=== PATIENT | female | born 1965 | race Caucasian/White ===

== ENCOUNTER → 2021-02-03 02:16 | Outpatient (CLI) | payer OTHER, SELFPAY ==
[2021-02-03 18:15] LABS: SARS-CoV-2 RNA PCR Negative
== END ==
PROVIDERS: PCP Family Medicine; Visit Provider Internal Medicine Gastroenterology
DX: Z01.812 Encounter for preprocedural laboratory examination (principal); Z20.822 Contact with and (suspected) exposure to COVID-19
CPT/HCPCS: C9803; U0003; U0005

== ENCOUNTER 2021-02-06 01:46 | Day surgery (SDC) | payer OTHER, SELFPAY ==
[2021-01-27 13:12] VITALS: BMI 24.2
[2021-02-06 09:16] VITALS: BP 130/64; PULSE 67; RESP 18; TEMP 36.4; O2SAT 99; BMI 24.5
--- NOTE | 2021-02-06 09:33 | PM.HPGS ---
History of Present Illness History of Present Illness Consent: Risks, benefits, and alternatives have been discussed and questions answered. Patient agrees to proceed with procedure. Chief complaint: hx of colon polyps Narrative: Cathi Cruz is a 55 year old female with a family history of colon cancer, Her father. She also had a polyp removed with 1 of her colonoscopies. Review of Systems Review of Systems: All systems reviewed & are unremarkable except as noted in HPI and below PMFSH Past Medical History Medical History Anxiety Bilateral adhesive capsulitis of shoulders BMI 26.0-26.9,adult History of breast cancer IBS (irritable bowel syndrome) PONV (postoperative nausea and vomiting) Surgical History Surgical History History of bilateral knee arthroplasty 2011, Dr. 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 Gender identity (if verbalized by the patient): Female Spiritual care concerns: No Meds Home Medications and Allergies Home Medications Medication Instructions Recorded Confirmed Type fexofenadine 180 mg tablet 90 mg PO DAILY 07/27/19 02/06/21 History citalopram 20 mg tablet 20 mg PO QPM #90 tablet 11/25/20 02/06/21 Rx cholecalciferol (vitamin D3) 50 mcg PO DAILY 01/27/21 02/06/21 History [Vitamin D3] melatonin 10 mg PO HS PRN 01/27/21 02/06/21 History Allergies Allergy/AdvReac Type Severity Reaction Status Date / Time No Known Allergies Allergy Mild Verified 02/06/21 09:07 Vital Signs Vital Signs - 24 hr 02/06/21 09:16 Temperature 36.4 C L Pulse Rate 67 Respiratory Rate 18 Blood Pressure 130/64 Pulse Oximetry 99 Exam Const: General: alert Orientation/consciousness: patient oriented x3 Resp: Auscultation: clear to auscultation bilaterally Cardio: Rhythm: regular rhythm GI: GI Palp: Yes Soft to palpation and No Tenderness to palpation present (GI) Neuro: General: patient oriented x3 Assessment and Plan Assessment and plan (1) Colon cancer screening: Code(s): Z12.11 - Encounter for screening for malignant neoplasm of colon Status: Acute Assessment and Plan: Colonoscopy with possible biopsy or polypectomy or cautery or injection of substances.
[2021-02-06] MEDS: LACTATED RINGERS 1,000 ML 150 ML IV CONT (09:36)
--- NOTE | 2021-02-06 09:36 | P.PNAN_ITS ---
Anes - Initial Pre Proc Eval Procedure: Operation Date: 02/06/21 10:00 Proposed Procedures p Screening Colonoscopy - Sanya Dodson MD Date/Time: 02/06/21 09:36 Surgeon: Sanya Dodson MD Pre Op Diagnosis: hx of colon polyps Patient Data Age: 55 Gender: F Height: 1.63 m Weight: 65 kg Last Vital Signs Temp 36.4 C L 02/06/21 09:16 Pulse 67 02/06/21 09:16 Resp 18 02/06/21 09:16 BP 130/64 02/06/21 09:16 Pulse Ox 99 02/06/21 09:16 Allergies Allergy/AdvReac Type Severity Reaction Status Date / Time No Known Allergies Allergy Mild Verified 02/06/21 09:07 Home Medications Medication Instructions Recorded Confirmed Type fexofenadine 180 mg tablet 90 mg PO DAILY 07/27/19 02/06/21 History citalopram 20 mg tablet 20 mg PO QPM #90 tablet 11/25/20 02/06/21 Rx cholecalciferol (vitamin D3) 50 mcg PO DAILY 01/27/21 02/06/21 History [Vitamin D3] melatonin 10 mg PO HS PRN 01/27/21 02/06/21 History Patient hx anesthesia problems: none Family hx anesthesia problems: none PMFSH Past Medical History Medical History Anxiety Bilateral adhesive capsulitis of shoulders BMI 26.0-26.9,adult History of breast cancer IBS (irritable bowel syndrome) PONV (postoperative nausea and vomiting) Surgical History Surgical History History of bilateral knee arthroplasty 2011, Dr. 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 Questions were solicited and answers provided to the satisfaction of the patient/family/POA.
[2021-02-06 10:35] VITALS: BP 98/53; PULSE 82; RESP 22; O2SAT 99
[2021-02-06 10:45] VITALS: BP 103/61; PULSE 64; RESP 14; O2SAT 100
[2021-02-06 10:55] VITALS: BP 121/58; PULSE 56; RESP 15; O2SAT 99
== END 2021-02-06 11:02 | disposition home or self-care (01) ==
PROVIDERS: PCP Family Medicine; Visit Provider Internal Medicine Gastroenterology
PROC: 0DJD8ZZ Inspection of Lower Intestinal Tract, Via Natural or Artificial Opening Endoscopic (ICD-10-PCS; CPT 45378; principal; 2021-02-06 10:00)
DX: Z12.11 Encounter for screening for malignant neoplasm of colon (principal); Z80.0 Family history of malignant neoplasm of digestive organs; K58.9 Irritable bowel syndrome, unspecified; F41.9 Anxiety disorder, unspecified; Z85.3 Personal history of malignant neoplasm of breast
CPT/HCPCS: 45378; C9803; J2704; J7120; U0003; U0005

== ENCOUNTER 2021-06-26 12:51 | Outpatient (CLI) | payer OTHER, SELFPAY ==
--- NOTE | ~2021-06-26 | DEXA_ITS ---
Bone Density Report Name: Cathi Cruz Age: 55 Sex: Female Ethnicity: White Date of : 1965 Indication: postmenopausal; height loss; cancer; Referring Provider: NEIDA GARDUNO Study: Bone densitometry was performed. Exam Date: June 26, 2021 Accession number: [id number] Bone Density: Region BMD T-score Z-score Classification AP Spine (L1-L4) 0.939 -1.0 0.2 Normal Femoral Neck (Left) 0.603 -2.2 -1.1 Osteopenia Total Hip (Left) 0.781 -1.3 -0.6 Osteopenia Total Hip Bilateral Avg 0.799 -1.2 -0.5 Osteopenia Femoral Neck (Right) 0.681 -1.5 -0.4 Osteopenia Total Hip (Right) 0.817 -1.0 -0.3 Normal World Health Organization criteria for BMD impression classify patients as: Normal (T-score at or above -1.0), Osteopenia (T-score between -1.0 and -2.5), or Osteoporosis (T-score at or below -2.5). 10-year Fracture Risk(1): Major Osteoporotic Fracture 8.9% Hip Fracture 1.2% Reported Risk Factors: [place] (), Neck BMD=0.603, BMI=25.3 (1) FRAX(R) Version 3.08. Fracture probability calculated for an untreated patient. Fracture probability may be lower if the patient has received treatment. Previous Exams: Region Exam Age BMD T-score BMD Change BMD Change Date g/cm2 vs Baseline vs Previous AP Spine(L1-L4) 06/26/2021 55 0.939 -1.0 -0.073(-7.3%)* -0.073(-7.3%)* 06/22/2016 50 1.012 -0.3 Total Hip(Left) 06/26/2021 55 0.781 -1.3 -0.080(-9.3%)* -0.080(-9.3%)* 06/22/2016 50 0.860 -0.7 Total Hip(Right) 06/26/2021 55 0.817 -1.0 -0.099(-10.8%) -0.099(-10.8%) 06/22/2016 50 0.915 -0.2 *Denotes significance at 95% confidence level, LSC for AP Spine = 0.022 g/cm2, LSC for Total Hip = 0.027 g/cm2 Clinical Information Provided by Patient: Has used the following medications: Vitamin D Has the following medical conditions: Cancer Patient maximum height was 65 Menopause Age: 49 No regular weight bearing exercise Does not regularly consume dairy products Drinks caffeinated beverages Onset of menses at age 12 Number of children 2 Impression: The patient has low bone mass, based on the Left Femoral Neck T-score. The patient has an estimated ten-year risk of hip fracture of 1.2% and an estimated ten-year risk of major fracture of 8.9%, based on the WHO FRAX algorithm. The BMD for the AP Spine(L1-L4) decreased, changing by -7.3% since the last DXA exam. The BMD for the Total Hip(Left) decreased, changing by -9.3% since the last DXA exam. Th
== END 2021-06-26 12:52 | disposition home or self-care (01) ==
LOC: ANHIMG 12:52
PROVIDERS: PCP Family Medicine; Visit Provider Physician Assistant
DX: M85.89 Other specified disorders of bone density and structure, multiple sites (principal)
CPT/HCPCS: 77080

== ENCOUNTER 2021-10-23 00:42 | Day surgery (SDC) | payer OTHER, SELFPAY ==
[2021-10-13 14:38] VITALS: BMI 24.8
--- NOTE | 2021-10-13 14:53 | PC.NURSE ---
Report to the Outpatient Waiting Room, entrance under the green pavilion located off [facility], at time 1130 on date 10/23/21. OR Time: 1330. - You will be asked a series of questions to screen for COVID 19 for your protection. - A mask is required within the hospital. - No visitors are allowed at this time. Preoperative COVID Testing Requirements: No COVID Test needed if: (proof is required; if not received patient will have Rapid Test prior to entry) - Patient has received COVID Vaccine at least 14 days prior to procedure date or - Patient has positive COVID test result within last 90 days of surgery date. COVID Test needed if above criteria is not met Patients may have clear liquids (water, carbonated beverages, clear teas, apple juice) until 3 hours prior to surgery with a maximum of 20 ounces. - No food from midnight until time of surgery Take the following medications with a SIP of water the morning of surgery: NONE Medications to discontinue per physician: VITAMINS/SUPPLEMENTS Date to take last dose: 10/19/21 Please no make-up, nail german, hairspray, perfume, deodorant, or body powder the day of surgery. No jewelry (including any body piercings) or valuables the day of surgery, leave them at home. Please take a shower or bath the night before, or the morning of, surgery with an antibacterial soap. Wear comfortable, loose fitting clothing. - Jewelry must be removed prior to entering the operating room. Rings and piercings that are not removed may be cut off. - The hospital will not accept responsibility for valuables. - Please leave all valuables, including medications, at home the day of surgery. If you are going home after surgery, a licensed team otr truck driver must drive you home. - NO public transportation without another adult. - We recommend that an adult stay with you for 24 hours following discharge. - We also recommend that you do not drive, make important decision, drink alcoholic beverages, or take any drugs that were not prescribed by your health care provider for at least 24 hours after your discharge time. Follow any additional instructions given to you from your surgeon. Telephone instructions given to RENU DURON and asked if any additional questions and then verbalized understanding. Patient advised to call surgeon office or pre surgery nurse liaison [phone] if any additional questions.
[2021-10-23] VITALS (10 sets, daily range): BP systolic 105–183; BP diastolic 58–90; PULSE 59–103; RESP 16–20; TEMP 36.2–36.6; O2SAT 94–100
--- NOTE | 2021-10-23 12:44 | WPDHPUPDATE1 ---
History and Physical Update Update Date/Time: 10/23/21 12:44 History and Physical has been reviewed, including an updated exam of the patient. There are NO changes in the patient's condition. Risks, benefits, and alternatives have been discussed and questions answered. Patient agrees to proceed with procedure.
[2021-10-23] MEDS: KETOROLAC 15 MG/ML VIAL (*BKC) IV PUSH (12:48)
[2021-10-23] MEDS: LACTATED RINGERS 1,000 ML 30 ML IV CONT ×3 (12:48→16:01)
--- NOTE | 2021-10-23 13:07 | SUR.PREOP ---
pt refused tylenol po,unable to swallow pills,dr sandra aware.
--- NOTE | 2021-10-23 13:08 | WPDANESEPPF ---
Anes - Initial Pre Proc Eval Procedure: Operation Date: 10/23/21 13:30 Proposed Procedures p Left Shoulder Arthroscopy, Subacromial Debridement - Giles Wong MD Date/Time: 10/23/21 13:08 Surgeon: Giles Wong MD Pre Op Diagnosis: left shoulder impingement Patient Data Age: 56 Gender: F Height: 1.63 m Weight: 66.9 kg Last Vital Signs Temp 36.6 C 10/23/21 12:11 Pulse 59 L 10/23/21 12:11 Resp 16 10/23/21 12:11 BP 143/62 H 10/23/21 12:11 Pulse Ox 100 10/23/21 12:11 Allergies Allergy/AdvReac Type Severity Reaction Status Date / Time oxycodone AdvReac Mild Nausea and Verified 10/23/21 12:29 Vomiting Home Medications Medication Instructions Recorded Confirmed Type fexofenadine 180 mg tablet 90 mg PO DAILY 07/27/19 10/23/21 History cholecalciferol (vitamin D3) 50 mcg PO DAILY 01/27/21 10/23/21 History [Vitamin D3] citalopram 20 mg tablet 20 mg PO QPM #90 tablet 07/19/21 10/23/21 Rx Patient hx anesthesia problems: post op nausea/vomiting Family hx anesthesia problems: none Results Review: All pre-operative results and documents have been reviewed as part of the pre-operative evaluation. [facility] Past Medical History Medical History Anxiety Bilateral adhesive capsulitis of shoulders BMI 26.0-26.9,adult History of breast cancer IBS (irritable bowel syndrome) PONV (postoperative nausea and vomiting) Surgical History Surgical History History of bilateral knee arthroplasty 2011, Dr. 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 Gender identity (if verbalized by the patient): Female Sexual Orientation (if Verbalized by the Patient): Straight or Heterosexual Spiritual care concerns: No Anes - Eval Final PreProcedure Day of Procedure 10/23/21 13:08 Patient weight: normal Heart: regular rate and rhythm Lungs: clear to auscultation Airway: Mallampati scale class II Neurological: alert and oriented Last oral intake: >/= 8 hours ASA classification: III Emergent: no Anesthetic plan: proceed Anesthesia type and monitoring: general ETT and standard monitoring Results Review: All pre-operative results and documents have been reviewed as part of the pre-operative evaluation. Informed Consent: The patient's anesthetic plan and its attendant risks and benefits were discussed with the patient/family/POA. Questions were solicited and answers provided to the satisfaction of the patient/family/POA.
--- NOTE | 2021-10-23 13:29 | WPDANESPNB ---
Anes - Peripheral Nerve Block Date/Time: 10/23/21 13:29 I have discussed with the patient/family/POA the placement of a peripheral nerve block for post-operative pain management, including associated risks, benefits, complications, and side effects. Alternative methods of post-operative analgesia were detailed. Questions were solicited and answers provided to the satisfaction of the patient/family/POA. Time-Out: A pre-procedural Time-Out was completed immediately before starting the procedure and confirmed: Patient Identification, Site, Procedure, Patient Position and the Availability of Requisite Equipment. Clinical Indications: Acute post-operative pain management requested by the operative surgeon. Nerve Block Insertion Note Anes-nerve block: interscalene left Patient position: other (sitting) Skin prep: chlorhexidine Needle: 22 gauge, stimulating, insulated echogenic needle. Needle length: 50 mm Technique: nerve stimulation lost at (mA) and ultrasound Technique comment: mid2mg, [id number],propofol 50mg Injectate: bupivacaine 0.5% with epi 5 mcg/ml (30ml) and dexamethasone (mg) (4) Observations: tolerated well Complications: none Procedure start time:: 1321 Procedure end time:: 1327
[2021-10-23] MEDS: ceFAZolin 2 GM/D5W 50 ML 2 GM/50 ML BAG IVPB (13:36)
[2021-10-23] MEDS: BUPIVACAINE/EPINEPHRINE 0.25% 10 ML VIAL 20 ML INFILTRATE (14:32)
--- NOTE | 2021-10-23 15:00 | W.PM.PROC2 ---
Procedure Note - Detailed Date of Procedure 10/23/21 Pre-op Diagnosis left shoulder impingement Post-op Diagnosis same Procedure Performed Left shoulder arthroscopy with arthroscopic subacromial decompression Surgeon Giles Wong MD Machine Operations Supervisor Svetlana Gold Anesthesia general and regional Description of Procedure The patient was identified and proper site identified. In the preop holding area the anesthesia team performed a right upper extremity block. She was then taken to the operating, transferred to the OR table and after general anesthetic induction and intubation placed into the semi beach chair position in the usual manner for a right shoulder procedure. Her head was secured taking care to neither rotate or extend the head neck. The right upper extremity was prepped and draped free in the usual sterile fashion. 30 cc of 1:100,000 epinephrine and saline solution was injected into the subacromial space. 10 cc of 0.25% Marcaine and epinephrine solution was injected in the area of the portals. Posterior portal was established and under direct visualization anterior outflow was created. The shoulder was introduced into the shoulder joint. Articular cartilage was in good shape as was the labrum, biceps anchor and rotator cuff insertion. The scope and outflow were then moved to the subacromial space and a lateral working portal created. There is quite a bit of thickened subacromial bursal tissue and a hypertrophic insertion of the CA ligament. The bursa was extensively debrided and the CA ligament insertion was released and resected as well with a combination of shaver and ArthroCare Wand. The Wand was used for hemostasis as well. The entire surgical area was irrigated with saline solution and the equipment was removed. Portals were closed with three 0 nylon suture and sterile dressings applied. He tolerated the procedure well. He was awakened, extubated and taken to recovery area in stable condition. There were no known intraoperative complications. Estimated blood loss was negligible. He received perioperative antibiotics. Estimated Blood Loss 5 Drains No Packing No Pathology none sent Complications No immediate complications Condition stable Disposition PACU
[2021-10-23] MEDS: SCOPOLAMINE 1.5 MG PATCH TRANSDERM (15:40)
[2021-10-23] MEDS: ONDANSETRON INJ 4 MG/2 ML VIAL IV PUSH (15:40)
== END 2021-10-23 17:45 | disposition home or self-care (01) ==
PROVIDERS: PCP Family Medicine; Visit Provider Orthopaedic Surgery
PROC: (CPT 29805; principal; 2021-10-23 13:30)
DX: M75.42 Impingement syndrome of left shoulder (principal); G89.18 Other acute postprocedural pain; M25.512 Pain in left shoulder; F41.9 Anxiety disorder, unspecified; Z85.3 Personal history of malignant neoplasm of breast; K58.9 Irritable bowel syndrome, unspecified
CPT/HCPCS: 64415; 29822; A4565; A9270; J0171; J0330; J0690; J1100; J1885; J2250; J2405; J2704; J3010; J7120

== ENCOUNTER 2021-11-27 08:15 | Outpatient (RCR) | payer OTHER, SELFPAY ==
[2021-10-25 10:34] VITALS: BP_SYST 100
--- NOTE | 2021-10-25 11:08 | PTOPEVAL ---
PHYSICAL THERAPY EVALUATION AND PLAN OF CARE Thank you for referring Cathi Cruz to [facility] [place].? The patient is scheduled to be seen for therapy? 2x/week for 5 weeks. Please review, sign, date and return this plan of care RAYMUNDO. I agree with and certify that the following plan of care is medically necessary. Referring Physician Date Attending Provider: Giles Wong MD Evaluation Outpatient Past Medical History Cardiovascular History Hx Hypercholesterolemia Yes Gastrointestinal History Hx Hemorrhoids Yes: SURGERY TO REMOVE Hx Irritable Bowel Yes Genitourinary History Hx Genitourinary Disorders No Significant History Musculoskeletal History Hx Orthopedic Surgery Yes: BILATERAL KNEE ARTHROSCOPY Hx Other Musculoskeletal Disorders Yes: JOINT PAIN Hematological History Hx Anemia Yes Endocrine History Hx Endocrine Disorders No Significant History HEENT History Hx Epistaxis Yes: NASAL CAUTERY Integumentary History Hx Skin Disorders No Significant History Reproductive History Hx Post Menopausal Yes Hx Other Reproductive Disorders Yes: LT BREAST LUMPECTOMY FOR BREAST CA Psychosocial History Hx Anxiety Yes Pain History Has Past Pain Affected Your Daily Life Yes Anesthesia History Hx Post-Op Nausea/Vomiting Yes Other History Hx Cancer Yes: BREAST CA Hx Radiation Therapy Yes Diagnosis left shoulder arthroscopy with subacromial decompression Onset 10/23/21 Subjective Information Prior to surgery she was Query Text:As Reported By Patient/ having a lot of difficulty Family reaching behind her back and doing things like pulling up her pants. Had surgery on 10/23 and states that today her shoulder hurts. Wore the sling for about a day and a half but otherwise does not feel like she needs to wear it. Self Report Pain Assessment Left Shoulder(s) Reported Pain Level 4 Pain Description Aching,Incisional Pain Frequency Acute,Continuous Other Pain Aggravating Factors using the arm Pain Score Pain Score 4: Self Report Interventions Used Interventions Used By Clinicians Exercise,Ice,Manual Therapy Techniques Upper Extremity Range of Motion Scapular/ Shoulder Range of Motion Left Shoulder Flexion - Passive 125 Shoulder Abduction - Passive 100 Shoulder Lateral Rotation - Passive 45 Upper Extremity Muscle Str
[2021-11-22 10:05] VITALS: BP_SYST 141
--- NOTE | 2021-11-22 10:43 | PTOPEVAL ---
PHYSICAL THERAPY DISCHARGE NOTE Thank you for referring Cathi Cruz to [facility].? Cathi is scheduled for one more visit to teach her how to perform passive stretching of left shoulder. Please review, sign, date and return this plan of care RAYMUNDO. I agree with and certify that the following plan of care is medically necessary. Referring Physician Date Attending Provider: Giles Wong MD Diagnosis left shoulder arthroscopy with subacromial decompression Onset 10/23/21 Subjective Information States that she is continuing Query Text:As Reported By Patient/ to have pain in the left Family shoulder. She is having a difficult time sleeping. She is able to do yard work ( raking, picking up sticks) with increased pain after. Self Report Pain Assessment Left Shoulder(s) Reported Pain Level 3 Pain Description Aching,Soreness Pain Frequency Acute,Continuous Pain Score Pain Score 3: Self Report Interventions Used Interventions Used By Clinicians Exercise,Manual Therapy Techniques Upper Extremity Range of Motion Scapular/ Shoulder Range of Motion Left Shoulder Flexion - Active 140 Shoulder Abduction - Passive 141 Shoulder Medial Rotation - Active L1 Query Text:Reach Behind the Back Shoulder Lateral Rotation - Active 65 Scapular/Shoulder Range of Motion right shoulder abduction; 145 Comments right shoulder external rotation: 65 Upper Extremity Muscle Strength Testing Scapular/Shoulder Right Shoulder Flexion Strength 4 Good Shoulder Abduction Strength 4 Good Shoulder Medial Rotation Strength 5 Normal Shoulder Lateral Rotation Strength 5 Normal Left Shoulder Flexion Strength 4- Good - Shoulder Abduction Strength 4- Good - Shoulder Medial Rotation Strength 5 Normal Shoulder Lateral Rotation Strength 5 Normal Manual Therapy Manual Therapy Side Left Patient Position Supine Manual Therapy Treatment Passive Stretching,Soft Tissue Mobilization Treatment Comments -GHJ mobilizations gr 3 at Query Text:Include Technique and 90deg abd into superior- Result of Technique inferior - scapular pinning with shoulder flexion to increase end range of motion with improved movement - sidelying scapular mobilization with STM into scapular blade; arm sweep x3x2
== END 2022-01-08 13:06 | disposition home or self-care (01) ==
LOC: ANHPT 08:15
PROVIDERS: PCP Family Medicine; Referring Provider Orthopaedic Surgery; Visit Provider Orthopaedic Surgery
DX: Z48.89 Encounter for other specified surgical aftercare (principal); Z98.890 Other specified postprocedural states
CPT/HCPCS: 97110; 97112; 97140; 97162

== ENCOUNTER → 2022-02-19 13:51 | Outpatient (CLI) | payer OTHER, SELFPAY ==
--- NOTE | ~2022-02-19 | US_ITS ---
EXAMINATION: US soft tissue LE RT DATE: 02/19/2022 14:08 INDICATION: Localized swelling, mass or lump at the right lower limb at the anterior proximal right l ower limb. TECHNIQUE: Multiple grayscale and Doppler ultrasound images of the region of concern at the anterior proximal right lower leg were obtained. COMPARISON: None FINDINGS: Normal appearance to the subcutaneous fat and underlying proximal tibia and musculature at the region of concern. No lipoma or other abnormal masses or fluid collections identified. IMPRESSION: 1. Normal study. No correlate identified for the reported palpable abnormality of concern at the ante rior proximal right lower leg. Reviewed, dictated and finalized at location B. IMPRESSION: 1. Normal study. No correlate identified for the reported palpable abnormality of concern at the anterior proximal right lower leg.
== END ==
PROVIDERS: PCP Family Medicine; Visit Provider Nurse Practitioner Family
DX: R22.41 Localized swelling, mass and lump, right lower limb (principal)
CPT/HCPCS: 76882

== ENCOUNTER 2023-12-06 09:33 | Outpatient (CLI) | payer BC, SELFPAY ==
--- NOTE | ~2023-12-06 | XR_ITS ---
EXAMINATION: XR ankle LT min 3V DATE: 12/06/2023 09:43 INDICATION: Posterolateral left ankle pain TECHNIQUE: Anteroposterior, oblique, mortise, and lateral views of the left ankle were obtained. COMPARISON: None. FINDINGS: Alignment is normal. No fracture. Mild osteoarthritis at the left ankle with mild subarticular cystl gato change at the lateral aspect of the talus along its articulation with the lateral malleolus. No a nkle joint effusion. The soft tissues are unremarkable. IMPRESSION: 1. 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 Reviewed, dictated and finalized at location A. IMPRESSION: 1. 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
== END 2023-12-06 09:34 ==
PROVIDERS: PCP Family Medicine; Visit Provider Physician Assistant Medical
DX: M25.472 Effusion, left ankle (principal); M19.072 Primary osteoarthritis, left ankle and foot
CPT/HCPCS: 73610

== ENCOUNTER 2023-12-24 14:32 | Outpatient (CLI) | payer BC, SELFPAY ==
--- NOTE | ~2023-12-24 | DEXA_ITS ---
Bone Density Report Name: RENU DURON Age: 58 Sex: Female Ethnicity: White Date of : 1965 Indication: osteopenia; height loss; cancer; postmenopausal Referring Provider: NEIDA BROWN Study: Bone densitometry was performed. Exam Date: December 24, 2023 Accession number: [id number] Bone Density: Region BMD T-score Z-score Classification AP Spine(L1-L4) 0.890 -1.4 -0.1 Osteopenia Femoral Neck (Left) 0.621 -2.1 -0.8 Osteopenia Total Hip (Left) 0.774 -1.4 -0.5 Osteopenia Femoral Neck (Right) 0.624 -2.0 -0.8 Osteopenia Total Hip (Right) 0.816 -1.0 -0.1 Normal Total Hip Mean 0.795 -1.2 -0.3 Osteopenia World Health Organization criteria for BMD impression classify patients as: Normal (T-score at or above -1.0), Osteopenia (T-score between -1.0 and -2.5), or Osteoporosis (T-score at or below -2.5). 10-year Fracture Risk(1): Major Osteoporotic Fracture 9.4% Hip Fracture 1.2% Reported Risk Factors: [place] (), Neck BMD=0.621, BMI=26.1 (1) FRAX(R) Version 3.08. Fracture probability calculated for an untreated patient. Fracture probability may be lower if the patient has received treatment. Previous Exams: Region Exam Age BMD T-score BMD Change BMD Change Date g/cm2 vs Baseline vs Previous AP Spine (L1-L4) 12/24/2023 58 0.890 -1.4 -0.122 (-12.1% -0.049 (-5.2%) 06/26/2021 55 0.939 -1.0 -0.073 (-7.3%) -0.073 (-7.3%) 06/22/2016 50 1.012 -0.3 Total Hip(Left) 12/24/2023 58 0.774 -1.4 -0.086 (-10.0% -0.006 (-0.8%) 06/26/2021 55 0.781 -1.3 -0.080 (-9.3%) -0.080 (-9.3%) 06/22/2016 50 0.860 -0.7 Total Hip(Right) 12/24/2023 58 0.816 -1.0 -0.099 (-10.8% 0.000 (0.0%) 06/26/2021 55 0.817 -1.0 -0.099 (-10.8% -0.099 (-10.8% 06/22/2016 50 0.915 -0.2 *Denotes significance at 95% confidence level, LSC for AP Spine = 0.022 g/cm2, LSC for Total Hip = 0.027 g/cm2 Clinical Information Provided by Patient: Has used the following medications: Vitamin D Has the following medical conditions: Cancer Patient maximum height was 65 Menopause Age: 50 No regular weight bearing exercise Drinks caffeinated beverages Onset of menses at age 12 Number of children 2 Impression: The patient has low bone mass, based on the Left Femoral Neck T-score. The patient has an estimated ten-year risk of hip fracture of 1.2% and an estimated ten-year risk of major fracture of 9.4%, based on the WHO FRAX
== END 2023-12-24 14:33 | disposition home or self-care (01) ==
LOC: ANHIMG 14:34
PROVIDERS: PCP Family Medicine; Visit Provider Physician Assistant
DX: M85.89 Other specified disorders of bone density and structure, multiple sites (principal)
CPT/HCPCS: 77080

== ENCOUNTER 2024-09-28 23:07 | Emergency (ER) | payer BC, SELFPAY ==
--- OUTSIDE RECORDS SUMMARY | 2024-09-28 23:11 | XMS_ITS | Referral Summary ---
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 Name Role Phone Grey Ayala MD Primary Care Provider Allergies No known active allergies Medications ALPRAZolam (XANAX) 0.25 mg tablet TK 1 T PO QD PRN 0 11/04/2018 Active citalopram (CeleXA) 20 mg tablet TK 1 T PO D 3 01/04/2019 Active Active Problems Problem Noted Date Diagnosed Date History of left breast cancer 01/22/2019 Urticaria 04/12/2014 Overview (12/06/2016): Urticaria Antinuclear factor positive 04/12/2014 Overview (12/07/2016): Positive FIFI Physical urticaria 07/08/2012 Overview (12/07/2016): Hives, physical Vitamin D deficiency 07/08/2012 Overview (12/07/2016): Vitamin d deficiency Knee pain 07/08/2012 Overview (12/07/2016): Knee pain, bilateral Gastroesophageal reflux disease 07/08/2012 Overview (12/07/2016): GERD (gastroesophageal reflux disease) Altered bowel function 07/08/2012 Overview (12/07/2016): Change in bowel habits Rhinitis 07/08/2012 Overview (12/07/2016): Rhinitis Autoimmune thyroiditis 07/08/2012 Overview (12/07/2016): Autoimmune thyroiditis Palpitations 07/08/2012 Overview (12/07/2016): Palpitations Immunizations Name Administration Dates Next Due Influenza, Trivalent, IM (MDV) 06/10/2014,2012 Tdap 06/17/2014 Social History Tobacco Use Types Packs/Day Years Used Date Smoking Tobacco: Never Tobacco Cessation:Counseling Given: Not Answered Alcohol Use Standard Drinks/Week Comments No 0 (1 standard drink = 0.6 oz pur e alcohol) Comments Unknown Sex and Gender Information Value Date Recorded Sex Assigned at Not on file 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 Gender Identity Not on file Sexual Orientation Not on file Last Filed Vital Signs Vital Sign Reading Time Taken Comments Blood Pressure 120/76 06/17/2014 3:08 PM CDT Pulse 60 06/17/2014 3:08 PM CDT Temperature - - Respiratory Rate - - Oxygen Saturation - - Inhaled Oxygen Concentration - - Weight 66.7 kg (147 lb 0.8 oz) 04/30/2023 11:54 AM CDT Height 165.1 cm (5' 5 ) 04/30/2023 11:54 AM CDT Body Mass Index 24.47 04/30/2023 11:54 AM CDT Plan of Treatment Not on file Procedures Procedure Name Priority Date/Time Associated Diagnosis Comments SCREENING MAMMOGRAM BILATERAL W NATHALIA Schedule Routine, Read Routine (OP Routine) 05/12/2024 11:54 AM CDT History of left breast cancer from Last 3 Months or Most Recently Relevant to Health Maintenance Results * Screening Mammogram Bilateral W Nathalia (05/12/2024 11:54 AM CDT) Anatomical Region Laterality Modality Breast Bilateral Mammography Narrative 05/13/2024 8:41 AM CDT Mammogram Technique: Bilateral Digital Breast Tomosynthesis, Bilateral C-view 2D Screening mammogram. ??Views obtained: ??bilateral craniocaudal and bilateral mediolateral oblique. ??Computer Aided Detection was performed. Mammogram Findings: The present examination has been compared to prior imaging studies performed at [facility] on 04/24/2022, 04/30/2023 and 05/30/2023. There are scattered areas of fibroglandular density. There are post breast conservation therapy changes in the left breast. There is no suspicious abnormality in either breast. Impression: There is no mammographic evidence of malignancy. Annual screening mammography is recommended. OVERALL FINAL ASSESSMENT: BI-RADS CATEGORY 2: ??Benign. Procedure Note Chanelle Dave MD - 05/13/2024 Mammogram Technique: Bilateral Digital Breast Tomosynthesis, Bilateral C-view 2D Screening mammogram. Views obtained: bilateral craniocaudal and bilateral mediolateral oblique. Computer Aided Detection was performed. Mammogram Findings: The present examination has been compared to prior imaging studies performed at [facility] on 04/24/2022, 04/30/2023 and 05/30/2023. There are scattered areas of fibroglandular density. There are post breast conservation therapy changes in the left breast. There is no suspicious abnormality in either breast. Impression: There is no mammographic evidence of malignancy. Annual screening mammography is recommended. OVERALL FINAL ASSESSMENT: BI-RADS CATEGORY 2: Benign. Vidya Patterson CAR MOVER IMG MAMMO PROCEDURES Final Result from Last 3 Months or Most Recently Relevant to Health Maintenance Insurance [facility] Address: [id number] [place] [id number] [facility] HMO [employer] ACCESS CHOICE ANTHEM ACCESS CHOICE Care Teams Oven Heater Helper Relationship Specialty Start Date End Date Grey Ayala MD [address] [facility] [address] [place] [address] PCP - General 12/27/17
--- OUTSIDE RECORDS SUMMARY | 2024-09-28 23:11 | XMS_ITS | Data Portability ---
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 Patient will come back in a year unless there are new symptoms. [email or web address] Not available 04/22/2020 16:11:36 04/27/2021 04/27/2021 Annual gynecological exam performed. Patient will come back in a year unless there are new symptoms. Not available 04/27/2021 16:18:56 04/30/2022 04/30/2022 Annual gynecological exam performed. Patient will come back in a year unless there are new symptoms. Not available 04/30/2022 12:14:51 05/10/2023 05/10/2023 Annual gynecological exam performed. Patient will come back in a year unless there are new symptoms. [email or web address] Not available 05/10/2023 09:14:00 06/22/2024 06/22/2024 Annual gynecological exam performed. Patient will come back in a year unless there are new symptoms. Not available 06/22/2024 10:32:19 Plan of Treatment Reminders Order Date Submit Date Provider Last Modified By Organization Details Last Modified Time Details Appointments None record ed. Lab None record ed. Referral None record ed. Procedures None record ed. Surgeries None record ed. Imaging None record ed. Medication Orders None record ed. Patient TargetsNo targets recorded. Patient Instructions Encounter Date Encounter Id Patient Instructions Last Modified By Organization Details Last Modified Time 04/22/2020 [id number] [email or web address] Not available 16:39:56 Reason for Referral None Reported. Results Created Date Observation Date Name Description Value Unit Range Abnormal Flag Note LastModifiedBy Organization Detail LastModifiedTime 04/22/20 20 04/26/2020 pap, LB Pap test thin prep Negati ve for Intrae pithel ial Lesion or Malign pipo normal ACCES ASHOK #: [id number] Sourc e: Cervi melissa/E ndoce rvica l LMP: 09/02 Date Taken : 04/22 Speci men Type: ThinP rep Vial Date Repor genie: 2019 Clini melissa Data: Cytot ech: Taya padgett CT( CP) Date Repor genie: 2019 Speci men Adequ acy: Satis facto ry for evalu ation Endoc ervic al/tr ansfo rmati on zone compo nent prese nt Gener al Categ oriza tion: NEGAT MEENAKSHI FOR INTRA EPITH ELIAL LESIO N OR MALIG SACHI Inter preta tion/ Resul t: Atrop hy This speci men has been chris zed by the ThinP rep Imagi ng Syste m, an inter activ e compu ter syste m which merissa ts the lab in the scree jyothi of ThinP rep Pap Test slide [facility] imagi ng, the slide was revie wed by a Cytot echno logis t and/o r Patho logis t. D N A A S S A Y S R E P O R T TEST NAME RESUL TS ----- ---- ----- -- HPV High Risk Scree n (TMA) ThinP rep Vial The human papil lomav irus (HPV) High Risk Scree n is an FDA-a pprov ed in-vi tro ampli fied nucle ic acid test for the quali tativ e detec tion of E6/E7 viral mRNA. Resul ts thomas luis be corre lated with patie nt prese ntati on, histo ry, cervi melissa cytol ogy and other clini melissa and labor atory findi ngs. See https ://[employer]/s ites/ defau lt/fi les/2 018-0 3/AW- 67448 _002_ 01.pd f for [facility] er infor matio n. Test perfo rmed by [facility], [address], [place] [address] , Gaby Hunt ra, , Labor atory Dire tor. HPV High Risk *HPV NOT DETEC GENIE (TYPE S 16, 18, 31, 33, 35, 39, 45, 51, 52, 56, 58, 59, 66, 68) *HPV: The human papil lomav irus (HPV) High Risk Brett cutler is an FDA-a pprov ed in-vi tro ampli fied nucle ic acid test for the quali tativ e detec tion of E6/E7 viral mRNA. [facility] shoul d be corre lated with patie nt prese ntati on, histo ry, cervi melissa cytol ogy and other clini melissa and labor atory findi ngs. See https ://[employer]/s ites/ defau lt/fi 018-0 3/- 91509 _002_ 01.pd f for [facility] er infor matio n. Test perfo rmed by [facility], [address], [place] [address] , Gaby Hunt ra, , Labor atory Dire tor. End of Repor t Techn ical servi phyllis provi ded by [facility], [address] [place] [address] Jose Jones MD, Labor Madroney Dire tor. Case revie wed and diagn osis rende red at [facility], [address] [place] [address] Jose Jones MD, Labor atory Dire tor. CONFI DENTI AL Not Available [facility] ([facility]) [address], [place], [address], 04/26/2020 09:02:30 04/22/20 20 04/24/2020 HPV DNA, high- risk HPV high risk NOT DETECT ED normal Not Available [facility] ([facility]) [address], [place], [address], 04/26/2020 09:02:31 04/27/20 21 04/27/2021 IMAGE GUIDE D PAP AND HPV REGAR DLESS image guided Pap, HPV regardless of Pap result SEE RESULT S BELOW CASE REPOR T: Cytol ogy Gynec ologi melissa Repor t Case: [id number] Autho cynthia sevilla Provi leonela: Luciano Bryant Colle cted: 04/27 1614 [employer] PAR[employer]OFESSIONAL Order ing Locat ion: [place] Patho logy Recei manuel: 04/28 0013 First Scree n: Lore Mayes, CT Speci men: Scree jyothi Pap - Image d, Cervi x STATE MENT OF ADEQU ACY: Satis facto ry for evalu ation Trans forma tion zone compo nent canno t be defin itive ly ident ified due to the prese nce of atrop hy or other hormo nal teresa es FINAL DIAGN OSIS: Negat meenakshi for Intra epith elial Lesio n or Oscar owen (NIL) Atrop hic cell irvin yun Elect karin ortiz micheal d by Lore Mayes, CT on 2020 at 10:41 PM ----- ----- ----- ----- ----- ----- ----- ----- ----- ----- ----- ----- ----- ----- ----- ----- ----- ---- HPV RESUL TS: HPV mRNA E6/E7 : No HPV mRNA Detec genie NOTE: This high risk HPV mRNA assay detec ts fourt een high- risk HPV types (16, 18, 31, 33, 35, 39, 45, 51, 52, 56, 58, 59, 66, 68) witho ut diffe renti ation . COMME NT: Note: This speci men was revie wed by a Cytot echno logis t and/o r Patho logis t (as indic ated in this repor t) after evalu ation using the Thinp rep Imagi ng Syste m. CLINI MELISSA INFOR MATIO N: Menst rual Statu s: LMP (if appli cable ): 015 Clini melissa Histo ry/Pr eviou s Pap: Type of Neopl marcelino (if appli cable ): Signi fican t Clini melissa Findi ngs: Other Histo ry: Hormo funmi (if appli cable ): PAP EDUCA BETH L NOTE: The Pap Test is a scree jyothi test with an inher ent false negat meenakshi rate. Liqui d-bas e sampl ing may decre ase, but will not elimi jamee, false negat meenakshi resul ts. A negat meenakshi resul t does not precl ude the prese nce and/o r devel opmen t of disea se, since the prese nce of abnor mal cells in the sampl e depen ds on the locat ion of the lesio n and sampl ing techn ique. Bella nued regul ar scree jyothi is the best metho d of cance r preve ntion . If repor genie cytol ogic findi ng do not corre late with physi melissa and/o r histo rical findi ngs, furth er inves tigat ion is recom anuja d, as clini chante warra nted. Not Available [facility] (Lab) [address], [place], [address], 04/29/2021 23:44:50 04/30/20 22 04/30/2022 IMAGE GUIDE D PAP AND HPV REGAR DLESS image guided Pap, HPV regardless of Pap result SEE RESULT S BELOW CASE REPOR T: Cytol ogy Gynec ologi melissa Repor t Case: [id number] Autho cynthia sevilla Provi leoneal: Luciano Bryant Colle cted: 04/30 1600 [employer]OFESSION[employer] Order ing Locat ion: [place] Patho landen Recei manuel: 05/01 0329 First Scree n: Bekah Ribeiro Rescr een: Shayna payne, Dany ennis, CT Speci men: Scree jyothi Pap - Image d, Cervi x STATE MENT OF ADEQU ACY: Satis facto ry for evalu ation Trans forma tion zone compo nent canno t be defin itive ly ident ified due to the prese nce of atrop hy or other hormo nal teresa es FINAL DIAGN OSIS: Negat meenakshi for Intra epith elial Lesio n or Oscar owen (NIL) . Atrop hic cell irvin rn. Elect karin ortiz micheal d by Shayna payne, Dany ennis, CT on 022 at 9:13 PM ----- ----- ----- ----- ----- ----- ----- ----- ----- ----- ----- ----- ----- ----- ----- ----- ----- ---- HPV RESUL TS: HPV mRNA E6/E7 : No HPV mRNA Detec genie NOTE: This high risk HPV mRNA assay detec ts fourt een high- risk HPV types (16, 18, 31, 33, 35, 39, 45, 51, 52, 56, 58, 59, 66, 68) witho ut diffe renti ation . COMME NT: Note: This speci men was revie wed by a Cytot echno logis t and/o r Patho logis t (as indic ated in this repor t) after evalu ation using the Thinp rep Imagi ng Syste m. CLINI MELISSA INFOR MATIO N: Menst rual Statu s: LMP (if appli cable ): Clini melissa Histo ry/Pr eviou s Pap: Type of Neopl marcelino (if appli cable ): Signi fican t Clini melissa Findi ngs: Other Histo ry: Hormo funmi (if appli cable ): PAP EDUCA BETH L NOTE: The Pap Test is a scree jyothi test with an inher ent false negat meenakshi rate. Liqui d-bas ed sampl ing may decre ase, but will not elimi jamee, false negat meenakshi resul ts. A negat meenakshi resul t does not precl ude the prese nce and/o r devel opmen t of disea se, since the prese nce of abnor mal cells in the sampl e depen ds on the locat ion of the lesio n and sampl ing techn ique. Bella nued regul ar scree jyothi is the best metho d of cance r preve ntion . If repor genie cytol ogic findi ng do not corre late with physi melissa and/o r histo rical findi ngs, furth er inves tigat ion is recom anuja d, as clini chante huerta nted. Not Available [facility] [address] [place], [address], 05/04/2022 22:15:21 05/10/20 23 05/10/2023 IMAGE GUIDE D PAP AND HPV REGAR DLESS image guided Pap, HPV regardless of Pap result SEE RESULT S BELOW CASE REPOR T: Cytol ogy Gynec ologi melissa Repor t Case: [id number] Autho cynthia sevilla Provi leonela: Luciano Bryant Colle cted: 05/10 1421 [employer] PAR[employer]OFESSIONAL Order ing Locat ion: [place] Patho logy Recei manuel: 05/13 0702 First Scree n: Franchesca García ret, CT Speci men: Scree jyothi Pap - Image d, Cervi x STATE MENT OF ADEQU ACY: Satis facto ry for evalu ation Trans forma tion zone compo nent canno t be defin itive ly ident ified due to the prese nce of atrop hy or other hormo nal teresa es FINAL DIAGN OSIS: Negat meenakshi for Intra epith elial Lesio n or Malig sachi (NIL) . Atrop hic cell irvin yun. Ken ortiz micheal d by Franchesca García ret, CT on 2022 at 10:35 AM ----- ----- ----- ----- ----- ----- ----- ----- ----- ----- ----- ----- ----- ----- ----- ----- ----- ---- HPV RESUL TS: HPV mRNA E6/E7 : No HPV mRNA Detec genie NOTE: This high risk HPV mRNA assay detec ts fourt een high- risk HPV types (16, 18, 31, 33, 35, 39, 45, 51, 52, 56, 58, 59, 66, 68) witho ut diffe renti ation . COMME NT: This speci men was revie wed by a Cytot echno logis t and/o r Patho logis t (as indic ated in this repor t) after evalu ation using the Thinp rep Imagi ng Syste m. CLINI MELISSA INFOR MATIO N: Menst rual Statu s: LMP (if appli cable ): Clini melissa Histo ry/Pr eviou s Pap: Type of Neopl marcelino (if appli cable ): Signi fican t Clini melissa Findi ngs: Other Histo ry: Hormo funmi (if appli cable ): PAP EDUCA BETH L NOTE: The Pap Test is a scree jyothi test with an inher ent false negat meenakshi rate. Liqui d-bas ed sampl ing may decre ase, but will not elimi jamee, false negat meenakshi resul ts. A negat meenakshi resul t does not precl ude the prese nce and/o r devel opmen t of disea se, since the prese nce of abnor mal cells in the sampl e depen ds on the locat ion of the lesio n and sampl ing techn ique. Bella nued regul ar scree jyothi is the best metho d of cance r preve ntion . If repor genie cytol ogic findi ng do not corre late with physi melissa and/o r histo rical findi ngs, fur er inves tigat ion is recom anuja d, as clini chante warra nted. Not Available [facility] (Lab) [address], [place], [address], 05/14/2023 11:38:07 06/22/20 24 06/22/2024 IMAGE GUIDE D PAP AND HPV REGAR DLESS image guided Pap, HPV regardless of Pap result SEE RESULT S BELOW CASE REPOR T: Cytol ogy Gynec ologi melissa Repor t Case: [id number] Autho cynthia di Provi leonela: Geoff Danielson MD Colle cted: 06/22 1320 Order ing Locat ion: [place] Patho logy Recei manuel: 06/23 0643 First Scree n: Hung Michael, CT Speci men: Brett roe Pap - Image d, Cervi x STATE MENT OF ADEQU ACY: Satis facto ry for evalu ation Trans forma tion zone compo nent canno t be defin itive ly ident ified due to the prese nce of atrop hy or other hormo nal teresa es ----- ----- ----- ----- ----- ----- ----- ----- ----- ----- ----- ----- ----- ----- ----- ----- ----- ---- FINAL DIAGN OSIS: Negat meenakshi for Intra epith elial Jenna cutler or Oscar owen (NIL) . Atrop kaia bryan rn. Elect karin burton d by Hung Michael, CT on 06/27 at 6:37 AM ----- ----- ----- ----- ----- ----- ----- ----- ----- ----- ----- ----- ----- ----- ----- ----- ----- ---- HPV RESUL TS: HPV mRNA E6/E7 : No HPV mRNA Detec genie NOTE: This high risk HPV mRNA assay detec ts fourt een high- risk HPV types (16, 18, 31, 33, 35, 39, 45, 51, 52, 56, 58, 59, 66, 68) witho ut diffe renti ation . COMME NT: This speci men was revie wed by a Cytot echno logis t and/o r Patho logis t (as indic ated in this repor t) after evalu ation using the Thinp rep Imagi ng Syste m. CLINI MELISSA INFOR MATIO N: Menst rual Statu s: LMP (if appli cable ): Clini melissa Histo ry/Pr eviou s Pap: Type of Neopl marcelino (if appli cable ): Signi fican t Clini melissa Findi ngs: Other Histo ry: Hormo funmi (if appli cable ): PAP EDUCA BETH L NOTE: The Pap Test is a scree jyothi test with an inher ent false negat meenakshi rate. Liqui d-bas ed sampl ing may decre ase, but will not elimi jamee, false negat meenakshi resul ts. A negat meenakshi resul t does not precl ude the prese nce and/o r devel opmen t of disea se, since the prese nce of abnor mal cells in the sampl e depen ds on the locat ion of the lesio n and sampl ing techn ique. Bella nued regul ar scree jyothi is the best metho d of cance r preve ntion . If repor genie cytol ogic findi ng do not corre late with physi melissa and/o r histo rical findi ngs, furth er inves tigat ion is recom anuja d, as clini chante warra nted. Not Available [facility] (Lab) [address], [place], [address], 06/27/2024 07:42:36 04/10/20 21 04/07/2021 MAMMO , scree jyothi, bilat eral No observ ation record ed. [facility] Breast [address], [address], 04/11/2021 12:16:02 Result Notes None recorded. 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 1 15:07:02 Malaise and fatigue [id number] Completed 201404/27/2021 Fatigue / Malaise;R ecorded Elsewhere : No Locati on: [facility] So urce: EHR Chron ic: N Practic e ID: 0001 Bill able Time: 11:00:00 AM Sofia Escobedo [facility] 1 15:06:44 Postmeno pausal bleeding [id number] Completed 201604/27/2021 Postmenop ausal bleeding; Recorded Elsewhere : No Locati on: [facility] So urce: EHR Chron ic: N Practic e ID: 0001 Bill able Time: 04:45:00 PM Sofia Escobedo [facility] 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 1 15:07:03 Blood leukocyt e number above referenc e range [id number] Completed 201804/27/2021 Elevated white blood cell count, unspecifi ed;Record ed Elsewhere : No Locati on: [facility] So urce: EHR Chron ic: N Practic e ID: 0001 Bill able Time: 05:00:00 PM Sofia Escobedo [facility] 1 15:06:42 Screenin g for malignan t neoplasm of cervix Completed 201704/27/2021 Screening for cervical ca;Record ed Elsewhere : No Locati on: [facility] So urce: EHR Chron ic: N Practic e ID: 0001 Bill able Time: 05:15:00 PM Sofia Escobedo [facility] 15:06:56 Overweig ht [id number] Completed 201404/27/2021 Overweigh t;Recorde d Elsewhere : No Locati on: [facility] So urce: EHR Chron ic: N Practic e ID: 0001 Bill able Time: 05:45:00 PM Sofia Escobedo [facility] 15:06:48 Screenin g for malignan t neoplasm of rectum Completed 201504/27/2021 Encounter for screening for malignant neoplasm of rectum;Re corded Elsewhere : No Locati on: [facility] So urce: EHR Chron ic: N Practic e ID: 0001 Bill able Time: 05:00:00 PM Sofia Escobedo [facility] 15:06:57 Evaluati on finding Completed 201704/27/2021 Hematuria , unspecifi ed;Record ed Elsewhere : No Locati on: [facility] So urce: EHR Chron ic: N Practic e ID: 0001 Bill able Time: 12:13:47 PM Sofia Escobedo [facility] 15:06:39 Microsco pic hematuri a [id number] Completed 201504/27/2021 Other microscop ic hematuria ;Recorded Elsewhere : No Locati on: [facility] So urce: EHR Chron ic: N Practic e ID: 0001 Bill able Time: 05:00:00 PM Sofia Escobedo [facility] 15:06:[address] Concept Completed 201704/27/2021 Encntr for general adult medical exam w/o abnormal findings; Recorded Elsewhere : No Locati on: [facility] So urce: EHR Chron ic: N Practic e ID: 0001 Bill able Time: 05:15:00 PM Sofia Escobedo [facility] 1 15:07:00 Mammogra phy abnormal [id number] Completed 201404/27/2021 Unspecifi ed abnormal mammogram ;Recorded Elsewhere : No Locati on: [facility] So urce: EHR Chron ic: N Practic e ID: 0001 Bill able Time: 10:42:23 AM Sofia Escobedo [facility] 1 15:06:46 Blood in urine [id number] Completed 201404/27/2021 Hematuria ;Recorded Elsewhere : No Locati on: [facility] So urce: EHR Chron ic: N Practic e ID: 0001 Bill able Time: 05:45:00 PM Sofia Escobedo [facility] 1 15:06:38 Finding of sensatio n of breast Completed 201504/27/2021 Mastodyni a;Recorde d Elsewhere : No Locati on: [facility] So urce: EHR Chron ic: N Practic e ID: 0001 Bill able Time: 05:00:00 PM Sofia Escobedo [facility] 1 15:06:41 Secondar y amenorrh ea [id number] Completed 201404/27/2021 Secondary amenorrhe a;Recorde d Elsewhere : No Locati on: [facility] So urce: EHR Chron ic: N Practic e ID: 0001 Bill able Time: 03:45:00 PM Sofia Escobedo [facility] 1 15:06:59 Pregnanc y test negative [id number] Completed 201604/27/2021 Encounter for test, result negative; Recorded Elsewhere : No Locati on: [facility] So urce: EHR Chron ic: N Practic e ID: 0001 Bill able Time: 03:30:00 PM Sofia Escobedo [facility] 15:06:53 Adult health examinat ion Completed 201404/27/2021 Routine general medical examinati on at a health care facility; Practice ID: 0001 Sofia Escobedo [facility] 15:06:36 Polyp of corpus uteri [id number] Completed 201604/27/2021 Polyp of corpus uteri;Pra ctice ID: 0001 Sofia Escobedo [facility] 15:06:[address] Concept Completed 201804/27/2021 Encounter for general adult medical exam w abnormal findings; Practice ID: 0001 Sofia Escobedo [facility] 15:06:54 Problem Notes None recorded. Procedures Surgical History Date Name Laterality Status Provider Name and Address Organization Details Recorded Time 05/12/20 24 [facility] 10:34:57 12/24/19 24 Most Recent Bone Density completed Sherin [facility] 06/22/2024 10:33:36 05/10/20 23 Date of Last Pap Smear completed Chanelle Monk [facility] 05/10/2023 09:16:28 01/01/20 21 completed [facility] 04/27/2021 16:19:43 01/01/20 21 Date of Last Colonoscopy completed [facility] 04/27/2021 16:19:44 03/18/20 19 completed [facility] 04/27/2021 16:22:31 Breast Biopsy completed [facility] 04/27/2021 16:19:[address] [facility] 04/27/2021 16:19:55 drainage of ganglion completed , [facility] 04/22/2020 16:15:23 Hysteroscopy completed , [facility] 04/22/2020 16:15:29 procedure on knee completed [facility] 04/22/2020 16:15:35 lumpectomy of breast completed [facility] 04/22/2020 16:15:43 procedure on tendon completed [facility] 04/22/2020 16:16:01 Colonoscopy [facility] 04/22/2020 16:16:07 Imaging Results Imaging Date Name Status LastModified by Organiz ation Details LastModified Time 04/07/2021 MAMMO, screening, bilateral completed [facility] [address] [place], [address], 04/11/2021 12:16:02 Procedure Notes None recorded. Medical Equipment None Reported. Allergies No known drug allergies Medications Name Sig Start Date Stop Date Status Note LastModified by Organization Details LastModified Time azithromy abhay 250 mg tablet TAKE 2 TABLETS BY MOUTH FOR 1 DAY THEN TAKE 1 TABLET BY MOUTH DAILY FOR 4 DAYS 04/30 completed Not Available Not Available Not Available ibuprofen 800 mg tablet TK 1 T PO TID PRF PAIN 05/10 completed Not Available Not Available Not Available hydrocodo ne 5 mg-acetam inophen 325 mg tablet TAKE 1 TABLET BY MOUTH EVERY 4 HOURS NEEDED FOR PAIN 04/30 completed Not Available Not Available Not Available acetamino phen 300 mg-codein e 30 mg tablet 04/22 completed Not Available Not Available Not Available fexofenad ine 180 mg tablet take 1 tablet by oral route every day 2014 active Prescrib ed Elsewher e: Yes [facility] By: ruddy carney DateTime : 07/22/20 15 03:45:00 PM Not Available Not Available Not Available doxepin 10 mg capsule take 1 capsule by oral route 3 times every day 02/21 completed Prescrib ed Elsewher e: Yes Loca tion: [facility] By: ruddy carney DateTime : 12/17/19 14 04:30:00 PM Not Available Not Available Not Available sulfameth oxazole 800 mg-trimet hoprim 160 mg tablet TAKE 1 TABLET BY MOUTH EVERY 12 HOURS FOR 5 DAYS 06/22 completed Not Available Not Available Not Available meloxicam 7.5 mg tablet TAKE 1 TABLET BY MOUTH DAILY 04/27 completed Not Available Not Available Not Available alprazola m 0.25 mg tablet 0.25 MG ORALLY DAILY NEEDED FOR ANXIETY active Not Available Not Available No t Available citalopra m 20 mg tablet 20 MG ORALLY EVERY EVENING active Not Available Not Available No t Available Metrogel Vaginal 0.75 % (37.5 mg/5 gram) insert 1 applicat orful by vaginal route for 5 nights at bedtime 12/31 completed Prescrib ed Elsewher e: No Locat ion: [facility] By: ruddy khanuntgianna DateTime : 12/08/19 17 02:18:15 PM Not Available Not Available Not Available tamoxifen 10 mg tablet take 1 tablet by oral route 2 times every day in the morning and evening 04/27 completed Prescrib ed Elsewher e: Yes Loca tion: [facility]ify By: su carney DateTime : 07/20/20 15 02:56:23 PM Not Available Not Available Not Available meclizine 25 mg tablet 25 MG ORALLY TWICE A DAY NEEDED FOR VERTIGO 06/22 completed Not Available Not Available Not Available ranitidin e 150 mg capsule take 1 capsule by oral route 2 times every day 04/27 completed Prescrib ed Elsewher e: Yes [facility] By: ruddy khanuntgianna DateTime : 07/22/20 15 03:45:00 PM Not Available Not Available Not Available ergocalci ferol (vitamin D2) 1,250 mcg (50,000 unit) capsule take 1 capsule by oral route every week 04/22 completed Not Available Not Available Not Available methylpre dnisolone 4 mg tablets in a dose pack TAKE 6 TABLETS ON DAY 1 DIRECTED ON PACKAGE AND DECREASE BY 1 TAB EACH DAY FOR A TOTAL OF 6 DAYS 06/22 completed Not Available Not Available Not Available ondansetr on 4 mg disintegr ating tablet DISSOLVE 1 TABLET ON THE TONGUE EVERY 6 HOURS 04/30 completed Not Available Not Available Not Available tamoxifen 20 mg tablet 04/22 completed Not Available Not Available Not Available Benadryl 25 mg capsule take 2 capsule by oral route every 4 - 6 hours as needed 07/22 completed Prescrib ed Elsewher e: Yes Loca tion: [facility] odify By: ruddy carney DateTime : 12/23/19 15 05:45:00 PM Not Available Not Available Not Available Xolair 150 mg subcutane ous solution 04/22 completed Not Available Not Available Not Available fexofenad ine 04/27 completed Not Available Not Available Not Available Jocelyn 30 mg/5 mL oral suspensio n 02/21 completed Prescrib ed Elsewher e: Yes Loca tion: [facility] odify By: ruddy carney DateTime : 12/17/19 14 04:30:00 PM Not Available Not Available Not Available Zyrtec 10 mg capsule 04/27 completed Prescrib ed Elsewher e: Yes Loca tion: [facility] odify By: whitney Encounberenice r DateTime : 01/18/20 16 05:00:00 PM Not Available Not Available Not Available Xolair 150 mg/mL subcutane ous syringe 04/22 completed Not Available Not Available Not Available Vitals Date Recorded Body height Body mass index (BMI) Body weight Systolic blood pressure Diastolic blood pressure Provider Name and Address Organization Details Last Updated DateTime 04/27/2021 157.48 cm 26 kg/m2 46189.12 g 134 mm[Hg] 73 mm[Hg] Sofia Escobedo [facility] 1 16:19:31 Date Recorded Body height Body mass index (BMI) Body weight Provider Name and Address Organization Details Last Updated DateTime 04/30/2022 160.66 cm 25.3 kg/m2 08194.3 g Sofia Escobedo [facility] 04/30/2022 12:15:13 Date Recorded Systolic blood pressure Diastolic blood pressure Provider Name and Address Organization Details Last Updated DateTime 04/30/2022 122 mm[Hg] 80 mm[Hg] Giovana Sánchez, [facility]- [address], [place], [address], [facility] 04/30/2022 12:27:04 Date Recorded Body height Body mass index (BMI) Body weight Systolic blood pressure Diastolic blood pressure Provider Name and Address Organization Details Last Updated DateTime 04/22/2020 162.56 cm 25.4 kg/m2 36934.67 g 125 mm[Hg] 78 mm[Hg] Jazz Thornton [facility] 0 16:23:48 Date Recorded Body height Body mass index (BMI) Body weight Systolic blood pressure Diastolic blood pressure Provider Name and Address Organization Details Last Updated DateTime 05/10/2023 160.66 cm 25 kg/m2 61674.12 g 123 mm[Hg] 72 mm[Hg] Chanelle Monk [facility] 3 09:14:39 Date Recorded Body height Body mass index (BMI) Body weight Systolic blood pressure Diastolic blood pressure Provider Name and Address Organization Details Last Updated DateTime 06/22/2024 160.66 cm 25.8 kg/m2 86052.08 g 122 mm[Hg] 68 mm[Hg] Sherin Amado [facility] 4 10:33:12 Social History Question Answer Notes LastModified by Organizat ion Details LastModified Time Tobacco Smoking Status Never Smoker Chanelle Monk null, [facility] 05/10/2023 09:16:01 Do You Have An Advance Directive? No Information n ot available 04/27/2021 What Is Your Level Of Alcohol Consumption? None Information not available 04/27/2021 Are You Blind Or Do You Have Difficulty Seeing? No Information n ot available 04/27/2021 What Is Your Level Of Caffeine Consumption? Moderate Information not available 04/27/2021 How Much Tobacco Do You Chew? None Information not available 04/27/2021 In The 14 Days Before Symptom Onset, Have You Had Close Contact With A Laboratory-confirm ed COVID-19 While That Case Was Ill? No Information n ot available 04/27/2021 In The 14 Days Before Symptom Onset, Have You Had Close Contact With A Person Who Is Under Investigation For COVID-19 While That Person Was Ill? No Information not available 04/27/2021 Have You Been To An Area Known To Be High Risk For COVID-19? No Information not available 04/27/2021 Are You Deaf Or Do You Have Serious Difficulty Hearing? No Information not available 04/27/2021 What Type Of Diet Are You Following? REGULAR Information n ot available 04/27/2021 What Is The Highest Grade Or Level Of School You Have Completed Or The Highest Degree You Have Received? [id number] Information not available 04/27/2021 What Is Your Occupation? Retired Information not available 04/30/2022 Are There Any Guns Present In Your Home? Yes Information not available 04/27/2021 Do You Use Protection During Sex? No Information not available 04/27/2021 Do You Use Your Seat Belt Or Car Seat Routinely? Yes Information not available 04/27/2021 Do You Have Smoke And Carbon Monoxide Detectors In Your Home? Yes Information not available 04/27/2021 How Much Tobacco Do You Smoke? No Information not available 04/27/2021 Do You Feel Stressed (tense, Restless, Nervous, Or Anxious, Or Unable To Sleep At Night)? [id number] [email or web address] Information not available 05/10/2023 Do You Use Any Illicit Or Recreational Drugs? No Information not available 04/27/2021 Do You Use Sunscreen Routinely? Yes Information not available 04/27/2021 Have You Used IV Drugs? No Information not available 04/27/2021 Sex: Unknown Functional Status Question Answer Note LastModified by Organizat ion Details LastModified Time Do you have difficulty walking or climbing stairs? No [email or web address] Information not available 05/10/2023 Are you able to walk? YESWOREST Information not available 04/27/2021 Are you able to care for yourself? Yes [email or web address] Information not available 05/10/2023 Do you have difficulty dressing or bathing? No [email or web address] Information not available 05/10/2023 What is your exercise level? Moderate Information not available 06/22/2024 Mental Status None recorded. Family History Relationship Description Onset Age of this Age Resolved Age Notes LastModified by Organization Details LastModified Time Mother Myocardial infarction [email or web address] Not available 04/22 16:13:03 Mother Hypertensive disorder [email or web address] Not available 2019 16:13:12 Mother Heart disease [email or web address] Not available 2019 16:14:13 Father Carcinoma in situ of lung Not available 10:25:23 Father Malignant tumor of colon Not available 2021 12:15:25 Maternal Aunt Disorder of thyroid gland [email or web address] Not available 2019 16:14:07 Maternal Grandfather Screening for cancer [email or web address] Not available 06/22 10:25:23 Medical History Condition Response Allergies (Food, seasonal, environmental ) Y Breast Cancer Y Gynecological History Statement/Question Response Date of Last Mammogram 05/12/2024 Date of LMP 05/03/2015 N On BCP's at Conception? N STIs/STDs N Was last menstrual period normal Y HPV Vaccine N Duration of Flow (days) 4 03/18/2019 Current Control Method Menopause Age at First Child 25 If Post Menopausal, Age at Menopause 49 Date of Last Colonoscopy 12/31/2020 Frequency of Cycle (Q days) 25 Most Recent Bone Density 12/24/2023 Sexually Active? Y Menses Monthly N Date of DEXA bone scan 12/24/2023 Age of first menstrual cycle 12 Date of Last Pap Smear 05/10/2023 Sexual Problems? N LMP Approximate 12/31/2020 N Obstetrics History GPAL:G 2 P 2 0 0 2 Type Value Full Term 2 Living 2 Total 2 Past Encounters Encounter ID Performer Location Encounter Start Date Encounter Closed Date Diagnosis/Indication Diagnosis SNOMED-CT Code Diagnosis ICD10 Code Diagnosis Note [id number] Giovana Sánchez [facility] [address],[place] [address] 04/22/2020 16:04:58 04/22/2020 16:51:23 Gynecologic examination 09419758 Z01.419 Take Calcium with Vitamin D 12-1500mg daily. Do monthly self breast exams. It is advised to get annual flu shot in the fall and she could obtain at [facility]. If you haven't received the Tdap vaccine in the last 10 years you should obtain one as well. Have mammogram yearly, bone density every 2-3 years and colonoscop y every 5-10 years depending on findings and history. Engage in daily exercise of low impact aerobic exercise 45-60 minutes 4-5 times weekly. Avoid tobacco and illicit drugs as well as using moderation with alcohol intake less than 1-2 8 oz beverages daily. This lifestyle behavior pattern will lead to less health conditions and longer life span. If BMI greater than 25 weight watchers or dietary consult advised. Questions have been answered. Patient appears to understand instructio ns, but if you have any further questions call or respond to this email [id number] Giovana Sánchez [facility] [address],[facility] [address] 04/27/2021 16:06:08 04/28/2021 09:38:41 Gynecologic examination [id number] Z01.419 Take Calcium with Vitamin D 12-1500mg daily. Do monthly self breast exams. It is advised to get annual flu shot in the fall and she could obtain at [facility]. If you haven't received the Tdap vaccine in the last 10 years you should obtain one as well. Have mammogram yearly, bone density every 2-3 years and colonoscop y every 5-10 years depending on findings and history. Engage in daily exercise of low impact aerobic exercise 45-60 minutes 4-5 times weekly. Avoid tobacco and illicit drugs as well as using moderation with alcohol intake less than 1-2 8 oz beverages daily. This lifestyle behavior pattern will lead to less health conditions and longer life span. If BMI greater than 25 weight watchers or dietary consult advised. Questions have been answered. Patient appears to understand instructio ns, but if you have any further questions call or respond to this email [facility] Mike Hicks scheduled- -managed by PCP [id number] Giovana Sánchez [facility] [address],[place] [address] 04/30/2022 12:07:12 04/30/2022 12:29:31 Gynecologic examination [id number] Z01.419 Z11.51 Take Calcium with Vitamin D 12-1500mg daily. Do monthly self breast exams. It is advised to get annual flu shot in the fall and she could obtain at [facility] or [facility]. If you haven't received the Tdap vaccine in the last 10 years you should obtain one as well. Have mammogram yearly, bone density every 2-3 years and colonoscop y every 5-10 years depending on findings and history. Engage in daily exercise of low impact aerobic exercise 45-60 minutes 4-5 times weekly. Avoid tobacco and illicit drugs as well as using moderation with alcohol intake less than 1-2 8 oz beverages daily. This lifestyle behavior pattern will lead to less health conditions and longer life span. If BMI greater than 25 weight watchers or dietary consult advised. Questions have been answered. Patient appears to understand instructio ns, but if you have any further questions call or respond to this email Pap/hpv sent (prefers sent) STD Screen declined Genetic Screen discussed Colon Screen UTD PCP Dexa Screen UTD PCP Routine Labs KSD PCPMammo PCP/[facility] n managed [id number] Giovana Sánchez [facility] [address] [address] 05/10/2023 09:02:52 05/10/2023 09:30:55 Gynecologic examination [id number] Z01.419 Z11.51 Take Calcium with Vitamin D 12-1500mg daily. Do monthly self breast exams. It is advised to get annual flu shot in the fall and she could obtain at [facility] or [facility] care clinic. If you haven't received the Tdap vaccine in the last 10 years you should obtain one as well. Have mammogram yearly, bone density every 2-3 years and colonoscop y every 5-10 years depending on findings and history. Engage in daily exercise of low impact aerobic exercise 45-60 minutes 4-5 times weekly. Avoid tobacco and illicit drugs as well as using moderation with alcohol intake less than 1-2 8 oz beverages daily. This lifestyle behavior pattern will lead to less health conditions and longer life span. If BMI greater than 25 weight watchers or dietary consult advised. Questions have been answered. Patient appears to understand instructio ns, but if you have any further questions call or respond to this email Pap/hpv sent (prefers sent)STD Screen declinedGe netic Screen discussedC olon Screen UTD PCPDexa Screen UTD PCPRoutine Labs UTD PCPMammo PCP/[facility] n managed [id number] Adolph Danielson MD [place] [address] [address] 06/22/2024 10:23:54 06/22/2024 11:16:50 Gynecologic examination [id number] Z01.419 Annual gynecologi melissa exam performed. Patient will come back in a year unless there are new symptoms. Suggest Calcium with Vitamin D if not eating in diet. Patient advised to get annual flu shot. Recommend yearly physicals and preform monthly breast exams. Genetic testing is available for patients with family history of cancer. Engage in safe sexual practices, use condoms. Encouraged to have daily exercise. Avoid tobacco and illicit drugs, moderation of alcohol. If BMI greater than 25 dietary consult advised. If you have any questions please call or email. mammogram- done colon cancer screening - done DEXA scan- done Pap smear- today laboratory evaluation - done Health Concerns Section Related Observation LastModified by Organization Detai ls LastModified Time None Recorded Concern Status LastModified by Organization Details LastModified Time None Recorded Advance Directives Directive N: Payers Encounter Date Sequence Insurance Name Policy Number Policy Catherine Covered Member ID Catherine Member ID Guarantor Name 04/22/2020 1 [employer] - CHOICE (POS II) [id number] Cathi Cruz [id number] Riky Cruz 04/27/2021 1 [employer] - CHOICE (POS II) [id number] Cathi Cruz [id number] Riky Cruz 04/30/2022 1 [employer] - CHOICE (POS II) [id number] Cathi Cruz [id number] Riky Cruz 05/10/2023 1 [place] [id number] Riky Cruz [id number] Riky Cruz 06/22/2024 1 [place] [id number] Riky Liler [id number] Riky Cruz Notes Date Note Type Note Provider Name and Address Organization Details Recorded Time 04/22/2020 text/html Annual GYNReport ed bypatient.History:n o gynecologic complaints Menstrual cycle:Normal menses Urinary symptoms:No hematuria; No incontinence Vulva:No genital lesion Vagina:Normal vaginal discharge Breast:No breast pain; No breast lump; No nipple discharge Current Contraception:Monog amous relationship; postmenopause Sexual complaints:No sexual complaints; No pain during intercourse; Normal libido Menopausal Symptoms:No menopausal symptoms; Normal vaginal lubrication Psychological symptoms:No depression; No anxiety; No PMDD Preventive measures:Encourage self breast examination; Encourage regular exercise; Encourage no tobacco use; Encourage regular mammograms starting age 40; Followed with Q3 year pap smear and high risk HPV typing; Mammogram performed within the past year; Up to date on colonoscopy screening; Diann 2019 Giovana Sánchez [facility] [address], [place], [address], [facility] 04/22/2020 16:40:35 04/27/2021 text/html Annual Binding Nicker Post-MenopausalRepo rted bypatient.Menopausa l Symptoms:no menopausal symptoms; normal vaginal lubrication Vaginal Bleeding:history of menopause having occurred; no history of post menopausal bleeding Urinary Symptoms:no hematuria; no incontinence; no nocturia; no urinary frequency Vulva:no genital lesion; no vulvar atrophy Vagina:normal vaginal discharge; no vaginal atrophy Breast:no breast lump; no nipple discharge; no breast pain Sexual Complaints:no sexual complaints Psychological Symptoms:no depression; no anxiety Preventive Measures:encourage regular mammograms starting age 40; encourage self breast examination; encourage regular exercise; encourage no tobacco use; mammogram performed within the past year (Still goes to [facility] to get exams & mammo's done.); history of recent colonoscopy; needs to schedule bone density (Has it scheduled) Giovana Sánchez [facility] [address], [place], [address], [facility] 04/27/2021 16:32:07 04/30/2022 text/html Annual Binding Nicker Post-MenopausalRepo rted bypatient.Menopausa l Symptoms:no menopausal symptoms; normal vaginal lubrication Vaginal Bleeding:history of menopause having occurred; no history of post menopausal bleeding Urinary Symptoms:no hematuria; no incontinence; no nocturia; no urinary frequency Vulva:no genital lesion; no vulvar atrophy Vagina:normal vaginal discharge; no vaginal atrophy Breast:no breast lump; no nipple discharge; no breast pain Sexual Complaints:no sexual complaints Psychological Symptoms:no depression; no anxiety Preventive Measures:encourage regular mammograms starting age 40; encourage self breast examination; encourage regular exercise; encourage no tobacco use; mammogram performed within the past year; history of recent colonoscopy Giovana Sánchez [address], [place], [address], [facility] 04/30/2022 12:29:06 05/10/2023 text/html Annual Binding Nicker Post-MenopausalRepo rted bypatient.Menopausa l Symptoms:no menopausal symptoms; normal vaginal lubrication Vaginal Bleeding:history of menopause having occurred; no history of post menopausal bleeding Urinary Symptoms:no hematuria; no incontinence; no nocturia; no urinary frequency Vulva:no genital lesion; no vulvar atrophy Vagina:normal vaginal discharge; no vaginal atrophy Breast:no breast lump; no nipple discharge; no breast pain Sexual Complaints:no sexual complaints Psychological Symptoms:no depression; no anxiety Preventive Measures:encourage regular mammograms starting age 40; encourage self breast examination; encourage regular exercise; encourage no tobacco use; mammogram performed within the past year; history of recent colonoscopy [address] [place], [address], [facility] 05/10/2023 09:30:08 06/22/2024 text/html Annual GYNReport ed bypatient.History:n o gynecologic complaints Urinary symptoms:No hematuria Vulva:No genital lesion Vagina:Normal vaginal discharge Breast:No breast pain; No breast lump Sexual complaints:No sexual complaints; No pain during intercourse Menopausal Symptoms:No menopausal symptoms; Normal vaginal lubrication Psychological symptoms:No depression; No anxiety Preventive measures:Encourage self breast examination; Encourage regular exercise Adolph Danielson MD [address], [place], [address], [facility] 06/22/2024 11:16:35 OBGyn Episode Ob Episode Information Episode Created Date Number of Fetuses Patient Bloodtype Patient rh Status Prepregnancy Weight lbs Domestic Partner Domestic Partner Phone Father Name Speeder Worker Status 04/22/20 20 1 CLOSED Fetus Data First Name Last Name Admitted to NICU Weight (g) Sex Living Outcome Pediatric Complications Fetus ID Race Codes Race Delivery Type [id number] Vaginal Delivery Santos Calculation Initial Santos Date Initial Exam Date Initial Exam Provider Initial Ultrasound Date Last Menstrual Period Date Ultra Sound Weeks Gestation 0 Eighteen To Twenty Week Santos Update Ultra Sound Date Fundal Height At Umbil Quickening Date Ultra Sound Latest Weeks Gestation Final Santos Confirmed By Final Santos Confirmed Date Final Santos Date Ultra Sound Latest Days Gestation 0 0 Menstrual History Last Menstrual Date Menses Monthly On Bcp Conception Prior Menses Frequency Hcg Plus Date Menarche Onset Age Delivery Information Delivery Date Delivery Type Labor Anesthesia Weeks Gestation Incision Type Labor Labor Length Hrs Delivered By Post Complications Tubal Sterilization Discharge Date Comments 1 Discharge Information Feeding Method Contraceptive Method Maternal HG B and HCT Levels Ob Episode Information Episode Created Date Number of Fetuses Patient Bloodtype Patient rh Status Prepregnancy Weight lbs Domestic Partner Domestic Partner Phone Father Name Speeder Worker Status 04/22/20 20 1 CLOSED Fetus Data First Name Last Name Admitted to NICU Weight (g) Sex Living Outcome Pediatric Complications Fetus ID Race Codes Race Delivery Type [id number] Vaginal Delivery Santos Calculation Initial Santos Date Initial Exam Date Initial Exam Provider Initial Ultrasound Date Last Menstrual Period Date Ultra Sound Weeks Gestation 0 Eighteen To Twenty Week Santos Update Ultra Sound Date Fundal Height At Umbil Quickening Date Ultra Sound Latest Weeks Gestation Final Santos Confirmed By Final Santos Confirmed Date Final Santos Date Ultra Sound Latest Days Gestation 0 0 Menstrual History Last Menstrual Date Menses Monthly On Bcp Conception Prior Menses Frequency Hcg Plus Date Menarche Onset Age Delivery Information Delivery Date Delivery Type Labor Anesthesia Weeks Gestation Incision Type Labor Labor Length Hrs Delivered By Post Complications Tubal Sterilization Discharge Date Comments 3 Discharge Information Feeding Method Contraceptive Method Maternal HG B and HCT Levels
--- OUTSIDE RECORDS SUMMARY | 2024-09-28 23:11 | XMS_ITS | Clinical Summary ---
Author Organization [facility] al Address [address] [place] [address] Care Team Providers Care Coding Clerks Supervisor Name Role Phone Grey Ayala MD Primary [...] Influenza, Trivalent, IM (MDV) 06/10/2014,2012 Tdap 06/17/2014 Surgical History Surgery Date Site/Laterality Comments HEMORRHOID SURGERY hemmoroids KNEE ARTHROSCOPY R/L knee arthroscopic BREAST LUMPECTOMY BREAST BIOPSY Medical History Medical History Date Comments Peptic ulcer Peptic ulcer dis ease Osteoarthritis Osteoarthritis Breast cancer (HCC) Family History Medical History Relation Name Comments Other Brother 2 Alive and well; Colon cancer Father Cancer -colon; /Cancer, colon; Cause of : Cancer, colon/Colon adenocarcinoma - (Added by TW Conv) Coronary artery disease Mother Ana M nary artery disease; Heart disease Mother Heart disease; Hyperlipidemia Mother Hyperlipidemi a; Hypertension Mother Hypertension; Relation Name Status Comments Brother 1 Alive Brother 2 Father Mother Social History Tobacco Use Types Packs/Day Years Used Date Smoking Tobacco: Never Tobacco Cessation:Counseling Given: Not Answered Alcohol Use Standard Drinks/Week Comments No 0 (1 standard drink = 0.6 oz pur e alcohol) Comments Unknown Sex and Gender Information Value Date Recorded Sex Assigned at Not on file Legal 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 Gender Identity Not on file Sexual Orientation Not on file Obstetrics History Last Filed Vital Signs Vital Sign Reading [...] 04/30/2023 11:54 AM CDT Plan of Treatment Health Maintenance Due Date Last Done Comments Cervical Cancer Screening 1964 Colon Cancer Screening-Colonoscopy 1964 Depression Screening 1964 Hepatitis C Screening 1964 Hepatitis B Screening 1982 Regular Well Visit/Exam 18-64 1982 Zoster Vaccine (1 of 2) 2014 Influenza Vaccine (#1) 2024 9, 06/18/2018, 06/10/2014, Additional history exists DTaP/Tdap/Td Vaccine (2 - Td or Tdap) 06/17/2024 06/17/2014 Breast Cancer Screening-Mammogram 05/12/2025 05/12/2024, 04/30/2023, 04/24/2022, Additional history exists Pneumococcal vaccine <65 Aged Out No longer eligible based on patient's age to complete this topic Procedures Procedure Name Priority Date/Time Associated Diagnosis [...] compared to prior imaging studies performed at [facility] on 04/24/2022, 04/30/2023 and 05/30/2023. There are [...] compared to prior imaging studies performed at [facility] on 04/24/2022, 04/30/2023 and 05/30/2023. There are scattered areas of fibroglandular density. There are post breast conservation therapy changes in the left breast. There is no suspicious abnormality in either breast. Impression: There is no mammographic evidence of malignancy. Annual screening mammography is recommended. OVERALL FINAL ASSESSMENT: BI-RADS CATEGORY 2: Benign. Result [facility] Vidya Patterson NP IMG MAMMO PROCEDURES Final Result from Last 3 Months or Most Recently Relevant to Health Maintenance Insurance [employer] [facility] ANTHEM ACCESS CHOICE Care Teams Coding Clerks Supervisor Relationship Specialty Start Date End Date Grey Ayala MD [address] [place] [address] PCP - General 12/27/17
--- OUTSIDE RECORDS SUMMARY | 2024-09-28 23:11 | XMS_ITS | Encounter Summary ---
Author Organization [facility] Address [address] [place] [address] Care Team Providers Care Mains And Service Supervisor Name Role Phone Unavailable Primary Care Provider Unavailabl e Encounter Details Date Type Department Care Team (Latest Contact Info) Description 08/06/2008 Outpatient Historical HIS [facility] MAT[facility]W Dunham, Leighann Galarza MD [address] [facility] [place] [address] Chronic Lymphocytic Thyroiditis Social History Tobacco Use Types Packs/Day Years Used Date Smoking Tobacco: Never Assessed Comments Unknown Sex and Gender Information Value Date Recorded Sex Assigned at Not on file Legal Sex Female 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 Gender Identity Not on file Sexual Orientation Not on file documented as of this encounter Plan of Treatment Not on file documented as of this encounter Procedures Procedure Name Priority Date/Time Associated Diagnosis Comments T3 FREE Routine 08/06/2008 11:22 AM REGIONAL COMMERCIAL SALES MANAGER TSH Routine 08/06/2008 11:22 AM REGIONAL COMMERCIAL SALES MANAGER T4 FREE Routine 08/06/2008 11:22 AM REGIONAL COMMERCIAL SALES MANAGER documented in this encounter Results * T4 FREE (08/06/2008 11:22 AM REGIONAL COMMERCIAL SALES MANAGER) T4 FREE 1.0 0.9 - 1.7 ng/dL [facility] Blood specimen (specimen) 08/06/2008 11:22 AM REGIONAL COMMERCIAL SALES MANAGER 08/06/2008 11:35 AM REGIONAL COMMERCIAL SALES MANAGER us Leighann Dunham MD CHEMISTRY ORDERABLES Final Result INTERFACE SYSTEM Refer to clinic/hospital department [facility] CLIA# [id number] [address] [place] [address] * TSH (08/06/2008 11:22 AM REGIONAL COMMERCIAL SALES MANAGER) TSH 1.80 0.27 - 4.20 uU/mL [facility] Blood specimen (specimen) 08/06/2008 11:22 AM REGIONAL COMMERCIAL SALES MANAGER 08/06/2008 11:35 AM REGIONAL COMMERCIAL SALES MANAGER us Leighann Dunham MD CHEMISTRY ORDERABLES Final Result Performing Organization Address City/[facility] de Phone Number INTERFACE SYSTEM Refer to clinic/hospital department [facility] CLIA# [id number] [address] [place] [address] * T3 FREE (08/06/2008 11:22 AM REGIONAL COMMERCIAL SALES MANAGER) T3 FREE 3.2 2.5 - 4.4 pg/mL [facility] Blood specimen (specimen) 08/06/2008 11:22 AM REGIONAL COMMERCIAL SALES MANAGER 08/06/2008 11:35 AM REGIONAL COMMERCIAL SALES MANAGER us Leighann Dunham MD CHEMISTRY ORDERABLES Final Result Performing Organization Address City/[facility] Co de Phone Number INTERFACE SYSTEM Refer to clinic/hospital department [facility] CLIA# [id number] [address] [address] documented in this encounter Visit Diagnoses Diagnosis Chronic lymphocytic thyroiditis documented in this encounter
--- OUTSIDE RECORDS SUMMARY | 2024-09-28 23:11 | XMS_ITS | Clinical Summary ---
Author Organization [facility] Address [address] [facility] Attn: Epic Prelude ADT [place]SE [place] [address] Care Team Providers Care Pals Nurse Name Role Phone Unavailable Primary Care Provider Unavailabl e Social History Tobacco Use Types Packs/Day Years Used Date Smoking Tobacco: Never Assessed Comments Unknown Sex and Gender Information Value Date Recorded Sex Assigned at Not on file Legal Sex Female 5:40 AM VERIFICATION REP Gender Identity Not on file Sexual Orientation Not on file Plan of Treatment Health Maintenance Due Date Last Done Comments DTAP/TDAP/TD VACCINES (1 - Tdap) 1983 HEPATITIS B VACCINES (1 of 3 - 19+ 3-dose series) 10/1983 CERVICAL CANCER SCREENING 1994 BREAST CANCER SCREENING 2004 COLORECTAL SCREENING 2009 Colorectal Cancer Screening 2009 FIT-DNA Q 3 years 2009 FIT/FOBT Q 1 year 2009 Flex Sig/CT Colonography Q 5 years 2009 ZOSTER VACCINE (1 of 2) 2014 INFLUENZA VACCINE (#1) 2024
[2024-09-29 00:02] VITALS: BP 138/62; PULSE 112; RESP 20; TEMP 37; O2SAT 100
[2024-09-29 02:30] LABS: Add Urine Microscopic? YES; Appearance Urine Turbid (Clear); Bilirubin Urine Negative (Negative); Blood Urine 3+ (Negative); Color Urine Dark Yellow (Yellow); Glucose Urine UA Negative (Negative); Ketones Urine Trace mg/dL (Negative); Leukocyte Esterase Ur 1+ LEU/UL (Negative); Need Manual Microscopic Reviewed; Nitrate Urine Negative (Negative); Non Pathogenic Casts >20; Protein Urine 3+ mg/dL (Negative); RBC Urine >100 /hpf (0-2); Specific Grav Ur 1.025 (1.001-1.035); Squamous Epithelial Cell Urine Moderate /hpf (Few)
[2024-09-29 02:38] LABS: Bacteria Urine 1+ /hpf; WBC Urine 51-75 /hpf (0-3)
--- NOTE | 2024-09-29 03:29 | ED_ITS ---
HPI - General Adult General Chief complaint: Unspecified Stated complaint: blood in urine Time Seen by Provider: 09/29/24 03:09 History of Present Illness HPI narrative: 58-year-old female with a past medical history including generalized anxiety disorder, GERD, fibromyalgia, breast cancer status post chemotherapy, currently being evaluated by multiple specialists for rheumatological disorders and potentially even malignancy such as lymphoma or blood cancer. Patient patient was recently on hydroxychloroquine for potential Sjogren's but she stopped this 3 weeks earlier after she started developing a 6 nerve palsy for which she is being evaluated by Ophthalmology. Today patient presents to the emergency room with chief complaint of some blood in her urine associated with urgency and frequency with urination for the last few days. She had blood work last week that showed leukocytosis and thrombocytopenia and she was concerned that this could be related. She is otherwise well-appearing, denies any chest pain, shortness a breath, abdominal pain, back pain, fever, chills, nausea or vomiting. No weakness or fatigue. Related Data Home Medications ?Medication ?Instructions ?Recorded ?Confirmed ?Last Taken ?Type fexofenadine 180 mg tablet 90 mg PO DAILY 07/27/19 09/21/24 10/23/21 History cholecalciferol (vitamin D3) 50 50 mcg PO DAILY 01/27/21 09/21/24 10/19/21 History mcg (2,000 unit) capsule (Vitamin D3) Allergies Allergy/AdvReac Type Severity Reaction Status Date / Time oxycodone AdvReac Mild Nausea and Verified 09/21/24 16:19 Vomiting Review of Systems 2 Review of Systems: As reviewed above in HPI [facility] Past Medical History Medical History Bilateral adhesive capsulitis of shoulders BMI 26.0-26.9,adult IBS (irritable bowel syndrome) Anxiety PONV (postoperative nausea and vomiting) History of breast cancer Surgical History Surgical History History of arthroscopic surgery of shoulder Left shoulder arthroscopic subacromial decompression October 23, 2021 History of bilateral knee arthroplasty 2011, Dr. 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 Mucous membranes moist. NECK: Supple. CHEST: [Clear to auscultation. No respiratory distress.] HEART: [Regular rate and rhythm]. No murmur heard. [Normal peripheral pulses.] ABDOMEN: [Soft, nondistended], [nontender], [No rigidity or guarding] EXTREMITIES: Normal range of motion. [No edema.] SKIN: Warm, dry, no rash. NEURO: [No focal deficits]. Alert and oriented [x3.] PSYCH: [Normal mood and affect.] Course Vital Signs Vital signs: Vital Signs Temperature 37.0 C 09/29/24 00:02 Pulse Rate 112 H 09/29/24 00:02 Respiratory Rate 20 09/29/24 00:02 Blood Pressure 138/62 09/29/24 00:02 Pulse Oximetry 100 09/29/24 00:02 Oxygen Delivery Room Air 09/29/24 00:02 Temperature 37.0 C 09/29/24 00:02 Pulse Rate 112 H 09/29/24 00:02 Respiratory Rate 20 09/29/24 00:02 Blood Pressure 138/62 09/29/24 00:02 Pulse Oximetry 100 09/29/24 00:02 Oxygen Delivery Room Air 09/29/24 00:02 Medical Decision Making [facility] Narrative Medical decision making narrative: 58-year-old female with a past medical history including G 80, GERD, fibromyalgia, breast cancer status post radiation and chemotherapy, Sjogren's disease, currently being evaluated for malignancy with referral to [facility]. Patient presents to the emergency department today with urinary tract infection symptoms including urgency and frequency for the last day associated with some blood in her urine. She was concerned that this could be a consequence or related to her low platelets that were recently discovered on laboratory studies on outpatient basis. She is otherwise well-appearing, not any acute distress, no fever, back pain, abdominal pain, she has a soft nontender abdomen otherwise appears in her normal state of health. Urinalysis obtained in triage which does show some red blood cells in addition to leukocytes and bacteria consistent with a potential urinary tract infection. Given her recent laboratory derangements we did order repeat including CBC, CMP and PT, PTT. She is given a fluid bolus and started on IV Rocephin for her urinary tract infection while workup underway. Patient's workup shows significant derangements including a leukocytosis of 115,000 almost double what it was just 5 days prior. Anemia of 8.3 lower than 9.9 previously. Platelets of 27. Creatinine 1.1, ALT and AST slightly elevated, normal bilirubin. Given patient's significantly drastic rise of leukocytosis I went ahead and consulted the bone marrow transplant team and Hematology/Oncology over the [facility] for recommendations and options for care. We presently do not have Hematology on staff for the next 2 days here. I spoke to Dr. Kay who felt that patient warranted high priority urgent transfer to their facility for evaluation and treatment initiation on the bone marrow transplant service team. Recommendations to obtain flow cytometry of available to assist in addition to uric acid and phosphorus levels. Recommendations for maintenance IV fluids to prevent glucose stasis with her rapid rising leukocytes. Patient was accepted to their facility under Dr. Vergara pending bed availability. I went and re-evaluated the patient who was made aware of the workup results and plan of care for transfer to tertiary care center with Hematology-Oncology services. Patient was appreciative and agreeable to transfer process at this time and awaiting bed availability. She was given Toradol for some mild back pain and started on maintenance IV fluids while additional laboratory studies ordered. Medical Records Medical records reviewed: Yes I reviewed the external patient's medical records. Vital Signs Vital Signs: Vital Signs Temperature 37.0 C 09/29/24 00:02 Pulse Rate 112 H 09/29/24 00:02 Respiratory Rate 20 09/29/24 00:02 Blood Pressure 138/62 09/29/24 00:02 Pulse Oximetry 100 09/29/24 00:02 Oxygen Delivery Room Air 09/29/24 00:02 Temperature 37.0 C 09/29/24 00:02 Pulse Rate 112 H 09/29/24 00:02 Respiratory Rate 20 09/29/24 00:02 Blood Pressure 138/62 09/29/24 00:02 Pulse Oximetry 100 09/29/24 00:02 Oxygen Delivery Room Air 09/29/24 00:02 Lab Data Lab results reviewed: Yes I reviewed the patient's lab results. 09/29/24 04:31 09/29/24 04:31 Labs: Lab Results 09/29/24 09/29/24 Range/Units 02:04 04:31 WBC 114.9 H* (4.5-10.0) K/mm3 RBC 2.41 L (4.2-5.4) M/mm3 Hgb 8.3 L (12.0-15.0) g/dL Hct 25.3 L (37.0-47.0) % MCV 105.0 H (80-100) fl MCH 34.4 H (26-34) pg MCHC 32.8 (32-36) g/dl RDW 14.6 H (11.5-14.5) % Plt Count 27 L (150-375) k/mm3 MPV 11.6 H (7.4-10.4) fl Immature Gran % (Auto) Not Reportable Neut % (Auto) Not Reportable Lymph % (Auto) Not Reportable Elliott % (Auto) Not Reportable Eos % (Auto) Not Reportable Baso % (Auto) Not Reportable Lymph # (Auto) Not Reportable Elliott # (Auto) Not Reportable Eos # (Auto) Not Reportable Baso # (Auto) Not Reportable Abs Immat Gran (auto) Not Reportable Absolute Neuts (auto) Not Reportable Absolute Nucleated RBC Not Reportable Total Counted 100 Neutrophils % (Manual) 3 L (46-73) % Band Neutrophils % 4 (0-6) % Lymphocytes % (Manual) 22.0 (18-44) % Monocytes % (Manual) 66 H (3-9) % Metamyelocytes % 5 % Nucleated RBC % Not Reportable Abs Neuts (Manual) 8.04 H (1.7-7.2) K/mm3 Abs Lymphs (Manual) 25.27 H (1.1-4.5) K/mm3 Abs Monocytes (Manual) 75.83 H (0.1-0.90) K/mm3 Nucleated RBCs 1 % Atypical Lymphocytes Present Smudge Cells Present Platelet Estimate Decreased (Adequate) % Immature Plt Fraction 24.8 H (0.9-11.2) % Schistocytes None seen PT 16.6 H (11.1-14.7) Seconds INR 1.3 APTT 42.9 H (22.3-36.8) Seconds Sodium 135 L (137-145) mmol/L Potassium 3.7 (3.4-5.0) mmol/L Chloride 98 (98-107) mmol/L Carbon Dioxide 31 H (22-30) mmol/L Anion Gap 6 (4-12) mmol/L BUN 12 (7-17) mg/dL Creatinine 1.10 H (0.7-1.0) mg/dL Estim Creat Clear Calc 42 ml/min Estimated GFR 51 L (59 - ) Glucose 121 H (65-110) mg/dL Calcium 8.8 (8.4-10.2) mg/dL Total Bilirubin 0.7 (0.2-1.3) mg/dL AST 39 H (14-36) U/L ALT 42 H (6-35) U/L Alkaline Phosphatase 114 (38-126) U/L Total Protein 8.0 (6.3-8.2) g/dL Albumin 3.7 (3.5-5.1) g/dL Urine Color Dark yellow (Yellow) Urine Appearance Turbid H (Clear) Urine pH 5.0 (5.0-9.0) Ur Specific [place] 1.025 (1.001-1.035) Urine Protein 3+ H (Negative) mg/dL Urine Glucose (UA) Negative (Negative) mg/dL Urine Ketones Trace H (Negative) mg/dL Ur Blood (Man) 3+ H (Negative) Urine Nitrate Negative (Negative) Urine Bilirubin Negative (Negative) Urine Urobilinogen 1.0 (<2.0) mg/dL Add Ur Microanalysis Reviewed Leukocyte Esterase Rfl 1+ H (Negative) DONALD/UL Urine RBC >100 H (0-2) /hpf Urine WBC 51-75 H (0-3) /hpf Ur Squamous Epith Cells Moderate (Few) /hpf Urine Bacteria 1+ /hpf Urine Casts >20 Discharge Plan Discharge Clinical Impression: Hematologic malignancy, Urinary tract infection, Thrombocytopenia Leukocytosis Qualifiers: Leukocytosis type: monocytosis Qualified Code(s): D72.821 - Monocytosis (symptomatic) Patient Disposition: Acute Care Hospital Condition: Guarded Prognosis Patient Language: Norwegian Prescriptions: No Action alprazolam 0.25 mg tablet 0.25 mg PO DAILY PRN (Reason: anxiety) Qty: 10 0RF clobetasol 0.05 % cream 1 applic topical BID 14 Days Qty: 30 1RF fexofenadine 180 mg tablet 90 mg PO DAILY cholecalciferol (vitamin D3) [Vitamin D3] 50 mcg (2,000 unit) Capsule 50 mcg PO DAILY citalopram 20 mg tablet 20 mg PO QPM Qty: 90 2RF Follow-up/Referrals: Grey Ayala MD [Primary Care Provider] - Time of Disposition: 05:58
--- OUTSIDE RECORDS SUMMARY | 2024-09-29 03:32 | XMS_ITS | Referral Summary ---
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 on 04/24/2022, 04/30/2023 and 05/30/2023. [...] compared to prior imaging studies performed at [facility] on 04/24/2022, 04/30/2023 and 05/30/2023. There are scattered areas of fibroglandular density. There are post breast conservation therapy changes in the left breast. There is no suspicious abnormality in either breast. Impression: There is no mammographic evidence of malignancy. Annual screening mammography is recommended. OVERALL FINAL ASSESSMENT: BI-RADS CATEGORY 2: Benign. Vidya Patterson CRIMPING MACHINE OPERATOR IMG MAMMO PROCEDURES Final Result from Last 3 Months or Most Recently Relevant to Health Maintenance Insurance [facility] OPEN ACCESS [facility] [employer] ACCESS CHOICE ANTHEM ACCESS CHOICE Care Teams Resident Care Spec Relationship Specialty Start Date End Date Grey Ayala MD [address] [facility] [address] [place] [address] PCP - General 12/27/17
--- OUTSIDE RECORDS SUMMARY | 2024-09-29 03:32 | XMS_ITS | Clinical Summary ---
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
--- OUTSIDE RECORDS SUMMARY | 2024-09-29 03:32 | XMS_ITS | Encounter Summary ---
Author Organization [facility] Address [address] [place] [address] Care Team Providers Care Computer Sciences Professor Name Role Phone Unavailable Primary Care Provider Unavailabl e Encounter Details Date Type Department Care Team (Latest Contact Info) Description 08/06/2008 Outpatient Historical HIS [facility] MATTHEW Dunham, Leighann Galarza MD [address] [facility] [place] [address] Chronic Lymphocytic Thyroiditis Social History Tobacco Use Types Packs/Day Years Used Date Smoking Tobacco: Never Assessed Comments Unknown Sex and Gender Information Value Date Recorded Sex Assigned at Not on file 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 Gender Identity Not on file Sexual Orientation Not on file documented as of this encounter Plan of Treatment Not on file documented as of this encounter Procedures Procedure Name Priority Date/Time Associated Diagnosis Comments T3 FREE Routine 08/06/2008 11:22 AM SUPERMARKET MANAGER TSH Routine 08/06/2008 11:22 AM SUPERMARKET MANAGER T4 FREE Routine 08/06/2008 11:22 AM SUPERMARKET MANAGER documented in this encounter Results * T4 FREE (08/06/2008 11:22 AM SUPERMARKET MANAGER) T4 FREE 1.0 0.9 - 1.7 ng/dL [facility] Blood specimen (specimen) 08/06/2008 11:22 AM SUPERMARKET MANAGER 08/06/2008 11:35 AM SUPERMARKET MANAGER us Leighann Dunham MD CHEMISTRY ORDERABLES Final Result INTERFACE SYSTEM Refer to clinic/hospital department [facility] CLIA# [id number] [address] [place] [address] * TSH (08/06/2008 11:22 AM SUPERMARKET MANAGER) TSH 1.80 0.27 - 4.20 uU/mL [facility] Blood specimen (specimen) 08/06/2008 11:22 AM SUPERMARKET MANAGER 08/06/2008 11:35 AM SUPERMARKET MANAGER us Leighann Dunham MD CHEMISTRY ORDERABLES Final Result Performing Organization Address City/[facility] de Phone Number INTERFACE SYSTEM Refer to clinic/hospital department [facility] CLIA# [id number] [address] [place] [address] * T3 FREE (08/06/2008 11:22 AM SUPERMARKET MANAGER) T3 FREE 3.2 2.5 - 4.4 pg/mL [facility] Blood specimen (specimen) 08/06/2008 11:22 AM SUPERMARKET MANAGER 08/06/2008 11:35 AM SUPERMARKET MANAGER us Leighann Dunham MD CHEMISTRY ORDERABLES Final Result Performing Organization Address City/[facility] Co de Phone Number INTERFACE SYSTEM Refer to clinic/hospital department [facility] CLIA# [id number] [address] [address] documented in this encounter Visit Diagnoses Diagnosis Chronic lymphocytic thyroiditis documented in this encounter
--- OUTSIDE RECORDS SUMMARY | 2024-09-29 03:32 | XMS_ITS | Clinical Summary ---
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 There are [...] to prior imaging studies performed at [facility] on 04/24/2022, 04/30/2023 and 05/30/2023. There are scattered areas of fibroglandular density. There are post breast conservation therapy changes in the left breast. There is no suspicious abnormality in either breast. Impression: There is no mammographic evidence of malignancy. Annual screening mammography is recommended. OVERALL FINAL ASSESSMENT: BI-RADS CATEGORY 2: Benign. Result [facility] Vidya Patterson NP IMG MAMMO PROCEDURES Final Result from Last 3 Months or Most Recently Relevant to Health Maintenance Insurance [facility]ICE ANTHEM ACCESS CHOICE Care Teams Quarry Supervisor Open Pit Relationship Specialty Start Date End Date Grey Ayala MD [address] [place] [address] PCP - General 12/27/17
--- OUTSIDE RECORDS SUMMARY | 2024-09-29 03:33 | XMS_ITS | Continuity of Care Document ---
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 - Active NEEDLE 25G X 5/8 BD 415712 USE WITH XOLAIR - Active STERILE WATER SDV 10ML/VL USE DIRECTED - Active FEXOFENADINE HCL 180 MG TABLET take 1 tablet (180MG) by oral route every 12 hours 180 MG - Active High dose f or urticaria not rhinitis citalopram 20 mg tablet take 1 tablet by oral route every day 20 MG - Active tamoxifen 20 mg tablet take 1 tablet by oral route every day 20 MG - Active Xolair 150 mg/mL subcutaneous syringe inject (300MG) by subcutaneous route every 4 weeks - No Longer Active Xolair 150 mg/mL subcutaneous syringe inject (300MG) by subcutaneous route every 4 weeks - No Longer Active Procedures Procedure Date CHEMO ADMIN, SUBCUTANEOUS OR INTRAMUSCUL AR; NON-HORMONAL ANTI-NEOPLASTIC CHEMO ADMIN, SUBCUTANEOUS OR INTRAMUSCUL AR; NON-HORMONAL ANTI-NEOPLASTIC CHEMO ADMIN, SUBCUTANEOUS OR INTRAMUSCUL AR; NON-HORMONAL ANTI-NEOPLASTIC CHEMO ADMIN, SUBCUTANEOUS OR INTRAMUSCUL AR; NON-HORMONAL ANTI-NEOPLASTIC OFFICE [id number] BODY MASS INDEX DOCD SYST BP LT 130 MM HG DIAST BP < 80 MM HG Advance Directives Directive Yes / No Effective Date File Name No Information Encounters Encounter Description Practice Location Reason(s) For Visit Diagnoses Date Provider Providers Copied on Encounter [facility], [address], [place], [place], [id number] , tel: [phone] [facility] No Information 0 Carson Deleon. [address] [place] [address], [id number], . [phone] [facility], [id number] [place] [address], [id number] , tel: [phone] [facility] Urticaria due to cold and heat 0 Carson Deleon. [address] [place] [address], [id number], . tel:[phone] Referring Provider: Pancho Byrd, [address] [place] [address], [address] . tel:[phone] [facility], [id number] [place] [address], [id number] , tel:[phone] [facility] Urticaria due to cold and heat 0 Carson Deleon. [address] [place] [address], [id number], . tel:[phone] Referring Provider: Pancho Bryd [address] [place] [address], [address] . tel:[phone] [facility], [id number] [place] [address], [id number] , [place] tel: [phone] [facility] Urticaria due to cold and heat Jul-0 9 Carson Deleon. [address] [place] [address], [id number], . tel:[phone] Referring Provider: Pancho Byrd, [address] [place] [address], [address] . tel:[phone] [facility], [address], [place], [place], [id number] , [place] tel: [phone] [facility] No Information 9 Carson Pancho. [address] [place] [address], [id number], [place]. tel:[phone] [facility], [address], [place], [place], [address] , [place] tel: [phone] [facility] No Information 9 Carson Deleon. [address] [place] [address], [id number], [place]. tel:[phone] [facility], [address], [place], [place], [id number] , [place] tel: [phone] [facility] Urticaria due to cold and heat 9 Carson Pancho. [address] [place] [address], [id number], . tel:[phone] Referring Provider: Pancho Byrd, [address] [place] [address], [address] . tel:[phone] [facility], [address], [place], [place], [id number] , [place] tel: [phone] [facility] No Information 9 Carson Deleon. [address] [place] [address], [id number], . tel:[phone] [facility], [address], [place], [place], [id number] , [place] tel: [phone] [facility] No Information 9 Carson Deleon. [address] [facility], [address], [id number], [place]. tel:[phone] OFFICE [id number], [address], [place], [place], [address] , tel: [phone] [facility] urticaria (chief complaint) Other urticaria Carson Deleon. [address] [facility], [address], [id number], [place]. tel:[phone] Referring Provider: Grey Ayala, [address] [facility] [address], [place], [address]. tel:[phone] [facility], [address], [place], [place], [address] , [place] tel: [phone] [facility] Urticaria due to cold and heat Carson Deleon. [address] [facility], [address], [id number], [place]. [phone] Referring Provider: Pancho Byrd, [address], [address] . tel:[phone] [facility], [address], [place], [place], [id number] , [place] tel: [phone] [facility] Urticaria due to cold and heatOther urticaria Fe 9 Shine Manuela. [address] [facility], [address], [id number], [place]. [phone] Referring Provider: Pancho Byrd, [address], [address] . tel:[phone] [facility], [address], [place], [place], [address] , [place] tel: [phone] [facility] Other urticariaUrticar ia due to cold and heat 8 Shine Manuela. [address] [facility], [address], [id number], [place]. tel:[phone] Referring Provider: Pancho Byrd, [address], [address] . tel:[phone] [facility], [address], [place], [place], [address] , tel:[phone] [facility] Urticaria due to cold and heatOther urticaria 8 Carson Deleon. [address] [facility], [address], [id number], [place]. tel:[phone] Referring Provider: Pancho Byrd, [address], [address] . tel:[phone] [facility], [address], [place], [place], [address] , [place] tel: [phone] [facility] Urticaria due to cold and heatOther urticaria 8 Carson Deleon. [address] [facility], [address], [id number], [place]. tel:[phone] Referring Provider: Grey Ayala, [address], [place], [address]. tel:[phone] [facility], [address], [place], [place], [address] , [place] tel: [phone] [facility] Urticaria due to cold and heatOther urticaria 8 Carson Deleon. [address] [facility], [address], [id number], [place]. tel:[phone] Referring Provider: Pancho Byrd, [address], [address] . tel:[phone] [facility], [address], [place], [place], [address] , [place] tel:[phone] [facility] Other urticariaUrticar ia due to cold and heat 8 Carson Deleon. [address] [facility], [address], [id number], [place]. tel:[phone] Referring Provider: Pancho Byrd, [address] [place] [address], [address] . tel:[phone] [facility], [address] [place] [address], [id number] , tel:[phone] [facility] Other urticariaUrticar ia due to cold and heat Shine Manuela. [address] [place] [address], [id number], . tel:[phone] Referring Provider: Pancho Byrd, [address] [place] [address], [address] . tel:[phone] [facility], [address] [place] [address], [id number] , tel:[phone] [facility] Other urticariaUrticar ia due to cold and heat Carson Deleon. [address] [place] [address], [id number], . tel:[phone] Referring Provider: Pancho Byrd, [address] [place] [address], [address] . tel:[phone] [facility], [address] [place] [address], [id number] , tel:[phone] [facility] Other urticaria Shine Manuela. [address] [place] [address], [id number], . tel:[phone] Referring Provider: Pancho Byrd, [address] [place] [address], [address] . tel:[phone] [facility], [address] [place] [address], [id number] , tel:[phone] [facility] Urticaria due to cold and heat Shine Manuela. [address] [place] [address], [id number], . tel:[phone] Referring Provider: Pancho Byrd, [address] [place] [address], [address] . tel:[phone] [facility], [address] [place] [address], [id number] , [phone] [facility] Urticaria due to cold and heat 7 Shine Manuela. [address] [place] [address], [id number], . tel:[phone] Referring Provider: Pancho Bydr, [address] [place] [address], [address] . tel:[phone] [facility], [address], [place], [place], [address] , tel:[phone] [facility] Urticaria due to cold and heat Dec- 0 7 Shine Manuela. [address] [place] [address], [id number], . tel:[phone] Referring Provider: Pancho Byrd, [address] [place] [address], [address] . tel:[phone] [facility] [address] [place] [address], [id number] , tel:[phone] [facility] Urticaria due to cold and heat 7 Shine Manuela. [address] [place] [address], [id number], . tel:[phone] Referring Provider: Pancho Byrd, [address] [place] [address], [address] . tel:[phone] [facility] [address] [place] [address], [id number] , tel:[phone] [facility] Urticaria due to cold and heat Aug-2 2201 6 Shine Manuela. [address] [place] [address], [id number], . tel:[phone] Referring Provider: Pancho Byrd, [address] [place] [address], [address] . tel:[phone] [facility] [address] [place] [address], [id number] , tel: [phone] [facility] Other urticaria 6 Carson Deleon. [address] [place] [address], [id number], . tel:[phone] Referring Provider: Pancho Byrd, [address] [place] [address], [address] . [phone], [id number] , tel: [phone] [facility] Other urticaria 6 Shine Manuela. [address] [place] [address], [id number], . tel:[phone] Referring Provider: Pancho Byrd, [address] [place] [address], [address] . tel:[phone] [facility] [address] [place] [address], [id number] , tel: [phone] [facility] Urticaria due to cold and heat 6 Shine Manuela. [address] [place] [address], [id number], . tel:[phone] Referring Provider: Pancho Byrd, [address] [place] [address], [address] . tel:[phone] [facility] [address] [place] [address], [id number] , tel:[phone] [facility] Urticaria due to cold and heat 6 Shine Manuela. [address] [place] [address], [id number], . tel:[phone] Referring Provider: Pancho Byrd, [address] [place] [address], [address] . tel:[phone] [facility], [address] [place] [address], [id number] , tel:[phone] [facility] Urticaria due to cold and heat May-0 5-201 6 Shine Manuela. [address] [place] [address], [id number], . tel:[phone] Referring Provider: Pancho Byrd, [address] [place] [address], [address] . tel:[phone], [id number] , tel:[phone] [facility] Urticaria due to cold and heat Dec- 3-201 6 Shine Manuela. [address] [place] [address], [id number], . tel:[phone] Referring Provider: Pancho Byrd, [address] [place] [address], [address] . tel:[phone], [id number] , tel:[phone] [facility] Urticaria due to cold and heat Oct- 6-201 6 Shine Manuela. [address] [place] [address], [id number], . tel:[phone] Referring Provider: Pancho Byrd, [address] [place] [address], [address] . tel:[phone], [id number] , tel:[phone] [facility] Urticaria due to cold and heat Feb- 1-201 6 Shine Manuela. [address] [place] [address], [id number], . tel:[phone] Referring Provider: Pancho Byrd, [address] [place] [address], [address] . tel:[phone] [facility], [address], [place], [id number] , [phone] [facility] Urticaria due to cold and heat 6 Shine Manuela. [address] [place] [address], [id number], . tel:[phone] Referring Provider: Pancho Byrd, [address] [place] [address], [address] . tel:[phone] [facility] [address], [place], [address] , tel:[phone] [facility] Other urticaria 5 Shine Manuela. [address] [place] [address], [id number], . tel:[phone] Referring Provider: Pancho Byrd, [address] [place] [address], [address] . tel:[phone] [facility] [address], [place], [address] , [place] tel:[phone] [facility] Angioneurotic edema, initial encounterOther urticaria 5 Shine Manuela. [address] [place] [address], [id number], [place]. tel:[phone] Referring Provider: Pancho Byrd, [address] [place] [address], [address] . tel:[phone] [facility] [address], [place], [place], [id number] , tel:[phone] [facility] ANGIONEUROTIC EDEMA 5 Shine Manuela. [address] [place] [address], [id number], . tel:[phone] Referring Provider: Pancho Byrd, [address] [place] [address], [address] . tel:[phone] [facility], [address] [place] [address], [id number] , tel:[phone] [facility] Other specified urticaria Carson Deleon. [address] [place] [address], [id number], . tel:[phone] Referring Provider: Pancho Byrd, [address] [place] [address], [address] . tel:[phone] [facility], [address], [place], [place], [address] , tel: [phone] [facility] ANGIONEUROTIC EDEMA Carson Deleon. [address] [place] [address], [id number], . tel:[phone] Referring Provider: Pancho Byrd, [address] [place] [address], [address] . tel:[phone] [facility], [address] [place] [address], [id number] , tel:[phone] [facility] Urticaria due to cold and heat 5 Shine Manuela. [address] [place] [address], [id number], . tel:[phone] Referring Provider: Pancho Byrd, [address] [place] [address], [address] . tel:[phone] [facility], [address] [place] [address], [id number] , tel:[phone] [facility] ANGIONEUROTIC EDEMA Feb 5 Shine Manuela. [address] [place] [address], [id number], [place]. tel:[phone] Referring Provider: Pancho Byrd, [address] [place] [address], [address] . tel:[phone] [facility], [address], [place], [place], [id number] , tel:[phone] [facility] Urticaria due to cold and heat 4 Shine Manuela. [address] [place] [address], [id number], . tel:[phone] Referring Provider: Pancho Byrd, [address] [place] [address], [address] . tel:[phone] [facility], [address], [place], [place], [address] , tel: [phone] [facility] Urticaria due to cold and heat 4 Shine Manuela. [address] [place] [address], [id number], . tel:[phone] Referring Provider: Pancho Byrd, [address] [place] [address], [address] . tel:[phone] [facility] [address], [place], [id number] , tel: [phone] [facility] Urticaria due to cold 3 Tiara Atkins. [address] [facility] [address], [place], [id number]. tel:[phone] Referring Provider: Pancho Byrd, [address] [place] [address], [address] . tel:[phone] [facility], [address], [place], [place], [address] , tel:[phone] [facility] Other specified urticaria 2 Carson Deleon. [address] [place] [address], [id number], . tel:[phone] Referring Provider: Mily Aguiar, [address] [facility] [address], [place], [address]. tel:[phone] [facility], [address], [place], [place], [id number] , tel:[phone] [facility] No Information Oct- 1 Carson Deleon. [address], [id number], . tel:[phone] [facility], [address], [place], [place], [address] , tel: [phone] [facility] URTICARIA NECANGIONEUROTIC EDEMA 0 Carson Deleon. [address], [id number], . tel:[phone] Family History Family Member Type Diagnosis Age At Onset No Information Payers Payer name Insurance type Covered libertarian ID Maldonadoa michael(s) [facility] [id number] Social History Type Description Quantity Date Captured Comments Sex Female Smoking Status No Information Chief Complaint And Reason For Visit No Information Reason For Referral Reason For Referral No Information History Of Present Illness Encounter Date Complaint History Of Prese nt Illness urticaria urticaria (comments) Last seen and before this on 01/10/17 for office visitsOverall stable with combination of medications (antihistamine) and Xolair past 3 years every 2 monthsHas tried to go longer between Xolair doses but beyond 8 weeks will notice increase in generalized pruritus, change in voice and one time with a 13 week interval had t small lumps at the base of her neck. Usually voice better within 30 minutes of the next Xolair injection and the lumps were down within a day. Meds: Fexofenadine 90 mg once daily and Ranitidine 150 mg QD.PMH:History of chronic hives for the past 10+ years that are triggered by the cold temperatureInitially added Xolair IM from 10/13/14-01/13/15 with good response so stoppedHives returned in late June 2015 when she was exposed to the cold weather so restarted Xolair again 07/25/15 and remains on since then. Functional Status Date Functional Assessmen t No Information Medications Administered Medication Instructions Dosage Effective Dates (start - stop) Status Comments Xolair 150 mg/mL subcutaneous syringe inject (300MG) by subcutaneous route every 4 weeks - No Longer Active Instructions Date Instruction Additional Infor mary Continue with bimont hly Xolair (omalizumab) injections (300 mg) Continue Fexofenadine 90 mg and Ranitidine 150 mg each once dailyReview recent labs looking at ESR, thyroid levels, and possibly an FIFI titer (had been 1:160 in 2008 and normal ESR but elevated thyroid antibodies) Related to Other urticaria Medication management Assessments Type Assessment Date No Information Patient Care Teams Name Effective Dates (start - stop) Status Members No Information
[2024-09-29] MEDS: cefTRIAXone 2 GM/NS 100 ML 2 GM/100 ML BAG IVPB (04:29)
[2024-09-29] MEDS: LACTATED RINGERS 1,000 ML 999 ML IV CONT (04:30)
[2024-09-29 04:43] LABS: Hematocrit 25.3 % (37.0-47.0); Hemoglobin 8.3 g/dL (12.0-15.0); Immature Platelet Fraction Pct 24.8 % (0.9-11.2); Mean Corpuscular HGB Conc 32.8 g/dl (32-36); Mean Corpuscular Hemoglobin 34.4 pg (26-34); Mean Platelet Volume 11.6 fl (7.4-10.4); Platelet Count Result 27 k/mm3 (150-375); Red Blood Count 2.41 M/mm3 (4.2-5.4); Red Cell Distribution Width 14.6 % (11.5-14.5)
[2024-09-29 04:48] LABS: Alanine Aminotransferase 42 U/L (6-35); Albumin Level 3.7 g/dL (3.5-5.1); Alkaline Phosphatase 114 U/L (38-126); Anion Gap 6 mmol/L (4-12); Aspartate Amino Transferase 39 U/L (14-36); Bilirubin,Total 0.7 mg/dL (0.2-1.3); Blood Urea Nitrogen 12 mg/dL (7-17); Calcium 8.8 mg/dL (8.4-10.2); Carbon Dioxide 31 mmol/L (22-30); Chloride 98 mmol/L (98-107); Estimated CRCL calculation 42 ml/min; Estimated Glomerular Filt Rate 51; Glucose 121 mg/dL (65-110); Potassium 3.7 mmol/L (3.4-5.0); Sodium 135 mmol/L (137-145)
[2024-09-29 05:02] LABS: INR 1.3; Prothrombin Time 16.6 Seconds (11.1-14.7)
[2024-09-29 05:03] LABS: Partial Thromboplastin Time 42.9 Seconds (22.3-36.8)
[2024-09-29 05:06] LABS: White Blood Count 114.9 K/mm3 (4.5-10.0)
[2024-09-29 05:10] LABS: Band Neutrophils Percent 4 % (0-6); Lymphocytes Absolute Manual 25.27 K/mm3 (1.1-4.5); Metamyelocytes Percent 5 %; Monocytes Absolute Manual 75.83 K/mm3 (0.1-0.90); Monocytes Percent Manual 66 % (3-9); Neutrophils Absolute Manual 8.04 K/mm3 (1.7-7.2); Neutrophils Percent Manual 3 % (46-73); Nucleated Red Blood Cells 1 %; Platelet Estimate Decreased (Adequate); Total Cells Counted 100
[2024-09-29 05:11] LABS: Atypical Lymphocytes Present; Schistocytes None Seen; Smudge Cells PRESENT
--- NOTE | 2024-09-29 05:37 | PC.NURSE ---
Da copeland on [facility] waitlist for [place]. they Will call and request an update from day shift rn to their call center.
[2024-09-29] MEDS: KETOROLAC 15 MG/ML VIAL (*BKC) IV PUSH (05:48)
[2024-09-29] MEDS: LACTATED RINGERS 1,000 ML 125 ML IV CONT (05:48)
[2024-09-29 06:53] LABS: Phosphorus 4.4 mg/dL (2.5-4.5); Uric Acid 6.7 mg/dL (2.5-7.5)
--- NOTE | 2024-09-29 07:19 | PC.NURSE ---
Kendrick Cruz [phone]
[2024-09-29 07:45] VITALS: BP 133/69; PULSE 87; RESP 18; O2SAT 97
[2024-09-29] MEDS: CITALOPRAM HYDROBROMIDE 20 MG TABLET PO (08:25)
[2024-09-29] MEDS: LORATADINE 10 MG TABLET PO (08:50)
--- NOTE | 2024-09-29 09:43 | PC.NURSE ---
[facility] transfer center called and got an update on pt, pt is still waiting on a bed.
[2024-09-29 10:12] VITALS: BP 133/69; PULSE 86; RESP 18; O2SAT 100
[2024-09-29 11:33] VITALS: BP 137/75; PULSE 98; RESP 18; O2SAT 99
== END 2024-09-29 13:13 | disposition short-term general hospital (02) ==
PROVIDERS: Emergency Provider Student in an Organized Health Care Education/Training Program; PCP Family Medicine
DX: C96.9 Malignant neoplasm of lymphoid, hematopoietic and related tissue, unspecified (principal); N39.0 Urinary tract infection, site not specified; D69.6 Thrombocytopenia, unspecified; D72.821 Monocytosis (symptomatic); F41.1 Generalized anxiety disorder; K21.9 Gastro-esophageal reflux disease without esophagitis; Z85.3 Personal history of malignant neoplasm of breast; Z96.653 Presence of artificial knee joint, bilateral
CPT/HCPCS: 36415; 80053; 81001; 84100; 84550; 85025; 85055; 85610; 85730; 88184; 96361; 96365; 96375; 99285; A9270; J0696; J1885; J7120

== ENCOUNTER 2025-01-01 22:26 | Emergency (ER) | payer BC, SELFPAY ==
[2025-01-01 22:30] VITALS: BP 149/78; PULSE 99; RESP 18; TEMP 36.7; O2SAT 100
[2025-01-02 01:45] VITALS: BP 117/53; PULSE 89; RESP 15; O2SAT 99
--- NOTE | 2025-01-02 02:01 | ED.GENADULT ---
HPI - General Adult General Chief complaint: Skin/Abscess/Foreign Body Stated complaint: Rapidly spreading rash Time Seen by Provider: 01/02/25 01:46 History of Present Illness HPI narrative: Patient is a 59-year-old female who presents to the emergency department this evening complaining of a diffuse rash/hives that broke out throughout her body around 530 this evening. Patient denies any itching. States that earlier in the day she did have a contrasted CT study performed. Patient admits that this is not her 1st time getting a CT with contrast and she has never had any allergy to contrast in the past. Patient's did states that she was in the bathroom doing her nails and when he walked an the bathroom had a very strong acetone order and he is wondering if this could have caused her hives. Patient is a cancer patient currently on a chemotherapy. She was recently discharged from [facility] after being admitted for 20 days for IV antibiotics due to cellulitis in her vaginal area. Patient states that she is currently on oral antibiotics for this and states that that diffuse hives that she has all over her body made the area around her vagina more red, however, patient states that has been improving since she was discharged and denies any worsening appearance of the cellulitis. Denies any fevers or chills at home, any additional symptoms including any nausea, vomiting, abdominal pain, chest pain or shortness of breath. There are no additional modifying, alleviating, or precipitating factors at this time. Related Data Home Medications ?Medication ?Instructions ?Recorded ?Confirmed ?Last Taken ?Type fexofenadine 180 mg tablet 90 mg PO DAILY 07/27/19 09/29/24 10/23/21 History cholecalciferol (vitamin D3) 50 50 mcg PO DAILY 01/27/21 09/29/24 10/19/21 History mcg (2,000 unit) capsule (Vitamin D3) Allergies Allergy/AdvReac Type Severity Reaction Status Date / Time oxycodone AdvReac Mild Nausea and Verified 01/01/25 22:27 Vomiting Review of Systems Review of Systems: All systems are reviewed and are negative unless stated otherwise in the HPI. [facility] Past Medical History Medical History Bilateral adhesive capsulitis of shoulders BMI 26.0-26.9,adult IBS (irritable bowel syndrome) Anxiety PONV (postoperative nausea and vomiting) History of breast cancer Surgical History Surgical History History of arthroscopic surgery of shoulder Left shoulder arthroscopic subacromial decompression October 23, 2021 History of bilateral knee arthroplasty 2011, Dr. 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 HEENT: PERRL, no rhinorrhea, no post nasal drip, oropharynx clear. Neck: Trachea midline, no JVD, no lymphadenopathy. Cardiovascular: Regular rate and rhythm, no murmurs, rubs or gallops, no peripheral edema. Respiratory: Clear to auscultation bilaterally, no tachypnea, no wheezing, no rhonchi, no rubs, no respiratory distress. Abdomen: Soft, nontender, nondistended, no rebound, no guarding, no peritoneal signs. Musculoskeletal: No joint swelling or deformity, normal muscle tone. Skin: Diffuse urticaria rash noted along the patient's bilateral upper and lower extremities and trunk, area of redness and skin induration noted to the external vaginal area and the vulva, area appears to be healing well, no evidence of abscess formation, exam performed with the presence of female nurse board member Lion. Psychiatric: Alert and oriented, normal behavior and judgment for situation. Neurological: Alert and oriented to person, place, and time. Follows all commands. No focal deficits, speech is clear and fluent. Course Vital Signs Vital signs: Vital Signs Temperature 98.0 F 01/01/25 22:30 Pulse Rate 99 01/01/25 22:30 Respiratory Rate 18 01/01/25 22:30 Blood Pressure 149/78 H 01/01/25 22:30 Pulse Oximetry 100 01/01/25 22:30 Oxygen Delivery Room Air 01/01/25 22:30 Temperature 98.0 F 01/01/25 22:30 Pulse Rate 89 01/02/25 01:45 Respiratory Rate 15 01/02/25 01:45 Blood Pressure 117/53 L 01/02/25 01:45 Pulse Oximetry 99 01/02/25 01:45 Oxygen Delivery Room Air 01/01/25 22:30 Medical Decision Making MDM Narrative Medical decision making narrative: The patient was evaluated by myself in the emergency department. History is obtained from patient who is an independent historian and physical exam was performed. External medical records were reviewed at this time. IV was established and pertinent tests were ordered. Patient was administered 125 mg of IV Solu-Medrol, 20 mg of IV Pepcid and 50 mg of IV Benadryl for your decal your rash. Differential diagnosis considerations include allergic reaction to environmental factor versus iodine dye, medication side effect including antibiotics. Comorbidities impacting this visit include current chemotherapy treatment. I have evaluated and discussed social determinants of health with the patient that could potentially impact subsequent diagnosis and treatment plans. On repeat assessment of the patient, reevaluation revealed that the patient is doing well and is in no acute distress. Patient symptoms have improved since she arrived to our emergency department. Repeat vital signs were all reviewed and noted to be stable. Differential diagnosis and treatment plan were discussed with the patient at bedside. Patient agrees with discussion and after shared medical decision making agrees with discharge. All questions were answered to the patient's satisfaction. Patient will follow up with her PCP/Oncologist in 3-5 days. Patient was provided with strict return precautions and instructed to return to the emergency department if any new or worsening symptoms develop. The patient was discharged in stable condition. Vital Signs Vital Signs: Vital Signs Temperature 98.0 F 01/01/25 22:30 Pulse Rate 99 01/01/25 22:30 Respiratory Rate 18 01/01/25 22:30 Blood Pressure 149/78 H 01/01/25 22:30 Pulse Oximetry 100 01/01/25 22:30 Oxygen Delivery Room Air 01/01/25 22:30 Temperature 98.0 F 01/01/25 22:30 Pulse Rate 89 01/02/25 01:45 Respiratory Rate 15 01/02/25 01:45 Blood Pressure 117/53 L 01/02/25 01:45 Pulse Oximetry 99 01/02/25 01:45 Oxygen Delivery Room Air 01/01/25 22:30 Discharge Plan Discharge Clinical Impression: Allergic reaction, Urticaria Patient Disposition: Home Condition: Improved Instructions: Antibiotic Form, Urticaria (ED) Additional Instructions: Please follow-up with your family doctor within the next 3-5 days. Return to the emergency department if any new or worsening symptoms develop. Patient Language: Italian Prescriptions: No Action alprazolam 0.25 mg tablet 0.25 mg PO DAILY PRN (Reason: anxiety) Qty: 10 0RF clobetasol 0.05 % cream 1 applic topical BID 14 Days Qty: 30 1RF fexofenadine 180 mg tablet 90 mg PO DAILY cholecalciferol (vitamin D3) [Vitamin D3] 50 mcg (2,000 unit) Capsule 50 mcg PO DAILY citalopram 20 mg tablet 20 mg PO QPM Qty: 90 2RF Follow-up/Referrals: Grey Ayala MD [Primary Care Provider] - 3 Days Time of Disposition: 03:05
[2025-01-02] MEDS: methylPREDNISolone SOD SUCC 125 MG VIAL IV PUSH (02:08)
[2025-01-02] MEDS: FAMOTIDINE 20 MG/2 ML VIAL IV PUSH (02:08)
[2025-01-02] MEDS: diphenhydrAMINE HCl INJ 50 MG/ML VIAL IV PUSH (02:08)
[2025-01-02 03:21] VITALS: BP 130/64; PULSE 80; RESP 15; O2SAT 99
--- OUTSIDE RECORDS SUMMARY | 2025-01-02 15:39 | XMS_ITS ---
Vicente Mandujano MD LAB BODY FLUIDS AND STOOLS ORDERABLES Final Result Performing Organization Address City/[facility]/ZIP Co de Phone Number [facility] [place] [address] * MyeloSeq tracking order Bone marrow (11/04/2024 12:02 PM REFINERY PROCESS ENGINEER) [facility] MyeloSeq Received Bone marrow 11/04/2024 12:0 2 PM REFINERY PROCESS ENGINEER 11/04/2024 2:42 PM REFINERY PROCESS ENGINEER Narrative [facility] - 11/05/2024 9:38 AM REFINERY PROCESS ENGINEER Specimen type (select one):->Marrow Vicente Mandujano MD LAB BODY FLUIDS AND STOOLS ORDERABLES Final Result Performing Organization Address [facility] [place] [address] * Minimal Residual Disease-AML (11/04/2024 12:02 PM REFINERY PROCESS ENGINEER) [facility] MRD-AML See scanned report Comment: Testing performed by: [facility] 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 [place] [address] * Flow Leukemia/Lymphoma Bone marrow (11/04/2024 12:02 PM REFINERY PROCESS ENGINEER) [facility] Suárez Stain Test Completed Leukemia/Lymp emily Result See separate Surgical Pathology report. [facility] Bone marrow 11/04/2024 12:0 2 PM REFINERY PROCESS ENGINEER 11/04/2024 2:42 PM REFINERY PROCESS ENGINEER Narrative [facility] - 11/05/2024 12:21 PM REFINERY PROCESS ENGINEER Tube information: Green top (Sodium Heparin) Vicente Mandujano MD LAB PATHOLOG Y ORDERABLES Final Result Performing Organization Address [facility] Co de Phone Number [facility] Department [place] [address] * Hematologic Molecular Algorithm Bone marrow (11/04/2024 12:02 PM REFINERY PROCESS ENGINEER) Pathologist [facility] Heme Molecular Algorithm Received Bone marrow 11/04/2024 12:0 2 PM REFINERY PROCESS ENGINEER 11/05/2024 8:58 AM REFINERY PROCESS ENGINEER Narrative [facility] - 11/06/2024 4:13 PM REFINERY PROCESS ENGINEER Tube information: [place] top Clinical History / Treatment Plan:->New AML Select diagnosis - - Appropriate molecular tests will be performed based on histopathological diagnosis.->AML 11/06/2024 - HMA complete, FLT3 ITD MRD by NGS testing ordered. Vicente Mandujano MD LAB BODY FLUIDS AND STOOLS ORDERABLES Final Result Performing Organization Address [facility] Co de Phone Number [facility] Department [place] [address] * Surgical pathology (11/04/2024 12:02 PM REFINERY PROCESS ENGINEER) Bone marrow (Bone Marrow Biopsy) 11/04/2024 12:02 PM REFINERY PROCESS ENGINEER 11/04/2024 2:29 PM REFINERY PROCESS ENGINEER Narrative PATHOLOGY [facility] - 11/05/2024 4:41 PM REFINERY PROCESS ENGINEER EPIC results best viewed via link to PDF [facility] [place] [address] Note to Patients: This report may contain a detailed description of human tissue sent by a health care provider to the laboratory for pathologic evaluation. The content of this report is essential for diagnosis and may provide important critical findings. This information may be unfamiliar to patients to review without a medical professional present. It is advised that the patient review this report in the presence of a health care provider who can answer questions and explain the details. SURGICAL PATHOLOGY REPORT FINAL WITH ADDENDUM Patient Name: RENU DURON Gender: F : 1965 (Age: 59) Address: [address] [place], [place] [id number] Hospital #: [id number] Taken:11/04/2024 Received:11/04/2024 Reported: 11/05/2024 Patient Type: [facility] SPECIMEN Service: Laboratory Location: Physician(s): Vicente Mandujano MD Diagnosis: Bone marrow, left posterior iliac crest, core biopsy, clot, and aspirate: - Normocellular bone marrow with progressive multilineage hematopoiesis - No increase in blasts rc/11/05/2024 12:16 By this signature, I attest that the above diagnosis is based upon my personal examination of the slides(and/or other material indicated in the diagnosis). Agus Schneider M.D. Report Electronically Reviewed and Signed Out By Agus Schneider M.D. 11/05/2024 16:41:31 Diagnosis Comment For details on the peripheral blood smear (if submitted), bone marrow aspirate, and core biopsy, please see the attached synoptic report. If applicable, correlation with concurrent flow cytometry (Addenda/Procedures below), cytogenetics/FISH, and molecular studies is suggested for full evaluation. Microscopic Description and Comment: Microscopic examination substantiates the above cited diagnosis. 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 Operative procedure: Bone marrow biopsy. Specimen(s) Received: A: Bone marrow biopsy, left posterior iliac crest B: Bone Marrow Clot - BJ C: Bone marrow, left aspirate for flow cytometry Gross Description: Received in two formalin jars labeled with the patient's identifiers. A. Received in formalin, labeled LPIC core and consists of two red cores of bone with attached hemorrhagic material measuring 0.8-1.5 cm in length by 0.2 cm in diameter. Labeled A1. EDTA decalcification.. Jar 0. B. Received in formalin, labeled LPIC clot and consists of a 2.5 by 1.7 x 0.3 cm fragment of hemorrhagic material. Labeled B1. Jar 0. elsw/11/04/2024 15:10 PA(s): Nuzhat Ugalde CBC: Date: 11/03/24 WBCs: 2.2x10^3/mcl Hemoglobin: 11.8g/dl Hematocrit: 34.9% Platelets: 386x10^3/mcl Mean corpuscular volume (MCV): 87.8fl Red cell distribution width (RDW-CV): 18.4% Neutrophils, absolute: 1.3 K/cumm Lymphocytes, absolute: 0.1 K/cumm Monocytes, absolute: 0.8 K/cumm Eosinophils, absolute: 0.0 K/cumm Basophils, absolute: 0.1 K/cumm Neutrophils: 56.7% Lymphocytes: 5.9% Monocytes: 34.2% Eosinophils: 0.2% Basophils: 3.0% Peripheral blood smear (Suárez-Giemsa): The peripheral blood morphology reflects the CBC values. Bone marrow aspirate smear (Suárez-Giemsa stain): Quality: Adequate Spicules: Present Marrow cellularity: Within normal limits Myeloid maturation: Normal Erythroid maturation: Normal Myeloid/Erythroid Ratio: Within normal limits Megakaryocyte number: Within normal limits Megakaryocytic maturation: Normal, Small Lymphocytes: Normal Plasma cells: Normal Iron: Gale Score 3-4 (Normal). Gale score is a grading method for interpretation of bone marrow iron stain and provides an assessment of total bone marrow iron stores. Differential count: Total # of Cells Counted:200 Blasts: 1 Promyelocytes: 0 Myelocytes+Metamyelocytes:23 Bands+Neutrophils:35 Eosinophils: 2 Basophils: 1 Plasma cells: 3 Lymphocytes: 2 Monocytes: 6 Erythroids: 27 Bone marrow core biopsy (decalcified, H&E and Leder stains): Left, iliac crest Quality: Adequate Cellularity: 30-40% Myeloid maturation: Normal Erythroid maturation: Normal The Leder stain shows that the Myeloid/Erythroid Ratio is: Within normal limits Megakaryocyte number: Within normal limits Megakaryocytic maturation: Normal The Leder stain is used to assess for lymphoid aggregates: None Plasma cells: Normal Reticulin and Trichrome stains show: No significant fibrosis (MF-0) CLOT SECTION: The bone marrow clot section including Leder and H&E stains are: Similiar in cellularity and composition to the bone marrow core By this signature, I attest that the above diagnosis is based upon my personal examination of the slides(and/or other material). Addenda/Procedures Flow Cytometry Ordered:11/04/2024Status:Signed OutFlow Cytometry Complete:11/05/2024y:Agus Schneider M.D.Flow Cytometry Signed Out: 11/05/2024 Diagnosis Bone marrow, left aspirate for flow cytometry: - No increase in blasts detected Comment Specimen quality: Adequate Flow cytometry identifies no increase in myeloid blasts. Correlation with morphology (if submitted), clinical, laboratory, and genetic findings is required for definitive diagnosis. A malignant process cannot be excluded solely on the basis of this assay. A Suárez-Giemsa stained cytospin from the flow cytometry specimen was examined for internal quality process auditor purposes. Flow cytometry was performed using antibodies to the following cellular antigens: CD45, CD34, CD2, CD3, CD4, CD5, CD7, CD8, CD56, TCR-GD, CD16, CD10 , CD13, CD14, CD64, HLR-DR, CD11b, CD15, CD123, CD117, CD33, CD38, CD19. Total antigens analyzed: 23 By this signature, I attest that the above diagnosis is based upon my personal examination of the slides(and/or other material indicated in the diagnosis). Agus Schneider M.D.Report Electronically Reviewed and Signed Out By Agus Schneider M.D. 11/05/2024 16:38:44Peter Dow MD, PhD Addendum Ordered:11/17/2024Status:Signed OutAddendum Complete:11/17/2024y:Agus Schneider M.D.Addendum Signed Out:11/17/2024 Addendum Diagnosis A digital scan of the original reference lab report will begin on page two of this addendum. By this signature, I attest that the above diagnosis is based upon my personal examination of the slides(and/or other material indicated in the diagnosis). Agus Schneider, M.D.Report Electronically Reviewed and Signed Out By Agus Schneider M.D. 11/17/2024 15:07:05 The performance characteristics of some immunohistochemical stains, fluorescence in-situ hybridization tests and immunophenotyping by flow cytometry cited in this report (if any) were determined by the Surgical Pathology and Flow Cytometry Departments at [facility] as part of an ongoing quality coordinator program and in compliance with federally mandated regulations drawn from the Clinical Laboratory Improvement Act of 1988 (CLIA '88). Some of these tests rely on the use of analyte specific reagents and are subject to specific labeling requirements by the US Food and Drug Administration. Such diagnostic tests may only be performed in a facility that is certified by the Department of Health and Human Services as a high complexity laboratory under CLIA '88. The FDA has determined that such clearance or approval is not necessary. This test is used for clinical purposes. It should not be regarded as investigational or for research. Nevertheless, federal rules concerning the medical use of analyte specific reagents require that the following disclaimer be attached to the report: This test was developed and its performance characteristics determined by the Surgical Pathology and Flow Cytometry Departments of [facility]. It has not been cleared or approved by the U. S. Food and Drug Administration. IMAGES AND SCANNED DOCUMENTS, IF INCLUDED, ONLY VIEWABLE IN PDF VERSION OF REPORT Vicente Mandujano MD LAB PATHOLOG Y ORDERABLES Final Result PATHOLOGY [facility] 3rd Floor [place], [place] [phone] * eGFR (11/03/2024 1:14 PM REFINERY PROCESS ENGINEER) eGFR >90 >=60 mL/min/1. 73 m2 Comment: Interpretive Data Reference Interval Normal >/= 90 mL/min/1.73m2 Mildly decreased* 60 - 89 mL/min/1.73m2 Mildly to moderately decreased 45 - 59 mL/min/1.73m2 Moderately to severely decreased 30 - 44 mL/min/1.73m2 Severely decreased 15 - 29 mL/min/1.73m2 Kidney Failure < 15 mL/min/1.73m2 *Relative to young adult level Estimated glomerular filtration rate is determined by the 2020 CKD-EPI equation recommended by the National Kidney Foundation (A Unifying Approach to GFR Estimation: Recommendations of the NKF-ASK Task Force on Reassessing the Inclusion of Race in Diagnosing Kidney Disease, JASN 2020). The CKD-EPI equation should not be used for patients with unstable renal function and has not been validated in children and those over 70. Current interpretive data was last reviewed 2021. Blood 11/03/2024 1:14 PM REFINERY PROCESS ENGINEER 11/03/2024 1:26 PM REFINERY PROCESS ENGINEER us Vicente Mandujano MD LAB BLOOD OR DERABLES Final Result DAVID GARCÍA [facility] Department [place] [address] * (ABNORMAL) Differential, auto (11/03/2024 1:14 PM REFINERY PROCESS ENGINEER) Neutrophil abs 1.3(L) 1.5 - 6.5 K/cumm Comment:Testing performed by : [facility], [address] [place], [place] [phone] Lymphocyte abs 0.1(L) 0.8 - 3.3 K/cumm [facility] Comment:Testing performed by : [facility], [address] [place] [phone] Monocyte abs 0.8 0.2 - 0.8 K/cumm [facility] Comment:Testing performed by : [facility], [address] [place] [phone] Eosinophil abs 0.0 0.0 - 0.5 K/cumm [facility] Comment:Testing performed by : [facility], [address] [place] [phone] Basophil abs 0.1 0.0 - 0.1 K/cumm [facility] Comment:Testing performed by : [facility], [address] [place] [phone] Neutrophil pct 56.7 % [facility] GAR[facility]CA Comment: Interpretive Data Percent cell count reference ranges are not reported, since discordance with absolute values may lead to misinterpretation of CBC data. Current Interpretive Data was last revised on 2017. Testing performed by: [facility], [address] [place] [phone] Lymphocyte pct 5.9 % [facility] Comment: Interpretive Data Percent cell count reference ranges are not reported, since discordance with absolute values may lead to misinterpretation of CBC data. Current Interpretive Data was last revised on 2017. Testing performed by: [facility], [address] [place] [phone] Monocyte pct 34.2 % [facility] Comment: Interpretive Data Percent cell count reference ranges are not reported, since discordance with absolute values may lead to misinterpretation of CBC data. Current Interpretive Data was last revised on 2017. Testing performed by: [facility], [address] [place] [phone] Eosinophil pct 0.2 % [facility] Comment: Interpretive Data Percent cell count reference ranges are not reported, since discordance with absolute values may lead to misinterpretation of CBC data. Current Interpretive Data was last revised on 2017. Testing performed by: [facility], [address] [place] [phone] Basophil pct 3.0 % [facility] Comment: Interpretive Data Percent cell count reference ranges are not reported, since discordance with absolute values may lead to misinterpretation of CBC data. Current Interpretive Data was last revised on 2017. Testing performed by: [facility], [address] [place] [phone] Blood 11/03/2024 1:14 PM REFINERY PROCESS ENGINEER 11/03/2024 1:24 PM REFINERY PROCESS ENGINEER Vicente Mandujano MD LAB BLOOD OR DERABLES Final Result DAVID GARCÍA One [facility] Department [place] [address] * (ABNORMAL) CMV, IgG Blood (11/03/2024 1:14 PM REFINERY PROCESS ENGINEER) [facility] CMV IgG Equivocal (A) Negative Comment: Interpretive Data Negative - Individuals with negative CMV IgG results are presumed to not have had prior exposure or infection with CMV and are, therefore, considered susceptible to primary infection. Equivocal - Equivocal results may occur during acute infection or may be due to nonspecific binding reactions. Submit an additional sample for testing if clinically indicated. Positive - Indicates presence of detectable CMV IgG antibody. Results indicate past or recent CMV infection. Blood 11/03/2024 1:14 PM REFINERY PROCESS ENGINEER 11/03/2024 2:31 PM REFINERY PROCESS ENGINEER Vicente Mandujano MD LAB MICROBIOLOGY - GENERAL ORDERABLES Final Result [facility] One [facility] Department [place] [address] * (ABNORMAL) CBC with auto differential (11/03/2024 1:14 PM REFINERY PROCESS ENGINEER) [facility] WBC 2.2(L) 3.8 - 9.9 K/cumm Comment:Testing performed by : [facility], [address] [place] [phone] Hgb 11.8(L) 11.9 - 15.5 g/dL [facility]ID [facility] Comment:Testing performed by : [facility], [address] [place] [phone] Hct 34.9(L) 35.6 - 45.5 % [facility]ID [facility] Comment:Testing performed by : [facility], [address] [place] [phone] Plt 386 150 - 400 K/cumm [facility] Comment:Testing performed by : [facility], [address] [place] [phone] MPV 7.4 6.8 - 10.4 fL [facility] Comment:Testing performed by : [facility], [address] [place] [phone] RBC 3.98 3.90 - 5.20 M/cumm DAVID GARCÍA Comment:Testing performed by : [facility], [address] [place] [phone] MCV 87.8 81.3 - 96.4 fL [facility] Comment:Testing performed by : [facility], [address] [place], [place] [phone] MCH 29.7 27.1 - 33.3 pg [facility] Comment:Testing performed by : [facility], [address] [place] [phone] MCHC 33.8 32.3 - 35.7 g/dL [facility] Comment:Testing performed by : [facility], [address] [place], [place] [phone] RDW CV 18.4(H) 11.1 - 14.9 % [facility]ID [facility] Comment:Testing performed by : [facility], [address] [place], [place] [phone] NRBC abs 0.00 0.00 - 0.01 K/cumm [facility]ID [facility] Comment:Testing performed by : [facility], [address] [place], [place] [phone] Blood 11/03/2024 1:14 PM REFINERY PROCESS ENGINEER 11/03/2024 1:24 PM REFINERY PROCESS ENGINEER Vicente Mandujano MD LAB BLOOD OR DERABLES Final Result [facility] One [facility] Department [place] [address] * Type and screen (11/03/2024 1:14 PM REFINERY PROCESS ENGINEER) Bing, indirect Negative ABO Rh A Positive DAVID GARCÍA Blood 11/03/2024 1:14 PM REFINERY PROCESS ENGINEER 11/03/2024 1:45 PM REFINERY PROCESS ENGINEER Narrative DAVID GARCÍA - 11/03/2024 2:44 PM REFINERY PROCESS ENGINEER Has the patient had Daratumumab or Isatuximab in the past 6 months?->Unknown Vicente Mandujano MD LAB BLOOD BA NK TEST ORDERABLES Final Result Performing Organization Address [facility] [place] [address] * Phosphorus (11/03/2024 1:14 PM REFINERY PROCESS ENGINEER) Phosphorus, pl 2.8 2.3 - 4.5 mg/dL Blood 11/03/2024 1:14 PM REFINERY PROCESS ENGINEER 11/03/2024 1:26 PM REFINERY PROCESS ENGINEER Vicente Mandujano MD LAB BLOOD OR DERABLES Final Result Performing Organization Address [facility] [place] [address] * Magnesium (11/03/2024 1:14 PM REFINERY PROCESS ENGINEER) Magnesium 1.8 1.4 - 2.5 mg/dL Blood 11/03/2024 1:14 PM REFINERY PROCESS ENGINEER 11/03/2024 1:26 PM REFINERY PROCESS ENGINEER Result [facility] Vicente Mandujano MD LAB BLOOD OR DERABLES Final Result Performing Organization Address [facility] Co de Phone Number [facility] Department [place] [address] * (ABNORMAL) Lipase (11/03/2024 1:14 PM REFINERY PROCESS ENGINEER) Lipase 159(H) 10 - 99 Units/L Blood 11/03/2024 1:14 PM REFINERY PROCESS ENGINEER 11/03/2024 1:26 PM REFINERY PROCESS ENGINEER Vicente Mandujano MD LAB BLOOD OR DERABLES Final Result Performing Organization Address [facility] Co de Phone Number [facility] [place] [address] * Lactate dehydrogenase (LD) (11/03/2024 1:14 PM REFINERY PROCESS ENGINEER) Lactate dehydrogenase (LDH) 239 100 - 250 Units/L Blood 11/03/2024 1:14 PM REFINERY PROCESS ENGINEER 11/03/2024 1:26 PM REFINERY PROCESS ENGINEER Vicente Mandujano MD LAB BLOOD OR DERABLES Final Result Performing Organization Address City/[facility] Co de Phone Number [facility] Department [place] [address] * (ABNORMAL) Bilirubin, direct (11/03/2024 1:14 PM REFINERY PROCESS ENGINEER) Pathologist [facility] Bilirubin, direct 0.4(H) 0.1 - 0.3 mg/dL Blood 11/03/2024 1:14 PM REFINERY PROCESS ENGINEER 11/03/2024 1:26 PM REFINERY PROCESS ENGINEER Vicente Mandujano MD LAB BLOOD OR DERABLES Final Result Performing Organization Address [facility] Co de Phone Number [facility] Department [place] [address] * (ABNORMAL) Amylase (11/03/2024 1:14 PM REFINERY PROCESS ENGINEER) Pathologist [facility] Amylase 117(H) 30 - 99 Units/L Blood 11/03/2024 1:14 PM REFINERY PROCESS ENGINEER 11/03/2024 1:26 PM REFINERY PROCESS ENGINEER Vicente Mandujano MD LAB BLOOD OR DERABLES Final Result Performing Organization Address [facility] Co de Phone Number [facility] [place] [address] * (ABNORMAL) Comprehensive metabolic panel (11/03/2024 1:14 PM REFINERY PROCESS ENGINEER) Pathologist [facility] Sodium 141 135 - 145 mmol/L Potassium, pl 3.3 3.3 - 4.9 mmol/L [facility] Chloride 105 97 - 110 mmol/L [facility] CO2 30 22 - 32 mmol/L [facility] Anion gap 6 2 - 15 mmol/L [facility] BUN 9 6 - 25 mg/dL [facility] Creatinine 0.58(L) 0.60 - 1.10 mg/dL [facility] Glucose 96 70 - 199 mg/dL [facility] Comment: Interpretive Data Fasting glucose >/= 126 mg/dl is diagnostic for diabetes. Fasting is defined as no caloric intake for at least 8 hours. Fasting glucose between 100 mg/dl to 125 mg/dl is diagnostic of prediabetes. In a patient with classic symptoms of hyperglycemia or hyperglycemic crisis, a random glucose >/= 200 mg/dl is diagnostic for diabetes. In the absence of unequivocal hyperglycemia, results should be confirmed by repeat testing. The classification and Diagnosis of Diabetes Diabetes Care 2021; 46: S19-S40. Current interpretive data was last revised 2022. Calcium 8.9 8.5 - 10.3 mg/dL [facility] Bilirubin, total 0.9 0.1 - 1.2 mg/dL [facility] Protein, pl 6.5 6.5 - 8.5 g/dL [facility] Albumin 3.7 3.5 - 5.0 g/dL [facility] Alk phos 209(H) 40 - 130 Units/L [facility] ALT 56(H) 7 - 45 Units/L [facility] AST 33 10 - 45 Units/L [facility] Blood 11/03/2024 1:14 PM REFINERY PROCESS ENGINEER 11/03/2024 1:26 PM REFINERY PROCESS ENGINEER Vicente Mandujano MD LAB BLOOD OR DERABLES Final Result [facility] [place] [address] * eGFR (10/28/2024 12:27 AM REFINERY PROCESS ENGINEER) eGFR >90 >=60 mL/min/1. 73 m2 Comment: Interpretive Data Reference Interval Normal >/= 90 mL/min/1.73m2 Mildly decreased* 60 - 89 mL/min/1.73m2 Mildly to moderately decreased 45 - 59 mL/min/1.73m2 Moderately to severely decreased 30 - 44 mL/min/1.73m2 Severely decreased 15 - 29 mL/min/1.73m2 Kidney Failure < 15 mL/min/1.73m2 *Relative to young adult level Estimated glomerular filtration rate is determined by the 2020 CKD-EPI equation recommended by the National Kidney Foundation (A Unifying Approach to GFR Estimation: Recommendations of the NKF-ASK Task Force on Reassessing the Inclusion of Race in Diagnosing Kidney Disease, JASN 202). The CKD-EPI equation should not be used for patients with unstable renal function and has not been validated in children and those over 70. Current interpretive data was last reviewed 2021. Blood 10/28/2024 12:2 7 AM REFINERY PROCESS ENGINEER 10/28/2024 12:38 AM REFINERY PROCESS ENGINEER us Marcus Vergara MD LAB BLOOD ORDERABLES Final Resu lt [facility] Department [place] [address] * (ABNORMAL) Manual Differential (10/28/2024 12:27 AM REFINERY PROCESS ENGINEER) Differential Manual Cells Counted 115 [facility] Neutrophil abs 3.5 1.5 - 6.5 K/cumm [facility] Imm gran abs 0.0 0.0 - 0.1 K/cumm [facility] Lymphocyte abs 0.1(L) 0.8 - 3.3 K/cumm [facility] Monocyte abs 0.2 0.2 - 0.8 K/cumm [facility] Basophil abs 0.0 0.0 - 0.1 K/cumm [facility] Neutrophil pct 92.2 % [facility] Comment: Interpretive Data Percent cell count reference ranges are not reported, since discordance with absolute values may lead to misinterpretation of CBC data. Current Interpretive Data was last revised on 2017. Lymphocyte pct 1.7 % [facility] Comment: Interpretive Data Percent cell count reference ranges are not reported, since discordance with absolute values may lead to misinterpretation of CBC data. Current Interpretive Data was last revised on 2017. Monocyte pct 5.2 % [facility] Comment: Interpretive Data Percent cell count reference ranges are not reported, since discordance with absolute values may lead to misinterpretation of CBC data. Current Interpretive Data was last revised on 2017. Basophil pct 0.9 % [facility] Comment: Interpretive Data Percent cell count reference ranges are not reported, since discordance with absolute values may lead to misinterpretation of CBC data. Current Interpretive Data was last revised on 2017. RBC morphology Normal [facility] Platelet estimate Adequate [facility] Blood 10/28/2024 12:2 7 AM REFINERY PROCESS ENGINEER 10/28/2024 12:39 AM REFINERY PROCESS ENGINEER us Marcus Vergara MD LAB BLOOD ORDERABLES Edited Res ult - Final [facility] Department [place] [address] * (ABNORMAL) CBC without differential (10/28/2024 12:27 AM REFINERY PROCESS ENGINEER) WBC 3.8 3.8 - 9.9 K/cumm Hgb 10.2(L) 11.9 - 15.5 g/dL [facility] Hct 29.8(L) 35.6 - 45.5 % [facility] Plt 249 150 - 400 K/cumm [facility] MPV 10.7 9.1 - 12.3 fL [facility] RBC 3.52(L) 3.90 - 5.20 M/cumm [facility] MCV 84.7 81.3 - 96.4 fL [facility] MCH 29.0 27.1 - 33.3 pg [facility] MCHC 34.2 32.3 - 35.7 g/dL [facility] RDW CV 16.8(H) 11.1 - 14.9 % [facility] RDW SD 50.1(H) 35.7 - 48.1 fL [facility] NRBC abs 0.03(H) 0.00 - 0.01 K/cumm [facility] Blood 10/28/2024 12:2 7 AM REFINERY PROCESS ENGINEER 10/28/2024 12:39 AM REFINERY PROCESS ENGINEER us Marcus Vergara MD LAB BLOOD ORDERABLES Final Resu lt Performing Organization Address City/[facility] Co de Phone Number [facility] [place] [address] * (ABNORMAL) Phosphorus (10/28/2024 12:27 AM REFINERY PROCESS ENGINEER) Phosphorus, pl 2.0(L) 2.3 - 4.5 mg/dL Blood 10/28/2024 12:2 7 AM REFINERY PROCESS ENGINEER 10/28/2024 12:38 AM REFINERY PROCESS ENGINEER us Marcus Vergara MD LAB BLOOD ORDERABLES Final Resu lt Performing Organization Address [facility] de Phone Number [facility] [place] [address] * Magnesium (10/28/2024 12:27 AM REFINERY PROCESS ENGINEER) Magnesium 2.0 1.4 - 2.5 mg/dL Blood 10/28/2024 12:2 7 AM REFINERY PROCESS ENGINEER 10/28/2024 12:38 AM REFINERY PROCESS ENGINEER us Marcus Vergara MD LAB BLOOD ORDERABLES Final Resu lt Performing Organization Address [facility] de Phone Number [facility] [place] [address] * (ABNORMAL) Hepatic function panel (10/28/2024 12:27 AM REFINERY PROCESS ENGINEER) Bilirubin, total 1.1 0.1 - 1.2 mg/dL Bilirubin, direct 0.4(H) 0.1 - 0.3 mg/dL [facility] Protein, pl 6.0(L) 6.5 - 8.5 g/dL [facility] Albumin 3.1(L) 3.5 - 5.0 g/dL [facility] Alk phos 230(H) 40 - 130 Units/L [facility] ALT 78(H) 7 - 45 Units/L [facility] AST 40 10 - 45 Units/L [facility] Blood 10/28/2024 12:2 7 AM REFINERY PROCESS ENGINEER 10/28/2024 12:38 AM REFINERY PROCESS ENGINEER us Jovany Justice FOOD WRITER LAB BLOOD ORDERABLES Final Result [facility] Department [place] [address] * (ABNORMAL) Basic metabolic panel (10/28/2024 12:27 AM REFINERY PROCESS ENGINEER) Sodium 138 135 - 145 mmol/L Potassium, pl 3.7 3.3 - 4.9 mmol/L [facility] Chloride 102 97 - 110 mmol/L [facility] CO2 28 22 - 32 mmol/L [facility] Anion gap 8 2 - 15 mmol/L [facility] BUN 15 6 - 25 mg/dL [facility] Creatinine 0.58(L) 0.60 - 1.10 mg/dL [facility] Glucose 89 70 - 199 mg/dL [facility] Comment: Interpretive Data Fasting glucose >/= 126 mg/dl is diagnostic for diabetes. Fasting is defined as no caloric intake for at least 8 hours. Fasting glucose between 100 mg/dl to 125 mg/dl is diagnostic of prediabetes. In a patient with classic symptoms of hyperglycemia or hyperglycemic crisis, a random glucose >/= 200 mg/dl is diagnostic for diabetes. In the absence of unequivocal hyperglycemia, results should be confirmed by repeat testing. The classification and Diagnosis of Diabetes Diabetes Care 2021; 46: S19-S40. Current interpretive data was last revised 2022. Calcium 8.2(L) 8.5 - 10.3 mg/dL [facility] Blood 10/28/2024 12:2 7 AM REFINERY PROCESS ENGINEER 10/28/2024 12:38 AM REFINERY PROCESS ENGINEER us Marcus Vergara MD LAB BLOOD ORDERABLES Final Resu lt [facility] Department [place] [address] * CT Abdomen Pelvis WO Contrast (10/27/2024 11:14 AM REFINERY PROCESS ENGINEER) Anatomical Region Laterality Modality Body N/A Computed Tomogra phy 10/27/2024 11:2 7 AM REFINERY PROCESS ENGINEER Impressions 10/27/2024 11:52 AM REFINERY PROCESS ENGINEER 1. Overall improved aeration with persistent trace left pleural effusion and peripheral left lower lobe consolidation, favor atelectasis vs pneumonia in the appropriate context. A nodular consolidation in the right lower lobe is likely aspiration. 2. No bowel obstruction Dictated by: Goldy Sanches MD The radiology attending physician has personally reviewed this study, and had reviewed and/or edited this written report and agrees with it. Electronically signed by: Celia Geronimo M.D. Narrative 10/27/2024 11:52 AM REFINERY PROCESS ENGINEER EXAMINATION: CT ABDOMEN PELVIS WO CONTRAST HISTORY: Ileus, AML TECHNIQUE: Transaxial computed tomographic images of the abdomen and pelvis were obtained without intravenous contrast according to the standard protocol . COMPARISON: 10/02/2024 FINDINGS: Impacted bronchus in the right lung base is unchanged. Overall improved aeration with residual consolidation in the peripheral left lower lobe. No suspicious liver lesions. The spleen, pancreas, and adrenal glands are normal. Hyperdense gallbladder sludge. The kidneys exhibit asymmetric noncontrasted imaging appearance without hydronephrosis or nephrolithiasis. The urinary bladder is unremarkable. No bowel obstruction. No suspicious abdominal or pelvic lymphadenopathy. There is a small volume intra-abdominal free fluid. No pneumoperitoneum. No acute fracture or aggressive osseous lesion. Procedure Note Celia Geronimo MD - 10/27/2024 EXAMINATION: CT ABDOMEN PELVIS WO CONTRAST HISTORY: Ileus, AML TECHNIQUE: Transaxial computed tomographic images of the abdomen and pelvis were obtained without intravenous contrast according to the standard protocol . COMPARISON: 10/02/2024 FINDINGS: Impacted bronchus in the right lung base is unchanged. Overall improved aeration with residual consolidation in the peripheral left lower lobe. No suspicious liver lesions. The spleen, pancreas, and adrenal glands are normal. Hyperdense gallbladder sludge. The kidneys exhibit asymmetric noncontrasted imaging appearance without hydronephrosis or nephrolithiasis. The urinary bladder is unremarkable. No bowel obstruction. No suspicious abdominal or pelvic lymphadenopathy. There is a small volume intra-abdominal free fluid. No pneumoperitoneum. No acute fracture or aggressive osseous lesion. IMPRESSION: 1. Overall improved aeration with persistent trace left pleural effusion and peripheral left lower lobe consolidation, favor atelectasis vs pneumonia in the appropriate context. A nodular consolidation in the right lower lobe is likely aspiration. 2. No bowel obstruction Dictated by: Goldy Sanches MD The radiology attending physician has personally reviewed this study, and had reviewed and/or edited this written report and agrees with it. Electronically signed by: Celia Geronimo M.D. Kelly Hi NP IMG CT PROCEDURES Final R esult * XR Abdomen Ap 1 Vw (10/27/2024 8:25 AM REFINERY PROCESS ENGINEER) Anatomical Region Laterality Modality Body, Abdomen N/A Computed Radiogr aphy 10/27/2024 8:49 AM REFINERY PROCESS ENGINEER Impressions 10/27/2024 3:28 PM REFINERY PROCESS ENGINEER Mildly increased diffuse gaseous distention of colon compatible with ileus. Dictated by: Escobar Teran MD PHD The radiology attending physician has personally reviewed this study, and had reviewed and/or edited this written report and agrees with it. Electronically signed by: Dominik Eric M.D. Narrative 10/27/2024 3:28 PM REFINERY PROCESS ENGINEER EXAMINATION: Abdomen, one view. HISTORY: Evaluate for ileus COMPARISON: Radiograph 10/26/2024, CT 10/02/2024 Procedure Note Dominik Eric MD - 10/27/2024 EXAMINATION: Abdomen, one view. HISTORY: Evaluate for ileus COMPARISON: Radiograph 10/26/2024, CT 10/02/2024 IMPRESSION: Mildly increased diffuse gaseous distention of colon compatible with ileus. Dictated by: Escobar Teran MD PHD The radiology attending physician has personally reviewed this study, and had reviewed and/or edited this written report and agrees with it. Electronically signed by: Dominik Eric M.D. us Kelly Hi FOOD WRITER IMG XR PROCEDURES Final R esult * POCT glucose (10/27/2024 6:10 AM REFINERY PROCESS ENGINEER) Glucose, POC 84 70 - 199 mg/dL Blood 10/27/2024 6:10 AM REFINERY PROCESS ENGINEER 10/27/2024 6:10 AM REFINERY PROCESS ENGINEER us Marcus Vergara MD LAB POCT ORDERABLES - DEVICE Fi nal Result [facility] Department [place] [address] * eGFR (10/27/2024 12:34 AM REFINERY PROCESS ENGINEER) eGFR >90 >=60 mL/min/1. 73 m2 Comment: Interpretive Data Reference Interval Normal >/= 90 mL/min/1.73m2 Mildly decreased* 60 - 89 mL/min/1.73m2 Mildly to moderately decreased 45 - 59 mL/min/1.73m2 Moderately to severely decreased 30 - 44 mL/min/1.73m2 Severely decreased 15 - 29 mL/min/1.73m2 Kidney Failure < 15 mL/min/1.73m2 *Relative to young adult level Estimated glomerular filtration rate is determined by the 2020 CKD-EPI equation recommended by the National Kidney Foundation (A Unifying Approach to GFR Estimation: Recommendations of the NKF-ASK Task Force on Reassessing the Inclusion of Race in Diagnosing Kidney Disease, JASN 2020). The CKD-EPI equation should not be used for patients with unstable renal function and has not been validated in children and those over 70. Current interpretive data was last reviewed 2021. Blood 10/27/2024 12:3 4 AM REFINERY PROCESS ENGINEER 10/27/2024 12:54 AM REFINERY PROCESS ENGINEER us Marcus Vegrara MD LAB BLOOD ORDERABLES Final Resu lt [facility] Department [place] [address] * (ABNORMAL) Manual Differential (10/27/2024 12:34 AM REFINERY PROCESS ENGINEER) Differential Manual Cells Counted 116 [facility] Neutrophil abs 9.6(H) 1.5 - 6.5 K/cumm [facility] Imm gran abs 0.0 0.0 - 0.1 K/cumm [facility] Lymphocyte abs 0.0(L) 0.8 - 3.3 K/cumm [facility] Monocyte abs 0.1(L) 0.2 - 0.8 K/cumm [facility] Neutrophil pct 99.1 % [facility] Comment: Interpretive Data Percent cell count reference ranges are not reported, since discordance with absolute values may lead to misinterpretation of CBC data. Current Interpretive Data was last revised on 2017. Monocyte pct 0.9 % [facility] Comment: Interpretive Data Percent cell count reference ranges are not reported, since discordance with absolute values may lead to misinterpretation of CBC data. Current Interpretive Data was last revised on 2017. RBC morphology Present(A) [facility] Poikilocytosis Slight(A) [facility] Platelet estimate Adequate [facility] Blood 10/27/2024 12:3 4 AM REFINERY PROCESS ENGINEER 10/27/2024 12:54 AM REFINERY PROCESS ENGINEER us Marcus Vergara MD LAB BLOOD ORDERABLES Edited Res ult - Final [facility] Department [place] [address] * (ABNORMAL) CBC without differential (10/27/2024 12:34 AM REFINERY PROCESS ENGINEER) WBC 9.7 3.8 - 9.9 K/cumm Hgb 9.7(L) 11.9 - 15.5 g/dL [facility] Hct 28.6(L) 35.6 - 45.5 % [facility] Plt 163 150 - 400 K/cumm [facility] MPV 11.0 9.1 - 12.3 fL [facility] RBC 3.39(L) 3.90 - 5.20 M/cumm [facility] MCV 84.4 81.3 - 96.4 fL [facility] MCH 28.6 27.1 - 33.3 pg [facility] MCHC 33.9 32.3 - 35.7 g/dL [facility] RDW CV 16.5(H) 11.1 - 14.9 % [facility] RDW SD 50.9(H) 35.7 - 48.1 fL [facility] NRBC abs 0.07(H) 0.00 - 0.01 K/cumm [facility] Blood 10/27/2024 12:3 4 AM REFINERY PROCESS ENGINEER 10/27/2024 12:54 AM REFINERY PROCESS ENGINEER Marcus Vergara MD LAB BLOOD ORDERABLES Final Resu lt Performing Organization Address City/[facility]/ZIP Co de Phone Number [facility] Department [place] [address] * (ABNORMAL) Phosphorus (10/27/2024 12:34 AM REFINERY PROCESS ENGINEER) [facility] Phosphorus, pl 1.6(L) 2.3 - 4.5 mg/dL Blood 10/27/2024 12:3 4 AM REFINERY PROCESS ENGINEER 10/27/2024 12:54 AM REFINERY PROCESS ENGINEER Marcus Vergara MD LAB BLOOD ORDERABLES Final Resu lt [facility] Department [place] [address] * Magnesium (10/27/2024 12:34 AM REFINERY PROCESS ENGINEER) [facility] Magnesium 2.2 1.4 - 2.5 mg/dL Blood 10/27/2024 12:3 4 AM REFINERY PROCESS ENGINEER 10/27/2024 12:54 AM REFINERY PROCESS ENGINEER Marcus Vergara MD LAB BLOOD ORDERABLES Final Resu lt [facility] [place] [address] * (ABNORMAL) Hepatic function panel (10/27/2024 12:34 AM REFINERY PROCESS ENGINEER) [facility] Bilirubin, total 0.7 0.1 - 1.2 mg/dL Bilirubin, direct 0.4(H) 0.1 - 0.3 mg/dL [facility] Protein, pl 5.7(L) 6.5 - 8.5 g/dL [facility] Albumin 2.9(L) 3.5 - 5.0 g/dL [facility] Alk phos 228(H) 40 - 130 Units/L [facility] ALT 86(H) 7 - 45 Units/L [facility] AST 63(H) 10 - 45 Units/L [facility] Blood 10/27/2024 12:3 4 AM REFINERY PROCESS ENGINEER 10/27/2024 12:54 AM REFINERY PROCESS ENGINEER Jovany Justice NP LAB BLOOD ORDERABLES Final Result Performing Organization Address City/[facility]/ZIP Co de Phone Number [facility] Department [place] [address] * (ABNORMAL) Basic metabolic panel (10/27/2024 12:34 AM REFINERY PROCESS ENGINEER) [facility] Sodium 139 135 - 145 mmol/L Potassium, pl 3.8 3.3 - 4.9 mmol/L [facility] Chloride 105 97 - 110 mmol/L [facility] CO2 28 22 - 32 mmol/L [facility] Anion gap 6 2 - 15 mmol/L [facility] BUN 10 6 - 25 mg/dL [facility] Creatinine 0.50(L) 0.60 - 1.10 mg/dL [facility] Glucose 95 70 - 199 mg/dL [facility] Comment: Interpretive Data Fasting glucose >/= 126 mg/dl is diagnostic for diabetes. Fasting is defined as no caloric intake for at least 8 hours. Fasting glucose between 100 mg/dl to 125 mg/dl is diagnostic of prediabetes. In a patient with classic symptoms of hyperglycemia or hyperglycemic crisis, a random glucose >/= 200 mg/dl is diagnostic for diabetes. In the absence of unequivocal hyperglycemia, results should be confirmed by repeat testing. The classification and Diagnosis of Diabetes Diabetes Care 202; 46: S19-S40. Current interpretive data was last revised 2022. Calcium 7.4(L) 8.5 - 10.3 mg/dL [facility] Blood 10/27/2024 12:3 4 AM REFINERY PROCESS ENGINEER 10/27/2024 12:54 AM REFINERY PROCESS ENGINEER us Marcus Vergara MD LAB BLOOD ORDERABLES Final Resu lt [facility] Department [place] [address] * XR Abdomen Ap 1 Vw (10/26/2024 11:16 AM REFINERY PROCESS ENGINEER) Anatomical Region Laterality Modality Body, Abdomen N/A Computed Radiogr aphy 10/26/2024 11:3 6 AM REFINERY PROCESS ENGINEER Impressions 10/26/2024 11:59 AM REFINERY PROCESS ENGINEER No significant change in mildly distended loops of small and large bowel, compatible with ileus. There is stool within sigmoid colon and rectum. No pneumatosis intestinalis. Dictated by: Celestine Villegas MD, Ph.D The radiology attending physician has personally reviewed this study, and had reviewed and/or edited this written report and agrees with it. Electronically signed by: Ann Glez M.D. Narrative 10/26/2024 11:59 AM REFINERY PROCESS ENGINEER EXAMINATION: Abdomen, one view. HISTORY: Concern for ileus. COMPARISON: Abdominal radiograph 10/23/2019 8:[address] abdomen pelvis 10/02/2024. Procedure Note Ann Glez MD - 10/26/2024 EXAMINATION: Abdomen, one view. HISTORY: Concern for ileus. COMPARISON: Abdominal radiograph 10/23/2019 8:[address] abdomen pelvis 10/02/2024. IMPRESSION: No significant change in mildly distended loops of small and large bowel, compatible with ileus. There is stool within sigmoid colon and rectum. No pneumatosis intestinalis. Dictated by: Celestine Villegas MD, Ph.D The radiology attending physician has personally reviewed this study, and had reviewed and/or edited this written report and agrees with it. Electronically signed by: Ann Glez M.D. Kelly Hi FOOD WRITER IMG XR PROCEDURES Final R esult * Transfuse RBC (10/26/2024 8:54 AM REFINERY PROCESS ENGINEER) Blood Marcus Vergara MD BLOOD TRANSFUSION ORDERABLES Fi nal Result Performing Organization Address [facility] Co de Phone Number [facility] Department [place] [address] * Prepare RBC: 1 Units (10/26/2024 2:32 AM REFINERY PROCESS ENGINEER) Product code [id number] Unit Number [id number] [facility] Product Blood Type APOS [facility] Dispense Status PRESUMED TRANSFUSED [facility] Blood Venous blood specimen / Unknown 10/26/2024 2:32 AM REFINERY PROCESS ENGINEER 10/26/2024 2:31 AM REFINERY PROCESS ENGINEER Narrative [facility] - 10/26/2024 8:00 PM REFINERY PROCESS ENGINEER Are special requirements needed? (All products are leukoreduced and CMV- safe)- >Yes Date required:-[id number] Special Req 1:-Irradiated LRRBC # of [id number] Reasons:-BMT, Hgb <8 g/dL} Marcus Vergara MD BLOOD BANK PRODUCT ORDERABLES F inal Result Performing Organization Address [facility]/State/ZIP Co de Phone Number [facility] Department [place] [address] * eGFR (10/26/2024 12:57 AM REFINERY PROCESS ENGINEER) [facility] eGFR >90 >=60 mL/min/1. 73 m2 Comment: Interpretive Data Reference Interval Normal >/= 90 mL/min/1.73m2 Mildly decreased* 60 - 89 mL/min/1.73m2 Mildly to moderately decreased 45 - 59 mL/min/1.73m2 Moderately to severely decreased 30 - 44 mL/min/1.73m2 Severely decreased 15 - 29 mL/min/1.73m2 Kidney Failure < 15 mL/min/1.73m2 *Relative to young adult level Estimated glomerular filtration rate is determined by the 2020 CKD-EPI equation recommended by the National Kidney Foundation (A Unifying Approach to GFR Estimation: Recommendations of the NKF-ASK Task Force on Reassessing the Inclusion of Race in Diagnosing Kidney Disease, JASN 2020). The CKD-EPI equation should not be used for patients with unstable renal function and has not been validated in children and those over 70. Current interpretive data was last reviewed 2021. Blood 10/26/2024 12:5 7 AM REFINERY PROCESS ENGINEER 10/26/2024 1:26 AM REFINERY PROCESS ENGINEER us Marcus Vergara MD LAB BLOOD ORDERABLES Final Resu lt [facility] Department [place] [facility] [place] [place] [address] * (ABNORMAL) Manual Differential (10/26/2024 12:57 AM REFINERY PROCESS ENGINEER) [facility] Differential Manual Cells Counted 116 [facility] Neutrophil abs 6.8(H) 1.5 - 6.5 K/cumm [facility] Imm gran abs 0.1 0.0 - 0.1 K/cumm [facility] Lymphocyte abs 0.1(L) 0.8 - 3.3 K/cumm [facility] Monocyte abs 0.1(L) 0.2 - 0.8 K/cumm [facility] Neutrophil pct 97.3 % [facility] Comment: Interpretive Data Percent cell count reference ranges are not reported, since discordance with absolute values may lead to misinterpretation of CBC data. Current Interpretive Data was last revised on 2017. Lymphocyte pct 0.9 % [facility] Comment: Interpretive Data Percent cell count reference ranges are not reported, since discordance with absolute values may lead to misinterpretation of CBC data. Current Interpretive Data was last revised on 2017. Monocyte pct 0.9 % [facility] Comment: Interpretive Data Percent cell count reference ranges are not reported, since discordance with absolute values may lead to misinterpretation of CBC data. Current Interpretive Data was last revised on 2017. Metamyelocyte pct 0.9 % [facility] RBC morphology Normal [facility] Platelet estimate Decreased( A) [facility] Blood 10/26/2024 12:5 7 AM REFINERY PROCESS ENGINEER 10/26/2024 1:26 AM REFINERY PROCESS ENGINEER Marcus Vergara MD LAB BLOOD ORDERABLES Edited Res ult - Final Performing Organization Address City/[facility]/ZIP Co de Phone Number [facility] [place] [address] * aPTT (10/26/2024 12:57 AM REFINERY PROCESS ENGINEER) aPTT 29 28 - 38 sec Comment: Interpretive Data Heparin therapeutic range: 66.0 - 100.0 seconds. Range based on correlation with therapeutic heparin activity range of 0.3 - 0.7 Units/mL. Current interpretive data was last revised on 2023. Blood 10/26/2024 12:5 7 AM REFINERY PROCESS ENGINEER 10/26/2024 1:30 AM REFINERY PROCESS ENGINEER Marcus Vergara MD LAB BLOOD ORDERABLES Final Resu lt Performing Organization Address City/[facility]/ZIP Co de Phone Number [facility] Department [place] [address] * (ABNORMAL) Protime-INR (10/26/2024 12:57 AM REFINERY PROCESS ENGINEER) Pathologist [facility] [place] PT 15.7(H) 9.7 - 13.0 sec INR 1.44(H) 0.90 - 1.20 [facility] Comment: Interpretive data Oral anticoagulant therapeutic ranges: Venous thromboembolism prophylaxis or treatment: 2.0-3.0 CARDIOLOGY Standard range: 2.0-3.0 High-intensity range: 2.5-3.5 Refer to indication-specific guidelines for appropriate target ranges for prosthetic heart valve replacement. Current interpretive data was last revised on 2019. Blood 10/26/2024 12:5 7 AM REFINERY PROCESS ENGINEER 10/26/2024 1:30 AM REFINERY PROCESS ENGINEER us Marcus Vergara MD LAB BLOOD ORDERABLES Final Resu lt [facility] Department [place] [address] * (ABNORMAL) CBC without differential (10/26/2024 12:57 AM REFINERY PROCESS ENGINEER) Pathologist [facility] [place] WBC 7.0 3.8 - 9.9 K/cumm Hgb 7.9(L) 11.9 - 15.5 g/dL [facility] Hct 23.5(L) 35.6 - 45.5 % [facility] Plt 105(L) 150 - 400 K/cumm [facility] MPV 11.4 9.1 - 12.3 fL [facility] RBC 2.68(L) 3.90 - 5.20 M/cumm [facility] MCV 87.7 81.3 - 96.4 fL [facility] MCH 29.5 27.1 - 33.3 pg [facility] MCHC 33.6 32.3 - 35.7 g/dL [facility] RDW CV 14.7 11.1 - 14.9 % [facility] RDW SD 47.1 35.7 - 48.1 fL [facility] NRBC abs 0.04(H) 0.00 - 0.01 K/cumm [facility] Blood 10/26/2024 12:5 7 AM REFINERY PROCESS ENGINEER 10/26/2024 1:26 AM REFINERY PROCESS ENGINEER Result [facility] us Marcus Vergara MD LAB BLOOD ORDERABLES Final Resu lt Performing Organization Address [facility] de Phone Number [facility] [place] [address] * Type and screen (10/26/2024 12:57 AM REFINERY PROCESS ENGINEER) Bing, indirect Negative ABO Rh A Positive [facility] Blood 10/26/2024 12:5 7 AM REFINERY PROCESS ENGINEER 10/26/2024 1:21 AM REFINERY PROCESS ENGINEER Narrative [facility] - 10/26/2024 2:30 AM REFINERY PROCESS ENGINEER Has the patient had Daratumumab or Isatuximab in the past 6 months?->Unknown Result [facility] us Marcus Vergara MD LAB BLOOD BANK TEST ORDERABLES Final Result Performing Organization Address [facility] de Phone Number [facility] Department [place] [address] * (ABNORMAL) Uric acid (10/26/2024 12:57 AM REFINERY PROCESS ENGINEER) Pathologist [facility] [place] Uric acid 0.6(L) 2.5 - 7.0 mg/dL Blood 10/26/2024 12:5 7 AM REFINERY PROCESS ENGINEER 10/26/2024 1:26 AM REFINERY PROCESS ENGINEER Narrative [facility] - 10/26/2024 1:58 AM REFINERY PROCESS ENGINEER Saturday and only. Morning draw. . us Marcus Vergara MD LAB BLOOD ORDERABLES Final Resu lt Performing Organization Address [facility] de Phone Number [facility] [place] [address] * (ABNORMAL) Phosphorus (10/26/2024 12:57 AM REFINERY PROCESS ENGINEER) Phosphorus, pl 2.0(L) 2.3 - 4.5 mg/dL Blood 10/26/2024 12:5 7 AM REFINERY PROCESS ENGINEER 10/26/2024 1:26 AM REFINERY PROCESS ENGINEER us Marcus Vergara MD LAB BLOOD ORDERABLES Final Resu lt Performing Organization Address [facility] de Phone Number [facility] [place] [address] * Magnesium (10/26/2024 12:57 AM REFINERY PROCESS ENGINEER) Magnesium 2.1 1.4 - 2.5 mg/dL Blood 10/26/2024 12:5 7 AM REFINERY PROCESS ENGINEER 10/26/2024 1:26 AM REFINERY PROCESS ENGINEER Result [facility] us Marcus Vergara MD LAB BLOOD ORDERABLES Final Resu lt Performing Organization Address [facility] de Phone Number [facility] [place] [address] * (ABNORMAL) Lactate dehydrogenase (LD) (10/26/2024 12:57 AM REFINERY PROCESS ENGINEER) Lactate dehydrogenase (LDH) 310(H) 100 - 250 Units/L Blood 10/26/2024 12:5 7 AM REFINERY PROCESS ENGINEER 10/26/2024 1:26 AM REFINERY PROCESS ENGINEER Narrative [facility] - 10/26/2024 1:58 AM REFINERY PROCESS ENGINEER Saturday and only. Morning draw. us Marcus Vergara MD LAB BLOOD ORDERABLES Final Resu lt Performing Organization Address [facility] [place] [address] * (ABNORMAL) Bilirubin, direct (10/26/2024 12:57 AM REFINERY PROCESS ENGINEER) Bilirubin, direct 0.4(H) 0.1 - 0.3 mg/dL Blood 10/26/2024 12:5 7 AM REFINERY PROCESS ENGINEER 10/26/2024 1:26 AM REFINERY PROCESS ENGINEER us Marcus Vergara MD LAB BLOOD ORDERABLES Final Resu lt [facility] Department [place] [address] * (ABNORMAL) Comprehensive metabolic panel (10/26/2024 12:57 AM REFINERY PROCESS ENGINEER) Pathologist [facility] [place] Sodium 138 135 - 145 mmol/L Potassium, pl 3.7 3.3 - 4.9 mmol/L [facility] Chloride 106 97 - 110 mmol/L [facility] CO2 26 22 - 32 mmol/L [facility] Anion gap 6 2 - 15 mmol/L [facility] BUN 11 6 - 25 mg/dL [facility] Creatinine 0.48(L) 0.60 - 1.10 mg/dL [facility] Glucose 103 70 - 199 mg/dL [facility] Comment: Interpretive Data Fasting glucose >/= 126 mg/dl is diagnostic for diabetes. Fasting is defined as no caloric intake for at least 8 hours. Fasting glucose between 100 mg/dl to 125 mg/dl is diagnostic of prediabetes. In a patient with classic symptoms of hyperglycemia or hyperglycemic crisis, a random glucose >/= 200 mg/dl is diagnostic for diabetes. In the absence of unequivocal hyperglycemia, results should be confirmed by repeat testing. The classification and Diagnosis of Diabetes Diabetes Care 2021; 46: S19-S40. Current interpretive data was last revised 2022. Calcium 7.4(L) 8.5 - 10.3 mg/dL [facility] Bilirubin, total 0.7 0.1 - 1.2 mg/dL [facility] Protein, pl 5.1(L) 6.5 - 8.5 g/dL [facility] Albumin 2.6(L) 3.5 - 5.0 g/dL [facility] Alk phos 160(H) 40 - 130 Units/L [facility] ALT 56(H) 7 - 45 Units/L [facility] AST 44 10 - 45 Units/L [facility] Blood 10/26/2024 12:5 7 AM REFINERY PROCESS ENGINEER 10/26/2024 1:26 AM REFINERY PROCESS ENGINEER Narrative [facility] 10/26/2024 1:58 AM REFINERY PROCESS ENGINEER Saturday and only. Morning draw. Result Roseanna Vergara MD LAB BLOOD ORDERABLES Final Resu lt Performing Organization Address [facility] de Phone Number [facility] [place] [address] * POCT glucose (10/26/2024 12:54 AM REFINERY PROCESS ENGINEER) Glucose, POC 107 70 - 199 mg/dL Blood 10/26/2024 12:5 4 AM REFINERY PROCESS ENGINEER 10/26/2024 12:54 AM REFINERY PROCESS ENGINEER Result Roseanna Vergara MD LAB POCT ORDERABLES - DEVICE Fi nal Result Performing Organization Address [facility] de Phone Number [facility] [place] [address] * POCT glucose (10/25/2024 12:24 PM REFINERY PROCESS ENGINEER) Glucose, POC 109 70 - 199 mg/dL Blood 10/25/2024 12:2 4 PM REFINERY PROCESS ENGINEER 10/25/2024 12:24 PM REFINERY PROCESS ENGINEER Result Roseanna Vergara MD LAB POCT ORDERABLES - DEVICE Fi nal Result Performing Organization Address [facility] de Phone Number [facility] [place] [address] * POCT glucose (10/25/2024 7:50 AM REFINERY PROCESS ENGINEER) Glucose, POC 114 70 - 199 mg/dL Blood 10/25/2024 7:50 AM REFINERY PROCESS ENGINEER 10/25/2024 7:50 AM REFINERY PROCESS ENGINEER us Marcus Vergara MD LAB POCT ORDERABLES - DEVICE Fi nal Result Performing Organization Address [facility] Co de Phone Number [facility] [place] [address] * eGFR (10/25/2024 12:46 AM REFINERY PROCESS ENGINEER) eGFR >90 >=60 mL/min/1. 73 m2 Comment: Interpretive Data Reference Interval Normal >/= 90 mL/min/1.73m2 Mildly decreased* 60 - 89 mL/min/1.73m2 Mildly to moderately decreased 45 - 59 mL/min/1.73m2 Moderately to severely decreased 30 - 44 mL/min/1.73m2 Severely decreased 15 - 29 mL/min/1.73m2 Kidney Failure < 15 mL/min/1.73m2 *Relative to young adult level Estimated glomerular filtration rate is determined by the 2020 CKD-EPI equation recommended by the National Kidney Foundation (A Unifying Approach to GFR Estimation: Recommendations of the NKF-ASK Task Force on Reassessing the Inclusion of Race in Diagnosing Kidney Disease, JASN 2020). The CKD-EPI equation should not be used for patients with unstable renal function and has not been validated in children and those over 70. Current interpretive data was last reviewed 2021. Blood 10/25/2024 12:4 6 AM REFINERY PROCESS ENGINEER 10/25/2024 12:59 AM REFINERY PROCESS ENGINEER us Marcus Vergara MD LAB BLOOD ORDERABLES Final Resu lt Performing Organization Address [facility] Co de Phone Number [facility] Department [place] [address] * POCT glucose (10/25/2024 12:46 AM REFINERY PROCESS ENGINEER) Glucose, POC 101 70 - 199 mg/dL Blood 10/25/2024 12:4 6 AM REFINERY PROCESS ENGINEER 10/25/2024 12:46 AM REFINERY PROCESS ENGINEER Marcus Vergara MD LAB POCT ORDERABLES - DEVICE Fi nal Result Performing Organization Address [facility] Co de Phone Number [facility] GARC[facility] Department [place] [address] * (ABNORMAL) Manual Differential (10/25/2024 12:46 AM REFINERY PROCESS ENGINEER) Differential Manual Cells Counted 116 [facility] Neutrophil abs 0.9(L) 1.5 - 6.5 K/cumm [facility] Imm gran abs 0.0 0.0 - 0.1 K/cumm [facility] Lymphocyte abs 0.1(L) 0.8 - 3.3 K/cumm [facility] Monocyte abs 0.0(L) 0.2 - 0.8 K/cumm [facility] Neutrophil pct 85.3 % [facility] Comment: Interpretive Data Percent cell count reference ranges are not reported, since discordance with absolute values may lead to misinterpretation of CBC data. Current Interpretive Data was last revised on 2017. Lymphocyte pct 7.8 % [facility] Comment: Interpretive Data Percent cell count reference ranges are not reported, since discordance with absolute values may lead to misinterpretation of CBC data. Current Interpretive Data was last revised on 2017. Monocyte pct 2.6 % [facility] Comment: Interpretive Data Percent cell count reference ranges are not reported, since discordance with absolute values may lead to misinterpretation of CBC data. Current Interpretive Data was last revised on 2017. Myelocyte pct 3.4 % [facility] Promyelocyte pct 0.9 % [facility] RBC morphology Normal [facility] Platelet estimate Decreased( A) [facility] Blood 10/25/2024 12:4 6 AM REFINERY PROCESS ENGINEER 10/25/2024 12:59 AM REFINERY PROCESS ENGINEER us Marcus Vergara MD LAB BLOOD ORDERABLES Final Resu lt [facility] Department [place] [address] * (ABNORMAL) CBC without differential (10/25/2024 12:46 AM REFINERY PROCESS ENGINEER) WBC 1.1(L) 3.8 - 9.9 K/cumm Hgb 8.4(L) 11.9 - 15.5 g/dL [facility] Hct 24.1(L) 35.6 - 45.5 % [facility] Plt 58(L) 150 - 400 K/cumm [facility] MPV 12.6(H) 9.1 - 12.3 fL [facility] RBC 2.84(L) 3.90 - 5.20 M/cumm [facility] MCV 84.9 81.3 - 96.4 fL [facility] MCH 29.6 27.1 - 33.3 pg [facility] MCHC 34.9 32.3 - 35.7 g/dL [facility] RDW CV 14.4 11.1 - 14.9 % [facility] RDW SD 45.0 35.7 - 48.1 fL [facility] NRBC abs 0.03(H) 0.00 - 0.01 K/cumm [facility] Blood 10/25/2024 12:4 6 AM REFINERY PROCESS ENGINEER 10/25/2024 12:59 AM REFINERY PROCESS ENGINEER Marcus Vergara MD LAB BLOOD ORDERABLES Final Resu lt [facility] Department [place] [address] * (ABNORMAL) Phosphorus (10/25/2024 12:46 AM REFINERY PROCESS ENGINEER) [facility] Phosphorus, pl 2.0(L) 2.3 - 4.5 mg/dL Blood 10/25/2024 12:4 6 AM REFINERY PROCESS ENGINEER 10/25/2024 12:59 AM REFINERY PROCESS ENGINEER Marcus Vergara MD LAB BLOOD ORDERABLES Final Resu lt [facility] Department [place] [address] * Magnesium (10/25/2024 12:46 AM REFINERY PROCESS ENGINEER) [facility] Magnesium 2.1 1.4 - 2.5 mg/dL Blood 10/25/2024 12:4 6 AM REFINERY PROCESS ENGINEER 10/25/2024 12:59 AM REFINERY PROCESS ENGINEER Marcus Vergara MD LAB BLOOD ORDERABLES Final Resu lt Performing Organization Address [facility] de Phone Number [facility] [place] [address] * (ABNORMAL) Hepatic function panel (10/25/2024 12:46 AM REFINERY PROCESS ENGINEER) [facility] Bilirubin, total 0.7 0.1 - 1.2 mg/dL Bilirubin, direct 0.3 0.1 - 0.3 mg/dL [facility] Protein, pl 4.9(L) 6.5 - 8.5 g/dL [facility] Albumin 2.2(L) 3.5 - 5.0 g/dL [facility] Alk phos 130 40 - 130 Units/L [facility] ALT 39 7 - 45 Units/L [facility] AST 27 10 - 45 Units/L [facility] Blood 10/25/2024 12:4 6 AM REFINERY PROCESS ENGINEER 10/25/2024 12:59 AM REFINERY PROCESS ENGINEER us Jovany Justice NP LAB BLOOD ORDERABLES Final Result Performing Organization Address [facility] de Phone Number [facility] [place] [address] * (ABNORMAL) Basic metabolic panel (10/25/2024 12:46 AM REFINERY PROCESS ENGINEER) [facility] Sodium 135 135 - 145 mmol/L Potassium, pl 3.5 3.3 - 4.9 mmol/L [facility] Chloride 102 97 - 110 mmol/L [facility] CO2 27 22 - 32 mmol/L [facility] Anion gap 6 2 - 15 mmol/L [facility] BUN 12 6 - 25 mg/dL [facility] Creatinine 0.47(L) 0.60 - 1.10 mg/dL [facility] Glucose 106 70 - 199 mg/dL [facility] Comment: Interpretive Data Fasting glucose >/= 126 mg/dl is diagnostic for diabetes. Fasting is defined as no caloric intake for at least 8 hours. Fasting glucose between 100 mg/dl to 125 mg/dl is diagnostic of prediabetes. In a patient with classic symptoms of hyperglycemia or hyperglycemic crisis, a random glucose >/= 200 mg/dl is diagnostic for diabetes. In the absence of unequivocal hyperglycemia, results should be confirmed by repeat testing. The classification and Diagnosis of Diabetes Diabetes Care 2021; 46: S19-S40. Current interpretive data was last revised 2022. Calcium 7.1(L) 8.5 - 10.3 mg/dL [facility] Blood 10/25/2024 12:4 6 AM REFINERY PROCESS ENGINEER 10/25/2024 12:59 AM REFINERY PROCESS ENGINEER Marcus Vergara MD LAB BLOOD ORDERABLES Final Resu lt Performing Organization Address [facility]/ZIP Co de Phone Number [facility] Department [place] [address] * POCT glucose (10/24/2024 5:52 PM REFINERY PROCESS ENGINEER) Glucose, POC 122 70 - 199 mg/dL Blood 10/24/2024 5:52 PM REFINERY PROCESS ENGINEER 10/24/2024 5:52 PM REFINERY PROCESS ENGINEER Marcus Vergara MD LAB POCT ORDERABLES - DEVICE Fi nal Result Performing Organization Address [facility]/ZIP Co de Phone Number [facility] Department [place] [address] * POCT glucose (10/24/2024 12:00 PM REFINERY PROCESS ENGINEER) Glucose, POC 146 70 - 199 mg/dL Blood 10/24/2024 12:0 0 PM REFINERY PROCESS ENGINEER 10/24/2024 12:00 PM REFINERY PROCESS ENGINEER Result Roseanna Vergara MD LAB POCT ORDERABLES - DEVICE Fi nal Result [facility] [place] [address] * (ABNORMAL) Immature platelet fraction (10/24/2024 12:36 AM REFINERY PROCESS ENGINEER) IPF 11.5(H) 1.6 - 10.1 % Blood 10/24/2024 12:3 6 AM REFINERY PROCESS ENGINEER 10/24/2024 1:40 AM REFINERY PROCESS ENGINEER Result Roseanna Vergara MD LAB BLOOD ORDERABLES Final Resu lt Performing Organization Address [facility] Co de Phone Number [facility]ID [facility] Department [place] [address] * eGFR (10/24/2024 12:36 AM REFINERY PROCESS ENGINEER) eGFR >90 >=60 mL/min/1. 73 m2 Comment: Interpretive Data Reference Interval Normal >/= 90 mL/min/1.73m2 Mildly decreased* 60 - 89 mL/min/1.73m2 Mildly to moderately decreased 45 - 59 mL/min/1.73m2 Moderately to severely decreased 30 - 44 mL/min/1.73m2 Severely decreased 15 - 29 mL/min/1.73m2 Kidney Failure < 15 mL/min/1.73m2 *Relative to young adult level Estimated glomerular filtration rate is determined by the 2020 CKD-EPI equation recommended by the National Kidney Foundation (A Unifying Approach to GFR Estimation: Recommendations of the NKF-ASK Task Force on Reassessing the Inclusion of Race in Diagnosing Kidney Disease, JASN 202). The CKD-EPI equation should not be used for patients with unstable renal function and has not been validated in children and those over 70. Current interpretive data was last reviewed 2021. Blood 10/24/2024 12:3 6 AM REFINERY PROCESS ENGINEER 10/24/2024 1:19 AM REFINERY PROCESS ENGINEER us Marcus Vergara MD LAB BLOOD ORDERABLES Final Resu lt [facility] Department [place] [address] * (ABNORMAL) Manual Differential (10/24/2024 12:36 AM REFINERY PROCESS ENGINEER) Differential Manual Cells Counted 113 [facility] Neutrophil abs 1.4(L) 1.5 - 6.5 K/cumm [facility] Imm gran abs 0.0 0.0 - 0.1 K/cumm [facility] Lymphocyte abs 0.0(L) 0.8 - 3.3 K/cumm [facility] Monocyte abs 0.0(L) 0.2 - 0.8 K/cumm [facility] Neutrophil pct 93.8 % [facility] Comment: Interpretive Data Percent cell count reference ranges are not reported, since discordance with absolute values may lead to misinterpretation of CBC data. Current Interpretive Data was last revised on 2017. Lymphocyte pct 3.5 % [facility] Comment: Interpretive Data Percent cell count reference ranges are not reported, since discordance with absolute values may lead to misinterpretation of CBC data. Current Interpretive Data was last revised on 2017. Monocyte pct 2.7 % [facility] Comment: Interpretive Data Percent cell count reference ranges are not reported, since discordance with absolute values may lead to misinterpretation of CBC data. Current Interpretive Data was last revised on 2017. RBC morphology Normal [facility] Platelet estimate Decreased( A) [facility] Blood 10/24/2024 12:3 6 AM REFINERY PROCESS ENGINEER 10/24/2024 1:19 AM REFINERY PROCESS ENGINEER Marcus Vergara MD LAB BLOOD ORDERABLES Edited Res ult - Final [facility] Department [place] [address] * (ABNORMAL) CBC without differential (10/24/2024 12:36 AM REFINERY PROCESS ENGINEER) WBC 1.5(L) 3.8 - 9.9 K/cumm Hgb 10.1(L) 11.9 - 15.5 g/dL [facility] Hct 28.4(L) 35.6 - 45.5 % [facility] Plt 33(C) 150 - 400 K/cumm [facility] Comment:Platelet count confi rmed by additional testing. Critical platelet count threshold determined by patient location: Outpatient:<50 K-cumm , Inpatient:<20 K-cumm , BMT service:<10 K-cumm MPV 13.0(H) 9.1 - 12.3 fL [facility] RBC 3.40(L) 3.90 - 5.20 M/cumm [facility] MCV 83.5 81.3 - 96.4 fL [facility] MCH 29.7 27.1 - 33.3 pg [facility] MCHC 35.6 32.3 - 35.7 g/dL [facility] RDW CV 14.5 11.1 - 14.9 % [facility] RDW SD 44.1 35.7 - 48.1 fL [facility] NRBC abs 0.00 0.00 - 0.01 K/cumm [facility] Blood 10/24/2024 12:3 6 AM REFINERY PROCESS ENGINEER 10/24/2024 1:19 AM REFINERY PROCESS ENGINEER us Marcus Vergara MD LAB BLOOD ORDERABLES Final Resu lt Performing Organization Address [facility] Co de Phone Number [facility] Department [place] [address] * (ABNORMAL) Phosphorus (10/24/2024 12:36 AM REFINERY PROCESS ENGINEER) [facility] Phosphorus, pl 1.9(L) 2.3 - 4.5 mg/dL Blood 10/24/2024 12:3 6 AM REFINERY PROCESS ENGINEER 10/24/2024 1:19 AM REFINERY PROCESS ENGINEER us Marcus Vergara MD LAB BLOOD ORDERABLES Final Resu lt [facility] Department [place] [address] * Magnesium (10/24/2024 12:36 AM REFINERY PROCESS ENGINEER) [facility] Magnesium 1.7 1.4 - 2.5 mg/dL Blood 10/24/2024 12:3 6 AM REFINERY PROCESS ENGINEER 10/24/2024 1:19 AM REFINERY PROCESS ENGINEER Marcus Vergara MD LAB BLOOD ORDERABLES Final Resu lt Performing Organization Address [facility] Co de Phone Number [facility] [place] [address] * (ABNORMAL) Hepatic function panel (10/24/2024 12:36 AM REFINERY PROCESS ENGINEER) [facility] Bilirubin, total 1.0 0.1 - 1.2 mg/dL Bilirubin, direct 0.5(H) 0.1 - 0.3 mg/dL [facility] Protein, pl 5.3(L) 6.5 - 8.5 g/dL [facility] Albumin 2.4(L) 3.5 - 5.0 g/dL [facility] Alk phos 115 40 - 130 Units/L [facility] ALT 42 7 - 45 Units/L [facility] AST 21 10 - 45 Units/L [facility] Blood 10/24/2024 12:3 6 AM REFINERY PROCESS ENGINEER 10/24/2024 1:19 AM REFINERY PROCESS ENGINEER us Jovany Justice NP LAB BLOOD ORDERABLES Final Result Performing Organization Address [facility]/ZIP Co de Phone Number [facility] Department [place] [address] * (ABNORMAL) Basic metabolic panel (10/24/2024 12:36 AM REFINERY PROCESS ENGINEER) [facility] Sodium 131(L) 135 - 145 mmol/L Potassium, pl 3.7 3.3 - 4.9 mmol/L [facility] Chloride 98 97 - 110 mmol/L [facility] CO2 26 22 - 32 mmol/L [facility] Anion gap 7 2 - 15 mmol/L [facility] BUN 12 6 - 25 mg/dL [facility] Creatinine 0.39(L) 0.60 - 1.10 mg/dL [facility] Glucose 140 70 - 199 mg/dL [facility] Comment: Interpretive Data Fasting glucose >/= 126 mg/dl is diagnostic for diabetes. Fasting is defined as no caloric intake for at least 8 hours. Fasting glucose between 100 mg/dl to 125 mg/dl is diagnostic of prediabetes. In a patient with classic symptoms of hyperglycemia or hyperglycemic crisis, a random glucose >/= 200 mg/dl is diagnostic for diabetes. In the absence of unequivocal hyperglycemia, results should be confirmed by repeat testing. The classification and Diagnosis of Diabetes Diabetes Care 2021; 46: S19-S40. Current interpretive data was last revised 2022. Calcium 7.0(L) 8.5 - 10.3 mg/dL [facility] Blood 10/24/2024 12:3 6 AM REFINERY PROCESS ENGINEER 10/24/2024 1:19 AM REFINERY PROCESS ENGINEER Marcus Vergara MD LAB BLOOD ORDERABLES Final Resu lt Performing Organization Address City/[facility]/ZIP Co de Phone Number [facility] Department [place] [address] * POCT glucose (10/24/2024 12:35 AM REFINERY PROCESS ENGINEER) Glucose, POC 141 70 - 199 mg/dL Blood 10/24/2024 12:3 5 AM REFINERY PROCESS ENGINEER 10/24/2024 12:35 AM REFINERY PROCESS ENGINEER us Marcus Vergara MD LAB POCT ORDERABLES - DEVICE Fi nal Result Performing Organization Address City/[facility]/ZIP Co de Phone Number [facility] Department [place] [address] * POCT glucose (10/23/2024 11:54 AM REFINERY PROCESS ENGINEER) Glucose, POC 189 70 - 199 mg/dL Blood 10/23/2024 11:5 4 AM REFINERY PROCESS ENGINEER 10/23/2024 11:54 AM REFINERY PROCESS ENGINEER Marcus Vergara MD LAB POCT ORDERABLES - DEVICE Fi nal Result [facility] Department [place] [address] * XR Abdomen Ap 1 Vw (10/23/2024 8:35 AM REFINERY PROCESS ENGINEER) Anatomical Region Laterality Modality Body, Abdomen N/A Computed Radiogr aphy 10/23/2024 8:40 AM REFINERY PROCESS ENGINEER Impressions 10/23/2024 8:40 AM REFINERY PROCESS ENGINEER Mild gaseous distention of the colon with stool and gas throughout the colon to the level of the rectum, compatible with ileus. No supine evidence of pneumoperitoneum. No pneumatosis or portal venous gas. Electronically signed by: Josselyn Robles M.D. Narrative 10/23/2024 8:40 AM REFINERY PROCESS ENGINEER EXAMINATION: Abdomen, one view. HISTORY: Abdominal pain. COMPARISON: 10/06/2024 Procedure Note Josselyn Robles MD PhD - 10/23/2024 EXAMINATION: Abdomen, one view. HISTORY: Abdominal pain. COMPARISON: 10/06/2024 IMPRESSION: Mild gaseous distention of the colon with stool and gas throughout the colon to the level of the rectum, compatible with ileus. No supine evidence of pneumoperitoneum. No pneumatosis or portal venous gas. Electronically signed by: Josselyn Robles M.D. us Jovany Justice FOOD WRITER IMG XR PROCEDURES Final Res ult * POCT glucose (10/23/2024 5:15 AM REFINERY PROCESS ENGINEER) Glucose, POC 109 70 - 199 mg/dL Blood 10/23/2024 5:15 AM REFINERY PROCESS ENGINEER 10/23/2024 5:15 AM REFINERY PROCESS ENGINEER us Marcus Vergara MD LAB POCT ORDERABLES - DEVICE Fi nal [facility] [place] [address] * Immature platelet fraction (10/23/2024 3:11 AM REFINERY PROCESS ENGINEER) IPF 8.4 1.6 - 10.1 % Blood 10/23/2024 3:11 AM REFINERY PROCESS ENGINEER 10/23/2024 3:33 AM REFINERY PROCESS ENGINEER us Marcus Vergara MD LAB BLOOD ORDERABLES Final Resu lt Performing Organization Address [facility] de Phone Number [facility] Department [place] [address] * eGFR (10/23/2024 3:11 AM REFINERY PROCESS ENGINEER) [facility] eGFR >90 >=60 mL/min/1. 73 m2 Comment: Interpretive Data Reference Interval Normal >/= 90 mL/min/1.73m2 Mildly decreased* 60 - 89 mL/min/1.73m2 Mildly to moderately decreased 45 - 59 mL/min/1.73m2 Moderately to severely decreased 30 - 44 mL/min/1.73m2 Severely decreased 15 - 29 mL/min/1.73m2 Kidney Failure < 15 mL/min/1.73m2 *Relative to young adult level Estimated glomerular filtration rate is determined by the 2020 CKD-EPI equation recommended by the National Kidney Foundation (A Unifying Approach to GFR Estimation: Recommendations of the NKF-ASK Task Force on Reassessing the Inclusion of Race in Diagnosing Kidney Disease, JASN 2020). The CKD-EPI equation should not be used for patients with unstable renal function and has not been validated in children and those over 70. Current interpretive data was last reviewed 2021. Blood 10/23/2024 3:11 AM REFINERY PROCESS ENGINEER 10/23/2024 3:29 AM REFINERY PROCESS ENGINEER us Marcus Vergara MD LAB BLOOD ORDERABLES Final [facility]u lt [facility] Department [place] [address] * (ABNORMAL) Manual Differential (10/23/2024 3:11 AM REFINERY PROCESS ENGINEER) Differential Manual Cells Counted 104 [facility] Neutrophil abs 0.4(C) 1.5 - 6.5 K/cumm [facility] Comment:BMT patient, result not critical Imm gran abs 0.0 0.0 - 0.1 K/cumm [facility] Lymphocyte abs 0.1(L) 0.8 - 3.3 K/cumm [facility] Monocyte abs 0.0(L) 0.2 - 0.8 K/cumm [facility] Neutrophil pct 80.8 % [facility] Comment: Interpretive Data Percent cell count reference ranges are not reported, since discordance with absolute values may lead to misinterpretation of CBC data. Current Interpretive Data was last revised on 2017. Lymphocyte pct 17.3 % [facility] Comment: Interpretive Data Percent cell count reference ranges are not reported, since discordance with absolute values may lead to misinterpretation of CBC data. Current Interpretive Data was last revised on 2017. Monocyte pct 1.9 % [facility] Comment: Interpretive Data Percent cell count reference ranges are not reported, since discordance with absolute values may lead to misinterpretation of CBC data. Current Interpretive Data was last revised on 2017. RBC morphology Normal [facility] Platelet estimate Decreased( A) [facility] Blood 10/23/2024 3:11 AM REFINERY PROCESS ENGINEER 10/23/2024 3:29 AM REFINERY PROCESS ENGINEER us Marcus Vergara MD LAB BLOOD ORDERABLES Edited Res ult - Final [facility] Department [place] [address] * (ABNORMAL) CBC without differential (10/23/2024 3:11 AM REFINERY PROCESS ENGINEER) WBC 0.5(C) 3.8 - 9.9 K/cumm Comment:Consistent with prev ious reported value Hgb 8.3(L) 11.9 - 15.5 g/dL [facility] Hct 24.2(L) 35.6 - 45.5 % [facility] Plt 18(C) 150 - 400 K/cumm [facility] Comment:Platelet count confi rmed by additional testing. Critical platelet count threshold determined by patient location: Outpatient:<50 K-cumm , Inpatient:<20 K-cumm , BMT service:<10 K-cumm MPV 12.7(H) 9.1 - 12.3 fL [facility] RBC 2.79(L) 3.90 - 5.20 M/cumm [facility] MCV 86.7 81.3 - 96.4 fL [facility] MCH 29.7 27.1 - 33.3 pg [facility] MCHC 34.3 32.3 - 35.7 g/dL [facility] RDW CV 14.7 11.1 - 14.9 % [facility] RDW SD 47.5 35.7 - 48.1 fL [facility] NRBC abs 0.00 0.00 - 0.01 K/cumm [facility] Blood 10/23/2024 3:11 AM REFINERY PROCESS ENGINEER 10/23/2024 3:29 AM REFINERY PROCESS ENGINEER Marcus Vergara MD LAB BLOOD ORDERABLES Final Resu lt Performing Organization Address City/[facility] Co de Phone Number [facility] Department [place] [address] * Phosphorus (10/23/2024 3:11 AM REFINERY PROCESS ENGINEER) [facility] Phosphorus, pl 2.5 2.3 - 4.5 mg/dL Blood 10/23/2024 3:11 AM REFINERY PROCESS ENGINEER 10/23/2024 3:29 AM REFINERY PROCESS ENGINEER us Marcus Vergara MD LAB BLOOD ORDERABLES Final Resu lt [facility] Department [place] [address] * Magnesium (10/23/2024 3:11 AM REFINERY PROCESS ENGINEER) [facility] Magnesium 2.2 1.4 - 2.5 mg/dL Blood 10/23/2024 3:11 AM REFINERY PROCESS ENGINEER 10/23/2024 3:29 AM REFINERY PROCESS ENGINEER Marcus Vergara MD LAB BLOOD ORDERABLES Final Resu lt Performing Organization Address [facility] [place] [address] * (ABNORMAL) Hepatic function panel (10/23/2024 3:11 AM REFINERY PROCESS ENGINEER) [facility] Bilirubin, total 0.8 0.1 - 1.2 mg/dL Bilirubin, direct 0.2 0.1 - 0.3 mg/dL [facility] Comment:Hemolyzed; result ma y be falsely decreased Protein, pl 5.3(L) 6.5 - 8.5 g/dL [facility] Albumin 2.4(L) 3.5 - 5.0 g/dL [facility] Alk phos 93 40 - 130 Units/L [facility] ALT 50(H) 7 - 45 Units/L [facility] AST 36 10 - 45 Units/L [facility] Comment:Hemolyzed; result ma y be falsely elevated Blood 10/23/2024 3:11 AM REFINERY PROCESS ENGINEER 10/23/2024 3:29 AM REFINERY PROCESS ENGINEER us Jovany Justice FOOD WRITER LAB BLOOD ORDERABLES Final Result Performing Organization Address [facility] Co de Phone Number [facility] Department [place] [address] * (ABNORMAL) Basic metabolic panel (10/23/2024 3:11 AM REFINERY PROCESS ENGINEER) [facility] Sodium 138 135 - 145 mmol/L Potassium, pl 4.5 3.3 - 4.9 mmol/L [facility] Comment:Hemolyzed; Potassium value may be falsely elevated by as much as 0.3-0.5 mmol/L. Suggest redraw and reanalysis. Chloride 106 97 - 110 mmol/L [facility] CO2 26 22 - 32 mmol/L [facility] Anion gap 6 2 - 15 mmol/L [facility] BUN 13 6 - 25 mg/dL [facility] Creatinine 0.45(L) 0.60 - 1.10 mg/dL [facility] Glucose 102 70 - 199 mg/dL [facility] Comment: Interpretive Data Fasting glucose >/= 126 mg/dl is diagnostic for diabetes. Fasting is defined as no caloric intake for at least 8 hours. Fasting glucose between 100 mg/dl to 125 mg/dl is diagnostic of prediabetes. In a patient with classic symptoms of hyperglycemia or hyperglycemic crisis, a random glucose >/= 200 mg/dl is diagnostic for diabetes. In the absence of unequivocal hyperglycemia, results should be confirmed by repeat testing. The classification and Diagnosis of Diabetes Diabetes Care 2021; 46: S19-S40. Current interpretive data was last revised 2022. Calcium 7.4(L) 8.5 - 10.3 mg/dL [facility] Blood 10/23/2024 3:11 AM REFINERY PROCESS ENGINEER 10/23/2024 3:29 AM REFINERY PROCESS ENGINEER Marcus Vergara MD LAB BLOOD ORDERABLES Final Resu lt Performing Organization Address City/[facility]/ZIP Co de Phone Number [facility] Department [place] [address] * POCT glucose (10/22/2024 11:12 PM REFINERY PROCESS ENGINEER) [facility] Signature Glucose, POC 101 70 - 199 mg/dL Blood 10/22/2024 11:1 2 PM REFINERY PROCESS ENGINEER 10/22/2024 11:12 PM REFINERY PROCESS ENGINEER Marcus Vergara MD LAB POCT ORDERABLES - DEVICE Fi nal Result Performing Organization Address [facility]/State/ZIP Co de Phone Number [facility] Department [place] [address] * POCT glucose (10/22/2024 6:07 PM REFINERY PROCESS ENGINEER) Glucose, POC 133 70 - 199 mg/dL Blood 10/22/2024 6:07 PM REFINERY PROCESS ENGINEER 10/22/2024 6:07 PM REFINERY PROCESS ENGINEER us Marcus Vergara MD LAB POCT ORDERABLES - DEVICE Fi nal Result Performing Organization Address [facility] [place] [address] * POCT glucose (10/22/2024 12:13 PM REFINERY PROCESS ENGINEER) [facility] Glucose, POC 143 70 - 199 mg/dL Blood 10/22/2024 12:1 3 PM REFINERY PROCESS ENGINEER 10/22/2024 12:13 PM REFINERY PROCESS ENGINEER us Marcus Vergara MD LAB POCT ORDERABLES - DEVICE Fi nal Result Performing Organization Address [facility] Co de Phone Number [facility] Department [place] [address] * Immature platelet fraction (10/22/2024 3:32 AM REFINERY PROCESS ENGINEER) [facility] IPF 6.5 1.6 - 10.1 % Blood 10/22/2024 3:32 AM REFINERY PROCESS ENGINEER 10/22/2024 3:51 AM REFINERY PROCESS ENGINEER us Marcus Vergara MD LAB BLOOD ORDERABLES Final Resu lt Performing Organization Address [facility] Co de Phone Number [facility] [place] [address] * eGFR (10/22/2024 3:32 AM REFINERY PROCESS ENGINEER) [facility] eGFR >90 >=60 mL/min/1. 73 m2 Comment: Interpretive Data Reference Interval Normal >/= 90 mL/min/1.73m2 Mildly decreased* 60 - 89 mL/min/1.73m2 Mildly to moderately decreased 45 - 59 mL/min/1.73m2 Moderately to severely decreased 30 - 44 mL/min/1.73m2 Severely decreased 15 - 29 mL/min/1.73m2 Kidney Failure < 15 mL/min/1.73m2 *Relative to young adult level Estimated glomerular filtration rate is determined by the 2020 CKD-EPI equation recommended by the National Kidney Foundation (A Unifying Approach to GFR Estimation: Recommendations of the NKF-ASK Task Force on Reassessing the Inclusion of Race in Diagnosing Kidney Disease, JASN 2020). The CKD-EPI equation should not be used for patients with unstable renal function and has not been validated in children and those over 70. Current interpretive data was last reviewed 2021. Blood 10/22/2024 3:32 AM REFINERY PROCESS ENGINEER 10/22/2024 3:46 AM REFINERY PROCESS ENGINEER Marcus Vergara MD LAB BLOOD ORDERABLES Final Resu lt Performing Organization Address City/[facility]/ZIP Co de Phone Number [facility] Department [place] [address] * POCT glucose (10/22/2024 3:32 AM REFINERY PROCESS ENGINEER) Glucose, POC 115 70 - 199 mg/dL Blood 10/22/2024 3:32 AM REFINERY PROCESS ENGINEER 10/22/2024 3:32 AM REFINERY PROCESS ENGINEER Marcus Vergara MD LAB POCT ORDERABLES - DEVICE Fi nal Result Performing Organization Address City/[facility]/ZIP Co de Phone Number [facility] Department [place] [address] * (ABNORMAL) Manual Differential (10/22/2024 3:32 AM REFINERY PROCESS ENGINEER) Differential Manual Cells Counted 104 [facility] Neutrophil abs 0.4(C) 1.5 - 6.5 K/cumm [facility] Comment:BMT patient, result not critical Imm gran abs 0.0 0.0 - 0.1 K/cumm [facility] Lymphocyte abs 0.0(L) 0.8 - 3.3 K/cumm [facility] Monocyte abs 0.0(L) 0.2 - 0.8 K/cumm [facility] Neutrophil pct 88.4 % [facility] Comment: Interpretive Data Percent cell count reference ranges are not reported, since discordance with absolute values may lead to misinterpretation of CBC data. Current Interpretive Data was last revised on 2017. Lymphocyte pct 7.7 % [facility] Comment: Interpretive Data Percent cell count reference ranges are not reported, since discordance with absolute values may lead to misinterpretation of CBC data. Current Interpretive Data was last revised on 2017. Monocyte pct 2.9 % [facility] Comment: Interpretive Data Percent cell count reference ranges are not reported, since discordance with absolute values may lead to misinterpretation of CBC data. Current Interpretive Data was last revised on 2017. Metamyelocyte pct 1.0 % [facility] RBC morphology Normal [facility] Platelet estimate Decreased( A) [facility] Blood 10/22/2024 3:32 AM REFINERY PROCESS ENGINEER 10/22/2024 3:46 AM REFINERY PROCESS ENGINEER us Marcus Vergara MD LAB BLOOD ORDERABLES Edited Res ult - Final [facility] Department [place] [address] * (ABNORMAL) CBC without differential (10/22/2024 3:32 AM REFINERY PROCESS ENGINEER) WBC 0.4(C) 3.8 - 9.9 K/cumm Comment:Consistent with prev ious reported value Hgb 8.0(L) 11.9 - 15.5 g/dL [facility] Hct 23.0(L) 35.6 - 45.5 % [facility] Plt 15(C) 150 - 400 K/cumm [facility] Comment:Platelet count confi rmed by additional testing. Critical platelet count threshold determined by patient location: Outpatient:<50 K-cumm , Inpatient:<20 K-cumm , BMT service:<10 K-cumm MPV 13.1(H) 9.1 - 12.3 fL [facility] RBC 2.65(L) 3.90 - 5.20 M/cumm [facility] MCV 86.8 81.3 - 96.4 fL [facility] MCH 30.2 27.1 - 33.3 pg [facility] MCHC 34.8 32.3 - 35.7 g/dL [facility] RDW CV 15.1(H) 11.1 - 14.9 % [facility] RDW SD 48.1 35.7 - 48.1 fL [facility] NRBC abs 0.00 0.00 - 0.01 K/cumm [facility] Blood 10/22/2024 3:32 AM REFINERY PROCESS ENGINEER 10/22/2024 3:46 AM REFINERY PROCESS ENGINEER Marcus Vergara MD LAB BLOOD ORDERABLES Final Resu lt Performing Organization Address City/[facility]/ZIP Co de Phone Number [facility] Department [place] [address] * Type and screen (10/22/2024 3:32 AM REFINERY PROCESS ENGINEER) Bing, indirect Negative ABO Rh A Positive [facility] Blood 10/22/2024 3:32 AM REFINERY PROCESS ENGINEER 10/22/2024 3:47 AM REFINERY PROCESS ENGINEER Narrative [facility] - 10/22/2024 5:09 AM REFINERY PROCESS ENGINEER Has the patient had Daratumumab or Isatuximab in the past 6 months?->Unknown Marcus Vergara MD LAB BLOOD BANK TEST ORDERABLES Final Result [facility] Department [place] [address] * (ABNORMAL) Uric acid (10/22/2024 3:32 AM REFINERY PROCESS ENGINEER) Pathologist [facility] [place] Uric acid 0.5(L) 2.5 - 7.0 mg/dL Comment:Result maybe falsely decreased due to Elite[employer] (Rasburicase) Blood 10/22/2024 3:32 AM REFINERY PROCESS ENGINEER 10/22/2024 3:46 AM REFINERY PROCESS ENGINEER Narrative [facility] - 10/22/2024 4:18 AM REFINERY PROCESS ENGINEER Saturday and only. Morning draw. . Marcus Vergara MD LAB BLOOD ORDERABLES Final Resu lt Performing Organization Address City/[facility]/ZIP Co de Phone Number [facility] Department [place] [address] * (ABNORMAL) Phosphorus (10/22/2024 3:32 AM REFINERY PROCESS ENGINEER) Pathologist [facility] [place] Phosphorus, pl 1.8(L) 2.3 - 4.5 mg/dL Blood 10/22/2024 3:32 AM REFINERY PROCESS ENGINEER 10/22/2024 3:46 AM REFINERY PROCESS ENGINEER Marcus Vergara MD LAB BLOOD ORDERABLES Final Resu lt Performing Organization Address [facility] Co de Phone Number [facility] Department [place] [address] * Magnesium (10/22/2024 3:32 AM REFINERY PROCESS ENGINEER) Pathologist [facility] [place] Magnesium 1.9 1.4 - 2.5 mg/dL Blood 10/22/2024 3:32 AM REFINERY PROCESS ENGINEER 10/22/2024 3:46 AM REFINERY PROCESS ENGINEER Marcus Vergara MD LAB BLOOD ORDERABLES Final Resu lt Performing Organization Address [facility] [facility] Co de Phone Number [facility] Department [place] [address] * Lactate dehydrogenase (LD) (10/22/2024 3:32 AM REFINERY PROCESS ENGINEER) [facility] Lactate dehydrogenase (LDH) 197 100 - 250 Units/L Blood 10/22/2024 3:32 AM REFINERY PROCESS ENGINEER 10/22/2024 3:46 AM REFINERY PROCESS ENGINEER Narrative [facility] - 10/22/2024 4:18 AM REFINERY PROCESS ENGINEER Saturday and only. Morning draw. Marcus Vergara MD LAB BLOOD ORDERABLES Final Resu lt Performing Organization Address [facility] Co de Phone Number [facility] Department [place] [address] * (ABNORMAL) Bilirubin, direct (10/22/2024 3:32 AM REFINERY PROCESS ENGINEER) [facility] Bilirubin, direct 0.5(H) 0.1 - 0.3 mg/dL Blood 10/22/2024 3:32 AM REFINERY PROCESS ENGINEER 10/22/2024 3:46 AM REFINERY PROCESS ENGINEER Marcus Vergara MD LAB BLOOD ORDERABLES Final Resu lt Performing Organization Address [facility] de Phone Number [facility] Department [place] [address] * (ABNORMAL) Comprehensive metabolic panel (10/22/2024 3:32 AM REFINERY PROCESS ENGINEER) [facility] Sodium 141 135 - 145 mmol/L Potassium, pl 4.2 3.3 - 4.9 mmol/L [facility] Chloride 109 97 - 110 mmol/L [facility] CO2 26 22 - 32 mmol/L [facility] Anion gap 6 2 - 15 mmol/L [facility] BUN 16 6 - 25 mg/dL [facility] Creatinine 0.44(L) 0.60 - 1.10 mg/dL [facility] Glucose 110 70 - 199 mg/dL [facility] Comment: Interpretive Data Fasting glucose >/= 126 mg/dl is diagnostic for diabetes. Fasting is defined as no caloric intake for at least 8 hours. Fasting glucose between 100 mg/dl to 125 mg/dl is diagnostic of prediabetes. In a patient with classic symptoms of hyperglycemia or hyperglycemic crisis, a random glucose >/= 200 mg/dl is diagnostic for diabetes. In the absence of unequivocal hyperglycemia, results should be confirmed by repeat testing. The classification and Diagnosis of Diabetes Diabetes Care 2021; 46: S19-S40. Current interpretive data was last revised 2022. Calcium 7.0(L) 8.5 - 10.3 mg/dL [facility] Bilirubin, total 0.8 0.1 - 1.2 mg/dL [facility] Protein, pl 5.2(L) 6.5 - 8.5 g/dL [facility] Albumin 2.3(L) 3.5 - 5.0 g/dL [facility] Alk phos 79 40 - 130 Units/L [facility] ALT 38 7 - 45 Units/L [facility] AST 20 10 - 45 Units/L [facility] Blood 10/22/2024 3:32 AM REFINERY PROCESS ENGINEER 10/22/2024 3:46 AM REFINERY PROCESS ENGINEER Narrative [facility] - 10/22/2024 4:18 AM REFINERY PROCESS ENGINEER Saturday and only. Morning draw. Marcus Vergara MD LAB BLOOD ORDERABLES Final Resu lt Performing Organization Address City/[facility]/ZIP Co de Phone Number [facility] Department [place] [address] * POCT glucose (10/21/2024 9:21 PM REFINERY PROCESS ENGINEER) [facility] Glucose, POC 114 70 - 199 mg/dL Blood 10/21/2024 9:21 PM REFINERY PROCESS ENGINEER 10/21/2024 9:21 PM REFINERY PROCESS ENGINEER Marcus Vergara MD LAB POCT ORDERABLES - DEVICE Fi nal Result Performing Organization Address [facility]/ZIP Co de Phone Number [facility] Department [place] [address] * Vancomycin level trough (10/21/2024 7:06 PM REFINERY PROCESS ENGINEER) [facility] Vancomycin trough 17.0 10.0 - 20.0 mcg/mL Comment:Repeated and Verifie d Blood 10/21/2024 7:06 PM REFINERY PROCESS ENGINEER 10/21/2024 7:16 PM REFINERY PROCESS ENGINEER Jeanine Dupont MD LAB BLOOD ORDERABLES Final Result Performing Organization Address [facility] Co de Phone Number [facility] [place] [address] * POCT glucose (10/21/2024 7:05 PM REFINERY PROCESS ENGINEER) Glucose, POC 127 70 - 199 mg/dL Blood 10/21/2024 7:05 PM REFINERY PROCESS ENGINEER 10/21/2024 7:05 PM REFINERY PROCESS ENGINEER Result [facility] Marcus Vergara MD LAB POCT ORDERABLES - DEVICE Fi nal Result Performing Organization Address [facility] [place] [address] * Vancomycin level trough (10/21/2024 4:32 PM REFINERY PROCESS ENGINEER) Vancomycin trough See Comment 10.0 - 20.0 mcg/mL Comment: Credited; Hemolyzed Specimen Telephone report made to: Candace (RN) on 10/21/2024 18:35:51 REFINERY PROCESS ENGINEER by KG . Blood 10/21/2024 4:32 PM REFINERY PROCESS ENGINEER 10/21/2024 4:48 PM REFINERY PROCESS ENGINEER Result [facility] Jeanine Dupont MD LAB BLOOD ORDERABLES Final Result Performing Organization Address [facility] Co de Phone Number [place], [place] [id number] * POCT glucose (10/21/2024 11:53 AM REFINERY PROCESS ENGINEER) Glucose, POC 116 70 - 199 mg/dL Blood 10/21/2024 11:5 3 AM REFINERY PROCESS ENGINEER 10/21/2024 11:53 AM REFINERY PROCESS ENGINEER us Marcus Vergara MD LAB POCT ORDERABLES - DEVICE Fi nal Result Performing Organization Address [facility] de Phone Number [facility] [place] [address] * POCT glucose (10/21/2024 3:22 AM REFINERY PROCESS ENGINEER) Pathologist [facility] [place] Glucose, POC 130 70 - 199 mg/dL Blood 10/21/2024 3:22 AM REFINERY PROCESS ENGINEER 10/21/2024 3:22 AM REFINERY PROCESS ENGINEER us Marcus Vergara MD LAB POCT ORDERABLES - DEVICE Fi nal Result Performing Organization Address [facility] de Phone Number [facility] [place] [address] * Immature platelet fraction (10/21/2024 3:15 AM REFINERY PROCESS ENGINEER) Pathologist [facility] [place] IPF 3.9 1.6 - 10.1 % Blood 10/21/2024 3:15 AM REFINERY PROCESS ENGINEER 10/21/2024 4:06 AM REFINERY PROCESS ENGINEER us Marcus Vergara MD LAB BLOOD ORDERABLES Final Resu lt Performing Organization Address [facility] Phone Number [facility] [place] [address] * eGFR (10/21/2024 3:15 AM REFINERY PROCESS ENGINEER) [facility] eGFR >90 >=60 mL/min/1. 73 m2 Comment: Interpretive Data Reference Interval Normal >/= 90 mL/min/1.73m2 Mildly decreased* 60 - 89 mL/min/1.73m2 Mildly to moderately decreased 45 - 59 mL/min/1.73m2 Moderately to severely decreased 30 - 44 mL/min/1.73m2 Severely decreased 15 - 29 mL/min/1.73m2 Kidney Failure < 15 mL/min/1.73m2 *Relative to young adult level Estimated glomerular filtration rate is determined by the 2020 CKD-EPI equation recommended by the National Kidney Foundation (A Unifying Approach to GFR Estimation: Recommendations of the NKF-ASK Task Force on Reassessing the Inclusion of Race in Diagnosing Kidney Disease, JASN 2020). The CKD-EPI equation should not be used for patients with unstable renal function and has not been validated in children and those over 70. Current interpretive data was last reviewed 2021. Blood 10/21/2024 3:15 AM REFINERY PROCESS ENGINEER 10/21/2024 4:03 AM REFINERY PROCESS ENGINEER us Marcus Vergara MD LAB BLOOD ORDERABLES Final Resu lt [facility] Department [place] [address] * (ABNORMAL) Manual Differential (10/21/2024 3:15 AM REFINERY PROCESS ENGINEER) Differential Manual Cells Counted 34 [facility] Neutrophil abs 0.2(C) 1.5 - 6.5 K/cumm [facility] Comment:BMT patient, result not critical Imm gran abs 0.0 0.0 - 0.1 K/cumm [facility] Lymphocyte abs 0.0(L) 0.8 - 3.3 K/cumm [facility] Monocyte abs 0.0(L) 0.2 - 0.8 K/cumm [facility] Neutrophil pct 88.3 % [facility] Comment: Interpretive Data Percent cell count reference ranges are not reported, since discordance with absolute values may lead to misinterpretation of CBC data. Current Interpretive Data was last revised on 2017. Lymphocyte pct 5.9 % [facility] Comment: Interpretive Data Percent cell count reference ranges are not reported, since discordance with absolute values may lead to misinterpretation of CBC data. Current Interpretive Data was last revised on 2017. Monocyte pct 2.9 % [facility] Comment: Interpretive Data Percent cell count reference ranges are not reported, since discordance with absolute values may lead to misinterpretation of CBC data. Current Interpretive Data was last revised on 2017. Promyelocyte pct 2.9 % [facility] RBC morphology Normal [facility] Platelet estimate Decreased( A) [facility] Blood 10/21/2024 3:15 AM REFINERY PROCESS ENGINEER 10/21/2024 4:03 AM REFINERY PROCESS ENGINEER us Marcus Vergara MD LAB BLOOD ORDERABLES Final Resu lt [facility] Department [place] [address] * (ABNORMAL) CBC without differential (10/21/2024 3:15 AM REFINERY PROCESS ENGINEER) WBC 0.2(C) 3.8 - 9.9 K/cumm Comment:Consistent with prev ious reported value Hgb 8.0(L) 11.9 - 15.5 g/dL [facility] Hct 23.0(L) 35.6 - 45.5 % [facility] Plt 16(C) 150 - 400 K/cumm [facility] Comment:Platelet count confi rmed by additional testing. Critical platelet count threshold determined by patient location: Outpatient:<50 K-cumm , Inpatient:<20 K-cumm , BMT service:<10 K-cumm MPV 10.8 9.1 - 12.3 fL [facility] RBC 2.64(L) 3.90 - 5.20 M/cumm [facility] MCV 87.1 81.3 - 96.4 fL [facility] MCH 30.3 27.1 - 33.3 pg [facility] MCHC 34.8 32.3 - 35.7 g/dL [facility] RDW CV 15.1(H) 11.1 - 14.9 % [facility] RDW SD 48.6(H) 35.7 - 48.1 fL [facility] NRBC abs 0.00 0.00 - 0.01 K/cumm [facility] Blood 10/21/2024 3:15 AM REFINERY PROCESS ENGINEER 10/21/2024 4:03 AM REFINERY PROCESS ENGINEER us Marcus Vergara MD LAB BLOOD ORDERABLES Final Resu lt Performing Organization Address [facility] Co de Phone Number [facility] [place] [address] * (ABNORMAL) Phosphorus (10/21/2024 3:15 AM REFINERY PROCESS ENGINEER) Phosphorus, pl 2.1(L) 2.3 - 4.5 mg/dL Blood 10/21/2024 3:15 AM REFINERY PROCESS ENGINEER 10/21/2024 4:03 AM REFINERY PROCESS ENGINEER us Marcus Vergara MD LAB BLOOD ORDERABLES Final Resu lt Performing Organization Address [facility] Co de Phone Number [facility] [place] [address] * Magnesium (10/21/2024 3:15 AM REFINERY PROCESS ENGINEER) [facility] Magnesium 2.0 1.4 - 2.5 mg/dL Blood 10/21/2024 3:15 AM REFINERY PROCESS ENGINEER 10/21/2024 4:03 AM REFINERY PROCESS ENGINEER us Marcus Vergara MD LAB BLOOD ORDERABLES Final Resu lt Performing Organization Address [facility] Co de Phone Number [facility] [place] [address] * (ABNORMAL) Hepatic function panel (10/21/2024 3:15 AM REFINERY PROCESS ENGINEER) Bilirubin, total 0.8 0.1 - 1.2 mg/dL Bilirubin, direct 0.4(H) 0.1 - 0.3 mg/dL [facility] Protein, pl 5.2(L) 6.5 - 8.5 g/dL [facility] Albumin 2.3(L) 3.5 - 5.0 g/dL [facility] Alk phos 67 40 - 130 Units/L [facility] ALT 23 7 - 45 Units/L [facility] AST 15 10 - 45 Units/L [facility] Blood 10/21/2024 3:15 AM REFINERY PROCESS ENGINEER 10/21/2024 4:03 AM REFINERY PROCESS ENGINEER us Jovany Justice NP LAB BLOOD ORDERABLES Final Result Performing Organization Address [facility]/ZIP Co de Phone Number [facility] Department [place] [address] * (ABNORMAL) Basic metabolic panel (10/21/2024 3:15 AM REFINERY PROCESS ENGINEER) Pathologist [facility] [place] Sodium 140 135 - 145 mmol/L Potassium, pl 3.5 3.3 - 4.9 mmol/L [facility] Chloride 106 97 - 110 mmol/L [facility] CO2 26 22 - 32 mmol/L [facility] Anion gap 8 2 - 15 mmol/L [facility] BUN 19 6 - 25 mg/dL [facility] Creatinine 0.44(L) 0.60 - 1.10 mg/dL [facility] Glucose 123 70 - 199 mg/dL [facility] Comment: Interpretive Data Fasting glucose >/= 126 mg/dl is diagnostic for diabetes. Fasting is defined as no caloric intake for at least 8 hours. Fasting glucose between 100 mg/dl to 125 mg/dl is diagnostic of prediabetes. In a patient with classic symptoms of hyperglycemia or hyperglycemic crisis, a random glucose >/= 200 mg/dl is diagnostic for diabetes. In the absence of unequivocal hyperglycemia, results should be confirmed by repeat testing. The classification and Diagnosis of Diabetes Diabetes Care 2021; 46: S19-S40. Current interpretive data was last revised 2022. Calcium 7.1(L) 8.5 - 10.3 mg/dL [facility] Blood 10/21/2024 3:15 AM REFINERY PROCESS ENGINEER 10/21/2024 4:03 AM REFINERY PROCESS ENGINEER us Marcus Vergara MD LAB BLOOD ORDERABLES Final Resu lt Performing Organization Address [facility]/ZIP Co de Phone Number [facility] [place] [address] * POCT glucose (10/20/2024 8:55 PM REFINERY PROCESS ENGINEER) Glucose, POC 147 70 - 199 mg/dL Blood 10/20/2024 8:55 PM REFINERY PROCESS ENGINEER 10/20/2024 8:55 PM REFINERY PROCESS ENGINEER us Marcus Vergara MD LAB POCT ORDERABLES - DEVICE Fi nal Result Performing Organization Address City/[facility] [place] [address] * POCT glucose (10/20/2024 5:53 PM REFINERY PROCESS ENGINEER) Glucose, POC 145 70 - 199 mg/dL Blood 10/20/2024 5:53 PM REFINERY PROCESS ENGINEER 10/20/2024 5:53 PM REFINERY PROCESS ENGINEER us Marcus Vergara MD LAB POCT ORDERABLES - DEVICE Fi nal Result Performing Organization Address [facility] [place] [address] * POCT glucose (10/20/2024 12:29 PM REFINERY PROCESS ENGINEER) Glucose, POC 139 70 - 199 mg/dL Blood 10/20/2024 12:2 9 PM REFINERY PROCESS ENGINEER 10/20/2024 12:29 PM REFINERY PROCESS ENGINEER us Marcus Vergara MD LAB POCT ORDERABLES - DEVICE Fi nal Result Performing Organization Address City/[facility] [place] [address] * POCT glucose (10/20/2024 10:51 AM REFINERY PROCESS ENGINEER) Glucose, POC 147 70 - 199 mg/dL Blood 10/20/2024 10:5 1 AM REFINERY PROCESS ENGINEER 10/20/2024 10:51 AM REFINERY PROCESS ENGINEER Result [facility] Marcus Vergara MD LAB POCT ORDERABLES - DEVICE Fi nal Result Performing Organization Address [facility] Co de Phone Number [facility] Department [place] [address] * Transfuse platelets (10/20/2024 9:01 AM REFINERY PROCESS ENGINEER) Marcus Vergara MD BLOOD TRANSFUSION ORDERABLES Fi nal Result Performing Organization Address [facility] Co de Phone Number [facility] Department [place] [address] * Prepare platelets: 1 Units (10/20/2024 5:35 AM REFINERY PROCESS ENGINEER) Pathologist [facility] [place] Product code [id number] Unit Number [id number] Q [facility] Product Blood Type APOS [facility] Dispense Status PRESUMED TRANSFUSED [facility] Blood Venous blood specimen / Unknown 10/20/2024 5:35 AM REFINERY PROCESS ENGINEER 10/20/2024 5:34 AM REFINERY PROCESS ENGINEER Narrative [facility] - 10/20/2024 8:00 PM REFINERY PROCESS ENGINEER Are special requirements needed? (all products are leukoreduced)->Yes Date required:-[id number] Special Req 1:-Irradiated PLT # of Units:-1-Units Reasons:-Stable, non-bleeding, plt < 10 K/cumm} Result [facility] Marcus Vergara MD BLOOD BANK PRODUCT ORDERABLES F inal Result Performing Organization Address [facility] de Phone Number [facility] Department [place] [address] * POCT glucose (10/20/2024 3:39 AM REFINERY PROCESS ENGINEER) Glucose, POC 156 70 - 199 mg/dL Blood 10/20/2024 3:39 AM REFINERY PROCESS ENGINEER 10/20/2024 3:39 AM REFINERY PROCESS ENGINEER us Marcus Vergara MD LAB POCT ORDERABLES - DEVICE Fi nal Result [facility] [place] [address] * Immature platelet fraction (10/20/2024 3:29 AM REFINERY PROCESS ENGINEER) IPF 4.4 1.6 - 10.1 % Blood 10/20/2024 3:29 AM REFINERY PROCESS ENGINEER 10/20/2024 4:18 AM REFINERY PROCESS ENGINEER us Marcus Vergara MD LAB BLOOD ORDERABLES Final Resu lt Performing Organization Address City/[facility] Co de Phone Number DAVID [facility] [place] [address] * eGFR (10/20/2024 3:29 AM REFINERY PROCESS ENGINEER) eGFR >90 >=60 mL/min/1. 73 m2 Comment: Interpretive Data Reference Interval Normal >/= 90 mL/min/1.73m2 Mildly decreased* 60 - 89 mL/min/1.73m2 Mildly to moderately decreased 45 - 59 mL/min/1.73m2 Moderately to severely decreased 30 - 44 mL/min/1.73m2 Severely decreased 15 - 29 mL/min/1.73m2 Kidney Failure < 15 mL/min/1.73m2 *Relative to young adult level Estimated glomerular filtration rate is determined by the 2020 CKD-EPI equation recommended by the National Kidney Foundation (A Unifying Approach to GFR Estimation: Recommendations of the NKF-ASK Task Force on Reassessing the Inclusion of Race in Diagnosing Kidney Disease, JASN 2020). The CKD-EPI equation should not be used for patients with unstable renal function and has not been validated in children and those over 70. Current interpretive data was last reviewed 2021. Blood 10/20/2024 3:29 AM REFINERY PROCESS ENGINEER 10/20/2024 4:15 AM REFINERY PROCESS ENGINEER us Marcus Vergara MD LAB BLOOD ORDERABLES Final Resu lt Performing Organization Address [facility] Co de Phone Number [facility] Department [place] [address] * (ABNORMAL) Manual Differential (10/20/2024 3:29 AM REFINERY PROCESS ENGINEER) Differential Manual Cells Counted 29 [facility] Neutrophil abs 0.1(C) 1.5 - 6.5 K/cumm [facility] Comment:BMT patient, result not critical Lymphocyte abs 0.0(L) 0.8 - 3.3 K/cumm [facility] Monocyte abs 0.0(L) 0.2 - 0.8 K/cumm [facility] Neutrophil pct 89.7 % [facility] Comment: Interpretive Data Percent cell count reference ranges are not reported, since discordance with absolute values may lead to misinterpretation of CBC data. Current Interpretive Data was last revised on 2017. Lymphocyte pct 10.3 % [facility] Comment: Interpretive Data Percent cell count reference ranges are not reported, since discordance with absolute values may lead to misinterpretation of CBC data. Current Interpretive Data was last revised on 2017. RBC morphology Present(A) [facility] Anisocytosis Slight(A) [facility] Platelet estimate Decreased( A) [facility] Blood 10/20/2024 3:29 AM REFINERY PROCESS ENGINEER 10/20/2024 4:15 AM REFINERY PROCESS ENGINEER us Marcus Vergara MD LAB BLOOD ORDERABLES Edited Res ult - Final Performing Organization Address City/[facility]/ZIP Co de Phone Number DAVID [facility] Department [place] [address] * (ABNORMAL) CBC without differential (10/20/2024 3:29 AM REFINERY PROCESS ENGINEER) WBC 0.1(C) 3.8 - 9.9 K/cumm Comment:Consistent with prev ious reported value Hgb 8.8(L) 11.9 - 15.5 g/dL [facility] Hct 25.6(L) 35.6 - 45.5 % [facility] Plt 7(C) 150 - 400 K/cumm [facility] Comment: Platelet count confirmed by additional testing. Critical platelet count threshold determined by patient location: Outpatient:<50 K-cumm , Inpatient:<20 K-cumm , BMT service:<10 K-cumm. Critical result called to and read back by SUYAPA MEDINA RN on 10 20 2024 at 0457 to Rivka Magallon. MPV 11.9 9.1 - 12.3 fL [facility] RBC 2.92(L) 3.90 - 5.20 M/cumm [facility] MCV 87.7 81.3 - 96.4 fL [facility] MCH 30.1 27.1 - 33.3 pg [facility] MCHC 34.4 32.3 - 35.7 g/dL [facility] RDW CV 15.2(H) 11.1 - 14.9 % [facility] RDW SD 49.2(H) 35.7 - 48.1 fL [facility] NRBC abs 0.00 0.00 - 0.01 K/cumm [facility] Blood 10/20/2024 3:29 AM REFINERY PROCESS ENGINEER 10/20/2024 4:15 AM REFINERY PROCESS ENGINEER Marcus Vergara MD LAB BLOOD ORDERABLES Final Resu lt Performing Organization Address City/[facility]/ZIP Co de Phone Number [facility] Department [employer] [place], [place] [id number] * (ABNORMAL) Phosphorus (10/20/2024 3:29 AM REFINERY PROCESS ENGINEER) [facility] Phosphorus, pl 1.6(L) 2.3 - 4.5 mg/dL Blood 10/20/2024 3:29 AM REFINERY PROCESS ENGINEER 10/20/2024 4:15 AM REFINERY PROCESS ENGINEER Marcus Vergara MD LAB BLOOD ORDERABLES Final Resu lt [facility] Department [place] [address] * Magnesium (10/20/2024 3:29 AM REFINERY PROCESS ENGINEER) [facility] Magnesium 2.0 1.4 - 2.5 mg/dL Blood 10/20/2024 3:29 AM REFINERY PROCESS ENGINEER 10/20/2024 4:15 AM REFINERY PROCESS ENGINEER Marcus Vergara MD LAB BLOOD ORDERABLES Final Resu lt Performing Organization Address [facility] [facility] Co de Phone Number [facility] Department [place] [address] * (ABNORMAL) Hepatic function panel (10/20/2024 3:29 AM REFINERY PROCESS ENGINEER) [facility] Bilirubin, total 1.6(H) 0.1 - 1.2 mg/dL Bilirubin, direct 0.8(H) 0.1 - 0.3 mg/dL [facility] Protein, pl 6.0(L) 6.5 - 8.5 g/dL [facility] Albumin 2.3(L) 3.5 - 5.0 g/dL [facility] Alk phos 78 40 - 130 Units/L [facility] ALT 22 7 - 45 Units/L [facility] AST 15 10 - 45 Units/L [facility] Blood 10/20/2024 3:29 AM REFINERY PROCESS ENGINEER 10/20/2024 4:15 AM REFINERY PROCESS ENGINEER Jovany Justice NP LAB BLOOD ORDERABLES Final Result Performing Organization Address [facility] Co de Phone Number [facility] Department [place] [address] * (ABNORMAL) Basic metabolic panel (10/20/2024 3:29 AM REFINERY PROCESS ENGINEER) [facility] Sodium 140 135 - 145 mmol/L Potassium, pl 4.4 3.3 - 4.9 mmol/L [facility] Chloride 106 97 - 110 mmol/L [facility] CO2 26 22 - 32 mmol/L [facility] Anion gap 8 2 - 15 mmol/L [facility] BUN 15 6 - 25 mg/dL [facility] Creatinine 0.44(L) 0.60 - 1.10 mg/dL [facility] Glucose 151 70 - 199 mg/dL [facility] Comment: Interpretive Data Fasting glucose >/= 126 mg/dl is diagnostic for diabetes. Fasting is defined as no caloric intake for at least 8 hours. Fasting glucose between 100 mg/dl to 125 mg/dl is diagnostic of prediabetes. In a patient with classic symptoms of hyperglycemia or hyperglycemic crisis, a random glucose >/= 200 mg/dl is diagnostic for diabetes. In the absence of unequivocal hyperglycemia, results should be confirmed by repeat testing. The classification and Diagnosis of Diabetes Diabetes Care 2021; 46: S19-S40. Current interpretive data was last revised 2022. Calcium 7.4(L) 8.5 - 10.3 mg/dL [facility] Blood 10/20/2024 3:29 AM REFINERY PROCESS ENGINEER 10/20/2024 4:15 AM REFINERY PROCESS ENGINEER Marcus Vergara MD LAB BLOOD ORDERABLES Final Resu lt Performing Organization Address City/[facility]/ZIP Co de Phone Number [facility] Department [place] [address] * POCT glucose (10/19/2024 8:42 PM REFINERY PROCESS ENGINEER) Glucose, POC 146 70 - 199 mg/dL Blood 10/19/2024 8:42 PM REFINERY PROCESS ENGINEER 10/19/2024 8:42 PM REFINERY PROCESS ENGINEER Marcus Vergara MD LAB POCT ORDERABLES - DEVICE Fi nal Result Performing Organization Address [facility] Co de Phone Number [facility] [place] [address] * Vancomycin level trough (10/19/2024 5:02 PM REFINERY PROCESS ENGINEER) Vancomycin trough 12.9 10.0 - 20.0 mcg/mL Comment:Reviewed Blood 10/19/2024 5:02 PM REFINERY PROCESS ENGINEER 10/19/2024 5:18 PM REFINERY PROCESS ENGINEER Jovany Justice FOOD WRITER LAB BLOOD ORDERABLES Final Result Performing Organization Address [facility] Phone Number [facility] [place] [address] * POCT glucose (10/19/2024 4:50 PM REFINERY PROCESS ENGINEER) Glucose, POC 145 70 - 199 mg/dL Blood 10/19/2024 4:50 PM REFINERY PROCESS ENGINEER 10/19/2024 4:50 PM REFINERY PROCESS ENGINEER Marcus Vergara MD LAB POCT ORDERABLES - DEVICE Fi nal Result Performing Organization Address [facility] Phone Number [facility] [place] [address] * POCT glucose (10/19/2024 10:44 AM REFINERY PROCESS ENGINEER) Glucose, POC 110 70 - 199 mg/dL Blood 10/19/2024 10:4 4 AM REFINERY PROCESS ENGINEER 10/19/2024 10:44 AM REFINERY PROCESS ENGINEER us Marcus Vergara MD LAB POCT ORDERABLES - DEVICE Fi nal Result Performing Organization Address [facility] Phone Number [facility] [place] [address] * (ABNORMAL) Immature platelet fraction (10/19/2024 9:25 AM REFINERY PROCESS ENGINEER) IPF 1.4(L) 1.6 - 10.1 % Blood 10/19/2024 9:25 AM REFINERY PROCESS ENGINEER 10/19/2024 9:47 AM REFINERY PROCESS ENGINEER Jovany Justice NP LAB BLOOD ORDERABLES Final Result Performing Organization Address [facility]/ZIP Co de Phone Number [facility] Department [place] [address] * (ABNORMAL) CBC without differential (10/19/2024 9:25 AM REFINERY PROCESS ENGINEER) WBC 0.1(C) 3.8 - 9.9 K/cumm Comment:Consistent with prev ious reported value Hgb 8.4(L) 11.9 - 15.5 g/dL [facility] Hct 24.7(L) 35.6 - 45.5 % [facility] Plt 21(C) 150 - 400 K/cumm [facility] Comment:Platelet count confi rmed by additional testing. Critical platelet count threshold determined by patient location: Outpatient:<50 K-cumm , Inpatient:<20 K-cumm , BMT service:<10 K-cumm MPV 11.9 9.1 - 12.3 fL [facility] RBC 2.72(L) 3.90 - 5.20 M/cumm [facility] MCV 90.8 81.3 - 96.4 fL [facility] MCH 30.9 27.1 - 33.3 pg [facility] MCHC 34.0 32.3 - 35.7 g/dL [facility] RDW CV 16.1(H) 11.1 - 14.9 % [facility] RDW SD 53.0(H) 35.7 - 48.1 fL [facility] NRBC abs 0.00 0.00 - 0.01 K/cumm [facility] Blood 10/19/2024 9:25 AM REFINERY PROCESS ENGINEER 10/19/2024 9:42 AM REFINERY PROCESS ENGINEER us Jovany Justice NP LAB BLOOD ORDERABLES Final Result [facility] Department [place] [address] * Transfuse platelets (10/19/2024 8:06 AM REFINERY PROCESS ENGINEER) us Marcus Vergara MD BLOOD TRANSFUSION ORDERABLES Fi nal Result [facility] Department [place] [address] * POCT glucose (10/19/2024 6:56 AM REFINERY PROCESS ENGINEER) Glucose, POC 128 70 - 199 mg/dL Blood 10/19/2024 6:56 AM REFINERY PROCESS ENGINEER 10/19/2024 6:56 AM REFINERY PROCESS ENGINEER Marcus Vergara MD LAB POCT ORDERABLES - [place] [address] * Sepsis Lactate w/ Reflex (10/19/2024 6:53 AM REFINERY PROCESS ENGINEER) Pathologist [facility] [place] Sepsis Lactate 0.8 0.7 - 2.0 mmol/L Blood 10/19/2024 6:53 AM REFINERY PROCESS ENGINEER 10/19/2024 7:04 AM REFINERY PROCESS ENGINEER Narrative DAVID GARCÍA - 10/19/2024 7:12 AM REFINERY PROCESS ENGINEER Obtain Lactate w/ reflex STAT. Lactate result greater than 2 mmol/L is abnormal. Call provider immediately upon receiving abnormal lactate result. If results are abnormal, Bridge will automatically activate two additional lactate levels. One to be drawn 3 hrs after the initial lactate level was drawn. If the second sample is > 2.0, a rule will fire to order an additional Lactate timed 3 hours from the second order's collection time. us Marcus Vergara MD LAB BLOOD ORDERABLES Final Resu lt [facility] Department [place] [address] * Blood culture Blood Peripheral (10/19/2024 6:53 AM REFINERY PROCESS ENGINEER) Pathologist [facility] [place] Report Final Report: No growth Blood (Peripheral) 10/19/2024 6:53 AM REFINERY PROCESS ENGINEER 10/19/2024 7:10 AM REFINERY PROCESS ENGINEER Narrative DAVID GARCÍAH - 10/23/2024 12:00 PM REFINERY PROCESS ENGINEER Collection->Peripheral 1. Blood cultures are incubated for 4 days on a continuously monitored blood culture system. The first report of a negative culture is issued within 24 hours of receipt of the specimen in the laboratory. 2. Positive culture results are reported as soon as they are detected. 3. The most important factor for detection of microbes in the setting of bloodstream infection is the volume of blood submitted for culture. Failure to collect an optimal blood volume can result in false negative blood cultures. 4. For pediatric patients, the recommended blood volume to collect follows a weight based strategy. See the electronic test catalog for collection instructions. 5. For positive blood cultures, a rapid molecular test may be performed for organism identification using the rosemary ePlex blood culture identification panel for gram positive (BCID-GP) and gram negative (BCID-GN) organisms. This nucleic acid amplification test detects microbial DNA in positive blood culture broth. This assay has been cleared by the [place] Food and Drug Administration and its performance characteristics have been verified by the [facility] Microbiology Laboratory. For questions about this culture, contact the Microbiology Laboratory at [phone]. Interpretive data was last revised on 24. us Marcus Vergara MD LAB MICROBIOLOGY - [facility] Final Result DAVID GARCÍA [facility] Department [place] [address] * Blood culture Blood Peripheral (10/19/2024 6:53 AM REFINERY PROCESS ENGINEER) Report Final Report: No growth Blood (Peripheral) 10/19/2024 6:53 AM REFINERY PROCESS ENGINEER 10/19/2024 7:10 AM REFINERY PROCESS ENGINEER Narrative DAVID [facility] - 10/23/2024 12:00 PM REFINERY PROCESS ENGINEER Collection->Peripheral 1. Blood cultures are incubated for 4 days on a continuously monitored blood culture system. The first report of a negative culture is issued within 24 hours of receipt of the specimen in the laboratory. 2. Positive culture results are reported as soon as they are detected. 3. The most important factor for detection of microbes in the setting of bloodstream infection is the volume of blood submitted for culture. Failure to collect an optimal blood volume can result in false negative blood cultures. 4. For pediatric patients, the recommended blood volume to collect follows a weight based strategy. See the electronic test catalog for collection instructions. 5. For positive blood cultures, a rapid molecular test may be performed for organism identification using the rosemary ePlex blood culture identification panel for gram positive (BCID-GP) and gram negative (BCID-GN) organisms. This nucleic acid amplification test detects microbial DNA in positive blood culture broth. This assay has been cleared by the [place] Food and Drug Administration and its performance characteristics have been verified by the [facility] Microbiology Laboratory. For questions about this culture, contact the Microbiology Laboratory at [phone]. Interpretive data was last revised on 24. us Marcus Vergara MD LAB MICROBIOLOGY - GENERAL [facility] Final Result Performing Organization Address [facility] de Phone Number [facility] Department [place] [address] * Prepare platelets: 1 Units (10/19/2024 5:14 AM REFINERY PROCESS ENGINEER) [facility] Product code [id number] Unit Number [id number] [facility] Product Blood Type APOS [facility] Dispense Status PRESUMED TRANSFUSED [facility] Blood Venous blood specimen / Unknown 10/19/2024 5:14 AM REFINERY PROCESS ENGINEER 10/19/2024 5:13 AM REFINERY PROCESS ENGINEER Narrative [facility] - 10/19/2024 8:01 PM REFINERY PROCESS ENGINEER Are special requirements needed? (all products are leukoreduced)->Yes Date required:-[id number] Special Req 1:-Irradiated PLT # of Units:-1-Units Reasons:-Stable, non-bleeding, plt < 10 K/cumm} us Marcus Vergara MD BLOOD BANK PRODUCT ORDERABLES F inal Result Performing Organization Address [facility] de Phone Number [facility] [place] [address] * Immature platelet fraction (10/19/2024 2:59 AM REFINERY PROCESS ENGINEER) [facility] IPF 2.0 1.6 - 10.1 % Blood 10/19/2024 2:59 AM REFINERY PROCESS ENGINEER 10/19/2024 3:33 AM REFINERY PROCESS ENGINEER us Marcus Vergara MD LAB BLOOD ORDERABLES Final Resu lt Performing Organization Address City/[facility]/ZIP Co de Phone Number DAVID [facility] [place] [address] * eGFR (10/19/2024 2:59 AM REFINERY PROCESS ENGINEER) [facility] eGFR >90 >=60 mL/min/1. 73 m2 Comment: Interpretive Data Reference Interval Normal >/= 90 mL/min/1.73m2 Mildly decreased* 60 - 89 mL/min/1.73m2 Mildly to moderately decreased 45 - 59 mL/min/1.73m2 Moderately to severely decreased 30 - 44 mL/min/1.73m2 Severely decreased 15 - 29 mL/min/1.73m2 Kidney Failure < 15 mL/min/1.73m2 *Relative to young adult level Estimated glomerular filtration rate is determined by the 2020 CKD-EPI equation recommended by the National Kidney Foundation (A Unifying Approach to GFR Estimation: Recommendations of the NKF-ASK Task Force on Reassessing the Inclusion of Race in Diagnosing Kidney Disease, JASN 2020). The CKD-EPI equation should not be used for patients with unstable renal function and has not been validated in children and those over 70. Current interpretive data was last reviewed 2021. Blood 10/19/2024 2:59 AM REFINERY PROCESS ENGINEER 10/19/2024 3:29 AM REFINERY PROCESS ENGINEER us Marcus Vergara MD LAB BLOOD ORDERABLES Final Resu lt [facility] [place] [address] * (ABNORMAL) Manual Differential (10/19/2024 2:59 AM REFINERY PROCESS ENGINEER) [facility] Differential Manual Cells Counted 8 [facility] Neutrophil pct 37.5 % [facility] Comment: Interpretive Data Percent cell count reference ranges are not reported, since discordance with absolute values may lead to misinterpretation of CBC data. Current Interpretive Data was last revised on 2017. Lymphocyte pct 62.5 % [facility] Comment: Interpretive Data Percent cell count reference ranges are not reported, since discordance with absolute values may lead to misinterpretation of CBC data. Current Interpretive Data was last revised on 2017. RBC morphology Normal [facility] Platelet estimate Decreased( A) [facility] Blood 10/19/2024 2:59 AM REFINERY PROCESS ENGINEER 10/19/2024 3:29 AM REFINERY PROCESS ENGINEER Marcus Vergara MD LAB BLOOD ORDERABLES Edited Res ult - Final Performing Organization Address City/[facility] Co de Phone Number [facility] [place] [address] * aPTT (10/19/2024 2:59 AM REFINERY PROCESS ENGINEER) [facility] aPTT 34 28 - 38 sec Comment: Interpretive Data Heparin therapeutic range: 66.0 - 100.0 seconds. Range based on correlation with therapeutic heparin activity range of 0.3 - 0.7 Units/mL. Current interpretive data was last revised on 2023. Blood 10/19/2024 2:59 AM REFINERY PROCESS ENGINEER 10/19/2024 3:32 AM REFINERY PROCESS ENGINEER Marcus Vergara MD LAB BLOOD ORDERABLES Final Resu lt Performing Organization Address City/[facility]/ZIP Co de Phone Number [facility] [place] [address] * (ABNORMAL) Protime-INR (10/19/2024 2:59 AM REFINERY PROCESS ENGINEER) [facility] PT 19.8(H) 9.7 - 13.0 sec INR 1.81(H) 0.90 - 1.20 [facility] Comment: Interpretive data Oral anticoagulant therapeutic ranges: Venous thromboembolism prophylaxis or treatment: 2.0-3.0 CARDIOLOGY Standard range: 2.0-3.0 High-intensity range: 2.5-3.5 Refer to indication-specific guidelines for appropriate target ranges for prosthetic heart valve replacement. Current interpretive data was last revised on 2019. Blood 10/19/2024 2:59 AM REFINERY PROCESS ENGINEER 10/19/2024 3:32 AM REFINERY PROCESS ENGINEER us Marcus Vergara MD LAB BLOOD ORDERABLES Final Resu lt [facility] Department [place] [address] * (ABNORMAL) CBC without differential (10/19/2024 2:59 AM REFINERY PROCESS ENGINEER) WBC 0.0(C) 3.8 - 9.9 K/cumm Comment:Consistent with prev ious reported value Hgb 8.0(L) 11.9 - 15.5 g/dL [facility] Hct 23.5(L) 35.6 - 45.5 % [facility] Plt 2(C) 150 - 400 K/cumm [facility] Comment:Critical result call ed to and read back by PACO PATRICIA RN on 10 19 2024 at 0350 to Kristin Matute. MPV Not Measured 9.1 - 12.3 fL [facility] RBC 2.62(L) 3.90 - 5.20 M/cumm [facility] MCV 89.7 81.3 - 96.4 fL [facility] MCH 30.5 27.1 - 33.3 pg [facility] MCHC 34.0 32.3 - 35.7 g/dL [facility] RDW CV 15.9(H) 11.1 - 14.9 % [facility] RDW SD 52.0(H) 35.7 - 48.1 fL [facility] NRBC abs 0.00 0.00 - 0.01 K/cumm [facility] Blood 10/19/2024 2:59 AM REFINERY PROCESS ENGINEER 10/19/2024 3:29 AM REFINERY PROCESS ENGINEER Marcus Vergara MD LAB BLOOD ORDERABLES Final Resu lt Performing Organization Address [facility] Co de Phone Number [facility] [place] [address] * Type and screen (10/19/2024 2:59 AM REFINERY PROCESS ENGINEER) Pathologist [facility] [place] ABO Rh A Positive Bing, indirect Negative [facility] Blood 10/19/2024 2:59 AM REFINERY PROCESS ENGINEER 10/19/2024 3:35 AM REFINERY PROCESS ENGINEER Narrative [facility] - 10/19/2024 4:33 AM REFINERY PROCESS ENGINEER Has the patient had Daratumumab or Isatuximab in the past 6 months?->Unknown Result [facility] Marcus Vergara MD LAB BLOOD BANK TEST ORDERABLES Final Result Performing Organization Address [facility] Phone Number [facility] [place] [address] * (ABNORMAL) Uric acid (10/19/2024 2:59 AM REFINERY PROCESS ENGINEER) [facility] Uric acid 0.4(L) 2.5 - 7.0 mg/dL Comment:Result maybe falsely decreased due to Elitek (Rasburicase) Blood 10/19/2024 2:59 AM REFINERY PROCESS ENGINEER 10/19/2024 3:29 AM REFINERY PROCESS ENGINEER Narrative [facility] - 10/19/2024 4:02 AM REFINERY PROCESS ENGINEER Saturday and only. Morning draw. . Marcus Vergara MD LAB BLOOD ORDERABLES Final Resu lt Performing Organization Address [facility] Co de Phone Number [facility] [place] [address] * (ABNORMAL) Phosphorus (10/19/2024 2:59 AM REFINERY PROCESS ENGINEER) Pathologist [facility] [place] Phosphorus, pl 1.9(L) 2.3 - 4.5 mg/dL Blood 10/19/2024 2:59 AM REFINERY PROCESS ENGINEER 10/19/2024 3:29 AM REFINERY PROCESS ENGINEER us Marcus Vergara MD LAB BLOOD ORDERABLES Final Resu lt Performing Organization Address [facility] Co de Phone Number [facility] [place] [address] * Magnesium (10/19/2024 2:59 AM REFINERY PROCESS ENGINEER) [facility] Magnesium 2.0 1.4 - 2.5 mg/dL Blood 10/19/2024 2:59 AM REFINERY PROCESS ENGINEER 10/19/2024 3:29 AM REFINERY PROCESS ENGINEER us Marcus Vergara MD LAB BLOOD ORDERABLES Final Resu lt Performing Organization Address [facility] Co de Phone Number [facility] [place] [address] * Lactate dehydrogenase (LD) (10/19/2024 2:59 AM REFINERY PROCESS ENGINEER) [facility] Lactate dehydrogenase (LDH) 158 100 - 250 Units/L Blood 10/19/2024 2:59 AM REFINERY PROCESS ENGINEER 10/19/2024 3:29 AM REFINERY PROCESS ENGINEER Narrative [facility] - 10/19/2024 4:02 AM REFINERY PROCESS ENGINEER Saturday and only. Morning draw. us Marcus Vergara MD LAB BLOOD ORDERABLES Final Resu lt Performing Organization Address [facility] [place] [address] * (ABNORMAL) Comprehensive metabolic panel (10/19/2024 2:59 AM REFINERY PROCESS ENGINEER) [facility] Sodium 138 135 - 145 mmol/L Potassium, pl 4.1 3.3 - 4.9 mmol/L [facility] Chloride 104 97 - 110 mmol/L [facility] CO2 28 22 - 32 mmol/L [facility] Anion gap 6 2 - 15 mmol/L [facility] BUN 12 6 - 25 mg/dL [facility] Creatinine 0.46(L) 0.60 - 1.10 mg/dL [facility] Glucose 126 70 - 199 mg/dL [facility] Comment: Interpretive Data Fasting glucose >/= 126 mg/dl is diagnostic for diabetes. Fasting is defined as no caloric intake for at least 8 hours. Fasting glucose between 100 mg/dl to 125 mg/dl is diagnostic of prediabetes. In a patient with classic symptoms of hyperglycemia or hyperglycemic crisis, a random glucose >/= 200 mg/dl is diagnostic for diabetes. In the absence of unequivocal hyperglycemia, results should be confirmed by repeat testing. The classification and Diagnosis of Diabetes Diabetes Care 2021; 46: S19-S40. Current interpretive data was last revised 2022. Calcium 7.3(L) 8.5 - 10.3 mg/dL [facility] Bilirubin, total 1.5(H) 0.1 - 1.2 mg/dL [facility] Protein, pl 5.7(L) 6.5 - 8.5 g/dL [facility] Albumin 2.2(L) 3.5 - 5.0 g/dL [facility] Alk phos 72 40 - 130 Units/L [facility] ALT 20 7 - 45 Units/L [facility] AST 13 10 - 45 Units/L [facility] Blood 10/19/2024 2:59 AM REFINERY PROCESS ENGINEER 10/19/2024 3:29 AM REFINERY PROCESS ENGINEER Narrative [facility] - 10/19/2024 4:02 AM REFINERY PROCESS ENGINEER Saturday and only. Morning draw. us Marcus Vergara MD LAB BLOOD ORDERABLES Final Resu lt [facility] [place] [address] * ECG 12 lead (10/18/2024 9:56 PM REFINERY PROCESS ENGINEER) Ventricular Rate EKG/Min 117 BPM [facility] Atrial Rate 117 BPM [facility] [place]-Interval (MSEC) 130 ms [facility] QRS-Interval (MSEC) 80 ms [facility] QT-Interval (MSEC) 316 ms [facility] QTc 440 ms [facility] P [place] 55 degrees [facility] R [place] 42 degrees [facility] T [place] 34 degrees [facility] Diagnosis Sinus tachycardia Otherwise normal ECG When compared with ECG of 09-OCT-2024 17:14, No significant change was found Confirmed by ASH SALGUERO M.D ([id number]) on 10/21/2024 11:11:06 AM [facility] 10/18/2024 9:56 PM REFINERY PROCESS ENGINEER 10/21/2024 11:11 AM REFINERY PROCESS ENGINEER us Marcus Vergara MD ECG ORDERABLES Final Result Performing Organization Address [facility] de Phone Number [facility] * POCT glucose (10/18/2024 9:01 PM REFINERY PROCESS ENGINEER) Glucose, POC 116 70 - 199 mg/dL Blood 10/18/2024 9:01 PM REFINERY PROCESS ENGINEER 10/18/2024 9:01 PM REFINERY PROCESS ENGINEER us Marcus Vergara MD LAB POCT ORDERABLES - DEVICE Fi nal Result Performing Organization Address [facility] [place] Phone Number [facility] Department [place] [address] * POCT glucose (10/18/2024 9:53 AM REFINERY PROCESS ENGINEER) Glucose, POC 118 70 - 199 mg/dL Blood 10/18/2024 9:53 AM REFINERY PROCESS ENGINEER 10/18/2024 9:53 AM REFINERY PROCESS ENGINEER us Marcus Vergara MD LAB POCT ORDERABLES - DEVICE Fi nal Result Performing Organization Address [facility] Phone Number [facility] Department [place] [address] * POCT glucose (10/18/2024 6:16 AM REFINERY PROCESS ENGINEER) Glucose, POC 116 70 - 199 mg/dL Blood 10/18/2024 6:16 AM REFINERY PROCESS ENGINEER 10/18/2024 6:16 AM REFINERY PROCESS ENGINEER us Marcus Vergara MD LAB POCT ORDERABLES - DEVICE Fi nal Result Performing Organization Address [facility] Co de Phone Number [facility] [place] [address] * (ABNORMAL) POCT glucose (10/18/2024 6:14 AM REFINERY PROCESS ENGINEER) Glucose, POC 415(H) 70 - 199 mg/dL Blood 10/18/2024 6:14 AM REFINERY PROCESS ENGINEER 10/18/2024 6:14 AM REFINERY PROCESS ENGINEER us Marcus Vergara MD LAB POCT ORDERABLES - DEVICE Fi nal Result Performing Organization Address [facility] de Phone Number [facility] Department [place] [address] * (ABNORMAL) Vancomycin level trough (10/18/2024 6:05 AM REFINERY PROCESS ENGINEER) Pathologist [facility] [place] Vancomycin trough 9.5(L) 10.0 - 20.0 mcg/mL Blood 10/18/2024 6:05 AM REFINERY PROCESS ENGINEER 10/18/2024 6:29 AM REFINERY PROCESS ENGINEER Result Roseanna Vergara MD LAB BLOOD ORDERABLES Final Resu lt Performing Organization Address [facility] Co de Phone Number [facility] [place] [address] * Transfuse RBC (10/18/2024 5:58 AM REFINERY PROCESS ENGINEER) Blood us Marcus Vergara MD BLOOD TRANSFUSION ORDERABLES Fi nal Result Performing Organization Address [facility] Co de Phone Number [facility] [place] [address] * Transfuse platelets (10/18/2024 3:38 AM REFINERY PROCESS ENGINEER) us Marcus Vergara MD BLOOD TRANSFUSION ORDERABLES Fi nal Result Performing Organization Address [facility] Co de Phone Number [facility] [place] [address] * Prepare RBC: 1 Units (10/18/2024 3:31 AM REFINERY PROCESS ENGINEER) [facility] Product code [id number] Unit Number [id number] [facility] Product Blood Type APOS [facility] Dispense Status PRESUMED TRANSFUSED [facility] Blood Venous blood specimen / Unknown 10/18/2024 3:31 AM REFINERY PROCESS ENGINEER 10/18/2024 3:30 AM REFINERY PROCESS ENGINEER Narrative [facility] - 10/18/2024 4:00 PM REFINERY PROCESS ENGINEER Are special requirements needed? (All products are leukoreduced and CMV- safe)- >Yes Date required:-[id number] Special Req 1:-Irradiated LRRBC # of [id number] Reasons:-BMT, Hgb <8 g/dL} us Marcus Vergara MD BLOOD BANK PRODUCT ORDERABLES F inal Result Performing Organization Address [facility] de Phone Number [facility] [place] [address] * (ABNORMAL) Immature platelet fraction (10/18/2024 2:38 AM REFINERY PROCESS ENGINEER) [facility] IPF 0.0(L) 1.6 - 10.1 % Blood 10/18/2024 2:38 AM REFINERY PROCESS ENGINEER 10/18/2024 3:05 AM REFINERY PROCESS ENGINEER us Marcus Vergara MD LAB BLOOD ORDERABLES Final Resu lt Performing Organization Address [facility] Co de Phone Number [facility] [place] [address] * eGFR (10/18/2024 2:38 AM REFINERY PROCESS ENGINEER) eGFR >90 >=60 mL/min/1. 73 m2 Comment: Interpretive Data Reference Interval Normal >/= 90 mL/min/1.73m2 Mildly decreased* 60 - 89 mL/min/1.73m2 Mildly to moderately decreased 45 - 59 mL/min/1.73m2 Moderately to severely decreased 30 - 44 mL/min/1.73m2 Severely decreased 15 - 29 mL/min/1.73m2 Kidney Failure < 15 mL/min/1.73m2 *Relative to young adult level Estimated glomerular filtration rate is determined by the 2020 CKD-EPI equation recommended by the National Kidney Foundation (A Unifying Approach to GFR Estimation: Recommendations of the NKF-ASK Task Force on Reassessing the Inclusion of Race in Diagnosing Kidney Disease, JASN 2020). The CKD-EPI equation should not be used for patients with unstable renal function and has not been validated in children and those over 70. Current interpretive data was last reviewed 2021. Blood 10/18/2024 2:38 AM REFINERY PROCESS ENGINEER 10/18/2024 3:02 AM REFINERY PROCESS ENGINEER us Marcus Vergara MD LAB BLOOD ORDERABLES Final Resu lt [facility] Department [place] [address] * (ABNORMAL) Manual Differential (10/18/2024 2:38 AM REFINERY PROCESS ENGINEER) Pathologist [facility] [place] Differential Manual Cells Counted 5 [facility] Neutrophil pct 0.0 % [facility] Comment: Interpretive Data Percent cell count reference ranges are not reported, since discordance with absolute values may lead to misinterpretation of CBC data. Current Interpretive Data was last revised on 2017. Lymphocyte pct 100.0 % [facility] Comment: Interpretive Data Percent cell count reference ranges are not reported, since discordance with absolute values may lead to misinterpretation of CBC data. Current Interpretive Data was last revised on 2017. RBC morphology Normal [facility] Platelet estimate Decreased( A) [facility] Blood 10/18/2024 2:38 AM REFINERY PROCESS ENGINEER 10/18/2024 3:01 AM REFINERY PROCESS ENGINEER Marucs Vergara MD LAB BLOOD ORDERABLES Edited Res ult - Final [facility] Department [place] [address] * (ABNORMAL) CBC without differential (10/18/2024 2:38 AM REFINERY PROCESS ENGINEER) WBC 0.0(C) 3.8 - 9.9 K/cumm Comment:Consistent with prev ious reported value Hgb 7.1(L) 11.9 - 15.5 g/dL [facility] Hct 21.3(L) 35.6 - 45.5 % [facility] Plt 3(C) 150 - 400 K/cumm [facility] Comment:Critical result call ed to and read back by ROMAN MARIA RN on 10 18 2024 at 0320 to Tony [facility]. MPV 9.4 9.1 - 12.3 fL [facility] RBC 2.37(L) 3.90 - 5.20 M/cumm [facility] MCV 89.9 81.3 - 96.4 fL [facility] MCH 30.0 27.1 - 33.3 pg [facility] MCHC 33.3 32.3 - 35.7 g/dL [facility] RDW CV 15.6(H) 11.1 - 14.9 % [facility] RDW SD 51.4(H) 35.7 - 48.1 fL [facility] NRBC abs 0.00 0.00 - 0.01 K/cumm [facility] Blood 10/18/2024 2:38 AM REFINERY PROCESS ENGINEER 10/18/2024 3:01 AM REFINERY PROCESS ENGINEER Marcus Vergara MD LAB BLOOD ORDERABLES Edited Res ult - Final Performing Organization Address City/[facility]/ZIP Co de Phone Number [facility] Department [place] [address] * (ABNORMAL) Phosphorus (10/18/2024 2:38 AM REFINERY PROCESS ENGINEER) [facility] Phosphorus, pl 1.6(L) 2.3 - 4.5 mg/dL Blood 10/18/2024 2:38 AM REFINERY PROCESS ENGINEER 10/18/2024 3:02 AM REFINERY PROCESS ENGINEER Marcus Vergara MD LAB BLOOD ORDERABLES Final Resu lt Performing Organization Address [facility]/[place] [address] * Magnesium (10/18/2024 2:38 AM REFINERY PROCESS ENGINEER) [facility] Magnesium 2.1 1.4 - 2.5 mg/dL Blood 10/18/2024 2:38 AM REFINERY PROCESS ENGINEER 10/18/2024 3:02 AM REFINERY PROCESS ENGINEER Marcus Vergara MD LAB BLOOD ORDERABLES Final Resu lt Performing Organization Address City/[facility]/[place] [address] * (ABNORMAL) Basic metabolic panel (10/18/2024 2:38 AM REFINERY PROCESS ENGINEER) [facility] Sodium 141 135 - 145 mmol/L Potassium, pl 3.6 3.3 - 4.9 mmol/L [facility] Chloride 105 97 - 110 mmol/L [facility] CO2 30 22 - 32 mmol/L [facility] Anion gap 6 2 - 15 mmol/L [facility] BUN 11 6 - 25 mg/dL [facility] Creatinine 0.46(L) 0.60 - 1.10 mg/dL [facility] Glucose 132 70 - 199 mg/dL [facility] Comment: Interpretive Data Fasting glucose >/= 126 mg/dl is diagnostic for diabetes. Fasting is defined as no caloric intake for at least 8 hours. Fasting glucose between 100 mg/dl to 125 mg/dl is diagnostic of prediabetes. In a patient with classic symptoms of hyperglycemia or hyperglycemic crisis, a random glucose >/= 200 mg/dl is diagnostic for diabetes. In the absence of unequivocal hyperglycemia, results should be confirmed by repeat testing. The classification and Diagnosis of Diabetes Diabetes Care 2021; 46: S19-S40. Current interpretive data was last revised 2022. Calcium 7.0(L) 8.5 - 10.3 mg/dL [facility] Blood 10/18/2024 2:38 AM REFINERY PROCESS ENGINEER 10/18/2024 3:02 AM REFINERY PROCESS ENGINEER Marcus Vergara MD LAB BLOOD ORDERABLES Final Resu lt Performing Organization Address [facility] Co de Phone Number [facility] Department [place] [address] * Prepare platelets: 1 Units (10/18/2024 2:31 AM REFINERY PROCESS ENGINEER) Pathologist [facility] [place] Product code [id number] Unit Number [id number] [facility] Product Blood Type APOS [facility] Dispense Status PRESUMED TRANSFUSED [facility] Blood Venous blood specimen / Unknown 10/18/2024 2:31 AM REFINERY PROCESS ENGINEER 10/18/2024 2:30 AM REFINERY PROCESS ENGINEER Narrative [facility] - 10/18/2024 4:00 PM REFINERY PROCESS ENGINEER Are special requirements needed? (all products are leukoreduced)->Yes Date required:-[id number] Special Req 1:-Irradiated PLT # of Units:-1-Units Reasons:-Stable, non-bleeding, plt < 10 K/cumm} Marcus Vergara MD BLOOD BANK PRODUCT ORDERABLES F inal Result Performing Organization Address [facility] Co de Phone Number [facility] Department [place] [address] * POCT glucose (10/17/2024 11:41 PM REFINERY PROCESS ENGINEER) Glucose, POC 136 70 - 199 mg/dL Blood 10/17/2024 11:4 1 PM REFINERY PROCESS ENGINEER 10/17/2024 11:41 PM REFINERY PROCESS ENGINEER us Marcus Vergara MD LAB POCT ORDERABLES - DEVICE Fi nal Result Performing Organization Address [facility] de Phone Number [facility] [place] [address] * POCT glucose (10/17/2024 5:56 PM REFINERY PROCESS ENGINEER) Glucose, POC 127 70 - 199 mg/dL Blood 10/17/2024 5:56 PM REFINERY PROCESS ENGINEER 10/17/2024 5:56 PM REFINERY PROCESS ENGINEER Result Roseanna Vergara MD LAB POCT ORDERABLES - DEVICE Fi nal Result Performing Organization Address [facility] de Phone Number [facility] [place] [address] * Transfuse platelets (10/17/2024 2:58 PM REFINERY PROCESS ENGINEER) Result Roseanna Vergara MD BLOOD TRANSFUSION ORDERABLES Fi nal Result Performing Organization Address [facility] Co de Phone Number [facility] [place] [address] * Transfuse platelets (10/17/2024 2:57 PM REFINERY PROCESS ENGINEER) us Marcus Vergara MD BLOOD TRANSFUSION ORDERABLES Fi nal Result Performing Organization Address [facility] de Phone Number [facility] [place] [address] * POCT glucose (10/17/2024 12:01 PM REFINERY PROCESS ENGINEER) Glucose, POC 160 70 - 199 mg/dL Blood 10/17/2024 12:0 1 PM REFINERY PROCESS ENGINEER 10/17/2024 12:01 PM REFINERY PROCESS ENGINEER us Marcus Vergara MD LAB POCT ORDERABLES - DEVICE Fi nal Result [facility] [place] [address] * (ABNORMAL) Urinalysis reflex to microscopic and culture Urine, clean voided (10/17/2024 10:07 AM REFINERY PROCESS ENGINEER) Color, ur Yellow Yellow Clarity, ur Cloudy(A) Clear [facility] Specific gravity, ur 1.020 1.003 - 1.030 [facility] pH, urine 7.0 [facility] Comment: Interpretive Data U rine pH is affected by diet, medications, systemic acid-base disturbances, and renal tubular function. pH may affect urinary stone formation. For example, urine pH below 6.0 may help reduce the tendency for calcium phosphate stones and pH greater than 6.0 may reduce the tendency for uric acid stone formation. Source: [facility] Current Interpretive Data was last revised on 2017 Protein, ur ql 1+(A) Negative [facility] Glucose, ur ql 2+(A) Negative [facility] Ketones, ur 1+(A) Negative [facility] Bilirubin, ur Negative Negative [facility] Blood, ur 1+(A) Negative [facility] Urobilinogen, ur 4.0(A) <2.0 mg/dL [facility] Nitrite, ur Negative Negative [facility] Leukocyte esterase, ur Negative Negative [facility] UA reflex comment Reflex to microscopic UA will be performed. [facility] Urine, clean voided 10/17/2024 10:07 AM REFINERY PROCESS ENGINEER 10/17/2024 10:36 AM REFINERY PROCESS ENGINEER us Chata Hardin MD LAB MICROBIOLOGY - GENERAL ORDER DAWSON Final Result Performing Organization Address City/[facility]/ZIP Co de Phone Number [facility] Department [place] [address] * (ABNORMAL) Urinalysis, microscopic only (10/17/2024 10:07 AM REFINERY PROCESS ENGINEER) WBC, ur 0-5 0 - 5 /HPF RBC, ur 3-5(A) 0 - 2 /HPF [facility] Epithelial cells, squamous, ur 1-5 0 - 5 /HPF [facility] Bacteria, ur 2+(A) [facility] Mucous, ur Present(A) [facility] Amorphous crystals, ur 1+(A) [facility] Culture Reflex Comment Reflex conditions for urine culture (WBC >10) not met. [facility] Urine, clean voided 10/17/2024 10:07 AM REFINERY PROCESS ENGINEER 10/17/2024 10:36 AM REFINERY PROCESS ENGINEER Chata Hardin MD LAB URINE ORDERABLES Final Resul t Performing Organization Address [facility] Co de Phone Number [facility] Department [place] [address] * Prepare platelets: 1 Units (10/17/2024 6:05 AM REFINERY PROCESS ENGINEER) Pathologist [facility] [place] Product code [id number] Unit Number [id number] [facility] Product Blood Type APOS [facility] Dispense Status PRESUMED TRANSFUSED [facility] Blood Venous blood specimen / Unknown 10/17/2024 6:05 AM REFINERY PROCESS ENGINEER 10/17/2024 6:04 AM REFINERY PROCESS ENGINEER Narrative [facility] - 10/18/2024 6:00 AM REFINERY PROCESS ENGINEER Are special requirements needed? (all products are leukoreduced)->Yes Date required:-[id number] Special Req 1:-Irradiated PLT # of Units:-1-Units Reasons:-Stable, non-bleeding, plt < 10 K/cumm} Marcus Vergara MD BLOOD BANK PRODUCT ORDERABLES F inal Result Performing Organization Address City/[facility]/ZIP Co de Phone Number [facility] Department [place] [address] * (ABNORMAL) Immature platelet fraction (10/17/2024 5:12 AM REFINERY PROCESS ENGINEER) IPF 1.2(L) 1.6 - 10.1 % Blood 10/17/2024 5:12 AM REFINERY PROCESS ENGINEER 10/17/2024 5:39 AM REFINERY PROCESS ENGINEER Marcus Vergara MD LAB BLOOD ORDERABLES Final Resu lt [facility] [place] [address] * eGFR (10/17/2024 5:12 AM REFINERY PROCESS ENGINEER) eGFR >90 >=60 mL/min/1. 73 m2 Comment: Interpretive Data Reference Interval Normal >/= 90 mL/min/1.73m2 Mildly decreased* 60 - 89 mL/min/1.73m2 Mildly to moderately decreased 45 - 59 mL/min/1.73m2 Moderately to severely decreased 30 - 44 mL/min/1.73m2 Severely decreased 15 - 29 mL/min/1.73m2 Kidney Failure < 15 mL/min/1.73m2 *Relative to young adult level Estimated glomerular filtration rate is determined by the 2020 CKD-EPI equation recommended by the National Kidney Foundation (A Unifying Approach to GFR Estimation: Recommendations of the NKF-ASK Task Force on Reassessing the Inclusion of Race in Diagnosing Kidney Disease, JASN 2020). The CKD-EPI equation should not be used for patients with unstable renal function and has not been validated in children and those over 70. Current interpretive data was last reviewed 2021. Blood 10/17/2024 5:12 AM REFINERY PROCESS ENGINEER 10/17/2024 5:34 AM REFINERY PROCESS ENGINEER us Marcus Vergara MD LAB BLOOD ORDERABLES Final Resu lt Performing Organization Address City/[facility]/ZIP Co de Phone Number [facility] [place] [address] * (ABNORMAL) Manual Differential (10/17/2024 5:12 AM REFINERY PROCESS ENGINEER) Pathologist [facility] [place] Differential Manual Cells Counted 3 [facility] Neutrophil pct 33.3 % [facility] Comment: Interpretive Data Percent cell count reference ranges are not reported, since discordance with absolute values may lead to misinterpretation of CBC data. Current Interpretive Data was last revised on 2017. Lymphocyte pct 66.7 % [facility] Comment: Interpretive Data Percent cell count reference ranges are not reported, since discordance with absolute values may lead to misinterpretation of CBC data. Current Interpretive Data was last revised on 2017. RBC morphology Normal [facility] Platelet estimate Decreased( A) [facility] Blood 10/17/2024 5:12 AM REFINERY PROCESS ENGINEER 10/17/2024 5:34 AM REFINERY PROCESS ENGINEER us Marcus Vergara MD LAB BLOOD ORDERABLES Edited Res ult - Final [facility] Department [place] [address] * (ABNORMAL) CBC without differential (10/17/2024 5:12 AM REFINERY PROCESS ENGINEER) WBC 0.0(C) 3.8 - 9.9 K/cumm Comment:Consistent with prev ious reported value Hgb 9.0(L) 11.9 - 15.5 g/dL [facility] Hct 26.8(L) 35.6 - 45.5 % [facility] Plt 3(C) 150 - 400 K/cumm [facility] Comment:Critical result call ed to and read back by ROMAN MARIA RN on 10 17 2024 at 0601 to VIVIAN PLEITEZ. MPV Not Measured 9.1 - 12.3 fL [facility] RBC 3.01(L) 3.90 - 5.20 M/cumm [facility] MCV 89.0 81.3 - 96.4 fL [facility] MCH 29.9 27.1 - 33.3 pg [facility] MCHC 33.6 32.3 - 35.7 g/dL [facility] RDW CV 15.6(H) 11.1 - 14.9 % [facility] RDW SD 51.2(H) 35.7 - 48.1 fL [facility] NRBC abs 0.00 0.00 - 0.01 K/cumm [facility] Blood 10/17/2024 5:12 AM REFINERY PROCESS ENGINEER 10/17/2024 5:34 AM REFINERY PROCESS ENGINEER Marcus Vergara MD LAB BLOOD ORDERABLES Final Resu lt Performing Organization Address [facility] de Phone Number [facility] Department [place] [address] * Triglycerides (10/17/2024 5:12 AM REFINERY PROCESS ENGINEER) Triglycerides 98 <=149 mg/dL Comment: Interpretive Data Ages < or = 9 years Acceptable: <75 mg/dL Borderline high: 75-99 mg/dL High: >or= 100 mg/dL Ages 10 to 20 years Acceptable: <90 mg/dL Borderline high: 90-129 mg/dL High: >or= 130 mg/dL Ages > or = 20 years Desirable: <150 mg/dL Borderline high: 150-199 mg/dL High: 200-499 mg/dL Very high: >or= 499 mg/dL Literature References: 1. Expert Panel on Integrated Guidelines for Cardiovascular Health and Risk Reduction in Children and Adolescents. Pediatrics 2011;128:S213 2. NCEP Expert Panel. Circulation 2004;110:227 Current Interpretive Data was last revised on 2018. Blood 10/17/2024 5:12 AM REFINERY PROCESS ENGINEER 10/17/2024 5:34 AM REFINERY PROCESS ENGINEER Isabel Trevizo MD LAB BLOOD ORDERABLES Fin al Result Performing Organization Address [facility] de Phone Number [facility] Department [place] [address] * (ABNORMAL) Phosphorus (10/17/2024 5:12 AM REFINERY PROCESS ENGINEER) Phosphorus, pl 1.2(L) 2.3 - 4.5 mg/dL Blood 10/17/2024 5:12 AM REFINERY PROCESS ENGINEER 10/17/2024 5:34 AM REFINERY PROCESS ENGINEER us Marcus Vergara MD LAB BLOOD ORDERABLES Final Resu lt Performing Organization Address [facility]/ZIP Co de Phone Number [facility] [place] [address] * Magnesium (10/17/2024 5:12 AM REFINERY PROCESS ENGINEER) [facility] Magnesium 1.8 1.4 - 2.5 mg/dL Blood 10/17/2024 5:12 AM REFINERY PROCESS ENGINEER 10/17/2024 5:34 AM REFINERY PROCESS ENGINEER us Marcus Vergara MD LAB BLOOD ORDERABLES Final Resu lt Performing Organization Address [facility] Co de Phone Number [facility] [place] [address] * Vancomycin level trough To be drawn 30 min prior to 4th dose of Vanc on 215 AM (10/17/2024 5:12 AMCST) [facility] Vancomycin trough 12.2 10.0 - 20.0 mcg/mL Comment:Reviewed Blood 10/17/2024 5:12 AM REFINERY PROCESS ENGINEER 10/17/2024 5:34 AM REFINERY PROCESS ENGINEER Narrative [facility] - 10/17/2024 6:02 AM REFINERY PROCESS ENGINEER To be drawn 30 min prior to 4th dose of Vanc on 215 AM us Marcus Vergara MD LAB BLOOD ORDERABLES Final Resu lt Performing Organization Address [facility] Co de Phone Number [facility] Department [place] [address] * (ABNORMAL) Basic metabolic panel (10/17/2024 5:12 AM REFINERY PROCESS ENGINEER) [facility] Sodium 138 135 - 145 mmol/L Potassium, pl 3.2(L) 3.3 - 4.9 mmol/L [facility] Chloride 100 97 - 110 mmol/L [facility] CO2 31 22 - 32 mmol/L [facility] Anion gap 7 2 - 15 mmol/L [facility] BUN 10 6 - 25 mg/dL [facility] Creatinine 0.47(L) 0.60 - 1.10 mg/dL [facility] Glucose 149 70 - 199 mg/dL [facility] Comment: Interpretive Data Fasting glucose >/= 126 mg/dl is diagnostic for diabetes. Fasting is defined as no caloric intake for at least 8 hours. Fasting glucose between 100 mg/dl to 125 mg/dl is diagnostic of prediabetes. In a patient with classic symptoms of hyperglycemia or hyperglycemic crisis, a random glucose >/= 200 mg/dl is diagnostic for diabetes. In the absence of unequivocal hyperglycemia, results should be confirmed by repeat testing. The classification and Diagnosis of Diabetes Diabetes Care 2021; 46: S19-S40. Current interpretive data was last revised 2022. Calcium 7.6(L) 8.5 - 10.3 mg/dL [facility] Blood 10/17/2024 5:12 AM REFINERY PROCESS ENGINEER 10/17/2024 5:34 AM REFINERY PROCESS ENGINEER Marcus Vergara MD LAB BLOOD ORDERABLES Final Resu lt Performing Organization Address City/[facility]/ZIP Co de Phone Number [facility] Department [place] [address] * POCT glucose (10/17/2024 12:10 AM REFINERY PROCESS ENGINEER) Glucose, POC 115 70 - 199 mg/dL Blood 10/17/2024 12:1 0 AM REFINERY PROCESS ENGINEER 10/17/2024 12:10 AM REFINERY PROCESS ENGINEER Marcus Vergara MD LAB POCT ORDERABLES - DEVICE Fi nal Result Performing Organization Address City/[facility]/ZIP Co de Phone Number [facility] Department [place] [address] * XR Chest 1 View (10/16/2024 8:52 PM REFINERY PROCESS ENGINEER) Anatomical Region Laterality Modality Body, Chest N/A Computed Radiogr aphy 10/17/2024 8:39 AM REFINERY PROCESS ENGINEER Impressions 10/17/2024 12:04 PM REFINERY PROCESS ENGINEER The current study is compared with the prior radiograph dated 10/02/2024, CT from 2024 Right internal jugular central venous catheter terminates at the superior cavoatrial junction. Partial left lower lobe collapse with small left pleural effusion. No right pleural effusion. No pneumothorax. Cardiac and mediastinal contours are stable. Dictated by: Goldy Sanches MD The radiology attending physician has personally reviewed this study, and had reviewed and/or edited this written report and agrees with it. Electronically signed by: Olvin Dawson M.D. Narrative 10/17/2024 12:04 PM REFINERY PROCESS ENGINEER EXAMINATION: 1 view chest radiograph Procedure Note Olvin Dawson MD - 10/17/2024 EXAMINATION: 1 view chest radiograph IMPRESSION: The current study is compared with the prior radiograph dated 10/02/2024, CT from 2024 Right internal jugular central venous catheter terminates at the superior cavoatrial junction. Partial left lower lobe collapse with small left pleural effusion. No right pleural effusion. No pneumothorax. Cardiac and mediastinal contours are stable. Dictated by: Goldy Sanches MD The radiology attending physician has personally reviewed this study, and had reviewed and/or edited this written report and agrees with it. Electronically signed by: Olvin Dawson M.D. Chata Hardin MD IMG XR PROCEDURES Final Result * Blood culture Blood Peripheral (10/16/2024 8:30 PM REFINERY PROCESS ENGINEER) Report Final Report: No growth Blood (Peripheral) 10/16/2024 8:30 PM REFINERY PROCESS ENGINEER 10/16/2024 8:44 PM REFINERY PROCESS ENGINEER Narrative [facility] - 10/21/2024 7:01 AM REFINERY PROCESS ENGINEER Collection->Peripheral 1. Blood cultures are incubated for 4 days on a continuously monitored blood culture system. The first report of a negative culture is issued within 24 hours of receipt of the specimen in the laboratory. 2. Positive culture results are reported as soon as they are detected. 3. The most important factor for detection of microbes in the setting of bloodstream infection is the volume of blood submitted for culture. Failure to collect an optimal blood volume can result in false negative blood cultures. 4. For pediatric patients, the recommended blood volume to collect follows a weight based strategy. See the electronic test catalog for collection instructions. 5. For positive blood cultures, a rapid molecular test may be performed for organism identification using the rosemary ePlex blood culture identification panel for gram positive (BCID-GP) and gram negative (BCID-GN) organisms. This nucleic acid amplification test detects microbial DNA in positive blood culture broth. This assay has been cleared by the [place] Food and Drug Administration and its performance characteristics have been verified by the [facility] Microbiology Laboratory. For questions about this culture, contact the Microbiology Laboratory at [phone]. Interpretive data was last revised on 24. us Marcus Vergara MD LAB MICROBIOLOGY - [facility] Final Result [facility] GARCÍA [facility] Department [place] [address] * Blood culture Blood Peripheral (10/16/2024 8:30 PM REFINERY PROCESS ENGINEER) Report Final Report: No growth Blood (Peripheral) 10/16/2024 8:30 PM REFINERY PROCESS ENGINEER 10/16/2024 8:44 PM REFINERY PROCESS ENGINEER [facility] - 10/21/2024 7:01 AM REFINERY PROCESS ENGINEER Collection->Peripheral 1. Blood cultures are incubated for 4 days on a continuously monitored blood culture system. The first report of a negative culture is issued within 24 hours of receipt of the specimen in the laboratory. 2. Positive culture results are reported as soon as they are detected. 3. The most important factor for detection of microbes in the setting of bloodstream infection is the volume of blood submitted for culture. Failure to collect an optimal blood volume can result in false negative blood cultures. 4. For pediatric patients, the recommended blood volume to collect follows a weight based strategy. See the electronic test catalog for collection instructions. 5. For positive blood cultures, a rapid molecular test may be performed for organism identification using the rosemary ePlex blood culture identification panel for gram positive (BCID-GP) and gram negative (BCID-GN) organisms. This nucleic acid amplification test detects microbial DNA in positive blood culture broth. This assay has been cleared by the [place] Food and Drug Administration and its performance characteristics have been verified by the [facility] Microbiology Laboratory. For questions about this culture, contact the Microbiology Laboratory at [phone]. Interpretive data was last revised on 24. us Marcus Vergara MD LAB MICROBIOLOGY - GENERAL ASHLEYGeovanni GONZALEZ Final Result Performing Organization Address City/[facility]/ZIP Co de Phone Number [facility] Department [place] [address] * MRSA Only (Staphylococcus aureus) Culture Nasal (10/16/2024 8:26 PM REFINERY PROCESS ENGINEER) Report Final Report: Negative Nasal 10/16/2024 8:26 PM REFINERY PROCESS ENGINEER 10/16/2024 8:42 PM REFINERY PROCESS ENGINEER Narrative [facility] - 10/18/2024 6:53 AM REFINERY PROCESS ENGINEER Testing performed by [facility] Microbiology Laboratory ([phone]). us Chata Hardin MD LAB MICROBIOLOGY - GENERAL ORDER DAWSON Final Result Performing Organization Address City/[facility]/ZIP Co de Phone Number [facility] Department [place] [address] * Respiratory pathogen panel Nasopharyngeal (10/16/2024 8:26 PM REFINERY PROCESS ENGINEER) Influenza A RNA Not Detected Not Detected Influenza B RNA Not Detected Not Detected [facility] RSV RNA Not Detected Not Detected [facility] COVID-19 RNA Not Detected Not Detected [facility] Coronavirus 229E RNA Not Detected Not Detected [facility] Coronavirus HKU1 RNA Not Detected Not Detected [facility] Coronavirus NL63 RNA Not Detected Not Detected [facility] Coronavirus OC43 RNA Not Detected Not Detected [facility] Adenovirus DNA Not Detected Not Detected [facility] Metapneumovirus RNA Not Detected Not Detected [facility] Rhinovirus/Enterov irus RNA Not Detected Not Detected [facility] Parainfluenza 1 RNA Not Detected Not Detected [facility] Parainfluenza 2 RNA Not Detected Not Detected [facility] Parainfluenza 3 RNA Not Detected Not Detected [facility] Parainfluenza 4 RNA Not Detected Not Detected [facility] B. pertussis DNA Not Detected Not Detected [facility] B. parapertussis DNA Not Detected Not Detected [facility] C. pneumoniae DNA Not Detected Not Detected [facility] M. pneumoniae DNA Not Detected Not Detected [facility] Nasopharyngeal 10/16/2024 8: 26 PM REFINERY PROCESS ENGINEER 10/16/2024 8:41 PM REFINERY PROCESS ENGINEER Narrative [facility] - 10/16/2024 9:39 PM REFINERY PROCESS ENGINEER Is the Patient experiencing symptoms consistent with COVID?->Yes Surveillance testing for transplant patient?->No Interpretive Data The Jimmy [employer] FilmArray Respiratory Panel (RP2.1) assay is a multiplexed real-time PCR based nucleic acid test capable of simultaneous qualitative detection and identification of multiple respiratory viral and bacterial nucleic acids, including SARS Coronavirus 2 (the causative agent of COVID-19). The following bacteria, viruses and virus subtypes can be identified using the FilmArray RP2.1 assay: Bordetella pertussis, Bordetella parapertussis, Chlamydia pneumoniae, Mycoplasma pneumoniae, Adenovirus, SARS Coronavirus 2, seasonal coronaviruses (Coronavirus HKU1, Coronavirus NL63, Coronavirus 229E, and Coronavirus OC43), Influenza A, Influenza A subtype H1, Influenza A subtype H3, Influenza A subtype 2009 H1, Influenza B, Metapneumovirus, Parainfluenza 1, Parainfluenza 2, Parainfluenza 3, Parainfluenza 4, RSV, Rhinovirus/Enterovirus. Due to the genetic similarity between human Rhinovirus and Enterovirus, the FilmArray RP2.1 assay cannot reliably differentiate them. Coronavirus OC43 may cross-react with some isolates of Coronavirus HKU1. A dual positive result may be due to cross-reactivity or may indicate a co- infection. The detection and identification of specific viral and bacterial nucleic acids from individuals exhibiting signs and symptoms of a respiratory infection aids in the diagnosis of respiratory infection if used in conjunction with other clinical and epidemiological information. The results of this test should not be used as the sole basis for diagnosis, treatment, or other management decisions. Negative results in the setting of a respiratory illness may be due to infection with pathogens that are not detected by this test. Positive results do not rule out infection/co-infection with other organisms. The agent(s) detected by the FilmArray RP2.1 may not be the definite cause of disease. Additional testing (lab, imaging, etc.) may be necessary when evaluating a patient with possible respiratory tract infection. The FilmArray RP2.1 assay has FDA clearance for testing of FOOD WRITER swabs. The performance of additional specimen types has been assessed by the performing laboratory. The performance characteristics of this assay have been determined by [facility] Molecular Infectious Disease Laboratory. Current interpretive data was last revised on 22. Chata Hardin MD LAB MICROBIOLOGY - GENERAL ORDER DAWSON Final Result Performing Organization Address City/[facility]/ZIP Co de Phone Number [facility] Department [place] [address] * POCT glucose (10/16/2024 5:16 PM REFINERY PROCESS ENGINEER) Glucose, POC 78 70 - 199 mg/dL Blood 10/16/2024 5:16 PM REFINERY PROCESS ENGINEER 10/16/2024 5:16 PM REFINERY PROCESS ENGINEER Marcus Vergara MD LAB POCT ORDERABLES - DEVICE Fi nal Result Performing Organization Address City/[facility] Co de Phone Number [facility] Department [place] [address] * Surgical pathology (10/16/2024 1:57 PM REFINERY PROCESS ENGINEER) Biopsy (Bone Marrow Biopsy) 10/16/2024 1:57 PM REFINERY PROCESS ENGINEER 10/16/2024 2:26 PM REFINERY PROCESS ENGINEER Narrative PATHOLOGY [facility] - 10/19/2024 5:18 PM REFINERY PROCESS ENGINEER EPIC results best viewed via link to PDF [facility] Laboratory [place] [address] Note to Patients: This report may contain a detailed description of human tissue sent by a health care provider to the laboratory for pathologic evaluation. The content of this report is essential for diagnosis and may provide important critical findings. This information may be unfamiliar to patients to review without a medical professional present. It is advised that the patient review this report in the presence of a health care provider who can answer questions and explain the details. SURGICAL PATHOLOGY REPORT FINAL WITH ADDENDUM Patient Name: RENU DURON Gender: F : 1965 (Age: 59) Address: [address] [place], [place] [id number] Hospital #: [id number] Taken:10/16/2024 Received:10/16/2024 Reported: 10/19/2024 Patient Type: [facility] Inpatient Service: BoneMarTranspl Location: [place] [address] Physician(s): SANDY Royal M.D. Diagnosis: Bone marrow, right posterior iliac crest, core biopsy, clot, and aspirate: - Markedly hypocellular marrow with chemoablation changes - No increased blasts /10/19/2024 12:19 By this signature, I attest that the above diagnosis is based upon my personal examination of the slides(and/or other material indicated in the diagnosis). Sammy Baer M.D. Report Electronically Reviewed and Signed Out By Sammy Baer M.D. 10/19/2024 17:18:40 Diagnosis Comment For details on the peripheral blood smear (if submitted), bone marrow aspirate, and core biopsy, please see the attached synoptic report. If applicable, correlation with concurrent flow cytometry (Addenda/Procedures below), cytogenetics/FISH, and molecular studies is suggested for full evaluation. Microscopic Description and Comment: Microscopic examination substantiates the above cited diagnosis. History: The patient is a 59-year-old woman with a history of acute myeloid leukemia with monocytic differentiation. She is positive for FLT3-ITD and NPM. Currently her Day +15 BMBx under evaluation. Operative procedure: Bone marrow biopsy. Specimen(s) Received: A: Bone marrow biopsy, right posterior iliac crest B: Bone Marrow Clot - BJ C: Bone marrow, right aspirate for flow cytometry Gross Description: Received in two formalin jars labeled with the patient's identifiers. A. Received in formalin, labeled SHAE core and consists of a single red and davidson cores of bone with attached hemorrhagic material measuring 1.0 cm in length by 0.3 cm in diameter. Labeled A1. EDTA decalcification.. Jar 0. B. Received in formalin, labeled SHAE clot and consists of a 1.8 x 1.7 x 0.4 cm fragment of hemorrhagic material. Labeled B1. Jar 0. sxst/10/16/2024 15:09 PA(s): Halina [place] CBC: Date: 10/16/2024 WBCs: 0.0x10^3/mcl Hemoglobin: 9.3g/dl Hematocrit: 27.0% Platelets: 7x10^3/mcl Mean corpuscular volume (MCV): 88.8fl Red cell distribution width (RDW-CV): 15.7% Neutrophils: 0.0% Lymphocytes: 100.0% Peripheral blood smear (Suárez-Giemsa): The peripheral blood morphology reflects the CBC values. Bone marrow aspirate smear (Suárez-Giemsa stain): Quality: Dilute Spicules: None Marrow cellularity: Not evaluable Myeloid maturation: Too few cells to evaluate Erythroid maturation: Too few cells to evaluate Myeloid/Erythroid Ratio: Too few cells to evaluate Megakaryocyte number: Unable to evaluate Megakaryocytic maturation: Unable to evaluate Lymphocytes: Too few cells to evaluate Plasma cells: Too few cells to evaluate Iron: Aspicular aspirate insufficient for interpretation/non-contributory Differential count: Too few cells to count Bone marrow core biopsy (decalcified, H&E and Leder stains): Right, iliac crest Cellularity: Not evaluable Myeloid maturation: Too few cells to evaluate Erythroid maturation: Too few cells to evaluate The Leder stain shows that the Myeloid/Erythroid Ratio is: Too few cells to evaluate Megakaryocyte number: Unable to evaluate Megakaryocytic maturation: Unable to evaluate The Leder stain is used to assess for lymphoid aggregates: Too few cells to evaluate Plasma cells: Too few cells to evaluate Reticulin and Trichrome stains show: Unable to evaluate CLOT SECTION: The bone marrow clot section including Leder and H&E stains are: Consist of clotted blood with minimal evaluable marrow By this signature, I attest that the above diagnosis is based upon my personal examination of the slides(and/or other material). Addenda/Procedures Flow Cytometry Ordered:10/16/2024Status:Signed OutFlow Cytometry Complete:10/19/2024y:Sammy Baer M.D.Flow Cytometry Signed Out: 10/19/2024 Diagnosis Bone marrow, right posterior iliac crest, aspirate for flow cytometry - No increased blasts identified - No aberrant T-cell population identified - See comment Comment Specimen Quality: Paucicellular and Hemodilute Flow cytometry identifies no significant increase in myeloid blasts. Correlation with concurrent bone marrow biopsy and aspirate findings is needed for full evaluation. A malignant process cannot be excluded solely on the basis of this assay. Flow cytometric analysis shows that CD45 dim-gated events are 14-15% of overall cellularity of the specimen comprised predominantly of hematogones expressing CD19 and CD10 (12-13% of cellular events) with a small subset of this population positive for CD34 and CD117 (1-2% of cellular events). WM41-orsdlaja blasts are not increased. Lymphocyte-gated events account for 72% of the overall cellularity and include a population of CD3-positive T-cells, comprising 73% of lymphocytes, showing no significant loss of cheng T-cell antigens and have an increased CD4 to CD8 ratio (9:1). There is a small population of AN71-pmmcwzfl cells, 7% of lymphocytes, consistent with natural killer cells. A Suárez-Giemsa stained cytospin from the flow cytometry specimen was examined for internal quality process auditor purposes. Flow cytometry was performed using antibodies to the following cellular antigens: CD45, CD34, CD2, CD3, CD4, CD5, CD7, CD8, CD56, TCR-GD, CD16, CD10 , CD13, CD14, CD64, HLR-DR, CD11b, CD15, CD123, CD117, CD33, CD38, CD19. Total antigens analyzed: 23 (juac 10/19/24) By this signature, I attest that the above diagnosis is based upon my personal examination of the slides(and/or other material indicated in the diagnosis). Sammy Baer M.D.Report Electronically Reviewed and Signed Out By Sammy Baer M.D. 10/19/2024 16:26:53 The performance characteristics of some immunohistochemical stains, fluorescence in-situ hybridization tests and immunophenotyping by flow cytometry cited in this report (if any) were determined by the Surgical Pathology and Flow Cytometry Departments at [facility] as part of an ongoing quality coordinator program and in compliance with federally mandated regulations drawn from the Clinical Laboratory Improvement Act of 1988 (CLIA '88). Some of these tests rely on the use of analyte specific reagents and are subject to specific labeling requirements by the [place] Food and Drug Administration. Such diagnostic tests may only be performed in a facility that is certified by the Department of Health and Human Services as a high complexity laboratory under CLIA '88. The FDA has determined that such clearance or approval is not necessary. This test is used for clinical purposes. It should not be regarded as investigational or for research. Nevertheless, federal rules concerning the medical use of analyte specific reagents require that the following disclaimer be attached to the report: This test was developed and its performance characteristics determined by the Surgical Pathology and Flow Cytometry Departments of [facility]. It has not been cleared or approved by the [place]. S. Food and Drug Administration. IMAGES AND SCANNED DOCUMENTS, IF INCLUDED, ONLY VIEWABLE IN PDF VERSION OF REPORT Brooke Desai NP LAB PATHOLOGY ORDERABLES Rosalva l Result Performing Organization Address City/[facility] Co de Phone Number PATHOLOGY [facility] 3rd Floor [place], [place] [phone] * Transfuse platelets (10/16/2024 12:00 PM REFINERY PROCESS ENGINEER) Marcus Vergara MD BLOOD TRANSFUSION ORDERABLES Fi nal Result Performing Organization Address [facility] Co de Phone Number [facility] Department [place] [address] * Flow Leukemia/Lymphoma Bone marrow (10/16/2024 11:50 AM REFINERY PROCESS ENGINEER) Suárez Stain Test Completed Leukemia/Lymp emily Result See separate Surgical Pathology report. [facility] Bone marrow 10/16/2024 11:5 0 AM REFINERY PROCESS ENGINEER 10/16/2024 3:05 PM REFINERY PROCESS ENGINEER Brooke Desai FOOD WRITER LAB PATHOLOGY ORDERABLES Rosalva l Result Performing Organization Address [facility] Co de Phone Number [facility] Department [place] [address] * Prepare platelets: 1 Units (10/16/2024 9:56 AM REFINERY PROCESS ENGINEER) [facility] Product code [id number] Unit Number [id number] [facility] Product Blood Type APOS [facility] Dispense Status PRESUMED TRANSFUSED [facility] Blood Venous blood specimen / Unknown 10/16/2024 9:56 AM REFINERY PROCESS ENGINEER 10/16/2024 9:56 AM REFINERY PROCESS ENGINEER Narrative [facility] - 10/17/2024 12:56 AM REFINERY PROCESS ENGINEER Are special requirements needed? (all products are leukoreduced)->Yes Date required:-[id number] Special Req 1:-Irradiated PLT # of Units:-1-Units Reasons:-Stable, non-bleeding, plt < 10 K/cumm} us Marcus Vergara MD BLOOD BANK PRODUCT ORDERABLES F inal Result Performing Organization Address City/[facility] Co de Phone Number [facility] Department [place] [address] * (ABNORMAL) Immature platelet fraction (10/16/2024 4:23 AM REFINERY PROCESS ENGINEER) [facility] IPF 0.7(L) 1.6 - 10.1 % Blood 10/16/2024 4:23 AM REFINERY PROCESS ENGINEER 10/16/2024 5:10 AM REFINERY PROCESS ENGINEER Marcus Vergara MD LAB BLOOD ORDERABLES Final Resu lt Performing Organization Address City/[facility] Co de Phone Number [facility] Department [place] [address] * eGFR (10/16/2024 4:23 AM REFINERY PROCESS ENGINEER) [facility] eGFR >90 >=60 mL/min/1. 73 m2 Comment: Interpretive Data Reference Interval Normal >/= 90 mL/min/1.73m2 Mildly decreased* 60 - 89 mL/min/1.73m2 Mildly to moderately decreased 45 - 59 mL/min/1.73m2 Moderately to severely decreased 30 - 44 mL/min/1.73m2 Severely decreased 15 - 29 mL/min/1.73m2 Kidney Failure < 15 mL/min/1.73m2 *Relative to young adult level Estimated glomerular filtration rate is determined by the 2020 CKD-EPI equation recommended by the National Kidney Foundation (A Unifying Approach to GFR Estimation: Recommendations of the NKF-ASK Task Force on Reassessing the Inclusion of Race in Diagnosing Kidney Disease, JASN 202). The CKD-EPI equation should not be used for patients with unstable renal function and has not been validated in children and those over 70. Current interpretive data was last reviewed 2021. Blood 10/16/2024 4:23 AM REFINERY PROCESS ENGINEER 10/16/2024 5:05 AM REFINERY PROCESS ENGINEER us Marcus Vergara MD LAB BLOOD ORDERABLES Final Resu lt Performing Organization Address [facility] Co de Phone Number DAVID GARCÍA One [facility] Department [place] [address] * (ABNORMAL) Manual Differential (10/16/2024 4:23 AM REFINERY PROCESS ENGINEER) Differential Manual Cells Counted 4 [facility] Neutrophil pct 0.0 % [facility] Comment: Interpretive Data Percent cell count reference ranges are not reported, since discordance with absolute values may lead to misinterpretation of CBC data. Current Interpretive Data was last revised on 2017. Lymphocyte pct 100.0 % [facility] Comment: Interpretive Data Percent cell count reference ranges are not reported, since discordance with absolute values may lead to misinterpretation of CBC data. Current Interpretive Data was last revised on 2017. RBC morphology Present(A) [facility] Anisocytosis Slight(A) [facility] Macrocytes 3-7/HPF(A) [facility] Platelet estimate Decreased( A) [facility] Blood 10/16/2024 4:23 AM REFINERY PROCESS ENGINEER 10/16/2024 5:05 AM REFINERY PROCESS ENGINEER us Marcus Vergara MD LAB BLOOD ORDERABLES Final Resu lt [facility] Department [place] [address] * (ABNORMAL) CBC without differential (10/16/2024 4:23 AM REFINERY PROCESS ENGINEER) WBC 0.0(C) 3.8 - 9.9 K/cumm Comment:Consistent with prev ious reported value Hgb 9.3(L) 11.9 - 15.5 g/dL [facility] Hct 27.0(L) 35.6 - 45.5 % [facility] Plt 7(C) 150 - 400 K/cumm [facility] Comment: Platelet count confirmed by additional testing. Critical platelet count threshold determined by patient location: Outpatient:<50 K-cumm , Inpatient:<20 K-cumm , BMT service:<10 K-cumm roman maria rn. Critical result called to and read back by ROMAN MARIA RN on 10 16 2024 at 0525 to Kristin Matute. MPV 12.7(H) 9.1 - 12.3 fL [facility] RBC 3.04(L) 3.90 - 5.20 M/cumm [facility] MCV 88.8 81.3 - 96.4 fL [facility] MCH 30.6 27.1 - 33.3 pg [facility] MCHC 34.4 32.3 - 35.7 g/dL [facility] RDW CV 15.7(H) 11.1 - 14.9 % [facility] RDW SD 51.0(H) 35.7 - 48.1 fL [facility] NRBC abs 0.00 0.00 - 0.01 K/cumm [facility] Blood 10/16/2024 4:23 AM REFINERY PROCESS ENGINEER 10/16/2024 5:05 AM REFINERY PROCESS ENGINEER us Marcus Vergara MD LAB BLOOD ORDERABLES Final Resu lt [facility] K[facility]en [facility] Department [place] [address] * (ABNORMAL) Phosphorus (10/16/2024 4:23 AM REFINERY PROCESS ENGINEER) Pathologist [facility] [place] Phosphorus, pl 1.5(L) 2.3 - 4.5 mg/dL Blood 10/16/2024 4:23 AM REFINERY PROCESS ENGINEER 10/16/2024 5:05 AM REFINERY PROCESS ENGINEER us Marcus Vergara MD LAB BLOOD ORDERABLES Final Resu lt Performing Organization Address [facility] Co de Phone Number [facility] Department [place] [address] * Magnesium (10/16/2024 4:23 AM REFINERY PROCESS ENGINEER) [facility] Magnesium 1.7 1.4 - 2.5 mg/dL Blood 10/16/2024 4:23 AM REFINERY PROCESS ENGINEER 10/16/2024 5:05 AM REFINERY PROCESS ENGINEER Marcus Vergara MD LAB BLOOD ORDERABLES Final Resu lt Performing Organization Address [facility] de Phone Number [facility] [place] [address] * (ABNORMAL) Basic metabolic panel (10/16/2024 4:23 AM REFINERY PROCESS ENGINEER) [facility] Sodium 135 135 - 145 mmol/L Potassium, pl 3.2(L) 3.3 - 4.9 mmol/L [facility] Chloride 96(L) 97 - 110 mmol/L [facility] CO2 32 22 - 32 mmol/L [facility] Anion gap 7 2 - 15 mmol/L [facility] BUN 8 6 - 25 mg/dL [facility] Creatinine 0.48(L) 0.60 - 1.10 mg/dL [facility] Glucose 98 70 - 199 mg/dL [facility] Comment: Interpretive Data Fasting glucose >/= 126 mg/dl is diagnostic for diabetes. Fasting is defined as no caloric intake for at least 8 hours. Fasting glucose between 100 mg/dl to 125 mg/dl is diagnostic of prediabetes. In a patient with classic symptoms of hyperglycemia or hyperglycemic crisis, a random glucose >/= 200 mg/dl is diagnostic for diabetes. In the absence of unequivocal hyperglycemia, results should be confirmed by repeat testing. The classification and Diagnosis of Diabetes Diabetes Care 2021; 46: S19-S40. Current interpretive data was last revised 2022. Calcium 7.5(L) 8.5 - 10.3 mg/dL [facility] Blood 10/16/2024 4:23 AM REFINERY PROCESS ENGINEER 10/16/2024 5:05 AM REFINERY PROCESS ENGINEER Marcus Vergara MD LAB BLOOD ORDERABLES Final Resu lt Performing Organization Address [facility] Co de Phone Number [facility] [place] [address] * (ABNORMAL) Vancomycin level trough Draw trough 30 minutes prior to 4th dose. (10/15/2024 9:26 PM REFINERY PROCESS ENGINEER) [facility] Vancomycin trough 8.7(L) 10.0 - 20.0 mcg/mL Blood 10/15/2024 9:26 PM REFINERY PROCESS ENGINEER 10/15/2024 9:53 PM REFINERY PROCESS ENGINEER Narrative [facility] - 10/15/2024 10:19 PM REFINERY PROCESS ENGINEER Draw trough 30 minutes prior to 4th dose. us Marcus Vergara MD LAB BLOOD ORDERABLES Final Resu lt Performing Organization Address [facility] Co de Phone Number [facility] [place] [address] * Transfuse platelets (10/15/2024 5:32 PM REFINERY PROCESS ENGINEER) us Marcus Vergara MD BLOOD TRANSFUSION ORDERABLES Fi nal Result Performing Organization Address [facility] Co de Phone Number [facility] [place] [address] * Prepare platelets: 1 Units (10/15/2024 5:42 AM REFINERY PROCESS ENGINEER) Product code [id number] Unit Number [id number] [facility] Product Blood Type OPOS [facility] Dispense Status PRESUMED TRANSFUSED [facility] Blood Venous blood specimen / Unknown 10/15/2024 5:42 AM REFINERY PROCESS ENGINEER 10/15/2024 5:41 AM REFINERY PROCESS ENGINEER Narrative [facility] - 10/16/2024 8:02 AM REFINERY PROCESS ENGINEER Are special requirements needed? (all products are leukoreduced)->Yes Date required:-[id number] Special Req 1:-Irradiated PLT # of Units:-1-Units Reasons:-Stable, non-bleeding, plt < 10 K/cumm} us Marcus Vergara MD BLOOD BANK PRODUCT ORDERABLES F inal Result [facility] Department [place] [address] * Immature platelet fraction (10/15/2024 3:06 AM REFINERY PROCESS ENGINEER) Pathologist [facility] [place] IPF 2.2 1.6 - 10.1 % Blood 10/15/2024 3:06 AM REFINERY PROCESS ENGINEER 10/15/2024 3:53 AM REFINERY PROCESS ENGINEER Marcus Vergara MD LAB BLOOD ORDERABLES Final Resu lt Performing Organization Address City/[facility]/ZIP Co de Phone Number [facility] Department [place] [address] * eGFR (10/15/2024 3:06 AM REFINERY PROCESS ENGINEER) Pathologist [facility] eGFR >90 >=60 mL/min/1. 73 m2 Comment: Interpretive Data Reference Interval Normal >/= 90 mL/min/1.73m2 Mildly decreased* 60 - 89 mL/min/1.73m2 Mildly to moderately decreased 45 - 59 mL/min/1.73m2 Moderately to severely decreased 30 - 44 mL/min/1.73m2 Severely decreased 15 - 29 mL/min/1.73m2 Kidney Failure < 15 mL/min/1.73m2 *Relative to young adult level Estimated glomerular filtration rate is determined by the 2020 CKD-EPI equation recommended by the National Kidney Foundation (A Unifying Approach to GFR Estimation: Recommendations of the NKF-ASK Task Force on Reassessing the Inclusion of Race in Diagnosing Kidney Disease, JASN 2020). The CKD-EPI equation should not be used for patients with unstable renal function and has not been validated in children and those over 70. Current interpretive data was last reviewed 2021. Blood 10/15/2024 3:06 AM REFINERY PROCESS ENGINEER 10/15/2024 3:49 AM REFINERY PROCESS ENGINEER Marcus Vergara MD LAB BLOOD ORDERABLES Final Resu lt Performing Organization Address [facility] Co de Phone Number [facility] [place] [address] * (ABNORMAL) Manual Differential (10/15/2024 3:06 AM REFINERY PROCESS ENGINEER) Differential Manual Cells Counted 1 [facility] Neutrophil pct 0.0 % [facility] Comment: Interpretive Data Percent cell count reference ranges are not reported, since discordance with absolute values may lead to misinterpretation of CBC data. Current Interpretive Data was last revised on 2017. Lymphocyte pct 100.0 % [facility] Comment: Interpretive Data Percent cell count reference ranges are not reported, since discordance with absolute values may lead to misinterpretation of CBC data. Current Interpretive Data was last revised on 2017. RBC morphology Normal [facility] Platelet estimate Decreased( A) [facility] Blood 10/15/2024 3:06 AM REFINERY PROCESS ENGINEER 10/15/2024 3:49 AM REFINERY PROCESS ENGINEER Marcus Vergara MD LAB BLOOD ORDERABLES Final Resu lt Performing Organization Address [facility] Co de Phone Number DAVID [facility] [place] [address] * (ABNORMAL) CBC without differential (10/15/2024 3:06 AM REFINERY PROCESS ENGINEER) WBC 0.0(C) 3.8 - 9.9 K/cumm Comment:Consistent with prev ious reported value Hgb 8.6(L) 11.9 - 15.5 g/dL [facility] Hct 25.1(L) 35.6 - 45.5 % [facility] Plt 3(C) 150 - 400 K/cumm [facility] Comment:DIANA JAMES RN. Ami ritical result called to and read back by DIANA JAMES RN on 10 15 2024 at 0405 to Kristin Matute. MPV 8.1(L) 9.1 - 12.3 fL [facility] RBC 2.85(L) 3.90 - 5.20 M/cumm [facility] MCV 88.1 81.3 - 96.4 fL [facility] MCH 30.2 27.1 - 33.3 pg [facility] MCHC 34.3 32.3 - 35.7 g/dL [facility] RDW CV 16.0(H) 11.1 - 14.9 % [facility] RDW SD 52.0(H) 35.7 - 48.1 fL [facility] NRBC abs 0.00 0.00 - 0.01 K/cumm [facility] Blood 10/15/2024 3:06 AM REFINERY PROCESS ENGINEER 10/15/2024 3:49 AM REFINERY PROCESS ENGINEER us Marcus Vergara MD LAB BLOOD ORDERABLES Final Resu lt Performing Organization Address City/[facility] Co de Phone Number [facility] One [facility] Department [place] [address] * Type and screen (10/15/2024 3:06 AM REFINERY PROCESS ENGINEER) ABO Rh A Positive Bing, indirect Negative [facility] Blood 10/15/2024 3:06 AM REFINERY PROCESS ENGINEER 10/15/2024 4:16 AM REFINERY PROCESS ENGINEER Narrative [facility] - 10/15/2024 5:18 AM REFINERY PROCESS ENGINEER Has the patient had Daratumumab or Isatuximab in the past 6 months?->Unknown us Marcus Vergara MD LAB BLOOD BANK TEST ORDERABLES Final Result Performing Organization Address City/State/[facility] Co de Phone Number [facility] [place] [address] * (ABNORMAL) Uric acid (10/15/2024 3:06 AM REFINERY PROCESS ENGINEER) Uric acid 0.7(L) 2.5 - 7.0 mg/dL Blood 10/15/2024 3:06 AM REFINERY PROCESS ENGINEER 10/15/2024 3:49 AM REFINERY PROCESS ENGINEER Narrative [facility] - 10/15/2024 4:21 AM REFINERY PROCESS ENGINEER Saturday and only. Morning draw. . us Marcus Vergara MD LAB BLOOD ORDERABLES Final Resu lt Performing Organization Address [facility] [place] [address] * (ABNORMAL) Phosphorus (10/15/2024 3:06 AM REFINERY PROCESS ENGINEER) Phosphorus, pl 1.7(L) 2.3 - 4.5 mg/dL Blood 10/15/2024 3:06 AM REFINERY PROCESS ENGINEER 10/15/2024 3:49 AM REFINERY PROCESS ENGINEER us Marcus Vergara MD LAB BLOOD ORDERABLES Final Resu lt Performing Organization Address [facility] Co de Phone Number [facility] Department [place] [address] * Magnesium (10/15/2024 3:06 AM REFINERY PROCESS ENGINEER) Magnesium 1.4 1.4 - 2.5 mg/dL Blood 10/15/2024 3:06 AM REFINERY PROCESS ENGINEER 10/15/2024 3:49 AM REFINERY PROCESS ENGINEER us Marcus Vergara MD LAB BLOOD ORDERABLES Final Resu lt Performing Organization Address [facility] Co de Phone Number [facility] Department [place] [address] * Lactate dehydrogenase (LD) (10/15/2024 3:06 AM REFINERY PROCESS ENGINEER) [facility] Lactate dehydrogenase (LDH) 128 100 - 250 Units/L Blood 10/15/2024 3:06 AM REFINERY PROCESS ENGINEER 10/15/2024 3:49 AM REFINERY PROCESS ENGINEER Narrative [facility] - 10/15/2024 4:21 AM REFINERY PROCESS ENGINEER Saturday and only. Morning draw. us Marcus Vergara MD LAB BLOOD ORDERABLES Final Resu lt [facility] One [facility] Department [place] [address] * (ABNORMAL) Comprehensive metabolic panel (10/15/2024 3:06 AM REFINERY PROCESS ENGINEER) [facility] Sodium 134(L) 135 - 145 mmol/L Potassium, pl 3.2(L) 3.3 - 4.9 mmol/L [facility] Chloride 95(L) 97 - 110 mmol/L [facility] CO2 30 22 - 32 mmol/L [facility] Anion gap 9 2 - 15 mmol/L [facility] BUN 9 6 - 25 mg/dL [facility] Creatinine 0.58(L) 0.60 - 1.10 mg/dL [facility] Glucose 120 70 - 199 mg/dL [facility] Comment: Interpretive Data Fasting glucose >/= 126 mg/dl is diagnostic for diabetes. Fasting is defined as no caloric intake for at least 8 hours. Fasting glucose between 100 mg/dl to 125 mg/dl is diagnostic of prediabetes. In a patient with classic symptoms of hyperglycemia or hyperglycemic crisis, a random glucose >/= 200 mg/dl is diagnostic for diabetes. In the absence of unequivocal hyperglycemia, results should be confirmed by repeat testing. The classification and Diagnosis of Diabetes Diabetes Care 2021; 46: S19-S40. Current interpretive data was last revised 2022. Calcium 7.2(L) 8.5 - 10.3 mg/dL [facility] Bilirubin, total 1.3(H) 0.1 - 1.2 mg/dL [facility] Protein, pl 5.6(L) 6.5 - 8.5 g/dL [facility] Albumin 2.4(L) 3.5 - 5.0 g/dL [facility] Alk phos 62 40 - 130 Units/L [facility] ALT 13 7 - 45 Units/L [facility] AST 7(L) 10 - 45 Units/L [facility] Blood 10/15/2024 3:06 AM REFINERY PROCESS ENGINEER 10/15/2024 3:49 AM REFINERY PROCESS ENGINEER Narrative [facility] - 10/15/2024 4:21 AM REFINERY PROCESS ENGINEER Saturday and only. Morning draw. us Marcus Vergara MD LAB BLOOD ORDERABLES Final Resu lt [facility] One [facility] Department [place] [address] * Blood culture Blood Peripheral (10/14/2024 12:54 PM REFINERY PROCESS ENGINEER) Report Final Report: No growth Blood (Peripheral) 10/14/2024 12:54 PM REFINERY PROCESS ENGINEER 10/14/2024 1:32 PM REFINERY PROCESS ENGINEER N[facility]ative [facility] 4[facility]00 PM REFINERY PROCESS ENGINEER Collection->Peripheral 1. Blood cultures are incubated for 4 days on a continuously monitored blood culture system. The first report of a negative culture is issued within 24 hours of receipt of the specimen in the laboratory. 2. Positive culture results are reported as soon as they are detected. 3. The most important factor for detection of microbes in the setting of bloodstream infection is the volume of blood submitted for culture. Failure to collect an optimal blood volume can result in false negative blood cultures. 4. For pediatric patients, the recommended blood volume to collect follows a weight based strategy. See the electronic test catalog for collection instructions. 5. For positive blood cultures, a rapid molecular test may be performed for organism identification using the rosemary ePlex blood culture identification panel for gram positive (BCID-GP) and gram negative (BCID-GN) organisms. This nucleic acid amplification test detects microbial DNA in positive blood culture broth. This assay has been cleared by the [place] Food and Drug Administration and its performance characteristics have been verified by the [facility] Microbiology Laboratory. For questions about this culture, contact the Microbiology Laboratory at [phone]. Interpretive data was last revised on 24. us Marcus Vergara MD LAB [facility]OLOGY - [facility] LEOCHINYERE Final Result Performing Organization Address [facility] Co de Phone Number DAVID WAYNE One [facility] Department [place] [address] * Blood culture Blood Peripheral (10/14/2024 12:54 PM REFINERY PROCESS ENGINEER) Report Final Report: No growth Blood (Peripheral) 10/14/2024 12:54 PM REFINERY PROCESS ENGINEER 10/14/2024 1:32 PM REFINERY PROCESS ENGINEER Narrative [facility] - 10/18/2024 4:00 PM REFINERY PROCESS ENGINEER Collection->Peripheral 1. Blood cultures are incubated for 4 days on a continuously monitored blood culture system. The first report of a negative culture is issued within 24 hours of receipt of the specimen in the laboratory. 2. Positive culture results are reported as soon as they are detected. 3. The most important factor for detection of microbes in the setting of bloodstream infection is the volume of blood submitted for culture. Failure to collect an optimal blood volume can result in false negative blood cultures. 4. For pediatric patients, the recommended blood volume to collect follows a weight based strategy. See the electronic test catalog for collection instructions. 5. For positive blood cultures, a rapid molecular test may be performed for organism identification using the rosemary ePlex blood culture identification panel for gram positive (BCID-GP) and gram negative (BCID-GN) organisms. This nucleic acid amplification test detects microbial DNA in positive blood culture broth. This assay has been cleared by the [place] Food and Drug Administration and its performance characteristics have been verified by the [facility] Microbiology Laboratory. For questions about this culture, contact the Microbiology Laboratory at [phone]. Interpretive data was last revised on 24. us Marcus Vergara MD LAB MICROBIOLOGY [facility] ASHLEYGeovanni LISA Final Result [facility] [place] [address] * Prepare platelets: 1 Units (10/14/2024 5:58 AM REFINERY PROCESS ENGINEER) [facility] Product code [id number] Unit Number [id number] [facility] Product Blood Type APOS [facility] Dispense Status PRESUMED TRANSFUSED [facility] Blood Venous blood specimen / Unknown 10/14/2024 5:58 AM REFINERY PROCESS ENGINEER 10/14/2024 5:57 AM REFINERY PROCESS ENGINEER Narrative [facility] - 10/15/2024 12:57 AM REFINERY PROCESS ENGINEER Are special requirements needed? (all products are leukoreduced)->Yes Date required:-[id number] Special Req 1:-Irradiated PLT # of Units:-1-Units Reasons:-Stable, non-bleeding, plt < 10 K/cumm} Marcus Vergara MD BLOOD BANK PRODUCT ORDERABLES F inal Result Performing Organization Address [facility] [facility]/ZIP Co de Phone Number [facility] Department [place] [address] * Immature platelet fraction (10/14/2024 3:40 AM REFINERY PROCESS ENGINEER) [facility] IPF 2.5 1.6 - 10.1 % Blood 10/14/2024 3:40 AM REFINERY PROCESS ENGINEER 10/14/2024 5:14 AM REFINERY PROCESS ENGINEER Marcus Vergara MD LAB BLOOD ORDERABLES Final Resu lt Performing Organization Address [facility] Co de Phone Number [facility] [place] [address] * eGFR (10/14/2024 3:40 AM REFINERY PROCESS ENGINEER) [facility] eGFR >90 >=60 mL/min/1. 73 m2 Comment: Interpretive Data Reference Interval Normal >/= 90 mL/min/1.73m2 Mildly decreased* 60 - 89 mL/min/1.73m2 Mildly to moderately decreased 45 - 59 mL/min/1.73m2 Moderately to severely decreased 30 - 44 mL/min/1.73m2 Severely decreased 15 - 29 mL/min/1.73m2 Kidney Failure < 15 mL/min/1.73m2 *Relative to young adult level Estimated glomerular filtration rate is determined by the 2020 CKD-EPI equation recommended by the National Kidney Foundation (A Unifying Approach to GFR Estimation: Recommendations of the NKF-ASK Task Force on Reassessing the Inclusion of Race in Diagnosing Kidney Disease, JASN 2020). The CKD-EPI equation should not be used for patients with unstable renal function and has not been validated in children and those over 70. Current interpretive data was last reviewed 2021. Blood 10/14/2024 3:40 AM REFINERY PROCESS ENGINEER 10/14/2024 4:10 AM REFINERY PROCESS ENGINEER Marcus Vergara MD LAB BLOOD ORDERABLES Final Resu lt Performing Organization Address City/State/[facility] Co de Phone Number [facility] Department [place] [address] * (ABNORMAL) Manual Differential (10/14/2024 3:40 AM REFINERY PROCESS ENGINEER) Differential Manual Cells Counted 3 [facility] Neutrophil pct 0.0 % [facility] Comment: Interpretive Data Percent cell count reference ranges are not reported, since discordance with absolute values may lead to misinterpretation of CBC data. Current Interpretive Data was last revised on 2017. Lymphocyte pct 100.0 % [facility] Comment: Interpretive Data Percent cell count reference ranges are not reported, since discordance with absolute values may lead to misinterpretation of CBC data. Current Interpretive Data was last revised on 2017. RBC morphology Normal [facility] Platelet estimate Decreased( A) [facility] Blood 10/14/2024 3:40 AM REFINERY PROCESS ENGINEER 10/14/2024 4:10 AM REFINERY PROCESS ENGINEER Marcus Vergara MD LAB BLOOD ORDERABLES Edited Res ult - Final Performing Organization Address City/[facility]/ZIP Co de Phone Number [facility] Department [place] [address] * (ABNORMAL) CBC without differential (10/14/2024 3:40 AM REFINERY PROCESS ENGINEER) Pathologist [facility] [place] WBC 0.0(C) 3.8 - 9.9 K/cumm Comment:Consistent with prev ious reported value Hgb 9.5(L) 11.9 - 15.5 g/dL [facility] Hct 27.1(L) 35.6 - 45.5 % [facility] Plt 5(C) 150 - 400 K/cumm [facility] Comment:Critical result call ed to and read back by DIXON MULLINS RN on 10 14 2024 at 0550 to [facility]IV[facility] PLEITEZ. MPV 12.1 9.1 - 12.3 fL [facility] RBC 3.10(L) 3.90 - 5.20 M/cumm [facility] MCV 87.4 81.3 - 96.4 fL [facility] MCH 30.6 27.1 - 33.3 pg [facility] MCHC 35.1 32.3 - 35.7 g/dL [facility] RDW CV 16.0(H) 11.1 - 14.9 % [facility] RDW SD 50.6(H) 35.7 - 48.1 fL [facility] NRBC abs 0.00 0.00 - 0.01 K/cumm [facility] Blood 10/14/2024 3:40 AM REFINERY PROCESS ENGINEER 10/14/2024 4:10 AM REFINERY PROCESS ENGINEER us Marcus Vergara MD LAB BLOOD ORDERABLES Final Resu lt [facility] Department [place] [address] * (ABNORMAL) Phosphorus (10/14/2024 3:40 AM REFINERY PROCESS ENGINEER) Pathologist [facility] [place] Phosphorus, pl 1.4(L) 2.3 - 4.5 mg/dL Blood 10/14/2024 3:40 AM REFINERY PROCESS ENGINEER 10/14/2024 4:10 AM REFINERY PROCESS ENGINEER us Marcus Vergara MD LAB BLOOD ORDERABLES Final Resu lt Performing Organization Address City/[facility]/ZIP Co de Phone Number [facility] [place] [address] * Magnesium (10/14/2024 3:40 AM REFINERY PROCESS ENGINEER) Pathologist [facility] [place] Magnesium 2.3 1.4 - 2.5 mg/dL Blood 10/14/2024 3:40 AM REFINERY PROCESS ENGINEER 10/14/2024 4:10 AM REFINERY PROCESS ENGINEER us Marcus Vergara MD LAB BLOOD ORDERABLES Final Resu lt Performing Organization Address [facility] de Phone Number [facility] [place] [address] * (ABNORMAL) Basic metabolic panel (10/14/2024 3:40 AM REFINERY PROCESS ENGINEER) Pathologist [facility] [place] Sodium 136 135 - 145 mmol/L Potassium, pl 3.5 3.3 - 4.9 mmol/L [facility] Chloride 100 97 - 110 mmol/L [facility] CO2 29 22 - 32 mmol/L [facility] Anion gap 7 2 - 15 mmol/L [facility] BUN 12 6 - 25 mg/dL [facility] Creatinine 0.55(L) 0.60 - 1.10 mg/dL [facility] Glucose 118 70 - 199 mg/dL [facility] Comment: Interpretive Data Fasting glucose >/= 126 mg/dl is diagnostic for diabetes. Fasting is defined as no caloric intake for at least 8 hours. Fasting glucose between 100 mg/dl to 125 mg/dl is diagnostic of prediabetes. In a patient with classic symptoms of hyperglycemia or hyperglycemic crisis, a random glucose >/= 200 mg/dl is diagnostic for diabetes. In the absence of unequivocal hyperglycemia, results should be confirmed by repeat testing. The classification and Diagnosis of Diabetes Diabetes Care 202; 46: S19-S40. Current interpretive data was last revised 2022. Calcium 7.2(L) 8.5 - 10.3 mg/dL [facility] Blood 10/14/2024 3:40 AM REFINERY PROCESS ENGINEER 10/14/2024 4:10 AM REFINERY PROCESS ENGINEER us Marcus Vergara MD LAB BLOOD ORDERABLES Final Resu lt Performing Organization Address [facility] Co de Phone Number [facility] Department [place] [address] * Transfuse RBC (10/13/2024 2:23 PM REFINERY PROCESS ENGINEER) Blood us Marcus Vergara MD BLOOD TRANSFUSION ORDERABLES Fi nal Result Performing Organization Address [facility] Co de Phone Number [facility] [place] [address] * Transfuse platelets (10/13/2024 8:00 AM REFINERY PROCESS ENGINEER) us Marcus Vergara MD BLOOD TRANSFUSION ORDERABLES Fi nal Result Performing Organization Address [facility] de Phone Number [facility] [place] [address] * Prepare platelets: 1 Units (10/13/2024 4:42 AM REFINERY PROCESS ENGINEER) Product code [id number] Unit Number [id number] R [facility] Product Blood Type APOS [facility] Dispense Status PRESUMED TRANSFUSED [facility] Blood Venous blood specimen / Unknown 10/13/2024 4:42 AM REFINERY PROCESS ENGINEER 10/13/2024 4:41 AM REFINERY PROCESS ENGINEER Narrative [facility] - 10/13/2024 8:00 PM REFINERY PROCESS ENGINEER Are special requirements needed? (all products are leukoreduced)->Yes Date required:-20240929 Special Req 1:-Irradiated PLT # of Units:-1-Units Reasons:-Stable, non-bleeding, plt < 10 K/cumm} Marcus Vergara MD BLOOD BANK PRODUCT ORDERABLES F inal Result [facility] [place] [address] * Prepare RBC: 1 Units (10/13/2024 4:42 AM REFINERY PROCESS ENGINEER) [facility] Product code [id number] Unit Number [id number] C [facility] Product Blood Type APOS [facility] Dispense Status PRESUMED TRANSFUSED [facility] Blood Venous blood specimen / Unknown 10/13/2024 4:42 AM REFINERY PROCESS ENGINEER 10/13/2024 4:41 AM REFINERY PROCESS ENGINEER Narrative [facility] - 10/14/2024 12:56 AM REFINERY PROCESS ENGINEER Are special requirements needed? (All products are leukoreduced and CMV- safe)- >Yes Date required:-[id number] Special Req 1:-Irradiated LRRBC # of [id number] Reasons:-BMT, Hgb <8 g/dL} Marcus Vergara MD BLOOD BANK PRODUCT ORDERABLES F inal Result Performing Organization Address City/[facility]/ZIP Co de Phone Number [facility] [place] [address] * Immature platelet fraction (10/13/2024 3:11 AM REFINERY PROCESS ENGINEER) [facility] IPF 2.2 1.6 - 10.1 % Blood 10/13/2024 3:11 AM REFINERY PROCESS ENGINEER 10/13/2024 4:20 AM REFINERY PROCESS ENGINEER Marcus Vergara MD LAB BLOOD ORDERABLES Final Resu lt Performing Organization Address City/[facility]/ZIP Co de Phone Number [facility] [place] [address] * eGFR (10/13/2024 3:11 AM REFINERY PROCESS ENGINEER) [facility] eGFR >90 >=60 mL/min/1. 73 m2 Comment: Interpretive Data Reference Interval Normal >/= 90 mL/min/1.73m2 Mildly decreased* 60 - 89 mL/min/1.73m2 Mildly to moderately decreased 45 - 59 mL/min/1.73m2 Moderately to severely decreased 30 - 44 mL/min/1.73m2 Severely decreased 15 - 29 mL/min/1.73m2 Kidney Failure < 15 mL/min/1.73m2 *Relative to young adult level Estimated glomerular filtration rate is determined by the 2020 CKD-EPI equation recommended by the National Kidney Foundation (A Unifying Approach to GFR Estimation: Recommendations of the NKF-ASK Task Force on Reassessing the Inclusion of Race in Diagnosing Kidney Disease, JASN 2020). The CKD-EPI equation should not be used for patients with unstable renal function and has not been validated in children and those over 70. Current interpretive data was last reviewed 2021. Blood 10/13/2024 3:11 AM REFINERY PROCESS ENGINEER 10/13/2024 4:11 AM REFINERY PROCESS ENGINEER us Marcus Vergara MD LAB BLOOD ORDERABLES Final Resu lt [facility] Department [place] [address] * (ABNORMAL) Manual Differential (10/13/2024 3:11 AM REFINERY PROCESS ENGINEER) Differential Manual Cells Counted 1 [facility] Neutrophil pct 0.0 % [facility] Comment: Interpretive Data Percent cell count reference ranges are not reported, since discordance with absolute values may lead to misinterpretation of CBC data. Current Interpretive Data was last revised on 2017. Lymphocyte pct 100.0 % [facility] Comment: Interpretive Data Percent cell count reference ranges are not reported, since discordance with absolute values may lead to misinterpretation of CBC data. Current Interpretive Data was last revised on 2017. RBC morphology Normal [facility] Platelet estimate Decreased( A) [facility] Blood 10/13/2024 3:11 AM REFINERY PROCESS ENGINEER 10/13/2024 4:11 AM REFINERY PROCESS ENGINEER Marcus Vergara MD LAB BLOOD ORDERABLES Final Resu lt [facility] Department [place] [address] * (ABNORMAL) CBC without differential (10/13/2024 3:11 AM REFINERY PROCESS ENGINEER) [facility] WBC 0.0(C) 3.8 - 9.9 K/cumm Comment:Consistent with prev ious reported value Hgb 7.8(L) 11.9 - 15.5 g/dL [facility] Hct 22.9(L) 35.6 - 45.5 % [facility] Plt 4(C) 150 - 400 K/cumm [facility] Comment:cora wiggins rn. Critical result called to and read back by CORA WIGGINS RN on 10 13 2024 at 0440 to [facility]. MPV Not Measured 9.1 - 12.3 fL [facility] RBC 2.59(L) 3.90 - 5.20 M/cumm [facility] MCV 88.4 81.3 - 96.4 fL [facility] MCH 30.1 27.1 - 33.3 pg [facility] MCHC 34.1 32.3 - 35.7 g/dL [facility] RDW CV 16.0(H) 11.1 - 14.9 % [facility] RDW SD 52.0(H) 35.7 - 48.1 fL [facility] NRBC abs 0.00 0.00 - 0.01 K/cumm [facility] Blood 10/13/2024 3:11 AM REFINERY PROCESS ENGINEER 10/13/2024 4:11 AM REFINERY PROCESS ENGINEER Marcus Vergara MD LAB BLOOD ORDERABLES Final Resu lt [facility] Department [place] [address] * (ABNORMAL) Phosphorus (10/13/2024 3:11 AM REFINERY PROCESS ENGINEER) [facility] Phosphorus, pl 1.7(L) 2.3 - 4.5 mg/dL Blood 10/13/2024 3:11 AM REFINERY PROCESS ENGINEER 10/13/2024 4:11 AM REFINERY PROCESS ENGINEER us Marcus Vergara MD LAB BLOOD ORDERABLES Final Resu lt Performing Organization Address City/[facility]/ZIP Co de Phone Number [facility] [place] [address] * Magnesium (10/13/2024 3:11 AM REFINERY PROCESS ENGINEER) Pathologist [facility] [place] Magnesium 1.8 1.4 - 2.5 mg/dL Blood 10/13/2024 3:11 AM REFINERY PROCESS ENGINEER 10/13/2024 4:11 AM REFINERY PROCESS ENGINEER us Marcus Vergara MD LAB BLOOD ORDERABLES Final Resu lt Performing Organization Address [facility] de Phone Number [facility] [place] [address] * (ABNORMAL) Basic metabolic panel (10/13/2024 3:11 AM REFINERY PROCESS ENGINEER) [facility] Sodium 136 135 - 145 mmol/L Potassium, pl 4.0 3.3 - 4.9 mmol/L [facility] Chloride 100 97 - 110 mmol/L [facility] CO2 29 22 - 32 mmol/L [facility] Anion gap 7 2 - 15 mmol/L [facility] BUN 13 6 - 25 mg/dL [facility] Creatinine 0.51(L) 0.60 - 1.10 mg/dL [facility] Glucose 156 70 - 199 mg/dL [facility] Comment: Interpretive Data Fasting glucose >/= 126 mg/dl is diagnostic for diabetes. Fasting is defined as no caloric intake for at least 8 hours. Fasting glucose between 100 mg/dl to 125 mg/dl is diagnostic of prediabetes. In a patient with classic symptoms of hyperglycemia or hyperglycemic crisis, a random glucose >/= 200 mg/dl is diagnostic for diabetes. In the absence of unequivocal hyperglycemia, results should be confirmed by repeat testing. The classification and Diagnosis of Diabetes Diabetes Care 202; 46: S19-S40. Current interpretive data was last revised 2022. Calcium 7.5(L) 8.5 - 10.3 mg/dL [facility] Blood 10/13/2024 3:11 AM REFINERY PROCESS ENGINEER 10/13/2024 4:11 AM REFINERY PROCESS ENGINEER us Marcus Vergara MD LAB BLOOD ORDERABLES Final Resu lt Performing Organization Address [facility] de Phone Number [facility] [place] [address] * Transfuse platelets (10/12/2024 11:02 AM REFINERY PROCESS ENGINEER) us Marcus Vergara MD BLOOD TRANSFUSION ORDERABLES Fi nal Result Performing Organization Address [facility] de Phone Number [facility] [place] [address] * Prepare platelets: 1 Units (10/12/2024 5:32 AM REFINERY PROCESS ENGINEER) Product code [id number] Unit Number [id number] [facility] Product Blood Type APOS [facility] Dispense Status PRESUMED TRANSFUSED [facility] Blood Venous blood specimen / Unknown 10/12/2024 5:32 AM REFINERY PROCESS ENGINEER 10/12/2024 5:31 AM REFINERY PROCESS ENGINEER Narrative [facility] - 10/12/2024 8:00 PM REFINERY PROCESS ENGINEER Are special requirements needed? (all products are leukoreduced)->Yes Date required:-20240929 Special Req 1:-Irradiated PLT # of Units:-1-Units Reasons:-Stable, non-bleeding, plt < 10 K/cumm} us Marcus Vergara MD BLOOD BANK PRODUCT ORDERABLES F inal Result Performing Organization Address [facility] de Phone Number [facility] [place] [address] * (ABNORMAL) Immature platelet fraction (10/12/2024 3:51 AM REFINERY PROCESS ENGINEER) IPF 1.2(L) 1.6 - 10.1 % Blood 10/12/2024 3:51 AM REFINERY PROCESS ENGINEER 10/12/2024 4:27 AM REFINERY PROCESS ENGINEER us Marcus Vergara MD LAB BLOOD ORDERABLES Final Resu lt Performing Organization Address City/[facility]/ZIP Co de Phone Number [facility] Department [place] [address] * eGFR (10/12/2024 3:51 AM REFINERY PROCESS ENGINEER) eGFR >90 >=60 mL/min/1. 73 m2 Comment: Interpretive Data Reference Interval Normal >/= 90 mL/min/1.73m2 Mildly decreased* 60 - 89 mL/min/1.73m2 Mildly to moderately decreased 45 - 59 mL/min/1.73m2 Moderately to severely decreased 30 - 44 mL/min/1.73m2 Severely decreased 15 - 29 mL/min/1.73m2 Kidney Failure < 15 mL/min/1.73m2 *Relative to young adult level Estimated glomerular filtration rate is determined by the 2020 CKD-EPI equation recommended by the National Kidney Foundation (A Unifying Approach to GFR Estimation: Recommendations of the NKF-ASK Task Force on Reassessing the Inclusion of Race in Diagnosing Kidney Disease, JASN 2020). The CKD-EPI equation should not be used for patients with unstable renal function and has not been validated in children and those over 70. Current interpretive data was last reviewed 2021. Blood 10/12/2024 3:51 AM REFINERY PROCESS ENGINEER 10/12/2024 4:24 AM REFINERY PROCESS ENGINEER us Marcus Vergara MD LAB BLOOD ORDERABLES Final Resu lt Performing Organization Address City/[facility]/ZIP Co de Phone Number [facility] Department [place] [address] * (ABNORMAL) Manual Differential (10/12/2024 3:51 AM REFINERY PROCESS ENGINEER) [facility] Differential Manual Cells Counted 0 [facility] Neutrophil pct 0.0 % [facility] Comment: Interpretive Data Percent cell count reference ranges are not reported, since discordance with absolute values may lead to misinterpretation of CBC data. Current Interpretive Data was last revised on 2017. RBC morphology Present(A) [facility] Anisocytosis Slight(A) [facility] Macrocytes 3-7/HPF(A) [facility] Platelet estimate Decreased( A) [facility] Blood 10/12/2024 3:51 AM REFINERY PROCESS ENGINEER 10/12/2024 4:24 AM REFINERY PROCESS ENGINEER us Marcus Vergara MD LAB BLOOD ORDERABLES Edited Res ult - Final Performing Organization Address [facility] Co de Phone Number [facility] Department [place] [address] * aPTT (10/12/2024 3:51 AM REFINERY PROCESS ENGINEER) [facility] aPTT 30 28 - 38 sec Comment: Interpretive Data Heparin therapeutic range: 66.0 - 100.0 seconds. Range based on correlation with therapeutic heparin activity range of 0.3 - 0.7 Units/mL. Current interpretive data was last revised on 2023. Blood 10/12/2024 3:51 AM REFINERY PROCESS ENGINEER 10/12/2024 4:21 AM REFINERY PROCESS ENGINEER us Marcus Vergara MD LAB BLOOD ORDERABLES Final Resu lt Performing Organization Address [facility] Co de Phone Number [facility] Department [place] [address] * (ABNORMAL) Protime-INR (10/12/2024 3:51 AM REFINERY PROCESS ENGINEER) [facility] PT 17.7(H) 9.7 - 13.0 sec INR 1.62(H) 0.90 - 1.20 [facility] Comment: Interpretive data Oral anticoagulant therapeutic ranges: Venous thromboembolism prophylaxis or treatment: 2.0-3.0 CARDIOLOGY Standard range: 2.0-3.0 High-intensity range: 2.5-3.5 Refer to indication-specific guidelines for appropriate target ranges for prosthetic heart valve replacement. Current interpretive data was last revised on 2019. Blood 10/12/2024 3:51 AM REFINERY PROCESS ENGINEER 10/12/2024 4:21 AM REFINERY PROCESS ENGINEER Marcus Vergara MD LAB BLOOD ORDERABLES Final Resu lt [facility] Department [place] [address] * (ABNORMAL) CBC without differential (10/12/2024 3:51 AM REFINERY PROCESS ENGINEER) WBC 0.0(C) 3.8 - 9.9 K/cumm Comment:Consistent with prev ious reported value Hgb 8.2(L) 11.9 - 15.5 g/dL [facility] Hct 24.0(L) 35.6 - 45.5 % [facility] Plt 2(C) 150 - 400 K/cumm [facility] Comment:Critical result call ed to and read back by ARLEY AVILA RN on 10 12 2024 at 0500 to Rayne Pruitt. MPV 14.2(H) 9.1 - 12.3 fL [facility] RBC 2.72(L) 3.90 - 5.20 M/cumm [facility] MCV 88.2 81.3 - 96.4 fL [facility] MCH 30.1 27.1 - 33.3 pg [facility] MCHC 34.2 32.3 - 35.7 g/dL [facility] RDW CV 16.2(H) 11.1 - 14.9 % [facility] RDW SD 52.3(H) 35.7 - 48.1 fL [facility] NRBC abs 0.00 0.00 - 0.01 K/cumm [facility] Blood 10/12/2024 3:51 AM REFINERY PROCESS ENGINEER 10/12/2024 4:24 AM REFINERY PROCESS ENGINEER Marcus Vergara MD LAB BLOOD ORDERABLES Final Resu lt Performing Organization Address [facility] de Phone Number [facility] [place] [address] * Type and screen (10/12/2024 3:51 AM REFINERY PROCESS ENGINEER) ABO Rh A Positive Bing, indirect Negative [facility] Blood 10/12/2024 3:51 AM REFINERY PROCESS ENGINEER 10/12/2024 4:31 AM REFINERY PROCESS ENGINEER Narrative [facility] - 10/12/2024 6:02 AM REFINERY PROCESS ENGINEER Has the patient had Daratumumab or Isatuximab in the past 6 months?->Unknown Result [facility] Marcus Vergara MD LAB BLOOD BANK TEST ORDERABLES Final Result Performing Organization Address [facility] de Phone Number [facility] [place] [address] * (ABNORMAL) Uric acid (10/12/2024 3:51 AM REFINERY PROCESS ENGINEER) Uric acid 0.9(L) 2.5 - 7.0 mg/dL Blood 10/12/2024 3:51 AM REFINERY PROCESS ENGINEER 10/12/2024 4:24 AM REFINERY PROCESS ENGINEER Narrative [facility] - 10/12/2024 4:52 AM REFINERY PROCESS ENGINEER Saturday and only. Morning draw. . Marcus Vergara MD LAB BLOOD ORDERABLES Final Resu lt Performing Organization Address [facility] Co de Phone Number [facility] [place] [address] * (ABNORMAL) Phosphorus (10/12/2024 3:51 AM REFINERY PROCESS ENGINEER) Phosphorus, pl 1.7(L) 2.3 - 4.5 mg/dL Blood 10/12/2024 3:51 AM REFINERY PROCESS ENGINEER 10/12/2024 4:24 AM REFINERY PROCESS ENGINEER us Marcus Vergara MD LAB BLOOD ORDERABLES Final Resu lt Performing Organization Address [facility] Co de Phone Number [facility] [place] [address] * Magnesium (10/12/2024 3:51 AM REFINERY PROCESS ENGINEER) [facility] Magnesium 1.7 1.4 - 2.5 mg/dL Blood 10/12/2024 3:51 AM REFINERY PROCESS ENGINEER 10/12/2024 4:24 AM REFINERY PROCESS ENGINEER us Marcus Vergara MD LAB BLOOD ORDERABLES Final Resu lt Performing Organization Address [facility] [place] [address] * Lactate dehydrogenase (LD) (10/12/2024 3:51 AM REFINERY PROCESS ENGINEER) [facility] Lactate dehydrogenase (LDH) 206 100 - 250 Units/L Blood 10/12/2024 3:51 AM REFINERY PROCESS ENGINEER 10/12/2024 4:24 AM REFINERY PROCESS ENGINEER Narrative [facility] - 10/12/2024 5:27 AM REFINERY PROCESS ENGINEER Saturday and only. Morning draw. us Marcus Vergara MD LAB BLOOD ORDERABLES Final Resu lt Performing Organization Address [facility] [place] [address] * (ABNORMAL) Comprehensive metabolic panel (10/12/2024 3:51 AM REFINERY PROCESS ENGINEER) [facility] Sodium 132(L) 135 - 145 mmol/L Potassium, pl 4.1 3.3 - 4.9 mmol/L [facility] Chloride 98 97 - 110 mmol/L [facility] CO2 26 22 - 32 mmol/L [facility] Anion gap 8 2 - 15 mmol/L [facility] BUN 11 6 - 25 mg/dL [facility] Creatinine 0.53(L) 0.60 - 1.10 mg/dL [facility] Glucose 136 70 - 199 mg/dL [facility] Comment: Interpretive Data Fasting glucose >/= 126 mg/dl is diagnostic for diabetes. Fasting is defined as no caloric intake for at least 8 hours. Fasting glucose between 100 mg/dl to 125 mg/dl is diagnostic of prediabetes. In a patient with classic symptoms of hyperglycemia or hyperglycemic crisis, a random glucose >/= 200 mg/dl is diagnostic for diabetes. In the absence of unequivocal hyperglycemia, results should be confirmed by repeat testing. The classification and Diagnosis of Diabetes Diabetes Care 2021; 46: S19-S40. Current interpretive data was last revised 2022. Calcium 7.7(L) 8.5 - 10.3 mg/dL [facility] Bilirubin, total 0.8 0.1 - 1.2 mg/dL [facility] Protein, pl 6.3(L) 6.5 - 8.5 g/dL [facility] Albumin 2.7(L) 3.5 - 5.0 g/dL [facility] Alk phos 74 40 - 130 Units/L [facility] ALT 19 7 - 45 Units/L [facility] AST 13 10 - 45 Units/L [facility] Blood 10/12/2024 3:51 AM REFINERY PROCESS ENGINEER 10/12/2024 4:24 AM REFINERY PROCESS ENGINEER Narrative [facility] - 10/12/2024 4:52 AM REFINERY PROCESS ENGINEER Saturday and only. Morning draw. us Marcus Vergara MD LAB BLOOD ORDERABLES Final Resu lt [facility] [place] [address] * eGFR (10/11/2024 6:26 PM REFINERY PROCESS ENGINEER) eGFR >90 >=60 mL/min/1. 73 m2 Comment: Interpretive Data Reference Interval Normal >/= 90 mL/min/1.73m2 Mildly decreased* 60 - 89 mL/min/1.73m2 Mildly to moderately decreased 45 - 59 mL/min/1.73m2 Moderately to severely decreased 30 - 44 mL/min/1.73m2 Severely decreased 15 - 29 mL/min/1.73m2 Kidney Failure < 15 mL/min/1.73m2 *Relative to young adult level Estimated glomerular filtration rate is determined by the 2020 CKD-EPI equation recommended by the National Kidney Foundation (A Unifying Approach to GFR Estimation: Recommendations of the NKF-ASK Task Force on Reassessing the Inclusion of Race in Diagnosing Kidney Disease, JASN 202). The CKD-EPI equation should not be used for patients with unstable renal function and has not been validated in children and those over 70. Current interpretive data was last reviewed 2021. Blood 10/11/2024 6:26 PM REFINERY PROCESS ENGINEER 10/11/2024 6:45 PM REFINERY PROCESS ENGINEER us Marcus Vergara MD LAB BLOOD ORDERABLES Final Resu lt [facility] Department [place] [address] * (ABNORMAL) Basic metabolic panel (10/11/2024 6:26 PM REFINERY PROCESS ENGINEER) Sodium 135 135 - 145 mmol/L Potassium, pl 4.0 3.3 - 4.9 mmol/L [facility] Chloride 99 97 - 110 mmol/L [facility] CO2 27 22 - 32 mmol/L [facility] Anion gap 9 2 - 15 mmol/L [facility] BUN 11 6 - 25 mg/dL [facility] Creatinine 0.51(L) 0.60 - 1.10 mg/dL [facility] Glucose 163 70 - 199 mg/dL [facility] Comment: Interpretive Data Fasting glucose >/= 126 mg/dl is diagnostic for diabetes. Fasting is defined as no caloric intake for at least 8 hours. Fasting glucose between 100 mg/dl to 125 mg/dl is diagnostic of prediabetes. In a patient with classic symptoms of hyperglycemia or hyperglycemic crisis, a random glucose >/= 200 mg/dl is diagnostic for diabetes. In the absence of unequivocal hyperglycemia, results should be confirmed by repeat testing. The classification and Diagnosis of Diabetes Diabetes Care 2021; 46: S19-S40. Current interpretive data was last revised 2022. Calcium 7.9(L) 8.5 - 10.3 mg/dL [facility] Blood 10/11/2024 6:26 PM REFINERY PROCESS ENGINEER 10/11/2024 6:45 PM REFINERY PROCESS ENGINEER us Marcus Vergara MD LAB BLOOD ORDERABLES Final Resu lt Performing Organization Address [facility] Co de Phone Number [facility] [place] [address] * Transfuse platelets (10/11/2024 5:50 AM REFINERY PROCESS ENGINEER) us Marcus Vergara MD BLOOD TRANSFUSION ORDERABLES Fi nal Result Performing Organization Address [facility] de Phone Number [facility] [address] [place], [place] [id number] * Prepare platelets: 1 Units (10/11/2024 3:28 AM REFINERY PROCESS ENGINEER) [facility] Product code [id number] Unit Number [id number] [facility] Product Blood Type OPOS [facility] Dispense Status PRESUMED TRANSFUSED [facility] Blood Venous blood specimen / Unknown 10/11/2024 3:28 AM REFINERY PROCESS ENGINEER 10/11/2024 3:27 AM REFINERY PROCESS ENGINEER Narrative [facility] - 10/11/2024 4:00 PM REFINERY PROCESS ENGINEER Are special requirements needed? (all products are leukoreduced)->Yes Date required:-[id number] Special Req 1:-Irradiated PLT # of Units:-1-Units Reasons:-Stable, non-bleeding, plt < 10 K/cumm} us Marcus Vergara MD BLOOD BANK PRODUCT ORDERABLES F inal Result Performing Organization Address [facility] de Phone Number [facility] [place] [address] * Immature platelet fraction (10/11/2024 12:33 AM REFINERY PROCESS ENGINEER) [facility] IPF 3.3 1.6 - 10.1 % Blood 10/11/2024 12:3 3 AM REFINERY PROCESS ENGINEER 10/11/2024 1:53 AM REFINERY PROCESS ENGINEER us Marcus Vergara MD LAB BLOOD ORDERABLES Final Resu lt [facility] [place] [address] * eGFR (10/11/2024 12:33 AM REFINERY PROCESS ENGINEER) [facility] eGFR >90 >=60 mL/min/1. 73 m2 Comment: Interpretive Data Reference Interval Normal >/= 90 mL/min/1.73m2 Mildly decreased* 60 - 89 mL/min/1.73m2 Mildly to moderately decreased 45 - 59 mL/min/1.73m2 Moderately to severely decreased 30 - 44 mL/min/1.73m2 Severely decreased 15 - 29 mL/min/1.73m2 Kidney Failure < 15 mL/min/1.73m2 *Relative to young adult level Estimated glomerular filtration rate is determined by the 2020 CKD-EPI equation recommended by the National Kidney Foundation (A Unifying Approach to GFR Estimation: Recommendations of the NKF-ASK Task Force on Reassessing the Inclusion of Race in Diagnosing Kidney Disease, JASN 2020). The CKD-EPI equation should not be used for patients with unstable renal function and has not been validated in children and those over 70. Current interpretive data was last reviewed 2021. Blood 10/11/2024 12:3 3 AM REFINERY PROCESS ENGINEER 10/11/2024 1:41 AM REFINERY PROCESS ENGINEER us Marcus Vergara MD LAB BLOOD ORDERABLES Final Resu lt [facility] [place] [address] * (ABNORMAL) Manual Differential (10/11/2024 12:33 AM REFINERY PROCESS ENGINEER) Differential Manual Cells Counted 1 [facility] Neutrophil pct 0.0 % [facility] Comment: Interpretive Data Percent cell count reference ranges are not reported, since discordance with absolute values may lead to misinterpretation of CBC data. Current Interpretive Data was last revised on 2017. Lymphocyte pct 100.0 % [facility] Comment: Interpretive Data Percent cell count reference ranges are not reported, since discordance with absolute values may lead to misinterpretation of CBC data. Current Interpretive Data was last revised on 2017. RBC morphology Present(A) [facility] Anisocytosis Slight(A) [facility] Macrocytes 3-7/HPF(A) [facility] Platelet estimate Decreased( A) [facility] Blood 10/11/2024 12:3 3 AM REFINERY PROCESS ENGINEER 10/11/2024 1:41 AM REFINERY PROCESS ENGINEER us Marcus Vergara MD LAB BLOOD ORDERABLES Edited Res ult - Final [facility] Department [place] [address] * (ABNORMAL) CBC without differential (10/11/2024 12:33 AM REFINERY PROCESS ENGINEER) Pathologist [facility] [place] WBC 0.0(C) 3.8 - 9.9 K/cumm Comment:Consistent with prev ious reported value Hgb 8.3(L) 11.9 - 15.5 g/dL [facility] Hct 24.0(L) 35.6 - 45.5 % [facility] Plt 4(C) 150 - 400 K/cumm [facility] Comment:Critical result call ed to and read back by DAMON FLYNN RN on 10 11 2024 at 0225 to Noe Gloria. MPV 12.2 9.1 - 12.3 fL [facility] RBC 2.74(L) 3.90 - 5.20 M/cumm [facility] MCV 87.6 81.3 - 96.4 fL [facility] MCH 30.3 27.1 - 33.3 pg [facility] MCHC 34.6 32.3 - 35.7 g/dL [facility] RDW CV 16.7(H) 11.1 - 14.9 % [facility] RDW SD 53.5(H) 35.7 - 48.1 fL [facility] NRBC abs 0.00 0.00 - 0.01 K/cumm [facility] Blood 10/11/2024 12:3 3 AM REFINERY PROCESS ENGINEER 10/11/2024 1:41 AM REFINERY PROCESS ENGINEER us Marcus Vergara MD LAB BLOOD ORDERABLES Final Resu lt Performing Organization Address City/[facility] Co de Phone Number [facility] [place] [address] * (ABNORMAL) Phosphorus (10/11/2024 12:33 AM REFINERY PROCESS ENGINEER) Phosphorus, pl 1.5(L) 2.3 - 4.5 mg/dL Blood 10/11/2024 12:3 3 AM REFINERY PROCESS ENGINEER 10/11/2024 1:41 AM REFINERY PROCESS ENGINEER us Marcus Vergara MD LAB BLOOD ORDERABLES Final Resu lt Performing Organization Address [facility] de Phone Number [facility] Department [place] [address] * Magnesium (10/11/2024 12:33 AM REFINERY PROCESS ENGINEER) Magnesium 2.0 1.4 - 2.5 mg/dL Blood 10/11/2024 12:3 3 AM REFINERY PROCESS ENGINEER 10/11/2024 1:41 AM REFINERY PROCESS ENGINEER us Marcus Vergara MD LAB BLOOD ORDERABLES Final Resu lt Performing Organization Address [facility] de Phone Number [facility] [place] [address] * (ABNORMAL) Basic metabolic panel (10/11/2024 12:33 AM REFINERY PROCESS ENGINEER) Sodium 128(L) 135 - 145 mmol/L Potassium, pl 4.2 3.3 - 4.9 mmol/L [facility] Comment:Hemolyzed; Potassium value may be falsely elevated by as much as 0.3-0.5 mmol/L. Suggest redraw and reanalysis. Chloride 97 97 - 110 mmol/L [facility] CO2 26 22 - 32 mmol/L [facility] Anion gap 5 2 - 15 mmol/L [facility] BUN 9 6 - 25 mg/dL [facility] Creatinine 0.53(L) 0.60 - 1.10 mg/dL [facility] Glucose 152 70 - 199 mg/dL [facility] Comment: Interpretive Data Fasting glucose >/= 126 mg/dl is diagnostic for diabetes. Fasting is defined as no caloric intake for at least 8 hours. Fasting glucose between 100 mg/dl to 125 mg/dl is diagnostic of prediabetes. In a patient with classic symptoms of hyperglycemia or hyperglycemic crisis, a random glucose >/= 200 mg/dl is diagnostic for diabetes. In the absence of unequivocal hyperglycemia, results should be confirmed by repeat testing. The classification and Diagnosis of Diabetes Diabetes Care 202; 46: S19-S40. Current interpretive data was last revised 2022. Calcium 7.8(L) 8.5 - 10.3 mg/dL [facility] Blood 10/11/2024 12:3 3 AM REFINERY PROCESS ENGINEER 10/11/2024 1:41 AM REFINERY PROCESS ENGINEER us Marcus Vergara MD LAB BLOOD ORDERABLES Final Resu lt [facility] [place] [address] * eGFR (10/10/2024 5:13 PM REFINERY PROCESS ENGINEER) [facility] eGFR >90 >=60 mL/min/1. 73 m2 Comment: Interpretive Data Reference Interval Normal >/= 90 mL/min/1.73m2 Mildly decreased* 60 - 89 mL/min/1.73m2 Mildly to moderately decreased 45 - 59 mL/min/1.73m2 Moderately to severely decreased 30 - 44 mL/min/1.73m2 Severely decreased 15 - 29 mL/min/1.73m2 Kidney Failure < 15 mL/min/1.73m2 *Relative to young adult level Estimated glomerular filtration rate is determined by the 2020 CKD-EPI equation recommended by the National Kidney Foundation (A Unifying Approach to GFR Estimation: Recommendations of the NKF-ASK Task Force on Reassessing the Inclusion of Race in Diagnosing Kidney Disease, JASN 202). The CKD-EPI equation should not be used for patients with unstable renal function and has not been validated in children and those over 70. Current interpretive data was last reviewed 2021. Blood 10/10/2024 5:13 PM REFINERY PROCESS ENGINEER 10/10/2024 5:25 PM REFINERY PROCESS ENGINEER us Marcus Vergara MD LAB BLOOD ORDERABLES Final Resu lt Performing Organization Address City/[facility]/ZIP Co de Phone Number [facility] Department [place] [address] * (ABNORMAL) Phosphorus (10/10/2024 5:13 PM REFINERY PROCESS ENGINEER) Phosphorus, pl 2.2(L) 2.3 - 4.5 mg/dL Blood 10/10/2024 5:13 PM REFINERY PROCESS ENGINEER 10/10/2024 5:20 PM REFINERY PROCESS ENGINEER Marcus Vergara MD LAB BLOOD ORDERABLES Final Resu lt [facility] Department [place] [address] * (ABNORMAL) Basic metabolic panel (10/10/2024 5:13 PM REFINERY PROCESS ENGINEER) Sodium 130(L) 135 - 145 mmol/L Potassium, pl 4.3 3.3 - 4.9 mmol/L [facility] Chloride 96(L) 97 - 110 mmol/L [facility] CO2 25 22 - 32 mmol/L [facility] Anion gap 9 2 - 15 mmol/L [facility] BUN 8 6 - 25 mg/dL [facility] Creatinine 0.55(L) 0.60 - 1.10 mg/dL [facility] Glucose 153 70 - 199 mg/dL [facility] Comment: Interpretive Data Fasting glucose >/= 126 mg/dl is diagnostic for diabetes. Fasting is defined as no caloric intake for at least 8 hours. Fasting glucose between 100 mg/dl to 125 mg/dl is diagnostic of prediabetes. In a patient with classic symptoms of hyperglycemia or hyperglycemic crisis, a random glucose >/= 200 mg/dl is diagnostic for diabetes. In the absence of unequivocal hyperglycemia, results should be confirmed by repeat testing. The classification and Diagnosis of Diabetes Diabetes Care 2021; 46: S19-S40. Current interpretive data was last revised 2022. Calcium 8.0(L) 8.5 - 10.3 mg/dL [facility] Blood 10/10/2024 5:13 PM REFINERY PROCESS ENGINEER 10/10/2024 5:20 PM REFINERY PROCESS ENGINEER us Marcus Vergara MD LAB BLOOD ORDERABLES Final Resu lt [facility] Department [place] [address] * Cortisol 60 min (10/10/2024 2:22 PM REFINERY PROCESS ENGINEER) [facility] Signature Cortisol, 60 min 31.0 mcg/dL Comment: Interpretive Data Reference Values Cortisol cutoff of 14-15 ug/dL for cortrosyn stimulation testing. Lack of normal response can be seen in both primary and secondary adrenal failure. Some patients with secondary adrenal failure have normal response to cortrosyn. If pituitary disease is known or strongly suspected e.g. after pituitary surgery), the cortrosyn test alone should not be relied on to exclude adrenal failure. Literature References: 1. Carmine BR, Otonile H, Maikel LYNN, et al. New cutoffs for the biochemical diagnosis of adrenal insufficiency after ACTH stimulation using specific cortisol assays. J Endocr Soc. 2020;5(4):jsnh754. 2. Refugio GRECOP and Margareth AM. New cutoffs for the biochemical diagnosis of Adrenal insufficiency after ACTH stimulation using specific cortisol assays. J. Endocrine Soc 2020;5:1-2. Current interpret data was last revised 24 Blood 10/10/2024 2:22 PM REFINERY PROCESS ENGINEER 10/10/2024 2:35 PM REFINERY PROCESS ENGINEER Narrative DAVID GARCÍA - 10/10/2024 3:11 PM REFINERY PROCESS ENGINEER First draw prior to administration of cosyntropin. Second draw 30 minutes after administration of drug. Third draw 60 minutes after administration of drug. us Marcus Vergara MD LAB BLOOD ORDERABLES Final Resu lt [facility] Department [place] [address] * Cortisol 30 min (10/10/2024 1:53 PM REFINERY PROCESS ENGINEER) Cortisol, 30 min 24.9 mcg/dL Comment: Interpretive Data Reference Values Cortisol cutoff of 14-15 ug/dL for cortrosyn stimulation testing. Lack of normal response can be seen in both primary and secondary adrenal failure. Some patients with secondary adrenal failure have normal response to cortrosyn. If pituitary disease is known or strongly suspected e.g. after pituitary surgery), the cortrosyn test alone should not be relied on to exclude adrenal failure. Literature References: 1. Carmine BR, Otoniel H, Maikel LYNN, et al. New cutoffs for the biochemical diagnosis of adrenal insufficiency after ACTH stimulation using specific cortisol assays. J Endocr Soc. 2020;5(4):gppq019. 2. Refugio GRECOP and Margareth CABRAL. New cutoffs for the biochemical diagnosis of Adrenal insufficiency after ACTH stimulation using specific cortisol assays. J. Endocrine Soc 2020;5:1-2. Current interpret data was last revised 24 Blood 10/10/2024 1:53 PM REFINERY PROCESS ENGINEER 10/10/2024 2:35 PM REFINERY PROCESS ENGINEER Narrative DAVID [facility] - 10/10/2024 3:11 PM REFINERY PROCESS ENGINEER First draw prior to administration of cosyntropin. Second draw 30 minutes after administration of drug. Third draw 60 minutes after administration of drug. Marcus Vergara MD LAB BLOOD ORDERABLES Final Resu lt [facility] [place] [address] * Cortisol baseline (10/10/2024 1:22 PM REFINERY PROCESS ENGINEER) Cortisol, base 17.3 mcg/dL Blood 10/10/2024 1:22 PM REFINERY PROCESS ENGINEER 10/10/2024 2:35 PM REFINERY PROCESS ENGINEER Narrative DAVID GARCÍA - 10/10/2024 3:10 PM REFINERY PROCESS ENGINEER First draw prior to administration of cosyntropin. Second draw 30 minutes after administration of drug. Third draw 60 minutes after administration of drug. Marcus Vergara MD LAB BLOOD ORDERABLES Final Resu lt Performing Organization Address City/[facility]/ZIP Co de Phone Number [facility] Department [place] [address] * eGFR (10/10/2024 8:54 AM REFINERY PROCESS ENGINEER) eGFR >90 >=60 mL/min/1. 73 m2 Comment: Interpretive Data Reference Interval Normal >/= 90 mL/min/1.73m2 Mildly decreased* 60 - 89 mL/min/1.73m2 Mildly to moderately decreased 45 - 59 mL/min/1.73m2 Moderately to severely decreased 30 - 44 mL/min/1.73m2 Severely decreased 15 - 29 mL/min/1.73m2 Kidney Failure < 15 mL/min/1.73m2 *Relative to young adult level Estimated glomerular filtration rate is determined by the 2020 CKD-EPI equation recommended by the National Kidney Foundation (A Unifying Approach to GFR Estimation: Recommendations of the NKF-ASK Task Force on Reassessing the Inclusion of Race in Diagnosing Kidney Disease, JASN 2020). The CKD-EPI equation should not be used for patients with unstable renal function and has not been validated in children and those over 70. Current interpretive data was last reviewed 2021. Blood 10/10/2024 8:54 AM REFINERY PROCESS ENGINEER 10/10/2024 12:27 PM REFINERY PROCESS ENGINEER Marcus Vergara MD LAB BLOOD ORDERABLES Final Resu lt Performing Organization Address [facility] Co de Phone Number [facility] [place] [address] * (ABNORMAL) Cortisol (10/10/2024 8:54 AM REFINERY PROCESS ENGINEER) Pathologist [facility] [place] Cortisol 20.2(H) 4.8 - 19.5 mcg/dL Comment: Interpretive Data: Morning hours 6-10 a.m. 4.8 - 19.5 mcg/dL Afternoon hours 4-8 p.m. 2.5 - 11.9 mcg/dL This analyte undergoes marked diurnal variation. Current interpretive data was last revised 24. Blood 10/10/2024 8:54 AM REFINERY PROCESS ENGINEER 10/10/2024 12:27 PM REFINERY PROCESS ENGINEER Marcus Vergara MD LAB BLOOD ORDERABLES Final Resu lt Performing Organization Address [facility] de Phone Number DAVID [facility] [place] [address] * (ABNORMAL) Basic metabolic panel (10/10/2024 8:54 AM REFINERY PROCESS ENGINEER) Sodium 132(L) 135 - 145 mmol/L Comment:Repeated and Verifie d Potassium, pl 4.5 3.3 - 4.9 mmol/L [facility] Chloride 99 97 - 110 mmol/L [facility] Comment:Repeated and Verifie d CO2 27 22 - 32 mmol/L [facility] Anion gap 6 2 - 15 mmol/L [facility] Comment:Reviewed BUN 7 6 - 25 mg/dL [facility] Creatinine 0.54(L) 0.60 - 1.10 mg/dL [facility] [facility] Glucose 128 70 - 199 mg/dL [facility] Comment: Interpretive Data Fasting glucose >/= 126 mg/dl is diagnostic for diabetes. Fasting is defined as no caloric intake for at least 8 hours. Fasting glucose between 100 mg/dl to 125 mg/dl is diagnostic of prediabetes. In a patient with classic symptoms of hyperglycemia or hyperglycemic crisis, a random glucose >/= 200 mg/dl is diagnostic for diabetes. In the absence of unequivocal hyperglycemia, results should be confirmed by repeat testing. The classification and Diagnosis of Diabetes Diabetes Care 2021; 46: S19-S40. Current interpretive data was last revised 2022. Calcium 7.0(L) 8.5 - 10.3 mg/dL [facility] Blood 10/10/2024 8:54 AM REFINERY PROCESS ENGINEER 10/10/2024 12:27 PM REFINERY PROCESS ENGINEER us Marcus Vergara MD LAB BLOOD ORDERABLES Final Resu lt Performing Organization Address [facility] Co de Phone Number [facility] Department [place] [address] * Transfuse RBC (10/10/2024 8:18 AM REFINERY PROCESS ENGINEER) Blood us Marcus Vergara MD BLOOD TRANSFUSION ORDERABLES Fi nal Result Performing Organization Address [facility] Co de Phone Number [facility] Department [place] [address] * Transfuse platelets (10/10/2024 6:16 AM REFINERY PROCESS ENGINEER) us Marcus Vergara MD BLOOD TRANSFUSION ORDERABLES Fi nal Result Performing Organization Address [facility] de Phone Number [facility] Department [place] [address] * Prepare platelets: 1 Units (10/10/2024 3:57 AM REFINERY PROCESS ENGINEER) [facility] Product code [id number] Unit Number [id number] [facility] Product Blood Type APOS [facility] Dispense Status PRESUMED TRANSFUSED [facility] Blood Venous blood specimen / Unknown 10/10/2024 3:57 AM REFINERY PROCESS ENGINEER 10/10/2024 3:56 AM REFINERY PROCESS ENGINEER Narrative [facility] - 10/10/2024 8:00 PM REFINERY PROCESS ENGINEER Are special requirements needed? (all products are leukoreduced)->Yes Date required:-20240929 Special Req 1:-Irradiated PLT # of Units:-1-Units Reasons:-Stable, non-bleeding, plt < 10 K/cumm} Result [facility] Marcus Vergara MD BLOOD BANK PRODUCT ORDERABLES F inal Result Performing Organization Address [facility] Co de Phone Number [facility] Department [place] [address] * Prepare RBC: 1 Units (10/10/2024 3:57 AM REFINERY PROCESS ENGINEER) [facility] Product code [id number] Unit Number [id number] [facility] Product Blood Type APOS [facility] Dispense Status PRESUMED TRANSFUSED [facility] Blood Venous blood specimen / Unknown 10/10/2024 3:57 AM REFINERY PROCESS ENGINEER 10/10/2024 3:56 AM REFINERY PROCESS ENGINEER Narrative [facility] - 10/10/2024 8:00 PM REFINERY PROCESS ENGINEER Are special requirements needed? (All products are leukoreduced and CMV- safe)- >Yes Date required:-20240929 Special Req 1:-Irradiated LRRBC # of [id number] Reasons:-BMT, Hgb <8 g/dL} Result [facility] Marcus Vergara MD BLOOD BANK PRODUCT ORDERABLES F inal Result Performing Organization Address [facility] Co de Phone Number [facility] Department [place] [address] * (ABNORMAL) Immature platelet fraction (10/10/2024 12:31 AM REFINERY PROCESS ENGINEER) Pathologist [facility] [place] IPF 1.2(L) 1.6 - 10.1 % Blood 10/10/2024 12:3 1 AM REFINERY PROCESS ENGINEER 10/10/2024 1:14 AM REFINERY PROCESS ENGINEER Marcus Veragra MD LAB BLOOD ORDERABLES Final Resu lt Performing Organization Address [facility] de Phone Number [facility] [place] [address] * eGFR (10/10/2024 12:31 AM REFINERY PROCESS ENGINEER) eGFR >90 >=60 mL/min/1. 73 m2 Comment: Interpretive Data Reference Interval Normal >/= 90 mL/min/1.73m2 Mildly decreased* 60 - 89 mL/min/1.73m2 Mildly to moderately decreased 45 - 59 mL/min/1.73m2 Moderately to severely decreased 30 - 44 mL/min/1.73m2 Severely decreased 15 - 29 mL/min/1.73m2 Kidney Failure < 15 mL/min/1.73m2 *Relative to young adult level Estimated glomerular filtration rate is determined by the 2020 CKD-EPI equation recommended by the National Kidney Foundation (A Unifying Approach to GFR Estimation: Recommendations of the NKF-ASK Task Force on Reassessing the Inclusion of Race in Diagnosing Kidney Disease, JASN 2020). The CKD-EPI equation should not be used for patients with unstable renal function and has not been validated in children and those over 70. Current interpretive data was last reviewed 2021. Blood 10/10/2024 12:3 1 AM REFINERY PROCESS ENGINEER 10/10/2024 1:09 AM REFINERY PROCESS ENGINEER us Marcus Vergara MD LAB BLOOD ORDERABLES Final Resu lt Performing Organization Address [facility] de Phone Number DAVID [facility] Department [place] [address] * (ABNORMAL) Manual Differential (10/10/2024 12:31 AM REFINERY PROCESS ENGINEER) RBC morphology Normal Platelet estimate Decreased(A ) DAVID [facility] Blood 10/10/2024 12:3 1 AM REFINERY PROCESS ENGINEER 10/10/2024 1:09 AM REFINERY PROCESS ENGINEER us Marcus Vergara MD LAB BLOOD ORDERABLES Final Resu lt Performing Organization Address [facility]/State/ZIP Co de Phone Number CERNER [facility] Department [place] [address] * (ABNORMAL) CBC without differential (10/10/2024 12:31 AM REFINERY PROCESS ENGINEER) [facility] WBC 0.0(C) 3.8 - 9.9 K/cumm Comment:Consistent with prev ious reported value Hgb 7.0(L) 11.9 - 15.5 g/dL [facility] Hct 20.2(L) 35.6 - 45.5 % [facility] Plt 2(C) 150 - 400 K/cumm [facility] Comment:Critical result call ed to and read back by MIMA PARISI RN on 10 10 2024 at [facility] MPV 8.8(L) 9.1 - 12.3 fL [facility] RBC 2.23(L) 3.90 - 5.20 M/cumm [facility] MCV 90.6 81.3 - 96.4 fL [facility] MCH 31.4 27.1 - 33.3 pg [facility] MCHC 34.7 32.3 - 35.7 g/dL [facility] RDW CV 15.8(H) 11.1 - 14.9 % [facility] RDW SD 53.0(H) 35.7 - 48.1 fL [facility] NRBC abs 0.00 0.00 - 0.01 K/cumm [facility] Blood 10/10/2024 12:3 1 AM REFINERY PROCESS ENGINEER 10/10/2024 1:09 AM REFINERY PROCESS ENGINEER us Marcus Vergara MD LAB BLOOD ORDERABLES Final Resu lt [facility] Department [place] [address] * (ABNORMAL) Phosphorus (10/10/2024 12:31 AM REFINERY PROCESS ENGINEER) [facility] Phosphorus, pl 1.3(L) 2.3 - 4.5 mg/dL Blood 10/10/2024 12:3 1 AM REFINERY PROCESS ENGINEER 10/10/2024 1:09 AM REFINERY PROCESS ENGINEER us Marcus Vergara MD LAB BLOOD ORDERABLES Final Resu lt Performing Organization Address City/[facility] Co de Phone Number [facility] [place] [address] * Magnesium (10/10/2024 12:31 AM REFINERY PROCESS ENGINEER) [facility] Magnesium 1.8 1.4 - 2.5 mg/dL Blood 10/10/2024 12:3 1 AM REFINERY PROCESS ENGINEER 10/10/2024 1:09 AM REFINERY PROCESS ENGINEER us Marcus Vergara MD LAB BLOOD ORDERABLES Final Resu lt Performing Organization Address [facility] de Phone Number [facility] Department [place] [address] * (ABNORMAL) Basic metabolic panel (10/10/2024 12:31 AM REFINERY PROCESS ENGINEER) [facility] Sodium 122(L) 135 - 145 mmol/L Potassium, pl 3.1(L) 3.3 - 4.9 mmol/L [facility] Chloride 112(H) 97 - 110 mmol/L [facility] Comment:Repeated and Verifie d CO2 24 22 - 32 mmol/L [facility] Anion gap <1(L) 2 - 15 mmol/L [facility] BUN 6 6 - 25 mg/dL [facility] Creatinine 0.42(L) 0.60 - 1.10 mg/dL [facility] Glucose 107 70 - 199 mg/dL [facility] Comment: Interpretive Data Fasting glucose >/= 126 mg/dl is diagnostic for diabetes. Fasting is defined as no caloric intake for at least 8 hours. Fasting glucose between 100 mg/dl to 125 mg/dl is diagnostic of prediabetes. In a patient with classic symptoms of hyperglycemia or hyperglycemic crisis, a random glucose >/= 200 mg/dl is diagnostic for diabetes. In the absence of unequivocal hyperglycemia, results should be confirmed by repeat testing. The classification and Diagnosis of Diabetes Diabetes Care 2021; 46: S19-S40. Current interpretive data was last revised 2022. Calcium 6.6(L) 8.5 - 10.3 mg/dL [facility] Comment:Reviewed Blood 10/10/2024 12:3 1 AM REFINERY PROCESS ENGINEER 10/10/2024 1:09 AM REFINERY PROCESS ENGINEER Result [facility] Marcus Vergara MD LAB BLOOD ORDERABLES Final Resu lt Performing Organization Address City/[facility] Co de Phone Number [facility] Department [place] [address] * ECG 12 lead (10/09/2024 5:14 PM REFINERY PROCESS ENGINEER) Ventricular Rate EKG/Min 100 BPM [facility] Atrial Rate 100 BPM [facility] [place]-Interval (MSEC) 138 ms [facility] QRS-Interval (MSEC) 92 ms [facility] QT-Interval (MSEC) 362 ms [facility] QTc 466 ms [facility] P [place] 62 degrees [facility] R [place] 92 degrees [facility] T [place] 42 degrees [facility] Diagnosis Normal sinus rhythm Rightward axis Borderline ECG Confirmed by Lalo COOL, [facility] ([id number]) on 10/15/2024 4:43:04 AM [facility] 10/09/2024 5:14 PM REFINERY PROCESS ENGINEER 10/15/2024 4:43 AM REFINERY PROCESS ENGINEER Result [facility] Marcus Vergara MD ECG ORDERABLES Final Result Performing Organization Address [facility] de Phone Number [facility] * Sodium, urine, random (10/09/2024 4:44 PM REFINERY PROCESS ENGINEER) Sodium, ur 154 mmol/L Comment: Interpretive Data No reference range established. Current interpretive data was last revised 2019. Urine 10/09/2024 4:44 PM REFINERY PROCESS ENGINEER 10/09/2024 5:00 PM REFINERY PROCESS ENGINEER Marcus Vergara MD LAB URINE ORDERABLES Final Resu lt Performing Organization Address [facility] [place] [address] * Osmolality, urine (10/09/2024 4:44 PM REFINERY PROCESS ENGINEER) Osmo, ur 504 mOsm/kg Urine 10/09/2024 4:44 PM REFINERY PROCESS ENGINEER 10/09/2024 5:00 PM REFINERY PROCESS ENGINEER Marcus Vergara MD LAB URINE ORDERABLES Final Resu lt Performing Organization Address [facility] [place] [address] * Transfuse platelets (10/09/2024 6:09 AM REFINERY PROCESS ENGINEER) Marcus Vergara MD BLOOD TRANSFUSION ORDERABLES Fi nal Result Performing Organization Address [facility] [place] [address] * Prepare platelets: 1 Units (10/09/2024 3:43 AM REFINERY PROCESS ENGINEER) [facility] Product code [id number] Unit Number [id number] [facility] Product Blood Type APOS [facility] Dispense Status PRESUMED TRANSFUSED [facility] Blood Venous blood specimen / Unknown 10/09/2024 3:43 AM REFINERY PROCESS ENGINEER 10/09/2024 3:43 AM REFINERY PROCESS ENGINEER Narrative [facility] - 10/09/2024 4:00 PM REFINERY PROCESS ENGINEER Are special requirements needed? (all products are leukoreduced)->Yes Date required:-[id number] Special Req 1:-Irradiated PLT # of Units:-1-Units Reasons:-Stable, non-bleeding, plt < 10 K/cumm} us Marcus Vergara MD BLOOD BANK PRODUCT ORDERABLES F inal Result Performing Organization Address [facility] de Phone Number [facility] [place] [address] * Immature platelet fraction (10/09/2024 12:38 AM REFINERY PROCESS ENGINEER) IPF 1.6 1.6 - 10.1 % Blood 10/09/2024 12:3 8 AM REFINERY PROCESS ENGINEER 10/09/2024 12:58 AM REFINERY PROCESS ENGINEER aMrcus Vergara MD LAB BLOOD ORDERABLES Final Resu lt Performing Organization Address City/[facility]/[place]IP [place] [address] * eGFR (10/09/2024 12:38 AM REFINERY PROCESS ENGINEER) Pathologist [facility] [place] eGFR >90 >=60 mL/min/1. 73 m2 Comment: Interpretive Data Reference Interval Normal >/= 90 mL/min/1.73m2 Mildly decreased* 60 - 89 mL/min/1.73m2 Mildly to moderately decreased 45 - 59 mL/min/1.73m2 Moderately to severely decreased 30 - 44 mL/min/1.73m2 Severely decreased 15 - 29 mL/min/1.73m2 Kidney Failure < 15 mL/min/1.73m2 *Relative to young adult level Estimated glomerular filtration rate is determined by the 2020 CKD-EPI equation recommended by the National Kidney Foundation (A Unifying Approach to GFR Estimation: Recommendations of the NKF-ASK Task Force on Reassessing the Inclusion of Race in Diagnosing Kidney Disease, JASN 2020). The CKD-EPI equation should not be used for patients with unstable renal function and has not been validated in children and those over 70. Current interpretive data was last reviewed 2021. Blood 10/09/2024 12:3 8 AM REFINERY PROCESS ENGINEER 10/09/2024 12:54 AM REFINERY PROCESS ENGINEER us Marcus Vergara MD LAB BLOOD ORDERABLES Final Resu lt DAVID [facility] [place] [address] * Thyroid Function [place] (10/09/2024 12:38 AM REFINERY PROCESS ENGINEER) Pathologist [facility] [place] TSH 0.74 0.30 - 4.20 mcIUnit/mL Blood 10/09/2024 12:3 8 AM REFINERY PROCESS ENGINEER 10/09/2024 12:54 AM REFINERY PROCESS ENGINEER Marcus Vergara MD LAB BLOOD ORDERABLES Final Resu lt Performing Organization Address City/[facility] Co de Phone Number DAVID [facility] Department [place] [address] * (ABNORMAL) Manual Differential (10/09/2024 12:38 AM REFINERY PROCESS ENGINEER) [facility] Differential Manual Cells Counted 0 [facility] RBC morphology Present(A) [facility] Anisocytosis Slight(A) [facility] Platelet estimate Decreased( A) [facility] Blood 10/09/2024 12:3 8 AM REFINERY PROCESS ENGINEER 10/09/2024 12:54 AM REFINERY PROCESS ENGINEER Marcus Vergara MD LAB BLOOD ORDERABLES Edited Res ult - Final Performing Organization Address [facility] de Phone Number DAVID [facility] Department [place] [address] * (ABNORMAL) CBC without differential (10/09/2024 12:38 AM REFINERY PROCESS ENGINEER) [facility] WBC 0.0(C) 3.8 - 9.9 K/cumm Comment:Consistent with prev ious reported value Hgb 8.1(L) 11.9 - 15.5 g/dL [facility] Comment:Large delta with no apparant cause, correlate with clinical context and redraw if indicated. Spoke to Halina Gupta RN. 10-09-2024@01:27 Hct 22.9(L) 35.6 - 45.5 % [facility] Plt 4(C) 150 - 400 K/cumm [facility] Comment:Critical result call ed to and read back by HALINA GUPTA on 10 09 2024 at 0127 to Ayush Farfan. MPV 11.3 9.1 - 12.3 fL [facility] RBC 2.57(L) 3.90 - 5.20 M/cumm [facility] MCV 89.1 81.3 - 96.4 fL [facility] MCH 31.5 27.1 - 33.3 pg [facility] MCHC 35.4 32.3 - 35.7 g/dL [facility] RDW CV 15.8(H) 11.1 - 14.9 % [facility] RDW SD 51.6(H) 35.7 - 48.1 fL [facility] NRBC abs 0.00 0.00 - 0.01 K/cumm [facility] Blood 10/09/2024 12:3 8 AM REFINERY PROCESS ENGINEER 10/09/2024 12:54 AM REFINERY PROCESS ENGINEER Marcus Vergara MD LAB BLOOD ORDERABLES Final Resu lt Performing Organization Address City/[facility]/ZIP Co de Phone Number [facility] Department [place] [address] * (ABNORMAL) Phosphorus (10/09/2024 12:38 AM REFINERY PROCESS ENGINEER) [facility] Phosphorus, pl 1.9(L) 2.3 - 4.5 mg/dL Blood 10/09/2024 12:3 8 AM REFINERY PROCESS ENGINEER 10/09/2024 12:54 AM REFINERY PROCESS ENGINEER Marcus Vergara MD LAB BLOOD ORDERABLES Final Resu lt [facility] Department [place] [address] * (ABNORMAL) Osmolality, blood (10/09/2024 12:38 AM REFINERY PROCESS ENGINEER) [facility] Osmo 264(L) 275 - 300 mOsm/kg Blood 10/09/2024 12:3 8 AM REFINERY PROCESS ENGINEER 10/09/2024 12:54 AM REFINERY PROCESS ENGINEER us Marcus Vergara MD LAB BLOOD ORDERABLES Final Resu lt Performing Organization Address City/[facility]/ZIP Co de Phone Number [facility] Department [place] [address] * Magnesium (10/09/2024 12:38 AM REFINERY PROCESS ENGINEER) [facility] Magnesium 1.8 1.4 - 2.5 mg/dL Blood 10/09/2024 12:3 8 AM REFINERY PROCESS ENGINEER 10/09/2024 12:54 AM REFINERY PROCESS ENGINEER us Marcus Vergara MD LAB BLOOD ORDERABLES Final Resu lt Performing Organization Address [facility] de Phone Number [facility] Department [place] [address] * (ABNORMAL) Basic metabolic panel (10/09/2024 12:38 AM REFINERY PROCESS ENGINEER) [facility] Sodium 128(L) 135 - 145 mmol/L Potassium, pl 3.7 3.3 - 4.9 mmol/L [facility] Chloride 95(L) 97 - 110 mmol/L [facility] CO2 27 22 - 32 mmol/L [facility] Anion gap 6 2 - 15 mmol/L [facility] BUN 10 6 - 25 mg/dL [facility] Creatinine 0.51(L) 0.60 - 1.10 mg/dL [facility] Glucose 146 70 - 199 mg/dL [facility] Comment: Interpretive Data Fasting glucose >/= 126 mg/dl is diagnostic for diabetes. Fasting is defined as no caloric intake for at least 8 hours. Fasting glucose between 100 mg/dl to 125 mg/dl is diagnostic of prediabetes. In a patient with classic symptoms of hyperglycemia or hyperglycemic crisis, a random glucose >/= 200 mg/dl is diagnostic for diabetes. In the absence of unequivocal hyperglycemia, results should be confirmed by repeat testing. The classification and Diagnosis of Diabetes Diabetes Care 2021; 46: S19-S40. Current interpretive data was last revised 2022. Calcium 7.0(L) 8.5 - 10.3 mg/dL [facility] Blood 10/09/2024 12:3 8 AM REFINERY PROCESS ENGINEER 10/09/2024 12:54 AM REFINERY PROCESS ENGINEER us Marcus Vergara MD LAB BLOOD ORDERABLES Final Resu lt Performing Organization Address [facility] de Phone Number [facility] [place] [address] * Collection Task for HLA Typing 1 (10/08/2024 2:20 PM REFINERY PROCESS ENGINEER) HLA Class I DNA (ABC) Recipient Received Blood 10/08/2024 2:20 PM REFINERY PROCESS ENGINEER 10/09/2024 11:35 AM REFINERY PROCESS ENGINEER us Marcus Vergara MD LAB BLOOD ORDERABLES Final Resu lt Performing Organization Address [facility] de Phone Number [facility] [place] [address] * Collection Task for HLA Antibody Screen (10/08/2024 2:20 PM REFINERY PROCESS ENGINEER) Pathologist [facility] [place] HLA Antibody Screen By Single Antigen Received Blood 10/08/2024 2:20 PM REFINERY PROCESS ENGINEER 10/09/2024 11:35 AM REFINERY PROCESS ENGINEER us Marcus Vergara MD LAB BLOOD ORDERABLES Final Resu lt Performing Organization Address [facility] de Phone Number [facility] [place] [address] * HLA Antibody Screen - SAB (Class I and Class II) (10/08/2024 2:20 PM REFINERY PROCESS ENGINEER) Class I Treatment EDTA HISTOTRAC Class I Dilution 1:1 HISTOTRAC Class I Tested Date 10/09/2024 HISTOTRAC Class I Result Positive HISTOTRAC Class I CPRA 8 HISTOTRAC Class I Moderate Risk B60 HISTOTRAC Class I Low Risk B8, B13, B44, B49, B50, B57, B71, B72, B75, B82 HISTOTRAC Class II Treatment EDTA HISTOTRAC Class II Dilution 1:1 HISTOTRAC Class II Tested Date 10/09/2024 HISTOTRAC Class II Result Negative HISTOTRAC Class II CPRA 0 [facility]AC Blood 10/08/2024 2:20 PM REFINERY PROCESS ENGINEER 10/28/2024 11:30 AM REFINERY PROCESS ENGINEER Narrative HISTOTRAC - 10/28/2024 11:30 AM REFINERY PROCESS ENGINEER Single-antigen HLA antibody screen is performed on serum samples using a method developed and validated by the [facility] HLA laboratory based on an FDA-approved IVD kit ([employer] Productscreen Single-Antigen, [employer], [place], [place]). All patient serum samples are pretreated with EDTA before the screen to prevent complement interference. Additional serum treatments, such as adsorption and DTT treatment, may be performed as indicated. Interpretive comments: Low risk: MFI 1436-2754. Moderate risk: MFI 9430-2141. Increased risk: MFI >/= 5000. The presence of an antigen in two or more risk categories may indicate a mixed reactivity pattern among beads of multiple subtypes. Preformed donor-specific antibodies (DSA) with MFI above 2000 are predictive of positive cytotoxicity crossmatch (Hum Immunol 2010;71:268-73. Hum Immunol 2012;73:497- 604) and carry a higher risk of humoral rejection. For our solid-organ transplant programs, unacceptable antigens (UA) for transplant candidates are defined by MFI >/= 2000 with some exceptions. UA are listed at [employer] and used to generate calculated PRA (cPRA) rounded to the nearest integer. In the post-transplant setting, MFI values from donor-specific beads are listed in the DSA report to provide additional information. It is important to note that this test is approved as a qualitative test and the MFI values are not strictly linear. For platelet refractoriness: An empirical cutoff value of MFI >/= 2000 has been used in our center; a higher cutoff value such as 5000 may also be suitable for highly sensitized patients to prioritize the antigens to avoid. Testing performed at the [facility], [facility] [address], 5th floor, [place], [address]. [facility] # [id number]. Nicole Riley, Ph.D., Salvage Repairer, [facility] Laboratory Franklin Hull M.D., Ph.D., Green Chain Puller, [facility] Laboratory Gladis Zuluaga, Ph.D., NATTYIA Green Chain Puller, [facility] Clinical Laboratories Current methodology and interpretive comments last revised on 09/27/2022. Marcus Vergara MD LAB BLOOD ORDERABLES Final Resu lt Performing Organization Address [facility] de Phone Number [facility] * Transfuse platelets (10/08/2024 6:23 AM REFINERY PROCESS ENGINEER) Marcus Vergaar MD BLOOD TRANSFUSION ORDERABLES Fi nal Result Performing Organization Address [facility] de Phone Number [facility] Department [place] [address] * Prepare platelets: 1 Units (10/08/2024 4:08 AM REFINERY PROCESS ENGINEER) [facility] Product code [id number] Unit Number [id number] [facility] Product Blood Type APOS [facility] Dispense Status PRESUMED TRANSFUSED [facility] Blood Venous blood specimen / Unknown 10/08/2024 4:08 AM REFINERY PROCESS ENGINEER 10/08/2024 4:07 AM REFINERY PROCESS ENGINEER Narrative [facility] - 10/08/2024 8:01 PM REFINERY PROCESS ENGINEER Are special requirements needed? (all products are leukoreduced)->Yes Date required:-[id number] Special Req 1:-Irradiated PLT # of Units:-1-Units Reasons:-Stable, non-bleeding, plt < 10 K/cumm} Marcus Vergara MD BLOOD BANK PRODUCT ORDERABLES F inal Result Performing Organization Address [facility] de Phone Number [facility] Department [place] [address] * (ABNORMAL) Immature platelet fraction (10/08/2024 12:44 AM REFINERY PROCESS ENGINEER) Pathologist [facility] [place] IPF 1.2(L) 1.6 - 10.1 % Blood 10/08/2024 12:4 4 AM REFINERY PROCESS ENGINEER 10/08/2024 1:10 AM REFINERY PROCESS ENGINEER Marcus Vergara MD LAB BLOOD ORDERABLES Final Resu lt Performing Organization Address [facility] Co de Phone Number DAVID [facility] [place] [address] * eGFR (10/08/2024 12:44 AM REFINERY PROCESS ENGINEER) eGFR >90 >=60 mL/min/1. 73 m2 Comment: Interpretive Data Reference Interval Normal >/= 90 mL/min/1.73m2 Mildly decreased* 60 - 89 mL/min/1.73m2 Mildly to moderately decreased 45 - 59 mL/min/1.73m2 Moderately to severely decreased 30 - 44 mL/min/1.73m2 Severely decreased 15 - 29 mL/min/1.73m2 Kidney Failure < 15 mL/min/1.73m2 *Relative to young adult level Estimated glomerular filtration rate is determined by the 2020 CKD-EPI equation recommended by the National Kidney Foundation (A Unifying Approach to GFR Estimation: Recommendations of the NKF-ASK Task Force on Reassessing the Inclusion of Race in Diagnosing Kidney Disease, JASN 2020). The CKD-EPI equation should not be used for patients with unstable renal function and has not been validated in children and those over 70. Current interpretive data was last reviewed 2021. Blood 10/08/2024 12:4 4 AM REFINERY PROCESS ENGINEER 10/08/2024 1:05 AM REFINERY PROCESS ENGINEER us Marcus Vergara MD LAB BLOOD ORDERABLES Final Resu lt Performing Organization Address [facility] Co de Phone Number DAVID [facility] [place] [address] * (ABNORMAL) Manual Differential (10/08/2024 12:44 AM REFINERY PROCESS ENGINEER) Differential Manual Cells Counted 2 [facility] Neutrophil pct 0.0 % [facility] Comment: Interpretive Data Percent cell count reference ranges are not reported, since discordance with absolute values may lead to misinterpretation of CBC data. Current Interpretive Data was last revised on 2017. Lymphocyte pct 100.0 % [facility] Comment: Interpretive Data Percent cell count reference ranges are not reported, since discordance with absolute values may lead to misinterpretation of CBC data. Current Interpretive Data was last revised on 2017. RBC morphology Present(A) [facility] Anisocytosis Moderate(A ) [facility] Macrocytes 8-15/HPF(A ) [facility] Platelet estimate Decreased( A) [facility] Blood 10/08/2024 12:4 4 AM REFINERY PROCESS ENGINEER 10/08/2024 1:05 AM REFINERY PROCESS ENGINEER us Marcus Vergara MD LAB BLOOD ORDERABLES Edited Res ult - Final [facility] One [facility] Department [place] [address] * (ABNORMAL) CBC without differential (10/08/2024 12:44 AM REFINERY PROCESS ENGINEER) WBC 0.0(C) 3.8 - 9.9 K/cumm Comment:Consistent with prev ious reported value Hgb 11.4(L) 11.9 - 15.5 g/dL [facility] Hct 32.2(L) 35.6 - 45.5 % [facility] Plt 6(C) 150 - 400 K/cumm [facility] Comment:Critical result call ed to and read back by YOUSIF BUSCH RN on 10 08 2024 at 0127 to Noe Gloria. MPV 9.5 9.1 - 12.3 fL [facility] RBC 3.62(L) 3.90 - 5.20 M/cumm [facility] MCV 89.0 81.3 - 96.4 fL [facility] MCH 31.5 27.1 - 33.3 pg [facility] MCHC 35.4 32.3 - 35.7 g/dL [facility] RDW CV 16.3(H) 11.1 - 14.9 % [facility] RDW SD 53.2(H) 35.7 - 48.1 fL [facility] NRBC abs 0.00 0.00 - 0.01 K/cumm [facility] Blood 10/08/2024 12:4 4 AM REFINERY PROCESS ENGINEER 10/08/2024 1:05 AM REFINERY PROCESS ENGINEER Result [facility] us Marcus Vergara MD LAB BLOOD ORDERABLES Final Resu lt Performing Organization Address [facility] de Phone Number [facility] Department [place] [address] * Type and screen (10/08/2024 12:44 AM REFINERY PROCESS ENGINEER) Pathologist [facility] [place] Bing, indirect Negative ABO Rh A Positive [facility] Blood 10/08/2024 12:4 4 AM REFINERY PROCESS ENGINEER 10/08/2024 1:22 AM REFINERY PROCESS ENGINEER Narrative [facility] - 10/08/2024 4:30 AM REFINERY PROCESS ENGINEER Has the patient had Daratumumab or Isatuximab in the past 6 months?->Unknown Result [facility] us Marcus Vergara MD LAB BLOOD BANK TEST ORDERABLES Final Result Performing Organization Address [facility] de Phone Number [facility] Department [place] [address] * (ABNORMAL) Uric acid (10/08/2024 12:44 AM REFINERY PROCESS ENGINEER) Pathologist [facility] [place] Uric acid 1.1(L) 2.5 - 7.0 mg/dL Blood 10/08/2024 12:4 4 AM REFINERY PROCESS ENGINEER 10/08/2024 1:05 AM REFINERY PROCESS ENGINEER Narrative [facility] - 10/08/2024 1:34 AM REFINERY PROCESS ENGINEER Saturday and only. Morning draw. . us Marcus Vergara MD LAB BLOOD ORDERABLES Final Resu lt Performing Organization Address [facility] de Phone Number [facility] [address] * (ABNORMAL) Phosphorus (10/08/2024 12:44 AM REFINERY PROCESS ENGINEER) Phosphorus, pl 1.6(L) 2.3 - 4.5 mg/dL Blood 10/08/2024 12:4 4 AM REFINERY PROCESS ENGINEER 10/08/2024 1:05 AM REFINERY PROCESS ENGINEER us Marcus Vergara MD LAB BLOOD ORDERABLES Final Resu lt Performing Organization Address [facility] [place] [address] * Magnesium (10/08/2024 12:44 AM REFINERY PROCESS ENGINEER) Magnesium 1.9 1.4 - 2.5 mg/dL Blood 10/08/2024 12:4 4 AM REFINERY PROCESS ENGINEER 10/08/2024 1:05 AM REFINERY PROCESS ENGINEER Result [facility] us Marcus Vergara MD LAB BLOOD ORDERABLES Final Resu lt Performing Organization Address [facility] [place] [address] * (ABNORMAL) Lactate dehydrogenase (LD) (10/08/2024 12:44 AM REFINERY PROCESS ENGINEER) Lactate dehydrogenase (LDH) 321(H) 100 - 250 Units/L Blood 10/08/2024 12:4 4 AM REFINERY PROCESS ENGINEER 10/08/2024 1:05 AM REFINERY PROCESS ENGINEER Narrative [facility] - 10/08/2024 1:34 AM REFINERY PROCESS ENGINEER Saturday and only. Morning draw. us Marcus Vergara MD LAB BLOOD ORDERABLES Final Resu lt Performing Organization Address [facility] [place] [address] * (ABNORMAL) Comprehensive metabolic panel (10/08/2024 12:44 AM REFINERY PROCESS ENGINEER) Sodium 131(L) 135 - 145 mmol/L Potassium, pl 3.6 3.3 - 4.9 mmol/L [facility] Chloride 99 97 - 110 mmol/L [facility] CO2 25 22 - 32 mmol/L [facility] Anion gap 7 2 - 15 mmol/L [facility] BUN 9 6 - 25 mg/dL [facility] Creatinine 0.53(L) 0.60 - 1.10 mg/dL [facility] Glucose 102 70 - 199 mg/dL [facility] Comment: Interpretive Data Fasting glucose >/= 126 mg/dl is diagnostic for diabetes. Fasting is defined as no caloric intake for at least 8 hours. Fasting glucose between 100 mg/dl to 125 mg/dl is diagnostic of prediabetes. In a patient with classic symptoms of hyperglycemia or hyperglycemic crisis, a random glucose >/= 200 mg/dl is diagnostic for diabetes. In the absence of unequivocal hyperglycemia, results should be confirmed by repeat testing. The classification and Diagnosis of Diabetes Diabetes Care 2021; 46: S19-S40. Current interpretive data was last revised 2022. Calcium 7.2(L) 8.5 - 10.3 mg/dL [facility] Bilirubin, total 0.9 0.1 - 1.2 mg/dL [facility] Protein, pl 5.9(L) 6.5 - 8.5 g/dL [facility] Albumin 2.8(L) 3.5 - 5.0 g/dL [facility] Alk phos 72 40 - 130 Units/L [facility] ALT 38 7 - 45 Units/L [facility] AST 42 10 - 45 Units/L [facility] Blood 10/08/2024 12:4 4 AM REFINERY PROCESS ENGINEER 10/08/2024 1:05 AM REFINERY PROCESS ENGINEER Narrative [facility] - 10/08/2024 1:34 AM REFINERY PROCESS ENGINEER Saturday and only. Morning draw. us Marcus Vergara MD LAB BLOOD ORDERABLES Final Resu lt [facility] [place] [address] * Transfuse platelets (10/07/2024 6:02 AM REFINERY PROCESS ENGINEER) us Marcus Vergara MD BLOOD TRANSFUSION ORDERABLES Fi nal Result Performing Organization Address [facility] [place] [address] * Prepare platelets: 1 Units (10/07/2024 3:52 AM REFINERY PROCESS ENGINEER) Pathologist [facility] [place] Product code [id number] Unit Number [id number] [facility] Product Blood Type ANEG [facility] Dispense Status PRESUMED TRANSFUSED [facility] Blood Venous blood specimen / Unknown 10/07/2024 3:52 AM REFINERY PROCESS ENGINEER 10/07/2024 3:51 AM REFINERY PROCESS ENGINEER Narrative [facility] - 10/07/2024 8:00 PM REFINERY PROCESS ENGINEER Are special requirements needed? (all products are leukoreduced)->Yes Date required:-[id number] Special Req 1:-Irradiated PLT # of Units:-1-Units Reasons:-Stable, non-bleeding, plt < 10 K/cumm} Result [facility] Marcus Vergara MD BLOOD BANK PRODUCT ORDERABLES F inal Result Performing Organization Address [facility] de Phone Number [facility] [place] [address] * Immature platelet fraction (10/07/2024 1:20 AM REFINERY PROCESS ENGINEER) Pathologist [facility] [place] IPF 6.7 1.6 - 10.1 % Blood 10/07/2024 1:20 AM REFINERY PROCESS ENGINEER 10/07/2024 1:44 AM REFINERY PROCESS ENGINEER Result [facility] us Marcus Vegrara MD LAB BLOOD ORDERABLES Final Resu lt Performing Organization Address [facility] Co de Phone Number [facility] [place] [address] * eGFR (10/07/2024 1:20 AM REFINERY PROCESS ENGINEER) Pathologist [facility] [place] eGFR >90 >=60 mL/min/1. 73 m2 Comment: Interpretive Data Reference Interval Normal >/= 90 mL/min/1.73m2 Mildly decreased* 60 - 89 mL/min/1.73m2 Mildly to moderately decreased 45 - 59 mL/min/1.73m2 Moderately to severely decreased 30 - 44 mL/min/1.73m2 Severely decreased 15 - 29 mL/min/1.73m2 Kidney Failure < 15 mL/min/1.73m2 *Relative to young adult level Estimated glomerular filtration rate is determined by the 2020 CKD-EPI equation recommended by the National Kidney Foundation (A Unifying Approach to GFR Estimation: Recommendations of the NKF-ASK Task Force on Reassessing the Inclusion of Race in Diagnosing Kidney Disease, JASN 2020). The CKD-EPI equation should not be used for patients with unstable renal function and has not been validated in children and those over 70. Current interpretive data was last reviewed 2021. Blood 10/07/2024 1:20 AM REFINERY PROCESS ENGINEER 10/07/2024 1:38 AM REFINERY PROCESS ENGINEER us Marcus Vergara MD LAB BLOOD ORDERABLES Final Resu lt [facility] One [facility] Department [place] [address] * (ABNORMAL) Manual Differential (10/07/2024 1:20 AM REFINERY PROCESS ENGINEER) [facility] Differential Manual Cells Counted 8 [facility] Neutrophil pct 0.0 % [facility] Comment: Interpretive Data Percent cell count reference ranges are not reported, since discordance with absolute values may lead to misinterpretation of CBC data. Current Interpretive Data was last revised on 2017. Lymphocyte pct 100.0 % [facility] Comment: Interpretive Data Percent cell count reference ranges are not reported, since discordance with absolute values may lead to misinterpretation of CBC data. Current Interpretive Data was last revised on 2017. RBC morphology Present(A) [facility] Anisocytosis Slight(A) [facility] Macrocytes 3-7/HPF(A) [facility] Platelet estimate Decreased( A) [facility] Blood 10/07/2024 1:20 AM REFINERY PROCESS ENGINEER 10/07/2024 1:38 AM REFINERY PROCESS ENGINEER us Marcus Vergara MD LAB BLOOD ORDERABLES Edited Res ult - Final [facility] One [facility] Department [place] [address] * (ABNORMAL) CBC without differential (10/07/2024 1:20 AM REFINERY PROCESS ENGINEER) Pathologist [facility] [place] WBC 0.0(C) 3.8 - 9.9 K/cumm Comment:Consistent with prev ious reported value Hgb 8.6(L) 11.9 - 15.5 g/dL [facility] Hct 24.8(L) 35.6 - 45.5 % [facility] Plt 3(C) 150 - 400 K/cumm [facility] Comment: Platelet count confirmed by additional testing. Critical platelet count threshold determined by patient location: Outpatient:<50 K-cumm , Inpatient:<20 K-cumm , BMT service:<10 K-cumm nam smith rn. Critical result called to and read back by NAM SMITH RN on 10 07 2024 at 0202 to Kristin Matute. MPV Not Measured 9.1 - 12.3 fL [facility] RBC 2.75(L) 3.90 - 5.20 M/cumm [facility] MCV 90.2 81.3 - 96.4 fL [facility] MCH 31.3 27.1 - 33.3 pg [facility] MCHC 34.7 32.3 - 35.7 g/dL [facility] RDW CV 17.0(H) 11.1 - 14.9 % [facility] RDW SD 55.8(H) 35.7 - 48.1 fL [facility] NRBC abs 0.00 0.00 - 0.01 K/cumm [facility] Blood 10/07/2024 1:20 AM REFINERY PROCESS ENGINEER 10/07/2024 1:38 AM REFINERY PROCESS ENGINEER us Marcus Vergara MD LAB BLOOD ORDERABLES Final Resu lt Performing Organization Address City/[facility]/[place] [address] * Phosphorus (10/07/2024 1:20 AM REFINERY PROCESS ENGINEER) Phosphorus, pl 2.3 2.3 - 4.5 mg/dL Blood 10/07/2024 1:20 AM REFINERY PROCESS ENGINEER 10/07/2024 1:38 AM REFINERY PROCESS ENGINEER us Marcus Vergara MD LAB BLOOD ORDERABLES Final Resu lt Performing Organization Address [facility] [place] [address] * Magnesium (10/07/2024 1:20 AM REFINERY PROCESS ENGINEER) Pathologist [facility] [place] Magnesium 1.8 1.4 - 2.5 mg/dL Blood 10/07/2024 1:20 AM REFINERY PROCESS ENGINEER 10/07/2024 1:38 AM REFINERY PROCESS ENGINEER us Marcus Vergara MD LAB BLOOD ORDERABLES Final Resu lt Performing Organization Address [facility] [place] [address] * (ABNORMAL) Basic metabolic panel (10/07/2024 1:20 AM REFINERY PROCESS ENGINEER) Sodium 132(L) 135 - 145 mmol/L Potassium, pl 3.7 3.3 - 4.9 mmol/L [facility] Chloride 101 97 - 110 mmol/L [facility] CO2 25 22 - 32 mmol/L [facility] Anion gap 6 2 - 15 mmol/L [facility] BUN 12 6 - 25 mg/dL [facility] Creatinine 0.51(L) 0.60 - 1.10 mg/dL [facility] Glucose 139 70 - 199 mg/dL [facility] Comment: Interpretive Data Fasting glucose >/= 126 mg/dl is diagnostic for diabetes. Fasting is defined as no caloric intake for at least 8 hours. Fasting glucose between 100 mg/dl to 125 mg/dl is diagnostic of prediabetes. In a patient with classic symptoms of hyperglycemia or hyperglycemic crisis, a random glucose >/= 200 mg/dl is diagnostic for diabetes. In the absence of unequivocal hyperglycemia, results should be confirmed by repeat testing. The classification and Diagnosis of Diabetes Diabetes Care 2021; 46: S19-S40. Current interpretive data was last revised 2022. Calcium 7.0(L) 8.5 - 10.3 mg/dL [facility] Blood 10/07/2024 1:20 AM REFINERY PROCESS ENGINEER 10/07/2024 1:38 AM REFINERY PROCESS ENGINEER Marcus Vergara MD LAB BLOOD ORDERABLES Final Resu lt Performing Organization Address City/[facility]/ZIP Co de Phone Number [facility] Department [place] [address] * Transfuse platelets (10/06/2024 3:55 PM REFINERY PROCESS ENGINEER) Marcus Vergara MD BLOOD TRANSFUSION ORDERABLES Fi nal Result Performing Organization Address [facility] Co de Phone Number [facility] Department [place] [address] * XR Abdomen Ap 1 Vw (10/06/2024 3:44 PM REFINERY PROCESS ENGINEER) Anatomical Region Laterality Modality Body, Abdomen N/A Computed Radiogr aphy 10/06/2024 4:12 PM REFINERY PROCESS ENGINEER Impressions 10/06/2024 4:26 PM REFINERY PROCESS ENGINEER The bowel gas pattern is within normal limits. There are small bilateral pleural effusions with underlying atelectasis. Calcified left hilar lymph nodes are present. Partially imaged central line tip projects over the superior vena cava. Dictated by: Jimi Ott MD The radiology attending physician has personally reviewed this study, and had reviewed and/or edited this written report and agrees with it. Electronically signed by: Lee Mathis M.D. Narrative 10/06/2024 4:26 PM REFINERY PROCESS ENGINEER EXAMINATION: Abdomen, one view. HISTORY: Abdominal pain. COMPARISON: CT 10/02/2024 Procedure Note Lee Mathis MD - 10/06/2024 EXAMINATION: Abdomen, one view. HISTORY: Abdominal pain. COMPARISON: CT 10/02/2024 IMPRESSION: The bowel gas pattern is within normal limits. There are small bilateral pleural effusions with underlying atelectasis. Calcified left hilar lymph nodes are present. Partially imaged central line tip projects over the superior vena cava. Dictated by: Jimi Ott MD The radiology attending physician has personally reviewed this study, and had reviewed and/or edited this written report and agrees with it. Electronically signed by: eLe Mathis M.D. Marcus Vergara MD IMG XR PROCEDURES Final Result * C. difficile testing Stool (10/06/2024 3:22 PM REFINERY PROCESS ENGINEER) [facility] Result Negative Negative Toxin Result Negative Negative [facility] C. diff result Negative, free toxin Negative, free toxin [facility] C. diff interp Negative for toxigenic Clostridioides (Clostridium) difficile. Analysis was performed using a glutamate dehydrogenase antigen detection assay combined with a C. difficile toxin detection assay. [facility] Stool 10/06/2024 3:22 PM REFINERY PROCESS ENGINEER 10/06/2024 5:06 PM REFINERY PROCESS ENGINEER Marcus Vergara MD LAB MICROBIOLOGY - GENERAL JUAN GONZALEZ Final Result [facility] One [facility] Department [place] [address] * Norovirus PCR Stool (10/06/2024 3:22 PM REFINERY PROCESS ENGINEER) [facility] Norovirus GI RNA Not Detected Not Detected [facility] Norovirus GII RNA Not Detected Not Detected [facility] Comment: Interpretive data: Testing performed at the [facility] using the Polyvore Xpert Norovirus Assay. This assay uses nucleic acid amplification to detect RNA from norovirus. This test is cleared by the [place] Food and Drug Administration for unformed stool specimens. The performance characteristics for unformed stool specimens have been verified by the performing laboratory. The performance characteristics of rectal swab specimens have also been validated and verified by the performing laboratory. Positive Xpert Norovirus results do not rule out other causes of infectious diarrhea. Assay interference may be observed in the presence of Barium sulfate and Benzalkonium chloride. Mutations or polymorphisms in primer or probe binding regions may affect detection of new or unknown norovirus variants resulting in a false negative result. Results from the Xpert Norovirus Assay should be interpreted in conjunction with other laboratory and clinical data available to the clinician. Current interpretive data was last revised on 2024. Stool 10/06/2024 3:22 PM REFINERY PROCESS ENGINEER 10/06/2024 5:06 PM REFINERY PROCESS ENGINEER Marcus Vergara MD LAB MICROBIOLOGY - GENERAL JUAN GONZALEZ Final Result Performing Organization Address City/[facility] Co de Phone Number [facility] Department [place] [address] [facility] * Infection Prevention VRE Culture Stool (10/06/2024 3:21 PM REFINERY PROCESS ENGINEER) Report Final Report: Negative Stool 10/06/2024 3:21 PM REFINERY PROCESS ENGINEER 10/06/2024 7:15 PM REFINERY PROCESS ENGINEER Narrative DAVID [facility] - 10/09/2024 7:12 AM REFINERY PROCESS ENGINEER Surveillance culture for Infection Prevention purposes only; results indicate colonization, not infection requiring treatment. Testing performed by [facility] ([phone]). Marcus Vergara MD LAB MICROBIOLOGY - GENERAL JUAN GONZALEZ Final Result Performing Organization Address City/[facility] Co de Phone Number [facility] Department [place] [address] * Transfuse RBC (10/06/2024 9:03 AM REFINERY PROCESS ENGINEER) Blood Marcus Vergara MD BLOOD TRANSFUSION ORDERABLES Fi nal Result Performing Organization Address [facility] [place] [address] * Prepare platelets: 1 Units (10/06/2024 4:35 AM REFINERY PROCESS ENGINEER) Product code [id number] Unit Number [id number]- A [facility] Product Blood Type APOS [facility] Dispense Status PRESUMED TRANSFUSED [facility] Blood Venous blood specimen / Unknown 10/06/2024 4:35 AM REFINERY PROCESS ENGINEER 10/06/2024 4:35 AM REFINERY PROCESS ENGINEER Narrative [facility] - 10/07/2024 6:00 AM REFINERY PROCESS ENGINEER Are special requirements needed? (all products are leukoreduced)->Yes Date required:-20240929 Special Req 1:-Irradiated PLT # of Units:-1-Units Reasons:-Stable, non-bleeding, plt < 10 K/cumm} Marcus Vergara MD BLOOD BANK PRODUCT ORDERABLES F inal Result Performing Organization Address City/[facility] Co de Phone Number [facility] Department [place] [address] * Prepare RBC: 1 Units (10/06/2024 4:35 AM REFINERY PROCESS ENGINEER) Product code [id number] Unit Number [id number]- 2 [facility] Product Blood Type APOS [facility] Dispense Status PRESUMED TRANSFUSED [facility] Blood Venous blood specimen / Unknown 10/06/2024 4:35 AM REFINERY PROCESS ENGINEER 10/06/2024 4:35 AM REFINERY PROCESS ENGINEER Narrative [facility] - 10/06/2024 8:00 PM REFINERY PROCESS ENGINEER Are special requirements needed? (All products are leukoreduced and CMV- safe)- >Yes Date required:-20240929 Special Req 1:-Irradiated LRRBC # of [id number] Reasons:-BMT, Hgb <8 g/dL} us Marcus Vergara MD BLOOD BANK PRODUCT ORDERABLES F inal Result Performing Organization Address [facility] Co de Phone Number [facility] [place] [address] * Immature platelet fraction (10/06/2024 1:56 AM REFINERY PROCESS ENGINEER) IPF 8.9 1.6 - 10.1 % Blood 10/06/2024 1:56 AM REFINERY PROCESS ENGINEER 10/06/2024 2:28 AM REFINERY PROCESS ENGINEER us Marcus Vergara MD LAB BLOOD ORDERABLES Final Resu lt Performing Organization Address [facility] de Phone Number [facility] [place] [address] * eGFR (10/06/2024 1:56 AM REFINERY PROCESS ENGINEER) [facility] eGFR >90 >=60 mL/min/1. 73 m2 Comment: Interpretive Data Reference Interval Normal >/= 90 mL/min/1.73m2 Mildly decreased* 60 - 89 mL/min/1.73m2 Mildly to moderately decreased 45 - 59 mL/min/1.73m2 Moderately to severely decreased 30 - 44 mL/min/1.73m2 Severely decreased 15 - 29 mL/min/1.73m2 Kidney Failure < 15 mL/min/1.73m2 *Relative to young adult level Estimated glomerular filtration rate is determined by the 2020 CKD-EPI equation recommended by the National Kidney Foundation (A Unifying Approach to GFR Estimation: Recommendations of the NKF-ASK Task Force on Reassessing the Inclusion of Race in Diagnosing Kidney Disease, JASN 2020). The CKD-EPI equation should not be used for patients with unstable renal function and has not been validated in children and those over 70. Current interpretive data was last reviewed 2021. Blood 10/06/2024 1:56 AM REFINERY PROCESS ENGINEER 10/06/2024 2:06 AM REFINERY PROCESS ENGINEER us Marcus Vergara MD LAB BLOOD ORDERABLES Final Resu lt DAVID GARCÍA One [facility] Department [place] [address] * (ABNORMAL) Manual Differential (10/06/2024 1:56 AM REFINERY PROCESS ENGINEER) Differential Manual Cells Counted 14 [facility] Neutrophil abs 0.0(C) 1.5 - 6.5 K/cumm [facility] Comment:BMT patient, result not critical Lymphocyte abs 0.1(L) 0.8 - 3.3 K/cumm [facility] Monocyte abs 0.0(L) 0.2 - 0.8 K/cumm [facility] Neutrophil pct 28.6 % [facility] Comment: Interpretive Data Percent cell count reference ranges are not reported, since discordance with absolute values may lead to misinterpretation of CBC data. Current Interpretive Data was last revised on 2017. Lymphocyte pct 64.3 % [facility] Comment: Interpretive Data Percent cell count reference ranges are not reported, since discordance with absolute values may lead to misinterpretation of CBC data. Current Interpretive Data was last revised on 2017. Monocyte pct 7.1 % [facility] Comment: Interpretive Data Percent cell count reference ranges are not reported, since discordance with absolute values may lead to misinterpretation of CBC data. Current Interpretive Data was last revised on 2017. RBC morphology Present(A) [facility] Anisocytosis Moderate(A ) [facility] Macrocytes 8-15/HPF(A ) [facility] Platelet estimate Decreased( A) [facility] Blood 10/06/2024 1:56 AM REFINERY PROCESS ENGINEER 10/06/2024 2:24 AM REFINERY PROCESS ENGINEER us Marcus Vergara MD LAB BLOOD ORDERABLES Edited Res ult - Final DAVID GARCÍA [facility] Department [place] [address] * (ABNORMAL) CBC without differential (10/06/2024 1:56 AM REFINERY PROCESS ENGINEER) WBC 0.1(C) 3.8 - 9.9 K/cumm Comment:Consistent with prev ious reported value Hgb 6.8(L) 11.9 - 15.5 g/dL [facility] Hct 19.6(L) 35.6 - 45.5 % [facility] Plt 5(C) 150 - 400 K/cumm [facility] Comment:Critical result call ed to and read back by YOUSIF BUSCH RN on 10 06 2024 at 0317 to Noe Gloria. MPV 9.9 9.1 - 12.3 fL [facility] RBC 2.10(L) 3.90 - 5.20 M/cumm [facility] MCV 93.3 81.3 - 96.4 fL [facility] MCH 32.4 27.1 - 33.3 pg [facility] MCHC 34.7 32.3 - 35.7 g/dL [facility] RDW CV 16.3(H) 11.1 - 14.9 % [facility] RDW SD 56.0(H) 35.7 - 48.1 fL [facility] NRBC abs 0.00 0.00 - 0.01 K/cumm [facility] Blood 10/06/2024 1:56 AM REFINERY PROCESS ENGINEER 10/06/2024 2:24 AM REFINERY PROCESS ENGINEER us Marcus Vergara MD LAB BLOOD ORDERABLES Final Resu lt [facility] One [facility] Department [place] [address] * Phosphorus (10/06/2024 1:56 AM REFINERY PROCESS ENGINEER) Pathologist [facility] Phosphorus, pl 3.0 2.3 - 4.5 mg/dL Blood 10/06/2024 1:56 AM REFINERY PROCESS ENGINEER 10/06/2024 2:06 AM REFINERY PROCESS ENGINEER us Marcus Vergara MD LAB BLOOD ORDERABLES Final Resu lt [facility] One [facility] Department [place] [address] * Magnesium (10/06/2024 1:56 AM REFINERY PROCESS ENGINEER) [facility] Magnesium 1.8 1.4 - 2.5 mg/dL Blood 10/06/2024 1:56 AM REFINERY PROCESS ENGINEER 10/06/2024 2:06 AM REFINERY PROCESS ENGINEER us Marcus Vergara MD LAB BLOOD ORDERABLES Final Resu lt Performing Organization Address [facility] Co de Phone Number [facility] [place] [address] * (ABNORMAL) Basic metabolic panel (10/06/2024 1:56 AM REFINERY PROCESS ENGINEER) [facility] Sodium 133(L) 135 - 145 mmol/L Potassium, pl 4.1 3.3 - 4.9 mmol/L [facility] Chloride 99 97 - 110 mmol/L [facility] CO2 28 22 - 32 mmol/L [facility] Anion gap 6 2 - 15 mmol/L [facility] BUN 16 6 - 25 mg/dL [facility] Creatinine 0.62 0.60 - 1.10 mg/dL [facility] Glucose 140 70 - 199 mg/dL [facility] Comment: Interpretive Data Fasting glucose >/= 126 mg/dl is diagnostic for diabetes. Fasting is defined as no caloric intake for at least 8 hours. Fasting glucose between 100 mg/dl to 125 mg/dl is diagnostic of prediabetes. In a patient with classic symptoms of hyperglycemia or hyperglycemic crisis, a random glucose >/= 200 mg/dl is diagnostic for diabetes. In the absence of unequivocal hyperglycemia, results should be confirmed by repeat testing. The classification and Diagnosis of Diabetes Diabetes Care 2021; 46: S19-S40. Current interpretive data was last revised 2022. Calcium 7.3(L) 8.5 - 10.3 mg/dL [facility] Blood 10/06/2024 1:56 AM REFINERY PROCESS ENGINEER 10/06/2024 2:06 AM REFINERY PROCESS ENGINEER Result Roseanna Vergara MD LAB BLOOD ORDERABLES Final Resu lt Performing Organization Address [facility] Co de Phone Number DAVID [facility] Department [place] [address] * Transfuse platelets (10/05/2024 3:52 PM REFINERY PROCESS ENGINEER) Result Roseanna Vergara MD BLOOD TRANSFUSION ORDERABLES Fi nal Result Performing Organization Address [facility] Co de Phone Number [facility] [place] [address] * eGFR (10/05/2024 11:03 AM REFINERY PROCESS ENGINEER) eGFR >90 >=60 mL/min/1. 73 m2 Comment: Interpretive Data Reference Interval Normal >/= 90 mL/min/1.73m2 Mildly decreased* 60 - 89 mL/min/1.73m2 Mildly to moderately decreased 45 - 59 mL/min/1.73m2 Moderately to severely decreased 30 - 44 mL/min/1.73m2 Severely decreased 15 - 29 mL/min/1.73m2 Kidney Failure < 15 mL/min/1.73m2 *Relative to young adult level Estimated glomerular filtration rate is determined by the 2020 CKD-EPI equation recommended by the National Kidney Foundation (A Unifying Approach to GFR Estimation: Recommendations of the NKF-ASK Task Force on Reassessing the Inclusion of Race in Diagnosing Kidney Disease, JASN 2020). The CKD-EPI equation should not be used for patients with unstable renal function and has not been validated in children and those over 70. Current interpretive data was last reviewed 2021. Blood 10/05/2024 11:0 3 AM REFINERY PROCESS ENGINEER 10/05/2024 11:27 AM REFINERY PROCESS ENGINEER Result Roseanna Vergara MD LAB BLOOD ORDERABLES Final Resu lt Performing Organization Address [facility] Co de Phone Number [facility] [place] [address] * (ABNORMAL) Uric acid (10/05/2024 11:03 AM REFINERY PROCESS ENGINEER) Uric acid 1.8(L) 2.5 - 7.0 mg/dL Blood 10/05/2024 11:0 3 AM REFINERY PROCESS ENGINEER 10/05/2024 11:27 AM REFINERY PROCESS ENGINEER us Marcus Vergara MD LAB BLOOD ORDERABLES Final Resu lt Performing Organization Address City/[facility] Co de Phone Number [facility] [place] [address] * Phosphorus (10/05/2024 11:03 AM REFINERY PROCESS ENGINEER) Pathologist [facility] [place] Phosphorus, pl 3.5 2.3 - 4.5 mg/dL Blood 10/05/2024 11:0 3 AM REFINERY PROCESS ENGINEER 10/05/2024 11:27 AM REFINERY PROCESS ENGINEER us Marcus Vergara MD LAB BLOOD ORDERABLES Final Resu lt Performing Organization Address [facility] Co de Phone Number [facility] [place] [address] * (ABNORMAL) Lactate dehydrogenase (LD) (10/05/2024 11:03 AM REFINERY PROCESS ENGINEER) Lactate dehydrogenase (LDH) 285(H) 100 - 250 Units/L Blood 10/05/2024 11:0 3 AM REFINERY PROCESS ENGINEER 10/05/2024 11:27 AM REFINERY PROCESS ENGINEER us Marcus Vergara MD LAB BLOOD ORDERABLES Final Resu lt Performing Organization Address [facility] de Phone Number [facility] [place] [address] * (ABNORMAL) Basic metabolic panel (10/05/2024 11:03 AM REFINERY PROCESS ENGINEER) Sodium 137 135 - 145 mmol/L Potassium, pl 3.6 3.3 - 4.9 mmol/L [facility] Chloride 103 97 - 110 mmol/L [facility] CO2 24 22 - 32 mmol/L [facility] Anion gap 10 2 - 15 mmol/L [facility] BUN 20 6 - 25 mg/dL [facility] Creatinine 0.68 0.60 - 1.10 mg/dL [facility] Glucose 137 70 - 199 mg/dL [facility] Comment: Interpretive Data Fasting glucose >/= 126 mg/dl is diagnostic for diabetes. Fasting is defined as no caloric intake for at least 8 hours. Fasting glucose between 100 mg/dl to 125 mg/dl is diagnostic of prediabetes. In a patient with classic symptoms of hyperglycemia or hyperglycemic crisis, a random glucose >/= 200 mg/dl is diagnostic for diabetes. In the absence of unequivocal hyperglycemia, results should be confirmed by repeat testing. The classification and Diagnosis of Diabetes Diabetes Care 2021; 46: S19-S40. Current interpretive data was last revised 2022. Calcium 7.3(L) 8.5 - 10.3 mg/dL [facility] Blood 10/05/2024 11:0 3 AM REFINERY PROCESS ENGINEER 10/05/2024 11:27 AM REFINERY PROCESS ENGINEER Marcus Vergara MD LAB BLOOD ORDERABLES Final Resu lt Performing Organization Address [facility] Co de Phone Number [facility] Department [place] [address] * Transfuse RBC (10/05/2024 8:16 AM REFINERY PROCESS ENGINEER) Blood us Marcus Vergara MD BLOOD TRANSFUSION ORDERABLES Fi nal Result Performing Organization Address City/[facility]/ZIP Co de Phone Number [facility] [place] [address] * Prepare platelets: 1 Units (10/05/2024 5:30 AM REFINERY PROCESS ENGINEER) [facility] Signature Product code [id number] Unit Number [id number] V [facility] Product Blood Type APOS [facility] Dispense Status PRESUMED TRANSFUSED [facility] Blood Venous blood specimen / Unknown 10/05/2024 5:30 AM REFINERY PROCESS ENGINEER 10/05/2024 5:30 AM REFINERY PROCESS ENGINEER Narrative [facility] - 10/06/2024 12:55 AM REFINERY PROCESS ENGINEER Are special requirements needed? (all products are leukoreduced)->Yes Date required:-20240929 Special Req 1:-Irradiated PLT # of Units:-1-Units Reasons:-Stable, non-bleeding, plt < 10 K/cumm} Marcus Vergara MD BLOOD BANK PRODUCT ORDERABLES F inal Result Performing Organization Address City/[facility]/ZIP Co de Phone Number [facility] [employer] [place], [place] [id number] * Prepare RBC: 1 Units (10/05/2024 5:30 AM REFINERY PROCESS ENGINEER) Pathologist [facility] [place] Product code [id number] Unit Number [id number] D [facility] Product Blood Type ANEG [facility] Dispense Status PRESUMED TRANSFUSED [facility] Blood Venous blood specimen / Unknown 10/05/2024 5:30 AM REFINERY PROCESS ENGINEER 10/05/2024 5:30 AM REFINERY PROCESS ENGINEER Narrative [facility] - 10/05/2024 8:00 PM REFINERY PROCESS ENGINEER Are special requirements needed? (All products are leukoreduced and CMV- safe)- >Yes Date required:-[id number] Special Req 1:-Irradiated LRRBC # of [id number] Reasons:-BMT, Hgb <8 g/dL} Marcus Vergara MD BLOOD BANK PRODUCT ORDERABLES F inal Result [facility] Department [place] [address] * (ABNORMAL) Immature platelet fraction (10/05/2024 3:42 AM REFINERY PROCESS ENGINEER) IPF 11.9(H) 1.6 - 10.1 % Blood 10/05/2024 3:42 AM REFINERY PROCESS ENGINEER 10/05/2024 4:31 AM REFINERY PROCESS ENGINEER Marcus Vergara MD LAB BLOOD ORDERABLES Final Resu lt Performing Organization Address City/[facility] Co de Phone Number [facility] Department [place] [address] * eGFR (10/05/2024 3:42 AM REFINERY PROCESS ENGINEER) Pathologist [facility] [place] eGFR >90 >=60 mL/min/1. 73 m2 Comment: Interpretive Data Reference Interval Normal >/= 90 mL/min/1.73m2 Mildly decreased* 60 - 89 mL/min/1.73m2 Mildly to moderately decreased 45 - 59 mL/min/1.73m2 Moderately to severely decreased 30 - 44 mL/min/1.73m2 Severely decreased 15 - 29 mL/min/1.73m2 Kidney Failure < 15 mL/min/1.73m2 *Relative to young adult level Estimated glomerular filtration rate is determined by the 2020 CKD-EPI equation recommended by the National Kidney Foundation (A Unifying Approach to GFR Estimation: Recommendations of the NKF-ASK Task Force on Reassessing the Inclusion of Race in Diagnosing Kidney Disease, JASN 2020). The CKD-EPI equation should not be used for patients with unstable renal function and has not been validated in children and those over 70. Current interpretive data was last reviewed 2021. Blood 10/05/2024 3:42 AM REFINERY PROCESS ENGINEER 10/05/2024 4:28 AM REFINERY PROCESS ENGINEER Marcus Vergara MD LAB BLOOD ORDERABLES Final Resu lt Performing Organization Address City/[facility]/ZIP Co de Phone Number DAVID GARCÍA One [facility] Department [place] [address] * (ABNORMAL) Manual Differential (10/05/2024 3:42 AM REFINERY PROCESS ENGINEER) Pathologist [facility] [place] Differential Manual Cells Counted 75 [facility] Neutrophil abs 0.2(C) 1.5 - 6.5 K/cumm [facility] Comment:BMT patient, result not critical Imm gran abs 0.0 0.0 - 0.1 K/cumm [facility] Lymphocyte abs 0.1(L) 0.8 - 3.3 K/cumm [facility] Monocyte abs 0.0(L) 0.2 - 0.8 K/cumm [facility] Neutrophil pct 58.6 % [facility] Comment: Interpretive Data Percent cell count reference ranges are not reported, since discordance with absolute values may lead to misinterpretation of CBC data. Current Interpretive Data was last revised on 2017. Lymphocyte pct 34.7 % [facility] Comment: Interpretive Data Percent cell count reference ranges are not reported, since discordance with absolute values may lead to misinterpretation of CBC data. Current Interpretive Data was last revised on 2017. Monocyte pct 6.7 % [facility] Comment: Interpretive Data Percent cell count reference ranges are not reported, since discordance with absolute values may lead to misinterpretation of CBC data. Current Interpretive Data was last revised on 2017. RBC morphology Present(A) [facility] Anisocytosis Marked(A) [facility] Macrocytes > 15/HPF(A) [facility] Platelet estimate Decreased( A) [facility] Blood 10/05/2024 3:42 AM REFINERY PROCESS ENGINEER 10/05/2024 4:28 AM REFINERY PROCESS ENGINEER us Marcus Vergara MD LAB BLOOD ORDERABLES Edited Res ult - Final [facility] One [facility] Department [place] [address] * (ABNORMAL) aPTT (10/05/2024 3:42 AM REFINERY PROCESS ENGINEER) aPTT 27(L) 28 - 38 sec Comment: Interpretive Data Heparin therapeutic range: 66.0 - 100.0 seconds. Range based on correlation with therapeutic heparin activity range of 0.3 - 0.7 Units/mL. Current interpretive data was last revised on 2023. Blood 10/05/2024 3:42 AM REFINERY PROCESS ENGINEER 10/05/2024 4:25 AM REFINERY PROCESS ENGINEER Marcus Vergara MD LAB BLOOD ORDERABLES Final Resu lt [facility]ID [facility] One [facility] Department [place] [address] * (ABNORMAL) Protime-INR (10/05/2024 3:42 AM REFINERY PROCESS ENGINEER) PT 14.5(H) 9.7 - 13.0 sec INR 1.33(H) 0.90 - 1.20 [facility] Comment: Interpretive data Oral anticoagulant therapeutic ranges: Venous thromboembolism prophylaxis or treatment: 2.0-3.0 CARDIOLOGY Standard range: 2.0-3.0 High-intensity range: 2.5-3.5 Refer to indication-specific guidelines for appropriate target ranges for prosthetic heart valve replacement. Current interpretive data was last revised on 2019. Blood 10/05/2024 3:42 AM REFINERY PROCESS ENGINEER 10/05/2024 4:25 AM REFINERY PROCESS ENGINEER Marcus Vergara MD LAB BLOOD ORDERABLES Final Resu lt [facility] One [facility] Department [place] [address] * (ABNORMAL) CBC without differential (10/05/2024 3:42 AM REFINERY PROCESS ENGINEER) WBC 0.4(C) 3.8 - 9.9 K/cumm Comment:Critical result call ed to and read back by RHEA WORKMAN RN on 10 05 2024 at 0500 to [facility]. Hgb 7.6(L) 11.9 - 15.5 g/dL [facility] Comment:Large delta with no apparant cause, correlate with clinical context and redraw if indicated. chemo. rhea workman rn Hct 22.0(L) 35.6 - 45.5 % DAVID [facility] Plt 5(C) 150 - 400 K/cumm [facility] Comment:rhea workman rn. C ritical result called to and read back by RHEA WORKMAN RN on 10 05 2024 at 0500 to Kristin Matute. MPV Not Measured 9.1 - 12.3 fL [facility] RBC 2.26(L) 3.90 - 5.20 M/cumm [facility] MCV 97.3(H) 81.3 - 96.4 fL [facility] MCH 33.6(H) 27.1 - 33.3 pg [facility] [facility] MCHC 34.5 32.3 - 35.7 g/dL [facility] RDW CV 15.3(H) 11.1 - 14.9 % [facility] RDW SD 54.4(H) 35.7 - 48.1 fL [facility] NRBC abs 0.00 0.00 - 0.01 K/cumm [facility] Blood 10/05/2024 3:42 AM REFINERY PROCESS ENGINEER 10/05/2024 4:28 AM REFINERY PROCESS ENGINEER Marcus Vergara MD LAB BLOOD ORDERABLES Final Resu lt Performing Organization Address City/[facility]/ZIP Co de Phone Number [facility] Department [place] [address] * Type and screen (10/05/2024 3:42 AM REFINERY PROCESS ENGINEER) Pathologist [facility] [place] ABO Rh A Positive Bing, indirect Negative [facility] Blood 10/05/2024 3:42 AM REFINERY PROCESS ENGINEER 10/05/2024 4:23 AM REFINERY PROCESS ENGINEER Narrative [facility] - 10/05/2024 5:26 AM REFINERY PROCESS ENGINEER Has the patient had Daratumumab or Isatuximab in the past 6 months?->Unknown Marcus Vergara MD LAB BLOOD BANK TEST ORDERABLES Final Result Performing Organization Address City/[facility]/ZIP Co de Phone Number [facility] [place] [address] * (ABNORMAL) Uric acid (10/05/2024 3:42 AM REFINERY PROCESS ENGINEER) Uric acid 1.9(L) 2.5 - 7.0 mg/dL Blood 10/05/2024 3:42 AM REFINERY PROCESS ENGINEER 10/05/2024 4:28 AM REFINERY PROCESS ENGINEER Narrative [facility] - 10/05/2024 4:58 AM REFINERY PROCESS ENGINEER Saturday and only. Morning draw. . us Marcus Vergara MD LAB BLOOD ORDERABLES Final Resu lt Performing Organization Address City/[facility] Co de Phone Number [facility] [place] [address] * (ABNORMAL) Uric acid (10/05/2024 3:42 AM REFINERY PROCESS ENGINEER) Uric acid 1.9(L) 2.5 - 7.0 mg/dL Blood 10/05/2024 3:42 AM REFINERY PROCESS ENGINEER 10/05/2024 4:28 AM REFINERY PROCESS ENGINEER us Marcus Vergara MD LAB BLOOD ORDERABLES Final Resu lt Performing Organization Address [facility] Co de Phone Number [facility] [place] [address] * Phosphorus (10/05/2024 3:42 AM REFINERY PROCESS ENGINEER) Phosphorus, pl 3.3 2.3 - 4.5 mg/dL Blood 10/05/2024 3:42 AM REFINERY PROCESS ENGINEER 10/05/2024 4:28 AM REFINERY PROCESS ENGINEER us Marcus Vergara MD LAB BLOOD ORDERABLES Final Resu lt Performing Organization Address City/[facility] Co de Phone Number [facility] [place] [address] * Phosphorus (10/05/2024 3:42 AM REFINERY PROCESS ENGINEER) Phosphorus, pl 3.4 2.3 - 4.5 mg/dL Blood 10/05/2024 3:42 AM REFINERY PROCESS ENGINEER 10/05/2024 4:28 AM REFINERY PROCESS ENGINEER us Marcus Vergara MD LAB BLOOD ORDERABLES Final Resu lt Performing Organization Address [facility] [place] [address] * Magnesium (10/05/2024 3:42 AM REFINERY PROCESS ENGINEER) Magnesium 2.0 1.4 - 2.5 mg/dL Blood 10/05/2024 3:42 AM REFINERY PROCESS ENGINEER 10/05/2024 4:28 AM REFINERY PROCESS ENGINEER us Marcus Vergara MD LAB BLOOD ORDERABLES Final Resu Performing Organization Address [facility] [place] [address] * (ABNORMAL) Lactate dehydrogenase (LD) (10/05/2024 3:42 AM REFINERY PROCESS ENGINEER) Lactate dehydrogenase (LDH) 272(H) 100 - 250 Units/L Blood 10/05/2024 3:42 AM REFINERY PROCESS ENGINEER 10/05/2024 4:28 AM REFINERY PROCESS ENGINEER Narrative [facility] - 10/05/2024 4:58 AM REFINERY PROCESS ENGINEER Saturday and only. Morning draw. us Marcus Vergara MD LAB BLOOD ORDERABLES Final Resu lt Performing Organization Address [facility] de Phone Number [facility] [place] [address] * (ABNORMAL) Lactate dehydrogenase (LD) (10/05/2024 3:42 AM REFINERY PROCESS ENGINEER) Lactate dehydrogenase (LDH) 275(H) 100 - 250 Units/L Blood 10/05/2024 3:42 AM REFINERY PROCESS ENGINEER 10/05/2024 4:28 AM REFINERY PROCESS ENGINEER us Marcus Vergara MD LAB BLOOD ORDERABLES Final Resu lt [facility] Department [place] [address] * (ABNORMAL) Comprehensive metabolic panel (10/05/2024 3:42 AM REFINERY PROCESS ENGINEER) Sodium 139 135 - 145 mmol/L Potassium, pl 4.1 3.3 - 4.9 mmol/L [facility] Chloride 104 97 - 110 mmol/L [facility] CO2 28 22 - 32 mmol/L [facility] Anion gap 7 2 - 15 mmol/L [facility] BUN 24 6 - 25 mg/dL [facility] Creatinine 0.70 0.60 - 1.10 mg/dL [facility] Glucose 133 70 - 199 mg/dL [facility] Comment: Interpretive Data Fasting glucose >/= 126 mg/dl is diagnostic for diabetes. Fasting is defined as no caloric intake for at least 8 hours. Fasting glucose between 100 mg/dl to 125 mg/dl is diagnostic of prediabetes. In a patient with classic symptoms of hyperglycemia or hyperglycemic crisis, a random glucose >/= 200 mg/dl is diagnostic for diabetes. In the absence of unequivocal hyperglycemia, results should be confirmed by repeat testing. The classification and Diagnosis of Diabetes Diabetes Care 2021; 46: S19-S40. Current interpretive data was last revised 2022. Calcium 7.5(L) 8.5 - 10.3 mg/dL [facility] Bilirubin, total 1.2 0.1 - 1.2 mg/dL [facility] Protein, pl 5.8(L) 6.5 - 8.5 g/dL [facility] Albumin 2.6(L) 3.5 - 5.0 g/dL [facility] Alk phos 69 40 - 130 Units/L [facility] ALT 23 7 - 45 Units/L [facility] AST 23 10 - 45 Units/L [facility] Blood 10/05/2024 3:42 AM REFINERY PROCESS ENGINEER 10/05/2024 4:28 AM REFINERY PROCESS ENGINEER Narrative [facility] - 10/05/2024 4:58 AM REFINERY PROCESS ENGINEER Saturday and only. Morning draw. us Marcus Vergara MD LAB BLOOD ORDERABLES Final Resu lt Performing Organization Address City/[facility]/ZIP Co de Phone Number [facility] [place] [address] * Hepatitis panel, acute Blood (09/29/2024 2:05 PM REFINERY PROCESS ENGINEER) Hep A IgM Nonreactive Nonreactive Hep B core IgM Nonreactive [facility]reactive [facility] Hep C Ab Nonreactive Nonreactive [facility] Comment:Antibodies to HCV no t detected. Does NOT exclude the possibility of recent exposure to HCV. Current interpretive data was last revised on 22 HepBsAg Nonreactive Nonreactive [facility] Blood 09/29/2024 2:05 PM REFINERY PROCESS ENGINEER 09/29/2024 2:59 PM REFINERY PROCESS ENGINEER us Marcus Vergara MD LAB MICROBIOLOGY - GENERAL ORDE RABLES Final Result Performing Organization Address [facility] Co de Phone Number [facility] Department [place] [address] * Screening Mammogram Bilateral W Eliceo (05/12/2024 11:54 AM CDT) Anatomical Region Laterality Modality Breast Bilateral Mammography Narrative 05/13/2024 8:41 AM CDT Mammogram Technique: Bilateral Digital Breast Tomosynthesis, Bilateral C-view 2D Screening mammogram. Views obtained: bilateral craniocaudal and bilateral mediolateral oblique. Computer Aided Detection was performed. Mammogram Findings: The present examination has been compared to prior imaging studies performed at [facility] on 04/24/2022, 04/30/2023 and 05/30/2023. There are scattered areas of fibroglandular density. There are post breast conservation therapy changes in the left breast. There is no suspicious abnormality in either breast. Impression: There is no mammographic evidence of malignancy. Annual screening mammography is recommended. OVERALL FINAL ASSESSMENT: BI-RADS CATEGORY 2: Benign. Procedure Note Chanelle Dave MD - 05/13/2024 Mammogram Technique: Bilateral Digital Breast Tomosynthesis, Bilateral C-view 2D Screening mammogram. Views obtained: bilateral craniocaudal and bilateral mediolateral oblique. Computer Aided Detection was performed. Mammogram Findings: The present examination has been compared to prior imaging studies performed at [facility] on 04/24/2022, 04/30/2023 and 05/30/2023. There are scattered areas of fibroglandular density. There are post breast conservation therapy changes in the left breast. There is no suspicious abnormality in either breast. Impression: There is no mammographic evidence of malignancy. Annual screening mammography is recommended. OVERALL FINAL ASSESSMENT: BI-RADS CATEGORY 2: Benign. Result [facility] Vidya Patterson NP IM MAMMO PROCEDURES Final Result from Last 3 Months or Most Recently Relevant to Health Maintenance Insurance [facility] [facility] ANTHEM ACCESS CHOICE TRANSPLANT BDCT Advance Directives For more information, please contact: [phone] * Full Code (Latest Code Status on File) Date Activated Date Inactivated Comments 11/14/2024 9:05 PM 12/04/2024 10:10 PM * Full Code Date Activated Date Inactivated Comments 11/06/2024 8:30 PM 11/11/2024 8:06 PM * Full Code Date Activated Date Inactivated Comments 09/29/2024 1:45 PM 10/28/2024 7:01 PM Care Teams Weigher And Mixer Relationship Specialty Start Date End Date Grey Ayala MD [address] [facility] [address] [place] [address] PCP - General 12/27/17 Vicente Duke MD [address] [facility] [address] DIV [place] [address] Medical Oncologist/Truss Driver Helper Internal Medicine 10/28/24 Clinical Summary Created on: January 02, 2025 Renu Duron : 1965 Sex: Female Author Organization [facility] Address [address] [place] [address] Care Team Providers Care Weigher And Mixer Name Role Phone Grey Ayala MD Primary Care Provider Vicente Duke MD Unavailable Allergies Active Allergy Reactions Criticality Noted Date Comments Ceftriaxone Itching Low 11/15/2024 Per family. Occurred at OSH Oxycodone Nausea only Low 10/01/2024 Medications ALPRAZolam (XANAX) 0.25 mg tablet TK 1 T PO QD PRN 0 Active citalopram (CeleXA) 20 mg tablet 3 019 Active fexofenadine (DOREEN) 180 mg tablet Take 0.5 tablets (90 mg total) by mouth daily Active sulfamethoxazole- trimethoprim (BACTRIM DS) 800-160 mg per tablet Take 1 tablet by mouth 2 (two) times daily for 2 (two) days per week On Mondays and 48 tablet 025 Active famotidine (PEPCID) 40 mg tabletIndications :Gastroesophageal reflux disease without esophagitis Take 1 tablet (40 mg total) by mouth daily 30 tablet 11 025 2025 Active Additional Information Patient not taking.Reported on 12/25/2024 nystatin 100,000 unit/mL suspensionIndicat ions:oral candidiasis Take 5 mL (500,000 Units total) by mouth 4 (four) times a day 473 mL Active ciprofloxacin (CIPRO) suspension 500 mg/5 mL Take 7.5 mL (750 mg total) by mouth 2 (two) times a day 450 mL Active ondansetron ODT (ZOFRAN-ODT) 4 mg disintegrating tabletIndications :Nausea Take 1 tablet (4 mg total) by mouth every 8 (eight) hours as needed for nausea or vomiting 60 tablet 025 2024 Active gilteritinib (Xospata) 40 mg tabletIndications :Acute 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) Take 2 tablets (80 mg total) by mouth daily DISSOLVE 2 TABLETS IN 20ML OF 50 DEGREES CELSIUS/120 DEGREES FAHRENHEIT WATER AND DRINK 1 TIME A DAY. STIR UNTIL BOTH TABLETS HAVE COMPLETELY DISSOVLED AND DRINK SUSPENSION WITHIN 2 HOURS. 56 tablet Active valACYclovir (VALTREX) 500 mg tabletIndications :Prophylaxis, Medical Take 1 tablet (500 mg total) by mouth daily 30 tablet Active ciprofloxacin (CIPRO) 750 mg tabletIndications :Acute 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) Active prochlorperazine (Compazine) 10 mg tabletIndications :Acute 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) Take 1 tablet (10 mg total) by mouth every 6 (six) hours as needed for nausea or vomiting Use first for nausea 120 tablet 3 Active allopurinoL (ZYLOPRIM) 300 mg tabletIndications :Acute 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) Take 1 tablet (300 mg total) by mouth daily For tumor lysis prevention 30 tablet 025 2024 Active venetoclax (VENCLEXTA) 100 mg tabletIndications :Acute 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) Take 2 tablets (200 mg total) by mouth daily for 7 days 14 tablet 025 2024 Active isavuconazonium (Cresemba) 186 mg capsuleIndication s:Acute 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) Take 2 capsules (372 mg total) by mouth daily 60 capsule Active valACYclovir (VALTREX) 500 mg tabletIndications :Prophylaxis, Medical Take 1 tablet (500 mg total) by mouth daily 30 tablet 025 2024 Discontinued(R eorder) ondansetron ODT (ZOFRAN-ODT) 4 mg disintegrating tablet Take 1 tablet (4 mg total) by mouth every 8 (eight) hours as needed for nausea or vomiting 20 tablet 025 2024 Discontinued(R eorder) gilteritinib (XOSPATA) 40 mg tabletIndications :Acute 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) Take 2 tablets (80 mg total) by mouth daily Take with or without food.Take on days 8 through 21 of cycle. Take 2 tablets and add to 20 mL of 50 degrees Celsius / 120 degrees Farenheit water. Stir the pills in the water until both tablets have completely dissolved. Use the suspension within 2 hours of dissolving the tablets (the suspension is only stable for 2 hours after creation). 28 tablet 025 2024 Discontinued(S top Taking at Discharge) fluconazole (DIFLUCAN) 200 mg tablet Take 2 tablets (400 mg total) by mouth daily 60 tablet 025 2024 Discontinued(S top Taking at Discharge) cefdinir (OMNICEF) suspension 250 mg/5 mLIndications:Acu te 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) Take 6 mL (300 mg total) by mouth 2 (two) times a day 360 mL 5 025 2024 Discontinued(S top Taking at Discharge) cefdinir (OMNICEF) 300 mg capsule Take 1 capsule (300 mg total) by mouth 2 (two) times a day 60 capsule 1 025 2024 Discontinued(S top Taking at Discharge) isavuconazonium (Cresemba) 186 mg capsule Take 2 capsules (372 mg total) by mouth daily 60 capsule 025 2024 Discontinued ciprofloxacin (CIPRO) 750 mg tabletIndications :Prophylaxis, Medical Take 1 tablet (750 mg total) by mouth 2 (two) times a day 60 tablet 025 2024 Discontinued(S top Taking at Discharge) doxycycline (MONODOX) 100 mg capsuleIndication s:Skin/Soft Tissue Infection Take 1 capsule (100 mg total) by mouth 2 (two) times a day for 7 days 14 capsule 025 2024 Discontinued(S top Taking at Discharge) isavuconazonium (Cresemba) 186 mg capsule Take 2 capsules (372 mg total) by mouth daily 60 capsule 025 2024 Discontinued(R eorder) doxycycline (VIBRAMYCIN) 100 mg capsule Take 1 tablet/capsule (100 mg total) by mouth 2 (two) times a day for 7 days 14 tablet/caps ule 04/04/2 025 2024 gilteritinib (XOSPATA) 40 mg tabletIndications :Acute 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) Take 2 tablets (80 mg total) by mouth daily Take with or without food.Take on days 8 through 21 of cycle. Take 2 tablets and add to 20 mL of 50 degrees Celsius / 120 degrees Farenheit water. Stir the pills in the water until both tablets have completely dissolved. Use the suspension within 2 hours of dissolving the tablets (the suspension is only stable for 2 hours after creation). 28 tablet 025 2024 Discontinued Xospata 40 mg tabletIndications :Acute 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) DISSOLVE 2 TABLETS IN 20ML OF 50 DEGREES CELSIUS/120 DEGREES FAHRENHEIT WATER AND DRINK 1 TIME A DAY ON DAYS 8 THROUGH 21 OF EACH 30-DAY CYCLE. STIR UNTIL BOTH TABLETS HAVE COMPLETELY DISSOLVED AND DRINK SUSPENSION WITHIN 2 HOURS. 28 tablet 025 2024 Discontinued(R eorder) valACYclovir (VALTREX) 500 mg tabletIndications :Prophylaxis, Medical Take 1 tablet (500 mg total) by mouth daily 30 tablet 025 2024 Discontinued(R eorder) Active Problems Patient Care Coordination No te Formatting of this note is d ifferent from the original. P Inpatient Care Coordination Diagnosis Poss AML hx of breast CA Reason for Admission Leukocytosis- transfer from [facility] HCT/IEC Notes Discharge Planning Patient Education Completed [x] Discharge Disposition []SNF/Rehab: [][facility] [x]Home - distance from [facility] 30 min Caregiver: Josselyn (spouse) Requests Sent to []Case Management: []MAs: []Pharmacy PA team: Specialty Medications Med Pharmacy Refills Pt Aware [] Post-Discharge Follow-Up [facility] Local Oncologist Contact Name: Nurse: Phone: Fax: Supportive care plan Location Scheduled for Line Care Transfusions Infusion Appts Other Orders H30 [] [place] [] Locally at ____ [] [] frequency [] for & frequency ____ [] Jalen with bsx prior 3/4 Follow-Up [] Restaging: ____ [] Other pending items: Problem Noted Date Diagnosed Date Cellulitis of labia 12/25/2024 Pseudomonas infection 12/25/2024 Neutropenic sepsis 11/14/2024 Assessment & Plan (12/03/2024 1:49 PM CDT): ANC 0.0 Tmax 103 resolved on admission. BCx x2 drawn at [facility], RPP negative, UA noninfectious, CXR clear. After admission, developed hypotension to 90s/40s. S/p 1L NS in [facility], 2L here. Lactate downtrended to normal (peaked to 4.4). POCUS: IVC 0.87 cm, <50% respiratory variation done after 2nd liter on floor. Potential sources include pre-existing oral mucositis or L labial swelling c/w cellulitis. - Cefepime + vancomycin on admission. Transitioned to daptomycin + zosyn- >meropenem (11/15 - 11/22) given rapid development of soft tissue infection. Stop daptomycin 11/21. Change to oral cipro 11/22 with close monitoring of Qtc while on concurrent gilteritinib. QTC 474 on 11/23. - CT A/P without evidence of deeper soft tissue infection or drainable fluid collection - Telephone Directory Distributor Driver consulted, no surgical intervention - 1 of 2 blood cultures with Pseudomonas Aeruginosa. Cheng-sensitive. - Removed nontunneled RIJ CVC on 11/16 with planned at least 24h line holiday - Perineal erythema spreading 11/18. Add topical miconazole and change fluconazole to micafungin for possible dee. Repeat CT without fluid collection or gas formation. Telephone Directory Distributor Driver has re-evaluated. - Dermatology also consulted. Swab also growing Pseudomonas, Dee. - Recurrent fevers on 11/25, ID, dermatology re-engaged. - CT sinus, CAP without evidence of occult infection. Persistent labial cellulitis - Atypical infx w/u sent (histo, crypto, aspergillus, blasto, cocci negative) - Repeat blood cultures NGTD - Vanc (11/25-12/02)/meropenem (11/25 - 12/03); Cresemba (11/27 - ). Change to oral ciprofloxacin, doxycycline 12/03. 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 11/07/19 Assessment & Plan (12/02/2024 12:37 PM CDT): W/ monocytic differentiation, dx 10/01/24, FLT3-ITD+, NPM1+ AML 73% blasts, FISH neg, ChromoSeq: DNMT3A (37%), TET2 (49%), NPM1 (39%), [id number], FLT3-ITD (21%), FLT3-ITD AR 0.4; MyeloSeq: DNMT3A (48%), TET2 (47%), NPM1 (50%), KRAS (8%), FLT3-ITD (21%) PET/CT on 10/01/2024 showed hypermetabolic adenoid tonsils and bilateral upper cervical lymph nodes, minimal uptake within the right nasal cavity lesion, and 7 mm right upper lobe pulmonary nodule C1D1 Induction 10/02: [facility] + Midostaurin d8-21 Consolidation 11/06: [facility] to be followed by [facility] B[facility] days 8-21. Discharged day 6, 11/11/24. - held gilteritinib for septic shock/active infection. 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 Complicated with mucositis/esophagitis/diarrhea and ileus. Was on TPN transiently. - PET/CT on 10/01/2024 showed hypermetabolic adenoid tonsils and bilateral upper cervical lymph nodes, minimal uptake within the right nasal cavity lesion, and 7 mm right upper lobe pulmonary nodule - OI ppx: Valtrex - Started C2 on 11/06 of [facility] with Midostarin 50 mg BID Day 8-21 - Anticipate DC on day 6 (11/11) Anxiety 11/06/2024 Assessment & Plan (11/15/2024 8:07 AM CDT): -Continue citalopram 20 mg daily Assessment & Plan (11/06/2024 9:14 PM REFINERY PROCESS ENGINEER): Continue citalopram 20 mg daily AML (acute myeloblastic leukemia) 10/02/2024 Leucocytosis 09/29/2024 Anemia 09/29/2024 Thrombocytopenia 09/29/2024 Lymphadenopathy 09/29/2024 Diplopia 09/29/2024 Acute kidney injury 09/29/2024 Elevated liver enzymes 09/29/2024 History of left breast cancer 01/22/2019 Hives 04/12/2014 Overview (12/06/2016): Urticaria Assessment & Plan (11/22/2024 12:17 PM CDT): -Takes fexofenadine 90 mg daily at home, on loratadine here Assessment & Plan (11/06/2024 9:15 PM REFINERY PROCESS ENGINEER): akes fexafenadine 90 mg daily at home, on loratadine here Antinuclear factor positive 04/12/2014 Overview (12/07/2016): Positive FIFI Physical urticaria 07/08/2012 Overview (12/07/2016): Hives, physical Vitamin D deficiency 07/08/2012 Overview (12/07/2016): Vitamin d deficiency Knee pain 07/08/2012 Overview (12/07/2016): Knee pain, bilateral Gastroesophageal reflux disease 07/08/2012 Overview (12/07/2016): GERD (gastroesophageal reflux disease) Altered bowel function 07/08/2012 Overview (12/07/2016): Change in bowel habits Mucositis 07/08/2012 Overview (12/07/2016): Rhinitis Assessment & Plan (12/01/2024 2:22 PM CDT): Previous hospitalization with G-III mucositis and oral dee mangaed with MMW, nystatin and dexa, was unable to tolerate PO and was briefly on TPN. -MMW + nystatin PRN Assessment & Plan (11/07/2024 4:20 PM REFINERY PROCESS ENGINEER): - C1 was complicated with G-III mucositis and oral dee managed with MMW, nystatin and dexa, was unable to tolerate PO and was briefly on TPN due to ileus - Will monitor during this admission. No evidence of mucositis now. Autoimmune thyroiditis 07/08/2012 Overview (12/07/2016): Autoimmune thyroiditis Palpitations 07/08/2012 Overview (12/07/2016): Palpitations Encounters Date Type Department Care Team Description 01/01/2025 11:30 AM CDT Office Visit [facility] Marrow Transplant [address] [place] [phone] Diana Cole NP Acute 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) (Primary Dx) 01/01/2025 10:30 AM CDT Lab [facility] - Lab Collection [address] [place] [id number] Acute 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) 01/01/2025 9:05 AM CDT - 01/01/2025 11:59 PM CDT Hospital Encounter [facility] - CT [address] [place] [address] [address] [place] [address] Cellulitis of labia; Pseudomonas infection; Encounter for screening examination for sexually transmitted disease; Acute 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) Discharge Disposition: Discharge to home or self care 01/01/2025 Telephone [facility] Marrow Transplant [address] [place] [address] Floor 6 [place] [address] Elizabeth Ford NP 01/01/2025 Telephone [facility] Transplant [address] [place] [address] Floor 6 [place] [address] Elizabeth Ford NP 01/01/2025 Orders Only [facility] Transplant [address] [place] [address] Floor 6 [place] [address] Peter Frances, RN AML (acute myeloid leukemia) in relapse (HCC) (Primary Dx); Acute 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) 12/25/2024 3:45 PM CDT Lab [facility] - Lab Collection [address] [place] [address] Floor 5 [place] [address] Cellulitis of labia; Pseudomonas infection; Encounter for screening examination for sexually transmitted disease; Acute 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) 12/25/2024 2:40 PM CDT Office Visit [facility] Infectious Diseases [address] [place] [address] Floor 1, [address] [place] [address] Marta Cassidy NP Cellulitis of labia (Primary Dx); Pseudomonas infection; Encounter for screening examination for sexually transmitted disease; Acute 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) 12/22/2024 Orders Only [facility]row Transplant [address] [place] [address] Floor 6 [place] [address] Peter Frances, ict trainer 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) (Primary Dx) 12/09/2024 Telephone [facility] Transplant [address] [place] [address] Floor 6 [place] [address] Vicente Duke MD 12/08/2024 1:15 PM CDT Lab [facility] - Lab Collection [address] [place] [address] Floor 6 [place] [address] Acute 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) 12/08/2024 12:30 PM CDT Infusion [facility] - Infusion [address] [place] [address] Acute 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) 12/08/2024 11:20 AM CDT Office Visit [facility] Marrow Transplant [address] [place] [phone] Vicente Duke MD Acute 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) (Primary Dx) 12/08/2024 10:30 AM CDT Lab [facility] - Lab Collection [address] [place] [address] Acute 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); Gastroesophageal reflux disease without esophagitis 12/08/2024 Orders Only [facility] [address] [place] [address] Vicente Duke MD 12/08/2024 Orders Only [facility] [address] [place] [address] Vicente Duke MD 12/08/2024 Orders Only [facility] [address] [place] [address] Vicente Duke MD 12/08/2024 Telephone [facility] Dermatology [address] [place] [address] [address] [place] [address] Catalina Swanson 12/04/2024 Orders Only [facility] Transplant [address] [place] [phone] Peter Frances RN Acute 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) (Primary Dx) 12/03/2024 Orders Only [facility] Transplant [address] [place] [phone] Vicente Duke MD Acute 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) (Primary Dx) 11/23/2024 Orders Only [address] [phone] Glenny Schroeder AML (acute myeloid leukemia) in relapse (HCC) (Primary Dx) 11/17/2024 Orders Only [address] [phone] Glenny Schroeder 11/14/2024 8:43 PM CDT - 12/04/2024 6:04 PM CDT Hospital Encounter [address] [address] Vicente Duke MD Ghobadi, Armin, MD Oetjen, Karolyn Ann, MD PhD Dominique Pino MD Neutropenic fever (Primary Dx); Other pancytopenia (HCC) Discharge Disposition: Discharge to home or self care 11/14/2024 7:03 PM CDT - 11/14/2024 11:59 PM CDT Hospital Encounter [facility] [address] [place] [address] Discharge Disposition: Discharge to home or self care 11/14/[address] [phone] Astrid Velazquez NP [place] 11/13/2024 9:30 AM CDT Infusion [facility] - Infusion [address] [facility] Floor 5 [place] [address] Acute 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) 11/13/2024 8:30 AM CDT Clinical Support [facility] - Lab Collection [address] [facility] Floor 6 [place] [address] Acute 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) 11/13/2024 Orders Only [facility]row Transplant [address] [facility] Floor 6 [place] [address] Peter Frances, RN Gastroesophageal reflux disease without esophagitis (Primary Dx) 11/13/2024 Orders Only [facility] Transplant [address] [facility] Floor 6 [place] [address] Peter Frances RN 11/12/2024 Telephone [facility] Transplant [address] [phone] Peter Frances, JAEL 11/11/2024 Orders Only [facility] Marrow Transplant [facility] [address] [phone] Vicente Duke MD Acute 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) (Primary Dx) 11/10/2024 Orders Only [facility] [address] [phone] Peter Frances, ict trainer 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) (Primary Dx) 11/10/2024 Orders Only [facility] [address] [phone] Luisa Abdul [facility] Acute 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) (Primary Dx) 11/10/2024 Orders Only [facility] Transplant [address] [place] [phone] Vicente Duke MD 11/10/2024 Orders Only [facility] Transplant [address] [place] [phone] Peter Frances, ict trainer 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) (Primary Dx) 11/10/2024 Orders Only [facility] Transplant [address] [place] [phone] Vicente Duke MD Acute 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) 11/09/2024 Documentation [facility] [address] [facility] [place] [address] Luz Marnia Clay CPhT Prior Auth (RYDAPT ) 11/06/2024 8:18 PM REFINERY PROCESS ENGINEER - 11/11/2024 4:00 PM CDT Hospital [address] [phone] Vicente Duke MD Ghobadi, Armin, MD Obeidat, Mervat Valencia [facility] [place] Acute 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) (Primary Dx); Other pancytopenia (HCC) Discharge Disposition: Discharge to home or self care 11/06/2024 Documentation [facility] Transplant [address] [place] [phone] Stacy Babin CMA 11/05/2024 Telephone [facility] Transplant [address] [place] [phone] Sabrina Hemphill RMA Prior Auth 11/04/2024 2:39 PM REFINERY PROCESS ENGINEER - 11/04/2024 11:59 PM REFINERY PROCESS ENGINEER Hospital Encounter [facility] [address] [place] [address] Acute 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) Discharge Disposition: Discharge to home or self care 11/04/2024 11:00 AM REFINERY PROCESS ENGINEER Infusion [facility] - Infusion [address] [place] [address] Acute 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) 11/04/2024 Orders Only [facility] [address] [place] [address] Vicente Duke MD 11/04/2024 Orders Only [facility] [address] [place] [address] Vicente Duke MD 11/04/2024 Telephone [facility]row Transplant [address] [place] [phone] Vicente Duke MD 11/04/2024 Orders Only [facility] Transplant [address] [place] [phone] Peter Frances RN Acute 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) (Primary Dx) 11/04/2024 Orders Only [address] [phone] Vicente Duke MD 11/03/2024 2:40 PM REFINERY PROCESS ENGINEER Office Visit [facility] Transplant [address] [place] [phone] Vicente Duke MD Acute 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) (Primary Dx) 11/03/2024 1:30 PM REFINERY PROCESS ENGINEER Lab [facility] Oncology Lab [address] [place] [phone] 11/03/2024 1:00 PM REFINERY PROCESS ENGINEER Clinical Support [facility] - Lab Collection [facility] [address] [address] Acute 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) 10/30/2024 Telephone [facility] Transplant [address] [place] [phone] Peter Frances RN 10/28/2024 Orders Only [facility] Transplant [address] [place] [phone] Vicente Duke MD Acute 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) (Primary Dx) 10/07/2024 Orders Only [facility] Oncology [address] [place] [phone] Rickey Velásquez MD 09/29/2024 1:38 PM REFINERY PROCESS ENGINEER - 10/28/2024 2:35 PM REFINERY PROCESS ENGINEER Hospital Encounter [address] [phone] Marcus Vergara MD Other pancytopenia (HCC) (Primary Dx); Leukocytosis, unspecified type; Acute 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); Altered bowel function; Hypokalemia Discharge Disposition: Discharge to home or self care from Last 3 Months Immunizations Immunization Administration Dates Next Due Influenza, Trivalent, IM (MDV) 06/10/2014,2012 Tdap 06/17/2014 Surgical History Surgery Date Site/Laterality Comments HEMORRHOID SURGERY hemmoroids KNEE ARTHROSCOPY R/L knee arthroscopic BREAST LUMPECTOMY BREAST BIOPSY CENTRAL LINE PLACEMENT > 5 YEARS 10/01/2024 N/A Medical History Medical History Date Comments Peptic ulcer Peptic ulcer dis ease Osteoarthritis Osteoarthritis Breast cancer (HCC) GERD (gastroesophageal reflux disease) Anemia PONV (postoperative nausea and vomiting) Family History Medical History Relation Name Comments Other Brother 2 Alive and well; Colon cancer Father Cancer -colon; /Cancer, colon; Cause of : Cancer, colon/Colon adenocarcinoma - (Added by TW Conv) Coronary artery disease Mother AnaM narnegro artery disease; Heart disease Mother Heart disease; Hyperlipidemia Mother Hyperlipidemi a; Hypertension Mother Hypertension; Relation Name Status Comments Brother 1 Alive Brother 2 Father Mother Social History Tobacco Use Types Packs/Day Years Used Date Smoking Tobacco: Never Tobacco Cessation:Counseling Given: Not Answered Alcohol Use Standard Drinks/Week Comments No 0 (1 standard drink = 0.6 oz pur e alcohol) [facility] Utilities Answer Date Recorded In the past 12 months has e electric, gas, oil, or water company threatened to shut off services in your home? No 11/23/2024 Social Connection and Isolat ion Panel [NHANES] Answer Date Recorded In a typical week, how many times do you talk on the phone with family, friends, or neighbors? More than three times a week 11/23/2024 How often do you get togethe r with friends or relatives? More than three times a week 11/23/2024 How often do you attend chur ch or buddhism services? 1 to 4 times per year 11/23/2024 Do you belong to any clubs o r organizations such as alevism groups, unions, fraternal or athletic groups, or school groups? No 11/23/2024 How often do you attend meet ings of the clubs or organizations you belong to? Never 11/23/2024 Are you , , di vorced, , never , or living with a partner? 11/23/2024 Overall Financial Resource Strain (CARDIA) Answe r Date Recorded How hard is it for you to pa y for the very basics like food, housing, medical care, and heating? Not hard at all 11/23/2024 PHQ-2 Answer Date Recorded PHQ-2 Total Score 3 11/17/2024 Hunger Vital Sign Answer Date Recorded Within the past 12 months, y ou worried that your food would run out before you got the money to buy more. Never true 11/24/19 25 Within the past 12 months, t he food you bought just didn't last and you didn't have money to get more. Never true 11/23/2024 PRAPARE - Transportation Answer Date Re corded In the past 12 months, has l ack of transportation kept you from medical appointments or from getting medications? No 11/01 In the past 12 months, has l ack of transportation kept you from meetings, work, or from getting things needed for daily living? No 11/23/2024 PHQ-9 Answer Date Recorded PHQ-9 Total Score 8 11/17/2024 Housing Stability Vital Sign Answer Alex e Recorded In the last 12 months, was t here a time when you were not able to pay the mortgage or rent on time? No 11/23/2024 In the past 12 months, how m any times have you moved where you were living? 0 11/23/2024 At any time in the past 12 m [facility], were you homeless or living in a half-way (including now)? No 11/23/2024 Personal Safety Answer Date Recorded Have you ever been in or are you currently in a harmful physical or emotional relationship or is someone making you feel afraid or unsafe? Denies 11/14/2024 Comments No Sex and Gender Information Value Date Recorded Sex Assigned at Not on file Legal Sex Female 2:12 AM REFINERY PROCESS ENGINEER Gender Identity Not on file Sexual Orientation Not on file Obstetrics History Last Filed Vital Signs Vital Sign Reading Time Taken Comments Blood Pressure 129/74 01/01/2025 9:57 AM CDT Pulse 86 01/01/2025 9:57 AM CDT Temperature 36.6 C (97.8 F) 01/01/2025 9:57 AM CDT Respiratory Rate 18 01/01/2025 9:57 AM CDT Oxygen Saturation 98% 01/01/2025 9:57 AM CDT Inhaled Oxygen Concentration - - Weight 56.2 kg (123 lb 12.8 oz) 01/01/2025 9:57 AM CDT Height 160 cm (5' 3 ) 12/25/2024 2:24 PM CDT Body Mass Index 21.93 12/25/2024 2:24 PM CDT Plan of Treatment Health Maintenance Due Date Last Done Comments Cervical Cancer Screening 1964 Colon Cancer Screening-Colonoscopy 1964 Hepatitis B Screening 1982 Regular Well Visit/Exam 18-64 1982 Pneumococcal vaccine <65 (1 of 2 - PCV) 1983 Zoster Vaccine (1 of 2) 1983 DTaP/Tdap/Td Vaccine (2 - Td or Tdap) 06/17/2024 06/17/2014 Influenza Vaccine (Season Ended) 2025 06/03/2019, 06/18/2018, 06/10/2014, Additional history exists Breast Cancer Screening-Mammogram 05/12/2025 05/12/2024, 04/30/2023, 04/24/2022, Additional history exists Depression Screening 11/14/2025 11/14/2024, 11/14/2024, 11/03/2024 Hepatitis C Screening Completed 09/29/2024 Procedures Procedure Name Priority Date/Time Associated Diagnosis Comments EGFR Routine 01/01/2025 9:52 AM CDT Acute 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) DIFFERENTIAL AUTO Routine 01/01/2025 9:52 AM CDT Acute 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) CBC WITH AUTO DIFFERENTIAL Routine 01/01/2025 9:52 AM CDT Acute 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) COMPREHENSIVE METABOLIC PANEL Routine 01/01/2025 9:52 AM CDT Acute 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) LACTATE DEHYDROGENASE Routine 01/01/2025 9:52 AM CDT Acute 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) URIC ACID Routine 01/01/2025 9:52 AM CDT Acute 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) MAGNESIUM Routine 01/01/2025 9:52 AM CDT Acute 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) PHOSPHORUS Routine 01/01/2025 9:52 AM CDT Acute 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) APTT Routine 01/01/2025 9:52 AM CDT Acute 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) FIBRINOGEN Routine 01/01/2025 9:52 AM CDT Acute 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) PROTIME-INR Routine 01/01/2025 9:52 AM CDT Acute 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) TYPE AND SCREEN Routine 01/01/2025 9:52 AM CDT Acute 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) CT PELVIS W CONTRAST Schedule Routine, Read Routine (OP Routine) 01/01/2025 9:31 AM CDT Cellulitis of labia Pseudomonas infection Encounter for screening examination for sexually transmitted disease Acute 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) Procedure Note - Hugo Cox MD / Dominik Eric MD - 01/01/2025 9:31 AM CDTThis note is in progress. EXAMINATION: Computed tomography of the pelvis with intravenous contrast HISTORY: 59-year-old woman, with concern for labial abscess. TECHNIQUE: Transaxial computed tomographic images of the pelvis were obtained with intravenous contrast according to the standard protocol after the uneventful administration of 68 mL Opti-Ray 350 intravenous contrast. COMPARISON: Prior CT dated 11/29/2024. FINDINGS: There is inflammation and stranding of the the left labial soft tissues, with associated skin thickening, all slightly increased from the prior examination dated 11/29/2024. No organized fluid collection is identified. The uterus is anteverted. No suspicious adnexal mass. No dilated loops of bowel are noted in the pelvis. The appendix is normal. A left inguinal lymph node measures 8 mm, increased from 7 mm on the prior examination, and is likely reactive to the labial cellulitis. The bladder is underdistended, and may be thick walled. No free fluid or free air in the pelvis. Facet arthropathy is noted in the L4-L5 and L5-S1 facet joints bilaterally. No lytic or sclerotic osseous lesion in the pelvis. IMPRESSION: 1. Slight increase in fat stranding and thickening of the left tibia compared to the prior examination, consistent with cellulitis, without organized fluid collection. 2. Underdistended bladder may also be thick walled. If there is clinical concern for urinary tract infection, recommend urinalysis. Dictated by: Hugo Cox M.D. EGFR Routine 12/25/2024 3:48 PM CDT Cellulitis of labia Pseudomonas infection Encounter for screening examination for sexually transmitted disease Acute 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) DIFFERENTIAL AUTO Routine 12/25/2024 3:48 PM CDT Cellulitis of labia Pseudomonas infection Encounter for screening examination for sexually transmitted disease Acute 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) CBC WITH AUTO DIFFERENTIAL Routine 12/25/2024 3:48 PM CDT Cellulitis of labia Pseudomonas infection Encounter for screening examination for sexually transmitted disease Acute 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) COMPREHENSIVE METABOLIC PANEL Routine 12/25/2024 3:48 PM CDT Cellulitis of labia Pseudomonas infection Encounter for screening examination for sexually transmitted disease Acute 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) HLA HEMATOPOIETIC STEM CELL TYPING REPORT 12/16/2024 2:56 PM CDT CHROMOSEQ - HEME GENETIC PROFILING (WGS) WITH INTERPRETATION Routine 12/08/2024 2:26 PM CDT MEASURABLE RESIDUAL DISEASE (MRD) MYELOSEQ HEME NGS PANEL WITH INTERPRETATION Routine 12/08/2024 2:26 PM CDT SURGICAL PATHOLOGY Routine 12/08/2024 2:26 PM CDT Acute 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) FLOW LEUKEMIA/LYMPHOMA Routine 12/08/2024 2:26 PM CDT Acute 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) CYTOGENETICS Routine 12/08/2024 2:26 PM CDT MISCELLANEOUS MOLECULAR SEND-OUT REQUEST Routine 12/08/2024 2:26 PM CDT Acute 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) MISCELLANEOUS MOLECULAR SEND-OUT REQUEST Routine 12/08/2024 2:26 PM CDT Acute 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) HR HLA TYPING (CLASS I AND CLASS II) Routine 12/08/2024 1:44 PM CDT Acute 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) EGFR Routine 12/08/2024 1:36 PM CDT Acute 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) DIFFERENTIAL AUTO Routine 12/08/2024 1:36 PM CDT Acute 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) CBC WITH AUTO DIFFERENTIAL Routine 12/08/2024 1:36 PM CDT Acute 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) COMPREHENSIVE METABOLIC PANEL Routine 12/08/2024 1:36 PM CDT Acute 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) URIC ACID Routine 12/08/2024 1:36 PM CDT Acute 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) LACTATE DEHYDROGENASE Routine 12/08/2024 1:36 PM CDT Acute 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) BILIRUBIN, DIRECT Routine 12/08/2024 1:36 PM CDT Acute 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) HLA ANTIBODY SCREEN - SAB (CLASS I AND CLASS II) Routine 12/08/2024 1:15 PM CDT Acute 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) EGFR STAT 12/08/2024 10:37 AM CDT Acute 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) DIFFERENTIAL AUTO STAT 12/08/2024 10:37 AM CDT Acute 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) MAGNESIUM Routine 12/08/2024 10:37 AM CDT Acute 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) PHOSPHORUS Routine 12/08/2024 10:37 AM CDT Acute 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) AMYLASE Routine 12/08/2024 10:37 AM CDT Acute 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) LIPASE Routine 12/08/2024 10:37 AM CDT Acute 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) BILIRUBIN, DIRECT Routine 12/08/2024 10:37 AM CDT Gastroesophageal reflux disease without esophagitis CBC WITH AUTO DIFFERENTIAL STAT 12/08/2024 10:37 AM CDT Acute 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) COMPREHENSIVE METABOLIC PANEL STAT 12/08/2024 10:37 AM CDT Acute 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) LACTATE DEHYDROGENASE STAT 12/08/2024 10:37 AM CDT Acute 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) TYPE AND SCREEN STAT 12/08/2024 10:37 AM CDT Acute 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) ECG 12-LEAD Routine 12/04/2024 11:59 AM CDT TRANSFUSE RED BLOOD CELLS Timed 12/04/2024 11:31 AM CDT Other pancytopenia (HCC) TRANSFUSE PLATELETS Timed 12/04/2024 10:30 AM CDT Other pancytopenia (HCC) PREPARE PLATELETS Timed 12/04/2024 8:00 AM CDT Other pancytopenia (HCC) PREPARE RBC Timed 12/04/2024 8:00 AM CDT Other pancytopenia (HCC) EGFR Routine 12/04/2024 12:23 AM CDT MAGNESIUM Routine 12/04/2024 12:23 AM CDT MANUAL DIFFERENTIAL Routine 12/04/2024 12:23 AM CDT CBC WITHOUT DIFFERENTIAL Routine 12/04/2024 12:23 AM CDT BASIC METABOLIC PANEL Routine 12/04/2024 12:23 AM CDT PHOSPHORUS Routine 12/04/2024 12:23 AM CDT BMT CBC Routine 12/04/2024 12:23 AM CDT ECG 12-LEAD Routine 12/03/2024 5:22 PM CDT SURGICAL PATHOLOGY Routine 12/03/2024 3:33 PM CDT MYCOLOGY (FUNGAL) CULTURE AND STAIN Routine 12/03/2024 3:33 PM CDT TISSUE AEROBIC AND ANAEROBIC CULTURE AND GRAM STAIN Routine 12/03/2024 3:33 PM CDT MYCOBACTERIOLOGY AFB CULTURE AND ACID-FAST STAIN Routine 12/03/2024 3:33 PM CDT TYPE AND SCREEN Timed 12/03/2024 12:48 AM CDT MAGNESIUM Routine 12/03/2024 12:47 AM CDT EGFR Routine 12/03/2024 12:47 AM CDT MANUAL DIFFERENTIAL Routine 12/03/2024 12:47 AM CDT CBC WITHOUT DIFFERENTIAL Routine 12/03/2024 12:47 AM CDT LACTATE DEHYDROGENASE Routine 12/03/2024 12:47 AM CDT URIC ACID Routine 12/03/2024 12:47 AM CDT COMPREHENSIVE METABOLIC PANEL Routine 12/03/2024 12:47 AM CDT PHOSPHORUS Routine 12/03/2024 12:47 AM CDT BMT CBC Routine 12/03/2024 12:47 AM CDT CREATINE KINASE (CK), TOTAL Timed 12/02/2024 7:25 PM CDT EGFR Routine 12/02/2024 12:37 AM CDT MANUAL DIFFERENTIAL Routine 12/02/2024 12:37 AM CDT CBC WITHOUT DIFFERENTIAL Routine 12/02/2024 12:37 AM CDT BASIC METABOLIC PANEL Routine 12/02/2024 12:37 AM CDT PHOSPHORUS Routine 12/02/2024 12:37 AM CDT BMT CBC Routine 12/02/2024 12:37 AM CDT TYPE AND SCREEN Timed 12/02/2024 12:37 AM CDT ECG 12-LEAD Routine 12/01/2024 3:11 PM CDT TRANSFUSE RED BLOOD CELLS Timed 12/01/2024 3:00 AM CDT Other pancytopenia (HCC) PREPARE RBC Timed 12/01/2024 1:24 AM CDT Other pancytopenia (HCC) IMMATURE PLATELET FRACTION Routine 12/01/2024 12:33 AM CDT EGFR Routine 12/01/2024 12:33 AM CDT MANUAL DIFFERENTIAL Routine 12/01/2024 12:33 AM CDT CBC WITHOUT DIFFERENTIAL Routine 12/01/2024 12:33 AM CDT BASIC METABOLIC PANEL Routine 12/01/2024 12:33 AM CDT PHOSPHORUS Routine 12/01/2024 12:33 AM CDT BMT CBC Routine 12/01/2024 12:33 AM CDT BLOOD CULTURE Routine 12/01/2024 12:33 AM CDT EGFR Routine 11/30/2024 12:42 PM CDT PHOSPHORUS Routine 11/30/2024 12:42 PM CDT BASIC METABOLIC PANEL Routine 11/30/2024 12:42 PM CDT ECG 12-LEAD Routine 11/30/2024 8:22 AM CDT BLOOD CULTURE STAT 11/30/2024 3:36 AM CDT IMMATURE PLATELET FRACTION Routine 11/30/2024 12:31 AM CDT MAGNESIUM Routine 11/30/2024 12:31 AM CDT EGFR Routine 11/30/2024 12:31 AM CDT MANUAL DIFFERENTIAL Routine 11/30/2024 12:31 AM CDT CBC WITHOUT DIFFERENTIAL Routine 11/30/2024 12:31 AM CDT PROTIME-INR Routine 11/30/2024 12:31 AM CDT APTT Routine 11/30/2024 12:31 AM CDT LACTATE DEHYDROGENASE Routine 11/30/2024 12:31 AM CDT URIC ACID Routine 11/30/2024 12:31 AM CDT COMPREHENSIVE METABOLIC PANEL Routine 11/30/2024 12:31 AM CDT TYPE AND SCREEN Timed 11/30/2024 12:31 AM CDT PHOSPHORUS Routine 11/30/2024 12:31 AM CDT BMT CBC Routine 11/30/2024 12:31 AM CDT VANCOMYCIN LEVEL TROUGH Timed 11/29/2024 8:41 PM CDT ECG 12-LEAD Routine 11/29/2024 4:03 PM CDT URINALYSIS, MICROSCOPIC ONLY STAT 11/29/2024 4:26 AM CDT URINE CULTURE STAT 11/29/2024 4:26 AM CDT URINALYSIS AND REFLEX TO MICROSCOPIC AND CULTURE STAT 11/29/2024 4:[address] ABDOMEN PELVIS W CONTRAST ED Urgent/IP Urgent 11/29/2024 2:59 AM CDT LACTATE, WHOLE BLOOD STAT 11/29/2024 1:44 AM CDT BLOOD CULTURE Routine 11/29/2024 1:23 AM CDT CRP (ACUTE PHASE) Routine 11/29/2024 12:38 AM CDT IMMATURE PLATELET FRACTION Routine 11/29/2024 12:38 AM CDT EGFR Routine 11/29/2024 12:38 AM CDT MANUAL DIFFERENTIAL Routine 11/29/2024 12:38 AM CDT CBC WITHOUT DIFFERENTIAL Routine 11/29/2024 12:38 AM CDT BASIC METABOLIC PANEL Routine 11/29/2024 12:38 AM CDT PHOSPHORUS Routine 11/29/2024 12:38 AM CDT BMT CBC Routine 11/29/2024 12:38 AM CDT TYPE AND SCREEN Timed 11/29/2024 12:38 AM CDT COCCIDIOIDES ANTIBODY SCREEN W/REFLEX Routine 11/28/2024 9:25 AM CDT BLASTOMYCES ANTIBODY, EIA, S Routine 11/28/2024 9:25 AM CDT ECG 12-LEAD Routine 11/28/2024 8:43 AM CDT TRANSFUSE RED BLOOD CELLS Timed 11/28/2024 4:44 AM CDT Other pancytopenia (HCC) VANCOMYCIN LEVEL TROUGH Timed 11/28/2024 3:58 AM CDT PREPARE RBC Timed 11/28/2024 1:19 AM CDT Other pancytopenia (HCC) IMMATURE PLATELET FRACTION Routine 11/28/2024 12:27 AM CDT MAGNESIUM Routine 11/28/2024 12:27 AM CDT EGFR Routine 11/28/2024 12:27 AM CDT MANUAL DIFFERENTIAL Routine 11/28/2024 12:27 AM CDT CBC WITHOUT DIFFERENTIAL Routine 11/28/2024 12:27 AM CDT BASIC METABOLIC PANEL Routine 11/28/2024 12:27 AM CDT PHOSPHORUS Routine 11/28/2024 12:27 AM CDT BMT CBC Routine 11/28/2024 12:27 AM CDT BLOOD CULTURE STAT 11/27/2024 9:07 PM CDT ECG 12-LEAD Routine 11/27/2024 3:[address] SINUS W CONTRAST ED Urgent/IP Urgent 11/28/19 11:[address] CHEST ABDOMEN PELVIS W CONTRAST ED Urgent/IP Urgent 11/27/2024 11:[address] HEAD WO CONTRAST ED Urgent/IP Urgent 11/28/19 7:40 AM CDT TRANSFUSE PLATELETS Timed 11/27/2024 2:20 AM CDT Other pancytopenia (HCC) PREPARE PLATELETS Timed 11/27/2024 1:49 AM CDT Other pancytopenia (HCC) IMMATURE PLATELET FRACTION Routine 11/27/2024 12:25 AM CDT EGFR Routine 11/27/2024 12:25 AM CDT MAGNESIUM Routine 11/27/2024 12:25 AM CDT MANUAL DIFFERENTIAL Routine 11/27/2024 12:25 AM CDT CBC WITHOUT DIFFERENTIAL Routine 11/27/2024 12:25 AM CDT BASIC METABOLIC PANEL Routine 11/27/2024 12:25 AM CDT PHOSPHORUS Routine 11/27/2024 12:25 AM CDT BMT CBC Routine 11/27/2024 12:25 AM CDT LACTATE STAT 11/26/2024 5:12 PM CDT BLOOD CULTURE STAT 11/26/2024 5:12 PM CDT HISTOPLASMA ANTIBODY STAT 11/26/2024 5:12 PM CDT HISTOPLASMA ANTIGEN STAT 11/26/2024 5:12 PM CDT CRYPTOCOCCAL ANTIGEN, SERUM STAT 11/26/2024 5:12 PM CDT ASPERGILLUS GALACTOMANNAN ANTIGEN STAT 11/26/2024 5:12 PM CDT ECG 12-LEAD Routine 11/26/2024 3:53 PM CDT IMMATURE PLATELET FRACTION Routine 11/26/2024 12:26 AM CDT EGFR Routine 11/26/2024 12:26 AM CDT MANUAL DIFFERENTIAL Routine 11/26/2024 12:26 AM CDT CBC WITHOUT DIFFERENTIAL Routine 11/26/2024 12:26 AM CDT URIC ACID Routine 11/26/2024 12:26 AM CDT COMPREHENSIVE METABOLIC PANEL Routine 11/26/2024 12:26 AM CDT PHOSPHORUS Routine 11/26/2024 12:26 AM CDT BMT CBC Routine 11/26/2024 12:26 AM CDT TYPE AND SCREEN Timed 11/26/2024 12:26 AM CDT URINALYSIS, MICROSCOPIC ONLY Routine 11/25/2024 6:52 PM CDT URINE CULTURE Routine 11/25/2024 6:52 PM CDT URINALYSIS AND REFLEX TO MICROSCOPIC AND CULTURE Routine 11/25/2024 6:52 PM CDT XR CHEST 1 VIEW ED Urgent/IP Urgent 11/25/2024 5:48 PM CDT RESPIRATORY PATHOGEN PANEL Routine 11/25/2024 5:41 PM CDT BLOOD CULTURE Routine 11/25/2024 5:41 PM CDT CREATINE KINASE (CK), TOTAL Timed 11/25/2024 5:32 PM CDT LACTATE STAT 11/25/2024 5:32 PM CDT BLOOD CULTURE Routine 11/25/2024 5:32 PM CDT ECG 12-LEAD Routine 11/25/2024 9:05 AM CDT TRANSFUSE RED BLOOD CELLS Timed 11/25/2024 3:18 AM CDT Other pancytopenia (HCC) IMMATURE PLATELET FRACTION Routine 11/25/2024 12:53 AM CDT EGFR Routine 11/25/2024 12:53 AM CDT MANUAL DIFFERENTIAL Routine 11/25/2024 12:53 AM CDT CBC WITHOUT DIFFERENTIAL Routine 11/25/2024 12:53 AM CDT BASIC METABOLIC PANEL Routine 11/25/2024 12:53 AM CDT PHOSPHORUS Routine 11/25/2024 12:53 AM CDT MAGNESIUM Routine 11/25/2024 12:53 AM CDT BMT CBC Routine 11/25/2024 12:53 AM CDT ECG 12-LEAD Routine 11/24/2024 9:40 AM CDT TRANSFUSE PLATELETS Timed 11/24/2024 4:17 AM CDT Other pancytopenia (HCC) PREPARE PLATELETS Timed 11/24/2024 1:14 AM CDT Other pancytopenia (HCC) PREPARE RBC Timed 11/24/2024 1:14 AM CDT Other pancytopenia (HCC) IMMATURE PLATELET FRACTION Routine 11/24/2024 12:27 AM CDT EGFR Routine 11/24/2024 12:27 AM CDT MANUAL DIFFERENTIAL Routine 11/24/2024 12:27 AM CDT CBC WITHOUT DIFFERENTIAL Routine 11/24/2024 12:27 AM CDT BASIC METABOLIC PANEL Routine 11/24/2024 12:27 AM CDT PHOSPHORUS Routine 11/24/2024 12:27 AM CDT MAGNESIUM Routine 11/24/2024 12:27 AM CDT BMT CBC Routine 11/24/2024 12:27 AM CDT ECG 12-LEAD STAT 11/23/2024 9:22 AM CDT IMMATURE PLATELET FRACTION Routine 11/23/2024 12:36 AM CDT EGFR Routine 11/23/2024 12:36 AM CDT MANUAL DIFFERENTIAL Routine 11/23/2024 12:36 AM CDT CBC WITHOUT DIFFERENTIAL Routine 11/23/2024 12:36 AM CDT PROTIME-INR Routine 11/23/2024 12:36 AM CDT APTT Routine 11/23/2024 12:36 AM CDT LACTATE DEHYDROGENASE Routine 11/23/2024 12:36 AM CDT URIC ACID Routine 11/23/2024 12:36 AM CDT COMPREHENSIVE METABOLIC PANEL Routine 11/23/2024 12:36 AM CDT TYPE AND SCREEN Timed 11/23/2024 12:36 AM CDT PHOSPHORUS Routine 11/23/2024 12:36 AM CDT MAGNESIUM Routine 11/23/2024 12:36 AM CDT BMT CBC Routine 11/23/2024 12:36 AM CDT IMMATURE PLATELET FRACTION Routine 11/22/2024 1:02 AM CDT EGFR Routine 11/22/2024 1:02 AM CDT MANUAL DIFFERENTIAL Routine 11/22/2024 1:02 AM CDT CBC WITHOUT DIFFERENTIAL Routine 11/22/2024 1:02 AM CDT BASIC METABOLIC PANEL Routine 11/22/2024 1:02 AM CDT PHOSPHORUS Routine 11/22/2024 1:02 AM CDT MAGNESIUM Routine 11/22/2024 1:02 AM CDT BMT CBC Routine 11/22/2024 1:02 AM CDT IMMATURE PLATELET FRACTION Routine 11/21/2024 12:36 AM CDT EGFR Routine 11/21/2024 12:36 AM CDT MANUAL DIFFERENTIAL Routine 11/21/2024 12:36 AM CDT CBC WITHOUT DIFFERENTIAL Routine 11/21/2024 12:36 AM CDT BASIC METABOLIC PANEL Routine 11/21/2024 12:36 AM CDT PHOSPHORUS Routine 11/21/2024 12:36 AM CDT MAGNESIUM Routine 11/21/2024 12:36 AM CDT BMT CBC Routine 11/21/2024 12:36 AM CDT TRANSFUSE PLATELETS Timed 11/20/2024 4:15 AM CDT Other pancytopenia (HCC) PREPARE PLATELETS Timed 11/20/2024 2:11 AM CDT Other pancytopenia (HCC) IMMATURE PLATELET FRACTION Routine 11/20/2024 12:28 AM CDT EGFR Routine 11/20/2024 12:28 AM CDT MANUAL DIFFERENTIAL Routine 11/20/2024 12:28 AM CDT CBC WITHOUT DIFFERENTIAL Routine 11/20/2024 12:28 AM CDT BASIC METABOLIC PANEL Routine 11/20/2024 12:28 AM CDT PHOSPHORUS Routine 11/20/2024 12:28 AM CDT MAGNESIUM Routine 11/20/2024 12:28 AM CDT BMT CBC Routine 11/20/2024 12:28 AM CDT TYPE AND SCREEN Timed 11/20/2024 12:28 AM CDT ECG 12-LEAD STAT 11/19/2024 4:18 PM CDT AEROBIC AND ANAEROBIC CULTURE AND GRAM STAIN Routine 11/19/2024 1:28 PM CDT IMMATURE PLATELET FRACTION Routine 11/19/2024 12:33 AM CDT EGFR Routine 11/19/2024 12:33 AM CDT MANUAL DIFFERENTIAL Routine 11/19/2024 12:33 AM CDT CBC WITHOUT DIFFERENTIAL Routine 11/19/2024 12:33 AM CDT LACTATE DEHYDROGENASE Routine 11/19/2024 12:33 AM CDT URIC ACID Routine 11/19/2024 12:33 AM CDT COMPREHENSIVE METABOLIC PANEL Routine 11/19/2024 12:33 AM CDT TYPE AND SCREEN Timed 11/19/2024 12:33 AM CDT PHOSPHORUS Routine 11/19/2024 12:33 AM CDT MAGNESIUM Routine 11/19/2024 12:33 AM CDT BMT CBC Routine 11/19/2024 12:[address] ABDOMEN PELVIS W CONTRAST ED Urgent/IP Urgent 11/18/2024 8:10 PM CDT IMMATURE PLATELET FRACTION Routine 11/18/2024 12:23 AM CDT EGFR Routine 11/18/2024 12:23 AM CDT MANUAL DIFFERENTIAL Routine 11/18/2024 12:23 AM CDT CBC WITHOUT DIFFERENTIAL Routine 11/18/2024 12:23 AM CDT BASIC METABOLIC PANEL Routine 11/18/2024 12:23 AM CDT PHOSPHORUS Routine 11/18/2024 12:23 AM CDT MAGNESIUM Routine 11/18/2024 12:23 AM CDT BMT CBC Routine 11/18/2024 12:23 AM CDT BLOOD CULTURE Routine 11/18/2024 12:23 AM CDT BLOOD CULTURE Routine 11/18/2024 12:23 AM CDT HERPES SIMPLEX VIRUS (HSV) PCR STAT 11/17/2024 3:47 PM CDT TRANSFUSE PLATELETS Routine 11/17/2024 3:01 AM CDT Other pancytopenia (HCC) PREPARE PLATELETS Timed 11/17/2024 1:56 AM CDT Other pancytopenia (HCC) IMMATURE PLATELET FRACTION Routine 11/17/2024 12:24 AM CDT EGFR Routine 11/17/2024 12:24 AM CDT MANUAL DIFFERENTIAL Routine 11/17/2024 12:24 AM CDT CBC WITHOUT DIFFERENTIAL Routine 11/17/2024 12:24 AM CDT BASIC METABOLIC PANEL Routine 11/17/2024 12:24 AM CDT PHOSPHORUS Routine 11/17/2024 12:24 AM CDT MAGNESIUM Routine 11/17/2024 12:24 AM CDT BMT CBC Routine 11/17/2024 12:24 AM CDT TYPE AND SCREEN Timed 11/17/2024 12:24 AM CDT BLOOD CULTURE Routine 11/17/2024 12:24 AM CDT BLOOD CULTURE Routine 11/17/2024 12:24 AM CDT TRANSFUSE RED BLOOD CELLS Timed 11/16/2024 4:52 AM CDT Other pancytopenia (HCC) BLOOD CULTURE Routine 11/16/2024 4:48 AM CDT BLOOD CULTURE Routine 11/16/2024 4:48 AM CDT PREPARE RBC Timed 11/16/2024 1:27 AM CDT Other pancytopenia (HCC) IMMATURE PLATELET FRACTION Routine 11/16/2024 12:24 AM CDT EGFR Routine 11/16/2024 12:24 AM CDT MANUAL DIFFERENTIAL Routine 11/16/2024 12:24 AM CDT CBC WITHOUT DIFFERENTIAL Routine 11/16/2024 12:24 AM CDT PROTIME-INR Routine 11/16/2024 12:24 AM CDT APTT Routine 11/16/2024 12:24 AM CDT LACTATE DEHYDROGENASE Routine 11/16/2024 12:24 AM CDT URIC ACID Routine 11/16/2024 12:24 AM CDT COMPREHENSIVE METABOLIC PANEL Routine 11/16/2024 12:24 AM CDT TYPE AND SCREEN Timed 11/16/2024 12:24 AM CDT PHOSPHORUS Routine 11/16/2024 12:24 AM CDT MAGNESIUM Routine 11/16/2024 12:24 AM CDT BMT CBC Routine 11/16/2024 12:24 AM CDT FIBRINOGEN Routine 11/15/2024 4:33 PM CDT LACTATE Routine 11/15/2024 4:33 PM CDT INFECTION PREVENTION VRE CULTURE STAT 11/15/2024 4:33 PM CDT CREATINE KINASE (CK), TOTAL Routine 11/15/2024 12:51 PM CDT HERPES SIMPLEX VIRUS (HSV) PCR STAT 11/15/2024 11:35 AM CDT HERPES SIMPLEX VIRUS (HSV) PCR Routine 11/15/2024 11:[address] ABDOMEN PELVIS W CONTRAST ED Urgent/IP Urgent 11/15/2024 10:25 AM CDT TRANSFUSE PLATELETS Timed 11/15/2024 1:43 AM CDT Other pancytopenia (HCC) IMMATURE PLATELET FRACTION Routine 11/15/2024 1:31 AM CDT EGFR Routine 11/15/2024 1:31 AM CDT MANUAL DIFFERENTIAL Routine 11/15/2024 1:31 AM CDT CBC WITHOUT DIFFERENTIAL Routine 11/15/2024 1:31 AM CDT BASIC METABOLIC PANEL Routine 11/15/2024 1:31 AM CDT PHOSPHORUS Routine 11/15/2024 1:31 AM CDT MAGNESIUM Routine 11/15/2024 1:31 AM CDT BMT CBC Routine 11/15/2024 1:31 AM CDT ARTERIAL BLOOD GAS W/LACTATE Routine 11/15/2024 1:28 AM CDT SEPSIS LACTATE WITH REFLEX STAT 11/14/2024 10:32 PM CDT FIBRINOGEN STAT 11/14/2024 10:32 PM CDT APTT STAT 11/14/2024 10:32 PM CDT PROTIME-INR STAT 11/14/2024 10:32 PM CDT URIC ACID STAT 11/14/2024 10:32 PM CDT LACTATE DEHYDROGENASE STAT 11/14/2024 10:32 PM CDT PREPARE PLATELETS Timed 11/14/2024 10:09 PM CDT Other pancytopenia (HCC) ECG 12-LEAD Routine 11/14/2024 8:18 PM CDT XR CHEST 1 VIEW IP Routine 11/14/2024 7:27 PM CDT POC BLOOD GAS AND CHEMISTRIES, ARTERIAL Routine 11/14/2024 6:58 PM CDT IMMATURE PLATELET FRACTION STAT 11/14/2024 6:49 PM CDT EGFR STAT 11/14/2024 6:49 PM CDT URINALYSIS, MICROSCOPIC ONLY Routine 11/14/2024 6:49 PM CDT DIFFERENTIAL AUTO STAT 11/14/2024 6:49 PM CDT BILIRUBIN, DIRECT Routine 11/14/2024 6:49 PM CDT TYPE AND SCREEN STAT 11/14/2024 6:49 PM CDT PHOSPHORUS STAT 11/14/2024 6:49 PM CDT MAGNESIUM STAT 11/14/2024 6:49 PM CDT COMPREHENSIVE METABOLIC PANEL STAT 11/14/2024 6:49 PM CDT CBC WITH AUTO DIFFERENTIAL STAT 11/14/2024 6:49 PM CDT URINALYSIS AND REFLEX TO MICROSCOPIC AND CULTURE Routine 11/14/2024 6:49 PM CDT BLOOD CULTURE STAT 11/14/2024 6:49 PM CDT BLOOD CULTURE STAT 11/14/2024 6:49 PM CDT RESPIRATORY PATHOGEN PANEL Routine 11/14/2024 6:49 PM CDT EGFR Routine 11/13/2024 8:34 AM CDT Acute 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) MANUAL DIFFERENTIAL Routine 11/13/2024 8:34 AM CDT Acute 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) TYPE AND SCREEN Routine 11/13/2024 8:34 AM CDT Acute 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) URIC ACID Routine 11/13/2024 8:34 AM CDT Acute 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) LACTATE DEHYDROGENASE Routine 11/13/2024 8:34 AM CDT Acute 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) COMPREHENSIVE METABOLIC PANEL Routine 11/13/2024 8:34 AM CDT Acute 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) CBC WITH AUTO DIFFERENTIAL Routine 11/13/2024 8:34 AM CDT Acute 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) TRANSFUSE RED BLOOD CELLS Timed 11/11/2024 3:52 AM CDT Other pancytopenia (HCC) PREPARE RBC Timed 11/11/2024 1:51 AM CDT Other pancytopenia (HCC) MAGNESIUM Routine 11/11/2024 12:40 AM CDT EGFR Routine 11/11/2024 12:40 AM CDT MANUAL DIFFERENTIAL Routine 11/11/2024 12:40 AM CDT CBC WITHOUT DIFFERENTIAL Routine 11/11/2024 12:40 AM CDT HEPATIC FUNCTION PANEL Routine 11/11/2024 12:40 AM CDT BASIC METABOLIC PANEL Routine 11/11/2024 12:40 AM CDT PHOSPHORUS Routine 11/11/2024 12:40 AM CDT BMT CBC Routine 11/11/2024 12:40 AM CDT EGFR Routine 11/10/2024 12:22 AM CDT MANUAL DIFFERENTIAL Routine 11/10/2024 12:22 AM CDT CBC WITHOUT DIFFERENTIAL Routine 11/10/2024 12:22 AM CDT HEPATIC FUNCTION PANEL Routine 11/10/2024 12:22 AM CDT BASIC METABOLIC PANEL Routine 11/10/2024 12:22 AM CDT PHOSPHORUS Routine 11/10/2024 12:22 AM CDT BMT CBC Routine 11/10/2024 12:22 AM CDT EGFR Timed 11/09/2024 3:29 PM CDT Acute 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) URIC ACID Timed 11/09/2024 3:29 PM CDT Acute 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) PHOSPHORUS Timed 11/09/2024 3:29 PM CDT Acute 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) BASIC METABOLIC PANEL Timed 11/09/2024 3:29 PM CDT Acute 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) XR CHEST 1 VIEW IP Routine 11/09/2024 10:39 AM CDT ECG 12-LEAD STAT 11/09/2024 8:31 AM CDT EGFR Timed 11/09/2024 8:05 AM CDT Acute 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) URIC ACID Timed 11/09/2024 8:05 AM CDT Acute 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) PHOSPHORUS Timed 11/09/2024 8:05 AM CDT Acute 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) BASIC METABOLIC PANEL Timed 11/09/2024 8:05 AM CDT Acute 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) EGFR Routine 11/09/2024 12:42 AM CDT MANUAL DIFFERENTIAL Routine 11/09/2024 12:42 AM CDT CBC WITHOUT DIFFERENTIAL Routine 11/09/2024 12:42 AM CDT PROTIME-INR Routine 11/09/2024 12:42 AM CDT APTT Routine 11/09/2024 12:42 AM CDT LACTATE DEHYDROGENASE Routine 11/09/2024 12:42 AM CDT URIC ACID Routine 11/09/2024 12:42 AM CDT COMPREHENSIVE METABOLIC PANEL Routine 11/09/2024 12:42 AM CDT TYPE AND SCREEN Timed 11/09/2024 12:42 AM CDT PHOSPHORUS Routine 11/09/2024 12:42 AM CDT BMT CBC Routine 11/09/2024 12:42 AM CDT EGFR Timed 11/08/2024 4:44 PM CDT Acute 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) URIC ACID Timed 11/08/2024 4:44 PM CDT Acute 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) PHOSPHORUS Timed 11/08/2024 4:44 PM CDT Acute 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) BASIC METABOLIC PANEL Timed 11/08/2024 4:44 PM CDT Acute 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) EGFR Timed 11/08/2024 8:46 AM CDT Acute 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) URIC ACID Timed 11/08/2024 8:46 AM CDT Acute 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) PHOSPHORUS Timed 11/08/2024 8:46 AM CDT Acute 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) BASIC METABOLIC PANEL Timed 11/08/2024 8:46 AM CDT Acute 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) POCT GLUCOSE DEVICE Routine 11/08/2024 3:03 AM CDT HEPATIC FUNCTION PANEL Timed 11/08/2024 12:41 AM REFINERY PROCESS ENGINEER Acute 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) EGFR Timed 11/08/2024 12:41 AM REFINERY PROCESS ENGINEER Acute 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) MANUAL DIFFERENTIAL Routine 11/08/2024 12:41 AM REFINERY PROCESS ENGINEER CBC WITHOUT DIFFERENTIAL Routine 11/08/2024 12:41 AM REFINERY PROCESS ENGINEER BMT CBC Routine 11/08/2024 12:41 AM REFINERY PROCESS ENGINEER URIC ACID Timed 11/08/2024 12:41 AM REFINERY PROCESS ENGINEER Acute 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) PHOSPHORUS Timed 11/08/2024 12:41 AM REFINERY PROCESS ENGINEER Acute 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) BASIC METABOLIC PANEL Timed 11/08/2024 12:41 AM REFINERY PROCESS ENGINEER Acute 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) EGFR Timed 11/07/2024 4:26 PM REFINERY PROCESS ENGINEER Acute 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) URIC ACID Timed 11/07/2024 4:26 PM REFINERY PROCESS ENGINEER Acute 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) PHOSPHORUS Timed 11/07/2024 4:26 PM REFINERY PROCESS ENGINEER Acute 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) BASIC METABOLIC PANEL Timed 11/07/2024 4:26 PM REFINERY PROCESS ENGINEER Acute 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) EGFR Timed 11/07/2024 8:47 AM REFINERY PROCESS ENGINEER Acute 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) URIC ACID Timed 11/07/2024 8:47 AM REFINERY PROCESS ENGINEER Acute 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) PHOSPHORUS Timed 11/07/2024 8:47 AM REFINERY PROCESS ENGINEER Acute 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) BASIC METABOLIC PANEL Timed 11/07/2024 8:47 AM REFINERY PROCESS ENGINEER Acute 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) EGFR Timed 11/07/2024 12:35 AM REFINERY PROCESS ENGINEER Acute 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) MAGNESIUM Timed 11/07/2024 12:35 AM REFINERY PROCESS ENGINEER Acute 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) MANUAL DIFFERENTIAL Routine 11/07/2024 12:35 AM REFINERY PROCESS ENGINEER CBC WITHOUT DIFFERENTIAL Routine 11/07/2024 12:35 AM REFINERY PROCESS ENGINEER URIC ACID Timed 11/07/2024 12:35 AM REFINERY PROCESS ENGINEER Acute 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) PHOSPHORUS Timed 11/07/2024 12:35 AM REFINERY PROCESS ENGINEER Acute 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) BASIC METABOLIC PANEL Timed 11/07/2024 12:35 AM REFINERY PROCESS ENGINEER Acute 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) BMT CBC Routine 11/07/2024 12:35 AM REFINERY PROCESS ENGINEER XR CHEST 1 VIEW IP Routine 11/06/2024 9:09 PM REFINERY PROCESS ENGINEER EGFR STAT 11/06/2024 8:56 PM REFINERY PROCESS ENGINEER SENIOR STAFF REVIEW STAT 11/06/2024 8:56 PM REFINERY PROCESS ENGINEER MANUAL DIFFERENTIAL STAT 11/06/2024 8:56 PM REFINERY PROCESS ENGINEER CBC WITHOUT DIFFERENTIAL STAT 11/06/2024 8:56 PM REFINERY PROCESS ENGINEER FIBRINOGEN STAT 11/06/2024 8:56 PM REFINERY PROCESS ENGINEER TYPE AND SCREEN STAT 11/06/2024 8:56 PM REFINERY PROCESS ENGINEER APTT STAT 11/06/2024 8:56 PM REFINERY PROCESS ENGINEER PROTIME-INR STAT 11/06/2024 8:56 PM REFINERY PROCESS ENGINEER URIC ACID STAT 11/06/2024 8:56 PM REFINERY PROCESS ENGINEER LACTATE DEHYDROGENASE STAT 11/06/2024 8:56 PM REFINERY PROCESS ENGINEER PHOSPHORUS STAT 11/06/2024 8:56 PM REFINERY PROCESS ENGINEER MAGNESIUM STAT 11/06/2024 8:56 PM REFINERY PROCESS ENGINEER COMPREHENSIVE METABOLIC PANEL STAT 11/06/2024 8:56 PM REFINERY PROCESS ENGINEER BMT CBC STAT 11/06/2024 8:56 PM REFINERY PROCESS ENGINEER MEASURABLE RESIDUAL DISEASE (MRD) MYELOSEQ HEME NGS PANEL WITH INTERPRETATION Routine 11/04/2024 12:03 PM REFINERY PROCESS ENGINEER CYTOGENETICS Routine 11/04/2024 12:03 PM REFINERY PROCESS ENGINEER MISCELLANEOUS MOLECULAR SEND-OUT REQUEST Routine 11/04/2024 12:03 PM REFINERY PROCESS ENGINEER Acute 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) MISCELLANEOUS MOLECULAR SEND-OUT REQUEST Routine 11/04/2024 12:03 PM REFINERY PROCESS ENGINEER Acute 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) SURGICAL PATHOLOGY Routine 11/04/2024 12:02 PM REFINERY PROCESS ENGINEER Acute 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) FLOW LEUKEMIA/LYMPHOMA Routine 11/04/2024 12:02 PM REFINERY PROCESS ENGINEER Acute 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) CYTOGENETICS TRACKING ORDER Routine 11/04/2024 12:02 PM REFINERY PROCESS ENGINEER Acute 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) HEMATOLOGIC MOLECULAR ALGORITHM Routine 11/04/2024 12:02 PM REFINERY PROCESS ENGINEER Acute 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) MYELOSEQ TRACKING ORDER Routine 11/04/2024 12:02 PM REFINERY PROCESS ENGINEER Acute 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) MINIMAL RESIDUAL DISEASE-AML Routine 11/04/2024 12:02 PM REFINERY PROCESS ENGINEER Acute 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) EGFR STAT 11/03/2024 1:14 PM REFINERY PROCESS ENGINEER Acute 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) DIFFERENTIAL AUTO STAT 11/03/2024 1:14 PM REFINERY PROCESS ENGINEER Acute 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) AMYLASE Routine 11/03/2024 1:14 PM REFINERY PROCESS ENGINEER Acute 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) LIPASE Routine 11/03/2024 1:14 PM REFINERY PROCESS ENGINEER Acute 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) BILIRUBIN, DIRECT Routine 11/03/2024 1:14 PM REFINERY PROCESS ENGINEER Acute 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) MAGNESIUM Routine 11/03/2024 1:14 PM REFINERY PROCESS ENGINEER Acute 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) PHOSPHORUS Routine 11/03/2024 1:14 PM REFINERY PROCESS ENGINEER Acute 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) CBC WITH AUTO DIFFERENTIAL STAT 11/03/2024 1:14 PM REFINERY PROCESS ENGINEER Acute 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) COMPREHENSIVE METABOLIC PANEL STAT 11/03/2024 1:14 PM REFINERY PROCESS ENGINEER Acute 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) LACTATE DEHYDROGENASE STAT 11/03/2024 1:14 PM REFINERY PROCESS ENGINEER Acute 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) TYPE AND SCREEN STAT 11/03/2024 1:14 PM REFINERY PROCESS ENGINEER Acute 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) CMV, IGG STAT 11/03/2024 1:14 PM REFINERY PROCESS ENGINEER Acute 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) EGFR Routine 10/28/2024 12:27 AM REFINERY PROCESS ENGINEER MANUAL DIFFERENTIAL Routine 10/28/2024 12:27 AM REFINERY PROCESS ENGINEER CBC WITHOUT DIFFERENTIAL Routine 10/28/2024 12:27 AM REFINERY PROCESS ENGINEER HEPATIC FUNCTION PANEL Routine 10/28/2024 12:27 AM REFINERY PROCESS ENGINEER BASIC METABOLIC PANEL Routine 10/28/2024 12:27 AM REFINERY PROCESS ENGINEER PHOSPHORUS Routine 10/28/2024 12:27 AM REFINERY PROCESS ENGINEER MAGNESIUM Routine 10/28/2024 12:27 AM REFINERY PROCESS ENGINEER BMT CBC Routine 10/28/2024 12:27 AM REFINERY PROCESS ENGINEER CT ABDOMEN PELVIS WO CONTRAST IP Routine 10/27/2024 11:14 AM REFINERY PROCESS ENGINEER XR ABDOMEN AP 1 VIEW IP Routine 10/27/2024 8:25 AM REFINERY PROCESS ENGINEER POCT GLUCOSE DEVICE Routine 10/27/2024 6:10 AM REFINERY PROCESS ENGINEER EGFR Routine 10/27/2024 12:34 AM REFINERY PROCESS ENGINEER MANUAL DIFFERENTIAL Routine 10/27/2024 12:34 AM REFINERY PROCESS ENGINEER CBC WITHOUT DIFFERENTIAL Routine 10/27/2024 12:34 AM REFINERY PROCESS ENGINEER HEPATIC FUNCTION PANEL Routine 10/27/2024 12:34 AM REFINERY PROCESS ENGINEER BASIC METABOLIC PANEL Routine 10/27/2024 12:34 AM REFINERY PROCESS ENGINEER PHOSPHORUS Routine 10/27/2024 12:34 AM REFINERY PROCESS ENGINEER MAGNESIUM Routine 10/27/2024 12:34 AM REFINERY PROCESS ENGINEER BMT CBC Routine 10/27/2024 12:34 AM REFINERY PROCESS ENGINEER XR ABDOMEN AP 1 VIEW IP Routine 10/26/2024 11:16 AM REFINERY PROCESS ENGINEER TRANSFUSE RED BLOOD CELLS Timed 10/26/2024 6:03 AM REFINERY PROCESS ENGINEER Other pancytopenia (HCC) PREPARE RBC Timed 10/26/2024 2:32 AM REFINERY PROCESS ENGINEER Other pancytopenia (HCC) EGFR Routine 10/26/2024 12:57 AM REFINERY PROCESS ENGINEER BILIRUBIN, DIRECT Routine 10/26/2024 12:57 AM REFINERY PROCESS ENGINEER MANUAL DIFFERENTIAL Routine 10/26/2024 12:57 AM REFINERY PROCESS ENGINEER CBC WITHOUT DIFFERENTIAL Routine 10/26/2024 12:57 AM REFINERY PROCESS ENGINEER PROTIME-INR Routine 10/26/2024 12:57 AM REFINERY PROCESS ENGINEER APTT Routine 10/26/2024 12:57 AM REFINERY PROCESS ENGINEER LACTATE DEHYDROGENASE Routine 10/26/2024 12:57 AM REFINERY PROCESS ENGINEER URIC ACID Routine 10/26/2024 12:57 AM REFINERY PROCESS ENGINEER COMPREHENSIVE METABOLIC PANEL Routine 10/26/2024 12:57 AM REFINERY PROCESS ENGINEER TYPE AND SCREEN Timed 10/26/2024 12:57 AM REFINERY PROCESS ENGINEER PHOSPHORUS Routine 10/26/2024 12:57 AM REFINERY PROCESS ENGINEER MAGNESIUM Routine 10/26/2024 12:57 AM REFINERY PROCESS ENGINEER BMT CBC Routine 10/26/2024 12:57 AM REFINERY PROCESS ENGINEER POCT GLUCOSE DEVICE Routine 10/26/2024 12:54 AM REFINERY PROCESS ENGINEER POCT GLUCOSE DEVICE Routine 10/25/2024 12:24 PM REFINERY PROCESS ENGINEER POCT GLUCOSE DEVICE Routine 10/25/2024 7:50 AM REFINERY PROCESS ENGINEER POCT GLUCOSE DEVICE Routine 10/25/2024 12:46 AM REFINERY PROCESS ENGINEER EGFR Routine 10/25/2024 12:46 AM REFINERY PROCESS ENGINEER MANUAL DIFFERENTIAL Routine 10/25/2024 12:46 AM REFINERY PROCESS ENGINEER CBC WITHOUT DIFFERENTIAL Routine 10/25/2024 12:46 AM REFINERY PROCESS ENGINEER HEPATIC FUNCTION PANEL Routine 10/25/2024 12:46 AM REFINERY PROCESS ENGINEER BASIC METABOLIC PANEL Routine 10/25/2024 12:46 AM REFINERY PROCESS ENGINEER PHOSPHORUS Routine 10/25/2024 12:46 AM REFINERY PROCESS ENGINEER MAGNESIUM Routine 10/25/2024 12:46 AM REFINERY PROCESS ENGINEER BMT CBC Routine 10/25/2024 12:46 AM REFINERY PROCESS ENGINEER POCT GLUCOSE DEVICE Routine 10/24/2024 5:52 PM REFINERY PROCESS ENGINEER POCT GLUCOSE DEVICE Routine 10/24/2024 12:00 PM REFINERY PROCESS ENGINEER IMMATURE PLATELET FRACTION Routine 10/24/2024 12:36 AM REFINERY PROCESS ENGINEER EGFR Routine 10/24/2024 12:36 AM REFINERY PROCESS ENGINEER MANUAL DIFFERENTIAL Routine 10/24/2024 12:36 AM REFINERY PROCESS ENGINEER CBC WITHOUT DIFFERENTIAL Routine 10/24/2024 12:36 AM REFINERY PROCESS ENGINEER HEPATIC FUNCTION PANEL Routine 10/24/2024 12:36 AM REFINERY PROCESS ENGINEER BASIC METABOLIC PANEL Routine 10/24/2024 12:36 AM REFINERY PROCESS ENGINEER PHOSPHORUS Routine 10/24/2024 12:36 AM REFINERY PROCESS ENGINEER MAGNESIUM Routine 10/24/2024 12:36 AM REFINERY PROCESS ENGINEER BMT CBC Routine 10/24/2024 12:36 AM REFINERY PROCESS ENGINEER POCT GLUCOSE DEVICE Routine 10/24/2024 12:35 AM REFINERY PROCESS ENGINEER POCT GLUCOSE DEVICE Routine 10/23/2024 11:54 AM REFINERY PROCESS ENGINEER XR ABDOMEN AP 1 VIEW IP Routine 10/23/2024 8:35 AM REFINERY PROCESS ENGINEER POCT GLUCOSE DEVICE Routine 10/23/2024 5:15 AM REFINERY PROCESS ENGINEER IMMATURE PLATELET FRACTION Routine 10/23/2024 3:11 AM REFINERY PROCESS ENGINEER EGFR Routine 10/23/2024 3:11 AM REFINERY PROCESS ENGINEER MANUAL DIFFERENTIAL Routine 10/23/2024 3:11 AM REFINERY PROCESS ENGINEER CBC WITHOUT DIFFERENTIAL Routine 10/23/2024 3:11 AM REFINERY PROCESS ENGINEER HEPATIC FUNCTION PANEL Routine 10/23/2024 3:11 AM REFINERY PROCESS ENGINEER BASIC METABOLIC PANEL Routine 10/23/2024 3:11 AM REFINERY PROCESS ENGINEER PHOSPHORUS Routine 10/23/2024 3:11 AM REFINERY PROCESS ENGINEER MAGNESIUM Routine 10/23/2024 3:11 AM REFINERY PROCESS ENGINEER BMT CBC Routine 10/23/2024 3:11 AM REFINERY PROCESS ENGINEER POCT GLUCOSE DEVICE Routine 10/22/2024 11:12 PM REFINERY PROCESS ENGINEER POCT GLUCOSE DEVICE Routine 10/22/2024 6:07 PM REFINERY PROCESS ENGINEER POCT GLUCOSE DEVICE Routine 10/22/2024 12:13 PM REFINERY PROCESS ENGINEER POCT GLUCOSE DEVICE Routine 10/22/2024 3:32 AM REFINERY PROCESS ENGINEER IMMATURE PLATELET FRACTION Routine 10/22/2024 3:32 AM REFINERY PROCESS ENGINEER EGFR Routine 10/22/2024 3:32 AM REFINERY PROCESS ENGINEER BILIRUBIN, DIRECT Routine 10/22/2024 3:32 AM REFINERY PROCESS ENGINEER MANUAL DIFFERENTIAL Routine 10/22/2024 3:32 AM REFINERY PROCESS ENGINEER CBC WITHOUT DIFFERENTIAL Routine 10/22/2024 3:32 AM REFINERY PROCESS ENGINEER LACTATE DEHYDROGENASE Routine 10/22/2024 3:32 AM REFINERY PROCESS ENGINEER URIC ACID Routine 10/22/2024 3:32 AM REFINERY PROCESS ENGINEER COMPREHENSIVE METABOLIC PANEL Routine 10/22/2024 3:32 AM REFINERY PROCESS ENGINEER TYPE AND SCREEN Timed 10/22/2024 3:32 AM REFINERY PROCESS ENGINEER PHOSPHORUS Routine 10/22/2024 3:32 AM REFINERY PROCESS ENGINEER MAGNESIUM Routine 10/22/2024 3:32 AM REFINERY PROCESS ENGINEER BMT CBC Routine 10/22/2024 3:32 AM REFINERY PROCESS ENGINEER POCT GLUCOSE DEVICE Routine 10/21/2024 9:21 PM REFINERY PROCESS ENGINEER VANCOMYCIN LEVEL TROUGH STAT 10/21/2024 7:06 PM REFINERY PROCESS ENGINEER POCT GLUCOSE DEVICE Routine 10/21/2024 7:05 PM REFINERY PROCESS ENGINEER VANCOMYCIN LEVEL TROUGH STAT 10/21/2024 4:32 PM REFINERY PROCESS ENGINEER POCT GLUCOSE DEVICE Routine 10/21/2024 11:53 AM REFINERY PROCESS ENGINEER POCT GLUCOSE DEVICE Routine 10/21/2024 3:22 AM REFINERY PROCESS ENGINEER IMMATURE PLATELET FRACTION Routine 10/21/2024 3:15 AM REFINERY PROCESS ENGINEER EGFR Routine 10/21/2024 3:15 AM REFINERY PROCESS ENGINEER MANUAL DIFFERENTIAL Routine 10/21/2024 3:15 AM REFINERY PROCESS ENGINEER CBC WITHOUT DIFFERENTIAL Routine 10/21/2024 3:15 AM REFINERY PROCESS ENGINEER HEPATIC FUNCTION PANEL Routine 10/21/2024 3:15 AM REFINERY PROCESS ENGINEER BASIC METABOLIC PANEL Routine 10/21/2024 3:15 AM REFINERY PROCESS ENGINEER PHOSPHORUS Routine 10/21/2024 3:15 AM REFINERY PROCESS ENGINEER MAGNESIUM Routine 10/21/2024 3:15 AM REFINERY PROCESS ENGINEER BMT CBC Routine 10/21/2024 3:15 AM REFINERY PROCESS ENGINEER POCT GLUCOSE DEVICE Routine 10/20/2024 8:55 PM REFINERY PROCESS ENGINEER POCT GLUCOSE DEVICE Routine 10/20/2024 5:53 PM REFINERY PROCESS ENGINEER POCT GLUCOSE DEVICE Routine 10/20/2024 12:29 PM REFINERY PROCESS ENGINEER POCT GLUCOSE DEVICE Routine 10/20/2024 10:51 AM REFINERY PROCESS ENGINEER TRANSFUSE PLATELETS Timed 10/20/2024 6:25 AM REFINERY PROCESS ENGINEER Other pancytopenia (HCC) PREPARE PLATELETS Timed 10/20/2024 5:35 AM REFINERY PROCESS ENGINEER Other pancytopenia (HCC) POCT GLUCOSE DEVICE Routine 10/20/2024 3:39 AM REFINERY PROCESS ENGINEER IMMATURE PLATELET FRACTION Routine 10/20/2024 3:29 AM REFINERY PROCESS ENGINEER EGFR Routine 10/20/2024 3:29 AM REFINERY PROCESS ENGINEER MANUAL DIFFERENTIAL Routine 10/20/2024 3:29 AM REFINERY PROCESS ENGINEER CBC WITHOUT DIFFERENTIAL Routine 10/20/2024 3:29 AM REFINERY PROCESS ENGINEER HEPATIC FUNCTION PANEL Routine 10/20/2024 3:29 AM REFINERY PROCESS ENGINEER BASIC METABOLIC PANEL Routine 10/20/2024 3:29 AM REFINERY PROCESS ENGINEER PHOSPHORUS Routine 10/20/2024 3:29 AM REFINERY PROCESS ENGINEER MAGNESIUM Routine 10/20/2024 3:29 AM REFINERY PROCESS ENGINEER BMT CBC Routine 10/20/2024 3:29 AM REFINERY PROCESS ENGINEER POCT GLUCOSE DEVICE Routine 10/19/2024 8:42 PM REFINERY PROCESS ENGINEER VANCOMYCIN LEVEL TROUGH Timed 10/19/2024 5:02 PM REFINERY PROCESS ENGINEER POCT GLUCOSE DEVICE Routine 10/19/2024 4:50 PM REFINERY PROCESS ENGINEER POCT GLUCOSE DEVICE Routine 10/19/2024 10:44 AM REFINERY PROCESS ENGINEER IMMATURE PLATELET FRACTION STAT 10/19/2024 9:25 AM REFINERY PROCESS ENGINEER CBC WITHOUT DIFFERENTIAL STAT 10/19/2024 9:25 AM REFINERY PROCESS ENGINEER TRANSFUSE PLATELETS Timed 10/19/2024 6:58 AM REFINERY PROCESS ENGINEER Other pancytopenia (HCC) POCT GLUCOSE DEVICE Routine 10/19/2024 6:56 AM REFINERY PROCESS ENGINEER SEPSIS LACTATE WITH REFLEX STAT 10/19/2024 6:53 AM REFINERY PROCESS ENGINEER BLOOD CULTURE STAT 10/19/2024 6:53 AM REFINERY PROCESS ENGINEER BLOOD CULTURE STAT 10/19/2024 6:53 AM REFINERY PROCESS ENGINEER PREPARE PLATELETS Timed 10/19/2024 5:14 AM REFINERY PROCESS ENGINEER Other pancytopenia (HCC) IMMATURE PLATELET FRACTION Routine 10/19/2024 2:59 AM REFINERY PROCESS ENGINEER EGFR Routine 10/19/2024 2:59 AM REFINERY PROCESS ENGINEER MANUAL DIFFERENTIAL Routine 10/19/2024 2:59 AM REFINERY PROCESS ENGINEER CBC WITHOUT DIFFERENTIAL Routine 10/19/2024 2:59 AM REFINERY PROCESS ENGINEER PROTIME-INR Routine 10/19/2024 2:59 AM REFINERY PROCESS ENGINEER APTT Routine 10/19/2024 2:59 AM REFINERY PROCESS ENGINEER LACTATE DEHYDROGENASE Routine 10/19/2024 2:59 AM REFINERY PROCESS ENGINEER URIC ACID Routine 10/19/2024 2:59 AM REFINERY PROCESS ENGINEER COMPREHENSIVE METABOLIC PANEL Routine 10/19/2024 2:59 AM REFINERY PROCESS ENGINEER TYPE AND SCREEN Timed 10/19/2024 2:59 AM REFINERY PROCESS ENGINEER PHOSPHORUS Routine 10/19/2024 2:59 AM REFINERY PROCESS ENGINEER MAGNESIUM Routine 10/19/2024 2:59 AM REFINERY PROCESS ENGINEER BMT CBC Routine 10/19/2024 2:59 AM REFINERY PROCESS ENGINEER ECG 12-LEAD STAT 10/18/2024 9:56 PM REFINERY PROCESS ENGINEER POCT GLUCOSE DEVICE Routine 10/18/2024 9:01 PM REFINERY PROCESS ENGINEER POCT GLUCOSE DEVICE Routine 10/18/2024 9:53 AM REFINERY PROCESS ENGINEER POCT GLUCOSE DEVICE Routine 10/18/2024 6:16 AM REFINERY PROCESS ENGINEER POCT GLUCOSE DEVICE Routine 10/18/2024 6:14 AM REFINERY PROCESS ENGINEER VANCOMYCIN LEVEL TROUGH Timed 10/18/2024 6:05 AM REFINERY PROCESS ENGINEER TRANSFUSE RED BLOOD CELLS Timed 10/18/2024 4:16 AM REFINERY PROCESS ENGINEER Other pancytopenia (HCC) PREPARE RBC Timed 10/18/2024 3:31 AM REFINERY PROCESS ENGINEER Other pancytopenia (HCC) TRANSFUSE PLATELETS Timed 10/18/2024 2:54 AM REFINERY PROCESS ENGINEER Other pancytopenia (HCC) IMMATURE PLATELET FRACTION Routine 10/18/2024 2:38 AM REFINERY PROCESS ENGINEER EGFR Routine 10/18/2024 2:38 AM REFINERY PROCESS ENGINEER MANUAL DIFFERENTIAL Routine 10/18/2024 2:38 AM REFINERY PROCESS ENGINEER CBC WITHOUT DIFFERENTIAL Routine 10/18/2024 2:38 AM REFINERY PROCESS ENGINEER BASIC METABOLIC PANEL Routine 10/18/2024 2:38 AM REFINERY PROCESS ENGINEER PHOSPHORUS Routine 10/18/2024 2:38 AM REFINERY PROCESS ENGINEER MAGNESIUM Routine 10/18/2024 2:38 AM REFINERY PROCESS ENGINEER BMT CBC Routine 10/18/2024 2:38 AM REFINERY PROCESS ENGINEER PREPARE PLATELETS Timed 10/18/2024 2:31 AM REFINERY PROCESS ENGINEER Other pancytopenia (HCC) POCT GLUCOSE DEVICE Routine 10/17/2024 11:41 PM REFINERY PROCESS ENGINEER POCT GLUCOSE DEVICE Routine 10/17/2024 5:56 PM REFINERY PROCESS ENGINEER TRANSFUSE PLATELETS Timed 10/17/2024 2:19 PM REFINERY PROCESS ENGINEER Other pancytopenia (HCC) POCT GLUCOSE DEVICE Routine 10/17/2024 12:01 PM REFINERY PROCESS ENGINEER URINALYSIS, MICROSCOPIC ONLY STAT 10/17/2024 10:07 AM REFINERY PROCESS ENGINEER URINALYSIS AND REFLEX TO MICROSCOPIC AND CULTURE STAT 10/17/2024 10:07 AM REFINERY PROCESS ENGINEER PREPARE PLATELETS Timed 10/17/2024 6:05 AM REFINERY PROCESS ENGINEER Other pancytopenia (HCC) IMMATURE PLATELET FRACTION Routine 10/17/2024 5:12 AM REFINERY PROCESS ENGINEER EGFR Routine 10/17/2024 5:12 AM REFINERY PROCESS ENGINEER MANUAL DIFFERENTIAL Routine 10/17/2024 5:12 AM REFINERY PROCESS ENGINEER CBC WITHOUT DIFFERENTIAL Routine 10/17/2024 5:12 AM REFINERY PROCESS ENGINEER VANCOMYCIN LEVEL TROUGH Timed 10/17/2024 5:12 AM REFINERY PROCESS ENGINEER TRIGLYCERIDES Routine 10/17/2024 5:12 AM REFINERY PROCESS ENGINEER BASIC METABOLIC PANEL Routine 10/17/2024 5:12 AM REFINERY PROCESS ENGINEER PHOSPHORUS Routine 10/17/2024 5:12 AM REFINERY PROCESS ENGINEER MAGNESIUM Routine 10/17/2024 5:12 AM REFINERY PROCESS ENGINEER BMT CBC Routine 10/17/2024 5:12 AM REFINERY PROCESS ENGINEER POCT GLUCOSE DEVICE Routine 10/17/2024 12:10 AM REFINERY PROCESS ENGINEER XR CHEST 1 VIEW ED Urgent/IP Urgent 10/16/2024 8:52 PM REFINERY PROCESS ENGINEER BLOOD CULTURE STAT 10/16/2024 8:30 PM REFINERY PROCESS ENGINEER BLOOD CULTURE STAT 10/16/2024 8:30 PM REFINERY PROCESS ENGINEER MRSA ONLY (STAPHYLOCOCCUS AUREUS) CULTURE STAT 10/16/2024 8:26 PM REFINERY PROCESS ENGINEER RESPIRATORY PATHOGEN PANEL STAT 10/16/2024 8:26 PM REFINERY PROCESS ENGINEER POCT GLUCOSE DEVICE Routine 10/16/2024 5:16 PM REFINERY PROCESS ENGINEER SURGICAL PATHOLOGY Routine 10/16/2024 1:57 PM REFINERY PROCESS ENGINEER FLOW LEUKEMIA/LYMPHOMA Timed 10/16/2024 11:50 AM REFINERY PROCESS ENGINEER TRANSFUSE PLATELETS Timed 10/16/2024 10:53 AM REFINERY PROCESS ENGINEER Other pancytopenia (HCC) PREPARE PLATELETS Timed 10/16/2024 9:56 AM REFINERY PROCESS ENGINEER Other pancytopenia (HCC) IMMATURE PLATELET FRACTION Routine 10/16/2024 4:23 AM REFINERY PROCESS ENGINEER EGFR Routine 10/16/2024 4:23 AM REFINERY PROCESS ENGINEER MANUAL DIFFERENTIAL Routine 10/16/2024 4:23 AM REFINERY PROCESS ENGINEER CBC WITHOUT DIFFERENTIAL Routine 10/16/2024 4:23 AM REFINERY PROCESS ENGINEER BASIC METABOLIC PANEL Routine 10/16/2024 4:23 AM REFINERY PROCESS ENGINEER PHOSPHORUS Routine 10/16/2024 4:23 AM REFINERY PROCESS ENGINEER MAGNESIUM Routine 10/16/2024 4:23 AM REFINERY PROCESS ENGINEER BMT CBC Routine 10/16/2024 4:23 AM REFINERY PROCESS ENGINEER VANCOMYCIN LEVEL TROUGH Routine 10/15/2024 9:26 PM REFINERY PROCESS ENGINEER TRANSFUSE PLATELETS Timed 10/15/2024 3:55 PM REFINERY PROCESS ENGINEER Other pancytopenia (HCC) PREPARE PLATELETS Timed 10/15/2024 5:42 AM REFINERY PROCESS ENGINEER Other pancytopenia (HCC) IMMATURE PLATELET FRACTION Routine 10/15/2024 3:06 AM REFINERY PROCESS ENGINEER EGFR Routine 10/15/2024 3:06 AM REFINERY PROCESS ENGINEER MANUAL DIFFERENTIAL Routine 10/15/2024 3:06 AM REFINERY PROCESS ENGINEER CBC WITHOUT DIFFERENTIAL Routine 10/15/2024 3:06 AM REFINERY PROCESS ENGINEER LACTATE DEHYDROGENASE Routine 10/15/2024 3:06 AM REFINERY PROCESS ENGINEER URIC ACID Routine 10/15/2024 3:06 AM REFINERY PROCESS ENGINEER COMPREHENSIVE METABOLIC PANEL Routine 10/15/2024 3:06 AM REFINERY PROCESS ENGINEER TYPE AND SCREEN Timed 10/15/2024 3:06 AM REFINERY PROCESS ENGINEER PHOSPHORUS Routine 10/15/2024 3:06 AM REFINERY PROCESS ENGINEER MAGNESIUM Routine 10/15/2024 3:06 AM REFINERY PROCESS ENGINEER BMT CBC Routine 10/15/2024 3:06 AM REFINERY PROCESS ENGINEER BLOOD CULTURE STAT 10/14/2024 12:54 PM REFINERY PROCESS ENGINEER BLOOD CULTURE STAT 10/14/2024 12:54 PM REFINERY PROCESS ENGINEER TRANSFUSE PLATELETS Timed 10/14/2024 12:46 PM REFINERY PROCESS ENGINEER Other pancytopenia (HCC) PREPARE PLATELETS Timed 10/14/2024 5:58 AM REFINERY PROCESS ENGINEER Other pancytopenia (HCC) IMMATURE PLATELET FRACTION Routine 10/14/2024 3:40 AM REFINERY PROCESS ENGINEER EGFR Routine 10/14/2024 3:40 AM REFINERY PROCESS ENGINEER MANUAL DIFFERENTIAL Routine 10/14/2024 3:40 AM REFINERY PROCESS ENGINEER CBC WITHOUT DIFFERENTIAL Routine 10/14/2024 3:40 AM REFINERY PROCESS ENGINEER BASIC METABOLIC PANEL Routine 10/14/2024 3:40 AM REFINERY PROCESS ENGINEER PHOSPHORUS Routine 10/14/2024 3:40 AM REFINERY PROCESS ENGINEER MAGNESIUM Routine 10/14/2024 3:40 AM REFINERY PROCESS ENGINEER BMT CBC Routine 10/14/2024 3:40 AM REFINERY PROCESS ENGINEER TRANSFUSE RED BLOOD CELLS Timed 10/13/2024 12:18 PM REFINERY PROCESS ENGINEER Other pancytopenia (HCC) TRANSFUSE PLATELETS Timed 10/13/2024 6:45 AM REFINERY PROCESS ENGINEER Other pancytopenia (HCC) PREPARE PLATELETS Timed 10/13/2024 4:42 AM REFINERY PROCESS ENGINEER Other pancytopenia (HCC) PREPARE RBC Timed 10/13/2024 4:42 AM REFINERY PROCESS ENGINEER Other pancytopenia (HCC) IMMATURE PLATELET FRACTION Routine 10/13/2024 3:11 AM REFINERY PROCESS ENGINEER EGFR Routine 10/13/2024 3:11 AM REFINERY PROCESS ENGINEER MANUAL DIFFERENTIAL Routine 10/13/2024 3:11 AM REFINERY PROCESS ENGINEER CBC WITHOUT DIFFERENTIAL Routine 10/13/2024 3:11 AM REFINERY PROCESS ENGINEER BASIC METABOLIC PANEL Routine 10/13/2024 3:11 AM REFINERY PROCESS ENGINEER PHOSPHORUS Routine 10/13/2024 3:11 AM REFINERY PROCESS ENGINEER MAGNESIUM Routine 10/13/2024 3:11 AM REFINERY PROCESS ENGINEER BMT CBC Routine 10/13/2024 3:11 AM REFINERY PROCESS ENGINEER TRANSFUSE PLATELETS Routine 10/12/2024 6:45 AM REFINERY PROCESS ENGINEER Other pancytopenia (HCC) PREPARE PLATELETS Timed 10/12/2024 5:32 AM REFINERY PROCESS ENGINEER Other pancytopenia (HCC) IMMATURE PLATELET FRACTION Routine 10/12/2024 3:51 AM REFINERY PROCESS ENGINEER EGFR Routine 10/12/2024 3:51 AM REFINERY PROCESS ENGINEER MANUAL DIFFERENTIAL Routine 10/12/2024 3:51 AM REFINERY PROCESS ENGINEER CBC WITHOUT DIFFERENTIAL Routine 10/12/2024 3:51 AM REFINERY PROCESS ENGINEER PROTIME-INR Routine 10/12/2024 3:51 AM REFINERY PROCESS ENGINEER APTT Routine 10/12/2024 3:51 AM REFINERY PROCESS ENGINEER LACTATE DEHYDROGENASE Routine 10/12/2024 3:51 AM REFINERY PROCESS ENGINEER URIC ACID Routine 10/12/2024 3:51 AM REFINERY PROCESS ENGINEER COMPREHENSIVE METABOLIC PANEL Routine 10/12/2024 3:51 AM REFINERY PROCESS ENGINEER TYPE AND SCREEN Timed 10/12/2024 3:51 AM REFINERY PROCESS ENGINEER PHOSPHORUS Routine 10/12/2024 3:51 AM REFINERY PROCESS ENGINEER MAGNESIUM Routine 10/12/2024 3:51 AM REFINERY PROCESS ENGINEER BMT CBC Routine 10/12/2024 3:51 AM REFINERY PROCESS ENGINEER EGFR Routine 10/11/2024 6:26 PM REFINERY PROCESS ENGINEER BASIC METABOLIC PANEL Routine 10/11/2024 6:26 PM REFINERY PROCESS ENGINEER TRANSFUSE PLATELETS Timed 10/11/2024 4:45 AM REFINERY PROCESS ENGINEER Other pancytopenia (HCC) PREPARE PLATELETS Timed 10/11/2024 3:28 AM REFINERY PROCESS ENGINEER Other pancytopenia (HCC) IMMATURE PLATELET FRACTION Routine 10/11/2024 12:33 AM REFINERY PROCESS ENGINEER EGFR Routine 10/11/2024 12:33 AM REFINERY PROCESS ENGINEER MANUAL DIFFERENTIAL Routine 10/11/2024 12:33 AM REFINERY PROCESS ENGINEER CBC WITHOUT DIFFERENTIAL Routine 10/11/2024 12:33 AM REFINERY PROCESS ENGINEER BASIC METABOLIC PANEL Routine 10/11/2024 12:33 AM REFINERY PROCESS ENGINEER PHOSPHORUS Routine 10/11/2024 12:33 AM REFINERY PROCESS ENGINEER MAGNESIUM Routine 10/11/2024 12:33 AM REFINERY PROCESS ENGINEER BMT CBC Routine 10/11/2024 12:33 AM REFINERY PROCESS ENGINEER EGFR Timed 10/10/2024 5:13 PM REFINERY PROCESS ENGINEER PHOSPHORUS Timed 10/10/2024 5:13 PM REFINERY PROCESS ENGINEER BASIC METABOLIC PANEL Timed 10/10/2024 5:13 PM REFINERY PROCESS ENGINEER CORTISOL 60 MIN Timed 10/10/2024 2:22 PM REFINERY PROCESS ENGINEER COSYNTROPIN STIMULATION TEST Timed 10/10/2024 2:22 PM REFINERY PROCESS ENGINEER CORTISOL 30 MIN Timed 10/10/2024 1:53 PM REFINERY PROCESS ENGINEER CORTISOL BASELINE Timed 10/10/2024 1:22 PM REFINERY PROCESS ENGINEER EGFR STAT 10/10/2024 8:54 AM REFINERY PROCESS ENGINEER CORTISOL Timed 10/10/2024 8:54 AM REFINERY PROCESS ENGINEER BASIC METABOLIC PANEL STAT 10/10/2024 8:54 AM REFINERY PROCESS ENGINEER TRANSFUSE RED BLOOD CELLS Timed 10/10/2024 6:15 AM REFINERY PROCESS ENGINEER Other pancytopenia (HCC) TRANSFUSE PLATELETS Timed 10/10/2024 4:33 AM REFINERY PROCESS ENGINEER Other pancytopenia (HCC) PREPARE PLATELETS Timed 10/10/2024 3:57 AM REFINERY PROCESS ENGINEER Other pancytopenia (HCC) PREPARE RBC Timed 10/10/2024 3:57 AM REFINERY PROCESS ENGINEER Other pancytopenia (HCC) IMMATURE PLATELET FRACTION Routine 10/10/2024 12:31 AM REFINERY PROCESS ENGINEER EGFR Routine 10/10/2024 12:31 AM REFINERY PROCESS ENGINEER MANUAL DIFFERENTIAL Routine 10/10/2024 12:31 AM REFINERY PROCESS ENGINEER CBC WITHOUT DIFFERENTIAL Routine 10/10/2024 12:31 AM REFINERY PROCESS ENGINEER BASIC METABOLIC PANEL Routine 10/10/2024 12:31 AM REFINERY PROCESS ENGINEER PHOSPHORUS Routine 10/10/2024 12:31 AM REFINERY PROCESS ENGINEER MAGNESIUM Routine 10/10/2024 12:31 AM REFINERY PROCESS ENGINEER BMT CBC Routine 10/10/2024 12:31 AM REFINERY PROCESS ENGINEER ECG 12-LEAD Routine 10/09/2024 5:14 PM REFINERY PROCESS ENGINEER SODIUM, URINE, RANDOM Routine 10/09/2024 4:44 PM REFINERY PROCESS ENGINEER OSMOLALITY, URINE Routine 10/09/2024 4:44 PM REFINERY PROCESS ENGINEER TRANSFUSE PLATELETS Timed 10/09/2024 4:45 AM REFINERY PROCESS ENGINEER Other pancytopenia (HCC) PREPARE PLATELETS Timed 10/09/2024 3:43 AM REFINERY PROCESS ENGINEER Other pancytopenia (HCC) THYROID FUNCTION CASCADE Routine 10/09/2024 12:38 AM REFINERY PROCESS ENGINEER OSMOLALITY, BLOOD Routine 10/09/2024 12:38 AM REFINERY PROCESS ENGINEER IMMATURE PLATELET FRACTION Routine 10/09/2024 12:38 AM REFINERY PROCESS ENGINEER EGFR Routine 10/09/2024 12:38 AM REFINERY PROCESS ENGINEER MANUAL DIFFERENTIAL Routine 10/09/2024 12:38 AM REFINERY PROCESS ENGINEER CBC WITHOUT DIFFERENTIAL Routine 10/09/2024 12:38 AM REFINERY PROCESS ENGINEER BASIC METABOLIC PANEL Routine 10/09/2024 12:38 AM REFINERY PROCESS ENGINEER PHOSPHORUS Routine 10/09/2024 12:38 AM REFINERY PROCESS ENGINEER MAGNESIUM Routine 10/09/2024 12:38 AM REFINERY PROCESS ENGINEER BMT CBC Routine 10/09/2024 12:38 AM REFINERY PROCESS ENGINEER HLA CLASS I DNA (ABC) RECIPIENT STAT 10/08/2024 2:20 PM REFINERY PROCESS ENGINEER HLA ANTIBODY SCREEN BY SINGLE ANTIGEN STAT 10/08/2024 2:20 PM REFINERY PROCESS ENGINEER HLA ANTIBODY SCREEN - SAB (CLASS I AND CLASS II) STAT 10/08/2024 2:20 PM REFINERY PROCESS ENGINEER Other pancytopenia (HCC) TRANSFUSE PLATELETS Timed 10/08/2024 4:46 AM REFINERY PROCESS ENGINEER Other pancytopenia (HCC) PREPARE PLATELETS Timed 10/08/2024 4:08 AM REFINERY PROCESS ENGINEER Other pancytopenia (HCC) IMMATURE PLATELET FRACTION Routine 10/08/2024 12:44 AM REFINERY PROCESS ENGINEER EGFR Routine 10/08/2024 12:44 AM REFINERY PROCESS ENGINEER MANUAL DIFFERENTIAL Routine 10/08/2024 12:44 AM REFINERY PROCESS ENGINEER CBC WITHOUT DIFFERENTIAL Routine 10/08/2024 12:44 AM REFINERY PROCESS ENGINEER LACTATE DEHYDROGENASE Routine 10/08/2024 12:44 AM REFINERY PROCESS ENGINEER URIC ACID Routine 10/08/2024 12:44 AM REFINERY PROCESS ENGINEER COMPREHENSIVE METABOLIC PANEL Routine 10/08/2024 12:44 AM REFINERY PROCESS ENGINEER TYPE AND SCREEN Timed 10/08/2024 12:44 AM REFINERY PROCESS ENGINEER PHOSPHORUS Routine 10/08/2024 12:44 AM REFINERY PROCESS ENGINEER MAGNESIUM Routine 10/08/2024 12:44 AM REFINERY PROCESS ENGINEER BMT CBC Routine 10/08/2024 12:44 AM REFINERY PROCESS ENGINEER TRANSFUSE PLATELETS Timed 10/07/2024 4:40 AM REFINERY PROCESS ENGINEER Other pancytopenia (HCC) PREPARE PLATELETS Timed 10/07/2024 3:52 AM REFINERY PROCESS ENGINEER Other pancytopenia (HCC) IMMATURE PLATELET FRACTION Routine 10/07/2024 1:20 AM REFINERY PROCESS ENGINEER EGFR Routine 10/07/2024 1:20 AM REFINERY PROCESS ENGINEER MANUAL DIFFERENTIAL Routine 10/07/2024 1:20 AM REFINERY PROCESS ENGINEER CBC WITHOUT DIFFERENTIAL Routine 10/07/2024 1:20 AM REFINERY PROCESS ENGINEER BASIC METABOLIC PANEL Routine 10/07/2024 1:20 AM REFINERY PROCESS ENGINEER PHOSPHORUS Routine 10/07/2024 1:20 AM REFINERY PROCESS ENGINEER MAGNESIUM Routine 10/07/2024 1:20 AM REFINERY PROCESS ENGINEER BMT CBC Routine 10/07/2024 1:20 AM REFINERY PROCESS ENGINEER XR ABDOMEN AP 1 VIEW ED Urgent/IP Urgent 025 3:44 PM REFINERY PROCESS ENGINEER TRANSFUSE PLATELETS Timed 10/06/2024 3:40 PM REFINERY PROCESS ENGINEER Other pancytopenia (HCC) NOROVIRUS PCR Routine 10/06/2024 3:22 PM REFINERY PROCESS ENGINEER C. DIFFICILE TESTING Routine 10/06/2024 3:22 PM REFINERY PROCESS ENGINEER INFECTION PREVENTION VRE CULTURE Routine 10/06/2024 3:21 PM REFINERY PROCESS ENGINEER TRANSFUSE RED BLOOD CELLS Timed 10/06/2024 5:39 AM REFINERY PROCESS ENGINEER Other pancytopenia (HCC) PREPARE PLATELETS Timed 10/06/2024 4:35 AM REFINERY PROCESS ENGINEER Other pancytopenia (HCC) PREPARE RBC Timed 10/06/2024 4:35 AM REFINERY PROCESS ENGINEER Other pancytopenia (HCC) IMMATURE PLATELET FRACTION Routine 10/06/2024 1:56 AM REFINERY PROCESS ENGINEER EGFR Routine 10/06/2024 1:56 AM REFINERY PROCESS ENGINEER MANUAL DIFFERENTIAL Routine 10/06/2024 1:56 AM REFINERY PROCESS ENGINEER CBC WITHOUT DIFFERENTIAL Routine 10/06/2024 1:56 AM REFINERY PROCESS ENGINEER BASIC METABOLIC PANEL Routine 10/06/2024 1:56 AM REFINERY PROCESS ENGINEER PHOSPHORUS Routine 10/06/2024 1:56 AM REFINERY PROCESS ENGINEER MAGNESIUM Routine 10/06/2024 1:56 AM REFINERY PROCESS ENGINEER BMT CBC Routine 10/06/2024 1:56 AM REFINERY PROCESS ENGINEER EGFR Timed 10/05/2024 11:03 AM REFINERY PROCESS ENGINEER BASIC METABOLIC PANEL Timed 10/05/2024 11:03 AM REFINERY PROCESS ENGINEER PHOSPHORUS Timed 10/05/2024 11:03 AM REFINERY PROCESS ENGINEER URIC ACID Timed 10/05/2024 11:03 AM REFINERY PROCESS ENGINEER LACTATE DEHYDROGENASE Timed 10/05/2024 11:03 AM REFINERY PROCESS ENGINEER TRANSFUSE PLATELETS Timed 10/05/2024 11:00 AM REFINERY PROCESS ENGINEER Other pancytopenia (HCC) TRANSFUSE RED BLOOD CELLS Timed 10/05/2024 6:01 AM REFINERY PROCESS ENGINEER Other pancytopenia (HCC) PREPARE PLATELETS Timed 10/05/2024 5:30 AM REFINERY PROCESS ENGINEER Other pancytopenia (HCC) PREPARE RBC Timed 10/05/2024 5:30 AM REFINERY PROCESS ENGINEER Other pancytopenia (HCC) IMMATURE PLATELET FRACTION Routine 10/05/2024 3:42 AM REFINERY PROCESS ENGINEER EGFR Routine 10/05/2024 3:42 AM REFINERY PROCESS ENGINEER MANUAL DIFFERENTIAL Routine 10/05/2024 3:42 AM REFINERY PROCESS ENGINEER CBC WITHOUT DIFFERENTIAL Routine 10/05/2024 3:42 AM REFINERY PROCESS ENGINEER PROTIME-INR Routine 10/05/2024 3:42 AM REFINERY PROCESS ENGINEER APTT Routine 10/05/2024 3:42 AM REFINERY PROCESS ENGINEER LACTATE DEHYDROGENASE Routine 10/05/2024 3:42 AM REFINERY PROCESS ENGINEER URIC ACID Routine 10/05/2024 3:42 AM REFINERY PROCESS ENGINEER COMPREHENSIVE METABOLIC PANEL Routine 10/05/2024 3:42 AM REFINERY PROCESS ENGINEER TYPE AND SCREEN Timed 10/05/2024 3:42 AM REFINERY PROCESS ENGINEER PHOSPHORUS Routine 10/05/2024 3:42 AM REFINERY PROCESS ENGINEER MAGNESIUM Routine 10/05/2024 3:42 AM REFINERY PROCESS ENGINEER BMT CBC Routine 10/05/2024 3:42 AM REFINERY PROCESS ENGINEER PHOSPHORUS Timed 10/05/2024 3:42 AM REFINERY PROCESS ENGINEER URIC ACID Timed 10/05/2024 3:42 AM REFINERY PROCESS ENGINEER LACTATE DEHYDROGENASE Timed 10/05/2024 3:42 AM REFINERY PROCESS ENGINEER HEPATITIS PANEL, ACUTE Routine 09/29/2024 2:05 PM REFINERY PROCESS ENGINEER SCREENING MAMMOGRAM BILATERAL W ELICEO Schedule Routine, Read Routine (OP Routine) 05/12/2024 11:54 AM CDT History of left breast cancer from Last 3 Months or Most Recently Relevant to Health Maintenance Results * eGFR (01/01/2025 9:52 AM CDT) eGFR 78 >=60 mL/min/1. 73 m2 Comment: Interpretive Data Reference Interval Normal >/= 90 mL/min/1.73m2 Mildly decreased* 60 - 89 mL/min/1.73m2 Mildly to moderately decreased 45 - 59 mL/min/1.73m2 Moderately to severely decreased 30 - 44 mL/min/1.73m2 Severely decreased 15 - 29 mL/min/1.73m2 Kidney Failure < 15 mL/min/1.73m2 *Relative to young adult level Estimated glomerular filtration rate is determined by the 2020 CKD-EPI equation recommended by the National Kidney Foundation (A Unifying Approach to GFR Estimation: Recommendations of the NKF-ASK Task Force on Reassessing the Inclusion of Race in Diagnosing Kidney Disease, JASN 2020). The CKD-EPI equation should not be used for patients with unstable renal function and has not been validated in children and those over 70. Current interpretive data was last reviewed 2021. Blood 01/01/2025 9:52 AM CDT 01/01/2025 10:07 AM CDT Vicente Mandujano MD LAB BLOOD OR DERABLES Final Result [facility] Department [place] [address] * (ABNORMAL) Differential, auto (01/01/2025 9:52 AM CDT) Neutrophil abs 1.86 1.50 - 6.50 K/cumm Comment:Testing performed by : [facility], [address] [place], [place] [phone] Lymphocyte abs 0.69(L) 0.80 - 3.30 K/cumm [facility] Comment:Testing performed by : [facility], [address] [place] [address] Monocyte abs 0.40 0.20 - 0.80 K/cumm [facility] Comment:Testing performed by : [facility], [address] [place] [address] Eosinophil abs 0.21 0.00 - 0.50 K/cumm [facility] Comment:Testing performed by : [facility], [address] [place] [phone] Basophil abs 0.05 0.00 - 0.10 K/cumm [facility] Comment:Testing performed by : [facility], [address] [place] [phone] Neutrophil pct 57.9 % [facility] Comment: Interpretive Data Percent cell count reference ranges are not reported, since discordance with absolute values may lead to misinterpretation of CBC data. Current Interpretive Data was last revised on 2017. Testing performed by: [facility], [address] [place] [phone] Lymphocyte pct 21.5 % [facility] Comment: Interpretive Data Percent cell count reference ranges are not reported, since discordance with absolute values may lead to misinterpretation of CBC data. Current Interpretive Data was last revised on 2017. Testing performed by: [facility], [address] [place] [phone] Monocyte pct 12.6 % [facility] Comment: Interpretive Data Percent cell count reference ranges are not reported, since discordance with absolute values may lead to misinterpretation of CBC data. Current Interpretive Data was last revised on 2017. Testing performed by: [facility], [address] [place], [place] [id number] Eosinophil pct 6.4 % [facility] Comment: Interpretive Data Percent cell count reference ranges are not reported, since discordance with absolute values may lead to misinterpretation of CBC data. Current Interpretive Data was last revised on 2017. Testing performed by: [facility], [address] [place] [phone] Basophil pct 1.6 % [facility] Comment: Interpretive Data Percent cell count reference ranges are not reported, since discordance with absolute values may lead to misinterpretation of CBC data. Current Interpretive Data was last revised on 2017. Testing performed by: [facility], [address] [place] [phone] Blood 01/01/2025 9:52 AM CDT 01/01/2025 10:03 AM CDT Vicente Mandujano MD LAB BLOOD OR DERABLES Final Result [facility] Department [place] [address] * (ABNORMAL) CBC with auto differential (01/01/2025 9:52 AM CDT) WBC 3.21(L) 3.80 - 9.90 K/cumm Comment:Testing performed by : [facility], [address] [place] [address] Hgb 10.4(L) 11.9 - 15.5 g/dL DAVID G[facility] Comment:Testing performed by : [facility], [address] [place] [address] Hct 30.4(L) 35.6 - 45.5 % DAVID GARCÍA Comment:Testing performed by : [facility], [address] [place] [address] Plt 166 150 - 400 K/cumm CERFOSTER GARCÍA Comment:Testing performed by : [facility], [address] [place] [address] MPV 7.1 6.8 - 10.4 fL [facility] Comment:Testing performed by : [facility], [address] [place] [address] RBC 3.26(L) 3.90 - 5.20 M/cumm [facility] Comment:Testing performed by : [facility], [address] [place] [address] MCV 93.3 81.3 - 96.4 fL [facility] Comment:Testing performed by : [facility], [address] [place] [address] MCH 31.9 27.1 - 33.3 pg [facility] Comment:Testing performed by : [facility], [address] [place] [address] MCHC 34.2 32.3 - 35.7 g/dL [facility] Comment:Testing performed by : [facility], [address] [place] [phone] RDW CV 22.9(H) 11.1 - 14.9 % [facility] Comment:Testing performed by : [facility], [address] [place] [phone] NRBC abs 0.00 0.00 - 0.01 K/cumm [facility] Comment:Testing performed by : [facility], [address] [place] [phone] Blood 01/01/2025 9:52 AM CDT 01/01/2025 10:03 AM CDT Vicente Mandujano MD LAB BLOOD OR DERABLES Final Result Performing Organization Address [facility] Co de Phone Number [facility] [place] [address] * aPTT (01/01/2025 9:52 AM CDT) aPTT 32 28 - 38 sec Comment: Interpretive Data Heparin therapeutic range: 66.0 - 100.0 seconds. Range based on correlation with therapeutic heparin activity range of 0.3 - 0.7 Units/mL. Current interpretive data was last revised on 2023. Blood 01/01/2025 9:52 AM CDT 01/01/2025 10:34 AM CDT Vicente Mandujano MD LAB BLOOD OR DERABLES Final Result Performing Organization Address [facility] Co de Phone Number [facility] [place] [address] * Protime-INR (01/01/2025 9:52 AM CDT) PT 12.6 9.7 - 13.0 sec INR 1.16 0.90 - 1.20 [facility] Comment: Interpretive data Oral anticoagulant therapeutic ranges: Venous thromboembolism prophylaxis or treatment: 2.0-3.0 CARDIOLOGY Standard range: 2.0-3.0 High-intensity range: 2.5-3.5 Refer to indication-specific guidelines for appropriate target ranges for prosthetic heart valve replacement. Current interpretive data was last revised on 2019. Blood 01/01/2025 9:52 AM CDT 01/01/2025 10:34 AM CDT Vicente Mandujano MD LAB BLOOD OR DERABLES Final Result Performing Organization Address City/[facility] Co de Phone Number [facility] [place] [address] * Fibrinogen (01/01/2025 9:52 AM CDT) Fibrinogen 347 170 - 400 mg/dL Blood 01/01/2025 9:52 AM CDT 01/01/2025 10:34 AM CDT Vicente Mandujano MD LAB BLOOD OR DERABLES Final Result Performing Organization Address [facility] de Phone Number [facility] [place] [address] * Type and screen (01/01/2025 9:52 AM CDT) Bing, indirect Negative ABO Rh A Positive [facility] Blood 01/01/2025 9:52 AM CDT 01/01/2025 10:13 AM CDT Narrative [facility] - 01/01/2025 11:03 AM CDT Has the patient had Daratumumab or Isatuximab in the past 6 months?->No Vicente Mandujano MD LAB BLOOD BA NK TEST ORDERABLES Final Result Performing Organization Address [facility] Co de Phone Number [facility] [address] * Uric acid (01/01/2025 9:52 AM CDT) [facility] Uric acid 3.1 2.5 - 7.0 mg/dL Blood 01/01/2025 9:52 AM CDT 01/01/2025 10:07 AM CDT Vicente Mandujano MD LAB BLOOD OR DERABLES Final Result Performing Organization Address City/State/[facility] [place] [address] * Phosphorus (01/01/2025 9:52 AM CDT) [facility] Phosphorus, pl 3.9 2.3 - 4.5 mg/dL Blood 01/01/2025 9:52 AM CDT 01/01/2025 10:07 AM CDT Vicente Mandujano MD LAB BLOOD OR DERABLES Final Result Performing Organization Address City/[facility] Co de Phone Number [facility] [place] [address] * Magnesium (01/01/2025 9:52 AM CDT) [facility] Magnesium 2.0 1.4 - 2.5 mg/dL Blood 01/01/2025 9:52 AM CDT 01/01/2025 10:07 AM CDT Vicente Mandujano MD LAB BLOOD OR DERABLES Final Result Performing Organization Address City/[facility] Co de Phone Number [facility] [place] [address] * (ABNORMAL) Lactate dehydrogenase (LD) (01/01/2025 9:52 AM CDT) Lactate dehydrogenase (LDH) 296(H) 100 - 250 Units/L Blood 01/01/2025 9:52 AM CDT 01/01/2025 10:07 AM CDT Vicente Mandujano MD LAB BLOOD OR DERABLES Final Result [facility] Department [place] [address] * Comprehensive metabolic panel (01/01/2025 9:52 AM CDT) Pathologist [facility] Sodium 140 135 - 145 mmol/L Potassium, pl 4.2 3.3 - 4.9 mmol/L [facility] Chloride 106 97 - 110 mmol/L [facility] CO2 25 22 - 32 mmol/L [facility] Anion gap 9 2 - 15 mmol/L [facility] BUN 14 6 - 25 mg/dL [facility] Creatinine 0.85 0.60 - 1.10 mg/dL [facility] Glucose 94 70 - 199 mg/dL [facility] Comment: Interpretive Data Fasting glucose >/= 126 mg/dl is diagnostic for diabetes. Fasting is defined as no caloric intake for at least 8 hours. Fasting glucose between 100 mg/dl to 125 mg/dl is diagnostic of prediabetes. In a patient with classic symptoms of hyperglycemia or hyperglycemic crisis, a random glucose >/= 200 mg/dl is diagnostic for diabetes. In the absence of unequivocal hyperglycemia, results should be confirmed by repeat testing. The classification and Diagnosis of Diabetes Diabetes Care 202; 46: S19-S40. Current interpretive data was last revised 2022. Calcium 8.7 8.5 - 10.3 mg/dL [facility] Bilirubin, total 0.2 0.1 - 1.2 mg/dL [facility] Protein, pl 6.6 6.5 - 8.5 g/dL [facility] Albumin 3.8 3.5 - 5.0 g/dL [facility] Alk phos 120 40 - 130 Units/L [facility] ALT 19 7 - 45 Units/L [facility] AST 31 10 - 45 Units/L [facility] Blood 01/01/2025 9:52 AM CDT 01/01/2025 10:07 AM CDT us Vicente Mandujano MD LAB BLOOD OR DERABLES Final Result Performing Organization Address [facility] Co de Phone Number [facility] [place] [address] * eGFR (12/25/2024 3:48 PM CDT) eGFR 69 >=60 mL/min/1. 73 m2 Comment: Interpretive Data Reference Interval Normal >/= 90 mL/min/1.73m2 Mildly decreased* 60 - 89 mL/min/1.73m2 Mildly to moderately decreased 45 - 59 mL/min/1.73m2 Moderately to severely decreased 30 - 44 mL/min/1.73m2 Severely decreased 15 - 29 mL/min/1.73m2 Kidney Failure < 15 mL/min/1.73m2 *Relative to young adult level Estimated glomerular filtration rate is determined by the 2020 CKD-EPI equation recommended by the National Kidney Foundation (A Unifying Approach to GFR Estimation: Recommendations of the NKF-ASK Task Force on Reassessing the Inclusion of Race in Diagnosing Kidney Disease, JASN 2020). The CKD-EPI equation should not be used for patients with unstable renal function and has not been validated in children and those over 70. Current interpretive data was last reviewed 2021. Blood 12/25/2024 3:48 PM CDT 12/25/2024 4:26 PM CDT us Marta Cassidy NP LAB BLOOD ORDERABLES Final Resu lt Performing Organization Address [facility]/ZIP Co de Phone Number [facility] Department [place] [address] * Differential, auto (12/25/2024 3:48 PM CDT) Neutrophil abs 1.57 1.50 - 6.50 K/cumm Comment:Testing performed by : [facility], [address] [place], [place] [phone] Lymphocyte abs 0.86 0.80 - 3.30 K/cumm [facility] Comment:Testing performed by : [facility], [address] [place], [place] [phone] Monocyte abs 0.66 0.20 - 0.80 K/cumm [facility] Comment:Testing performed by : [facility], [address] [place], [place] [id number] Eosinophil abs 0.11 0.00 - 0.50 K/cumm [facility] Comment:Testing performed by : [facility], [address] [place], [place] [id number] Basophil abs 0.03 0.00 - 0.10 K/cumm [facility] Comment:Testing performed by : [facility], [address] [place], [place] [id number] Neutrophil pct 48.7 % [facility] Comment: Interpretive Data Percent cell count reference ranges are not reported, since discordance with absolute values may lead to misinterpretation of CBC data. Current Interpretive Data was last revised on 2017. Testing performed by: [facility], [address] [place] [phone] Lymphocyte pct 26.8 % [facility] Comment: Interpretive Data Percent cell count reference ranges are not reported, since discordance with absolute values may lead to misinterpretation of CBC data. Current Interpretive Data was last revised on 2017. Testing performed by: [facility], [address] [place] [phone] Monocyte pct 20.3 % [facility] Comment: Interpretive Data Percent cell count reference ranges are not reported, since discordance with absolute values may lead to misinterpretation of CBC data. Current Interpretive Data was last revised on 2017. Testing performed by: [facility], [address] [place] [phone] Eosinophil pct 3.3 % [facility] Comment: Interpretive Data Percent cell count reference ranges are not reported, since discordance with absolute values may lead to misinterpretation of CBC data. Current Interpretive Data was last revised on 2017. Testing performed by: [facility], [address] [place] [address] Basophil pct 0.9 % [facility] Comment: Interpretive Data Percent cell count reference ranges are not reported, since discordance with absolute values may lead to misinterpretation of CBC data. Current Interpretive Data was last revised on 2017. Testing performed by: [facility], [address] [place] [address] Blood 12/25/2024 3:48 PM CDT 12/25/2024 3:48 PM CDT us Marta Cassidy FOOD WRITER LAB BLOOD ORDERABLES Final Resu lt [facility] Department [place] [address] * (ABNORMAL) CBC with auto differential (12/25/2024 3:48 PM CDT) WBC 3.23(L) 3.80 - 9.90 K/cumm Comment:Testing performed by : [facility], [address] [place] [address] Hgb 10.4(L) 11.9 - 15.5 g/dL [facility] Comment:Testing performed by : [facility], [address] [place] [address] Hct 30.3(L) 35.6 - 45.5 % [facility] Comment:Testing performed by : [facility], [address] [place] [address] Plt 185 150 - 400 K/cumm [facility] Comment:Testing performed by : [facility], [address] [place] [address] MPV 7.3 6.8 - 10.4 fL [facility] Comment:Testing performed by : [facility], [address] [place] [address] RBC 3.33(L) 3.90 - 5.20 M/cumm [facility] Comment:Testing performed by : [facility], [address] [place] [address] MCV 90.7 81.3 - 96.4 fL [facility] Comment:Testing performed by : [facility], [address] [place] [address] MCH 31.1 27.1 - 33.3 pg [facility] Comment:Testing performed by : [facility], [address] [place] [address] MCHC 34.3 32.3 - 35.7 g/dL DAVID GARCÍA Comment:Testing performed by : [facility], [address] [place] [address] RDW CV 18.8(H) 11.1 - 14.9 % [facility] Comment:Testing performed by : [facility], [address] [place] [address] NRBC abs 0.00 0.00 - 0.01 K/cumm [facility] Comment:Testing performed by : [facility], [address] [place] [address] Blood 12/25/2024 3:48 PM CDT 12/25/2024 3:48 PM CDT us Marta Cassidy NP LAB BLOOD ORDERABLES Final Resu lt [facility] One [facility] Department [place] [address] * Comprehensive metabolic panel (12/25/2024 3:48 PM CDT) Sodium 141 135 - 145 mmol/L Potassium, pl 4.0 3.3 - 4.9 mmol/L [facility] Chloride 105 97 - 110 mmol/L [facility] CO2 26 22 - 32 mmol/L [facility] Anion gap 10 2 - 15 mmol/L [facility] BUN 8 6 - 25 mg/dL [facility] Creatinine 0.95 0.60 - 1.10 mg/dL [facility] Glucose 96 70 - 199 mg/dL [facility] Comment: Interpretive Data Fasting glucose >/= 126 mg/dl is diagnostic for diabetes. Fasting is defined as no caloric intake for at least 8 hours. Fasting glucose between 100 mg/dl to 125 mg/dl is diagnostic of prediabetes. In a patient with classic symptoms of hyperglycemia or hyperglycemic crisis, a random glucose >/= 200 mg/dl is diagnostic for diabetes. In the absence of unequivocal hyperglycemia, results should be confirmed by repeat testing. The classification and Diagnosis of Diabetes Diabetes Care 202; 46: S19-S40. Current interpretive data was last revised 2022. Calcium 8.6 8.5 - 10.3 mg/dL [facility] Bilirubin, total 0.2 0.1 - 1.2 mg/dL [facility] Protein, pl 6.9 6.5 - 8.5 g/dL [facility] Albumin 4.2 3.5 - 5.0 g/dL [facility] Comment:Reviewed Alk phos 130 40 - 130 Units/L [facility] ALT 19 7 - 45 Units/L [facility] AST 35 10 - 45 Units/L [facility] Blood 12/25/2024 3:48 PM CDT 12/25/2024 4:26 PM CDT us Marta Cassidy NP LAB BLOOD ORDERABLES Final Resu lt [facility] One [facility] Department [place] [address] * HLA Hematopoietic Stem Cell Typing Report (12/16/2024 2:56 PM CDT) us Vicente Mandujano MD LAB BLOOD OR DERABLES Final Result * Measurable Residual Disease (MRD) MyeloSeq Heme NGS Panel with Interpretation (12/08/2024 2:26 PM CDT) Bone Marrow Biopsy 12/08/2024 2:26 PM CDT 12/09/2024 8:37 AM CDT Narrative 12/20/2024 12:37 PM CDT [facility] [address] [place] [address] Final Report Patient Name: RENU DURON Address: [address] [place] [address] Gender: F : 1965 (Age: 59) Accessioned: 12/09/2024 Taken: 12/08/2024 Received: 12/09/2024 Physician(s): Vicente Mandujano MD Service: [facility] Location: [facility] #: [id number] Patient Type: [facility] MyeloSeq-MRD Molecular DiagnosticsReported:12/20/2024 Varients Detected: GENE EXON VARIANT PROTEIN CHANGE VAF CLINICAL SIGNIFICANCE* PREVIOUSLY DETECTED DNMT3A 23 MISSENSE R882C 3% PATHOGENIC YES TET2 3 STOP GAINED C237* 0.07% PATHOGENIC YES*Please see below for variant classification category details The following prior mutations were not detected: NPM1:I543Epi*12, KRAS:G12D, FLT3:[id number] No mutations were detected in the following sequenced genes and hotspots: ASXL1, BCOR, BCORL1, BRAF, CALR, CBL, CEBPA, CHEK2, CSF3R, CUX1, DDX41, ETNK1, ETV6, EZH2, FLT3, GATA1, GATA2, GNB1, IDH1, IDH2, JAK2, KIT, KMT2A, KRAS, MPL, MYC, NF1, NOTCH1, NPM1, NRAS, PHF6, PIGA, PPM1D, PRPF8, PTPN11, RAD21, RUNX1, SETBP1, SF3B1, SMC1A, SMC3, SRSF2, STAG2, STAT3, STAT5B, SUZ12, TP53, U2AF1, UBA1, UBTF, WT1, ZRSR2 Variant Interpretation: Previously identified variants in FLT3, KRAS, and NPM1, are not seen, consistent with mutation clearance and measurable residual disease (MRD) negative status at a sensitivity of at least 0.1% VAF. In addition, previously identified variants in DNMT3A and TET2 are again seen, consistent with persistent clonal hematopoiesis. We note that the persistence of isolated variants in DNMT3A and TET2 after treatment is not associated with an increased risk of relapse in patients with acute myeloid leukemia (PMID: [id number]). 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 Corresponding bone marrow biopsy ([id number]) shows markedly hypocellular marrow with left-shifted myeloid maturation and erythroid predominance without increased blasts. Corresponding cytogenetic studies () show no evidence of clonal aberrations. Specimen site: Bone marrow Variant Detail: Gene Location (GRCh38) Reference allele Variant allele Transcript:Coding change Population Frequency* DNMT3A chr2:[id number] G A [id number]:c.2644C>T 0.047% TET2 chr4:[id number] T A [id number]:c.711T>A none*The population allele frequency represents the maximum observed allele frequency in a diverse set of worldwide populations. QC Data: The following hotspots passed sequencing QC metrics: BRAF (codon 600), CALR (codon 9), CEBPA (codon domain), DNMT3A (codon 882), FLT3 (codons 835,569-613), IDH1 (codon 132), IDH2 (codons 140,172), JAK2 (codon 617), KIT (codon 816), KRAS (codons 61,12-13), MPL (codon 515), NPM1 (codons 287-288), NRAS (codons 61,12-13), SF3B1 (codons [phone]), SRSF2 (codons 95,103), TP53 (codons 238,248,273,275), U2AF1 (codons 34,157), UBA1 (codon 41) The following target genes failed minimum sequencing QC metrics (>=95% of positions >=250x): no genes failed QC Myeloseq Assay Version 3.0 This laboratory developed test (LDT) was developed and its performance characteristics determined by the CLIA Licensed Environment laboratory at the [facility] at [facility] ([facility], CLIA #[id number], CAP #[id number]), Dr. Walt Calle MD, PhD, [facility], [employer]. [address] [facility], [address] [place], [place] [address] . The [facility] laboratory is regulated under CLIA as certified to perform high-complexity testing. Interpretation of sequencing results and case sign out is performed by Pathology and Immunology faculty in the Division of Genomic and Molecular Pathology (-[facility], CLIA #[id number], CAP #[id number]) Dr. Josselyn Thomas Ph.D., [employer]. [facility], [facility], [facility] [address], [place] [address] [phone] . The [facility] is regulated under CLIA as certified to perform high-complexity testing. This test has not been cleared or approved by the FDA. This test uses hybridization capture-based enrichment that incorporates unique molecular identifiers (DEBI) coupled with Illumina-based next generation sequencing. A total of 54 genes and hotspots (partial genes) are targeted by the assay using approximately 30GBases of sequencing data generated on an Zyngenia X Plus. This test has been validated according to CAP guidelines for the detection of single nucleotide variants (SNVs) and indels (max validated size 117bp). This assay has two limits of detection: for new variants (not previously reported by NopsecoSeq) sensitivity is limited to 2% VAF; for previously reported variants the sensitivity is >95% for variants with VAFs >0.1%. The actual limit of detection (LOD) for known variants is limited by coverage at the sequenced position. This test does not use paired normal (germline) DNA to determine the somatic status of detected variants; somatic status for detected variants is inferred if the maximum observed allele frequency in a diverse set of worldwide populations is <0.1%. Common population polymorphisms (SNPs) are not reported by this assay and this assay does not distinguish rare inherited (constitutional variants) from somatic variants; should there be sufficient clinical concern for a constitutional cancer-associated mutation, please contact the laboratory for additional testing information. All variants are reported using HGVS nomenclature based on GRCh38 genomic coordinates. Transcripts are reported using the most canonical reference. Variants detected by this assay are classified into one of the following five categories: 1. Potentially therapeutic: target or biomarker for FDA-approved therapies. 2. Pathogenic: recurrent finding in high-quality peer-reviewed studies or meets the criteria for disease-related somatic mutation by NCCN guidelines. 3. Possibly germline: possibly germline variant based on VAF and population frequency; this assay is not designed to detect germline variants; confirmatory germline testing is required to determine the origin of any reported variant. Note: in the post-transplant setting, possibly germline variants are subclassified as possibly germline, recipient-derived or possibly germline, donor-derived based on comparison to historical results, if available. 4. Possibly donor-derived: detected after stem cell transplant in an engrafted patient but not present in pre-transplant studies, most consistent with donor- derived clonal hematopoiesis. 5. Uncertain significance: does not meet any of the above criteria and is therefore of uncertain clinical significance. Molecular testing using these methods is expected to be accurate. However, the chance of a false positive or false negative result due to laboratory errors incurred during any phase of testing cannot be completely excluded. [facility] does not have control over the quantity, quality or provenance of specimens originating from outside institutions. Accordingly, [facility] disclaims any and all responsibility and liability arising from a false positive or false negative result that may arise from an insufficient quantity of specimen, poor specimen quality, or contamination of specimen. This Report was generated using the materials and methods described above, which required the use of various reagents, protocols, instruments, software, databases, and other items, some of which were provided or made accessible by third parties. A defect or malfunction in any such reagents, protocols, instruments, software, databases, and/or other items may compromise the quality or accuracy of the Report. The Report has been created based on, or incorporates references to, various scientific manuscripts, references, and other sources of information, including without limitation manuscripts, references, and other sources of information that were prepared by third parties that describe correlations between certain genetic mutations and particular diseases (and/or certain therapeutics that may be useful in ameliorating the effects of such diseases). Such information and correlations are subject to exchange operator time in response to future scientific and medical findings. makes no representation or warranty of any kind, expressed or implied, regarding the accuracy of the information provided by or contained in such manuscripts, references, and other sources of information. If any of the information provided by or contained in such manuscripts, references, and other sources is later determined to be inaccurate, the accuracy and quality of the Report may be adversely impacted. is not obligated to notify you of any impact that future scientific or medical research findings may have on the Report. The Report must always be interpreted and considered within the clinical context, and a physician should always consider the Report along with all other pertinent information and data that a physician would prudently consider prior to providing a diagnosis to a patient or developing and implementing a plan of care for a patient. The Report should never be considered or relied upon alone in making any diagnosis or prognosis. The manifestation of many diseases are caused by more than one gene variant, a single gene variant may be relevant to more than one disease, and certain relevant gene variants may not have been considered in the Report. In addition, many diseases are caused or influenced by modifier genes, epigenetic factors, environmental factors, and other variables that are not addressed by the Report (or that are otherwise unknown). As such, the relevance of the Report should be interpreted in the context of a patient's clinical manifestations. The Report provided by [facility] is provided on an IS basis. makes no representation or warranty of any kind, expressed or implied, regarding the Report. In no event shall be liable for any actual damages, indirect damages, and/or special or consequential damages arising out of or in any way connected with the Report, your use of the Report, your reliance on the Report, or any defect or inaccurate information included within the Report. Serge Perez MD, PhDReport Electronically Reviewed and Signed Out By Serge Perez MD, PhD 12/20/2024 12:34:55 Vicente Mandujano MD LAB PATHOLOG Y ORDERABLES Final Result * Cytogenetics (12/08/2024 2:26 PM CDT) Bone Marrow Biopsy 12/08/2024 2:26 PM CDT 12/08/2024 2:26 PM CDT Narrative 12/19/2024 10:22 AM CDT EPIC results best viewed via link to PDF [facility] Department of Pathol [address] [place] [id number] Patient Information Name: RENU DURON Gender: F : 1965 (Age: 59) Tissue: Bone Marrow w/ FISH Visit Information Hospital #: [id number] Facility: [facility] Service: WU Location: [facility] Specimen Information: Culture #: [id number] Date Collected: 12/08/2024 Date Accessioned: 12/09/2024 Date Ordered: 12/08/2024 Physician(s): Vicente Mandujano MD Processin hours unstimulated 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 Specimen Quality: Low cell count Adequate: FISH: AML panel Adequate: Chromosome analysis CLINICAL REPORT CHROMOSOME ANALYSIS Metaphases Counted: 20Banding Technique: GTWColonies Counted: Metaphases Analyzed: 20Additional Method: FISHNumber of Cultures: 1Metaphases Karyotyped: 3Banding Resolution: 400Subculture: Karyotype: 46,XX[20].nuc radhames (MECOM)x2[200],(EGR1)x2[200],(S3A866)x2[200],(D8Z2)x2[200],(TYPF1X3,RUNX1)x2[200 ], (ASS1,ABL1,BCR)x2[200],(KMT2A)x2[200],(PML,BJ)x2[200],(CBFB)x2[200] Diagnosis: CHROMOSOME ANALYSIS: NO EVIDENCE OF CLONAL ABERRATIONS FISH FINDINGS: NO EVIDENCE OF DELETION/MONOSOMY OF EGR1 (5q) OR P2B352 (7q); NO EVIDENCE OF MECOM, BCR::ABL1, PML::BJ, CBFB,KMT2A OR FXWO1T2::RUNX1 REARRANGEMENT; NO EVIDENCE OF TRISOMY 8 INTERPRETATION: No clonal cytogenetic aberrations were identified in metaphase cells analyzed from an unstimulated culture. This normal result does not exclude a neoplastic proliferation. Small chromosome anomalies may not be detectable using the standard methods employed. Chromosome analysis was performed at a level of 400 bands or greater. The chromosome findings must be interpreted within the context of the pathologic and clinical findings. Follow-up evaluation is recommended. Chromosome analysis and Fluorescence In Situ Hybridization (FISH) analysis are performed using the Leica Cytovision Imaging System. Report Electronically Reviewed and Signed Out By Dunia Pires Reported: 5Assistant Professor, Division of Genomic & Molecular Pathology FLUORESCENCE IN-SITU HYBRIDIZATION [FISH] Karyotype: nuc radhames (MECOM)x2[200],(EGR1)x2[200],(A7Z848)x2[200],(D8Z2)x2[200],(ATSG6K6,RUNX1)x2[200 ], (ASS1,ABL1,BCR)x2[200],(KMT2A)x2[200],(PML,BJ)x2[200],(CBFB)x2[200] Diagnosis: FISH FINDINGS: NO EVIDENCE OF DELETION/MONOSOMY OF EGR1 (5q) OR C5X124 (7q); NO EVIDENCE OF REARRANGEMENTS OF MECOM, BCR::ABL1, PML::BJ, CBFB, KMT2A OR AHPY5W0::RUNX1 NO EVIDENCE OF TRISOMY 8 INTERPRETATION: FISH analysis was performed with a panel of [employer] and [employer] probes for AML and is interpreted as NORMAL. 1) FISH evaluation for an MECOM (EVI1) rearrangement was performed on nuclei with the MECOM Dual Color, Break Apart Rearrangement Probe ([employer]) at 3q26 and is interpreted as NORMAL. No rearrangement was observed in 200/200 nuclei, which is within the normal range established for this probe in the [facility]omics Laboratory at [facility]. Up to 1% of cells in normal samples can show an apparent MECOM rearrangement using this probe. A normal MECOM FISH finding can result from the absence of a MECOM rearrangement, from a variant MECOM rearrangement or from an insufficient number of neoplastic cells in the specimen. 2) FISH evaluation for a 5q deletion was performed on nuclei with the EGR1,E1V801/X9P3147 Dual Color Probe ([employer] for EGR1 at 5q31.1 and the control B8U876/S8Z8286 at 5p15.31 and is interpreted as NORMAL. Two EGR1 hybridization signals and two V4P881/Y7R0368 control hybridization signals were observed in 199/200 nuclei, which is within the normal range established for this probe in the [facility]omics Laboratory at [facility]. Up to 3.1% of cells in normal samples can show an apparent 5q deletion using this probe. A normal EGR1 FISH finding can result from the absence of a 5q deletion, from a 5q deletion that does not involve the region to which this probe hybridizes or from an insufficient number of neoplastic cells in the specimen. 3) FISH evaluation for a 7q deletion was performed on nuclei with the LSI C1N504/D7Z1 Dual Color Probe ([employer] for M3L120 at 7q31 and the control D7Z1 at 7p11.1-q11.1 and is interpreted as NORMAL. Two W3F971 hybridization signals and two D7Z1 control hybridization signals were observed in 199/200 nuclei, which is within the normal range established for this probe set in the [facility]omics Laboratory at [facility]. Up to 1% of cells in normal samples can show an apparent 7q deletion using this probe. A normal R1G198 FISH finding can result from the absence of a 7q deletion, from a 7q deletion that does not involve the region to which this probe hybridizes or from an insufficient number of neoplastic cells in the specimen. 4) FISH evaluation for trisomy 8 was performed on nuclei with the D8Z2 [employer] DNA Probe at 8p11.1-q11.1 and is interpreted as NORMAL. Two D8Z2 hybridization signals were observed in 198/200 nuclei, which is within the normal range established for this probe in the [facility] Laboratory at [facility]. Up to 1.9% of cells in normal samples can show apparent trisomy 8 using this probe. A normal chromosome 8 FISH finding can result from the absence of trisomy 8 or from an insufficient number of neoplastic cells in the specimen. 5) FISH evaluation for a JCPL6P4::RUNX1 rearrangement was performed on nuclei with the LSI LGJZ6G5::RUNX1 Dual Color, Dual Fusion Translocation Probe ([employer] for CGJW1X5 (ETO) at 8q22 and RUNX1 (AML1) at 21q22 and is interpreted as NORMAL. No rearrangement was observed in 197/200 nuclei, which is within the normal range (up to 1%) established for this probe in the [facility]omics Laboratory at [facility]. Variant signal pattern was observed in 3/200 nuclei. Up to 5% of cells in normal samples can show random overlap of FVVJ2J7::RUNX1 probes and additional nuclei may show extra or missing signals. A normal BSIF9V6::RUNX1 FISH finding can result from the absence of an GFAN3P8::RUNX1 rearrangement, from a variant PXKR6X2::RUNX1 rearrangement or from an insufficient number of neoplastic cells in the specimen. 6) FISH evaluation for a BCR::ABL1 rearrangement was performed on nuclei with the LSI BCR::ABL1 Tricolor, Dual Fusion Translocation Probe ([employer] for ASS1/ABL1 at 9q34 and BCR at 22q11.2 and is interpreted as NORMAL. No rearrangement was observed in 194/200 nuclei, which is within the normal range (up to 1%) established for this probe in the Clinical [facility]omics Laboratory at [facility]. Variant signal pattern was observed in 6/200 nuclei. Up to 8.5% of cells in normal samples can show random overlap of BCR::ABL1 probes and additional nuclei may show extra or missing signals. A normal BCR::ABL1 FISH finding can result from the absence of a BCR::ABL1 rearrangement, from a variant BCR::ABL1 rearrangement or from an insufficient number of neoplastic cells in the specimen. 7) FISH evaluation for an KMT2A (MLL) rearrangement was performed on nuclei with the LSI KMT2A Dual Color, Break Apart Rearrangement Probe ([employer] at 11q23 and is interpreted as NORMAL. No rearrangement was observed in 198/200 nuclei, which is within the normal range established for this probe in the Clinical [facility]omics Laboratory at [facility]. Up to 1% of cells in normal samples can show an apparent KMT2A rearrangement using this probe. A normal KMT2A FISH finding can result from the absence of an KMT2A rearrangement, from a variant KMT2A rearrangement or from an insufficient number of neoplastic cells in the specimen. 8) FISH evaluation for a PML::BJ rearrangement was performed on nuclei with the LSI PML::BJ Dual Color, Dual Fusion Translocation Probe ([employer] for PML at 15q24 and BJ at 17q21 and is interpreted as NORMAL. No rearrangement was observed in 196/200 nuclei, which is within the normal range (up to 1%) established for this probe in the Clinical [facility]omics Laboratory at [facility]. Variant signal pattern was observed in 4/200 nuclei. Up to 13% of cells in normal samples can show random overlap of PML::BJ probes and additional nuclei may show extra or missing signals. A normal PML::BJ FISH finding can result from the absence of a PML::BJ rearrangement, from a variant PML::BJ rearrangement or from an insufficient number of neoplastic cells in the specimen. 9) FISH evaluation for a CBFB rearrangement was performed on nuclei with the LSI CBFB Dual Color, Break Apart Rearrangement Probe ([employer] at 16q22 and is interpreted as NORMAL. No rearrangement was observed in 200/200 nuclei, which is within the normal range established for this probe in the [facility] Laboratory at [facility]. Up to 2% of cells in normal samples can show an apparent CBFB rearrangement using this probe. A normal CBFB FISH finding can result from the absence of a CBFB rearrangement, from a variant CBFB rearrangement or from an insufficient number of neoplastic cells in the specimen. The FISH findings must be interpreted within the context of the pathologic and clinical findings. Follow-up evaluation is recommended. Complete chromosome analysis is pending and will be reported separately. This test was developed and its performance characteristics determined by [facility]. It has not been cleared or approved by the FDA. The laboratory is regulated under CLIA as qualified to perform high-complexity testing. This test is used for clinical purposes. It should not be regarded as investigational or for research. Professional component performed by Nani Howard, Ph.D., [facility], [facility] [place], [place] (CLIA #: [id number]). Chromosome analysis and Fluorescence In Situ Hybridization (FISH) analysis are performed using the Leica Cytovision Imaging System. Report Electronically Reviewed and Signed Out By Nani Howard, PhDDate Reported: 12/11/2024 Vicente Mandujano MD LAB GENETIC TESTING Final Result * ChromoSeq - Heme Genetic Profiling (WGS) with interpretation (12/08/2024 2:26 PM CDT) Bone Marrow Biopsy 12/08/2024 2:26 PM CDT 12/09/2024 8:37 AM CDT Narrative 12/15/2024 4:27 PM CDT [facility] [address] [place] [address] Final Report Patient Name: RENU DURON Address: [address] [place] [address] Gender: F : 1965 (Age: 59) Accessioned: 12/09/2024 Taken: 12/08/2024 Received: 12/09/2024 Physician(s): Vicente Mandujano MD Service: WU Location: [facility] #: [id number] Patient Type: [facility] ChromoSeq Molecular DiagnosticsReported:12/15/2024 Tissue type: Bone Marrow Stated Diagnosis: AML Diagnosis timepoint: Other Treatment timepoint: Other Transplant: None Prior history of MDS: No Prior history of cancer: Yes Blast Count: 1% WBC: 0.83 K/cumm Hgb: 10 g/dL Plt: 54 K/cumm Copy Number Alterations None detected Structural Variants None detected 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 Correlation with patient history and the corresponding bone marrow morphology, flow cytometry, and cytogenetic studies as well as associated molecular testing is recommended. Serge Perez MD, PhDReport Electronically Reviewed and Signed Out By Serge Perez MD, PhD 12/15/2024 16:26:48 Vicente Mandujano MD LAB PATHOLOG Y ORDERABLES Final Result * Flow Leukemia/Lymphoma Bone marrow (12/08/2024 2:26 PM CDT) Suárez Stain Test Completed Leukemia/Lymp emily Result See separate Surgical Pathology report. [facility] Bone marrow 12/08/2024 2:26 PM CDT 12/08/2024 4:33 PM CDT Narrative [facility] - 12/09/2024 11:01 AM CDT Tube information: Green top (Sodium Heparin) Vicente Mandujano MD LAB PATHOLOG Y ORDERABLES Final Result Performing Organization Address City/[facility]/ZIP Co de Phone Number [facility] Department [place] [address] * NPM1 Mutation Detection by RT-PCR ([employer]) -Miscellaneous Molecular Send- out Request (52:26 PM CDT) Result 1 Test Name: NPM1 by RT-PCR Specimen Type: BM Result: See attached scanned report for results. Test name NPM1 by RT-PCR [facility] Bone marrow 12/08/2024 2:26 PM CDT 12/09/2024 9:27 AM CDT Narrative [facility] - 12/15/2024 9:50 AM CDT Collect: Whole blood or bone marrow in lavender (EDTA). Specimen Preparation Whole Blood: Transport 5 mL whole blood. (Min: 3 mL) Bone Marrow: Transport 3 mL bone marrow. (Min: 1 mL) Refrigerate immediately. Specimens must be received within 48 hours of collection due to lability of RNA. Storage/Transport Temperature Whole Blood or Bone Marrow: CRITICAL REFRIGERATED. Separate specimens must be submitted when multiple tests are ordered. Collect Whole blood or bone marrow in lavender (EDTA). Specimen Preparation Whole Blood: Transport 5 mL whole blood. (Min: 3 mL) Bone Marrow: Transport 3 mL bone marrow. (Min: 1 mL) *Refrigerate immediately. Specimens must be received within 48 hours of collection due to lability of RNA.* Storage/Transport Temperature Whole Blood or Bone Marrow: CRITICAL REFRIGERATED. Separate specimens must be submitted when multiple tests are ordered. Test Requested:->NPM1 Mutation Detection by RT-PCR ([employer]) Vicente Mandujano MD LAB GENETIC TESTING Final Result [facility] [facility] Department [place] [address] * FLT3 ITD PCR (invivoscribe) -Miscellaneous Molecular Send-out Request (12/08/2024 2:26 PM CDT) Result 1 Test Name: _FLT3 ITD MRD by NGS (LabPMM) Specimen Type: _BM Result: See attached scanned report for results. Test name FLT3 ITD MRD by NGS (LabPMM) [facility] Bone marrow 12/08/2024 2:26 PM CDT 12/09/2024 9:27 AM CDT Narrative [facility] - 12/28/2024 10:46 AM CDT Test Requested:->FLT3 ITD PCR (invivoscribe) us Vicente Mandujano MD LAB GENETIC TESTING Final Result [facility] Department [place] [address] * Surgical pathology (12/08/2024 2:26 PM CDT) Bone marrow (Bone Marrow Biopsy) 12/08/2024 2:26 PM CDT 12/08/2024 4:12 PM CDT Narrative PATHOLOGY [facility] - 12/09/2024 4:29 PM CDT EPIC results best viewed via link to PDF [facility] Laboratory [place] [address] Note to Patients: This report may contain a detailed description of human tissue sent by a health care provider to the laboratory for pathologic evaluation. The content of this report is essential for diagnosis and may provide important critical findings. This information may be unfamiliar to patients to review without a medical professional present. It is advised that the patient review this report in the presence of a health care provider who can answer questions and explain the details. SURGICAL PATHOLOGY REPORT FINAL WITH ADDENDUM Patient Name: RENU DURON Gender: F : 1965 (Age: 59) Address: [address] [place] [id number] [facility] #: [id number] Taken:12/08/2024 Received:12/08/2024 Reported: 12/09/2024 Patient Type: [facility] MED ONC Service: Laboratory Location: Physician(s): Vicente Mandujano MD Diagnosis: Bone marrow, right posterior iliac crest, core biopsy, clot section and aspirate: - Markedly hypocellular bone marrow with left shifted myeloid maturation, and erythroid predominance - No increase in blasts - See comment and flow cytometry addendum mars/12/09/2024 15:28 By this signature, I attest that the above diagnosis is based upon my personal examination of the slides(and/or other material indicated in the diagnosis). Otilio Velásquez M.D. Report Electronically Reviewed and Signed Out By Otilio Velásquez M.D. 12/09/2024 16:29:32 Diagnosis Comment For details on the peripheral blood smear (if submitted), bone marrow aspirate, and core biopsy, please see the attached synoptic report. If applicable, correlation with concurrent flow cytometry (Addenda/Procedures below), cytogenetics/FISH, and molecular studies is suggested for full evaluation. Microscopic Description and Comment: Microscopic examination substantiates the above cited diagnosis. Elizabeth Hammond M.D. History: The patient is a 59-year-old woman presenting with a history of AML. Operative procedure: Bone marrow biopsy. Specimen(s) Received: A: Bone marrow biopsy, right posterior iliac crest B: Bone Marrow Clot - BJ C: Bone marrow, right aspirate for flow cytometry Gross Description: Received in two formalin jars labeled with the patient's identifiers. A. Received in formalin, labeled right core and consists of one red cores of bone with attached hemorrhagic material measuring 1.0 cm in length by 0.1 cm in diameter. Labeled A1. EDTA decalcification.. Jar 0. B. Received in formalin, labeled right clot and consists of a 2.5 x 2.2 by 1.2 cm fragment of hemorrhagic material. Labeled B1. Jar 1. [facility]/12/08/2024 16:52 PA(s): Nuzhat Ugalde CBC: Date: 12/08/24 WBCs: 0.83x10^3/mcl Hemoglobin: 10.0g/dl Hematocrit: 28.9% Platelets: 54x10^3/mcl Mean corpuscular volume (MCV): 85.1fl Red cell distribution width (RDW-CV): 14.6% Neutrophils, absolute: 0.70 K/cumm Lymphocytes, absolute: 0.07 K/cumm Monocytes, absolute: 0.05 K/cumm Eosinophils, absolute: 0.00 K/cumm Basophils, absolute: 0.01 K/cumm Neutrophils: 84.3% Lymphocytes: 7.9% Monocytes: 6.4% Eosinophils: 0.2% Basophils: 1.1% Peripheral blood smear (Suárez-Giemsa): The peripheral blood morphology reflects the CBC values. Bone marrow aspirate smear (Suárez-Giemsa stain): Quality: Adequate Spicules: Present Marrow cellularity: Within normal limits Myeloid maturation: Left-shifted Erythroid maturation: Abnormal nuclear contours Myeloid/Erythroid Ratio: Within normal limits Megakaryocyte number: Within normal limits Megakaryocytic maturation: Small Lymphocytes: Normal Plasma cells: Normal Iron: Gale Score 5-6 (Increased). Gale score is a grading method for interpretation of bone marrow iron stain and provides an assessment of total bone marrow iron stores. No ring sideroblasts present Differential count: Total # of Cells Counted:200 Blasts: 1 Promyelocytes: 6 Myelocytes+Metamyelocytes:22 Bands+Neutrophils:19 Plasma cells: 4 Lymphocytes: 2 Monocytes: 4 Erythroids: 42 Bone marrow core biopsy (decalcified, H&E and Leder stains): Right, iliac crest Quality: Hemorrhagic, Subcortical Cellularity: 10% Myeloid maturation: Present, Left-shifted Erythroid maturation: Normal The Leder stain shows that the Myeloid/Erythroid Ratio is: Decreased Megakaryocyte number: Within normal limits Megakaryocytic maturation: Normal The Leder stain is used to assess for lymphoid aggregates: None Plasma cells: Normal Reticulin and Trichrome stains show: No significant fibrosis (MF-0) CLOT SECTION: The bone marrow clot section including Leder and H&E stains are: Similiar in cellularity and composition to the bone marrow core By this signature, I attest that the above diagnosis is based upon my personal examination of the slides(and/or other material). Addenda/Procedures Flow Cytometry Ordered:12/08/2024Status:Signed OutFlow Cytometry Complete:12/09/2024y:Otilio Velásquez M.D.Flow Cytometry Signed Out: 12/09/2024 Diagnosis Bone marrow, right aspirate for flow cytometry: - No increase in blasts or aberrant T cell population detected Comment Specimen quality: Adequate Flow cytometry analysis shows the CD45 dim-gated events are 4% of overall cellularity of the specimen, with a subset positive for expression of CD34 and CD117. Monocyte-gated events account for 2% of overall cellularity and express CD13, CD33, CD64, and CD14. Lymphocyte-gated events account for 8% of the overall cellularity. CD3+ T-cells (comprising 84% of lymphocytes) show no significant loss of cheng T- cell antigens and have an inverted CD4 to CD8 ratio. There is a small population of CD56+ events (10% of lymphocytes) consistent with natural killer cells. There is no overt increase in CD38+ plasma cells. Correlation with morphology (if submitted), clinical and laboratory data is recommended. A malignant process cannot be excluded solely on the basis of this assay. A Suárez-Giemsa stained slide from the flow cytometry specimen was examined for internal quality process auditor purposes. Flow cytometry was performed using antibodies to the following cellular antigens: CD45, CD34, CD2, CD3, CD4, CD5, CD7, CD8, CD56, TCR-GD, CD16, CD10 , CD13, CD14, CD64, HLR-DR, CD11b, CD15, CD123, CD117, CD33, CD38, CD19. Total antigens analyzed: 23 By this signature, I attest that the above diagnosis is based upon my personal examination of the slides(and/or other material indicated in the diagnosis). Otilio Velásquez M.D.Report Electronically Reviewed and Signed Out By Otilio Velásquez M.D. 12/09/2024 16:12:28Elizabeth Hammond M.D. The performance characteristics of some immunohistochemical stains, fluorescence in-situ hybridization tests and immunophenotyping by flow cytometry cited in this report (if any) were determined by the Surgical Pathology and Flow Cytometry Departments at [facility] as part of an ongoing quality coordinator program and in compliance with federally mandated regulations drawn from the Clinical Laboratory Improvement Act of 1988 (CLIA '88). Some of these tests rely on the use of analyte specific reagents and are subject to specific labeling requirements by the US Food and Drug Administration. Such diagnostic tests may only be performed in a facility that is certified by the Department of Health and Human Services as a high complexity laboratory under CLIA '88. The FDA has determined that such clearance or approval is not necessary. This test is used for clinical purposes. It should not be regarded as investigational or for research. Nevertheless, federal rules concerning the medical use of analyte specific reagents require that the following disclaimer be attached to the report: This test was developed and its performance characteristics determined by the Surgical Pathology and Flow Cytometry Departments of [facility]. It has not been cleared or approved by the U. S. Food and Drug Administration. IMAGES AND SCANNED DOCUMENTS, IF INCLUDED, ONLY VIEWABLE IN PDF VERSION OF REPORT Vicente Mandujano MD LAB PATHOLOG Y ORDERABLES Final Result PATHOLOGY [facility] 3rd Floor [place], [place] [phone] * HR HLA Typing (Class I and Class II) (12/08/2024 1:44 PM CDT) NGS HISTOTRAC A First Allele A*24:02 HISTOTRAC A Second Allele A*32:01 HISTOTRAC A First Serological Equivalent A24 HISTOTRAC A Second Serological Equivalent A32 HISTOTRAC B First Allele B*14:02 HISTOTRAC B Second Allele B*40:02 HISTOTRAC B First Serological Equivalent B65 HISTOTRAC B Second Serological Equivalent B61 HISTOTRAC Bw First Serological Equivalent Bw6 HISTOTRAC Bw Second Serological Equivalent Bw6 HISTOTRAC C First Allele C*02:02 HISTOTRAC C Second Allele C*08:02 HISTOTRAC C First Serological Equivalent Cw2 HISTOTRAC C Second Serological Equivalent Cw8 HISTOTRAC DRB1 First Allele DRB1*01:02 HISTOTRAC DRB1 Second Allele DRB1*13:01 HISTOTRAC DRB1 First Serological Equivalent DR1 HISTOTRAC DRB1 Second Serological Equivalent DR13 HISTOTRAC DRB3 First Allele DRB3*02:EK MCR HISTOTRAC DRB3 First Serological Equivalent DR52 HISTOTRAC DQA1 First Allele DQA1*01:01 HISTOTRAC DQA1 Second Allele DQA1*01:03 HISTOTRAC DQB1 First Allele DQB1*05:EW CEW HISTOTRAC DQB1 Second Allele DQB1*06:03 HISTOTRAC DQB1 First Serological Equivalent DQ5 HISTOTRAC DQB1 Second Serological Equivalent DQ6 HISTOTRAC DPB1 First Allele DPB1*02:01 :02G HISTOTRAC DPB1 Second Allele DBP1*04:01 :01G HISTOTRAC Blood 12/08/2024 1:44 PM CDT 12/16/2024 2:55 PM CDT Narrative [facility] - 12/16/2024 2:55 PM CDT DNA was extracted from whole blood or buccal cell specimens, and relevant genomic regions were amplified by polymerase chain reaction (PCR). HLA typing was performed on PCR amplicons by next-generation sequencing (NGS) using the AllType NGS assay (Rx Systems PF) on the [employer] platform, which outperforms the Sonny Sequence-based typing (SBT) but is not FDA approved for HLA typing. The sequence-specific primers (SSP) method may be employed to resolve ambiguity using FDA approved IVD products ([place] SSP) as indicated. The performance of the above methods are validated by the [facility] HLA Laboratory. For typing results reported using NMDP codes, all unresolved alleles represented by the code are listed under the NMDP Code Translations section. DPB1 typing may be resulted using G group codes when applicable (e.g. DPB1*01:01:01G); all alleles within a G group share the same DNA sequence for the exon 2 of DPB1, and the list of unresolved alleles within a G group can be viewed at http://hla.alleles.org/alleles/g_groups.html. Testing performed at the [facility], [address] [place] [address], 5th floor, [place], [address]. [facility] # [id number]. Nicole Riley, Ph.D., Salvage Repairer, HLA Laboratory Franklin Hull M.D., Ph.D., Green Chain Puller, HLA Laboratory Gladis Zuluaga, Ph.D., CLIA Green Chain Puller, [facility] Clinical Laboratories Current methodology comment last revised on 05/31/2020. Vicente Mandujano MD LAB BLOOD OR DERABLES Final Result [facility] * eGFR (12/08/2024 1:36 PM CDT) eGFR >90 >=60 mL/min/1. 73 m2 Comment: Interpretive Data Reference Interval Normal >/= 90 mL/min/1.73m2 Mildly decreased* 60 - 89 mL/min/1.73m2 Mildly to moderately decreased 45 - 59 mL/min/1.73m2 Moderately to severely decreased 30 - 44 mL/min/1.73m2 Severely decreased 15 - 29 mL/min/1.73m2 Kidney Failure < 15 mL/min/1.73m2 *Relative to young adult level Estimated glomerular filtration rate is determined by the 2020 CKD-EPI equation recommended by the National Kidney Foundation (A Unifying Approach to GFR Estimation: Recommendations of the NKF-ASK Task Force on Reassessing the Inclusion of Race in Diagnosing Kidney Disease, JASN 2020). The CKD-EPI equation should not be used for patients with unstable renal function and has not been validated in children and those over 70. Current interpretive data was last reviewed 2021. Blood 12/08/2024 1:36 PM CDT 12/08/2024 2:28 PM CDT Vicente Mandujano MD LAB BLOOD OR DERABLES Final Result [facility] Department [place] [address] * (ABNORMAL) Differential, auto (12/08/2024 1:36 PM CDT) Pathologist [facility] Neutrophil abs 0.70(L) 1.50 - 6.50 K/cumm Comment:Testing performed by : [facility], [address] [place] [phone] Lymphocyte abs 0.07(L) 0.80 - 3.30 K/cumm [facility] Comment:Testing performed by : [facility], [address] [place] [phone] Monocyte abs 0.05(L) 0.20 - 0.80 K/cumm [facility] Comment:Testing performed by : [facility], [address] [place] [phone] Eosinophil abs 0.00 0.00 - 0.50 K/cumm [facility] Comment:Testing performed by : [facility], [address] [place] [phone] Basophil abs 0.01 0.00 - 0.10 K/cumm [facility] Comment:Testing performed by : [facility], [address] [place] [phone] Neutrophil pct 84.3 % [facility] Comment: Interpretive Data Percent cell count reference ranges are not reported, since discordance with absolute values may lead to misinterpretation of CBC data. Current Interpretive Data was last revised on 2017. Testing performed by: [facility], [address] [place] [phone] Lymphocyte pct 7.9 % [facility] Comment: Interpretive Data Percent cell count reference ranges are not reported, since discordance with absolute values may lead to misinterpretation of CBC data. Current Interpretive Data was last revised on 2017. Testing performed by: [facility], [address] [place] [phone] Monocyte pct 6.4 % [facility] Comment: Interpretive Data Percent cell count reference ranges are not reported, since discordance with absolute values may lead to misinterpretation of CBC data. Current Interpretive Data was last revised on 2017. Testing performed by: [facility], [address] [place] [phone] Eosinophil pct 0.2 % [facility] Comment: Interpretive Data Percent cell count reference ranges are not reported, since discordance with absolute values may lead to misinterpretation of CBC data. Current Interpretive Data was last revised on 2017. Testing performed by: [facility], [address] [place] [phone] Basophil pct 1.1 % [facility] Comment: Interpretive Data Percent cell count reference ranges are not reported, since discordance with absolute values may lead to misinterpretation of CBC data. Current Interpretive Data was last revised on 2017. Testing performed by: [facility], [address] [place] [phone] Blood 12/08/2024 1:3 6 PM CDT 12/08/2024 2:27 PM CDT Vicente Mandujano MD LAB BLOOD OR DERABLES Final Result [facility] Department [place] [address] * (ABNORMAL) CBC with auto differential (12/08/2024 1:36 PM CDT) WBC 0.83(L) 3.80 - 9.90 K/cumm Comment:Testing performed by : [facility], [address] [place] [address] Hgb 10.0(L) 11.9 - 15.5 g/dL [facility] Comment:Testing performed by : [facility], [address] [place] [address] Hct 28.9(L) 35.6 - 45.5 % [facility] Comment:Testing performed by : [facility], [address] [place] [address] Plt 54(L) 150 - 400 K/cumm [facility] Comment:Testing performed by : [facility], [address] [place] [address] MPV 8.3 6.8 - 10.4 fL [facility] Comment:Testing performed by : [facility], [address] [place] [address] RBC 3.40(L) 3.90 - 5.20 M/cumm [facility] Comment:Testing performed by : [facility], [address] [place] [address] MCV 85.1 81.3 - 96.4 fL [facility] Comment:Testing performed by : [facility], [address] [place], [place] [phone] MCH 29.5 27.1 - 33.3 pg [facility] Comment:Testing performed by : [facility], [address] [place], [place] [phone] MCHC 34.7 32.3 - 35.7 g/dL [facility] Comment:Testing performed by : [facility], [address] [place], [place] [phone] RDW CV 14.6 11.1 - 14.9 % [facility] Comment:Testing performed by : [facility], [address] [place], [place] [phone] NRBC abs 0.00 0.00 - 0.01 K/cumm [facility] Comment:Testing performed by : [facility], [address] [place], [place] [phone] Blood 12/08/2024 1:36 PM CDT 12/08/2024 2:27 PM CDT Vicente Mandujano MD LAB BLOOD OR DERABLES Final Result [facility] Department [place] [address] * (ABNORMAL) Uric acid (12/08/2024 1:36 PM CDT) Uric acid 2.0(L) 2.5 - 7.0 mg/dL Blood 12/08/2024 1:36 PM CDT 12/08/2024 2:28 PM CDT Vicente Mandujano MD LAB BLOOD OR DERABLES Final Result [facility] [place] [address] * Lactate dehydrogenase (LD) (12/08/2024 1:36 PM CDT) Lactate dehydrogenase (LDH) 205 100 - 250 Units/L Blood 12/08/2024 1:36 PM CDT 12/08/2024 2:28 PM CDT Vicente Mandujano MD LAB BLOOD OR DERABLES Final Result Performing Organization Address City/[facility]/ZIP Co de Phone Number [facility] Department [place] [address] * Bilirubin, direct (12/08/2024 1:36 PM CDT) [facility] Bilirubin, direct 0.3 0.1 - 0.3 mg/dL Blood 12/08/2024 1:36 PM CDT 12/08/2024 2:28 PM CDT Vicente Mandujano MD LAB BLOOD OR DERABLES Final Result Performing Organization Address [facility] Co de Phone Number [facility] [place] [address] * (ABNORMAL) Comprehensive metabolic panel (12/08/2024 1:36 PM CDT) [facility] Sodium 141 135 - 145 mmol/L Potassium, pl 3.4 3.3 - 4.9 mmol/L [facility] Chloride 102 97 - 110 mmol/L [facility] CO2 25 22 - 32 mmol/L [facility] Anion gap 14 2 - 15 mmol/L [facility] BUN 9 6 - 25 mg/dL [facility] Creatinine 0.67 0.60 - 1.10 mg/dL [facility] Glucose 118 70 - 199 mg/dL [facility] Comment: Interpretive Data Fasting glucose >/= 126 mg/dl is diagnostic for diabetes. Fasting is defined as no caloric intake for at least 8 hours. Fasting glucose between 100 mg/dl to 125 mg/dl is diagnostic of prediabetes. In a patient with classic symptoms of hyperglycemia or hyperglycemic crisis, a random glucose >/= 200 mg/dl is diagnostic for diabetes. In the absence of unequivocal hyperglycemia, results should be confirmed by repeat testing. The classification and Diagnosis of Diabetes Diabetes Care 2021; 46: S19-S40. Current interpretive data was last revised 2022. Calcium 9.2 8.5 - 10.3 mg/dL [facility] Bilirubin, total 0.5 0.1 - 1.2 mg/dL [facility] Protein, pl 6.7 6.5 - 8.5 g/dL [facility] Albumin 3.7 3.5 - 5.0 g/dL [facility] Alk phos 139(H) 40 - 130 Units/L [facility] ALT 21 7 - 45 Units/L [facility] AST 22 10 - 45 Units/L [facility] Blood 12/08/2024 1:36 PM CDT 12/08/2024 2:28 PM CDT Vicente Mandujano MD LAB BLOOD OR DERABLES Final Result [facility] Department [place] [address] * HLA Antibody Screen - SAB (Class I and Class II) (12/08/2024 1:15 PM CDT) Pathologist [facility] [place] Class I Treatment EDTA [facility] Class I Dilution 1:1 [facility] Class I Tested Date 12/09/2024 [facility] Class I Result Positive [facility] Class I CPRA 8 [facility] Class I Moderate Risk B60 [facility] Class I Low Risk B8, B13, B44, B45, B46, B49, B50, B56, B57, B59, B62, B71, B72, B75, B82 [facility] Class II Treatment EDTA [facility] Class II Dilution 1:1 [facility] Class II Tested Date 12/09/2024 [facility] Class II Result Negative [facility] Class II CPRA 0 [facility] Blood 12/08/2024 1:15 PM CDT 12/18/2024 11:27 AM CDT Narrative [facility] - 12/18/2024 11:27 AM CDT Single-antigen HLA antibody screen is performed on serum samples using a method developed and validated by the [facility] HLA laboratory based on an FDA-approved IVD kit (LABScreen Single-Antigen, [employer] PF, [place], [place]). All patient serum samples are pretreated with EDTA before the screen to prevent complement interference. Additional serum treatments, such as adsorption and DTT treatment, may be performed as indicated. Interpretive comments: Low risk: MFI 0293-5336. Moderate risk: MFI 6152-4576. Increased risk: MFI >/= 5000. The presence of an antigen in two or more risk categories may indicate a mixed reactivity pattern among beads of multiple subtypes. Preformed donor-specific antibodies (DSA) with MFI above 2000 are predictive of positive cytotoxicity crossmatch (Hum Immunol 2010;71:268-73. Hum Immunol 2012;73:497- 604) and carry a higher risk of humoral rejection. For our solid-organ transplant programs, unacceptable antigens (UA) for transplant candidates are defined by MFI >/= 2000 with some exceptions. UA are listed at [employer] and used to generate calculated PRA (cPRA) rounded to the nearest integer. In the post-transplant setting, MFI values from donor-specific beads are listed in the DSA report to provide additional information. It is important to note that this test is approved as a qualitative test and the MFI values are not strictly linear. For platelet refractoriness: An empirical cutoff value of MFI >/= 2000 has been used in our center; a higher cutoff value such as 5000 may also be suitable for highly sensitized patients to prioritize the antigens to avoid. Testing performed at the [facility], [address] [place] [address], 5th floor, [place], [address]. [place] # [id number]. Nicole Riley, Ph.D., Salvage Repairer, HLA Laboratory Franklin Hull M.D., Ph.D., Green Chain Puller, HLA Laboratory Gladis Zuluaga, Ph.D., CLIA Green Chain Puller, [facility] Current methodology and interpretive comments last revised on 09/27/2022. Vicentekatie Mandujano MD LAB BLOOD OR DERABLES Final Result [facility] * eGFR (12/08/2024 10:37 AM CDT) eGFR >90 >=60 mL/min/1. 73 m2 Comment: Interpretive Data Reference Interval Normal >/= 90 mL/min/1.73m2 Mildly decreased* 60 - 89 mL/min/1.73m2 Mildly to moderately decreased 45 - 59 mL/min/1.73m2 Moderately to severely decreased 30 - 44 mL/min/1.73m2 Severely decreased 15 - 29 mL/min/1.73m2 Kidney Failure < 15 mL/min/1.73m2 *Relative to young adult level Estimated glomerular filtration rate is determined by the 2020 CKD-EPI equation recommended by the National Kidney Foundation (A Unifying Approach to GFR Estimation: Recommendations of the NKF-ASK Task Force on Reassessing the Inclusion of Race in Diagnosing Kidney Disease, JASN 2020). The CKD-EPI equation should not be used for patients with unstable renal function and has not been validated in children and those over 70. Current interpretive data was last reviewed 2021. Blood 12/08/2024 10:3 7 AM CDT 12/08/2024 10:52 AM CDT Vicente Mandujano MD LAB BLOOD OR DERABLES Final Result Performing Organization Address City/[facility]/ZIP Co de Phone Number [facility] Department [place] [address] * (ABNORMAL) Differential, auto (12/08/2024 10:37 AM CDT) Neutrophil abs 0.73(L) 1.50 - 6.50 K/cumm Comment:Testing performed by : [facility], [address] [place] [phone] Lymphocyte abs 0.08(L) 0.80 - 3.30 K/cumm [facility] Comment:Testing performed by : [facility], [address] [place] [phone] Monocyte abs 0.06(L) 0.20 - 0.80 K/cumm [facility] Comment:Testing performed by : [facility], [address] [place] [phone] Eosinophil abs 0.00 0.00 - 0.50 K/cumm [facility] Comment:Testing performed by : [facility], [address] [place] [phone] Basophil abs 0.01 0.00 - 0.10 K/cumm [facility] Comment:Testing performed by : [facility], [address] [place] [phone] Neutrophil pct 83.1 % [facility] Comment: Interpretive Data Percent cell count reference ranges are not reported, since discordance with absolute values may lead to misinterpretation of CBC data. Current Interpretive Data was last revised on 2017. Testing performed by: [facility], [address] [place] [phone] Lymphocyte pct 9.5 % [facility] Comment: Interpretive Data Percent cell count reference ranges are not reported, since discordance with absolute values may lead to misinterpretation of CBC data. Current Interpretive Data was last revised on 2017. Testing performed by: [facility], [address] [place] [phone] Monocyte pct 6.3 % [facility] Comment: Interpretive Data Percent cell count reference ranges are not reported, since discordance with absolute values may lead to misinterpretation of CBC data. Current Interpretive Data was last revised on 2017. Testing performed by: [facility], [address] [place] [phone] Eosinophil pct 0.0 % [facility] Comment: Interpretive Data Percent cell count reference ranges are not reported, since discordance with absolute values may lead to misinterpretation of CBC data. Current Interpretive Data was last revised on 2017. Testing performed by: [facility], [address] [place] [phone] Basophil pct 1.1 % [facility] Comment: Interpretive Data Percent cell count reference ranges are not reported, since discordance with absolute values may lead to misinterpretation of CBC data. Current Interpretive Data was last revised on 2017. Testing performed by: [facility], [address] [place] [address] Blood 12/08/2024 10:3 7 AM CDT 12/08/2024 10:46 AM CDT Vicente Mandujano MD LAB BLOOD OR DERABLES Final Result [facility] One [facility] Department [place] [address] * (ABNORMAL) CBC with auto differential (12/08/2024 10:37 AM CDT) WBC 0.88(L) 3.80 - 9.90 K/cumm Comment:Testing performed by : [facility], [address] [place] [address] Hgb 10.3(L) 11.9 - 15.5 g/dL [facility] Comment:Testing performed by : [facility], [address] [place] [address] Hct 29.5(L) 35.6 - 45.5 % [facility] Comment:Testing performed by : [facility], [address] [place] [address] Plt 53(L) 150 - 400 K/cumm [facility] Comment:Testing performed by : [facility], [address] [place] [address] MPV 8.4 6.8 - 10.4 fL [facility] Comment:Testing performed by : [facility], [address] [place] [address] RBC 3.49(L) 3.90 - 5.20 M/cumm [facility] Comment:Testing performed by : [facility], [address] [place] [address] MCV 84.6 81.3 - 96.4 fL [facility] Comment:Testing performed by : [facility], [address] [place], [place] [id number] MCH 29.7 27.1 - 33.3 pg [facility] Comment:Testing performed by : [facility], [address] [place] [phone] MCHC 35.1 32.3 - 35.7 g/dL [facility] Comment:Testing performed by : [facility], [address] [place], [place] [id number] RDW CV 14.8 11.1 - 14.9 % [facility] Comment:Testing performed by : [facility], [address] [place], [place] [id number] NRBC abs 0.00 0.00 - 0.01 K/cumm [facility] Comment:Testing performed by : [facility], [address] [place], [place] [id number] Blood 12/08/2024 10:3 7 AM CDT 12/08/2024 10:46 AM CDT Vicnete Mandujano MD LAB BLOOD OR DERABLES Final Result [facility] One [facility] Department [place] [address] * Type and screen (12/08/2024 10:37 AM CDT) ABO Rh A Positive Bing, indirect Negative [facility] Blood 12/08/2024 10:3 7 AM CDT 12/08/2024 11:06 AM CDT Narrative [facility] - 12/08/2024 11:56 AM CDT Has the patient had Daratumumab or Isatuximab in the past 6 months?->Unknown Vicente Mandujano MD LAB BLOOD BA NK TEST ORDERABLES Final Result [facility] [place] [address] * Phosphorus (12/08/2024 10:37 AM CDT) Phosphorus, pl 2.8 2.3 - 4.5 mg/dL Blood 12/08/2024 10:3 7 AM CDT 12/08/2024 10:52 AM CDT Vicente Mandujano MD LAB BLOOD OR DERABLES Final Result Performing Organization Address City/[facility] [place] [address] * Magnesium (12/08/2024 10:37 AM CDT) Pathologist [facility] [place] Magnesium 1.9 1.4 - 2.5 mg/dL Blood 12/08/2024 10:3 7 AM CDT 12/08/2024 10:52 AM CDT Vicente Mandujano MD LAB BLOOD OR DERABLES Final Result Performing Organization Address [facility] Co de Phone Number [facility] [place] [address] * Lipase (12/08/2024 10:37 AM CDT) Lipase 21 10 - 99 Units/L Blood 12/08/2024 10:3 7 AM CDT 12/08/2024 10:52 AM CDT Vicente Mandujano MD LAB BLOOD OR DERABLES Final Result Performing Organization Address City/[facility]/ZIP Co de Phone Number [facility] [place] [address] * Lactate dehydrogenase (LD) (12/08/2024 10:37 AM CDT) Lactate dehydrogenase (LDH) 201 100 - 250 Units/L Blood 12/08/2024 10:3 7 AM CDT 12/08/2024 10:52 AM CDT Vicente Mandujano MD LAB BLOOD OR DERABLES Final Result Performing Organization Address City/[facility] Co de Phone Number [facility] [place] [address] * Bilirubin, direct (12/08/2024 10:37 AM CDT) Pathologist [facility] [place] Bilirubin, direct 0.3 0.1 - 0.3 mg/dL Blood 12/08/2024 10:3 7 AM CDT 12/08/2024 10:52 AM CDT Vicente Mandujano MD LAB BLOOD OR DERABLES Final Result Performing Organization Address [facility] de Phone Number [facility] [place] [address] * Amylase (12/08/2024 10:37 AM CDT) Pathologist [facility] [place] Amylase 42 30 - 99 Units/L Blood 12/08/2024 10:3 7 AM CDT 12/08/2024 10:52 AM CDT Vicente Mandujano MD LAB BLOOD OR DERABLES Final Result Performing Organization Address [facility] de Phone Number [facility] [place] [address] * (ABNORMAL) Comprehensive metabolic panel (12/08/2024 10:37 AM CDT) Pathologist [facility] [place] Sodium 142 135 - 145 mmol/L Potassium, pl 3.2(L) 3.3 - 4.9 mmol/L [facility] Chloride 103 97 - 110 mmol/L [facility] CO2 27 22 - 32 mmol/L [facility] Anion gap 12 2 - 15 mmol/L [facility] BUN 8 6 - 25 mg/dL [facility] Creatinine 0.70 0.60 - 1.10 mg/dL [facility] Glucose 111 70 - 199 mg/dL [facility] Comment: Interpretive Data Fasting glucose >/= 126 mg/dl is diagnostic for diabetes. Fasting is defined as no caloric intake for at least 8 hours. Fasting glucose between 100 mg/dl to 125 mg/dl is diagnostic of prediabetes. In a patient with classic symptoms of hyperglycemia or hyperglycemic crisis, a random glucose >/= 200 mg/dl is diagnostic for diabetes. In the absence of unequivocal hyperglycemia, results should be confirmed by repeat testing. The classification and Diagnosis of Diabetes Diabetes Care 202; 46: S19-S40. Current interpretive data was last revised 2022. Calcium 9.3 8.5 - 10.3 mg/dL [facility] Bilirubin, total 0.6 0.1 - 1.2 mg/dL [facility] Protein, pl 6.8 6.5 - 8.5 g/dL [facility] Albumin 3.6 3.5 - 5.0 g/dL [facility] Alk phos 141(H) 40 - 130 Units/L [facility] ALT 21 7 - 45 Units/L [facility] AST 23 10 - 45 Units/L [facility] Blood 12/08/2024 10:3 7 AM CDT 12/08/2024 10:52 AM CDT us Vicente Mandujano MD LAB BLOOD OR DERABLES Final Result [facility] One [facility] [place] [address] * Transfuse RBC (12/04/2024 1:48 PM CDT) Blood Jefferson Horvath MD BLOOD TRANSFUSION ORDERABLES Final Result Performing Organization Address City/State/[facility] Co de Phone Number [facility] [place] [address] * ECG 12 lead (12/04/2024 11:59 AM CDT) Ventricular Rate EKG/Min 93 BPM [facility] Atrial Rate 93 BPM [facility] [place]-Interval (MSEC) 136 ms [facility] QRS-Interval (MSEC) 80 ms [facility] QT-Interval (MSEC) 384 ms [facility] QTc 477 ms [facility] P [place] 63 degrees [facility] R [place] 56 degrees [facility] T [place] 50 degrees [facility] Diagnosis Normal sinus rhythm Normal ECG When compared with ECG of 03-DEC-2024 17:22, No significant change was found Confirmed by WALT MAHONEY M.D ([id number]) on 12/06/2024 4:50:14 PM [facility] 12/04/2024 11:5 9 AM CDT 12/06/2024 4:50 PM CDT Jefferson Horvath MD ECG ORDERABLES Final Result Performing Organization Address [facility] de Phone Number [facility] * Transfuse platelets (12/04/2024 11:31 AM CDT) Jefferson Horvath MD BLOOD TRANSFUSION ORDERABLES Final Result Performing Organization Address [facility] Co de Phone Number [facility] One [facility] Department [place] [address] * Prepare platelets: 1 Units (12/04/2024 8:00 AM CDT) [facility] Product code [id number] Unit Number [id number] C [facility] Product Blood Type APOS [facility] Dispense Status PRESUMED TRANSFUSED [facility] Blood Venous blood specimen / Unknown 12/04/2024 8:00 AM CDT 12/04/2024 8:00 AM CDT Narrative [facility] - 12/05/2024 12:57 AM CDT Are special requirements needed? (all products are leukoreduced)->Yes Date required:-20240929 Special Req 1:-Irradiated PLT # of Units:-1-Units Reasons:-Stable, non-bleeding, plt < 10 K/cumm} Jefferson Horvath MD BLOOD BANK PRODUCT ORDERABLE S Final Result Performing Organization Address [facility] de Phone Number [facility] [place] [address] * Prepare RBC: 1 Units (12/04/2024 8:00 AM CDT) Pathologist [facility] [place] Product code [id number] Unit Number [id number]- S [facility] Product Blood Type APOS [facility] Dispense Status PRESUMED TRANSFUSED [facility] Blood Venous blood specimen / Unknown 12/04/2024 8:00 AM CDT 12/04/2024 8:00 AM CDT Narrative [facility] - 12/05/2024 12:57 AM CDT Are special requirements needed? (All products are leukoreduced and CMV- safe)- >Yes Date required:-[id number] Special Req 1:-Irradiated LRRBC # of [id number] Reasons:-BMT, Hgb <8 g/dL} Jefferson Horvath MD BLOOD BANK PRODUCT ORDERABLE S Final Result Performing Organization Address [facility] de Phone Number [facility] [place] [address] * eGFR (12/04/2024 12:23 AM CDT) Pathologist [facility] eGFR >90 >=60 mL/min/1. 73 m2 Comment: Interpretive Data Reference Interval Normal >/= 90 mL/min/1.73m2 Mildly decreased* 60 - 89 mL/min/1.73m2 Mildly to moderately decreased 45 - 59 mL/min/1.73m2 Moderately to severely decreased 30 - 44 mL/min/1.73m2 Severely decreased 15 - 29 mL/min/1.73m2 Kidney Failure < 15 mL/min/1.73m2 *Relative to young adult level Estimated glomerular filtration rate is determined by the 2020 CKD-EPI equation recommended by the National Kidney Foundation (A Unifying Approach to GFR Estimation: Recommendations of the NKF-ASK Task Force on Reassessing the Inclusion of Race in Diagnosing Kidney Disease, JASN 2020). The CKD-EPI equation should not be used for patients with unstable renal function and has not been validated in children and those over 70. Current interpretive data was last reviewed 2021. Blood 12/04/2024 12:2 3 AM CDT 12/04/2024 12:43 AM CDT Vicente Mandujano MD LAB BLOOD OR DERABLES Final Result [facility] Department [place] [address] * (ABNORMAL) Manual Differential (12/04/2024 12:23 AM CDT) Cells Counted 92 Neutrophil abs 0.29(C) 1.50 - 6.50 K/cumm [facility] Comment:BMT patient, result not critical Lymphocyte abs 0.06(L) 0.80 - 3.30 K/cumm [facility] Monocyte abs 0.01(L) 0.20 - 0.80 K/cumm [facility] Neutrophil pct 79.3 % [facility] Comment: Interpretive Data Percent cell count reference ranges are not reported, since discordance with absolute values may lead to misinterpretation of CBC data. Current Interpretive Data was last revised on 2017. Lymphocyte pct 17.4 % [facility] Comment: Interpretive Data Percent cell count reference ranges are not reported, since discordance with absolute values may lead to misinterpretation of CBC data. Current Interpretive Data was last revised on 2017. Monocyte pct 3.3 % [facility] Comment: Interpretive Data Percent cell count reference ranges are not reported, since discordance with absolute values may lead to misinterpretation of CBC data. Current Interpretive Data was last revised on 2017. RBC morphology Normal [facility] Platelet estimate Decreased( A) [facility] Blood 12/04/2024 12:2 3 AM CDT 12/04/2024 12:42 AM CDT Vicente Mandujano MD LAB BLOOD OR DERABLES Edited Result - Final [facility] One [facility] Department [place] [address] * (ABNORMAL) CBC without differential (12/04/2024 12:23 AM CDT) WBC 0.36(C) 3.80 - 9.90 K/cumm Comment:Critical value kebede d within last 72 hrs Hgb 8.1(L) 11.9 - 15.5 g/dL [facility] Hct 22.4(L) 35.6 - 45.5 % [facility] Plt 20(C) 150 - 400 K/cumm [facility] Comment:Platelet count confi rmed by additional testing. Critical platelet count threshold determined by patient location: Outpatient:<50 K/cumm , Inpatient adults:<20 K/cumm , Inpatient pediatric:<25 K/cumm, BMT service:<10 K/cumm MPV 10.9 9.1 - 12.3 fL [facility] RBC 2.66(L) 3.90 - 5.20 M/cumm [facility] MCV 84.2 81.3 - 96.4 fL [facility] MCH 30.5 27.1 - 33.3 pg [facility] MCHC 36.2(H) 32.3 - 35.7 g/dL [facility] RDW CV 13.6 11.1 - 14.9 % [facility] RDW SD 42.1 35.7 - 48.1 fL [facility] NRBC abs 0.00 0.00 - 0.01 K/cumm [facility] Blood 12/04/2024 12:2 3 AM CDT 12/04/2024 12:42 AM CDT Vicente Mandujano MD LAB BLOOD OR DERABLES Edited Result - Final Performing Organization Address City/[facility] Co de Phone Number [facility] [place] [address] * Phosphorus (12/04/2024 12:23 AM CDT) Pathologist [facility] Phosphorus, pl 2.3 2.3 - 4.5 mg/dL Blood 12/04/2024 12:2 3 AM CDT 12/04/2024 12:38 AM CDT Vicente Mandujano MD LAB BLOOD OR DERABLES Final Result Performing Organization Address [facility] Co de Phone Number [facility] [place] [address] * Magnesium (12/04/2024 12:23 AM CDT) Pathologist [facility] [place] Magnesium 1.8 1.4 - 2.5 mg/dL Blood 12/04/2024 12:2 3 AM CDT 12/04/2024 12:38 AM CDT Dominique Pino MD LAB BLOOD ORDERABLES Final Resul t Performing Organization Address [facility] Co de Phone Number [facility] [place] [address] * (ABNORMAL) Basic metabolic panel (12/04/2024 12:23 AM CDT) Sodium 141 135 - 145 mmol/L Potassium, pl 3.9 3.3 - 4.9 mmol/L [facility] Chloride 104 97 - 110 mmol/L [facility] CO2 29 22 - 32 mmol/L [facility] Anion gap 8 2 - 15 mmol/L [facility] BUN 6 6 - 25 mg/dL [facility] Creatinine 0.52(L) 0.60 - 1.10 mg/dL [facility] Glucose 96 70 - 199 mg/dL [facility] Comment: Interpretive Data Fasting glucose >/= 126 mg/dl is diagnostic for diabetes. Fasting is defined as no caloric intake for at least 8 hours. Fasting glucose between 100 mg/dl to 125 mg/dl is diagnostic of prediabetes. In a patient with classic symptoms of hyperglycemia or hyperglycemic crisis, a random glucose >/= 200 mg/dl is diagnostic for diabetes. In the absence of unequivocal hyperglycemia, results should be confirmed by repeat testing. The classification and Diagnosis of Diabetes Diabetes Care 2021; 46: S19-S40. Current interpretive data was last revised 2022. Calcium 8.5 8.5 - 10.3 mg/dL [facility] Blood 12/04/2024 12:2 3 AM CDT 12/04/2024 12:38 AM CDT Narrative [facility] - 12/04/2024 1:13 AM CDT Daily except Saturday and . Morning draw. Vicente Mandujano MD LAB BLOOD OR DERABLES Final Result [facility] One [facility] Department [place] [address] * ECG 12 lead (12/03/2024 5:22 PM CDT) Pathologist [facility] [place] Ventricular Rate EKG/Min 97 BPM [facility] Atrial Rate 97 BPM [facility] AZ-Interval (MSEC) 148 ms [facility] QRS-Interval (MSEC) 80 ms [facility] QT-Interval (MSEC) 372 ms [facility] QTc 472 ms [facility] P [place] 64 degrees [facility] R [place] 41 degrees [facility] T [place] 40 degrees [facility] Diagnosis Normal sinus rhythm Normal ECG When compared with ECG of 01-DEC-2024 15:11, No significant change was found Confirmed by JANELLE ARREAGA M.D ([id number]) on 12/04/2024 10:12:17 AM [facility] 12/03/2024 5:22 PM CDT 12/04/2024 10:12 AM CDT us Jefferson Horvath MD ECG ORDERABLES Final Result [facility] * Tissue aerobic and anaerobic culture and gram stain Biopsy Groin (12/03/2024 3:33 PM CDT) Direct Specimen Exam Stain: No polymorphonuclear leukocytes seen. No organisms seen. Report Final Report: No growth [facility] Biopsy (Groin) 12/03/2024 3: 33 PM CDT 12/03/2024 4:47 PM CDT Narrative [facility] - 12/06/2024 11:16 AM CDT Specimen received in a sterile container. Testing performed by [facility] ([phone]) Specimens submitted from normally sterile body sites will have all bacterial morphotypes identified. Specimens that contain grossly mixed kevon and/or are from body sites that are not normally sterile will be examined for Staphylococcus aureus, Pseudomonas aeruginosa, beta-hemolytic strep, vancomycin-resistant Enterococcus, Bacteroides, Parabacteroides, Clostridium perfringens and fungus. If any of these are isolated, the organism will be reported. Current interpretive data was last revised on 2019. Dominique Pino MD LAB MICROBIOLOGY - GENERAL ORDER [place] Final Result Performing Organization Address City/[facility]/ZIP Co de Phone Number [facility] Department [place] [address] * Mycology (fungal) culture and stain Biopsy Groin (12/03/2024 3:33 PM CDT) Direct Specimen Exam Stain: No Fungal elements seen. Report Final Report: No growth of fungus [facility] Biopsy (Groin) 12/03/2024 3: 33 PM CDT 12/03/2024 4:48 PM CDT Narrative [facility] - 12/31/2024 10:07 AM CDT Specimen received in a sterile container. Testing performed by [facility] ([phone]). Dominique Pino MD LAB MICROBIOLOGY - GENERAL ORDER DAWSON Final Result [facility] Department [place] [address] * Surgical pathology (12/03/2024 3:33 PM CDT) Tissue (Skin, biopsy) 12/03/2024 3:33 PM CDT 12/03/2024 3:57 PM CDT Narrative PATHOLOGY [facility] - 12/07/2024 12:29 PM CDT EPIC results best viewed via link to PDF [facility] [place] [address] Note to Patients: This report may contain a detailed description of human tissue sent by a health care provider to the laboratory for pathologic evaluation. The content of this report is essential for diagnosis and may provide important critical findings. This information may be unfamiliar to patients to review without a medical professional present. It is advised that the patient review this report in the presence of a health care provider who can answer questions and explain the details. SURGICAL PATHOLOGY REPORT FINAL Patient Name: RENU DURON Gender: F : 1965 (Age: 59) Address: [address] [place], [place] [id number] Hospital #: [id number] Taken:12/03/2024 Received:12/03/2024 Reported: 12/07/2024 Patient Type: [facility] Inpatient Service: [facility] Location: [place] [address] Physician(s): Mima Hernandez M.D. MD Dominique Phillips M.D. Jason E. Barnett, M.D. 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 There is also a superficial and deep interstitial mixed inflammatory infiltrate. Given the histologic appearance, special stains for infectious organisms (Gram, GMS, Val, and AFB) were performed and are negative. Overall the features are non-specific and favored to be reactive in nature, though infection cannot be entirely excluded. Clinical correlation is advised. This case has been reviewed with another member of the dermatopathology faculty who agrees with the diagnosis. exr/12/04/2024 10:15 By this signature, I attest that the above diagnosis is based upon my personal examination of the slides(and/or other material indicated in the diagnosis). Luc Savage MD, PhD Report Electronically Reviewed and Signed Out By Luc Savage MD, PhD 12/07/2024 12:29:25 Microscopic Description and Comment: There is mild spongiosis of the epidermis with scattered, apoptotic keratinocytes. There is a superficial and deep interstitial mixed inflammatory infiltrate composed of lymphocytes, histiocytes, neutrophils, and eosinophils. Microscopic slide review and interpretation for this case was performed at the Dermatopathology Center, Department of Pathology and Immunology, [facility], [address] [place] [address], [address], [address] # [id number] Anny Pagan M.D. History: The patient is a 59-year-old woman presenting with neutropenia; persistent labial cellulitis previously groin Pseudomonas; rule out cellulitis versus fungal infection. Operative procedure: Mons pubis skin punch biopsy Specimen(s) Received: A: Skin, mons pubis, punch biopsy Gross Description: Received in formalin, labeled with the patient's name and date of is a 0.5 cm in diameter punch of skin excised to a depth of 0.4 cm. The skin surface is davidson-pink and grossly unremarkable. The margin of excision is inked blue and the specimen is bisected. The tissue is placed between blue sponges. Labeled A1. Jar 0. sxst/12/03/2024 16:15 PA(s): Halina Dawn By this signature, I attest that the above diagnosis is based upon my personal examination of the slides(and/or other material). Addenda/Procedures The performance characteristics of some immunohistochemical stains, fluorescence in-situ hybridization tests and immunophenotyping by flow cytometry cited in this report (if any) were determined by the Surgical Pathology and Flow Cytometry Departments at [facility] as part of an ongoing quality coordinator program and in compliance with federally mandated regulations drawn from the Clinical Laboratory Improvement Act of 1988 (CLIA '88). Some of these tests rely on the use of analyte specific reagents and are subject to specific labeling requirements by the US Food and Drug Administration. Such diagnostic tests may only be performed in a facility that is certified by the Department of Health and Human Services as a high complexity laboratory under CLIA '88. The FDA has determined that such clearance or approval is not necessary. This test is used for clinical purposes. It should not be regarded as investigational or for research. Nevertheless, federal rules concerning the medical use of analyte specific reagents require that the following disclaimer be attached to the report: This test was developed and its performance characteristics determined by the Surgical Pathology and Flow Cytometry Departments of [facility]. It has not been cleared or approved by the U. S. Food and Drug Administration. IMAGES AND SCANNED DOCUMENTS, IF INCLUDED, ONLY VIEWABLE IN PDF VERSION OF REPORT Dominique Pino MD LAB PATHOLOGY ORDERABLES Final R esult PATHOLOGY [facility] 3rd Floor [place], [place] [phone] * Type and screen (12/03/2024 12:48 AM CDT) Pathologist [facility] [place] ABO Rh A Positive Bing, indirect Negative [facility] Blood 12/03/2024 12:4 8 AM CDT 12/03/2024 1:04 AM CDT Narrative [facility] - 12/03/2024 2:34 AM CDT Has the patient had Daratumumab or Isatuximab in the past 6 months?->Unknown Vicente Mandujano MD LAB BLOOD BA NK TEST ORDERABLES Final Result [facility] One [facility] Department [place] [address] * eGFR (12/03/2024 12:47 AM CDT) eGFR >90 >=60 mL/min/1. 73 m2 Comment: Interpretive Data Reference Interval Normal >/= 90 mL/min/1.73m2 Mildly decreased* 60 - 89 mL/min/1.73m2 Mildly to moderately decreased 45 - 59 mL/min/1.73m2 Moderately to severely decreased 30 - 44 mL/min/1.73m2 Severely decreased 15 - 29 mL/min/1.73m2 Kidney Failure < 15 mL/min/1.73m2 *Relative to young adult level Estimated glomerular filtration rate is determined by the 2020 CKD-EPI equation recommended by the National Kidney Foundation (A Unifying Approach to GFR Estimation: Recommendations of the NKF-ASK Task Force on Reassessing the Inclusion of Race in Diagnosing Kidney Disease, JASN 2020). The CKD-EPI equation should not be used for patients with unstable renal function and has not been validated in children and those over 70. Current interpretive data was last reviewed 2021. Blood 12/03/2024 12:4 7 AM CDT 12/03/2024 1:02 AM CDT Vicente Mandujano MD LAB BLOOD OR DERABLES Final Result [facility] One [facility] Department [place] [address] * (ABNORMAL) Manual Differential (12/03/2024 12:47 AM CDT) Cells Counted 71 Neutrophil abs 0.27(C) 1.50 - 6.50 K/cumm [facility] Comment:BMT patient, result not critical Imm gran abs 0.00 0.00 - 0.10 K/cumm [facility] Lymphocyte abs 0.02(L) 0.80 - 3.30 K/cumm [facility] Monocyte abs 0.00(L) 0.20 - 0.80 K/cumm [facility] Neutrophil pct 91.6 % [facility] Comment: Interpretive Data Percent cell count reference ranges are not reported, since discordance with absolute values may lead to misinterpretation of CBC data. Current Interpretive Data was last revised on 2017. Lymphocyte pct 5.6 % [facility] Comment: Interpretive Data Percent cell count reference ranges are not reported, since discordance with absolute values may lead to misinterpretation of CBC data. Current Interpretive Data was last revised on 2017. Monocyte pct 1.4 % [facility] Comment: Interpretive Data Percent cell count reference ranges are not reported, since discordance with absolute values may lead to misinterpretation of CBC data. Current Interpretive Data was last revised on 2017. Metamyelocyte pct 1.4(H) 0.0 - 0.0 % [facility] RBC morphology Present(A ) [facility] Anisocytosis Slight(A) [facility] Microcytes 3-7/HPF(A ) [facility] Platelet estimate Decreased (A) [facility] Blood 12/03/2024 12:4 7 AM CDT 12/03/2024 12:58 AM CDT Vicente Mandujano MD LAB BLOOD OR DERABLES Edited Result - Final [facility] One [facility] Department [place] [address] * (ABNORMAL) CBC without differential (12/03/2024 12:47 AM CDT) WBC 0.30(C) 3.80 - 9.90 K/cumm Comment:Consistent with prev iously reported result. Hgb 8.3(L) 11.9 - 15.5 g/dL [facility] Hct 22.4(L) 35.6 - 45.5 % [facility] Plt 15(C) 150 - 400 K/cumm [facility] Comment:Platelet count confi rmed by additional testing. Critical platelet count threshold determined by patient location: Outpatient:<50 K/cumm , Inpatient adults:<20 K/cumm , Inpatient pediatric:<25 K/cumm, BMT service:<10 K/cumm MPV 11.5 9.1 - 12.3 fL [facility] RBC 2.71(L) 3.90 - 5.20 M/cumm [facility] MCV 82.7 81.3 - 96.4 fL [facility] MCH 30.6 27.1 - 33.3 pg [facility] MCHC 37.1(H) 32.3 - 35.7 g/dL [facility] RDW CV 13.7 11.1 - 14.9 % [facility] RDW SD 41.4 35.7 - 48.1 fL [facility] NRBC abs 0.00 0.00 - 0.01 K/cumm [facility] Blood 12/03/2024 12:4 7 AM CDT 12/03/2024 12:58 AM CDT Vicente Mandujano MD LAB BLOOD OR DERABLES Edited Result - Final [facility] Department [place] [address] * (ABNORMAL) Uric acid (12/03/2024 12:47 AM CDT) Pathologist [facility] [place] Uric acid 1.1(L) 2.5 - 7.0 mg/dL Blood 12/03/2024 12:4 7 AM CDT 12/03/2024 12:55 AM CDT Narrative [facility] - 12/03/2024 1:39 AM CDT Saturday and only. Morning draw. . Vicente Mandujano MD LAB BLOOD OR DERABLES Final Result [facility] Department [place] [address] * (ABNORMAL) Phosphorus (12/03/2024 12:47 AM CDT) Phosphorus, pl 2.2(L) 2.3 - 4.5 mg/dL Blood 12/03/2024 12:4 7 AM CDT 12/03/2024 12:55 AM CDT us Vicente Mandujano MD LAB BLOOD OR DERABLES Final Result Performing Organization Address City/[facility]/ZIP Co de Phone Number [facility] [place] [address] * Magnesium (12/03/2024 12:47 AM CDT) [facility] Magnesium 1.7 1.4 - 2.5 mg/dL Blood 12/03/2024 12:4 7 AM CDT 12/03/2024 12:55 AM CDT Dominique Pino MD LAB BLOOD ORDERABLES Final Resul t Performing Organization Address [facility] Co de Phone Number [facility] [place] [address] * Lactate dehydrogenase (LD) (12/03/2024 12:47 AM CDT) [facility] Lactate dehydrogenase (LDH) 161 100 - 250 Units/L Blood 12/03/2024 12:4 7 AM CDT 12/03/2024 12:55 AM CDT Narrative [facility] - 12/03/2024 1:39 AM CDT Saturday and only. Morning draw. Vicente Mandujano MD LAB BLOOD OR DERABLES Final Result Performing Organization Address [facility] Co de Phone Number [facility] [place] [address] * (ABNORMAL) Comprehensive metabolic panel (12/03/2024 12:47 AM CDT) [facility] Sodium 141 135 - 145 mmol/L Potassium, pl 3.0(L) 3.3 - 4.9 mmol/L [facility] Chloride 102 97 - 110 mmol/L [facility] CO2 32 22 - 32 mmol/L [facility] Anion gap 7 2 - 15 mmol/L [facility] BUN 5(L) 6 - 25 mg/dL [facility] Creatinine 0.52(L) 0.60 - 1.10 mg/dL [facility] Glucose 99 70 - 199 mg/dL [facility] Comment: Interpretive Data Fasting glucose >/= 126 mg/dl is diagnostic for diabetes. Fasting is defined as no caloric intake for at least 8 hours. Fasting glucose between 100 mg/dl to 125 mg/dl is diagnostic of prediabetes. In a patient with classic symptoms of hyperglycemia or hyperglycemic crisis, a random glucose >/= 200 mg/dl is diagnostic for diabetes. In the absence of unequivocal hyperglycemia, results should be confirmed by repeat testing. The classification and Diagnosis of Diabetes Diabetes Care 2021; 46: S19-S40. Current interpretive data was last revised 2022. Calcium 8.4(L) 8.5 - 10.3 mg/dL [facility] Bilirubin, total 0.9 0.1 - 1.2 mg/dL [facility] Protein, pl 5.5(L) 6.5 - 8.5 g/dL [facility] Albumin 2.6(L) 3.5 - 5.0 g/dL [facility] Alk phos 97 40 - 130 Units/L [facility] ALT 23 7 - 45 Units/L [facility] AST 16 10 - 45 Units/L [facility] Blood 12/03/2024 12:4 7 AM CDT 12/03/2024 12:55 AM CDT Narrative [facility] - 12/03/2024 1:39 AM CDT Saturday and only. Morning draw. Vicente Mandujano MD LAB BLOOD OR DERABLES Final Result [facility] One [facility] Department [place] [address] * (ABNORMAL) Creatine kinase (CK), total (12/02/2024 7:25 PM CDT) CK 29(L) 30 - 200 Units/L Blood 12/02/2024 7:25 PM CDT 12/02/2024 7:38 PM CDT us Cheo Boudreaux MD LAB BLOOD ORDERABLES Final Res ult Performing Organization Address City/[facility]/ZIP Co de Phone Number [facility] Department [place] [address] * eGFR (12/02/2024 12:37 AM CDT) eGFR >90 >=60 mL/min/1. 73 m2 Comment: Interpretive Data Reference Interval Normal >/= 90 mL/min/1.73m2 Mildly decreased* 60 - 89 mL/min/1.73m2 Mildly to moderately decreased 45 - 59 mL/min/1.73m2 Moderately to severely decreased 30 - 44 mL/min/1.73m2 Severely decreased 15 - 29 mL/min/1.73m2 Kidney Failure < 15 mL/min/1.73m2 *Relative to young adult level Estimated glomerular filtration rate is determined by the 2020 CKD-EPI equation recommended by the National Kidney Foundation (A Unifying Approach to GFR Estimation: Recommendations of the NKF-ASK Task Force on Reassessing the Inclusion of Race in Diagnosing Kidney Disease, JASN 2020). The CKD-EPI equation should not be used for patients with unstable renal function and has not been validated in children and those over 70. Current interpretive data was last reviewed 2021. Blood 12/02/2024 12:3 7 AM CDT 12/02/2024 12:52 AM CDT us Vicente Mandujano MD LAB BLOOD OR DERABLES Final Result Performing Organization Address City/[facility]/ZIP Co de Phone Number [facility] Department [place] [address] * (ABNORMAL) Manual Differential (12/02/2024 12:37 AM CDT) Neutrophil abs 0.27(C) 1.50 - 6.50 K/cumm Comment:BMT patient, result not critical Lymphocyte abs 0.04(L) 0.80 - 3.30 K/cumm [facility] Monocyte abs 0.01(L) 0.20 - 0.80 K/cumm [facility] Neutrophil pct 84.2 % [facility] Comment: Interpretive Data Percent cell count reference ranges are not reported, since discordance with absolute values may lead to misinterpretation of CBC data. Current Interpretive Data was last revised on 2017. Lymphocyte pct 12.3 % [facility] Comment: Interpretive Data Percent cell count reference ranges are not reported, since discordance with absolute values may lead to misinterpretation of CBC data. Current Interpretive Data was last revised on 2017. Monocyte pct 3.5 % [facility] Comment: Interpretive Data Percent cell count reference ranges are not reported, since discordance with absolute values may lead to misinterpretation of CBC data. Current Interpretive Data was last revised on 2017. RBC morphology Normal [facility] Platelet estimate Decreased( A) [facility] Blood 12/02/2024 12:3 7 AM CDT 12/02/2024 12:51 AM CDT Vicente Mandujano MD LAB BLOOD OR DERABLES Final Result [facility] One [facility] Department [place] [address] * (ABNORMAL) CBC without differential (12/02/2024 12:37 AM CDT) WBC 0.32(C) 3.80 - 9.90 K/cumm Comment:Consistent with prev ious reported value Hgb 9.4(L) 11.9 - 15.5 g/dL [facility] Hct 25.8(L) 35.6 - 45.5 % [facility] Plt 14(C) 150 - 400 K/cumm [facility] Comment:Platelet count confi rmed by additional testing. Critical platelet count threshold determined by patient location: Outpatient:<50 K/cumm , Inpatient adults:<20 K/cumm , Inpatient pediatric:<25 K/cumm, BMT service:<10 K/cumm MPV 12.3 9.1 - 12.3 fL [facility] RBC 3.10(L) 3.90 - 5.20 M/cumm [facility] MCV 83.2 81.3 - 96.4 fL [facility] MCH 30.3 27.1 - 33.3 pg [facility] MCHC 36.4(H) 32.3 - 35.7 g/dL [facility] RDW CV 13.8 11.1 - 14.9 % [facility] RDW SD 42.2 35.7 - 48.1 fL [facility] NRBC abs 0.00 0.00 - 0.01 K/cumm [facility] Blood 12/02/2024 12:3 7 AM CDT 12/02/2024 12:51 AM CDT Vicente Mandujano MD LAB BLOOD OR DERABLES Edited Result - Final [facility] Department [place] [address] * Type and screen (12/02/2024 12:37 AM CDT) Pathologist [facility] [place] ABO Rh A Positive Bing, indirect Negative [facility] Blood 12/02/2024 12:3 7 AM CDT 12/02/2024 12:48 AM CDT Narrative [facility] - 12/02/2024 1:46 AM CDT Has the patient had Daratumumab or Isatuximab in the past 6 months?->Unknown Vicente Mandujano MD LAB BLOOD BA NK TEST ORDERABLES Final Result [facility] Department [place] [address] * Phosphorus (12/02/2024 12:37 AM CDT) Phosphorus, pl 2.4 2.3 - 4.5 mg/dL Blood 12/02/2024 12:3 7 AM CDT 12/02/2024 12:52 AM CDT Vicente Mandujano MD LAB BLOOD OR DERABLES Final Result [facility] One [facility] Department [place] [address] * (ABNORMAL) Basic metabolic panel (12/02/2024 12:37 AM CDT) Sodium 141 135 - 145 mmol/L Potassium, pl 3.2(L) 3.3 - 4.9 mmol/L [facility] Chloride 101 97 - 110 mmol/L [facility] CO2 31 22 - 32 mmol/L [facility] Anion gap 9 2 - 15 mmol/L [facility] BUN 4(L) 6 - 25 mg/dL [facility] Creatinine 0.53(L) 0.60 - 1.10 mg/dL [facility] Glucose 99 70 - 199 mg/dL [facility] Comment: Interpretive Data Fasting glucose >/= 126 mg/dl is diagnostic for diabetes. Fasting is defined as no caloric intake for at least 8 hours. Fasting glucose between 100 mg/dl to 125 mg/dl is diagnostic of prediabetes. In a patient with classic symptoms of hyperglycemia or hyperglycemic crisis, a random glucose >/= 200 mg/dl is diagnostic for diabetes. In the absence of unequivocal hyperglycemia, results should be confirmed by repeat testing. The classification and Diagnosis of Diabetes Diabetes Care 2021; 46: S19-S40. Current interpretive data was last revised 2022. Calcium 8.5 8.5 - 10.3 mg/dL [facility] Blood 12/02/2024 12:3 7 AM CDT 12/02/2024 12:52 AM CDT Narrative [facility] - 12/02/2024 1:20 AM CDT Daily except Saturday and . Morning draw. Vicente Mandujano MD LAB BLOOD OR DERABLES Final Result Performing Organization Address [facility] de Phone Number [facility] Department [place] [address] * ECG 12 lead (12/01/2024 3:11 PM CDT) [facility] Ventricular Rate EKG/Min 98 BPM [facility] Atrial Rate 98 BPM [facility] [place]-Interval (MSEC) 150 ms [facility] QRS-Interval (MSEC) 86 ms [facility] QT-Interval (MSEC) 372 ms [facility] QTc 474 ms [facility] P [place] 49 degrees [facility] R [place] 46 degrees [facility] T [place] 45 degrees [facility] Diagnosis Normal sinus rhythm Low voltage QRS Borderline ECG When compared with ECG of 30-NOV-2024 08:22, No significant change was found Confirmed by JANELLE ARREAGA M.D ([id number]) on 12/02/2024 11:14:42 AM [facility] 12/01/2024 3:11 PM CDT 12/02/2024 11:14 AM CDT Jefferson Horvath MD ECG ORDERABLES Final Result Performing Organization Address [facility] de Phone Number [facility] * Transfuse RBC (12/01/2024 5:35 AM CDT) Blood Jefferson Horvath MD BLOOD TRANSFUSION ORDERABLES Final Result Performing Organization Address [facility] de Phone Number [facility] Department [place] [address] * Prepare RBC: 1 Units (12/01/2024 1:24 AM CDT) [facility] Product code [id number] Unit Number [id number]- U [facility] Product Blood Type APOS [facility] Dispense Status PRESUMED TRANSFUSED [facility] Blood Venous blood specimen / Unknown 12/01/2024 1:24 AM CDT 12/01/2024 1:23 AM CDT Narrative [facility] - 12/01/2024 4:00 PM CDT Are special requirements needed? (All products are leukoreduced and CMV- safe)- >Yes Date required:-[id number] Special Req 1:-Irradiated LRRBC # of [id number] Reasons:-BMT, Hgb <8 g/dL} Jefferson Horvath MD BLOOD BANK PRODUCT ORDERABLE S Final Result Performing Organization Address City/[facility]/ZIP Co de Phone Number [facility] Department [place] [address] * Immature platelet fraction (12/01/2024 12:33 AM CDT) Pathologist [facility] [place] IPF 3.7 1.6 - 10.1 % Blood 12/01/2024 12:3 3 AM CDT 12/01/2024 12:44 AM CDT Vicente Mandujano MD LAB BLOOD OR DERABLES Final Result Performing Organization Address [facility] Co de Phone Number [facility] [place] [address] * eGFR (12/01/2024 12:33 AM CDT) Pathologist [facility] [place] eGFR >90 >=60 mL/min/1. 73 m2 Comment: Interpretive Data Reference Interval Normal >/= 90 mL/min/1.73m2 Mildly decreased* 60 - 89 mL/min/1.73m2 Mildly to moderately decreased 45 - 59 mL/min/1.73m2 Moderately to severely decreased 30 - 44 mL/min/1.73m2 Severely decreased 15 - 29 mL/min/1.73m2 Kidney Failure < 15 mL/min/1.73m2 *Relative to young adult level Estimated glomerular filtration rate is determined by the 2020 CKD-EPI equation recommended by the National Kidney Foundation (A Unifying Approach to GFR Estimation: Recommendations of the NKF-ASK Task Force on Reassessing the Inclusion of Race in Diagnosing Kidney Disease, JASN 2020). The CKD-EPI equation should not be used for patients with unstable renal function and has not been validated in children and those over 70. Current interpretive data was last reviewed 2021. Blood 12/01/2024 12:3 3 AM CDT 12/01/2024 12:43 AM CDT Vicente Mandujano MD LAB BLOOD OR DERABLES Final Result [facility] One [facility] Department [place] [address] * (ABNORMAL) Manual Differential (12/01/2024 12:33 AM CDT) Differential Manual Cells Counted 102 [facility] Neutrophil abs 0.3(L) 1.5 - 6.5 K/cumm [facility] Comment:BMT patient, result not critical Imm gran abs 0.0 0.0 - 0.1 K/cumm [facility] Lymphocyte abs 0.0(L) 0.8 - 3.3 K/cumm [facility] Monocyte abs 0.0(L) 0.2 - 0.8 K/cumm [facility] Neutrophil pct 87.2 % [facility] Comment: Interpretive Data Percent cell count reference ranges are not reported, since discordance with absolute values may lead to misinterpretation of CBC data. Current Interpretive Data was last revised on 2017. Lymphocyte pct 10.8 % [facility] Comment: Interpretive Data Percent cell count reference ranges are not reported, since discordance with absolute values may lead to misinterpretation of CBC data. Current Interpretive Data was last revised on 2017. Monocyte pct 2.0 % [facility] Comment: Interpretive Data Percent cell count reference ranges are not reported, since discordance with absolute values may lead to misinterpretation of CBC data. Current Interpretive Data was last revised on 2017. RBC morphology Normal [facility] Platelet estimate Decreased( A) [facility] Blood 12/01/2024 12:3 3 AM CDT 12/01/2024 12:41 AM CDT Vicente Mandujano MD LAB BLOOD OR DERABLES Edited Result - Final [facility] Department [place] [address] * Blood culture Blood (12/01/2024 12:33 AM CDT) Report Final Report: No growth Blood 12/01/2024 12:3 3 AM CDT 12/01/2024 12:41 AM CDT Narrative [facility] - 12/05/2024 7:00 AM CDT Collection->Peripheral 1. Blood cultures are incubated for 4 days on a continuously monitored blood culture system. The first report of a negative culture is issued within 24 hours of receipt of the specimen in the laboratory. 2. Positive culture results are reported as soon as they are detected. 3. The most important factor for detection of microbes in the setting of bloodstream infection is the volume of blood submitted for culture. Failure to collect an optimal blood volume can result in false negative blood cultures. 4. For pediatric patients, the recommended blood volume to collect follows a weight based strategy. See the electronic test catalog for collection instructions. 5. For positive blood cultures, a rapid molecular test may be performed for organism identification using the rosemary ePlex blood culture identification panel for gram positive (BCID-GP) and gram negative (BCID-GN) organisms. This nucleic acid amplification test detects microbial DNA in positive blood culture broth. This assay has been cleared by the [place] Food and Drug Administration and its performance characteristics have been verified by the [facility] Microbiology Laboratory. For questions about this culture, contact the Microbiology Laboratory at [phone]. Interpretive data was last revised on 24. us Jefferson Horvath MD LAB MICROBIOLOGY - GENERAL O RDERABLES Final Result [facility] Department [place] [address] * (ABNORMAL) CBC without differential (12/01/2024 12:33 AM CDT) Pathologist [facility] [place] WBC 0.3(C) 3.8 - 9.9 K/cumm Comment:Consistent with prev ious reported value Hgb 7.6(L) 11.9 - 15.5 g/dL [facility] Hct 21.3(L) 35.6 - 45.5 % [facility] Plt 12(C) 150 - 400 K/cumm [facility] Comment:Platelet count confi rmed by additional testing. Critical platelet count threshold determined by patient location: Outpatient:<50 K-cumm , Inpatient:<20 K-cumm , BMT service:<10 K-cumm MPV 11.2 9.1 - 12.3 fL [facility] RBC 2.52(L) 3.90 - 5.20 M/cumm [facility] MCV 84.5 81.3 - 96.4 fL [facility] MCH 30.2 27.1 - 33.3 pg [facility] MCHC 35.7 32.3 - 35.7 g/dL [facility] RDW CV 14.1 11.1 - 14.9 % [facility] RDW SD 43.8 35.7 - 48.1 fL [facility] NRBC abs 0.00 0.00 - 0.01 K/cumm [facility] Blood 12/01/2024 12:3 3 AM CDT 12/01/2024 12:41 AM CDT Vicente Mandujano MD LAB BLOOD OR DERABLES Final Result [facility] Department [place] [address] * (ABNORMAL) Phosphorus (12/01/2024 12:33 AM CDT) Pathologist [facility] [place] Phosphorus, pl 2.2(L) 2.3 - 4.5 mg/dL Blood 12/01/2024 12:3 3 AM CDT 12/01/2024 12:43 AM CDT Vicente Mandujano MD LAB BLOOD OR DERABLES Final Result [facility] One [facility] Department [place] [address] * (ABNORMAL) Basic metabolic panel (12/01/2024 12:33 AM CDT) Sodium 144 135 - 145 mmol/L Potassium, pl 3.7 3.3 - 4.9 mmol/L [facility] Chloride 106 97 - 110 mmol/L [facility] CO2 31 22 - 32 mmol/L [facility] Anion gap 7 2 - 15 mmol/L [facility] BUN 5(L) 6 - 25 mg/dL [facility] Creatinine 0.56(L) 0.60 - 1.10 mg/dL [facility] Glucose 92 70 - 199 mg/dL [facility] Comment: Interpretive Data Fasting glucose >/= 126 mg/dl is diagnostic for diabetes. Fasting is defined as no caloric intake for at least 8 hours. Fasting glucose between 100 mg/dl to 125 mg/dl is diagnostic of prediabetes. In a patient with classic symptoms of hyperglycemia or hyperglycemic crisis, a random glucose >/= 200 mg/dl is diagnostic for diabetes. In the absence of unequivocal hyperglycemia, results should be confirmed by repeat testing. The classification and Diagnosis of Diabetes Diabetes Care 202; 46: S19-S40. Current interpretive data was last revised 2022. Calcium 8.8 8.5 - 10.3 mg/dL [facility] Blood 12/01/2024 12:3 3 AM CDT 12/01/2024 12:43 AM CDT Narrative [facility] - 12/01/2024 1:13 AM CDT Daily except Saturday and . Morning draw. Vicente Mandujano MD LAB BLOOD OR DERABLES Final Result [facility] One [facility] Department [place] [address] * eGFR (11/30/2024 12:42 PM CDT) eGFR >90 >=60 mL/min/1. 73 m2 Comment: Interpretive Data Reference Interval Normal >/= 90 mL/min/1.73m2 Mildly decreased* 60 - 89 mL/min/1.73m2 Mildly to moderately decreased 45 - 59 mL/min/1.73m2 Moderately to severely decreased 30 - 44 mL/min/1.73m2 Severely decreased 15 - 29 mL/min/1.73m2 Kidney Failure < 15 mL/min/1.73m2 *Relative to young adult level Estimated glomerular filtration rate is determined by the 2020 CKD-EPI equation recommended by the National Kidney Foundation (A Unifying Approach to GFR Estimation: Recommendations of the NKF-ASK Task Force on Reassessing the Inclusion of Race in Diagnosing Kidney Disease, JASN 2020). The CKD-EPI equation should not be used for patients with unstable renal function and has not been validated in children and those over 70. Current interpretive data was last reviewed 2021. Blood 11/30/2024 12:4 2 PM CDT 11/30/2024 12:59 PM CDT Azalia Schilling MD LAB BLOOD ORDERABLES Final Result [facility] Department [place] [address] * (ABNORMAL) Phosphorus (11/30/2024 12:42 PM CDT) Phosphorus, pl 1.7(L) 2.3 - 4.5 mg/dL Blood 11/30/2024 12:4 2 PM CDT 11/30/2024 12:59 PM CDT Azalia Schilling MD LAB BLOOD ORDERABLES Final Result [facility] Department [place] [address] * (ABNORMAL) Basic metabolic panel (11/30/2024 12:42 PM CDT) Pathologist [facility] [place] Sodium 138 135 - 145 mmol/L Potassium, pl 3.2(L) 3.3 - 4.9 mmol/L [facility] Chloride 100 97 - 110 mmol/L [facility] CO2 32 22 - 32 mmol/L [facility] Anion gap 6 2 - 15 mmol/L [facility] BUN 5(L) 6 - 25 mg/dL [facility] Creatinine 0.53(L) 0.60 - 1.10 mg/dL [facility] Glucose 133 70 - 199 mg/dL [facility] Comment: Interpretive Data Fasting glucose >/= 126 mg/dl is diagnostic for diabetes. Fasting is defined as no caloric intake for at least 8 hours. Fasting glucose between 100 mg/dl to 125 mg/dl is diagnostic of prediabetes. In a patient with classic symptoms of hyperglycemia or hyperglycemic crisis, a random glucose >/= 200 mg/dl is diagnostic for diabetes. In the absence of unequivocal hyperglycemia, results should be confirmed by repeat testing. The classification and Diagnosis of Diabetes Diabetes Care 2021; 46: S19-S40. Current interpretive data was last revised 2022. Calcium 8.4(L) 8.5 - 10.3 mg/dL [facility] Blood 11/30/2024 12:4 2 PM CDT 11/30/2024 12:59 PM CDT Azalia Schilling MD LAB BLOOD ORDERABLES Final Result [facility] One [facility] Department [place] [address] * ECG 12 lead (11/30/2024 8:22 AM CDT) Ventricular Rate EKG/Min 91 BPM [facility] Atrial Rate 91 BPM [facility] [place]-Interval (MSEC) 158 ms [facility] QRS-Interval (MSEC) 84 ms [facility] QT-Interval (MSEC) 378 ms [facility] QTc 464 ms [facility] P [place] 75 degrees [facility] R [place] 68 degrees [facility] T [place] 64 degrees [facility] Diagnosis Normal sinus rhythm Normal ECG When compared with ECG of 29-NOV-2024 16:03, (unconfirmed) No significant change was found Confirmed by ASH SALGUERO M.D ([id number]) on 11/30/2024 1:01:23 PM [facility] 11/30/2024 8:22 AM CDT 11/30/2024 1:01 PM CDT us Jefferson Horvath MD ECG ORDERABLES Final Result [facility] * Blood culture Blood Peripheral (11/30/2024 3:36 AM CDT) Report Final Report: No growth Blood (Peripheral) 11/30/2024 3:36 AM CDT 11/30/2024 3:58 AM CDT Narrative [facility] - 12/04/2024 7:01 AM CDT Collection->Peripheral 1. Blood cultures are incubated for 4 days on a continuously monitored blood culture system. The first report of a negative culture is issued within 24 hours of receipt of the specimen in the laboratory. 2. Positive culture results are reported as soon as they are detected. 3. The most important factor for detection of microbes in the setting of bloodstream infection is the volume of blood submitted for culture. Failure to collect an optimal blood volume can result in false negative blood cultures. 4. For pediatric patients, the recommended blood volume to collect follows a weight based strategy. See the electronic test catalog for collection instructions. 5. For positive blood cultures, a rapid molecular test may be performed for organism identification using the rosemary ePlex blood culture identification panel for gram positive (BCID-GP) and gram negative (BCID-GN) organisms. This nucleic acid amplification test detects microbial DNA in positive blood culture broth. This assay has been cleared by the [place] Food and Drug Administration and its performance characteristics have been verified by the [facility] Microbiology Laboratory. For questions about this culture, contact the Microbiology Laboratory at [phone]. Interpretive data was last revised on 24. us Vicente Mandujano MD LAB MICROBIOLOGY - GENERAL ORDERABLES Final Result [facility] [place] [address] * Immature platelet fraction (11/30/2024 12:31 AM CDT) Pathologist [facility] [place] IPF 2.7 1.6 - 10.1 % Blood 11/30/2024 12:3 1 AM CDT 11/30/2024 1:13 AM CDT Vicente Mandujano MD LAB BLOOD OR DERABLES Final Result Performing Organization Address City/[facility] Co de Phone Number [facility] Department [place] [address] * eGFR (11/30/2024 12:31 AM CDT) [facility] eGFR >90 >=60 mL/min/1. 73 m2 Comment: Interpretive Data Reference Interval Normal >/= 90 mL/min/1.73m2 Mildly decreased* 60 - 89 mL/min/1.73m2 Mildly to moderately decreased 45 - 59 mL/min/1.73m2 Moderately to severely decreased 30 - 44 mL/min/1.73m2 Severely decreased 15 - 29 mL/min/1.73m2 Kidney Failure < 15 mL/min/1.73m2 *Relative to young adult level Estimated glomerular filtration rate is determined by the 2020 CKD-EPI equation recommended by the National Kidney Foundation (A Unifying Approach to GFR Estimation: Recommendations of the NKF-ASK Task Force on Reassessing the Inclusion of Race in Diagnosing Kidney Disease, JASN 2020). The CKD-EPI equation should not be used for patients with unstable renal function and has not been validated in children and those over 70. Current interpretive data was last reviewed 2021. Blood 11/30/2024 12:3 1 AM CDT 11/30/2024 1:11 AM CDT Vicente Mandujano MD LAB BLOOD OR DERABLES Final Result [facility] One [facility] Department [place] [address] * (ABNORMAL) Manual Differential (11/30/2024 12:31 AM CDT) Differential Manual Cells Counted 64 [facility] Neutrophil abs 0.2(L) 1.5 - 6.5 K/cumm [facility] Comment:BMT patient, result not critical Imm gran abs 0.0 0.0 - 0.1 K/cumm [facility] Lymphocyte abs 0.0(L) 0.8 - 3.3 K/cumm [facility] Monocyte abs 0.0(L) 0.2 - 0.8 K/cumm [facility] Basophil abs 0.0 0.0 - 0.1 K/cumm [facility] Neutrophil pct 90.6 % [facility] Comment: Interpretive Data Percent cell count reference ranges are not reported, since discordance with absolute values may lead to misinterpretation of CBC data. Current Interpretive Data was last revised on 2017. Lymphocyte pct 7.8 % [facility] Comment: Interpretive Data Percent cell count reference ranges are not reported, since discordance with absolute values may lead to misinterpretation of CBC data. Current Interpretive Data was last revised on 2017. Basophil pct 1.6 % [facility] Comment: Interpretive Data Percent cell count reference ranges are not reported, since discordance with absolute values may lead to misinterpretation of CBC data. Current Interpretive Data was last revised on 2017. RBC morphology Present(A) [facility] Anisocytosis Moderate(A ) [facility] Poikilocytosis Slight(A) [facility] Microcytes 8-15/HPF(A ) [facility] Platelet estimate Decreased( A) [facility] Blood 11/30/2024 12:3 1 AM CDT 11/30/2024 1:04 AM CDT Vicente Mandujano MD LAB BLOOD OR DERABLES Edited Result - Final Performing Organization Address [facility] de Phone Number [facility] [place] [address] * aPTT (11/30/2024 12:31 AM CDT) aPTT 36 28 - 38 sec Comment: Interpretive Data Heparin therapeutic range: 66.0 - 100.0 seconds. Range based on correlation with therapeutic heparin activity range of 0.3 - 0.7 Units/mL. Current interpretive data was last revised on 2023. Blood 11/30/2024 12:3 1 AM CDT 11/30/2024 1:07 AM CDT Vicente Mandujano MD LAB BLOOD OR DERABLES Final Result Performing Organization Address [facility] de Phone Number [facility] [place] [address] * (ABNORMAL) Protime-INR (11/30/2024 12:31 AM CDT) PT 14.1(H) 9.7 - 13.0 sec INR 1.30(H) 0.90 - 1.20 [facility] Comment: Interpretive data Oral anticoagulant therapeutic ranges: Venous thromboembolism prophylaxis or treatment: 2.0-3.0 CARDIOLOGY Standard range: 2.0-3.0 High-intensity range: 2.5-3.5 Refer to indication-specific guidelines for appropriate target ranges for prosthetic heart valve replacement. Current interpretive data was last revised on 2019. Blood 11/30/2024 12:3 1 AM CDT 11/30/2024 1:07 AM CDT Vicente Mandujano MD LAB BLOOD OR DERABLES Final Result Performing Organization Address [facility]/ZIP Co de Phone Number [facility] Department [place] [address] * (ABNORMAL) CBC without differential (11/30/2024 12:31 AM CDT) Pathologist [facility] [place] WBC 0.2(C) 3.8 - 9.9 K/cumm Comment:Consistent with prev ious reported value Hgb 8.4(L) 11.9 - 15.5 g/dL [facility] Hct 23.5(L) 35.6 - 45.5 % [facility] Plt 10(C) 150 - 400 K/cumm [facility] Comment:Platelet count confi rmed by additional testing. Critical platelet count threshold determined by patient location: Outpatient:<50 K-cumm , Inpatient:<20 K-cumm , BMT service:<10 K-cumm MPV 13.3(H) 9.1 - 12.3 fL [facility] RBC 2.82(L) 3.90 - 5.20 M/cumm [facility] MCV 83.3 81.3 - 96.4 fL [facility] MCH 29.8 27.1 - 33.3 pg [facility] MCHC 35.7 32.3 - 35.7 g/dL [facility] RDW CV 14.1 11.1 - 14.9 % [facility] RDW SD 43.4 35.7 - 48.1 fL [facility] NRBC abs 0.00 0.00 - 0.01 K/cumm [facility] Blood 11/30/2024 12:3 1 AM CDT 11/30/2024 1:04 AM CDT Vicente Mandujano MD LAB BLOOD OR DERABLES Final Result [facility] One [facility] Department [place] [address] * Type and screen (11/30/2024 12:31 AM CDT) [facility] Bing, indirect Negative ABO Rh A Positive [facility] Blood 11/30/2024 12:3 1 AM CDT 11/30/2024 1:01 AM CDT Narrative [facility] - 11/30/2024 2:17 AM CDT Has the patient had Daratumumab or Isatuximab in the past 6 months?->Unknown Vicente Mandujano MD LAB BLOOD BA NK TEST ORDERABLES Final Result Performing Organization Address [facility] Co de Phone Number [facility] [place] [address] * (ABNORMAL) Uric acid (11/30/2024 12:31 AM CDT) [facility] Uric acid 0.8(L) 2.5 - 7.0 mg/dL Blood 11/30/2024 12:3 1 AM CDT 11/30/2024 1:07 AM CDT Narrative [facility] - 11/30/2024 1:49 AM CDT Saturday and only. Morning draw. . Vicente Mandujano MD LAB BLOOD OR DERABLES Final Result Performing Organization Address [facility] Co de Phone Number [facility] [place] [address] * (ABNORMAL) Phosphorus (11/30/2024 12:31 AM CDT) Pathologist [facility] [place] Phosphorus, pl 1.3(L) 2.3 - 4.5 mg/dL Blood 11/30/2024 12:3 1 AM CDT 11/30/2024 1:07 AM CDT Vicente Mandujano MD LAB BLOOD OR DERABLES Final Result Performing Organization Address [facility] Co de Phone Number [facility] Department [place] [address] * Magnesium (11/30/2024 12:31 AM CDT) [facility] Magnesium 1.6 1.4 - 2.5 mg/dL Blood 11/30/2024 12:3 1 AM CDT 11/30/2024 1:07 AM CDT Marcus Vergara MD LAB BLOOD ORDERABLES Final Resu lt Performing Organization Address City/[facility]/ZIP Co de Phone Number [facility] Department [place] [address] * Lactate dehydrogenase (LD) (11/30/2024 12:31 AM CDT) [facility] Lactate dehydrogenase (LDH) 203 100 - 250 Units/L Comment:Reviewed Blood 11/30/2024 12:3 1 AM CDT 11/30/2024 1:07 AM CDT Narrative [facility] - 11/30/2024 1:49 AM CDT Saturday and only. Morning draw. Vicente Mandujano MD LAB BLOOD OR DERABLES Final Result Performing Organization Address [facility] Co de Phone Number [facility] Department [place] [address] * (ABNORMAL) Comprehensive metabolic panel (11/30/2024 12:31 AM CDT) [facility] Sodium 138 135 - 145 mmol/L Potassium, pl 2.9(L) 3.3 - 4.9 mmol/L [facility] Chloride 100 97 - 110 mmol/L [facility] CO2 29 22 - 32 mmol/L [facility] Anion gap 9 2 - 15 mmol/L [facility] BUN 4(L) 6 - 25 mg/dL [facility] Creatinine 0.47(L) 0.60 - 1.10 mg/dL [facility] Glucose 103 70 - 199 mg/dL [facility] Comment: Interpretive Data Fasting glucose >/= 126 mg/dl is diagnostic for diabetes. Fasting is defined as no caloric intake for at least 8 hours. Fasting glucose between 100 mg/dl to 125 mg/dl is diagnostic of prediabetes. In a patient with classic symptoms of hyperglycemia or hyperglycemic crisis, a random glucose >/= 200 mg/dl is diagnostic for diabetes. In the absence of unequivocal hyperglycemia, results should be confirmed by repeat testing. The classification and Diagnosis of Diabetes Diabetes Care 2021; 46: S19-S40. Current interpretive data was last revised 2022. Calcium 8.3(L) 8.5 - 10.3 mg/dL [facility] Bilirubin, total 0.9 0.1 - 1.2 mg/dL [facility] Protein, pl 5.9(L) 6.5 - 8.5 g/dL [facility] Albumin 2.8(L) 3.5 - 5.0 g/dL [facility] Alk phos 105 40 - 130 Units/L [facility] ALT 36 7 - 45 Units/L [facility] AST 28 10 - 45 Units/L [facility] Blood 11/30/2024 12:3 1 AM CDT 11/30/2024 1:07 AM CDT Narrative [facility] 11/30/2024 1:49 AM CDT Saturday and only. Morning draw. Vicente Mandujano MD LAB BLOOD OR DERABLES Final Result [facility] One [facility] Department [place] [address] * Vancomycin level trough Draw trough 30 minutes prior to 4th dose. (11/29/2024 8:41 PM CDT) Pathologist [facility] [place] Vancomycin trough 13.8 10.0 - 20.0 mcg/mL Comment:Repeated and Verifie d Blood 11/29/2024 8:41 PM CDT 11/29/2024 9:14 PM CDT [facility] 11/[facility] 10:24 PM CDT Draw trough 30 minutes prior to 4th dose. Marcus Vergara MD LAB BLOOD ORDERABLES Final Resu lt Performing Organization Address City/[facility]/ZIP Co de Phone Number [facility] One [facility] Department [place] [address] * ECG 12 lead (11/29/2024 4:03 PM CDT) Ventricular Rate EKG/Min 98 BPM [facility] Atrial Rate 98 BPM [facility] AZ-Interval (MSEC) 148 ms [facility] QRS-Interval (MSEC) 92 ms [facility] QT-Interval (MSEC) 374 ms [facility] QTc 477 ms [facility] P [place] 56 degrees [facility] R [place] 45 degrees [facility] T [place] 47 degrees [facility] Diagnosis Normal sinus rhythm Normal ECG When compared with ECG of 28-NOV-2024 08:43, (unconfirmed) No significant change was found Confirmed by ASH SALGUERO M.D ([id number]) on 11/30/2024 1:07:47 PM [facility] 11/29/2024 4:03 PM CDT 11/30/2024 1:07 PM CDT Jefferson Horvath MD ECG ORDERABLES Final Result Performing Organization Address [facility] Co de Phone Number [facility] * (ABNORMAL) Urinalysis reflex to microscopic and culture Urine (11/29/2024 4:26 AM CDT) Color, ur Straw Yellow Clarity, ur Clear Clear [facility] Specific gravity, ur 1.018 1.003 - 1.030 [facility] pH, urine 7.0 [facility] Comment: Interpretive Data U rine pH is affected by diet, medications, systemic acid-base disturbances, and renal tubular function. pH may affect urinary stone formation. For example, urine pH below 6.0 may help reduce the tendency for calcium phosphate stones and pH greater than 6.0 may reduce the tendency for uric acid stone formation. Source: [facility] [place] Current Interpretive Data was last revised on 2017 Protein, ur ql Negative Negative [facility] Glucose, ur ql Negative Negative [facility] Ketones, ur Negative Negative [facility] Bilirubin, ur Negative Negative [facility] Blood, ur Trace(A) Negative [facility] Urobilinogen, ur <2.0 <2.0 mg/dL [facility] Nitrite, ur Negative Negative [facility] Leukocyte esterase, ur Negative Negative [facility] UA reflex comment Reflex to microscopic UA will be performed. [facility] Urine 11/29/2024 4:26 AM CDT 11/29/2024 4:33 AM CDT Lazaro Mclean MD LAB MICROBIOLOGY - GENERA L ORDERABLES Final Result Performing Organization Address City/[facility]/ZIP Co de Phone Number [facility] [place] [address] * Urinalysis, microscopic only (11/29/2024 4:26 AM CDT) WBC, ur 0-5 0 - 5 /HPF RBC, ur 0-2 0 - 2 /HPF [facility] Culture Reflex Comment Reflex to urine culture will be performed. [facility] Urine 11/29/2024 4:26 AM CDT 11/29/2024 4:33 AM CDT Lazaro Mclean MD LAB URINE ORDERABLES Rosalva l Result Performing Organization Address City/[facility]/ZIP Co de Phone Number [facility] Department [place] [address] * Urine culture Urine (11/29/2024 4:26 AM CDT) Report Final Report: No growth Urine 11/29/2024 4:26 AM CDT 11/29/2024 5:06 AM CDT Narrative [facility] - 11/30/2024 7:36 AM CDT Urine culture reflexed based upon urinalysis results. Testing performed by [facility]biology Laboratory ([phone]) Lazaro Mclean MD LAB MICROBIOLOGY - GENERA L ORDERABLES Final Result DAVID [facility] Department [place] [address] * CT Abdomen Pelvis W Contrast (11/29/2024 2:59 AM CDT) Anatomical Region Laterality Modality Body N/A Computed Tomogra phy 11/29/2024 3:30 AM CDT Impressions 11/29/2024 10:58 AM CDT 1. Similar soft tissue thickening tracking from the mons pubis to the left labia in keeping with known cellulitis. No drainable fluid collection. 2. Mild urothelial thickening and enhancement of the right greater than left ureter. Findings can be seen in an ascending urinary tract infection. Correlate with urinalysis. Dictated by: Roge Erickson MD The radiology attending physician has personally reviewed this study, and had reviewed and/or edited this written report and agrees with it. Electronically signed by: Bj Kay M.D. 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 Patient with reported worsening left labial infection. TECHNIQUE: Transaxial computed tomographic images of the abdomen and pelvis were obtained with intravenous contrast according to the standard protocol after the uneventful administration of 68 mL Opti-Ray 350 intravenous contrast. COMPARISON: 11/27/2024 FINDINGS: Imaged lung bases are clear. Imaged heart is normal. Small hiatal hernia. There is similar soft tissue thickening and enhancement along the mons pubis tracking along the left labia (series 2, image 220). There is no organized or drainable fluid collection in this area. Normal liver surface morphology. Portal vasculature is patent. No biliary dilatation. The adrenal glands, gallbladder, spleen, and pancreas are normal. Kidneys enhance symmetrically. No hydronephrosis. Mild urothelial thickening and enhancement of the right greater than left ureter. The urinary bladder is normal. Trace free fluid in the pelvis, slight increased. No pneumoperitoneum. Abdominal aorta is not aneurysmal. No abdominal or pelvic lymphadenopathy. Uterus is midline. No suspicious adnexal mass. No evidence of bowel obstruction. No suspicious osseous lesion. 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 Patient with reported worsening left labial infection. TECHNIQUE: Transaxial computed tomographic images of the abdomen and pelvis were obtained with intravenous contrast according to the standard protocol after the uneventful administration of 68 mL Opti-Ray 350 intravenous contrast. COMPARISON: 11/27/2024 FINDINGS: Imaged lung bases are clear. Imaged heart is normal. Small hiatal hernia. There is similar soft tissue thickening and enhancement along the mons pubis tracking along the left labia (series 2, image 220). There is no organized or drainable fluid collection in this area. Normal liver surface morphology. Portal vasculature is patent. No biliary dilatation. The adrenal glands, gallbladder, spleen, and pancreas are normal. Kidneys enhance symmetrically. No hydronephrosis. Mild urothelial thickening and enhancement of the right greater than left ureter. The urinary bladder is normal. Trace free fluid in the pelvis, slight increased. No pneumoperitoneum. Abdominal aorta is not aneurysmal. No abdominal or pelvic lymphadenopathy. Uterus is midline. No suspicious adnexal mass. No evidence of bowel obstruction. No suspicious osseous lesion. IMPRESSION: 1. Similar soft tissue thickening tracking from the mons pubis to the left labia in keeping with known cellulitis. No drainable fluid collection. 2. Mild urothelial thickening and enhancement of the right greater than left ureter. Findings can be seen in an ascending urinary tract infection. Correlate with urinalysis. Dictated by: Roge Erickson MD The radiology attending physician has personally reviewed this study, and had reviewed and/or edited this written report and agrees with it. Electronically signed by: Bj Kay M.D. Lazaro Mclean MD IMG CT PROCEDURES Final R esult * (ABNORMAL) Lactate, whole blood (11/29/2024 1:44 AM CDT) Lactate, bld 2.4(H) 0.7 - 2.0 mmol/L Blood 11/29/2024 1:44 AM CDT 11/29/2024 1:48 AM CDT Lazaro Mclean MD LAB BLOOD ORDERABLES Rosalva l Result Performing Organization Address City/[facility]/ZIP Co de Phone Number [facility] Department [place] [address] * Blood culture Blood (11/29/2024 1:23 AM CDT) Report Final Report: No growth Blood 11/29/2024 1:23 AM CDT 11/29/2024 1:37 AM CDT Narrative [facility]ID [facility] - 12/03/2024 7:00 AM CDT Collection->Peripheral 1. Blood cultures are incubated for 4 days on a continuously monitored blood culture system. The first report of a negative culture is issued within 24 hours of receipt of the specimen in the laboratory. 2. Positive culture results are reported as soon as they are detected. 3. The most important factor for detection of microbes in the setting of bloodstream infection is the volume of blood submitted for culture. Failure to collect an optimal blood volume can result in false negative blood cultures. 4. For pediatric patients, the recommended blood volume to collect follows a weight based strategy. See the electronic test catalog for collection instructions. 5. For positive blood cultures, a rapid molecular test may be performed for organism identification using the rosemary ePlex blood culture identification panel for gram positive (BCID-GP) and gram negative (BCID-GN) organisms. This nucleic acid amplification test detects microbial DNA in positive blood culture broth. This assay has been cleared by the [place] Food and Drug Administration and its performance characteristics have been verified by the [facility]biology Laboratory. For questions about this culture, contact the Microbiology Laboratory at [phone]. Interpretive data was last revised on 24. us Jefferson Horvath MD LAB MICROBIOLOGY - GENERAL O RDERABLES Final Result Performing Organization Address City/[facility]/ZIP Co de Phone Number DAVID [facility] Department [place] [address] * Immature platelet fraction (11/29/2024 12:38 AM CDT) Pathologist [facility] [place] IPF 2.3 1.6 - 10.1 % Blood 11/29/2024 12:3 8 AM CDT 11/29/2024 1:05 AM CDT Vicente Mandujano MD LAB BLOOD OR DERABLES [place] [address] * eGFR (11/29/2024 12:38 AM CDT) [facility] eGFR >90 >=60 mL/min/1. 73 m2 Comment: Interpretive Data Reference Interval Normal >/= 90 mL/min/1.73m2 Mildly decreased* 60 - 89 mL/min/1.73m2 Mildly to moderately decreased 45 - 59 mL/min/1.73m2 Moderately to severely decreased 30 - 44 mL/min/1.73m2 Severely decreased 15 - 29 mL/min/1.73m2 Kidney Failure < 15 mL/min/1.73m2 *Relative to young adult level Estimated glomerular filtration rate is determined by the 2020 CKD-EPI equation recommended by the National Kidney Foundation (A Unifying Approach to GFR Estimation: Recommendations of the NKF-ASK Task Force on Reassessing the Inclusion of Race in Diagnosing Kidney Disease, JASN 2020). The CKD-EPI equation should not be used for patients with unstable renal function and has not been validated in children and those over 70. Current interpretive data was last reviewed 2021. Blood 11/29/2024 12:3 8 AM CDT 11/29/2024 1:02 AM CDT Vicente Mandujano MD LAB BLOOD OR DERABLES [place] [address] * (ABNORMAL) Manual Differential (11/29/2024 12:38 AM CDT) Differential Manual Cells Counted 31 [facility] Neutrophil abs 0.1(L) 1.5 - 6.5 K/cumm [facility] Comment:BMT patient, result not critical Imm gran abs 0.0 0.0 - 0.1 K/cumm [facility] Lymphocyte abs 0.0(L) 0.8 - 3.3 K/cumm [facility] Monocyte abs 0.0(L) 0.2 - 0.8 K/cumm [facility] Neutrophil pct 87.1 % [facility] Comment: Interpretive Data Percent cell count reference ranges are not reported, since discordance with absolute values may lead to misinterpretation of CBC data. Current Interpretive Data was last revised on 2017. Lymphocyte pct 12.9 % [facility] Comment: Interpretive Data Percent cell count reference ranges are not reported, since discordance with absolute values may lead to misinterpretation of CBC data. Current Interpretive Data was last revised on 2017. RBC morphology Present(A) [facility] Anisocytosis Moderate(A ) [facility] Microcytes 8-15/HPF(A ) [facility] Platelet estimate Decreased( A) [facility] Blood 11/29/2024 12:3 8 AM CDT 11/29/2024 1:02 AM CDT Vicente Mandujano MD LAB BLOOD OR DERABLES Edited Result - Final [facility] One [facility] Department [place] [address] * (ABNORMAL) CBC without differential (11/29/2024 12:38 AM CDT) WBC 0.1(C) 3.8 - 9.9 K/cumm Comment:Consistent with prev ious reported value Hgb 9.2(L) 11.9 - 15.5 g/dL [facility] Hct 25.1(L) 35.6 - 45.5 % [facility] Plt 12(C) 150 - 400 K/cumm [facility] Comment:Platelet count confi rmed by additional testing. Critical platelet count threshold determined by patient location: Outpatient:<50 K-cumm , Inpatient:<20 K-cumm , BMT service:<10 K-cumm MPV 11.1 9.1 - 12.3 fL [facility] RBC 3.08(L) 3.90 - 5.20 M/cumm [facility] MCV 81.5 81.3 - 96.4 fL [facility] MCH 29.9 27.1 - 33.3 pg [facility] MCHC 36.7(H) 32.3 - 35.7 g/dL [facility] RDW CV 14.3 11.1 - 14.9 % [facility] RDW SD 42.3 35.7 - 48.1 fL [facility] NRBC abs 0.00 0.00 - 0.01 K/cumm [facility] Blood 11/29/2024 12:3 8 AM CDT 11/29/2024 1:02 AM CDT Vicente Mandujano MD LAB BLOOD OR DERABLES Final Result [facility] One [facility] Department [place] [address] * Type and screen (11/29/2024 12:38 AM CDT) ABO Rh A Positive Bing, indirect Negative [facility] Blood 11/29/2024 12:3 8 AM CDT 11/29/2024 1:05 AM CDT Narrative [facility] - 11/29/2024 1:58 AM CDT Has the patient had Daratumumab or Isatuximab in the past 6 months?->Unknown Vicente Mandujano MD LAB BLOOD BA NK TEST ORDERABLES Final Result [facility] Department [place] [address] * (ABNORMAL) CRP (acute phase) (11/29/2024 12:38 AM CDT) [facility] CRP 241.5(H) <=10.0 mg/L Blood 11/29/2024 12:3 8 AM CDT 11/29/2024 1:02 AM CDT Marcus Vergara MD LAB BLOOD ORDERABLES Final Resu lt Performing Organization Address [facility] Co de Phone Number [facility] Department [place] [address] * (ABNORMAL) Phosphorus (11/29/2024 12:38 AM CDT) [facility] Phosphorus, pl 1.9(L) 2.3 - 4.5 mg/dL Blood 11/29/2024 12:3 8 AM CDT 11/29/2024 1:02 AM CDT Vicente Mandujano MD LAB BLOOD OR DERABLES Final Result Performing Organization Address [facility] Co de Phone Number [facility] Department [place] [address] * (ABNORMAL) Basic metabolic panel (11/29/2024 12:38 AM CDT) [facility] Sodium 138 135 - 145 mmol/L Potassium, pl 3.7 3.3 - 4.9 mmol/L [facility] Comment:Hemolyzed; Potassium value may be falsely elevated by as much as 0.6-1.0 mmol/L. Suggest redraw and reanalysis. Chloride 100 97 - 110 mmol/L [facility] CO2 27 22 - 32 mmol/L [facility] Anion gap 11 2 - 15 mmol/L [facility] BUN 4(L) 6 - 25 mg/dL [facility] Creatinine 0.51(L) 0.60 - 1.10 mg/dL [facility] Glucose 111 70 - 199 mg/dL [facility] Comment: Interpretive Data Fasting glucose >/= 126 mg/dl is diagnostic for diabetes. Fasting is defined as no caloric intake for at least 8 hours. Fasting glucose between 100 mg/dl to 125 mg/dl is diagnostic of prediabetes. In a patient with classic symptoms of hyperglycemia or hyperglycemic crisis, a random glucose >/= 200 mg/dl is diagnostic for diabetes. In the absence of unequivocal hyperglycemia, results should be confirmed by repeat testing. The classification and Diagnosis of Diabetes Diabetes Care 202; 46: S19-S40. Current interpretive data was last revised 2022. Calcium 8.3(L) 8.5 - 10.3 mg/dL [facility] Blood 11/29/2024 12:3 8 AM CDT 11/29/2024 1:02 AM CDT Narrative [facility] - 11/29/2024 1:33 AM CDT Daily except Saturday and . Morning draw. Vicente Mandujano MD LAB BLOOD OR DERABLES Final Result [facility] One [facility] Department [place] [address] * Coccidioides antibody screen w/reflex Blood (11/28/2024 9:25 AM CDT) [facility] Coccidioides ab screen, ser Negative Negative [facility] Comment: Repeat testing on a new sample in 2-3 weeks if clinically indicated. ADDITIONAL INFORMATION This test has been modified from the detail maker and fitter's instructions. Its performance characteristics were determined by [facility] in a manner consistent with CLIA requirements. This test has not been cleared or approved by the U.S. Food and Drug Administration. Test Performed by: [facility] - [address] Agent: Jesus Fontenot Ph.D.; CLIA# [id number] Blood 11/28/2024 9:25 AM CDT 11/28/2024 9:58 AM CDT Jefferson Horvath MD LAB MICROBIOLOGY - GENERAL O RDERABLES Final Result Performing Organization Address [facility] Co de Phone Number DAVID [facility] [place] [address] [facility] * Blastomyces antibody, EIA, serum Blood (11/28/2024 9:25 AM CDT) Pathologist [facility] [place] Blastomyces Antibody Negative Negative [facility] Comment: A single negative result does not exclude the diagnosis of blastomycosis. Repeat testing on a new sample in 7-14 days if clinically indicated. Test Performed by: [facility] [address] [place] [address] Agent: Jesus Fontenot Ph.D.; CLIA# [id number] Blood 11/28/2024 9:25 AM CDT 11/28/2024 9:57 AM CDT Jefferson Horvath MD LAB MICROBIOLOGY - GENERAL O RDERABLES Final Result Performing Organization Address [facility] Co de Phone Number [place] [address] [facility] * ECG 12 lead (11/28/2024 8:43 AM CDT) Pathologist [facility] Ventricular Rate EKG/Min 86 BPM [facility] Atrial Rate 86 BPM [facility] AZ-Interval (MSEC) 150 ms [facility] QRS-Interval (MSEC) 76 ms [facility] QT-Interval (MSEC) 398 ms [facility] QTc 476 ms [facility] P [place] 79 degrees [facility] R [place] 53 degrees [facility] T [place] 51 degrees [facility] Diagnosis Normal sinus rhythm Normal ECG Confirmed by Miguel May MD ([id number]) on 11/30/2024 10:23:05 AM [facility] 11/28/2024 8:43 AM CDT 11/30/2024 10:23 AM CDT Jefferson Horvath MD ECG ORDERABLES Final Result Performing Organization Address [facility] de Phone Number [facility] * Transfuse RBC (11/28/2024 6:46 AM CDT) Blood Jefferson Horvath MD BLOOD TRANSFUSION ORDERABLES Final Result Performing Organization Address [facility] de Phone Number [facility] Department [place] [address] * (ABNORMAL) Vancomycin level trough (11/28/2024 3:58 AM CDT) Vancomycin trough <4.0(L) 10.0 - 20.0 mcg/mL Blood 11/28/2024 3:58 AM CDT 11/28/2024 4:18 AM CDT Faheem Mcdaniels MD LAB BLOOD ORDERABLES Final R esult Performing Organization Address [facility] de Phone Number [facility] Department [place] [address] * Prepare RBC: 1 Units (11/28/2024 1:19 AM CDT) Product code [id number] Unit Number [id number] [facility] Product Blood Type APOS [facility] Dispense Status PRESUMED TRANSFUSED [facility] Blood Venous blood specimen / Unknown 11/28/2024 1:19 AM CDT 11/28/2024 1:18 AM CDT Narrative [facility] - 11/28/2024 8:01 PM CDT Are special requirements needed? (All products are leukoreduced and CMV- safe)- >Yes Date required:-[id number] Special Req 1:-Irradiated LRRBC # of [id number] Reasons:-BMT, Hgb <8 g/dL} us Jefferson Horvath MD BLOOD BANK PRODUCT ORDERABLE S Final Result Performing Organization Address City/[facility]/ZIP Co de Phone Number [facility] [place] [address] * Immature platelet fraction (11/28/2024 12:27 AM CDT) IPF 1.6 1.6 - 10.1 % Blood 11/28/2024 12:2 7 AM CDT 11/28/2024 12:59 AM CDT Vicente Mandujano MD LAB BLOOD OR DERABLES Final Result Performing Organization Address [facility] Co de Phone Number [facility] Department [place] [address] * eGFR (11/28/2024 12:27 AM CDT) Pathologist [facility] [place] eGFR >90 >=60 mL/min/1. 73 m2 Comment: Interpretive Data Reference Interval Normal >/= 90 mL/min/1.73m2 Mildly decreased* 60 - 89 mL/min/1.73m2 Mildly to moderately decreased 45 - 59 mL/min/1.73m2 Moderately to severely decreased 30 - 44 mL/min/1.73m2 Severely decreased 15 - 29 mL/min/1.73m2 Kidney Failure < 15 mL/min/1.73m2 *Relative to young adult level Estimated glomerular filtration rate is determined by the 2020 CKD-EPI equation recommended by the National Kidney Foundation (A Unifying Approach to GFR Estimation: Recommendations of the NKF-ASK Task Force on Reassessing the Inclusion of Race in Diagnosing Kidney Disease, JASN 2020). The CKD-EPI equation should not be used for patients with unstable renal function and has not been validated in children and those over 70. Current interpretive data was last reviewed 2021. Blood 11/28/2024 12:2 7 AM CDT 11/28/2024 12:55 AM CDT Vicente Mandujano MD LAB BLOOD OR DERABLES Final Result Performing Organization Address [facility] Co de Phone Number [facility] Department [place] [address] * (ABNORMAL) Manual Differential (11/28/2024 12:27 AM CDT) Differential Manual Cells Counted 18 [facility] Neutrophil pct 77.8 % [facility] Comment: Interpretive Data Percent cell count reference ranges are not reported, since discordance with absolute values may lead to misinterpretation of CBC data. Current Interpretive Data was last revised on 2017. Lymphocyte pct 22.2 % [facility] Comment: Interpretive Data Percent cell count reference ranges are not reported, since discordance with absolute values may lead to misinterpretation of CBC data. Current Interpretive Data was last revised on 2017. RBC morphology Present(A) [facility] Anisocytosis Moderate(A ) [facility] Microcytes 8-15/HPF(A ) [facility] Platelet estimate Decreased( A) [facility] Blood 11/28/2024 12:2 7 AM CDT 11/28/2024 12:55 AM CDT Vicente Mandujano MD LAB BLOOD OR DERABLES Edited Result - Final Performing Organization Address City/[facility] Co de Phone Number [facility] Department [place] [address] * (ABNORMAL) CBC without differential (11/28/2024 12:27 AM CDT) WBC 0.0(C) 3.8 - 9.9 K/cumm Comment:Consistent with prev ious reported value Hgb 7.4(L) 11.9 - 15.5 g/dL [facility] Hct 20.3(L) 35.6 - 45.5 % [facility] Plt 18(C) 150 - 400 K/cumm [facility] Comment:Platelet count confi rmed by additional testing. Critical platelet count threshold determined by patient location: Outpatient:<50 K-cumm , Inpatient:<20 K-cumm , BMT service:<10 K-cumm MPV 10.9 9.1 - 12.3 fL [facility] RBC 2.47(L) 3.90 - 5.20 M/cumm [facility] MCV 82.2 81.3 - 96.4 fL [facility] MCH 30.0 27.1 - 33.3 pg [facility] MCHC 36.5(H) 32.3 - 35.7 g/dL [facility] RDW CV 14.8 11.1 - 14.9 % [facility] RDW SD 44.6 35.7 - 48.1 fL [facility] NRBC abs 0.00 0.00 - 0.01 K/cumm [facility] Blood 11/28/2024 12:2 7 AM CDT 11/28/2024 12:55 AM CDT Vicente Mandujano MD LAB BLOOD OR DERABLES Final Result [facility] Department [place] [address] * Phosphorus (11/28/2024 12:27 AM CDT) Pathologist [facility] [place] Phosphorus, pl 2.4 2.3 - 4.5 mg/dL Blood 11/28/2024 12:2 7 AM CDT 11/28/2024 12:55 AM CDT Vicente Mandujano MD LAB BLOOD OR DERABLES Final Result [facility] Department [place] [address] * Magnesium (11/28/2024 12:27 AM CDT) Pathologist [facility] [place] Magnesium 2.1 1.4 - 2.5 mg/dL Blood 11/28/2024 12:2 7 AM CDT 11/28/2024 12:55 AM CDT Faheem Mcdaniels MD LAB BLOOD ORDERABLES Final R esult [facility] Department [place] [address] * (ABNORMAL) Basic metabolic panel (11/28/2024 12:27 AM CDT) [facility] Sodium 139 135 - 145 mmol/L Potassium, pl 3.6 3.3 - 4.9 mmol/L [facility] Chloride 103 97 - 110 mmol/L [facility] CO2 28 22 - 32 mmol/L [facility] Anion gap 8 2 - 15 mmol/L [facility] BUN 5(L) 6 - 25 mg/dL [facility] Creatinine 0.57(L) 0.60 - 1.10 mg/dL [facility] Glucose 114 70 - 199 mg/dL [facility] Comment: Interpretive Data Fasting glucose >/= 126 mg/dl is diagnostic for diabetes. Fasting is defined as no caloric intake for at least 8 hours. Fasting glucose between 100 mg/dl to 125 mg/dl is diagnostic of prediabetes. In a patient with classic symptoms of hyperglycemia or hyperglycemic crisis, a random glucose >/= 200 mg/dl is diagnostic for diabetes. In the absence of unequivocal hyperglycemia, results should be confirmed by repeat testing. The classification and Diagnosis of Diabetes Diabetes Care 202; 46: S19-S40. Current interpretive data was last revised 2022. Calcium 8.0(L) 8.5 - 10.3 mg/dL [facility] Blood 11/28/2024 12:2 7 AM CDT 11/28/2024 12:55 AM CDT Narrative [facility] - 11/28/2024 1:23 AM CDT Daily except Saturday and . Morning draw. Vicente Mandujano MD LAB BLOOD OR DERABLES Final Result [facility] Department [place] [address] * Blood culture Blood Peripheral (11/27/2024 9:07 PM CDT) Report Final Report: No growth Blood (Peripheral) 11/27/2024 9:07 PM CDT 11/27/2024 9:48 PM CDT Narrative [facility] - 12/02/2024 7:00 AM CDT Collection->Peripheral 1. Blood cultures are incubated for 4 days on a continuously monitored blood culture system. The first report of a negative culture is issued within 24 hours of receipt of the specimen in the laboratory. 2. Positive culture results are reported as soon as they are detected. 3. The most important factor for detection of microbes in the setting of bloodstream infection is the volume of blood submitted for culture. Failure to collect an optimal blood volume can result in false negative blood cultures. 4. For pediatric patients, the recommended blood volume to collect follows a weight based strategy. See the electronic test catalog for collection instructions. 5. For positive blood cultures, a rapid molecular test may be performed for organism identification using the rosemary ePlex blood culture identification panel for gram positive (BCID-GP) and gram negative (BCID-GN) organisms. This nucleic acid amplification test detects microbial DNA in positive blood culture broth. This assay has been cleared by the [place] Food and Drug Administration and its performance characteristics have been verified by the [facility] Microbiology Laboratory. For questions about this culture, contact the Microbiology Laboratory at [phone]. Interpretive data was last revised on 24. Vicente Mandujano MD LAB MICROBIOLOGY - GENERAL ORDERABLES Final Result [facility] Department [place] [address] * ECG 12 lead (11/27/2024 3:25 PM CDT) Ventricular Rate EKG/Min 102 BPM [facility] Atrial Rate 102 BPM [facility] [place]-Interval (MSEC) 142 ms [facility] QRS-Interval (MSEC) 76 ms [facility] QT-Interval (MSEC) 410 ms [facility] QTc 534 ms [facility] P [place] 52 degrees [facility] R [place] 38 degrees [facility] T [place] 45 degrees [facility] Diagnosis Sinus tachycardia with occasional Premature ventricular complexes Prolonged QT Abnormal ECG When compared with ECG of 26-NOV-2024 15:53, Premature ventricular complexes are now Present QT has lengthened Confirmed by JANELLE ARREAGA M.D ([id number]) on 11/30/2024 10:25:00 AM [facility] 11/27/2024 3:25 PM CDT 11/30/2024 10:25 AM CDT us Jefferson Hovrath MD ECG ORDERABLES Final Result [facility] * CT Chest Abdomen Pelvis W Contrast (11/27/2024 11:40 AM CDT) Anatomical Region Laterality Modality Body N/A Computed Tomogra phy 11/27/2024 1:09 PM CDT Impressions 11/27/2024 1:50 PM CDT 1. Suprapubic subcutaneous fat stranding with skin thickening tracking from the mons pubis to the left greater than right labia majora may represent cellulitis without drainable fluid collection. Recommend correlation with physical exam. 2. Subtle groundglass opacification in the posterior right lower lobe which is new and may represent an infectious or inflammatory process. 3. Mildly thickened and slightly hyperenhancing appearance of the appendix which is not distended, although this appearance is similar across multiple prior exams dating back to 10/02/2024. This is unlikely to represent acute appendicitis, however correlation with physical exam is recommended. 4. Trace pelvic ascites which is nonspecific. Dictated by: Jeffery Velasco M.D. The radiology attending physician has personally reviewed this study, and had reviewed and/or edited this written report and agrees with it. Electronically signed by: Oneal Fong M.D. 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 TECHNIQUE: Transaxial computed tomographic images of the chest, abdomen and pelvis were obtained with intravenous contrast according to the standard protocol after the uneventful administration of 114 mL Opti-Ray 350 intravenous contrast. COMPARISON: 11/18/2024 FINDINGS: Chest: No subclavicular, axillary, or mediastinal lymphadenopathy. The heart size is normal. No pericardial effusion. No suspicious pulmonary nodule. No pleural effusion or pneumothorax. New patchy ill-defined groundglass in the posterior right lower lobe. Abdomen/Pelvis: No suspicious liver lesion. The gallbladder is normal. The hepatic and portal veins are patent. The spleen, adrenal glands, and pancreas are normal. Small hiatal hernia. The stomach and duodenum are normal. The kidneys enhance symmetrically. No hydronephrosis. Normal urinary bladder. The uterus is present. Trace pelvic free fluid. No intraperitoneal free air. Diverticulosis without diverticulitis. No clonic wall thickening. No bowel obstruction. Mildly thickened and enhancing appendix. No periappendiceal fat stranding. There is subcutaneous fat stranding and skin thickening along the anibal tube is tracking into the left greater than right labia majora. No drainable fluid collection. Normal caliber abdominal aorta. No suspicious osseous lesion. 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 TECHNIQUE: Transaxial computed tomographic images of the chest, abdomen and pelvis were obtained with intravenous contrast according to the standard protocol after the uneventful administration of 114 mL Opti-Ray 350 intravenous contrast. COMPARISON: 11/18/2024 FINDINGS: Chest: No subclavicular, axillary, or mediastinal lymphadenopathy. The heart size is normal. No pericardial effusion. No suspicious pulmonary nodule. No pleural effusion or pneumothorax. New patchy ill-defined groundglass in the posterior right lower lobe. Abdomen/Pelvis: No suspicious liver lesion. The gallbladder is normal. The hepatic and portal veins are patent. The spleen, adrenal glands, and pancreas are normal. Small hiatal hernia. The stomach and duodenum are normal. The kidneys enhance symmetrically. No hydronephrosis. Normal urinary bladder. The uterus is present. Trace pelvic free fluid. No intraperitoneal free air. Diverticulosis without diverticulitis. No clonic wall thickening. No bowel obstruction. Mildly thickened and enhancing appendix. No periappendiceal fat stranding. There is subcutaneous fat stranding and skin thickening along the anibal tube is tracking into the left greater than right labia majora. No drainable fluid collection. Normal caliber abdominal aorta. No suspicious osseous lesion. IMPRESSION: 1. Suprapubic subcutaneous fat stranding with skin thickening tracking from the mons pubis to the left greater than right labia majora may represent cellulitis without drainable fluid collection. Recommend correlation with physical exam. 2. Subtle groundglass opacification in the posterior right lower lobe which is new and may represent an infectious or inflammatory process. 3. Mildly thickened and slightly hyperenhancing appearance of the appendix which is not distended, although this appearance is similar across multiple prior exams dating back to 10/02/2024. This is unlikely to represent acute appendicitis, however correlation with physical exam is recommended. 4. Trace pelvic ascites which is nonspecific. Dictated by: Jeffery Velasco M.D. The radiology attending physician has personally reviewed this study, and had reviewed and/or edited this written report and agrees with it. Electronically signed by: Oneal Fong M.D. Jefferson Horvath MD IMG CT PROCEDURES Final Resu lt * CT Sinus W Contrast (11/27/2024 11:40 AM CDT) Anatomical Region Laterality Modality Head and Neck N/A Computed Tomogra phy 11/27/2024 12:0 3 PM CDT Impressions 11/27/2024 12:11 PM CDT Redemonstrated right nasal polypoid lesion with expansion of the lower right nasolacrimal duct which may represent a polyp. Correlate with nonemergent direct visualization. Dictated by: John Porras MD The radiology attending physician has personally reviewed this study, and had reviewed and/or edited this written report and agrees with it. 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 Polypoid right nasal cavity lesion seen on same-day head CT. They have pseudomonas bacteremia. TECHNIQUE: CT of the paranasal sinuses was performed using the sinus protocol with contrast. Contrast information: 114 mL Optiray-350 IV COMPARISON: None Available. FINDINGS: Frontal and Ethmoid sinuses: Mild mucosal thickening of the frontal and ethmoid sinuses. Frontoethmoidal recesses are patent bilaterally. There is Keros type 2 (depth of 4-7mm) olfactory fossa. There are air cells above the bilateral ethmoidal artery recesses. Right maxillary sinus: Lobulated right maxillary mucosal thickening. Maxillary sinus ostiomeatal complex remains patent, but narrowed on the right, . Left maxillary sinus: Maxillary sinus is well-aerated with mild mucosal. Maxillary sinus ostiomeatal complex remains patent but minimally narrowed on the left. Sphenoid sinuses: Sphenoid sinuses are well aerated without significant mucosal disease, opacification or air-fluid level. Sphenoid sinus ostia are patent bilaterally. Sphenoethmoidal recesses are also patent. The left sphenoid sinus is small, and the right is dominant. The septum extends to the lateral wall. The clinoid processes are not aerated. Nasal septum and turbinates: Nasal septum is in the midline without significant deviation. Visualized turbinates are normal bilaterally. There is a polypoid density in the right nasal canal which measures up to 1.5 x 1.0 x 1.3 cm and appears contiguous with the lower aspect of the right nasolacrimal duct, which is remodelled and mildly dilated. Mastoids and tympanic cavities: Visualized mastoids are well aerated bilaterally. Visualized tympanic cavities are well aerated bilaterally. There are no aggressive osseous lesions. Pterygopalatine fossa and fat surrounding the sinuses are normal bilaterally. Other: The imaged frontal lobes and intracranial vasculature are normal. Imaged orbits are normal. No fracture is seen. 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 Polypoid right nasal cavity lesion seen on same-day head CT. They have pseudomonas bacteremia. TECHNIQUE: CT of the paranasal sinuses was performed using the sinus protocol with contrast. Contrast information: 114 mL Optiray-350 IV COMPARISON: None Available. FINDINGS: Frontal and Ethmoid sinuses: Mild mucosal thickening of the frontal and ethmoid sinuses. Frontoethmoidal recesses are patent bilaterally. There is Keros type 2 (depth of 4-7mm) olfactory fossa. There are air cells above the bilateral ethmoidal artery recesses. Right maxillary sinus: Lobulated right maxillary mucosal thickening. Maxillary sinus ostiomeatal complex remains patent, but narrowed on the right, . Left maxillary sinus: Maxillary sinus is well-aerated with mild mucosal. Maxillary sinus ostiomeatal complex remains patent but minimally narrowed on the left. Sphenoid sinuses: Sphenoid sinuses are well aerated without significant mucosal disease, opacification or air-fluid level. Sphenoid sinus ostia are patent bilaterally. Sphenoethmoidal recesses are also patent. The left sphenoid sinus is small, and the right is dominant. The septum extends to the lateral wall. The clinoid processes are not aerated. Nasal septum and turbinates: Nasal septum is in the midline without significant deviation. Visualized turbinates are normal bilaterally. There is a polypoid density in the right nasal canal which measures up to 1.5 x 1.0 x 1.3 cm and appears contiguous with the lower aspect of the right nasolacrimal duct, which is remodelled and mildly dilated. Mastoids and tympanic cavities: Visualized mastoids are well aerated bilaterally. Visualized tympanic cavities are well aerated bilaterally. There are no aggressive osseous lesions. Pterygopalatine fossa and fat surrounding the sinuses are normal bilaterally. Other: The imaged frontal lobes and intracranial vasculature are normal. Imaged orbits are normal. No fracture is seen. IMPRESSION: Redemonstrated right nasal polypoid lesion with expansion of the lower right nasolacrimal duct which may represent a polyp. Correlate with nonemergent direct visualization. Dictated by: John Porras MD The radiology attending physician has personally reviewed this study, and had reviewed and/or edited this written report and agrees with it. Electronically signed by: Vinay Rome MD Jefferson Horvath MD IM CT PROCEDURES Final Resu lt * CT Head WO Contrast (11/27/2024 7:40 AM CDT) Anatomical Region Laterality Modality Head and Neck N/A Computed Tomogra phy 11/27/2024 7:55 AM CDT Impressions 11/27/2024 7:55 AM CDT 1. No acute intracranial process. 2. Hypodense polypoid-like lesion within the right nasal cavity, slightly extends into the right nasal lacrimal duct. Direct visualization is recommended. Electronically signed by: MD Dolores Martinez 11/27/2024 7:55 AM CDT EXAMINATION: CT head without contrast HISTORY: 59 years-old Female with Fall with head injury. TECHNIQUE: CT of the head was performed with images acquired from skull base to vertex without intravenous contrast. COMPARISON: None Available. FINDINGS: There is no acute intracranial hemorrhage. Ventricles are of normal size and morphology. No mass effect or midline shift is present. The santana-white matter differentiation is normal. 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 The visualized portions of the orbits are normal. The visualized portions of the mastoids are normal. Retention cysts are present within the right maxillary sinus. Minimal mucosal thickening of the left maxillary sinus and bilateral ethmoid air cells. No fractures are identified. Hypodense polypoid lesion within the right nasal cavity, slightly extends into the right nasal lacrimal duct, measuring 15 x 10 mm (series 3, image 2). Focal scalloping of the right frontal calvarial bone, might represent underlying small arachnoid cyst. Procedure Note Gena Christianson MD PhD - 11/27/2024 EXAMINATION: CT head without contrast HISTORY: 59 years-old Female with Fall with head injury. TECHNIQUE: CT of the head was performed with images acquired from skull base to vertex without intravenous contrast. COMPARISON: None Available. FINDINGS: There is no acute intracranial hemorrhage. Ventricles are of normal size and morphology. No mass effect or midline shift is present. The santana-white matter differentiation is normal. 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 The visualized portions of the orbits are normal. The visualized portions of the mastoids are normal. Retention cysts are present within the right maxillary sinus. Minimal mucosal thickening of the left maxillary sinus and bilateral ethmoid air cells. No fractures are identified. Hypodense polypoid lesion within the right nasal cavity, slightly extends into the right nasal lacrimal duct, measuring 15 x 10 mm (series 3, image 2). Focal scalloping of the right frontal calvarial bone, might represent underlying small arachnoid cyst. IMPRESSION: 1. No acute intracranial process. 2. Hypodense polypoid-like lesion within the right nasal cavity, slightly extends into the right nasal lacrimal duct. Direct visualization is recommended. Electronically signed by: Gena Christianson MD Coty Baron MD IMG CT PROCEDURES Rosalva l Result * Transfuse platelets (11/27/2024 4:03 AM CDT) Jefferson Horvath MD BLOOD TRANSFUSION ORDERABLES Final Result Performing Organization Address [facility] de Phone Number [facility] Department [place] [address] * Prepare platelets: 1 Units (11/27/2024 1:49 AM CDT) [facility] Product code [id number] Unit Number [id number] U [facility] Product Blood Type APOS [facility] Dispense Status PRESUMED TRANSFUSED [facility] Blood Venous blood specimen / Unknown 11/27/2024 1:49 AM CDT 11/27/2024 1:48 AM CDT Narrative [facility] - 11/27/2024 4:01 PM CDT Are special requirements needed? (all products are leukoreduced)->Yes Date required:-[id number] Special Req 1:-Irradiated PLT # of Units:-1-Units Reasons:-Stable, non-bleeding, plt < 10 K/cumm} Jefferson Horvath MD BLOOD BANK PRODUCT ORDERABLE S Final Result Performing Organization Address [facility] de Phone Number [facility] [place] [address] * (ABNORMAL) Immature platelet fraction (11/27/2024 12:25 AM CDT) [facility] IPF 1.4(L) 1.6 - 10.1 % Blood 11/27/2024 12:2 5 AM CDT 11/27/2024 12:49 AM CDT Vicente Mandujano MD LAB BLOOD OR DERABLES Final Result Performing Organization Address City/[facility]/ZIP Co de Phone Number [facility] Department [place] [address] * eGFR (11/27/2024 12:25 AM CDT) [facility] eGFR >90 >=60 mL/min/1. 73 m2 Comment: Interpretive Data Reference Interval Normal >/= 90 mL/min/1.73m2 Mildly decreased* 60 - 89 mL/min/1.73m2 Mildly to moderately decreased 45 - 59 mL/min/1.73m2 Moderately to severely decreased 30 - 44 mL/min/1.73m2 Severely decreased 15 - 29 mL/min/1.73m2 Kidney Failure < 15 mL/min/1.73m2 *Relative to young adult level Estimated glomerular filtration rate is determined by the 2020 CKD-EPI equation recommended by the National Kid[employer] (A Unifying Approach to GFR Estimation: Recommendations of the NKF-ASK Task Force on Reassessing the Inclusion of Race in Diagnosing Kidney Disease, JASN 2020). The CKD-EPI equation should not be used for patients with unstable renal function and has not been validated in children and those over 70. Current interpretive data was last reviewed 2021. Blood 11/27/2024 12:2 5 AM CDT 11/27/2024 1:02 AM CDT Vicente Mandujano MD LAB BLOOD OR DERABLES Final Result [facility] Department [place] [address] * (ABNORMAL) Manual Differential (11/27/2024 12:25 AM CDT) [facility] Differential Manual Cells Counted 6 [facility] Neutrophil pct 50.0 % [facility] Comment: Interpretive Data Percent cell count reference ranges are not reported, since discordance with absolute values may lead to misinterpretation of CBC data. Current Interpretive Data was last revised on 2017. Lymphocyte pct 50.0 % [facility] Comment: Interpretive Data Percent cell count reference ranges are not reported, since discordance with absolute values may lead to misinterpretation of CBC data. Current Interpretive Data was last revised on 2017. RBC morphology Present(A) [facility] Anisocytosis Moderate(A ) [facility] Microcytes 8-15/HPF(A ) [facility] Platelet estimate Decreased( A) [facility] Blood 11/27/2024 12:2 5 AM CDT 11/27/2024 12:45 AM CDT Vicente Mandujano MD LAB BLOOD OR DERABLES Edited Result - Final [facility] One [facility] Department [place] [address] * (ABNORMAL) CBC without differential (11/27/2024 12:25 AM CDT) [facility] WBC 0.0(C) 3.8 - 9.9 K/cumm Comment:Consistent with prev ious reported value Hgb 8.1(L) 11.9 - 15.5 g/dL [facility] Hct 22.0(L) 35.6 - 45.5 % [facility] Plt 5(C) 150 - 400 K/cumm [facility] Comment:Carroll Francisco RN. Cri tical result called to and read back by CARROLL FRANCISCO RN on 11 27 2024 at 0136 to Mark Desir. MPV 10.7 9.1 - 12.3 fL [facility] RBC 2.68(L) 3.90 - 5.20 M/cumm [facility] MCV 82.1 81.3 - 96.4 fL [facility] MCH 30.2 27.1 - 33.3 pg [facility] MCHC 36.8(H) 32.3 - 35.7 g/dL [facility] RDW CV 14.8 11.1 - 14.9 % [facility] RDW SD 44.6 35.7 - 48.1 fL [facility] NRBC abs 0.00 0.00 - 0.01 K/cumm [facility] Blood 11/27/2024 12:2 5 AM CDT 11/27/2024 12:45 AM CDT Vicente Mandujano MD LAB BLOOD OR DERABLES Final Result Performing Organization Address City/[facility]/ZIP Co de Phone Number [facility] [place] [address] * (ABNORMAL) Phosphorus (11/27/2024 12:25 AM CDT) Phosphorus, pl 1.6(L) 2.3 - 4.5 mg/dL Blood 11/27/2024 12:2 5 AM CDT 11/27/2024 12:45 AM CDT Vicente Mandujano MD LAB BLOOD OR DERABLES Final Result Performing Organization Address City/[facility] Co de Phone Number [facility] [place] [address] * Magnesium (11/27/2024 12:25 AM CDT) Magnesium 1.4 1.4 - 2.5 mg/dL Blood 11/27/2024 12:2 5 AM CDT 11/27/2024 12:45 AM CDT Katie Hunter MD PhD LAB BLOOD ORDERABLES F inal Result Performing Organization Address City/[facility]/ZIP Co de Phone Number [facility] [place] [address] * (ABNORMAL) Basic metabolic panel (11/27/2024 12:25 AM CDT) Pathologist [facility] [place] Sodium 134(L) 135 - 145 mmol/L Potassium, pl 3.5 3.3 - 4.9 mmol/L [facility] Chloride 99 97 - 110 mmol/L [facility] CO2 24 22 - 32 mmol/L [facility] Anion gap 11 2 - 15 mmol/L [facility] BUN 7 6 - 25 mg/dL [facility] Creatinine 0.60 0.60 - 1.10 mg/dL [facility] Glucose 135 70 - 199 mg/dL [facility] Comment: Interpretive Data Fasting glucose >/= 126 mg/dl is diagnostic for diabetes. Fasting is defined as no caloric intake for at least 8 hours. Fasting glucose between 100 mg/dl to 125 mg/dl is diagnostic of prediabetes. In a patient with classic symptoms of hyperglycemia or hyperglycemic crisis, a random glucose >/= 200 mg/dl is diagnostic for diabetes. In the absence of unequivocal hyperglycemia, results should be confirmed by repeat testing. The classification and Diagnosis of Diabetes Diabetes Care 202; 46: S19-S40. Current interpretive data was last revised 2022. Calcium 8.8 8.5 - 10.3 mg/dL [facility] Blood 11/27/2024 12:2 5 AM CDT 11/27/2024 12:45 AM CDT Narrative [facility] - 11/27/2024 1:32 AM CDT Daily except Saturday and . Morning draw. Vicente Mandujano MD LAB BLOOD OR DERABLES Final Result [facility] One [facility] Department [place] [address] * Histoplasma Antigen Urine (11/26/2024 5:12 PM CDT) [facility] Histo Ag Ur result None Detected None Detected Histo Ag Ur interp Negative Negative [facility] Comment: Result Interpretation: Reference interval: None Detected Results reported as ng/mL in 0.20 - 20.00 ng/mL range Results above 20.00 ng/mL are reported as 'Positive, Above the Limit of Quantification' Testing Performed by: [facility], [address] [place] [address] [place] [address]. This test was developed and its performance characteristics determined by [facility]. It has not been cleared or approved by the FDA; however, FDA clearance or approval is not currently required for clinical use. The results are not intended to be used as the sole means for clinical diagnosis or patient management decisions. Interpretative data updated 10/31/2020 Urine 11/26/2024 5:12 PM CDT 11/26/2024 6:38 PM CDT Jefferson Horvath MD LAB MICROBIOLOGY - GENERAL O RDERABLES Final Result Performing Organization Address [facility] de Phone Number [facility] [place] [address] * Histoplasma Antibody Blood (11/26/2024 5:12 PM CDT) Histoplasma Ab, yeast CF Negative Negative [facility] Histoplasma Ab, Immunodiffusion Negative Negative [facility] Comment: A negative complement fixation and immunodiffusion (CF/ID) result does not exclude the diagnosis of histoplasmosis. Repeat testing by CF/ID in 1-2 weeks if clinically indicated. Test Performed by: [facility] [id number] [place] [address] Agent: Jesus Fontenot Ph.D.; CLIA# [id number] Blood 11/26/2024 5:12 PM CDT 11/26/2024 8:05 PM CDT Jefferson Horvath MD LAB MICROBIOLOGY - GENERAL O RDERABLES Final Result Performing Organization Address [facility] Co de Phone Number [facility] [place] [address] [facility] * Lactate (11/26/2024 5:12 PM CDT) [facility] Lactate 2.0 0.7 - 2.0 mmol/L Blood 11/26/2024 5:12 PM CDT 11/26/2024 5:32 PM CDT Jefferson Horvath MD LAB BLOOD ORDERABLES Final R esult Performing Organization Address [facility] de Phone Number [facility] Department [place] [address] * Cryptococcal Antigen, Serum Blood (11/26/2024 5:12 PM CDT) [facility] Cryptococcus ag, Serum Negative Negative Comment: The cryptococcal antigen test was performed using the [employer] CrAg Lateral Flow Assay. This assay is FDA cleared for serum and CSF specimens and for the detection of Cryptococcus neoformans and Cryptococcus gattii. If the result is positive, the specimen will be titered and reported from less than 1:5 to greater than or equal to 1:2560. This assay does not distinguish between C. neoformans and C. gattii. Testing hemolyzed serum samples may lead to false negatives. Current interpretive data last revised 2018. Blood 11/26/2024 5:12 PM CDT 11/26/2024 6:56 PM CDT Jefferson Horvath MD LAB MICROBIOLOGY - GENERAL O RDERABLES Final Result Performing Organization Address [facility] de Phone Number [facility] Department [place] [address] * Aspergillus galactomannan antigen Blood (11/26/2024 5:12 PM CDT) [facility] Aspergillus galactomannan Ag <0.500 <0.5 Index [facility] Comment: ADDITIONAL INFORMATION This is a qualitative test and the resulted index value is not indicative of disease severity. Serial testing is recommended for patients at high risk for invasive aspergillosis. This assay was performed using the FDA-cleared [employer] Platelia Aspergillus Galactomannan EIA. Test Performed by: [facility] [address] [place] [address] Agent: Jesus Fontenot Ph.D.; CLIA# [id number] Blood 11/26/2024 5:12 PM CDT 11/26/2024 6:56 PM CDT us Jefferson Horvath MD LAB MICROBIOLOGY - GENERAL O RDERABLES Final Result [facility] One [facility] Department [place] [address] [facility] * Blood culture Blood Peripheral (11/26/2024 5:12 PM CDT) Report Final Report: No growth Blood (Peripheral) 11/26/2024 5:12 PM CDT 11/26/2024 5:26 PM CDT Narrative DAV[facility] GARCÍA - 12/01/2024 7:00 AM CDT Collection->Peripheral 1. Blood cultures are incubated for 4 days on a continuously monitored blood culture system. The first report of a negative culture is issued within 24 hours of receipt of the specimen in the laboratory. 2. Positive culture results are reported as soon as they are detected. 3. The most important factor for detection of microbes in the setting of bloodstream infection is the volume of blood submitted for culture. Failure to collect an optimal blood volume can result in false negative blood cultures. 4. For pediatric patients, the recommended blood volume to collect follows a weight based strategy. See the electronic test catalog for collection instructions. 5. For positive blood cultures, a rapid molecular test may be performed for organism identification using the rosemary ePlex blood culture identification panel for gram positive (BCID-GP) and gram negative (BCID-GN) organisms. This nucleic acid amplification test detects microbial DNA in positive blood culture broth. This assay has been cleared by the [place] Food and Drug Administration and its performance characteristics have been verified by the [facility] Microbiology Laboratory. For questions about this culture, contact the Microbiology Laboratory at [phone]. Interpretive data was last revised on 24. Vicente Mandujano MD LAB MICROBIOLOGY - GENERAL ORDERABLES Final Result Performing Organization Address City/[facility] Co de Phone Number [facility] Department [place] [address] * ECG 12 lead (11/26/2024 3:53 PM CDT) Pathologist [facility] [place] Ventricular Rate EKG/Min 101 BPM [facility] Atrial Rate 101 BPM [facility] [place]-Interval (MSEC) 132 ms [facility] QRS-Interval (MSEC) 84 ms [facility] QT-Interval (MSEC) 344 ms [facility] QTc 446 ms [facility] P [place] 31 degrees [facility] R [place] 63 degrees [facility] T [place] 62 degrees [facility] Diagnosis Sinus tachycardia Otherwise normal ECG When compared with ECG of 25-NOV-2024 09:05, No significant change was found Confirmed by Miguel May MD ([id number]) on 11/27/2024 1:27:15 PM [facility] 11/26/2024 3:53 PM CDT 11/27/2024 1:27 PM CDT Jefferson Horvath MD ECG ORDERABLES Final Result Performing Organization Address [facility] Co de Phone Number [facility] * (ABNORMAL) Immature platelet fraction (11/26/2024 12:26 AM CDT) Pathologist [facility] [place] IPF 1.4(L) 1.6 - 10.1 % Blood 11/26/2024 12:2 6 AM CDT 11/26/2024 1:16 AM CDT Vicente Mandujano MD LAB BLOOD OR DERABLES Final Result Performing Organization Address [facility] Co de Phone Number [facility] Department [place] [address] * eGFR (11/26/2024 12:26 AM CDT) eGFR >90 >=60 mL/min/1. 73 m2 Comment: Interpretive Data Reference Interval Normal >/= 90 mL/min/1.73m2 Mildly decreased* 60 - 89 mL/min/1.73m2 Mildly to moderately decreased 45 - 59 mL/min/1.73m2 Moderately to severely decreased 30 - 44 mL/min/1.73m2 Severely decreased 15 - 29 mL/min/1.73m2 Kidney Failure < 15 mL/min/1.73m2 *Relative to young adult level Estimated glomerular filtration rate is determined by the 2020 CKD-EPI equation recommended by the National Kidney Foundation (A Unifying Approach to GFR Estimation: Recommendations of the NKF-ASK Task Force on Reassessing the Inclusion of Race in Diagnosing Kidney Disease, JASN 2020). The CKD-EPI equation should not be used for patients with unstable renal function and has not been validated in children and those over 70. Current interpretive data was last reviewed 2021. Blood 11/26/2024 12:2 6 AM CDT 11/26/2024 1:05 AM CDT Vicente Mandujano MD LAB BLOOD OR DERABLES Final Result [facility] One [facility] Department [place] [address] * (ABNORMAL) Manual Differential (11/26/2024 12:26 AM CDT) Differential Manual Cells Counted 7 DAVID GARCÍA Neutrophil pct 0.0 % DAV[facility] GARCÍA Comment: Interpretive Data Percent cell count reference ranges are not reported, since discordance with absolute values may lead to misinterpretation of CBC data. Current Interpretive Data was last revised on 2017. Lymphocyte pct 100.0 % [facility] Comment: Interpretive Data Percent cell count reference ranges are not reported, since discordance with absolute values may lead to misinterpretation of CBC data. Current Interpretive Data was last revised on 2017. RBC morphology Present(A) [facility] Anisocytosis Slight(A) [facility] Poikilocytosis Slight(A) [facility] Microcytes 3-7/HPF(A) [facility] Elliptocytes 3-7/HPF(A) [facility] Platelet estimate Decreased( A) [facility] Blood 11/26/2024 12:2 6 AM CDT 11/26/2024 1:06 AM CDT us Vicente Mandujano MD LAB BLOOD OR DERABLES Edited Result - Final [facility] One [facility] Department [place] [address] * (ABNORMAL) CBC without differential (11/26/2024 12:26 AM CDT) WBC 0.0(C) 3.8 - 9.9 K/cumm Comment:Consistent with prev ious reported value Hgb 9.3(L) 11.9 - 15.5 g/dL [facility] Hct 25.5(L) 35.6 - 45.5 % [facility] Plt 12(C) 150 - 400 K/cumm [facility] Comment:No clot detected in sample. Platelet count confirmed by additional testing. Critical platelet count threshold determined by patient location: Outpatient:<50 K-cumm , Inpatient:<20 K-cumm , BMT service:<10 K-cumm MPV 13.0(H) 9.1 - 12.3 fL [facility] RBC 3.04(L) 3.90 - 5.20 M/cumm [facility] MCV 83.9 81.3 - 96.4 fL [facility] MCH 30.6 27.1 - 33.3 pg [facility] MCHC 36.5(H) 32.3 - 35.7 g/dL [facility] RDW CV 15.3(H) 11.1 - 14.9 % [facility] RDW SD 46.9 35.7 - 48.1 fL [facility] NRBC abs 0.00 0.00 - 0.01 K/cumm [facility] Blood 11/26/2024 12:2 6 AM CDT 11/26/2024 1:06 AM CDT Vicente Mandujano MD LAB BLOOD OR DERABLES Final Result Performing Organization Address City/[facility]/ZIP Co de Phone Number [facility] Department [place] [address] * Type and screen (11/26/2024 12:26 AM CDT) Bing, indirect Negative ABO Rh A Positive [facility] Blood 11/26/2024 12:2 6 AM CDT 11/26/2024 1:13 AM CDT Narrative [facility] - 11/26/2024 2:21 AM CDT Has the patient had Daratumumab or Isatuximab in the past 6 months?->Unknown Vicente Mandujano MD LAB BLOOD BA NK TEST ORDERABLES Final Result Performing Organization Address [facility] Co de Phone Number [facility] Department [place] [address] * (ABNORMAL) Uric acid (11/26/2024 12:26 AM CDT) Uric acid 1.5(L) 2.5 - 7.0 mg/dL Blood 11/26/2024 12:2 6 AM CDT 11/26/2024 1:05 AM CDT Narrative [facility] - 11/26/2024 1:42 AM CDT Saturday and only. Morning draw. . Vicente Mandujano MD LAB BLOOD OR DERABLES Final Result Performing Organization Address City/[facility] Co de Phone Number [facility] Department [place] [address] * Phosphorus (11/26/2024 12:26 AM CDT) Phosphorus, pl 2.9 2.3 - 4.5 mg/dL Blood 11/26/2024 12:2 6 AM CDT 11/26/2024 1:05 AM CDT Vicente Manduajno MD LAB BLOOD OR DERABLES Final Result [facility] One [facility] Department [place] [address] * (ABNORMAL) Comprehensive metabolic panel (11/26/2024 12:26 AM CDT) Sodium 133(L) 135 - 145 mmol/L Potassium, pl 4.6 3.3 - 4.9 mmol/L [facility] Comment:Hemolyzed; Potassium value may be falsely elevated by as much as 0.6-1.0 mmol/L. Suggest redraw and reanalysis. Chloride 98 97 - 110 mmol/L [facility] CO2 26 22 - 32 mmol/L [facility] Anion gap 9 2 - 15 mmol/L [facility] BUN 8 6 - 25 mg/dL [facility] Creatinine 0.69 0.60 - 1.10 mg/dL [facility] Glucose 113 70 - 199 mg/dL [facility] Comment: Interpretive Data Fasting glucose >/= 126 mg/dl is diagnostic for diabetes. Fasting is defined as no caloric intake for at least 8 hours. Fasting glucose between 100 mg/dl to 125 mg/dl is diagnostic of prediabetes. In a patient with classic symptoms of hyperglycemia or hyperglycemic crisis, a random glucose >/= 200 mg/dl is diagnostic for diabetes. In the absence of unequivocal hyperglycemia, results should be confirmed by repeat testing. The classification and Diagnosis of Diabetes Diabetes Care 202; 46: S19-S40. Current interpretive data was last revised 2022. Calcium 9.3 8.5 - 10.3 mg/dL [facility] Bilirubin, total 0.8 0.1 - 1.2 mg/dL [facility] Protein, pl 7.3 6.5 - 8.5 g/dL [facility] Albumin 3.4(L) 3.5 - 5.0 g/dL [facility] Alk phos 122 40 - 130 Units/L [facility] ALT 24 7 - 45 Units/L [facility] AST 42 10 - 45 Units/L [facility] Comment:Hemolyzed; result ma y be falsely elevated Blood 11/26/2024 12:2 6 AM CDT 11/26/2024 1:05 AM CDT Narrative [facility] - 11/26/2024 1:42 AM CDT Saturday and only. Morning draw. Vicente Mandujano MD LAB BLOOD OR DERABLES Final Result [facility] One [facility] Department [place] [address] * (ABNORMAL) Urinalysis reflex to microscopic and culture Urine (11/25/2024 6:52 PM CDT) Color, ur Yellow Yellow Clarity, ur Cloudy(A) Clear [facility] Specific gravity, ur 1.025 1.003 - 1.030 [facility] pH, urine 7.5 [facility] Comment: Interpretive Data U rine pH is affected by diet, medications, systemic acid-base disturbances, and renal tubular function. pH may affect urinary stone formation. For example, urine pH below 6.0 may help reduce the tendency for calcium phosphate stones and pH greater than 6.0 may reduce the tendency for uric acid stone formation. Source: [facility] Current Interpretive Data was last revised on 2017 Protein, ur ql 1+(A) Negative [facility] Glucose, ur ql Negative Negative [facility] Ketones, ur Negative Negative [facility] Bilirubin, ur Negative Negative [facility] Blood, ur 2+(A) Negative [facility] Urobilinogen, ur <2.0 <2.0 mg/dL [facility] Nitrite, ur Negative Negative [facility] Leukocyte esterase, ur Negative Negative [facility] UA reflex comment Reflex to microscopic UA will be performed. [facility] Urine 11/25/2024 6:52 PM CDT 11/25/2024 6:58 PM CDT hCeo Boudreaux MD LAB MICROBIOLOGY - GENERAL ORD ERABLES Final Result Performing Organization Address [facility] [place] [address] * (ABNORMAL) Urinalysis, microscopic only (11/25/2024 6:52 PM CDT) WBC, ur 0-5 0 - 5 /HPF RBC, ur 21-50(A) 0 - 2 /HPF [facility] Epithelial cells, squamous, ur 1-5 0 - 5 /HPF [facility] Mucous, ur Present(A) [facility] Amorphous crystals, ur 1+(A) [facility] Culture Reflex Comment Reflex to urine culture will be performed. [facility] Urine 11/25/2024 6:52 PM CDT 11/25/2024 6:58 PM CDT Cheo Boudreaux MD LAB URINE ORDERABLES Final Res ult Performing Organization Address [facility] de Phone Number [facility] [place] [address] * Urine culture Urine (11/25/2024 6:52 PM CDT) Report Final Report: No growth Urine 11/25/2024 6:52 PM CDT 11/25/2024 7:55 PM CDT Narrative [facility] - 11/26/2024 9:28 PM CDT Urine culture reflexed based upon urinalysis results. Testing performed by [facility]biology [facility] ([phone]) Cheo Boudreaux MD LAB MICROBIOLOGY - GENERAL ORD ERABLES Final Result [facility] One [facility] Department [place] [address] * XR Chest 1 View (11/25/2024 5:48 PM CDT) Anatomical Region Laterality Modality Body, Chest N/A Computed Radiogr aphy 11/25/2024 5:52 PM CDT Impressions 11/25/2024 5:52 PM CDT Comparison exam is dated 11/14/2024. Since the prior examination, the right internal jugular central catheter has been removed. There is no pneumothorax. Lungs are well-expanded and clear. Calcified granulomas in the left suprahilar region. The heart is unchanged. Electronically signed by: Bhaskar Velazquez M.D. Narrative 11/25/2024 5:52 PM CDT EXAMINATION: 1 view chest radiograph Procedure Note Bhaskar Velazquez MD - 11/25/2024 EXAMINATION: 1 view chest radiograph IMPRESSION: Comparison exam is dated 11/14/2024. Since the prior examination, the right internal jugular central catheter has been removed. There is no pneumothorax. Lungs are well-expanded and clear. Calcified granulomas in the left suprahilar region. The heart is unchanged. Electronically signed by: Bhaskar Velazquez M.D. Cheo Boudreaux MD IMG XR PROCEDURES Final Result * Respiratory pathogen panel Nasopharyngeal (11/25/2024 5:41 PM CDT) Influenza A RNA Not Detected Not Detected Influenza B RNA Not Detected Not Detected [facility] RSV RNA Not Detected Not Detected [facility] COVID-19 RNA Not Detected Not Detected [facility] Coronavirus 229E RNA Not Detected Not Detected [facility] Coronavirus HKU1 RNA Not Detected Not Detected [facility] Coronavirus NL63 RNA Not Detected Not Detected [facility] Coronavirus OC43 RNA Not Detected Not Detected [facility] Adenovirus DNA Not Detected Not Detected [facility] Metapneumovirus RNA Not Detected Not Detected [facility] Rhinovirus/Enterov irus RNA Not Detected Not Detected [facility] Parainfluenza 1 RNA Not Detected Not Detected [facility] Parainfluenza 2 RNA Not Detected Not Detected [facility] Parainfluenza 3 RNA Not Detected Not Detected [facility] Parainfluenza 4 RNA Not Detected Not Detected [facility] B. pertussis DNA Not Detected Not Detected [facility] B. parapertussis DNA Not Detected Not Detected [facility] C. pneumoniae DNA Not Detected Not Detected [facility] M. pneumoniae DNA Not Detected Not Detected [facility] Nasopharyngeal 11/25/2024 5: 41 PM CDT 11/25/2024 5:55 PM CDT Narrative [facility] - 11/25/2024 7:02 PM CDT Is the Patient experiencing symptoms consistent with COVID?->No Surveillance testing for transplant patient?->No Interpretive Data The [employer] FilmArray Respiratory Panel (RP2.1) assay is a multiplexed real-time PCR based nucleic acid test capable of simultaneous qualitative detection and identification of multiple respiratory viral and bacterial nucleic acids, including SARS Coronavirus 2 (the causative agent of COVID-19). The following bacteria, viruses and virus subtypes can be identified using the FilmArray RP2.1 assay: Bordetella pertussis, Bordetella parapertussis, Chlamydia pneumoniae, Mycoplasma pneumoniae, Adenovirus, SARS Coronavirus 2, seasonal coronaviruses (Coronavirus HKU1, Coronavirus NL63, Coronavirus 229E, and Coronavirus OC43), Influenza A, Influenza A subtype H1, Influenza A subtype H3, Influenza A subtype 2009 H1, Influenza B, Metapneumovirus, Parainfluenza 1, Parainfluenza 2, Parainfluenza 3, Parainfluenza 4, RSV, Rhinovirus/Enterovirus. Due to the genetic similarity between human Rhinovirus and Enterovirus, the FilmArray RP2.1 assay cannot reliably differentiate them. Coronavirus OC43 may cross-react with some isolates of Coronavirus HKU1. A dual positive result may be due to cross-reactivity or may indicate a co- infection. The detection and identification of specific viral and bacterial nucleic acids from individuals exhibiting signs and symptoms of a respiratory infection aids in the diagnosis of respiratory infection if used in conjunction with other clinical and epidemiological information. The results of this test should not be used as the sole basis for diagnosis, treatment, or other management decisions. Negative results in the setting of a respiratory illness may be due to infection with pathogens that are not detected by this test. Positive results do not rule out infection/co-infection with other organisms. The agent(s) detected by the FilmArray RP2.1 may not be the definite cause of disease. Additional testing (lab, imaging, etc.) may be necessary when evaluating a patient with possible respiratory tract infection. The FilmArray RP2.1 assay has FDA clearance for testing of FOOD WRITER swabs. The performance of additional specimen types has been assessed by the performing laboratory. The performance characteristics of this assay have been determined by [facility]. Current interpretive data was last revised on 22. Cheo Boudreaux MD LAB MICROBIOLOGY - GENERAL ORD ERABLES Final Result [facility] Department [place] [address] * Blood culture Blood (11/25/2024 5:41 PM CDT) Report Final Report: No growth Blood 11/25/2024 5:41 PM CDT 11/25/2024 5:53 PM CDT [facility] - 11/30/2024 7:00 AM CDT From a different site than #1. Collection->Peripheral 1. Blood cultures are incubated for 4 days on a continuously monitored blood culture system. The first report of a negative culture is issued within 24 hours of receipt of the specimen in the laboratory. 2. Positive culture results are reported as soon as they are detected. 3. The most important factor for detection of microbes in the setting of bloodstream infection is the volume of blood submitted for culture. Failure to collect an optimal blood volume can result in false negative blood cultures. 4. For pediatric patients, the recommended blood volume to collect follows a weight based strategy. See the electronic test catalog for collection instructions. 5. For positive blood cultures, a rapid molecular test may be performed for organism identification using the rosemary ePlex blood culture identification panel for gram positive (BCID-GP) and gram negative (BCID-GN) organisms. This nucleic acid amplification test detects microbial DNA in positive blood culture broth. This assay has been cleared by the [place] Food and Drug Administration and its performance characteristics have been verified by the [facility] Microbiology Laboratory. For questions about this culture, contact the Microbiology Laboratory at [phone]. Interpretive data was last revised on 24. Jefferson Horvath MD LAB MICROBIOLOGY - GENERAL O RDERABLES Final Result Performing Organization Address City/[facility]/ZIP Co de Phone Number [facility] Department [place] [address] * Lactate (11/25/2024 5:32 PM CDT) Lactate 1.3 0.7 - 2.0 mmol/L Blood 11/25/2024 5:32 PM CDT 11/25/2024 6:10 PM CDT Cheo Boudreaux MD LAB BLOOD ORDERABLES Final Res ult Performing Organization Address City/[facility]/ZIP Co de Phone Number [facility] [place] [address] * Blood culture Blood (11/25/2024 5:32 PM CDT) Report Final Report: No growth Blood 11/25/2024 5:32 PM CDT 11/25/2024 5:53 PM CDT Narrative [facility] - 11/30/2024 7:00 AM CDT Collection->Peripheral 1. Blood cultures are incubated for 4 days on a continuously monitored blood culture system. The first report of a negative culture is issued within 24 hours of receipt of the specimen in the laboratory. 2. Positive culture results are reported as soon as they are detected. 3. The most important factor for detection of microbes in the setting of bloodstream infection is the volume of blood submitted for culture. Failure to collect an optimal blood volume can result in false negative blood cultures. 4. For pediatric patients, the recommended blood volume to collect follows a weight based strategy. See the electronic test catalog for collection instructions. 5. For positive blood cultures, a rapid molecular test may be performed for organism identification using the rosemary ePlex blood culture identification panel for gram positive (BCID-GP) and gram negative (BCID-GN) organisms. This nucleic acid amplification test detects microbial DNA in positive blood culture broth. This assay has been cleared by the [place] Food and Drug Administration and its performance characteristics have been verified by the [facility] Microbiology Laboratory. For questions about this culture, contact the Microbiology Laboratory at [phone]. Interpretive data was last revised on 24. us Jefferson Horvath MD LAB MICROBIOLOGY - GENERAL O RDERABLES Final Result Performing Organization Address [facility] Co de Phone Number [facility] Department [place] [address] * Creatine kinase (CK), total (11/25/2024 5:32 PM CDT) CK 49 30 - 200 Units/L Blood 11/25/2024 5:32 PM CDT 11/25/2024 6:11 PM CDT Cheo Boudreaux MD LAB BLOOD ORDERABLES Final Res ult Performing Organization Address [facility] Co de Phone Number [facility] Department [place] [address] * ECG 12 lead (11/25/2024 9:05 AM CDT) Ventricular Rate EKG/Min 95 BPM [facility] Atrial Rate 95 BPM [facility] AZ-Interval (MSEC) 144 ms [facility] QRS-Interval (MSEC) 82 ms [facility] QT-Interval (MSEC) 370 ms [facility] QTc 464 ms [facility] P [place] 78 degrees [facility] R [place] 53 degrees [facility] T [place] 43 degrees [facility] Diagnosis Normal sinus rhythm Normal ECG When compared with ECG of 24-NOV-2024 09:40, No significant change was found Confirmed by ASH SALGUERO M.D ([id number]) on 11/26/2024 2:40:28 PM [facility] 11/25/2024 9:05 AM CDT 11/26/2024 2:40 PM CDT Jefferson Horvath MD ECG ORDERABLES Final Result Performing Organization Address [facility] de Phone Number [facility] * Transfuse RBC (11/25/2024 6:20 AM CDT) Blood Jefferson Horvath MD BLOOD TRANSFUSION ORDERABLES Edited Result - Final Performing Organization Address [facility] de Phone Number [facility] Department [place] [address] * (ABNORMAL) Immature platelet fraction (11/25/2024 12:53 AM CDT) Pathologist [facility] IPF 0.8(L) 1.6 - 10.1 % Blood 11/25/2024 12:5 3 AM CDT 11/25/2024 1:10 AM CDT Vicente Mandujano MD LAB BLOOD OR DERABLES Final Result Performing Organization Address [facility] de Phone Number [facility] Department [place] [address] * eGFR (11/25/2024 12:53 AM CDT) Pathologist [facility] eGFR >90 >=60 mL/min/1. 73 m2 Comment: Interpretive Data Reference Interval Normal >/= 90 mL/min/1.73m2 Mildly decreased* 60 - 89 mL/min/1.73m2 Mildly to moderately decreased 45 - 59 mL/min/1.73m2 Moderately to severely decreased 30 - 44 mL/min/1.73m2 Severely decreased 15 - 29 mL/min/1.73m2 Kidney Failure < 15 mL/min/1.73m2 *Relative to young adult level Estimated glomerular filtration rate is determined by the 2020 CKD-EPI equation recommended by the National Kidney Foundation (A Unifying Approach to GFR Estimation: Recommendations of the NKF-ASK Task Force on Reassessing the Inclusion of Race in Diagnosing Kidney Disease, JASN 2020). The CKD-EPI equation should not be used for patients with unstable renal function and has not been validated in children and those over 70. Current interpretive data was last reviewed 2021. Blood 11/25/2024 12:5 3 AM CDT 11/25/2024 1:07 AM CDT Vicente Mandujano MD LAB BLOOD OR DERABLES Final Result [facility] Department [place] [address] * (ABNORMAL) Manual Differential (11/25/2024 12:53 AM CDT) Differential Manual Cells Counted 7 [facility] Neutrophil pct 0.0 % [facility] Comment: Interpretive Data Percent cell count reference ranges are not reported, since discordance with absolute values may lead to misinterpretation of CBC data. Current Interpretive Data was last revised on 2017. Lymphocyte pct 100.0 % [facility] Comment: Interpretive Data Percent cell count reference ranges are not reported, since discordance with absolute values may lead to misinterpretation of CBC data. Current Interpretive Data was last revised on 2017. RBC morphology Present(A) [facility] Anisocytosis Slight(A) [facility] Microcytes 3-7/HPF(A) [facility] Platelet estimate Decreased( A) [facility] Blood 11/25/2024 12:5 3 AM CDT 11/25/2024 1:07 AM CDT Vicente Mandujano MD LAB BLOOD OR DERABLES Edited Result - Final [facility] Department [place] [address] * (ABNORMAL) CBC without differential (11/25/2024 12:53 AM CDT) [facility] WBC 0.0(C) 3.8 - 9.9 K/cumm Comment:Consistent with prev ious reported value Hgb 7.6(L) 11.9 - 15.5 g/dL [facility] Hct 20.8(L) 35.6 - 45.5 % [facility] Plt 24(L) 150 - 400 K/cumm [facility] Comment:Platelet count confi rmed by additional testing. Critical platelet count threshold determined by patient location: Outpatient:<50 K-cumm , Inpatient:<20 K-cumm , BMT service:<10 K-cumm MPV 9.9 9.1 - 12.3 fL [facility] RBC 2.45(L) 3.90 - 5.20 M/cumm [facility] MCV 84.9 81.3 - 96.4 fL [facility] MCH 31.0 27.1 - 33.3 pg [facility] MCHC 36.5(H) 32.3 - 35.7 g/dL [facility] RDW CV 14.8 11.1 - 14.9 % [facility] RDW SD 46.4 35.7 - 48.1 fL [facility] NRBC abs 0.00 0.00 - 0.01 K/cumm [facility] Blood 11/25/2024 12:5 3 AM CDT 11/25/2024 1:07 AM CDT Vicente Mandujano MD LAB BLOOD OR DERABLES Final Result [facility] Department [place] [address] * Phosphorus (11/25/2024 12:53 AM CDT) [facility] Phosphorus, pl 3.4 2.3 - 4.5 mg/dL Blood 11/25/2024 12:5 3 AM CDT 11/25/2024 1:07 AM CDT Vicente Mandujano MD LAB BLOOD OR DERABLES Final Result Performing Organization Address City/[facility]/ZIP Co de Phone Number [facility] Department [place] [address] * Magnesium (11/25/2024 12:53 AM CDT) [facility] Magnesium 1.9 1.4 - 2.5 mg/dL Blood 11/25/2024 12:5 3 AM CDT 11/25/2024 1:07 AM CDT Vicente Mandujano MD LAB BLOOD OR DERABLES Final Result Performing Organization Address City/[facility] Co de Phone Number [facility] [place] [address] * Basic metabolic panel (11/25/2024 12:53 AM CDT) [facility] Sodium 136 135 - 145 mmol/L Potassium, pl 4.1 3.3 - 4.9 mmol/L [facility] Chloride 100 97 - 110 mmol/L [facility] CO2 26 22 - 32 mmol/L [facility] Anion gap 10 2 - 15 mmol/L [facility] BUN 9 6 - 25 mg/dL [facility] Creatinine 0.70 0.60 - 1.10 mg/dL [facility] Glucose 109 70 - 199 mg/dL [facility] Comment: Interpretive Data Fasting glucose >/= 126 mg/dl is diagnostic for diabetes. Fasting is defined as no caloric intake for at least 8 hours. Fasting glucose between 100 mg/dl to 125 mg/dl is diagnostic of prediabetes. In a patient with classic symptoms of hyperglycemia or hyperglycemic crisis, a random glucose >/= 200 mg/dl is diagnostic for diabetes. In the absence of unequivocal hyperglycemia, results should be confirmed by repeat testing. The classification and Diagnosis of Diabetes Diabetes Care 2021; 46: S19-S40. Current interpretive data was last revised 2022. Calcium 9.0 8.5 - 10.3 mg/dL [facility] Blood 11/25/2024 12:5 3 AM CDT 11/25/2024 1:07 AM CDT Narrative [facility] - 11/25/2024 1:36 AM CDT Daily except Saturday and . Morning draw. Vicente Mandujano MD LAB BLOOD OR DERABLES Final Result [facility] Department [place] [address] * ECG 12 lead (11/24/2024 9:40 AM CDT) Pathologist [facility] Ventricular Rate EKG/Min 88 BPM [facility] Atrial Rate 88 BPM [facility] [place]-Interval (MSEC) 138 ms [facility] QRS-Interval (MSEC) 80 ms [facility] QT-Interval (MSEC) 380 ms [facility] QTc 459 ms [facility] P [place] 70 degrees [facility] R [place] 51 degrees [facility] T [place] 45 degrees [facility] Diagnosis Normal sinus rhythm Normal ECG When compared with ECG of 23-NOV-2024 09:22, Premature ventricular complexes are no longer Present Confirmed by JANELLE ARREAGA M.D ([id number]) on 11/25/2024 9:24:16 AM [facility] 11/24/2024 9:40 AM CDT 11/25/2024 9:24 AM CDT Jefferson Horvath MD ECG ORDERABLES Final Result [facility] * Transfuse platelets (11/24/2024 5:25 AM CDT) Jefferson Horvath MD BLOOD TRANSFUSION [place] [address] * Prepare platelets: 1 Units (11/24/2024 1:14 AM CDT) [facility] Product code [id number] Unit Number [id number]- V [facility] Product Blood Type ANEG [facility] Dispense Status PRESUMED TRANSFUSED [facility] Blood Venous blood specimen / Unknown 11/24/2024 1:14 AM CDT 11/24/2024 1:13 AM CDT Narrative [facility] - 11/24/2024 4:01 PM CDT Are special requirements needed? (all products are leukoreduced)->Yes Date required:-[id number] Special Req 1:-Irradiated PLT # of Units:-1-Units Reasons:-Stable, non-bleeding, plt < 10 K/cumm} Jefferson Horvath MD BLOOD BANK PRODUCT ORDERABLE S Final Result Performing Organization Address [facility] de Phone Number [facility] [place] [address] * Prepare RBC: 1 Units (11/24/2024 1:14 AM CDT) [facility] Product code [id number] Unit Number [id number]- J [facility] Product Blood Type APOS [facility] Dispense Status PRESUMED TRANSFUSED [facility] Blood Venous blood specimen / Unknown 11/24/2024 1:14 AM CDT 11/24/2024 1:13 AM CDT N[facility]ative [facility] - 11/25/2024 4:01 PM CDT Are special requirements needed? (All products are leukoreduced and CMV- safe)- >Yes Date required:-[id number] Special Req 1:-Irradiated LRRBC # of [id number] Reasons:-BMT, Hgb <8 g/dL} Jefferson Horvath MD BLOOD BANK PRODUCT ORDERABLE S Final Result [facility] [place] [address] * (ABNORMAL) Immature platelet fraction (11/24/2024 12:27 AM CDT) IPF 0.8(L) 1.6 - 10.1 % Blood 11/24/2024 12:2 7 AM CDT 11/24/2024 12:46 AM CDT Vicente Mandujano MD LAB BLOOD OR DERABLES Final Result Performing Organization Address City/[facility] Co de Phone Number [facility] [place] [address] * eGFR (11/24/2024 12:27 AM CDT) eGFR 88 >=60 mL/min/1. 73 m2 Comment: Interpretive Data Reference Interval Normal >/= 90 mL/min/1.73m2 Mildly decreased* 60 - 89 mL/min/1.73m2 Mildly to moderately decreased 45 - 59 mL/min/1.73m2 Moderately to severely decreased 30 - 44 mL/min/1.73m2 Severely decreased 15 - 29 mL/min/1.73m2 Kidney Failure < 15 mL/min/1.73m2 *Relative to young adult level Estimated glomerular filtration rate is determined by the 2020 CKD-EPI equation recommended by the National Kidney Foundation (A Unifying Approach to GFR Estimation: Recommendations of the NKF-ASK Task Force on Reassessing the Inclusion of Race in Diagnosing Kidney Disease, JASN 2020). The CKD-EPI equation should not be used for patients with unstable renal function and has not been validated in children and those over 70. Current interpretive data was last reviewed 2021. Blood 11/24/2024 12:2 7 AM CDT 11/24/2024 12:43 AM CDT Vicente Mandujano MD LAB BLOOD OR DERABLES Final Result [facility] [place] [address] * (ABNORMAL) Manual Differential (11/24/2024 12:27 AM CDT) Differential Manual Cells Counted 19 [facility] Neutrophil abs 0.0(L) 1.5 - 6.5 K/cumm [facility] Comment:BMT patient, result not critical Imm gran abs 0.0 0.0 - 0.1 K/cumm [facility] Lymphocyte abs 0.1(L) 0.8 - 3.3 K/cumm [facility] Monocyte abs 0.0(L) 0.2 - 0.8 K/cumm [facility] Neutrophil pct 0.0 % [facility] Comment: Interpretive Data Percent cell count reference ranges are not reported, since discordance with absolute values may lead to misinterpretation of CBC data. Current Interpretive Data was last revised on 2017. Lymphocyte pct 100.0 % [facility] Comment: Interpretive Data Percent cell count reference ranges are not reported, since discordance with absolute values may lead to misinterpretation of CBC data. Current Interpretive Data was last revised on 2017. RBC morphology Present(A) [facility] Anisocytosis Slight(A) [facility] Microcytes 3-7/HPF(A) [facility] Platelet estimate Decreased( A) [facility] Blood 11/24/2024 12:2 7 AM CDT 11/24/2024 12:43 AM CDT Vicente Mandujano MD LAB BLOOD OR DERABLES Edited Result - Final [facility] Department [place] [address] * (ABNORMAL) CBC without differential (11/24/2024 12:27 AM CDT) WBC 0.1(C) 3.8 - 9.9 K/cumm Comment:Consistent with prev ious reported value Hgb 8.0(L) 11.9 - 15.5 g/dL [facility] Hct 22.5(L) 35.6 - 45.5 % [facility] Plt 7(C) 150 - 400 K/cumm [facility] Comment:Critical result call ed to and read back by NUZHAT ASHRAF RN on 11 24 2024 at 0113 to Clotilde Caruso. MPV 9.3 9.1 - 12.3 fL [facility] RBC 2.60(L) 3.90 - 5.20 M/cumm [facility] MCV 86.5 81.3 - 96.4 fL [facility] MCH 30.8 27.1 - 33.3 pg [facility] MCHC 35.6 32.3 - 35.7 g/dL [facility] RDW CV 15.1(H) 11.1 - 14.9 % [facility] RDW SD 48.3(H) 35.7 - 48.1 fL [facility] NRBC abs 0.00 0.00 - 0.01 K/cumm [facility] Blood 11/24/2024 12:2 7 AM CDT 11/24/2024 12:43 AM CDT Vicente Mandujano MD LAB BLOOD OR DERABLES Final Result [facility] Department [place] [address] * Phosphorus (11/24/2024 12:27 AM CDT) Phosphorus, pl 3.4 2.3 - 4.5 mg/dL Blood 11/24/2024 12:2 7 AM CDT 11/24/2024 12:43 AM CDT Vicente Mandujano MD LAB BLOOD OR DERABLES Final Result [facility] [place] [address] * Magnesium (11/24/2024 12:27 AM CDT) [facility] Magnesium 1.9 1.4 - 2.5 mg/dL Blood 11/24/2024 12:2 7 AM CDT 11/24/2024 12:43 AM CDT Vicente Mandujano MD LAB BLOOD OR DERABLES Final Result [facility] [place] [address] * Basic metabolic panel (11/24/2024 12:27 AM CDT) [facility] Sodium 139 135 - 145 mmol/L Potassium, pl 4.3 3.3 - 4.9 mmol/L [facility] Chloride 104 97 - 110 mmol/L [facility] CO2 26 22 - 32 mmol/L [facility] Anion gap 9 2 - 15 mmol/L [facility] BUN 10 6 - 25 mg/dL [facility] Creatinine 0.77 0.60 - 1.10 mg/dL [facility] Glucose 99 70 - 199 mg/dL [facility] Comment: Interpretive Data Fasting glucose >/= 126 mg/dl is diagnostic for diabetes. Fasting is defined as no caloric intake for at least 8 hours. Fasting glucose between 100 mg/dl to 125 mg/dl is diagnostic of prediabetes. In a patient with classic symptoms of hyperglycemia or hyperglycemic crisis, a random glucose >/= 200 mg/dl is diagnostic for diabetes. In the absence of unequivocal hyperglycemia, results should be confirmed by repeat testing. The classification and Diagnosis of Diabetes Diabetes Care 2021; 46: S19-S40. Current interpretive data was last revised 2022. Calcium 9.3 8.5 - 10.3 mg/dL [facility] Blood 11/24/2024 12:2 7 AM CDT 11/24/2024 12:43 AM CDT Narrative [facility] - 11/24/2024 1:13 AM CDT Daily except Saturday and . Morning draw. Vicente Mandujano MD LAB BLOOD OR DERABLES Final Result Performing Organization Address City/[facility]/ZIP Co de Phone Number [facility] Department [place] [address] * ECG 12 lead (11/23/2024 9:22 AM CDT) Pathologist [facility] [place] Ventricular Rate EKG/Min 91 BPM [facility] Atrial Rate 91 BPM [facility] [place]-Interval (MSEC) 140 ms [facility] QRS-Interval (MSEC) 80 ms [facility] QT-Interval (MSEC) 386 ms [facility] QTc 474 ms [facility] P [place] 73 degrees [facility] R [place] 51 degrees [facility] T [place] 53 degrees [facility] Diagnosis Sinus rhythm with occasional Premature ventricular complexes Otherwise normal ECG When compared with ECG of 19-NOV-2024 16:18, Premature ventricular complexes are now Present Confirmed by JANELLE ARREAGA M.D ([id number]) on 11/24/2024 10:10:52 AM [facility] 11/23/2024 9:22 AM CDT 11/24/2024 10:10 AM CDT Vicente Mandujano MD ECG ORDERABL ES Final Result Performing Organization Address [facility]/ZIP Co de Phone Number [facility] * (ABNORMAL) Immature platelet fraction (11/23/2024 12:36 AM CDT) Pathologist [facility] [place] IPF 0.8(L) 1.6 - 10.1 % Blood 11/23/2024 12:3 6 AM CDT 11/23/2024 1:50 AM CDT Vicente Mandujano MD LAB BLOOD OR DERABLES Final Result Performing Organization Address City/[facility]/ZIP Co de Phone Number [facility] Department [place] [address] * eGFR (11/23/2024 12:36 AM CDT) Pathologist [facility] [place] eGFR >90 >=60 mL/min/1. 73 m2 Comment: Interpretive Data Reference Interval Normal >/= 90 mL/min/1.73m2 Mildly decreased* 60 - 89 mL/min/1.73m2 Mildly to moderately decreased 45 - 59 mL/min/1.73m2 Moderately to severely decreased 30 - 44 mL/min/1.73m2 Severely decreased 15 - 29 mL/min/1.73m2 Kidney Failure < 15 mL/min/1.73m2 *Relative to young adult level Estimated glomerular filtration rate is determined by the 2020 CKD-EPI equation recommended by the National Kidney Foundation (A Unifying Approach to GFR Estimation: Recommendations of the NKF-ASK Task Force on Reassessing the Inclusion of Race in Diagnosing Kidney Disease, JASN 2020). The CKD-EPI equation should not be used for patients with unstable renal function and has not been validated in children and those over 70. Current interpretive data was last reviewed 2021. Blood 11/23/2024 12:3 6 AM CDT 11/23/2024 1:46 AM CDT Vicente Mandujano MD LAB BLOOD OR DERABLES Final Result [facility] Department [place] [address] * (ABNORMAL) Manual Differential (11/23/2024 12:36 AM CDT) [facility] Differential Manual Cells Counted 12 [facility] Neutrophil abs 0.0(L) 1.5 - 6.5 K/cumm [facility] Comment:BMT patient, result not critical Imm gran abs 0.0 0.0 - 0.1 K/cumm [facility] Lymphocyte abs 0.1(L) 0.8 - 3.3 K/cumm [facility] Monocyte abs 0.0(L) 0.2 - 0.8 K/cumm [facility] Neutrophil pct 0.0 % [facility] Comment: Interpretive Data Percent cell count reference ranges are not reported, since discordance with absolute values may lead to misinterpretation of CBC data. Current Interpretive Data was last revised on 2017. Lymphocyte pct 100.0 % [facility] Comment: Interpretive Data Percent cell count reference ranges are not reported, since discordance with absolute values may lead to misinterpretation of CBC data. Current Interpretive Data was last revised on 2017. RBC morphology Normal [facility] Platelet estimate Decreased( A) [facility] Blood 11/23/2024 12:3 6 AM CDT 11/23/2024 1:46 AM CDT Vicente Mandujano MD LAB BLOOD OR DERABLES Final Result Performing Organization Address [facility] Co de Phone Number [facility] [place] [address] * aPTT (11/23/2024 12:36 AM CDT) aPTT 36 28 - 38 sec Comment: Interpretive Data Heparin therapeutic range: 66.0 - 100.0 seconds. Range based on correlation with therapeutic heparin activity range of 0.3 - 0.7 Units/mL. Current interpretive data was last revised on 2023. Blood 11/23/2024 12:3 6 AM CDT 11/23/2024 1:39 AM CDT Vicente Mandujano MD LAB BLOOD OR DERABLES Final Result Performing Organization Address [facility] Co de Phone Number [facility] [place] [address] * Protime-INR (11/23/2024 12:36 AM CDT) PT 12.7 9.7 - 13.0 sec INR 1.17 0.90 - 1.20 [facility] Comment: Interpretive data Oral anticoagulant therapeutic ranges: Venous thromboembolism prophylaxis or treatment: 2.0-3.0 CARDIOLOGY Standard range: 2.0-3.0 High-intensity range: 2.5-3.5 Refer to indication-specific guidelines for appropriate target ranges for prosthetic heart valve replacement. Current interpretive data was last revised on 2019. Blood 11/23/2024 12:3 6 AM CDT 11/23/2024 1:39 AM CDT Vicente Mandujano MD LAB BLOOD OR DERABLES Final Result [facility] Department [place] [address] * (ABNORMAL) CBC without differential (11/23/2024 12:36 AM CDT) WBC 0.1(C) 3.8 - 9.9 K/cumm Comment:Consistent with prev ious reported value Hgb 8.1(L) 11.9 - 15.5 g/dL [facility] Hct 22.8(L) 35.6 - 45.5 % [facility] Plt 12(C) 150 - 400 K/cumm [facility] Comment:Platelet count confi rmed by additional testing. Critical platelet count threshold determined by patient location: Outpatient:<50 K-cumm , Inpatient:<20 K-cumm , BMT service:<10 K-cumm MPV 10.3 9.1 - 12.3 fL [facility] RBC 2.62(L) 3.90 - 5.20 M/cumm [facility] MCV 87.0 81.3 - 96.4 fL [facility] MCH 30.9 27.1 - 33.3 pg [facility] MCHC 35.5 32.3 - 35.7 g/dL [facility] RDW CV 15.2(H) 11.1 - 14.9 % [facility] RDW SD 48.7(H) 35.7 - 48.1 fL [facility] NRBC abs 0.00 0.00 - 0.01 K/cumm [facility] Blood 11/23/2024 12:3 6 AM CDT 11/23/2024 1:46 AM CDT Vicente aMndujano MD LAB BLOOD OR DERABLES Final Result Performing Organization Address [facility]/[place] [address] * Type and screen (11/23/2024 12:36 AM CDT) Bing, indirect Negative ABO Rh A Positive [facility] Blood 11/23/2024 12:3 6 AM CDT 11/23/2024 1:42 AM CDT Narrative [facility] - 11/23/2024 2:55 AM CDT Has the patient had Daratumumab or Isatuximab in the past 6 months?->Unknown Vicente Mandujano MD LAB BLOOD BA NK TEST ORDERABLES Final Result Performing Organization Address [facility] Co de Phone Number [facility] [place] [address] * (ABNORMAL) Uric acid (11/23/2024 12:36 AM CDT) Uric acid 1.8(L) 2.5 - 7.0 mg/dL Blood 11/23/2024 12:3 6 AM CDT 11/23/2024 1:46 AM CDT Narrative [facility] - 11/23/2024 2:17 AM CDT Saturday and only. Morning draw. . Vicente Mandujano MD LAB BLOOD OR DERABLES Final Result Performing Organization Address [facility]/ZIP Co de Phone Number [facility] [place] [address] * Phosphorus (11/23/2024 12:36 AM CDT) Phosphorus, pl 3.2 2.3 - 4.5 mg/dL Blood 11/23/2024 12:3 6 AM CDT 11/23/2024 1:46 AM CDT Vicente Mandujano MD LAB BLOOD OR DERABLES Final Result [facility] [place] [address] * Magnesium (11/23/2024 12:36 AM CDT) Pathologist [facility] [place] Magnesium 2.0 1.4 - 2.5 mg/dL Blood 11/23/2024 12:3 6 AM CDT 11/23/2024 1:46 AM CDT Vicente Mandujano MD LAB BLOOD OR DERABLES Final Result Performing Organization Address [facility] Co de Phone Number [facility] [place] [address] * Lactate dehydrogenase (LD) (11/23/2024 12:36 AM CDT) Pathologist [facility] [place] Lactate dehydrogenase (LDH) 182 100 - 250 Units/L Blood 11/23/2024 12:3 6 AM CDT 11/23/2024 1:46 AM CDT Narrative [facility] - 11/23/2024 2:17 AM CDT Saturday and only. Morning draw. Vicente Mandujano MD LAB BLOOD OR DERABLES Final Result Performing Organization Address City/[facility] Co de Phone Number [facility] [place] [address] * Comprehensive metabolic panel (11/23/2024 12:36 AM CDT) Sodium 140 135 - 145 mmol/L Potassium, pl 4.4 3.3 - 4.9 mmol/L [facility] Chloride 103 97 - 110 mmol/L [facility] CO2 27 22 - 32 mmol/L [facility] Anion gap 10 2 - 15 mmol/L [facility] BUN 10 6 - 25 mg/dL [facility] Creatinine 0.71 0.60 - 1.10 mg/dL [facility] Glucose 104 70 - 199 mg/dL [facility] Comment: Interpretive Data Fasting glucose >/= 126 mg/dl is diagnostic for diabetes. Fasting is defined as no caloric intake for at least 8 hours. Fasting glucose between 100 mg/dl to 125 mg/dl is diagnostic of prediabetes. In a patient with classic symptoms of hyperglycemia or hyperglycemic crisis, a random glucose >/= 200 mg/dl is diagnostic for diabetes. In the absence of unequivocal hyperglycemia, results should be confirmed by repeat testing. The classification and Diagnosis of Diabetes Diabetes Care 2021; 46: S19-S40. Current interpretive data was last revised 2022. Calcium 9.4 8.5 - 10.3 mg/dL [facility] Bilirubin, total 0.4 0.1 - 1.2 mg/dL [facility] Protein, pl 6.8 6.5 - 8.5 g/dL [facility] Albumin 3.5 3.5 - 5.0 g/dL [facility] Alk phos 119 40 - 130 Units/L [facility] ALT 23 7 - 45 Units/L [facility] AST 19 10 - 45 Units/L [facility] Blood 11/23/2024 12:3 6 AM CDT 11/23/2024 1:46 AM CDT Narrative [facility] - 11/23/2024 2:17 AM CDT Saturday and only. Morning draw. Vicente Mandujano MD LAB BLOOD OR DERABLES Final Result [facility] Department [place] [address] * (ABNORMAL) Immature platelet fraction (11/22/2024 1:02 AM CDT) Pathologist [facility] [place] IPF 0.5(L) 1.6 - 10.1 % Blood 11/22/2024 1:02 AM CDT 11/22/2024 1:30 AM CDT Vicente Mandujano MD LAB BLOOD OR DERABLES Final Result [facility] [place] [address] * eGFR (11/22/2024 1:02 AM CDT) Pathologist [facility] [place] eGFR >90 >=60 mL/min/1. 73 m2 Comment: Interpretive Data Reference Interval Normal >/= 90 mL/min/1.73m2 Mildly decreased* 60 - 89 mL/min/1.73m2 Mildly to moderately decreased 45 - 59 mL/min/1.73m2 Moderately to severely decreased 30 - 44 mL/min/1.73m2 Severely decreased 15 - 29 mL/min/1.73m2 Kidney Failure < 15 mL/min/1.73m2 *Relative to young adult level Estimated glomerular filtration rate is determined by the 2020 CKD-EPI equation recommended by the National Kidney Foundation (A Unifying Approach to GFR Estimation: Recommendations of the NKF-ASK Task Force on Reassessing the Inclusion of Race in Diagnosing Kidney Disease, JASN 2020). The CKD-EPI equation should not be used for patients with unstable renal function and has not been validated in children and those over 70. Current interpretive data was last reviewed 2021. Blood 11/22/2024 1:02 AM CDT 11/22/2024 1:12 AM CDT us Vicente Mandujano MD LAB BLOOD OR DERABLES Final Result [facility] Department [place] [address] * (ABNORMAL) Manual Differential (11/22/2024 1:02 AM CDT) Pathologist [facility] [place] Differential Manual Cells Counted 9 [facility] Neutrophil pct 0.0 % [facility] Comment: Interpretive Data Percent cell count reference ranges are not reported, since discordance with absolute values may lead to misinterpretation of CBC data. Current Interpretive Data was last revised on 2017. Lymphocyte pct 100.0 % [facility] Comment: Interpretive Data Percent cell count reference ranges are not reported, since discordance with absolute values may lead to misinterpretation of CBC data. Current Interpretive Data was last revised on 2017. RBC morphology Normal [facility] Platelet estimate Decreased( A) [facility] Blood 11/22/2024 1:02 AM CDT 11/22/2024 1:29 AM CDT Vicente Mandujano MD LAB BLOOD OR DERABLES Edited Result - Final [facility] Department [place] [address] * (ABNORMAL) CBC without differential (11/22/2024 1:02 AM CDT) [facility] WBC 0.0(C) 3.8 - 9.9 K/cumm Comment:Consistent with prev ious reported value Hgb 8.8(L) 11.9 - 15.5 g/dL [facility] Hct 24.5(L) 35.6 - 45.5 % [facility] Plt 19(C) 150 - 400 K/cumm [facility] Comment:Platelet count confi rmed by additional testing. Critical platelet count threshold determined by patient location: Outpatient:<50 K-cumm , Inpatient:<20 K-cumm , BMT service:<10 K-cumm MPV 10.7 9.1 - 12.3 fL [facility] RBC 2.82(L) 3.90 - 5.20 M/cumm [facility] MCV 86.9 81.3 - 96.4 fL [facility] MCH 31.2 27.1 - 33.3 pg [facility] MCHC 35.9(H) 32.3 - 35.7 g/dL [facility] RDW CV 15.5(H) 11.1 - 14.9 % [facility] RDW SD 49.7(H) 35.7 - 48.1 fL [facility] NRBC abs 0.00 0.00 - 0.01 K/cumm [facility] Blood 11/22/2024 1:02 AM CDT 11/22/2024 1:29 AM CDT Vicente Mandujano MD LAB BLOOD OR DERABLES Final Result Performing Organization Address City/[facility] Co de Phone Number [facility] Department [place] [address] * Phosphorus (11/22/2024 1:02 AM CDT) Phosphorus, pl 3.2 2.3 - 4.5 mg/dL Blood 11/22/2024 1:02 AM CDT 11/22/2024 1:12 AM CDT Vicente Mandujano MD LAB BLOOD OR DERABLES Final Result Performing Organization Address City/[facility] Co de Phone Number [facility] Department [place] [address] * Magnesium (11/22/2024 1:02 AM CDT) Magnesium 1.9 1.4 - 2.5 mg/dL Blood 11/22/2024 1:02 AM CDT 11/22/2024 1:12 AM CDT Vicente Mandujano MD LAB BLOOD OR DERABLES Final Result Performing Organization Address City/[facility] Co de Phone Number [facility] Department [place] [address] * Basic metabolic panel (11/22/2024 1:02 AM CDT) Pathologist [facility] [place] Sodium 143 135 - 145 mmol/L Potassium, pl 4.3 3.3 - 4.9 mmol/L [facility] Chloride 105 97 - 110 mmol/L [facility] CO2 27 22 - 32 mmol/L [facility] Anion gap 11 2 - 15 mmol/L [facility] BUN 9 6 - 25 mg/dL [facility] Creatinine 0.73 0.60 - 1.10 mg/dL [facility] Glucose 105 70 - 199 mg/dL [facility] Comment: Interpretive Data Fasting glucose >/= 126 mg/dl is diagnostic for diabetes. Fasting is defined as no caloric intake for at least 8 hours. Fasting glucose between 100 mg/dl to 125 mg/dl is diagnostic of prediabetes. In a patient with classic symptoms of hyperglycemia or hyperglycemic crisis, a random glucose >/= 200 mg/dl is diagnostic for diabetes. In the absence of unequivocal hyperglycemia, results should be confirmed by repeat testing. The classification and Diagnosis of Diabetes Diabetes Care 2021; 46: S19-S40. Current interpretive data was last revised 2022. Calcium 9.2 8.5 - 10.3 mg/dL [facility] Blood 11/22/2024 1:02 AM CDT 11/22/2024 1:12 AM CDT Narrative [facility] - 11/22/2024 1:40 AM CDT Daily except Saturday and . Morning draw. Vicente Mandujano MD LAB BLOOD OR DERABLES Final Result [facility] Department [place] [address] * (ABNORMAL) Immature platelet fraction (11/21/2024 12:36 AM CDT) [facility] IPF 0.9(L) 1.6 - 10.1 % Blood 11/21/2024 12:3 6 AM CDT 11/21/2024 1:34 AM CDT Vicente Mandujano MD LAB BLOOD OR DERABLES Final Result Performing Organization Address City/[facility]/ZIP Co de Phone Number [facility] Department [place] [address] * eGFR (11/21/2024 12:36 AM CDT) Pathologist [facility] [place] eGFR >90 >=60 mL/min/1. 73 m2 Comment: Interpretive Data Reference Interval Normal >/= 90 mL/min/1.73m2 Mildly decreased* 60 - 89 mL/min/1.73m2 Mildly to moderately decreased 45 - 59 mL/min/1.73m2 Moderately to severely decreased 30 - 44 mL/min/1.73m2 Severely decreased 15 - 29 mL/min/1.73m2 Kidney Failure < 15 mL/min/1.73m2 *Relative to young adult level Estimated glomerular filtration rate is determined by the 2020 CKD-EPI equation recommended by the National Kidney Foundation (A Unifying Approach to GFR Estimation: Recommendations of the NKF-ASK Task Force on Reassessing the Inclusion of Race in Diagnosing Kidney Disease, JASN 2020). The CKD-EPI equation should not be used for patients with unstable renal function and has not been validated in children and those over 70. Current interpretive data was last reviewed 2021. Blood 11/21/2024 12:3 6 AM CDT 11/21/2024 1:31 AM CDT Vicente Mandujano MD LAB BLOOD OR DERABLES Final Result Performing Organization Address City/[facility]/ZIP Co de Phone Number [facility] Department [place] [address] * (ABNORMAL) Manual Differential (11/21/2024 12:36 AM CDT) Pathologist [facility] [place] Differential Manual Cells Counted 9 [facility] Neutrophil abs 0.0(L) 1.5 - 6.5 K/cumm [facility] Comment:BMT patient, result not critical Imm gran abs 0.0 0.0 - 0.1 K/cumm [facility] Lymphocyte abs 0.1(L) 0.8 - 3.3 K/cumm [facility] Monocyte abs 0.0(L) 0.2 - 0.8 K/cumm [facility] Neutrophil pct 0.0 % [facility] Comment: Interpretive Data Percent cell count reference ranges are not reported, since discordance with absolute values may lead to misinterpretation of CBC data. Current Interpretive Data was last revised on 2017. Lymphocyte pct 100.0 % [facility] Comment: Interpretive Data Percent cell count reference ranges are not reported, since discordance with absolute values may lead to misinterpretation of CBC data. Current Interpretive Data was last revised on 2017. RBC morphology Normal [facility] Platelet estimate Decreased( A) [facility] Blood 11/21/2024 12:3 6 AM CDT 11/21/2024 1:31 AM CDT Vicente Mandujano MD LAB BLOOD OR DERABLES Final Result [facility] Department [place] [address] * (ABNORMAL) CBC without differential (11/21/2024 12:36 AM CDT) WBC 0.1(C) 3.8 - 9.9 K/cumm Comment:Consistent with prev ious reported value Hgb 8.2(L) 11.9 - 15.5 g/dL [facility] Hct 23.0(L) 35.6 - 45.5 % [facility] Plt 26(L) 150 - 400 K/cumm [facility] Comment:Platelet count confi rmed by additional testing. Critical platelet count threshold determined by patient location: Outpatient:<50 K-cumm , Inpatient:<20 K-cumm , BMT service:<10 K-cumm MPV 10.6 9.1 - 12.3 fL [facility] RBC 2.60(L) 3.90 - 5.20 M/cumm [facility] MCV 88.5 81.3 - 96.4 fL [facility] MCH 31.5 27.1 - 33.3 pg [facility] MCHC 35.7 32.3 - 35.7 g/dL [facility] RDW CV 15.9(H) 11.1 - 14.9 % [facility] RDW SD 51.4(H) 35.7 - 48.1 fL [facility] NRBC abs 0.00 0.00 - 0.01 K/cumm [facility] Blood 11/21/2024 12:3 6 AM CDT 11/21/2024 1:31 AM CDT Vicente Mandujano MD LAB BLOOD OR DERABLES Final Result Performing Organization Address City/[facility]/ZIP Co de Phone Number [facility] Department [place] [address] * Phosphorus (11/21/2024 12:36 AM CDT) Phosphorus, pl 3.5 2.3 - 4.5 mg/dL Blood 11/21/2024 12:3 6 AM CDT 11/21/2024 1:31 AM CDT Vicente Mandujano MD LAB BLOOD OR DERABLES Final Result [facility] Department [place] [address] * Magnesium (11/21/2024 12:36 AM CDT) Magnesium 2.0 1.4 - 2.5 mg/dL Blood 11/21/2024 12:3 6 AM CDT 11/21/2024 1:31 AM CDT Vicente Mandujano MD LAB BLOOD OR DERABLES Final Result [facility] Department [place] [address] * Basic metabolic panel (11/21/2024 12:36 AM CDT) Sodium 141 135 - 145 mmol/L Potassium, pl 3.9 3.3 - 4.9 mmol/L [facility] Chloride 106 97 - 110 mmol/L [facility] CO2 26 22 - 32 mmol/L [facility] Anion gap 9 2 - 15 mmol/L [facility] BUN 8 6 - 25 mg/dL [facility] Creatinine 0.71 0.60 - 1.10 mg/dL [facility] Glucose 103 70 - 199 mg/dL [facility] Comment: Interpretive Data Fasting glucose >/= 126 mg/dl is diagnostic for diabetes. Fasting is defined as no caloric intake for at least 8 hours. Fasting glucose between 100 mg/dl to 125 mg/dl is diagnostic of prediabetes. In a patient with classic symptoms of hyperglycemia or hyperglycemic crisis, a random glucose >/= 200 mg/dl is diagnostic for diabetes. In the absence of unequivocal hyperglycemia, results should be confirmed by repeat testing. The classification and Diagnosis of Diabetes Diabetes Care 202; 46: S19-S40. Current interpretive data was last revised 2022. Calcium 8.7 8.5 - 10.3 mg/dL [facility] Blood 11/21/2024 12:3 6 AM CDT 11/21/2024 1:31 AM CDT Narrative [facility] - 11/21/2024 2:03 AM CDT Daily except Saturday and . Morning draw. Vicente Mandujano MD LAB BLOOD OR DERABLES Final Result [facility] One [facility] Department [place] [address] * Transfuse platelets (11/20/2024 5:12 AM CDT) Jefferson Horvath MD BLOOD TRANSFUSION ORDERABLES Final Result Performing Organization Address City/[facility]/ZIP Co de Phone Number [facility] [place] [address] * Prepare platelets: 1 Units (11/20/2024 2:11 AM CDT) Pathologist [facility] [place] Product code [id number] Unit Number [id number] [facility] Product Blood Type APOS [facility] Dispense Status PRESUMED TRANSFUSED [facility] Blood Venous blood specimen / Unknown 11/20/2024 2:11 AM CDT 11/20/2024 2:10 AM CDT Narrative [facility] - 11/20/2024 4:01 PM CDT Are special requirements needed? (all products are leukoreduced)->Yes Date required:-[id number] Special Req 1:-Irradiated PLT # of Units:-1-Units Reasons:-Stable, non-bleeding, plt < 10 K/cumm} Jefferson Horvath MD BLOOD BANK PRODUCT ORDERABLE S Final Result Performing Organization Address City/[facility] Co de Phone Number [facility] Department [place] [address] * (ABNORMAL) Immature platelet fraction (11/20/2024 12:28 AM CDT) [facility] IPF 0.1(L) 1.6 - 10.1 % Blood 11/20/2024 12:2 8 AM CDT 11/20/2024 12:55 AM CDT Vicente Mandujano MD LAB BLOOD OR DERABLES Final Result Performing Organization Address City/[facility]/ZIP Co de Phone Number [facility] [place] [address] * eGFR (11/20/2024 12:28 AM CDT) Pathologist [facility] [place] eGFR >90 >=60 mL/min/1. 73 m2 Comment: Interpretive Data Reference Interval Normal >/= 90 mL/min/1.73m2 Mildly decreased* 60 - 89 mL/min/1.73m2 Mildly to moderately decreased 45 - 59 mL/min/1.73m2 Moderately to severely decreased 30 - 44 mL/min/1.73m2 Severely decreased 15 - 29 mL/min/1.73m2 Kidney Failure < 15 mL/min/1.73m2 *Relative to young adult level Estimated glomerular filtration rate is determined by the 2020 CKD-EPI equation recommended by the National Kidney Foundation (A Unifying Approach to GFR Estimation: Recommendations of the NKF-ASK Task Force on Reassessing the Inclusion of Race in Diagnosing Kidney Disease, JASN 2020). The CKD-EPI equation should not be used for patients with unstable renal function and has not been validated in children and those over 70. Current interpretive data was last reviewed 2021. Blood 11/20/2024 12:2 8 AM CDT 11/20/2024 12:51 AM CDT Vicente Mandujano MD LAB BLOOD OR DERABLES Final Result [facility] One [facility] Department [place] [address] * (ABNORMAL) Manual Differential (11/20/2024 12:28 AM CDT) Pathologist [facility] [place] Differential Manual Cells Counted 13 [facility] Neutrophil pct 0.0 % [facility] Comment: Interpretive Data Percent cell count reference ranges are not reported, since discordance with absolute values may lead to misinterpretation of CBC data. Current Interpretive Data was last revised on 2017. Lymphocyte pct 100.0 % [facility] Comment: Interpretive Data Percent cell count reference ranges are not reported, since discordance with absolute values may lead to misinterpretation of CBC data. Current Interpretive Data was last revised on 2017. RBC morphology Normal [facility] Platelet estimate Decreased( A) [facility] Blood 11/20/2024 12:2 8 AM CDT 11/20/2024 12:51 AM CDT Vicente Mandujano MD LAB BLOOD OR DERABLES Final Result [facility] Department [place] [address] * (ABNORMAL) CBC without differential (11/20/2024 12:28 AM CDT) [facility] WBC 0.0(C) 3.8 - 9.9 K/cumm Comment:Consistent with prev ious reported value Hgb 8.5(L) 11.9 - 15.5 g/dL [facility] Hct 24.2(L) 35.6 - 45.5 % [facility] Plt 8(C) 150 - 400 K/cumm [facility] Comment:Godfrey Ko RN. C ritical result called to and read back by GODFREY KO RN on 11 20 2024 at 0133 to Rivka Magallon. MPV 11.5 9.1 - 12.3 fL [facility] RBC 2.76(L) 3.90 - 5.20 M/cumm [facility] MCV 87.7 81.3 - 96.4 fL [facility] MCH 30.8 27.1 - 33.3 pg [facility] MCHC 35.1 32.3 - 35.7 g/dL [facility] RDW CV 15.9(H) 11.1 - 14.9 % [facility] RDW SD 51.2(H) 35.7 - 48.1 fL [facility] NRBC abs 0.00 0.00 - 0.01 K/cumm [facility] Blood 11/20/2024 12:2 8 AM CDT 11/20/2024 12:51 AM CDT Vicente Mandujano MD LAB BLOOD OR DERABLES Final Result [facility] Department [place] [address] * Type and screen (11/20/2024 12:28 AM CDT) Pathologist [facility] [place] Bing, indirect Negative ABO Rh A Positive [facility] Blood 11/20/2024 12:2 8 AM CDT 11/20/2024 12:52 AM CDT Narrative [facility] - 11/20/2024 1:56 AM CDT Has the patient had Daratumumab or Isatuximab in the past 6 months?->Unknown Vicente Mandujano MD LAB BLOOD BA NK TEST ORDERABLES Final Result Performing Organization Address City/[facility]/ZIP Co de Phone Number [facility] [place] [address] * Phosphorus (11/20/2024 12:28 AM CDT) Pathologist [facility] [place] Phosphorus, pl 3.5 2.3 - 4.5 mg/dL Blood 11/20/2024 12:2 8 AM CDT 11/20/2024 12:51 AM CDT Vicente Mandujano MD LAB BLOOD OR DERABLES Final Result [facility] Department [place] [address] * Magnesium (11/20/2024 12:28 AM CDT) [facility] Magnesium 1.9 1.4 - 2.5 mg/dL Blood 11/20/2024 12:2 8 AM CDT 11/20/2024 12:51 AM CDT Vicente Mandujano MD LAB BLOOD OR DERABLES Final Result [facility] Department [place] [address] * Basic metabolic panel (11/20/2024 12:28 AM CDT) [facility] Sodium 144 135 - 145 mmol/L Potassium, pl 3.6 3.3 - 4.9 mmol/L [facility] Chloride 108 97 - 110 mmol/L [facility] CO2 27 22 - 32 mmol/L [facility] Anion gap 9 2 - 15 mmol/L [facility] BUN 8 6 - 25 mg/dL [facility] Creatinine 0.74 0.60 - 1.10 mg/dL [facility] Glucose 109 70 - 199 mg/dL [facility] Comment: Interpretive Data Fasting glucose >/= 126 mg/dl is diagnostic for diabetes. Fasting is defined as no caloric intake for at least 8 hours. Fasting glucose between 100 mg/dl to 125 mg/dl is diagnostic of prediabetes. In a patient with classic symptoms of hyperglycemia or hyperglycemic crisis, a random glucose >/= 200 mg/dl is diagnostic for diabetes. In the absence of unequivocal hyperglycemia, results should be confirmed by repeat testing. The classification and Diagnosis of Diabetes Diabetes Care 2021; 46: S19-S40. Current interpretive data was last revised 2022. Calcium 8.9 8.5 - 10.3 mg/dL [facility] Blood 11/20/2024 12:2 8 AM CDT 11/20/2024 12:51 AM CDT Narrative [facility] - 11/20/2024 1:24 AM CDT Daily except Saturday and . Morning draw. Vicente Mandujano MD LAB BLOOD OR DERABLES Final Result [facility] Department [place] [address] * ECG 12 lead (11/19/2024 4:18 PM CDT) [facility] Ventricular Rate EKG/Min 85 BPM [facility] Atrial Rate 85 BPM [facility] [place]-Interval (MSEC) 140 ms [facility] QRS-Interval (MSEC) 82 ms [facility] QT-Interval (MSEC) 390 ms [facility] QTc 464 ms [facility] P [place] 68 degrees [facility] R [place] 48 degrees [facility] T [place] 51 degrees [facility] Diagnosis Normal sinus rhythm Normal ECG When compared with ECG of 14-NOV-2024 20:18, No significant change was found Confirmed by WALT MAHONEY M.D ([id number]) on 11/22/2024 4:21:02 PM [facility] 11/19/2024 4:18 PM CDT 11/22/2024 4:21 PM CDT us Vicente Mandujano MD ECG ORDERABL ES Final Result [facility] * (ABNORMAL) Aerobic and anaerobic culture and gram stain Wound Groin, left (11/19/2024 1:28 PM CDT) Direct Specimen Exam Stain: No polymorphonuclear leukocytes seen. No organisms seen. Report Final Report: Few Pseudomonas aeruginosa Rare Dee albicans Rare Mixed microorganisms. (.) [facility] Organism PSEUDOMONAS AERUGINOSA [facility] Organism DEE ALBICANS [facility] Organism MIXED MICROORGANISMS. [facility] Wound (Groin, left) 11/19/2024 1:28 PM CDT 11/19/2024 2:05 PM CDT Narrative [facility] - 11/23/2024 3:09 PM CDT Testing performed by [facility] ([phone]) Specimens submitted from normally sterile body sites will have all bacterial morphotypes identified. Specimens that contain grossly mixed kevon and/or are from body sites that are not normally sterile will be examined for Staphylococcus aureus, Pseudomonas aeruginosa, beta-hemolytic strep, vancomycin-resistant Enterococcus, Bacteroides, Parabacteroides, Clostridium perfringens and fungus. If any of these are isolated, the organism will be reported. Current interpretive data was last revised on 2019. Organism Antibiotic Method Susceptibility Pseudomonas aeruginosa Aztreonam INTERPRETATION Susceptible Pseudomonas aeruginosa Ceftazidime INTERPRETATION Susceptible Pseudomonas aeruginosa Ciprofloxacin INTERPRETATION Susceptible Pseudomonas aeruginosa Cefepime INTERPRETATION Susceptible Pseudomonas aeruginosa Imipenem INTERPRETATION Susceptible Pseudomonas aeruginosa Meropenem INTERPRETATION Susceptible Pseudomonas aeruginosa Piperacillin/Tazobactam INTERPR ETATION Susceptible Pseudomonas aeruginosa Tobramycin INTERPRETATION Susceptible us Katie Hunter MD PhD LAB MICROBIOLOGY - GEN ERAL ORDERABLES Final Result Performing Organization Address City/[facility] Co de Phone Number [facility] Department [place] [address] * (ABNORMAL) Immature platelet fraction (11/19/2024 12:33 AM CDT) IPF 0.4(L) 1.6 - 10.1 % Blood 11/19/2024 12:3 3 AM CDT 11/19/2024 1:05 AM CDT us Vicente Mandujano MD LAB BLOOD OR DERABLES Final Result Performing Organization Address [facility] de Phone Number [facility] Department [place] [address] * eGFR (11/19/2024 12:33 AM CDT) Pathologist [facility] [place] eGFR >90 >=60 mL/min/1. 73 m2 Comment: Interpretive Data Reference Interval Normal >/= 90 mL/min/1.73m2 Mildly decreased* 60 - 89 mL/min/1.73m2 Mildly to moderately decreased 45 - 59 mL/min/1.73m2 Moderately to severely decreased 30 - 44 mL/min/1.73m2 Severely decreased 15 - 29 mL/min/1.73m2 Kidney Failure < 15 mL/min/1.73m2 *Relative to young adult level Estimated glomerular filtration rate is determined by the 2020 CKD-EPI equation recommended by the National Kidney Foundation (A Unifying Approach to GFR Estimation: Recommendations of the NKF-ASK Task Force on Reassessing the Inclusion of Race in Diagnosing Kidney Disease, JASN 2020). The CKD-EPI equation should not be used for patients with unstable renal function and has not been validated in children and those over 70. Current interpretive data was last reviewed 2021. Blood 11/19/2024 12:3 3 AM CDT 11/19/2024 1:01 AM CDT Vicente Mandujano MD LAB BLOOD OR DERABLES Final Result Performing Organization Address City/[facility]/ZIP Co de Phone Number [facility] Department [place] [address] * (ABNORMAL) Manual Differential (11/19/2024 12:33 AM CDT) Differential Manual Cells Counted 12 [facility] Neutrophil abs 0.0(L) 1.5 - 6.5 K/cumm [facility] Comment:BMT patient, result not critical Imm gran abs 0.0 0.0 - 0.1 K/cumm [facility] Lymphocyte abs 0.1(L) 0.8 - 3.3 K/cumm [facility] Monocyte abs 0.0(L) 0.2 - 0.8 K/cumm [facility] Neutrophil pct 0.0 % [facility] Comment: Interpretive Data Percent cell count reference ranges are not reported, since discordance with absolute values may lead to misinterpretation of CBC data. Current Interpretive Data was last revised on 2017. Lymphocyte pct 100.0 % [facility] Comment: Interpretive Data Percent cell count reference ranges are not reported, since discordance with absolute values may lead to misinterpretation of CBC data. Current Interpretive Data was last revised on 2017. RBC morphology Normal [facility] Platelet estimate Decreased( A) [facility] Blood 11/19/2024 12:3 3 AM CDT 11/19/2024 1:00 AM CDT Vicente Mandujano MD LAB BLOOD OR DERABLES Edited Result - Final Performing Organization Address City/[facility]/ZIP Co de Phone Number [facility] One [facility] Department [place] [address] * (ABNORMAL) CBC without differential (11/19/2024 12:33 AM CDT) WBC 0.1(C) 3.8 - 9.9 K/cumm Comment:Consistent with prev ious reported value Hgb 8.4(L) 11.9 - 15.5 g/dL [facility] Hct 23.7(L) 35.6 - 45.5 % [facility] Plt 12(C) 150 - 400 K/cumm [facility] Comment:Platelet count confi rmed by additional testing. Critical platelet count threshold determined by patient location: Outpatient:<50 K-cumm , Inpatient:<20 K-cumm , BMT service:<10 K-cumm MPV 9.1 9.1 - 12.3 fL [facility] RBC 2.66(L) 3.90 - 5.20 M/cumm [facility] MCV 89.1 81.3 - 96.4 fL [facility] MCH 31.6 27.1 - 33.3 pg [facility] MCHC 35.4 32.3 - 35.7 g/dL [facility] RDW CV 16.1(H) 11.1 - 14.9 % [facility] RDW SD 53.1(H) 35.7 - 48.1 fL [facility] NRBC abs 0.00 0.00 - 0.01 K/cumm [facility] Blood 11/19/2024 12:3 3 AM CDT 11/19/2024 1:00 AM CDT Vicente Mandujano MD LAB BLOOD OR DERABLES Final Result [facility] One [facility] [place] [address] * Type and screen (11/19/2024 12:33 AM CDT) Pathologist [facility] [place] Bing, indirect Negative ABO Rh A Positive [facility] Blood 11/19/2024 12:3 3 AM CDT 11/19/2024 1:09 AM CDT [facility]ative [facility] - 11/19/2024 2:20 AM CDT Has the patient had Daratumumab or Isatuximab in the past 6 months?->Unknown Vicente Mandujano MD LAB BLOOD BA NK TEST ORDERABLES Final Result [facility] [place] [address] * (ABNORMAL) Uric acid (11/19/2024 12:33 AM CDT) Uric acid 1.4(L) 2.5 - 7.0 mg/dL Blood 11/19/2024 12:3 3 AM CDT 11/19/2024 1:01 AM CDT Narrative [facility] - 11/19/2024 1:30 AM CDT Saturday and only. Morning draw. . Vicente Mandujano MD LAB BLOOD OR DERABLES Final Result Performing Organization Address City/[facility]/ZIP Co de Phone Number [facility] [place] [address] * Phosphorus (11/19/2024 12:33 AM CDT) Phosphorus, pl 3.6 2.3 - 4.5 mg/dL Blood 11/19/2024 12:3 3 AM CDT 11/19/2024 1:01 AM CDT Vicente Mandujano MD LAB BLOOD [place] [address] * Magnesium (11/19/2024 12:33 AM CDT) Magnesium 1.8 1.4 - 2.5 mg/dL Blood 11/19/2024 12:3 3 AM CDT 11/19/2024 1:01 AM CDT Vicente Mandujano MD LAB BLOOD OR DERABLES Final Result Performing Organization Address City/[facility] Co de Phone Number [facility] One [facility] Department [place] [address] * Lactate dehydrogenase (LD) (11/19/2024 12:33 AM CDT) Pathologist [facility] [place] Lactate dehydrogenase (LDH) 150 100 - 250 Units/L Blood 11/19/2024 12:3 3 AM CDT 11/19/2024 1:01 AM CDT Narrative [facility] - 11/19/2024 1:30 AM CDT Saturday and only. Morning draw. Vicente Mandujano MD LAB BLOOD OR DERABLES Final Result Performing Organization Address City/[facility] de Phone Number [facility] Department [place] [address] * (ABNORMAL) Comprehensive metabolic panel (11/19/2024 12:33 AM CDT) Pathologist [facility] [place] Sodium 143 135 - 145 mmol/L Potassium, pl 3.7 3.3 - 4.9 mmol/L [facility] Chloride 108 97 - 110 mmol/L [facility] CO2 25 22 - 32 mmol/L [facility] Anion gap 10 2 - 15 mmol/L [facility] BUN 9 6 - 25 mg/dL [facility] Creatinine 0.67 0.60 - 1.10 mg/dL [facility] Glucose 100 70 - 199 mg/dL [facility] Comment: Interpretive Data Fasting glucose >/= 126 mg/dl is diagnostic for diabetes. Fasting is defined as no caloric intake for at least 8 hours. Fasting glucose between 100 mg/dl to 125 mg/dl is diagnostic of prediabetes. In a patient with classic symptoms of hyperglycemia or hyperglycemic crisis, a random glucose >/= 200 mg/dl is diagnostic for diabetes. In the absence of unequivocal hyperglycemia, results should be confirmed by repeat testing. The classification and Diagnosis of Diabetes Diabetes Care 2021; 46: S19-S40. Current interpretive data was last revised 2022. Calcium 8.7 8.5 - 10.3 mg/dL [facility] Bilirubin, total 0.7 0.1 - 1.2 mg/dL [facility] Protein, pl 5.8(L) 6.5 - 8.5 g/dL [facility] Albumin 3.3(L) 3.5 - 5.0 g/dL [facility] Alk phos 103 40 - 130 Units/L [facility] ALT 16 7 - 45 Units/L [facility] AST 13 10 - 45 Units/L [facility] Blood 11/19/2024 12:3 3 AM CDT 11/19/2024 1:01 AM CDT Narrative [facility] - 11/19/2024 2:22 AM CDT Saturday and only. Morning draw. Vicente Mandujano MD LAB BLOOD OR DERABLES Final Result [facility] One [facility] Department [place] [address] * CT Abdomen Pelvis W Contrast (11/18/2024 8:10 PM CDT) Anatomical Region Laterality Modality Body N/A Computed Tomogra phy 11/18/2024 8:17 PM CDT Impressions 11/18/2024 8:32 PM CDT Increased extent of soft tissue stranding extending from the left labia majora to the suprapubic subcutaneous fat soft tissues compatible with cellulitis. No evidence of soft tissue gas or drainable fluid collection. Dictated by: Peter Wells MD The radiology attending physician has personally reviewed this study, and had reviewed and/or edited this written report and agrees with it. Electronically signed by: Walt Trujillo M.D. Narrative 11/18/2024 8:32 PM CDT EXAMINATION: Computed tomography of the abdomen and pelvis with intravenous contrast HISTORY: Evaluate for necrotizing soft tissue infection TECHNIQUE: Transaxial computed tomographic images of the abdomen and pelvis were obtained with intravenous contrast according to the standard protocol after the uneventful administration of 70 mL Opti-Ray 350 intravenous contrast. COMPARISON: 11/15/2024 FINDINGS: There is small left pleural effusion with mild atelectasis in the left lower lobe; otherwise, Partially imaged lower thorax is unremarkable. Small hiatal hernia. Liver, gallbladder, spleen, pancreas, adrenal glands are normal. Kidneys enhance symmetrically without hydronephrosis. Urinary bladder is decompressed with mild wall thickening. No adnexal mass. No bowel obstruction. Unchanged mild dilation of the appendix up to 8 mm. No ascites or pneumoperitoneum. No abdominal or pelvic lymphadenopathy. Abdominal aorta is normal in caliber. Mildly increased extent of soft tissue stranding of the left labia extending to the suprapubic soft tissues. No suspicious osseous lesion. Procedure Note Walt Trujillo MD - 11/18/2024 EXAMINATION: Computed tomography of the abdomen and pelvis with intravenous contrast HISTORY: Evaluate for necrotizing soft tissue infection TECHNIQUE: Transaxial computed tomographic images of the abdomen and pelvis were obtained with intravenous contrast according to the standard protocol after the uneventful administration of 70 mL Opti-Ray 350 intravenous contrast. COMPARISON: 11/15/2024 FINDINGS: There is small left pleural effusion with mild atelectasis in the left lower lobe; otherwise, Partially imaged lower thorax is unremarkable. Small hiatal hernia. Liver, gallbladder, spleen, pancreas, adrenal glands are normal. Kidneys enhance symmetrically without hydronephrosis. Urinary bladder is decompressed with mild wall thickening. No adnexal mass. No bowel obstruction. Unchanged mild dilation of the appendix up to 8 mm. No ascites or pneumoperitoneum. No abdominal or pelvic lymphadenopathy. Abdominal aorta is normal in caliber. Mildly increased extent of soft tissue stranding of the left labia extending to the suprapubic soft tissues. No suspicious osseous lesion. IMPRESSION: Increased extent of soft tissue stranding extending from the left labia majora to the suprapubic subcutaneous fat soft tissues compatible with cellulitis. No evidence of soft tissue gas or drainable fluid collection. Dictated by: Peter Wells MD The radiology attending physician has personally reviewed this study, and had reviewed and/or edited this written report and agrees with it. Electronically signed by: Walt Trujillo M.D. Winnie Hernandez MD IMG CT PROCEDURES Final R esult * (ABNORMAL) Immature platelet fraction (11/18/2024 12:23 AM CDT) IPF 0.1(L) 1.6 - 10.1 % Blood 11/18/2024 12:2 3 AM CDT 11/18/2024 12:46 AM CDT Vicente Mandujano MD LAB BLOOD OR DERABLES Final Result [facility] Department [place] [address] * eGFR (11/18/2024 12:23 AM CDT) eGFR >90 >=60 mL/min/1. 73 m2 Comment: Interpretive Data Reference Interval Normal >/= 90 mL/min/1.73m2 Mildly decreased* 60 - 89 mL/min/1.73m2 Mildly to moderately decreased 45 - 59 mL/min/1.73m2 Moderately to severely decreased 30 - 44 mL/min/1.73m2 Severely decreased 15 - 29 mL/min/1.73m2 Kidney Failure < 15 mL/min/1.73m2 *Relative to young adult level Estimated glomerular filtration rate is determined by the 2020 CKD-EPI equation recommended by the National Kidney Foundation (A Unifying Approach to GFR Estimation: Recommendations of the NKF-ASK Task Force on Reassessing the Inclusion of Race in Diagnosing Kidney Disease, JASN 2020). The CKD-EPI equation should not be used for patients with unstable renal function and has not been validated in children and those over 70. Current interpretive data was last reviewed 2021. Blood 11/18/2024 12:2 3 AM CDT 11/18/2024 12:40 AM CDT Vicente Mandujano MD LAB BLOOD OR DERABLES Final Result Performing Organization Address [facility] Co de Phone Number DAVID [facility] [place] [address] * (ABNORMAL) Manual Differential (11/18/2024 12:23 AM CDT) Differential Manual Cells Counted 17 [facility] Neutrophil pct 0.0 % [facility] Comment: Interpretive Data Percent cell count reference ranges are not reported, since discordance with absolute values may lead to misinterpretation of CBC data. Current Interpretive Data was last revised on 2017. Lymphocyte pct 100.0 % [facility] Comment: Interpretive Data Percent cell count reference ranges are not reported, since discordance with absolute values may lead to misinterpretation of CBC data. Current Interpretive Data was last revised on 2017. RBC morphology Present(A) [facility] Anisocytosis Moderate(A ) [facility] Poikilocytosis Slight(A) [facility] Microcytes 8-15/HPF(A ) [facility] Platelet estimate Decreased( A) [facility] Blood 11/18/2024 12:2 3 AM CDT 11/18/2024 12:40 AM CDT Vicente Mandujano MD LAB BLOOD OR DERABLES Edited Result - Final Performing Organization Address City/[facility] Co de Phone Number DAVID [facility] [place] [address] * Blood culture Blood (11/18/2024 12:23 AM CDT) Report Final Report: No growth Blood 11/18/2024 12:2 3 AM CDT 11/18/2024 1:28 AM CDT Narrative DAVID [facility] - 11/22/2024 7:00 AM CDT From a different site than #1. Collection->Peripheral 1. Blood cultures are incubated for 4 days on a continuously monitored blood culture system. The first report of a negative culture is issued within 24 hours of receipt of the specimen in the laboratory. 2. Positive culture results are reported as soon as they are detected. 3. The most important factor for detection of microbes in the setting of bloodstream infection is the volume of blood submitted for culture. Failure to collect an optimal blood volume can result in false negative blood cultures. 4. For pediatric patients, the recommended blood volume to collect follows a weight based strategy. See the electronic test catalog for collection instructions. 5. For positive blood cultures, a rapid molecular test may be performed for organism identification using the rosemary ePlex blood culture identification panel for gram positive (BCID-GP) and gram negative (BCID-GN) organisms. This nucleic acid amplification test detects microbial DNA in positive blood culture broth. This assay has been cleared by the [place] Food and Drug Administration and its performance characteristics have been verified by the [facility]biology Laboratory. For questions about this culture, contact the Microbiology Laboratory at [phone]. Interpretive data was last revised on 24. Jefferson Horvath MD LAB MICROBIOLOGY - GENERAL O RDERABLES Final Result YULISAFOSTER RICKY [facility] Department [place] [address] * Blood culture Blood (11/18/2024 12:23 AM CDT) Report Final Report: No growth Blood 11/18/2024 12:2 3 AM CDT 11/18/2024 1:28 AM CDT Narrative DAVID GARCÍA - 11/22/2024 7:00 AM CDT Collection->Peripheral 1. Blood cultures are incubated for 4 days on a continuously monitored blood culture system. The first report of a negative culture is issued within 24 hours of receipt of the specimen in the laboratory. 2. Positive culture results are reported as soon as they are detected. 3. The most important factor for detection of microbes in the setting of bloodstream infection is the volume of blood submitted for culture. Failure to collect an optimal blood volume can result in false negative blood cultures. 4. For pediatric patients, the recommended blood volume to collect follows a weight based strategy. See the electronic test catalog for collection instructions. 5. For positive blood cultures, a rapid molecular test may be performed for organism identification using the rosemary ePlex blood culture identification panel for gram positive (BCID-GP) and gram negative (BCID-GN) organisms. This nucleic acid amplification test detects microbial DNA in positive blood culture broth. This assay has been cleared by the [place] Food and Drug Administration and its performance characteristics have been verified by the [facility]biology Laboratory. For questions about this culture, contact the Microbiology Laboratory at [phone]. Interpretive data was last revised on 24. Jefferson Horvath MD LAB MICROBIOLOGY - GENERAL O RDERABLES Final Result [facility] One [facility] Department [place] [address] * (ABNORMAL) CBC without differential (11/18/2024 12:23 AM CDT) WBC 0.0(C) 3.8 - 9.9 K/cumm Comment:Consistent with prev ious reported value Hgb 8.7(L) 11.9 - 15.5 g/dL [facility] Hct 24.6(L) 35.6 - 45.5 % [facility] Plt 18(C) 150 - 400 K/cumm [facility] Comment:Platelet count confi rmed by additional testing. Critical platelet count threshold determined by patient location: Outpatient:<50 K-cumm , Inpatient:<20 K-cumm , BMT service:<10 K-cumm MPV 10.5 9.1 - 12.3 fL [facility] RBC 2.78(L) 3.90 - 5.20 M/cumm [facility] MCV 88.5 81.3 - 96.4 fL [facility] MCH 31.3 27.1 - 33.3 pg [facility] MCHC 35.4 32.3 - 35.7 g/dL [facility] RDW CV 16.1(H) 11.1 - 14.9 % [facility] RDW SD 52.4(H) 35.7 - 48.1 fL [facility] NRBC abs 0.00 0.00 - 0.01 K/cumm [facility] Blood 11/18/2024 12:2 3 AM CDT 11/18/2024 12:40 AM CDT Vicente Mandujano MD LAB BLOOD OR DERABLES Final Result Performing Organization Address City/[facility] Co de Phone Number [facility] [place] [address] * Phosphorus (11/18/2024 12:23 AM CDT) Phosphorus, pl 2.8 2.3 - 4.5 mg/dL Blood 11/18/2024 12:2 3 AM CDT 11/18/2024 12:40 AM CDT Vicente Mandujano MD LAB BLOOD OR DERABLES Final Result Performing Organization Address [facility] de Phone Number [facility] [place] [address] * Magnesium (11/18/2024 12:23 AM CDT) Magnesium 1.8 1.4 - 2.5 mg/dL Blood 11/18/2024 12:2 3 AM CDT 11/18/2024 12:40 AM CDT Vicente Mandujano MD LAB BLOOD OR DERABLES Final Result Performing Organization Address City/[facility] Co de Phone Number [facility] [place] [address] * (ABNORMAL) Basic metabolic panel (11/18/2024 12:23 AM CDT) Sodium 142 135 - 145 mmol/L Potassium, pl 3.9 3.3 - 4.9 mmol/L [facility] Chloride 110 97 - 110 mmol/L [facility] CO2 22 22 - 32 mmol/L [facility] Anion gap 10 2 - 15 mmol/L [facility] BUN 6 6 - 25 mg/dL [facility] Creatinine 0.59(L) 0.60 - 1.10 mg/dL [facility] Glucose 92 70 - 199 mg/dL [facility] Comment: Interpretive Data Fasting glucose >/= 126 mg/dl is diagnostic for diabetes. Fasting is defined as no caloric intake for at least 8 hours. Fasting glucose between 100 mg/dl to 125 mg/dl is diagnostic of prediabetes. In a patient with classic symptoms of hyperglycemia or hyperglycemic crisis, a random glucose >/= 200 mg/dl is diagnostic for diabetes. In the absence of unequivocal hyperglycemia, results should be confirmed by repeat testing. The classification and Diagnosis of Diabetes Diabetes Care 2021; 46: S19-S40. Current interpretive data was last revised 2022. Calcium 8.0(L) 8.5 - 10.3 mg/dL [facility] Blood 11/18/2024 12:2 3 AM CDT 11/18/2024 12:40 AM CDT Narrative [facility] - 11/18/2024 1:09 AM CDT Daily except Saturday and . Morning draw. Vicente Mandujano MD LAB BLOOD OR DERABLES Final Result [facility] One [facility] Department [place] [address] * Herpes Simplex Virus (HSV) PCR Lesion (11/17/2024 3:47 PM CDT) [facility] HSV DNA Not Detected Not Detected [facility] Comment: Interpretive Data This assay is performed using primers specific for the DNA polymerase gene of both HSV-1 and HSV-2. The assay contains unique primer/probe sets capable of distinguishing between HSV-1 and HSV-2. This assay has been cleared by the U.S. Food and Drug Administration for performance on cerebrospinal fluid and genital swabs. The assay has been evaluated for use on alternative sample types, though it is not FDA cleared for these applications. The performance of all sample types has been validated by the performing laboratory and deemed acceptable for patient testing. Current Interpretive Data was last reviewed on 12/30/2018 Lesion 11/17/2024 3:47 PM CDT 11/17/2024 4:09 PM CDT Narrative [facility] - 11/17/2024 11:09 PM CDT Right buccal mucosa us Winnie Hernandez MD LAB MICROBIOLOGY - GENERA L ORDERABLES Final Result Performing Organization Address [facility] Co de Phone Number [facility] Department [place] [address] [facility] * Transfuse platelets (11/17/2024 4:10 AM CDT) Jefferson Horvath MD BLOOD TRANSFUSION ORDERABLES Final Result Performing Organization Address [facility] Co de Phone Number [facility] Department [place] [address] * Prepare platelets: 1 Units (11/17/2024 1:56 AM CDT) [facility] Product code [id number] Unit Number [id number] N [facility] Product Blood Type APOS [facility] Dispense Status PRESUMED TRANSFUSED [facility] Blood Venous blood specimen / Unknown 11/17/2024 1:56 AM CDT 11/17/2024 1:56 AM CDT Narrative [facility] - 11/17/2024 4:00 PM CDT Are special requirements needed? (all products are leukoreduced)->Yes Date required:-[id number] Special Req 1:-Irradiated PLT # of Units:-1-Units Reasons:-Stable, non-bleeding, plt < 10 K/cumm} Jefferson Horvath MD BLOOD BANK PRODUCT ORDERABLE S Final Result Performing Organization Address [facility] Co de Phone Number [facility] Department [place] [address] * (ABNORMAL) Immature platelet fraction (11/17/2024 12:24 AM CDT) Pathologist [facility] IPF 0.5(L) 1.6 - 10.1 % Blood 11/17/2024 12:2 4 AM CDT 11/17/2024 12:49 AM CDT Vicente Mandujano MD LAB BLOOD OR DERABLES Final Result [facility] [place] [address] * eGFR (11/17/2024 12:24 AM CDT) [facility] eGFR >90 >=60 mL/min/1. 73 m2 Comment: Interpretive Data Reference Interval Normal >/= 90 mL/min/1.73m2 Mildly decreased* 60 - 89 mL/min/1.73m2 Mildly to moderately decreased 45 - 59 mL/min/1.73m2 Moderately to severely decreased 30 - 44 mL/min/1.73m2 Severely decreased 15 - 29 mL/min/1.73m2 Kidney Failure < 15 mL/min/1.73m2 *Relative to young adult level Estimated glomerular filtration rate is determined by the 2020 CKD-EPI equation recommended by the National Kidney Foundation (A Unifying Approach to GFR Estimation: Recommendations of the NKF-ASK Task Force on Reassessing the Inclusion of Race in Diagnosing Kidney Disease, JASN 2020). The CKD-EPI equation should not be used for patients with unstable renal function and has not been validated in children and those over 70. Current interpretive data was last reviewed 2021. Blood 11/17/2024 12:2 4 AM CDT 11/17/2024 12:45 AM CDT Vicente Mandujano MD LAB BLOOD OR DERABLES Final Result DAVID [facility] Department [place] [address] * (ABNORMAL) Manual Differential (11/17/2024 12:24 AM CDT) Differential Manual Cells Counted 9 [facility] Neutrophil pct 0.0 % [facility] Comment: Interpretive Data Percent cell count reference ranges are not reported, since discordance with absolute values may lead to misinterpretation of CBC data. Current Interpretive Data was last revised on 2017. Lymphocyte pct 100.0 % [facility] Comment: Interpretive Data Percent cell count reference ranges are not reported, since discordance with absolute values may lead to misinterpretation of CBC data. Current Interpretive Data was last revised on 2017. RBC morphology Present(A) [facility] Anisocytosis Slight(A) [facility] Poikilocytosis Slight(A) [facility] Platelet estimate Decreased( A) [facility] Blood 11/17/2024 12:2 4 AM CDT 11/17/2024 12:45 AM CDT Vicente Mandujano MD LAB BLOOD OR DERABLES Edited Result - Final [facility] [place] [address] * Blood culture Blood (11/17/2024 12:24 AM CDT) Report Final Report: No growth Blood 11/17/2024 12:2 4 AM CDT 11/17/2024 12:42 AM CDT Narrative [facility] - 11/21/2024 7:01 AM CDT From a different site than #1. Collection->Peripheral 1. Blood cultures are incubated for 4 days on a continuously monitored blood culture system. The first report of a negative culture is issued within 24 hours of receipt of the specimen in the laboratory. 2. Positive culture results are reported as soon as they are detected. 3. The most important factor for detection of microbes in the setting of bloodstream infection is the volume of blood submitted for culture. Failure to collect an optimal blood volume can result in false negative blood cultures. 4. For pediatric patients, the recommended blood volume to collect follows a weight based strategy. See the electronic test catalog for collection instructions. 5. For positive blood cultures, a rapid molecular test may be performed for organism identification using the rosemary ePlex blood culture identification panel for gram positive (BCID-GP) and gram negative (BCID-GN) organisms. This nucleic acid amplification test detects microbial DNA in positive blood culture broth. This assay has been cleared by the [place] Food and Drug Administration and its performance characteristics have been verified by the [facility] Microbiology Laboratory. For questions about this culture, contact the Microbiology Laboratory at [phone]. Interpretive data was last revised on 24. Jefferson Horvath MD LAB MICROBIOLOGY - GENERAL O RDERABLES Final Result DAVID GARCÍA [facility] Department [place] [address] * Blood culture Blood (11/17/2024 12:24 AM CDT) Report Final Report: No growth Blood 11/17/2024 12:2 4 AM CDT 11/17/2024 12:42 AM CDT Narrative [facility] - 11/21/2024 7:01 AM CDT Collection->Peripheral 1. Blood cultures are incubated for 4 days on a continuously monitored blood culture system. The first report of a negative culture is issued within 24 hours of receipt of the specimen in the laboratory. 2. Positive culture results are reported as soon as they are detected. 3. The most important factor for detection of microbes in the setting of bloodstream infection is the volume of blood submitted for culture. Failure to collect an optimal blood volume can result in false negative blood cultures. 4. For pediatric patients, the recommended blood volume to collect follows a weight based strategy. See the electronic test catalog for collection instructions. 5. For positive blood cultures, a rapid molecular test may be performed for organism identification using the rosemary ePlex blood culture identification panel for gram positive (BCID-GP) and gram negative (BCID-GN) organisms. This nucleic acid amplification test detects microbial DNA in positive blood culture broth. This assay has been cleared by the [place] Food and Drug Administration and its performance characteristics have been verified by the [facility]biology Laboratory. For questions about this culture, contact the Microbiology Laboratory at [phone]. Interpretive data was last revised on 24. Jefferson Horvath MD LAB MICROBIOLOGY - GENERAL O RDERABLES Final Result [facility] Department [place] [address] * (ABNORMAL) CBC without differential (11/17/2024 12:24 AM CDT) WBC 0.0(C) 3.8 - 9.9 K/cumm Comment:Consistent with prev ious reported value Hgb 8.7(L) 11.9 - 15.5 g/dL [facility] Hct 24.7(L) 35.6 - 45.5 % [facility] Plt 6(C) 150 - 400 K/cumm [facility] Comment:Critical result call ed to and read back by NORRIS MINOR RN on 11 17 2024 at 0123 to VIVIAN PLEITEZ. MPV 12.9(H) 9.1 - 12.3 fL [facility] RBC 2.82(L) 3.90 - 5.20 M/cumm [facility] MCV 87.6 81.3 - 96.4 fL [facility] MCH 30.9 27.1 - 33.3 pg [facility] MCHC 35.2 32.3 - 35.7 g/dL [facility] RDW CV 15.9(H) 11.1 - 14.9 % [facility] RDW SD 51.0(H) 35.7 - 48.1 fL [facility] NRBC abs 0.00 0.00 - 0.01 K/cumm [facility] Blood 11/17/2024 12:2 4 AM CDT 11/17/2024 12:45 AM CDT Vicente Mandujano MD LAB BLOOD OR DERABLES Final Result Performing Organization Address [facility] [place] [address] * Type and screen (11/17/2024 12:24 AM CDT) Bing, indirect Negative ABO Rh A Positive [facility] Blood 11/17/2024 12:2 4 AM CDT 11/17/2024 12:49 AM CDT Narrative [facility] - 11/17/2024 1:34 AM CDT Has the patient had Daratumumab or Isatuximab in the past 6 months?->Unknown Vicente Mandujano MD LAB BLOOD BA NK TEST ORDERABLES Final Result Performing Organization Address [facility] Co de Phone Number [facility] Department [place] [address] * Phosphorus (11/17/2024 12:24 AM CDT) Phosphorus, pl 2.9 2.3 - 4.5 mg/dL Blood 11/17/2024 12:2 4 AM CDT 11/17/2024 12:45 AM CDT Vicente Mandujano MD LAB BLOOD OR DERABLES Final Result Performing Organization Address [facility] Co de Phone Number [facility] [place] [address] * Magnesium (11/17/2024 12:24 AM CDT) Magnesium 1.7 1.4 - 2.5 mg/dL Blood 11/17/2024 12:2 4 AM CDT 11/17/2024 12:45 AM CDT Vicente Mandujano MD LAB BLOOD OR DERABLES Final Result [facility] One [facility] Department [place] [address] * (ABNORMAL) Basic metabolic panel (11/17/2024 12:24 AM CDT) Sodium 142 135 - 145 mmol/L Potassium, pl 3.0(L) 3.3 - 4.9 mmol/L [facility] Chloride 110 97 - 110 mmol/L [facility] CO2 24 22 - 32 mmol/L [facility] Anion gap 8 2 - 15 mmol/L [facility] BUN 7 6 - 25 mg/dL [facility] Creatinine 0.68 0.60 - 1.10 mg/dL [facility] Glucose 104 70 - 199 mg/dL [facility] Comment: Interpretive Data Fasting glucose >/= 126 mg/dl is diagnostic for diabetes. Fasting is defined as no caloric intake for at least 8 hours. Fasting glucose between 100 mg/dl to 125 mg/dl is diagnostic of prediabetes. In a patient with classic symptoms of hyperglycemia or hyperglycemic crisis, a random glucose >/= 200 mg/dl is diagnostic for diabetes. In the absence of unequivocal hyperglycemia, results should be confirmed by repeat testing. The classification and Diagnosis of Diabetes Diabetes Care 202; 46: S19-S40. Current interpretive data was last revised 2022. Calcium 8.0(L) 8.5 - 10.3 mg/dL [facility] Blood 11/17/2024 12:2 4 AM CDT 11/17/2024 12:45 AM CDT Narrative [facility] - 11/17/2024 1:15 AM CDT Daily except Saturday and . Morning draw. Vicente Mandujano MD LAB BLOOD OR DERABLES Final Result [facility] One [facility] Department [place] [address] * Transfuse RBC (11/16/2024 6:59 AM CDT) Blood Jefferson Horvath MD BLOOD TRANSFUSION ORDERABLES Final Result Performing Organization Address City/[facility]/ZIP Co de Phone Number [facility] Department [place] [address] * Blood culture Blood (11/16/2024 4:48 AM CDT) Report Final Report: No growth Blood 11/16/2024 4:48 AM CDT 11/16/2024 5:39 AM CDT Narrative DAVID GARCÍA - 11/20/2024 7:00 AM CDT From a different site than #1. Collection->Peripheral 1. Blood cultures are incubated for 4 days on a continuously monitored blood culture system. The first report of a negative culture is issued within 24 hours of receipt of the specimen in the laboratory. 2. Positive culture results are reported as soon as they are detected. 3. The most important factor for detection of microbes in the setting of bloodstream infection is the volume of blood submitted for culture. Failure to collect an optimal blood volume can result in false negative blood cultures. 4. For pediatric patients, the recommended blood volume to collect follows a weight based strategy. See the electronic test catalog for collection instructions. 5. For positive blood cultures, a rapid molecular test may be performed for organism identification using the rosemary ePlex blood culture identification panel for gram positive (BCID-GP) and gram negative (BCID-GN) organisms. This nucleic acid amplification test detects microbial DNA in positive blood culture broth. This assay has been cleared by the [place] Food and Drug Administration and its performance characteristics have been verified by the [facility]biology Laboratory. For questions about this culture, contact the Microbiology Laboratory at [phone]. Interpretive data was last revised on 24. Jefferson Horvath MD LAB MICROBIOLOGY - GENERAL O RDERABLES Final Result Performing Organization Address City/[facility]/ZIP Co de Phone Number DAVID GARCÍA [facility] Department [place] [address] * Blood culture Blood (11/16/2024 4:48 AM CDT) Report Final Report: No growth Blood 11/16/2024 4:48 AM CDT 11/16/2024 5:39 AM CDT Narrative DAVID GARCÍA - 11/20/2024 7:00 AM CDT Collection->Peripheral 1. Blood cultures are incubated for 4 days on a continuously monitored blood culture system. The first report of a negative culture is issued within 24 hours of receipt of the specimen in the laboratory. 2. Positive culture results are reported as soon as they are detected. 3. The most important factor for detection of microbes in the setting of bloodstream infection is the volume of blood submitted for culture. Failure to collect an optimal blood volume can result in false negative blood cultures. 4. For pediatric patients, the recommended blood volume to collect follows a weight based strategy. See the electronic test catalog for collection instructions. 5. For positive blood cultures, a rapid molecular test may be performed for organism identification using the rosemary ePlex blood culture identification panel for gram positive (BCID-GP) and gram negative (BCID-GN) organisms. This nucleic acid amplification test detects microbial DNA in positive blood culture broth. This assay has been cleared by the [place] Food and Drug Administration and its performance characteristics have been verified by the [facility] Microbiology Laboratory. For questions about this culture, contact the Microbiology Laboratory at [phone]. Interpretive data was last revised on 24. Jefferson Horvath MD LAB MICROBIOLOGY - GENERAL O RDERABLES Final Result [facility] Department [place] [address] * Prepare RBC: 1 Units (11/16/2024 1:27 AM CDT) Product code [id number] Unit Number [id number] [facility] Product Blood Type APOS [facility] Dispense Status PRESUMED TRANSFUSED [facility] Blood Venous blood specimen / Unknown 11/16/2024 1:27 AM CDT 11/16/2024 1:27 AM CDT Narrative DAVID [facility] - 11/16/2024 4:00 PM CDT Are special requirements needed? (All products are leukoreduced and CMV- safe)- >Yes Date required:-[id number] Special Req 1:-Irradiated LRRBC # of [id number] Reasons:-BMT, Hgb <8 g/dL} Jefferson Horvath MD BLOOD BANK PRODUCT ORDERABLE S Final Result Performing Organization Address City/[facility]/ZIP Co de Phone Number [facility] Department [place] [address] * (ABNORMAL) Immature platelet fraction (11/16/2024 12:24 AM CDT) Pathologist [facility] [place] IPF 1.1(L) 1.6 - 10.1 % Blood 11/16/2024 12:2 4 AM CDT 11/16/2024 1:03 AM CDT Vicente Mandujano MD LAB BLOOD OR DERABLES Final Result Performing Organization Address City/[facility]/ZIP Co de Phone Number [facility] Department [place] [address] * eGFR (11/16/2024 12:24 AM CDT) eGFR >90 >=60 mL/min/1. 73 m2 Comment: Interpretive Data Reference Interval Normal >/= 90 mL/min/1.73m2 Mildly decreased* 60 - 89 mL/min/1.73m2 Mildly to moderately decreased 45 - 59 mL/min/1.73m2 Moderately to severely decreased 30 - 44 mL/min/1.73m2 Severely decreased 15 - 29 mL/min/1.73m2 Kidney Failure < 15 mL/min/1.73m2 *Relative to young adult level Estimated glomerular filtration rate is determined by the 2020 CKD-EPI equation recommended by the National Kidney Foundation (A Unifying Approach to GFR Estimation: Recommendations of the NKF-ASK Task Force on Reassessing the Inclusion of Race in Diagnosing Kidney Disease, JASN 2020). The CKD-EPI equation should not be used for patients with unstable renal function and has not been validated in children and those over 70. Current interpretive data was last reviewed 2021. Blood 11/16/2024 12:2 4 AM CDT 11/16/2024 12:38 AM CDT Vicente Mandujano MD LAB BLOOD OR DERABLES Final Result Performing Organization Address City/[facility]/ZIP Co de Phone Number [facility] [place] [address] * (ABNORMAL) Manual Differential (11/16/2024 12:24 AM CDT) Differential Manual Cells Counted 5 [facility] Neutrophil pct 0.0 % [facility] Comment: Interpretive Data Percent cell count reference ranges are not reported, since discordance with absolute values may lead to misinterpretation of CBC data. Current Interpretive Data was last revised on 2017. Lymphocyte pct 100.0 % [facility] Comment: Interpretive Data Percent cell count reference ranges are not reported, since discordance with absolute values may lead to misinterpretation of CBC data. Current Interpretive Data was last revised on 2017. RBC morphology Normal [facility] Platelet estimate Decreased( A) [facility] Blood 11/16/2024 12:2 4 AM CDT 11/16/2024 12:38 AM CDT Vicente Mandujano MD LAB BLOOD OR DERABLES Edited Result - Final Performing Organization Address City/[facility]/ZIP Co de Phone Number DAVID [facility] Department [place] [address] * aPTT (11/16/2024 12:24 AM CDT) aPTT 34 28 - 38 sec Comment: Interpretive Data Heparin therapeutic range: 66.0 - 100.0 seconds. Range based on correlation with therapeutic heparin activity range of 0.3 - 0.7 Units/mL. Current interpretive data was last revised on 2023. Blood 11/16/2024 12:2 4 AM CDT 11/16/2024 12:40 AM CDT Vicente Mandujano MD LAB BLOOD OR DERABLES Final Result Performing Organization Address [facility] de Phone Number [facility] Department [place] [address] * (ABNORMAL) Protime-INR (11/16/2024 12:24 AM CDT) PT 15.5(H) 9.7 - 13.0 sec INR 1.42(H) 0.90 - 1.20 [facility] Comment: Interpretive data Oral anticoagulant therapeutic ranges: Venous thromboembolism prophylaxis or treatment: 2.0-3.0 CARDIOLOGY Standard range: 2.0-3.0 High-intensity range: 2.5-3.5 Refer to indication-specific guidelines for appropriate target ranges for prosthetic heart valve replacement. Current interpretive data was last revised on 2019. Blood 11/16/2024 12:2 4 AM CDT 11/16/2024 12:40 AM CDT Vicente Mandujano MD LAB BLOOD OR DERABLES Final Result Performing Organization Address [facility] de Phone Number [facility] Department [place] [address] * (ABNORMAL) CBC without differential (11/16/2024 12:24 AM CDT) WBC 0.0(C) 3.8 - 9.9 K/cumm Comment:Consistent with prev ious reported value Hgb 7.7(L) 11.9 - 15.5 g/dL [facility] Hct 22.6(L) 35.6 - 45.5 % [facility] Plt 12(C) 150 - 400 K/cumm [facility] Comment:Platelet count confi rmed by additional testing. Critical platelet count threshold determined by patient location: Outpatient:<50 K-cumm , Inpatient:<20 K-cumm , BMT service:<10 K-cumm MPV 11.4 9.1 - 12.3 fL [facility] RBC 2.51(L) 3.90 - 5.20 M/cumm [facility] MCV 90.0 81.3 - 96.4 fL [facility] MCH 30.7 27.1 - 33.3 pg [facility] MCHC 34.1 32.3 - 35.7 g/dL [facility] RDW CV 17.3(H) 11.1 - 14.9 % [facility] RDW SD 57.1(H) 35.7 - 48.1 fL [facility] NRBC abs 0.00 0.00 - 0.01 K/cumm [facility] Blood 11/16/2024 12:2 4 AM CDT 11/16/2024 12:38 AM CDT Vicente Mandujano MD LAB BLOOD OR DERABLES Final Result [facility] Department [place] [address] * Type and screen (11/16/2024 12:24 AM CDT) ABO Rh A Positive Bing, indirect Negative [facility] Blood 11/16/2024 12:2 4 AM CDT 11/16/2024 12:50 AM CDT Narrative [facility] - 11/16/2024 2:30 AM CDT Has the patient had Daratumumab or Isatuximab in the past 6 months?->Unknown Vicente Mandujano MD LAB BLOOD BA NK TEST ORDERABLES Final Result [facility] [place] [address] * (ABNORMAL) Uric acid (11/16/2024 12:24 AM CDT) Pathologist [facility] [place] Uric acid 1.2(L) 2.5 - 7.0 mg/dL Blood 11/16/2024 12:2 4 AM CDT 11/16/2024 12:38 AM CDT Narrative [facility] - 11/16/2024 1:24 AM CDT Saturday and only. Morning draw. . Vicente Mandujano MD LAB BLOOD OR DERABLES Final Result Performing Organization Address [facility] Co de Phone Number [facility] [place] [address] * Phosphorus (11/16/2024 12:24 AM CDT) Pathologist [facility] [place] Phosphorus, pl 2.6 2.3 - 4.5 mg/dL Blood 11/16/2024 12:2 4 AM CDT 11/16/2024 12:38 AM CDT Vicente Mandujano MD LAB BLOOD OR DERABLES Final Result Performing Organization Address [facility] de Phone Number [facility] [place] [address] * Magnesium (11/16/2024 12:24 AM CDT) Pathologist [facility] [place] Magnesium 1.9 1.4 - 2.5 mg/dL Blood 11/16/2024 12:2 4 AM CDT 11/16/2024 12:38 AM CDT Vicente Mandujano MD LAB BLOOD OR DERABLES Final Result [facility] Department [place] [address] * Lactate dehydrogenase (LD) (11/16/2024 12:24 AM CDT) [facility] Lactate dehydrogenase (LDH) 195 100 - 250 Units/L Blood 11/16/2024 12:2 4 AM CDT 11/16/2024 12:38 AM CDT Narrative [facility] - 11/16/2024 1:24 AM CDT Saturday and only. Morning draw. Vicente Mandujano MD LAB BLOOD OR DERABLES Final Result Performing Organization Address [facility] Co de Phone Number [facility] Department [place] [address] * (ABNORMAL) Comprehensive metabolic panel (11/16/2024 12:24 AM CDT) [facility] Sodium 139 135 - 145 mmol/L Potassium, pl 3.5 3.3 - 4.9 mmol/L [facility] Chloride 109 97 - 110 mmol/L [facility] CO2 24 22 - 32 mmol/L [facility] Anion gap 6 2 - 15 mmol/L [facility] BUN 11 6 - 25 mg/dL [facility] Creatinine 0.65 0.60 - 1.10 mg/dL [facility] Glucose 103 70 - 199 mg/dL [facility] Comment: Interpretive Data Fasting glucose >/= 126 mg/dl is diagnostic for diabetes. Fasting is defined as no caloric intake for at least 8 hours. Fasting glucose between 100 mg/dl to 125 mg/dl is diagnostic of prediabetes. In a patient with classic symptoms of hyperglycemia or hyperglycemic crisis, a random glucose >/= 200 mg/dl is diagnostic for diabetes. In the absence of unequivocal hyperglycemia, results should be confirmed by repeat testing. The classification and Diagnosis of Diabetes Diabetes Care 2021; 46: S19-S40. Current interpretive data was last revised 2022. Calcium 7.7(L) 8.5 - 10.3 mg/dL [facility] Bilirubin, total 1.6(H) 0.1 - 1.2 mg/dL [facility] Protein, pl 5.0(L) 6.5 - 8.5 g/dL [facility] Albumin 2.7(L) 3.5 - 5.0 g/dL [facility] Alk phos 111 40 - 130 Units/L [facility] ALT 19 7 - 45 Units/L [facility] AST 12 10 - 45 Units/L [facility] Blood 11/16/2024 12:2 4 AM CDT 11/16/2024 12:38 AM CDT Narrative [facility] - 11/16/2024 1:24 AM CDT Saturday and only. Morning draw. Vicente Mandujano MD LAB BLOOD OR DERABLES Final Result Performing Organization Address [facility] Co de Phone Number [facility] Department [place] [address] * Lactate (11/15/2024 4:33 PM CDT) Lactate 1.3 0.7 - 2.0 mmol/L Blood 11/15/2024 4:33 PM CDT 11/15/2024 4:52 PM CDT Jefferson Horvath MD LAB BLOOD ORDERABLES Final R esult Performing Organization Address City/[facility]/ZIP Co de Phone Number [facility] Department [place] [address] * Fibrinogen (11/15/2024 4:33 PM CDT) Fibrinogen 270 170 - 400 mg/dL Blood 11/15/2024 4:33 PM CDT 11/15/2024 4:50 PM CDT Jefferson Horvath MD LAB BLOOD [place] [address] * Infection Prevention VRE Culture Rectal swab Rectum (11/15/2024 4:33 PM CDT) [facility] Report Final Report: Negative Rectal swab (Rectum) 11/15/2024 4:33 PM CDT 11/15/2024 4:44 PM CDT Narrative [facility] - 11/17/2024 7:21 PM CDT Surveillance culture for Infection Prevention purposes only; results indicate colonization, not infection requiring treatment. Testing performed by [facility] Microbiology Laboratory ([phone]). us Jefferson Horvath MD LAB MICROBIOLOGY - GENERAL O RDERABLES Final Result Performing Organization Address [facility] de Phone Number [facility] [place] [address] * Creatine kinase (CK), total (11/15/2024 12:51 PM CDT) [facility] CK 32 30 - 200 Units/L Blood 11/15/2024 12:5 1 PM CDT 11/15/2024 1:29 PM CDT us Jefferson Horvath MD LAB BLOOD ORDERABLES Final R esult Performing Organization Address [facility] [place] [address] * Herpes Simplex Virus (HSV) PCR Vaginal (11/15/2024 11:35 AM CDT) [facility] HSV DNA Not Detected Not Detected [facility] Comment: Interpretive Data This assay is performed using primers specific for the DNA polymerase gene of both HSV-1 and HSV-2. The assay contains unique primer/probe sets capable of distinguishing between HSV-1 and HSV-2. This assay has been cleared by the U.S. Food and Drug Administration for performance on cerebrospinal fluid and genital swabs. The assay has been evaluated for use on alternative sample types, though it is not FDA cleared for these applications. The performance of all sample types has been validated by the performing laboratory and deemed acceptable for patient testing. Current Interpretive Data was last reviewed on 12/30/2018 Vaginal 11/15/2024 11:3 5 AM CDT 11/15/2024 12:07 PM CDT Narrative DAVID [facility] - 11/15/2024 11:11 PM CDT Labial ulcer Jefferson Horvath MD LAB MICROBIOLOGY - GENERAL O RDERABLES Final Result [facility] [place] [address] [facility] * Herpes Simplex Virus (HSV) PCR Blood (11/15/2024 11:30 AM CDT) Pathologist [facility] [place] HSV DNA Not Detected Not Detected [facility] Comment: Interpretive Data This assay is performed using primers specific for the DNA polymerase gene of both HSV-1 and HSV-2. The assay contains unique primer/probe sets capable of distinguishing between HSV-1 and HSV-2. This assay has been cleared by the U.S. Food and Drug Administration for performance on cerebrospinal fluid and genital swabs. The assay has been evaluated for use on alternative sample types, though it is not FDA cleared for these applications. The performance of all sample types has been validated by the performing laboratory and deemed acceptable for patient testing. Current Interpretive Data was last reviewed on 12/30/2018 Blood 11/15/2024 11:3 0 AM CDT 11/15/2024 12:03 PM CDT Jefferson Horvath MD LAB MICROBIOLOGY - GENERAL O RDERABLES Final Result DAVID [facility] Department [place] [address] [facility] * CT Abdomen Pelvis W Contrast (11/15/2024 10:25 AM CDT) Anatomical Region Laterality Modality Body N/A Computed Tomogra phy 11/15/2024 11:3 1 AM CDT Impressions 11/15/2024 11:53 AM CDT New asymmetric soft tissue stranding along the along the left labia majora compatible with cellulitis. No evidence of discrete drainable fluid collection. Dictated by: Natalie Wagner MD The radiology attending physician has personally reviewed this study, and had reviewed and/or edited this written report and agrees with it. Electronically signed by: Celia Geronimo M.D. Narrative 11/15/2024 11:53 AM CDT EXAMINATION: Computed tomography of the abdomen and pelvis with intravenous contrast HISTORY: Neutropenic sepsis new onset labial swelling. TECHNIQUE: Transaxial computed tomographic images of the abdomen and pelvis were obtained with intravenous contrast according to the standard protocol after the uneventful administration of 69 mL Opti-Ray 350 intravenous contrast. COMPARISON: CT abdomen pelvis dated 10/27/2019 FINDINGS: Small left pleural effusion. Mild bibasilar atelectasis. No pericardial effusion. Small hiatal hernia. No focal hepatic lesion. No biliary ductal dilation. There is minimal gallbladder wall thickening. The gallbladder, pancreas, spleen and adrenal glands are normal. Kidneys enhancement without hydronephrosis. The urinary bladder is normal. Uterus is present. No adnexal mass. No evidence of bowel obstruction. The appendix is unchanged in appearance measuring up to 8 mm Small volume ascites, unchanged. No pneumoperitoneum. No abdominal or pelvic lymphadenopathy. Abdominal aorta is normal in caliber. There is asymmetric new soft tissue stranding along the left labia majora. No evidence of discrete drainable fluid collection. No suspicious osseous lesion. Procedure Note Celia Geronimo MD - 11/15/2024 EXAMINATION: Computed tomography of the abdomen and pelvis with intravenous contrast HISTORY: Neutropenic sepsis new onset labial swelling. TECHNIQUE: Transaxial computed tomographic images of the abdomen and pelvis were obtained with intravenous contrast according to the standard protocol after the uneventful administration of 69 mL Opti-Ray 350 intravenous contrast. COMPARISON: CT abdomen pelvis dated 10/27/2019 FINDINGS: Small left pleural effusion. Mild bibasilar atelectasis. No pericardial effusion. Small hiatal hernia. No focal hepatic lesion. No biliary ductal dilation. There is minimal gallbladder wall thickening. The gallbladder, pancreas, spleen and adrenal glands are normal. Kidneys enhancement without hydronephrosis. The urinary bladder is normal. Uterus is present. No adnexal mass. No evidence of bowel obstruction. The appendix is unchanged in appearance measuring up to 8 mm Small volume ascites, unchanged. No pneumoperitoneum. No abdominal or pelvic lymphadenopathy. Abdominal aorta is normal in caliber. There is asymmetric new soft tissue stranding along the left labia majora. No evidence of discrete drainable fluid collection. No suspicious osseous lesion. IMPRESSION: New asymmetric soft tissue stranding along the along the left labia majora compatible with cellulitis. No evidence of discrete drainable fluid collection. Dictated by: Natalie Wagner MD The radiology attending physician has personally reviewed this study, and had reviewed and/or edited this written report and agrees with it. Electronically signed by: Celia Geronimo M.D. Jefferson Horvath MD IMG CT PROCEDURES Final Resu lt * Transfuse platelets (11/15/2024 2:29 AM CDT) Marcus Vergara MD BLOOD TRANSFUSION ORDERABLES Fi nal Result [facility] Department [place] [address] * (ABNORMAL) Immature platelet fraction (11/15/2024 1:31 AM CDT) IPF 0.4(L) 1.6 - 10.1 % Blood 11/15/2024 1:31 AM CDT 11/15/2024 1:52 AM CDT Vicente Mandujano MD LAB BLOOD OR DERABLES Final Result Performing Organization Address City/[facility]/ZIP Co de Phone Number [facility] Department [place] [address] * eGFR (11/15/2024 1:31 AM CDT) eGFR >90 >=60 mL/min/1. 73 m2 Comment: Interpretive Data Reference Interval Normal >/= 90 mL/min/1.73m2 Mildly decreased* 60 - 89 mL/min/1.73m2 Mildly to moderately decreased 45 - 59 mL/min/1.73m2 Moderately to severely decreased 30 - 44 mL/min/1.73m2 Severely decreased 15 - 29 mL/min/1.73m2 Kidney Failure < 15 mL/min/1.73m2 *Relative to young adult level Estimated glomerular filtration rate is determined by the 2020 CKD-EPI equation recommended by the National Kidney Foundation (A Unifying Approach to GFR Estimation: Recommendations of the NKF-ASK Task Force on Reassessing the Inclusion of Race in Diagnosing Kidney Disease, JASN 2020). The CKD-EPI equation should not be used for patients with unstable renal function and has not been validated in children and those over 70. Current interpretive data was last reviewed 2021. Blood 11/15/2024 1:31 AM CDT 11/15/2024 1:46 AM CDT Vicente Mandujano MD LAB BLOOD OR DERABLES Final Result [facility] Department [place] [address] * (ABNORMAL) Manual Differential (11/15/2024 1:31 AM CDT) Pathologist [facility] [place] Differential Manual Cells Counted 2 [facility] Neutrophil pct 0.0 % [facility] Comment: Interpretive Data Percent cell count reference ranges are not reported, since discordance with absolute values may lead to misinterpretation of CBC data. Current Interpretive Data was last revised on 2017. Lymphocyte pct 100.0 % DAVID [facility] Comment: Interpretive Data Percent cell count reference ranges are not reported, since discordance with absolute values may lead to misinterpretation of CBC data. Current Interpretive Data was last revised on 2017. RBC morphology Present(A) DAVID GARCÍA Anisocytosis Slight(A) DAVID [facility] Microcytes 3-7/HPF(A) [facility] Platelet estimate Decreased( A) [facility] Blood 11/15/2024 1:31 AM CDT 11/15/2024 1:46 AM CDT Vicente Mandujano MD LAB BLOOD OR DERABLES Final Result Performing Organization Address [facility] Co de Phone Number [facility] Department [place] [address] * (ABNORMAL) CBC without differential (11/15/2024 1:31 AM CDT) WBC 0.0(C) 3.8 - 9.9 K/cumm Comment:Consistent with prev ious reported value Hgb 8.1(L) 11.9 - 15.5 g/dL [facility] Hct 23.3(L) 35.6 - 45.5 % [facility] Plt 6(C) 150 - 400 K/cumm [facility] Comment:Critical result call ed to and read back by JAE DAVIS RN on 11 15 2024 at 0202 to Clotilde Caruso. MPV 11.3 9.1 - 12.3 fL [facility] RBC 2.63(L) 3.90 - 5.20 M/cumm [facility] MCV 88.6 81.3 - 96.4 fL [facility] MCH 30.8 27.1 - 33.3 pg [facility] MCHC 34.8 32.3 - 35.7 g/dL [facility] RDW CV 17.5(H) 11.1 - 14.9 % [facility] RDW SD 57.2(H) 35.7 - 48.1 fL [facility] NRBC abs 0.00 0.00 - 0.01 K/cumm [facility] Blood 11/15/2024 1:31 AM CDT 11/15/2024 1:46 AM CDT Vicente Mandujano MD LAB BLOOD OR DERABLES Final Result Performing Organization Address City/[facility] [facility] Co de Phone Number [facility] Department [place] [address] * Phosphorus (11/15/2024 1:31 AM CDT) [facility] Phosphorus, pl 3.8 2.3 - 4.5 mg/dL Blood 11/15/2024 1:31 AM CDT 11/15/2024 1:46 AM CDT Vicente Mandujano MD LAB BLOOD OR DERABLES Final Result Performing Organization Address [facility] Co de Phone Number [facility] Department [place] [address] * Magnesium (11/15/2024 1:31 AM CDT) [facility] Magnesium 1.4 1.4 - 2.5 mg/dL Blood 11/15/2024 1:31 AM CDT 11/15/2024 1:46 AM CDT Vicente Mandujano MD LAB BLOOD OR DERABLES Final Result Performing Organization Address [facility] Co de Phone Number [facility] Department [place] [address] * (ABNORMAL) Basic metabolic panel (11/15/2024 1:31 AM CDT) [facility] Sodium 142 135 - 145 mmol/L Potassium, pl 3.2(L) 3.3 - 4.9 mmol/L [facility] Chloride 110 97 - 110 mmol/L [facility] Comment:Repeated and Verifie d CO2 23 22 - 32 mmol/L [facility] Anion gap 9 2 - 15 mmol/L [facility] BUN 11 6 - 25 mg/dL [facility] Creatinine 0.68 0.60 - 1.10 mg/dL [facility] Glucose 116 70 - 199 mg/dL [facility] Comment: Interpretive Data Fasting glucose >/= 126 mg/dl is diagnostic for diabetes. Fasting is defined as no caloric intake for at least 8 hours. Fasting glucose between 100 mg/dl to 125 mg/dl is diagnostic of prediabetes. In a patient with classic symptoms of hyperglycemia or hyperglycemic crisis, a random glucose >/= 200 mg/dl is diagnostic for diabetes. In the absence of unequivocal hyperglycemia, results should be confirmed by repeat testing. The classification and Diagnosis of Diabetes Diabetes Care 2021; 46: S19-S40. Current interpretive data was last revised 2022. Calcium 7.4(L) 8.5 - 10.3 mg/dL [facility] Blood 11/15/2024 1:31 AM CDT 11/15/2024 1:46 AM CDT [facility]ative [facility] - 11/15/2024 2:20 AM CDT Daily except Saturday and . Morning draw. us Vicente Mandujano MD LAB BLOOD OR DERABLES Final Result [facility] Department [place] [address] * (ABNORMAL) Arterial Blood gas w/Lactate POCT (11/15/2024 1:28 AM CDT) [facility] Lactate POC i-STAT 2.4(H) 0.7 - 2.0 mmol/L pH POC 7.43 7.35 - 7.45 [facility] pCO2, Art POC 29(L) 35 - 45 mmHg [facility] PO2 POC 38(C) 80 - 105 mmHg [facility] CO2, total POC 20 20 - 30 mmol/L [facility] HCO3, POC 19(L) 21 - 30 mmol/L [facility] BE POC -5(L) -2 - 3 mmol/L [facility] O2 sat POC 75(L) 95 - 98 % [facility] Blood 11/15/2024 1:28 AM CDT 11/15/2024 1:28 AM CDT us Katie Hunter MD PhD LAB BLOOD ORDERABLES F inal Result [facility] [place] [address] * (ABNORMAL) Sepsis Lactate w/ Reflex (11/14/2024 10:32 PM CDT) Pathologist [facility] [place] Sepsis Lactate 3.9(H) 0.7 - 2.0 mmol/L Blood 11/14/2024 10:3 2 PM CDT 11/14/2024 10:56 PM CDT Narrative [facility] - 11/14/2024 11:00 PM CDT Obtain Lactate w/ reflex STAT. Lactate result greater than 2 mmol/L is abnormal. Call provider immediately upon receiving abnormal lactate result. If results are abnormal, Bridge will automatically activate two additional lactate levels. One to be drawn 3 hrs after the initial lactate level was drawn. If the second sample is > 2.0, a rule will fire to order an additional Lactate timed 3 hours from the second order's collection time. Vicente Mandujano MD LAB BLOOD OR DERABLES Final Result Performing Organization Address [facility] Co de Phone Number [facility] Department [place] [address] * (ABNORMAL) aPTT (11/14/2024 10:32 PM CDT) [facility] aPTT 19(L) 28 - 38 sec Comment: No clot detected in sample - [id number] - 11/15/24, 1:51 AM Interpretive Data Heparin therapeutic range: 66.0 - 100.0 seconds. Range based on correlation with therapeutic heparin activity range of 0.3 - 0.7 Units/mL. Current interpretive data was last revised on 2023. Blood 11/14/2024 10:3 2 PM CDT 11/14/2024 11:05 PM CDT Vicente Mandujano MD LAB BLOOD OR DERABLES Final Result [facility] [place] [address] * (ABNORMAL) Protime-INR (11/14/2024 10:32 PM CDT) PT 14.6(H) 9.7 - 13.0 sec INR 1.34(H) 0.90 - 1.20 [facility] Comment: Interpretive data Oral anticoagulant therapeutic ranges: Venous thromboembolism prophylaxis or treatment: 2.0-3.0 CARDIOLOGY Standard range: 2.0-3.0 High-intensity range: 2.5-3.5 Refer to indication-specific guidelines for appropriate target ranges for prosthetic heart valve replacement. Current interpretive data was last revised on 2019. Blood 11/14/2024 10:3 2 PM CDT 11/14/2024 11:05 PM CDT Vicente Mandujano MD LAB BLOOD OR DERABLES Final Result Performing Organization Address City/[facility]/ZIP Co de Phone Number [facility] Department [place] [address] * (ABNORMAL) Fibrinogen (11/14/2024 10:32 PM CDT) Pathologist [facility] [place] Fibrinogen 153(L) 170 - 400 mg/dL Blood 11/14/2024 10:3 2 PM CDT 11/14/2024 11:05 PM CDT Vicente Mandujano MD LAB BLOOD OR DERABLES Final Result [facility] [place] [address] * Uric acid (11/14/2024 10:32 PM CDT) Uric acid 2.7 2.5 - 7.0 mg/dL Blood 11/14/2024 10:3 2 PM CDT 11/14/2024 11:37 PM CDT Vicente Mandujano MD LAB BLOOD OR DERABLES Final Result Performing Organization Address [facility] Co de Phone Number [facility] Department [place] [address] * Lactate dehydrogenase (LD) (11/14/2024 10:32 PM CDT) Pathologist [facility] [place] Lactate dehydrogenase (LDH) 185 100 - 250 Units/L Blood 11/14/2024 10:3 2 PM CDT 11/14/2024 11:37 PM CDT Vicente Mandujano MD LAB BLOOD OR DERABLES Final Result Performing Organization Address [facility] de Phone Number [facility] Department [place] [address] * Prepare platelets: 1 Units (11/14/2024 10:09 PM CDT) Pathologist [facility] [place] Product code [id number] Unit Number [id number]- N [facility] Product Blood Type OPOS [facility] Dispense Status PRESUMED TRANSFUSED [facility] Blood Venous blood specimen / Unknown 11/14/2024 10:09 PM CDT 11/14/2024 10:08 PM CDT Narrative [facility] - 11/15/2024 4:01 PM CDT Are special requirements needed? (all products are leukoreduced)->Yes Date required:-[id number] Special Req 1:-Irradiated PLT # of Units:-1-Units Reasons:-Stable, non-bleeding, plt < 10 K/cumm} Marcus Vergara MD BLOOD BANK PRODUCT ORDERABLES F inal Result Performing Organization Address [facility] Co de Phone Number [facility] Department [place] [address] * ECG 12 lead (11/14/2024 8:18 PM CDT) Ventricular Rate EKG/Min 107 BPM [facility] Atrial Rate 107 BPM [facility] [place]-Interval (MSEC) 142 ms [facility] QRS-Interval (MSEC) 86 ms [facility] QT-Interval (MSEC) 370 ms [facility] QTc 493 ms [facility] P [place] 80 degrees [facility] R [place] 71 degrees [facility] T [place] 63 degrees [facility] Diagnosis Sinus tachycardia Otherwise normal ECG Confirmed by Miguel May MD ([id number]) on 11/17/2024 6:40:07 AM [facility] 11/14/2024 8:18 PM CDT 11/17/2024 6:40 AM CDT Vicente Mandujano MD ECG ORDERABL ES Final Result [facility] * XR Chest 1 View (11/14/2024 7:27 PM CDT) Anatomical Region Laterality Modality Body, Chest N/A Computed Radiogr aphy 11/14/2024 7:59 PM CDT Impressions 11/14/2024 7:59 PM CDT Comparison 11/09/2024. Right internal jugular vein central venous catheter tip is in the superior vena cava. The lungs remain clear. There is no consolidation pleural effusion or pneumothorax. The heart size is unchanged. Pericardial fat pad is noted on the right. Electronically signed by: Blayne Swartz M.D. Narrative 11/14/2024 7:59 PM CDT EXAMINATION: 1 view chest radiograph Procedure Note Blayne Swartz MD - 11/14/2024 EXAMINATION: 1 view chest radiograph IMPRESSION: Comparison 11/09/2024. Right internal jugular vein central venous catheter tip is in the superior vena cava. The lungs remain clear. There is no consolidation pleural effusion or pneumothorax. The heart size is unchanged. Pericardial fat pad is noted on the right. Electronically signed by: Blayne Swartz M.D. Olivia Barboza NP IMG XR PROCEDURES Final Result * (ABNORMAL) POC Blood Gas and Chemistries, Arterial - (11/14/2024 6:58 PM CDT) Pathologist [facility] [place] Lactate, POC 4.4(C) 0.7 - 2.0 mmol/L Blood 11/14/2024 6:58 PM CDT 11/14/2024 6:58 PM CDT Vicente Mandujano MD LAB POCT ORD ERABLES - DEVICE Final Result Performing Organization Address [facility] Co de Phone Number [facility] Department [place] [address] * Immature platelet fraction (11/14/2024 6:49 PM CDT) [facility] IPF 1.9 1.6 - 10.1 % Blood 11/14/2024 6:49 PM CDT 11/14/2024 7:20 PM CDT Olivia Barboza NP LAB BLOOD ORDERABLES Final Resul t Performing Organization Address [facility] de Phone Number [facility] Department [place] [address] * eGFR (11/14/2024 6:49 PM CDT) [facility] eGFR 82 >=60 mL/min/1. 73 m2 Comment: Interpretive Data Reference Interval Normal >/= 90 mL/min/1.73m2 Mildly decreased* 60 - 89 mL/min/1.73m2 Mildly to moderately decreased 45 - 59 mL/min/1.73m2 Moderately to severely decreased 30 - 44 mL/min/1.73m2 Severely decreased 15 - 29 mL/min/1.73m2 Kidney Failure < 15 mL/min/1.73m2 *Relative to young adult level Estimated glomerular filtration rate is determined by the 2020 CKD-EPI equation recommended by the National Kidney Foundation (A Unifying Approach to GFR Estimation: Recommendations of the NKF-ASK Task Force on Reassessing the Inclusion of Race in Diagnosing Kidney Disease, JASN 2020). The CKD-EPI equation should not be used for patients with unstable renal function and has not been validated in children and those over 70. Current interpretive data was last reviewed 2021. Blood 11/14/2024 6:49 PM CDT 11/14/2024 7:15 PM CDT us Olivia Babroza NP LAB BLOOD ORDERABLES Final Resul t [facility] Department [place] [address] * (ABNORMAL) Differential, auto (11/14/2024 6:49 PM CDT) Neutrophil abs 0.0(L) 1.5 - 6.5 K/cumm Comment:Critical result call ed to and read back by SURJIT MARTINEZ RN on 11 14 2024 at 1959 to [facility]. Imm gran abs 0.0 0.0 - 0.1 K/cumm [facility] Lymphocyte abs 0.0(L) 0.8 - 3.3 K/cumm [facility] Monocyte abs 0.0(L) 0.2 - 0.8 K/cumm [facility] Eosinophil abs 0.0 0.0 - 0.5 K/cumm [facility] Basophil abs 0.0 0.0 - 0.1 K/cumm [facility] Neutrophil pct 0.0 % [facility] Comment: Interpretive Data Percent cell count reference ranges are not reported, since discordance with absolute values may lead to misinterpretation of CBC data. Current Interpretive Data was last revised on 2017. Imm gran pct 0.0 % [facility] Comment: Interpretive Data Percent cell count reference ranges are not reported, since discordance with absolute values may lead to misinterpretation of CBC data. Current Interpretive Data was last revised on 2017. Lymphocyte pct 100.0 % [facility] Comment: Interpretive Data Percent cell count reference ranges are not reported, since discordance with absolute values may lead to misinterpretation of CBC data. Current Interpretive Data was last revised on 2017. Monocyte pct 0.0 % [facility] Comment: Interpretive Data Percent cell count reference ranges are not reported, since discordance with absolute values may lead to misinterpretation of CBC data. Current Interpretive Data was last revised on 2017. Eosinophil pct 0.0 % [facility] Comment: Interpretive Data Percent cell count reference ranges are not reported, since discordance with absolute values may lead to misinterpretation of CBC data. Current Interpretive Data was last revised on 2017. Basophil pct 0.0 % [facility] Comment: Interpretive Data Percent cell count reference ranges are not reported, since discordance with absolute values may lead to misinterpretation of CBC data. Current Interpretive Data was last revised on 2017. Blood 11/14/2024 6:49 PM CDT 11/14/2024 7:15 PM CDT us Olivia Barboza NP LAB BLOOD ORDERABLES Final Resul t [facility] Department [place] [address] * (ABNORMAL) Urinalysis reflex to microscopic and culture Urine (11/14/2024 6:49 PM CDT) Color, ur Straw Yellow Clarity, ur Clear Clear [facility] Specific gravity, ur 1.013 1.003 - 1.030 [facility] pH, urine 6.5 [facility] Comment: Interpretive Data U rine pH is affected by diet, medications, systemic acid-base disturbances, and renal tubular function. pH may affect urinary stone formation. For example, urine pH below 6.0 may help reduce the tendency for calcium phosphate stones and pH greater than 6.0 may reduce the tendency for uric acid stone formation. Source: [facility] [place] Current Interpretive Data was last revised on 2017 Protein, ur ql Negative Negative [facility] Glucose, ur ql Negative Negative [facility] Ketones, ur Negative Negative [facility] Bilirubin, ur Negative Negative [facility] Blood, ur 1+(A) Negative [facility] Urobilinogen, ur <2.0 <2.0 mg/dL [facility] Nitrite, ur Negative Negative [facility] Leukocyte esterase, ur Negative Negative [facility] UA reflex comment Reflex to microscopic UA will be performed. [facility] Urine 11/14/2024 6:49 PM CDT 11/14/2024 7:27 PM CDT us Olivia Barboza NP LAB MICROBIOLOGY - GENERAL ORDER DAWSON Final Result [facility] Department [place] [address] * Respiratory pathogen panel Nasopharyngeal (11/14/2024 6:49 PM CDT) Pathologist [facility] [place] Influenza A RNA Not Detected Not Detected Influenza B RNA Not Detected Not Detected [facility] RSV RNA Not Detected Not Detected [facility] COVID-19 RNA Not Detected Not Detected [facility] Coronavirus 229E RNA Not Detected Not Detected [facility] Coronavirus HKU1 RNA Not Detected Not Detected [facility] Coronavirus NL63 RNA Not Detected Not Detected [facility] Coronavirus OC43 RNA Not Detected Not Detected [facility] Adenovirus DNA Not Detected Not Detected [facility] Metapneumovirus RNA Not Detected Not Detected [facility] Rhinovirus/Enterov irus RNA Not Detected Not Detected [facility] Parainfluenza 1 RNA Not Detected Not Detected [facility] Parainfluenza 2 RNA Not Detected Not Detected [facility] Parainfluenza 3 RNA Not Detected Not Detected [facility] Parainfluenza 4 RNA Not Detected Not Detected [facility] B. pertussis DNA Not Detected Not Detected [facility] B. parapertussis DNA Not Detected Not Detected [facility] C. pneumoniae DNA Not Detected Not Detected [facility] M. pneumoniae DNA Not Detected Not Detected [facility] Nasopharyngeal 11/14/2024 6: 49 PM CDT 11/14/2024 7:09 PM CDT [facility] - 11/14/2024 8:08 PM CDT Is the Patient experiencing symptoms consistent with COVID?->Yes Surveillance testing for transplant patient?->No Interpretive Data The [employer] FilmArray Respiratory Panel (RP2.1) assay is a multiplexed real-time PCR based nucleic acid test capable of simultaneous qualitative detection and identification of multiple respiratory viral and bacterial nucleic acids, including SARS Coronavirus 2 (the causative agent of COVID-19). The following bacteria, viruses and virus subtypes can be identified using the FilmArray RP2.1 assay: Bordetella pertussis, Bordetella parapertussis, Chlamydia pneumoniae, Mycoplasma pneumoniae, Adenovirus, SARS Coronavirus 2, seasonal coronaviruses (Coronavirus HKU1, Coronavirus NL63, Coronavirus 229E, and Coronavirus OC43), Influenza A, Influenza A subtype H1, Influenza A subtype H3, Influenza A subtype 2009 H1, Influenza B, Metapneumovirus, Parainfluenza 1, Parainfluenza 2, Parainfluenza 3, Parainfluenza 4, RSV, Rhinovirus/Enterovirus. Due to the genetic similarity between human Rhinovirus and Enterovirus, the FilmArray RP2.1 assay cannot reliably differentiate them. Coronavirus OC43 may cross-react with some isolates of Coronavirus HKU1. A dual positive result may be due to cross-reactivity or may indicate a co- infection. The detection and identification of specific viral and bacterial nucleic acids from individuals exhibiting signs and symptoms of a respiratory infection aids in the diagnosis of respiratory infection if used in conjunction with other clinical and epidemiological information. The results of this test should not be used as the sole basis for diagnosis, treatment, or other management decisions. Negative results in the setting of a respiratory illness may be due to infection with pathogens that are not detected by this test. Positive results do not rule out infection/co-infection with other organisms. The agent(s) detected by the FilmArray RP2.1 may not be the definite cause of disease. Additional testing (lab, imaging, etc.) may be necessary when evaluating a patient with possible respiratory tract infection. The FilmArray RP2.1 assay has FDA clearance for testing of FOOD WRITER swabs. The performance of additional specimen types has been assessed by the performing laboratory. The performance characteristics of this assay have been determined by [facility]. Current interpretive data was last revised on 22. Olivia Barboza NP LAB MICROBIOLOGY - GENERAL ORDER DAWSON Final Result [facility] Department [place] [address] * (ABNORMAL) CBC with auto differential (11/14/2024 6:49 PM CDT) [facility] WBC 0.0(C) 3.8 - 9.9 K/cumm Comment:Critical result call ed to and read back by SURJIT MARTINEZ RN on 11 14 2024 at 1959 to [facility]. Hgb 9.8(L) 11.9 - 15.5 g/dL [facility] Hct 27.7(L) 35.6 - 45.5 % [facility] Plt 9(C) 150 - 400 K/cumm [facility] Comment:Critical result call ed to and read back by SURJIT MARTINEZ RN on 11 14 2024 at 1959 to [facility]. MPV 11.1 9.1 - 12.3 fL [facility] RBC 3.17(L) 3.90 - 5.20 M/cumm [facility] MCV 87.4 81.3 - 96.4 fL [facility] MCH 30.9 27.1 - 33.3 pg [facility] MCHC 35.4 32.3 - 35.7 g/dL [facility] RDW CV 17.3(H) 11.1 - 14.9 % [facility] RDW SD 54.9(H) 35.7 - 48.1 fL [facility] NRBC abs 0.00 0.00 - 0.01 K/cumm [facility] Blood 11/14/2024 6:49 PM CDT 11/14/2024 7:15 PM CDT Olivia Barboza NP LAB BLOOD ORDERABLES Final Resul t [facility] Department [place] [address] * (ABNORMAL) Blood culture Blood (11/14/2024 6:49 PM CDT) [facility] Direct Specimen Exam Molecular Analysis: Pseudomonas aeruginosa detected by rosemary ePlex BCID-GN panel. This test does not exclude the possibility of a mixed bacterial infection. Notification of: Pseudomonas aeruginosa called to and read back by: Katie Hunter MD [phone] on 11/15/2024 14:19:46 by: Brittany Sanchez [place] Direct Specimen Exam Stain: Gram Negative Bacilli Time to culture positivity (aerobic media): 15.4 hours Notification of: Gram Negative Bacilli called to and read back by: Katie Hunter MD [phone] on 11/15/2024 12:33:02 by: Brittany Sanchez MT [facility] Report Final Report: Pseudomonas aeruginosa (.) [facility] Organism PSEUDOMONAS AERUGINOSA [facility] Blood 11/14/2024 6:49 PM CDT 11/14/2024 8:14 PM CDT Narrative [facility] - 11/19/2024 12:42 PM CDT 1. Blood cultures are incubated for 4 days on a continuously monitored blood culture system. The first report of a negative culture is issued within 24 hours of receipt of the specimen in the laboratory. 2. Positive culture results are reported as soon as they are detected. 3. The most important factor for detection of microbes in the setting of bloodstream infection is the volume of blood submitted for culture. Failure to collect an optimal blood volume can result in false negative blood cultures. 4. For pediatric patients, the recommended blood volume to collect follows a weight based strategy. See the electronic test catalog for collection instructions. 5. For positive blood cultures, a rapid molecular test may be performed for organism identification using the rosemary ePlex blood culture identification panel for gram positive (BCID-GP) and gram negative (BCID-GN) organisms. This nucleic acid amplification test detects microbial DNA in positive blood culture broth. This assay has been cleared by the [place] Food and Drug Administration and its performance characteristics have been verified by the [facility] Microbiology Laboratory. For questions about this culture, contact the Microbiology Laboratory at [phone]. Interpretive data was last revised on 24. Organism Antibiotic Method Susceptibility Pseudomonas aeruginosa Aztreonam INTERPRETATION Susceptible Pseudomonas aeruginosa Ceftazidime INTERPRETATION Susceptible Pseudomonas aeruginosa Ciprofloxacin INTERPRETATION Susceptible Pseudomonas aeruginosa Cefepime INTERPRETATION Susceptible Pseudomonas aeruginosa Imipenem INTERPRETATION Susceptible Pseudomonas aeruginosa Meropenem INTERPRETATION Susceptible Pseudomonas aeruginosa Piperacillin/Tazobactam INTERPR ETATION Susceptible Pseudomonas aeruginosa Tobramycin INTERPRETATION Susceptible Olivia Barboza NP LAB MICROBIOLOGY - GENERAL ORDER DAWSON Final Result [facility] Department [place] [address] * Blood culture Blood (11/14/2024 6:49 PM CDT) Report Final Report: No growth Blood 11/14/2024 6:49 PM CDT 11/14/2024 8:14 PM CDT Narrative [facility] - 11/19/2024 7:00 AM CDT 1. Blood cultures are incubated for 4 days on a continuously monitored blood culture system. The first report of a negative culture is issued within 24 hours of receipt of the specimen in the laboratory. 2. Positive culture results are reported as soon as they are detected. 3. The most important factor for detection of microbes in the setting of bloodstream infection is the volume of blood submitted for culture. Failure to collect an optimal blood volume can result in false negative blood cultures. 4. For pediatric patients, the recommended blood volume to collect follows a weight based strategy. See the electronic test catalog for collection instructions. 5. For positive blood cultures, a rapid molecular test may be performed for organism identification using the rosemary ePlex blood culture identification panel for gram positive (BCID-GP) and gram negative (BCID-GN) organisms. This nucleic acid amplification test detects microbial DNA in positive blood culture broth. This assay has been cleared by the [place] Food and Drug Administration and its performance characteristics have been verified by the [facility] Microbiology Laboratory. For questions about this culture, contact the Microbiology Laboratory at [phone]. Interpretive data was last revised on 24. [facility] [facility] MICROBIOLOGY - GENERAL ORDER DAWSON Final Result Performing Organization Address City/[facility] [place] [address] * (ABNORMAL) Urinalysis, microscopic only (11/14/2024 6:49 PM CDT) Pathologist [facility] [place] WBC, ur 0-5 0 - 5 /HPF RBC, ur 3-5(A) 0 - 2 /HPF [facility] Epithelial cells, squamous, ur 1-5 0 - 5 /HPF [facility] Mucous, ur Present(A) [facility] Culture Reflex Comment Reflex conditions for urine culture (WBC >10) not met. [facility] Urine 11/14/2024 6:49 PM CDT 11/14/2024 7:27 PM CDT [facility] [facility] LAB URINE ORDERABLES Final Resul t Performing Organization Address [facility] Co de Phone Number [facility] [place] [address] * Type and screen (11/14/2024 6:49 PM CDT) [facility] ABO Rh A Positive Bing, indirect Negative [facility] Blood 11/14/2024 6:49 PM CDT 11/14/2024 7:08 PM CDT Narrative [facility] - 11/14/2024 7:58 PM CDT Has the patient had Daratumumab or Isatuximab in the past 6 months?->Unknown Olivia [facility] LAB BLOOD BANK TEST ORDERABLES F inal Result Performing Organization Address [facility] [place] [address] * Phosphorus (11/14/2024 6:49 PM CDT) Pathologist [facility] [place] Phosphorus, pl 2.4 2.3 - 4.5 mg/dL Blood 11/14/2024 6:49 PM CDT 11/14/2024 7:15 PM CDT [facility] [employer] LAB BLOOD ORDERABLES Final Resul t Performing Organization Address [facility] de Phone Number [facility] [place] [address] * Magnesium (11/14/2024 6:49 PM CDT) Pathologist [facility] [place] Magnesium 1.4 1.4 - 2.5 mg/dL Blood 11/14/2024 6:49 PM CDT 11/14/2024 7:15 PM CDT [facility] LAB BLOOD ORDERABLES Final Resul t Performing Organization Address [facility] Phone Number [facility] [place] [address] * (ABNORMAL) Bilirubin, direct (11/14/2024 6:49 PM CDT) Pathologist [facility] [place] Bilirubin, direct 0.5(H) 0.1 - 0.3 mg/dL Blood 11/14/2024 6:49 PM CDT 11/14/2024 7:15 PM CDT [facility] LAB BLOOD ORDERABLES Final Resul t Performing Organization Address [facility] [place] [address] * (ABNORMAL) Comprehensive metabolic panel (11/14/2024 6:49 PM CDT) Pathologist [facility] [place] Sodium 137 135 - 145 mmol/L Potassium, pl 3.4 3.3 - 4.9 mmol/L [facility] Chloride 99 97 - 110 mmol/L [facility] Comment:Repeated and Verifie d CO2 24 22 - 32 mmol/L [facility] Anion gap 14 2 - 15 mmol/L [facility] BUN 12 6 - 25 mg/dL [facility] Creatinine 0.82 0.60 - 1.10 mg/dL [facility] Glucose 121 70 - 199 mg/dL [facility] Comment: Interpretive Data Fasting glucose >/= 126 mg/dl is diagnostic for diabetes. Fasting is defined as no caloric intake for at least 8 hours. Fasting glucose between 100 mg/dl to 125 mg/dl is diagnostic of prediabetes. In a patient with classic symptoms of hyperglycemia or hyperglycemic crisis, a random glucose >/= 200 mg/dl is diagnostic for diabetes. In the absence of unequivocal hyperglycemia, results should be confirmed by repeat testing. The classification and Diagnosis of Diabetes Diabetes Care 2021; 46: S19-S40. Current interpretive data was last revised 2022. Calcium 8.8 8.5 - 10.3 mg/dL [facility] Bilirubin, total 1.8(H) 0.1 - 1.2 mg/dL [facility] Protein, pl 6.1(L) 6.5 - 8.5 g/dL [facility] Albumin 3.7 3.5 - 5.0 g/dL [facility] Alk phos 152(H) 40 - 130 Units/L [facility] ALT 35 7 - 45 Units/L [facility] AST 25 10 - 45 Units/L [facility] Blood 11/14/2024 6:49 PM CDT 11/14/2024 7:15 PM CDT Olivia Barboza NP LAB BLOOD ORDERABLES Final Resul t [facility] One [facility] [place] [address] * eGFR (11/13/2024 8:34 AM CDT) eGFR >90 >=60 mL/min/1. 73 m2 Comment: Interpretive Data Reference Interval Normal >/= 90 mL/min/1.73m2 Mildly decreased* 60 - 89 mL/min/1.73m2 Mildly to moderately decreased 45 - 59 mL/min/1.73m2 Moderately to severely decreased 30 - 44 mL/min/1.73m2 Severely decreased 15 - 29 mL/min/1.73m2 Kidney Failure < 15 mL/min/1.73m2 *Relative to young adult level Estimated glomerular filtration rate is determined by the 2020 CKD-EPI equation recommended by the National Kidney Foundation (A Unifying Approach to GFR Estimation: Recommendations of the NKF-ASK Task Force on Reassessing the Inclusion of Race in Diagnosing Kidney Disease, JASN 2020). The CKD-EPI equation should not be used for patients with unstable renal function and has not been validated in children and those over 70. Current interpretive data was last reviewed 2021. Blood 11/13/2024 8:34 AM CDT 11/13/2024 8:39 AM CDT Vicente Mandujano MD LAB BLOOD OR DERABLES Final Result DAVID GARCÍA One [facility] Department [place] [address] * (ABNORMAL) CBC with auto differential (11/13/2024 8:34 AM CDT) WBC 0.1(C) 3.8 - 9.9 K/cumm Comment: Critical Result WBC:0.1 Called to and read back by TREV FRANCES RN at: 11/13/2024 10:40:17 by:[email or web address] Testing performed by: [facility], [address] [place] [phone] Hgb 10.4(L) 11.9 - 15.5 g/dL DAVID GARCÍA Comment:Testing performed by : [facility], [address] [place] [phone] Hct 30.4(L) 35.6 - 45.5 % DAVID GARCÍA Comment:Testing performed by : [facility], [address] [place] [phone] Plt 24(L) 150 - 400 K/cumm DAVID GARCÍA Comment:Testing performed by : [facility], [address] [place], [place] [phone] MPV 7.3 6.8 - 10.4 fL DAVID GARCÍA Comment:Testing performed by : [facility], [address] [place] [address] RBC 3.31(L) 3.90 - 5.20 M/cumm DAVID GARCÍA Comment:Testing performed by : [facility], [address] [place], [place] [phone] MCV 91.7 81.3 - 96.4 fL DAVID GARCÍA Comment:Testing performed by : [facility], [address] [place], [place] [phone] MCH 31.3 27.1 - 33.3 pg DAVID GARCÍA Comment:Testing performed by : [facility], [address] [place] [address] MCHC 34.2 32.3 - 35.7 g/dL DAVID GARCÍA Comment:Testing performed by : [facility], [address] [place] [address] RDW CV 20.3(H) 11.1 - 14.9 % [facility]ID [facility] Comment:Testing performed by : [facility], [address] [place] [address] NRBC abs n/a 0.00 - 0.01 K/cumm DAVID [facility] Comment:Testing performed by : [facility], [address] [place] [address] Blood 11/13/2024 8:34 AM CDT 11/13/2024 8:37 AM CDT us Vicente Mandujano MD LAB BLOOD OR DERABLES Final Result DAVDI GARCÍA One [facility] Department [place] [address] * (ABNORMAL) Manual Differential (11/13/2024 8:34 AM CDT) Cells Counted 25 Comment:Testing performed by : [facility], [address] [place], [place] [phone] Neutrophil abs 0.1(L) 1.5 - 6.5 K/cumm [facility] Comment:Testing performed by : [facility], [address] [place], [place] [phone] Lymphocyte abs 0.0(L) 0.8 - 3.3 K/cumm [facility] Comment:Testing performed by : [facility], [address] [place] [phone] Monocyte abs 0.0(L) 0.2 - 0.8 K/cumm [facility] Comment:Testing performed by : [facility], [address] [place], [place] [id number] Eosinophil abs 0.0 0.0 - 0.5 K/cumm [facility] Comment:Testing performed by : [facility], [address] [place], [place] [id number] Basophil abs 0.0 0.0 - 0.1 K/cumm [facility] Comment:Testing performed by : [facility], [address] [place], [place] [phone] Neutrophil pct 56.0 % [facility] Comment: Interpretive Data Percent cell count reference ranges are not reported, since discordance with absolute values may lead to misinterpretation of CBC data. Current Interpretive Data was last revised on 2017. Testing performed by: [facility], [address] [place], [place] [phone] Lymphocyte pct 40.0 % [facility] Comment: Interpretive Data Percent cell count reference ranges are not reported, since discordance with absolute values may lead to misinterpretation of CBC data. Current Interpretive Data was last revised on 2017. Testing performed by: [facility], [address] [place], [place] [phone] Monocyte pct 0.0 % [facility] Comment: Interpretive Data Percent cell count reference ranges are not reported, since discordance with absolute values may lead to misinterpretation of CBC data. Current Interpretive Data was last revised on 2017. Testing performed by: [facility], [address] [place] [phone] Eosinophil pct 4.0 % [facility] Comment: Interpretive Data Percent cell count reference ranges are not reported, since discordance with absolute values may lead to misinterpretation of CBC data. Current Interpretive Data was last revised on 2017. Testing performed by: [facility], [address] [place] [phone] Basophil pct 0.0 % [facility] Comment: Interpretive Data Percent cell count reference ranges are not reported, since discordance with absolute values may lead to misinterpretation of CBC data. Current Interpretive Data was last revised on 2017. Testing performed by: [facility], [address] [place] [phone] Anisocytosis 1+(A) [facility] Comment:Testing performed by : [facility], [address] [place], [place] [phone] Poikilocytosis 1+(A) [facility] Comment:Testing performed by : [facility], [address] [place], [place] [phone] Macrocytes 1+(A) [facility] Comment:Testing performed by : [facility], [address] [place] [phone] Elliptocytes 1+(A) [facility] Comment:Testing performed by : [facility], [address] [place] [phone] Platelet estimate Decreased (A) [facility] Comment:Testing performed by : [facility], [address] [place] [phone] Blood 11/13/2024 8:34 AM CDT 11/13/2024 8:37 AM CDT Vicente Mandujano MD LAB BLOOD OR DERABLES Final Result [facility] One [facility] Department [place] [address] * Type and screen (11/13/2024 8:34 AM CDT) ABO Rh A Positive Bing, indirect Negative [facility] Blood 11/13/2024 8:34 AM CDT 11/13/2024 9:09 AM CDT Narrative [facility] - 11/13/2024 10:08 AM CDT Has the patient had Daratumumab or Isatuximab in the past 6 months?->No Vicente Mandujano MD LAB BLOOD BA NK TEST ORDERABLES Final Result Performing Organization Address City/[facility]/ZIP Co de Phone Number [facility] Department [place] [address] * Uric acid (11/13/2024 8:34 AM CDT) Pathologist [facility] [place] Uric acid 2.7 2.5 - 7.0 mg/dL Blood 11/13/2024 8:34 AM CDT 11/13/2024 8:39 AM CDT Vicente Mandujano MD LAB BLOOD OR DERABLES Final Result Performing Organization Address City/[facility]/ZIP Co de Phone Number [facility] Department [place] [address] * Lactate dehydrogenase (LD) (11/13/2024 8:34 AM CDT) Lactate dehydrogenase (LDH) 247 100 - 250 Units/L Blood 11/13/2024 8:3 4 AM CDT 11/13/2024 8:39 AM CDT Vicente Mandujano MD LAB BLOOD OR DERABLES Final Result Performing Organization Address City/[facility]/ZIP Co de Phone Number [facility] Department [place] [address] * (ABNORMAL) Comprehensive metabolic panel (11/13/2024 8:34 AM CDT) Sodium 142 135 - 145 mmol/L Potassium, pl 3.3 3.3 - 4.9 mmol/L [facility] Chloride 106 97 - 110 mmol/L [facility] CO2 25 22 - 32 mmol/L [facility] Anion gap 11 2 - 15 mmol/L [facility] BUN 13 6 - 25 mg/dL [facility] Creatinine 0.72 0.60 - 1.10 mg/dL [facility] Glucose 96 70 - 199 mg/dL [facility] Comment: Interpretive Data Fasting glucose >/= 126 mg/dl is diagnostic for diabetes. Fasting is defined as no caloric intake for at least 8 hours. Fasting glucose between 100 mg/dl to 125 mg/dl is diagnostic of prediabetes. In a patient with classic symptoms of hyperglycemia or hyperglycemic crisis, a random glucose >/= 200 mg/dl is diagnostic for diabetes. In the absence of unequivocal hyperglycemia, results should be confirmed by repeat testing. The classification and Diagnosis of Diabetes Diabetes Care 2021; 46: S19-S40. Current interpretive data was last revised 2022. Calcium 8.6 8.5 - 10.3 mg/dL [facility] Bilirubin, total 2.2(H) 0.1 - 1.2 mg/dL [facility] Protein, pl 5.8(L) 6.5 - 8.5 g/dL [facility] Albumin 3.6 3.5 - 5.0 g/dL [facility] Alk phos 144(H) 40 - 130 Units/L [facility] ALT 28 7 - 45 Units/L [facility] AST 27 10 - 45 Units/L [facility] Blood 11/13/2024 8:34 AM CDT 11/13/2024 8:39 AM CDT Vicente Mandujano MD LAB BLOOD OR DERABLES Final Result [facility] One [facility] Department [place] [address] * Transfuse RBC (11/11/2024 6:11 AM CDT) Blood Marcus Vergara MD BLOOD TRANSFUSION ORDERABLES Fi nal Result Performing Organization Address [facility] Co de Phone Number [facility] [place] [address] * Prepare RBC: 1 Units (11/11/2024 1:51 AM CDT) Pathologist [facility] [place] Product code [id number] Unit Number [id number] [facility] Product Blood Type APOS [facility] Dispense Status PRESUMED TRANSFUSED [facility] Blood Venous blood specimen / Unknown 11/11/2024 1:51 AM CDT 11/11/2024 1:50 AM CDT Narrative [facility] - 11/11/2024 4:01 PM CDT Are special requirements needed? (All products are leukoreduced and CMV- safe)- >Yes Date required:-[id number] Special Req 1:-Irradiated LRRBC # of [id number] Reasons:-BMT, Hgb <8 g/dL} Marcus Vergara MD BLOOD BANK PRODUCT ORDERABLES F inal Result Performing Organization Address [facility] Co de Phone Number [facility] Department [place] [address] * eGFR (11/11/2024 12:40 AM CDT) Pathologist [facility] [place] eGFR >90 >=60 mL/min/1. 73 m2 Comment: Interpretive Data Reference Interval Normal >/= 90 mL/min/1.73m2 Mildly decreased* 60 - 89 mL/min/1.73m2 Mildly to moderately decreased 45 - 59 mL/min/1.73m2 Moderately to severely decreased 30 - 44 mL/min/1.73m2 Severely decreased 15 - 29 mL/min/1.73m2 Kidney Failure < 15 mL/min/1.73m2 *Relative to young adult level Estimated glomerular filtration rate is determined by the 2020 CKD-EPI equation recommended by the National Kidney Foundation (A Unifying Approach to GFR Estimation: Recommendations of the NKF-ASK Task Force on Reassessing the Inclusion of Race in Diagnosing Kidney Disease, JASN 2020). The CKD-EPI equation should not be used for patients with unstable renal function and has not been validated in children and those over 70. Current interpretive data was last reviewed 2021. Blood 11/11/2024 12:4 0 AM CDT 11/11/2024 1:12 AM CDT us Mervat Garber MD LAB BLOOD ORDERA BLES Final Result Performing Organization Address City/[facility]/ZIP Co de Phone Number [facility] Department [place] [address] * (ABNORMAL) Manual Differential (11/11/2024 12:40 AM CDT) Differential Manual Cells Counted 115 [facility] Neutrophil abs 4.8 1.5 - 6.5 K/cumm [facility] Imm gran abs 0.0 0.0 - 0.1 K/cumm [facility] Lymphocyte abs 0.0(L) 0.8 - 3.3 K/cumm [facility] Monocyte abs 0.0(L) 0.2 - 0.8 K/cumm [facility] Neutrophil pct 100.0 % [facility] Comment: Interpretive Data Percent cell count reference ranges are not reported, since discordance with absolute values may lead to misinterpretation of CBC data. Current Interpretive Data was last revised on 2017. RBC morphology Normal [facility] Platelet estimate Decreased( A) [facility] Blood 11/11/2024 12:4 0 AM CDT 11/11/2024 1:13 AM CDT us Mervat Garber MD LAB BLOOD ORDERA BLES Edited Result - Final Performing Organization Address City/[facility]/ZIP Co de Phone Number [facility] Department [place] [address] * (ABNORMAL) CBC without differential (11/11/2024 12:40 AM CDT) Pathologist [facility] [place] WBC 4.8 3.8 - 9.9 K/cumm Hgb 7.6(L) 11.9 - 15.5 g/dL [facility] Hct 23.1(L) 35.6 - 45.5 % [facility] Plt 76(L) 150 - 400 K/cumm [facility] MPV 9.7 9.1 - 12.3 fL [facility] RBC 2.48(L) 3.90 - 5.20 M/cumm [facility] MCV 93.1 81.3 - 96.4 fL [facility] MCH 30.6 27.1 - 33.3 pg [facility] MCHC 32.9 32.3 - 35.7 g/dL [facility] RDW CV 19.7(H) 11.1 - 14.9 % [facility] RDW SD 66.2(H) 35.7 - 48.1 fL [facility] NRBC abs 0.00 0.00 - 0.01 K/cumm [facility] Blood 11/11/2024 12:4 0 AM CDT 11/11/2024 1:13 AM CDT us Mervat Garber MD LAB BLOOD ORDERA BLES Final Result Performing Organization Address City/[facility] Co de Phone Number [facility] One [facility] Department [place] [address] * Phosphorus (11/11/2024 12:40 AM CDT) Pathologist [facility] [place] Phosphorus, pl 3.3 2.3 - 4.5 mg/dL Blood 11/11/2024 12:4 0 AM CDT 11/11/2024 1:12 AM CDT Mervat Garber MD LAB BLOOD ORDERA BLES Final Result [facility] Department [place] [address] * Magnesium (11/11/2024 12:40 AM CDT) Pathologist [facility] [place] Magnesium 1.6 1.4 - 2.5 mg/dL Blood 11/11/2024 12:4 0 AM CDT 11/11/2024 1:12 AM CDT us Ying José MD LAB BLOOD ORDERABLES Final Result Performing Organization Address [facility] Co de Phone Number [facility] [place] [address] * (ABNORMAL) Hepatic function panel (11/11/2024 12:40 AM CDT) [facility] Bilirubin, total 1.5(H) 0.1 - 1.2 mg/dL Bilirubin, direct 0.4(H) 0.1 - 0.3 mg/dL [facility] Protein, pl 4.8(L) 6.5 - 8.5 g/dL [facility] Albumin 2.7(L) 3.5 - 5.0 g/dL [facility] Alk phos 149(H) 40 - 130 Units/L [facility] ALT 22 7 - 45 Units/L [facility] AST 21 10 - 45 Units/L [facility] Blood 11/11/2024 12:4 0 AM CDT 11/11/2024 1:12 AM CDT Mervat Garber MD LAB BLOOD ORDERA BLES Final Result Performing Organization Address City/[facility]/ZIP Co de Phone Number [facility] Department [place] [address] * (ABNORMAL) Basic metabolic panel (11/11/2024 12:40 AM CDT) Pathologist [facility] [place] Sodium 144 135 - 145 mmol/L Potassium, pl 3.3 3.3 - 4.9 mmol/L [facility] Chloride 111(H) 97 - 110 mmol/L [facility] CO2 24 22 - 32 mmol/L [facility] Anion gap 9 2 - 15 mmol/L [facility] BUN 12 6 - 25 mg/dL [facility] Creatinine 0.56(L) 0.60 - 1.10 mg/dL [facility] Glucose 87 70 - 199 mg/dL [facility] Comment: Interpretive Data Fasting glucose >/= 126 mg/dl is diagnostic for diabetes. Fasting is defined as no caloric intake for at least 8 hours. Fasting glucose between 100 mg/dl to 125 mg/dl is diagnostic of prediabetes. In a patient with classic symptoms of hyperglycemia or hyperglycemic crisis, a random glucose >/= 200 mg/dl is diagnostic for diabetes. In the absence of unequivocal hyperglycemia, results should be confirmed by repeat testing. The classification and Diagnosis of Diabetes Diabetes Care 2021; 46: S19-S40. Current interpretive data was last revised 2022. Calcium 7.6(L) 8.5 - 10.3 mg/dL [facility] Blood 11/11/2024 12:4 0 AM CDT 11/11/2024 1:12 AM CDT Narrative [facility] - 11/11/2024 1:55 AM CDT Daily except Saturday and . Morning draw. Mervat Garber MD LAB BLOOD ORDERA BLES Final Result [facility] Department [place] [address] * eGFR (11/10/2024 12:22 AM CDT) eGFR >90 >=60 mL/min/1. 73 m2 Comment: Interpretive Data Reference Interval Normal >/= 90 mL/min/1.73m2 Mildly decreased* 60 - 89 mL/min/1.73m2 Mildly to moderately decreased 45 - 59 mL/min/1.73m2 Moderately to severely decreased 30 - 44 mL/min/1.73m2 Severely decreased 15 - 29 mL/min/1.73m2 Kidney Failure < 15 mL/min/1.73m2 *Relative to young adult level Estimated glomerular filtration rate is determined by the 2020 CKD-EPI equation recommended by the National Kidney Foundation (A Unifying Approach to GFR Estimation: Recommendations of the NKF-ASK Task Force on Reassessing the Inclusion of Race in Diagnosing Kidney Disease, JASN 202). The CKD-EPI equation should not be used for patients with unstable renal function and has not been validated in children and those over 70. Current interpretive data was last reviewed 2021. Blood 11/10/2024 12:2 2 AM CDT 11/10/2024 12:32 AM CDT Mervat Garber MD LAB BLOOD ORDERA BLES Final Result [facility] One [facility] Department [place] [address] * (ABNORMAL) Manual Differential (11/10/2024 12:22 AM CDT) Differential Manual Cells Counted 115 [facility] Neutrophil abs 18.5(H) 1.5 - 6.5 K/cumm [facility] Imm gran abs 0.0 0.0 - 0.1 K/cumm [facility] Lymphocyte abs 0.2(L) 0.8 - 3.3 K/cumm [facility] Monocyte abs 0.0(L) 0.2 - 0.8 K/cumm [facility] Neutrophil pct 99.1 % [facility] Comment: Interpretive Data Percent cell count reference ranges are not reported, since discordance with absolute values may lead to misinterpretation of CBC data. Current Interpretive Data was last revised on 2017. Lymphocyte pct 0.9 % [facility] Comment: Interpretive Data Percent cell count reference ranges are not reported, since discordance with absolute values may lead to misinterpretation of CBC data. Current Interpretive Data was last revised on 2017. RBC morphology Present(A) [facility] Anisocytosis Slight(A) [facility] Macrocytes 3-7/HPF(A) [facility] Platelet estimate Decreased( A) [facility] Blood 11/10/2024 12:2 2 AM CDT 11/10/2024 12:32 AM CDT Mervat Garber MD LAB BLOOD ORDERA BLES Edited Result - Final Performing Organization Address City/[facility]/ZIP Co de Phone Number [facility] Department [place] [address] * (ABNORMAL) CBC without differential (11/10/2024 12:22 AM CDT) WBC 18.7(H) 3.8 - 9.9 K/cumm Hgb 8.2(L) 11.9 - 15.5 g/dL [facility] Hct 24.8(L) 35.6 - 45.5 % [facility] Plt 120(L) 150 - 400 K/cumm [facility] MPV 9.8 9.1 - 12.3 fL [facility] RBC 2.71(L) 3.90 - 5.20 M/cumm [facility] MCV 91.5 81.3 - 96.4 fL [facility] MCH 30.3 27.1 - 33.3 pg [facility] MCHC 33.1 32.3 - 35.7 g/dL [facility] RDW CV 19.9(H) 11.1 - 14.9 % [facility] RDW SD 65.1(H) 35.7 - 48.1 fL [facility] NRBC abs 0.00 0.00 - 0.01 K/cumm [facility] Blood 11/10/2024 12:2 2 AM CDT 11/10/2024 12:32 AM CDT us Mervat Garber MD LAB BLOOD ORDERA BLES Final Result Performing Organization Address City/[facility]/ZIP Co de Phone Number [facility] Department [place] [address] * Phosphorus (11/10/2024 12:22 AM CDT) Pathologist [facility] [place] Phosphorus, pl 3.1 2.3 - 4.5 mg/dL Blood 11/10/2024 12:2 2 AM CDT 11/10/2024 12:32 AM CDT Mervat Garber MD LAB BLOOD [place] [address] * (ABNORMAL) Hepatic function panel (11/10/2024 12:22 AM CDT) [facility] Bilirubin, total 1.0 0.1 - 1.2 mg/dL Bilirubin, direct 0.3 0.1 - 0.3 mg/dL [facility] Protein, pl 4.8(L) 6.5 - 8.5 g/dL [facility] Albumin 2.9(L) 3.5 - 5.0 g/dL [facility] Alk phos 167(H) 40 - 130 Units/L [facility] ALT 28 7 - 45 Units/L [facility] AST 26 10 - 45 Units/L [facility] Blood 11/10/2024 12:2 2 AM CDT 11/10/2024 12:32 AM CDT Mervat Garber MD LAB BLOOD [place] [address] * (ABNORMAL) Basic metabolic panel (11/10/2024 12:22 AM CDT) Sodium 143 135 - 145 mmol/L Potassium, pl 3.3 3.3 - 4.9 mmol/L [facility] Chloride 110 97 - 110 mmol/L [facility] CO2 26 22 - 32 mmol/L [facility] Anion gap 7 2 - 15 mmol/L [facility] BUN 13 6 - 25 mg/dL [facility] Creatinine 0.69 0.60 - 1.10 mg/dL [facility] Glucose 90 70 - 199 mg/dL [facility] Comment: Interpretive Data Fasting glucose >/= 126 mg/dl is diagnostic for diabetes. Fasting is defined as no caloric intake for at least 8 hours. Fasting glucose between 100 mg/dl to 125 mg/dl is diagnostic of prediabetes. In a patient with classic symptoms of hyperglycemia or hyperglycemic crisis, a random glucose >/= 200 mg/dl is diagnostic for diabetes. In the absence of unequivocal hyperglycemia, results should be confirmed by repeat testing. The classification and Diagnosis of Diabetes Diabetes Care 2021; 46: S19-S40. Current interpretive data was last revised 2022. Calcium 7.5(L) 8.5 - 10.3 mg/dL [facility] Blood 11/10/2024 12:2 2 AM CDT 11/10/2024 12:32 AM CDT Narrative [facility] - 11/10/2024 1:03 AM CDT Daily except Saturday and . Morning draw. Mervat Garber MD LAB BLOOD ORDERA BLES Final Result [facility] Department [place] [address] * eGFR (11/09/2024 3:29 PM CDT) eGFR >90 >=60 mL/min/1. 73 m2 Comment: Interpretive Data Reference Interval Normal >/= 90 mL/min/1.73m2 Mildly decreased* 60 - 89 mL/min/1.73m2 Mildly to moderately decreased 45 - 59 mL/min/1.73m2 Moderately to severely decreased 30 - 44 mL/min/1.73m2 Severely decreased 15 - 29 mL/min/1.73m2 Kidney Failure < 15 mL/min/1.73m2 *Relative to young adult level Estimated glomerular filtration rate is determined by the 2020 CKD-EPI equation recommended by the National Kidney Foundation (A Unifying Approach to GFR Estimation: Recommendations of the NKF-ASK Task Force on Reassessing the Inclusion of Race in Diagnosing Kidney Disease, JASN 2020). The CKD-EPI equation should not be used for patients with unstable renal function and has not been validated in children and those over 70. Current interpretive data was last reviewed 2021. Blood 11/09/2024 3:29 PM CDT 11/09/2024 3:45 PM CDT Vicente Mandujano MD LAB BLOOD OR DERABLES Final Result Performing Organization Address City/[facility]/ZIP Co de Phone Number [facility] Department [place] [address] * Uric acid (11/09/2024 3:29 PM CDT) Uric acid 2.9 2.5 - 7.0 mg/dL Blood 11/09/2024 3:29 PM CDT 11/09/2024 3:45 PM CDT Narrative [facility] 11/09/2024 4:15 PM CDT Tumor lysis syndrome labs. Vicente Mandujano MD LAB BLOOD OR DERABLES Final Result [facility] Department [place] [address] * Phosphorus (11/09/2024 3:29 PM CDT) Phosphorus, pl 2.8 2.3 - 4.5 mg/dL Blood 11/09/2024 3:29 PM CDT 11/09/2024 3:45 PM CDT Narrative [facility] - 11/09/2024 4:15 PM CDT Tumor lysis syndrome labs. Vicente Mandujano MD LAB BLOOD OR DERABLES Final Result Performing Organization Address City/[facility]/ZIP Co de Phone Number [facility] Department [place] [address] * (ABNORMAL) Basic metabolic panel (11/09/2024 3:29 PM CDT) Pathologist [facility] [place] Sodium 142 135 - 145 mmol/L Potassium, pl 3.6 3.3 - 4.9 mmol/L [facility] Chloride 109 97 - 110 mmol/L [facility] CO2 26 22 - 32 mmol/L [facility] Anion gap 7 2 - 15 mmol/L [facility] BUN 14 6 - 25 mg/dL [facility] Creatinine 0.57(L) 0.60 - 1.10 mg/dL [facility] Glucose 123 70 - 199 mg/dL [facility] Comment: Interpretive Data Fasting glucose >/= 126 mg/dl is diagnostic for diabetes. Fasting is defined as no caloric intake for at least 8 hours. Fasting glucose between 100 mg/dl to 125 mg/dl is diagnostic of prediabetes. In a patient with classic symptoms of hyperglycemia or hyperglycemic crisis, a random glucose >/= 200 mg/dl is diagnostic for diabetes. In the absence of unequivocal hyperglycemia, results should be confirmed by repeat testing. The classification and Diagnosis of Diabetes Diabetes Care 202; 46: S19-S40. Current interpretive data was last revised 2022. Calcium 7.9(L) 8.5 - 10.3 mg/dL [facility] Blood 11/09/2024 3:29 PM CDT 11/09/2024 3:45 PM CDT Narrative [facility] - 11/09/2024 4:15 PM CDT Tumor lysis syndrome labs. Vicente Mandujano MD LAB BLOOD OR DERABLES Final Result Performing Organization Address City/[facility]/ZIP Co de Phone Number [facility] One [facility] Department [place] [address] * XR Chest 1 View (11/09/2024 10:39 AM CDT) Anatomical Region Laterality Modality Body, Chest N/A Computed Radiogr aphy 11/09/2024 10:4 3 AM CDT Impressions 11/09/2024 10:43 AM CDT Comparison is made to prior examination from 11/06/2024. Right jugular catheter tip overlies the superior vena cava. There is no focal pneumonic consolidation, effusion, or pneumothorax. Stable heart size. Electronically signed by: Bj Kay M.D. Narrative 11/09/2024 10:43 AM CDT EXAMINATION: 1 view chest radiograph Procedure Note Bj Kay MD - 11/09/2024 EXAMINATION: 1 view chest radiograph IMPRESSION: Comparison is made to prior examination from 11/06/2024. Right jugular catheter tip overlies the superior vena cava. There is no focal pneumonic consolidation, effusion, or pneumothorax. Stable heart size. Electronically signed by: Bj Kay M.D. us Adrian Fonseca MD IMG XR PROCEDURES Fin al Result * ECG 12 lead (11/09/2024 8:31 AM CDT) Ventricular Rate EKG/Min 57 BPM [facility] Atrial Rate 57 BPM [facility] [place]-Interval (MSEC) 134 ms [facility] QRS-Interval (MSEC) 88 ms [facility] QT-Interval (MSEC) 454 ms [facility] QTc 441 ms [facility] P [place] 80 degrees [facility] R [place] 57 degrees [facility] T [place] 66 degrees [facility] Diagnosis Sinus bradycardia Otherwise normal ECG Confirmed by Lalo COOL, Miguel ([id number]) on 11/11/2024 8:53:16 AM [facility] 11/09/2024 8:31 AM CDT 11/11/2024 8:53 AM CDT us Mervat Garber MD ECG ORDERABLES Final Result Performing Organization Address City/State/[facility] Co de Phone Number [facility] * eGFR (11/09/2024 8:05 AM CDT) eGFR >90 >=60 mL/min/1. 73 m2 Comment: Interpretive Data Reference Interval Normal >/= 90 mL/min/1.73m2 Mildly decreased* 60 - 89 mL/min/1.73m2 Mildly to moderately decreased 45 - 59 mL/min/1.73m2 Moderately to severely decreased 30 - 44 mL/min/1.73m2 Severely decreased 15 - 29 mL/min/1.73m2 Kidney Failure < 15 mL/min/1.73m2 *Relative to young adult level Estimated glomerular filtration rate is determined by the 2020 CKD-EPI equation recommended by the National Kidney Foundation (A Unifying Approach to GFR Estimation: Recommendations of the NKF-ASK Task Force on Reassessing the Inclusion of Race in Diagnosing Kidney Disease, JASN 2020). The CKD-EPI equation should not be used for patients with unstable renal function and has not been validated in children and those over 70. Current interpretive data was last reviewed 2021. Blood 11/09/2024 8:05 AM CDT 11/09/2024 8:38 AM CDT Vicente Mandujano MD LAB BLOOD OR DERABLES Final Result Performing Organization Address [facility] de Phone Number [facility] Department [place] [address] * Uric acid (11/09/2024 8:05 AM CDT) Uric acid 3.1 2.5 - 7.0 mg/dL Blood 11/09/2024 8:05 AM CDT 11/09/2024 8:11 AM CDT Narrative [facility] - 11/09/2024 9:08 AM CDT Tumor lysis syndrome labs. Vicente Mandujano MD LAB BLOOD OR DERABLES Final Result Performing Organization Address [facility] Co de Phone Number [facility] Department [place] [address] * Phosphorus (11/09/2024 8:05 AM CDT) [facility] Phosphorus, pl 3.4 2.3 - 4.5 mg/dL Blood 11/09/2024 8:05 AM CDT 11/09/2024 8:11 AM CDT Narrative [facility] - 11/09/2024 9:08 AM CDT Tumor lysis syndrome labs. Vicente Mandujano MD LAB BLOOD OR DERABLES Final Result Performing Organization Address [facility] de Phone Number [facility] Department [place] [address] * (ABNORMAL) Basic metabolic panel (11/09/2024 8:05 AM CDT) [facility] Sodium 144 135 - 145 mmol/L Potassium, pl 4.0 3.3 - 4.9 mmol/L [facility] Chloride 112(H) 97 - 110 mmol/L [facility] CO2 25 22 - 32 mmol/L [facility] Anion gap 7 2 - 15 mmol/L [facility] BUN 13 6 - 25 mg/dL [facility] Creatinine 0.55(L) 0.60 - 1.10 mg/dL [facility] Glucose 111 70 - 199 mg/dL [facility] Comment: Interpretive Data Fasting glucose >/= 126 mg/dl is diagnostic for diabetes. Fasting is defined as no caloric intake for at least 8 hours. Fasting glucose between 100 mg/dl to 125 mg/dl is diagnostic of prediabetes. In a patient with classic symptoms of hyperglycemia or hyperglycemic crisis, a random glucose >/= 200 mg/dl is diagnostic for diabetes. In the absence of unequivocal hyperglycemia, results should be confirmed by repeat testing. The classification and Diagnosis of Diabetes Diabetes Care 2021; 46: S19-S40. Current interpretive data was last revised 2022. Calcium 7.7(L) 8.5 - 10.3 mg/dL [facility] Blood 11/09/2024 8:05 AM CDT 11/09/2024 8:11 AM CDT Narrative [facility] - 11/09/2024 9:08 AM CDT Tumor lysis syndrome labs. Vicente Mandujano MD LAB BLOOD OR DERABLES Final Result Performing Organization Address City/[facility]/ZIP Co de Phone Number [facility] Department [place] [address] * eGFR (11/09/2024 12:42 AM CDT) eGFR >90 >=60 mL/min/1. 73 m2 Comment: Interpretive Data Reference Interval Normal >/= 90 mL/min/1.73m2 Mildly decreased* 60 - 89 mL/min/1.73m2 Mildly to moderately decreased 45 - 59 mL/min/1.73m2 Moderately to severely decreased 30 - 44 mL/min/1.73m2 Severely decreased 15 - 29 mL/min/1.73m2 Kidney Failure < 15 mL/min/1.73m2 *Relative to young adult level Estimated glomerular filtration rate is determined by the 2020 CKD-EPI equation recommended by the National Kidney Foundation (A Unifying Approach to GFR Estimation: Recommendations of the NKF-ASK Task Force on Reassessing the Inclusion of Race in Diagnosing Kidney Disease, JASN 202). The CKD-EPI equation should not be used for patients with unstable renal function and has not been validated in children and those over 70. Current interpretive data was last reviewed 2021. Blood 11/09/2024 12:4 2 AM CDT 11/09/2024 12:59 AM CDT Mervat Garber MD LAB BLOOD ORDERA BLES Final Result Performing Organization Address [facility]/ZIP Co de Phone Number [facility] Department [place] [address] * (ABNORMAL) Manual Differential (11/09/2024 12:42 AM CDT) Pathologist [facility] [place] Differential Manual Cells Counted 115 [facility] Neutrophil abs 30.9(H) 1.5 - 6.5 K/cumm [facility] Imm gran abs 0.0 0.0 - 0.1 K/cumm [facility] Lymphocyte abs 0.0(L) 0.8 - 3.3 K/cumm [facility] Monocyte abs 0.0(L) 0.2 - 0.8 K/cumm [facility] Neutrophil pct 100.0 % [facility] Comment: Interpretive Data Percent cell count reference ranges are not reported, since discordance with absolute values may lead to misinterpretation of CBC data. Current Interpretive Data was last revised on 2017. RBC morphology Present(A) [facility] Anisocytosis Slight(A) [facility] Platelet estimate Adequate [facility] Blood 11/09/2024 12:4 2 AM CDT 11/09/2024 12:59 AM CDT us Mervat Garber MD LAB BLOOD ORDERA BLES Edited Result - Final Performing Organization Address City/[facility]/ZIP Co de Phone Number [facility] Department [place] [address] * (ABNORMAL) aPTT (11/09/2024 12:42 AM CDT) [facility] aPTT 27(L) 28 - 38 sec Comment: Interpretive Data Heparin therapeutic range: 66.0 - 100.0 seconds. Range based on correlation with therapeutic heparin activity range of 0.3 - 0.7 Units/mL. Current interpretive data was last revised on 2023. Blood 11/09/2024 12:4 2 AM CDT 11/09/2024 12:56 AM CDT Mervat Garber MD LAB BLOOD ORDERA BLES Final Result Performing Organization Address City/[facility] Co de Phone Number [facility] Department [place] [address] * (ABNORMAL) Protime-INR (11/09/2024 12:42 AM CDT) [facility] PT 13.1(H) 9.7 - 13.0 sec INR 1.21(H) 0.90 - 1.20 [facility] Comment: Interpretive data Oral anticoagulant therapeutic ranges: Venous thromboembolism prophylaxis or treatment: 2.0-3.0 CARDIOLOGY Standard range: 2.0-3.0 High-intensity range: 2.5-3.5 Refer to indication-specific guidelines for appropriate target ranges for prosthetic heart valve replacement. Current interpretive data was last revised on 2019. Blood 11/09/2024 12:4 2 AM CDT 11/09/2024 12:56 AM CDT Mervat Garber MD LAB BLOOD ORDERA BLES Final Result [facility] Department [place] [address] * (ABNORMAL) CBC without differential (11/09/2024 12:42 AM CDT) [facility] WBC 30.9(H) 3.8 - 9.9 K/cumm Hgb 8.2(L) 11.9 - 15.5 g/dL [facility] Hct 24.6(L) 35.6 - 45.5 % [facility] Plt 152 150 - 400 K/cumm [facility] MPV 9.7 9.1 - 12.3 fL [facility] RBC 2.68(L) 3.90 - 5.20 M/cumm [facility] MCV 91.8 81.3 - 96.4 fL [facility] MCH 30.6 27.1 - 33.3 pg [facility] MCHC 33.3 32.3 - 35.7 g/dL [facility] RDW CV 19.9(H) 11.1 - 14.9 % [facility] RDW SD 65.5(H) 35.7 - 48.1 fL [facility] NRBC abs 0.00 0.00 - 0.01 K/cumm [facility] Blood 11/09/2024 12:4 2 AM CDT 11/09/2024 12:59 AM CDT Mervat Garber MD LAB BLOOD ORDERA BLES Final Result Performing Organization Address [facility] Co de Phone Number [facility] [place] [address] * Type and screen (11/09/2024 12:42 AM CDT) Bing, indirect Negative ABO Rh A Positive [facility] Blood 11/09/2024 12:4 2 AM CDT 11/09/2024 12:59 AM CDT Narrative [facility] - 11/09/2024 3:10 AM CDT Has the patient had Daratumumab or Isatuximab in the past 6 months?->Unknown Mervat Garber MD LAB BLOOD BANK T EST ORDERABLES Final Result Performing Organization Address [facility] de Phone Number [facility] Department [place] [address] * Uric acid (11/09/2024 12:42 AM CDT) Uric acid 3.4 2.5 - 7.0 mg/dL Blood 11/09/2024 12:4 2 AM CDT 11/09/2024 12:59 AM CDT Narrative [facility] - 11/09/2024 1:29 AM CDT Saturday and only. Morning draw. . Mervat Garber MD LAB BLOOD ORDERA BLES Final Result Performing Organization Address City/[facility] Co de Phone Number [facility] Department [place] [address] * Phosphorus (11/09/2024 12:42 AM CDT) [facility] Phosphorus, pl 3.3 2.3 - 4.5 mg/dL Blood 11/09/2024 12:4 2 AM CDT 11/09/2024 12:59 AM CDT Mervat Garber MD LAB BLOOD ORDERA BLES Final Result [facility] [place] [address] * Lactate dehydrogenase (LD) (11/09/2024 12:42 AM CDT) [facility] Lactate dehydrogenase (LDH) 202 100 - 250 Units/L Blood 11/09/2024 12:4 2 AM CDT 11/09/2024 12:59 AM CDT Narrative [facility] - 11/09/2024 1:29 AM CDT Saturday and only. Morning draw. Mervat Garber MD LAB BLOOD ORDERA BLES Final Result [facility] Department [place] [address] * (ABNORMAL) Comprehensive metabolic panel (11/09/2024 12:42 AM CDT) [facility] Sodium 145 135 - 145 mmol/L Potassium, pl 3.5 3.3 - 4.9 mmol/L [facility] Chloride 111(H) 97 - 110 mmol/L [facility] CO2 27 22 - 32 mmol/L [facility] Anion gap 7 2 - 15 mmol/L [facility] BUN 16 6 - 25 mg/dL [facility] Creatinine 0.64 0.60 - 1.10 mg/dL [facility] [facility] Glucose 97 70 - 199 mg/dL [facility] Comment: Interpretive Data Fasting glucose >/= 126 mg/dl is diagnostic for diabetes. Fasting is defined as no caloric intake for at least 8 hours. Fasting glucose between 100 mg/dl to 125 mg/dl is diagnostic of prediabetes. In a patient with classic symptoms of hyperglycemia or hyperglycemic crisis, a random glucose >/= 200 mg/dl is diagnostic for diabetes. In the absence of unequivocal hyperglycemia, results should be confirmed by repeat testing. The classification and Diagnosis of Diabetes Diabetes Care 2021; 46: S19-S40. Current interpretive data was last revised 2022. Calcium 7.8(L) 8.5 - 10.3 mg/dL [facility] Bilirubin, total 1.0 0.1 - 1.2 mg/dL [facility] Protein, pl 5.0(L) 6.5 - 8.5 g/dL [facility] Albumin 2.8(L) 3.5 - 5.0 g/dL [facility] Alk phos 148(H) 40 - 130 Units/L [facility] ALT 26 7 - 45 Units/L [facility] AST 16 10 - 45 Units/L [facility] Blood 11/09/2024 12:4 2 AM CDT 11/09/2024 12:59 AM CDT Narrative [facility] - 11/09/2024 1:29 AM CDT Saturday and only. Morning draw. Mervat Garber MD LAB BLOOD ORDERA BLES Final Result [facility] [place] [address] * eGFR (11/08/2024 4:44 PM CDT) Pathologist [facility] [place] eGFR >90 >=60 mL/min/1. 73 m2 Comment: Interpretive Data Reference Interval Normal >/= 90 mL/min/1.73m2 Mildly decreased* 60 - 89 mL/min/1.73m2 Mildly to moderately decreased 45 - 59 mL/min/1.73m2 Moderately to severely decreased 30 - 44 mL/min/1.73m2 Severely decreased 15 - 29 mL/min/1.73m2 Kidney Failure < 15 mL/min/1.73m2 *Relative to young adult level Estimated glomerular filtration rate is determined by the 2020 CKD-EPI equation recommended by the National Kidney Foundation (A Unifying Approach to GFR Estimation: Recommendations of the NKF-ASK Task Force on Reassessing the Inclusion of Race in Diagnosing Kidney Disease, JASN 2020). The CKD-EPI equation should not be used for patients with unstable renal function and has not been validated in children and those over 70. Current interpretive data was last reviewed 2021. Blood 11/08/2024 4:44 PM CDT 11/08/2024 5:02 PM CDT Vicente Mandujano MD LAB BLOOD OR DERABLES Final Result Performing Organization Address City/[facility]/ZIP Co de Phone Number [facility] Department [place] [address] * Uric acid (11/08/2024 4:44 PM CDT) Uric acid 4.0 2.5 - 7.0 mg/dL Blood 11/08/2024 4:44 PM CDT 11/08/2024 5:02 PM CDT Narrative [facility] - 11/08/2024 5:33 PM CDT Tumor lysis syndrome labs. Vicente Mandujano MD LAB BLOOD OR DERABLES Final Result [facility] [place] [address] * Phosphorus (11/08/2024 4:44 PM CDT) Phosphorus, pl 3.0 2.3 - 4.5 mg/dL Blood 11/08/2024 4:44 PM CDT 11/08/2024 5:02 PM CDT Narrative [facility] - 11/08/2024 5:33 PM CDT Tumor lysis syndrome labs. Vicente Mandujano MD LAB BLOOD OR DERABLES Final Result [facility] Department [place] [address] * (ABNORMAL) Basic metabolic panel (11/08/2024 4:44 PM CDT) [facility] Sodium 142 135 - 145 mmol/L Potassium, pl 3.8 3.3 - 4.9 mmol/L [facility] Chloride 109 97 - 110 mmol/L [facility] CO2 25 22 - 32 mmol/L [facility] Anion gap 8 2 - 15 mmol/L [facility] BUN 14 6 - 25 mg/dL [facility] Creatinine 0.67 0.60 - 1.10 mg/dL [facility] Glucose 113 70 - 199 mg/dL [facility] Comment: Interpretive Data Fasting glucose >/= 126 mg/dl is diagnostic for diabetes. Fasting is defined as no caloric intake for at least 8 hours. Fasting glucose between 100 mg/dl to 125 mg/dl is diagnostic of prediabetes. In a patient with classic symptoms of hyperglycemia or hyperglycemic crisis, a random glucose >/= 200 mg/dl is diagnostic for diabetes. In the absence of unequivocal hyperglycemia, results should be confirmed by repeat testing. The classification and Diagnosis of Diabetes Diabetes Care 202; 46: S19-S40. Current interpretive data was last revised 2022. Calcium 7.8(L) 8.5 - 10.3 mg/dL [facility] Blood 11/08/2024 4:44 PM CDT 11/08/2024 5:02 PM CDT Narrative [facility] - 11/08/2024 5:33 PM CDT Tumor lysis syndrome labs. Vicente Mandujano MD LAB BLOOD OR DERABLES Final Result [facility] Department [place] [address] * eGFR (11/08/2024 8:46 AM CDT) eGFR >90 >=60 mL/min/1. 73 m2 Comment: Interpretive Data Reference Interval Normal >/= 90 mL/min/1.73m2 Mildly decreased* 60 - 89 mL/min/1.73m2 Mildly to moderately decreased 45 - 59 mL/min/1.73m2 Moderately to severely decreased 30 - 44 mL/min/1.73m2 Severely decreased 15 - 29 mL/min/1.73m2 Kidney Failure < 15 mL/min/1.73m2 *Relative to young adult level Estimated glomerular filtration rate is determined by the 2020 CKD-EPI equation recommended by the National Kidney Foundation (A Unifying Approach to GFR Estimation: Recommendations of the NKF-ASK Task Force on Reassessing the Inclusion of Race in Diagnosing Kidney Disease, JASN 2020). The CKD-EPI equation should not be used for patients with unstable renal function and has not been validated in children and those over 70. Current interpretive data was last reviewed 2021. Blood 11/08/2024 8:46 AM CDT 11/08/2024 9:14 AM CDT Vicente Mandujano MD LAB BLOOD OR DERABLES Final Result [facility] Department [place] [address] * Uric acid (11/08/2024 8:46 AM CDT) Uric acid 3.7 2.5 - 7.0 mg/dL Blood 11/08/2024 8:46 AM CDT 11/08/2024 9:08 AM CDT Narrative [facility] - 11/08/2024 9:42 AM CDT Tumor lysis syndrome labs. Vicente Mandujano MD LAB BLOOD OR DERABLES Final Result Performing Organization Address City/[facility]/ZIP Co de Phone Number [facility] [place] [address] * Phosphorus (11/08/2024 8:46 AM CDT) [facility] Phosphorus, pl 3.6 2.3 - 4.5 mg/dL Blood 11/08/2024 8:46 AM CDT 11/08/2024 9:08 AM CDT Narrative [facility] - 11/08/2024 9:42 AM CDT Tumor lysis syndrome labs. Vicente Mandujano MD LAB BLOOD OR DERABLES Final Result Performing Organization Address [facility] Co de Phone Number [facility] [place] [address] * (ABNORMAL) Basic metabolic panel (11/08/2024 8:46 AM CDT) [facility] Sodium 144 135 - 145 mmol/L Potassium, pl 4.2 3.3 - 4.9 mmol/L [facility] Chloride 110 97 - 110 mmol/L [facility] CO2 26 22 - 32 mmol/L [facility] Anion gap 8 2 - 15 mmol/L [facility] BUN 10 6 - 25 mg/dL [facility] Creatinine 0.57(L) 0.60 - 1.10 mg/dL [facility] Glucose 120 70 - 199 mg/dL [facility] Comment: Interpretive Data Fasting glucose >/= 126 mg/dl is diagnostic for diabetes. Fasting is defined as no caloric intake for at least 8 hours. Fasting glucose between 100 mg/dl to 125 mg/dl is diagnostic of prediabetes. In a patient with classic symptoms of hyperglycemia or hyperglycemic crisis, a random glucose >/= 200 mg/dl is diagnostic for diabetes. In the absence of unequivocal hyperglycemia, results should be confirmed by repeat testing. The classification and Diagnosis of Diabetes Diabetes Care 2021; 46: S19-S40. Current interpretive data was last revised 2022. Calcium 8.0(L) 8.5 - 10.3 mg/dL [facility] Blood 11/08/2024 8:46 AM CDT 11/08/2024 9:08 AM CDT Narrative [facility] - 11/08/2024 9:42 AM CDT Tumor lysis syndrome labs. Vicente Mandujano MD LAB BLOOD OR DERABLES Final Result [facility] Department [place] [address] * POCT glucose (11/08/2024 3:03 AM CDT) Glucose, POC 112 70 - 199 mg/dL Blood 11/08/2024 3:03 AM CDT 11/08/2024 3:03 AM CDT Vicente Mandujano MD LAB POCT ORD ERABLES - DEVICE Final Result Performing Organization Address City/[facility]/ZIP Co de Phone Number [facility] Department [place] [address] * eGFR (11/08/2024 12:41 AM REFINERY PROCESS ENGINEER) Pathologist [facility] [place] eGFR >90 >=60 mL/min/1. 73 m2 Comment: Interpretive Data Reference Interval Normal >/= 90 mL/min/1.73m2 Mildly decreased* 60 - 89 mL/min/1.73m2 Mildly to moderately decreased 45 - 59 mL/min/1.73m2 Moderately to severely decreased 30 - 44 mL/min/1.73m2 Severely decreased 15 - 29 mL/min/1.73m2 Kidney Failure < 15 mL/min/1.73m2 *Relative to young adult level Estimated glomerular filtration rate is determined by the 2020 CKD-EPI equation recommended by the National Kidney Foundation (A Unifying Approach to GFR Estimation: Recommendations of the NKF-ASK Task Force on Reassessing the Inclusion of Race in Diagnosing Kidney Disease, JASN 2020). The CKD-EPI equation should not be used for patients with unstable renal function and has not been validated in children and those over 70. Current interpretive data was last reviewed 2021. Blood 11/08/2024 12:4 1 AM REFINERY PROCESS ENGINEER 11/08/2024 1:19 AM REFINERY PROCESS ENGINEER Vicente Mandujano MD LAB BLOOD OR DERABLES Final Result [facility] Department [place] [address] * (ABNORMAL) Manual Differential (11/08/2024 12:41 AM REFINERY PROCESS ENGINEER) Differential Manual Cells Counted 115 [facility] Neutrophil abs 33.6(H) 1.5 - 6.5 K/cumm [facility] Imm gran abs 0.0 0.0 - 0.1 K/cumm [facility] Lymphocyte abs 0.3(L) 0.8 - 3.3 K/cumm [facility] Monocyte abs 0.3 0.2 - 0.8 K/cumm [facility] Neutrophil pct 98.2 % [facility] Comment: Interpretive Data Percent cell count reference ranges are not reported, since discordance with absolute values may lead to misinterpretation of CBC data. Current Interpretive Data was last revised on 2017. Lymphocyte pct 0.9 % [facility] Comment: Interpretive Data Percent cell count reference ranges are not reported, since discordance with absolute values may lead to misinterpretation of CBC data. Current Interpretive Data was last revised on 2017. Monocyte pct 0.9 % [facility] Comment: Interpretive Data Percent cell count reference ranges are not reported, since discordance with absolute values may lead to misinterpretation of CBC data. Current Interpretive Data was last revised on 2017. RBC morphology Present(A) [facility] Anisocytosis Slight(A) [facility] Macrocytes 3-7/HPF(A) [facility] Platelet estimate Adequate [facility] Blood 11/08/2024 12:4 1 AM REFINERY PROCESS ENGINEER 11/08/2024 1:19 AM REFINERY PROCESS ENGINEER Mervat Garber MD LAB BLOOD ORDERA BLES Final Result Performing Organization Address City/[facility]/ZIP Co de Phone Number [facility] Department [place] [address] * (ABNORMAL) CBC without differential (11/08/2024 12:41 AM REFINERY PROCESS ENGINEER) WBC 34.2(H) 3.8 - 9.9 K/cumm Hgb 8.8(L) 11.9 - 15.5 g/dL [facility] Hct 26.4(L) 35.6 - 45.5 % [facility] Plt 196 150 - 400 K/cumm [facility] MPV 10.1 9.1 - 12.3 fL [facility] RBC 2.86(L) 3.90 - 5.20 M/cumm [facility] MCV 92.3 81.3 - 96.4 fL [facility] MCH 30.8 27.1 - 33.3 pg [facility] MCHC 33.3 32.3 - 35.7 g/dL [facility] RDW CV 19.5(H) 11.1 - 14.9 % [facility] RDW SD 63.5(H) 35.7 - 48.1 fL [facility] NRBC abs 0.00 0.00 - 0.01 K/cumm [facility] Blood 11/08/2024 12:4 1 AM REFINERY PROCESS ENGINEER 11/08/2024 1:19 AM REFINERY PROCESS ENGINEER Mervat Garber MD LAB BLOOD ORDERA BLES Final Result [facility] Department [place] [address] * Uric acid (11/08/2024 12:41 AM REFINERY PROCESS ENGINEER) Uric acid 3.5 2.5 - 7.0 mg/dL Blood 11/08/2024 12:4 1 AM REFINERY PROCESS ENGINEER 11/08/2024 1:09 AM REFINERY PROCESS ENGINEER Narrative [facility] - 11/08/2024 1:48 AM REFINERY PROCESS ENGINEER Tumor lysis syndrome labs. Vicente Mandujano MD LAB BLOOD OR DERABLES Final Result Performing Organization Address City/[facility]/ZIP Co de Phone Number [facility] [place] [address] * Phosphorus (11/08/2024 12:41 AM REFINERY PROCESS ENGINEER) Phosphorus, pl 3.6 2.3 - 4.5 mg/dL Blood 11/08/2024 12:4 1 AM REFINERY PROCESS ENGINEER 11/08/2024 1:09 AM REFINERY PROCESS ENGINEER Narrative [facility] - 11/08/2024 1:48 AM REFINERY PROCESS ENGINEER Tumor lysis syndrome labs. Vicente Mandujano MD LAB BLOOD OR DERABLES Final Result Performing Organization Address [facility] [place] [address] * (ABNORMAL) Hepatic function panel (11/08/2024 12:41 AM REFINERY PROCESS ENGINEER) Bilirubin, total 0.8 0.1 - 1.2 mg/dL Bilirubin, direct 0.2 0.1 - 0.3 mg/dL [facility] Protein, pl 5.2(L) 6.5 - 8.5 g/dL [facility] Albumin 3.1(L) 3.5 - 5.0 g/dL [facility] Alk phos 168(H) 40 - 130 Units/L [facility] ALT 36 7 - 45 Units/L [facility] AST 33 10 - 45 Units/L [facility] Blood 11/08/2024 12:4 1 AM REFINERY PROCESS ENGINEER 11/08/2024 1:09 AM REFINERY PROCESS ENGINEER us Vicente Mandujano MD LAB BLOOD OR DERABLES Final Result [facility] Department [place] [address] * (ABNORMAL) Basic metabolic panel (11/08/2024 12:41 AM REFINERY PROCESS ENGINEER) Pathologist [facility] [place] Sodium 145 135 - 145 mmol/L Potassium, pl 3.8 3.3 - 4.9 mmol/L [facility] Chloride 109 97 - 110 mmol/L [facility] CO2 25 22 - 32 mmol/L [facility] Anion gap 11 2 - 15 mmol/L [facility] BUN 12 6 - 25 mg/dL [facility] Creatinine 0.66 0.60 - 1.10 mg/dL [facility] Glucose 68(L) 70 - 199 mg/dL [facility] Comment: Interpretive Data Fasting glucose >/= 126 mg/dl is diagnostic for diabetes. Fasting is defined as no caloric intake for at least 8 hours. Fasting glucose between 100 mg/dl to 125 mg/dl is diagnostic of prediabetes. In a patient with classic symptoms of hyperglycemia or hyperglycemic crisis, a random glucose >/= 200 mg/dl is diagnostic for diabetes. In the absence of unequivocal hyperglycemia, results should be confirmed by repeat testing. The classification and Diagnosis of Diabetes Diabetes Care 2021; 46: S19-S40. Current interpretive data was last revised 2022. Calcium 8.0(L) 8.5 - 10.3 mg/dL [facility] Blood 11/08/2024 12:4 1 AM REFINERY PROCESS ENGINEER 11/08/2024 1:09 AM REFINERY PROCESS ENGINEER Narrative [facility] - 11/08/2024 1:48 AM REFINERY PROCESS ENGINEER Tumor lysis syndrome labs. Vicente Mandujano MD LAB BLOOD OR DERABLES Final Result [facility] Department [place] [address] * eGFR (11/07/2024 4:26 PM REFINERY PROCESS ENGINEER) eGFR >90 >=60 mL/min/1. 73 m2 Comment: Interpretive Data Reference Interval Normal >/= 90 mL/min/1.73m2 Mildly decreased* 60 - 89 mL/min/1.73m2 Mildly to moderately decreased 45 - 59 mL/min/1.73m2 Moderately to severely decreased 30 - 44 mL/min/1.73m2 Severely decreased 15 - 29 mL/min/1.73m2 Kidney Failure < 15 mL/min/1.73m2 *Relative to young adult level Estimated glomerular filtration rate is determined by the 2020 CKD-EPI equation recommended by the National Kidney Foundation (A Unifying Approach to GFR Estimation: Recommendations of the NKF-ASK Task Force on Reassessing the Inclusion of Race in Diagnosing Kidney Disease, JASN 2020). The CKD-EPI equation should not be used for patients with unstable renal function and has not been validated in children and those over 70. Current interpretive data was last reviewed 2021. Blood 11/07/2024 4:26 PM REFINERY PROCESS ENGINEER 11/07/2024 5:04 PM REFINERY PROCESS ENGINEER Vicente Mandujano MD LAB BLOOD OR DERABLES Final Result [facility] Department [place] [address] * Uric acid (11/07/2024 4:26 PM REFINERY PROCESS ENGINEER) Pathologist [facility] [place] Uric acid 3.6 2.5 - 7.0 mg/dL Blood 11/07/2024 4:26 PM REFINERY PROCESS ENGINEER 11/07/2024 5:04 PM REFINERY PROCESS ENGINEER Narrative [facility] 11/07/2024 5:36 PM REFINERY PROCESS ENGINEER Tumor lysis syndrome labs. Vicente Mandujano MD LAB BLOOD OR DERABLES Final Result [facility] Department [place] [address] * Phosphorus (11/07/2024 4:26 PM REFINERY PROCESS ENGINEER) Phosphorus, pl 3.1 2.3 - 4.5 mg/dL Blood 11/07/2024 4:26 PM REFINERY PROCESS ENGINEER 11/07/2024 5:04 PM REFINERY PROCESS ENGINEER Narrative [facility] - 11/07/2024 5:36 PM REFINERY PROCESS ENGINEER Tumor lysis syndrome labs. Vicente Mandujano MD LAB BLOOD OR DERABLES Final Result [facility] Department [place] [address] * (ABNORMAL) Basic metabolic panel (11/07/2024 4:26 PM REFINERY PROCESS ENGINEER) Pathologist [facility] [place] Sodium 142 135 - 145 mmol/L Potassium, pl 4.2 3.3 - 4.9 mmol/L [facility] Chloride 107 97 - 110 mmol/L [facility] CO2 25 22 - 32 mmol/L [facility] Anion gap 10 2 - 15 mmol/L [facility] BUN 13 6 - 25 mg/dL [facility] Creatinine 0.62 0.60 - 1.10 mg/dL [facility] Glucose 93 70 - 199 mg/dL [facility] Comment: Interpretive Data Fasting glucose >/= 126 mg/dl is diagnostic for diabetes. Fasting is defined as no caloric intake for at least 8 hours. Fasting glucose between 100 mg/dl to 125 mg/dl is diagnostic of prediabetes. In a patient with classic symptoms of hyperglycemia or hyperglycemic crisis, a random glucose >/= 200 mg/dl is diagnostic for diabetes. In the absence of unequivocal hyperglycemia, results should be confirmed by repeat testing. The classification and Diagnosis of Diabetes Diabetes Care 202; 46: S19-S40. Current interpretive data was last revised 2022. Calcium 8.4(L) 8.5 - 10.3 mg/dL [facility] Blood 11/07/2024 4:26 PM REFINERY PROCESS ENGINEER 11/07/2024 5:04 PM REFINERY PROCESS ENGINEER Narrative [facility] - 11/07/2024 5:36 PM REFINERY PROCESS ENGINEER Tumor lysis syndrome labs. Vicente Mandujano MD LAB BLOOD OR DERABLES Final Result Performing Organization Address City/[facility]/ZIP Co de Phone Number [facility] Department [place] [address] * eGFR (11/07/2024 8:47 AM REFINERY PROCESS ENGINEER) Pathologist [facility] [place] eGFR >90 >=60 mL/min/1. 73 m2 Comment: Interpretive Data Reference Interval Normal >/= 90 mL/min/1.73m2 Mildly decreased* 60 - 89 mL/min/1.73m2 Mildly to moderately decreased 45 - 59 mL/min/1.73m2 Moderately to severely decreased 30 - 44 mL/min/1.73m2 Severely decreased 15 - 29 mL/min/1.73m2 Kidney Failure < 15 mL/min/1.73m2 *Relative to young adult level Estimated glomerular filtration rate is determined by the 2020 CKD-EPI equation recommended by the National Kidney Foundation (A Unifying Approach to GFR Estimation: Recommendations of the NKF-ASK Task Force on Reassessing the Inclusion of Race in Diagnosing Kidney Disease, JASN 2020). The CKD-EPI equation should not be used for patients with unstable renal function and has not been validated in children and those over 70. Current interpretive data was last reviewed 2021. Blood 11/07/2024 8:47 AM REFINERY PROCESS ENGINEER 11/07/2024 8:58 AM REFINERY PROCESS ENGINEER Vicente Mandujano MD LAB BLOOD OR DERABLES Final Result [facility] Department [place] [address] * Uric acid (11/07/2024 8:47 AM REFINERY PROCESS ENGINEER) Pathologist [facility] [place] Uric acid 3.3 2.5 - 7.0 mg/dL Blood 11/07/2024 8:47 AM REFINERY PROCESS ENGINEER 11/07/2024 8:58 AM REFINERY PROCESS ENGINEER Narrative [facility] - 11/07/2024 9:24 AM REFINERY PROCESS ENGINEER Tumor lysis syndrome labs. Vicente Mandujano MD LAB BLOOD OR DERABLES Final Result Performing Organization Address City/[facility]/ZIP Co de Phone Number [facility] Department [place] [address] * Phosphorus (11/07/2024 8:47 AM REFINERY PROCESS ENGINEER) [facility] Phosphorus, pl 3.0 2.3 - 4.5 mg/dL Blood 11/07/2024 8:47 AM REFINERY PROCESS ENGINEER 11/07/2024 8:58 AM REFINERY PROCESS ENGINEER Narrative [facility] 11/07/2024 9:24 AM REFINERY PROCESS ENGINEER Tumor lysis syndrome labs. Vicente Mandujano MD LAB BLOOD OR DERABLES Final Result Performing Organization Address [facility] Co de Phone Number [facility] Department [place] [address] * (ABNORMAL) Basic metabolic panel (11/07/2024 8:47 AM REFINERY PROCESS ENGINEER) [facility] Sodium 141 135 - 145 mmol/L Potassium, pl 4.2 3.3 - 4.9 mmol/L [facility] Chloride 108 97 - 110 mmol/L [facility] CO2 25 22 - 32 mmol/L [facility] Anion gap 8 2 - 15 mmol/L [facility] BUN 11 6 - 25 mg/dL [facility] Creatinine 0.57(L) 0.60 - 1.10 mg/dL [facility] Glucose 126 70 - 199 mg/dL [facility] Comment: Interpretive Data Fasting glucose >/= 126 mg/dl is diagnostic for diabetes. Fasting is defined as no caloric intake for at least 8 hours. Fasting glucose between 100 mg/dl to 125 mg/dl is diagnostic of prediabetes. In a patient with classic symptoms of hyperglycemia or hyperglycemic crisis, a random glucose >/= 200 mg/dl is diagnostic for diabetes. In the absence of unequivocal hyperglycemia, results should be confirmed by repeat testing. The classification and Diagnosis of Diabetes Diabetes Care 2021; 46: S19-S40. Current interpretive data was last revised 2022. Calcium 8.5 8.5 - 10.3 mg/dL [facility] Blood 11/07/2024 8:47 AM REFINERY PROCESS ENGINEER 11/07/2024 8:58 AM REFINERY PROCESS ENGINEER Narrative [facility] - 11/07/2024 9:24 AM REFINERY PROCESS ENGINEER Tumor lysis syndrome labs. Vicente Mandujano MD LAB BLOOD OR DERABLES Final Result [facility] CHILDREN [facility] Department [place] [address] * eGFR (11/07/2024 12:35 AM REFINERY PROCESS ENGINEER) eGFR >90 >=60 mL/min/1. 73 m2 Comment: Interpretive Data Reference Interval Normal >/= 90 mL/min/1.73m2 Mildly decreased* 60 - 89 mL/min/1.73m2 Mildly to moderately decreased 45 - 59 mL/min/1.73m2 Moderately to severely decreased 30 - 44 mL/min/1.73m2 Severely decreased 15 - 29 mL/min/1.73m2 Kidney Failure < 15 mL/min/1.73m2 *Relative to young adult level Estimated glomerular filtration rate is determined by the 2020 CKD-EPI equation recommended by the National Kidney Foundation (A Unifying Approach to GFR Estimation: Recommendations of the NKF-ASK Task Force on Reassessing the Inclusion of Race in Diagnosing Kidney Disease, JASN 2020). The CKD-EPI equation should not be used for patients with unstable renal function and has not been validated in children and those over 70. Current interpretive data was last reviewed 2021. Blood 11/07/2024 12:3 5 AM REFINERY PROCESS ENGINEER 11/07/2024 1:10 AM REFINERY PROCESS ENGINEER Vicente Mandujano MD LAB BLOOD OR DERABLES Final Result DAVID GARCÍA [facility] Department [place] [address] * (ABNORMAL) Manual Differential (11/07/2024 12:35 AM REFINERY PROCESS ENGINEER) Differential Manual Cells Counted 114 [facility] Neutrophil abs 2.7 1.5 - 6.5 K/cumm [facility] Imm gran abs 0.0 0.0 - 0.1 K/cumm [facility] Lymphocyte abs 0.3(L) 0.8 - 3.3 K/cumm [facility] Monocyte abs 0.3 0.2 - 0.8 K/cumm [facility] Basophil abs 0.1 0.0 - 0.1 K/cumm [facility] Neutrophil pct 77.3 % [facility] Comment: Interpretive Data Percent cell count reference ranges are not reported, since discordance with absolute values may lead to misinterpretation of CBC data. Current Interpretive Data was last revised on 2017. Lymphocyte pct 9.6 % [facility] Comment: Interpretive Data Percent cell count reference ranges are not reported, since discordance with absolute values may lead to misinterpretation of CBC data. Current Interpretive Data was last revised on 2017. Monocyte pct 9.6 % [facility] Comment: Interpretive Data Percent cell count reference ranges are not reported, since discordance with absolute values may lead to misinterpretation of CBC data. Current Interpretive Data was last revised on 2017. Basophil pct 3.5 % [facility] Comment: Interpretive Data Percent cell count reference ranges are not reported, since discordance with absolute values may lead to misinterpretation of CBC data. Current Interpretive Data was last revised on 2017. RBC morphology Present(A) [facility] Anisocytosis Slight(A) [facility] Platelet estimate Adequate [facility] Blood 11/07/2024 12:3 5 AM REFINERY PROCESS ENGINEER 11/07/2024 1:12 AM REFINERY PROCESS ENGINEER Mervat Garber MD LAB BLOOD ORDERA BLES Final Result [facility] Department [place] [address] * (ABNORMAL) CBC without differential (11/07/2024 12:35 AM REFINERY PROCESS ENGINEER) Pathologist [facility] [place] WBC 3.5(L) 3.8 - 9.9 K/cumm Hgb 9.7(L) 11.9 - 15.5 g/dL [facility] Hct 28.5(L) 35.6 - 45.5 % [facility] Plt 252 150 - 400 K/cumm [facility] MPV 9.9 9.1 - 12.3 fL [facility] RBC 3.17(L) 3.90 - 5.20 M/cumm [facility] MCV 89.9 81.3 - 96.4 fL [facility] MCH 30.6 27.1 - 33.3 pg [facility] MCHC 34.0 32.3 - 35.7 g/dL [facility] RDW CV 18.7(H) 11.1 - 14.9 % [facility] RDW SD 59.5(H) 35.7 - 48.1 fL [facility] NRBC abs 0.00 0.00 - 0.01 K/cumm [facility] Blood 11/07/2024 12:3 5 AM REFINERY PROCESS ENGINEER 11/07/2024 1:12 AM REFINERY PROCESS ENGINEER Mervat Garber MD LAB BLOOD ORDERA BLES Final Result [facility] Department [place] [address] * Uric acid (11/07/2024 12:35 AM REFINERY PROCESS ENGINEER) [facility] Uric acid 2.9 2.5 - 7.0 mg/dL Blood 11/07/2024 12:3 5 AM REFINERY PROCESS ENGINEER 11/07/2024 12:58 AM REFINERY PROCESS ENGINEER Narrative [facility] - 11/07/2024 1:36 AM REFINERY PROCESS ENGINEER Tumor lysis syndrome labs. Vicente Mandujano MD LAB BLOOD OR DERABLES Final Result Performing Organization Address [facility] Co de Phone Number [facility] [place] [address] * Phosphorus (11/07/2024 12:35 AM REFINERY PROCESS ENGINEER) [facility] Phosphorus, pl 3.9 2.3 - 4.5 mg/dL Blood 11/07/2024 12:3 5 AM REFINERY PROCESS ENGINEER 11/07/2024 12:58 AM REFINERY PROCESS ENGINEER Narrative [facility] - 11/07/2024 1:36 AM REFINERY PROCESS ENGINEER Tumor lysis syndrome labs. Vicente Mandujano MD LAB BLOOD OR DERABLES Final Result Performing Organization Address [facility] de Phone Number [facility] [place] [address] * Magnesium (11/07/2024 12:35 AM REFINERY PROCESS ENGINEER) [facility] Magnesium 1.6 1.4 - 2.5 mg/dL Blood 11/07/2024 12:3 5 AM REFINERY PROCESS ENGINEER 11/07/2024 12:58 AM REFINERY PROCESS ENGINEER Vicente Mandujano MD LAB BLOOD OR DERABLES Final Result Performing Organization Address [facility] de Phone Number [facility] [place] [address] * (ABNORMAL) Basic metabolic panel (11/07/2024 12:35 AM REFINERY PROCESS ENGINEER) [facility] Sodium 143 135 - 145 mmol/L Potassium, pl 3.2(L) 3.3 - 4.9 mmol/L [facility] Chloride 106 97 - 110 mmol/L [facility] CO2 26 22 - 32 mmol/L [facility] Anion gap 11 2 - 15 mmol/L [facility] BUN 13 6 - 25 mg/dL [facility] Creatinine 0.62 0.60 - 1.10 mg/dL [facility] Glucose 89 70 - 199 mg/dL [facility] Comment: Interpretive Data Fasting glucose >/= 126 mg/dl is diagnostic for diabetes. Fasting is defined as no caloric intake for at least 8 hours. Fasting glucose between 100 mg/dl to 125 mg/dl is diagnostic of prediabetes. In a patient with classic symptoms of hyperglycemia or hyperglycemic crisis, a random glucose >/= 200 mg/dl is diagnostic for diabetes. In the absence of unequivocal hyperglycemia, results should be confirmed by repeat testing. The classification and Diagnosis of Diabetes Diabetes Care 2021; 46: S19-S40. Current interpretive data was last revised 2022. Calcium 8.2(L) 8.5 - 10.3 mg/dL [facility] Blood 11/07/2024 12:3 5 AM REFINERY PROCESS ENGINEER 11/07/2024 12:58 AM REFINERY PROCESS ENGINEER Narrative [facility] - 11/07/2024 1:36 AM REFINERY PROCESS ENGINEER Tumor lysis syndrome labs. Vicente Mandujano MD LAB BLOOD OR DERABLES Final Result [facility] Department [place] [address] * XR Chest 1 View (11/06/2024 9:09 PM REFINERY PROCESS ENGINEER) Anatomical Region Laterality Modality Body, Chest N/A Computed Radiogr aphy 11/07/2024 7:44 AM REFINERY PROCESS ENGINEER Impressions 11/07/2024 7:44 AM REFINERY PROCESS ENGINEER The current study is compared with the prior radiograph dated 10/16/2024. Right-sided central catheter has tip overlying superior vena cava. The heart and mediastinal contours are normal. There is no mass or consolidation. There is no lymphadenopathy. There are no pleural effusions. There is no pneumothorax. There is old granulomatous disease. Previously noted left lower lobe consolidation and volume loss has resolved. Right medial cardiophrenic angle opacity is due to pericardial fat. There is no interval change.. Electronically signed by: Beata Aguilar M.D. Narrative 11/07/2024 7:44 AM REFINERY PROCESS ENGINEER EXAMINATION: 1 view chest radiograph Procedure Note Beata Aguilar MD - 11/07/2024 EXAMINATION: 1 view chest radiograph IMPRESSION: The current study is compared with the prior radiograph dated 10/16/2024. Right-sided central catheter has tip overlying superior vena cava. The heart and mediastinal contours are normal. There is no mass or consolidation. There is no lymphadenopathy. There are no pleural effusions. There is no pneumothorax. There is old granulomatous disease. Previously noted left lower lobe consolidation and volume loss has resolved. Right medial cardiophrenic angle opacity is due to pericardial fat. There is no interval change.. Electronically signed by: Beata Aguilar M.D. Mervat Garber MD IMG XR PROCEDURE S Final Result * eGFR (11/06/2024 8:56 PM REFINERY PROCESS ENGINEER) eGFR >90 >=60 mL/min/1. 73 m2 Comment: Interpretive Data Reference Interval Normal >/= 90 mL/min/1.73m2 Mildly decreased* 60 - 89 mL/min/1.73m2 Mildly to moderately decreased 45 - 59 mL/min/1.73m2 Moderately to severely decreased 30 - 44 mL/min/1.73m2 Severely decreased 15 - 29 mL/min/1.73m2 Kidney Failure < 15 mL/min/1.73m2 *Relative to young adult level Estimated glomerular filtration rate is determined by the 2020 CKD-EPI equation recommended by the National Kidney Foundation (A Unifying Approach to GFR Estimation: Recommendations of the NKF-ASK Task Force on Reassessing the Inclusion of Race in Diagnosing Kidney Disease, JASN 202). The CKD-EPI equation should not be used for patients with unstable renal function and has not been validated in children and those over 70. Current interpretive data was last reviewed 2021. Blood 11/06/2024 8:56 PM REFINERY PROCESS ENGINEER 11/06/2024 9:21 PM REFINERY PROCESS ENGINEER Mervat Garber MD LAB BLOOD ORDERA BLES Final Result Performing Organization Address City/[facility]/ZIP Co de Phone Number [facility] [place] [address] * Senior staff review (11/06/2024 8:56 PM REFINERY PROCESS ENGINEER) Pathologist [facility] [place] Senior Staff Review Specimen Blood Senior Staff Review Review Done [facility] Comment:Reviewed by senior s [email or web address].11/07/2024 08:10:47 REFINERY PROCESS ENGINEER by GP. Blood 11/06/2024 8:56 PM REFINERY PROCESS ENGINEER 11/06/2024 10:32 PM REFINERY PROCESS ENGINEER Vicente Mandujano MD LAB BLOOD OR DERABLES Final Result Performing Organization Address [facility] Co de Phone Number [facility] [place] [address] * (ABNORMAL) Manual Differential (11/06/2024 8:56 PM REFINERY PROCESS ENGINEER) Pathologist [facility] [place] Differential Manual Cells Counted 113 [facility] Neutrophil abs 2.7 1.5 - 6.5 K/cumm [facility] Imm gran abs 0.0 0.0 - 0.1 K/cumm [facility] Lymphocyte abs 0.4(L) 0.8 - 3.3 K/cumm [facility] Monocyte abs 0.4 0.2 - 0.8 K/cumm [facility] Eosinophil abs 0.0 0.0 - 0.5 K/cumm [facility] Basophil abs 0.0 0.0 - 0.1 K/cumm [facility] Neutrophil pct 74.4 % [facility] Comment: Interpretive Data Percent cell count reference ranges are not reported, since discordance with absolute values may lead to misinterpretation of CBC data. Current Interpretive Data was last revised on 2017. Lymphocyte pct 8.8 % [facility] Comment: Interpretive Data Percent cell count reference ranges are not reported, since discordance with absolute values may lead to misinterpretation of CBC data. Current Interpretive Data was last revised on 2017. Monocyte pct 10.6 % [facility] Comment: Interpretive Data Percent cell count reference ranges are not reported, since discordance with absolute values may lead to misinterpretation of CBC data. Current Interpretive Data was last revised on 2017. Eosinophil pct 0.9 % [facility] Comment: Interpretive Data Percent cell count reference ranges are not reported, since discordance with absolute values may lead to misinterpretation of CBC data. Current Interpretive Data was last revised on 2017. Basophil pct 0.9 % [facility] Comment: Interpretive Data Percent cell count reference ranges are not reported, since discordance with absolute values may lead to misinterpretation of CBC data. Current Interpretive Data was last revised on 2017. Metamyelocyte pct 0.9(H) 0.0 - 0.0 % [facility] Variant lymph pct 3.5(H) 0.0 - 0.0 % [facility] RBC morphology Present(A) [facility] Polychromasia 3-7/HPF(A) [facility] Anisocytosis Slight(A) [facility] Poikilocytosis Slight(A) [facility] Microcytes 3-7/HPF(A) [facility] Platelet estimate Adequate [facility] Comment:SSR Blood 11/06/2024 8:56 PM REFINERY PROCESS ENGINEER 11/06/2024 10:32 PM REFINERY PROCESS ENGINEER Mervat Garber MD LAB BLOOD ORDERA BLES Final Result [facility] Department [place] [address] * aPTT (11/06/2024 8:56 PM REFINERY PROCESS ENGINEER) aPTT 31 28 - 38 sec Comment: Interpretive Data Heparin therapeutic range: 66.0 - 100.0 seconds. Range based on correlation with therapeutic heparin activity range of 0.3 - 0.7 Units/mL. Current interpretive data was last revised on 2023. Blood 11/06/2024 8:56 PM REFINERY PROCESS ENGINEER 11/06/2024 9:07 PM REFINERY PROCESS ENGINEER Mervat Garber MD LAB BLOOD ORDERA BLES Final Result Performing Organization Address City/[facility] Co de Phone Number [facility] [place] [address] * Protime-INR (11/06/2024 8:56 PM REFINERY PROCESS ENGINEER) PT 12.6 9.7 - 13.0 sec INR 1.16 0.90 - 1.20 [facility] Comment: Interpretive data Oral anticoagulant therapeutic ranges: Venous thromboembolism prophylaxis or treatment: 2.0-3.0 CARDIOLOGY Standard range: 2.0-3.0 High-intensity range: 2.5-3.5 Refer to indication-specific guidelines for appropriate target ranges for prosthetic heart valve replacement. Current interpretive data was last revised on 2019. Blood 11/06/2024 8:56 PM REFINERY PROCESS ENGINEER 11/06/2024 9:07 PM REFINERY PROCESS ENGINEER us Mervat Garber MD LAB BLOOD ORDERA BLES Final Result Performing Organization Address [facility] [place] [address] * Fibrinogen (11/06/2024 8:56 PM REFINERY PROCESS ENGINEER) Pathologist [facility] [place] Fibrinogen 172 170 - 400 mg/dL Blood 11/06/2024 8:56 PM REFINERY PROCESS ENGINEER 11/06/2024 9:07 PM REFINERY PROCESS ENGINEER Mervat Garber MD LAB BLOOD ORDERA BLES Final Result Performing Organization Address [facility] Co de Phone Number [facility] [place] [address] * (ABNORMAL) CBC without differential (11/06/2024 8:56 PM REFINERY PROCESS ENGINEER) WBC 3.6(L) 3.8 - 9.9 K/cumm Hgb 10.4(L) 11.9 - 15.5 g/dL [facility] Hct 30.7(L) 35.6 - 45.5 % [facility] Plt 283 150 - 400 K/cumm [facility] MPV 9.6 9.1 - 12.3 fL [facility] RBC 3.40(L) 3.90 - 5.20 M/cumm [facility] MCV 90.3 81.3 - 96.4 fL [facility] MCH 30.6 27.1 - 33.3 pg [facility] MCHC 33.9 32.3 - 35.7 g/dL [facility] RDW CV 18.6(H) 11.1 - 14.9 % [facility] RDW SD 58.2(H) 35.7 - 48.1 fL [facility] NRBC abs 0.00 0.00 - 0.01 K/cumm [facility] Blood 11/06/2024 8:56 PM REFINERY PROCESS ENGINEER 11/06/2024 9:20 PM REFINERY PROCESS ENGINEER Mervat Garber MD LAB BLOOD ORDERA BLES Final Result [facility] Department [place] [address] * Type and screen (11/06/2024 8:56 PM REFINERY PROCESS ENGINEER) Pathologist [facility] [place] ABO Rh A Positive Bing, indirect Negative [facility] Blood 11/06/2024 8:56 PM REFINERY PROCESS ENGINEER 11/06/2024 9:17 PM REFINERY PROCESS ENGINEER Narrative [facility] - 11/06/2024 10:04 PM REFINERY PROCESS ENGINEER Has the patient had Daratumumab or Isatuximab in the past 6 months?->Unknown Mervat Garber MD LAB BLOOD BANK T EST ORDERABLES Final Result [facility] [place] [address] * Uric acid (11/06/2024 8:56 PM REFINERY PROCESS ENGINEER) Uric acid 3.1 2.5 - 7.0 mg/dL Comment:Repeated and Verifie d Blood 11/06/2024 8:56 PM REFINERY PROCESS ENGINEER 11/06/2024 9:21 PM REFINERY PROCESS ENGINEER Mervat Garber MD LAB BLOOD ORDERA BLES Final Result Performing Organization Address [facility] [place] [address] * Phosphorus (11/06/2024 8:56 PM REFINERY PROCESS ENGINEER) Pathologist [facility] [place] Phosphorus, pl 3.9 2.3 - 4.5 mg/dL Blood 11/06/2024 8:56 PM REFINERY PROCESS ENGINEER 11/06/2024 9:21 PM REFINERY PROCESS ENGINEER Mervat Garber MD LAB BLOOD ORDERA BLES Final Result Performing Organization Address [facility] Co de Phone Number [facility] [place] [address] * Magnesium (11/06/2024 8:56 PM REFINERY PROCESS ENGINEER) Pathologist [facility] [place] Magnesium 1.9 1.4 - 2.5 mg/dL Blood 11/06/2024 8:56 PM REFINERY PROCESS ENGINEER 11/06/2024 9:21 PM REFINERY PROCESS ENGINEER Mervat Garber MD LAB BLOOD ORDERA BLES Final Result Performing Organization Address [facility] Co de Phone Number [facility] [place] [address] * (ABNORMAL) Lactate dehydrogenase (LD) (11/06/2024 8:56 PM REFINERY PROCESS ENGINEER) Lactate dehydrogenase (LDH) 257(H) 100 - 250 Units/L Blood 11/06/2024 8:56 PM REFINERY PROCESS ENGINEER 11/06/2024 9:21 PM REFINERY PROCESS ENGINEER Mervat Garber MD LAB BLOOD ORDERA BLES Final Result [facility] Department [place] [address] * (ABNORMAL) Comprehensive metabolic panel (11/06/2024 8:56 PM REFINERY PROCESS ENGINEER) Pathologist [facility] [place] Sodium 141 135 - 145 mmol/L Potassium, pl 3.5 3.3 - 4.9 mmol/L [facility] Chloride 102 97 - 110 mmol/L [facility] CO2 29 22 - 32 mmol/L [facility] Anion gap 10 2 - 15 mmol/L [facility] BUN 10 6 - 25 mg/dL [facility] Creatinine 0.67 0.60 - 1.10 mg/dL [facility] Glucose 92 70 - 199 mg/dL [facility] Comment: Interpretive Data Fasting glucose >/= 126 mg/dl is diagnostic for diabetes. Fasting is defined as no caloric intake for at least 8 hours. Fasting glucose between 100 mg/dl to 125 mg/dl is diagnostic of prediabetes. In a patient with classic symptoms of hyperglycemia or hyperglycemic crisis, a random glucose >/= 200 mg/dl is diagnostic for diabetes. In the absence of unequivocal hyperglycemia, results should be confirmed by repeat testing. The classification and Diagnosis of Diabetes Diabetes Care 2021; 46: S19-S40. Current interpretive data was last revised 2022. Calcium 8.8 8.5 - 10.3 mg/dL [facility] Bilirubin, total 0.8 0.1 - 1.2 mg/dL [facility] Protein, pl 6.2(L) 6.5 - 8.5 g/dL [facility] Albumin 3.6 3.5 - 5.0 g/dL [facility] Alk phos 187(H) 40 - 130 Units/L [facility] ALT 48(H) 7 - 45 Units/L [facility] AST 33 10 - 45 Units/L [facility] Blood 11/06/2024 8:56 PM REFINERY PROCESS ENGINEER 11/06/2024 9:21 PM REFINERY PROCESS ENGINEER Mervat Garber MD LAB BLOOD ORDERA BLES Final Result [facility] Department [place] [address] * Measurable Residual Disease (MRD) MyeloSeq Heme NGS Panel with Interpretation (11/04/2024 12:03 PM REFINERY PROCESS ENGINEER) Bone Marrow Biopsy 11/04/2024 12:03 PM REFINERY PROCESS ENGINEER 11/04/2024 4:25 PM REFINERY PROCESS ENGINEER Narrative 11/17/2024 10:10 PM CDT [facility] Services [address] [place], [place] [id number] Final Report Patient Name: RENU DURON Address: [address] [place] [address] Gender: F : 1965 (Age: 59) Accessioned: 11/05/2024 Taken: 11/04/2024 Received: 11/04/2024 Physician(s): Vicente Mandujano MD Service: [facility] Location: [facility] #: [id number] Patient Type: [facility] MyeloSeq-MRD Molecular DiagnosticsReported:11/17/2024 Varients Detected: GENE EXON VARIANT PROTEIN CHANGE VAF CLINICAL SIGNIFICANCE* PREVIOUSLY DETECTED DNMT3A 23 MISSENSE R882C 5% PATHOGENIC YES TET2 3 STOP GAINED C237* 0.12% PATHOGENIC YES*Please see below for variant classification category details The following prior mutations were not detected: NPM1:K282Mzw*12, KRAS:G12D, FLT3:ITD No mutations were detected in the following sequenced genes and hotspots: ASXL1, BCOR, BCORL1, BRAF, CALR, CBL, CEBPA, CHEK2, CSF3R, CUX1, DDX41, ETNK1, ETV6, EZH2, FLT3, GATA1, GATA2, GNB1, IDH1, IDH2, JAK2, KIT, KMT2A, KRAS, MPL, MYC, NF1, NOTCH1, NPM1, NRAS, PHF6, PIGA, PPM1D, PRPF8, PTPN11, RAD21, RUNX1, SETBP1, SF3B1, SMC1A, SMC3, SRSF2, STAG2, STAT3, STAT5B, SUZ12, TP53, U2AF1, UBA1, UBTF, WT1, ZRSR2 Variant Interpretation: Previously identified variants in FLT3, KRAS, and NPM1, are not seen, consistent with mutation clearance and measurable residual disease (MRD) negative status at a sensitivity of at least 0.1% VAF. In addition, previously identified variants in DNMT3A and TET2 are again seen, consistent with persistent clonal hematopoiesis. We note that the persistence of isolated variants in DNMT3A and TET2 after treatment is not associated with an increased risk of relapse in patients with acute myeloid leukemia (PMID: 11632271). 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 Corresponding bone marrow biopsy ([id number]) shows normocellular marrow with progressive multilineage hematopoiesis without increased blasts. Corresponding cytogenetic studies ([id number]) show no evidence of clonal aberrations. Specimen site: Bone marrow Variant Detail: Gene Location (GRCh38) Reference allele Variant allele Transcript:Coding change Population Frequency* DNMT3A chr2:[id number] G A [id number]:c.2644C>T 0.047% TET2 chr4:567682119 T A [id number]:c.711T>A none*The population allele frequency represents the maximum observed allele frequency in a diverse set of worldwide populations. QC Data: The following hotspots passed sequencing QC metrics: BRAF (codon 600), CALR (codon 9), CEBPA (codon domain), DNMT3A (codon 882), FLT3 (codons [phone],[phone]), IDH1 (codon 132), IDH2 (codons 140,172), JAK2 (codon 617), KIT (codon 816), KRAS (codons 61,12-13), MPL (codon 515), NPM1 (codons 287-288), NRAS (codons 61,12-13), SF3B1 (codons [phone]), SRSF2 (codons 95,103), TP53 (codons 238,248,273,275), U2AF1 (codons 34,157), UBA1 (codon 41) The following target genes failed minimum sequencing QC metrics (>=95% of positions >=250x): no genes failed QC Myeloseq Assay Version 3.0 This laboratory developed test (LDT) was developed and its performance characteristics determined by the CLIA Licensed Environment laboratory at the [facility] at [facility] ([facility], CLIA #[id number], CAP #[id number]), Dr. Walt Calle MD, PhD, FCAP, Green Chain Puller. [address] [facility], [address] [place] [id number] . The [facility] laboratory is regulated under CLIA as certified to perform high-complexity testing. Interpretation of sequencing results and case sign out is performed by Pathology and Immunology faculty in the Division of Genomic and Molecular Pathology (-[facility], CLIA #[id number], CAP #[id number]) Dr. Josselyn Thomas Ph.D., Green Chain Puller. [facility], [facility], [address], [place] [address] [phone] . The [facility] is regulated under CLIA as certified to perform high-complexity testing. This test has not been cleared or approved by the FDA. This test uses hybridization capture-based enrichment that incorporates unique molecular identifiers (DEBI) coupled with Illumina-based next generation sequencing. A total of 54 genes and hotspots (partial genes) are targeted by the assay using approximately 30GBases of sequencing data generated on an Illumina NovaSeq X Plus. This test has been validated according to CAP guidelines for the detection of single nucleotide variants (SNVs) and indels (max validated size 117bp). This assay has two limits of detection: for new variants (not previously reported by NopsecoSeq) sensitivity is limited to 2% VAF; for previously reported variants the sensitivity is >95% for variants with VAFs >0.1%. The actual limit of detection (LOD) for known variants is limited by coverage at the sequenced position. This test does not use paired normal (germline) DNA to determine the somatic status of detected variants; somatic status for detected variants is inferred if the maximum observed allele frequency in a diverse set of worldwide populations is <0.1%. Common population polymorphisms (SNPs) are not reported by this assay and this assay does not distinguish rare inherited (constitutional variants) from somatic variants; should there be sufficient clinical concern for a constitutional cancer-associated mutation, please contact the laboratory for additional testing information. All variants are reported using HGVS nomenclature based on GRCh38 genomic coordinates. Transcripts are reported using the most canonical reference. Variants detected by this assay are classified into one of the following five categories: 1. Potentially therapeutic: target or biomarker for FDA-approved therapies. 2. Pathogenic: recurrent finding in high-quality peer-reviewed studies or meets the criteria for disease-related somatic mutation by NCCN guidelines. 3. Possibly germline: possibly germline variant based on VAF and population frequency; this assay is not designed to detect germline variants; confirmatory germline testing is required to determine the origin of any reported variant. Note: in the post-transplant setting, possibly germline variants are subclassified as possibly germline, recipient-derived or possibly germline, donor-derived based on comparison to historical results, if available. 4. Possibly donor-derived: detected after stem cell transplant in an engrafted patient but not present in pre-transplant studies, most consistent with donor- derived clonal hematopoiesis. 5. Uncertain significance: does not meet any of the above criteria and is therefore of uncertain clinical significance. Molecular testing using these methods is expected to be accurate. However, the chance of a false positive or false negative result due to laboratory errors incurred during any phase of testing cannot be completely excluded. [facility] does not have control over the quantity, quality or provenance of specimens originating from outside institutions. Accordingly, [facility] disclaims any and all responsibility and liability arising from a false positive or false negative result that may arise from an insufficient quantity of specimen, poor specimen quality, or contamination of specimen. This Report was generated using the materials and methods described above, which required the use of various reagents, protocols, instruments, software, databases, and other items, some of which were provided or made accessible by third parties. A defect or malfunction in any such reagents, protocols, instruments, software, databases, and/or other items may compromise the quality or accuracy of the Report. The Report has been created based on, or incorporates references to, various scientific manuscripts, references, and other sources of information, including without limitation manuscripts, references, and other sources of information that were prepared by third parties that describe correlations between certain genetic mutations and particular diseases (and/or certain therapeutics that may be useful in ameliorating the effects of such diseases). Such information and correlations are subject to exchange operator time in response to future scientific and medical findings. makes no representation or warranty of any kind, expressed or implied, regarding the accuracy of the information provided by or contained in such manuscripts, references, and other sources of information. If any of the information provided by or contained in such manuscripts, references, and other sources is later determined to be inaccurate, the accuracy and quality of the Report may be adversely impacted. is not obligated to notify you of any impact that future scientific or medical research findings may have on the Report. The Report must always be interpreted and considered within the clinical context, and a physician should always consider the Report along with all other pertinent information and data that a physician would prudently consider prior to providing a diagnosis to a patient or developing and implementing a plan of care for a patient. The Report should never be considered or relied upon alone in making any diagnosis or prognosis. The manifestation of many diseases are caused by more than one gene variant, a single gene variant may be relevant to more than one disease, and certain relevant gene variants may not have been considered in the Report. In addition, many diseases are caused or influenced by modifier genes, epigenetic factors, environmental factors, and other variables that are not addressed by the Report (or that are otherwise unknown). As such, the relevance of the Report should be interpreted in the context of a patient's clinical manifestations. The Report provided by [facility] is provided on an IS basis. makes no representation or warranty of any kind, expressed or implied, regarding the Report. In no event shall [facility] be liable for any actual damages, indirect damages, and/or special or consequential damages arising out of or in any way connected with the Report, your use of the Report, your reliance on the Report, or any defect or inaccurate information included within the Report. Serge Perez MD, PhDReport Electronically Reviewed and Signed Out By Serge Perez MD, PhD 11/17/2024 22:08:56 Vicente Mandujano MD LAB PATHOLOG Y ORDERABLES Final Result * Cytogenetics (11/04/2024 12:03 PM REFINERY PROCESS ENGINEER) Bone Marrow Biopsy 11/04/2024 12:03 PM REFINERY PROCESS ENGINEER 11/04/2024 12:03 PM REFINERY PROCESS ENGINEER Narrative 11/16/2024 8:40 PM CDT EPIC results best viewed via link to PDF [facility] Department of Pathol [address] [place] [address] Patient Information Name: RENU DURON Gender: Brandon : 1965 (Age: 59) Tissue: Bone Marrow w/ FISH Visit Information Hospital #: [id number] Facility: [facility] Service: [facility] Location: [facility] Patient Type: [facility] Specimen Information: Culture #: [id number] Date Collected: 11/04/2024 Date Accessioned: 11/05/2024 Date Ordered: 11/04/2024 Physician(s): Vicente Mandujano MD Processing: Direct unstimulated - 24 hours unstimulated Indication: Acute myeloblastic leukemia Specimen Quality: Adequate: FISH Adequate: Chromosome analysis CLINICAL REPORT CHROMOSOME ANALYSIS Metaphases Counted: 20Banding Technique: GTWColonies Counted: Metaphases Analyzed: 20Additional Method: FISHNumber of Cultures: 1Metaphases Karyotyped: 3Banding Resolution: 400Subculture: Karyotype: 46,XX[20].nuc radhames (MECOM)x2[200],(EGR1)x2[200],(L7C181)x2[200],(D8Z2)x2[200],(JEMY3G3,RUNX1)x2[200 ], (ASS1,ABL1,BCR)x2[200],(KMT2A)x2[200],(PML,BJ)x2[200],(CBFB)x2[200] Diagnosis: CHROMOSOME ANALYSIS: NO EVIDENCE OF CLONAL ABERRATIONS FISH FINDINGS: NO EVIDENCE OF DELETION/MONOSOMY OF EGR1 (5q) AND Y0Z170 (7q) NO EVIDENCE OF REARRANGEMENTS OF MECOM, GTQA6M9::RUNX1, BCR::ABL1, PML::BJ, KMT2A OR CBFB NO EVIDENCE OF TRISOMY 8 INTERPRETATION: No clonal cytogenetic aberrations were identified in metaphase cells analyzed from an unstimulated culture. This normal result does not exclude a neoplastic proliferation. Small chromosome anomalies may not be detectable using the standard methods employed. Chromosome analysis was performed at a level of 400 bands or greater. The chromosome findings must be interpreted within the context of the pathologic and clinical findings. Follow-up evaluation is recommended. Chromosome analysis and Fluorescence In Situ Hybridization (FISH) analysis are performed using the [employer] Imaging System. Report Electronically Reviewed and Signed Out By Josselyn Thomas, PhD, FACMGDate Reported: 5Associate Professor, Division of Genomic & Molecular Pathology FLUORESCENCE IN-SITU HYBRIDIZATION [FISH] Karyotype: nuc radhames (MECOM)x2[200],(EGR1)x2[200],(D3X503)x2[200],(D8Z2)x2[200],(ZDBW0I1,RUNX1)x2[200 ],( S1,ABL1,BCR)x2[200],(KMT2A)x2[200],(PML,BJ)x2[200],(CBFB)x2[200] Diagnosis: FISH FINDINGS: NO EVIDENCE OF DELETION/MONOSOMY OF EGR1 (5q) AND P1W591 (7q) NO EVIDENCE OF REARRANGEMENTS OF MECOM, XZZB1U8::RUNX1, BCR::ABL1, PML::BJ, KMT2A OR CBFB NO EVIDENCE OF TRISOMY 8 INTERPRETATION: FISH analysis was performed with a panel of [employer] and [employer] probes for AML and is interpreted as NORMAL. 1) FISH evaluation for an MECOM (EVI1) rearrangement was performed on nuclei with the MECOM Dual Color, Break Apart Rearrangement Probe ([employer]) at 3q26 and is interpreted as NORMAL. No rearrangement was observed in 200/200 nuclei, which is within the normal range established for this probe in the [facility] at [facility]. Up to 1% of cells in normal samples can show an apparent MECOM rearrangement using this probe. A normal MECOM FISH finding can result from the absence of a MECOM rearrangement, from a variant MECOM rearrangement or from an insufficient number of neoplastic cells in the specimen. 2) FISH evaluation for a 5q deletion was performed on nuclei with the EGR1,N2E532/S2W9616 Dual Color Probe ([employer] for EGR1 at 5q31.1 and the control P9L741/Z9Q4284 at 5p15.31 and is interpreted as NORMAL. Two EGR1 hybridization signals and two C7Q385/M9S4366 control hybridization signals were observed in 200/200 nuclei, which is within the normal range established for this probe in the [facility] Laboratory at [facility]. Up to 3.1% of cells in normal samples can show an apparent 5q deletion using this probe. A normal EGR1 FISH finding can result from the absence of a 5q deletion, from a 5q deletion that does not involve the region to which this probe hybridizes or from an insufficient number of neoplastic cells in the specimen. 3) FISH evaluation for a 7q deletion was performed on nuclei with the LSI O5G970/D7Z1 Dual Color Probe ([employer] for I0B338 at 7q31 and the control D7Z1 at 7p11.1-q11.1 and is interpreted as NORMAL. Two S4Z904 hybridization signals and two D7Z1 control hybridization signals were observed in 200/200 nuclei, which is within the normal range established for this probe set in the [facility] Laboratory at [facility]. Up to 1% of cells in normal samples can show an apparent 7q deletion using this probe. A normal L3N559 FISH finding can result from the absence of a 7q deletion, from a 7q deletion that does not involve the region to which this probe hybridizes or from an insufficient number of neoplastic cells in the specimen. 4) FISH evaluation for trisomy 8 was performed on nuclei with the D8Z2 Alpha Satellite DNA Probe at 8p11.1-q11.1 and is interpreted as NORMAL. Two D8Z2 hybridization signals were observed in 199/200 nuclei, which is within the normal range established for this probe in the [facility] Laboratory at [facility]. Up to 1.9% of cells in normal samples can show apparent trisomy 8 using this probe. A normal chromosome 8 FISH finding can result from the absence of trisomy 8 or from an insufficient number of neoplastic cells in the specimen. 5) FISH evaluation for a YQBI5F9::RUNX1 rearrangement was performed on nuclei with the LSI JWFF9P7::RUNX1 Dual Color, Dual Fusion Translocation Probe ([employer] for AJFK7D4(ETO) at 8q22 and RUNX1(AML1) at 21q22 and is interpreted as NORMAL. No rearrangement was observed in 199/200 nuclei, which is within the normal range established for this probe in the [facility] Laboratory at [facility]. Variant signal pattern was observed in 1/200 nuclei. Up to 5% of cells in normal samples can show random overlap of EROU5A1::RUNX1 probes and additional nuclei may show extra or missing signals. A normal FRCT3Z9::RUNX1 FISH finding can result from the absence of an AHBM9S0::RUNX1 rearrangement, from a variant FKTE7U8::RUNX1 rearrangement or from an insufficient number of neoplastic cells in the specimen. 6) FISH evaluation for a BCR::ABL1 rearrangement was performed on nuclei with the LSI BCR::ABL1 Tricolor, Dual Fusion Translocation Probe ([employer] for ASS1/ABL1 at 9q34 and BCR at 22q11.2 and is interpreted as NORMAL. No rearrangement was observed in 195/200 nuclei, which is within the normal range established for this probe in the [facility] Laboratory at [facility]. Variant signal pattern was observed in 5/200 nuclei. Up to 8.5% of cells in normal samples can show random overlap of BCR::ABL1 probes and additional nuclei may show extra or missing signals. A normal BCR::ABL1 FISH finding can result from the absence of a BCR::ABL1 rearrangement, from a variant BCR::ABL1 rearrangement or from an insufficient number of neoplastic cells in the specimen. 7) FISH evaluation for an KMT2A (MLL) rearrangement was performed on nuclei with the LSI KMT2A Dual Color, Break Apart Rearrangement Probe ([employer] at 11q23 and is interpreted as NORMAL. No rearrangement was observed in 200/200 nuclei, which is within the normal range established for this probe in the [facility] Laboratory at [facility]. Up to 1% of cells in normal samples can show an apparent KMT2A rearrangement using this probe. A normal KMT2A FISH finding can result from the absence of an KMT2A rearrangement, from a variant KMT2A rearrangement or from an insufficient number of neoplastic cells in the specimen. 8) FISH evaluation for a PML::BJ rearrangement was performed on nuclei with the LSI PML::BJ Dual Color, Dual Fusion Translocation Probe ([employer] for PML at 15q24 and BJ at 17q21 and is interpreted as NORMAL. No rearrangement was observed in 191/200 nuclei, which is within the normal range established for this probe in the [facility] Laboratory at [facility]. Variant signal pattern was observed in 9/200 nuclei. Up to 13% of cells in normal samples can show random overlap of PML::BJ probes and additional nuclei may show extra or missing signals. A normal PML::BJ FISH finding can result from the absence of a PML::BJ rearrangement, from a variant PML::BJ rearrangement or from an insufficient number of neoplastic cells in the specimen. 9) FISH evaluation for a CBFB rearrangement was performed on nuclei with the LSI CBFB Dual Color, Break Apart Rearrangement Probe ([employer] at 16q22 and is interpreted as NORMAL. No rearrangement was observed in 200/200 nuclei, which is within the normal range established for this probe in the [facility] Laboratory at [facility]. Up to 2% of cells in normal samples can show an apparent CBFB rearrangement using this probe. A normal CBFB FISH finding can result from the absence of a CBFB rearrangement, from a variant CBFB rearrangement or from an insufficient number of neoplastic cells in the specimen. The FISH findings must be interpreted within the context of the pathologic and clinical findings. Follow-up evaluation is recommended. Complete chromosome analysis is pending and will be reported separately. This test was developed and its performance characteristics determined by [facility]. It has not been cleared or approved by the FDA. The laboratory is regulated under CLIA as qualified to perform high-complexity testing. This test is used for clinical purposes. It should not be regarded as investigational or for research. Chromosome analysis and Fluorescence In Situ Hybridization (FISH) analysis are performed using the [employer] Compliance Imaging System. Report Electronically Reviewed and Signed Out By Josselyn Thomas, PhD, FACMGDate Reported: 11/06/2024ssociate Professor, Division of Genomic & Molecular Pathology Vicente Mandujano MD LAB GENETIC TESTING Final Result * FLT3-ITD mutation detection ([facility]) -Miscellaneous Molecular Send-Out Request (11/04/2024 12:03PM REFINERY PROCESS ENGINEER) Result 1 Test Name: _FLT3 ITD MRD by NGS ([facility]) Specimen Type: _BM Result: See attached scanned report for results. Test name FLT3 ITD MRD by NGS ([facility]) [facility] Bone marrow 11/04/2024 12:0 3 PM REFINERY PROCESS ENGINEER 11/05/2024 9:06 AM REFINERY PROCESS ENGINEER Narrative [facility] - 11/23/2024 8:55 AM CDT Collect: Whole blood or bone marrow in lavender (EDTA). Also acceptable: Whole blood in green (sodium heparin). Specimen Preparation Whole Blood: Do not freeze. Transport 5 mL whole blood. (Min: 1 mL) Bone Marrow: Do not freeze. Transport 3 mL bone marrow. (Min: 1 mL) Storage/Transport Temperature: Refrigerated. Test Requested:->FLT3-ITD mutation detection ([facility]) Vicente Mandujano MD LAB GENETIC TESTING Final Result [facility] Department [place] [address] * NPM1 PCR Quantitative ([facility]) -Miscellaneous Molecular Send-Out Request (11/04/2024 12:03 PM REFINERY PROCESS ENGINEER) Result 1 Test Name: _NPM1 by RT-PCR ([facility]) Specimen Type: _BM Result: See attached scanned report for results. Test name NPM1 by RT-PCR ([facility]) [facility] Bone marrow 11/04/2024 12:0 3 PM REFINERY PROCESS ENGINEER 11/05/2024 9:06 AM REFINERY PROCESS ENGINEER Narrative [facility] - 11/16/2024 12:09 PM CDT Collect: Whole blood or bone marrow in lavender (EDTA). Specimen Preparation Whole Blood: Transport 5 mL whole blood. (Min: 3 mL) Bone Marrow: Transport 3 mL bone marrow. (Min: 1 mL) Refrigerate immediately. Specimens must be received within 48 hours of collection due to lability of RNA. Storage/Transport Temperature: Whole Blood or Bone Marrow: CRITICAL REFRIGERATED. Separate specimens must be submitted when multiple tests are ordered. Test Requested:->NPM1 PCR Quantitative ([facility]) Vicente Mandujano MD LAB GENETIC TESTING Final Result [facility] Department [place] [address] * Cytogenetics Specimen Tracking Bone marrow (11/04/2024 12:02 PM REFINERY PROCESS ENGINEER) [facility] Tracking Order Received Bone marrow 11/04/2024 12:0 2 PM REFINERY PROCESS ENGINEER 11/04/2024 2:42 PM REFINERY PROCESS ENGINEER Narrative [facility] - 11/05/2024 9:22 AM REFINERY PROCESS ENGINEER Please read the Cytogenetics Epic requisition for specimen collection requirements.
--- OUTSIDE RECORDS SUMMARY | 2025-01-02 15:41 | XMS_ITS | Referral Summary ---
Author Organization [facility] [address] [place] [address] Care Team Providers Care Fiscal Agent Name Role Phone Grey Ayala MD Primary Care Provider Vicente Duke MD Unavailable Encounters Date Type Department Care Team Description 01/01/2025 Telephone [facility]plant [address] [place] [address] [address] [place] [phone] Elizabeth Ford NP 01/01/2025 Telephone [facility] [address] [place] [phone] Elizabeth Fodr NP 01/01/2025 Orders Only [facility] [address] [place] [address] 6 [place] [phone] Peter Frances RN AML (acute myeloid leukemia) in relapse (HCC) (Primary Dx); Acute 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) 01/01/2025 9:05 AM CDT - 01/01/2025 11:59 PM CDT Hospital Encounter [facility] - [place] [address] [place] [address] Floor 8 [place] [address] Cellulitis of labia; Pseudomonas infection; Encounter for screening examination for sexually transmitted disease; Acute 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) Discharge Disposition: Discharge to home or self care 01/01/2025 10:30 AM CDT Lab [facility] - Lab Collection [address] [place] [address] Floor 6 [place] [address] Acute 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) 01/01/2025 11:30 AM CDT Office Visit [facility]plant [address] [place] [address] 6 [place] [phone] Diana Cole NP Acute 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) (Primary Dx) 12/25/2024 3:45 PM CDT Lab [facility] - Lab Collection [address] [place] [address] Floor 5 [place] [address] Cellulitis of labia; Pseudomonas infection; Encounter for screening examination for sexually transmitted disease; Acute 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) 12/25/2024 2:40 PM CDT Office Visit [facility] Infectious Diseases [address] [place] [address] Floor 1, [address] [place] [phone] Marta Cassidy NP Cellulitis of labia (Primary Dx); Pseudomonas infection; Encounter for screening examination for sexually transmitted disease; Acute 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) 12/22/2024 Orders Only [facility] [address] [place] [phone] Peter Frances RN Acute 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) (Primary Dx) 12/09/2024 Telephone [facility] [address] [place] [phone] Vicente Duke MD 12/08/2024 Orders Only [facility] [address] [place] [address] Vicente Duke MD 12/08/2024 Orders Only [facility] [address] [place] [address] Vicente Duke MD 12/08/2024 Orders Only [facility] [address] [place] [address] Vicente Duke MD 12/08/2024 1:15 PM CDT Lab [facility] - Lab Collection [address] [place] [address] Acute 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) 12/08/2024 Telephone [facility] Dermatology [address] [facility] [address] [place] [phone] Catalina Swanson 12/08/2024 12:30 PM CDT Infusion [facility] - Infusion [address] [place] [address] Acute 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) 12/08/2024 10:30 AM CDT Lab [facility] - Lab Collection [address] [place] [address] Acute 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); Gastroesophageal reflux disease without esophagitis 12/08/2024 11:20 AM CDT Office Visit [facility]plant [address] [place] [phone] Vicente Duke MD Acute 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) (Primary Dx) 12/04/2024 Orders Only [facility] [address] [place] [phone] Peter Frances RN Acute 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) (Primary Dx) 11/14/2024 8:43 PM CDT - 12/04/2024 6:04 PM CDT Hospital [address] [phone] Vicente Duke MD Ghobadi, Armin, MD Oetjen, Karolyn Ann, MD PhD Dominique Pino MD Neutropenic fever (Primary Dx); Other pancytopenia (HCC) Discharge Disposition: Discharge to home or self care 12/03/2024 Orders Only [facility] [address] [place] [phone] Vicente Duke MD Acute 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) (Primary Dx) 11/23/2024 Orders Only [address] [phone] Glenny Schroeder AML (acute myeloid leukemia) in relapse (HCC) (Primary Dx) 11/17/2024 Orders Only [address] [phone] Glenny Schroeder 11/14/2024 7:03 PM CDT - 11/14/2024 11:59 PM CDT Hospital Encounter [facility] [address] [place] [address] Discharge Disposition: Discharge to home or self care 11/14/[address] [phone] Astrid Velazquez NP [place] 11/13/2024 Orders Only [facility] [address] [place] [address] Petre Frances, RN Gastroesophageal reflux disease without esophagitis (Primary Dx) 11/13/2024 Orders Only [facility] [address] [place] [address] Peter Frances, RN 11/13/2024 8:30 AM CDT Clinical Support [facility] - Lab Collection [facility] Floor 6 [place] [address] Acute 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) 11/13/2024 9:30 AM CDT Infusion [facility] - Infusion [address] [facility] Floor 5 [place] [address] Acute 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) 11/12/2024 Telephone [facility] [address] [place] [address] Peter Frances, RN 11/11/2024 Orders Only [facility] Floor 6 [place] [address] Vicente Duke MD Acute 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) (Primary Dx) 11/06/2024 8:18 PM [facility] - 11/11/2024 4:00 PM CDT Hospital Encounter [address] [phone] Vicente Duke MD Ghobadi, Armin, MD Obeidat, Ahmad Yasin Mohammad, MD Acute 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) (Primary Dx); Other pancytopenia (HCC) Discharge Disposition: Discharge to home or self care 11/10/2024 Orders Only [facility] [address] [place] [phone] Peter Frances RN Acute 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) (Primary Dx) 11/10/2024 Orders Only [facility] [address] [place] [phone] Luisa Abdul [facility] Acute 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) (Primary Dx) 11/10/2024 Orders Only [facility] [address] [place] [phone] Vicente Duke MD 11/10/2024 Orders Only [facility] [address] [place] [phone] Peter Frances RN Acute 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) (Primary Dx) 11/10/2024 Orders Only [facility] [address] [place] [phone] Vicente Duke MD Acute 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) 11/09/2024 Documentation [facility] Pharmacy [address] [place] [address] Luz Marina Clay CPhT Prior Auth (RYDAPT ) 11/06/2024 Documentation [facility] [address] [place] [phone] Stacy Babin CMA 11/05/2024 Telephone [facility] [address] [place] [phone] Sabrina Hemphill RMA Prior Auth 11/04/2024 Orders Only [facility] [address] [place] [address] Vicente Duke MD 11/04/2024 Orders Only [facility] [address] [place] [address] Vicente Duke MD 11/04/2024 2:39 PM [facility] - 11/04/2024 11:59 PM [facility] Hospital Encounter [facility] [address] [place] [address] Acute 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) Discharge Disposition: Discharge to home or self care 11/04/2024 Telephone [facility]plant [address] [place] [phone] Vicente Duke MD 11/04/2024 Orders Only [facility] [address] [place] [phone] Peter Frances RN Acute 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) (Primary Dx) 11/04/2024 Orders Only [address] [phone] Vicente Duke MD 11/04/2024 11:00 AM [facility] Infusion [facility] [address] [address] Acute 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) 11/03/2024 1:00 PM [facility] Clinical Support [facility] Lab Collection [address] [place] [address] Acute 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) 11/03/2024 1:30 PM [facility] Lab [facility] Oncology Lab [address] [place] [phone] 11/03/2024 2:40 PM [facility] Office Visit [facility] [address] [place] [phone] Vicente Duke MD Acute 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) (Primary Dx) 10/30/2024 Telephone [facility]plant [address] [place] [phone] Peter Frances RN 10/28/2024 Orders Only [facility] [address] [place] [phone] Vicente Duke MD Acute 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) (Primary Dx) 09/29/2024 1:38 PM [facility] - 10/28/2024 2:35 PM [facility] Hospital Encounter [address] [phone] Marcus Vergara MD Other pancytopenia (HCC) (Primary Dx); Leukocytosis, unspecified type; Acute 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); Altered bowel function; Hypokalemia Discharge Disposition: Discharge to home or self care 10/07/2024 Orders Only [facility] Oncology [address] [place] [phone] Rickey Velásquez MD from Last 3 Months Allergies Active Allergy Reactions Criticality Noted Date Comments Ceftriaxone Itching Low 11/15/2024 Per family. Occurred at OSH Oxycodone Nausea only Low 10/01/2024 Medications ALPRAZolam (XANAX) 0.25 mg tablet TK 1 T PO QD PRN 0 019 Active citalopram (CeleXA) 20 mg tablet 3 [...] day for 7 days 14 tablet/caps ule 025 2024 gilteritinib (XOSPATA) 40 mg tabletIndications [...] note is d ifferent from the original. HMP Inpatient Care Coordination Diagnosis Poss AML hx of breast CA Reason for Admission Leukocytosis- transfer from [facility] HCT/I[facility] Notes Discharge Planning Patient Education Completed [x] Discharge Disposition []SNF/Rehab: [][facility] [x]Home - distance from [facility] 30 min Caregiver: Josselyn (spouse) Requests Sent to []Case Management: []MAs: []Pharmacy PA team: Specialty Medications Med Pharmacy Refills Pt Aware [] Post-Discharge Follow-Up [facility] Local Oncologist Contact Name: Nurse: Phone: Fax: Supportive care plan Location Scheduled for [facility] Transfusions Infusion Appts Other Orders H30 [] [place] [] Locally at ____ [] [] frequency [] for & frequency ____ [] Jalen with bsx prior 11/03 Follow-Up [] Restaging: ____ [] Other pending items: Problem Noted Date Diagnosed Date Cellulitis of labia 12/25/2024 Pseudomonas infection 12/25/2024 Neutropenic sepsis 11/14/2024 Assessment & Plan (12/03/2024 1:49 PM CDT): ANC 0.0 Tmax 103 resolved on admission. BCx x2 drawn at [facility], RPP negative, UA noninfectious, CXR clear. After admission, developed hypotension to 90s/40s. S/p 1L NS in [facility], 2L here. Lactate downtrended to [...] tissue infection or drainable fluid collection - [facility] consulted, no surgical intervention - 1 of 2 blood cultures with Pseudomonas Aeruginosa. Cheng-sensitive. - Removed nontunneled RIJ CVC on 11/16 with planned at least 24h line holiday - Perineal erythema spreading 11/18. Add topical miconazole and change fluconazole to micafungin for possible dee. Repeat CT without fluid collection or gas formation. [facility] has re-evaluated. - Dermatology also consulted. Swab [...] ChromoSeq: DNMT3A (37%), TET2 (49%), NPM1 (39%), [id number], FLT3-ITD (21%), FLT3-ITD AR 0.4; MyeloSeq: DNMT3A [...] gilteritinib for septic shock/active infection. 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 Complicated with mucositis/esophagitis/diarrhea and [...] daily Assessment & Plan (11/06/2024 9:14 PM [facility] [employer] [facility]): Continue citalopram 20 mg daily AML (acute myeloblastic leukemia) 10/02/2024 Leucocytosis 09/29/2024 Anemia 09/29/2024 Thrombocytopenia 09/29/2024 Lymphadenopathy 09/29/2024 Diplopia 09/29/2024 Acute kidney injury 09/29/2024 Elevated liver enzymes 09/29/2024 History of left breast cancer 01/22/2019 Hives 04/12/2014 Overview (12/06/2016): Urticaria Assessment & Plan (11/22/2024 12:17 PM CDT): -Takes fexofenadine 90 mg daily at home, on loratadine here Assessment & Plan (11/06/2024 9:15 PM [employer] [facility]): akes fexafenadine 90 mg daily at home, [...] PRN Assessment & Plan (11/07/2024 4:20 PM [employer] [facility]): - C1 was complicated with G-III mucositis and oral dee managed with MMW, nystatin and dexa, was unable to tolerate PO and was briefly on TPN due to ileus - Will monitor during this admission. No evidence of mucositis now. Autoimmune thyroiditis 07/08/2012 Overview (12/07/2016): Autoimmune thyroiditis Palpitations 07/08/2012 Overview (12/07/2016): Palpitations Immunizations Immunization Administration Dates Next Due Influenza, Trivalent, IM (MDV) 06/10/2014,2012 Tdap 06/17/2014 Social History Tobacco Use Types Packs/Day Years Used Date Smoking Tobacco: Never Tobacco Cessation:Counseling Given: Not Answered Alcohol Use Standard Drinks/Week Comments No 0 (1 standard drink = 0.6 oz pur e alcohol) [facility] Utilities Answer Date Recorded In the past 12 months has th e [employer], gas, oil, or water [employer] threatened to shut off services in your [...] often do you attend chur ch or islam services? 1 to 4 times per year 11/23/2024 Do you belong to any clubs o r organizations such as judaism groups, unions, fraternal or athletic groups, or [...] any time in the past 12 m [facility], were you homeless or living in a usp (including now)? No 11/23/2024 Personal Safety Answer Date Recorded Have you ever been in or are you currently in a harmful physical or emotional relationship or is someone making you feel afraid or unsafe? Denies 11/14/2024 Comments No Sex and Gender Information Value Date Recorded Sex Assigned at Not on file Legal Sex Female 2:12 AM [employer] [facility] Gender Identity Not on file Sexual Orientation [...] 12/25/2024 2:24 PM CDT Plan of Treatment Not on file [...] HEPATIC FUNCTION PANEL Timed 11/08/2024 12:41 AM [employer] [facility] Acute 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) EGFR Timed 11/08/2024 12:41 AM [employer] [facility] Acute 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) MANUAL DIFFERENTIAL Routine 11/08/2024 12:41 AM [employer] [facility] CBC WITHOUT DIFFERENTIAL Routine 11/08/2024 12:41 AM [employer] [facility] BMT CBC Routine 11/08/2024 12:41 AM [employer] [facility] URIC ACID Timed 11/08/2024 12:41 AM [employer] [facility] Acute 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) PHOSPHORUS Timed 11/08/2024 12:41 AM [employer] [facility] Acute 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) BASIC METABOLIC PANEL Timed 11/08/2024 12:41 AM [employer] [facility] Acute 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) EGFR Timed 11/07/2024 4:26 PM [employer] [facility] Acute 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) URIC ACID Timed 11/07/2024 4:26 PM [employer] [facility] Acute 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) PHOSPHORUS Timed 11/07/2024 4:26 PM [employer] [facility] Acute 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) BASIC METABOLIC PANEL Timed 11/07/2024 4:26 PM [facility] [employer] [facility] Acute 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) EGFR Timed 11/07/2024 8:47 AM [employer] [facility] Acute 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) URIC ACID Timed 11/07/2024 8:47 AM [employer] [facility] Acute 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) PHOSPHORUS Timed 11/07/2024 8:47 AM [facility] [employer] [facility] Acute 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) BASIC METABOLIC PANEL Timed 11/07/2024 8:47 AM [facility] [employer] [facility] Acute 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) EGFR Timed 11/07/2024 12:35 AM [facility] Acute 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) MAGNESIUM Timed 11/07/2024 12:35 AM [facility] [employer] [facility] Acute 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) MANUAL DIFFERENTIAL Routine 11/07/2024 12:35 AM [facility] [employer] [facility] CBC WITHOUT DIFFERENTIAL Routine 11/07/2024 12:35 AM [facility] [employer] [facility] URIC ACID Timed 11/07/2024 12:35 AM [facility] [employer] [facility] Acute 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) PHOSPHORUS Timed 11/07/2024 12:35 AM [employer] [facility] Acute 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) BASIC METABOLIC PANEL Timed 11/07/2024 12:35 AM [facility] [facility] Acute 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) BMT CBC Routine 11/07/2024 12:35 AM [employer] [facility] XR CHEST 1 VIEW IP Routine 11/06/2024 9:09 PM [employer] [facility] EGFR STAT 11/06/2024 8:56 PM [employer] [facility] SENIOR STAFF REVIEW STAT 11/06/2024 8:56 PM [employer] [facility] MANUAL DIFFERENTIAL STAT 11/06/2024 8:56 PM [employer] [facility] CBC WITHOUT DIFFERENTIAL STAT 11/06/2024 8:56 PM [employer] [employer] [facility] FIBRINOGEN STAT 11/06/2024 8:56 PM [facility] [employer] [facility] TYPE AND SCREEN STAT 11/06/2024 8:56 PM [facility] [employer] [facility] APTT STAT 11/06/2024 8:56 PM [employer] [facility] PROTIME-INR STAT 11/06/2024 8:56 PM [employer] [facility] URIC ACID STAT 11/06/2024 8:56 PM [employer] [facility] LACTATE DEHYDROGENASE STAT 11/06/2024 8:56 PM [employer] [facility] PHOSPHORUS STAT 11/06/2024 8:56 PM [employer] [facility] MAGNESIUM STAT 11/06/2024 8:56 PM [employer] [facility] COMPREHENSIVE METABOLIC PANEL STAT 11/06/2024 8:56 PM [employer] [facility] BMT CBC STAT 11/06/2024 8:56 PM [employer] [employer] [facility] MEASURABLE RESIDUAL DISEASE (MRD) MYELOSEQ HEME NGS PANEL WITH INTERPRETATION Routine 11/04/2024 12:03 PM [employer] [employer] [facility] CYTOGENETICS Routine 11/04/2024 12:03 PM [employer] MISCELLANEOUS MOLECULAR SEND-OUT REQUEST Routine 11/04/2024 12:03 PM [employer] [facility] Acute 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) MISCELLANEOUS MOLECULAR SEND-OUT REQUEST Routine 11/04/2024 12:03 PM [employer] [employer] [facility] Acute 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) SURGICAL PATHOLOGY Routine 11/04/2024 12:02 PM [employer] [facility] Acute 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) FLOW LEUKEMIA/LYMPHOMA Routine 11/04/2024 12:02 PM [facility] [employer] [facility] Acute 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) CYTOGENETICS TRACKING ORDER Routine 11/04/2024 12:02 PM [employer] [facility] Acute 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) HEMATOLOGIC MOLECULAR ALGORITHM Routine 11/04/2024 12:02 PM [employer] [facility] Acute 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) MYELOSEQ TRACKING ORDER Routine 11/04/2024 12:02 PM [facility] [employer] [facility] Acute 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) MINIMAL RESIDUAL DISEASE-AML Routine 11/04/2024 12:02 PM [employer] [facility] Acute 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) EGFR STAT 11/03/2024 1:14 PM [employer] [facility] Acute 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) DIFFERENTIAL AUTO STAT 11/03/2024 1:14 PM [employer] [facility] Acute 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) AMYLASE Routine 11/03/2024 1:14 PM [facility] [employer] [facility] Acute 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) LIPASE Routine 11/03/2024 1:14 PM [employer] [employer] [facility] Acute 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) BILIRUBIN, DIRECT Routine 11/03/2024 1:14 PM [employer] [facility] Acute 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) MAGNESIUM Routine 11/03/2024 1:14 PM [employer] [employer] [facility] Acute 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) PHOSPHORUS Routine 11/03/2024 1:14 PM [employer] [facility] Acute myeloid 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) CBC WITH AUTO DIFFERENTIAL STAT 11/03/2024 1:14 PM [employer] Acute myeloid leukemia not having achieved remission (HCC) COMPREHENSIVE METABOLIC PANEL STAT 11/03/2024 1:14 PM [employer] [facility] Acute myeloid leukemia not having achieved remission (HCC) LACTATE DEHYDROGENASE STAT 11/03/2024 1:14 PM [employer] [facility] Acute myeloid leukemia not having achieved remission (HCC) TYPE AND SCREEN STAT 11/03/2024 1:14 PM [employer] [facility] Acute myeloid leukemia not having achieved remission (HCC) CMV, IGG STAT 11/03/2024 1:14 PM [employer] [facility] Acute myeloid leukemia not having achieved remission (HCC) EGFR Routine 10/28/2024 12:27 AM [employer] [facility] MANUAL DIFFERENTIAL Routine 10/28/2024 12:27 AM [employer] [facility] CBC WITHOUT DIFFERENTIAL Routine 10/28/2024 12:27 AM [employer] [facility] HEPATIC FUNCTION PANEL Routine 10/28/2024 12:27 AM [employer] [facility] BASIC METABOLIC PANEL Routine 10/28/2024 12:27 AM [facility] [employer] [facility] PHOSPHORUS Routine 10/28/2024 12:27 AM [facility] [employer] [facility] MAGNESIUM Routine 10/28/2024 12:27 AM [facility] [facility] BMT CBC Routine 10/28/2024 12:[address] ABDOMEN PELVIS WO CONTRAST IP Routine 10/27/2024 11:14 AM [employer] [facility] XR ABDOMEN AP 1 VIEW IP Routine 10/27/2024 8:25 AM [employer] [facility] POCT GLUCOSE DEVICE Routine 10/27/2024 6:10 AM [facility] EGFR Routine 10/27/2024 12:34 AM [facility] [employer] [facility] MANUAL DIFFERENTIAL Routine 10/27/2024 12:34 AM [facility] [employer] [facility] CBC WITHOUT DIFFERENTIAL Routine 10/27/2024 12:34 AM [facility] [employer] [facility] HEPATIC FUNCTION PANEL Routine 10/27/2024 12:34 AM [employer] [facility] BASIC METABOLIC PANEL Routine 10/27/2024 12:34 AM [facility] [employer] [facility] PHOSPHORUS Routine 10/27/2024 12:34 AM [facility] [employer] [facility] MAGNESIUM Routine 10/27/2024 12:34 AM [facility] [employer] [facility] BMT CBC Routine 10/27/2024 12:34 AM [employer] [facility] XR ABDOMEN AP 1 VIEW IP Routine 10/26/2024 11:16 AM [employer] TRANSFUSE RED BLOOD CELLS Timed 10/26/2024 6:03 AM [employer] [facility] Other pancytopenia (HCC) PREPARE RBC Timed 10/26/2024 2:32 AM [employer] [facility] Other pancytopenia (HCC) EGFR Routine 10/26/2024 12:57 AM [employer] [facility] BILIRUBIN, DIRECT Routine 10/26/2024 12:57 AM [employer] [facility] MANUAL DIFFERENTIAL Routine 10/26/2024 12:57 AM [employer] [facility] CBC WITHOUT DIFFERENTIAL Routine 10/26/2024 12:57 AM [employer] [facility] PROTIME-INR Routine 10/26/2024 12:57 AM [employer] [facility] APTT Routine 10/26/2024 12:57 AM [employer] [facility] LACTATE DEHYDROGENASE Routine 10/26/2024 12:57 AM [employer] URIC ACID Routine 10/26/2024 12:57 AM [facility] [employer] [facility] COMPREHENSIVE METABOLIC PANEL Routine 10/26/2024 12:57 AM [employer] [facility] TYPE AND SCREEN Timed 10/26/2024 12:57 AM [employer] [facility] PHOSPHORUS Routine 10/26/2024 12:57 AM [employer] [facility] MAGNESIUM Routine 10/26/2024 12:57 AM [employer] [facility] BMT CBC Routine 10/26/2024 12:57 AM [employer] [facility] POCT GLUCOSE DEVICE Routine 10/26/2024 12:54 AM [employer] POCT GLUCOSE DEVICE Routine 10/25/2024 12:24 PM [employer] [facility] POCT GLUCOSE DEVICE Routine 10/25/2024 7:50 AM [employer] [facility] POCT GLUCOSE DEVICE Routine 10/25/2024 12:46 AM [employer] [facility] EGFR Routine 10/25/2024 12:46 AM [employer] [facility] MANUAL DIFFERENTIAL Routine 10/25/2024 12:46 AM [employer] [facility] CBC WITHOUT DIFFERENTIAL Routine 10/25/2024 12:46 AM [employer] [facility] HEPATIC FUNCTION PANEL Routine 10/25/2024 12:46 AM [employer] [facility] BASIC METABOLIC PANEL Routine 10/25/2024 12:46 AM [employer] [facility] PHOSPHORUS Routine 10/25/2024 12:46 AM [employer] [facility] MAGNESIUM Routine 10/25/2024 12:46 AM [employer] [facility] BMT CBC Routine 10/25/2024 12:46 AM [employer] [facility] POCT GLUCOSE DEVICE Routine 10/24/2024 5:52 PM [employer] POCT GLUCOSE DEVICE Routine 10/24/2024 12:00 PM [employer] IMMATURE PLATELET FRACTION Routine 10/24/2024 12:36 AM [employer] [facility] EGFR Routine 10/24/2024 12:36 AM [employer] [facility] MANUAL DIFFERENTIAL Routine 10/24/2024 12:36 AM [employer] [facility] CBC WITHOUT DIFFERENTIAL Routine 10/24/2024 12:36 AM [employer] [facility] HEPATIC FUNCTION PANEL Routine 10/24/2024 12:36 AM [employer] [facility] BASIC METABOLIC PANEL Routine 10/24/2024 12:36 AM [employer] [facility] PHOSPHORUS Routine 10/24/2024 12:36 AM [employer] [facility] MAGNESIUM Routine 10/24/2024 12:36 AM [employer] [facility] BMT CBC Routine 10/24/2024 12:36 AM [employer] POCT GLUCOSE DEVICE Routine 10/24/2024 12:35 AM [employer] POCT GLUCOSE DEVICE Routine 10/23/2024 11:54 AM [employer] [facility] XR ABDOMEN AP 1 VIEW IP Routine 10/23/2024 8:35 AM [employer] POCT GLUCOSE DEVICE Routine 10/23/2024 5:15 AM [employer] IMMATURE PLATELET FRACTION Routine 10/23/2024 3:11 AM [employer] [facility] EGFR Routine 10/23/2024 3:11 AM [employer] [facility] MANUAL DIFFERENTIAL Routine 10/23/2024 3:11 AM [employer] [facility] CBC WITHOUT DIFFERENTIAL Routine 10/23/2024 3:11 AM [employer] [facility] HEPATIC FUNCTION PANEL Routine 10/23/2024 3:11 AM [employer] [facility] BASIC METABOLIC PANEL Routine 10/23/2024 3:11 AM [employer] [facility] PHOSPHORUS Routine 10/23/2024 3:11 AM [employer] [facility] MAGNESIUM Routine 10/23/2024 3:11 AM [employer] BMT CBC Routine 10/23/2024 3:11 AM [employer] POCT GLUCOSE DEVICE Routine 10/22/2024 11:12 PM [employer] POCT GLUCOSE DEVICE Routine 10/22/2024 6:07 PM [employer] POCT GLUCOSE DEVICE Routine 10/22/2024 12:13 PM [employer] POCT GLUCOSE DEVICE Routine 10/22/2024 3:32 AM [employer] IMMATURE PLATELET FRACTION Routine 10/22/2024 3:32 AM [employer] [facility] EGFR Routine 10/22/2024 3:32 AM [employer] BILIRUBIN, DIRECT Routine 10/22/2024 3:32 AM [employer] [facility] MANUAL DIFFERENTIAL Routine 10/22/2024 3:32 AM [employer] [facility] CBC WITHOUT DIFFERENTIAL Routine 10/22/2024 3:32 AM [employer] LACTATE DEHYDROGENASE Routine 10/22/2024 3:32 AM [employer] URIC ACID Routine 10/22/2024 3:32 AM [employer] COMPREHENSIVE METABOLIC PANEL Routine 10/22/2024 3:32 AM [employer] TYPE AND SCREEN Timed 10/22/2024 3:32 AM [employer] [facility] PHOSPHORUS Routine 10/22/2024 3:32 AM [employer] [facility] MAGNESIUM Routine 10/22/2024 3:32 AM [employer] BMT CBC Routine 10/22/2024 3:32 AM [employer] POCT GLUCOSE DEVICE Routine 10/21/2024 9:21 PM [employer] VANCOMYCIN LEVEL TROUGH STAT 10/21/2024 7:06 PM [employer] POCT GLUCOSE DEVICE Routine 10/21/2024 7:05 PM [employer] VANCOMYCIN LEVEL TROUGH STAT 10/21/2024 4:32 PM [employer] POCT GLUCOSE DEVICE Routine 10/21/2024 11:53 AM [employer] POCT GLUCOSE DEVICE Routine 10/21/2024 3:22 AM [employer] [facility] IMMATURE PLATELET FRACTION Routine 10/21/2024 3:15 AM [employer] [facility] EGFR Routine 10/21/2024 3:15 AM [employer] [facility] MANUAL DIFFERENTIAL Routine 10/21/2024 3:15 AM [employer] [facility] CBC WITHOUT DIFFERENTIAL Routine 10/21/2024 3:15 AM [employer] [facility] HEPATIC FUNCTION PANEL Routine 10/21/2024 3:15 AM [employer] [facility] BASIC METABOLIC PANEL Routine 10/21/2024 3:15 AM [employer] [facility] PHOSPHORUS Routine 10/21/2024 3:15 AM [employer] [facility] MAGNESIUM Routine 10/21/2024 3:15 AM [employer] BMT CBC Routine 10/21/2024 3:15 AM [employer] POCT GLUCOSE DEVICE Routine 10/20/2024 8:55 PM [employer] POCT GLUCOSE DEVICE Routine 10/20/2024 5:53 PM [employer] POCT GLUCOSE DEVICE Routine 10/20/2024 12:29 PM [employer] POCT GLUCOSE DEVICE Routine 10/20/2024 10:51 AM [employer] TRANSFUSE PLATELETS Timed 10/20/2024 6:25 AM [employer] Other pancytopenia (HCC) PREPARE PLATELETS Timed 10/20/2024 5:35 AM [employer] Other pancytopenia (HCC) POCT GLUCOSE DEVICE Routine 10/20/2024 3:39 AM [employer] IMMATURE PLATELET FRACTION Routine 10/20/2024 3:29 AM [employer] EGFR Routine 10/20/2024 3:29 AM [employer] MANUAL DIFFERENTIAL Routine 10/20/2024 3:29 AM [employer] [facility] CBC WITHOUT DIFFERENTIAL Routine 10/20/2024 3:29 AM [employer] HEPATIC FUNCTION PANEL Routine 10/20/2024 3:29 AM [employer] [facility] BASIC METABOLIC PANEL Routine 10/20/2024 3:29 AM [employer] PHOSPHORUS Routine 10/20/2024 3:29 AM [employer] MAGNESIUM Routine 10/20/2024 3:29 AM [employer] BMT CBC Routine 10/20/2024 3:29 AM [employer] POCT GLUCOSE DEVICE Routine 10/19/2024 8:42 PM [employer] VANCOMYCIN LEVEL TROUGH Timed 10/19/2024 5:02 PM [employer] POCT GLUCOSE DEVICE Routine 10/19/2024 4:50 PM [employer] POCT GLUCOSE DEVICE Routine 10/19/2024 10:44 AM [employer] IMMATURE PLATELET FRACTION STAT 10/19/2024 9:25 AM [employer] CBC WITHOUT DIFFERENTIAL STAT 10/19/2024 9:25 AM [employer] TRANSFUSE PLATELETS Timed 10/19/2024 6:58 AM [employer] Other pancytopenia (HCC) POCT GLUCOSE DEVICE Routine 10/19/2024 6:56 AM [employer] SEPSIS LACTATE WITH REFLEX STAT 10/19/2024 6:53 AM [employer] BLOOD CULTURE STAT 10/19/2024 6:53 AM [employer] BLOOD CULTURE STAT 10/19/2024 6:53 AM [employer] PREPARE PLATELETS Timed 10/19/2024 5:14 AM [employer] Other pancytopenia (HCC) IMMATURE PLATELET FRACTION Routine 10/19/2024 2:59 AM [employer] [facility] EGFR Routine 10/19/2024 2:59 AM [employer] [facility] MANUAL DIFFERENTIAL Routine 10/19/2024 2:59 AM [employer] [facility] CBC WITHOUT DIFFERENTIAL Routine 10/19/2024 2:59 AM [employer] [facility] PROTIME-INR Routine 10/19/2024 2:59 AM [employer] [facility] APTT Routine 10/19/2024 2:59 AM [employer] LACTATE DEHYDROGENASE Routine 10/19/2024 2:59 AM [employer] URIC ACID Routine 10/19/2024 2:59 AM [employer] COMPREHENSIVE METABOLIC PANEL Routine 10/19/2024 2:59 AM [employer] TYPE AND SCREEN Timed 10/19/2024 2:59 AM [employer] [facility] PHOSPHORUS Routine 10/19/2024 2:59 AM [employer] [facility] MAGNESIUM Routine 10/19/2024 2:59 AM [employer] [facility] BMT CBC Routine 10/19/2024 2:59 AM [employer] [facility] ECG 12-LEAD STAT 10/18/2024 9:56 PM [employer] POCT GLUCOSE DEVICE Routine 10/18/2024 9:01 PM [employer] POCT GLUCOSE DEVICE Routine 10/18/2024 9:53 AM [employer] POCT GLUCOSE DEVICE Routine 10/18/2024 6:16 AM [employer] [facility] POCT GLUCOSE DEVICE Routine 10/18/2024 6:14 AM [employer] VANCOMYCIN LEVEL TROUGH Timed 10/18/2024 6:05 AM [employer] TRANSFUSE RED BLOOD CELLS Timed 10/18/2024 4:16 AM [employer] Other pancytopenia (HCC) PREPARE RBC Timed 10/18/2024 3:31 AM [employer] Other pancytopenia (HCC) TRANSFUSE PLATELETS Timed 10/18/2024 2:54 AM [employer] Other pancytopenia (HCC) IMMATURE PLATELET FRACTION Routine 10/18/2024 2:38 AM [employer] [facility] EGFR Routine 10/18/2024 2:38 AM [employer] [facility] MANUAL DIFFERENTIAL Routine 10/18/2024 2:38 AM [employer] [facility] CBC WITHOUT DIFFERENTIAL Routine 10/18/2024 2:38 AM [employer] [facility] BASIC METABOLIC PANEL Routine 10/18/2024 2:38 AM [employer] [facility] PHOSPHORUS Routine 10/18/2024 2:38 AM [employer] [facility] MAGNESIUM Routine 10/18/2024 2:38 AM [employer] BMT CBC Routine 10/18/2024 2:38 AM [employer] PREPARE PLATELETS Timed 10/18/2024 2:31 AM [employer] Other pancytopenia (HCC) POCT GLUCOSE DEVICE Routine 10/17/2024 11:41 PM [employer] POCT GLUCOSE DEVICE Routine 10/17/2024 5:56 PM [employer] TRANSFUSE PLATELETS Timed 10/17/2024 2:19 PM [employer] Other pancytopenia (HCC) POCT GLUCOSE DEVICE Routine 10/17/2024 12:01 PM [employer] URINALYSIS, MICROSCOPIC ONLY STAT 10/17/2024 10:07 AM [employer] [facility] URINALYSIS AND REFLEX TO MICROSCOPIC AND CULTURE STAT 10/17/2024 10:07 AM [employer] PREPARE PLATELETS Timed 10/17/2024 6:05 AM [employer] Other pancytopenia (HCC) IMMATURE PLATELET FRACTION Routine 10/17/2024 5:12 AM [employer] [facility] EGFR Routine 10/17/2024 5:12 AM [employer] [facility] MANUAL DIFFERENTIAL Routine 10/17/2024 5:12 AM [employer] [facility] CBC WITHOUT DIFFERENTIAL Routine 10/17/2024 5:12 AM [employer] VANCOMYCIN LEVEL TROUGH Timed 10/17/2024 5:12 AM [employer] TRIGLYCERIDES Routine 10/17/2024 5:12 AM [employer] [facility] BASIC METABOLIC PANEL Routine 10/17/2024 5:12 AM [employer] PHOSPHORUS Routine 10/17/2024 5:12 AM [employer] [facility] MAGNESIUM Routine 10/17/2024 5:12 AM [employer] BMT CBC Routine 10/17/2024 5:12 AM [employer] [facility] POCT GLUCOSE DEVICE Routine 10/17/2024 12:10 AM [employer] [facility] XR CHEST 1 VIEW ED Urgent/IP Urgent 10/16/2024 8:52 PM [employer] [facility] BLOOD CULTURE STAT 10/16/2024 8:30 PM [employer] [facility] BLOOD CULTURE STAT 10/16/2024 8:30 PM [employer] [facility] MRSA ONLY (STAPHYLOCOCCUS AUREUS) CULTURE STAT 10/16/2024 8:26 PM [employer] [facility] RESPIRATORY PATHOGEN PANEL STAT 10/16/2024 8:26 PM [employer] [facility] POCT GLUCOSE DEVICE Routine 10/16/2024 5:16 PM [employer] [facility] SURGICAL PATHOLOGY Routine 10/16/2024 1:57 PM [employer] FLOW LEUKEMIA/LYMPHOMA Timed 10/16/2024 11:50 AM [employer] TRANSFUSE PLATELETS Timed 10/16/2024 10:53 AM [employer] Other pancytopenia (HCC) PREPARE PLATELETS Timed 10/16/2024 9:56 AM [employer] Other pancytopenia (HCC) IMMATURE PLATELET FRACTION Routine 10/16/2024 4:23 AM [employer] [facility] EGFR Routine 10/16/2024 4:23 AM [employer] [facility] MANUAL DIFFERENTIAL Routine 10/16/2024 4:23 AM [employer] [facility] CBC WITHOUT DIFFERENTIAL Routine 10/16/2024 4:23 AM [employer] [facility] BASIC METABOLIC PANEL Routine 10/16/2024 4:23 AM [employer] [facility] PHOSPHORUS Routine 10/16/2024 4:23 AM [employer] MAGNESIUM Routine 10/16/2024 4:23 AM [employer] [facility] BMT CBC Routine 10/16/2024 4:23 AM [employer] VANCOMYCIN LEVEL TROUGH Routine 10/15/2024 9:26 PM [employer] TRANSFUSE PLATELETS Timed 10/15/2024 3:55 PM [employer] Other pancytopenia (HCC) PREPARE PLATELETS Timed 10/15/2024 5:42 AM [employer] Other pancytopenia (HCC) IMMATURE PLATELET FRACTION Routine 10/15/2024 3:06 AM [employer] [facility] EGFR Routine 10/15/2024 3:06 AM [employer] [facility] MANUAL DIFFERENTIAL Routine 10/15/2024 3:06 AM [employer] [facility] CBC WITHOUT DIFFERENTIAL Routine 10/15/2024 3:06 AM [employer] LACTATE DEHYDROGENASE Routine 10/15/2024 3:06 AM [employer] [facility] URIC ACID Routine 10/15/2024 3:06 AM [employer] [facility] COMPREHENSIVE METABOLIC PANEL Routine 10/15/2024 3:06 AM [employer] TYPE AND SCREEN Timed 10/15/2024 3:06 AM [employer] [facility] PHOSPHORUS Routine 10/15/2024 3:06 AM [employer] [facility] MAGNESIUM Routine 10/15/2024 3:06 AM [employer] BMT CBC Routine 10/15/2024 3:06 AM [employer] [facility] BLOOD CULTURE STAT 10/14/2024 12:54 PM [employer] [facility] BLOOD CULTURE STAT 10/14/2024 12:54 PM [employer] TRANSFUSE PLATELETS Timed 10/14/2024 12:46 PM [employer] Other pancytopenia (HCC) PREPARE PLATELETS Timed 10/14/2024 5:58 AM [employer] Other pancytopenia (HCC) IMMATURE PLATELET FRACTION Routine 10/14/2024 3:40 AM [employer] [facility] EGFR Routine 10/14/2024 3:40 AM [employer] MANUAL DIFFERENTIAL Routine 10/14/2024 3:40 AM [employer] [facility] CBC WITHOUT DIFFERENTIAL Routine 10/14/2024 3:40 AM [employer] [facility] BASIC METABOLIC PANEL Routine 10/14/2024 3:40 AM [employer] PHOSPHORUS Routine 10/14/2024 3:40 AM [employer] [facility] MAGNESIUM Routine 10/14/2024 3:40 AM [employer] [facility] BMT CBC Routine 10/14/2024 3:40 AM [employer] TRANSFUSE RED BLOOD CELLS Timed 10/13/2024 12:18 PM [employer] Other pancytopenia (HCC) TRANSFUSE PLATELETS Timed 10/13/2024 6:45 AM [employer] Other pancytopenia (HCC) PREPARE PLATELETS Timed 10/13/2024 4:42 AM [employer] Other pancytopenia (HCC) PREPARE RBC Timed 10/13/2024 4:42 AM [employer] Other pancytopenia (HCC) IMMATURE PLATELET FRACTION Routine 10/13/2024 3:11 AM [employer] [facility] EGFR Routine 10/13/2024 3:11 AM [employer] MANUAL DIFFERENTIAL Routine 10/13/2024 3:11 AM [employer] [facility] CBC WITHOUT DIFFERENTIAL Routine 10/13/2024 3:11 AM [employer] [facility] BASIC METABOLIC PANEL Routine 10/13/2024 3:11 AM [employer] PHOSPHORUS Routine 10/13/2024 3:11 AM [employer] [facility] MAGNESIUM Routine 10/13/2024 3:11 AM [employer] [facility] BMT CBC Routine 10/13/2024 3:11 AM [employer] TRANSFUSE PLATELETS Routine 10/12/2024 6:45 AM [employer] Other pancytopenia (HCC) PREPARE PLATELETS Timed 10/12/2024 5:32 AM [employer] Other pancytopenia (HCC) IMMATURE PLATELET FRACTION Routine 10/12/2024 3:51 AM [employer] [facility] EGFR Routine 10/12/2024 3:51 AM [employer] MANUAL DIFFERENTIAL Routine 10/12/2024 3:51 AM [employer] [facility] CBC WITHOUT DIFFERENTIAL Routine 10/12/2024 3:51 AM [employer] [facility] PROTIME-INR Routine 10/12/2024 3:51 AM [employer] [facility] APTT Routine 10/12/2024 3:51 AM [employer] LACTATE DEHYDROGENASE Routine 10/12/2024 3:51 AM [employer] [facility] URIC ACID Routine 10/12/2024 3:51 AM [employer] COMPREHENSIVE METABOLIC PANEL Routine 10/12/2024 3:51 AM [employer] TYPE AND SCREEN Timed 10/12/2024 3:51 AM [employer] [facility] PHOSPHORUS Routine 10/12/2024 3:51 AM [employer] [facility] MAGNESIUM Routine 10/12/2024 3:51 AM [employer] BMT CBC Routine 10/12/2024 3:51 AM [employer] [facility] EGFR Routine 10/11/2024 6:26 PM [employer] BASIC METABOLIC PANEL Routine 10/11/2024 6:26 PM [employer] TRANSFUSE PLATELETS Timed 10/11/2024 4:45 AM [employer] Other pancytopenia (HCC) PREPARE PLATELETS Timed 10/11/2024 3:28 AM [employer] Other pancytopenia (HCC) IMMATURE PLATELET FRACTION Routine 10/11/2024 12:33 AM [employer] [facility] EGFR Routine 10/11/2024 12:33 AM [employer] [facility] MANUAL DIFFERENTIAL Routine 10/11/2024 12:33 AM [employer] [facility] CBC WITHOUT DIFFERENTIAL Routine 10/11/2024 12:33 AM [employer] [facility] BASIC METABOLIC PANEL Routine 10/11/2024 12:33 AM [employer] [facility] PHOSPHORUS Routine 10/11/2024 12:33 AM [employer] [facility] MAGNESIUM Routine 10/11/2024 12:33 AM [employer] [facility] BMT CBC Routine 10/11/2024 12:33 AM [employer] [facility] EGFR Timed 10/10/2024 5:13 PM [employer] [facility] PHOSPHORUS Timed 10/10/2024 5:13 PM [employer] [facility] BASIC METABOLIC PANEL Timed 10/10/2024 5:13 PM [employer] [facility] CORTISOL 60 MIN Timed 10/10/2024 2:22 PM [employer] COSYNTROPIN STIMULATION TEST Timed 10/10/2024 2:22 PM [employer] CORTISOL 30 MIN Timed 10/10/2024 1:53 PM [employer] [facility] CORTISOL BASELINE Timed 10/10/2024 1:22 PM [employer] [facility] EGFR STAT 10/10/2024 8:54 AM [employer] [facility] CORTISOL Timed 10/10/2024 8:54 AM [employer] [facility] BASIC METABOLIC PANEL STAT 10/10/2024 8:54 AM [employer] [facility] TRANSFUSE RED BLOOD CELLS Timed 10/10/2024 6:15 AM [employer] [facility] Other pancytopenia (HCC) TRANSFUSE PLATELETS Timed 10/10/2024 4:33 AM [employer] [facility] Other pancytopenia (HCC) PREPARE PLATELETS Timed 10/10/2024 3:57 AM [employer] [facility] Other pancytopenia (HCC) PREPARE RBC Timed 10/10/2024 3:57 AM [employer] Other pancytopenia (HCC) IMMATURE PLATELET FRACTION Routine 10/10/2024 12:31 AM [employer] [facility] EGFR Routine 10/10/2024 12:31 AM [employer] [facility] MANUAL DIFFERENTIAL Routine 10/10/2024 12:31 AM [employer] [facility] CBC WITHOUT DIFFERENTIAL Routine 10/10/2024 12:31 AM [employer] [facility] BASIC METABOLIC PANEL Routine 10/10/2024 12:31 AM [employer] [facility] PHOSPHORUS Routine 10/10/2024 12:31 AM [employer] [facility] MAGNESIUM Routine 10/10/2024 12:31 AM [employer] [facility] BMT CBC Routine 10/10/2024 12:31 AM [employer] [facility] ECG 12-LEAD Routine 10/09/2024 5:14 PM [employer] [facility] SODIUM, URINE, RANDOM Routine 10/09/2024 4:44 PM [employer] [facility] OSMOLALITY, URINE Routine 10/09/2024 4:44 PM [employer] TRANSFUSE PLATELETS Timed 10/09/2024 4:45 AM [employer] [facility] Other pancytopenia (HCC) PREPARE PLATELETS Timed 10/09/2024 3:43 AM [employer] [facility] Other pancytopenia (HCC) THYROID FUNCTION CASCADE Routine 10/09/2024 12:38 AM [employer] [facility] OSMOLALITY, BLOOD Routine 10/09/2024 12:38 AM [employer] [facility] IMMATURE PLATELET FRACTION Routine 10/09/2024 12:38 AM [employer] [facility] EGFR Routine 10/09/2024 12:38 AM [employer] [facility] MANUAL DIFFERENTIAL Routine 10/09/2024 12:38 AM [employer] [facility] CBC WITHOUT DIFFERENTIAL Routine 10/09/2024 12:38 AM [employer] [facility] BASIC METABOLIC PANEL Routine 10/09/2024 12:38 AM [employer] [facility] PHOSPHORUS Routine 10/09/2024 12:38 AM [employer] [facility] MAGNESIUM Routine 10/09/2024 12:38 AM [employer] [facility] BMT CBC Routine 10/09/2024 12:38 AM [employer] [facility] HLA CLASS I DNA (ABC) RECIPIENT STAT 10/08/2024 2:20 PM [employer] [facility] HLA ANTIBODY SCREEN BY SINGLE ANTIGEN STAT 10/08/2024 2:20 PM [employer] [facility] HLA ANTIBODY SCREEN - SAB (CLASS I AND CLASS II) STAT 10/08/2024 2:20 PM [employer] [facility] Other pancytopenia (HCC) TRANSFUSE PLATELETS Timed 10/08/2024 4:46 AM [employer] [facility] Other pancytopenia (HCC) PREPARE PLATELETS Timed 10/08/2024 4:08 AM [employer] [facility] Other pancytopenia (HCC) IMMATURE PLATELET FRACTION Routine 10/08/2024 12:44 AM [employer] [facility] EGFR Routine 10/08/2024 12:44 AM [employer] [facility] MANUAL DIFFERENTIAL Routine 10/08/2024 12:44 AM [employer] [facility] CBC WITHOUT DIFFERENTIAL Routine 10/08/2024 12:44 AM [employer] [facility] LACTATE DEHYDROGENASE Routine 10/08/2024 12:44 AM [employer] [facility] URIC ACID Routine 10/08/2024 12:44 AM [employer] [facility] COMPREHENSIVE METABOLIC PANEL Routine 10/08/2024 12:44 AM [employer] [facility] TYPE AND SCREEN Timed 10/08/2024 12:44 AM [employer] [facility] PHOSPHORUS Routine 10/08/2024 12:44 AM [employer] [facility] MAGNESIUM Routine 10/08/2024 12:44 AM [employer] [facility] BMT CBC Routine 10/08/2024 12:44 AM [employer] TRANSFUSE PLATELETS Timed 10/07/2024 4:40 AM [employer] [facility] Other pancytopenia (HCC) PREPARE PLATELETS Timed 10/07/2024 3:52 AM [employer] [facility] Other pancytopenia (HCC) IMMATURE PLATELET FRACTION Routine 10/07/2024 1:20 AM [employer] [facility] EGFR Routine 10/07/2024 1:20 AM [employer] [facility] MANUAL DIFFERENTIAL Routine 10/07/2024 1:20 AM [employer] [facility] CBC WITHOUT DIFFERENTIAL Routine 10/07/2024 1:20 AM [employer] [facility] BASIC METABOLIC PANEL Routine 10/07/2024 1:20 AM [employer] [facility] PHOSPHORUS Routine 10/07/2024 1:20 AM [employer] [facility] MAGNESIUM Routine 10/07/2024 1:20 AM [employer] [facility] BMT CBC Routine 10/07/2024 1:20 AM [employer] [facility] XR ABDOMEN AP 1 VIEW ED Urgent/IP Urgent 025 3:44 PM [employer] [facility] TRANSFUSE PLATELETS Timed 10/06/2024 3:40 PM [employer] [facility] Other pancytopenia (HCC) [place]IRUS PCR Routine 10/06/2024 3:22 PM [employer] [facility] C. DIFFICILE TESTING Routine 10/06/2024 3:22 PM [employer] [facility] INFECTION PREVENTION VRE CULTURE Routine 10/06/2024 3:21 PM [employer] TRANSFUSE RED BLOOD CELLS Timed 10/06/2024 5:39 AM [employer] [facility] Other pancytopenia (HCC) PREPARE PLATELETS Timed 10/06/2024 4:35 AM [employer] [facility] Other pancytopenia (HCC) PREPARE RBC Timed 10/06/2024 4:35 AM [employer] Other pancytopenia (HCC) IMMATURE PLATELET FRACTION Routine 10/06/2024 1:56 AM [employer] [facility] EGFR Routine 10/06/2024 1:56 AM [employer] MANUAL DIFFERENTIAL Routine 10/06/2024 1:56 AM [employer] CBC WITHOUT DIFFERENTIAL Routine 10/06/2024 1:56 AM [employer] BASIC METABOLIC PANEL Routine 10/06/2024 1:56 AM [employer] PHOSPHORUS Routine 10/06/2024 1:56 AM [employer] MAGNESIUM Routine 10/06/2024 1:56 AM [employer] BMT CBC Routine 10/06/2024 1:56 AM [employer] EGFR Timed 10/05/2024 11:03 AM [employer] BASIC METABOLIC PANEL Timed 10/05/2024 11:03 AM [employer] PHOSPHORUS Timed 10/05/2024 11:03 AM [employer] URIC ACID Timed 10/05/2024 11:03 AM [employer] LACTATE DEHYDROGENASE Timed 10/05/2024 11:03 AM [employer] TRANSFUSE PLATELETS Timed 10/05/2024 11:00 AM [employer] Other pancytopenia (HCC) TRANSFUSE RED BLOOD CELLS Timed 10/05/2024 6:01 AM [employer] Other pancytopenia (HCC) PREPARE PLATELETS Timed 10/05/2024 5:30 AM [employer] Other pancytopenia (HCC) PREPARE RBC Timed 10/05/2024 5:30 AM [employer] Other pancytopenia (HCC) IMMATURE PLATELET FRACTION Routine 10/05/2024 3:42 AM [employer] EGFR Routine 10/05/2024 3:42 AM [employer] MANUAL DIFFERENTIAL Routine 10/05/2024 3:42 AM [employer] CBC WITHOUT DIFFERENTIAL Routine 10/05/2024 3:42 AM [employer] PROTIME-INR Routine 10/05/2024 3:42 AM [employer] APTT Routine 10/05/2024 3:42 AM [employer] LACTATE DEHYDROGENASE Routine 10/05/2024 3:42 AM [employer] URIC ACID Routine 10/05/2024 3:42 AM [employer] COMPREHENSIVE METABOLIC PANEL Routine 10/05/2024 3:42 AM [employer] TYPE AND SCREEN Timed 10/05/2024 3:42 AM [employer] PHOSPHORUS Routine 10/05/2024 3:42 AM [employer] MAGNESIUM Routine 10/05/2024 3:42 AM [employer] BMT CBC Routine 10/05/2024 3:42 AM [employer] PHOSPHORUS Timed 10/05/2024 3:42 AM [employer] URIC ACID Timed 10/05/2024 3:42 AM [employer] LACTATE DEHYDROGENASE Timed 10/05/2024 3:42 AM [employer] HEPATITIS PANEL, ACUTE Routine 09/29/2024 2:05 PM [employer] SCREENING MAMMOGRAM BILATERAL W ELICEO Schedule Routine, [...] MD LAB BLOOD OR DERABLES Final Result [facility] Department of Laboratories [place] [id number] * (ABNORMAL) Differential, auto (01/01/2025 9:52 AM CDT) Neutrophil abs 1.86 1.50 - 6.50 K/cumm Comment:Testing performed by : [facility], [address] [place] [address] Lymphocyte abs 0.69(L) 0.80 - 3.30 K/cumm CERNER RICKY Comment:Testing performed by : [facility], [address] [place] [address] Monocyte abs 0.40 0.20 - 0.80 K/cumm CERFOSTER BJ Comment:Testing performed by : [facility], [address] [place] [address] Eosinophil abs 0.21 0.00 - 0.50 K/cumm CERFOSTER BJ Comment:Testing performed by : [facility], [address] [place] [id number] Basophil abs 0.05 0.00 - 0.10 K/cumm CERNER BJ Comment:Testing performed by : [facility], [address] [place] [phone] Neutrophil pct 57.9 % CERNER BJ Comment: Interpretive Data Percent cell count reference ranges are not reported, since discordance with absolute values may lead to misinterpretation of CBC data. Current Interpretive Data was last revised on 2017. Testing performed by: [facility], [address] [place] [phone] Lymphocyte pct 21.5 % CERNER BJ Comment: Interpretive Data Percent cell count reference ranges are not reported, since discordance with absolute values may lead to misinterpretation of CBC data. Current Interpretive Data was last revised on 2017. Testing performed by: [facility], [address] [place] [address] Monocyte pct 12.6 % CERNER BJ Comment: Interpretive Data Percent cell count reference ranges are not reported, since discordance with absolute values may lead to misinterpretation of CBC data. Current Interpretive Data was last revised on 2017. Testing performed by: [facility], [address] [place] [phone] Eosinophil pct 6.4 % DAVID GARCÍA Comment: Interpretive Data Percent cell count reference ranges are not reported, since discordance with absolute values may lead to misinterpretation of CBC data. Current Interpretive Data was last revised on 2017. Testing performed by: [facility], [address] [place] [phone] Basophil pct 1.6 % DAVID GARCÍA Comment: Interpretive Data Percent cell count reference ranges are not reported, since discordance with absolute values may lead to misinterpretation of CBC data. Current Interpretive Data was last revised on 2017. Testing performed by: [facility], [address] [place] [phone] Blood 01/01/2025 9:52 AM CDT 01/01/2025 10:03 AM CDT Vicente Mandujano MD LAB BLOOD OR DERABLES Final Result DAVID GARCÍA [facility] [place] [address] * (ABNORMAL) CBC with auto differential (01/01/2025 9:52 AM CDT) WBC 3.21(L) 3.80 - 9.90 K/cumm Comment:Testing performed by : [facility], [address] [place] [phone] Hgb 10.4(L) 11.9 - 15.5 g/dL DAVID GARCÍA Comment:Testing performed by : [facility], [address] [place] [phone] Hct 30.4(L) 35.6 - 45.5 % DAVID GARCÍA Comment:Testing performed by : [facility], [address] [place], [place] [phone] Plt 166 150 - 400 K/cumm CERFOSTER BJ Comment:Testing performed by : [facility], [address] [place], [place] [phone] MPV 7.1 6.8 - 10.4 fL [facility] BJ Comment:Testing performed by : [facility], [address] [place], [place] [phone] RBC 3.26(L) 3.90 - 5.20 M/cumm [facility] BJ Comment:Testing performed by : [facility], [address] [place], [place] [phone] MCV 93.3 81.3 - 96.4 fL [facility] BJ Comment:Testing performed by : [facility], [address] [place], [place] [phone] MCH 31.9 27.1 - 33.3 pg [facility] BJ Comment:Testing performed by : [facility], [address] [place], [place] [phone] MCHC 34.2 32.3 - 35.7 g/dL [facility] BJ Comment:Testing performed by : [facility], [address] [place], [place] [phone] RDW CV 22.9(H) 11.1 - 14.9 % [facility]ER[facility]STER BJ Comment:Testing performed by : [facility], [address] [place] [address] NRBC abs 0.00 0.00 - 0.01 K/cumm [facility] BJ Comment:Testing performed by : [facility], [address] [place] [address] Blood 01/01/2025 9:52 AM CDT 01/01/2025 10:03 AM CDT Vicente Mandujano MD LAB BLOOD OR DERABLES Final Result DAVID GARCÍA [facility] [place] [address] * aPTT (01/01/2025 9:52 AM CDT) aPTT [...] OR DERABLES Final Result Performing Organization Address [facility] [place] [address] * Protime-INR (01/01/2025 9:52 AM CDT) [facility] PT 12.6 9.7 - 13.0 sec INR 1.16 0.90 - 1.20 [facility] Comment: Interpretive data Oral anticoagulant therapeutic ranges: Venous thromboembolism prophylaxis or treatment: 2.0-3.0 CARDIOLOGY Standard range: 2.0-3.0 High-intensity range: 2.5-3.5 Refer to indication-specific guidelines for appropriate target ranges for prosthetic heart valve replacement. Current interpretive data was last revised on 2019. Blood 01/01/2025 9:52 AM CDT 01/01/2025 10:34 AM CDT Vicente Mandujano MD LAB BLOOD OR DERABLES Final Result Performing Organization Address [facility] [place] [address] * Fibrinogen (01/01/2025 9:52 AM CDT) Pathologist [facility] Fibrinogen 347 170 - 400 mg/dL Blood 01/01/2025 9:52 AM CDT 01/01/2025 10:34 AM CDT Vicente Mandujano MD LAB BLOOD OR DERABLES Final Result Performing Organization Address [facility]/ZIP Co de Phone Number [facility] [place] [address] * Type and screen (01/01/2025 9:52 AM CDT) Bing, indirect Negative ABO Rh A Positive [facility] Blood 01/01/2025 9:52 AM CDT 01/01/2025 10:13 AM CDT Narrative [facility] - 01/01/2025 11:03 AM CDT Has the patient had Daratumumab or Isatuximab in the past 6 months?->No Vicente Mandujano MD LAB BLOOD BA NK TEST ORDERABLES Final Result Performing Organization Address [facility] Co de Phone Number [facility] [place] [address] * Uric acid (01/01/2025 9:52 AM CDT) Uric acid 3.1 2.5 - 7.0 mg/dL Blood 01/01/2025 9:52 AM CDT 01/01/2025 10:07 AM CDT Vicente Mandujano MD LAB BLOOD OR DERABLES Final Result Performing Organization Address [facility]/ZIP Co de Phone Number [facility] [place] [address] * Phosphorus (01/01/2025 9:52 AM CDT) Phosphorus, pl 3.9 2.3 - 4.5 mg/dL Blood 01/01/2025 9:52 AM CDT 01/01/2025 10:07 AM CDT Vicente Mandujano MD LAB BLOOD OR DERABLES Final Result Performing Organization Address [facility] Co de Phone Number [facility] [place] [address] * Magnesium (01/01/2025 9:52 AM CDT) [facility] Magnesium 2.0 1.4 - 2.5 mg/dL Blood 01/01/2025 9:52 AM CDT 01/01/2025 10:07 AM CDT Vicente Mandujano MD LAB BLOOD OR DERABLES Final Result Performing Organization Address [facility] Co de Phone Number [facility] Department [place] [address] * (ABNORMAL) Lactate dehydrogenase (LD) (01/01/2025 9:52 AM CDT) Pathologist [facility] Lactate dehydrogenase (LDH) 296(H) 100 - 250 Units/L Blood 01/01/2025 9:52 AM CDT 01/01/2025 10:07 AM CDT Vicente Mandujano MD LAB BLOOD OR DERABLES Final Result Performing Organization Address [facility] Co de Phone Number [facility] [place] [address] * Comprehensive metabolic panel (01/01/2025 9:52 AM CDT) Pathologist [facility] Sodium 140 135 - 145 mmol/L Potassium, pl 4.2 3.3 - 4.9 mmol/L [facility] Chloride 106 97 - 110 mmol/L [facility] CO2 25 22 - 32 mmol/L [facility] Anion gap 9 2 - 15 mmol/L [facility] BUN 14 6 - 25 mg/dL [facility] Creatinine 0.85 0.60 - 1.10 mg/dL [facility] Glucose 94 70 - 199 mg/dL [facility] Comment: Interpretive Data Fasting glucose >/= 126 [...] 2022. Calcium 8.7 8.5 - 10.3 mg/dL [facility] Bilirubin, total 0.2 0.1 - 1.2 mg/dL [facility] Protein, pl 6.6 6.5 - 8.5 g/dL [facility] Albumin 3.8 3.5 - 5.0 g/dL [facility] Alk phos 120 40 - 130 Units/L [facility] ALT 19 7 - 45 Units/L [facility] AST 31 10 - 45 Units/L [facility] Blood 01/01/2025 9:52 AM CDT 01/01/2025 10:07 AM CDT Vicente Mandujano MD LAB BLOOD OR DERABLES Final Result [facility] [place] [address] * eGFR (12/25/2024 3:48 PM CDT) eGFR [...] NP LAB BLOOD ORDERABLES Final Resu lt [facility] [place] [address] * Differential, auto (12/25/2024 3:48 PM CDT) Neutrophil abs 1.57 1.50 - 6.50 K/cumm Comment:Testing performed by : [facility], [address] [place], [place] [phone] Lymphocyte abs 0.86 0.80 - 3.30 K/cumm [facility] Comment:Testing performed by : [facility], [address] [place] [address] Monocyte abs 0.66 0.20 - 0.80 K/cumm [facility]J Comment:Testing performed by : [facility], [address] [place] [address] Eosinophil abs 0.11 0.00 - 0.50 K/cumm [facility] Comment:Testing performed by : [facility], [address] [place] [address] Basophil abs 0.03 0.00 - 0.10 K/cumm [facility] Comment:Testing performed by : [facility], [address] [place] [phone] Neutrophil pct 48.7 % CERNER BJ Comment: Interpretive Data Percent cell count reference ranges are not reported, since discordance with absolute values may lead to misinterpretation of CBC data. Current Interpretive Data was last revised on 2017. Testing performed by: [facility], [address] [place] [phone] Lymphocyte pct 26.8 % CERNER RICKY Comment: Interpretive Data Percent cell count reference ranges are not reported, since discordance with absolute values may lead to misinterpretation of CBC data. Current Interpretive Data was last revised on 2017. Testing performed by: [facility], [address] [place] [phone] Monocyte pct 20.3 % CERNER BJ Comment: Interpretive Data Percent cell count reference ranges are not reported, since discordance with absolute values may lead to misinterpretation of CBC data. Current Interpretive Data was last revised on 2017. Testing performed by: [facility], [address] [place] [phone] Eosinophil pct 3.3 % CERNER BJ Comment: Interpretive Data Percent cell count reference ranges are not reported, since discordance with absolute values may lead to misinterpretation of CBC data. Current Interpretive Data was last revised on 2017. Testing performed by: [facility], [address] [place] [phone] Basophil pct 0.9 % CERNER BJ Comment: Interpretive Data Percent cell count reference ranges are not reported, since discordance with absolute values may lead to misinterpretation of CBC data. Current Interpretive Data was last revised on 2017. Testing performed by: [facility], [address] [place] [phone] Blood 12/25/2024 3:48 PM CDT 12/25/2024 3:48 PM CDT us Marta Cassidy LACE WINDER LAB BLOOD ORDERABLES Final Resu lt DAVID GARCÍA [facility] [place] [address] * (ABNORMAL) CBC with auto differential (12/25/2024 3:48 PM CDT) WBC 3.23(L) 3.80 - 9.90 K/cumm Comment:Testing performed by : [facility], [address] [place] [address] Hgb 10.4(L) 11.9 - 15.5 g/dL CERNER BJ Comment:Testing performed by : [facility], [address] [place] [address] Hct 30.3(L) 35.6 - 45.5 % CERNER BJ Comment:Testing performed by : [facility], [address] [place] [address] Plt 185 150 - 400 K/cumm CERNER BJ Comment:Testing performed by : [facility], [address] [place] [address] MPV 7.3 6.8 - 10.4 fL CERNER BJ Comment:Testing performed by : [facility], [address] [place] [address] RBC 3.33(L) 3.90 - 5.20 M/cumm [facility] Comment:Testing performed by : [facility], [address] [place] [address] MCV 90.7 81.3 - 96.4 fL [facility] Comment:Testing performed by : [facility], [address] [place] [address] MCH 31.1 27.1 - 33.3 pg [facility] Comment:Testing performed by : [facility], [address] [place] [address] MCHC 34.3 32.3 - 35.7 g/dL [facility] Comment:Testing performed by : [facility], [address] [place] [address] RDW CV 18.8(H) 11.1 - 14.9 % [facility] Comment:Testing performed by : [facility], [address] [place] [address] NRBC abs 0.00 0.00 - 0.01 K/cumm [facility] Comment:Testing performed by : [facility], [address] [place] [phone] Blood 12/25/2024 3:48 PM CDT 12/25/2024 3:48 PM CDT us Marta Cassidy L[facility] LAB BLOOD ORDERABLES Final Resu lt [facility] [place] [address] * Comprehensive metabolic panel (12/25/2024 3:48 PM CDT) Sodium 141 135 - 145 mmol/L Potassium, pl 4.0 3.3 - 4.9 mmol/L [facility] Chloride 105 97 - 110 mmol/L [facility] CO2 26 22 - 32 mmol/L [facility] Anion gap 10 2 - 15 mmol/L [facility] BUN 8 6 - 25 mg/dL [facility] Creatinine 0.95 0.60 - 1.10 mg/dL [facility] Glucose 96 70 - 199 mg/dL [facility] Comment: Interpretive Data Fasting glucose >/= 126 [...] 2022. Calcium 8.6 8.5 - 10.3 mg/dL [facility] Bilirubin, total 0.2 0.1 - 1.2 mg/dL [facility] Protein, pl 6.9 6.5 - 8.5 g/dL [facility] Albumin 4.2 3.5 - 5.0 g/dL [facility] Comment:Reviewed Alk phos 130 40 - 130 Units/L [facility] ALT 19 7 - 45 Units/L [facility] AST 35 10 - 45 Units/L [facility] Blood 12/25/2024 3:48 PM CDT 12/25/2024 4:26 PM CDT us Marta Cassidy NP LAB BLOOD ORDERABLES Final Resu lt [facility] [place] [address] * HLA Hematopoietic Stem Cell Typing Report (12/16/2024 2:56 PM CDT) us Vicente Mandujano MD LAB BLOOD OR DERABLES Final Result * Measurable Residual Disease (MRD) MyeloSeq Heme NGS Panel with Interpretation (12/08/2024 2:26 PM CDT) Bone Marrow Biopsy 12/08/2024 2:26 PM CDT 12/09/2024 8:37 AM CDT Narrative 12/20/2024 12:37 PM CDT [facility] Pathology Services [facility] [address] [place], [place] [address] Final Report Patient Name: RENU DURON Address: [address] [place] [address] Gender: F : 1965 (Age: 59) Accessioned: 12/09/2024 Taken: 12/08/2024 Received: 12/09/2024 Physician(s): Vicente Mandujano MD Service: [facility] Location: [facility] #: [id number] Patient Type: [facility] MyeloSeq-MRD Molecular DiagnosticsReported:12/20/2024 Varients Detected: GENE EXON VARIANT PROTEIN CHANGE VAF CLINICAL SIGNIFICANCE* PREVIOUSLY DETECTED DNMT3A 23 MISSENSE R882C 3% PATHOGENIC YES TET2 3 STOP GAINED C237* 0.07% PATHOGENIC YES*Please see below for variant classification category details The following prior mutations were not detected: NPM1:N672Rhl*12, KRAS:G12D, FLT3:P160_S203ocqSFVIQKEA No mutations were detected in the following [...] in patients with acute myeloid leukemia (PMID: [id number]). 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 Corresponding bone marrow biopsy ([id number]) shows markedly hypocellular marrow with left-shifted myeloid maturation and erythroid predominance without increased blasts. Corresponding cytogenetic studies () show no evidence of clonal aberrations. Specimen site: Bone marrow Variant Detail: Gene Location (GRCh38) Reference allele Variant allele Transcript:Coding change Population Frequency* DNMT3A chr2:[id number] G A [id number]:c.2644C>T 0.047% TET2 chr4:[id number] T A [id number]:c.711T>A none*The population allele frequency represents the maximum [...] the CLIA Licensed Environment laboratory at the [facility] ([facility], CLIA #[id number], CAP #[id number]), Dr. Walt Calle MD, PhD, FCAP, [employer] Plant Supervisor. [address] [facility], [address] [place] [address] . The [facility] laboratory is regulated under CLIA as certified to perform high-complexity testing. Interpretation of sequencing results and case sign out is performed by Pathology and Immunology faculty in the Division of Genomic and Molecular Pathology (-[facility], CLIA #[id number], CAP #[id number]) Dr. Josselyn Thomas Ph.D., [employer] Supervisor. [facility], [facility] [facility], [address], [place] [address] [phone] . The [facility] is regulated [...] 30GBases of sequencing data generated on an [employer] X Plus. This test has been validated according to CAP guidelines for the detection of single nucleotide variants (SNVs) and indels (max validated size 117bp). This assay has two limits of detection: for new variants (not previously reported by [employer]) sensitivity is limited to 2% VAF; for [...] Such information and correlations are subject to change house attendant time in response to future scientific and [...] [facility] is provided on an IS basis. [facility] makes no representation or warranty of any kind, expressed or implied, regarding the Report. In no event shall [facility] be liable for any actual damages, indirect [...] PM CDT Narrative 12/19/2024 10:22 AM CDT [facility] results best viewed via link to PDF [facility] Department of Pathol [address] [place] [address] Patient Information Name: RENU DURON Gender: Brandon : 1965 (Age: 59) Tissue: Bone Marrow w/ FISH Visit Information Hospital #: [id number] Facility: [facility] Service: [facility] Location: [facility] OUTREACH Patient Type: [facility] Specimen Information: Culture #: [id number] Date Collected: 12/08/2024 Date Accessioned: 12/09/2024 Date Ordered: 12/08/2024 Physician(s): Vicente Mandujano MD Processin hours unstimulated 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 Specimen Quality: Low cell count Adequate: FISH: AML panel Adequate: Chromosome analysis CLINICAL REPORT CHROMOSOME ANALYSIS Metaphases Counted: 20Banding Technique: GTWColonies Counted: Metaphases Analyzed: 20Additional Method: FISHNumber of Cultures: 1Metaphases Karyotyped: 3Banding Resolution: 400Subculture: Karyotype: 46,XX[20].nuc radhames (MECOM)x2[200],(EGR1)x2[200],(K4M933)x2[200],(D8Z2)x2[200],(UMXY9H2,RUNX1)x2[200 ], (ASS1,ABL1,BCR)x2[200],(KMT2A)x2[200],(PML,BJ)x2[200],(CBFB)x2[200] Diagnosis: CHROMOSOME ANALYSIS: NO EVIDENCE OF CLONAL ABERRATIONS FISH FINDINGS: NO EVIDENCE OF DELETION/MONOSOMY OF EGR1 (5q) OR X5V949 (7q); NO EVIDENCE OF MECOM, BCR::ABL1, PML::BJ, CBFB,KMT2A OR QUQJ2J3::RUNX1 REARRANGEMENT; NO EVIDENCE OF TRISOMY 8 INTERPRETATION: [...] Hybridization (FISH) analysis are performed using the [employer] Imaging System. Report Electronically Reviewed and Signed Out By Lotus Nieves PhDDate Reported: 5Assistant Professor, Division of Genomic & Molecular Pathology FLUORESCENCE IN-SITU HYBRIDIZATION [FISH] Karyotype: nuc radhames (MECOM)x2[200],(EGR1)x2[200],(U9P209)x2[200],(D8Z2)x2[200],(SDKA9S5,RUNX1)x2[200 ], (ASS1,ABL1,BCR)x2[200],(KMT2A)x2[200],(PML,BJ)x2[200],(CBFB)x2[200] Diagnosis: FISH FINDINGS: NO EVIDENCE OF DELETION/MONOSOMY OF EGR1 (5q) OR T9Z566 (7q); NO EVIDENCE OF REARRANGEMENTS OF MECOM, BCR::ABL1, PML::BJ, CBFB, KMT2A OR FIVE0G6::RUNX1 NO EVIDENCE OF TRISOMY 8 INTERPRETATION: FISH analysis was performed with a panel of [employer] and [employer] probes for AML and is interpreted as NORMAL. 1) FISH evaluation for an MECOM (EVI1) rearrangement was performed on nuclei with the MECOM Dual Color, Break Apart Rearrangement Probe ([employer]) at 3q26 and is interpreted as NORMAL. No rearrangement was observed in 200/200 nuclei, which is within the normal range established for this probe in the [facility] at [facility]. Up to 1% of cells in normal samples can show an apparent MECOM rearrangement using this probe. A normal MECOM FISH finding can result from the absence of a MECOM rearrangement, from a variant MECOM rearrangement or from an insufficient number of neoplastic cells in the specimen. 2) FISH evaluation for a 5q deletion was performed on nuclei with the EGR1,E1T809/J8B7016 Dual Color Probe ([employer] for EGR1 at 5q31.1 and the control G7A670/X3Z5419 at 5p15.31 and is interpreted as NORMAL. Two EGR1 hybridization signals and two B0X902/H6J6696 control hybridization signals were observed in 199/200 nuclei, which is within the normal range established for this probe in the [facility] at [facility]. Up to 3.1% of cells in normal [...] was performed on nuclei with the LSI A6I382/D7Z1 Dual Color Probe ([employer] for N0W946 at 7q31 and the control D7Z1 at 7p11.1-q11.1 and is interpreted as NORMAL. Two D2O500 hybridization signals and two D7Z1 control hybridization signals were observed in 199/200 nuclei, which is within the normal range established for this probe set in the [facility] Laboratory at [facility]. Up to 1% of cells in normal samples can show an apparent 7q deletion using this probe. A normal G3B877 FISH finding can result from the absence [...] probe in the [facility] at [facility]. Up to 1.9% of cells in normal samples can show apparent trisomy 8 using this probe. A normal chromosome 8 FISH finding can result from the absence of trisomy 8 or from an insufficient number of neoplastic cells in the specimen. 5) FISH evaluation for a WVCT4J5::RUNX1 rearrangement was performed on nuclei with the LSI GNYC0U5::RUNX1 Dual Color, Dual Fusion Translocation Probe ([employer] for PDFP3D4 (ETO) at 8q22 and RUNX1 (AML1) at 21q22 and is interpreted as NORMAL. No rearrangement was observed in 197/200 nuclei, which is within the normal range (up to 1%) established for this probe in the [facility] at [facility]. Variant signal pattern was observed in 3/200 nuclei. Up to 5% of cells in normal samples can show random overlap of TRVU6P4::RUNX1 probes and additional nuclei may show extra or missing signals. A normal [id number]::RUNX1 FISH finding can result from the absence of an ETJX3S1::RUNX1 rearrangement, from a variant [id number]::RUNX1 rearrangement or from an insufficient number of [...] probe in the Clinical Genomics Laboratory at [facility]. Variant signal pattern was observed in 6/200 [...] probe in the Clinical Genomics Laboratory at [facility]. Up to 1% of cells in normal [...] probe in the Clinical Genomics Laboratory at [facility]. Variant signal pattern was observed in 4/200 [...] probe in the Clinical Genomics Laboratory at [facility]. Up to 2% of cells in normal [...] developed and its performance characteristics determined by [facility]. It has not been cleared or approved by the FDA. The laboratory is regulated under CLIA as qualified to perform high-complexity testing. This test is used for clinical purposes. It should not be regarded as investigational or for research. Professional component performed by Nani Howard, Ph.D., [facility], [address], [place], [place] (CLIA #: [id number]). Chromosome analysis and Fluorescence In Situ Hybridization (FISH) analysis are performed using the [employer] CytoTurpitude Imaging System. Report Electronically Reviewed and Signed Out By Nani Howard, PhDDate Reported: 12/11/2024 Vicente Mandujano MD LAB GENETIC TESTING Final Result * ChromoSeq - Heme Genetic Profiling (WGS) with interpretation (12/08/2024 2:26 PM CDT) Bone Marrow Biopsy 12/08/2024 2:26 PM CDT 12/09/2024 8:37 AM CDT Narrative 12/15/2024 4:27 PM CDT [facility] Pathology Services [facility] [address] [place] [address] Final Report Patient Name: RENU DURON Address: [address] [place] [address] Gender: F : 1965 (Age: 59) Accessioned: 12/09/2024 Taken: 12/08/2024 Received: 12/09/2024 Physician(s): Vicente Mandujano MD Service: [facility] Location: [facility] #: [id number] Patient Type: [facility] ChromoSeq Molecular DiagnosticsReported:12/15/2024 Tissue type: Bone Marrow [...] emily Result See separate Surgical Pathology report. [facility] Bone marrow 12/08/2024 2:26 PM CDT 12/08/2024 4:33 PM CDT Narrative [facility] - 12/09/2024 11:01 AM CDT Tube information: Green top (Sodium Heparin) Vicente Mandujano MD LAB PATHOLOG Y ORDERABLES Final Result [facility] [place] [address] * NPM1 Mutation Detection by RT-PCR (Bunch) -Miscellaneous Molecular Send- out Request (52:26 PM CDT) Result 1 Test Name: NPM1 by RT-PCR Specimen Type: BM Result: See attached scanned report for results. Test name NPM1 by RT-PCR [facility] Bone marrow 12/08/2024 2:26 PM CDT 12/09/2024 9:27 AM CDT Narrative [facility] - 12/15/2024 9:50 AM CDT Collect: Whole [...] ordered. Test Requested:->NPM1 Mutation Detection by RT-PCR (Bunch) Vicente Mandujano MD LAB GENETIC TESTING Final Result Performing Organization Address [facility] Co de Phone Number [facility] [place] [address] * FLT3 ITD PCR (invivoscribe) -Miscellaneous Molecular Send-out Request (12/08/2024 2:26 PM CDT) Result 1 Test Name: _FLT3 ITD MRD by NGS (LabPMM) Specimen Type: _BM Result: See attached scanned report for results. Test name FLT3 ITD MRD by NGS (LabPM) [facility] Bone marrow 12/08/2024 2:26 PM CDT 12/09/2024 9:27 AM CDT Narrative [facility] - 12/28/2024 10:46 AM CDT Test Requested:->FLT3 ITD PCR (invivoscribe) Vicente Mandujano MD LAB GENETIC TESTING Final Result Performing Organization Address City/[facility]/ZIP Co de Phone Number [facility] [place] [address] * Surgical pathology (12/08/2024 2:26 PM CDT) Bone marrow (Bone Marrow Biopsy) 12/08/2024 2:26 PM CDT 12/08/2024 4:12 PM CDT Narrative PATHOLOGY [facility] - 12/09/2024 4:29 PM CDT EPIC results best viewed via link to PDF [facility] [place] [address] Note to Patients: This report may contain [...] Gender: F : 1965 (Age: 59) Address: [address] [place], [place] [id number] Hospital #: [id number] Taken:12/08/2024 Received:12/08/2024 Reported: 12/09/2024 Patient Type: [facility] MED ONC Service: Laboratory Location: Physician(s): Vicente [...] of hemorrhagic material. Labeled B1. Jar 1. [facility]/12/08/2024 16:52 PA(s): Nuzhat Ugalde CBC: Date: 12/08/24 [...] flow cytometry specimen was examined for internal manager quality improvement purposes. Flow cytometry was performed using antibodies [...] Surgical Pathology and Flow Cytometry Departments at [facility] as part of an ongoing quality manager program and in compliance with federally mandated [...] Surgical Pathology and Flow Cytometry Departments of [facility]. It has not been cleared or approved by the U. S. Food and Drug Administration. IMAGES AND SCANNED DOCUMENTS, IF INCLUDED, ONLY VIEWABLE IN PDF VERSION OF REPORT Vicente Mandujano MD LAB PATHOLOG Y ORDERABLES Final Result PATHOLOGY [facility] 3rd Floor [place], [place] [phone] * HR HLA Typing (Class I and [...] sequencing (NGS) using the AllType NGS assay ([employer]) on the Brainly platform, which outperforms the Sonny Sequence-based typing (SBT) but is not FDA approved for HLA typing. The sequence-specific primers (SSP) method may be employed to resolve ambiguity using FDA approved IVD products ([employer] SSP) as indicated. The performance of the above methods are validated by the [facility] HLA Laboratory. For typing results reported using [...] viewed at http://hla.alleles.org/alleles/g_groups.html. Testing performed at the [facility] HLA Laboratory, [facility], 5th floor, [place], [address]. CLIA # [id number]. Nicole Riley, Ph.D., Auto Radiator Mechanic, HLA Laboratory Franklin Hull M.D., Ph.D., [employer] Supervisor, HLA Laboratory Gladis Zuluaga, Ph.D., CLIA [employer] Supervisor, [facility] Clinical Laboratories Current methodology comment last [...] MD LAB BLOOD OR DERABLES Final Result [facility] [place] [address] * (ABNORMAL) Differential, auto (12/08/2024 1:36 PM CDT) Neutrophil abs 0.70(L) 1.50 - 6.50 K/cumm Comment:Testing performed by : [facility] Heme Lab, [address] [place] [address] Lymphocyte abs 0.07(L) 0.80 - 3.30 K/cumm CERNER [facility] Comment:Testing performed by : [facility]e [facility], [address] [place], [place] [phone] Monocyte abs 0.05(L) 0.20 - 0.80 K/cumm CERNER [facility] Comment:Testing performed by : [facility] Heme [facility], [address] [place] [address] Eosinophil abs 0.00 0.00 - 0.50 K/cumm CERNER BJ Comment:Testing performed by : [facility]e [facility], [address] [place] [address] Basophil abs 0.01 0.00 - 0.10 K/cumm CERNER BJ Comment:Testing performed by : [facility]e [facility], [address] [place] [phone] Neutrophil pct 84.3 % CERNER BJ Comment: Interpretive Data Percent cell count reference ranges are not reported, since discordance with absolute values may lead to misinterpretation of CBC data. Current Interpretive Data was last revised on 2017. Testing performed by: [facility]e [facility], [address] [place] [address] Lymphocyte pct 7.9 % CERNER BJ Comment: Interpretive Data Percent cell count reference ranges are not reported, since discordance with absolute values may lead to misinterpretation of CBC data. Current Interpretive Data was last revised on 2017. Testing performed by: [facility]e [facility], [address] [place] [phone] Monocyte pct 6.4 % DAVID GARCÍA Comment: Interpretive Data Percent cell count reference ranges are not reported, since discordance with absolute values may lead to misinterpretation of CBC data. Current Interpretive Data was last revised on 2017. Testing performed by: [facility] Heme [facility], [address] [place] [phone] Eosinophil pct 0.2 % DAVID GARCÍA Comment: Interpretive Data Percent cell count reference ranges are not reported, since discordance with absolute values may lead to misinterpretation of CBC data. Current Interpretive Data was last revised on 2017. Testing performed by: [facility], [address] [place] [phone] Basophil pct 1.1 % DAVID GARCÍA Comment: Interpretive Data Percent cell count reference ranges are not reported, since discordance with absolute values may lead to misinterpretation of CBC data. Current Interpretive Data was last revised on 2017. Testing performed by: [facility], [address] [place] [phone] Blood 12/08/2024 1:36 PM CDT 12/08/2024 2:27 PM CDT Vicente Mandujano MD LAB BLOOD OR DERABLES Final Result [facility] [place] [address] * (ABNORMAL) CBC with auto differential (12/08/2024 1:36 PM CDT) WBC 0.83(L) 3.80 - 9.90 K/cumm Comment:Testing performed by : [facility] Heme [facility], [address] [place] [address] Hgb 10.0(L) 11.9 - 15.5 g/dL CERNER BJ Comment:Testing performed by : [facility]e [facility], [address] [place], [place] [phone] Hct 28.9(L) 35.6 - 45.5 % CERNER BJ Comment:Testing performed by : [facility] Heme [facility], [address] [place], [place] [phone] Plt 54(L) 150 - 400 K/cumm CERNER BJ Comment:Testing performed by : [facility] Heme [facility], [address] [place], [place] [phone] MPV 8.3 6.8 - 10.4 fL CERNER BJ Comment:Testing performed by : [facility]e [facility], [address] [place], [place] [phone] RBC 3.40(L) 3.90 - 5.20 M/cumm CERNER BJ Comment:Testing performed by : [facility]e [facility], [address] [place] [address] MCV 85.1 81.3 - 96.4 fL CERNER BJ Comment:Testing performed by : [facility]e [facility], [address] [place] [address] MCH 29.5 27.1 - 33.3 pg CERNER BJ Comment:Testing performed by : [facility], [address] [place] [address] MCHC 34.7 32.3 - 35.7 g/dL CERNER BJ Comment:Testing performed by : [facility], [address] [place] [address] RDW CV 14.6 11.1 - 14.9 % CERNER BJ Comment:Testing performed by : [facility], [address] [place], [place] [phone] NRBC abs 0.00 0.00 - 0.01 K/cumm CERNER BJ Comment:Testing performed by : [facility]e [facility], [address] [place] [address] Blood 12/08/2024 1:36 PM CDT 12/08/2024 2:27 PM CDT Vicente Mandujano MD LAB BLOOD OR DERABLES Final Result Performing Organization Address [facility] Co de Phone Number [facility] [place] [address] * (ABNORMAL) Uric acid (12/08/2024 1:36 PM CDT) Uric acid 2.0(L) 2.5 - 7.0 mg/dL Blood 12/08/2024 1:36 PM CDT 12/08/2024 2:28 PM CDT Vicente Mandujano MD LAB BLOOD OR DERABLES Final Result Performing Organization Address [facility] de Phone Number [facility] [place] [address] * Lactate dehydrogenase (LD) (12/08/2024 1:36 PM CDT) Lactate dehydrogenase (LDH) 205 100 - 250 Units/L Blood 12/08/2024 1:36 PM CDT 12/08/2024 2:28 PM CDT Result [facility] Vicente Mandujano MD LAB BLOOD OR DERABLES Final Result Performing Organization Address [facility] de Phone Number [facility] [place] [address] * Bilirubin, direct (12/08/2024 1:36 PM CDT) Bilirubin, direct 0.3 0.1 - 0.3 mg/dL Blood 12/08/2024 1:36 PM CDT 12/08/2024 2:28 PM CDT Vicente Mandujano MD LAB BLOOD OR DERABLES Final Result [facility] [place] [address] * (ABNORMAL) Comprehensive metabolic panel (12/08/2024 1:36 PM CDT) Sodium 141 135 - 145 mmol/L Potassium, pl 3.4 3.3 - 4.9 mmol/L [facility] Chloride 102 97 - 110 mmol/L CERNER [facility] CO2 25 22 - 32 mmol/L [facility] Anion gap 14 2 - 15 mmol/L [facility] BUN 9 6 - 25 mg/dL [facility] Creatinine 0.67 0.60 - 1.10 mg/dL [facility] Glucose 118 70 - 199 mg/dL [facility] Comment: Interpretive Data Fasting glucose >/= 126 [...] 2022. Calcium 9.2 8.5 - 10.3 mg/dL [facility] Bilirubin, total 0.5 0.1 - 1.2 mg/dL [facility] Protein, pl 6.7 6.5 - 8.5 g/dL [facility] Albumin 3.7 3.5 - 5.0 g/dL [facility] Alk phos 139(H) 40 - 130 Units/L CERNER [facility] ALT 21 7 - 45 Units/L [facility] AST 22 10 - 45 Units/L [facility] Blood 12/08/2024 1:36 PM CDT 12/08/2024 2:28 PM CDT Vicente Mandujano MD LAB BLOOD OR DERABLES Final Result DAVID [facility] [place] [address] * HLA Antibody Screen - SAB (Class I and Class II) (12/08/2024 1:15 PM CDT) Class I Treatment EDTA HISTOTRAC Class I [...] a method developed and validated by the [facility] HLA laboratory based on an FDA-approved IVD kit (LABScreen Single-Antigen, [employer], [place], [place]). All patient serum samples are pretreated with EDTA before the screen to prevent complement interference. Additional serum treatments, such as adsorption and DTT treatment, may be performed as indicated. Interpretive comments: Low risk: MFI 3460-2728. Moderate risk: MFI 1208-6958. Increased risk: MFI >/= 5000. The presence [...] antigens to avoid. Testing performed at the [facility] Laboratory, [address] [place] [address], 5th floor, [place], [address]. CLIA # [id number]. Nicole Riley, Ph.D., Auto Radiator Mechanic, HLA Laboratory Franklin Hull M.D., Ph.D., [employer] Supervisor, HLA Laboratory Gladis Zuluaga, Ph.D., CLIA [employer] Supervisor, [facility] Clinical Laboratories Current methodology and interpretive comments last revised on 09/27/2022. Vicente Mandujano MD LAB BLOOD OR DERABLES [...] of Race in Diagnosing Kidney Disease, JASN 2021). The CKD-EPI equation should not be used for patients with unstable renal function and has not been validated in children and those over 70. Current interpretive data was last reviewed 2021. Blood 12/08/2024 10:3 7 AM CDT 12/08/2024 10:52 AM CDT Vicente Mandujano MD LAB BLOOD OR DERABLES Final Result [facility] [place] [address] * (ABNORMAL) Differential, auto (12/08/2024 10:37 AM CDT) Neutrophil abs 0.73(L) 1.50 - 6.50 K/cumm Comment:Testing performed by : [facility], [address] [place] [address] Lymphocyte abs 0.08(L) 0.80 - 3.30 K/cumm CERNER [facility] Comment:Testing performed by : [facility], [address] [place], [place] [phone] Monocyte abs 0.06(L) 0.20 - 0.80 K/cumm CERNER BJ Comment:Testing performed by : [facility], [address] [place] [address] Eosinophil abs 0.00 0.00 - 0.50 K/cumm CERNER BJ Comment:Testing performed by : [facility]e [facility], [address] [place] [phone] Basophil abs 0.01 0.00 - 0.10 K/cumm CERNER BJ Comment:Testing performed by : [facility], [address] [place] [address] Neutrophil pct 83.1 % CERNER BJ Comment: Interpretive Data Percent cell count reference ranges are not reported, since discordance with absolute values may lead to misinterpretation of CBC data. Current Interpretive Data was last revised on 2017. Testing performed by: [facility], [address] [place] [phone] Lymphocyte pct 9.5 % DAVID GARCÍA Comment: Interpretive Data Percent cell count reference ranges are not reported, since discordance with absolute values may lead to misinterpretation of CBC data. Current Interpretive Data was last revised on 2017. Testing performed by: [facility], [address] [place] [phone] Monocyte pct 6.3 % DAVID GARCÍA Comment: Interpretive Data Percent cell count reference ranges are not reported, since discordance with absolute values may lead to misinterpretation of CBC data. Current Interpretive Data was last revised on 2017. Testing performed by: [facility], [address] [place] [phone] Eosinophil pct 0.0 % DAVID GARCÍA Comment: Interpretive Data Percent cell count reference ranges are not reported, since discordance with absolute values may lead to misinterpretation of CBC data. Current Interpretive Data was last revised on 2017. Testing performed by: [facility], [address] [place] [phone] Basophil pct 1.1 % DAVID GARCÍA Comment: Interpretive Data Percent cell count reference ranges are not reported, since discordance with absolute values may lead to misinterpretation of CBC data. Current Interpretive Data was last revised on 2017. Testing performed by: [facility], [address] [place] [phone] Blood 12/08/2024 10:3 7 AM CDT 12/08/2024 10:46 AM CDT Vicente Mandujano MD LAB BLOOD OR DERABLES Final Result DAVID WAYNE [facility] [place] [address] * (ABNORMAL) CBC with auto differential (12/08/2024 10:37 AM CDT) WBC 0.88(L) 3.80 - 9.90 K/cumm Comment:Testing performed by : [facility], [address] [place] [address] Hgb 10.3(L) 11.9 - 15.5 g/dL CERNER BJ Comment:Testing performed by : [facility], [address] [place], [place] [phone] Hct 29.5(L) 35.6 - 45.5 % CERNER BJ Comment:Testing performed by : [facility], [address] [place], [place] [phone] Plt 53(L) 150 - 400 K/cumm CERNER BJ Comment:Testing performed by : [facility]e [facility], [address] [place], [place] [phone] MPV 8.4 6.8 - 10.4 fL CERNER BJ Comment:Testing performed by : [facility], [address] [place], [place] [phone] RBC 3.49(L) 3.90 - 5.20 M/cumm CERNER BJ Comment:Testing performed by : [facility], [address] [place] [address] MCV 84.6 81.3 - 96.4 fL CERNER BJ Comment:Testing performed by : [facility], [address] [place], [place] [phone] MCH 29.7 27.1 - 33.3 pg CERNER BJ Comment:Testing performed by : [facility], [address] [place] [address] MCHC 35.1 32.3 - 35.7 g/dL CERNER BJ Comment:Testing performed by : [facility], [address] [place] [address] RDW CV 14.8 11.1 - 14.9 % CERNER BJ Comment:Testing performed by : [facility], [address] [place] [address] NRBC abs 0.00 0.00 - 0.01 K/cumm CERNER BJ Comment:Testing performed by : [facility], [address] [place] [address] [place] [phone] Blood 12/08/2024 10:3 7 AM CDT 12/08/2024 10:46 AM CDT Vicente Mandujano MD LAB BLOOD OR DERABLES Final Result Performing Organization Address City/[facility]/ZIP Co de Phone Number [facility] [place] [address] * Type and screen (12/08/2024 10:37 AM CDT) ABO Rh A Positive Bing, indirect Negative [facility] Blood 12/08/2024 10:3 7 AM CDT 12/08/2024 11:06 AM CDT Narrative [facility] - 12/08/2024 11:56 AM CDT Has the patient had Daratumumab or Isatuximab in the past 6 months?->Unknown Vicente Mandujano MD LAB BLOOD BA NK TEST ORDERABLES Final Result Performing Organization Address [facility] Co de Phone Number [facility] [place] [address] * Phosphorus (12/08/2024 10:37 AM CDT) Pathologist [facility] Phosphorus, pl 2.8 2.3 - 4.5 mg/dL Blood 12/08/2024 10:3 7 AM CDT 12/08/2024 10:52 AM CDT Vicente Mandujano MD LAB BLOOD OR DERABLES Final Result Performing Organization Address [facility] Co de Phone Number [facility] [place] [address] * Magnesium (12/08/2024 10:37 AM CDT) Magnesium 1.9 1.4 - 2.5 mg/dL Blood 12/08/2024 10:3 7 AM CDT 12/08/2024 10:52 AM CDT Vicente Mandujano MD LAB BLOOD OR DERABLES Final Result Performing Organization Address City/[facility] Co de Phone Number [facility] [place] [employer] [place] [address] * Lipase (12/08/2024 10:37 AM CDT) Pathologist [facility] Lipase 21 10 - 99 Units/L Blood 12/08/2024 10:3 7 AM CDT 12/08/2024 10:52 AM CDT Vicente Mandujano MD LAB BLOOD OR DERABLES Final Result Performing Organization Address [facility] Co de Phone Number [facility] [place] [address] * Lactate dehydrogenase (LD) (12/08/2024 10:37 AM CDT) [facility] Lactate dehydrogenase (LDH) 201 100 - 250 Units/L Blood 12/08/2024 10:3 7 AM CDT 12/08/2024 10:52 AM CDT Vicente Mandujano MD LAB BLOOD OR DERABLES Final Result Performing Organization Address City/[facility] [place] [address] * Bilirubin, direct (12/08/2024 10:37 AM CDT) Pathologist [facility] Bilirubin, direct 0.3 0.1 - 0.3 mg/dL Blood 12/08/2024 10:3 7 AM CDT 12/08/2024 10:52 AM CDT Vicente Mandujano MD LAB BLOOD OR DERABLES Final Result Performing Organization Address City/[facility]/ZIP Co de Phone Number [facility] [place] [address] * Amylase (12/08/2024 10:37 AM CDT) Pathologist [facility] Amylase 42 30 - 99 Units/L Blood 12/08/2024 10:3 7 AM CDT 12/08/2024 10:52 AM CDT Vicente Mandujano MD LAB BLOOD OR DERABLES Final Result Performing Organization Address [facility] Co de Phone Number [facility] [place] [address] * (ABNORMAL) Comprehensive metabolic panel (12/08/2024 10:37 AM CDT) Pathologist [facility] Sodium 142 135 - 145 mmol/L Potassium, pl 3.2(L) 3.3 - 4.9 mmol/L [facility] Chloride 103 97 - 110 mmol/L [facility] CO2 27 22 - 32 mmol/L [facility] Anion gap 12 2 - 15 mmol/L [facility] BUN 8 6 - 25 mg/dL [facility] Creatinine 0.70 0.60 - 1.10 mg/dL [facility] Glucose 111 70 - 199 mg/dL [facility] Comment: Interpretive Data Fasting glucose >/= 126 [...] 2022. Calcium 9.3 8.5 - 10.3 mg/dL [facility] Bilirubin, total 0.6 0.1 - 1.2 mg/dL [facility] Protein, pl 6.8 6.5 - 8.5 g/dL [facility] Albumin 3.6 3.5 - 5.0 g/dL [facility] Alk phos 141(H) 40 - 130 Units/L [facility] ALT 21 7 - 45 Units/L [facility] AST 23 10 - 45 Units/L [facility] Blood 12/08/2024 10:3 7 AM CDT 12/08/2024 10:52 AM CDT Vicente Mandujano MD LAB BLOOD OR DERABLES Final Result Performing Organization Address [facility]/ZIP Co de Phone Number [facility] [place] [address] * Transfuse RBC (12/04/2024 1:48 PM CDT) Blood us Jefferson Horvath MD BLOOD TRANSFUSION ORDERABLES Final Result Performing Organization Address [facility]/ZIP Co de Phone Number [facility] [place] [address] * ECG 12 lead (12/04/2024 11:59 AM CDT) Ventricular Rate EKG/Min 93 BPM [facility] Atrial Rate 93 BPM [facility] GA-Interval (MSEC) 136 ms [facility] QRS-Interval (MSEC) 80 ms [facility] QT-Interval (MSEC) 384 ms [facility] QTc 477 ms [facility] P [place] 63 degrees [facility] R [place] 56 degrees [facility] T [place] 50 degrees [facility] Diagnosis Normal sinus rhythm Normal ECG When compared with ECG of 03-DEC-2024 17:22, No significant change was found Confirmed by WALT MAHONEY M.D ([id number]) on 12/06/2024 4:50:14 PM [facility] 12/04/2024 11:5 9 AM CDT 12/06/2024 4:50 PM CDT Jefferson Horvath MD ECG ORDERABLES Final Result Performing Organization Address [facility] Co de Phone Number [facility] * Transfuse platelets (12/04/2024 11:31 AM CDT) Jefferson Horvath MD BLOOD TRANSFUSION ORDERABLES Final Result Performing Organization Address [facility] de Phone Number [facility] [place] [address] * Prepare platelets: 1 Units (12/04/2024 8:00 AM CDT) Product code [id number] Unit Number [id number]- C [facility] Product Blood Type APOS [facility] Dispense Status PRESUMED TRANSFUSED [facility] Blood Venous blood specimen / Unknown 12/04/2024 8:00 AM CDT 12/04/2024 8:00 AM CDT Narrative [facility] - 12/05/2024 12:57 AM CDT Are special requirements needed? (all products are leukoreduced)->Yes Date required:-20240929 Special Req 1:-Irradiated PLT # of Units:-1-Units Reasons:-Stable, non-bleeding, plt < 10 K/cumm} Jefferson Horvath MD BLOOD BANK PRODUCT ORDERABLE S Final Result Performing Organization Address [facility] de Phone Number [facility] [place] [address] * Prepare RBC: 1 Units (12/04/2024 8:00 AM CDT) Product code [id number] Unit Number [id number]- S [facility] Product Blood Type APOS [facility] Dispense Status PRESUMED TRANSFUSED [facility] Blood Venous blood specimen / Unknown 12/04/2024 8:00 AM CDT 12/04/2024 8:00 AM CDT Narrative DAVID GARCÍA - 12/05/2024 12:57 AM CDT Are special requirements needed? (All products are leukoreduced and CMV- safe)- >Yes Date required:-20240929 Special Req 1:-Irradiated LRRBC # of [id number] Reasons:-BMT, Hgb <8 g/dL} us Jefferson Horvath MD BLOOD BANK PRODUCT ORDERABLE S Final Result [facility] [place] [address] * eGFR (12/04/2024 12:23 AM CDT) eGFR >90 >=60 mL/min/1. [...] 3 AM CDT 12/04/2024 12:43 AM CDT us Vicente Mandujano MD LAB BLOOD OR DERABLES Final Result Performing Organization Address [facility]/ZIP Co de Phone Number [facility] [place] [address] * (ABNORMAL) Manual Differential (12/04/2024 12:23 AM CDT) Cells Counted 92 Neutrophil abs 0.29(C) 1.50 - 6.50 K/cumm [facility] Comment:BMT patient, result not critical Lymphocyte abs 0.06(L) 0.80 - 3.30 K/cumm [facility] Monocyte abs 0.01(L) 0.20 - 0.80 K/cumm [facility] Neutrophil pct 79.3 % [facility] Comment: Interpretive Data Percent cell count reference ranges are not reported, since discordance with absolute values may lead to misinterpretation of CBC data. Current Interpretive Data was last revised on 2017. Lymphocyte pct 17.4 % [facility] Comment: Interpretive Data Percent cell count reference ranges are not reported, since discordance with absolute values may lead to misinterpretation of CBC data. Current Interpretive Data was last revised on 2017. Monocyte pct 3.3 % [facility] Comment: Interpretive Data Percent cell count reference ranges are not reported, since discordance with absolute values may lead to misinterpretation of CBC data. Current Interpretive Data was last revised on 2017. RBC morphology Normal [facility] Platelet estimate Decreased( A) [facility] Blood 12/04/2024 12:2 3 AM CDT 12/04/2024 12:42 AM CDT Vicente Mandujano MD LAB BLOOD OR DERABLES Edited Result - Final [facility] [place] [address] * (ABNORMAL) CBC without differential (12/04/2024 12:23 AM CDT) Pathologist [facility] WBC 0.36(C) 3.80 - 9.90 K/cumm Comment:Critical value kebede d within last 72 hrs Hgb 8.1(L) 11.9 - 15.5 g/dL [facility] Hct 22.4(L) 35.6 - 45.5 % [facility] Plt 20(C) 150 - 400 K/cumm [facility] Comment:Platelet count confi rmed by additional testing. Critical platelet count threshold determined by patient location: Outpatient:<50 K/cumm , Inpatient adults:<20 K/cumm , Inpatient pediatric:<25 K/cumm, BMT service:<10 K/cumm MPV 10.9 9.1 - 12.3 fL [facility] RBC 2.66(L) 3.90 - 5.20 M/cumm [facility] MCV 84.2 81.3 - 96.4 fL [facility] MCH 30.5 27.1 - 33.3 pg [facility] MCHC 36.2(H) 32.3 - 35.7 g/dL [facility] RDW CV 13.6 11.1 - 14.9 % [facility] RDW SD 42.1 35.7 - 48.1 fL [facility] NRBC abs 0.00 0.00 - 0.01 K/cumm [facility] Blood 12/04/2024 12:2 3 AM CDT 12/04/2024 12:42 AM CDT Vicente Mandujano MD LAB BLOOD OR DERABLES Edited Result - Final [facility] Department [place] [place] [address] * Phosphorus (12/04/2024 12:23 AM CDT) Phosphorus, pl 2.3 2.3 - 4.5 mg/dL Blood 12/04/2024 12:2 3 AM CDT 12/04/2024 12:38 AM CDT Vicente Mandujano MD LAB BLOOD OR DERABLES Final Result [facility] [place] [address] * Magnesium (12/04/2024 12:23 AM CDT) Pathologist [facility] Magnesium 1.8 1.4 - 2.5 mg/dL Blood 12/04/2024 12:2 3 AM CDT 12/04/2024 12:38 AM CDT Dominique Pino MD LAB BLOOD ORDERABLES Final Resul t [facility] [place] [address] * (ABNORMAL) Basic metabolic panel (12/04/2024 12:23 AM CDT) Pathologist [facility] Sodium 141 135 - 145 mmol/L Potassium, pl 3.9 3.3 - 4.9 mmol/L [facility] Chloride 104 97 - 110 mmol/L [facility] CO2 29 22 - 32 mmol/L [facility] Anion gap 8 2 - 15 mmol/L [facility] BUN 6 6 - 25 mg/dL [facility] Creatinine 0.52(L) 0.60 - 1.10 mg/dL [facility] Glucose 96 70 - 199 mg/dL [facility] Comment: Interpretive Data Fasting glucose >/= 126 [...] 2022. Calcium 8.5 8.5 - 10.3 mg/dL [facility] Blood 12/04/2024 12:2 3 AM CDT 12/04/2024 12:38 AM CDT Narrative [facility] - 12/04/2024 1:13 AM CDT Daily except Saturday and . Morning draw. us Vicente Mandujano MD LAB BLOOD OR DERABLES Final Result [facility] [place] [address] * ECG 12 lead (12/03/2024 5:22 PM CDT) Pathologist [facility] Ventricular Rate EKG/Min 97 BPM [facility] Atrial Rate 97 BPM [facility] GA-Interval (MSEC) 148 ms [facility] QRS-Interval (MSEC) 80 ms [facility] QT-Interval (MSEC) 372 ms [facility] QTc 472 ms [facility] P [place] 64 degrees [facility] R [place] 41 degrees [facility] T [place] 40 degrees [facility] Diagnosis Normal sinus rhythm Normal ECG When compared with ECG of 01-DEC-2024 15:11, No significant change was found Confirmed by JANELLE ARREAGA M.D ([id number]) on 12/04/2024 10:12:17 AM [facility] 12/03/2024 5:22 PM CDT 12/04/2024 10:12 AM CDT us Jefferson Horvath MD ECG ORDERABLES Final Result Performing Organization Address [facility]/ZIP Co de Phone Number [facility] * Tissue aerobic and anaerobic culture and gram stain Biopsy Groin (12/03/2024 3:33 PM CDT) Pathologist [facility] Direct Specimen Exam Stain: No polymorphonuclear leukocytes seen. No organisms seen. Report Final Report: No growth [facility] Biopsy (Groin) 12/03/2024 3: 33 PM CDT 12/03/2024 4:47 PM CDT Narrative [facility] - 12/06/2024 11:16 AM CDT Specimen received in a sterile container. Testing performed by [facility] ([phone]) Specimens submitted from normally sterile body sites [...] ORDER DAWSON Final Result Performing Organization Address [facility] Co de Phone Number [facility] [place] [place] [address] * Mycology (fungal) culture and stain Biopsy Groin (12/03/2024 3:33 PM CDT) Direct Specimen Exam Stain: No Fungal elements seen. Report Final Report: No growth of fungus [facility] Biopsy (Groin) 12/03/2024 3 :33 PM CDT 12/03/2024 4:48 PM CDT Narrative [facility] - 12/31/2024 10:07 AM CDT Specimen received in a sterile container. Testing performed by [facility] ([phone]). Dominique Pino MD LAB MICROBIOLOGY - GENERAL ORDER DAWSON Final Result Performing Organization Address [facility] de Phone Number [facility] [place] [address] * Surgical pathology (12/03/2024 3:33 PM CDT) Tissue (Skin, biopsy) 12/03/2024 3:33 PM CDT 12/03/2024 3:57 PM CDT Narrative PATHOLOGY [facility] - 12/07/2024 12:29 PM CDT EPIC results best viewed via link to PDF [facility] [place] [address] Note to Patients: This report may contain [...] Gender: F : 1965 (Age: 59) Address: [address] [place], [place] [id number] Hospital #: [id number] Taken:12/03/2024 Received:12/03/2024 Reported: 12/07/2024 Patient Type: [facility] Inpatient Service: BoneMarTranspl Location: [place] [address] Physician(s): Margareth Rogers MD Iskra Pusic, M.D. Jason E. Barnett, M.D. Diagnosis: Skin, [...] Dermatopathology Center, Department of Pathology and Immunology, [facility], [address], [place] [address] CLIA # [id number] Anny Pagan M.D. History: The patient is [...] Surgical Pathology and Flow Cytometry Departments at [facility] as part of an ongoing quality manager program and in compliance with federally mandated [...] Surgical Pathology and Flow Cytometry Departments of [facility]. It has not been cleared or approved by the U. S. Food and Drug Administration. IMAGES AND SCANNED DOCUMENTS, IF INCLUDED, ONLY VIEWABLE IN PDF VERSION OF REPORT Dominique Pino MD LAB PATHOLOGY ORDERABLES Final R esult PATHOLOGY [facility] IO [address]rd Floor [place], [place] [phone] * Type and screen (12/03/2024 12:48 AM CDT) ABO Rh A Positive Bing, indirect Negative [facility] Blood 12/03/2024 12:4 8 AM CDT 12/03/2024 1:04 AM CDT Narrative [facility] - 12/03/2024 2:34 AM CDT Has the patient had Daratumumab or Isatuximab in the past 6 months?->Unknown Vicente Mandujano MD LAB BLOOD BA NK TEST ORDERABLES Final Result Performing Organization Address City/[facility]/ZIP Co de Phone Number [facility] [place] [address] * eGFR (12/03/2024 12:47 AM CDT) eGFR [...] MD LAB BLOOD OR DERABLES Final Result [facility] [place] [address] * (ABNORMAL) Manual Differential (12/03/2024 12:47 AM CDT) Cells Counted 71 Neutrophil abs 0.27(C) 1.50 - 6.50 K/cumm [facility] Comment:BMT patient, result not critical Imm gran abs 0.00 0.00 - 0.10 K/cumm [facility] Lymphocyte abs 0.02(L) 0.80 - 3.30 K/cumm [facility] Monocyte abs 0.00(L) 0.20 - 0.80 K/cumm [facility] Neutrophil pct 91.6 % [facility] Comment: Interpretive Data Percent cell count reference ranges are not reported, since discordance with absolute values may lead to misinterpretation of CBC data. Current Interpretive Data was last revised on 2017. Lymphocyte pct 5.6 % [facility] Comment: Interpretive Data Percent cell count reference ranges are not reported, since discordance with absolute values may lead to misinterpretation of CBC data. Current Interpretive Data was last revised on 2017. Monocyte pct 1.4 % [facility] Comment: Interpretive Data Percent cell count reference ranges are not reported, since discordance with absolute values may lead to misinterpretation of CBC data. Current Interpretive Data was last revised on 2017. Metamyelocyte pct 1.4(H) 0.0 - 0.0 % [facility] RBC morphology Present(A ) [facility] Anisocytosis Slight(A) [facility] Microcytes 3-7/HPF(A ) [facility] Platelet estimate Decreased (A) [facility] Blood 12/03/2024 12:4 7 AM CDT 12/03/2024 12:58 AM CDT Vicente Mandujano MD LAB BLOOD OR DERABLES Edited Result - Final [facility] [place] [address] * (ABNORMAL) CBC without differential (12/03/2024 12:47 AM CDT) WBC 0.30(C) 3.80 - 9.90 K/cumm Comment:Consistent with prev iously reported result. Hgb 8.3(L) 11.9 - 15.5 g/dL [facility] Hct 22.4(L) 35.6 - 45.5 % [facility] Plt 15(C) 150 - 400 K/cumm [facility] Comment:Platelet count confi rmed by additional testing. Critical platelet count threshold determined by patient location: Outpatient:<50 K/cumm , Inpatient adults:<20 K/cumm , Inpatient pediatric:<25 K/cumm, BMT service:<10 K/cumm MPV 11.5 9.1 - 12.3 fL [facility] RBC 2.71(L) 3.90 - 5.20 M/cumm [facility] MCV 82.7 81.3 - 96.4 fL [facility] MCH 30.6 27.1 - 33.3 pg [facility] MCHC 37.1(H) 32.3 - 35.7 g/dL [facility] RDW CV 13.7 11.1 - 14.9 % [facility] RDW SD 41.4 35.7 - 48.1 fL [facility] NRBC abs 0.00 0.00 - 0.01 K/cumm [facility] Blood 12/03/2024 12:4 7 AM CDT 12/03/2024 12:58 AM CDT Vicente Mandujano MD LAB BLOOD OR DERABLES Edited Result - Final [facility] [place] [address] * (ABNORMAL) Uric acid (12/03/2024 12:47 AM CDT) Uric acid 1.1(L) 2.5 - 7.0 mg/dL Blood 12/03/2024 12:4 7 AM CDT 12/03/2024 12:55 AM CDT Narrative [facility] - 12/03/2024 1:39 AM CDT Saturday and only. Morning draw. . Vicente Mandujano MD LAB BLOOD OR DERABLES Final Result [facility] [place] [address] * (ABNORMAL) Phosphorus (12/03/2024 12:47 AM CDT) Phosphorus, pl 2.2(L) 2.3 - 4.5 mg/dL Blood 12/03/2024 12:4 7 AM CDT 12/03/2024 12:55 AM CDT Vicente Mandujano MD LAB BLOOD OR DERABLES Final Result Performing Organization Address City/[facility]/ZIP Co de Phone Number [facility] [place] [address] * Magnesium (12/03/2024 12:47 AM CDT) Magnesium 1.7 1.4 - 2.5 mg/dL Blood 12/03/2024 12:4 7 AM CDT 12/03/2024 12:55 AM CDT Dominique Pino MD LAB BLOOD ORDERABLES Final Resul t Performing Organization Address City/[facility]/ZIP Co de Phone Number [facility] [place] [address] * Lactate dehydrogenase (LD) (12/03/2024 12:47 AM CDT) Lactate dehydrogenase (LDH) 161 100 - 250 Units/L Blood 12/03/2024 12:4 7 AM CDT 12/03/2024 12:55 AM CDT Narrative [facility] - 12/03/2024 1:39 AM CDT Saturday and only. Morning draw. Vicente Mandujano MD LAB BLOOD OR DERABLES Final Result [facility] [place] [address] * (ABNORMAL) Comprehensive metabolic panel (12/03/2024 12:47 AM CDT) Pathologist [facility] Sodium 141 135 - 145 mmol/L Potassium, pl 3.0(L) 3.3 - 4.9 mmol/L [facility] Chloride 102 97 - 110 mmol/L [facility] CO2 32 22 - 32 mmol/L [facility] Anion gap 7 2 - 15 mmol/L [facility] BUN 5(L) 6 - 25 mg/dL [facility] Creatinine 0.52(L) 0.60 - 1.10 mg/dL [facility] Glucose 99 70 - 199 mg/dL [facility] Comment: Interpretive Data Fasting glucose >/= 126 [...] 2022. Calcium 8.4(L) 8.5 - 10.3 mg/dL [facility] Bilirubin, total 0.9 0.1 - 1.2 mg/dL [facility] Protein, pl 5.5(L) 6.5 - 8.5 g/dL [facility] Albumin 2.6(L) 3.5 - 5.0 g/dL [facility] Alk phos 97 40 - 130 Units/L [facility] ALT 23 7 - 45 Units/L [facility] AST 16 10 - 45 Units/L [facility] Blood 12/03/2024 12:4 7 AM CDT 12/03/2024 12:55 AM CDT Narrative [facility] - 12/03/2024 1:39 AM CDT Saturday and only. Morning draw. us Vicente Mandujano MD LAB BLOOD OR DERABLES Final Result [facility] [place] [address] * (ABNORMAL) Creatine kinase (CK), total (12/02/2024 7:25 PM CDT) Pathologist [facility] CK 29(L) 30 - 200 Units/L Blood 12/02/2024 7:25 PM CDT 12/02/2024 7:38 PM CDT us Cheo Boudreaux MD LAB BLOOD ORDERABLES Final Res ult [facility] [place] [address] * eGFR (12/02/2024 12:37 AM CDT) eGFR [...] MD LAB BLOOD OR DERABLES Final Result [facility] [place] [address] * (ABNORMAL) Manual Differential (12/02/2024 12:37 AM CDT) Neutrophil abs 0.27(C) 1.50 - 6.50 K/cumm Comment:BMT patient, result not critical Lymphocyte abs 0.04(L) 0.80 - 3.30 K/cumm [facility] Monocyte abs 0.01(L) 0.20 - 0.80 K/cumm [facility] Neutrophil pct 84.2 % [facility] Comment: Interpretive Data Percent cell count reference ranges are not reported, since discordance with absolute values may lead to misinterpretation of CBC data. Current Interpretive Data was last revised on 2017. Lymphocyte pct 12.3 % [facility] Comment: Interpretive Data Percent cell count reference ranges are not reported, since discordance with absolute values may lead to misinterpretation of CBC data. Current Interpretive Data was last revised on 2017. Monocyte pct 3.5 % [facility] Comment: Interpretive Data Percent cell count reference ranges are not reported, since discordance with absolute values may lead to misinterpretation of CBC data. Current Interpretive Data was last revised on 2017. RBC morphology Normal [facility] Platelet estimate Decreased( A) [facility] Blood 12/02/2024 12:3 7 AM CDT 12/02/2024 12:51 AM CDT Vicente Mandujano MD LAB BLOOD OR DERABLES Final Result [facility] [place] [address] * (ABNORMAL) CBC without differential (12/02/2024 12:37 AM CDT) WBC 0.32(C) 3.80 - 9.90 K/cumm Comment:Consistent with prev ious reported value Hgb 9.4(L) 11.9 - 15.5 g/dL [facility] Hct 25.8(L) 35.6 - 45.5 % [facility] Plt 14(C) 150 - 400 K/cumm [facility] Comment:Platelet count confi rmed by additional testing. Critical platelet count threshold determined by patient location: Outpatient:<50 K/cumm , Inpatient adults:<20 K/cumm , Inpatient pediatric:<25 K/cumm, BMT service:<10 K/cumm MPV 12.3 9.1 - 12.3 fL [facility] RBC 3.10(L) 3.90 - 5.20 M/cumm [facility] MCV 83.2 81.3 - 96.4 fL [facility] MCH 30.3 27.1 - 33.3 pg [facility] MCHC 36.4(H) 32.3 - 35.7 g/dL [facility] RDW CV 13.8 11.1 - 14.9 % [facility] RDW SD 42.2 35.7 - 48.1 fL [facility] NRBC abs 0.00 0.00 - 0.01 K/cumm [facility] Blood 12/02/2024 12:3 7 AM CDT 12/02/2024 12:51 AM CDT Vicente Mandujano MD LAB BLOOD OR DERABLES Edited Result - Final Performing Organization Address [facility] Co de Phone Number [facility] [place] [address] * Type and screen (12/02/2024 12:37 AM CDT) Pathologist [facility] ABO Rh A Positive Bing, indirect Negative [facility] Blood 12/02/2024 12:3 7 AM CDT 12/02/2024 12:48 AM CDT Narrative [facility] - 12/02/2024 1:46 AM CDT Has the patient had Daratumumab or Isatuximab in the past 6 months?->Unknown Vicente Mandujano MD LAB BLOOD BA NK TEST ORDERABLES Final Result Performing Organization Address [facility] Co de Phone Number [facility] [place] [address] * Phosphorus (12/02/2024 12:37 AM CDT) [facility] Phosphorus, pl 2.4 2.3 - 4.5 mg/dL Blood 12/02/2024 12:3 7 AM CDT 12/02/2024 12:52 AM CDT Vicente Mandujano MD LAB BLOOD OR DERABLES Final Result Performing Organization Address [facility] Co de Phone Number [facility] [place] [address] * (ABNORMAL) Basic metabolic panel (12/02/2024 12:37 AM CDT) [facility] Sodium 141 135 - 145 mmol/L Potassium, pl 3.2(L) 3.3 - 4.9 mmol/L [facility] Chloride 101 97 - 110 mmol/L [facility] CO2 31 22 - 32 mmol/L [facility] Anion gap 9 2 - 15 mmol/L [facility] BUN 4(L) 6 - 25 mg/dL [facility] Creatinine 0.53(L) 0.60 - 1.10 mg/dL [facility] Glucose 99 70 - 199 mg/dL [facility] Comment: Interpretive Data Fasting glucose >/= 126 [...] 2022. Calcium 8.5 8.5 - 10.3 mg/dL [facility] Blood 12/02/2024 12:3 7 AM CDT 12/02/2024 12:52 AM CDT Narrative [facility] - 12/02/2024 1:20 AM CDT Daily except Saturday and . Morning draw. Vicente Mandujano MD LAB BLOOD OR DERABLES Final Result [facility] [place] [address] * ECG 12 lead (12/01/2024 3:11 PM CDT) Pathologist [facility] Ventricular Rate EKG/Min 98 BPM [facility] Atrial Rate 98 BPM [facility] GA-Interval (MSEC) 150 ms [facility] QRS-Interval (MSEC) 86 ms [facility] QT-Interval (MSEC) 372 ms [facility] QTc 474 ms [facility] P [place] 49 degrees [facility] R [place] 46 degrees [facility] T [place] 45 degrees [facility] Diagnosis Normal sinus rhythm Low voltage QRS Borderline ECG When compared with ECG of 30-NOV-2024 08:22, No significant change was found Confirmed by JANELLE ARREAGA M.D ([id number]) on 12/02/2024 11:14:42 AM [facility] 12/01/2024 3:11 PM CDT 12/02/2024 11:14 AM CDT Jefferson Horvath MD ECG ORDERABLES Final Result Performing Organization Address [facility] Co de Phone Number [facility] * Transfuse RBC (12/01/2024 5:35 AM CDT) Blood Jefferson Horvath MD BLOOD TRANSFUSION ORDERABLES Final Result Performing Organization Address [facility] Co de Phone Number [facility] Department [place] [employer] [place] [address] * Prepare RBC: 1 Units (12/01/2024 1:24 AM CDT) Product code [id number] Unit Number [id number]- U [facility] Product Blood Type APOS [facility] Dispense Status PRESUMED TRANSFUSED [facility] Blood Venous blood specimen / Unknown 12/01/2024 1:24 AM CDT 12/01/2024 1:23 AM CDT Narrative [facility] - 12/01/2024 4:00 PM CDT Are special requirements needed? (All products are leukoreduced and CMV- safe)- >Yes Date required:-[id number] Special Req 1:-Irradiated LRRBC # of [id number] Reasons:-BMT, Hgb <8 g/dL} Jefferson Horvath MD BLOOD BANK PRODUCT ORDERABLE S Final Result Performing Organization Address [facility] Co de Phone Number [facility] [place] [employer] [place] [address] * Immature platelet fraction (12/01/2024 12:33 AM CDT) IPF 3.7 1.6 - 10.1 % Blood 12/01/2024 12:3 3 AM CDT 12/01/2024 12:44 AM CDT Vicente Mandujano MD LAB BLOOD OR DERABLES Final Result [facility] [place] [address] * eGFR (12/01/2024 12:33 AM CDT) Pathologist [facility] eGFR >90 >=60 mL/min/1. 73 m2 Comment: [...] LAB BLOOD OR DERABLES Final Result DAVID RICKY [facility] [place] [address] * (ABNORMAL) Manual Differential (12/01/2024 12:33 AM CDT) Pathologist [facility] Differential Manual Cells Counted 102 [facility] Neutrophil abs 0.3(L) 1.5 - 6.5 K/cumm [facility] Comment:BMT patient, result not critical Imm gran abs 0.0 0.0 - 0.1 K/cumm [facility] Lymphocyte abs 0.0(L) 0.8 - 3.3 K/cumm [facility] Monocyte abs 0.0(L) 0.2 - 0.8 K/cumm [facility] Neutrophil pct 87.2 % [facility] Comment: Interpretive Data Percent cell count reference ranges are not reported, since discordance with absolute values may lead to misinterpretation of CBC data. Current Interpretive Data was last revised on 2017. Lymphocyte pct 10.8 % [facility] Comment: Interpretive Data Percent cell count reference ranges are not reported, since discordance with absolute values may lead to misinterpretation of CBC data. Current Interpretive Data was last revised on 2017. Monocyte pct 2.0 % [facility] Comment: Interpretive Data Percent cell count reference ranges are not reported, since discordance with absolute values may lead to misinterpretation of CBC data. Current Interpretive Data was last revised on 2017. RBC morphology Normal [facility] Platelet estimate Decreased( A) [facility] Blood 12/01/2024 12:3 3 AM CDT 12/01/2024 12:41 AM CDT Vicente Mandujano MD LAB BLOOD OR DERABLES Edited Result - Final [facility] [place] [address] * Blood culture Blood (12/01/2024 12:33 AM CDT) Report Final Report: No growth Blood 12/01/2024 12:3 3 AM CDT 12/01/2024 12:41 AM CDT Narrative [facility] - 12/05/2024 7:00 AM CDT Collection->Peripheral 1. [...] performance characteristics have been verified by the [facility] Microbiology Laboratory. For questions about this culture, contact the Microbiology Laboratory at [phone]. Interpretive data was last revised on 24. Jefferson Horvath MD LAB MICROBIOLOGY - GENERAL O RDERABLES Final Result [facility] [place] [address] * (ABNORMAL) CBC without differential (12/01/2024 12:33 AM CDT) WBC 0.3(C) 3.8 - 9.9 K/cumm Comment:Consistent with prev ious reported value Hgb 7.6(L) 11.9 - 15.5 g/dL [facility] Hct 21.3(L) 35.6 - 45.5 % [facility] Plt 12(C) 150 - 400 K/cumm [facility] Comment:Platelet count confi rmed by additional testing. Critical platelet count threshold determined by patient location: Outpatient:<50 K-cumm , Inpatient:<20 K-cumm , BMT service:<10 K-cumm MPV 11.2 9.1 - 12.3 fL [facility] RBC 2.52(L) 3.90 - 5.20 M/cumm [facility] MCV 84.5 81.3 - 96.4 fL [facility] MCH 30.2 27.1 - 33.3 pg [facility] MCHC 35.7 32.3 - 35.7 g/dL [facility] RDW CV 14.1 11.1 - 14.9 % [facility] RDW SD 43.8 35.7 - 48.1 fL [facility] NRBC abs 0.00 0.00 - 0.01 K/cumm [facility] Blood 12/01/2024 12:3 3 AM CDT 12/01/2024 12:41 AM CDT Vicente Mandujano MD LAB BLOOD OR DERABLES Final Result [facility] [place] [address] * (ABNORMAL) Phosphorus (12/01/2024 12:33 AM CDT) Pathologist [facility] Phosphorus, pl 2.2(L) 2.3 - 4.5 mg/dL Blood 12/01/2024 12:3 3 AM CDT 12/01/2024 12:43 AM CDT Vicente Mandujano MD LAB BLOOD OR DERABLES Final Result [facility] [place] [address] * (ABNORMAL) Basic metabolic panel (12/01/2024 12:33 AM CDT) Sodium 144 135 - 145 mmol/L Potassium, pl 3.7 3.3 - 4.9 mmol/L [facility] Chloride 106 97 - 110 mmol/L [facility] CO2 31 22 - 32 mmol/L [facility] Anion gap 7 2 - 15 mmol/L [facility] BUN 5(L) 6 - 25 mg/dL [facility] Creatinine 0.56(L) 0.60 - 1.10 mg/dL [facility] Glucose 92 70 - 199 mg/dL [facility] Comment: Interpretive Data Fasting glucose >/= 126 [...] 2022. Calcium 8.8 8.5 - 10.3 mg/dL [facility] Blood 12/01/2024 12:3 3 AM CDT 12/01/2024 12:43 AM CDT Narrative [facility] - 12/01/2024 1:13 AM CDT Daily except Saturday and . Morning draw. Vicente Mandujano MD LAB BLOOD OR DERABLES Final Result [facility] [place] [address] * eGFR (11/30/2024 12:42 PM CDT) eGFR [...] 2 PM CDT 11/30/2024 12:59 PM CDT us Azalia Schilling MD LAB BLOOD ORDERABLES Final Result Performing Organization Address City/[facility]/ZIP Co de Phone Number [facility] [place] [address] * (ABNORMAL) Phosphorus (11/30/2024 12:42 PM CDT) Pathologist [facility] Phosphorus, pl 1.7(L) 2.3 - 4.5 mg/dL Blood 11/30/2024 12:4 2 PM CDT 11/30/2024 12:59 PM CDT Azalia Schilling MD LAB BLOOD ORDERABLES Final Result Performing Organization Address [facility] Co de Phone Number [facility] [place] [address] * (ABNORMAL) Basic metabolic panel (11/30/2024 12:42 PM CDT) Sodium 138 135 - 145 mmol/L Potassium, pl 3.2(L) 3.3 - 4.9 mmol/L [facility] Chloride 100 97 - 110 mmol/L [facility] CO2 32 22 - 32 mmol/L [facility] Anion gap 6 2 - 15 mmol/L [facility] BUN 5(L) 6 - 25 mg/dL [facility] Creatinine 0.53(L) 0.60 - 1.10 mg/dL [facility] Glucose 133 70 - 199 mg/dL [facility] Comment: Interpretive Data Fasting glucose >/= 126 [...] 2022. Calcium 8.4(L) 8.5 - 10.3 mg/dL [facility] Blood 11/30/2024 12:4 2 PM CDT 11/30/2024 12:59 PM CDT Azalia Schilling MD LAB BLOOD ORDERABLES Final Result [facility] [place] [address] * ECG 12 lead (11/30/2024 8:22 AM CDT) Ventricular Rate EKG/Min 91 BPM [facility] Atrial Rate 91 BPM [facility] GA-Interval (MSEC) 158 ms [facility] QRS-Interval (MSEC) 84 ms [facility] QT-Interval (MSEC) 378 ms [facility] QTc 464 ms [facility] P [place] 75 degrees [facility] R [place] 68 degrees [facility] T [place] 64 degrees [facility] Diagnosis Normal sinus rhythm Normal ECG When compared with ECG of 29-NOV-2024 16:03, (unconfirmed) No significant change was found Confirmed by ASH SALGUERO M.D ([id number]) on 11/30/2024 1:01:23 PM [facility] 11/30/2024 8:22 AM CDT 11/30/2024 1:01 PM CDT us Jefferson Horvath MD ECG ORDERABLES Final Result [facility] * Blood culture Blood Peripheral (11/30/2024 3:36 AM CDT) Report Final Report: No growth Blood (Peripheral) 11/30/2024 3:36 AM CDT 11/30/2024 3:58 AM CDT Narrative [facility] - 12/04/2024 7:01 AM CDT Collection->Peripheral 1. [...] performance characteristics have been verified by the [facility] Microbiology Laboratory. For questions about this culture, contact the Microbiology Laboratory at [phone]. Interpretive data was last revised on 24. Vicente Mandujano MD LAB MICROBIOLOGY - GENERAL ORDERABLES Final Result [facility] [place] [address] * Immature platelet fraction (11/30/2024 12:31 AM CDT) [facility] 2.7 1.6 - 10.1 % Blood 11/30/2024 12:3 1 AM CDT 11/30/2024 1:13 AM CDT Vicente Mandujano MD LAB BLOOD OR DERABLES Final Result [facility] [place] [address] * eGFR (11/30/2024 12:31 AM CDT) Pathologist [facility] eGFR >90 >=60 mL/min/1. 73 m2 Comment: [...] MD LAB BLOOD OR DERABLES Final Result [facility] [place] [address] * (ABNORMAL) Manual Differential (11/30/2024 12:31 AM CDT) [facility] Differential Manual Cells [facility] 64 [facility] Neutrophil abs 0.2(L) 1.5 - 6.5 K/cumm [facility] Comment:BMT patient, result not critical Imm gran abs 0.0 0.0 - 0.1 K/cumm [facility] Lymphocyte abs 0.0(L) 0.8 - 3.3 K/cumm [facility] Monocyte abs 0.0(L) 0.2 - 0.8 K/cumm [facility] Basophil abs 0.0 0.0 - 0.1 K/cumm [facility] Neutrophil pct 90.6 % [facility] Comment: Interpretive Data Percent cell count reference ranges are not reported, since discordance with absolute values may lead to misinterpretation of CBC data. Current Interpretive Data was last revised on 2017. Lymphocyte pct 7.8 % [facility] Comment: Interpretive Data Percent cell count reference ranges are not reported, since discordance with absolute values may lead to misinterpretation of CBC data. Current Interpretive Data was last revised on 2017. Basophil pct 1.6 % [facility] Comment: Interpretive Data Percent cell count reference ranges are not reported, since discordance with absolute values may lead to misinterpretation of CBC data. Current Interpretive Data was last revised on 2017. RBC morphology Present(A) [facility] Anisocytosis Moderate(A ) [facility] Poikilocytosis Slight(A) [facility] Microcytes 8-15/HPF(A ) [facility] Platelet estimate Decreased( A) [facility] Blood 11/30/2024 12:3 1 AM CDT 11/30/2024 1:04 AM CDT Vicente Mandujano MD LAB BLOOD OR DERABLES Edited Result - Final [facility] [place] [address] * aPTT (11/30/2024 12:31 AM CDT) aPTT [...] OR DERABLES Final Result Performing Organization Address [facility] Co de Phone Number [facility] [place] [address] * (ABNORMAL) Protime-INR (11/30/2024 12:31 AM CDT) PT 14.1(H) 9.7 - 13.0 sec INR 1.30(H) 0.90 - 1.20 [facility] Comment: Interpretive data Oral anticoagulant therapeutic ranges: Venous thromboembolism prophylaxis or treatment: 2.0-3.0 CARDIOLOGY Standard range: 2.0-3.0 High-intensity range: 2.5-3.5 Refer to indication-specific guidelines for appropriate target ranges for prosthetic heart valve replacement. Current interpretive data was last revised on 2019. Blood 11/30/2024 12:3 1 AM CDT 11/30/2024 1:07 AM CDT Vicente Mandujano MD LAB BLOOD OR DERABLES Final Result Performing Organization Address [facility] Co de Phone Number [facility] [place] [address] * (ABNORMAL) CBC without differential (11/30/2024 12:31 AM CDT) Pathologist [facility] WBC 0.2(C) 3.8 - 9.9 K/cumm Comment:Consistent with prev ious reported value Hgb 8.4(L) 11.9 - 15.5 g/dL [facility] Hct 23.5(L) 35.6 - 45.5 % [facility] Plt 10(C) 150 - 400 K/cumm [facility] Comment:Platelet count confi rmed by additional testing. Critical platelet count threshold determined by patient location: Outpatient:<50 K-cumm , Inpatient:<20 K-cumm , BMT service:<10 K-cumm MPV 13.3(H) 9.1 - 12.3 fL [facility] RBC 2.82(L) 3.90 - 5.20 M/cumm [facility] MCV 83.3 81.3 - 96.4 fL [facility] MCH 29.8 27.1 - 33.3 pg [facility] MCHC 35.7 32.3 - 35.7 g/dL [facility] RDW CV 14.1 11.1 - 14.9 % [facility] RDW SD 43.4 35.7 - 48.1 fL [facility] NRBC abs 0.00 0.00 - 0.01 K/cumm [facility] Blood 11/30/2024 12:3 1 AM CDT 11/30/2024 1:04 AM CDT Vicente Mandujano MD LAB BLOOD OR DERABLES Final Result Performing Organization Address [facility]/ZIP Co de Phone Number [facility] [place] [employer] [place] [address] * Type and screen (11/30/2024 12:31 AM CDT) Bing, indirect Negative ABO Rh A Positive [facility] Blood 11/30/2024 12:3 1 AM CDT 11/30/2024 1:01 AM CDT Narrative [facility] - 11/30/2024 2:17 AM CDT Has the patient had Daratumumab or Isatuximab in the past 6 months?->Unknown Vicente Mandujano MD LAB BLOOD BA NK TEST ORDERABLES Final Result [facility] [place] [address] * (ABNORMAL) Uric acid (11/30/2024 12:31 AM CDT) Uric acid 0.8(L) 2.5 - 7.0 mg/dL Blood 11/30/2024 12:3 1 AM CDT 11/30/2024 1:07 AM CDT [facility]ative [facility] 11/30/20[facility] 1:49 AM CDT Saturday and only. Morning draw. . Vicente Mandujano MD LAB BLOOD OR DERABLES Final Result Performing Organization Address [facility] Co de Phone Number [facility] [employer] [place] [address] * (ABNORMAL) Phosphorus (11/30/2024 12:31 AM CDT) Pathologist [facility] Phosphorus, pl 1.3(L) 2.3 - 4.5 mg/dL Blood 11/30/2024 12:3 1 AM CDT 11/30/2024 1:07 AM CDT Vicente Mandujano MD LAB BLOOD OR DERABLES Final Result Performing Organization Address [facility] Co de Phone Number [facility] [employer] [place] [address] * Magnesium (11/30/2024 12:31 AM CDT) [facility] Magnesium 1.6 1.4 - 2.5 mg/dL Blood 11/30/2024 12:3 1 AM CDT 11/30/2024 1:07 AM CDT Marcus Vergara MD LAB BLOOD ORDERABLES Final Resu lt Performing Organization Address [facility]/[place] [address] * Lactate dehydrogenase (LD) (11/30/2024 12:31 AM CDT) Lactate dehydrogenase (LDH) 203 100 - 250 Units/L Comment:Reviewed Blood 11/30/2024 12:3 1 AM CDT 11/30/2024 1:07 AM CDT Narrative [facility] 11/30/2024 1:49 AM CDT Saturday and only. Morning draw. Vicente Mandujano MD LAB BLOOD OR DERABLES Final Result [facility] [place] [address] * (ABNORMAL) Comprehensive metabolic panel (11/30/2024 12:31 AM CDT) Sodium 138 135 - 145 mmol/L Potassium, pl 2.9(L) 3.3 - 4.9 mmol/L [facility] Chloride 100 97 - 110 mmol/L [facility] CO2 29 22 - 32 mmol/L [facility] Anion gap 9 2 - 15 mmol/L [facility] BUN 4(L) 6 - 25 mg/dL [facility] Creatinine 0.47(L) 0.60 - 1.10 mg/dL [facility] Glucose 103 70 - 199 mg/dL [facility] Comment: Interpretive Data Fasting glucose >/= 126 [...] 2022. Calcium 8.3(L) 8.5 - 10.3 mg/dL [facility] Bilirubin, total 0.9 0.1 - 1.2 mg/dL [facility] Protein, pl 5.9(L) 6.5 - 8.5 g/dL [facility] Albumin 2.8(L) 3.5 - 5.0 g/dL [facility] Alk phos 105 40 - 130 Units/L [facility] ALT 36 7 - 45 Units/L [facility] AST 28 10 - 45 Units/L [facility] Blood 11/30/2024 12:3 1 AM CDT 11/30/2024 1:07 AM CDT Narrative [facility] - 11/30/2024 1:49 AM CDT Saturday and only. Morning draw. Vicente Mandujano MD LAB BLOOD OR DERABLES Final Result Performing Organization Address [facility] Co de Phone Number [facility] [place] [address] * Vancomycin level trough Draw trough 30 minutes prior to 4th dose. (11/29/2024 8:41 PM CDT) Pathologist [facility] Vancomycin trough 13.8 10.0 - 20.0 mcg/mL Comment:Repeated and Verifie d Blood 11/29/2024 8:41 PM CDT 11/29/2024 9:14 PM CDT Narrative [facility] - 11/29/2024 10:24 PM CDT Draw trough 30 minutes prior to 4th dose. us Marcus Vergara MD LAB BLOOD ORDERABLES Final Resu lt Performing Organization Address [facility] Co de Phone Number [facility] [place] [address] * ECG 12 lead (11/29/2024 4:03 PM CDT) Ventricular Rate EKG/Min 98 BPM [facility] Atrial Rate 98 BPM [facility] GA-Interval (MSEC) 148 ms [facility] QRS-Interval (MSEC) 92 ms [facility] QT-Interval (MSEC) 374 ms [facility] QTc 477 ms [facility] P [place] 56 degrees [facility] R [place] 45 degrees [facility] T [place] 47 degrees [facility] Diagnosis Normal sinus rhythm Normal ECG When compared with ECG of 28-NOV-2024 08:43, (unconfirmed) No significant change was found Confirmed by ASH SALGUERO M.D ([id number]) on 11/30/2024 1:07:47 PM [facility] 11/29/2024 4:03 PM CDT 11/30/2024 1:07 PM CDT Jefferson Horvath MD ECG ORDERABLES Final Result Performing Organization Address [facility]/ZIP Co de Phone Number [facility] * (ABNORMAL) Urinalysis reflex to microscopic and culture Urine (11/29/2024 4:26 AM CDT) Color, ur Straw Yellow Clarity, ur Clear Clear [facility] Specific gravity, ur 1.018 1.003 - 1.030 [facility] pH, urine 7.0 [facility] Comment: Interpretive Data U rine pH is affected by diet, medications, systemic acid-base disturbances, and renal tubular function. pH may affect urinary stone formation. For example, urine pH below 6.0 may help reduce the tendency for calcium phosphate stones and pH greater than 6.0 may reduce the tendency for uric acid stone formation. Source: [facility] Current Interpretive Data was last revised on 2017 Protein, ur ql Negative Negative [facility] Glucose, ur ql Negative Negative [facility] Ketones, ur Negative Negative [facility] Bilirubin, ur Negative Negative [facility] Blood, ur Trace(A) Negative [facility] Urobilinogen, ur <2.0 <2.0 mg/dL [facility] Nitrite, ur Negative Negative [facility] Leukocyte esterase, ur Negative Negative [facility] UA reflex comment Reflex to microscopic UA will be performed. [facility] Urine 11/29/2024 4:26 AM CDT 11/29/2024 4:33 AM CDT us Lazaro Mclean MD LAB MICROBIOLOGY - GENERA L ORDERABLES Final Result [facility] [place] [address] * Urinalysis, microscopic only (11/29/2024 4:26 AM CDT) WBC, ur 0-5 0 - 5 /HPF RBC, ur 0-2 0 - 2 /HPF [facility] Culture Reflex Comment Reflex to urine culture will be performed. [facility] Urine 11/29/2024 4:26 AM CDT 11/29/2024 4:33 AM CDT Lazaro Mclean MD LAB URINE ORDERABLES Rosalva l Result Performing Organization Address [facility] Co de Phone Number [facility] [place] [address] * Urine culture Urine (11/29/2024 4:26 AM CDT) Report Final Report: No growth Urine 11/29/2024 4:26 AM CDT 11/29/2024 5:06 AM CDT Narrative [facility] - 11/30/2024 7:36 AM CDT Urine culture reflexed based upon urinalysis results. Testing performed by [facility] ([phone]) Lazaro Mclean MD LAB MICROBIOLOGY - GENERA L ORDERABLES Final Result Performing Organization Address [facility] de Phone Number [facility] [place] [address] * CT Abdomen Pelvis W Contrast (11/29/2024 [...] MD LAB BLOOD ORDERABLES Rosalva l Result [facility] [place] [address] * Blood culture Blood (11/29/2024 1:23 AM CDT) Report Final Report: No growth Blood 11/29/2024 1:23 AM CDT 11/29/2024 1:37 AM CDT Narrative [facility] - 12/03/2024 7:00 AM CDT Collection->Peripheral 1. [...] performance characteristics have been verified by the [facility]. For questions about this culture, contact the Microbiology Laboratory at [phone]. Interpretive data was last revised on 24. Jefferson Horvath MD LAB MICROBIOLOGY - GENERAL O RDERABLES Final Result Performing Organization Address City/[facility]/ZIP Co de Phone Number [facility] [place] [address] * Immature platelet fraction (11/29/2024 12:38 AM CDT) [facility] IPF 2.3 1.6 - 10.1 % Blood 11/29/2024 12:3 8 AM CDT 11/29/2024 1:05 AM CDT Vicente Mandujano MD LAB BLOOD OR DERABLES Final Result Performing Organization Address [facility] Co de Phone Number [facility] [place] [address] * eGFR (11/29/2024 12:38 AM CDT) [facility] eGFR >90 >=60 mL/min/1. 73 m2 [...] MD LAB BLOOD OR DERABLES Final Result [facility] [place] [address] * (ABNORMAL) Manual Differential (11/29/2024 12:38 AM CDT) Differential Manual Cells Counted 31 [facility] Neutrophil abs 0.1(L) 1.5 - 6.5 K/cumm [facility] Comment:BMT patient, result not critical Imm gran abs 0.0 0.0 - 0.1 K/cumm [facility] Lymphocyte abs 0.0(L) 0.8 - 3.3 K/cumm [facility] Monocyte abs 0.0(L) 0.2 - 0.8 K/cumm [facility] Neutrophil pct 87.1 % [facility] Comment: Interpretive Data Percent cell count reference ranges are not reported, since discordance with absolute values may lead to misinterpretation of CBC data. Current Interpretive Data was last revised on 2017. Lymphocyte pct 12.9 % [facility] Comment: Interpretive Data Percent cell count reference ranges are not reported, since discordance with absolute values may lead to misinterpretation of CBC data. Current Interpretive Data was last revised on 2017. RBC morphology Present(A) [facility] Anisocytosis Moderate(A ) [facility] Microcytes 8-15/HPF(A ) [facility] Platelet estimate Decreased( A) [facility] Blood 11/29/2024 12:3 8 AM CDT 11/29/2024 1:02 AM CDT us Vicente Mandujano MD LAB BLOOD OR DERABLES Edited Result - Final [facility] [place] [address] * (ABNORMAL) CBC without differential (11/29/2024 12:38 AM CDT) WBC 0.1(C) 3.8 - 9.9 K/cumm Comment:Consistent with prev ious reported value Hgb 9.2(L) 11.9 - 15.5 g/dL [facility] Hct 25.1(L) 35.6 - 45.5 % [facility] Plt 12(C) 150 - 400 K/cumm [facility] Comment:Platelet count confi rmed by additional testing. Critical platelet count threshold determined by patient location: Outpatient:<50 K-cumm , Inpatient:<20 K-cumm , BMT service:<10 K-cumm MPV 11.1 9.1 - 12.3 fL [facility] RBC 3.08(L) 3.90 - 5.20 M/cumm [facility] MCV 81.5 81.3 - 96.4 fL [facility] MCH 29.9 27.1 - 33.3 pg [facility] MCHC 36.7(H) 32.3 - 35.7 g/dL [facility] RDW CV 14.3 11.1 - 14.9 % [facility] RDW SD 42.3 35.7 - 48.1 fL [facility] NRBC abs 0.00 0.00 - 0.01 K/cumm [facility] Blood 11/29/2024 12:3 8 AM CDT 11/29/2024 1:02 AM CDT Vicente Mandujano MD LAB BLOOD OR DERABLES Final Result Performing Organization Address [facility]/ZIP Co de Phone Number [facility] [place] [place] [address] * Type and screen (11/29/2024 12:38 AM CDT) ABO Rh A Positive Bing, indirect Negative [facility] Blood 11/29/2024 12:3 8 AM CDT 11/29/2024 1:05 AM CDT Narrative [facility] - 11/29/2024 1:58 AM CDT Has the patient had Daratumumab or Isatuximab in the past 6 months?->Unknown Vicente Mandujano MD LAB BLOOD BA NK TEST ORDERABLES Final Result Performing Organization Address [facility] Co de Phone Number [facility] [place] [address] * (ABNORMAL) CRP (acute phase) (11/29/2024 12:38 AM CDT) CRP 241.5(H) <=10.0 mg/L Blood 11/29/2024 12:3 8 AM CDT 11/29/2024 1:02 AM CDT Marcus Vergara MD LAB BLOOD ORDERABLES Final Resu lt Performing Organization Address [facility] Co de Phone Number [facility] [place] [address] * (ABNORMAL) Phosphorus (11/29/2024 12:38 AM CDT) Phosphorus, pl 1.9(L) 2.3 - 4.5 mg/dL Blood 11/29/2024 12:3 8 AM CDT 11/29/2024 1:02 AM CDT Vicente Mandujano MD LAB BLOOD OR DERABLES Final Result [facility] [place] [address] * (ABNORMAL) Basic metabolic panel (11/29/2024 12:38 AM CDT) Pathologist [facility] Sodium 138 135 - 145 mmol/L Potassium, pl 3.7 3.3 - 4.9 mmol/L [facility] Comment:Hemolyzed; Potassium value may be falsely elevated by as much as 0.6-1.0 mmol/L. Suggest redraw and reanalysis. Chloride 100 97 - 110 mmol/L [facility] CO2 27 22 - 32 mmol/L [facility] Anion gap 11 2 - 15 mmol/L [facility] BUN 4(L) 6 - 25 mg/dL [facility] Creatinine 0.51(L) 0.60 - 1.10 mg/dL [facility] Glucose 111 70 - 199 mg/dL [facility] Comment: Interpretive Data Fasting glucose >/= 126 [...] 2022. Calcium 8.3(L) 8.5 - 10.3 mg/dL [facility] Blood 11/29/2024 12:3 8 AM CDT 11/29/2024 1:02 AM CDT [facility] 11/[facility] 1:33 AM CDT Daily except Saturday and . Morning draw. Vicente Mandujano MD LAB BLOOD OR DERABLES Final Result Performing Organization Address [facility] Co de Phone Number [facility] [employer] [place] [address] * Coccidioides antibody screen w/reflex Blood (11/28/2024 9:25 AM CDT) Pathologist [facility] Coccidioides ab screen, ser Negative Negative [place] [facility] Comment: Repeat testing on a new sample in 2-3 weeks if clinically indicated. ADDITIONAL INFORMATION This test has been modified from the frame pulley mortising machine operator's instructions. Its performance characteristics were determined by [facility] in a manner consistent with CLIA requirements. This test has not been cleared or approved by the U.S. Food and Drug Administration. Test Performed by: [place] [address] Restaurant Worker: Jesus Fontenot Ph.D.; CLIA# [id number] Blood 11/28/2024 9:25 AM CDT 11/28/2024 9:58 AM CDT Jefferson Horvath MD LAB MICROBIOLOGY - GENERAL O RDERABLES Final Result Performing Organization Address [facility] Co de Phone Number [facility] [place] [place] [address] [place] [facility] * Blastomyces antibody, EIA, serum Blood (11/28/2024 9:25 AM CDT) Pathologist [facility] Blastomyces Antibody Negative Negative [place] [facility] Comment: A single negative result does not exclude the diagnosis of blastomycosis. Repeat testing on a new sample in 7-14 days if clinically indicated. Test Performed by: [address] [place] [address] Restaurant Worker: Jesus Fontenot Ph.D.; CLIA# [id number] Blood 11/28/2024 9:25 AM CDT 11/28/2024 9:57 AM CDT Jefferson Horvath MD LAB MICROBIOLOGY - GENERAL O RDERABLES Final Result Performing Organization Address [facility] Co de Phone Number [facility] [place] [address] [place] [facility] * ECG 12 lead (11/28/2024 8:43 AM CDT) Ventricular Rate EKG/Min 86 BPM [facility] Atrial Rate 86 BPM [facility] GA-Interval (MSEC) 150 ms [facility] QRS-Interval (MSEC) 76 ms [facility] QT-Interval (MSEC) 398 ms [facility] QTc 476 ms [facility] P [place] 79 degrees [facility] R [place] 53 degrees [facility] T [place] 51 degrees [facility] Diagnosis Normal sinus rhythm Normal ECG Confirmed by Lalo COOL, [facility] ([id number]) on 11/30/2024 10:23:05 AM [facility] 11/28/2024 8:43 AM CDT 11/30/2024 10:23 AM CDT Jefferson Horvath MD ECG ORDERABLES Final Result Performing Organization Address [facility] Co de Phone Number [facility] * Transfuse RBC (11/28/2024 6:46 AM CDT) Blood Jefferson Horvath MD BLOOD TRANSFUSION ORDERABLES Final Result Performing Organization Address [facility] Co de Phone Number [facility] [place] [address] * (ABNORMAL) Vancomycin level trough (11/28/2024 3:58 AM CDT) Vancomycin trough <4.0(L) 10.0 - 20.0 mcg/mL Blood 11/28/2024 3:58 AM CDT 11/28/2024 4:18 AM CDT us Faheem Mcdaniels MD LAB BLOOD ORDERABLES Final R esult Performing Organization Address [facility] Co de Phone Number [facility] [place] [address] * Prepare RBC: 1 Units (11/28/2024 1:19 AM CDT) [facility] Product code [id number] Unit Number [id number] 1 [facility] Product Blood Type APOS [facility] Dispense Status PRESUMED TRANSFUSED [facility] Blood Venous blood specimen / Unknown 11/28/2024 1:19 AM CDT 11/28/2024 1:18 AM CDT Narrative [facility] - 11/28/2024 8:01 PM CDT Are special requirements needed? (All products are leukoreduced and CMV- safe)- >Yes Date required:-20240929 Special Req 1:-Irradiated LRRBC # of [id number] Reasons:-BMT, Hgb <8 g/dL} us Jefferson Horvath MD BLOOD BANK PRODUCT ORDERABLE S Final Result Performing Organization Address [facility] Co de Phone Number [facility] [place] [address] * Immature platelet fraction (11/28/2024 12:27 AM CDT) [facility] IPF 1.6 1.6 - 10.1 % Blood 11/28/2024 12:2 7 AM CDT 11/28/2024 12:59 AM CDT us Vicente Mandujano MD LAB BLOOD OR DERABLES Final Result Performing Organization Address City/[facility]/ZIP Co de Phone Number DAVID [facility] [place] [address] * eGFR (11/28/2024 12:27 AM CDT) Pathologist [facility] eGFR >90 >=60 mL/min/1. 73 m2 Comment: [...] OR DERABLES Final Result Performing Organization Address [facility] Co de Phone Number [facility] [place] [address] * (ABNORMAL) Manual Differential (11/28/2024 12:27 AM CDT) Pathologist [facility] Differential Manual Cells Counted 18 [facility] Neutrophil pct 77.8 % [facility] Comment: Interpretive Data Percent cell count reference ranges are not reported, since discordance with absolute values may lead to misinterpretation of CBC data. Current Interpretive Data was last revised on 2017. Lymphocyte pct 22.2 % [facility] Comment: Interpretive Data Percent cell count reference ranges are not reported, since discordance with absolute values may lead to misinterpretation of CBC data. Current Interpretive Data was last revised on 2017. RBC morphology Present(A) [facility] Anisocytosis Moderate(A ) [facility] Microcytes 8-15/HPF(A ) [facility] Platelet estimate Decreased( A) [facility] Blood 11/28/2024 12:2 7 AM CDT 11/28/2024 12:55 AM CDT Vicente Mandujano MD LAB BLOOD OR DERABLES Edited Result - Final [facility] [place] [address] * (ABNORMAL) CBC without differential (11/28/2024 12:27 AM CDT) WBC 0.0(C) 3.8 - 9.9 K/cumm Comment:Consistent with prev ious reported value Hgb 7.4(L) 11.9 - 15.5 g/dL [facility] Hct 20.3(L) 35.6 - 45.5 % [facility] Plt 18(C) 150 - 400 K/cumm [facility] Comment:Platelet count confi rmed by additional testing. Critical platelet count threshold determined by patient location: Outpatient:<50 K-cumm , Inpatient:<20 K-cumm , BMT service:<10 K-cumm MPV 10.9 9.1 - 12.3 fL [facility] RBC 2.47(L) 3.90 - 5.20 M/cumm [facility] MCV 82.2 81.3 - 96.4 fL [facility] MCH 30.0 27.1 - 33.3 pg [facility] MCHC 36.5(H) 32.3 - 35.7 g/dL [facility] RDW CV 14.8 11.1 - 14.9 % [facility] RDW SD 44.6 35.7 - 48.1 fL [facility] NRBC abs 0.00 0.00 - 0.01 K/cumm [facility] Blood 11/28/2024 12:2 7 AM CDT 11/28/2024 12:55 AM CDT Vicente Mandujano MD LAB BLOOD OR DERABLES Final Result Performing Organization Address [facility] Co de Phone Number [facility] [place] [address] * Phosphorus (11/28/2024 12:27 AM CDT) [facility] Phosphorus, pl 2.4 2.3 - 4.5 mg/dL Blood 11/28/2024 12:2 7 AM CDT 11/28/2024 12:55 AM CDT Vicente Mandujano MD LAB BLOOD OR DERABLES Final Result Performing Organization Address [facility] Co de Phone Number [facility] [place] [address] * Magnesium (11/28/2024 12:27 AM CDT) [facility] Magnesium 2.1 1.4 - 2.5 mg/dL Blood 11/28/2024 12:2 7 AM CDT 11/28/2024 12:55 AM CDT Faheem Mcdaniels MD LAB BLOOD ORDERABLES Final R esult Performing Organization Address [facility] Co de Phone Number [facility] [place] [place] [address] * (ABNORMAL) Basic metabolic panel (11/28/2024 12:27 AM CDT) [facility] Sodium 139 135 - 145 mmol/L Potassium, pl 3.6 3.3 - 4.9 mmol/L [facility] Chloride 103 97 - 110 mmol/L [facility] CO2 28 22 - 32 mmol/L [facility] Anion gap 8 2 - 15 mmol/L [facility] BUN 5(L) 6 - 25 mg/dL [facility] Creatinine 0.57(L) 0.60 - 1.10 mg/dL [facility] Glucose 114 70 - 199 mg/dL [facility] Comment: Interpretive Data Fasting glucose >/= 126 [...] 2022. Calcium 8.0(L) 8.5 - 10.3 mg/dL [facility] Blood 11/28/2024 12:2 7 AM CDT 11/28/2024 12:55 AM CDT Narrative [facility] - 11/28/2024 1:23 AM CDT Daily except Saturday and . Morning draw. Vicente Mandujano MD LAB BLOOD OR DERABLES Final Result [facility] [place] [address] * Blood culture Blood Peripheral (11/27/2024 9:07 PM CDT) Report Final Report: No growth Blood (Peripheral) 11/27/2024 9:07 PM CDT 11/27/2024 9:48 PM CDT Narrative [facility] - 12/02/2024 7:00 AM CDT Collection->Peripheral 1. [...] performance characteristics have been verified by the [facility]. For questions about this culture, contact the Microbiology Laboratory at [phone]. Interpretive data was last revised on 24. Vicente Mandujano MD LAB MICROBIOLOGY - GENERAL ORDERABLES Final Result [facility] [place] [address] * ECG 12 lead (11/27/2024 3:25 PM CDT) Pathologist [facility] Ventricular Rate EKG/Min 102 BPM [facility] Atrial Rate 102 BPM [facility] GA-Interval (MSEC) 142 ms [facility] QRS-Interval (MSEC) 76 ms [facility] QT-Interval (MSEC) 410 ms [facility] QTc 534 ms [facility] P [place] 52 degrees [facility] R [place] 38 degrees [facility] T [place] 45 degrees [facility] Diagnosis Sinus tachycardia with occasional Premature ventricular complexes Prolonged QT Abnormal ECG When compared with ECG of 26-NOV-2024 15:53, Premature ventricular complexes are now Present QT has lengthened Confirmed by JANELLE ARREAGA M.D ([id number]) on 11/30/2024 10:25:00 AM [facility] 11/27/2024 3:25 PM CDT 11/30/2024 10:25 AM CDT us Jefferson Horvath MD ECG ORDERABLES Final Result [address] [employer] [facility] * CT Chest Abdomen Pelvis [...] it. Electronically signed by: Vinay Rome MD us Jefferson Horvath MD IMG CT PROCEDURES Final [...] recommended. Electronically signed by: Gena Christianson MD Narrative 11/27/2024 7:55 AM CDT EXAMINATION: CT head [...] Horvath MD BLOOD TRANSFUSION ORDERABLES Final Result [facility] [place] [address] * Prepare platelets: 1 Units (11/27/2024 1:49 AM CDT) [facility] Product code [id number] Unit Number [id number] U [facility] Product Blood Type APOS [facility] Dispense Status PRESUMED TRANSFUSED [facility] Blood Venous blood specimen / Unknown 11/27/2024 1:49 AM CDT 11/27/2024 1:48 AM CDT Narrative [facility] - 11/27/2024 4:01 PM CDT Are special requirements needed? (all products are leukoreduced)->Yes Date required:-20240929 Special Req 1:-Irradiated PLT # of Units:-1-Units Reasons:-Stable, non-bleeding, plt < 10 K/cumm} us Jefferson Horvath MD BLOOD BANK PRODUCT ORDERABLE S Final Result Performing Organization Address [facility]/ZIP Co de Phone Number [facility] [place] [address] * (ABNORMAL) Immature platelet fraction (11/27/2024 12:25 AM CDT) [facility] IPF 1.4(L) 1.6 - 10.1 % Blood 11/27/2024 12:2 5 AM CDT 11/27/2024 12:49 AM CDT Vicente Mandujano MD LAB BLOOD OR DERABLES Final Result [facility] [place] [address] * eGFR (11/27/2024 12:25 AM CDT) [facility] eGFR >90 >=60 mL/min/1. 73 m2 [...] MD LAB BLOOD OR DERABLES Final Result [facility] [place] [address] * (ABNORMAL) Manual Differential (11/27/2024 12:25 AM CDT) Differential Manual Cells Counted 6 [facility] Neutrophil pct 50.0 % [facility] Comment: Interpretive Data Percent cell count reference ranges are not reported, since discordance with absolute values may lead to misinterpretation of CBC data. Current Interpretive Data was last revised on 2017. Lymphocyte pct 50.0 % [facility] Comment: Interpretive Data Percent cell count reference ranges are not reported, since discordance with absolute values may lead to misinterpretation of CBC data. Current Interpretive Data was last revised on 2017. RBC morphology Present(A) [facility] Anisocytosis Moderate(A ) [facility] Microcytes 8-15/HPF(A ) [facility] Platelet estimate Decreased( A) [facility] Blood 11/27/2024 12:2 5 AM CDT 11/27/2024 12:45 AM CDT Vicente Mandujano MD LAB BLOOD OR DERABLES Edited Result - Final [facility] [place] [address] * (ABNORMAL) CBC without differential (11/27/2024 12:25 AM CDT) WBC 0.0(C) 3.8 - 9.9 K/cumm Comment:Consistent with prev ious reported value Hgb 8.1(L) 11.9 - 15.5 g/dL [facility] Hct 22.0(L) 35.6 - 45.5 % [facility] Plt 5(C) 150 - 400 K/cumm [facility] Comment:Carroll Francisco RN. Cri tical result called to and read back by CARROLL FRANCISCO RN on 11 27 2024 at 0136 to Mark Desir. MPV 10.7 9.1 - 12.3 fL [facility] RBC 2.68(L) 3.90 - 5.20 M/cumm [facility] MCV 82.1 81.3 - 96.4 fL [facility] MCH 30.2 27.1 - 33.3 pg [facility] MCHC 36.8(H) 32.3 - 35.7 g/dL [facility] RDW CV 14.8 11.1 - 14.9 % [facility] RDW SD 44.6 35.7 - 48.1 fL [facility] NRBC abs 0.00 0.00 - 0.01 K/cumm [facility] Blood 11/27/2024 12:2 5 AM CDT 11/27/2024 12:45 AM CDT Vicente Mandujano MD LAB BLOOD OR DERABLES Final Result [facility] [place] [address] * (ABNORMAL) Phosphorus (11/27/2024 12:25 AM CDT) [facility] Phosphorus, pl 1.6(L) 2.3 - 4.5 mg/dL Blood 11/27/2024 12:2 5 AM CDT 11/27/2024 12:45 AM CDT Vicente Mandujano MD LAB BLOOD OR DERABLES Final Result Performing Organization Address City/[facility]/ZIP Co de Phone Number [facility] [place] [address] * Magnesium (11/27/2024 12:25 AM CDT) [facility] Magnesium 1.4 1.4 - 2.5 mg/dL Blood 11/27/2024 12:2 5 AM CDT 11/27/2024 12:45 AM CDT Katie Hunter MD PhD LAB BLOOD ORDERABLES F inal Result Performing Organization Address [facility] de Phone Number [facility] [place] [address] * (ABNORMAL) Basic metabolic panel (11/27/2024 12:25 AM CDT) [facility] Sodium 134(L) 135 - 145 mmol/L Potassium, pl 3.5 3.3 - 4.9 mmol/L [facility] Chloride 99 97 - 110 mmol/L [facility] CO2 24 22 - 32 mmol/L [facility] Anion gap 11 2 - 15 mmol/L [facility] BUN 7 6 - 25 mg/dL [facility] Creatinine 0.60 0.60 - 1.10 mg/dL [facility] Glucose 135 70 - 199 mg/dL [facility] Comment: Interpretive Data Fasting glucose >/= 126 [...] 2022. Calcium 8.8 8.5 - 10.3 mg/dL [facility] Blood 11/27/2024 12:2 5 AM CDT 11/27/2024 12:45 AM CDT Narrative [facility] - 11/27/2024 1:32 AM CDT Daily except Saturday and . Morning draw. us Vicente Mandujano MD LAB BLOOD OR DERABLES Final Result Performing Organization Address City/[facility] Co de Phone Number [facility] [place] [address] * Histoplasma Antigen Urine (11/26/2024 5:12 PM CDT) Histo Ag Ur result None Detected None Detected Histo Ag Ur interp Negative Negative [facility] Comment: Result Interpretation: Reference interval: None Detected Results reported as ng/mL in 0.20 - 20.00 ng/mL range Results above 20.00 ng/mL are reported as 'Positive, Above the Limit of Quantification' Testing Performed by: [employer], [address] [place] [address] [place] [facility]. This test was developed and its performance characteristics determined by [employer]. It has not been cleared or approved by the FDA; however, FDA clearance or approval is not currently required for clinical use. The results are not intended to be used as the sole means for clinical diagnosis or patient management decisions. Interpretative data updated 10/31/2020 Urine 11/26/2024 5:12 PM CDT 11/26/2024 6:38 PM CDT us Jefferson Horvath MD LAB MICROBIOLOGY - GENERAL O RDERABLES Final Result Performing Organization Address City/[facility]/ZIP Co de Phone Number CERNER [facility] [place] [address] * Histoplasma Antibody Blood (11/26/2024 5:12 PM CDT) [facility] Histoplasma Ab, yeast CF Negative Negative [place] [facility] Histoplasma Ab, Immunodiffusion Negative Negative [facility] Comment: A negative complement fixation and immunodiffusion (CF/ID) result does not exclude the diagnosis of histoplasmosis. Repeat testing by CF/ID in 1-2 weeks if clinically indicated. Test Performed by: [facility] [address] [id number] Restaurant Worker: Jesus Fontenot Ph.D.; CLIA# [id number] Blood 11/26/2024 5:12 PM CDT 11/26/2024 8:05 PM CDT Jefferson Horvath MD LAB MICROBIOLOGY - GENERAL O RDERABLES Final Result Performing Organization Address City/[facility]/ZIP Co de Phone Number [facility] [place] [place] [address] [facility] * Lactate (11/26/2024 5:12 PM CDT) [facility] Lactate 2.0 0.7 - 2.0 mmol/L Blood 11/26/2024 5:12 PM CDT 11/26/2024 5:32 PM CDT Jefferson Horvath MD LAB BLOOD ORDERABLES [place] [address] * Cryptococcal Antigen, Serum Blood (11/26/2024 5:12 PM CDT) [facility] Cryptococcus ag, Serum Negative Negative Comment: The cryptococcal antigen test was performed using the IMMY CrAg Lateral Flow Assay. This assay is [...] O RDERABLES Final Result Performing Organization Address [facility] Co de Phone Number DAVID [facility] [place] [address] * Aspergillus galactomannan antigen Blood (11/26/2024 5:12 PM CDT) Aspergillus galactomannan Ag <0.500 <0.5 Index [facility] Comment: ADDITIONAL INFORMATION This is a qualitative test and the resulted index value is not indicative of disease severity. Serial testing is recommended for patients at high risk for invasive aspergillosis. This assay was performed using the FDA-cleared Bio-[employer] Aspergillus Galactomannan EIA. Test Performed by: [place] [address] Restaurant Worker: Jesus Fontenot Ph.D.; CLIA# [id number] Blood 11/26/2024 5:12 PM CDT 11/26/2024 6:56 PM CDT Jefferson Horvath MD LAB MICROBIOLOGY - GENERAL O RDERABLES Final Result Performing Organization Address [facility]/ZIP Co de Phone Number [facility] [place] [address] [place] [facility] * Blood culture Blood Peripheral (11/26/2024 5:12 PM CDT) Report Final Report: No growth Blood (Peripheral) 11/26/2024 5:12 PM CDT 11/26/2024 5:26 PM CDT Dolores GARCÍA - 12/01/2024 7:00 AM CDT Collection->Peripheral [...] performance characteristics have been verified by the [facility] Microbiology Laboratory. For questions about this culture, contact the Microbiology Laboratory at [phone]. Interpretive data was last revised on 24. Vicente Mandujano MD LAB MICROBIOLOGY - GENERAL ORDERABLES Final Result [facility]ID [facility] [place] [address] * ECG 12 lead (11/26/2024 3:53 PM CDT) Ventricular Rate EKG/Min 101 BPM [facility] Atrial Rate 101 BPM [facility] GA-Interval (MSEC) 132 ms [facility] QRS-Interval (MSEC) 84 ms [facility] QT-Interval (MSEC) 344 ms [facility] QTc 446 ms [facility] P [place] 31 degrees [facility] R [place] 63 degrees [facility] T [place] 62 degrees [facility] Diagnosis Sinus tachycardia Otherwise normal ECG When compared with ECG of 25-NOV-2024 09:05, No significant change was found Confirmed by Miguel May MD ([id number]) on 11/27/2024 1:27:15 PM [facility] 11/26/2024 3:53 PM CDT 11/27/2024 1:27 PM CDT us Jefferson Horvath MD ECG ORDERABLES Final Result [facility] * (ABNORMAL) Immature platelet fraction (11/26/2024 12:26 AM CDT) IPF 1.4(L) 1.6 - 10.1 % Blood 11/26/2024 12:2 6 AM CDT 11/26/2024 1:16 AM CDT Vicente Mandujano MD LAB BLOOD OR DERABLES Final Result [facility] [place] [address] * eGFR (11/26/2024 12:26 AM CDT) eGFR [...] of Race in Diagnosing Kidney Disease, JASN 2021). The CKD-EPI equation should not be used for patients with unstable renal function and has not been validated in children and those over 70. Current interpretive data was last reviewed 2021. Blood 11/26/2024 12:2 6 AM CDT 11/26/2024 1:05 AM CDT Vicente Mandujano MD LAB BLOOD OR DERABLES Final Result Performing Organization Address City/[facility]/ZIP Co de Phone Number [facility] Department [place] [employer] [place] [address] * (ABNORMAL) Manual Differential (11/26/2024 12:26 AM CDT) Differential Manual Cells Counted 7 [facility] Neutrophil pct 0.0 % [facility] Comment: Interpretive Data Percent cell count reference ranges are not reported, since discordance with absolute values may lead to misinterpretation of CBC data. Current Interpretive Data was last revised on 2017. Lymphocyte pct 100.0 % [facility] Comment: Interpretive Data Percent cell count reference ranges are not reported, since discordance with absolute values may lead to misinterpretation of CBC data. Current Interpretive Data was last revised on 2017. RBC morphology Present(A) [facility] Anisocytosis Slight(A) [facility] Poikilocytosis Slight(A) [facility] Microcytes 3-7/HPF(A) [facility] Elliptocytes 3-7/HPF(A) [facility] Platelet estimate Decreased( A) [facility] Blood 11/26/2024 12:2 6 AM CDT 11/26/2024 1:06 AM CDT Vicente Mandujano MD LAB BLOOD OR DERABLES Edited Result - Final Performing Organization Address [facility]/ZIP Co de Phone Number [facility] [place] [address] * (ABNORMAL) CBC without differential (11/26/2024 12:26 AM CDT) WBC 0.0(C) 3.8 - 9.9 K/cumm Comment:Consistent with prev ious reported value Hgb 9.3(L) 11.9 - 15.5 g/dL [facility] Hct 25.5(L) 35.6 - 45.5 % [facility] Plt 12(C) 150 - 400 K/cumm [facility] Comment:No clot detected in sample. Platelet count confirmed by additional testing. Critical platelet count threshold determined by patient location: Outpatient:<50 K-cumm , Inpatient:<20 K-cumm , BMT service:<10 K-cumm MPV 13.0(H) 9.1 - 12.3 fL [facility] RBC 3.04(L) 3.90 - 5.20 M/cumm [facility] MCV 83.9 81.3 - 96.4 fL [facility] MCH 30.6 27.1 - 33.3 pg [facility] MCHC 36.5(H) 32.3 - 35.7 g/dL [facility] RDW CV 15.3(H) 11.1 - 14.9 % [facility] RDW SD 46.9 35.7 - 48.1 fL [facility] NRBC abs 0.00 0.00 - 0.01 K/cumm [facility] Blood 11/26/2024 12:2 6 AM CDT 11/26/2024 1:06 AM CDT Vicente Mandujano MD LAB BLOOD OR DERABLES Final Result [facility] [place] [address] * Type and screen (11/26/2024 12:26 AM CDT) Pathologist [facility] Bing, indirect Negative ABO Rh A Positive [facility] Blood 11/26/2024 12:2 6 AM CDT 11/26/2024 1:13 AM CDT Narrative [facility] - 11/26/2024 2:21 AM CDT Has the patient had Daratumumab or Isatuximab in the past 6 months?->Unknown Vicente Mandujano MD LAB BLOOD BA NK TEST ORDERABLES Final Result Performing Organization Address City/[facility] Co de Phone Number [facility] [employer] [place] [address] * (ABNORMAL) Uric acid (11/26/2024 12:26 AM CDT) Pathologist [facility] Uric acid 1.5(L) 2.5 - 7.0 mg/dL Blood 11/26/2024 12:2 6 AM CDT 11/26/2024 1:05 AM CDT Narrative [facility] 11/26/2024 1:42 AM CDT Saturday and only. Morning draw. . Vicente Mandujano MD LAB BLOOD OR DERABLES Final Result Performing Organization Address [facility] Co de Phone Number [facility] [employer] [place] [address] * Phosphorus (11/26/2024 12:26 AM CDT) Pathologist [facility] Phosphorus, pl 2.9 2.3 - 4.5 mg/dL Blood 11/26/2024 12:2 6 AM CDT 11/26/2024 1:05 AM CDT Vicente Mandujano MD LAB BLOOD OR DERABLES Final Result Performing Organization Address City/[facility]/ZIP Co de Phone Number [facility] [employer] [place] [address] * (ABNORMAL) Comprehensive metabolic panel (11/26/2024 12:26 AM CDT) Sodium 133(L) 135 - 145 mmol/L Potassium, pl 4.6 3.3 - 4.9 mmol/L [facility] Comment:Hemolyzed; Potassium value may be falsely elevated by as much as 0.6-1.0 mmol/L. Suggest redraw and reanalysis. Chloride 98 97 - 110 mmol/L [facility] CO2 26 22 - 32 mmol/L [facility] Anion gap 9 2 - 15 mmol/L [facility] BUN 8 6 - 25 mg/dL [facility] Creatinine 0.69 0.60 - 1.10 mg/dL [facility] Glucose 113 70 - 199 mg/dL [facility] Comment: Interpretive Data Fasting glucose >/= 126 [...] 2022. Calcium 9.3 8.5 - 10.3 mg/dL [facility] Bilirubin, total 0.8 0.1 - 1.2 mg/dL [facility] Protein, pl 7.3 6.5 - 8.5 g/dL [facility] Albumin 3.4(L) 3.5 - 5.0 g/dL [facility] Alk phos 122 40 - 130 Units/L [facility] ALT 24 7 - 45 Units/L [facility] AST 42 10 - 45 Units/L [facility] Comment:Hemolyzed; result ma y be falsely elevated Blood 11/26/2024 12:2 6 AM CDT 11/26/2024 1:05 AM CDT Narrative [facility] - 11/26/2024 1:42 AM CDT Saturday and only. Morning draw. Vicente Mandujano MD LAB BLOOD OR DERABLES Final Result [facility] [place] [address] * (ABNORMAL) Urinalysis reflex to microscopic and culture Urine (11/25/2024 6:52 PM CDT) Color, ur Yellow Yellow Clarity, ur Cloudy(A) Clear [facility] Specific gravity, ur 1.025 1.003 - 1.030 [facility] pH, urine 7.5 [facility] Comment: Interpretive Data U rine pH is affected by diet, medications, systemic acid-base disturbances, and renal tubular function. pH may affect urinary stone formation. For example, urine pH below 6.0 may help reduce the tendency for calcium phosphate stones and pH greater than 6.0 may reduce the tendency for uric acid stone formation. Source: [facility] Current Interpretive Data was last revised on 2017 Protein, ur ql 1+(A) Negative [facility] Glucose, ur ql Negative Negative [facility] Ketones, ur Negative Negative [facility] Bilirubin, ur Negative Negative [facility] Blood, ur 2+(A) Negative [facility] Urobilinogen, ur <2.0 <2.0 mg/dL [facility] Nitrite, ur Negative Negative [facility] Leukocyte esterase, ur Negative Negative [facility] UA reflex comment Reflex to microscopic UA will be performed. [facility] Urine 11/25/2024 6:52 PM CDT 11/25/2024 6:58 PM CDT us Cheo Boudreaux MD LAB MICROBIOLOGY - GENERAL ORD ERABLES Final Result DAVID GARCÍA [facility] [place] [address] * (ABNORMAL) Urinalysis, microscopic only (11/25/2024 6:52 PM CDT) WBC, ur 0-5 0 - 5 /HPF RBC, ur 21-50(A) 0 - 2 /HPF [facility] Epithelial cells, squamous, ur 1-5 0 - 5 /HPF [facility] Mucous, ur Present(A) [facility] Amorphous crystals, ur 1+(A) [facility] Culture Reflex Comment Reflex to urine culture will be performed. [facility] Urine 11/25/2024 6:52 PM CDT 11/25/2024 6:58 PM CDT Cheo Boudreaux MD LAB URINE ORDERABLES Final Res ult Performing Organization Address [facility] Co de Phone Number [facility] [place] [address] * Urine culture Urine (11/25/2024 6:52 PM CDT) Report Final Report: No growth Urine 11/25/2024 6:52 PM CDT 11/25/2024 7:55 PM CDT Narrative [facility] - 11/26/2024 9:28 PM CDT Urine culture reflexed based upon urinalysis results. Testing performed by [facility] Microbiology Laboratory ([phone]) Cheo Boudreaux MD LAB MICROBIOLOGY - GENERAL ORD ERABLES Final Result Performing Organization Address [facility] de Phone Number [facility] [place] [address] * XR Chest 1 View (11/25/2024 5:48 [...] pathogen panel Nasopharyngeal (11/25/2024 5:41 PM CDT) Pathologist [facility] Influenza A RNA Not Detected Not Detected Influenza B RNA Not Detected Not Detected [facility] RSV RNA Not Detected Not Detected [facility] COVID-19 RNA Not Detected Not Detected [facility] Coronavirus 229E RNA Not Detected Not Detected [facility] Coronavirus HKU1 RNA Not Detected Not Detected [facility] Coronavirus NL63 RNA Not Detected Not Detected [facility] Coronavirus OC43 RNA Not Detected Not Detected [facility] Adenovirus DNA Not Detected Not Detected [facility] Metapneumovirus RNA Not Detected Not Detected [facility] Rhinovirus/Enterov irus RNA Not Detected Not Detected [facility] Parainfluenza 1 RNA Not Detected Not Detected [facility] Parainfluenza 2 RNA Not Detected Not Detected [facility] Parainfluenza 3 RNA Not Detected Not Detected [facility] Parainfluenza 4 RNA Not Detected Not Detected [facility] B. pertussis DNA Not Detected Not Detected [facility] B. parapertussis DNA Not Detected Not Detected [facility] C. pneumoniae DNA Not Detected Not Detected [facility] M. pneumoniae DNA Not Detected Not Detected [facility] Nasopharyngeal 11/25/2024 5: 41 PM CDT 11/25/2024 5:55 PM CDT Narrative [facility] - 11/25/2024 7:02 PM CDT Is the Patient experiencing symptoms consistent with COVID?->No Surveillance testing for transplant patient?->No Interpretive Data The Intcomex FilmArray Respiratory Panel (RP2.1) assay is a [...] assay has FDA clearance for testing of LACE WINDER swabs. The performance of additional specimen types has been assessed by the performing laboratory. The performance characteristics of this assay have been determined by [facility] Molecular Infectious Disease Laboratory. Current interpretive data was last revised on 22. us Cheo Boudreaux MD LAB MICROBIOLOGY - GENERAL ORD ERABLES Final Result [facility] [place] [address] * Blood culture Blood (11/25/2024 5:41 PM CDT) Report Final Report: No growth Blood 11/25/2024 5:41 PM CDT 11/25/2024 5:53 PM CDT Dolores GARCÍA - 11/30/2024 7:00 AM CDT From a [...] performance characteristics have been verified by the [facility] Microbiology Laboratory. For questions about this culture, contact the Microbiology Laboratory at [phone]. Interpretive data was last revised on 24. us Jefferson Horvath MD LAB MICROBIOLOGY - GENERAL O RDERABLES Final Result DAVID GARCÍA [facility] [place] [address] * Lactate (11/25/2024 5:32 PM CDT) Lactate 1.3 0.7 - 2.0 mmol/L Blood 11/25/2024 5:32 PM CDT 11/25/2024 6:10 PM CDT us Cheo Boudreaux MD LAB BLOOD ORDERABLES Final Res ult Performing Organization Address [facility]/ZIP Co de Phone Number [facility] [place] [address] * Blood culture Blood (11/25/2024 5:32 PM CDT) Report Final Report: No growth Blood 11/25/2024 5:32 PM CDT 11/25/2024 5:53 PM CDT Narrative [facility] - 11/30/2024 7:00 AM CDT Collection->Peripheral 1. [...] performance characteristics have been verified by the [facility] Microbiology Laboratory. For questions about this culture, contact the Microbiology Laboratory at [phone]. Interpretive data was last revised on 24. us Jefferson Horvath MD LAB MICROBIOLOGY - GENERAL O RDERABLES Final Result Performing Organization Address [facility] Co de Phone Number [facility] [place] [address] * Creatine kinase (CK), total (11/25/2024 5:32 PM CDT) [facility] CK 49 30 - 200 Units/L Blood 11/25/2024 5:32 PM CDT 11/25/2024 6:11 PM CDT us Cheo Boudreaux MD LAB BLOOD ORDERABLES Final Res ult [facility] [place] [address] * ECG 12 lead (11/25/2024 9:05 AM CDT) [facility] Ventricular Rate EKG/Min 95 BPM [facility] Atrial Rate 95 BPM [facility] GA-Interval (MSEC) 144 ms [facility] QRS-Interval (MSEC) 82 ms [facility] QT-Interval (MSEC) 370 ms [facility] QTc 464 ms [facility] P [place] 78 degrees [facility] R [place] 53 degrees [facility] T [place] 43 degrees [facility] Diagnosis Normal sinus rhythm Normal ECG When compared with ECG of 24-NOV-2024 09:40, No significant change was found Confirmed by ASH SALGUERO M.D ([id number]) on 11/26/2024 2:40:28 PM [facility] 11/25/2024 9:05 AM CDT 11/26/2024 2:40 PM CDT us Jefferson Horvath MD ECG ORDERABLES Final Result [facility] * Transfuse RBC (11/25/2024 6:20 AM CDT) Blood Jefferson Horvath MD BLOOD TRANSFUSION ORDERABLES Edited Result - Final [facility] [place] [address] * (ABNORMAL) Immature platelet fraction (11/25/2024 12:53 AM CDT) Pathologist [facility] IPF 0.8(L) 1.6 - 10.1 % Blood 11/25/2024 12:5 3 AM CDT 11/25/2024 1:10 AM CDT Vicente Mandujano MD LAB BLOOD OR DERABLES Final Result [facility] [place] [address] * eGFR (11/25/2024 12:53 AM CDT) [facility] eGFR >90 >=60 mL/min/1. 73 m2 [...] MD LAB BLOOD OR DERABLES Final Result [facility] [place] [address] * (ABNORMAL) Manual Differential (11/25/2024 12:53 AM CDT) [facility] Differential Manual Cells Counted 7 [facility] Neutrophil pct 0.0 % [facility] Comment: Interpretive Data Percent cell count reference ranges are not reported, since discordance with absolute values may lead to misinterpretation of CBC data. Current Interpretive Data was last revised on 2017. Lymphocyte pct 100.0 % [facility] Comment: Interpretive Data Percent cell count reference ranges are not reported, since discordance with absolute values may lead to misinterpretation of CBC data. Current Interpretive Data was last revised on 2017. RBC morphology Present(A) [facility] Anisocytosis Slight(A) [facility] Microcytes 3-7/HPF(A) [facility] Platelet estimate Decreased( A) [facility] Blood 11/25/2024 12:5 3 AM CDT 11/25/2024 1:07 AM CDT Vicente Mandujano MD LAB BLOOD OR DERABLES Edited Result - Final [facility] [place] [address] * (ABNORMAL) CBC without differential (11/25/2024 12:53 AM CDT) [facility] WBC 0.0(C) 3.8 - 9.9 K/cumm Comment:Consistent with prev ious reported value Hgb 7.6(L) 11.9 - 15.5 g/dL [facility] Hct 20.8(L) 35.6 - 45.5 % [facility] Plt 24(L) 150 - 400 K/cumm [facility] Comment:Platelet count confi rmed by additional testing. Critical platelet count threshold determined by patient location: Outpatient:<50 K-cumm , Inpatient:<20 K-cumm , BMT service:<10 K-cumm MPV 9.9 9.1 - 12.3 fL [facility] RBC 2.45(L) 3.90 - 5.20 M/cumm [facility] MCV 84.9 81.3 - 96.4 fL [facility] MCH 31.0 27.1 - 33.3 pg [facility] MCHC 36.5(H) 32.3 - 35.7 g/dL [facility] RDW CV 14.8 11.1 - 14.9 % [facility] RDW SD 46.4 35.7 - 48.1 fL [facility] NRBC abs 0.00 0.00 - 0.01 K/cumm [facility] Blood 11/25/2024 12:5 3 AM CDT 11/25/2024 1:07 AM CDT Vicente Mandujano MD LAB BLOOD OR DERABLES Final Result Performing Organization Address City/[facility]/ZIP Co de Phone Number [facility] [place] [address] * Phosphorus (11/25/2024 12:53 AM CDT) Pathologist [facility] Phosphorus, pl 3.4 2.3 - 4.5 mg/dL Blood 11/25/2024 12:5 3 AM CDT 11/25/2024 1:07 AM CDT Vicente Mandujano MD LAB BLOOD OR DERABLES Final Result [facility] Department [place] [employer] [place] [address] * Magnesium (11/25/2024 12:53 AM CDT) Pathologist [facility] Magnesium 1.9 1.4 - 2.5 mg/dL Blood 11/25/2024 12:5 3 AM CDT 11/25/2024 1:07 AM CDT Vicente Mandujano MD LAB BLOOD OR DERABLES Final Result [facility] [place] [address] * Basic metabolic panel (11/25/2024 12:53 AM CDT) Sodium 136 135 - 145 mmol/L Potassium, pl 4.1 3.3 - 4.9 mmol/L [facility] Chloride 100 97 - 110 mmol/L [facility] CO2 26 22 - 32 mmol/L [facility] Anion gap 10 2 - 15 mmol/L [facility] BUN 9 6 - 25 mg/dL [facility] Creatinine 0.70 0.60 - 1.10 mg/dL [facility] Glucose 109 70 - 199 mg/dL [facility] Comment: Interpretive Data Fasting glucose >/= 126 [...] 2022. Calcium 9.0 8.5 - 10.3 mg/dL [facility] Blood 11/25/2024 12:5 3 AM CDT 11/25/2024 1:07 AM CDT Narrative [facility] - 11/25/2024 1:36 AM CDT Daily except Saturday and . Morning draw. Vicente Mandujano MD LAB BLOOD OR DERABLES Final Result [facility] [place] [address] * ECG 12 lead (11/24/2024 9:40 AM CDT) Ventricular Rate EKG/Min 88 BPM [facility] Atrial Rate 88 BPM [facility] GA-Interval (MSEC) 138 ms [facility] QRS-Interval (MSEC) 80 ms [facility] QT-Interval (MSEC) 380 ms [facility] QTc 459 ms [facility] P [place] 70 degrees [facility] R [place] 51 degrees [facility] T [place] 45 degrees [facility] Diagnosis Normal sinus rhythm Normal ECG When compared with ECG of 23-NOV-2024 09:22, Premature ventricular complexes are no longer Present Confirmed by JANELLE ARREAGA M.D ([id number]) on 11/25/2024 9:24:16 AM [facility] 11/24/2024 9:40 AM CDT 11/25/2024 9:24 AM CDT Jefferson Horvath MD ECG ORDERABLES Final Result [facility] * Transfuse platelets (11/24/2024 5:25 AM CDT) Jefferson Horvath MD BLOOD TRANSFUSION ORDERABLES Final Result [facility] [place] [address] * Prepare platelets: 1 Units (11/24/2024 1:14 AM CDT) Pathologist [facility] Product code [id number] Unit Number [id number] [facility] Product Blood Type ANEG [facility] Dispense Status PRESUMED TRANSFUSED [facility] Blood Venous blood specimen / Unknown 11/24/2024 1:14 AM CDT 11/24/2024 1:13 AM CDT Narrative [facility] - 11/24/2024 4:01 PM CDT Are special requirements needed? (all products are leukoreduced)->Yes Date required:-[id number] Special Req 1:-Irradiated PLT # of Units:-1-Units Reasons:-Stable, non-bleeding, plt < 10 K/cumm} Jefferson Horvath MD BLOOD BANK PRODUCT ORDERABLE S Final Result [facility] [place] [place] [address] * Prepare RBC: 1 Units (11/24/2024 1:14 AM CDT) [facility] Product code [id number] Unit Number [id number] J [facility] Product Blood Type APOS [facility] Dispense Status PRESUMED TRANSFUSED [facility] Blood Venous blood specimen / Unknown 11/24/2024 1:14 AM CDT 11/24/2024 1:13 AM CDT Narrative [facility] - 11/25/2024 4:01 PM CDT Are special requirements needed? (All products are leukoreduced and CMV- safe)- >Yes Date required:-[id number] Special Req 1:-Irradiated LRRBC # of [id number] Reasons:-BMT, Hgb <8 g/dL} Jefferson Horvath MD BLOOD BANK PRODUCT ORDERABLE S Final Result Performing Organization Address [facility]/ZIP Co de Phone Number [facility] [place] [address] * (ABNORMAL) Immature platelet fraction (11/24/2024 12:27 AM CDT) [facility] IPF 0.8(L) 1.6 - 10.1 % Blood 11/24/2024 12:2 7 AM CDT 11/24/2024 12:46 AM CDT Vicente Mandujano MD LAB BLOOD OR DERABLES Final Result Performing Organization Address City/[facility]/ZIP Co de Phone Number [facility] [place] [address] * eGFR (11/24/2024 12:27 AM CDT) Pathologist [facility] eGFR 88 >=60 mL/min/1. 73 m2 Comment: [...] MD LAB BLOOD OR DERABLES Final Result [facility] [place] [address] * (ABNORMAL) Manual Differential (11/24/2024 12:27 AM CDT) [facility] Differential Manual Cells Counted 19 [facility] Neutrophil abs 0.0(L) 1.5 - 6.5 K/cumm [facility] Comment:BMT patient, result not critical Imm gran abs 0.0 0.0 - 0.1 K/cumm [facility] Lymphocyte abs 0.1(L) 0.8 - 3.3 K/cumm [facility] Monocyte abs 0.0(L) 0.2 - 0.8 K/cumm [facility] Neutrophil pct 0.0 % [facility] Comment: Interpretive Data Percent cell count reference ranges are not reported, since discordance with absolute values may lead to misinterpretation of CBC data. Current Interpretive Data was last revised on 2017. Lymphocyte pct 100.0 % [facility] Comment: Interpretive Data Percent cell count reference ranges are not reported, since discordance with absolute values may lead to misinterpretation of CBC data. Current Interpretive Data was last revised on 2017. RBC morphology Present(A) [facility] Anisocytosis Slight(A) [facility] Microcytes 3-7/HPF(A) [facility] Platelet estimate Decreased( A) [facility] Blood 11/24/2024 12:2 7 AM CDT 11/24/2024 12:43 AM CDT Vicente Mandujano MD LAB BLOOD OR DERABLES Edited Result - Final [facility] [place] [address] * (ABNORMAL) CBC without differential (11/24/2024 12:27 AM CDT) WBC 0.1(C) 3.8 - 9.9 K/cumm Comment:Consistent with prev ious reported value Hgb 8.0(L) 11.9 - 15.5 g/dL [facility] Hct 22.5(L) 35.6 - 45.5 % [facility] Plt 7(C) 150 - 400 K/cumm [facility] Comment:Critical result call ed to and read back by NUZHAT ASHRAF RN on 11 24 2024 at 0113 to Clotilde Caruso. MPV 9.3 9.1 - 12.3 fL [facility] RBC 2.60(L) 3.90 - 5.20 M/cumm [facility] MCV 86.5 81.3 - 96.4 fL [facility] MCH 30.8 27.1 - 33.3 pg [facility] MCHC 35.6 32.3 - 35.7 g/dL [facility] RDW CV 15.1(H) 11.1 - 14.9 % [facility] RDW SD 48.3(H) 35.7 - 48.1 fL [facility] NRBC abs 0.00 0.00 - 0.01 K/cumm [facility] Blood 11/24/2024 12:2 7 AM CDT 11/24/2024 12:43 AM CDT Vicente Mandujano MD LAB BLOOD OR DERABLES Final Result Performing Organization Address City/[facility] Co de Phone Number [facility] [place] [address] * Phosphorus (11/24/2024 12:27 AM CDT) Phosphorus, pl 3.4 2.3 - 4.5 mg/dL Blood 11/24/2024 12:2 7 AM CDT 11/24/2024 12:43 AM CDT Vicente Mandujano MD LAB BLOOD OR DERABLES Final Result Performing Organization Address [facility] de Phone Number [facility] [place] [employer] [place] [address] * Magnesium (11/24/2024 12:27 AM CDT) Magnesium 1.9 1.4 - 2.5 mg/dL Blood 11/24/2024 12:2 7 AM CDT 11/24/2024 12:43 AM CDT Vicente Mandujano MD LAB BLOOD OR DERABLES Final Result Performing Organization Address City/[facility] de Phone Number [facility] [employer] [place] [address] * Basic metabolic panel (11/24/2024 12:27 AM CDT) Sodium 139 135 - 145 mmol/L Potassium, pl 4.3 3.3 - 4.9 mmol/L [facility] Chloride 104 97 - 110 mmol/L [facility] CO2 26 22 - 32 mmol/L [facility] Anion gap 9 2 - 15 mmol/L [facility] BUN 10 6 - 25 mg/dL [facility] Creatinine 0.77 0.60 - 1.10 mg/dL [facility] Glucose 99 70 - 199 mg/dL [facility] Comment: Interpretive Data Fasting glucose >/= 126 [...] 2022. Calcium 9.3 8.5 - 10.3 mg/dL [facility] Blood 11/24/2024 12:2 7 AM CDT 11/24/2024 12:43 AM CDT Narrative [facility] - 11/24/2024 1:13 AM CDT Daily except Saturday and . Morning draw. Vicente Mandujano MD LAB BLOOD OR DERABLES Final Result Performing Organization Address City/State/[facility] Co de Phone Number [facility] [place] [address] * ECG 12 lead (11/23/2024 9:22 AM CDT) Pathologist [facility] Ventricular Rate EKG/Min 91 BPM [facility] Atrial Rate 91 BPM [facility] GA-Interval (MSEC) 140 ms [facility] QRS-Interval (MSEC) 80 ms [facility] QT-Interval (MSEC) 386 ms [facility] QTc 474 ms [facility] P [place] 73 degrees [facility] R [place] 51 degrees [facility] T [place] 53 degrees [facility] Diagnosis Sinus rhythm with occasional Premature ventricular complexes Otherwise normal ECG When compared with ECG of 19-NOV-2024 16:18, Premature ventricular complexes are now Present Confirmed by JANELLE ARREAGA M.D ([id number]) on 11/24/2024 10:10:52 AM [facility] [employer] 11/23/2024 9:22 AM CDT 11/24/2024 10:10 AM CDT Vicente Mandujano MD ECG ORDERABL ES Final Result [facility] [employer] * (ABNORMAL) Immature platelet fraction (11/23/2024 12:36 AM CDT) IPF 0.8(L) 1.6 - 10.1 % Blood 11/23/2024 12:3 6 AM CDT 11/23/2024 1:50 AM CDT Vicente Mandujano MD LAB BLOOD OR DERABLES Final Result [facility] [place] [address] * eGFR (11/23/2024 12:36 AM CDT) eGFR >90 >=60 mL/min/1. 73 [...] OR DERABLES Final Result Performing Organization Address City/[facility]/ZIP Co de Phone Number [facility] [place] [address] * (ABNORMAL) Manual Differential (11/23/2024 12:36 AM CDT) Differential Manual Cells Counted 12 [facility] Neutrophil abs 0.0(L) 1.5 - 6.5 K/cumm [facility] Comment:BMT patient, result not critical Imm gran abs 0.0 0.0 - 0.1 K/cumm [facility] Lymphocyte abs 0.1(L) 0.8 - 3.3 K/cumm [facility] Monocyte abs 0.0(L) 0.2 - 0.8 K/cumm [facility] Neutrophil pct 0.0 % [facility] Comment: Interpretive Data Percent cell count reference ranges are not reported, since discordance with absolute values may lead to misinterpretation of CBC data. Current Interpretive Data was last revised on 2017. Lymphocyte pct 100.0 % [facility] Comment: Interpretive Data Percent cell count reference ranges are not reported, since discordance with absolute values may lead to misinterpretation of CBC data. Current Interpretive Data was last revised on 2017. RBC morphology Normal [facility] Platelet estimate Decreased( A) [facility] Blood 11/23/2024 12:3 6 AM CDT 11/23/2024 1:46 AM CDT Vicente Mandujano MD LAB BLOOD OR DERABLES Final Result Performing Organization Address City/[facility]/ZIP Co de Phone Number [facility] [employer] [place] [address] * aPTT (11/23/2024 12:36 AM CDT) aPTT [...] OR DERABLES Final Result Performing Organization Address [facility] [place] [address] * Protime-INR (11/23/2024 12:36 AM CDT) Pathologist [facility] PT 12.7 9.7 - 13.0 sec INR 1.17 0.90 - 1.20 [facility] Comment: Interpretive data Oral anticoagulant therapeutic ranges: Venous thromboembolism prophylaxis or treatment: 2.0-3.0 CARDIOLOGY Standard range: 2.0-3.0 High-intensity range: 2.5-3.5 Refer to indication-specific guidelines for appropriate target ranges for prosthetic heart valve replacement. Current interpretive data was last revised on 2019. Blood 11/23/2024 12:3 6 AM CDT 11/23/2024 1:39 AM CDT Vicente Mandujano MD LAB BLOOD OR DERABLES Final Result Performing Organization Address [facility] [place] [address] * (ABNORMAL) CBC without differential (11/23/2024 12:36 AM CDT) Pathologist [facility] WBC 0.1(C) 3.8 - 9.9 K/cumm Comment:Consistent with prev ious reported value Hgb 8.1(L) 11.9 - 15.5 g/dL [facility] Hct 22.8(L) 35.6 - 45.5 % [facility] Plt 12(C) 150 - 400 K/cumm [facility] Comment:Platelet count confi rmed by additional testing. Critical platelet count threshold determined by patient location: Outpatient:<50 K-cumm , Inpatient:<20 K-cumm , BMT service:<10 K-cumm MPV 10.3 9.1 - 12.3 fL [facility] RBC 2.62(L) 3.90 - 5.20 M/cumm [facility] MCV 87.0 81.3 - 96.4 fL [facility] MCH 30.9 27.1 - 33.3 pg [facility] MCHC 35.5 32.3 - 35.7 g/dL [facility] RDW CV 15.2(H) 11.1 - 14.9 % [facility] RDW SD 48.7(H) 35.7 - 48.1 fL [facility] NRBC abs 0.00 0.00 - 0.01 K/cumm [facility] Blood 11/23/2024 12:3 6 AM CDT 11/23/2024 1:46 AM CDT Vicente Mandujano MD LAB BLOOD OR DERABLES Final Result [facility] [place] [address] * Type and screen (11/23/2024 12:36 AM CDT) [facility] Bing, indirect Negative ABO Rh A Positive [facility] Blood 11/23/2024 12:3 6 AM CDT 11/23/2024 1:42 AM CDT Narrative [facility] - 11/23/2024 2:55 AM CDT Has the patient had Daratumumab or Isatuximab in the past 6 months?->Unknown Vicente Mandujano MD LAB BLOOD BA NK TEST ORDERABLES Final Result Performing Organization Address [facility] Co de Phone Number [facility] [place] [address] * (ABNORMAL) Uric acid (11/23/2024 12:36 AM CDT) [facility] Uric acid 1.8(L) 2.5 - 7.0 mg/dL Blood 11/23/2024 12:3 6 AM CDT 11/23/2024 1:46 AM CDT Narrative [facility] - 11/23/2024 2:17 AM CDT Saturday and only. Morning draw. . Vicente Mandujano MD LAB BLOOD OR DERABLES Final Result Performing Organization Address [facility] Co de Phone Number [facility] [place] [address] * Phosphorus (11/23/2024 12:36 AM CDT) [facility] Phosphorus, pl 3.2 2.3 - 4.5 mg/dL Blood 11/23/2024 12:3 6 AM CDT 11/23/2024 1:46 AM CDT Vicente Mandujano MD LAB BLOOD OR DERABLES Final Result Performing Organization Address [facility] Co de Phone Number [facility] [place] [address] * Magnesium (11/23/2024 12:36 AM CDT) [facility] Magnesium 2.0 1.4 - 2.5 mg/dL Blood 11/23/2024 12:3 6 AM CDT 11/23/2024 1:46 AM CDT Vicente Mandujano MD LAB BLOOD OR DERABLES Final Result Performing Organization Address City/[facility] Co de Phone Number [facility] [place] [address] * Lactate dehydrogenase (LD) (11/23/2024 12:36 AM CDT) [facility] Lactate dehydrogenase (LDH) 182 100 - 250 Units/L Blood 11/23/2024 12:3 6 AM CDT 11/23/2024 1:46 AM CDT Narrative [facility] - 11/23/2024 2:17 AM CDT Saturday and only. Morning draw. Vicente Mandujano MD LAB BLOOD OR DERABLES Final Result Performing Organization Address City/[facility] de Phone Number [facility] [place] [address] * Comprehensive metabolic panel (11/23/2024 12:36 AM CDT) [facility] Sodium 140 135 - 145 mmol/L Potassium, pl 4.4 3.3 - 4.9 mmol/L [facility] Chloride 103 97 - 110 mmol/L [facility] CO2 27 22 - 32 mmol/L [facility] Anion gap 10 2 - 15 mmol/L [facility] BUN 10 6 - 25 mg/dL [facility] Creatinine 0.71 0.60 - 1.10 mg/dL [facility] Glucose 104 70 - 199 mg/dL [facility] Comment: Interpretive Data Fasting glucose >/= 126 [...] 2022. Calcium 9.4 8.5 - 10.3 mg/dL [facility] Bilirubin, total 0.4 0.1 - 1.2 mg/dL [facility] Protein, pl 6.8 6.5 - 8.5 g/dL [facility] Albumin 3.5 3.5 - 5.0 g/dL [facility] Alk phos 119 40 - 130 Units/L [facility] ALT 23 7 - 45 Units/L [facility] AST 19 10 - 45 Units/L [facility] Blood 11/23/2024 12:3 6 AM CDT 11/23/2024 1:46 AM CDT Narrative [facility] - 11/23/2024 2:17 AM CDT Saturday and only. Morning draw. Vicente Mandujano MD LAB BLOOD OR DERABLES Final Result Performing Organization Address City/[facility]/ZIP Co de Phone Number [facility] Department [place] [employer] [place] [address] * (ABNORMAL) Immature platelet fraction (11/22/2024 1:02 AM CDT) [facility] IPF 0.5(L) 1.6 - 10.1 % Blood 11/22/2024 1:02 AM CDT 11/22/2024 1:30 AM CDT Vicente Mandujano MD LAB BLOOD OR DERABLES Final Result [facility] Department [place] [employer] [place] [address] * eGFR (11/22/2024 1:02 AM CDT) [facility] eGFR >90 >=60 mL/min/1. 73 m2 [...] MD LAB BLOOD OR DERABLES Final Result [facility] [place] [address] * (ABNORMAL) Manual Differential (11/22/2024 1:02 AM CDT) Differential Manual Cells Counted 9 [facility] Neutrophil pct 0.0 % [facility] Comment: Interpretive Data Percent cell count reference ranges are not reported, since discordance with absolute values may lead to misinterpretation of CBC data. Current Interpretive Data was last revised on 2017. Lymphocyte pct 100.0 % [facility] Comment: Interpretive Data Percent cell count reference ranges are not reported, since discordance with absolute values may lead to misinterpretation of CBC data. Current Interpretive Data was last revised on 2017. RBC morphology Normal [facility] Platelet estimate Decreased( A) [facility] Blood 11/22/2024 1:02 AM CDT 11/22/2024 1:29 AM CDT Vicente Mandujano MD LAB BLOOD OR DERABLES Edited Result - Final [facility] [place] [address] * (ABNORMAL) CBC without differential (11/22/2024 1:02 AM CDT) WBC 0.0(C) 3.8 - 9.9 K/cumm Comment:Consistent with prev ious reported value Hgb 8.8(L) 11.9 - 15.5 g/dL [facility] Hct 24.5(L) 35.6 - 45.5 % [facility] Plt 19(C) 150 - 400 K/cumm [facility] Comment:Platelet count confi rmed by additional testing. Critical platelet count threshold determined by patient location: Outpatient:<50 K-cumm , Inpatient:<20 K-cumm , BMT service:<10 K-cumm MPV 10.7 9.1 - 12.3 fL [facility] RBC 2.82(L) 3.90 - 5.20 M/cumm [facility] MCV 86.9 81.3 - 96.4 fL [facility] MCH 31.2 27.1 - 33.3 pg [facility] MCHC 35.9(H) 32.3 - 35.7 g/dL [facility] RDW CV 15.5(H) 11.1 - 14.9 % [facility] RDW SD 49.7(H) 35.7 - 48.1 fL [facility] NRBC abs 0.00 0.00 - 0.01 K/cumm [facility] Blood 11/22/2024 1:02 AM CDT 11/22/2024 1:29 AM CDT Vicente Mandujano MD LAB BLOOD OR DERABLES Final Result [facility] [place] [address] * Phosphorus (11/22/2024 1:02 AM CDT) [facility] Phosphorus, pl 3.2 2.3 - 4.5 mg/dL Blood 11/22/2024 1:02 AM CDT 11/22/2024 1:12 AM CDT Vicente Mandujano MD LAB BLOOD OR DERABLES Final Result [facility] [place] [address] * Magnesium (11/22/2024 1:02 AM CDT) [facility] Magnesium 1.9 1.4 - 2.5 mg/dL Blood 11/22/2024 1:02 AM CDT 11/22/2024 1:12 AM CDT Vicente Mandujano MD LAB BLOOD OR DERABLES Final Result Performing Organization Address City/[facility]/ZIP Co de Phone Number [facility] [place] [address] * Basic metabolic panel (11/22/2024 1:02 AM CDT) [facility] Sodium 143 135 - 145 mmol/L Potassium, pl 4.3 3.3 - 4.9 mmol/L [facility] Chloride 105 97 - 110 mmol/L [facility] CO2 27 22 - 32 mmol/L [facility] Anion gap 11 2 - 15 mmol/L [facility] BUN 9 6 - 25 mg/dL [facility] Creatinine 0.73 0.60 - 1.10 mg/dL [facility] Glucose 105 70 - 199 mg/dL [facility] Comment: Interpretive Data Fasting glucose >/= 126 [...] 2022. Calcium 9.2 8.5 - 10.3 mg/dL [facility] Blood 11/22/2024 1:02 AM CDT 11/22/2024 1:12 AM CDT Narrative [facility] - 11/22/2024 1:40 AM CDT Daily except Saturday and . Morning draw. Vicente Mandujano MD LAB BLOOD OR DERABLES Final Result Performing Organization Address [facility] Co de Phone Number [facility] [place] [address] * (ABNORMAL) Immature platelet fraction (11/21/2024 12:36 AM CDT) Pathologist [facility] IPF 0.9(L) 1.6 - 10.1 % Blood 11/21/2024 12:3 6 AM CDT 11/21/2024 1:34 AM CDT Vicente Mandujano MD LAB BLOOD OR DERABLES Final Result Performing Organization Address City/[facility] Co de Phone Number [facility] [place] [address] * eGFR (11/21/2024 12:36 AM CDT) Pathologist [facility] eGFR >90 >=60 mL/min/1. 73 m2 Comment: [...] MD LAB BLOOD OR DERABLES Final Result [facility] [place] [address] * (ABNORMAL) Manual Differential (11/21/2024 12:36 AM CDT) Differential Manual Cells Counted 9 [facility] Neutrophil abs 0.0(L) 1.5 - 6.5 K/cumm [facility] Comment:BMT patient, result not critical Imm gran abs 0.0 0.0 - 0.1 K/cumm [facility] Lymphocyte abs 0.1(L) 0.8 - 3.3 K/cumm [facility] Monocyte abs 0.0(L) 0.2 - 0.8 K/cumm [facility] Neutrophil pct 0.0 % [facility] Comment: Interpretive Data Percent cell count reference ranges are not reported, since discordance with absolute values may lead to misinterpretation of CBC data. Current Interpretive Data was last revised on 2017. Lymphocyte pct 100.0 % [facility] Comment: Interpretive Data Percent cell count reference ranges are not reported, since discordance with absolute values may lead to misinterpretation of CBC data. Current Interpretive Data was last revised on 2017. RBC morphology Normal [facility] Platelet estimate Decreased( A) [facility] Blood 11/21/2024 12:3 6 AM CDT 11/21/2024 1:31 AM CDT Vicente Mandujano MD LAB BLOOD OR DERABLES Final Result Performing Organization Address [facility] Co de Phone Number [facility] [place] [address] * (ABNORMAL) CBC without differential (11/21/2024 12:36 AM CDT) WBC 0.1(C) 3.8 - 9.9 K/cumm Comment:Consistent with prev ious reported value Hgb 8.2(L) 11.9 - 15.5 g/dL [facility] Hct 23.0(L) 35.6 - 45.5 % [facility] Plt 26(L) 150 - 400 K/cumm [facility] Comment:Platelet count confi rmed by additional testing. Critical platelet count threshold determined by patient location: Outpatient:<50 K-cumm , Inpatient:<20 K-cumm , BMT service:<10 K-cumm MPV 10.6 9.1 - 12.3 fL [facility] RBC 2.60(L) 3.90 - 5.20 M/cumm [facility] MCV 88.5 81.3 - 96.4 fL [facility] MCH 31.5 27.1 - 33.3 pg [facility] MCHC 35.7 32.3 - 35.7 g/dL [facility] RDW CV 15.9(H) 11.1 - 14.9 % [facility] RDW SD 51.4(H) 35.7 - 48.1 fL [facility] NRBC abs 0.00 0.00 - 0.01 K/cumm [facility] Blood 11/21/2024 12:3 6 AM CDT 11/21/2024 1:31 AM CDT Vicente Mandujano MD LAB BLOOD OR DERABLES Final Result [facility] [place] [address] * Phosphorus (11/21/2024 12:36 AM CDT) [facility] Phosphorus, pl 3.5 2.3 - 4.5 mg/dL Blood 11/21/2024 12:3 6 AM CDT 11/21/2024 1:31 AM CDT Vicente Mandujano MD LAB BLOOD OR DERABLES Final Result Performing Organization Address [facility] Co de Phone Number [facility] [place] [address] * Magnesium (11/21/2024 12:36 AM CDT) [facility] Magnesium 2.0 1.4 - 2.5 mg/dL Blood 11/21/2024 12:3 6 AM CDT 11/21/2024 1:31 AM CDT Vicente Mandujano MD LAB BLOOD OR DERABLES Final Result Performing Organization Address City/[facility]/ZIP Co de Phone Number [facility] [place] [address] * Basic metabolic panel (11/21/2024 12:36 AM CDT) [facility] Sodium 141 135 - 145 mmol/L Potassium, pl 3.9 3.3 - 4.9 mmol/L [facility] Chloride 106 97 - 110 mmol/L [facility] CO2 26 22 - 32 mmol/L [facility] Anion gap 9 2 - 15 mmol/L [facility] BUN 8 6 - 25 mg/dL [facility] Creatinine 0.71 0.60 - 1.10 mg/dL [facility] Glucose 103 70 - 199 mg/dL [facility] Comment: Interpretive Data Fasting glucose >/= 126 [...] 2022. Calcium 8.7 8.5 - 10.3 mg/dL [facility] Blood 11/21/2024 12:3 6 AM CDT 11/21/2024 1:31 AM CDT Narrative [facility] - 11/21/2024 2:03 AM CDT Daily except Saturday and . Morning draw. us Vicente Mandujano MD LAB BLOOD OR DERABLES Final Result [facility] [place] [address] * Transfuse platelets (11/20/2024 5:12 AM CDT) us Jefferson Hrovath MD BLOOD TRANSFUSION ORDERABLES Final Result Performing Organization Address City/[facility]/ZIP Co de Phone Number [facility] [place] [address] * Prepare platelets: 1 Units (11/20/2024 2:11 AM CDT) Product code [id number] Unit Number [id number] [facility] Product Blood Type APOS [facility] Dispense Status PRESUMED TRANSFUSED [facility] Blood Venous blood specimen / Unknown 11/20/2024 2:11 AM CDT 11/20/2024 2:10 AM CDT Narrative [facility] - 11/20/2024 4:01 PM CDT Are special requirements needed? (all products are leukoreduced)->Yes Date required:-[id number] Special Req 1:-Irradiated PLT # of Units:-1-Units Reasons:-Stable, non-bleeding, plt < 10 K/cumm} Jefferson Horvath MD BLOOD BANK PRODUCT ORDERABLE S Final Result Performing Organization Address [facility] Co de Phone Number [facility] [place] [place] [address] * (ABNORMAL) Immature platelet fraction (11/20/2024 12:28 AM CDT) IPF 0.1(L) 1.6 - 10.1 % Blood 11/20/2024 12:2 8 AM CDT 11/20/2024 12:55 AM CDT Vicente Mandujano MD LAB BLOOD OR DERABLES Final Result Performing Organization Address [facility] Co de Phone Number [facility] [place] [address] * eGFR (11/20/2024 12:28 AM CDT) eGFR >90 >=60 mL/min/1. 73 [...] OR DERABLES Final Result Performing Organization Address [facility] de Phone Number [facility] [place] [place] [address] * (ABNORMAL) Manual Differential (11/20/2024 12:28 AM CDT) Pathologist [facility] Differential Manual Cells Counted 13 [facility] Neutrophil pct 0.0 % [facility] Comment: Interpretive Data Percent cell count reference ranges are not reported, since discordance with absolute values may lead to misinterpretation of CBC data. Current Interpretive Data was last revised on 2017. Lymphocyte pct 100.0 % [facility] Comment: Interpretive Data Percent cell count reference ranges are not reported, since discordance with absolute values may lead to misinterpretation of CBC data. Current Interpretive Data was last revised on 2017. RBC morphology Normal [facility] Platelet estimate Decreased( A) [facility] Blood 11/20/2024 12:2 8 AM CDT 11/20/2024 12:51 AM CDT Vicente Mandujano MD LAB BLOOD OR DERABLES Final Result Performing Organization Address [facility] de Phone Number [facility] [place] [address] * (ABNORMAL) CBC without differential (11/20/2024 12:28 AM CDT) WBC 0.0(C) 3.8 - 9.9 K/cumm Comment:Consistent with prev ious reported value Hgb 8.5(L) 11.9 - 15.5 g/dL [facility] Hct 24.2(L) 35.6 - 45.5 % [facility] Plt 8(C) 150 - 400 K/cumm [facility] Comment:Godfrey Ko RN. C ritical result called to and read back by GODFREY KO RN on 11 20 2024 at 0133 to Rivka Magallon. MPV 11.5 9.1 - 12.3 fL [facility] RBC 2.76(L) 3.90 - 5.20 M/cumm [facility] MCV 87.7 81.3 - 96.4 fL [facility] MCH 30.8 27.1 - 33.3 pg [facility] MCHC 35.1 32.3 - 35.7 g/dL [facility] RDW CV 15.9(H) 11.1 - 14.9 % [facility] RDW SD 51.2(H) 35.7 - 48.1 fL [facility] NRBC abs 0.00 0.00 - 0.01 K/cumm [facility] Blood 11/20/2024 12:2 8 AM CDT 11/20/2024 12:51 AM CDT Vicente Mandujano MD LAB BLOOD OR DERABLES Final Result [facility] [place] [address] * Type and screen (11/20/2024 12:28 AM CDT) Bing, indirect Negative ABO Rh A Positive [facility] Blood 11/20/2024 12:2 8 AM CDT 11/20/2024 12:52 AM CDT Narrative [facility] - 11/20/2024 1:56 AM CDT Has the patient had Daratumumab or Isatuximab in the past 6 months?->Unknown Vicente Mandujano MD LAB BLOOD BA NK TEST ORDERABLES Final Result [facility] [place] [address] * Phosphorus (11/20/2024 12:28 AM CDT) Pathologist [facility] Phosphorus, pl 3.5 2.3 - 4.5 mg/dL Blood 11/20/2024 12:2 8 AM CDT 11/20/2024 12:51 AM CDT Vicente Mandujano MD LAB BLOOD OR DERABLES Final Result Performing Organization Address [facility] Co de Phone Number [facility] [place] [address] * Magnesium (11/20/2024 12:28 AM CDT) [facility] Magnesium 1.9 1.4 - 2.5 mg/dL Blood 11/20/2024 12:2 8 AM CDT 11/20/2024 12:51 AM CDT Vicente Mandujano MD LAB BLOOD OR DERABLES Final Result Performing Organization Address [facility] de Phone Number [facility] [place] [address] * Basic metabolic panel (11/20/2024 12:28 AM CDT) [facility] Sodium 144 135 - 145 mmol/L Potassium, pl 3.6 3.3 - 4.9 mmol/L [facility] Chloride 108 97 - 110 mmol/L [facility] CO2 27 22 - 32 mmol/L [facility] Anion gap 9 2 - 15 mmol/L [facility] BUN 8 6 - 25 mg/dL [facility] Creatinine 0.74 0.60 - 1.10 mg/dL [facility] Glucose 109 70 - 199 mg/dL [facility] Comment: Interpretive Data Fasting glucose >/= 126 [...] 2022. Calcium 8.9 8.5 - 10.3 mg/dL [facility] Blood 11/20/2024 12:2 8 AM CDT 11/20/2024 12:51 AM CDT Narrative [facility] - 11/20/2024 1:24 AM CDT Daily except Saturday and . Morning draw. Vicente Mandujano MD LAB BLOOD OR DERABLES Final Result Performing Organization Address [facility]/ZIP Co de Phone Number [facility] [place] [address] * ECG 12 lead (11/19/2024 4:18 PM CDT) [facility] Ventricular Rate EKG/Min 85 BPM [facility] Atrial Rate 85 BPM [facility] GA-Interval (MSEC) 140 ms [facility] QRS-Interval (MSEC) 82 ms [facility] QT-Interval (MSEC) 390 ms [facility] QTc 464 ms [facility] P [place] 68 degrees [facility] R [place] 48 degrees [facility] T [place] 51 degrees [facility] Diagnosis Normal sinus rhythm Normal ECG When compared with ECG of 14-NOV-2024 20:18, No significant change was found Confirmed by WALT MAHONEY M.D ([id number]) on 11/22/2024 4:21:02 PM [facility] 11/19/2024 4:18 PM CDT 11/22/2024 4:21 PM CDT Vicente Mandujano MD ECG ORDERABL ES Final Result Performing Organization Address City/[facility]/ZIP Co de Phone Number [facility] * (ABNORMAL) Aerobic and anaerobic culture and gram stain Wound Groin, left (11/19/2024 1:28 PM CDT) Direct Specimen Exam Stain: No polymorphonuclear leukocytes seen. No organisms seen. Report Final Report: Few Pseudomonas aeruginosa Rare Dee albicans Rare Mixed microorganisms. (.) [facility] Organism PSEUDOMONAS AERUGINOSA [facility] Organism DEE ALBICANS [facility] Organism MIXED MICROORGANISMS. [facility] Wound (Groin, left) 11/19/2024 1:28 PM CDT 11/19/2024 2:05 PM CDT Narrative [facility] - 11/23/2024 3:09 PM CDT Testing performed by [facility] ([phone]) Specimens submitted from normally sterile body sites [...] ETATION Susceptible Pseudomonas aeruginosa Tobramycin INTERPRETATION Susceptible Katie Hunter MD PhD LAB MICROBIOLOGY - GEN ERAL ORDERABLES Final Result [facility] [place] [address] * (ABNORMAL) Immature platelet fraction (11/19/2024 12:33 AM CDT) IPF 0.4(L) 1.6 - 10.1 % Blood 11/19/2024 12:3 3 AM CDT 11/19/2024 1:05 AM CDT Vicente Mandujano MD LAB BLOOD OR DERABLES Final Result Performing Organization Address [facility] Co de Phone Number [facility] [place] [address] * eGFR (11/19/2024 12:33 AM CDT) [facility] eGFR >90 >=60 mL/min/1. 73 m2 [...] OR DERABLES Final Result Performing Organization Address [facility] Co de Phone Number [facility] [place] [address] * (ABNORMAL) Manual Differential (11/19/2024 12:33 AM CDT) [facility] Differential Manual Cells Counted 12 [facility] Neutrophil abs 0.0(L) 1.5 - 6.5 K/cumm [facility] Comment:BMT patient, result not critical Imm gran abs 0.0 0.0 - 0.1 K/cumm [facility] Lymphocyte abs 0.1(L) 0.8 - 3.3 K/cumm [facility] Monocyte abs 0.0(L) 0.2 - 0.8 K/cumm [facility] Neutrophil pct 0.0 % [facility] Comment: Interpretive Data Percent cell count reference ranges are not reported, since discordance with absolute values may lead to misinterpretation of CBC data. Current Interpretive Data was last revised on 2017. Lymphocyte pct 100.0 % [facility] Comment: Interpretive Data Percent cell count reference ranges are not reported, since discordance with absolute values may lead to misinterpretation of CBC data. Current Interpretive Data was last revised on 2017. RBC morphology Normal [facility] Platelet estimate Decreased( A) [facility] Blood 11/19/2024 12:3 3 AM CDT 11/19/2024 1:00 AM CDT Vicente Mandujano MD LAB BLOOD OR DERABLES Edited Result - Final [facility] [place] [address] * (ABNORMAL) CBC without differential (11/19/2024 12:33 AM CDT) [facility] WBC 0.1(C) 3.8 - 9.9 K/cumm Comment:Consistent with prev ious reported value Hgb 8.4(L) 11.9 - 15.5 g/dL [facility] Hct 23.7(L) 35.6 - 45.5 % [facility] Plt 12(C) 150 - 400 K/cumm [facility] Comment:Platelet count confi rmed by additional testing. Critical platelet count threshold determined by patient location: Outpatient:<50 K-cumm , Inpatient:<20 K-cumm , BMT service:<10 K-cumm MPV 9.1 9.1 - 12.3 fL [facility] RBC 2.66(L) 3.90 - 5.20 M/cumm [facility] MCV 89.1 81.3 - 96.4 fL [facility] MCH 31.6 27.1 - 33.3 pg [facility] MCHC 35.4 32.3 - 35.7 g/dL [facility] RDW CV 16.1(H) 11.1 - 14.9 % [facility] RDW SD 53.1(H) 35.7 - 48.1 fL [facility] NRBC abs 0.00 0.00 - 0.01 K/cumm [facility] Blood 11/19/2024 12:3 3 AM CDT 11/19/2024 1:00 AM CDT Vicente Mandujano MD LAB BLOOD OR DERABLES Final Result Performing Organization Address [facility]/ZIP Co de Phone Number [facility] [place] [address] * Type and screen (11/19/2024 12:33 AM CDT) Pathologist [facility] Bing, indirect Negative ABO Rh A Positive [facility] Blood 11/19/2024 12:3 3 AM CDT 11/19/2024 1:09 AM CDT Narrative [facility] - 11/19/2024 2:20 AM CDT Has the patient had Daratumumab or Isatuximab in the past 6 months?->Unknown Vicente Mandujano MD LAB BLOOD BA NK TEST ORDERABLES Final Result [facility] [place] [address] * (ABNORMAL) Uric acid (11/19/2024 12:33 AM CDT) Pathologist [facility] Uric acid 1.4(L) 2.5 - 7.0 mg/dL Blood 11/19/2024 12:3 3 AM CDT 11/19/2024 1:01 AM CDT Narrative [facility] - 11/19/2024 1:30 AM CDT Saturday and only. Morning draw. . Vicente Mandujano MD LAB BLOOD OR DERABLES Final Result Performing Organization Address [facility] Co de Phone Number [facility] [place] [address] * Phosphorus (11/19/2024 12:33 AM CDT) Phosphorus, pl 3.6 2.3 - 4.5 mg/dL Blood 11/19/2024 12:3 3 AM CDT 11/19/2024 1:01 AM CDT Vicente Mandujano MD LAB BLOOD OR DERABLES Final Result Performing Organization Address [facility] Co de Phone Number [facility] [place] [address] * Magnesium (11/19/2024 12:33 AM CDT) Pathologist [facility] Magnesium 1.8 1.4 - 2.5 mg/dL Blood 11/19/2024 12:3 3 AM CDT 11/19/2024 1:01 AM CDT Vicente Mandujano MD LAB BLOOD OR DERABLES Final Result Performing Organization Address [facility] Co de Phone Number [facility] [place] [address] * Lactate dehydrogenase (LD) (11/19/2024 12:33 AM CDT) Lactate dehydrogenase (LDH) 150 100 - 250 Units/L Blood 11/19/2024 12:3 3 AM CDT 11/19/2024 1:01 AM CDT Narrative [facility] - 11/19/2024 1:30 AM CDT Saturday and only. Morning draw. Vicente Mandujano MD LAB BLOOD OR DERABLES Final Result [facility] [place] [address] * (ABNORMAL) Comprehensive metabolic panel (11/19/2024 12:33 AM CDT) Sodium 143 135 - 145 mmol/L Potassium, pl 3.7 3.3 - 4.9 mmol/L [facility] Chloride 108 97 - 110 mmol/L [facility] CO2 25 22 - 32 mmol/L [facility] Anion gap 10 2 - 15 mmol/L [facility] BUN 9 6 - 25 mg/dL [facility] Creatinine 0.67 0.60 - 1.10 mg/dL [facility] Glucose 100 70 - 199 mg/dL [facility] Comment: Interpretive Data Fasting glucose >/= 126 [...] 2022. Calcium 8.7 8.5 - 10.3 mg/dL [facility] Bilirubin, total 0.7 0.1 - 1.2 mg/dL [facility] Protein, pl 5.8(L) 6.5 - 8.5 g/dL [facility] Albumin 3.3(L) 3.5 - 5.0 g/dL [facility] Alk phos 103 40 - 130 Units/L [facility] ALT 16 7 - 45 Units/L [facility] AST 13 10 - 45 Units/L [facility] Blood 11/19/2024 12:3 3 AM CDT 11/19/2024 1:01 AM CDT Narrative [facility] - 11/19/2024 2:22 AM CDT Saturday and only. Morning draw. Vicente Mandujano MD LAB BLOOD OR DERABLES Final Result [facility] [place] [address] * CT Abdomen Pelvis W Contrast (11/18/2024 [...] it. Electronically signed by: Walt Trujillo M.D. us Winnie Hernandez MD IMG CT PROCEDURES Final R esult * (ABNORMAL) Immature platelet fraction (11/18/2024 12:23 AM CDT) IPF 0.1(L) 1.6 - 10.1 % Blood 11/18/2024 12:2 3 AM CDT 11/18/2024 12:46 AM CDT us Vicente Mandujano MD LAB BLOOD OR DERABLES Final Result [facility] [place] [address] * eGFR (11/18/2024 12:23 AM CDT) eGFR [...] MD LAB BLOOD OR DERABLES Final Result [facility] [place] [address] * (ABNORMAL) Manual Differential (11/18/2024 12:23 AM CDT) Differential Manual Cells Counted 17 [facility] Neutrophil pct 0.0 % [facility] Comment: Interpretive Data Percent cell count reference ranges are not reported, since discordance with absolute values may lead to misinterpretation of CBC data. Current Interpretive Data was last revised on 2017. Lymphocyte pct 100.0 % [facility] Comment: Interpretive Data Percent cell count reference ranges are not reported, since discordance with absolute values may lead to misinterpretation of CBC data. Current Interpretive Data was last revised on 2017. RBC morphology Present(A) [facility] Anisocytosis Moderate(A ) [facility] Poikilocytosis Slight(A) [facility] Microcytes 8-15/HPF(A ) [facility] Platelet estimate Decreased( A) [facility] Blood 11/18/2024 12:2 3 AM CDT 11/18/2024 12:40 AM CDT Vicente Mandujano MD LAB BLOOD OR DERABLES Edited Result - Final [facility] [place] [address] * Blood culture Blood (11/18/2024 12:23 AM CDT) Report Final Report: No growth Blood 11/18/2024 12:2 3 AM CDT 11/18/2024 1:28 AM CDT Narrative [facility] - 11/22/2024 7:00 AM CDT From a [...] performance characteristics have been verified by the [facility]. For questions about this culture, contact the Microbiology Laboratory at [phone]. Interpretive data was last revised on 24. Jefferson Horvath MD LAB MICROBIOLOGY - GENERAL O RDERABLES Final Result Performing Organization Address City/[facility]/ZIP Co de Phone Number [facility]ID GARCÍA [facility] [place] [address] * Blood culture Blood (11/18/2024 12:23 AM CDT) Report Final Report: No growth Blood 11/18/2024 12:2 3 AM CDT 11/18/2024 1:28 AM CDT Narrative [facility] - 11/22/2024 7:00 AM CDT Collection->Peripheral 1. [...] performance characteristics have been verified by the [facility]. For questions about this culture, contact the Microbiology Laboratory at [phone]. Interpretive data was last revised on 24. Jefferson Horvath MD LAB MICROBIOLOGY - GENERAL O RDERABLES Final Result Performing Organization Address City/[facility]/ZIP Co de Phone Number [facility] GARCÍA [facility] [place] [address] * (ABNORMAL) CBC without differential (11/18/2024 12:23 AM CDT) Pathologist [facility] WBC 0.0(C) 3.8 - 9.9 K/cumm Comment:Consistent with prev ious reported value Hgb 8.7(L) 11.9 - 15.5 g/dL [facility] Hct 24.6(L) 35.6 - 45.5 % [facility] Plt 18(C) 150 - 400 K/cumm [facility] Comment:Platelet count confi rmed by additional testing. Critical platelet count threshold determined by patient location: Outpatient:<50 K-cumm , Inpatient:<20 K-cumm , BMT service:<10 K-cumm MPV 10.5 9.1 - 12.3 fL [facility] RBC 2.78(L) 3.90 - 5.20 M/cumm [facility] MCV 88.5 81.3 - 96.4 fL [facility] MCH 31.3 27.1 - 33.3 pg [facility] MCHC 35.4 32.3 - 35.7 g/dL [facility] RDW CV 16.1(H) 11.1 - 14.9 % [facility] RDW SD 52.4(H) 35.7 - 48.1 fL [facility] NRBC abs 0.00 0.00 - 0.01 K/cumm [facility] Blood 11/18/2024 12:2 3 AM CDT 11/18/2024 12:40 AM CDT Vicente Mandujano MD LAB BLOOD OR DERABLES Final Result [facility] [place] [address] * Phosphorus (11/18/2024 12:23 AM CDT) Pathologist [facility] Phosphorus, pl 2.8 2.3 - 4.5 mg/dL Blood 11/18/2024 12:2 3 AM CDT 11/18/2024 12:40 AM CDT Vicente Mandujano MD LAB BLOOD OR DERABLES Final Result Performing Organization Address [facility]/ZIP Co de Phone Number [facility] [place] [address] * Magnesium (11/18/2024 12:23 AM CDT) [facility] Magnesium 1.8 1.4 - 2.5 mg/dL Blood 11/18/2024 12:2 3 AM CDT 11/18/2024 12:40 AM CDT Vicente Mandujano MD LAB BLOOD OR DERABLES Final Result Performing Organization Address [facility] de Phone Number [facility] [place] [address] * (ABNORMAL) Basic metabolic panel (11/18/2024 12:23 AM CDT) [facility] Sodium 142 135 - 145 mmol/L Potassium, pl 3.9 3.3 - 4.9 mmol/L [facility] Chloride 110 97 - 110 mmol/L [facility] CO2 22 22 - 32 mmol/L [facility] Anion gap 10 2 - 15 mmol/L [facility] BUN 6 6 - 25 mg/dL [facility] Creatinine 0.59(L) 0.60 - 1.10 mg/dL [facility] Glucose 92 70 - 199 mg/dL [facility] Comment: Interpretive Data Fasting glucose >/= 126 [...] 2022. Calcium 8.0(L) 8.5 - 10.3 mg/dL [facility] Blood 11/18/2024 12:2 3 AM CDT 11/18/2024 12:40 AM CDT Narrative [facility] - 11/18/2024 1:09 AM CDT Daily except Saturday and . Morning draw. Vicente Mandujano MD LAB BLOOD OR DERABLES Final Result Performing Organization Address City/[facility]/ZIP Co de Phone Number [facility] [place] [address] * Herpes Simplex Virus (HSV) PCR Lesion (11/17/2024 3:47 PM CDT) Pathologist [facility] HSV DNA Not Detected Not Detected [facility] Comment: Interpretive Data This assay is performed [...] PM CDT 11/17/2024 4:09 PM CDT Narrative DAVID [facility] - 11/17/2024 11:09 PM CDT Right buccal mucosa Winnie Hernandez MD LAB MICROBIOLOGY - GENERA L ORDERABLES Final Result [facility] [place] [address] [facility] * Transfuse platelets (11/17/2024 4:10 AM CDT) Jefferson Horvath MD BLOOD TRANSFUSION ORDERABLES Final Result [facility] [place] [address] * Prepare platelets: 1 Units (11/17/2024 1:56 AM CDT) [facility] Product code [id number] Unit Number [id number] [facility] Product Blood Type APOS [facility] Dispense Status PRESUMED TRANSFUSED [facility] Blood Venous blood specimen / Unknown 11/17/2024 1:56 AM CDT 11/17/2024 1:56 AM CDT Narrative [facility] - 11/17/2024 4:00 PM CDT Are special requirements needed? (all products are leukoreduced)->Yes Date required:-[id number] Special Req 1:-Irradiated PLT # of Units:-1-Units Reasons:-Stable, non-bleeding, plt < 10 K/cumm} Jefferson Horvath MD BLOOD BANK PRODUCT ORDERABLE S Final Result Performing Organization Address [facility] Co de Phone Number [facility] Department [place] [employer] [place] [address] * (ABNORMAL) Immature platelet fraction (11/17/2024 12:24 AM CDT) [facility] IPF 0.5(L) 1.6 - 10.1 % Blood 11/17/2024 12:2 4 AM CDT 11/17/2024 12:49 AM CDT Vicente Mandujano MD LAB BLOOD OR [place] [address] * eGFR (11/17/2024 12:24 AM CDT) [facility] eGFR >90 >=60 mL/min/1. 73 m2 [...] 4 AM CDT 11/17/2024 12:45 AM CDT us Vicente Mandujano MD LAB BLOOD OR DERABLES Final Result [facility] [place] [address] * (ABNORMAL) Manual Differential (11/17/2024 12:24 AM CDT) Differential Manual Cells Counted 9 [facility] Neutrophil pct 0.0 % [facility] Comment: Interpretive Data Percent cell count reference ranges are not reported, since discordance with absolute values may lead to misinterpretation of CBC data. Current Interpretive Data was last revised on 2017. Lymphocyte pct 100.0 % [facility] Comment: Interpretive Data Percent cell count reference ranges are not reported, since discordance with absolute values may lead to misinterpretation of CBC data. Current Interpretive Data was last revised on 2017. RBC morphology Present(A) [facility] Anisocytosis Slight(A) [facility] Poikilocytosis Slight(A) [facility] Platelet estimate Decreased( A) [facility] Blood 11/17/2024 12:2 4 AM CDT 11/17/2024 12:45 AM CDT Vicente Mandujano MD LAB BLOOD OR DERABLES Edited Result - Final Performing Organization Address [facility]/ZIP Co de Phone Number [facility] [place] [address] * Blood culture Blood (11/17/2024 12:24 AM CDT) Report Final Report: No growth Blood 11/17/2024 12:2 4 AM CDT 11/17/2024 12:42 AM CDT Narrative DAVID [facility] - 11/21/2024 7:01 AM CDT From a [...] performance characteristics have been verified by the [facility] Microbiology Laboratory. For questions about this culture, contact the Microbiology Laboratory at [phone]. Interpretive data was last revised on 24. us Jefferson Horvath MD LAB MICROBIOLOGY - GENERAL O RDERABLES Final Result Performing Organization Address [facility]/ZIP Co de Phone Number DAVID [facility] [place] [address] * Blood culture Blood (11/17/2024 12:24 AM CDT) Report Final Report: No growth Blood 11/17/2024 12:2 4 AM CDT 11/17/2024 12:42 AM CDT Narrative DAVID WAYNE - 11/21/2024 7:01 AM CDT Collection->Peripheral 1. [...] performance characteristics have been verified by the [facility]biology [facility]. For questions about this culture, contact the Microbiology Laboratory at [phone]. Interpretive data was last revised on 24. Jefferson Horvath MD LAB MICROBIOLOGY - GENERAL O MORENAERABLES Final Result DAVID GARCÍA [facility] [place] [address] * (ABNORMAL) CBC without differential (11/17/2024 12:24 AM CDT) WBC 0.0(C) 3.8 - 9.9 K/cumm Comment:Consistent with prev ious reported value Hgb 8.7(L) 11.9 - 15.5 g/dL [facility] Hct 24.7(L) 35.6 - 45.5 % [facility] Plt 6(C) 150 - 400 K/cumm [facility] Comment:Critical result call ed to and read back by NORRIS MINOR RN on 11 17 2024 at 0123 to VIVIAN PLEITEZ. MPV 12.9(H) 9.1 - 12.3 fL [facility] RBC 2.82(L) 3.90 - 5.20 M/cumm [facility] MCV 87.6 81.3 - 96.4 fL [facility] MCH 30.9 27.1 - 33.3 pg [facility] MCHC 35.2 32.3 - 35.7 g/dL [facility] RDW CV 15.9(H) 11.1 - 14.9 % [facility] RDW SD 51.0(H) 35.7 - 48.1 fL [facility] NRBC abs 0.00 0.00 - 0.01 K/cumm [facility] Blood 11/17/2024 12:2 4 AM CDT 11/17/2024 12:45 AM CDT Vicente Mandujano MD LAB BLOOD OR DERABLES Final Result [facility] [place] [address] * Type and screen (11/17/2024 12:24 AM CDT) Bing, indirect Negative ABO Rh A Positive [facility] Blood 11/17/2024 12:2 4 AM CDT 11/17/2024 12:49 AM CDT Narrative [facility] - 11/17/2024 1:34 AM CDT Has the patient had Daratumumab or Isatuximab in the past 6 months?->Unknown Vicente Mandujano MD LAB BLOOD BA NK TEST ORDERABLES Final Result Performing Organization Address City/[facility]/ZIP Co de Phone Number [facility] [place] [address] * Phosphorus (11/17/2024 12:24 AM CDT) [facility] Phosphorus, pl 2.9 2.3 - 4.5 mg/dL Blood 11/17/2024 12:2 4 AM CDT 11/17/2024 12:45 AM CDT Vicente Mandujano MD LAB BLOOD OR DERABLES Final Result Performing Organization Address [facility] Co de Phone Number [facility] [place] [address] * Magnesium (11/17/2024 12:24 AM CDT) [facility] Magnesium 1.7 1.4 - 2.5 mg/dL Blood 11/17/2024 12:2 4 AM CDT 11/17/2024 12:45 AM CDT Vicente Mandujano MD LAB BLOOD OR DERABLES Final Result Performing Organization Address [facility] Co de Phone Number [facility] [place] [address] * (ABNORMAL) Basic metabolic panel (11/17/2024 12:24 AM CDT) [facility] Sodium 142 135 - 145 mmol/L Potassium, pl 3.0(L) 3.3 - 4.9 mmol/L [facility] Chloride 110 97 - 110 mmol/L [facility] CO2 24 22 - 32 mmol/L [facility] Anion gap 8 2 - 15 mmol/L [facility] BUN 7 6 - 25 mg/dL [facility] Creatinine 0.68 0.60 - 1.10 mg/dL [facility] Glucose 104 70 - 199 mg/dL [facility] Comment: Interpretive Data Fasting glucose >/= 126 [...] 2022. Calcium 8.0(L) 8.5 - 10.3 mg/dL [facility] Blood 11/17/2024 12:2 4 AM CDT 11/17/2024 12:45 AM CDT Narrative [facility] - 11/17/2024 1:15 AM CDT Daily except Saturday and . Morning draw. Vicente Mandujano MD LAB BLOOD OR DERABLES Final Result [facility] [place] [address] * Transfuse RBC (11/16/2024 6:59 AM CDT) Blood Jefferson Horvath MD BLOOD TRANSFUSION ORDERABLES Final Result Performing Organization Address City/[facility]/ZIP Co de Phone Number [facility] [place] [address] * Blood culture Blood (11/16/2024 4:48 AM CDT) Report Final Report: No growth Blood 11/16/2024 4:48 AM CDT 11/16/2024 5:39 AM CDT Narrative [facility] - 11/20/2024 7:00 AM CDT From a [...] performance characteristics have been verified by the [facility]biology Laboratory. For questions about this culture, contact the Microbiology Laboratory at [phone]. Interpretive data was last revised on 24. Jefferson Horvath MD LAB MICROBIOLOGY - GENERAL O RDERABLES Final Result DAVID GARCÍA [facility] [place] [address] * Blood culture Blood (11/16/2024 4:48 AM CDT) Report Final Report: No growth Blood 11/16/2024 4:48 AM CDT 11/16/2024 5:39 AM CDT [facility] DAVID [facility] - 11/20/2024 7:00 AM CDT Collection->Peripheral 1. [...] performance characteristics have been verified by the [facility]biology [facility]. For questions about this culture, contact the Microbiology Laboratory at [phone]. Interpretive data was last revised on 24. Jefferson Horvath MD LAB MICROBIOLOGY - GENERAL O RDERABLES Final Result Performing Organization Address City/[facility]/ZIP Co de Phone Number [facility] Department [place] [employer] [place] [address] * Prepare RBC: 1 Units (11/16/2024 1:27 AM CDT) [facility] Product code [id number] Unit Number [id number] [facility] Product Blood Type APOS [facility] Dispense Status PRESUMED TRANSFUSED [facility] Blood Venous blood specimen / Unknown 11/16/2024 1:27 AM CDT 11/16/2024 1:27 AM CDT Narrative [facility] - 11/16/2024 4:00 PM CDT Are special requirements needed? (All products are leukoreduced and CMV- safe)- >Yes Date required:-20240929 Special Req 1:-Irradiated LRRBC # of Pxlmg-3-Uslcc Reasons:-BMT, Hgb <8 g/dL} Jefferson Horvath MD BLOOD BANK PRODUCT ORDERABLE S Final Result Performing Organization Address [facility]/ZIP Co de Phone Number [facility] Department of [employer] [place], [place] [id number] * (ABNORMAL) Immature platelet fraction (11/16/2024 12:24 AM CDT) [facility] IPF 1.1(L) 1.6 - 10.1 % Blood 11/16/2024 12:2 4 AM CDT 11/16/2024 1:03 AM CDT Vicente Mandujano MD LAB BLOOD OR DERABLES Final Result Performing Organization Address [facility] Co de Phone Number DAVID [facility] [place] [employer] [place] [address] * eGFR (11/16/2024 12:24 AM CDT) Pathologist [facility] eGFR >90 >=60 mL/min/1. 73 m2 Comment: [...] OR DERABLES Final Result Performing Organization Address City/[facility]/ZIP Co de Phone Number DAVID [facility] [place] [address] * (ABNORMAL) Manual Differential (11/16/2024 12:24 AM CDT) Pathologist [facility] Differential Manual Cells Counted 5 [facility] Neutrophil pct 0.0 % [facility] Comment: Interpretive Data Percent cell count reference ranges are not reported, since discordance with absolute values may lead to misinterpretation of CBC data. Current Interpretive Data was last revised on 2017. Lymphocyte pct 100.0 % [facility] Comment: Interpretive Data Percent cell count reference ranges are not reported, since discordance with absolute values may lead to misinterpretation of CBC data. Current Interpretive Data was last revised on 2017. RBC morphology Normal [facility] Platelet estimate Decreased( A) [facility] Blood 11/16/2024 12:2 4 AM CDT 11/16/2024 12:38 AM CDT Vicente Mandujano MD LAB BLOOD OR DERABLES Edited Result - Final Performing Organization Address [facility] Co de Phone Number [facility] [place] [employer] [place] [address] * aPTT (11/16/2024 12:24 AM CDT) aPTT [...] OR DERABLES Final Result Performing Organization Address City/[facility]/ZIP Co de Phone Number [facility] [place] [employer] [place] [address] * (ABNORMAL) Protime-INR (11/16/2024 12:24 AM CDT) PT 15.5(H) 9.7 - 13.0 sec INR 1.42(H) 0.90 - 1.20 [facility] Comment: Interpretive data Oral anticoagulant therapeutic ranges: Venous thromboembolism prophylaxis or treatment: 2.0-3.0 CARDIOLOGY Standard range: 2.0-3.0 High-intensity range: 2.5-3.5 Refer to indication-specific guidelines for appropriate target ranges for prosthetic heart valve replacement. Current interpretive data was last revised on 2019. Blood 11/16/2024 12:2 4 AM CDT 11/16/2024 12:40 AM CDT us Vicente Mandujano MD LAB BLOOD OR DERABLES Final Result [facility] [place] [address] * (ABNORMAL) CBC without differential (11/16/2024 12:24 AM CDT) WBC 0.0(C) 3.8 - 9.9 K/cumm Comment:Consistent with prev ious reported value Hgb 7.7(L) 11.9 - 15.5 g/dL [facility] Hct 22.6(L) 35.6 - 45.5 % [facility] Plt 12(C) 150 - 400 K/cumm [facility] Comment:Platelet count confi rmed by additional testing. Critical platelet count threshold determined by patient location: Outpatient:<50 K-cumm , Inpatient:<20 K-cumm , BMT service:<10 K-cumm MPV 11.4 9.1 - 12.3 fL [facility] RBC 2.51(L) 3.90 - 5.20 M/cumm [facility] MCV 90.0 81.3 - 96.4 fL [facility] MCH 30.7 27.1 - 33.3 pg [facility] MCHC 34.1 32.3 - 35.7 g/dL [facility] RDW CV 17.3(H) 11.1 - 14.9 % [facility] RDW SD 57.1(H) 35.7 - 48.1 fL [facility] NRBC abs 0.00 0.00 - 0.01 K/cumm [facility] Blood 11/16/2024 12:2 4 AM CDT 11/16/2024 12:38 AM CDT Vicente Mandujano MD LAB BLOOD OR DERABLES Final Result Performing Organization Address [facility]/ZIP Co de Phone Number [facility] [place] [address] * Type and screen (11/16/2024 12:24 AM CDT) ABO Rh A Positive Bing, indirect Negative [facility] Blood 11/16/2024 12:2 4 AM CDT 11/16/2024 12:50 AM CDT Narrative [facility] - 11/16/2024 2:30 AM CDT Has the patient had Daratumumab or Isatuximab in the past 6 months?->Unknown Vicente Mandujano MD LAB BLOOD BA NK TEST ORDERABLES Final Result Performing Organization Address [facility] de Phone Number [facility] [employer] [place] [address] * (ABNORMAL) Uric acid (11/16/2024 12:24 AM CDT) Uric acid 1.2(L) 2.5 - 7.0 mg/dL Blood 11/16/2024 12:2 4 AM CDT 11/16/2024 12:38 AM CDT Narrative [facility] - 11/16/2024 1:24 AM CDT Saturday and only. Morning draw. . Vicente Mandujano MD LAB BLOOD OR DERABLES Final Result Performing Organization Address [facility] Co de Phone Number [place] [address] * Phosphorus (11/16/2024 12:24 AM CDT) Phosphorus, pl 2.6 2.3 - 4.5 mg/dL Blood 11/16/2024 12:2 4 AM CDT 11/16/2024 12:38 AM CDT Vicente Mandujano MD LAB BLOOD OR DERABLES Final Result Performing Organization Address [facility]/[place] [address] * Magnesium (11/16/2024 12:24 AM CDT) Pathologist [facility] Magnesium 1.9 1.4 - 2.5 mg/dL Blood 11/16/2024 12:2 4 AM CDT 11/16/2024 12:38 AM CDT Vicente Mandujano MD LAB BLOOD OR DERABLES Final Result Performing Organization Address [facility] de Phone Number [facility] [employer] [place] [address] * Lactate dehydrogenase (LD) (11/16/2024 12:24 AM CDT) Pathologist [facility] Lactate dehydrogenase (LDH) 195 100 - 250 Units/L Blood 11/16/2024 12:2 4 AM CDT 11/16/2024 12:38 AM CDT Narrative DAVID [facility] - 11/16/2024 1:24 AM CDT Saturday and only. Morning draw. Vicente Mandujano MD LAB BLOOD OR DERABLES Final Result Performing Organization Address [facility] Co de Phone Number [facility] [employer] [place] [address] * (ABNORMAL) Comprehensive metabolic panel (11/16/2024 12:24 AM CDT) Sodium 139 135 - 145 mmol/L Potassium, pl 3.5 3.3 - 4.9 mmol/L [facility] Chloride 109 97 - 110 mmol/L [facility] CO2 24 22 - 32 mmol/L [facility] Anion gap 6 2 - 15 mmol/L [facility] BUN 11 6 - 25 mg/dL [facility] Creatinine 0.65 0.60 - 1.10 mg/dL [facility] Glucose 103 70 - 199 mg/dL [facility] Comment: Interpretive Data Fasting glucose >/= 126 [...] 2022. Calcium 7.7(L) 8.5 - 10.3 mg/dL [facility] Bilirubin, total 1.6(H) 0.1 - 1.2 mg/dL [facility] Protein, pl 5.0(L) 6.5 - 8.5 g/dL [facility] Albumin 2.7(L) 3.5 - 5.0 g/dL [facility] Alk phos 111 40 - 130 Units/L [facility] ALT 19 7 - 45 Units/L [facility] AST 12 10 - 45 Units/L [facility] Blood 11/16/2024 12:2 4 AM CDT 11/16/2024 12:38 AM CDT Narrative [facility] - 11/16/2024 1:24 AM CDT Saturday and only. Morning draw. Vicente Mandujano MD LAB BLOOD OR DERABLES Final Result [facility] [place] [place] [address] * Lactate (11/15/2024 4:33 PM CDT) Lactate 1.3 0.7 - 2.0 mmol/L Blood 11/15/2024 4:33 PM CDT 11/15/2024 4:52 PM CDT Jefferson Horvath MD LAB BLOOD ORDERABLES Final R esult Performing Organization Address [facility] Co de Phone Number [facility] [place] [place] [address] * Fibrinogen (11/15/2024 4:33 PM CDT) Pathologist [facility] Fibrinogen 270 170 - 400 mg/dL Blood 11/15/2024 4:33 PM CDT 11/15/2024 4:50 PM CDT Jefferson Horvath MD LAB BLOOD ORDERABLES Final R esult Performing Organization Address [facility] de Phone Number [facility] [place] [address] * Infection Prevention VRE Culture Rectal swab Rectum (11/15/2024 4:33 PM CDT) Report Final Report: Negative Rectal swab (Rectum) 11/15/2024 4:33 PM CDT 11/15/2024 4:44 PM CDT Narrative [facility] - 11/17/2024 7:21 PM CDT Surveillance culture for Infection Prevention purposes only; results indicate colonization, not infection requiring treatment. Testing performed by [facility] ([phone]). us Jefferson Horvath MD LAB MICROBIOLOGY - GENERAL O RDERABLES Final Result Performing Organization Address [facility] Co de Phone Number [facility] [place] [address] * Creatine kinase (CK), total (11/15/2024 12:51 PM CDT) [facility] CK 32 30 - 200 Units/L Blood 11/15/2024 12:5 1 PM CDT 11/15/2024 1:29 PM CDT Jefferson Horvath MD LAB BLOOD ORDERABLES Final R esult Performing Organization Address [facility]/ZIP Co de Phone Number [facility] [place] [address] * Herpes Simplex Virus (HSV) PCR Vaginal (11/15/2024 11:35 AM CDT) [facility] HSV DNA Not Detected Not Detected [facility] Comment: Interpretive Data This assay is performed [...] AM CDT 11/15/2024 12:07 PM CDT Narrative [facility] - 11/15/2024 11:11 PM CDT Labial ulcer Jefferson Horvath MD LAB MICROBIOLOGY - GENERAL O RDERABLES Final Result [facility]ID [facility] [place] [address] [facility] * Herpes Simplex Virus (HSV) PCR Blood (11/15/2024 11:30 AM CDT) HSV DNA Not Detected Not Detected [facility] Comment: Interpretive Data This assay is performed [...] - GENERAL O RDERABLES Final Result DAVID [facility] [place] [address] [facility] * CT Abdomen Pelvis W Contrast (11/15/2024 [...] No suspicious osseous lesion. Procedure Note Celia eGronimo MD - 11/15/2024 EXAMINATION: Computed tomography of [...] it. Electronically signed by: Celia Geronimo M.D. us Jefferson Horvath MD IMG CT PROCEDURES Final Resu lt * Transfuse platelets (11/15/2024 2:29 AM CDT) Marcus Vergara MD BLOOD TRANSFUSION ORDERABLES Fi nal Result Performing Organization Address [facility] Co de Phone Number [facility] [place] [address] * (ABNORMAL) Immature platelet fraction (11/15/2024 1:31 AM CDT) IPF 0.4(L) 1.6 - 10.1 % Blood 11/15/2024 1:31 AM CDT 11/15/2024 1:52 AM CDT Vicente Mandujano MD LAB BLOOD OR DERABLES Final Result Performing Organization Address [facility] Co de Phone Number [facility] [place] [address] * eGFR (11/15/2024 1:31 AM CDT) eGFR [...] OR DERABLES Final Result Performing Organization Address [facility] de Phone Number [facility] [place] [place] [address] * (ABNORMAL) Manual Differential (11/15/2024 1:31 AM CDT) Differential Manual Cells Counted 2 [facility] Neutrophil pct 0.0 % [facility] Comment: Interpretive Data Percent cell count reference ranges are not reported, since discordance with absolute values may lead to misinterpretation of CBC data. Current Interpretive Data was last revised on 2017. Lymphocyte pct 100.0 % [facility] Comment: Interpretive Data Percent cell count reference ranges are not reported, since discordance with absolute values may lead to misinterpretation of CBC data. Current Interpretive Data was last revised on 2017. RBC morphology Present(A) [facility] Anisocytosis Slight(A) [facility] Microcytes 3-7/HPF(A) [facility] Platelet estimate Decreased( A) [facility] Blood 11/15/2024 1:31 AM CDT 11/15/2024 1:46 AM CDT Vicente Mandujano MD LAB BLOOD OR DERABLES Final Result Performing Organization Address [facility] Co de Phone Number [facility] [place] [address] * (ABNORMAL) CBC without differential (11/15/2024 1:31 AM CDT) WBC 0.0(C) 3.8 - 9.9 K/cumm Comment:Consistent with prev ious reported value Hgb 8.1(L) 11.9 - 15.5 g/dL [facility] Hct 23.3(L) 35.6 - 45.5 % [facility] Plt 6(C) 150 - 400 K/cumm [facility] Comment:Critical result call ed to and read back by JAE DAVIS RN on 11 15 2024 at 0202 to Clotilde Caruso. MPV 11.3 9.1 - 12.3 fL [facility] RBC 2.63(L) 3.90 - 5.20 M/cumm [facility] MCV 88.6 81.3 - 96.4 fL [facility] MCH 30.8 27.1 - 33.3 pg [facility] MCHC 34.8 32.3 - 35.7 g/dL [facility] RDW CV 17.5(H) 11.1 - 14.9 % [facility] RDW SD 57.2(H) 35.7 - 48.1 fL [facility] NRBC abs 0.00 0.00 - 0.01 K/cumm [facility] Blood 11/15/2024 1:31 AM CDT 11/15/2024 1:46 AM CDT Vicente Mandujano MD LAB BLOOD OR DERABLES Final Result [facility] Department [place] [place] [address] * Phosphorus (11/15/2024 1:31 AM CDT) [facility] Phosphorus, pl 3.8 2.3 - 4.5 mg/dL Blood 11/15/2024 1:31 AM CDT 11/15/2024 1:46 AM CDT Vicente Mandujano MD LAB BLOOD OR DERABLES Final Result [facility] [place] [address] * Magnesium (11/15/2024 1:31 AM CDT) [facility] Magnesium 1.4 1.4 - 2.5 mg/dL Blood 11/15/2024 1:31 AM CDT 11/15/2024 1:46 AM CDT Vicente Mandujano MD LAB BLOOD OR DERABLES Final Result [facility] [place] [address] * (ABNORMAL) Basic metabolic panel (11/15/2024 1:31 AM CDT) [facility] Sodium 142 135 - 145 mmol/L Potassium, pl 3.2(L) 3.3 - 4.9 mmol/L [facility] Chloride 110 97 - 110 mmol/L [facility] Comment:Repeated and Verifie d CO2 23 22 - 32 mmol/L [facility] Anion gap 9 2 - 15 mmol/L [facility] BUN 11 6 - 25 mg/dL [facility] Creatinine 0.68 0.60 - 1.10 mg/dL [facility] Glucose 116 70 - 199 mg/dL [facility] Comment: Interpretive Data Fasting glucose >/= 126 [...] 2022. Calcium 7.4(L) 8.5 - 10.3 mg/dL [facility] Blood 11/15/2024 1:31 AM CDT 11/15/2024 1:46 AM CDT Narrative [facility] - 11/15/2024 2:20 AM CDT Daily except Saturday and . Morning draw. us Vicente Mandujano MD LAB BLOOD OR DERABLES Final Result Performing Organization Address [facility]/ZIP Co de Phone Number [facility] [place] [address] * (ABNORMAL) Arterial Blood gas w/Lactate POCT (11/15/2024 1:28 AM CDT) Pathologist [facility] Lactate POC i-STAT 2.4(H) 0.7 - 2.0 mmol/L pH POC 7.43 7.35 - 7.45 [facility] pCO2, Art POC 29(L) 35 - 45 mmHg [facility] PO2 POC 38(C) 80 - 105 mmHg [facility] CO2, total POC 20 20 - 30 mmol/L [facility] HCO3, POC 19(L) 21 - 30 mmol/L [facility] BE POC -5(L) -2 - 3 mmol/L [facility] O2 sat POC 75(L) 95 - 98 % [facility] Blood 11/15/2024 1:28 AM CDT 11/15/2024 1:28 AM CDT us Katie Hunter MD PhD LAB BLOOD ORDERABLES F inal Result Performing Organization Address [facility] Co de Phone Number [facility] [place] [address] * (ABNORMAL) Sepsis Lactate w/ Reflex (11/14/2024 10:32 PM CDT) [facility] Sepsis Lactate 3.9(H) 0.7 - 2.0 mmol/L Blood 11/14/2024 10:3 2 PM CDT 11/14/2024 10:56 PM CDT Narrative [facility] - 11/14/2024 11:00 PM CDT Obtain Lactate [...] OR DERABLES Final Result Performing Organization Address [facility] Phone Number [facility] [employer] [place] [address] * (ABNORMAL) aPTT (11/14/2024 10:32 PM CDT) aPTT 19(L) 28 - 38 sec Comment: No clot detected in sample - [id number] - 11/15/24, 1:51 AM Interpretive Data Heparin therapeutic range: 66.0 - 100.0 seconds. Range based on correlation with therapeutic heparin activity range of 0.3 - 0.7 Units/mL. Current interpretive data was last revised on 2023. Blood 11/14/2024 10:3 2 PM CDT 11/14/2024 11:05 PM CDT Vicente Mandujano MD LAB BLOOD OR DERABLES Final Result Performing Organization Address [facility] [place] [address] * (ABNORMAL) Protime-INR (11/14/2024 10:32 PM CDT) PT 14.6(H) 9.7 - 13.0 sec INR 1.34(H) 0.90 - 1.20 [facility] Comment: Interpretive data Oral anticoagulant therapeutic ranges: Venous thromboembolism prophylaxis or treatment: 2.0-3.0 CARDIOLOGY Standard range: 2.0-3.0 High-intensity range: 2.5-3.5 Refer to indication-specific guidelines for appropriate target ranges for prosthetic heart valve replacement. Current interpretive data was last revised on 2019. Blood 11/14/2024 10:3 2 PM CDT 11/14/2024 11:05 PM CDT Vicente Mandujano MD LAB BLOOD OR DERABLES Final Result Performing Organization Address [facility] Co de Phone Number [facility] [place] [place] [address] * (ABNORMAL) Fibrinogen (11/14/2024 10:32 PM CDT) Fibrinogen 153(L) 170 - 400 mg/dL Blood 11/14/2024 10:3 2 PM CDT 11/14/2024 11:05 PM CDT Vicente Mandujano MD LAB BLOOD OR DERABLES Final Result Performing Organization Address [facility] Co de Phone Number [facility] [place] [address] * Uric acid (11/14/2024 10:32 PM CDT) Uric acid 2.7 2.5 - 7.0 mg/dL Blood 11/14/2024 10:3 2 PM CDT 11/14/2024 11:37 PM CDT Vicente Mandujano MD LAB BLOOD OR DERABLES Final Result Performing Organization Address [facility] Co de Phone Number [facility] [place] [address] * Lactate dehydrogenase (LD) (11/14/2024 10:32 PM CDT) Lactate dehydrogenase (LDH) 185 100 - 250 Units/L Blood 11/14/2024 10:3 2 PM CDT 11/14/2024 11:37 PM CDT Vicente Mandujano MD LAB BLOOD OR DERABLES Final Result Performing Organization Address [facility]/ZIP Co de Phone Number [facility] [place] [address] * Prepare platelets: 1 Units (11/14/2024 10:09 PM CDT) [facility] Product code [id number] Unit Number [id number] [facility] Product Blood Type OPOS [facility] Dispense Status PRESUMED TRANSFUSED [facility] Blood Venous blood specimen / Unknown 11/14/2024 10:09 PM CDT 11/14/2024 10:08 PM CDT Narrative [facility] - 11/15/2024 4:01 PM CDT Are special requirements needed? (all products are leukoreduced)->Yes Date required:-[id number] Special Req 1:-Irradiated PLT # of Units:-1-Units Reasons:-Stable, non-bleeding, plt < 10 K/cumm} Marcus Vergara MD BLOOD BANK PRODUCT ORDERABLES F inal Result Performing Organization Address [facility] Co de Phone Number [facility] [place] [address] * ECG 12 lead (11/14/2024 8:18 PM CDT) [facility] Ventricular Rate EKG/Min 107 BPM [facility] Atrial Rate 107 BPM [facility] GA-Interval (MSEC) 142 ms [facility] QRS-Interval (MSEC) 86 ms [facility] QT-Interval (MSEC) 370 ms [facility] QTc 493 ms [facility] P [place] 80 degrees [facility] R [place] 71 degrees [facility] T [place] 63 degrees [facility] Diagnosis Sinus tachycardia Otherwise normal ECG Confirmed by Miguel May MD ([id number]) on 11/17/2024 6:40:07 AM [facility] 11/14/2024 8:18 PM CDT 11/17/2024 6:40 AM CDT Vicente Mandujano MD ECG ORDERABL ES Final Result [facility] * XR Chest 1 View (11/14/2024 7:27 [...] signed by: Blayne Swartz M.D. Olivia Barboza [facility] IMG XR PROCEDURES Final Result * (ABNORMAL) POC Blood Gas and Chemistries, Arterial - (11/14/2024 6:58 PM CDT) Lactate, POC 4.4(C) 0.7 - 2.0 mmol/L Blood 11/14/2024 6:58 PM CDT 11/14/2024 6:58 PM CDT Vicente Mandujano MD LAB POCT ORD ERABLES - DEVICE Final Result [facility] [place] [address] * Immature platelet fraction (11/14/2024 6:49 PM CDT) IPF 1.9 1.6 - 10.1 % Blood 11/14/2024 6:49 PM CDT 11/14/2024 7:20 PM CDT Olivia Barboza LAB BLOOD ORDERABLES Final Resul t Performing Organization Address [facility] Co de Phone Number [facility] [employer] [place] [address] * eGFR (11/14/2024 6:49 PM CDT) Pathologist [facility] eGFR 82 >=60 mL/min/1. 73 m2 Comment: [...] CDT 11/14/2024 7:15 PM CDT Olivia Barboza [facility] LAB BLOOD ORDERABLES Final Resul t [facility]ID [facility] [place] [address] * (ABNORMAL) Differential, auto (11/14/2024 6:49 PM CDT) Neutrophil abs 0.0(L) 1.5 - 6.5 K/cumm Comment:Critical result call ed to and read back by SURJIT MARTINEZ RN on 11 14 2024 at 1958 to Grey Do. Imm gran abs 0.0 0.0 - 0.1 K/cumm [facility] Lymphocyte abs 0.0(L) 0.8 - 3.3 K/cumm [facility] Monocyte abs 0.0(L) 0.2 - 0.8 K/cumm [facility] Eosinophil abs 0.0 0.0 - 0.5 K/cumm [facility] Basophil abs 0.0 0.0 - 0.1 K/cumm [facility] Neutrophil pct 0.0 % [facility] Comment: Interpretive Data Percent cell count reference ranges are not reported, since discordance with absolute values may lead to misinterpretation of CBC data. Current Interpretive Data was last revised on 2017. Imm gran pct 0.0 % [facility] Comment: Interpretive Data Percent cell count reference ranges are not reported, since discordance with absolute values may lead to misinterpretation of CBC data. Current Interpretive Data was last revised on 2017. Lymphocyte pct 100.0 % [facility] Comment: Interpretive Data Percent cell count reference ranges are not reported, since discordance with absolute values may lead to misinterpretation of CBC data. Current Interpretive Data was last revised on 2017. Monocyte pct 0.0 % [facility] Comment: Interpretive Data Percent cell count reference ranges are not reported, since discordance with absolute values may lead to misinterpretation of CBC data. Current Interpretive Data was last revised on 2017. Eosinophil pct 0.0 % [facility] Comment: Interpretive Data Percent cell count reference ranges are not reported, since discordance with absolute values may lead to misinterpretation of CBC data. Current Interpretive Data was last revised on 2017. Basophil pct 0.0 % [facility] Comment: Interpretive Data Percent cell count reference ranges are not reported, since discordance with absolute values may lead to misinterpretation of CBC data. Current Interpretive Data was last revised on 2017. Blood 11/14/2024 6:49 PM CDT 11/14/2024 7:15 PM CDT Olivia Barboza [facility] LAB BLOOD ORDERABLES Final Resul t Performing Organization Address [facility]/ZIP Co de Phone Number [facility] [place] [address] * (ABNORMAL) Urinalysis reflex to microscopic and culture Urine (11/14/2024 6:49 PM CDT) Color, ur Straw Yellow Clarity, ur Clear Clear [facility] Specific gravity, ur 1.013 1.003 - 1.030 [facility] pH, urine 6.5 [facility] Comment: Interpretive Data U rine pH is affected by diet, medications, systemic acid-base disturbances, and renal tubular function. pH may affect urinary stone formation. For example, urine pH below 6.0 may help reduce the tendency for calcium phosphate stones and pH greater than 6.0 may reduce the tendency for uric acid stone formation. Source: [facility] Current Interpretive Data was last revised on 2017 Protein, ur ql Negative Negative [facility] Glucose, ur ql Negative Negative [facility] Ketones, ur Negative Negative [facility] Bilirubin, ur Negative Negative [facility] Blood, ur 1+(A) Negative [facility] Urobilinogen, ur <2.0 <2.0 mg/dL [facility] Nitrite, ur Negative Negative [facility] Leukocyte esterase, ur Negative Negative [facility] UA reflex comment Reflex to microscopic UA will be performed. [facility] Urine 11/14/2024 6:49 PM CDT 11/14/2024 7:27 PM CDT Olivia Barboza [facility] LAB MICROBIOLOGY - GENERAL ORDER DAWSON Final Result [facility] [place] [address] * Respiratory pathogen panel Nasopharyngeal (11/14/2024 6:49 PM CDT) Pathologist [facility] Influenza A RNA Not Detected Not Detected Influenza B RNA Not Detected Not Detected [facility] RSV RNA Not Detected Not Detected [facility] COVID-19 RNA Not Detected Not Detected [facility] Coronavirus 229E RNA Not Detected Not Detected [facility] Coronavirus HKU1 RNA Not Detected Not Detected [facility] Coronavirus NL63 RNA Not Detected Not Detected [facility] Coronavirus OC43 RNA Not Detected Not Detected [facility] Adenovirus DNA Not Detected Not Detected [facility] Metapneumovirus RNA Not Detected Not Detected [facility] Rhinovirus/Enterov irus RNA Not Detected Not Detected [facility] Parainfluenza 1 RNA Not Detected Not Detected [facility] Parainfluenza 2 RNA Not Detected Not Detected [facility] Parainfluenza 3 RNA Not Detected Not Detected [facility] Parainfluenza 4 RNA Not Detected Not Detected [facility] B. pertussis DNA Not Detected Not Detected [facility] B. parapertussis DNA Not Detected Not Detected [facility] C. pneumoniae DNA Not Detected Not Detected [facility] M. pneumoniae DNA Not Detected Not Detected [facility] Nasopharyngeal 11/14/2024 6: 49 PM CDT 11/14/2024 7:09 PM CDT Narrative [facility] - 11/14/2024 8:08 PM CDT Is the Patient experiencing symptoms consistent with COVID?->Yes Surveillance testing for transplant patient?->No Interpretive Data The Intcomex FilmArray Respiratory Panel (RP2.1) assay is a [...] assay has FDA clearance for testing of [facility] swabs. The performance of additional specimen types has been assessed by the performing laboratory. The performance characteristics of this assay have been determined by [facility] Molecular Infectious Disease Laboratory. Current interpretive data was last revised on 22. Olivia Barboza [facility] LAB MICROBIOLOGY - GENERAL ORDER DAWSON Final Result [facility] [place] [address] * (ABNORMAL) CBC with auto differential (11/14/2024 6:49 PM CDT) WBC 0.0(C) 3.8 - 9.9 K/cumm Comment:Critical result call ed to and read back by SURJIT MARTINEZ RN on 11 14 2024 at 1958 to Grey Kolb. Hgb 9.8(L) 11.9 - 15.5 g/dL [facility] Hct 27.7(L) 35.6 - 45.5 % [facility] Plt 9(C) 150 - 400 K/cumm [facility] Comment:Critical result call ed to and read back by SURJIT MARTINEZ RN on 11 14 2024 at 1958 to Grey Kolb. MPV 11.1 9.1 - 12.3 fL [facility] RBC 3.17(L) 3.90 - 5.20 M/cumm [facility] MCV 87.4 81.3 - 96.4 fL [facility] MCH 30.9 27.1 - 33.3 pg [facility] MCHC 35.4 32.3 - 35.7 g/dL [facility] RDW CV 17.3(H) 11.1 - 14.9 % [facility] RDW SD 54.9(H) 35.7 - 48.1 fL [facility] NRBC abs 0.00 0.00 - 0.01 K/cumm [facility] Blood 11/14/2024 6:49 PM CDT 11/14/2024 7:15 PM CDT us Olivia Barboza NP LAB BLOOD ORDERABLES Final Resul t [facility] [place] [address] * (ABNORMAL) Blood culture Blood (11/14/2024 6:49 PM CDT) Direct Specimen Exam Molecular Analysis: Pseudomonas aeruginosa detected by rosemary [facility] BCID-GN panel. This test does not exclude the possibility of a mixed bacterial infection. Notification of: Pseudomonas aeruginosa called to and read back by: Katie Hunter MD [phone] on 11/15/2024 14:19:46 by: Brittany Sanchez MT Direct Specimen Exam Stain: Gram Negative Bacilli Time to culture positivity (aerobic media): 15.4 hours Notification of: Gram Negative Bacilli called to and read back by: Katie Hunter MD [phone] on 11/15/2024 12:33:02 by: Brittany Sanchez MT [facility] Report Final Report: Pseudomonas aeruginosa (.) [facility] Organism PSEUDOMONAS AERUGINOSA [facility] Blood 11/14/2024 6:49 PM CDT 11/14/2024 8:14 PM CDT Narrative [facility] - 11/19/2024 12:42 PM CDT 1. Blood [...] performance characteristics have been verified by the [facility] Microbiology Laboratory. For questions about this culture, contact the Microbiology Laboratory at [phone]. Interpretive data was last revised on 24. Organism Antibiotic Method Susceptibility Pseudomonas aeruginosa Aztreonam INTERPRETATION Susceptible Pseudomonas aeruginosa Ceftazidime INTERPRETATION Susceptible Pseudomonas aeruginosa Ciprofloxacin INTERPRETATION Susceptible Pseudomonas aeruginosa Cefepime INTERPRETATION Susceptible Pseudomonas aeruginosa Imipenem INTERPRETATION Susceptible Pseudomonas aeruginosa Meropenem INTERPRETATION Susceptible Pseudomonas aeruginosa Piperacillin/Tazobactam INTERPR ETATION Susceptible Pseudomonas aeruginosa Tobramycin INTERPRETATION Susceptible us Olviia Barboza NP LAB MICROBIOLOGY - GENERAL ORDER DAWSON Final Result [facility] [place] [address] * Blood culture Blood (11/14/2024 6:49 PM CDT) Report Final Report: No growth Blood 11/14/2024 6:49 PM CDT 11/14/2024 8:14 PM CDT Narrative [facility] - 11/19/2024 7:00 AM CDT 1. Blood [...] performance characteristics have been verified by the [facility] Microbiology Laboratory. For questions about this culture, contact the Microbiology Laboratory at [phone]. Interpretive data was last revised on 24. Olivia Barboza NP LAB MICROBIOLOGY - GENERAL ORDER DAWSON Final Result [facility] [place] [address] * (ABNORMAL) Urinalysis, microscopic only (11/14/2024 6:49 PM CDT) WBC, ur 0-5 0 - 5 /HPF RBC, ur 3-5(A) 0 - 2 /HPF [facility] Epithelial cells, squamous, ur 1-5 0 - 5 /HPF [facility] Mucous, ur Present(A) [facility] Culture Reflex Comment Reflex conditions for urine culture (WBC >10) not met. [facility] Urine 11/14/2024 6:49 PM CDT 11/14/2024 7:27 PM CDT Olivia GeoPageter [facility] LAB URINE ORDERABLES Final Resul t Performing Organization Address [facility] [place] [address] * Type and screen (11/14/2024 6:49 PM CDT) ABO Rh A Positive Bing, indirect Negative [facility] Blood 11/14/2024 6:49 PM CDT 11/14/2024 7:08 PM CDT Narrative [facility] - 11/14/2024 7:58 PM CDT Has the patient had Daratumumab or Isatuximab in the past 6 months?->Unknown Olivia GeoPageter [facility] LAB BLOOD BANK TEST ORDERABLES F inal Result Performing Organization Address [facility] Co de Phone Number [facility] [place] [address] * Phosphorus (11/14/2024 6:49 PM CDT) Phosphorus, pl 2.4 2.3 - 4.5 mg/dL Blood 11/14/2024 6:49 PM CDT 11/14/2024 7:15 PM CDT Olivia GeoPageter [facility] LAB BLOOD ORDERABLES Final Resul t Performing Organization Address [facility] Co de Phone Number [facility] [place] [address] * Magnesium (11/14/2024 6:49 PM CDT) Magnesium 1.4 1.4 - 2.5 mg/dL Blood 11/14/2024 6:49 PM CDT 11/14/2024 7:15 PM CDT Olivia Vester [facility] LAB BLOOD ORDERABLES Final Resul t Performing Organization Address [facility] Co de Phone Number [facility] [place] [address] * (ABNORMAL) Bilirubin, direct (11/14/2024 6:49 PM CDT) Bilirubin, direct 0.5(H) 0.1 - 0.3 mg/dL Blood 11/14/2024 6:49 PM CDT 11/14/2024 7:15 PM CDT Olivia Barboza NP LAB BLOOD ORDERABLES Final Resul t Performing Organization Address [facility] de Phone Number [facility] [place] [address] * (ABNORMAL) Comprehensive metabolic panel (11/14/2024 6:49 PM CDT) [facility] Sodium 137 135 - 145 mmol/L Potassium, pl 3.4 3.3 - 4.9 mmol/L [facility] Chloride 99 97 - 110 mmol/L [facility] Comment:Repeated and Verifie d CO2 24 22 - 32 mmol/L [facility] Anion gap 14 2 - 15 mmol/L [facility] BUN 12 6 - 25 mg/dL [facility] Creatinine 0.82 0.60 - 1.10 mg/dL [facility] Glucose 121 70 - 199 mg/dL [facility] Comment: Interpretive Data Fasting glucose >/= 126 [...] 2022. Calcium 8.8 8.5 - 10.3 mg/dL [facility] Bilirubin, total 1.8(H) 0.1 - 1.2 mg/dL [facility] Protein, pl 6.1(L) 6.5 - 8.5 g/dL [facility] Albumin 3.7 3.5 - 5.0 g/dL [facility] Alk phos 152(H) 40 - 130 Units/L [facility] ALT 35 7 - 45 Units/L [facility] AST 25 10 - 45 Units/L [facility] Blood 11/14/2024 6:49 PM CDT 11/14/2024 7:15 PM CDT us Olivia Barboza NP LAB BLOOD ORDERABLES Final Resul t [facility] [place] [address] * eGFR (11/13/2024 8:34 AM CDT) eGFR [...] 8:34 AM CDT 11/13/2024 8:39 AM CDT us Vicente Mandujano MD LAB BLOOD OR DERABLES Final Result [facility] [place] [address] * (ABNORMAL) CBC with auto differential (11/13/2024 8:34 AM CDT) WBC 0.1(C) 3.8 - 9.9 K/cumm Comment: Critical Result WBC:0.1 Called to and read back by TREV FRANCES RN at: 11/13/2024 10:40:17 by: Testing performed by: [facility], [address] [place] [address] Hgb 10.4(L) 11.9 - 15.5 g/dL [facility] Comment:Testing performed by : [facility], [address] [place] [address] Hct 30.4(L) 35.6 - 45.5 % [facility] Comment:Testing performed by : [facility], [address] [place] [address] Plt 24(L) 150 - 400 K/cumm [facility] Comment:Testing performed by : [facility], [address] [place] [address] MPV 7.3 6.8 - 10.4 fL [facility] Comment:Testing performed by : [facility], [address] [place] [address] RBC 3.31(L) 3.90 - 5.20 M/cumm [facility] Comment:Testing performed by : [facility], [address] [place] [address] MCV 91.7 81.3 - 96.4 fL [facility] Comment:Testing performed by : [facility], [address] [place] [address] MCH 31.3 27.1 - 33.3 pg [facility] Comment:Testing performed by : [facility], [address] [place] [address] MCHC 34.2 32.3 - 35.7 g/dL DAVID GARCÍA Comment:Testing performed by : [facility], [address] [place], [place] [phone] RDW CV 20.3(H) 11.1 - 14.9 % DAVID GARCÍA Comment:Testing performed by : [facility], [address] [place] [address] NRBC abs n/a 0.00 - 0.01 K/cumm DAVID GARCÍA Comment:Testing performed by : [facility], [address] [place], [place] [phone] Blood 11/13/2024 8:34 AM CDT 11/13/2024 8:37 AM CDT Vicente Mandujano MD LAB BLOOD OR DERABLES Final Result [facility] Department of Laboratories [place] [id number] * (ABNORMAL) Manual Differential (11/13/2024 8:34 AM CDT) Cells Counted 25 Comment:Testing performed by : [facility], [address] [place], [place] [phone] Neutrophil abs 0.1(L) 1.5 - 6.5 K/cumm DAVID GARCÍA Comment:Testing performed by : [facility], [address] [place], [place] [phone] Lymphocyte abs 0.0(L) 0.8 - 3.3 K/cumm DAVID GARCÍA Comment:Testing performed by : [facility], [address] [place] [address] Monocyte abs 0.0(L) 0.2 - 0.8 K/cumm DAVID GARCÍA Comment:Testing performed by : [facility], [address] [place] [address] Eosinophil abs 0.0 0.0 - 0.5 K/cumm DAVID GARCÍA Comment:Testing performed by : [facility], [address] [place] [phone] Basophil abs 0.0 0.0 - 0.1 K/cumm [facility] Comment:Testing performed by : [facility], [address] [place] [phone] Neutrophil pct 56.0 % [facility] Comment: Interpretive Data Percent cell count reference ranges are not reported, since discordance with absolute values may lead to misinterpretation of CBC data. Current Interpretive Data was last revised on 2017. Testing performed by: [facility], [address] [place] [phone] Lymphocyte pct 40.0 % [facility] Comment: Interpretive Data Percent cell count reference ranges are not reported, since discordance with absolute values may lead to misinterpretation of CBC data. Current Interpretive Data was last revised on 2017. Testing performed by: [facility], [address] [place] [phone] Monocyte pct 0.0 % [facility] Comment: Interpretive Data Percent cell count reference ranges are not reported, since discordance with absolute values may lead to misinterpretation of CBC data. Current Interpretive Data was last revised on 2017. Testing performed by: [facility], [address] [place] [phone] Eosinophil pct 4.0 % [facility] Comment: Interpretive Data Percent cell count reference ranges are not reported, since discordance with absolute values may lead to misinterpretation of CBC data. Current Interpretive Data was last revised on 2017. Testing performed by: [facility], [address] [place] [phone] Basophil pct 0.0 % [facility] Comment: Interpretive Data Percent cell count reference ranges are not reported, since discordance with absolute values may lead to misinterpretation of CBC data. Current Interpretive Data was last revised on 2017. Testing performed by: [facility], [address] [place] [phone] Anisocytosis 1+(A) [facility] Comment:Testing performed by : [facility], [address] [place] [phone] Poikilocytosis 1+(A) [facility] Comment:Testing performed by : [facility], [address] [place], [place] [phone] Macrocytes 1+(A) [facility] Comment:Testing performed by : [facility], [address] [place], [place] [phone] Elliptocytes 1+(A) [facility] Comment:Testing performed by : [facility], [address] [place], [place] [phone] Platelet estimate Decreased (A) [facility] Comment:Testing performed by : [facility], [address] [place], [place] [phone] Blood 11/13/2024 8:34 AM CDT 11/13/2024 8:37 AM CDT Vicente Mandujano MD LAB BLOOD OR DERABLES Final Result Performing Organization Address City/[facility]/ZIP Co de Phone Number [facility] [place] [address] * Type and screen (11/13/2024 8:34 AM CDT) Pathologist [facility] ABO Rh A Positive Bing, indirect Negative [facility] Blood 11/13/2024 8:34 AM CDT 11/13/2024 9:09 AM CDT Narrative [facility] - 11/13/2024 10:08 AM CDT Has the patient had Daratumumab or Isatuximab in the past 6 months?->No Vicente Mandujano MD LAB BLOOD BA NK TEST ORDERABLES Final Result Performing Organization Address City/[facility]/ZIP Co de Phone Number [facility] [place] [address] * Uric acid (11/13/2024 8:34 AM CDT) [facility] Uric acid 2.7 2.5 - 7.0 mg/dL Blood 11/13/2024 8:34 AM CDT 11/13/2024 8:39 AM CDT Vicente Mandujano MD LAB BLOOD OR DERABLES Final Result Performing Organization Address City/[facility]/ZIP Co de Phone Number [facility] [place] [address] * Lactate dehydrogenase (LD) (11/13/2024 8:34 AM CDT) [facility] Lactate dehydrogenase (LDH) 247 100 - 250 Units/L Blood 11/13/2024 8:34 AM CDT 11/13/2024 8:39 AM CDT Vicente Mandujano MD LAB BLOOD OR DERABLES Final Result Performing Organization Address City/[facility] Co de Phone Number [facility] [place] [employer] [place] [address] * (ABNORMAL) Comprehensive metabolic panel (11/13/2024 8:34 AM CDT) [facility] Sodium 142 135 - 145 mmol/L Potassium, pl 3.3 3.3 - 4.9 mmol/L [facility] Chloride 106 97 - 110 mmol/L [facility] CO2 25 22 - 32 mmol/L [facility] Anion gap 11 2 - 15 mmol/L [facility] BUN 13 6 - 25 mg/dL [facility] Creatinine 0.72 0.60 - 1.10 mg/dL [facility] Glucose 96 70 - 199 mg/dL [facility] Comment: Interpretive Data Fasting glucose >/= 126 [...] 2022. Calcium 8.6 8.5 - 10.3 mg/dL [facility] Bilirubin, total 2.2(H) 0.1 - 1.2 mg/dL [facility] Protein, pl 5.8(L) 6.5 - 8.5 g/dL [facility] Albumin 3.6 3.5 - 5.0 g/dL [facility] Alk phos 144(H) 40 - 130 Units/L [facility] ALT 28 7 - 45 Units/L [facility] AST 27 10 - 45 Units/L [facility] Blood 11/13/2024 8:34 AM CDT 11/13/2024 8:39 AM CDT Vicente Mandujano MD LAB BLOOD OR DERABLES Final Result [facility] [place] [address] * Transfuse RBC (11/11/2024 6:11 AM CDT) Blood Marcus Vergara MD BLOOD TRANSFUSION ORDERABLES Fi nal Result Performing Organization Address City/[facility]/ZIP Co de Phone Number [facility] [place] [address] * Prepare RBC: 1 Units (11/11/2024 1:51 AM CDT) [facility] Product code [id number] Unit Number [id number] [facility] Product Blood Type APOS [facility] Dispense Status PRESUMED TRANSFUSED [facility] Blood Venous blood specimen / Unknown 11/11/2024 1:51 AM CDT 11/11/2024 1:50 AM CDT Narrative [facility] - 11/11/2024 4:01 PM CDT Are special requirements needed? (All products are leukoreduced and CMV- safe)- >Yes Date required:-[id number] Special Req 1:-Irradiated LRRBC # of [id number] Reasons:-BMT, Hgb <8 g/dL} Marcus Vergara MD BLOOD BANK PRODUCT ORDERABLES F inal Result Performing Organization Address [facility] Co de Phone Number [facility] [place] [address] * eGFR (11/11/2024 12:40 AM CDT) eGFR >90 >=60 mL/min/1. 73 [...] ORDERA BLES Final Result Performing Organization Address [facility] Co de Phone Number [facility] [place] [address] * (ABNORMAL) Manual Differential (11/11/2024 12:40 AM CDT) [facility] Differential Manual Cells Counted 115 [facility] Neutrophil abs 4.8 1.5 - 6.5 K/cumm [facility] Imm gran abs 0.0 0.0 - 0.1 K/cumm [facility] Lymphocyte abs 0.0(L) 0.8 - 3.3 K/cumm [facility] Monocyte abs 0.0(L) 0.2 - 0.8 K/cumm [facility] Neutrophil pct 100.0 % [facility] Comment: Interpretive Data Percent cell count reference ranges are not reported, since discordance with absolute values may lead to misinterpretation of CBC data. Current Interpretive Data was last revised on 2017. RBC morphology Normal [facility] Platelet estimate Decreased( A) [facility] Blood 11/11/2024 12:4 0 AM CDT 11/11/2024 1:13 AM CDT Mervat Garber MD LAB BLOOD ORDERA BLES Edited Result - Final [facility] [place] [address] * (ABNORMAL) CBC without differential (11/11/2024 12:40 AM CDT) [facility] WBC 4.8 3.8 - 9.9 K/cumm Hgb 7.6(L) 11.9 - 15.5 g/dL [facility] Hct 23.1(L) 35.6 - 45.5 % [facility] Plt 76(L) 150 - 400 K/cumm [facility] MPV 9.7 9.1 - 12.3 fL [facility] RBC 2.48(L) 3.90 - 5.20 M/cumm [facility] MCV 93.1 81.3 - 96.4 fL [facility] MCH 30.6 27.1 - 33.3 pg [facility] MCHC 32.9 32.3 - 35.7 g/dL [facility] RDW CV 19.7(H) 11.1 - 14.9 % [facility] RDW SD 66.2(H) 35.7 - 48.1 fL [facility] NRBC abs 0.00 0.00 - 0.01 K/cumm [facility] Blood 11/11/2024 12:4 0 AM CDT 11/11/2024 1:13 AM CDT Mervat Garber MD LAB BLOOD ORDERA BLES Final Result Performing Organization Address City/[facility]/ZIP Co de Phone Number [facility] [place] [address] * Phosphorus (11/11/2024 12:40 AM CDT) Pathologist [facility] Phosphorus, pl 3.3 2.3 - 4.5 mg/dL Blood 11/11/2024 12:4 0 AM CDT 11/11/2024 1:12 AM CDT Mervat Garber MD LAB BLOOD ORDERA BLES Final Result Performing Organization Address City/[facility] Co de Phone Number [facility] [place] [address] * Magnesium (11/11/2024 12:40 AM CDT) [facility] Magnesium 1.6 1.4 - 2.5 mg/dL Blood 11/11/2024 12:4 0 AM CDT 11/11/2024 1:12 AM CDT Ying José MD LAB BLOOD ORDERABLES Final Result Performing Organization Address [facility] Co de Phone Number [facility] [place] [address] * (ABNORMAL) Hepatic function panel (11/11/2024 12:40 AM CDT) [facility] Bilirubin, total 1.5(H) 0.1 - 1.2 mg/dL Bilirubin, direct 0.4(H) 0.1 - 0.3 mg/dL [facility] Protein, pl 4.8(L) 6.5 - 8.5 g/dL [facility] Albumin 2.7(L) 3.5 - 5.0 g/dL [facility] Alk phos 149(H) 40 - 130 Units/L [facility] ALT 22 7 - 45 Units/L [facility] AST 21 10 - 45 Units/L [facility] Blood 11/11/2024 12:4 0 AM CDT 11/11/2024 1:12 AM CDT Mervat Garber MD LAB BLOOD ORDERA BLES Final Result [facility] [place] [address] * (ABNORMAL) Basic metabolic panel (11/11/2024 12:40 AM CDT) Pathologist [facility] Sodium 144 135 - 145 mmol/L Potassium, pl 3.3 3.3 - 4.9 mmol/L [facility] Chloride 111(H) 97 - 110 mmol/L [facility] CO2 24 22 - 32 mmol/L [facility] Anion gap 9 2 - 15 mmol/L [facility] BUN 12 6 - 25 mg/dL [facility] Creatinine 0.56(L) 0.60 - 1.10 mg/dL [facility] Glucose 87 70 - 199 mg/dL [facility] Comment: Interpretive Data Fasting glucose >/= 126 [...] classification and Diagnosis of Diabetes Diabetes Care 2022; 46: S19-S40. Current interpretive data was last revised 2022. Calcium 7.6(L) 8.5 - 10.3 mg/dL DAVID GARCÍA Blood 11/11/2024 12:4 0 AM CDT 11/11/2024 1:12 AM CDT Narrative DAVID GARCÍA - 11/11/2024 1:55 AM CDT Daily except Saturday and . Morning draw. us Mervat Garber MD LAB BLOOD ORDERA BLES Final Result [facility] [place] [address] * eGFR (11/10/2024 12:22 AM CDT) eGFR [...] LAB BLOOD ORDERA BLES Final Result DAVID GARCÍA [facility] [place] [address] * (ABNORMAL) Manual Differential (11/10/2024 12:22 AM CDT) Differential Manual Cells Counted 115 [facility] Neutrophil abs 18.5(H) 1.5 - 6.5 K/cumm [facility] Imm gran abs 0.0 0.0 - 0.1 K/cumm [facility] Lymphocyte abs 0.2(L) 0.8 - 3.3 K/cumm [facility] Monocyte abs 0.0(L) 0.2 - 0.8 K/cumm [facility] Neutrophil pct 99.1 % [facility] Comment: Interpretive Data Percent cell count reference ranges are not reported, since discordance with absolute values may lead to misinterpretation of CBC data. Current Interpretive Data was last revised on 2017. Lymphocyte pct 0.9 % [facility] Comment: Interpretive Data Percent cell count reference ranges are not reported, since discordance with absolute values may lead to misinterpretation of CBC data. Current Interpretive Data was last revised on 2017. RBC morphology Present(A) [facility] Anisocytosis Slight(A) [facility] Macrocytes 3-7/HPF(A) [facility] Platelet estimate Decreased( A) [facility] Blood 11/10/2024 12:2 2 AM CDT 11/10/2024 12:32 AM CDT Mervat Garber MD LAB BLOOD ORDERA BLES Edited Result - Final DAVID GARCÍA [facility] [place] [address] * (ABNORMAL) CBC without differential (11/10/2024 12:22 AM CDT) WBC 18.7(H) 3.8 - 9.9 K/cumm Hgb 8.2(L) 11.9 - 15.5 g/dL [facility] Hct 24.8(L) 35.6 - 45.5 % [facility] Plt 120(L) 150 - 400 K/cumm [facility] MPV 9.8 9.1 - 12.3 fL [facility] RBC 2.71(L) 3.90 - 5.20 M/cumm [facility] MCV 91.5 81.3 - 96.4 fL [facility] MCH 30.3 27.1 - 33.3 pg [facility] MCHC 33.1 32.3 - 35.7 g/dL [facility] RDW CV 19.9(H) 11.1 - 14.9 % [facility] RDW SD 65.1(H) 35.7 - 48.1 fL [facility] NRBC abs 0.00 0.00 - 0.01 K/cumm [facility] Blood 11/10/2024 12:2 2 AM CDT 11/10/2024 12:32 AM CDT Mervat Garber MD LAB BLOOD ORDERA BLES Final Result [facility] Department [place] [place] [address] * Phosphorus (11/10/2024 12:22 AM CDT) Phosphorus, pl 3.1 2.3 - 4.5 mg/dL Blood 11/10/2024 12:2 2 AM CDT 11/10/2024 12:32 AM CDT Mervat Garber MD LAB BLOOD ORDERA BLES Final Result [facility] [place] [place] [address] * (ABNORMAL) Hepatic function panel (11/10/2024 12:22 AM CDT) Bilirubin, total 1.0 0.1 - 1.2 mg/dL Bilirubin, direct 0.3 0.1 - 0.3 mg/dL [facility] Protein, pl 4.8(L) 6.5 - 8.5 g/dL [facility] Albumin 2.9(L) 3.5 - 5.0 g/dL [facility] Alk phos 167(H) 40 - 130 Units/L [facility] ALT 28 7 - 45 Units/L [facility] AST 26 10 - 45 Units/L [facility] Blood 11/10/2024 12:2 2 AM CDT 11/10/2024 12:32 AM CDT Mervat Garber MD LAB BLOOD ORDERA BLES Final Result [facility] [place] [address] * (ABNORMAL) Basic metabolic panel (11/10/2024 12:22 AM CDT) [facility] Sodium 143 135 - 145 mmol/L Potassium, pl 3.3 3.3 - 4.9 mmol/L [facility] Chloride 110 97 - 110 mmol/L [facility] CO2 26 22 - 32 mmol/L [facility] Anion gap 7 2 - 15 mmol/L [facility] BUN 13 6 - 25 mg/dL [facility] Creatinine 0.69 0.60 - 1.10 mg/dL [facility] Glucose 90 70 - 199 mg/dL [facility] Comment: Interpretive Data Fasting glucose >/= 126 [...] 2022. Calcium 7.5(L) 8.5 - 10.3 mg/dL [facility] Blood 11/10/2024 12:2 2 AM CDT 11/10/2024 12:32 AM CDT Narrative [facility] - 11/10/2024 1:03 AM CDT Daily except Saturday and . Morning draw. us Mervat Garber MD LAB BLOOD ORDERA BLES Final Result Performing Organization Address City/[facility]/ZIP Co de Phone Number [facility] [place] [address] * eGFR (11/09/2024 3:29 PM CDT) Pathologist [facility] eGFR >90 >=60 mL/min/1. 73 m2 Comment: [...] 3:29 PM CDT 11/09/2024 3:45 PM CDT us Vicente Mandujano MD LAB BLOOD OR DERABLES Final Result Performing Organization Address City/[facility]/ZIP Co de Phone Number [facility] Department [place] [employer] [place] [address] * Uric acid (11/09/2024 3:29 PM CDT) [facility] Uric acid 2.9 2.5 - 7.0 mg/dL Blood 11/09/2024 3:29 PM CDT 11/09/2024 3:45 PM CDT Narrative [facility] - 11/09/2024 4:15 PM CDT Tumor lysis syndrome labs. Vicente Mandujano MD LAB BLOOD OR DERABLES Final Result [facility] [place] [address] * Phosphorus (11/09/2024 3:29 PM CDT) [facility] Phosphorus, pl 2.8 2.3 - 4.5 mg/dL Blood 11/09/2024 3:29 PM CDT 11/09/2024 3:45 PM CDT Narrative [facility] - 11/09/2024 4:15 PM CDT Tumor lysis syndrome labs. Vicente Mandujano MD LAB BLOOD OR DERABLES Final Result Performing Organization Address City/[facility]/ZIP Co de Phone Number [facility] [place] [address] * (ABNORMAL) Basic metabolic panel (11/09/2024 3:29 PM CDT) [facility] Sodium 142 135 - 145 mmol/L Potassium, pl 3.6 3.3 - 4.9 mmol/L [facility] Chloride 109 97 - 110 mmol/L [facility] CO2 26 22 - 32 mmol/L [facility] Anion gap 7 2 - 15 mmol/L [facility] BUN 14 6 - 25 mg/dL [facility] Creatinine 0.57(L) 0.60 - 1.10 mg/dL [facility] Glucose 123 70 - 199 mg/dL [facility] Comment: Interpretive Data Fasting glucose >/= 126 [...] 2022. Calcium 7.9(L) 8.5 - 10.3 mg/dL [facility] Blood 11/09/2024 3:29 PM CDT 11/09/2024 3:45 PM CDT Narrative [facility] - 11/09/2024 4:15 PM CDT Tumor lysis syndrome labs. Vicente Mandujano MD LAB BLOOD OR DERABLES Final Result [facility] [place] [address] * XR Chest 1 View (11/09/2024 10:39 [...] signed by: Bj Kay M.D. us Adrian oFnseca MD IMG XR PROCEDURES Fin al Result * ECG 12 lead (11/09/2024 8:31 AM CDT) Ventricular Rate EKG/Min 57 BPM [facility] Atrial Rate 57 BPM [facility] GA-Interval (MSEC) 134 ms [facility] QRS-Interval (MSEC) 88 ms [facility] QT-Interval (MSEC) 454 ms [facility] QTc 441 ms [facility] P [place] 80 degrees [facility] R [place] 57 degrees [facility] T [place] 66 degrees [facility] Diagnosis Sinus bradycardia Otherwise normal ECG Confirmed by Lalo COOL, [facility] ([id number]) on 11/11/2024 8:53:16 AM [facility] 11/09/2024 8:31 AM CDT 11/11/2024 8:53 AM CDT us Mervat Garber MD ECG ORDERABLES Final Result [facility] * eGFR (11/09/2024 8:05 AM CDT) eGFR [...] LAB BLOOD OR DERABLES Final Result [facility] [place] [address] * Uric acid (11/09/2024 8:05 AM CDT) Uric acid 3.1 2.5 - 7.0 mg/dL Blood 11/09/2024 8:05 AM CDT 11/09/2024 8:11 AM CDT Narrative [facility] 11/09/2024 9:08 AM CDT Tumor lysis syndrome labs. Vicente Mandujano MD LAB BLOOD OR DERABLES Final Result Performing Organization Address [facility] Co de Phone Number [facility] Department [place] [employer] [place] [address] * Phosphorus (11/09/2024 8:05 AM CDT) Phosphorus, pl 3.4 2.3 - 4.5 mg/dL Blood 11/09/2024 8:05 AM CDT 11/09/2024 8:11 AM CDT Narrative [facility] 11/09/2024 9:08 AM CDT Tumor lysis syndrome labs. Vicente Mandujano MD LAB BLOOD OR DERABLES Final Result Performing Organization Address City/[facility]/ZIP Co de Phone Number [facility] [place] [place] [address] * (ABNORMAL) Basic metabolic panel (11/09/2024 8:05 AM CDT) Pathologist [facility] [facility] Sodium 144 135 - 145 mmol/L Potassium, pl 4.0 3.3 - 4.9 mmol/L [facility] Chloride 112(H) 97 - 110 mmol/L [facility] CO2 25 22 - 32 mmol/L [facility] Anion gap 7 2 - 15 mmol/L [facility] BUN 13 6 - 25 mg/dL [facility] Creatinine 0.55(L) 0.60 - 1.10 mg/dL [facility] Glucose 111 70 - 199 mg/dL [facility] Comment: Interpretive Data Fasting glucose >/= 126 [...] 2022. Calcium 7.7(L) 8.5 - 10.3 mg/dL [facility] Blood 11/09/2024 8:05 AM CDT 11/09/2024 8:11 AM CDT Narrative [facility] - 11/09/2024 9:08 AM CDT Tumor lysis syndrome labs. Vicente Mandujano MD LAB BLOOD OR DERABLES Final Result [facility] [place] [address] * eGFR (11/09/2024 12:42 AM CDT) [facility] eGFR >90 >=60 mL/min/1. 73 m2 [...] MD LAB BLOOD ORDERA BLES Final Result [facility] [place] [address] * (ABNORMAL) Manual Differential (11/09/2024 12:42 AM CDT) Differential Manual Cells Counted 115 [facility] Neutrophil abs 30.9(H) 1.5 - 6.5 K/cumm [facility] Imm gran abs 0.0 0.0 - 0.1 K/cumm [facility] Lymphocyte abs 0.0(L) 0.8 - 3.3 K/cumm [facility] Monocyte abs 0.0(L) 0.2 - 0.8 K/cumm [facility] Neutrophil pct 100.0 % [facility] Comment: Interpretive Data Percent cell count reference ranges are not reported, since discordance with absolute values may lead to misinterpretation of CBC data. Current Interpretive Data was last revised on 2017. RBC morphology Present(A) [facility] Anisocytosis Slight(A) [facility] Platelet estimate Adequate [facility] Blood 11/09/2024 12:4 2 AM CDT 11/09/2024 12:59 AM CDT Mervat Garber MD LAB BLOOD ORDERA BLES Edited Result - Final Performing Organization Address [facility] Co de Phone Number [facility] [place] [place] [address] * (ABNORMAL) aPTT (11/09/2024 12:42 AM CDT) aPTT 27(L) 28 - 38 sec Comment: Interpretive Data Heparin therapeutic range: 66.0 - 100.0 seconds. Range based on correlation with therapeutic heparin activity range of 0.3 - 0.7 Units/mL. Current interpretive data was last revised on 2023. Blood 11/09/2024 12:4 2 AM CDT 11/09/2024 12:56 AM CDT Result [facility] Mervat Garber MD LAB BLOOD ORDERA BLES Final Result Performing Organization Address [facility] de Phone Number [facility] [employer] [place] [address] * (ABNORMAL) Protime-INR (11/09/2024 12:42 AM CDT) PT 13.1(H) 9.7 - 13.0 sec INR 1.21(H) 0.90 - 1.20 [facility] Comment: Interpretive data Oral anticoagulant therapeutic ranges: Venous thromboembolism prophylaxis or treatment: 2.0-3.0 CARDIOLOGY Standard range: 2.0-3.0 High-intensity range: 2.5-3.5 Refer to indication-specific guidelines for appropriate target ranges for prosthetic heart valve replacement. Current interpretive data was last revised on 2019. Blood 11/09/2024 12:4 2 AM CDT 11/09/2024 12:56 AM CDT Mervat Garber MD LAB BLOOD ORDERA BLES Final Result [facility] [place] [address] * (ABNORMAL) CBC without differential (11/09/2024 12:42 AM CDT) WBC 30.9(H) 3.8 - 9.9 K/cumm Hgb 8.2(L) 11.9 - 15.5 g/dL [facility] Hct 24.6(L) 35.6 - 45.5 % [facility] Plt 152 150 - 400 K/cumm [facility] MPV 9.7 9.1 - 12.3 fL [facility] RBC 2.68(L) 3.90 - 5.20 M/cumm [facility] MCV 91.8 81.3 - 96.4 fL [facility] MCH 30.6 27.1 - 33.3 pg [facility] MCHC 33.3 32.3 - 35.7 g/dL [facility] RDW CV 19.9(H) 11.1 - 14.9 % [facility] RDW SD 65.5(H) 35.7 - 48.1 fL [facility] NRBC abs 0.00 0.00 - 0.01 K/cumm [facility] Blood 11/09/2024 12:4 2 AM CDT 11/09/2024 12:59 AM CDT Mervat Garber MD LAB BLOOD ORDERA BLES Final Result [facility] [place] [place] [address] * Type and screen (11/09/2024 12:42 AM CDT) Bing, indirect Negative ABO Rh A Positive [facility] Blood 11/09/2024 12:4 2 AM CDT 11/09/2024 12:59 AM CDT Narrative [facility] - 11/09/2024 3:10 AM CDT Has the patient had Daratumumab or Isatuximab in the past 6 months?->Unknown Mervat Garber MD LAB BLOOD BANK T EST ORDERABLES Final Result Performing Organization Address [facility] Co de Phone Number [facility] [place] [address] * Uric acid (11/09/2024 12:42 AM CDT) Pathologist [facility] Uric acid 3.4 2.5 - 7.0 mg/dL Blood 11/09/2024 12:4 2 AM CDT 11/09/2024 12:59 AM CDT Narrative [facility] - 11/09/2024 1:29 AM CDT Saturday and only. Morning draw. . Mervat Garber MD LAB BLOOD ORDERA BLES Final Result Performing Organization Address [facility] [place] [address] * Phosphorus (11/09/2024 12:42 AM CDT) Pathologist [facility] Phosphorus, pl 3.3 2.3 - 4.5 mg/dL Blood 11/09/2024 12:4 2 AM CDT 11/09/2024 12:59 AM CDT Mervat Garber MD LAB BLOOD ORDERA BLES Final Result Performing Organization Address [facility]/ZIP Co de Phone Number [facility] [place] [address] * Lactate dehydrogenase (LD) (11/09/2024 12:42 AM CDT) Pathologist [facility] Lactate dehydrogenase (LDH) 202 100 - 250 Units/L Blood 11/09/2024 12:4 2 AM CDT 11/09/2024 12:59 AM CDT Narrative [facility] - 11/09/2024 1:29 AM CDT Saturday and only. Morning draw. Mervat Garber MD LAB BLOOD ORDERA BLES Final Result [facility] [place] [address] * (ABNORMAL) Comprehensive metabolic panel (11/09/2024 12:42 AM CDT) [facility] Sodium 145 135 - 145 mmol/L Potassium, pl 3.5 3.3 - 4.9 mmol/L [facility] Chloride 111(H) 97 - 110 mmol/L [facility] CO2 27 22 - 32 mmol/L [facility] Anion gap 7 2 - 15 mmol/L [facility] BUN 16 6 - 25 mg/dL [facility] Creatinine 0.64 0.60 - 1.10 mg/dL [facility] Glucose 97 70 - 199 mg/dL [facility] Comment: Interpretive Data Fasting glucose >/= 126 [...] 2022. Calcium 7.8(L) 8.5 - 10.3 mg/dL [facility] Bilirubin, total 1.0 0.1 - 1.2 mg/dL [facility] Protein, pl 5.0(L) 6.5 - 8.5 g/dL [facility] Albumin 2.8(L) 3.5 - 5.0 g/dL [facility] Alk phos 148(H) 40 - 130 Units/L [facility] ALT 26 7 - 45 Units/L [facility] AST 16 10 - 45 Units/L [facility] Blood 11/09/2024 12:4 2 AM CDT 11/09/2024 12:59 AM CDT Narrative [facility] - 11/09/2024 1:29 AM CDT Saturday and only. Morning draw. us Mervat Garber MD LAB BLOOD ORDERA BLES Final Result [facility] [place] [address] * eGFR (11/08/2024 4:44 PM CDT) eGFR >90 >=60 mL/min/1. 73 [...] 4:44 PM CDT 11/08/2024 5:02 PM CDT us Vicente Mandujano MD LAB BLOOD OR DERABLES Final Result Performing Organization Address [facility] Co de Phone Number [facility] [place] [address] * Uric acid (11/08/2024 4:44 PM CDT) [facility] Uric acid 4.0 2.5 - 7.0 mg/dL Blood 11/08/2024 4:44 PM CDT 11/08/2024 5:02 PM CDT Narrative [facility] - 11/08/2024 5:33 PM CDT Tumor lysis syndrome labs. Vicente Mandujano MD LAB BLOOD OR DERABLES Final Result Performing Organization Address [facility] [place] [address] * Phosphorus (11/08/2024 4:44 PM CDT) [facility] Phosphorus, pl 3.0 2.3 - 4.5 mg/dL Blood 11/08/2024 4:44 PM CDT 11/08/2024 5:02 PM CDT Narrative [facility] - 11/08/2024 5:33 PM CDT Tumor lysis syndrome labs. Vicente Mandujano MD LAB BLOOD OR DERABLES Final Result Performing Organization Address [facility] Co de Phone Number [facility] [place] [address] * (ABNORMAL) Basic metabolic panel (11/08/2024 4:44 PM CDT) [facility] Sodium 142 135 - 145 mmol/L Potassium, pl 3.8 3.3 - 4.9 mmol/L [facility] Chloride 109 97 - 110 mmol/L [facility] CO2 25 22 - 32 mmol/L [facility] Anion gap 8 2 - 15 mmol/L [facility] BUN 14 6 - 25 mg/dL [facility] Creatinine 0.67 0.60 - 1.10 mg/dL [facility] Glucose 113 70 - 199 mg/dL [facility] Comment: Interpretive Data Fasting glucose >/= 126 [...] 2022. Calcium 7.8(L) 8.5 - 10.3 mg/dL [facility] Blood 11/08/2024 4:44 PM CDT 11/08/2024 5:02 PM CDT Narrative [facility] - 11/08/2024 5:33 PM CDT Tumor lysis syndrome labs. Vicente Mandujano MD LAB BLOOD OR DERABLES Final Result [facility] [place] [address] * eGFR (11/08/2024 8:46 AM CDT) eGFR [...] Inclusion of Race in Diagnosing Kidney Disease, HECTOR 2020). The CKD-EPI equation should not be used for patients with unstable renal function and has not been validated in children and those over 70. Current interpretive data was last reviewed 2021. Blood 11/08/2024 8:46 AM CDT 11/08/2024 9:14 AM CDT Vicente Mandujano MD LAB BLOOD OR DERABLES Final Result [facility] [place] [address] * Uric acid (11/08/2024 8:46 AM CDT) Uric acid 3.7 2.5 - 7.0 mg/dL Blood 11/08/2024 8:46 AM CDT 11/08/2024 9:08 AM CDT Narrative [facility] 11/08/2024 9:42 AM CDT Tumor lysis syndrome labs. Vicente Mandujano MD LAB BLOOD OR DERABLES Final Result Performing Organization Address [facility] Co de Phone Number [facility] [place] [address] * Phosphorus (11/08/2024 8:46 AM CDT) Phosphorus, pl 3.6 2.3 - 4.5 mg/dL Blood 11/08/2024 8:46 AM CDT 11/08/2024 9:08 AM CDT Narrative [facility] 11/08/2024 9:42 AM CDT Tumor lysis syndrome labs. Vicente Mandujano MD LAB BLOOD OR DERABLES Final Result Performing Organization Address [facility]/ZIP Co de Phone Number [facility] [place] [address] * (ABNORMAL) Basic metabolic panel (11/08/2024 8:46 AM CDT) Sodium 144 135 - 145 mmol/L Potassium, pl 4.2 3.3 - 4.9 mmol/L [facility] Chloride 110 97 - 110 mmol/L [facility] CO2 26 22 - 32 mmol/L [facility] Anion gap 8 2 - 15 mmol/L [facility] BUN 10 6 - 25 mg/dL [facility] Creatinine 0.57(L) 0.60 - 1.10 mg/dL [facility] Glucose 120 70 - 199 mg/dL [facility] Comment: Interpretive Data Fasting glucose >/= 126 [...] 2022. Calcium 8.0(L) 8.5 - 10.3 mg/dL [facility] Blood 11/08/2024 8:46 AM CDT 11/08/2024 9:08 AM CDT Narrative [facility] - 11/08/2024 9:42 AM CDT Tumor lysis syndrome labs. Vicente Mandujano MD LAB BLOOD OR DERABLES Final Result [facility] [place] [address] * POCT glucose (11/08/2024 3:03 AM CDT) Glucose, POC 112 70 - 199 mg/dL Blood 11/08/2024 3:03 AM CDT 11/08/2024 3:03 AM CDT Vicente Mandujano MD LAB POCT ORD ERABLES - DEVICE Final Result Performing Organization Address [facility]/ZIP Co de Phone Number [facility] [place] [address] * eGFR (11/08/2024 12:41 AM [employer]) [facility] eGFR >90 >=60 mL/min/1. 73 m2 [...] reviewed 2021. Blood 11/08/2024 12:4 1 AM [employer] 11/08/2024 1:19 AM [employer] Vicente Mandujano MD LAB BLOOD OR DERABLES Final Result Performing Organization Address [facility]/ZIP Co de Phone Number [facility] [place] [address] * (ABNORMAL) Manual Differential (11/08/2024 12:41 AM [employer]) Pathologist [facility] Differential Manual Cells Counted 115 [facility] Neutrophil abs 33.6(H) 1.5 - 6.5 K/cumm [facility] Imm gran abs 0.0 0.0 - 0.1 K/cumm [facility] Lymphocyte abs 0.3(L) 0.8 - 3.3 K/cumm [facility] Monocyte abs 0.3 0.2 - 0.8 K/cumm [facility] Neutrophil pct 98.2 % [facility] Comment: Interpretive Data Percent cell count reference ranges are not reported, since discordance with absolute values may lead to misinterpretation of CBC data. Current Interpretive Data was last revised on 2017. Lymphocyte pct 0.9 % [facility] Comment: Interpretive Data Percent cell count reference ranges are not reported, since discordance with absolute values may lead to misinterpretation of CBC data. Current Interpretive Data was last revised on 2017. Monocyte pct 0.9 % [facility] Comment: Interpretive Data Percent cell count reference ranges are not reported, since discordance with absolute values may lead to misinterpretation of CBC data. Current Interpretive Data was last revised on 2017. RBC morphology Present(A) [facility] Anisocytosis Slight(A) [facility] Macrocytes 3-7/HPF(A) [facility] Platelet estimate Adequate [facility] Blood 11/08/2024 12:4 1 AM [employer] 11/08/2024 1:19 AM [employer] us Mervat Garber MD LAB BLOOD ORDERA BLES Final Result [facility] [place] [address] * (ABNORMAL) CBC without differential (11/08/2024 12:41 AM [employer]) WBC 34.2(H) 3.8 - 9.9 K/cumm Hgb 8.8(L) 11.9 - 15.5 g/dL [facility] Hct 26.4(L) 35.6 - 45.5 % [facility] Plt 196 150 - 400 K/cumm [facility] MPV 10.1 9.1 - 12.3 fL [facility] RBC 2.86(L) 3.90 - 5.20 M/cumm [facility] MCV 92.3 81.3 - 96.4 fL [facility] MCH 30.8 27.1 - 33.3 pg [facility] MCHC 33.3 32.3 - 35.7 g/dL [facility] RDW CV 19.5(H) 11.1 - 14.9 % [facility] RDW SD 63.5(H) 35.7 - 48.1 fL [facility] NRBC abs 0.00 0.00 - 0.01 K/cumm [facility] Blood 11/08/2024 12:4 1 AM [employer] 11/08/2024 1:19 AM [employer] Mervat Garber MD LAB BLOOD ORDERA BLES Final Result Performing Organization Address [facility]/ZIP Co de Phone Number [facility] [place] [address] * Uric acid (11/08/2024 12:41 AM [employer]) Pathologist [facility] Uric acid 3.5 2.5 - 7.0 mg/dL Blood 11/08/2024 12:4 1 AM [employer] 11/08/2024 1:09 AM [employer] Narrative [facility] - 11/08/2024 1:48 AM [employer] Tumor lysis syndrome labs. Vicente Mandujano MD LAB BLOOD OR DERABLES Final Result [facility] [place] [address] * Phosphorus (11/08/2024 12:41 AM [employer]) Phosphorus, pl 3.6 2.3 - 4.5 mg/dL Blood 11/08/2024 12:4 1 AM [employer] 11/08/2024 1:09 AM [employer] Narrative [facility] - 11/08/2024 1:48 AM [employer] Tumor lysis syndrome labs. Vicente Mandujano MD LAB BLOOD OR DERABLES Final Result [facility] [place] [address] * (ABNORMAL) Hepatic function panel (11/08/2024 12:41 AM [employer]) [facility] Bilirubin, total 0.8 0.1 - 1.2 mg/dL Bilirubin, direct 0.2 0.1 - 0.3 mg/dL [facility] Protein, pl 5.2(L) 6.5 - 8.5 g/dL [facility] Albumin 3.1(L) 3.5 - 5.0 g/dL [facility] Alk phos 168(H) 40 - 130 Units/L [facility] ALT 36 7 - 45 Units/L [facility] AST 33 10 - 45 Units/L [facility] Blood 11/08/2024 12:4 1 AM [employer] 11/08/2024 1:09 AM [employer] Vicente Mandujano MD LAB BLOOD OR DERABLES Final Result Performing Organization Address [facility] Co de Phone Number [facility] [place] [address] * (ABNORMAL) Basic metabolic panel (11/08/2024 12:41 AM [employer]) [facility] Sodium 145 135 - 145 mmol/L Potassium, pl 3.8 3.3 - 4.9 mmol/L [facility] Chloride 109 97 - 110 mmol/L [facility] CO2 25 22 - 32 mmol/L [facility] Anion gap 11 2 - 15 mmol/L [facility] BUN 12 6 - 25 mg/dL [facility] Creatinine 0.66 0.60 - 1.10 mg/dL [facility] Glucose 68(L) 70 - 199 mg/dL [facility] Comment: Interpretive Data Fasting glucose >/= 126 [...] 2022. Calcium 8.0(L) 8.5 - 10.3 mg/dL [facility] Blood 11/08/2024 12:4 1 AM [employer] 11/08/2024 1:09 AM [employer] Narrative [facility] - 11/08/2024 1:48 AM [employer] Tumor lysis syndrome labs. Vicente Mandujano MD LAB BLOOD OR DERABLES Final Result [facility] [place] [address] * eGFR (11/07/2024 4:26 PM [employer]) eGFR >90 >=60 mL/min/1. 73 m2 Comment: [...] last reviewed 2021. Blood 11/07/2024 4:26 PM [employer] 11/07/2024 5:04 PM [employer] Vicente Mandujano MD LAB BLOOD OR DERABLES Final Result Performing Organization Address [facility]/ZIP Co de Phone Number [facility] [place] [address] * Uric acid (11/07/2024 4:26 PM [employer]) Pathologist [facility] Uric acid 3.6 2.5 - 7.0 mg/dL Blood 11/07/2024 4:26 PM [employer] 11/07/2024 5:04 PM [employer] Narrative [facility] - 11/07/2024 5:36 PM [employer] Tumor lysis syndrome labs. Vicente Mandujano MD LAB BLOOD OR DERABLES Final Result Performing Organization Address [facility] [place] [address] * Phosphorus (11/07/2024 4:26 PM [employer]) [facility] Phosphorus, pl 3.1 2.3 - 4.5 mg/dL Blood 11/07/2024 4:26 PM [employer] 11/07/2024 5:04 PM [employer] Narrative [facility] - 11/07/2024 5:36 PM [employer] Tumor lysis syndrome labs. Vicente Mandujano MD LAB BLOOD OR DERABLES Final Result Performing Organization Address [facility] [place] [address] * (ABNORMAL) Basic metabolic panel (11/07/2024 4:26 PM [employer]) Pathologist [facility] Sodium 142 135 - 145 mmol/L Potassium, pl 4.2 3.3 - 4.9 mmol/L [facility] Chloride 107 97 - 110 mmol/L [facility] CO2 25 22 - 32 mmol/L [facility] Anion gap 10 2 - 15 mmol/L [facility] BUN 13 6 - 25 mg/dL [facility] Creatinine 0.62 0.60 - 1.10 mg/dL [facility] Glucose 93 70 - 199 mg/dL [facility] Comment: Interpretive Data Fasting glucose >/= 126 [...] 2022. Calcium 8.4(L) 8.5 - 10.3 mg/dL [facility] Blood 11/07/2024 4:26 PM [employer] 11/07/2024 5:04 PM [employer] Narrative [facility] - 11/07/2024 5:36 PM [employer] Tumor lysis syndrome labs. Vicente Mandujano MD LAB BLOOD OR DERABLES Final Result [facility] [place] [address] * eGFR (11/07/2024 8:47 AM [employer]) eGFR >90 >=60 mL/min/1. 73 m2 Comment: [...] last reviewed 2021. Blood 11/07/2024 8:47 AM [employer] 11/07/2024 8:58 AM [employer] Vicente Mandujano MD LAB BLOOD OR DERABLES Final Result Performing Organization Address [facility]/ZIP Co de Phone Number [facility] [place] [address] * Uric acid (11/07/2024 8:47 AM [employer]) Uric acid 3.3 2.5 - 7.0 mg/dL Blood 11/07/2024 8:47 AM [employer] 11/07/2024 8:58 AM [employer] Narrative [facility] 11/07/2024 9:24 AM [employer] Tumor lysis syndrome labs. Vicente Mandujano MD LAB BLOOD OR DERABLES Final Result [facility] [place] [address] * Phosphorus (11/07/2024 8:47 AM [employer]) Phosphorus, pl 3.0 2.3 - 4.5 mg/dL Blood 11/07/2024 8:47 AM [employer] 11/07/2024 8:58 AM [employer] Narrative [facility] - 11/07/2024 9:24 AM [employer] Tumor lysis syndrome labs. Vicente Mandujano MD LAB BLOOD OR DERABLES Final Result [facility] [place] [address] * (ABNORMAL) Basic metabolic panel (11/07/2024 8:47 AM [employer]) [facility] Sodium 141 135 - 145 mmol/L Potassium, pl 4.2 3.3 - 4.9 mmol/L [facility] Chloride 108 97 - 110 mmol/L [facility] CO2 25 22 - 32 mmol/L [facility] Anion gap 8 2 - 15 mmol/L [facility] BUN 11 6 - 25 mg/dL [facility] Creatinine 0.57(L) 0.60 - 1.10 mg/dL [facility] Glucose 126 70 - 199 mg/dL [facility] Comment: Interpretive Data Fasting glucose >/= 126 [...] 2022. Calcium 8.5 8.5 - 10.3 mg/dL [facility] Blood 11/07/2024 8:47 AM [employer] 11/07/2024 8:58 AM [employer] Narrative [facility] - 11/07/2024 9:24 AM [employer] Tumor lysis syndrome labs. Vicente Mandujano MD LAB BLOOD OR DERABLES Final Result [facility] [place] [address] * eGFR (11/07/2024 12:35 AM [employer]) [facility] eGFR >90 >=60 mL/min/1. 73 m2 [...] reviewed 2021. Blood 11/07/2024 12:3 5 AM [employer] 11/07/2024 1:10 AM [employer] us Vicente Mandujano MD LAB BLOOD OR DERABLES Final Result [facility] [place] [address] * (ABNORMAL) Manual Differential (11/07/2024 12:35 AM [employer]) [facility] Differential Manual Cells Counted 114 [facility] Neutrophil abs 2.7 1.5 - 6.5 K/cumm [facility] Imm gran abs 0.0 0.0 - 0.1 K/cumm [facility] Lymphocyte abs 0.3(L) 0.8 - 3.3 K/cumm [facility] Monocyte abs 0.3 0.2 - 0.8 K/cumm [facility] Basophil abs 0.1 0.0 - 0.1 K/cumm [facility] Neutrophil pct 77.3 % [facility] Comment: Interpretive Data Percent cell count reference ranges are not reported, since discordance with absolute values may lead to misinterpretation of CBC data. Current Interpretive Data was last revised on 2017. Lymphocyte pct 9.6 % [facility] Comment: Interpretive Data Percent cell count reference ranges are not reported, since discordance with absolute values may lead to misinterpretation of CBC data. Current Interpretive Data was last revised on 2017. Monocyte pct 9.6 % [facility] Comment: Interpretive Data Percent cell count reference ranges are not reported, since discordance with absolute values may lead to misinterpretation of CBC data. Current Interpretive Data was last revised on 2017. Basophil pct 3.5 % [facility] Comment: Interpretive Data Percent cell count reference ranges are not reported, since discordance with absolute values may lead to misinterpretation of CBC data. Current Interpretive Data was last revised on 2017. RBC morphology Present(A) [facility] Anisocytosis Slight(A) [facility] Platelet estimate Adequate [facility] Blood 11/07/2024 12:3 5 AM CIGAR HEAD HOLER 11/07/2024 1:12 AM C[employer] HEAD [employer]OLER us Mervat Garber MD LAB BLOOD ORDERA BLES Final Result [facility] [place] [address] * (ABNORMAL) CBC without differential (11/07/2024 12:35 AM CIGAR HEAD HOLER) WBC 3.5(L) 3.8 - 9.9 K/cumm Hgb 9.7(L) 11.9 - 15.5 g/dL [facility] Hct 28.5(L) 35.6 - 45.5 % [facility] Plt 252 150 - 400 K/cumm [facility] MPV 9.9 9.1 - 12.3 fL [facility] RBC 3.17(L) 3.90 - 5.20 M/cumm [facility] MCV 89.9 81.3 - 96.4 fL [facility] MCH 30.6 27.1 - 33.3 pg [facility] MCHC 34.0 32.3 - 35.7 g/dL [facility] RDW CV 18.7(H) 11.1 - 14.9 % [facility] RDW SD 59.5(H) 35.7 - 48.1 fL [facility] NRBC abs 0.00 0.00 - 0.01 K/cumm [facility] Blood 11/07/2024 12:3 5 AM [employer]OLER 11/07/2024 1:12 AM C[employer] HEAD [employer]OLER Mervat Garber MD LAB BLOOD ORDERA BLES Final Result Performing Organization Address [facility] Co de Phone Number [facility] [place] [place] [address] * Uric acid (11/07/2024 12:35 AM CIGAR HEAD HOLER) Uric acid 2.9 2.5 - 7.0 mg/dL Blood 11/07/2024 12:3 5 AM C[employer]AR HEAD HOLER 11/07/2024 12:58 AM C[employer]AR HEAD H[employer]ER Narrative [facility] - 11/07/2024 1:36 AM C[employer]AR HEAD HOLER Tumor lysis syndrome labs. Vicente Mandujano MD LAB BLOOD OR DERABLES Final Result Performing Organization Address [facility] Co de Phone Number [facility] [place] [address] * Phosphorus (11/07/2024 12:35 AM CIGAR HEAD HOLER) Phosphorus, pl 3.9 2.3 - 4.5 mg/dL Blood 11/07/2024 12:3 5 AM C[employer]AR HEAD HOLER 11/07/2024 12:58 AM CIGAR HEAD [employer]OLER Narrative [facility] - 11/07/2024 1:36 AM C[employer]ER Tumor lysis syndrome labs. Vicente Mandujano MD LAB BLOOD OR DERABLES Final Result Performing Organization Address [facility] Co de Phone Number [facility] [place] [address] * Magnesium (11/07/2024 12:35 AM CIGAR HEAD HOLER) Pathologist [facility] Magnesium 1.6 1.4 - 2.5 mg/dL Blood 11/07/2024 12:3 5 AM [employer]OLER 11/07/2024 12:58 AM [employer] HEAD [employer]ER Vicente Mandujano MD LAB BLOOD OR DERABLES Final Result [facility] [place] [address] * (ABNORMAL) Basic metabolic panel (11/07/2024 12:35 AM CIGAR HEAD HOLER) [facility] Sodium 143 135 - 145 mmol/L Potassium, pl 3.2(L) 3.3 - 4.9 mmol/L [facility] Chloride 106 97 - 110 mmol/L [facility] CO2 26 22 - 32 mmol/L [facility] Anion gap 11 2 - 15 mmol/L [facility] BUN 13 6 - 25 mg/dL [facility] Creatinine 0.62 0.60 - 1.10 mg/dL [facility] Glucose 89 70 - 199 mg/dL [facility] Comment: Interpretive Data Fasting glucose >/= 126 [...] 2022. Calcium 8.2(L) 8.5 - 10.3 mg/dL [facility] Blood 11/07/2024 12:3 5 AM [employer] HEAD [employer]OLER 11/07/2024 12:58 AM CIGAR HEAD HOLER Narrative [facility] - 11/07/2024 1:36 AM C[employer]AR HEAD [employer]OLER Tumor lysis syndrome labs. us Vicente Mandujano MD LAB BLOOD OR DERABLES Final Result [facility] [place] [address] * XR Chest 1 View (11/06/2024 9:09 PM CIGAR HEAD HOLER) Anatomical Region Laterality Modality Body, Chest N/A Computed Radiogr aphy 11/07/2024 7:44 AM C[employer]AR HEAD [employer]ER Impressions 11/07/2024 7:44 AM CIGAR HEAD HOLER The current study is compared with the [...] Beata Aguilar M.D. Narrative 11/07/2024 7:44 AM CIGAR HEAD [employer]OLER EXAMINATION: 1 view chest radiograph Procedure Note [...] change.. Electronically signed by: Beata Aguilar M.D. us Mervat Garber MD IMG XR PROCEDURE S Final Result * eGFR (11/06/2024 8:56 PM C[employer]AR HEAD [employer]OLER) eGFR >90 >=60 mL/min/1. 73 m2 Comment: [...] last reviewed 2021. Blood 11/06/2024 8:56 PM C[employer]AR HEAD [employer]OLER 11/06/2024 9:21 PM [employer] HEAD [employer]ER us Mervat Garber MD LAB BLOOD ORDERA BLES Final Result [facility] [place] [address] * Senior staff review (11/06/2024 8:56 PM CIGAR HEAD HOLER) Senior Staff Review Specimen Blood Senior Staff Review Review Done [facility] Comment:Reviewed by senior s taff.11/07/2024 08:10:47 CIGAR HEAD HOLER by GP. Blood 11/06/2024 8:56 PM C[employer]AR HEAD [employer]OLER 11/06/2024 10:32 PM CIGAR HEAD [employer]OLER us Vicente Mandujano MD LAB BLOOD OR DERABLES Final Result [facility] [place] [address] * (ABNORMAL) Manual Differential (11/06/2024 8:56 PM CIGAR HEAD HOLER) Differential Manual Cells Counted 113 [facility] Neutrophil abs 2.7 1.5 - 6.5 K/cumm [facility] Imm gran abs 0.0 0.0 - 0.1 K/cumm [facility] Lymphocyte abs 0.4(L) 0.8 - 3.3 K/cumm [facility] Monocyte abs 0.4 0.2 - 0.8 K/cumm [facility] Eosinophil abs 0.0 0.0 - 0.5 K/cumm [facility] Basophil abs 0.0 0.0 - 0.1 K/cumm [facility] Neutrophil pct 74.4 % [facility] Comment: Interpretive Data Percent cell count reference ranges are not reported, since discordance with absolute values may lead to misinterpretation of CBC data. Current Interpretive Data was last revised on 2017. Lymphocyte pct 8.8 % [facility] Comment: Interpretive Data Percent cell count reference ranges are not reported, since discordance with absolute values may lead to misinterpretation of CBC data. Current Interpretive Data was last revised on 2017. Monocyte pct 10.6 % [facility] Comment: Interpretive Data Percent cell count reference ranges are not reported, since discordance with absolute values may lead to misinterpretation of CBC data. Current Interpretive Data was last revised on 2017. Eosinophil pct 0.9 % [facility] Comment: Interpretive Data Percent cell count reference ranges are not reported, since discordance with absolute values may lead to misinterpretation of CBC data. Current Interpretive Data was last revised on 2017. Basophil pct 0.9 % [facility] Comment: Interpretive Data Percent cell count reference ranges are not reported, since discordance with absolute values may lead to misinterpretation of CBC data. Current Interpretive Data was last revised on 2017. Metamyelocyte pct 0.9(H) 0.0 - 0.0 % [facility] Variant lymph pct 3.5(H) 0.0 - 0.0 % [facility] RBC morphology Present(A) [facility] Polychromasia 3-7/HPF(A) [facility] Anisocytosis Slight(A) [facility] Poikilocytosis Slight(A) [facility] Microcytes 3-7/HPF(A) [facility] Platelet estimate Adequate [facility] Comment:SSR Blood 11/06/2024 8:56 PM C[employer]AR [employer]OLER 11/06/2024 10:32 PM [employer] HEAD [employer]OLER Mervat Garber MD LAB BLOOD ORDERA BLES Final Result Performing Organization Address [facility] Co de Phone Number [facility] [employer] [place] [address] * aPTT (11/06/2024 8:56 PM CIGAR HEAD HOLER) aPTT 31 28 - 38 sec Comment: Interpretive Data Heparin therapeutic range: 66.0 - 100.0 seconds. Range based on correlation with therapeutic heparin activity range of 0.3 - 0.7 Units/mL. Current interpretive data was last revised on 2023. Blood 11/06/2024 8:56 PM [employer]ER 11/06/2024 9:07 PM [employer]ER Mervat Garber MD LAB BLOOD ORDERA BLES Final Result Performing Organization Address [facility] de Phone Number [facility] [place] [employer] [place] [address] * Protime-INR (11/06/2024 8:56 PM CIGAR HEAD HOLER) PT 12.6 9.7 - 13.0 sec INR 1.16 0.90 - 1.20 [facility] Comment: Interpretive data Oral anticoagulant therapeutic ranges: Venous thromboembolism prophylaxis or treatment: 2.0-3.0 CARDIOLOGY Standard range: 2.0-3.0 High-intensity range: 2.5-3.5 Refer to indication-specific guidelines for appropriate target ranges for prosthetic heart valve replacement. Current interpretive data was last revised on 2019. Blood 11/06/2024 8:56 PM CIGAR HEAD HOLER 11/06/2024 9:07 PM CIGAR HEAD [employer]OLER Mervat Garber MD LAB BLOOD ORDERA BLES Final Result Performing Organization Address [facility] Co de Phone Number [facility] [place] [employer] [place] [address] * Fibrinogen (11/06/2024 8:56 PM CIGAR HEAD HOLER) [facility] Fibrinogen 172 170 - 400 mg/dL Blood 11/06/2024 8:56 PM CIGAR HEAD HOLER 11/06/2024 9:07 PM [employer] HEAD [employer]ER Mervat Garber MD LAB BLOOD ORDERA BLES Final Result Performing Organization Address [facility] de Phone Number [facility] [employer] [place] [address] * (ABNORMAL) CBC without differential (11/06/2024 8:56 PM CIGAR HEAD HOLER) [facility] WBC 3.6(L) 3.8 - 9.9 K/cumm Hgb 10.4(L) 11.9 - 15.5 g/dL [facility] Hct 30.7(L) 35.6 - 45.5 % [facility] Plt 283 150 - 400 K/cumm [facility] MPV 9.6 9.1 - 12.3 fL [facility] RBC 3.40(L) 3.90 - 5.20 M/cumm [facility] MCV 90.3 81.3 - 96.4 fL [facility] MCH 30.6 27.1 - 33.3 pg [facility] MCHC 33.9 32.3 - 35.7 g/dL [facility] RDW CV 18.6(H) 11.1 - 14.9 % [facility] RDW SD 58.2(H) 35.7 - 48.1 fL [facility] NRBC abs 0.00 0.00 - 0.01 K/cumm [facility] Blood 11/06/2024 8:56 PM CIGAR HEAD HOLER 11/06/2024 9:20 PM CIGAR HEAD HOLER Mervat Garber MD LAB BLOOD ORDERA BLES Final Result Performing Organization Address [facility]/ZIP Co de Phone Number [facility] [place] [address] * Type and screen (11/06/2024 8:56 PM CIGAR HEAD HOLER) ABO Rh A Positive Bing, indirect Negative [facility] Blood 11/06/2024 8:56 PM CIGAR HEAD HOLER 11/06/2024 9:17 PM CIGAR HEAD HOLER Narrative [facility] - 11/06/2024 10:04 PM CIGAR HEAD HOLER Has the patient had Daratumumab or Isatuximab in the past 6 months?->Unknown Mervat Garber MD LAB BLOOD BANK T EST ORDERABLES Final Result Performing Organization Address [facility] Co de Phone Number [facility] [place] [address] * Uric acid (11/06/2024 8:56 PM CIGAR HEAD HOLER) Uric acid 3.1 2.5 - 7.0 mg/dL Comment:Repeated and Verifie d Blood 11/06/2024 8:56 PM CIGAR HEAD HOLER 11/06/2024 9:21 PM [employer]OLER Mervat Garber MD LAB BLOOD ORDERA BLES Final Result Performing Organization Address [facility] Co de Phone Number [facility] [place] [address] * Phosphorus (11/06/2024 8:56 PM CIGAR HEAD HOLER) Pathologist [facility] Phosphorus, pl 3.9 2.3 - 4.5 mg/dL Blood 11/06/2024 8:56 PM CIGAR HEAD HOLER 11/06/2024 9:21 PM CIGAR HEAD [employer]OLER Mervat Garber MD LAB BLOOD ORDERA BLES Final Result Performing Organization Address [facility] Co de Phone Number [facility] [place] [place] [address] * Magnesium (11/06/2024 8:56 PM CIGAR HEAD HOLER) Pathologist [facility] Magnesium 1.9 1.4 - 2.5 mg/dL Blood 11/06/2024 8:56 PM CIGAR HEAD HOLER 11/06/2024 9:21 PM CIGAR HEAD HOLER Mervat aGrber MD LAB BLOOD ORDERA BLES Final Result Performing Organization Address [facility] Co de Phone Number [facility] [place] [place] [address] * (ABNORMAL) Lactate dehydrogenase (LD) (11/06/2024 8:56 PM CIGAR HEAD HOLER) [facility] Lactate dehydrogenase (LDH) 257(H) 100 - 250 Units/L Blood 11/06/2024 8:56 PM CIGAR HEAD HOLER 11/06/2024 9:21 PM CIGAR HEAD HOLER Mervat Garber MD LAB BLOOD ORDERA BLES Final Result Performing Organization Address [facility] [place] [address] * (ABNORMAL) Comprehensive metabolic panel (11/06/2024 8:56 PM CIGAR HEAD HOLER) Pathologist [facility] Sodium 141 135 - 145 mmol/L Potassium, pl 3.5 3.3 - 4.9 mmol/L [facility] Chloride 102 97 - 110 mmol/L [facility] CO2 29 22 - 32 mmol/L [facility] Anion gap 10 2 - 15 mmol/L [facility] BUN 10 6 - 25 mg/dL [facility] Creatinine 0.67 0.60 - 1.10 mg/dL [facility] Glucose 92 70 - 199 mg/dL [facility] Comment: Interpretive Data Fasting glucose >/= 126 [...] 2022. Calcium 8.8 8.5 - 10.3 mg/dL [facility] Bilirubin, total 0.8 0.1 - 1.2 mg/dL [facility] Protein, pl 6.2(L) 6.5 - 8.5 g/dL [facility] Albumin 3.6 3.5 - 5.0 g/dL [facility] Alk phos 187(H) 40 - 130 Units/L [facility] ALT 48(H) 7 - 45 Units/L [facility] AST 33 10 - 45 Units/L [facility] Blood 11/06/2024 8:56 PM CIGAR HEAD HOLER 11/06/2024 9:21 PM CIGAR HEAD HOLER us Mervat Garber MD LAB BLOOD ORDERA BLES Final Result [facility] [place] [address] * Measurable Residual Disease (MRD) MyeloSeq Heme NGS Panel with Interpretation (11/04/2024 12:03 PM CIGAR HEAD HOLER) Bone Marrow Biopsy 11/04/2024 12:03 PM CIGAR HEAD HOLER 11/04/2024 4:25 PM CIGAR HEAD HOLER Narrative 11/17/2024 10:10 PM CDT [facility] Services [address] [place] [address] Final Report Patient Name: RENU DURON Address: [address] [place] [address] Gender: F : 1965 (Age: 59) Accessioned: 11/05/2024 Taken: 11/04/2024 Received: 11/04/2024 Physician(s): Vicente Mandujano MD Service: [facility] Location: [facility] #: [id number] Patient Type: [facility] MyeloSeq-MRD Molecular DiagnosticsReported:11/17/2024 Varients Detected: GENE EXON VARIANT PROTEIN CHANGE VAF CLINICAL SIGNIFICANCE* PREVIOUSLY DETECTED DNMT3A 23 MISSENSE R882C 5% PATHOGENIC YES TET2 3 STOP GAINED C237* 0.12% PATHOGENIC YES*Please see below for variant classification category details The following prior mutations were not detected: NPM1:B713Qyl*12, KRAS:G12D, FLT3:ITD No mutations were detected in [...] in patients with acute myeloid leukemia (PMID: [id number]). Clinical History: 59-year-old woman with a history [...] for follow up. Corresponding bone marrow biopsy ([id number]) shows normocellular marrow with progressive multilineage hematopoiesis without increased blasts. Corresponding cytogenetic studies ([id number]) show no evidence of clonal aberrations. Specimen site: Bone marrow Variant Detail: Gene Location (GRCh38) Reference allele Variant allele Transcript:Coding change Population Frequency* DNMT3A chr2:[id number] G A [id number]:c.2644C>T 0.047% TET2 chr4:[id number] T A [id number]:c.711T>A none*The population allele frequency represents the maximum [...] the CLIA Licensed Environment laboratory at the [facility] ([facility], CLIA #[id number], CAP #[id number]), Dr. Walt Calle MD, PhD, [facility], Natural [employer] Plant Supervisor. [address] [facility], [address] [place], [place] [address] . The [facility] laboratory is regulated under CLIA as certified to perform high-complexity testing. Interpretation of sequencing results and case sign out is performed by Pathology and Immunology faculty in the Division of Genomic and Molecular Pathology ([facility], CLIA #[id number], CAP #[id number]) Dr. Josselyn Thomas Ph.D., Natural [employer] Supervisor. [facility], [facility] [facility], [facility] [address] [address] [phone] . The [facility] is regulated [...] 30GBases of sequencing data generated on an [employer] X Plus. This test has been validated according to CAP guidelines for the detection of single nucleotide variants (SNVs) and indels (max validated size 117bp). This assay has two limits of detection: for new variants (not previously reported by [facility]) sensitivity is limited to 2% VAF; for [...] Such information and correlations are subject to change house attendant time in response to future scientific and [...] By Serge Perez MD, PhD 11/17/2024 22:08:56 us Vicente Mandujano MD LAB PATHOLOG Y ORDERABLES Final Result * Cytogenetics (11/04/2024 12:03 PM CIGAR HEAD HOLER) Bone Marrow Biopsy 11/04/2024 12:03 PM CIGAR HEAD HOLER 11/04/2024 12:03 PM CIGAR HEAD HOLER Narrative 11/16/2024 8:40 PM CDT EPIC results best viewed via link to PDF [facility] Department of Pathol [facility] [place] [address] Patient Information Name: RENU DURON Gender: F : 1965 (Age: 59) Tissue: Bone Marrow w/ FISH Visit Information Hospital #: [id number] Facility: [facility] Service: [facility] Location: [facility] OUTREACH Patient Type: [facility] Specimen Information: Culture #: [id number] Date Collected: 11/04/2024 Date Accessioned: 11/05/2024 Date Ordered: 11/04/2024 Physician(s): Vicente Mandujano MD Processing: Direct unstimulated - 24 hours unstimulated Indication: Acute myeloblastic leukemia Specimen Quality: Adequate: FISH Adequate: Chromosome analysis CLINICAL REPORT CHROMOSOME ANALYSIS Metaphases Counted: 20Banding Technique: GTWColonies Counted: Metaphases Analyzed: 20Additional Method: FISHNumber of Cultures: 1Metaphases Karyotyped: 3Banding Resolution: 400Subculture: Karyotype: 46,XX[20].nuc radhames (MECOM)x2[200],(EGR1)x2[200],(L6G143)x2[200],(D8Z2)x2[200],(PIEF7Z1,RUNX1)x2[200 ], (ASS1,ABL1,BCR)x2[200],(KMT2A)x2[200],(PML,BJ)x2[200],(CBFB)x2[200] Diagnosis: CHROMOSOME ANALYSIS: NO EVIDENCE OF CLONAL ABERRATIONS FISH FINDINGS: NO EVIDENCE OF DELETION/MONOSOMY OF EGR1 (5q) AND H6I864 (7q) NO EVIDENCE OF REARRANGEMENTS OF MECOM, RLYP4V7::RUNX1, BCR::ABL1, PML::BJ, KMT2A OR CBFB NO EVIDENCE [...] Hybridization (FISH) analysis are performed using the [employer] Imaging System. Report Electronically Reviewed and Signed Out By Josselyn Thomas, PhD, FACMGDate Reported: 5Associate Professor, Division of Genomic & Molecular Pathology FLUORESCENCE IN-SITU HYBRIDIZATION [FISH] Karyotype: nuc radhames (MECOM)x2[200],(EGR1)x2[200],(J4G092)x2[200],(D8Z2)x2[200],(PHDS3P4,RUNX1)x2[200 ],( S1,ABL1,BCR)x2[200],(KMT2A)x2[200],(PML,BJ)x2[200],(CBFB)x2[200] Diagnosis: FISH FINDINGS: NO EVIDENCE OF DELETION/MONOSOMY OF EGR1 (5q) AND A0C791 (7q) NO EVIDENCE OF REARRANGEMENTS OF MECOM, VRQG3N4::RUNX1, BCR::ABL1, PML::BJ, KMT2A OR CBFB NO EVIDENCE OF TRISOMY 8 INTERPRETATION: FISH analysis was performed with a panel of [employer] and [employer] probes for AML and is interpreted as NORMAL. 1) FISH evaluation for an MECOM (EVI1) rearrangement was performed on nuclei with the MECOM Dual Color, Break Apart Rearrangement Probe ([employer]) at 3q26 and is interpreted as NORMAL. No rearrangement was observed in 200/200 nuclei, which is within the normal range established for this probe in the Clinical Genomics Laboratory at [facility]. Up to 1% of cells in normal samples can show an apparent MECOM rearrangement using this probe. A normal MECOM FISH finding can result from the absence of a MECOM rearrangement, from a variant MECOM rearrangement or from an insufficient number of neoplastic cells in the specimen. 2) FISH evaluation for a 5q deletion was performed on nuclei with the EGR1,U8S224/U6C2242 Dual Color Probe ([employer] for EGR1 at 5q31.1 and the control E5G642/R6Y4824 at 5p15.31 and is interpreted as NORMAL. Two EGR1 hybridization signals and two J4M268/D1K6325 control hybridization signals were observed in 200/200 nuclei, which is within the normal range established for this probe in the Clinical Genomics Laboratory at [facility]. Up to 3.1% of cells in normal [...] was performed on nuclei with the LSI M5F019/D7Z1 Dual Color Probe ([employer] for O8A069 at 7q31 and the control D7Z1 at 7p11.1-q11.1 and is interpreted as NORMAL. Two Q7X958 hybridization signals and two D7Z1 control hybridization signals were observed in 200/200 nuclei, which is within the normal range established for this probe set in the Clinical Genomics Laboratory at [facility]. Up to 1% of cells in normal samples can show an apparent 7q deletion using this probe. A normal A7Y554 FISH finding can result from the absence [...] probe in the Clinical Genomics Laboratory at [facility]. Up to 1.9% of cells in normal samples can show apparent trisomy 8 using this probe. A normal chromosome 8 FISH finding can result from the absence of trisomy 8 or from an insufficient number of neoplastic cells in the specimen. 5) FISH evaluation for a FCEY3F1::RUNX1 rearrangement was performed on nuclei with the LSI WVMU8G3::RUNX1 Dual Color, Dual Fusion Translocation Probe ([employer] for WQMV2Q9(ETO) at 8q22 and RUNX1(AML1) at 21q22 and is interpreted as NORMAL. No rearrangement was observed in 199/200 nuclei, which is within the normal range established for this probe in the Clinical Genomics Laboratory at [facility]. Variant signal pattern was observed in 1/200 nuclei. Up to 5% of cells in normal samples can show random overlap of AXEW2F3::RUNX1 probes and additional nuclei may show extra or missing signals. A normal BZND4R3::RUNX1 FISH finding can result from the absence of an DFOW1H1::RUNX1 rearrangement, from a variant JAIJ3Y0::RUNX1 rearrangement or from an insufficient number of [...] probe in the Clinical [facility]omics Laboratory at [facility]. Variant signal pattern was observed in 5/200 [...] Dual Color, Break Apart Rearrangement Probe ([employer] at 11q23 and is interpreted as NORMAL. No rearrangement was observed in 200/200 nuclei, which is within the normal range established for this probe in the Clinical Genomics Laboratory at [facility]. Up to 1% of cells in normal [...] Dual Color, Dual Fusion Translocation Probe ([employer] for PML at 15q24 and BJ at 17q21 and is interpreted as NORMAL. No rearrangement was observed in 191/200 nuclei, which is within the normal range established for this probe in the [facility]omics Laboratory at [facility]. Variant signal pattern was observed in 9/200 [...] probe in the Clinical Genomics Laboratory at [facility]. Up to 2% of cells in normal [...] developed and its performance characteristics determined by [facility]. It has not been cleared or approved by the FDA. The laboratory is regulated under CLIA as qualified to perform high-complexity testing. This test is used for clinical purposes. It should not be regarded as investigational or for research. Chromosome analysis and Fluorescence In Situ Hybridization (FISH) analysis are performed using the [employer] Imaging System. Report Electronically Reviewed and Signed Out By Josselyn Thomas, PhD, FACMGDate Reported: 5Associate Professor, Division of Genomic & Molecular Pathology Vicente Mandujano MD LAB GENETIC TESTING Final Result * FLT3-ITD mutation detection ([facility]) -Miscellaneous Molecular Send-Out Request (11/04/2024 12:03PM [employer]OL[employer]) Result 1 Test Name: _FLT3 ITD MRD by NGS (LabPMM) Specimen Type: _BM Result: See attached scanned report for results. Test name FLT3 ITD MRD by NGS (LabPM) [facility] Bone marrow 11/04/2024 12:0 3 PM [employer] [employer] [facility] 11/05/2024 9:06 AM [employer]AR HEAD [employer]OLER Narrative [facility] - 11/23/2024 8:55 AM CDT Collect: Whole blood or bone marrow in lavender (EDTA). Also acceptable: Whole blood in green (sodium heparin). Specimen Preparation Whole Blood: Do not freeze. Transport 5 mL whole blood. (Min: 1 mL) Bone Marrow: Do not freeze. Transport 3 mL bone marrow. (Min: 1 mL) Storage/Transport Temperature: Refrigerated. Test Requested:->FLT3-ITD mutation detection ([facility]) Vicente Mandujano MD LAB GENETIC TESTING Final Result Performing Organization Address City/[facility]/ZIP Co de Phone Number [facility] [place] [employer] [place] [address] * NPM1 PCR Quantitative (Consulted) -Miscellaneous Molecular Send-Out Request (11/04/2024 12:03 PM CIGAR HEAD HOLER) Pathologist [facility] Result 1 Test Name: _NPM1 by RT-PCR ([facility]) Specimen Type: _BM Result: See attached scanned report for results. Test name NPM1 by RT-PCR ([facility]) [facility] Bone marrow 11/04/2024 12:0 3 PM [employer]OLER 11/05/2024 9:06 AM [employer] HEAD [employer]OLER Narrative [facility] - 11/16/2024 12:09 PM CDT Collect: Whole [...] tests are ordered. Test Requested:->NPM1 PCR Quantitative (Consulted) Vicente Mandujano MD LAB GENETIC TESTING Final Result Performing Organization Address [facility] Co de Phone Number [facility] [place] [address] * Cytogenetics Specimen Tracking Bone marrow (11/04/2024 12:02 PM CIGAR HEAD HOLER) [facility] Cytotenetics Tracking Order Received Bone marrow 11/04/2024 12:0 2 PM [employer]OLER 11/04/2024 2:42 PM [employer]AR HEAD HOLER Narrative [facility] - 11/05/2024 9:22 AM C[employer]AR HEAD HOLER Please read the Cytogenetics Epic requisition for specimen collection requirements. Vicente Mandujano MD LAB BODY FLUIDS AND STOOLS ORDERABLES Final Result [facility] [place] [address] * MyeloSeq tracking order Bone marrow (11/04/2024 12:02 PM CIGAR HEAD HOLER) [facility] MyeloSeq Received Bone marrow 11/04/2024 12:0 2 PM [employer]ER 11/04/2024 2:42 PM [employer]OLER Narrative [facility] 11/05/2024 9:38 AM [employer]OLER Specimen type (select one):->Marrow Vicente Mandujano MD LAB BODY FLUIDS AND STOOLS ORDERABLES Final Result Performing Organization Address City/[facility] Co de Phone Number [facility] [place] [address] * Minimal Residual Disease-AML (11/04/2024 12:02 PM [employer]IGAR HEAD HOLER) [facility] MRD-AML See scanned report Comment: Testing performed by: [facility]. [address], [address] [place] [address] Revised on 05/21/2018 Bone marrow 11/04/2024 12:0 2 PM [employer]OLER 11/04/2024 3:29 PM [employer]OLER Narrative [facility] - 11/09/2024 8:43 PM CDT Clinical History / Treatment Plan:->New AML Vicente Mandujano MD LAB BODY FLUIDS AND STOOLS ORDERABLES Final Result [facility] [place] [address] * Flow Leukemia/Lymphoma Bone marrow (11/04/2024 12:02 PM CIGAR HEAD HOLER) Pathologist [facility] Suárez Stain Test Completed Leukemia/Lymp emily Result See separate Surgical Pathology report. [facility] Bone marrow 11/04/2024 12:0 2 PM C[employer]OLER 11/04/2024 2:42 PM CIGAR HEAD HOLER Narrative [facility] - 11/05/2024 12:21 PM CIGAR HEAD HOLER Tube information: Green top (Sodium Heparin) Vicente Mandujano MD LAB PATHOLOG Y ORDERABLES Final Result Performing Organization Address [facility] Co de Phone Number [facility] [place] [address] * Hematologic Molecular Algorithm Bone marrow (11/04/2024 12:02 PM CIGAR HEAD HOLER) Pathologist [facility] Heme Molecular Algorithm Received Bone marrow 11/04/2024 12:0 2 PM C[employer]AR HEAD HOLER 11/05/2024 8:58 AM CIGAR HEAD HOLER Narrative [facility] - 11/06/2024 4:13 PM CIGAR HEAD HOLER Tube information: [place] top Clinical History / Treatment Plan:->New AML Select diagnosis - - Appropriate molecular tests will be performed based on histopathological diagnosis.->AML 11/06/2024 - HMA complete, FLT3 ITD MRD by NGS testing ordered. Vicente Mandujano MD LAB BODY FLUIDS AND STOOLS ORDERABLES Final Result Performing Organization Address City/[facility]/ZIP Co de Phone Number [facility] [place] [address] * Surgical pathology (11/04/2024 12:02 PM CIGAR HEAD HOLER) Bone marrow (Bone Marrow Biopsy) 11/04/2024 12:02 PM [employer]OLER 11/04/2024 2:29 PM [employer]AR HEAD HOLER Narrative PATHOLOGY [facility] - 11/05/2024 4:41 PM CIGAR HEAD HOLER EPIC results best viewed via link to PDF [facility] [place] [address] Note to Patients: This report may contain [...] Gender: F : 1965 (Age: 59) Address: [address] [place], [place] [id number] Hospital #: [id number] Taken:11/04/2024 Received:11/04/2024 Reported: 11/05/2024 Patient Type: [facility] SPECIMEN Service: Laboratory Location: Physician(s): Vicente Mandujano MD Diagnosis: Bone marrow, left posterior iliac crest, core biopsy, clot, and aspirate: - Normocellular bone marrow with progressive multilineage hematopoiesis - No increase in blasts /11/05/2024 12:16 By this signature, I attest that [...] flow cytometry specimen was examined for internal manager quality improvement purposes. Flow cytometry was performed using antibodies [...] Surgical Pathology and Flow Cytometry Departments at [facility] as part of an ongoing quality manager program and in compliance with federally mandated [...] Surgical Pathology and Flow Cytometry Departments of [facility]. It has not been cleared or approved by the U. S. Food and Drug Administration. IMAGES AND SCANNED DOCUMENTS, IF INCLUDED, ONLY VIEWABLE IN PDF VERSION OF REPORT us Vicente Mandujano MD LAB PATHOLOG Y ORDERABLES Final Result PATHOLOGY [facility] 3rd Floor [place], [place] [phone] * eGFR (11/03/2024 1:14 PM [employer]OLER) eGFR >90 >=60 mL/min/1. 73 m2 Comment: [...] last reviewed 2021. Blood 11/03/2024 1:14 PM [employer]ER 11/03/2024 1:26 PM [employer]ER Vicente Mandujano MD LAB BLOOD OR DERABLES Final Result [facility] [place] [address] * (ABNORMAL) Differential, auto (11/03/2024 1:14 PM CIGAR HEAD HOLER) Neutrophil abs 1.3(L) 1.5 - 6.5 K/cumm Comment:Testing performed by : [facility] Heme Lab, [address] [place] [phone] Lymphocyte abs 0.1(L) 0.8 - 3.3 K/cumm [facility] Comment:Testing performed by : [facility], [address] [place] [phone] Monocyte abs 0.8 0.2 - 0.8 K/cumm [facility] Comment:Testing performed by : [facility], [address] [place] [address] Eosinophil abs 0.0 0.0 - 0.5 K/cumm [facility] Comment:Testing performed by : [facility], [address] [place] [phone] Basophil abs 0.1 0.0 - 0.1 K/cumm [facility] Comment:Testing performed by : [facility], [address] [place], [place] [phone] Neutrophil pct 56.7 % [facility] Comment: Interpretive Data Percent cell count reference ranges are not reported, since discordance with absolute values may lead to misinterpretation of CBC data. Current Interpretive Data was last revised on 2017. Testing performed by: [facility], [address] [place], [place] [phone] Lymphocyte pct 5.9 % [facility] Comment: Interpretive Data Percent cell count reference ranges are not reported, since discordance with absolute values may lead to misinterpretation of CBC data. Current Interpretive Data was last revised on 2017. Testing performed by: [facility], [address] [place], [place] [phone] Monocyte pct 34.2 % [facility] Comment: Interpretive Data Percent cell count reference ranges are not reported, since discordance with absolute values may lead to misinterpretation of CBC data. Current Interpretive Data was last revised on 2017. Testing performed by: [facility], [address] [place] [address] Eosinophil pct 0.2 % [facility] Comment: Interpretive Data Percent cell count reference ranges are not reported, since discordance with absolute values may lead to misinterpretation of CBC data. Current Interpretive Data was last revised on 2017. Testing performed by: [facility]e [facility], [address] [place], [place] [phone] Basophil pct 3.0 % [facility] Comment: Interpretive Data Percent cell count reference ranges are not reported, since discordance with absolute values may lead to misinterpretation of CBC data. Current Interpretive Data was last revised on 2017. Testing performed by: [facility], [address] [place] [address] Blood 11/03/2024 1:14 PM C[employer]AR [employer] HOLER 11/03/2024 1:24 PM [employer]ER Vicente Mandujano MD LAB BLOOD OR DERABLES Final Result Performing Organization Address [facility] [place] [address] * (ABNORMAL) CMV, IgG Blood (11/03/2024 1:14 PM CIGAR HEAD HOLER) [facility] CMV IgG Equivocal (A) Negative Comment: [...] recent CMV infection. Blood 11/03/2024 1:14 PM C[employer]AR HEAD HOLER 11/03/2024 2:31 PM [employer] HEAD [employer]OLER Vicente Mandujano MD LAB MICROBIOLOGY - GENERAL ORDERABLES Final Result Performing Organization Address [facility] Co de Phone Number [facility] [place] [address] * (ABNORMAL) CBC with auto differential (11/03/2024 1:14 PM CIGAR HEAD HOLER) [facility] WBC 2.2(L) 3.8 - 9.9 K/cumm Comment:Testing performed by : [facility] Heme [facility], [address] [place] [phone] Hgb 11.8(L) 11.9 - 15.5 g/dL [facility] Comment:Testing performed by : [facility], [address] [place] [phone] Hct 34.9(L) 35.6 - 45.5 % [facility] Comment:Testing performed by : [facility], [address] [place] [phone] Plt 386 150 - 400 K/cumm [facility] Comment:Testing performed by : [facility], [address] [place], [place] [phone] MPV 7.4 6.8 - 10.4 fL DAVID GARCÍA Comment:Testing performed by : [facility], [address] [place], [place] [phone] RBC 3.98 3.90 - 5.20 M/cumm DAVID [facility]J Comment:Testing performed by : [facility]e [facility], [address] [place], [place] [phone] MCV 87.8 81.3 - 96.4 fL DAVID GARCÍA Comment:Testing performed by : [facility]e [facility], [address] [place], [place] [phone] MCH 29.7 27.1 - 33.3 pg DAVID GARCÍA Comment:Testing performed by : [facility], [address] [place], [place] [phone] MCHC 33.8 32.3 - 35.7 g/dL [facility]ID GARCÍA Comment:Testing performed by : [facility], [address] [place] [address] RDW CV 18.4(H) 11.1 - 14.9 % [facility] Comment:Testing performed by : [facility], [address] [place], [place] [phone] NRBC abs 0.00 0.00 - 0.01 K/cumm [facility] Comment:Testing performed by : [facility], [address] [place] [address] Blood 11/03/2024 1:14 PM C[employer]AR [employer] HOLER 11/03/2024 1:24 PM [employer]AR HEAD HOLER Vicente Mandujano MD LAB BLOOD OR DERABLES Final Result [facility] GARCÍA [facility] [place] [address] * Type and screen (11/03/2024 1:14 PM CIGAR HEAD HOLER) Bing, indirect Negative ABO Rh A Positive DAVID GARCÍA Blood 11/03/2024 1:14 PM C[employer]AR HEAD HOLER 11/03/2024 1:45 PM CIGAR HEAD HOLER Narrative [facility] - 11/03/2024 2:44 PM CIGAR HEAD HOLER Has the patient had Daratumumab or Isatuximab in the past 6 months?->Unknown Vicente Mandujano MD LAB BLOOD BA NK TEST ORDERABLES Final Result Performing Organization Address City/[facility] Co de Phone Number [facility] [place] [address] * Phosphorus (11/03/2024 1:14 PM CIGAR HEAD HOLER) Phosphorus, pl 2.8 2.3 - 4.5 mg/dL Blood 11/03/2024 1:14 PM C[employer]AR HEAD HOLER 11/03/2024 1:26 PM [employer]ER Vicente Mandujano MD LAB BLOOD OR DERABLES Final Result Performing Organization Address [facility] Co de Phone Number [facility] [place] [address] * Magnesium (11/03/2024 1:14 PM CIGAR HEAD HOLER) Magnesium 1.8 1.4 - 2.5 mg/dL Blood 11/03/2024 1:14 PM C[employer]AR HEAD HOLER 11/03/2024 1:26 PM [employer] HEAD [employer]ER Vicente Mandujano MD LAB BLOOD OR DERABLES Final Result Performing Organization Address [facility] Co de Phone Number [facility] [place] [address] * (ABNORMAL) Lipase (11/03/2024 1:14 PM CIGAR HEAD HOLER) Lipase 159(H) 10 - 99 Units/L Blood 11/03/2024 1:14 PM CIGAR HEAD HOLER 11/03/2024 1:26 PM [employer]ER Vicente Mandujano MD LAB BLOOD OR DERABLES Final Result Performing Organization Address [facility] de Phone Number [facility] [place] [address] * Lactate dehydrogenase (LD) (11/03/2024 1:14 PM CIGAR HEAD HOLER) Lactate dehydrogenase (LDH) 239 100 - 250 Units/L Blood 11/03/2024 1:14 PM CIGAR HEAD HOLER 11/03/2024 1:26 PM CIGAR HEAD HOLER Result [facility] Vicente Mandujano MD LAB BLOOD OR DERABLES Final Result Performing Organization Address [facility] de Phone Number [facility] [place] [place] [address] * (ABNORMAL) Bilirubin, direct (11/03/2024 1:14 PM CIGAR HEAD HOLER) Bilirubin, direct 0.4(H) 0.1 - 0.3 mg/dL Blood 11/03/2024 1:14 PM CIGAR HEAD HOLER 11/03/2024 1:26 PM CIGAR HEAD HOLER Result [facility] Vicente Mandujano MD LAB BLOOD OR DERABLES Final Result Performing Organization Address [facility] de Phone Number [facility] [place] [address] * (ABNORMAL) Amylase (11/03/2024 1:14 PM CIGAR HEAD HOLER) Amylase 117(H) 30 - 99 Units/L Blood 11/03/2024 1:14 PM CIGAR HEAD HOLER 11/03/2024 1:26 PM CIGAR HEAD HOLER Result [facility] Vicente Mandujano MD LAB BLOOD OR DERABLES Final Result [facility] [place] [address] * (ABNORMAL) Comprehensive metabolic panel (11/03/2024 1:14 PM CIGAR HEAD HOLER) Sodium 141 135 - 145 mmol/L Potassium, pl 3.3 3.3 - 4.9 mmol/L [facility] Chloride 105 97 - 110 mmol/L [facility] CO2 30 22 - 32 mmol/L [facility] Anion gap 6 2 - 15 mmol/L [facility] BUN 9 6 - 25 mg/dL [facility] Creatinine 0.58(L) 0.60 - 1.10 mg/dL [facility] Glucose 96 70 - 199 mg/dL [facility] Comment: Interpretive Data Fasting glucose >/= 126 [...] 2022. Calcium 8.9 8.5 - 10.3 mg/dL C[facility]ER [facility] Bilirubin, total 0.9 0.1 - 1.2 mg/dL [facility] Protein, pl 6.5 6.5 - 8.5 g/dL [facility] Albumin 3.7 3.5 - 5.0 g/dL C[facility] Alk phos 209(H) 40 - 130 Units/L [facility] ALT 56(H) 7 - 45 Units/L [facility] AST 33 10 - 45 Units/L [facility] Blood 11/03/2024 1:14 PM CIGAR HEAD HOLER 11/03/2024 1:26 PM [employer] HEAD HOLER Vicente Mandujano MD LAB BLOOD OR DERABLES Final Result Performing Organization Address [facility] Co de Phone Number DAVID [facility] [place] [address] * eGFR (10/28/2024 12:27 AM CIGAR HEAD HOLER) [facility] eGFR >90 >=60 mL/min/1. 73 m2 [...] reviewed 2021. Blood 10/28/2024 12:2 7 AM C[employer]AR HEAD HOLER 10/28/2024 12:38 AM C[employer]AR HEAD HOLER us Marcus Vergara MD LAB BLOOD ORDERABLES Final Resu lt Performing Organization Address [facility] Co de Phone Number DAVID [facility] [place] [address] * (ABNORMAL) Manual Differential (10/28/2024 12:27 AM CIGAR HEAD HOLER) [facility] Differential Manual Cells Counted 115 [facility] Neutrophil abs 3.5 1.5 - 6.5 K/cumm [facility] Imm gran abs 0.0 0.0 - 0.1 K/cumm [facility] Lymphocyte abs 0.1(L) 0.8 - 3.3 K/cumm [facility] Monocyte abs 0.2 0.2 - 0.8 K/cumm [facility] Basophil abs 0.0 0.0 - 0.1 K/cumm [facility] Neutrophil pct 92.2 % [facility] Comment: Interpretive Data Percent cell count reference ranges are not reported, since discordance with absolute values may lead to misinterpretation of CBC data. Current Interpretive Data was last revised on 2017. Lymphocyte pct 1.7 % [facility] Comment: Interpretive Data Percent cell count reference ranges are not reported, since discordance with absolute values may lead to misinterpretation of CBC data. Current Interpretive Data was last revised on 2017. Monocyte pct 5.2 % [facility] Comment: Interpretive Data Percent cell count reference ranges are not reported, since discordance with absolute values may lead to misinterpretation of CBC data. Current Interpretive Data was last revised on 2017. Basophil pct 0.9 % [facility] Comment: Interpretive Data Percent cell count reference ranges are not reported, since discordance with absolute values may lead to misinterpretation of CBC data. Current Interpretive Data was last revised on 2017. RBC morphology Normal [facility] Platelet estimate Adequate [facility] Blood 10/28/2024 12:2 7 AM [employer]AR [employer]OLER 10/28/2024 12:39 AM [employer]AR HEAD [employer]OLER us Marcus Vergara MD LAB BLOOD ORDERABLES Edited Res ult - Final [facility] [place] [address] * (ABNORMAL) CBC without differential (10/28/2024 12:27 AM CIGAR HEAD HOLER) WBC 3.8 3.8 - 9.9 K/cumm Hgb 10.2(L) 11.9 - 15.5 g/dL [facility] Hct 29.8(L) 35.6 - 45.5 % [facility] Plt 249 150 - 400 K/cumm [facility] MPV 10.7 9.1 - 12.3 fL [facility] RBC 3.52(L) 3.90 - 5.20 M/cumm [facility] MCV 84.7 81.3 - 96.4 fL [facility] MCH 29.0 27.1 - 33.3 pg [facility] MCHC 34.2 32.3 - 35.7 g/dL [facility] RDW CV 16.8(H) 11.1 - 14.9 % [facility] RDW SD 50.1(H) 35.7 - 48.1 fL [facility] NRBC abs 0.03(H) 0.00 - 0.01 K/cumm [facility] Blood 10/28/2024 12:2 7 AM C[employer]AR HEAD HOLER 10/28/2024 12:39 AM CIGAR HEAD HOLER us Marcus Vergara MD LAB BLOOD ORDERABLES Final Resu lt Performing Organization Address [facility] Co de Phone Number [facility] [place] [address] * (ABNORMAL) Phosphorus (10/28/2024 12:27 AM CIGAR HEAD HOLER) Phosphorus, pl 2.0(L) 2.3 - 4.5 mg/dL Blood 10/28/2024 12:2 7 AM C[employer]AR HEAD HOLER 10/28/2024 12:38 AM C[employer]AR [employer]OLER us Marcus Vergara MD LAB BLOOD ORDERABLES Final Resu lt Performing Organization Address [facility] Co de Phone Number [facility] [place] [address] * Magnesium (10/28/2024 12:27 AM CIGAR HEAD HOLER) Magnesium 2.0 1.4 - 2.5 mg/dL Blood 10/28/2024 12:2 7 AM CIGAR HEAD HOLER 10/28/2024 12:38 AM CIGAR HEAD HOLER us Marcus Vergara MD LAB BLOOD ORDERABLES Final Resu lt Performing Organization Address City/[facility]/ZIP Co de Phone Number [facility] [place] [address] * (ABNORMAL) Hepatic function panel (10/28/2024 12:27 AM CIGAR HEAD HOLER) [facility] Bilirubin, total 1.1 0.1 - 1.2 mg/dL Bilirubin, direct 0.4(H) 0.1 - 0.3 mg/dL [facility] Protein, pl 6.0(L) 6.5 - 8.5 g/dL [facility] Albumin 3.1(L) 3.5 - 5.0 g/dL [facility] Alk phos 230(H) 40 - 130 Units/L [facility] ALT 78(H) 7 - 45 Units/L [facility] AST 40 10 - 45 Units/L [facility] Blood 10/28/2024 12:2 7 AM [employer] 10/28/2024 12:38 AM [employer] Jovany Justice NP LAB BLOOD ORDERABLES Final Result [facility] [place] [address] * (ABNORMAL) Basic metabolic panel (10/28/2024 12:27 AM C[employer]AR [employer]ER) [facility] Sodium 138 135 - 145 mmol/L Potassium, pl 3.7 3.3 - 4.9 mmol/L [facility] Chloride 102 97 - 110 mmol/L [facility] CO2 28 22 - 32 mmol/L [facility] Anion gap 8 2 - 15 mmol/L [facility] BUN 15 6 - 25 mg/dL [facility] Creatinine 0.58(L) 0.60 - 1.10 mg/dL [facility] Glucose 89 70 - 199 mg/dL [facility] Comment: Interpretive Data Fasting glucose >/= 126 [...] 2022. Calcium 8.2(L) 8.5 - 10.3 mg/dL [facility] Blood 10/28/2024 12:2 7 AM [employer] 10/28/2024 12:38 AM [employer] us Marcus Vergara MD LAB BLOOD ORDERABLES Final Resu lt [facility] [place] [address] * CT Abdomen Pelvis WO Contrast (10/27/2024 11:14 AM [employer]OLER) Anatomical Region Laterality Modality Body N/A Computed Tomogra phy 10/27/2024 11:2 7 AM [employer] Impressions 10/27/2024 11:52 AM [employer] 1. Overall improved aeration with persistent trace [...] Celia Geronimo M.D. Narrative 10/27/2024 11:52 AM [employer] EXAMINATION: CT ABDOMEN PELVIS WO CONTRAST HISTORY: [...] Abdomen Ap 1 Vw (10/27/2024 8:25 AM [employer]) Anatomical Region Laterality Modality Body, Abdomen N/A Computed Radiogr aphy 10/27/2024 8:49 AM [employer] Impressions 10/27/2024 3:28 PM [employer]ER Mildly increased diffuse gaseous distention of colon compatible with ileus. Dictated by: Escobar Teran MD PHD The radiology attending physician has personally reviewed this study, and had reviewed and/or edited this written report and agrees with it. Electronically signed by: Dominik Eric M.D. Narrative 10/27/2024 3:28 PM [employer] EXAMINATION: Abdomen, one view. HISTORY: Evaluate for [...] by: Dominik Eric M.D. us Kelly Hi LACE [facility]ER IMG XR PROCEDURES Final R esult * POCT glucose (10/27/2024 6:10 AM [employer]ER) Glucose, POC 84 70 - 199 mg/dL Blood 10/27/2024 6:10 AM [employer] 10/27/2024 6:10 AM [employer] us Marcus Vergara MD LAB POCT ORDERABLES - DEVICE Fi nal Result [facility] [place] [address] * eGFR (10/27/2024 12:34 AM C[employer]ER) eGFR >90 >=60 mL/min/1. 73 m2 Comment: [...] reviewed 2021. Blood 10/27/2024 12:3 4 AM [employer] 10/27/2024 12:54 AM [employer] Marcus Vergara MD LAB BLOOD ORDERABLES Final Resu lt [facility] [place] [address] * (ABNORMAL) Manual Differential (10/27/2024 12:34 AM C[employer]AR [employer]OLER) Differential Manual [facility] Neutrophil abs 9.6(H) 1.5 - 6.5 K/cumm [facility] Imm gran abs 0.0 0.0 - 0.1 K/cumm [facility] Lymphocyte abs 0.0(L) 0.8 - 3.3 K/cumm [facility] Monocyte abs 0.1(L) 0.2 - 0.8 K/cumm [facility] Neutrophil pct 99.1 % [facility] Comment: Interpretive Data Percent cell count reference ranges are not reported, since discordance with absolute values may lead to misinterpretation of CBC data. Current Interpretive Data was last revised on 2017. Monocyte pct 0.9 % [facility] Comment: Interpretive Data Percent cell count reference ranges are not reported, since discordance with absolute values may lead to misinterpretation of CBC data. Current Interpretive Data was last revised on 2017. RBC morphology Present(A) [facility] Poikilocytosis Slight(A) [facility] Platelet estimate Adequate [facility] Blood 10/27/2024 12:3 4 AM [employer] 10/27/2024 12:54 AM [employer]ER Marcus Vergara MD LAB BLOOD ORDERABLES Edited Res ult - Final Performing Organization Address City/State/[facility] Co de Phone Number [facility] [place] [address] * (ABNORMAL) CBC without differential (10/27/2024 12:34 AM C[employer]AR [employer]OLER) Pathologist [facility] WBC 9.7 3.8 - 9.9 K/cumm Hgb 9.7(L) 11.9 - 15.5 g/dL [facility] Hct 28.6(L) 35.6 - 45.5 % [facility] Plt 163 150 - 400 K/cumm [facility] MPV 11.0 9.1 - 12.3 fL [facility] RBC 3.39(L) 3.90 - 5.20 M/cumm [facility] MCV 84.4 81.3 - 96.4 fL [facility] MCH 28.6 27.1 - 33.3 pg [facility] MCHC 33.9 32.3 - 35.7 g/dL [facility] RDW CV 16.5(H) 11.1 - 14.9 % [facility] RDW SD 50.9(H) 35.7 - 48.1 fL [facility] NRBC abs 0.07(H) 0.00 - 0.01 K/cumm [facility] Blood 10/27/2024 12:3 4 AM [employer] 10/27/2024 12:54 AM [employer] us Marcus Vergara MD LAB BLOOD ORDERABLES Final Resu lt [facility] [place] [address] * (ABNORMAL) Phosphorus (10/27/2024 12:34 AM C[employer]AR [employer]OLER) Pathologist [facility] Phosphorus, pl 1.6(L) 2.3 - 4.5 mg/dL Blood 10/27/2024 12:3 4 AM [employer]ER 10/27/2024 12:54 AM [employer] us Marcus Vergara MD LAB BLOOD ORDERABLES Final Resu lt [facility] [place] [employer] [place] [address] * Magnesium (10/27/2024 12:34 AM C[employer]AR [employer]OLER) Pathologist [facility] Magnesium 2.2 1.4 - 2.5 mg/dL Blood 10/27/2024 12:3 4 AM [employer]ER 10/27/2024 12:54 AM [employer]ER Marcus Vergara MD LAB BLOOD ORDERABLES Final Resu lt Performing Organization Address [facility] Co de Phone Number [facility] [place] [address] * (ABNORMAL) Hepatic function panel (10/27/2024 12:34 AM C[employer]AR [employer]OLER) [facility] Bilirubin, total 0.7 0.1 - 1.2 mg/dL Bilirubin, direct 0.4(H) 0.1 - 0.3 mg/dL [facility] Protein, pl 5.7(L) 6.5 - 8.5 g/dL [facility] Albumin 2.9(L) 3.5 - 5.0 g/dL [facility] Alk phos 228(H) 40 - 130 Units/L [facility] ALT 86(H) 7 - 45 Units/L [facility] AST 63(H) 10 - 45 Units/L [facility] Blood 10/27/2024 12:3 4 AM [employer] 10/27/2024 12:54 AM [employer] Jovany Justice NP LAB BLOOD ORDERABLES Final Result Performing Organization Address [facility] Co de Phone Number [facility] [employer] [place] [address] * (ABNORMAL) Basic metabolic panel (10/27/2024 12:34 AM C[employer]ER) Sodium 139 135 - 145 mmol/L Potassium, pl 3.8 3.3 - 4.9 mmol/L [facility] Chloride 105 97 - 110 mmol/L [facility] CO2 28 22 - 32 mmol/L [facility] Anion gap 6 2 - 15 mmol/L [facility] BUN 10 6 - 25 mg/dL [facility] Creatinine 0.50(L) 0.60 - 1.10 mg/dL [facility] Glucose 95 70 - 199 mg/dL [facility] Comment: Interpretive Data Fasting glucose >/= 126 [...] 2022. Calcium 7.4(L) 8.5 - 10.3 mg/dL [facility] Blood 10/27/2024 12:3 4 AM [employer]ER 10/27/2024 12:54 AM [employer] us Marcus Vergara MD LAB BLOOD ORDERABLES Final Resu lt [facility] [place] [address] * XR Abdomen Ap 1 Vw (10/26/2024 11:16 AM [employer]OLER) Anatomical Region Laterality Modality Body, Abdomen N/A Computed Radiogr aphy 10/26/2024 11:3 6 AM [employer]ER Impressions 10/26/2024 11:59 AM [employer]AR [employer]ER No significant change in mildly distended loops of small and large bowel, compatible with ileus. There is stool within sigmoid colon and rectum. No pneumatosis intestinalis. Dictated by: Celestine Villegas MD, Ph.D The radiology attending physician has personally reviewed this study, and had reviewed and/or edited this written report and agrees with it. Electronically signed by: Ann Glez M.D. Narrative 10/26/2024 11:59 AM [employer]OLER EXAMINATION: Abdomen, one view. HISTORY: Concern for [...] it. Electronically signed by: Ann Glez M.D. us Kelly Hi LACE [employer]ER IMG XR PROCEDURES Final R esult * Transfuse RBC (10/26/2024 8:54 AM C[employer]AR [employer]OLER) Blood us Marcus Vergara MD BLOOD TRANSFUSION ORDERABLES Fi nal Result [facility] [place] [address] * Prepare RBC: 1 Units (10/26/2024 2:32 AM CIGAR [employer]ER) Product code [id number] Unit Number [id number] [facility] Product Blood Type APOS [facility] Dispense Status PRESUMED TRANSFUSED [facility] Blood Venous blood specimen / Unknown 10/26/2024 2:32 AM C[employer]AR [employer]ER 10/26/2024 2:31 AM [employer]AR HEAD [employer]ER Narrative [facility] - 10/26/2024 8:00 PM CIGAR HEAD HOLER Are special requirements needed? (All products are leukoreduced and CMV- safe)- >Yes Date required:-[id number] Special Req 1:-Irradiated LRRBC # of [id number] Reasons:-BMT, Hgb <8 g/dL} Marcus Vergara MD BLOOD BANK PRODUCT ORDERABLES F inal Result Performing Organization Address [facility] Co de Phone Number [facility] [place] [address] * eGFR (10/26/2024 12:57 AM CIGAR HEAD HOLER) [facility] eGFR >90 >=60 mL/min/1. 73 m2 [...] reviewed 2021. Blood 10/26/2024 12:5 7 AM [employer]ER 10/26/2024 1:26 AM [employer]ER Marcus Vergara MD LAB BLOOD ORDERABLES Final Resu lt Performing Organization Address [facility] Co de Phone Number [facility] [place] [employer] [place] [address] * (ABNORMAL) Manual Differential (10/26/2024 12:57 AM CIGAR HEAD HOLER) [facility] Differential Manual Cells Counted 116 [facility] Neutrophil abs 6.8(H) 1.5 - 6.5 K/cumm [facility] Imm gran abs 0.1 0.0 - 0.1 K/cumm [facility] Lymphocyte abs 0.1(L) 0.8 - 3.3 K/cumm [facility] Monocyte abs 0.1(L) 0.2 - 0.8 K/cumm [facility] Neutrophil pct 97.3 % [facility] Comment: Interpretive Data Percent cell count reference ranges are not reported, since discordance with absolute values may lead to misinterpretation of CBC data. Current Interpretive Data was last revised on 2017. Lymphocyte pct 0.9 % [facility] Comment: Interpretive Data Percent cell count reference ranges are not reported, since discordance with absolute values may lead to misinterpretation of CBC data. Current Interpretive Data was last revised on 2017. Monocyte pct 0.9 % [facility] Comment: Interpretive Data Percent cell count reference ranges are not reported, since discordance with absolute values may lead to misinterpretation of CBC data. Current Interpretive Data was last revised on 2017. Metamyelocyte pct 0.9 % [facility] RBC morphology Normal [facility] Platelet estimate Decreased( A) [facility] Blood 10/26/2024 12:5 7 AM [employer]ER 10/26/2024 1:26 AM [employer]ER us Marcus Vergara MD LAB BLOOD ORDERABLES Edited Res ult - Final [facility] [place] [address] * aPTT (10/26/2024 12:57 AM CIGAR HEAD HOLER) aPTT 29 28 - 38 sec Comment: Interpretive Data Heparin therapeutic range: 66.0 - 100.0 seconds. Range based on correlation with therapeutic heparin activity range of 0.3 - 0.7 Units/mL. Current interpretive data was last revised on 2023. Blood 10/26/2024 12:5 7 AM C[employer]AR [employer]OLER 10/26/2024 1:30 AM CIGAR HEAD [employer]OLER Marcus Vergara MD LAB BLOOD ORDERABLES Final Resu lt [facility] [place] [address] * (ABNORMAL) Protime-INR (10/26/2024 12:57 AM CIGAR HEAD HOLER) Pathologist [facility] PT 15.7(H) 9.7 - 13.0 sec INR 1.44(H) 0.90 - 1.20 [facility] Comment: Interpretive data Oral anticoagulant therapeutic ranges: Venous thromboembolism prophylaxis or treatment: 2.0-3.0 CARDIOLOGY Standard range: 2.0-3.0 High-intensity range: 2.5-3.5 Refer to indication-specific guidelines for appropriate target ranges for prosthetic heart valve replacement. Current interpretive data was last revised on 2019. Blood 10/26/2024 12:5 7 AM C[employer]AR [employer]OLER 10/26/2024 1:30 AM [employer]ER Marcus Vergara MD LAB BLOOD ORDERABLES Final Resu lt [facility] [place] [address] * (ABNORMAL) CBC without differential (10/26/2024 12:57 AM CIGAR HEAD HOLER) Pathologist [facility] WBC 7.0 3.8 - 9.9 K/cumm Hgb 7.9(L) 11.9 - 15.5 g/dL [facility] Hct 23.5(L) 35.6 - 45.5 % [facility] Plt 105(L) 150 - 400 K/cumm [facility] MPV 11.4 9.1 - 12.3 fL [facility] RBC 2.68(L) 3.90 - 5.20 M/cumm [facility] MCV 87.7 81.3 - 96.4 fL [facility] MCH 29.5 27.1 - 33.3 pg [facility] MCHC 33.6 32.3 - 35.7 g/dL [facility] RDW CV 14.7 11.1 - 14.9 % [facility] RDW SD 47.1 35.7 - 48.1 fL [facility] NRBC abs 0.04(H) 0.00 - 0.01 K/cumm [facility] Blood 10/26/2024 12:5 7 AM C[employer]AR HEAD HOLER 10/26/2024 1:26 AM CIGAR HEAD HOLER us Marcus Vergara MD LAB BLOOD ORDERABLES Final Resu lt Performing Organization Address [facility] de Phone Number [facility] [place] [address] * Type and screen (10/26/2024 12:57 AM CIGAR HEAD HOLER) Bing, indirect Negative ABO Rh A Positive [facility] Blood 10/26/2024 12:5 7 AM C[employer]AR [employer]OLER 10/26/2024 1:21 AM CIGAR HEAD HOLER Narrative [facility] - 10/26/2024 2:30 AM C[employer]AR HEAD HOLER Has the patient had Daratumumab or Isatuximab in the past 6 months?->Unknown Result [facility] us Marcus Vergara MD LAB BLOOD BANK TEST ORDERABLES Final Result Performing Organization Address [facility] de Phone Number [facility] [place] [address] * (ABNORMAL) Uric acid (10/26/2024 12:57 AM CIGAR HEAD HOLER) Uric acid 0.6(L) 2.5 - 7.0 mg/dL Blood 10/26/2024 12:5 7 AM C[employer]AR HEAD [employer]OLER 10/26/2024 1:26 AM C[employer]AR HEAD H[employer]ER Narrative [facility] - 10/26/2024 1:58 AM C[employer]AR HEAD [employer]OLER Saturday and only. Morning draw. . us Marcus Vergara MD LAB BLOOD ORDERABLES Final Resu lt Performing Organization Address [facility] de Phone Number [facility] [place] [address] * (ABNORMAL) Phosphorus (10/26/2024 12:57 AM CIGAR HEAD HOLER) Phosphorus, pl 2.0(L) 2.3 - 4.5 mg/dL Blood 10/26/2024 12:5 7 AM C[employer]AR HEAD [employer]OLER 10/26/2024 1:26 AM C[employer]ER us Marcus Vergara MD LAB BLOOD ORDERABLES Final Resu lt Performing Organization Address [facility] [place] [address] * Magnesium (10/26/2024 12:57 AM CIGAR HEAD HOLER) Pathologist [facility] Magnesium 2.1 1.4 - 2.5 mg/dL Blood 10/26/2024 12:5 7 AM C[employer]AR HEAD [employer]OLER 10/26/2024 1:26 AM C[employer]AR [employer]ER us Marcus Vergara MD LAB BLOOD ORDERABLES Final Resu lt Performing Organization Address [facility] de Phone Number [facility] [place] [address] * (ABNORMAL) Lactate dehydrogenase (LD) (10/26/2024 12:57 AM CIGAR HEAD HOLER) Pathologist [facility] Lactate dehydrogenase (LDH) 310(H) 100 - 250 Units/L Blood 10/26/2024 12:5 7 AM C[employer]AR HEAD [employer]OLER 10/26/2024 1:26 AM CIGAR HEAD [employer]OLER Narrative [facility] - 10/26/2024 1:58 AM C[employer]AR [employer]OLER Saturday and only. Morning draw. us Marcus Vergara MD LAB BLOOD ORDERABLES Final Resu lt Performing Organization Address [facility] de Phone Number [facility] [place] [address] * (ABNORMAL) Bilirubin, direct (10/26/2024 12:57 AM CIGAR HEAD HOLER) Bilirubin, direct 0.4(H) 0.1 - 0.3 mg/dL Blood 10/26/2024 12:5 7 AM C[employer]AR HEAD HOLER 10/26/2024 1:26 AM C[employer]AR HEAD [employer]ER us Marcus Vergara MD LAB BLOOD ORDERABLES Final Resu lt [facility] [place] [address] * (ABNORMAL) Comprehensive metabolic panel (10/26/2024 12:57 AM CIGAR HEAD HOLER) Pathologist [facility] Sodium 138 135 - 145 mmol/L Potassium, pl 3.7 3.3 - 4.9 mmol/L [facility] Chloride 106 97 - 110 mmol/L [facility] CO2 26 22 - 32 mmol/L [facility] Anion gap 6 2 - 15 mmol/L [facility] BUN 11 6 - 25 mg/dL [facility] Creatinine 0.48(L) 0.60 - 1.10 mg/dL [facility] Glucose 103 70 - 199 mg/dL [facility] Comment: Interpretive Data Fasting glucose >/= 126 [...] 2022. Calcium 7.4(L) 8.5 - 10.3 mg/dL [facility] Bilirubin, total 0.7 0.1 - 1.2 mg/dL [facility] Protein, pl 5.1(L) 6.5 - 8.5 g/dL [facility] Albumin 2.6(L) 3.5 - 5.0 g/dL [facility] Alk phos 160(H) 40 - 130 Units/L [facility] ALT 56(H) 7 - 45 Units/L [facility] AST 44 10 - 45 Units/L [facility] Blood 10/26/2024 12:5 7 AM C[employer]AR HEAD [employer]OLER 10/26/2024 1:26 AM CIGAR HEAD HOLER Narrative [facility] - 10/26/2024 1:58 AM C[employer]AR [employer]OLER Saturday and only. Morning draw. Marcus Vergara MD LAB BLOOD ORDERABLES Final Resu lt Performing Organization Address [facility] Co de Phone Number [facility] Department [place] [employer] [place] [address] * POCT glucose (10/26/2024 12:54 AM CIGAR HEAD HOLER) Glucose, POC 107 70 - 199 mg/dL Blood 10/26/2024 12:5 4 AM CIGAR HEAD [employer]OLER 10/26/2024 12:54 AM CIGAR HEAD [employer]OLER Marcus Vergara MD LAB POCT ORDERABLES - DEVICE Fi nal Result Performing Organization Address [facility] Co de Phone Number [facility] Department [place] [employer] [place] [address] * POCT glucose (10/25/2024 12:24 PM CIGAR HEAD HOLER) Glucose, POC 109 70 - 199 mg/dL Blood 10/25/2024 12:2 4 PM C[employer]AR HEAD [employer]OLER 10/25/2024 12:24 PM C[employer]AR HEAD [employer]ER us Marcus Vergara MD LAB POCT ORDERABLES - DEVICE Fi nal Result Performing Organization Address [facility] Co de Phone Number [facility] [place] [place] [address] * POCT glucose (10/25/2024 7:50 AM CIGAR HEAD HOLER) Glucose, POC 114 70 - 199 mg/dL Blood 10/25/2024 7:50 AM C[employer]AR HEAD [employer]OLER 10/25/2024 7:50 AM C[employer]AR HEAD [employer]OLER Marcus Vergara MD LAB POCT ORDERABLES - DEVICE Fi nal Result Performing Organization Address [facility] Co de Phone Number [facility] [place] [address] * eGFR (10/25/2024 12:46 AM CIGAR HEAD HOLER) [facility] eGFR >90 >=60 mL/min/1. 73 m2 [...] reviewed 2021. Blood 10/25/2024 12:4 6 AM CIGAR HEAD HOLER 10/25/2024 12:59 AM CIGAR HEAD [employer]OLER us Marcus Vergara MD LAB BLOOD ORDERABLES Final Resu lt Performing Organization Address [facility]/ZIP Co de Phone Number [facility] [place] [address] * POCT glucose (10/25/2024 12:46 AM CIGAR HEAD HOLER) [facility] Glucose, POC 101 70 - 199 mg/dL Blood 10/25/2024 12:4 6 AM CIGAR HEAD HOLER 10/25/2024 12:46 AM CIGAR HEAD [employer]OLER us Marcus Vergara MD LAB POCT ORDERABLES - DEVICE Fi nal Result [facility] [place] [address] * (ABNORMAL) Manual Differential (10/25/2024 12:46 AM CIGAR HEAD HOLER) [facility] Differential Manual [facility] Neutrophil abs 0.9(L) 1.5 - 6.5 K/cumm [facility] Imm gran abs 0.0 0.0 - 0.1 K/cumm [facility] Lymphocyte abs 0.1(L) 0.8 - 3.3 K/cumm [facility] Monocyte abs 0.0(L) 0.2 - 0.8 K/cumm [facility] Neutrophil pct 85.3 % [facility] Comment: Interpretive Data Percent cell count reference ranges are not reported, since discordance with absolute values may lead to misinterpretation of CBC data. Current Interpretive Data was last revised on 2017. Lymphocyte pct 7.8 % [facility] Comment: Interpretive Data Percent cell count reference ranges are not reported, since discordance with absolute values may lead to misinterpretation of CBC data. Current Interpretive Data was last revised on 2017. Monocyte pct 2.6 % [facility] Comment: Interpretive Data Percent cell count reference ranges are not reported, since discordance with absolute values may lead to misinterpretation of CBC data. Current Interpretive Data was last revised on 2017. Myelocyte pct 3.4 % [facility] Promyelocyte pct 0.9 % [facility] RBC morphology Normal [facility] Platelet estimate Decreased( A) [facility] Blood 10/25/2024 12:4 6 AM C[employer]AR HEAD [employer]OLER 10/25/2024 12:59 AM C[employer]AR [employer]ER us Marcus Vergara MD LAB BLOOD ORDERABLES Final Resu lt Performing Organization Address [facility] Co de Phone Number [facility] [place] [place] [address] * (ABNORMAL) CBC without differential (10/25/2024 12:46 AM CIGAR HEAD HOLER) Pathologist [facility] WBC 1.1(L) 3.8 - 9.9 K/cumm Hgb 8.4(L) 11.9 - 15.5 g/dL [facility] Hct 24.1(L) 35.6 - 45.5 % [facility] Plt 58(L) 150 - 400 K/cumm [facility] MPV 12.6(H) 9.1 - 12.3 fL [facility] RBC 2.84(L) 3.90 - 5.20 M/cumm [facility] MCV 84.9 81.3 - 96.4 fL [facility] MCH 29.6 27.1 - 33.3 pg [facility] MCHC 34.9 32.3 - 35.7 g/dL [facility] RDW CV 14.4 11.1 - 14.9 % [facility] RDW SD 45.0 35.7 - 48.1 fL [facility] NRBC abs 0.03(H) 0.00 - 0.01 K/cumm [facility] Blood 10/25/2024 12:4 6 AM [facility] 10/25/2024 12:59 AM [facility] Marcus Vergara MD LAB BLOOD ORDERABLES Final Resu lt Performing Organization Address [facility]/ZIP Co de Phone Number [facility] [place] [address] * (ABNORMAL) Phosphorus (10/25/2024 12:46 AM CIGAR HEAD HOLER) Pathologist [facility] Phosphorus, pl 2.0(L) 2.3 - 4.5 mg/dL Blood 10/25/2024 12:4 6 AM CIGAR HEAD HOLER 10/25/2024 12:59 AM CIGAR HEAD [employer]OLER Marcus Vergara MD LAB BLOOD ORDERABLES Final Resu lt [facility] [place] [address] * Magnesium (10/25/2024 12:46 AM CIGAR HEAD HOLER) [facility] Magnesium 2.1 1.4 - 2.5 mg/dL Blood 10/25/2024 12:4 6 AM C[employer]AR HEAD HOLER 10/25/2024 12:59 AM [employer]AR HEAD [employer]OLER Marcus Vergara MD LAB BLOOD ORDERABLES Final Resu lt Performing Organization Address [facility] Co de Phone Number [facility] [place] [address] * (ABNORMAL) Hepatic function panel (10/25/2024 12:46 AM CIGAR HEAD HOLER) [facility] Bilirubin, total 0.7 0.1 - 1.2 mg/dL Bilirubin, direct 0.3 0.1 - 0.3 mg/dL [facility] Protein, pl 4.9(L) 6.5 - 8.5 g/dL [facility] Albumin 2.2(L) 3.5 - 5.0 g/dL [facility] Alk phos 130 40 - 130 Units/L [facility] ALT 39 7 - 45 Units/L [facility] AST 27 10 - 45 Units/L [facility] Blood 10/25/2024 12:4 6 AM C[employer]AR HEAD HOLER 10/25/2024 12:59 AM CIGAR HEAD HOLER Jovany Justice NP LAB BLOOD ORDERABLES Final Result Performing Organization Address [facility] [place] [address] * (ABNORMAL) Basic metabolic panel (10/25/2024 12:46 AM CIGAR HEAD HOLER) Sodium 135 135 - 145 mmol/L Potassium, pl 3.5 3.3 - 4.9 mmol/L [facility] Chloride 102 97 - 110 mmol/L [facility] CO2 27 22 - 32 mmol/L [facility] Anion gap 6 2 - 15 mmol/L [facility] BUN 12 6 - 25 mg/dL [facility] Creatinine 0.47(L) 0.60 - 1.10 mg/dL [facility] Glucose 106 70 - 199 mg/dL [facility] Comment: Interpretive Data Fasting glucose >/= 126 [...] 2022. Calcium 7.1(L) 8.5 - 10.3 mg/dL [facility] Blood 10/25/2024 12:4 6 AM CIGAR HEAD HOLER 10/25/2024 12:59 AM C[employer]AR HEAD [employer]OLER Marcus Vergara MD LAB BLOOD ORDERABLES Final Resu lt Performing Organization Address [facility]/ZIP Co de Phone Number [facility] Department [place] [employer] [place] [address] * POCT glucose (10/24/2024 5:52 PM CIGAR HEAD HOLER) Glucose, POC 122 70 - 199 mg/dL Blood 10/24/2024 5:52 PM CIGAR HEAD [employer]OLER 10/24/2024 5:52 PM [employer]IGAR HEAD [employer]OLER Marcus Vergara MD LAB POCT ORDERABLES - DEVICE Fi nal Result [facility] Department [place] [employer] [place] [address] * POCT glucose (10/24/2024 12:00 PM CIGAR HEAD HOLER) Pathologist [facility] Glucose, POC 146 70 - 199 mg/dL Blood 10/24/2024 12:0 0 PM C[employer]AR HEAD HOLER 10/24/2024 12:00 PM [employer]AR HEAD [employer]OLER Marcus Vergara MD LAB POCT ORDERABLES - DEVICE Fi nal Result Performing Organization Address [facility]/ZIP Co de Phone Number [facility] [place] [address] * (ABNORMAL) Immature platelet fraction (10/24/2024 12:36 AM CIGAR HEAD HOLER) [facility] IPF 11.5(H) 1.6 - 10.1 % Blood 10/24/2024 12:3 6 AM CIGAR HEAD HOLER 10/24/2024 1:40 AM C[employer]AR HEAD [employer]OLER aMrcus Vergara MD LAB BLOOD ORDERABLES Final Resu lt Performing Organization Address [facility] Co de Phone Number [facility] [place] [address] * eGFR (10/24/2024 12:36 AM CIGAR HEAD HOLER) [facility] eGFR >90 >=60 mL/min/1. 73 m2 [...] reviewed 2021. Blood 10/24/2024 12:3 6 AM C[employer]AR HEAD HOLER 10/24/2024 1:19 AM CIGAR HEAD HOLER us Marcus Vergara MD LAB BLOOD ORDERABLES Final Resu lt [facility] [place] [address] * (ABNORMAL) Manual Differential (10/24/2024 12:36 AM CIGAR HEAD HOLER) Differential Manual Cells Counted 113 [facility] Neutrophil abs 1.4(L) 1.5 - 6.5 K/cumm [facility] Imm gran abs 0.0 0.0 - 0.1 K/cumm [facility] Lymphocyte abs 0.0(L) 0.8 - 3.3 K/cumm [facility] Monocyte abs 0.0(L) 0.2 - 0.8 K/cumm [facility] Neutrophil pct 93.8 % [facility] Comment: Interpretive Data Percent cell count reference ranges are not reported, since discordance with absolute values may lead to misinterpretation of CBC data. Current Interpretive Data was last revised on 2017. Lymphocyte pct 3.5 % [facility] Comment: Interpretive Data Percent cell count reference ranges are not reported, since discordance with absolute values may lead to misinterpretation of CBC data. Current Interpretive Data was last revised on 2017. Monocyte pct 2.7 % [facility] Comment: Interpretive Data Percent cell count reference ranges are not reported, since discordance with absolute values may lead to misinterpretation of CBC data. Current Interpretive Data was last revised on 2017. RBC morphology Normal [facility] Platelet estimate Decreased( A) [facility] Blood 10/24/2024 12:3 6 AM C[employer]AR HEAD HOLER 10/24/2024 1:19 AM CIGAR HEAD [employer]OLER us Marcus Vergara MD LAB BLOOD ORDERABLES Edited Res ult - Final [facility] [place] [address] * (ABNORMAL) CBC without differential (10/24/2024 12:36 AM CIGAR HEAD HOLER) Pathologist [facility] WBC 1.5(L) 3.8 - 9.9 K/cumm Hgb 10.1(L) 11.9 - 15.5 g/dL [facility] Hct 28.4(L) 35.6 - 45.5 % [facility] Plt 33(C) 150 - 400 K/cumm [facility] Comment:Platelet count confi rmed by additional testing. Critical platelet count threshold determined by patient location: Outpatient:<50 K-cumm , Inpatient:<20 K-cumm , BMT service:<10 K-cumm MPV 13.0(H) 9.1 - 12.3 fL [facility] RBC 3.40(L) 3.90 - 5.20 M/cumm [facility] MCV 83.5 81.3 - 96.4 fL [facility] MCH 29.7 27.1 - 33.3 pg [facility] MCHC 35.6 32.3 - 35.7 g/dL [facility] RDW CV 14.5 11.1 - 14.9 % [facility] RDW SD 44.1 35.7 - 48.1 fL [facility] NRBC abs 0.00 0.00 - 0.01 K/cumm [facility] Blood 10/24/2024 12:3 6 AM C[employer]AR HEAD [employer]OLER 10/24/2024 1:19 AM CIGAR HEAD [employer]OLER us Marcus Vergara MD LAB BLOOD ORDERABLES Final Resu lt [facility] [place] [address] * (ABNORMAL) Phosphorus (10/24/2024 12:36 AM CIGAR HEAD HOLER) Pathologist [facility] Phosphorus, pl 1.9(L) 2.3 - 4.5 mg/dL Blood 10/24/2024 12:3 6 AM CIGAR HEAD HOLER 10/24/2024 1:19 AM CIGAR HEAD [employer]OLER us Marcus Vergara MD LAB BLOOD ORDERABLES Final Resu lt Performing Organization Address [facility] Co de Phone Number [facility] [place] [employer] [place] [address] * Magnesium (10/24/2024 12:36 AM CIGAR HEAD HOLER) Magnesium 1.7 1.4 - 2.5 mg/dL Blood 10/24/2024 12:3 6 AM CIGAR HEAD HOLER 10/24/2024 1:19 AM CIGAR HEAD HOLER Result [facility] Marcus Vergara MD LAB BLOOD ORDERABLES Final Resu lt Performing Organization Address [facility] de Phone Number [facility] Department [place] [place] [address] * (ABNORMAL) Hepatic function panel (10/24/2024 12:36 AM CIGAR HEAD HOLER) Bilirubin, total 1.0 0.1 - 1.2 mg/dL Bilirubin, direct 0.5(H) 0.1 - 0.3 mg/dL [facility] Protein, pl 5.3(L) 6.5 - 8.5 g/dL [facility] Albumin 2.4(L) 3.5 - 5.0 g/dL [facility] Alk phos 115 40 - 130 Units/L [facility] ALT 42 7 - 45 Units/L [facility] AST 21 10 - 45 Units/L [facility] Blood 10/24/2024 12:3 6 AM CIGAR HEAD HOLER 10/24/2024 1:19 AM CIGAR HEAD HOLER Result [facility] Jovany Justice NP LAB BLOOD ORDERABLES Final Result Performing Organization Address [facility] de Phone Number [facility] [place] [address] * (ABNORMAL) Basic metabolic panel (10/24/2024 12:36 AM CIGAR HEAD HOLER) Sodium 131(L) 135 - 145 mmol/L Potassium, pl 3.7 3.3 - 4.9 mmol/L [facility] Chloride 98 97 - 110 mmol/L [facility] CO2 26 22 - 32 mmol/L [facility] Anion gap 7 2 - 15 mmol/L [facility] BUN 12 6 - 25 mg/dL [facility] Creatinine 0.39(L) 0.60 - 1.10 mg/dL [facility] Glucose 140 70 - 199 mg/dL [facility] Comment: Interpretive Data Fasting glucose >/= 126 [...] 2022. Calcium 7.0(L) 8.5 - 10.3 mg/dL [facility] Blood 10/24/2024 12:3 6 AM CIGAR HEAD HOLER 10/24/2024 1:19 AM CIGAR HEAD HOLER us Marcus Vergara MD LAB BLOOD ORDERABLES Final Resu lt [facility] [place] [address] * POCT glucose (10/24/2024 12:35 AM CIGAR HEAD HOLER) Glucose, POC 141 70 - 199 mg/dL Blood 10/24/2024 12:3 5 AM CIGAR HEAD HOLER 10/24/2024 12:35 AM CIGAR HEAD HOLER us Marcus Vergara MD LAB POCT ORDERABLES - DEVICE Fi nal Result DAVID GARCÍA [facility] [employer] [place] [address] * POCT glucose (10/23/2024 11:54 AM CIGAR HEAD HOLER) Glucose, POC 189 70 - 199 mg/dL Blood 10/23/2024 11:5 4 AM CIGAR HEAD HOLER 10/23/2024 11:54 AM CIGAR HEAD HOLER Marcus Vergara MD LAB POCT ORDERABLES - DEVICE Fi nal Result Performing Organization Address [facility] de Phone Number DAVID [facility] [place] [address] * XR Abdomen Ap 1 Vw (10/23/2024 8:35 AM CIGAR HEAD HOLER) Anatomical Region Laterality Modality Body, Abdomen N/A Computed Radiogr aphy 10/23/2024 8:40 AM CIGAR HEAD HOLER Impressions 10/23/2024 8:40 AM CIGAR HEAD HOLER Mild gaseous distention of the colon with stool and gas throughout the colon to the level of the rectum, compatible with ileus. No supine evidence of pneumoperitoneum. No pneumatosis or portal venous gas. Electronically signed by: Josselyn Robles M.D. Narrative 10/23/2024 8:40 AM CIGAR HEAD HOLER EXAMINATION: Abdomen, one view. HISTORY: Abdominal pain. [...] gas. Electronically signed by: Josselyn Robles M.D. Jovany S. Swinger LACE W[employer]ER IMG XR PROCEDURES Final Res ult * POCT glucose (10/23/2024 5:15 AM CIGAR HEAD HOLER) Pathologist [facility] Glucose, POC 109 70 - 199 mg/dL Blood 10/23/2024 5:15 AM CIGAR HEAD HOLER 10/23/2024 5:15 AM CIGAR HEAD HOLER us Marcus Vergara MD LAB POCT ORDERABLES - DEVICE Fi nal Result Performing Organization Address [facility] Co de Phone Number [facility] [place] [address] * Immature platelet fraction (10/23/2024 3:11 AM CIGAR HEAD HOLER) [facility] IPF 8.4 1.6 - 10.1 % Blood 10/23/2024 3:11 AM CIGAR HEAD HOLER 10/23/2024 3:33 AM CIGAR HEAD HOLER us Marcus Vergara MD LAB BLOOD ORDERABLES Final Resu lt Performing Organization Address [facility] de Phone Number [facility] [place] [address] * eGFR (10/23/2024 3:11 AM CIGAR HEAD HOLER) [facility] eGFR >90 >=60 mL/min/1. 73 m2 [...] last reviewed 2021. Blood 10/23/2024 3:11 AM CIGAR HEAD HOLER 10/23/2024 3:29 AM CIGAR HEAD HOLER us Marcus Vergara MD LAB BLOOD ORDERABLES Final Resu lt [facility] [place] [address] * (ABNORMAL) Manual Differential (10/23/2024 3:11 AM CIGAR HEAD HOLER) Differential Manual Cells Counted 104 [facility] Neutrophil abs 0.4(C) 1.5 - 6.5 K/cumm [facility] Comment:BMT patient, result not critical Imm gran abs 0.0 0.0 - 0.1 K/cumm [facility] Lymphocyte abs 0.1(L) 0.8 - 3.3 K/cumm [facility] Monocyte abs 0.0(L) 0.2 - 0.8 K/cumm [facility] Neutrophil pct 80.8 % [facility] Comment: Interpretive Data Percent cell count reference ranges are not reported, since discordance with absolute values may lead to misinterpretation of CBC data. Current Interpretive Data was last revised on 2017. Lymphocyte pct 17.3 % [facility] Comment: Interpretive Data Percent cell count reference ranges are not reported, since discordance with absolute values may lead to misinterpretation of CBC data. Current Interpretive Data was last revised on 2017. Monocyte pct 1.9 % [facility] Comment: Interpretive Data Percent cell count reference ranges are not reported, since discordance with absolute values may lead to misinterpretation of CBC data. Current Interpretive Data was last revised on 2017. RBC morphology Normal [facility] Platelet estimate Decreased( A) [facility] Blood 10/23/2024 3:11 AM CIGAR HEAD HOLER 10/23/2024 3:29 AM CIGAR HEAD HOLER us Marcus Vergara MD LAB BLOOD ORDERABLES Edited Res ult - Final [facility] [place] [address] * (ABNORMAL) CBC without differential (10/23/2024 3:11 AM CIGAR HEAD HOLER) Pathologist [facility] WBC 0.5(C) 3.8 - 9.9 K/cumm Comment:Consistent with prev ious reported value Hgb 8.3(L) 11.9 - 15.5 g/dL [facility] Hct 24.2(L) 35.6 - 45.5 % [facility] Plt 18(C) 150 - 400 K/cumm [facility] Comment:Platelet count confi rmed by additional testing. Critical platelet count threshold determined by patient location: Outpatient:<50 K-cumm , Inpatient:<20 K-cumm , BMT service:<10 K-cumm MPV 12.7(H) 9.1 - 12.3 fL [facility] RBC 2.79(L) 3.90 - 5.20 M/cumm [facility] MCV 86.7 81.3 - 96.4 fL [facility] MCH 29.7 27.1 - 33.3 pg [facility] MCHC 34.3 32.3 - 35.7 g/dL [facility] RDW CV 14.7 11.1 - 14.9 % [facility] RDW SD 47.5 35.7 - 48.1 fL [facility] NRBC abs 0.00 0.00 - 0.01 K/cumm [facility] Blood 10/23/2024 3:11 AM CIGAR HEAD HOLER 10/23/2024 3:29 AM CIGAR HEAD HOLER us Marcus Vergara MD LAB BLOOD ORDERABLES Final Resu lt [facility] [place] [address] * Phosphorus (10/23/2024 3:11 AM CIGAR HEAD HOLER) Phosphorus, pl 2.5 2.3 - 4.5 mg/dL Blood 10/23/2024 3:11 AM CIGAR HEAD HOLER 10/23/2024 3:29 AM CIGAR HEAD HOLER Result [facility] Marcus Vergara MD LAB BLOOD ORDERABLES Final Resu lt Performing Organization Address [facility] de Phone Number [facility] [place] [address] * Magnesium (10/23/2024 3:11 AM CIGAR HEAD HOLER) Pathologist [facility] Magnesium 2.2 1.4 - 2.5 mg/dL Blood 10/23/2024 3:11 AM CIGAR HEAD HOLER 10/23/2024 3:29 AM CIGAR HEAD HOLER Result [facility] Marcus Vergara MD LAB BLOOD ORDERABLES Final Resu lt Performing Organization Address [facility] de Phone Number [facility] [place] [place] [address] * (ABNORMAL) Hepatic function panel (10/23/2024 3:11 AM CIGAR HEAD HOLER) Pathologist [facility] Bilirubin, total 0.8 0.1 - 1.2 mg/dL Bilirubin, direct 0.2 0.1 - 0.3 mg/dL [facility] Comment:Hemolyzed; result ma y be falsely decreased Protein, pl 5.3(L) 6.5 - 8.5 g/dL [facility] Albumin 2.4(L) 3.5 - 5.0 g/dL [facility] Alk phos 93 40 - 130 Units/L [facility] ALT 50(H) 7 - 45 Units/L [facility] AST 36 10 - 45 Units/L [facility] Comment:Hemolyzed; result ma y be falsely elevated Blood 10/23/2024 3:11 AM CIGAR HEAD HOLER 10/23/2024 3:29 AM CIGAR HEAD HOLER Result [facility] Jovany Justice NP LAB BLOOD ORDERABLES Final Result DAVID [facility] [place] [address] * (ABNORMAL) Basic metabolic panel (10/23/2024 3:11 AM CIGAR HEAD HOLER) [facility] Sodium 138 135 - 145 mmol/L Potassium, pl 4.5 3.3 - 4.9 mmol/L [facility] Comment:Hemolyzed; Potassium value may be falsely elevated by as much as 0.3-0.5 mmol/L. Suggest redraw and reanalysis. Chloride 106 97 - 110 mmol/L [facility] CO2 26 22 - 32 mmol/L [facility] Anion gap 6 2 - 15 mmol/L [facility] BUN 13 6 - 25 mg/dL [facility] Creatinine 0.45(L) 0.60 - 1.10 mg/dL [facility] Glucose 102 70 - 199 mg/dL [facility] Comment: Interpretive Data Fasting glucose >/= 126 [...] 2022. Calcium 7.4(L) 8.5 - 10.3 mg/dL [facility] Blood 10/23/2024 3:11 AM CIGAR HEAD HOLER 10/23/2024 3:29 AM CIGAR HEAD HOLER us Marcus Vergara MD LAB BLOOD ORDERABLES Final Resu lt DAVID [facility] [place] [address] * POCT glucose (10/22/2024 11:12 PM CIGAR HEAD HOLER) Glucose, POC 101 70 - 199 mg/dL Blood 10/22/2024 11:1 2 PM CIGAR HEAD HOLER 10/22/2024 11:12 PM CIGAR HEAD HOLER Result Roseanna Vergara MD LAB POCT ORDERABLES - DEVICE Fi nal Result Performing Organization Address [facility] Phone Number [facility] [place] [address] * POCT glucose (10/22/2024 6:07 PM CIGAR HEAD HOLER) Glucose, POC 133 70 - 199 mg/dL Blood 10/22/2024 6:07 PM CIGAR HEAD HOLER 10/22/2024 6:07 PM CIGAR HEAD HOLER Result Roseanna Vergara MD LAB POCT ORDERABLES - DEVICE Fi nal Result Performing Organization Address [facility] Phone Number [facility] [place] [employer] [place] [address] * POCT glucose (10/22/2024 12:13 PM CIGAR HEAD HOLER) Glucose, POC 143 70 - 199 mg/dL Blood 10/22/2024 12:1 3 PM CIGAR HEAD HOLER 10/22/2024 12:13 PM CIGAR HEAD HOLER Result Roseanna Vergara MD LAB POCT ORDERABLES - DEVICE Fi nal Result Performing Organization Address [facility] de Phone Number [facility] [employer] [place] [address] * Immature platelet fraction (10/22/2024 3:32 AM CIGAR HEAD HOLER) IPF 6.5 1.6 - 10.1 % Blood 10/22/2024 3:32 AM CIGAR HEAD HOLER 10/22/2024 3:51 AM CIGAR HEAD HOLER Result Roseanna Vergara MD LAB BLOOD ORDERABLES Final Resu lt Performing Organization Address [facility] de Phone Number DAVID [facility] [place] [address] * eGFR (10/22/2024 3:32 AM CIGAR HEAD HOLER) eGFR >90 >=60 mL/min/1. 73 m2 Comment: [...] last reviewed 2021. Blood 10/22/2024 3:32 AM CIGAR HEAD HOLER 10/22/2024 3:46 AM CIGAR HEAD HOLER us Marcus Vergara MD LAB BLOOD ORDERABLES Final Resu lt Performing Organization Address [facility] de Phone Number DAVID [facility] Department [place] [employer] [place] [address] * POCT glucose (10/22/2024 3:32 AM CIGAR HEAD HOLER) Glucose, POC 115 70 - 199 mg/dL Blood 10/22/2024 3:32 AM CIGAR HEAD HOLER 10/22/2024 3:32 AM CIGAR HEAD HOLER Marcus Vergara MD LAB POCT ORDERABLES - DEVICE Fi nal Result Performing Organization Address [facility]/ZIP Co de Phone Number DAVID GARCÍA [facility] [place] [address] * (ABNORMAL) Manual Differential (10/22/2024 3:32 AM CIGAR HEAD HOLER) Differential Manual Cells Counted 104 [facility] Neutrophil abs 0.4(C) 1.5 - 6.5 K/cumm [facility] Comment:BMT patient, result not critical Imm gran abs 0.0 0.0 - 0.1 K/cumm [facility] Lymphocyte abs 0.0(L) 0.8 - 3.3 K/cumm [facility] Monocyte abs 0.0(L) 0.2 - 0.8 K/cumm [facility] Neutrophil pct 88.4 % [facility] Comment: Interpretive Data Percent cell count reference ranges are not reported, since discordance with absolute values may lead to misinterpretation of CBC data. Current Interpretive Data was last revised on 2017. Lymphocyte pct 7.7 % [facility] Comment: Interpretive Data Percent cell count reference ranges are not reported, since discordance with absolute values may lead to misinterpretation of CBC data. Current Interpretive Data was last revised on 2017. Monocyte pct 2.9 % [facility] Comment: Interpretive Data Percent cell count reference ranges are not reported, since discordance with absolute values may lead to misinterpretation of CBC data. Current Interpretive Data was last revised on 2017. Metamyelocyte pct 1.0 % [facility] RBC morphology Normal [facility] Platelet estimate Decreased( A) [facility] Blood 10/22/2024 3:32 AM CIGAR HEAD HOLER 10/22/2024 3:46 AM CIGAR HEAD HOLER us Marcus Vergara MD LAB BLOOD ORDERABLES Edited Res ult - Final DAVID GARCÍA [facility] [place] [address] * (ABNORMAL) CBC without differential (10/22/2024 3:32 AM CIGAR HEAD HOLER) WBC 0.4(C) 3.8 - 9.9 K/cumm Comment:Consistent with prev ious reported value Hgb 8.0(L) 11.9 - 15.5 g/dL [facility] Hct 23.0(L) 35.6 - 45.5 % [facility] Plt 15(C) 150 - 400 K/cumm [facility] Comment:Platelet count confi rmed by additional testing. Critical platelet count threshold determined by patient location: Outpatient:<50 K-cumm , Inpatient:<20 K-cumm , BMT service:<10 K-cumm MPV 13.1(H) 9.1 - 12.3 fL [facility] RBC 2.65(L) 3.90 - 5.20 M/cumm [facility] MCV 86.8 81.3 - 96.4 fL [facility] MCH 30.2 27.1 - 33.3 pg [facility] MCHC 34.8 32.3 - 35.7 g/dL [facility] RDW CV 15.1(H) 11.1 - 14.9 % [facility] RDW SD 48.1 35.7 - 48.1 fL [facility] NRBC abs 0.00 0.00 - 0.01 K/cumm [facility] Blood 10/22/2024 3:32 AM CIGAR HEAD HOLER 10/22/2024 3:46 AM CIGAR HEAD HOLER us Marcus Vergara MD LAB BLOOD ORDERABLES Final Resu lt [facility] [place] [address] * Type and screen (10/22/2024 3:32 AM CIGAR HEAD HOLER) Bing, indirect Negative ABO Rh A Positive [facility] Blood 10/22/2024 3:32 AM CIGAR HEAD HOLER 10/22/2024 3:47 AM CIGAR HEAD HOLER Narrative [facility] - 10/22/2024 5:09 AM CIGAR HEAD HOLER Has the patient had Daratumumab or Isatuximab in the past 6 months?->Unknown Result [facility] Marcus Vergara MD LAB BLOOD BANK TEST ORDERABLES Final Result Performing Organization Address [facility] [place] [address] * (ABNORMAL) Uric acid (10/22/2024 3:32 AM CIGAR HEAD HOLER) Uric acid 0.5(L) 2.5 - 7.0 mg/dL Comment:Result maybe falsely decreased due to [employer] (Rasburicase) Blood 10/22/2024 3:32 AM CIGAR HEAD HOLER 10/22/2024 3:46 AM CIGAR HEAD HOLER Narrative [facility] - 10/22/2024 4:18 AM CIGAR HEAD HOLER Saturday and only. Morning draw. . Result [facility] Marcus Vergara MD LAB BLOOD ORDERABLES Final Resu lt Performing Organization Address [facility] de Phone Number [facility] [place] [place] [address] * (ABNORMAL) Phosphorus (10/22/2024 3:32 AM CIGAR HEAD HOLER) Phosphorus, pl 1.8(L) 2.3 - 4.5 mg/dL Blood 10/22/2024 3:32 AM CIGAR HEAD HOLER 10/22/2024 3:46 AM CIGAR HEAD HOLER Result [facility] Marcus Vergara MD LAB BLOOD ORDERABLES Final Resu lt Performing Organization Address [facility] Co de Phone Number [facility] [place] [address] * Magnesium (10/22/2024 3:32 AM CIGAR HEAD HOLER) Magnesium 1.9 1.4 - 2.5 mg/dL Blood 10/22/2024 3:32 AM CIGAR HEAD HOLER 10/22/2024 3:46 AM CIGAR HEAD HOLER us Marcus Vergara MD LAB BLOOD ORDERABLES Final Resu lt Performing Organization Address [facility] Co de Phone Number [facility] [place] [address] * Lactate dehydrogenase (LD) (10/22/2024 3:32 AM CIGAR HEAD HOLER) Lactate dehydrogenase (LDH) 197 100 - 250 Units/L Blood 10/22/2024 3:32 AM CIGAR HEAD HOLER 10/22/2024 3:46 AM CIGAR HEAD HOLER Narrative [facility] - 10/22/2024 4:18 AM CIGAR HEAD HOLER Saturday and only. Morning draw. Marcus Vergara MD LAB BLOOD ORDERABLES Final Resu lt Performing Organization Address [facility] de Phone Number [facility] [place] [address] * (ABNORMAL) Bilirubin, direct (10/22/2024 3:32 AM CIGAR HEAD HOLER) Pathologist [facility] Bilirubin, direct 0.5(H) 0.1 - 0.3 mg/dL Blood 10/22/2024 3:32 AM CIGAR HEAD HOLER 10/22/2024 3:46 AM CIGAR HEAD HOLER Marcus Vergara MD LAB BLOOD ORDERABLES Final Resu lt Performing Organization Address [facility] Co de Phone Number [facility] [place] [place] [address] * (ABNORMAL) Comprehensive metabolic panel (10/22/2024 3:32 AM CIGAR HEAD HOLER) Sodium 141 135 - 145 mmol/L Potassium, pl 4.2 3.3 - 4.9 mmol/L [facility] Chloride 109 97 - 110 mmol/L [facility] CO2 26 22 - 32 mmol/L [facility] Anion gap 6 2 - 15 mmol/L [facility] BUN 16 6 - 25 mg/dL [facility] Creatinine 0.44(L) 0.60 - 1.10 mg/dL [facility] Glucose 110 70 - 199 mg/dL [facility] Comment: Interpretive Data Fasting glucose >/= 126 [...] 2022. Calcium 7.0(L) 8.5 - 10.3 mg/dL [facility] Bilirubin, total 0.8 0.1 - 1.2 mg/dL [facility] Protein, pl 5.2(L) 6.5 - 8.5 g/dL [facility] Albumin 2.3(L) 3.5 - 5.0 g/dL [facility] Alk phos 79 40 - 130 Units/L [facility] ALT 38 7 - 45 Units/L [facility] AST 20 10 - 45 Units/L [facility] Blood 10/22/2024 3:32 AM CIGAR HEAD HOLER 10/22/2024 3:46 AM CIGAR HEAD HOLER Narrative [facility] - 10/22/2024 4:18 AM CIGAR HEAD HOLER Saturday and only. Morning draw. Marcus Vergara MD LAB BLOOD ORDERABLES Final Resu lt [facility] [place] [address] * POCT glucose (10/21/2024 9:21 PM CIGAR HEAD HOLER) [facility] Glucose, POC 114 70 - 199 mg/dL Blood 10/21/2024 9:21 PM CIGAR HEAD HOLER 10/21/2024 9:21 PM CIGAR HEAD HOLER Marcus Vergara MD LAB POCT ORDERABLES - DEVICE Fi nal Result Performing Organization Address [facility] de Phone Number [facility] [place] [address] * Vancomycin level trough (10/21/2024 7:06 PM CIGAR HEAD HOLER) Vancomycin trough 17.0 10.0 - 20.0 mcg/mL Comment:Repeated and Verifie d Blood 10/21/2024 7:06 PM CIGAR HEAD HOLER 10/21/2024 7:16 PM CIGAR HEAD HOLER Jeanine Dupont MD LAB BLOOD ORDERABLES Final Result Performing Organization Address [facility] Phone Number [facility] [place] [address] * POCT glucose (10/21/2024 7:05 PM CIGAR HEAD HOLER) Glucose, POC 127 70 - 199 mg/dL Blood 10/21/2024 7:05 PM CIGAR HEAD HOLER 10/21/2024 7:05 PM CIGAR HEAD [employer]ER Marcus Vergara MD LAB POCT ORDERABLES - DEVICE Fi nal Result Performing Organization Address [facility] Phone Number [facility] [place] [address] * Vancomycin level trough (10/21/2024 4:32 PM CIGAR HEAD HOLER) Vancomycin trough See Comment 10.0 - 20.0 mcg/mL Comment: Credited; Hemolyzed Specimen Telephone report made to: Candace KNIGHT) on 10/21/2024 18:35:51 CIGAR HEAD HOLER by KG . Blood 10/21/2024 4:32 PM CIGAR HEAD HOLER 10/21/2024 4:48 PM CIGAR HEAD HOLER Jeanine Dupont MD LAB BLOOD ORDERABLES Final Result Performing Organization Address [facility] Co de Phone Number [facility] [place] [address] * POCT glucose (10/21/2024 11:53 AM CIGAR HEAD HOLER) Glucose, POC 116 70 - 199 mg/dL Blood 10/21/2024 11:5 3 AM CIGAR HEAD HOLER 10/21/2024 11:53 AM CIGAR HEAD HOLER us Marcus Vergara MD LAB POCT ORDERABLES - DEVICE Fi nal Result Performing Organization Address [facility] Co de Phone Number [facility] [place] [address] * POCT glucose (10/21/2024 3:22 AM CIGAR HEAD HOLER) [facility] Glucose, POC 130 70 - 199 mg/dL Blood 10/21/2024 3:22 AM CIGAR HEAD HOLER 10/21/2024 3:22 AM CIGAR HEAD HOLER us Marcus Vergara MD LAB POCT ORDERABLES - DEVICE Fi nal Result Performing Organization Address [facility] Co de Phone Number [facility] [place] [address] * Immature platelet fraction (10/21/2024 3:15 AM CIGAR HEAD HOLER) [facility] IPF 3.9 1.6 - 10.1 % Blood 10/21/2024 3:15 AM CIGAR HEAD HOLER 10/21/2024 4:06 AM CIGAR HEAD HOLER us Marcus Vergara MD LAB BLOOD ORDERABLES Final Resu lt Performing Organization Address [facility]/[place] [address] * eGFR (10/21/2024 3:15 AM CIGAR HEAD HOLER) [facility] eGFR >90 >=60 mL/min/1. 73 m2 [...] last reviewed 2021. Blood 10/21/2024 3:15 AM CIGAR HEAD HOLER 10/21/2024 4:03 AM CIGAR HEAD HOLER us Marcus Vergara MD LAB BLOOD ORDERABLES Final Resu lt [facility] [place] [address] * (ABNORMAL) Manual Differential (10/21/2024 3:15 AM CIGAR HEAD HOLER) Differential Manual Cells Counted 34 [facility] Neutrophil abs 0.2(C) 1.5 - 6.5 K/cumm [facility] Comment:BMT patient, result not critical Imm gran abs 0.0 0.0 - 0.1 K/cumm [facility] Lymphocyte abs 0.0(L) 0.8 - 3.3 K/cumm [facility] Monocyte abs 0.0(L) 0.2 - 0.8 K/cumm [facility] Neutrophil pct 88.3 % [facility] Comment: Interpretive Data Percent cell count reference ranges are not reported, since discordance with absolute values may lead to misinterpretation of CBC data. Current Interpretive Data was last revised on 2017. Lymphocyte pct 5.9 % [facility] Comment: Interpretive Data Percent cell count reference ranges are not reported, since discordance with absolute values may lead to misinterpretation of CBC data. Current Interpretive Data was last revised on 2017. Monocyte pct 2.9 % [facility] Comment: Interpretive Data Percent cell count reference ranges are not reported, since discordance with absolute values may lead to misinterpretation of CBC data. Current Interpretive Data was last revised on 2017. Promyelocyte pct 2.9 % [facility] RBC morphology Normal [facility] Platelet estimate Decreased( A) [facility] Blood 10/21/2024 3:15 AM CIGAR HEAD HOLER 10/21/2024 4:03 AM CIGAR HEAD HOLER us Marcus Vergara MD LAB BLOOD ORDERABLES Final Resu lt [facility] [place] [address] * (ABNORMAL) CBC without differential (10/21/2024 3:15 AM CIGAR HEAD HOLER) WBC 0.2(C) 3.8 - 9.9 K/cumm Comment:Consistent with prev ious reported value Hgb 8.0(L) 11.9 - 15.5 g/dL [facility] Hct 23.0(L) 35.6 - 45.5 % [facility] Plt 16(C) 150 - 400 K/cumm [facility] Comment:Platelet count confi rmed by additional testing. Critical platelet count threshold determined by patient location: Outpatient:<50 K-cumm , Inpatient:<20 K-cumm , BMT service:<10 K-cumm MPV 10.8 9.1 - 12.3 fL [facility] RBC 2.64(L) 3.90 - 5.20 M/cumm [facility] MCV 87.1 81.3 - 96.4 fL [facility] MCH 30.3 27.1 - 33.3 pg [facility] MCHC 34.8 32.3 - 35.7 g/dL [facility] RDW CV 15.1(H) 11.1 - 14.9 % [facility] RDW SD 48.6(H) 35.7 - 48.1 fL [facility] NRBC abs 0.00 0.00 - 0.01 K/cumm [facility] Blood 10/21/2024 3:15 AM CIGAR HEAD HOLER 10/21/2024 4:03 AM CIGAR HEAD [employer]OLER Marcus Vergara MD LAB BLOOD ORDERABLES Final Resu lt Performing Organization Address [facility] Co de Phone Number [facility] [place] [place] [address] * (ABNORMAL) Phosphorus (10/21/2024 3:15 AM CIGAR HEAD HOLER) Phosphorus, pl 2.1(L) 2.3 - 4.5 mg/dL Blood 10/21/2024 3:15 AM CIGAR HEAD HOLER 10/21/2024 4:03 AM CIGAR HEAD HOLER Marcus Vergara MD LAB BLOOD ORDERABLES Final Resu lt Performing Organization Address [facility] de Phone Number [facility] Department [place] [employer] [place] [address] * Magnesium (10/21/2024 3:15 AM CIGAR HEAD HOLER) Magnesium 2.0 1.4 - 2.5 mg/dL Blood 10/21/2024 3:15 AM CIGAR HEAD HOLER 10/21/2024 4:03 AM CIGAR HEAD HOLER Marcus Vergara MD LAB BLOOD ORDERABLES Final Resu lt Performing Organization Address [facility] de Phone Number [facility] [place] [address] * (ABNORMAL) Hepatic function panel (10/21/2024 3:15 AM CIGAR HEAD HOLER) Bilirubin, total 0.8 0.1 - 1.2 mg/dL Bilirubin, direct 0.4(H) 0.1 - 0.3 mg/dL [facility] Protein, pl 5.2(L) 6.5 - 8.5 g/dL [facility] Albumin 2.3(L) 3.5 - 5.0 g/dL [facility] Alk phos 67 40 - 130 Units/L [facility] ALT 23 7 - 45 Units/L [facility] AST 15 10 - 45 Units/L [facility] Blood 10/21/2024 3:15 AM CIGAR HEAD HOLER 10/21/2024 4:03 AM CIGAR HEAD HOLER us Jovany Justice LACE WINDER LAB BLOOD ORDERABLES Final Result [facility] [place] [address] * (ABNORMAL) Basic metabolic panel (10/21/2024 3:15 AM CIGAR HEAD HOLER) Sodium 140 135 - 145 mmol/L Potassium, pl 3.5 3.3 - 4.9 mmol/L [facility] Chloride 106 97 - 110 mmol/L [facility] CO2 26 22 - 32 mmol/L [facility] Anion gap 8 2 - 15 mmol/L [facility] BUN 19 6 - 25 mg/dL [facility] Creatinine 0.44(L) 0.60 - 1.10 mg/dL [facility] Glucose 123 70 - 199 mg/dL [facility] Comment: Interpretive Data Fasting glucose >/= 126 [...] 2022. Calcium 7.1(L) 8.5 - 10.3 mg/dL [facility] Blood 10/21/2024 3:15 AM CIGAR HEAD HOLER 10/21/2024 4:03 AM CIGAR HEAD HOLER Result Roseanna Vergara MD LAB BLOOD ORDERABLES Final Resu lt Performing Organization Address [facility] Co de Phone Number [facility] [place] [place] [address] * POCT glucose (10/20/2024 8:55 PM CIGAR HEAD HOLER) Glucose, POC 147 70 - 199 mg/dL Blood 10/20/2024 8:55 PM CIGAR HEAD HOLER 10/20/2024 8:55 PM CIGAR HEAD HOLER Result Roseanna Vergara MD LAB POCT ORDERABLES - DEVICE Fi nal Result Performing Organization Address [facility] de Phone Number [facility] [place] [address] * POCT glucose (10/20/2024 5:53 PM CIGAR HEAD HOLER) Glucose, POC 145 70 - 199 mg/dL Blood 10/20/2024 5:53 PM CIGAR HEAD HOLER 10/20/2024 5:53 PM CIGAR HEAD HOLER Result Roseanna Vergara MD LAB POCT ORDERABLES - DEVICE Fi nal Result Performing Organization Address [facility] de Phone Number [facility] [place] [address] * POCT glucose (10/20/2024 12:29 PM CIGAR HEAD HOLER) Glucose, POC 139 70 - 199 mg/dL Blood 10/20/2024 12:2 9 PM CIGAR HEAD HOLER 10/20/2024 12:29 PM CIGAR HEAD HOLER Result Roseanna Vergara MD LAB POCT ORDERABLES - DEVICE Fi nal Result Performing Organization Address [facility] Co de Phone Number [facility] [place] [address] * POCT glucose (10/20/2024 10:51 AM CIGAR HEAD HOLER) [facility] Glucose, POC 147 70 - 199 mg/dL Blood 10/20/2024 10:5 1 AM CIGAR HEAD HOLER 10/20/2024 10:51 AM CIGAR HEAD HOLER us Marcus Vergara MD LAB POCT ORDERABLES - DEVICE Fi nal Result Performing Organization Address [facility] [place] [address] * Transfuse platelets (10/20/2024 9:01 AM CIGAR HEAD HOLER) us Marcus Vergara MD BLOOD TRANSFUSION ORDERABLES Fi nal Result Performing Organization Address [facility] de Phone Number [facility] [place] [address] * Prepare platelets: 1 Units (10/20/2024 5:35 AM CIGAR HEAD HOLER) [facility] Product code [id number] Unit Number [id number] [facility] Product Blood Type APOS [facility] Dispense Status PRESUMED TRANSFUSED [facility] Blood Venous blood specimen / Unknown 10/20/2024 5:35 AM CIGAR HEAD HOLER 10/20/2024 5:34 AM CIGAR HEAD HOLER Narrative [facility] - 10/20/2024 8:00 PM CIGAR HEAD HOLER Are special requirements needed? (all products are leukoreduced)->Yes Date required:-[id number] Special Req 1:-Irradiated PLT # of Units:-1-Units Reasons:-Stable, non-bleeding, plt < 10 K/cumm} us Marcus Vergara MD BLOOD BANK PRODUCT ORDERABLES F inal Result Performing Organization Address [facility] de Phone Number [facility] [place] [address] * POCT glucose (10/20/2024 3:39 AM CIGAR HEAD HOLER) Pathologist [facility] Glucose, POC 156 70 - 199 mg/dL Blood 10/20/2024 3:39 AM CIGAR HEAD HOLER 10/20/2024 3:39 AM CIGAR HEAD HOLER us Marcus Vergara MD LAB POCT ORDERABLES - DEVICE Fi nal Result Performing Organization Address [facility] Co de Phone Number [facility] [place] [address] * Immature platelet fraction (10/20/2024 3:29 AM CIGAR HEAD HOLER) Pathologist [facility] IPF 4.4 1.6 - 10.1 % Blood 10/20/2024 3:29 AM CIGAR HEAD HOLER 10/20/2024 4:18 AM CIGAR HEAD HOLER us Marcus Vergara MD LAB BLOOD ORDERABLES Final Resu lt Performing Organization Address [facility] de Phone Number [facility] [place] [address] * eGFR (10/20/2024 3:29 AM CIGAR HEAD HOLER) [facility] eGFR >90 >=60 mL/min/1. 73 m2 [...] last reviewed 2021. Blood 10/20/2024 3:29 AM CIGAR HEAD HOLER 10/20/2024 4:15 AM CIGAR HEAD HOLER Marcus Vergara MD LAB BLOOD ORDERABLES Final Resu lt Performing Organization Address [facility]/ZIP Co de Phone Number [facility] [place] [address] * (ABNORMAL) Manual Differential (10/20/2024 3:29 AM CIGAR HEAD HOLER) Differential Manual Cells Counted 29 [facility] Neutrophil abs 0.1(C) 1.5 - 6.5 K/cumm [facility] Comment:BMT patient, result not critical Lymphocyte abs 0.0(L) 0.8 - 3.3 K/cumm [facility] Monocyte abs 0.0(L) 0.2 - 0.8 K/cumm [facility] Neutrophil pct 89.7 % [facility] Comment: Interpretive Data Percent cell count reference ranges are not reported, since discordance with absolute values may lead to misinterpretation of CBC data. Current Interpretive Data was last revised on 2017. Lymphocyte pct 10.3 % [facility] Comment: Interpretive Data Percent cell count reference ranges are not reported, since discordance with absolute values may lead to misinterpretation of CBC data. Current Interpretive Data was last revised on 2017. RBC morphology Present(A) [facility] Anisocytosis Slight(A) [facility] Platelet estimate Decreased( A) [facility] Blood 10/20/2024 3:29 AM CIGAR HEAD HOLER 10/20/2024 4:15 AM CIGAR HEAD HOLER us Marcus Vergara MD LAB BLOOD ORDERABLES Edited Res ult - Final Performing Organization Address [facility]/ZIP Co de Phone Number [facility] [place] [address] * (ABNORMAL) CBC without differential (10/20/2024 3:29 AM CIGAR HEAD HOLER) Pathologist [facility] WBC 0.1(C) 3.8 - 9.9 K/cumm Comment:Consistent with prev ious reported value Hgb 8.8(L) 11.9 - 15.5 g/dL [facility] Hct 25.6(L) 35.6 - 45.5 % [facility] Plt 7(C) 150 - 400 K/cumm [facility] Comment: Platelet count confirmed by additional testing. Critical platelet count threshold determined by patient location: Outpatient:<50 K-cumm , Inpatient:<20 K-cumm , BMT service:<10 K-cumm. Critical result called to and read back by SUYAPA MEDINA RN on 10 20 2024 at 0457 to Rivka Magallon. MPV 11.9 9.1 - 12.3 fL [facility] RBC 2.92(L) 3.90 - 5.20 M/cumm [facility] MCV 87.7 81.3 - 96.4 fL [facility] MCH 30.1 27.1 - 33.3 pg [facility] MCHC 34.4 32.3 - 35.7 g/dL [facility] RDW CV 15.2(H) 11.1 - 14.9 % [facility] RDW SD 49.2(H) 35.7 - 48.1 fL [facility] NRBC abs 0.00 0.00 - 0.01 K/cumm [facility] Blood 10/20/2024 3:29 AM CIGAR HEAD HOLER 10/20/2024 4:15 AM CIGAR HEAD HOLER us Marcus Vergara MD LAB BLOOD ORDERABLES Final Resu lt [facility] [place] [address] * (ABNORMAL) Phosphorus (10/20/2024 3:29 AM CIGAR HEAD HOLER) Pathologist [facility] Phosphorus, pl 1.6(L) 2.3 - 4.5 mg/dL Blood 10/20/2024 3:29 AM CIGAR HEAD HOLER 10/20/2024 4:15 AM CIGAR HEAD HOLER Marcus Vergara MD LAB BLOOD ORDERABLES Final Resu lt [facility] [place] [address] * Magnesium (10/20/2024 3:29 AM CIGAR HEAD HOLER) Magnesium 2.0 1.4 - 2.5 mg/dL Blood 10/20/2024 3:29 AM CIGAR HEAD HOLER 10/20/2024 4:15 AM CIGAR HEAD HOLER Marcus Vergara MD LAB BLOOD ORDERABLES Final Resu lt Performing Organization Address [facility] Co de Phone Number [facility] [place] [address] * (ABNORMAL) Hepatic function panel (10/20/2024 3:29 AM CIGAR HEAD HOLER) Bilirubin, total 1.6(H) 0.1 - 1.2 mg/dL Bilirubin, direct 0.8(H) 0.1 - 0.3 mg/dL [facility] Protein, pl 6.0(L) 6.5 - 8.5 g/dL [facility] Albumin 2.3(L) 3.5 - 5.0 g/dL [facility] Alk phos 78 40 - 130 Units/L [facility] ALT 22 7 - 45 Units/L [facility] AST 15 10 - 45 Units/L [facility] Blood 10/20/2024 3:29 AM CIGAR HEAD HOLER 10/20/2024 4:15 AM CIGAR HEAD HOLER Jovany Justice NP LAB BLOOD ORDERABLES Final Result Performing Organization Address [facility] Co de Phone Number [facility] [place] [address] * (ABNORMAL) Basic metabolic panel (10/20/2024 3:29 AM CIGAR HEAD HOLER) Sodium 140 135 - 145 mmol/L Potassium, pl 4.4 3.3 - 4.9 mmol/L [facility] Chloride 106 97 - 110 mmol/L [facility] CO2 26 22 - 32 mmol/L [facility] Anion gap 8 2 - 15 mmol/L [facility] BUN 15 6 - 25 mg/dL [facility] Creatinine 0.44(L) 0.60 - 1.10 mg/dL [facility] Glucose 151 70 - 199 mg/dL [facility] Comment: Interpretive Data Fasting glucose >/= 126 [...] 2022. Calcium 7.4(L) 8.5 - 10.3 mg/dL [facility] Blood 10/20/2024 3:29 AM CIGAR HEAD HOLER 10/20/2024 4:15 AM CIGAR HEAD HOLER Marcus Vergara MD LAB BLOOD ORDERABLES Final Resu lt Performing Organization Address [facility] Co de Phone Number [facility] [place] [address] * POCT glucose (10/19/2024 8:42 PM CIGAR HEAD HOLER) Glucose, POC 146 70 - 199 mg/dL Blood 10/19/2024 8:42 PM CIGAR HEAD HOLER 10/19/2024 8:42 PM CIGAR HEAD HOLER Marcus Vergara MD LAB POCT ORDERABLES - DEVICE Fi nal Result Performing Organization Address [facility] Co de Phone Number [facility] [place] [address] * Vancomycin level trough (10/19/2024 5:02 PM CIGAR HEAD HOLER) [facility] Vancomycin trough 12.9 10.0 - 20.0 mcg/mL Comment:Reviewed Blood 10/19/2024 5:02 PM CIGAR HEAD HOLER 10/19/2024 5:18 PM CIGAR HEAD HOLER Jovany Justice LACE [employer]ER LAB BLOOD ORDERABLES Final Result Performing Organization Address [facility] Co de Phone Number [facility] [place] [address] * POCT glucose (10/19/2024 4:50 PM CIGAR HEAD HOLER) [facility] Glucose, POC 145 70 - 199 mg/dL Blood 10/19/2024 4:50 PM CIGAR HEAD HOLER 10/19/2024 4:50 PM CIGAR HEAD HOLER Marcus Vergara MD LAB POCT ORDERABLES - DEVICE Fi nal Result Performing Organization Address [facility] Co de Phone Number [facility] Department [place] [employer] [place] [address] * POCT glucose (10/19/2024 10:44 AM CIGAR HEAD HOLER) [facility] Glucose, POC 110 70 - 199 mg/dL Blood 10/19/2024 10:4 4 AM CIGAR HEAD HOLER 10/19/2024 10:44 AM CIGAR HEAD HOLER Marcus Vergara MD LAB POCT ORDERABLES - DEVICE Fi nal Result Performing Organization Address [facility] Co de Phone Number [facility] [place] [place] [address] * (ABNORMAL) Immature platelet fraction (10/19/2024 9:25 AM CIGAR HEAD HOLER) [facility] IPF 1.4(L) 1.6 - 10.1 % Blood 10/19/2024 9:25 AM CIGAR HEAD HOLER 10/19/2024 9:47 AM CIGAR HEAD HOLER Jovany Justice L[employer]ER LAB BLOOD ORDERABLES Final Result [facility] [place] [address] * (ABNORMAL) CBC without differential (10/19/2024 9:25 AM CIGAR HEAD HOLER) Pathologist [facility] WBC 0.1(C) 3.8 - 9.9 K/cumm Comment:Consistent with prev ious reported value Hgb 8.4(L) 11.9 - 15.5 g/dL [facility] Hct 24.7(L) 35.6 - 45.5 % [facility] Plt 21(C) 150 - 400 K/cumm [facility] Comment:Platelet count confi rmed by additional testing. Critical platelet count threshold determined by patient location: Outpatient:<50 K-cumm , Inpatient:<20 K-cumm , BMT service:<10 K-cumm MPV 11.9 9.1 - 12.3 fL [facility] RBC 2.72(L) 3.90 - 5.20 M/cumm [facility] MCV 90.8 81.3 - 96.4 fL [facility] MCH 30.9 27.1 - 33.3 pg [facility] MCHC 34.0 32.3 - 35.7 g/dL [facility] RDW CV 16.1(H) 11.1 - 14.9 % [facility] RDW SD 53.0(H) 35.7 - 48.1 fL [facility] NRBC abs 0.00 0.00 - 0.01 K/cumm [facility] Blood 10/19/2024 9:25 AM CIGAR HEAD HOLER 10/19/2024 9:42 AM CIGAR HEAD HOLER Jovany Justice LACE WINDER LAB BLOOD ORDERABLES Final Result [facility] [place] [employer] [place] [address] * Transfuse platelets (10/19/2024 8:06 AM CIGAR HEAD HOLER) us Marcus Vergara MD BLOOD TRANSFUSION ORDERABLES Fi nal Result Performing Organization Address [facility] Co de Phone Number [facility] [place] [employer] [place] [address] * POCT glucose (10/19/2024 6:56 AM CIGAR HEAD HOLER) Glucose, POC 128 70 - 199 mg/dL Blood 10/19/2024 6:56 AM CIGAR HEAD HOLER 10/19/2024 6:56 AM CIGAR HEAD HOLER us Marcus Vergara MD LAB POCT ORDERABLES - DEVICE Fi nal Result Performing Organization Address [facility] Phone Number [facility] [place] [place] [address] * Sepsis Lactate w/ Reflex (10/19/2024 6:53 AM CIGAR HEAD HOLER) Pathologist [facility] Sepsis Lactate 0.8 0.7 - 2.0 mmol/L Blood 10/19/2024 6:53 AM CIGAR HEAD HOLER 10/19/2024 7:04 AM CIGAR HEAD HOLER [facility] - 10/19/2024 7:12 AM CIGAR HEAD HOLER Obtain Lactate w/ reflex STAT. Lactate result [...] hours from the second order's collection time. Result Roseanna Vergara MD LAB BLOOD ORDERABLES Final Resu lt Performing Organization Address [facility] Co de Phone Number [facility] [employer] [place] [address] * Blood culture Blood Peripheral (10/19/2024 6:53 AM CIGAR HEAD HOLER) Report Final Report: No growth Blood (Peripheral) 10/19/2024 6:53 AM CIGAR HEAD HOLER 10/19/2024 7:10 AM CIGAR HEAD HOLER Narrative [facility] - 10/23/2024 12:00 PM CIGAR HEAD HOLER Collection->Peripheral 1. Blood cultures are incubated for [...] performance characteristics have been verified by the [facility] Microbiology Laboratory. For questions about this culture, contact the Microbiology Laboratory at [phone]. Interpretive data was last revised on 24. Marcus Vergara MD LAB MICROBIOLOGY - GENERAL JUAN GONZALEZ Final Result [facility] [place] [address] * Blood culture Blood Peripheral (10/19/2024 6:53 AM CIGAR HEAD HOLER) Report Final Report: No growth Blood (Peripheral) 10/19/2024 6:53 AM CIGAR HEAD HOLER 10/19/2024 7:10 AM CIGAR HEAD HOLER Narrative [facility] - 10/23/2024 12:00 PM CIGAR HEAD HOLER Collection->Peripheral 1. Blood cultures are incubated for [...] performance characteristics have been verified by the [facility] Microbiology Laboratory. For questions about this culture, contact the Microbiology Laboratory at [phone]. Interpretive data was last revised on 24. Marcus Vergara MD LAB MICROBIOLOGY - GENERAL ORDGeovanni GONZALEZ Final Result [facility] [place] [address] * Prepare platelets: 1 Units (10/19/2024 5:14 AM CIGAR HEAD HOLER) [facility] Product code [id number] Unit Number [id number] [facility] Product Blood Type APOS [facility] Dispense Status PRESUMED TRANSFUSED [facility] Blood Venous blood specimen / Unknown 10/19/2024 5:14 AM CIGAR HEAD HOLER 10/19/2024 5:13 AM CIGAR HEAD HOLER Narrative [facility] - 10/19/2024 8:01 PM CIGAR HEAD HOLER Are special requirements needed? (all products are leukoreduced)->Yes Date required:-20240929 Special Req 1:-Irradiated PLT # of Units:-1-Units Reasons:-Stable, non-bleeding, plt < 10 K/cumm} us Marcus Vergara MD BLOOD BANK PRODUCT ORDERABLES F inal Result [facility] [place] [address] * Immature platelet fraction (10/19/2024 2:59 AM CIGAR HEAD HOLER) Pathologist [facility] IPF 2.0 1.6 - 10.1 % Blood 10/19/2024 2:59 AM CIGAR HEAD HOLER 10/19/2024 3:33 AM CIGAR HEAD HOLER us Marcus Vergara MD LAB BLOOD ORDERABLES Final Resu lt Performing Organization Address [facility] de Phone Number DAVID [facility] [place] [address] * eGFR (10/19/2024 2:59 AM CIGAR HEAD HOLER) [facility] eGFR >90 >=60 mL/min/1. 73 m2 [...] last reviewed 2021. Blood 10/19/2024 2:59 AM CIGAR HEAD HOLER 10/19/2024 3:29 AM CIGAR HEAD HOLER us Marcus Vergara MD LAB BLOOD ORDERABLES Final Resu lt Performing Organization Address [facility] Co de Phone Number [facility] [employer] [place] [address] * (ABNORMAL) Manual Differential (10/19/2024 2:59 AM CIGAR HEAD HOLER) Differential Manual Cells Counted 8 [facility] Neutrophil pct 37.5 % [facility] Comment: Interpretive Data Percent cell count reference ranges are not reported, since discordance with absolute values may lead to misinterpretation of CBC data. Current Interpretive Data was last revised on 2017. Lymphocyte pct 62.5 % [facility] Comment: Interpretive Data Percent cell count reference ranges are not reported, since discordance with absolute values may lead to misinterpretation of CBC data. Current Interpretive Data was last revised on 2017. RBC morphology Normal [facility] Platelet estimate Decreased( A) [facility] Blood 10/19/2024 2:59 AM CIGAR HEAD HOLER 10/19/2024 3:29 AM CIGAR HEAD HOLER us Marcus Vergara MD LAB BLOOD ORDERABLES Edited Res ult - Final Performing Organization Address [facility] Co de Phone Number DAVID GARCÍA [facility] [employer] [place] [address] * aPTT (10/19/2024 2:59 AM CIGAR HEAD HOLER) Pathologist [facility] aPTT 34 28 - 38 sec Comment: Interpretive Data Heparin therapeutic range: 66.0 - 100.0 seconds. Range based on correlation with therapeutic heparin activity range of 0.3 - 0.7 Units/mL. Current interpretive data was last revised on 2023. Blood 10/19/2024 2:59 AM CIGAR HEAD HOLER 10/19/2024 3:32 AM CIGAR HEAD HOLER us Marcus Vergara MD LAB BLOOD ORDERABLES Final Resu lt Performing Organization Address [facility] Co de Phone Number DAVID GARCÍA K[facility] [employer] [place] [address] * (ABNORMAL) Protime-INR (10/19/2024 2:59 AM CIGAR HEAD HOLER) Pathologist [facility] PT 19.8(H) 9.7 - 13.0 sec INR 1.81(H) 0.90 - 1.20 [facility] Comment: Interpretive data Oral anticoagulant therapeutic ranges: Venous thromboembolism prophylaxis or treatment: 2.0-3.0 CARDIOLOGY Standard range: 2.0-3.0 High-intensity range: 2.5-3.5 Refer to indication-specific guidelines for appropriate target ranges for prosthetic heart valve replacement. Current interpretive data was last revised on 2019. Blood 10/19/2024 2:59 AM CIGAR HEAD HOLER 10/19/2024 3:32 AM CIGAR HEAD HOLER us Marcus Vergara MD LAB BLOOD ORDERABLES Final Resu lt [facility] [place] [address] * (ABNORMAL) CBC without differential (10/19/2024 2:59 AM CIGAR HEAD HOLER) Pathologist [facility] WBC 0.0(C) 3.8 - 9.9 K/cumm Comment:Consistent with prev ious reported value Hgb 8.0(L) 11.9 - 15.5 g/dL [facility] Hct 23.5(L) 35.6 - 45.5 % [facility] Plt 2(C) 150 - 400 K/cumm [facility] Comment:Critical result call ed to and read back by PACO PATRICIA RN on 10 19 2024 at 0350 to Kristin Matute. MPV Not Measured 9.1 - 12.3 fL [facility] RBC 2.62(L) 3.90 - 5.20 M/cumm [facility] MCV 89.7 81.3 - 96.4 fL [facility] MCH 30.5 27.1 - 33.3 pg [facility] MCHC 34.0 32.3 - 35.7 g/dL [facility] RDW CV 15.9(H) 11.1 - 14.9 % [facility] RDW SD 52.0(H) 35.7 - 48.1 fL [facility] NRBC abs 0.00 0.00 - 0.01 K/cumm [facility] Blood 10/19/2024 2:59 AM CIGAR HEAD HOLER 10/19/2024 3:29 AM CIGAR HEAD HOLER Marcus Vergara MD LAB BLOOD ORDERABLES Final Resu lt Performing Organization Address [facility] de Phone Number [facility] [place] [address] * Type and screen (10/19/2024 2:59 AM CIGAR HEAD HOLER) Pathologist [facility] ABO Rh A Positive Bing, indirect Negative [facility] Blood 10/19/2024 2:59 AM CIGAR HEAD HOLER 10/19/2024 3:35 AM CIGAR HEAD HOLER Narrative [facility] - 10/19/2024 4:33 AM CIGAR HEAD HOLER Has the patient had Daratumumab or Isatuximab in the past 6 months?->Unknown Result [facility] Marcus Vergara MD LAB BLOOD BANK TEST ORDERABLES Final Result Performing Organization Address [facility] de Phone Number [facility] [place] [address] * (ABNORMAL) Uric acid (10/19/2024 2:59 AM CIGAR HEAD HOLER) Uric acid 0.4(L) 2.5 - 7.0 mg/dL Comment:Result maybe falsely decreased due to Elitek (Rasburicase) Blood 10/19/2024 2:59 AM CIGAR HEAD HOLER 10/19/2024 3:29 AM CIGAR HEAD HOLER Narrative [facility] - 10/19/2024 4:02 AM CIGAR HEAD HOLER Saturday and only. Morning draw. . Marcus Vergara MD LAB BLOOD ORDERABLES Final Resu lt Performing Organization Address [facility]/[place] [address] * (ABNORMAL) Phosphorus (10/19/2024 2:59 AM CIGAR HEAD HOLER) Pathologist [facility] Phosphorus, pl 1.9(L) 2.3 - 4.5 mg/dL Blood 10/19/2024 2:59 AM CIGAR HEAD HOLER 10/19/2024 3:29 AM CIGAR HEAD HOLER us Marcus Vergara MD LAB BLOOD ORDERABLES Final Resu lt Performing Organization Address [facility] [place] [address] * Magnesium (10/19/2024 2:59 AM CIGAR HEAD HOLER) [facility] Magnesium 2.0 1.4 - 2.5 mg/dL Blood 10/19/2024 2:59 AM CIGAR HEAD HOLER 10/19/2024 3:29 AM CIGAR HEAD HOLER us Marcus Vergara MD LAB BLOOD ORDERABLES Final Resu lt Performing Organization Address [facility] [place] [address] * Lactate dehydrogenase (LD) (10/19/2024 2:59 AM CIGAR HEAD HOLER) [facility] Lactate dehydrogenase (LDH) 158 100 - 250 Units/L Blood 10/19/2024 2:59 AM CIGAR HEAD HOLER 10/19/2024 3:29 AM CIGAR HEAD HOLER Narrative [facility] - 10/19/2024 4:02 AM CIGAR HEAD HOLER Saturday and only. Morning draw. us Marcus Vergara MD LAB BLOOD ORDERABLES Final Resu lt Performing Organization Address [facility] [place] [address] * (ABNORMAL) Comprehensive metabolic panel (10/19/2024 2:59 AM CIGAR HEAD HOLER) Sodium 138 135 - 145 mmol/L Potassium, pl 4.1 3.3 - 4.9 mmol/L [facility] Chloride 104 97 - 110 mmol/L [facility] CO2 28 22 - 32 mmol/L [facility] Anion gap 6 2 - 15 mmol/L [facility] BUN 12 6 - 25 mg/dL [facility] Creatinine 0.46(L) 0.60 - 1.10 mg/dL [facility] Glucose 126 70 - 199 mg/dL [facility] Comment: Interpretive Data Fasting glucose >/= 126 [...] 2022. Calcium 7.3(L) 8.5 - 10.3 mg/dL [facility] Bilirubin, total 1.5(H) 0.1 - 1.2 mg/dL [facility] Protein, pl 5.7(L) 6.5 - 8.5 g/dL [facility] Albumin 2.2(L) 3.5 - 5.0 g/dL [facility] Alk phos 72 40 - 130 Units/L [facility] ALT 20 7 - 45 Units/L [facility] AST 13 10 - 45 Units/L [facility] Blood 10/19/2024 2:59 AM CIGAR HEAD HOLER 10/19/2024 3:29 AM CIGAR HEAD HOLER Narrative [facility] - 10/19/2024 4:02 AM CIGAR HEAD HOLER Saturday and only. Morning draw. us Marcus Vergara MD LAB BLOOD ORDERABLES Final Resu lt [facility] [place] [address] * ECG 12 lead (10/18/2024 9:56 PM CIGAR HEAD HOLER) [facility] Ventricular Rate EKG/Min 117 BPM [facility] Atrial Rate 117 BPM [facility] GA-Interval (MSEC) 130 ms [facility] QRS-Interval (MSEC) 80 ms [facility] QT-Interval (MSEC) 316 ms [facility] QTc 440 ms [facility] P [place] 55 degrees [facility] R [place] 42 degrees [facility] T [place] 34 degrees [facility] Diagnosis Sinus tachycardia Otherwise normal ECG When compared with ECG of 09-OCT-2024 17:14, No significant change was found Confirmed by ASH SALGUERO M.D ([id number]) on 10/21/2024 11:11:06 AM [facility] 10/18/2024 9:56 PM CIGAR HEAD HOLER 10/21/2024 11:11 AM CIGAR HEAD HOLER Marcus Vergara MD ECG ORDERABLES Final Result Performing Organization Address [facility]/ZIP Co de Phone Number [facility] * POCT glucose (10/18/2024 9:01 PM CIGAR HEAD HOLER) Pathologist [facility] Glucose, POC 116 70 - 199 mg/dL Blood 10/18/2024 9:01 PM CIGAR HEAD HOLER 10/18/2024 9:01 PM CIGAR HEAD HOLER Marcus Vergara MD LAB POCT ORDERABLES - DEVICE Fi nal Result [facility] [place] [address] * POCT glucose (10/18/2024 9:53 AM CIGAR HEAD HOLER) Glucose, POC 118 70 - 199 mg/dL Blood 10/18/2024 9:53 AM CIGAR HEAD HOLER 10/18/2024 9:53 AM CIGAR HEAD HOLER us Marcus Vergara MD LAB POCT ORDERABLES - DEVICE Fi nal Result Performing Organization Address [facility] de Phone Number [facility] [place] [address] * POCT glucose (10/18/2024 6:16 AM CIGAR HEAD HOLER) Glucose, POC 116 70 - 199 mg/dL Blood 10/18/2024 6:1 6 AM CIGAR HEAD HOLER 10/18/2024 6:16 AM CIGAR HEAD HOLER us Marcus Vergara MD LAB POCT ORDERABLES - DEVICE Fi nal Result Performing Organization Address [facility] de Phone Number [facility] [place] [address] * (ABNORMAL) POCT glucose (10/18/2024 6:14 AM CIGAR HEAD HOLER) Glucose, POC 415(H) 70 - 199 mg/dL Blood 10/18/2024 6:14 AM CIGAR HEAD HOLER 10/18/2024 6:14 AM CIGAR HEAD HOLER us Marcus Vergara MD LAB POCT ORDERABLES - DEVICE Fi nal Result Performing Organization Address [facility] de Phone Number [facility] [place] [address] * (ABNORMAL) Vancomycin level trough (10/18/2024 6:05 AM CIGAR HEAD HOLER) Vancomycin trough 9.5(L) 10.0 - 20.0 mcg/mL Blood 10/18/2024 6:05 AM CIGAR HEAD HOLER 10/18/2024 6:29 AM CIGAR HEAD HOLER us Marcus Vergara MD LAB BLOOD ORDERABLES Final Resu lt Performing Organization Address [facility] Co de Phone Number [facility] [place] [address] * Transfuse RBC (10/18/2024 5:58 AM CIGAR HEAD HOLER) Blood Marcus Vergara MD BLOOD TRANSFUSION ORDERABLES Fi nal Result Performing Organization Address [facility] [place] [address] * Transfuse platelets (10/18/2024 3:38 AM CIGAR HEAD HOLER) Marcus Vergara MD BLOOD TRANSFUSION ORDERABLES Fi nal Result Performing Organization Address [facility] Co de Phone Number [place], [place] [id number] * Prepare RBC: 1 Units (10/18/2024 3:31 AM CIGAR HEAD HOLER) Product code [id number] Unit Number [id number] [facility] Product Blood Type APOS [facility] Dispense Status PRESUMED TRANSFUSED [facility] Blood Venous blood specimen / Unknown 10/18/2024 3:31 AM CIGAR HEAD HOLER 10/18/2024 3:30 AM CIGAR HEAD HOLER Narrative [facility] - 10/18/2024 4:00 PM CIGAR HEAD HOLER Are special requirements needed? (All products are leukoreduced and CMV- safe)- >Yes Date required:-20240929 Special Req 1:-Irradiated LRRBC # of [id number] Reasons:-BMT, Hgb <8 g/dL} Marcus Vergara MD BLOOD BANK PRODUCT ORDERABLES F inal Result Performing Organization Address [facility] Co de Phone Number [place], [place] [id number] * (ABNORMAL) Immature platelet fraction (10/18/2024 2:38 AM CIGAR HEAD HOLER) IPF 0.0(L) 1.6 - 10.1 % Blood 10/18/2024 2:38 AM CIGAR HEAD HOLER 10/18/2024 3:05 AM CIGAR HEAD HOLER Marcus Vergara MD LAB BLOOD ORDERABLES Final Resu lt Performing Organization Address [facility] Co de Phone Number DAVID GARCÍA Karmen [facility] [place] [address] * eGFR (10/18/2024 2:38 AM CIGAR HEAD HOLER) Pathologist [facility] eGFR >90 >=60 mL/min/1. 73 m2 Comment: [...] last reviewed 2021. Blood 10/18/2024 2:38 AM CIGAR HEAD HOLER 10/18/2024 3:02 AM CIGAR HEAD HOLER Marcus Vergara MD LAB BLOOD ORDERABLES Final Resu lt Performing Organization Address [facility]/ZIP Co de Phone Number DAVID GARCÍA [facility] [place] [address] * (ABNORMAL) Manual Differential (10/18/2024 2:38 AM CIGAR HEAD HOLER) Pathologist [facility] Differential Manual Cells [facility]ed 5 [facility] Neutrophil pct 0.0 % [facility] Comment: Interpretive Data Percent cell count reference ranges are not reported, since discordance with absolute values may lead to misinterpretation of CBC data. Current Interpretive Data was last revised on 2017. Lymphocyte pct 100.0 % [facility] Comment: Interpretive Data Percent cell count reference ranges are not reported, since discordance with absolute values may lead to misinterpretation of CBC data. Current Interpretive Data was last revised on 2017. RBC morphology Normal [facility] Platelet estimate Decreased( A) [facility] Blood 10/18/2024 2:38 AM CIGAR HEAD HOLER 10/18/2024 3:01 AM CIGAR HEAD HOLER us Marcus Vergara MD LAB BLOOD ORDERABLES Edited Res ult - Final [facility] [place] [address] * (ABNORMAL) CBC without differential (10/18/2024 2:38 AM CIGAR HEAD HOLER) WBC 0.0(C) 3.8 - 9.9 K/cumm Comment:Consistent with prev ious reported value Hgb 7.1(L) 11.9 - 15.5 g/dL [facility] Hct 21.3(L) 35.6 - 45.5 % [facility] Plt 3(C) 150 - 400 K/cumm [facility] Comment:Critical result call ed to and read back by ROMAN MARIA RN on 10 18 2024 at 0320 to [facility]. MPV 9.4 9.1 - 12.3 fL [facility] RBC 2.37(L) 3.90 - 5.20 M/cumm [facility] MCV 89.9 81.3 - 96.4 fL [facility] MCH 30.0 27.1 - 33.3 pg [facility] MCHC 33.3 32.3 - 35.7 g/dL [facility] RDW CV 15.6(H) 11.1 - 14.9 % [facility] RDW SD 51.4(H) 35.7 - 48.1 fL [facility] NRBC abs 0.00 0.00 - 0.01 K/cumm [facility] Blood 10/18/2024 2:38 AM CIGAR HEAD HOLER 10/18/2024 3:01 AM CIGAR HEAD HOLER us Marcus Vergara MD LAB BLOOD ORDERABLES Edited Res ult - Final Performing Organization Address [facility] Co de Phone Number [facility] [place] [address] * (ABNORMAL) Phosphorus (10/18/2024 2:38 AM CIGAR HEAD HOLER) Pathologist [facility] Phosphorus, pl 1.6(L) 2.3 - 4.5 mg/dL Blood 10/18/2024 2:38 AM CIGAR HEAD HOLER 10/18/2024 3:02 AM CIGAR HEAD HOLER us Marcus Vergara MD LAB BLOOD ORDERABLES Final Resu lt Performing Organization Address [facility] Co de Phone Number [facility] [place] [address] * Magnesium (10/18/2024 2:38 AM CIGAR HEAD HOLER) [facility] Magnesium 2.1 1.4 - 2.5 mg/dL Blood 10/18/2024 2:38 AM CIGAR HEAD HOLER 10/18/2024 3:02 AM CIGAR HEAD HOLER us Marcus Vergara MD LAB BLOOD ORDERABLES Final Resu lt Performing Organization Address [facility] Co de Phone Number [facility] [place] [address] * (ABNORMAL) Basic metabolic panel (10/18/2024 2:38 AM CIGAR HEAD HOLER) [facility] Sodium 141 135 - 145 mmol/L Potassium, pl 3.6 3.3 - 4.9 mmol/L [facility] Chloride 105 97 - 110 mmol/L [facility] CO2 30 22 - 32 mmol/L [facility] Anion gap 6 2 - 15 mmol/L [facility] BUN 11 6 - 25 mg/dL [facility] Creatinine 0.46(L) 0.60 - 1.10 mg/dL [facility] Glucose 132 70 - 199 mg/dL [facility] Comment: Interpretive Data Fasting glucose >/= 126 [...] 2022. Calcium 7.0(L) 8.5 - 10.3 mg/dL [facility] Blood 10/18/2024 2:38 AM CIGAR HEAD HOLER 10/18/2024 3:02 AM CIGAR HEAD HOLER Marcus Vergara MD LAB BLOOD ORDERABLES Final Resu lt Performing Organization Address City/State/[facility] Co de Phone Number [facility] [place] [address] * Prepare platelets: 1 Units (10/18/2024 2:31 AM CIGAR HEAD HOLER) [facility] Product code [id number] Unit Number [id number] [facility] Product Blood Type APOS [facility] Dispense Status PRESUMED TRANSFUSED [facility] Blood Venous blood specimen / Unknown 10/18/2024 2:31 AM CIGAR HEAD HOLER 10/18/2024 2:30 AM CIGAR HEAD HOLER Narrative [facility] - 10/18/2024 4:00 PM CIGAR HEAD HOLER Are special requirements needed? (all products are leukoreduced)->Yes Date required:-20240929 Special Req 1:-Irradiated PLT # of Units:-1-Units Reasons:-Stable, non-bleeding, plt < 10 K/cumm} us Marcus Vergara MD BLOOD BANK PRODUCT ORDERABLES [place] [address] * POCT glucose (10/17/2024 11:41 PM CIGAR HEAD HOLER) Glucose, POC 136 70 - 199 mg/dL Blood 10/17/2024 11:4 1 PM CIGAR HEAD HOLER 10/17/2024 11:41 PM CIGAR HEAD HOLER us Marcus Vergara MD LAB POCT ORDERABLES - DEVICE Fi nal Result Performing Organization Address City/[facility]/[place] [address] * POCT glucose (10/17/2024 5:56 PM CIGAR HEAD HOLER) Glucose, POC 127 70 - 199 mg/dL Blood 10/17/2024 5:56 PM CIGAR HEAD HOLER 10/17/2024 5:56 PM CIGAR HEAD HOLER us Marcus Vergara MD LAB POCT ORDERABLES - DEVICE Fi nal Result Performing Organization Address [facility]/ZIP Co de Phone Number [facility] [place] [place] [address] * Transfuse platelets (10/17/2024 2:58 PM CIGAR HEAD HOLER) us Marcus Vergara MD BLOOD TRANSFUSION ORDERABLES Fi nal Result [facility] Department [place] [place] [address] * Transfuse platelets (10/17/2024 2:57 PM CIGAR HEAD HOLER) us Marcus Vergara MD BLOOD TRANSFUSION ORDERABLES Fi nal Result Performing Organization Address City/[facility]/ZIP Co de Phone Number [facility] [place] [address] * POCT glucose (10/17/2024 12:01 PM CIGAR HEAD HOLER) Glucose, POC 160 70 - 199 mg/dL Blood 10/17/2024 12:0 1 PM [employer]IGAR HEAD [employer]OLER 10/17/2024 12:01 PM CIGAR HEAD [employer]OLER us Marcus Vergara MD LAB POCT ORDERABLES - DEVICE Fi nal Result Performing Organization Address [facility] Co de Phone Number [facility] [place] [address] * (ABNORMAL) Urinalysis reflex to microscopic and culture Urine, clean voided (10/17/2024 10:07 AM CIGAR HEAD HOLER) Color, ur Yellow Yellow Clarity, ur Cloudy(A) Clear [facility] Specific gravity, ur 1.020 1.003 - 1.030 [facility] pH, urine 7.0 [facility] Comment: Interpretive Data U rine pH is affected by diet, medications, systemic acid-base disturbances, and renal tubular function. pH may affect urinary stone formation. For example, urine pH below 6.0 may help reduce the tendency for calcium phosphate stones and pH greater than 6.0 may reduce the tendency for uric acid stone formation. Source: [facility] Current Interpretive Data was last revised on 2017 Protein, ur ql 1+(A) Negative [facility] Glucose, ur ql 2+(A) Negative [facility] Ketones, ur 1+(A) Negative [facility] Bilirubin, ur Negative Negative [facility] Blood, ur 1+(A) Negative [facility] Urobilinogen, ur 4.0(A) <2.0 mg/dL [facility] Nitrite, ur Negative Negative [facility] Leukocyte esterase, ur Negative Negative [facility] UA reflex comment Reflex to microscopic UA will be performed. [facility] Urine, clean voided 10/17/2024 10:07 AM CIGAR HEAD HOLER 10/17/2024 10:36 AM CIGAR HEAD [employer]OLER us Chata Hardin MD LAB MICROBIOLOGY - GENERAL ORDER DAWSON Final Result Performing Organization Address City/[facility] de Phone Number [facility] [place] [address] * (ABNORMAL) Urinalysis, microscopic only (10/17/2024 10:07 AM CIGAR HEAD HOLER) WBC, ur 0-5 0 - 5 /HPF RBC, ur 3-5(A) 0 - 2 /HPF [facility] Epithelial cells, squamous, ur 1-5 0 - 5 /HPF [facility] Bacteria, ur 2+(A) [facility] Mucous, ur Present(A) [facility] Amorphous crystals, ur 1+(A) [facility] Culture Reflex Comment Reflex conditions for urine culture (WBC >10) not met. [facility] Urine, clean voided 10/17/2024 10:07 AM CIGAR HEAD HOLER 10/17/2024 10:36 AM CIGAR HEAD HOLER us Chata Hardin MD LAB URINE ORDERABLES Final Resul t Performing Organization Address [facility] de Phone Number [facility] [place] [address] * Prepare platelets: 1 Units (10/17/2024 6:05 AM CIGAR HEAD HOLER) Product code [id number] Unit Number [id number] [facility] Product Blood Type APOS [facility] Dispense Status PRESUMED TRANSFUSED [facility] Blood Venous blood specimen / Unknown 10/17/2024 6:05 AM CIGAR HEAD [employer]OLER 10/17/2024 6:04 AM CIGAR HEAD HOLER Narrative [facility] - 10/18/2024 6:00 AM CIGAR HEAD HOLER Are special requirements needed? (all products are leukoreduced)->Yes Date required:-20240929 Special Req 1:-Irradiated PLT # of Units:-1-Units Reasons:-Stable, non-bleeding, plt < 10 K/cumm} Marcus Vergara MD BLOOD BANK PRODUCT ORDERABLES F inal Result Performing Organization Address [facility]/ZIP Co de Phone Number [facility] [place] [address] * (ABNORMAL) Immature platelet fraction (10/17/2024 5:12 AM CIGAR HEAD HOLER) Pathologist [facility] IPF 1.2(L) 1.6 - 10.1 % Blood 10/17/2024 5:12 AM CIGAR HEAD HOLER 10/17/2024 5:39 AM CIGAR HEAD HOLER Marcus Vergara MD LAB BLOOD ORDERABLES Final Resu lt Performing Organization Address [facility] de Phone Number [facility] [place] [address] * eGFR (10/17/2024 5:12 AM CIGAR HEAD HOLER) [facility] eGFR >90 >=60 mL/min/1. 73 m2 [...] last reviewed 2021. Blood 10/17/2024 5:12 AM CIGAR HEAD HOLER 10/17/2024 5:34 AM CIGAR HEAD HOLER us Marcus Vergara MD LAB BLOOD ORDERABLES Final Resu lt Performing Organization Address City/[facility] Co de Phone Number [facility] [place] [address] * (ABNORMAL) Manual Differential (10/17/2024 5:12 AM CIGAR HEAD HOLER) [facility] Differential Manual Cells Counted 3 [facility] Neutrophil pct 33.3 % [facility] Comment: Interpretive Data Percent cell count reference ranges are not reported, since discordance with absolute values may lead to misinterpretation of CBC data. Current Interpretive Data was last revised on 2017. Lymphocyte pct 66.7 % [facility] Comment: Interpretive Data Percent cell count reference ranges are not reported, since discordance with absolute values may lead to misinterpretation of CBC data. Current Interpretive Data was last revised on 2017. RBC morphology Normal [facility] Platelet estimate Decreased( A) [facility] Blood 10/17/2024 5:12 AM CIGAR HEAD HOLER 10/17/2024 5:34 AM CIGAR HEAD [employer]OLER us Marcus Vergara MD LAB BLOOD ORDERABLES Edited Res ult - Final [facility] [place] [address] * (ABNORMAL) CBC without differential (10/17/2024 5:12 AM CIGAR HEAD HOLER) [facility] WBC 0.0(C) 3.8 - 9.9 K/cumm Comment:Consistent with prev ious reported value Hgb 9.0(L) 11.9 - 15.5 g/dL [facility] Hct 26.8(L) 35.6 - 45.5 % [facility] Plt 3(C) 150 - 400 K/cumm [facility] Comment:Critical result call ed to and read back by ROMAN MARIA RN on 10 17 2024 at 0601 to VIVIAN PLEITEZ. MPV Not Measured 9.1 - 12.3 fL [facility] RBC 3.01(L) 3.90 - 5.20 M/cumm [facility] MCV 89.0 81.3 - 96.4 fL [facility] MCH 29.9 27.1 - 33.3 pg [facility] MCHC 33.6 32.3 - 35.7 g/dL [facility] RDW CV 15.6(H) 11.1 - 14.9 % [facility] RDW SD 51.2(H) 35.7 - 48.1 fL [facility] NRBC abs 0.00 0.00 - 0.01 K/cumm [facility] Blood 10/17/2024 5:12 AM CIGAR HEAD HOLER 10/17/2024 5:34 AM CIGAR HEAD HOLER Marcus Vergara MD LAB BLOOD ORDERABLES Final Resu lt Performing Organization Address [facility] Co de Phone Number [facility] Department [place] [address] * Triglycerides (10/17/2024 5:12 AM CIGAR HEAD HOLER) Triglycerides 98 <=149 mg/dL Comment: Interpretive Data [...] revised on 2018. Blood 10/17/2024 5:12 AM CIGAR HEAD HOLER 10/17/2024 5:34 AM CIGAR HEAD HOLER Isabel Trevizo MD LAB BLOOD ORDERABLES Fin al Result Performing Organization Address [facility]/ZIP Co de Phone Number [facility] [place] [address] * (ABNORMAL) Phosphorus (10/17/2024 5:12 AM CIGAR HEAD HOLER) Phosphorus, pl 1.2(L) 2.3 - 4.5 mg/dL Blood 10/17/2024 5:12 AM CIGAR HEAD HOLER 10/17/2024 5:34 AM CIGAR HEAD HOLER us Marcus Vergara MD LAB BLOOD ORDERABLES Final Resu lt Performing Organization Address City/[facility]/ZIP Co de Phone Number [facility] [place] [employer] [place] [address] * Magnesium (10/17/2024 5:12 AM CIGAR HEAD HOLER) Pathologist [facility] Magnesium 1.8 1.4 - 2.5 mg/dL Blood 10/17/2024 5:12 AM CIGAR HEAD HOLER 10/17/2024 5:34 AM CIGAR HEAD HOLER us Marcus Vergara MD LAB BLOOD ORDERABLES Final Resu lt Performing Organization Address [facility] de Phone Number [facility] [place] [employer] [place] [address] * Vancomycin level trough To be drawn 30 min prior to 4th dose of Vanc on 215 AM (10/17/2024 5:12 AMCST) Pathologist [facility] Vancomycin trough 12.2 10.0 - 20.0 mcg/mL Comment:Reviewed Blood 10/17/2024 5:12 AM CIGAR HEAD HOLER 10/17/2024 5:34 AM CIGAR HEAD HOLER Narrative [facility] - 10/17/2024 6:02 AM CIGAR HEAD HOLER To be drawn 30 min prior to 4th dose of Vanc on 10/17 AM us Marcus Vergara MD LAB BLOOD ORDERABLES Final Resu lt Performing Organization Address [facility] Co de Phone Number [facility] [place] [address] * (ABNORMAL) Basic metabolic panel (10/17/2024 5:12 AM CIGAR HEAD HOLER) Sodium 138 135 - 145 mmol/L Potassium, pl 3.2(L) 3.3 - 4.9 mmol/L [facility] Chloride 100 97 - 110 mmol/L [facility] CO2 31 22 - 32 mmol/L [facility] Anion gap 7 2 - 15 mmol/L [facility] BUN 10 6 - 25 mg/dL [facility] Creatinine 0.47(L) 0.60 - 1.10 mg/dL [facility] Glucose 149 70 - 199 mg/dL [facility] Comment: Interpretive Data Fasting glucose >/= 126 [...] 2022. Calcium 7.6(L) 8.5 - 10.3 mg/dL [facility] Blood 10/17/2024 5:12 AM CIGAR HEAD HOLER 10/17/2024 5:34 AM CIGAR HEAD HOLER Marcus Vergara MD LAB BLOOD ORDERABLES Final Resu lt Performing Organization Address City/[facility]/ZIP Co de Phone Number [facility] [place] [address] * POCT glucose (10/17/2024 12:10 AM CIGAR HEAD HOLER) Glucose, POC 115 70 - 199 mg/dL Blood 10/17/2024 12:1 0 AM CIGAR HEAD HOLER 10/17/2024 12:10 AM CIGAR HEAD HOLER Marcus Vergara MD LAB POCT ORDERABLES - DEVICE Fi nal Result Performing Organization Address City/[facility]/ZIP Co de Phone Number DAVID [facility] [place] [address] * XR Chest 1 View (10/16/2024 8:52 PM CIGAR HEAD HOLER) Anatomical Region Laterality Modality Body, Chest N/A Computed Radiogr aphy 10/17/2024 8:39 AM CIGAR HEAD HOLER Impressions 10/17/2024 12:04 PM CIGAR HEAD HOLER The current study is compared with the [...] Olvin Dawson M.D. Narrative 10/17/2024 12:04 PM CIGAR HEAD HOLER EXAMINATION: 1 view chest radiograph Procedure Note [...] Blood culture Blood Peripheral (10/16/2024 8:30 PM CIGAR HEAD HOLER) Report Final Report: No growth Blood (Peripheral) 10/16/2024 8:30 PM CIGAR HEAD HOLER 10/16/2024 8:44 PM CIGAR HEAD HOLER Narrative DAVID GARCÍAH - 10/21/2024 7:01 AM CIGAR HEAD HOLER Collection->Peripheral 1. Blood cultures are incubated for [...] performance characteristics have been verified by the [facility] Microbiology Laboratory. For questions about this culture, contact the Microbiology Laboratory at [phone]. Interpretive data was last revised on 24. us Marcus Vergara MD LAB MICROBIOLOGY - GENERAL [facility] Final Result DAVID GARC[facility]A [facility] [place] [address] * Blood culture Blood Peripheral (10/16/2024 8:30 PM CIGAR HEAD HOLER) Report Final Report: No growth Blood (Peripheral) 10/16/2024 8:30 PM CIGAR HEAD HOLER 10/16/2024 8:44 PM CIGAR HEAD HOLER Narrative DAVID [facility] - 10/21/2024 7:01 AM CIGAR HEAD HOLER Collection->Peripheral 1. Blood cultures are incubated for [...] performance characteristics have been verified by the [facility] Microbiology Laboratory. For questions about this culture, contact the Microbiology Laboratory at [phone]. Interpretive data was last revised on 24. Marcus Vergara MD LAB MICROBIOLOGY - GENERAL [facility] Final Result Performing Organization Address City/[facility]/ZIP Co de Phone Number [facility] [place] [address] * MRSA Only (Staphylococcus aureus) Culture Nasal (10/16/2024 8:26 PM CIGAR HEAD HOLER) Report Final Report: Negative Nasal 10/16/2024 8:26 PM CIGAR HEAD HOLER 10/16/2024 8:42 PM CIGAR HEAD HOLER Narrative [facility] - 10/18/2024 6:53 AM CIGAR HEAD HOLER Testing performed by [facility] Microbiology Laboratory ([phone]). Chata Hardin MD LAB MICROBIOLOGY - GENERAL ORDER DAWSON Final Result [facility] Department [place] [place] [address] * Respiratory pathogen panel Nasopharyngeal (10/16/2024 8:26 PM CIGAR HEAD HOLER) Influenza A RNA Not Detected Not Detected Influenza B RNA Not Detected Not Detected [facility] RSV RNA Not Detected Not Detected [facility] COVID-19 RNA Not Detected Not Detected [facility] Coronavirus 229E RNA Not Detected Not Detected [facility] Coronavirus HKU1 RNA Not Detected Not Detected [facility] Coronavirus NL63 RNA Not Detected Not Detected [facility] Coronavirus OC43 RNA Not Detected Not Detected [facility] Adenovirus DNA Not Detected Not Detected [facility] Metapneumovirus RNA Not Detected Not Detected [facility] Rhinovirus/Enterov irus RNA Not Detected Not Detected [facility] Parainfluenza 1 RNA Not Detected Not Detected [facility] Parainfluenza 2 RNA Not Detected Not Detected [facility] Parainfluenza 3 RNA Not Detected Not Detected [facility] Parainfluenza 4 RNA Not Detected Not Detected [facility] B. pertussis DNA Not Detected Not Detected [facility] B. parapertussis DNA Not Detected Not Detected [facility] C. pneumoniae DNA Not Detected Not Detected [facility] M. pneumoniae DNA Not Detected Not Detected [facility] Nasopharyngeal 10/16/2024 8: 26 PM CIGAR HEAD HOLER 10/16/2024 8:41 PM CIGAR HEAD HOLER Narrative [facility] - 10/16/2024 9:39 PM CIGAR HEAD HOLER Is the Patient experiencing symptoms consistent with COVID?->Yes Surveillance testing for transplant patient?->No Interpretive Data The Intcomex FilmArray Respiratory Panel (RP2.1) assay is a [...] assay has FDA clearance for testing of LACE WINDER swabs. The performance of additional specimen types has been assessed by the performing laboratory. The performance characteristics of this assay have been determined by [facility] Molecular Infectious Disease Laboratory. Current interpretive data was last revised on 22. Chata Hardin MD LAB MICROBIOLOGY - GENERAL ORDER DAWSON Final Result DAVID [facility] [place] [address] * POCT glucose (10/16/2024 5:16 PM CIGAR HEAD HOLER) Glucose, POC 78 70 - 199 mg/dL Blood 10/16/2024 5:16 PM CIGAR HEAD HOLER 10/16/2024 5:16 PM CIGAR HEAD HOLER Marcus Vergara MD LAB POCT ORDERABLES - DEVICE Fi nal Result Performing Organization Address City/[facility]/ZIP Co de Phone Number DAVID [facility] [place] [address] * Surgical pathology (10/16/2024 1:57 PM CIGAR HEAD HOLER) Biopsy (Bone Marrow Biopsy) 10/16/2024 1:57 PM CIGAR HEAD HOLER 10/16/2024 2:26 PM CIGAR HEAD HOLER Narrative PATHOLOGY [facility] - 10/19/2024 5:18 PM CIGAR HEAD HOLER EPIC results best viewed via link to PDF [facility] [place] [address] Note to Patients: This report may contain [...] Gender: F : 1965 (Age: 59) Address: [address] [place], [place] [id number] Hospital #: [id number] Taken:10/16/2024 Received:10/16/2024 Reported: 10/19/2024 Patient Type: [facility] Inpatient Service: BoneMarTranspl Location: [place] [address] Physician(s): SANDY Royal M.D. Diagnosis: Bone marrow, [...] B1. Jar 0. sxst/10/16/2024 15:09 PA(s): Halina Dawn CBC: Date: 10/16/2024 WBCs: 0.0x10^3/mcl Hemoglobin: 9.3g/dl [...] CD34 and CD117 (1-2% of cellular events). TI76-nwbfgydi blasts are not increased. Lymphocyte-gated events account for 72% of the overall cellularity and include a population of CD3-positive T-cells, comprising 73% of lymphocytes, showing no significant loss of cheng T-cell antigens and have an increased CD4 to CD8 ratio (9:1). There is a small population of WN96-ydocjfxx cells, 7% of lymphocytes, consistent with natural killer cells. A Suárez-Giemsa stained cytospin from the flow cytometry specimen was examined for internal manager quality improvement purposes. Flow cytometry was performed using antibodies [...] Surgical Pathology and Flow Cytometry Departments at [facility] as part of an ongoing quality manager program and in compliance with federally mandated [...] Surgical Pathology and Flow Cytometry Departments of [facility]. It has not been cleared or approved by the U. S. Food and Drug Administration. IMAGES AND SCANNED DOCUMENTS, IF INCLUDED, ONLY VIEWABLE IN PDF VERSION OF REPORT Brooke Desai NP LAB PATHOLOGY ORDERABLES Rosalva l Result PATHOLOGY [facility] 3rd Floor [place], [place] [phone] * Transfuse platelets (10/16/2024 12:00 PM CIGAR HEAD HOLER) Marcus Vergara MD BLOOD TRANSFUSION ORDERABLES Fi nal Result [facility] [place] [address] * Flow Leukemia/Lymphoma Bone marrow (10/16/2024 11:50 AM CIGAR HEAD HOLER) Suárez Stain Test Completed Leukemia/Lymp emily Result See separate Surgical Pathology report. [facility] Bone marrow 10/16/2024 11:5 0 AM CIGAR HEAD HOLER 10/16/2024 3:05 PM CIGAR HEAD HOLER Brooke Desai LACE WINDER LAB PATHOLOGY ORDERABLES Rosalva l Result Performing Organization Address City/[facility]/ZIP Co de Phone Number [facility] [place] [place] [address] * Prepare platelets: 1 Units (10/16/2024 9:56 AM CIGAR HEAD HOLER) [facility] Product code [id number] Unit Number [id number] [facility] Product Blood Type APOS [facility] Dispense Status PRESUMED TRANSFUSED [facility] Blood Venous blood specimen / Unknown 10/16/2024 9:56 AM CIGAR HEAD HOLER 10/16/2024 9:56 AM CIGAR HEAD HOLER Narrative [facility] - 10/17/2024 12:56 AM CIGAR HEAD HOLER Are special requirements needed? (all products are leukoreduced)->Yes Date required:-[id number] Special Req 1:-Irradiated PLT # of Units:-1-Units Reasons:-Stable, non-bleeding, plt < 10 K/cumm} Marcus Vergara MD BLOOD BANK PRODUCT ORDERABLES F inal Result Performing Organization Address [facility] Co de Phone Number [facility] [place] [address] * (ABNORMAL) Immature platelet fraction (10/16/2024 4:23 AM CIGAR HEAD HOLER) [facility] IPF 0.7(L) 1.6 - 10.1 % Blood 10/16/2024 4:23 AM CIGAR HEAD HOLER 10/16/2024 5:10 AM CIGAR HEAD HOLER Marcus Vergara MD LAB BLOOD ORDERABLES Final Resu lt Performing Organization Address [facility] [place] [address] * eGFR (10/16/2024 4:23 AM CIGAR HEAD HOLER) eGFR >90 >=60 mL/min/1. 73 m2 Comment: [...] last reviewed 2021. Blood 10/16/2024 4:23 AM CIGAR HEAD HOLER 10/16/2024 5:05 AM CIGAR HEAD HOLER us Marcus Vergara MD LAB BLOOD ORDERABLES Final Resu lt DAVID [facility] [place] [address] * (ABNORMAL) Manual Differential (10/16/2024 4:23 AM CIGAR HEAD HOLER) Pathologist [facility] Differential Manual Cells Counted 4 [facility] Neutrophil pct 0.0 % [facility] Comment: Interpretive Data Percent cell count reference ranges are not reported, since discordance with absolute values may lead to misinterpretation of CBC data. Current Interpretive Data was last revised on 2017. Lymphocyte pct 100.0 % DAVID [facility] Comment: Interpretive Data Percent cell count reference ranges are not reported, since discordance with absolute values may lead to misinterpretation of CBC data. Current Interpretive Data was last revised on 2017. RBC morphology Present(A) DAVID GARC[facility]A Anisocytosis Slight(A) DAVID [facility] Macrocytes 3-7/HPF(A) [facility] Platelet estimate Decreased( A) [facility] Blood 10/16/2024 4:23 AM CIGAR HEAD HOLER 10/16/2024 5:05 AM CIGAR HEAD HOLER us Marcus Vergara MD LAB BLOOD ORDERABLES Final Resu lt [facility] [place] [address] * (ABNORMAL) CBC without differential (10/16/2024 4:23 AM CIGAR HEAD HOLER) WBC 0.0(C) 3.8 - 9.9 K/cumm Comment:Consistent with prev ious reported value Hgb 9.3(L) 11.9 - 15.5 g/dL [facility] Hct 27.0(L) 35.6 - 45.5 % [facility] Plt 7(C) 150 - 400 K/cumm [facility] Comment: Platelet count confirmed by additional testing. Critical platelet count threshold determined by patient location: Outpatient:<50 K-cumm , Inpatient:<20 K-cumm , BMT service:<10 K-cumm roman maria rn. Critical result called to and read back by ROMAN MARIA RN on 10 16 2024 at 0525 to Kristin Matute. MPV 12.7(H) 9.1 - 12.3 fL [facility] RBC 3.04(L) 3.90 - 5.20 M/cumm [facility] MCV 88.8 81.3 - 96.4 fL [facility] MCH 30.6 27.1 - 33.3 pg [facility] MCHC 34.4 32.3 - 35.7 g/dL [facility] RDW CV 15.7(H) 11.1 - 14.9 % [facility] RDW SD 51.0(H) 35.7 - 48.1 fL [facility] NRBC abs 0.00 0.00 - 0.01 K/cumm [facility] Blood 10/16/2024 4:23 AM CIGAR HEAD HOLER 10/16/2024 5:05 AM CIGAR HEAD HOLER us Marcus Vergara MD LAB BLOOD ORDERABLES Final Resu lt Performing Organization Address City/[facility] Co de Phone Number [facility] [place] [address] * (ABNORMAL) Phosphorus (10/16/2024 4:23 AM CIGAR HEAD HOLER) Pathologist [facility] Phosphorus, pl 1.5(L) 2.3 - 4.5 mg/dL Blood 10/16/2024 4:23 AM CIGAR HEAD HOLER 10/16/2024 5:05 AM CIGAR HEAD HOLER us Marcus Vergara MD LAB BLOOD ORDERABLES Final Resu lt Performing Organization Address [facility] Co de Phone Number [facility] [place] [address] * Magnesium (10/16/2024 4:23 AM CIGAR HEAD HOLER) [facility] Magnesium 1.7 1.4 - 2.5 mg/dL Blood 10/16/2024 4:23 AM CIGAR HEAD HOLER 10/16/2024 5:05 AM CIGAR HEAD HOLER us Marcus Vergara MD LAB BLOOD ORDERABLES Final Resu lt Performing Organization Address [facility] Co de Phone Number [facility] [place] [address] * (ABNORMAL) Basic metabolic panel (10/16/2024 4:23 AM CIGAR HEAD HOLER) Sodium 135 135 - 145 mmol/L Potassium, pl 3.2(L) 3.3 - 4.9 mmol/L [facility] Chloride 96(L) 97 - 110 mmol/L [facility] CO2 32 22 - 32 mmol/L [facility] Anion gap 7 2 - 15 mmol/L [facility] BUN 8 6 - 25 mg/dL [facility] Creatinine 0.48(L) 0.60 - 1.10 mg/dL [facility] Glucose 98 70 - 199 mg/dL [facility] Comment: Interpretive Data Fasting glucose >/= 126 [...] 2022. Calcium 7.5(L) 8.5 - 10.3 mg/dL [facility] Blood 10/16/2024 4:23 AM CIGAR HEAD HOLER 10/16/2024 5:05 AM CIGAR HEAD HOLER us Marcus Vergara MD LAB BLOOD ORDERABLES Final Resu lt Performing Organization Address [facility] Co de Phone Number [facility] [place] [address] * (ABNORMAL) Vancomycin level trough Draw trough 30 minutes prior to 4th dose. (10/15/2024 9:26 PM CIGAR HEAD HOLER) [facility] Vancomycin trough 8.7(L) 10.0 - 20.0 mcg/mL Blood 10/15/2024 9:26 PM CIGAR HEAD HOLER 10/15/2024 9:53 PM CIGAR HEAD HOLER [facility]ative [facility] 10/15/2024 10:19 PM CIGAR HEAD HOLER Draw trough 30 minutes prior to 4th dose. us Marcus Vergara MD LAB BLOOD ORDERABLES Final Resu lt Performing Organization Address [facility] Co de Phone Number [facility] [place] [address] * Transfuse platelets (10/15/2024 5:32 PM CIGAR HEAD HOLER) us Marcus Vergara MD BLOOD TRANSFUSION ORDERABLES Fi nal Result Performing Organization Address [facility]/ZIP Co de Phone Number [facility] [place] [address] * Prepare platelets: 1 Units (10/15/2024 5:42 AM CIGAR HEAD HOLER) [facility] Product code [id number] Unit Number [id number] [facility] Product Blood Type OPOS [facility] Dispense Status PRESUMED TRANSFUSED [facility] Blood Venous blood specimen / Unknown 10/15/2024 5:42 AM CIGAR HEAD HOLER 10/15/2024 5:41 AM CIGAR HEAD HOLER Narrative [facility] - 10/16/2024 8:02 AM CIGAR HEAD HOLER Are special requirements needed? (all products are leukoreduced)->Yes Date required:-20240929 Special Req 1:-Irradiated PLT # of Units:-1-Units Reasons:-Stable, non-bleeding, plt < 10 K/cumm} Marcus Vergara MD BLOOD BANK PRODUCT ORDERABLES F inal Result Performing Organization Address [facility] Co de Phone Number [facility] [place] [address] * Immature platelet fraction (10/15/2024 3:06 AM CIGAR HEAD HOLER) [facility] IPF 2.2 1.6 - 10.1 % Blood 10/15/2024 3:06 AM CIGAR HEAD HOLER 10/15/2024 3:53 AM CIGAR HEAD [employer]OLER Marcus Vergara MD LAB BLOOD ORDERABLES Final Resu lt Performing Organization Address [facility]/ZIP Co de Phone Number [facility] [place] [employer] [place] [address] * eGFR (10/15/2024 3:06 AM CIGAR HEAD HOLER) [facility] eGFR >90 >=60 mL/min/1. 73 m2 [...] last reviewed 2021. Blood 10/15/2024 3:06 AM CIGAR HEAD HOLER 10/15/2024 3:49 AM CIGAR HEAD HOLER Marcus Vergara MD LAB BLOOD ORDERABLES Final Resu lt Performing Organization Address [facility] de Phone Number [facility] [place] [address] * (ABNORMAL) Manual Differential (10/15/2024 3:06 AM CIGAR HEAD HOLER) Differential Manual Cells Counted 1 [facility] Neutrophil pct 0.0 % [facility] Comment: Interpretive Data Percent cell count reference ranges are not reported, since discordance with absolute values may lead to misinterpretation of CBC data. Current Interpretive Data was last revised on 2017. Lymphocyte pct 100.0 % [facility] Comment: Interpretive Data Percent cell count reference ranges are not reported, since discordance with absolute values may lead to misinterpretation of CBC data. Current Interpretive Data was last revised on 2017. RBC morphology Normal [facility] Platelet estimate Decreased( A) [facility] Blood 10/15/2024 3:06 AM CIGAR HEAD HOLER 10/15/2024 3:49 AM CIGAR HEAD HOLER Marcus Vergara MD LAB BLOOD ORDERABLES Final Resu lt Performing Organization Address [facility]/ZIP Co de Phone Number [facility] [place] [address] * (ABNORMAL) CBC without differential (10/15/2024 3:06 AM CIGAR HEAD HOLER) WBC 0.0(C) 3.8 - 9.9 K/cumm Comment:Consistent with prev ious reported value Hgb 8.6(L) 11.9 - 15.5 g/dL [facility] Hct 25.1(L) 35.6 - 45.5 % [facility] Plt 3(C) 150 - 400 K/cumm [facility] Comment:DIANA JAMES RN. Ami ritical result called to and read back by DIANA JAMES RN on 10 15 2024 at 0405 to Kristin Matute. MPV 8.1(L) 9.1 - 12.3 fL [facility] RBC 2.85(L) 3.90 - 5.20 M/cumm [facility] MCV 88.1 81.3 - 96.4 fL [facility] MCH 30.2 27.1 - 33.3 pg [facility] MCHC 34.3 32.3 - 35.7 g/dL [facility] RDW CV 16.0(H) 11.1 - 14.9 % [facility] RDW SD 52.0(H) 35.7 - 48.1 fL [facility] NRBC abs 0.00 0.00 - 0.01 K/cumm [facility] Blood 10/15/2024 3:06 AM CIGAR HEAD HOLER 10/15/2024 3:49 AM CIGAR HEAD HOLER us Marcus Vergara MD LAB BLOOD ORDERABLES Final Resu lt DAVID [facility] [place] [address] * Type and screen (10/15/2024 3:06 AM CIGAR HEAD HOLER) Pathologist [facility] ABO Rh A Positive Bing, indirect Negative [facility] Blood 10/15/2024 3:06 AM CIGAR HEAD HOLER 10/15/2024 4:16 AM CIGAR HEAD HOLER Narrative [facility] - 10/15/2024 5:18 AM CIGAR HEAD HOLER Has the patient had Daratumumab or Isatuximab in the past 6 months?->Unknown Marcus Vergara MD LAB BLOOD BANK TEST ORDERABLES Final Result [facility] [employer] [place] [address] * (ABNORMAL) Uric acid (10/15/2024 3:06 AM CIGAR HEAD HOLER) Uric acid 0.7(L) 2.5 - 7.0 mg/dL Blood 10/15/2024 3:06 AM CIGAR HEAD HOLER 10/15/2024 3:49 AM CIGAR HEAD HOLER Narrative [facility] 10/15/2024 4:21 AM CIGAR HEAD HOLER Saturday and only. Morning draw. . Marcus Vergara MD LAB BLOOD ORDERABLES Final Resu lt Performing Organization Address [facility]/[place] [address] * (ABNORMAL) Phosphorus (10/15/2024 3:06 AM CIGAR HEAD HOLER) Phosphorus, pl 1.7(L) 2.3 - 4.5 mg/dL Blood 10/15/2024 3:06 AM CIGAR HEAD HOLER 10/15/2024 3:49 AM CIGAR HEAD HOLER Marcus Vergara MD LAB BLOOD ORDERABLES Final Resu lt [facility] [employer] [place] [address] * Magnesium (10/15/2024 3:06 AM CIGAR HEAD HOLER) Magnesium 1.4 1.4 - 2.5 mg/dL Blood 10/15/2024 3:06 AM CIGAR HEAD HOLER 10/15/2024 3:49 AM CIGAR HEAD HOLER us Marcus Vergara MD LAB BLOOD ORDERABLES Final Resu lt Performing Organization Address [facility] Co de Phone Number [facility] [place] [address] * Lactate dehydrogenase (LD) (10/15/2024 3:06 AM CIGAR HEAD HOLER) [facility] Lactate dehydrogenase (LDH) 128 100 - 250 Units/L Blood 10/15/2024 3:06 AM CIGAR HEAD HOLER 10/15/2024 3:49 AM CIGAR HEAD HOLER Narrative [facility] - 10/15/2024 4:21 AM CIGAR HEAD HOLER Saturday and only. Morning draw. us Marcus Vergara MD LAB BLOOD ORDERABLES Final Resu lt Performing Organization Address [facility] de Phone Number [facility] [place] [place] [address] * (ABNORMAL) Comprehensive metabolic panel (10/15/2024 3:06 AM CIGAR HEAD HOLER) [facility] Sodium 134(L) 135 - 145 mmol/L Potassium, pl 3.2(L) 3.3 - 4.9 mmol/L [facility] Chloride 95(L) 97 - 110 mmol/L [facility] CO2 30 22 - 32 mmol/L [facility] Anion gap 9 2 - 15 mmol/L [facility] BUN 9 6 - 25 mg/dL [facility] Creatinine 0.58(L) 0.60 - 1.10 mg/dL [facility] Glucose 120 70 - 199 mg/dL [facility] Comment: Interpretive Data Fasting glucose >/= 126 [...] 2022. Calcium 7.2(L) 8.5 - 10.3 mg/dL [facility] Bilirubin, total 1.3(H) 0.1 - 1.2 mg/dL [facility] Protein, pl 5.6(L) 6.5 - 8.5 g/dL [facility] Albumin 2.4(L) 3.5 - 5.0 g/dL [facility] Alk phos 62 40 - 130 Units/L [facility] ALT 13 7 - 45 Units/L [facility] AST 7(L[facility] 10 - 45 Units/L [facility] Blood 10/15/2024 3:06 AM CIGAR HEAD HOLER 10/15/2024 3:49 AM CIGAR HEAD HOLER Narrative [facility] - 10/15/2024 4:21 AM CIGAR HEAD HOLER Saturday and only. Morning draw. us Marcus Vergara MD LAB BLOOD ORDERABLES Final Resu lt [facility] [place] [address] * Blood culture Blood Peripheral (10/14/2024 12:54 PM CIGAR HEAD HOLER) Report Final Report: No growth Blood (Peripheral) 10/14/2024 12:54 PM CIGAR HEAD HOLER 10/14/2024 1:32 PM CIGAR HEAD HOLER Narrative [facility] - 10/18/2024 4:00 PM CIGAR HEAD HOLER Collection->Peripheral 1. Blood cultures are incubated for [...] performance characteristics have been verified by the [facility] Microbiology Laboratory. For questions about this culture, contact the Microbiology Laboratory at [phone]. Interpretive data was last revised on 24. Marcus Vergara MD LAB MICROBIOLOGY - GENERAL JUAN GONZALEZ Final Result [facility] GARC[facility]A [facility] [place] [address] * Blood culture Blood Peripheral (10/14/2024 12:54 PM CIGAR HEAD HOLER) Report Final Report: No growth Blood (Peripheral) 10/14/2024 12:54 PM CIGAR HEAD HOLER 10/14/2024 1:32 PM CIGAR HEAD HOLER Narrative [facility] - 10/18/2024 4:00 PM CIGAR HEAD HOLER Collection->Peripheral 1. Blood cultures are incubated for [...] performance characteristics have been verified by the [facility] Microbiology Laboratory. For questions about this culture, contact the Microbiology Laboratory at [phone]. Interpretive data was last revised on 24. us Marcus Vergara MD LAB MICROBIOLOGY - GENERAL ORDE RABLES Final Result Performing Organization Address [facility]/ZIP Co de Phone Number [facility] [place] [address] * Prepare platelets: 1 Units (10/14/2024 5:58 AM CIGAR HEAD HOLER) Pathologist [facility] Product code [id number] Unit Number [id number] [facility] Product Blood Type APOS [facility] Dispense Status PRESUMED TRANSFUSED [facility] Blood Venous blood specimen / Unknown 10/14/2024 5:58 AM CIGAR HEAD HOLER 10/14/2024 5:57 AM CIGAR HEAD HOLER Narrative [facility] - 10/15/2024 12:57 AM CIGAR HEAD HOLER Are special requirements needed? (all products are leukoreduced)->Yes Date required:-20240929 Special Req 1:-Irradiated PLT # of Units:-1-Units Reasons:-Stable, non-bleeding, plt < 10 K/cumm} Result [facility] Marcus Vergara MD BLOOD BANK PRODUCT ORDERABLES F inal Result Performing Organization Address [facility] Co de Phone Number [facility] [place] [address] * Immature platelet fraction (10/14/2024 3:40 AM CIGAR HEAD HOLER) Pathologist [facility] IPF 2.5 1.6 - 10.1 % Blood 10/14/2024 3:40 AM CIGAR HEAD HOLER 10/14/2024 5:14 AM CIGAR HEAD HOLER Result [facility] us Marcsu Vergara MD LAB BLOOD ORDERABLES Final Resu lt Performing Organization Address [facility] Co de Phone Number [facility] [place] [address] * eGFR (10/14/2024 3:40 AM CIGAR HEAD HOLER) eGFR >90 >=60 mL/min/1. 73 m2 Comment: [...] last reviewed 2021. Blood 10/14/2024 3:40 AM CIGAR HEAD HOLER 10/14/2024 4:10 AM CIGAR HEAD HOLER us Marcus Vergara MD LAB BLOOD ORDERABLES Final Resu lt [facility] [place] [address] * (ABNORMAL) Manual Differential (10/14/2024 3:40 AM CIGAR HEAD HOLER) Pathologist [facility] Differential Manual Cells Counted 3 [facility] Neutrophil pct 0.0 % [facility] Comment: Interpretive Data Percent cell count reference ranges are not reported, since discordance with absolute values may lead to misinterpretation of CBC data. Current Interpretive Data was last revised on 2017. Lymphocyte pct 100.0 % [facility] Comment: Interpretive Data Percent cell count reference ranges are not reported, since discordance with absolute values may lead to misinterpretation of CBC data. Current Interpretive Data was last revised on 2017. RBC morphology Normal [facility] Platelet estimate Decreased( A) [facility] Blood 10/14/2024 3:40 AM CIGAR HEAD HOLER 10/14/2024 4:10 AM CIGAR HEAD HOLER Marcus Vergara MD LAB BLOOD ORDERABLES Edited Res ult - Final [facility] [place] [address] * (ABNORMAL) CBC without differential (10/14/2024 3:40 AM CIGAR HEAD HOLER) WBC 0.0(C) 3.8 - 9.9 K/cumm Comment:Consistent with prev ious reported value Hgb 9.5(L) 11.9 - 15.5 g/dL [facility] Hct 27.1(L) 35.6 - 45.5 % [facility] Plt 5(C) 150 - 400 K/cumm [facility] Comment:Critical result call ed to and read back by DIXON MULLINS RN on 10 14 2024 at 0550 to VIVIAN PLEIETZ. MPV 12.1 9.1 - 12.3 fL [facility] RBC 3.10(L) 3.90 - 5.20 M/cumm [facility] MCV 87.4 81.3 - 96.4 fL [facility] MCH 30.6 27.1 - 33.3 pg [facility] MCHC 35.1 32.3 - 35.7 g/dL [facility] RDW CV 16.0(H) 11.1 - 14.9 % [facility] RDW SD 50.6(H) 35.7 - 48.1 fL [facility] NRBC abs 0.00 0.00 - 0.01 K/cumm [facility] Blood 10/14/2024 3:40 AM CIGAR HEAD HOLER 10/14/2024 4:10 AM CIGAR HEAD HOLER Marcus Vergara MD LAB BLOOD ORDERABLES Final Resu lt [facility] [place] [address] * (ABNORMAL) Phosphorus (10/14/2024 3:40 AM CIGAR HEAD HOLER) [facility] Phosphorus, pl 1.4(L) 2.3 - 4.5 mg/dL Blood 10/14/2024 3:40 AM CIGAR HEAD HOLER 10/14/2024 4:10 AM CIGAR HEAD HOLER Marcus Vergara MD LAB BLOOD ORDERAB[place] [address] * Magnesium (10/14/2024 3:40 AM CIGAR HEAD HOLER) [facility] Magnesium 2.3 1.4 - 2.5 mg/dL Blood 10/14/2024 3:40 AM CIGAR HEAD HOLER 10/14/2024 4:10 AM CIGAR HEAD HOLER Marcus Vergara MD LAB BLOOD ORDERABLES Final Resu lt Performing Organization Address [facility] Co de Phone Number [facility] [place] [place] [address] * (ABNORMAL) Basic metabolic panel (10/14/2024 3:40 AM CIGAR HEAD HOLER) [facility] Sodium 136 135 - 145 mmol/L Potassium, pl 3.5 3.3 - 4.9 mmol/L [facility] Chloride 100 97 - 110 mmol/L [facility] CO2 29 22 - 32 mmol/L [facility] Anion gap 7 2 - 15 mmol/L [facility] BUN 12 6 - 25 mg/dL [facility] Creatinine 0.55(L) 0.60 - 1.10 mg/dL [facility] Glucose 118 70 - 199 mg/dL [facility] Comment: Interpretive Data Fasting glucose >/= 126 [...] 2022. Calcium 7.2(L) 8.5 - 10.3 mg/dL [facility] Blood 10/14/2024 3:40 AM CIGAR HEAD HOLER 10/14/2024 4:10 AM CIGAR HEAD HOLER us Marcus Vergara MD LAB BLOOD ORDERABLES Final Resu lt Performing Organization Address [facility] Co de Phone Number [facility] [place] [address] * Transfuse RBC (10/13/2024 2:23 PM CIGAR HEAD HOLER) Blood us Marcus Vergara MD BLOOD TRANSFUSION ORDERABLES Fi nal Result Performing Organization Address [facility] Co de Phone Number [facility] [place] [address] * Transfuse platelets (10/13/2024 8:00 AM CIGAR HEAD HOLER) us Marcus Vergara MD BLOOD TRANSFUSION ORDERABLES Fi nal Result Performing Organization Address [facility] Co de Phone Number [facility] Department [place] [place] [address] * Prepare platelets: 1 Units (10/13/2024 4:42 AM CIGAR HEAD HOLER) [facility] Product code [id number] Unit Number [id number] [facility] Product Blood Type APOS [facility] Dispense Status PRESUMED TRANSFUSED [facility] Blood Venous blood specimen / Unknown 10/13/2024 4:42 AM CIGAR HEAD HOLER 10/13/2024 4:41 AM CIGAR HEAD HOLER Narrative [facility] - 10/13/2024 8:00 PM CIGAR HEAD HOLER Are special requirements needed? (all products are leukoreduced)->Yes Date required:-20240929 Special Req 1:-Irradiated PLT # of Units:-1-Units Reasons:-Stable, non-bleeding, plt < 10 K/cumm} Marcus Vergara MD BLOOD BANK PRODUCT ORDERABLES F inal Result Performing Organization Address [facility] Co de Phone Number [facility] [place] [address] * Prepare RBC: 1 Units (10/13/2024 4:42 AM CIGAR HEAD HOLER) [facility] Product code [id number] Unit Number [id number] C [facility] Product Blood Type APOS [facility] Dispense Status PRESUMED TRANSFUSED [facility] Blood Venous blood specimen / Unknown 10/13/2024 4:42 AM CIGAR HEAD HOLER 10/13/2024 4:41 AM CIGAR HEAD HOLER Narrative [facility] - 10/14/2024 12:56 AM CIGAR HEAD HOLER Are special requirements needed? (All products are leukoreduced and CMV- safe)- >Yes Date required:-20240929 Special Req 1:-Irradiated LRRBC # of [id number] Reasons:-BMT, Hgb <8 g/dL} Marcus Vergara MD BLOOD BANK PRODUCT ORDERABLES F inal Result Performing Organization Address [facility] Co de Phone Number [facility] [place] [address] * Immature platelet fraction (10/13/2024 3:11 AM CIGAR HEAD HOLER) Pathologist [facility] IPF 2.2 1.6 - 10.1 % Blood 10/13/2024 3:11 AM CIGAR HEAD HOLER 10/13/2024 4:20 AM CIGAR HEAD HOLER Marcus Vergara MD LAB BLOOD ORDERABLES Final Resu lt Performing Organization Address [facility] Co de Phone Number [facility] [place] [address] * eGFR (10/13/2024 3:11 AM CIGAR HEAD HOLER) Pathologist [facility] eGFR >90 >=60 mL/min/1. 73 m2 Comment: [...] last reviewed 2021. Blood 10/13/2024 3:11 AM CIGAR HEAD HOLER 10/13/2024 4:11 AM CIGAR HEAD HOLER us Marcus Vergara MD LAB BLOOD ORDERABLES Final Resu lt Performing Organization Address [facility] Co de Phone Number [facility] [place] [address] * (ABNORMAL) Manual Differential (10/13/2024 3:11 AM CIGAR HEAD HOLER) Pathologist [facility] Differential Manual Cells Counted 1 [facility] Neutrophil pct 0.0 % [facility] Comment: Interpretive Data Percent cell count reference ranges are not reported, since discordance with absolute values may lead to misinterpretation of CBC data. Current Interpretive Data was last revised on 2017. Lymphocyte pct 100.0 % [facility] Comment: Interpretive Data Percent cell count reference ranges are not reported, since discordance with absolute values may lead to misinterpretation of CBC data. Current Interpretive Data was last revised on 2017. RBC morphology Normal [facility] Platelet estimate Decreased( A) [facility] Blood 10/13/2024 3:11 AM CIGAR HEAD HOLER 10/13/2024 4:11 AM CIGAR HEAD HOLER Marcus Vergara MD LAB BLOOD ORDERABLES Final Resu lt [facility] [place] [address] * (ABNORMAL) CBC without differential (10/13/2024 3:11 AM CIGAR HEAD HOLER) WBC 0.0(C) 3.8 - 9.9 K/cumm Comment:Consistent with prev ious reported value Hgb 7.8(L) 11.9 - 15.5 g/dL [facility] Hct 22.9(L) 35.6 - 45.5 % [facility] Plt 4(C) 150 - 400 K/cumm [facility] Comment:cora wiggins rn. Critical result called to and read back by CORA WIGGINS RN on 10 13 2024 at 0440 to Kristin Matute. MPV Not Measured 9.1 - 12.3 fL [facility] RBC 2.59(L) 3.90 - 5.20 M/cumm [facility] MCV 88.4 81.3 - 96.4 fL [facility] MCH 30.1 27.1 - 33.3 pg [facility] MCHC 34.1 32.3 - 35.7 g/dL [facility] RDW CV 16.0(H) 11.1 - 14.9 % [facility] RDW SD 52.0(H) 35.7 - 48.1 fL [facility] NRBC abs 0.00 0.00 - 0.01 K/cumm [facility] Blood 10/13/2024 3:11 AM CIGAR HEAD HOLER 10/13/2024 4:11 AM CIGAR HEAD HOLER us Marcus Vergara MD LAB BLOOD ORDERABLES Final Resu lt Performing Organization Address [facility] Co de Phone Number [facility] [employer] [place] [address] * (ABNORMAL) Phosphorus (10/13/2024 3:11 AM CIGAR HEAD HOLER) [facility] Phosphorus, pl 1.7(L) 2.3 - 4.5 mg/dL Blood 10/13/2024 3:11 AM CIGAR HEAD HOLER 10/13/2024 4:11 AM CIGAR HEAD HOLER us Marcus Vergara MD LAB BLOOD ORDERABLES Final Resu lt Performing Organization Address [facility] HOSPITAL Co de Phone Number [facility] [employer] [place] [address] * Magnesium (10/13/2024 3:11 AM CIGAR HEAD HOLER) [facility] Magnesium 1.8 1.4 - 2.5 mg/dL Blood 10/13/2024 3:11 AM CIGAR HEAD HOLER 10/13/2024 4:11 AM CIGAR HEAD HOLER us Marcus Vergara MD LAB BLOOD ORDERABLES Final Resu lt Performing Organization Address [facility] Co de Phone Number [facility] [place] [employer] [place] [address] * (ABNORMAL) Basic metabolic panel (10/13/2024 3:11 AM CIGAR HEAD HOLER) [facility] Sodium 136 135 - 145 mmol/L Potassium, pl 4.0 3.3 - 4.9 mmol/L [facility] Chloride 100 97 - 110 mmol/L [facility] CO2 29 22 - 32 mmol/L [facility] Anion gap 7 2 - 15 mmol/L [facility] BUN 13 6 - 25 mg/dL [facility] Creatinine 0.51(L) 0.60 - 1.10 mg/dL [facility] Glucose 156 70 - 199 mg/dL [facility] Comment: Interpretive Data Fasting glucose >/= 126 [...] 2022. Calcium 7.5(L) 8.5 - 10.3 mg/dL [facility] Blood 10/13/2024 3:11 AM CIGAR HEAD HOLER 10/13/2024 4:11 AM CIGAR HEAD HOLER Marcus Vergara MD LAB BLOOD ORDERABLES Final Resu lt Performing Organization Address [facility]/ZIP Co de Phone Number [facility] Department [place] [employer] [place] [employer] [address] * Transfuse platelets (10/12/2024 11:02 AM CIGAR HEAD HOLER) Marcus Vergara MD BLOOD TRANSFUSION ORDERABLES Fi nal Result Performing Organization Address [facility] Co de Phone Number [facility] Department [place] [employer] [place] [employer] [address] * Prepare platelets: 1 Units (10/12/2024 5:32 AM CIGAR HEAD HOLER) Product code [id number] Unit Number [id number] [facility] Product Blood Type APOS [facility] Dispense Status PRESUMED TRANSFUSED [facility] Blood Venous blood specimen / Unknown 10/12/2024 5:32 AM CIGAR HEAD HOLER 10/12/2024 5:31 AM CIGAR HEAD HOLER Narrative [facility] - 10/12/2024 8:00 PM CIGAR HEAD HOLER Are special requirements needed? (all products are leukoreduced)->Yes Date required:-[id number] Special Req 1:-Irradiated PLT # of Units:-1-Units Reasons:-Stable, non-bleeding, plt < 10 K/cumm} us Marcus Vergara MD BLOOD BANK PRODUCT ORDERABLES F inal Result DAVID [facility] [place] [address] * (ABNORMAL) Immature platelet fraction (10/12/2024 3:51 AM CIGAR HEAD HOLER) Pathologist [facility] IPF 1.2(L) 1.6 - 10.1 % Blood 10/12/2024 3:51 AM CIGAR HEAD HOLER 10/12/2024 4:27 AM C[employer]AR HEAD HOLER Marcus Vergara MD LAB BLOOD ORDERABLES Final Resu lt Performing Organization Address [facility] Co de Phone Number [facility] [place] [address] * eGFR (10/12/2024 3:51 AM CIGAR HEAD HOLER) [facility] eGFR >90 >=60 mL/min/1. 73 m2 [...] last reviewed 2021. Blood 10/12/2024 3:51 AM CIGAR HEAD HOLER 10/12/2024 4:24 AM CIGAR HEAD HOLER Result [facility] Marcus Vergara MD LAB BLOOD ORDERABLES Final Resu lt Performing Organization Address [facility] Co de Phone Number [facility] [employer] [place] [address] * (ABNORMAL) Manual Differential (10/12/2024 3:51 AM CIGAR HEAD HOLER) Differential Manual Cells Counted 0 [facility] Neutrophil pct 0.0 % [facility] Comment: Interpretive Data Percent cell count reference ranges are not reported, since discordance with absolute values may lead to misinterpretation of CBC data. Current Interpretive Data was last revised on 2017. RBC morphology Present(A) [facility] Anisocytosis Slight(A) [facility] Macrocytes 3-7/HPF(A) [facility] Platelet estimate Decreased( A) [facility] Blood 10/12/2024 3:51 AM CIGAR HEAD HOLER 10/12/2024 4:24 AM CIGAR HEAD HOLER Result [facility] Marcus Vergara MD LAB BLOOD ORDERABLES Edited Res ult - Final Performing Organization Address [facility] Co de Phone Number [place] [address] * aPTT (10/12/2024 3:51 AM CIGAR HEAD HOLER) aPTT 30 28 - 38 sec Comment: Interpretive Data Heparin therapeutic range: 66.0 - 100.0 seconds. Range based on correlation with therapeutic heparin activity range of 0.3 - 0.7 Units/mL. Current interpretive data was last revised on 2023. Blood 10/12/2024 3:51 AM CIGAR HEAD HOLER 10/12/2024 4:21 AM CIGAR HEAD HOLER Result [facility] Marcus Vergara MD LAB BLOOD ORDERABLES Final Resu lt Performing Organization Address [facility] Co de Phone Number DAVID GARCÍA [facility] [place] [address] * (ABNORMAL) Protime-INR (10/12/2024 3:51 AM CIGAR HEAD HOLER) PT 17.7(H) 9.7 - 13.0 sec INR 1.62(H) 0.90 - 1.20 [facility] Comment: Interpretive data Oral anticoagulant therapeutic ranges: Venous thromboembolism prophylaxis or treatment: 2.0-3.0 CARDIOLOGY Standard range: 2.0-3.0 High-intensity range: 2.5-3.5 Refer to indication-specific guidelines for appropriate target ranges for prosthetic heart valve replacement. Current interpretive data was last revised on 2019. Blood 10/12/2024 3:51 AM CIGAR HEAD HOLER 10/12/2024 4:21 AM CIGAR HEAD HOLER us Marcus Vergara MD LAB BLOOD ORDERABLES Final Resu lt [facility] [place] [address] * (ABNORMAL) CBC without differential (10/12/2024 3:51 AM CIGAR HEAD HOLER) Pathologist [facility] WBC 0.0(C) 3.8 - 9.9 K/cumm Comment:Consistent with prev ious reported value Hgb 8.2(L) 11.9 - 15.5 g/dL [facility] Hct 24.0(L) 35.6 - 45.5 % [facility] Plt 2(C) 150 - 400 K/cumm [facility] Comment:Critical result call ed to and read back by ARLEY AVILA RN on 10 12 2024 at 0500 to Rayne Pruitt. MPV 14.2(H) 9.1 - 12.3 fL [facility] RBC 2.72(L) 3.90 - 5.20 M/cumm [facility] MCV 88.2 81.3 - 96.4 fL [facility] MCH 30.1 27.1 - 33.3 pg [facility] MCHC 34.2 32.3 - 35.7 g/dL [facility] RDW CV 16.2(H) 11.1 - 14.9 % [facility] RDW SD 52.3(H) 35.7 - 48.1 fL [facility] NRBC abs 0.00 0.00 - 0.01 K/cumm [facility] Blood 10/12/2024 3:51 AM CIGAR HEAD HOLER 10/12/2024 4:24 AM CIGAR HEAD HOLER us Marcus Vergara MD LAB BLOOD ORDERABLES Final Resu lt Performing Organization Address [facility] Co de Phone Number [facility] [employer] [place] [address] * Type and screen (10/12/2024 3:51 AM CIGAR HEAD HOLER) Pathologist [facility] ABO Rh A Positive Bing, indirect Negative [facility] Blood 10/12/2024 3:51 AM CIGAR HEAD HOLER 10/12/2024 4:31 AM CIGAR HEAD HOLER Narrative [facility] - 10/12/2024 6:02 AM CIGAR HEAD HOLER Has the patient had Daratumumab or Isatuximab in the past 6 months?->Unknown us Marcus Vergara MD LAB BLOOD BANK TEST ORDERABLES Final Result Performing Organization Address [facility] [place] [address] * (ABNORMAL) Uric acid (10/12/2024 3:51 AM CIGAR HEAD HOLER) Pathologist [facility] Uric acid 0.9(L) 2.5 - 7.0 mg/dL Blood 10/12/2024 3:51 AM CIGAR HEAD HOLER 10/12/2024 4:24 AM CIGAR HEAD HOLER Narrative [facility] - 10/12/2024 4:52 AM CIGAR HEAD HOLER Saturday and only. Morning draw. . us Marcus Vergara MD LAB BLOOD ORDERABLES Final Resu lt Performing Organization Address [facility] Co de Phone Number [place] [address] * (ABNORMAL) Phosphorus (10/12/2024 3:51 AM CIGAR HEAD HOLER) Phosphorus, pl 1.7(L) 2.3 - 4.5 mg/dL Blood 10/12/2024 3:51 AM CIGAR HEAD HOLER 10/12/2024 4:24 AM CIGAR HEAD HOLER Marcus Vergara MD LAB BLOOD ORDERABLES Final Resu lt Performing Organization Address [facility] [place] [address] * Magnesium (10/12/2024 3:51 AM CIGAR HEAD HOLER) Pathologist [facility] Magnesium 1.7 1.4 - 2.5 mg/dL Blood 10/12/2024 3:51 AM CIGAR HEAD HOLER 10/12/2024 4:24 AM CIGAR HEAD HOLER Result [facility] Marcus Vergara MD LAB BLOOD ORDERABLES Final Resu lt Performing Organization Address [facility] [place] [address] * Lactate dehydrogenase (LD) (10/12/2024 3:51 AM CIGAR HEAD HOLER) Pathologist [facility] Lactate dehydrogenase (LDH) 206 100 - 250 Units/L Blood 10/12/2024 3:51 AM CIGAR HEAD HOLER 10/12/2024 4:24 AM CIGAR HEAD HOLER Narrative [facility] - 10/12/2024 5:27 AM CIGAR HEAD HOLER Saturday and only. Morning draw. us Marcus Vergara MD LAB BLOOD ORDERABLES Final Resu lt Performing Organization Address [facility] [place] [address] * (ABNORMAL) Comprehensive metabolic panel (10/12/2024 3:51 AM CIGAR HEAD HOLER) [facility] Sodium 132(L) 135 - 145 mmol/L Potassium, pl 4.1 3.3 - 4.9 mmol/L [facility] Chloride 98 97 - 110 mmol/L [facility] CO2 26 22 - 32 mmol/L [facility] Anion gap 8 2 - 15 mmol/L [facility] BUN 11 6 - 25 mg/dL [facility] Creatinine 0.53(L) 0.60 - 1.10 mg/dL [facility] Glucose 136 70 - 199 mg/dL [facility] Comment: Interpretive Data Fasting glucose >/= 126 [...] 2022. Calcium 7.7(L) 8.5 - 10.3 mg/dL [facility] Bilirubin, total 0.8 0.1 - 1.2 mg/dL [facility] Protein, pl 6.3(L) 6.5 - 8.5 g/dL [facility] Albumin 2.7(L) 3.5 - 5.0 g/dL [facility] Alk phos 74 40 - 130 Units/L [facility] ALT 19 7 - 45 Units/L [facility] AST 13 10 - 45 Units/L [facility] Blood 10/12/2024 3:51 AM CIGAR HEAD HOLER 10/12/2024 4:24 AM CIGAR HEAD HOLER Narrative [facility] - 10/12/2024 4:52 AM CIGAR HEAD HOLER Saturday and only. Morning draw. us Marcus Vergara MD LAB BLOOD ORDERABLES Final Resu lt [facility] [place] [address] * eGFR (10/11/2024 6:26 PM CIGAR HEAD HOLER) Pathologist [facility] eGFR >90 >=60 mL/min/1. 73 m2 Comment: [...] last reviewed 2021. Blood 10/11/2024 6:26 PM CIGAR HEAD HOLER 10/11/2024 6:45 PM CIGAR HEAD HOLER us Marcus Vergara MD LAB BLOOD ORDERABLES Final Resu lt [facility] [place] [address] * (ABNORMAL) Basic metabolic panel (10/11/2024 6:26 PM CIGAR HEAD HOLER) Pathologist [facility] Sodium 135 135 - 145 mmol/L Potassium, pl 4.0 3.3 - 4.9 mmol/L [facility] Chloride 99 97 - 110 mmol/L [facility] CO2 27 22 - 32 mmol/L [facility] Anion gap 9 2 - 15 mmol/L [facility] BUN 11 6 - 25 mg/dL [facility] Creatinine 0.51(L) 0.60 - 1.10 mg/dL [facility] Glucose 163 70 - 199 mg/dL [facility] Comment: Interpretive Data Fasting glucose >/= 126 [...] 2022. Calcium 7.9(L) 8.5 - 10.3 mg/dL [facility] Blood 10/11/2024 6:26 PM CIGAR HEAD HOLER 10/11/2024 6:45 PM CIGAR HEAD HOLER us Marcus Vergara MD LAB BLOOD ORDERABLES Final Resu lt Performing Organization Address [facility] Co de Phone Number [facility] [place] [address] * Transfuse platelets (10/11/2024 5:50 AM CIGAR HEAD HOLER) Marcus Vergaar MD BLOOD TRANSFUSION ORDERABLES Fi nal Result Performing Organization Address [facility] Co de Phone Number [facility] Department [place] [employer] [place] [address] * Prepare platelets: 1 Units (10/11/2024 3:28 AM CIGAR HEAD HOLER) Product code [id number] Unit Number [id number] [facility] Product Blood Type OPOS [facility] Dispense Status PRESUMED TRANSFUSED [facility] Blood Venous blood specimen / Unknown 10/11/2024 3:28 AM CIGAR HEAD HOLER 10/11/2024 3:27 AM CIGAR HEAD HOLER Narrative [facility] - 10/11/2024 4:00 PM CIGAR HEAD HOLER Are special requirements needed? (all products are leukoreduced)->Yes Date required:-[id number] Special Req 1:-Irradiated PLT # of Units:-1-Units Reasons:-Stable, non-bleeding, plt < 10 K/cumm} us Marcus Vergara MD BLOOD BANK PRODUCT ORDERABLES F inal Result DAVID [facility] [place] [address] * Immature platelet fraction (10/11/2024 12:33 AM CIGAR HEAD HOLER) IPF 3.3 1.6 - 10.1 % Blood 10/11/2024 12:3 3 AM CIGAR HEAD HOLER 10/11/2024 1:53 AM CIGAR HEAD HOLER us Marcus Vergara MD LAB BLOOD ORDERABLES Final Resu lt Performing Organization Address [facility] Co de Phone Number DAVID [facility] [place] [address] * eGFR (10/11/2024 12:33 AM CIGAR HEAD HOLER) [facility] eGFR >90 >=60 mL/min/1. 73 m2 [...] reviewed 2021. Blood 10/11/2024 12:3 3 AM CIGAR HEAD HOLER 10/11/2024 1:41 AM CIGAR HEAD HOLER us Marcus Vergara MD LAB BLOOD ORDERABLES Final Resu lt Performing Organization Address [facility]/ZIP Co de Phone Number DAVID [facility] [place] [address] * (ABNORMAL) Manual Differential (10/11/2024 12:33 AM CIGAR HEAD HOLER) Differential Manual Cells Counted 1 [facility] Neutrophil pct 0.0 % [facility] Comment: Interpretive Data Percent cell count reference ranges are not reported, since discordance with absolute values may lead to misinterpretation of CBC data. Current Interpretive Data was last revised on 2017. Lymphocyte pct 100.0 % [facility] Comment: Interpretive Data Percent cell count reference ranges are not reported, since discordance with absolute values may lead to misinterpretation of CBC data. Current Interpretive Data was last revised on 2017. RBC morphology Present(A) [facility] Anisocytosis Slight(A) [facility] Macrocytes 3-7/HPF(A) [facility] Platelet estimate Decreased( A) [facility] Blood 10/11/2024 12:3 3 AM CIGAR HEAD HOLER 10/11/2024 1:41 AM CIGAR HEAD HOLER Marcus Vergara MD LAB BLOOD ORDERABLES Edited Res ult - Final Performing Organization Address [facility] Co de Phone Number DAVID GARCÍA [facility] [place] [address] * (ABNORMAL) CBC without differential (10/11/2024 12:33 AM CIGAR HEAD HOLER) WBC 0.0(C) 3.8 - 9.9 K/cumm Comment:Consistent with prev ious reported value Hgb 8.3(L) 11.9 - 15.5 g/dL [facility] Hct 24.0(L) 35.6 - 45.5 % [facility] Plt 4(C) 150 - 400 K/cumm [facility] Comment:Critical result call ed to and read back by DAMON FLYNN RN on 10 11 2024 at 0225 to Dipo Okunrinboye. MPV 12.2 9.1 - 12.3 fL [facility] RBC 2.74(L) 3.90 - 5.20 M/cumm [facility] MCV 87.6 81.3 - 96.4 fL [facility] MCH 30.3 27.1 - 33.3 pg [facility] MCHC 34.6 32.3 - 35.7 g/dL [facility] RDW CV 16.7(H) 11.1 - 14.9 % [facility] RDW SD 53.5(H) 35.7 - 48.1 fL [facility] NRBC abs 0.00 0.00 - 0.01 K/cumm [facility] Blood 10/11/2024 12:3 3 AM CIGAR HEAD HOLER 10/11/2024 1:41 AM CIGAR HEAD HOLER Result [facility] us Marcus Vergara MD LAB BLOOD ORDERABLES Final Resu lt Performing Organization Address [facility] Co de Phone Number [facility] [place] [address] * (ABNORMAL) Phosphorus (10/11/2024 12:33 AM CIGAR HEAD HOLER) Phosphorus, pl 1.5(L) 2.3 - 4.5 mg/dL Blood 10/11/2024 12:3 3 AM CIGAR HEAD HOLER 10/11/2024 1:41 AM CIGAR HEAD HOLER us Marcus Vergara MD LAB BLOOD ORDERABLES Final Resu lt [facility] [place] [place] [address] * Magnesium (10/11/2024 12:33 AM CIGAR HEAD HOLER) Magnesium 2.0 1.4 - 2.5 mg/dL Blood 10/11/2024 12:3 3 AM CIGAR HEAD HOLER 10/11/2024 1:41 AM CIGAR HEAD HOLER us Marcus Vergara MD LAB BLOOD ORDERABLES Final Resu lt Performing Organization Address [facility]/ZIP Co de Phone Number [facility]ID [facility] [place] [address] * (ABNORMAL) Basic metabolic panel (10/11/2024 12:33 AM CIGAR HEAD HOLER) Sodium 128(L) 135 - 145 mmol/L Potassium, pl 4.2 3.3 - 4.9 mmol/L [facility] Comment:Hemolyzed; Potassium value may be falsely elevated by as much as 0.3-0.5 mmol/L. Suggest redraw and reanalysis. Chloride 97 97 - 110 mmol/L [facility] CO2 26 22 - 32 mmol/L [facility] Anion gap 5 2 - 15 mmol/L [facility] BUN 9 6 - 25 mg/dL [facility] Creatinine 0.53(L) 0.60 - 1.10 mg/dL [facility] Glucose 152 70 - 199 mg/dL [facility] Comment: Interpretive Data Fasting glucose >/= 126 [...] 2022. Calcium 7.8(L) 8.5 - 10.3 mg/dL [facility] Blood 10/11/2024 12:3 3 AM CIGAR HEAD HOLER 10/11/2024 1:41 AM CIGAR HEAD HOLER Marcus Vergara MD LAB BLOOD ORDERABLES Final Resu lt Performing Organization Address [facility]/ZIP Co de Phone Number DAVID GARCÍA [facility] [place] [address] * eGFR (10/10/2024 5:13 PM CIGAR HEAD HOLER) eGFR >90 >=60 mL/min/1. 73 m2 Comment: [...] last reviewed 2021. Blood 10/10/2024 5:13 PM CIGAR HEAD HOLER 10/10/2024 5:25 PM CIGAR HEAD HOLER Marcus Vergara MD LAB BLOOD ORDERABLES Final Resu lt DAVID [facility] Department [place] [employer] [place] [address] * (ABNORMAL) Phosphorus (10/10/2024 5:13 PM CIGAR HEAD HOLER) Phosphorus, pl 2.2(L) 2.3 - 4.5 mg/dL Blood 10/10/2024 5:13 PM CIGAR HEAD HOLER 10/10/2024 5:20 PM CIGAR HEAD HOLER Marcus Vergara MD LAB BLOOD ORDERABLES Final Resu lt DAVID [facility] [place] [address] * (ABNORMAL) Basic metabolic panel (10/10/2024 5:13 PM CIGAR HEAD HOLER) Sodium 130(L) 135 - 145 mmol/L Potassium, pl 4.3 3.3 - 4.9 mmol/L [facility] Chloride 96(L) 97 - 110 mmol/L [facility] CO2 25 22 - 32 mmol/L [facility] Anion gap 9 2 - 15 mmol/L [facility] BUN 8 6 - 25 mg/dL [facility] Creatinine 0.55(L) 0.60 - 1.10 mg/dL [facility] Glucose 153 70 - 199 mg/dL [facility] Comment: Interpretive Data Fasting glucose >/= 126 [...] 2022. Calcium 8.0(L) 8.5 - 10.3 mg/dL [facility] Blood 10/10/2024 5:13 PM CIGAR HEAD HOLER 10/10/2024 5:20 PM CIGAR HEAD HOLER us Marcus Vergara MD LAB BLOOD ORDERABLES Final Resu lt [facility] [place] [address] * Cortisol 60 min (10/10/2024 2:22 PM CIGAR HEAD HOLER) Cortisol, 60 min 31.0 mcg/dL Comment: Interpretive [...] to exclude adrenal failure. Literature References: 1. Javorsky BR, Maikel Claire, et al. New cutoffs for the biochemical diagnosis of adrenal insufficiency after ACTH stimulation using specific cortisol assays. J Endocr Soc. 2020;5(4):cift989. 2. Refugio DESHPANDE and Margareth CABRAL. New cutoffs for the biochemical diagnosis of Adrenal insufficiency after ACTH stimulation using specific cortisol assays. J. Endocrine Soc 2020;5:1-2. Current interpret data was last revised 24 Blood 10/10/2024 2:22 PM CIGAR HEAD HOLER 10/10/2024 2:35 PM CIGAR HEAD HOLER Narrative [facility]ID [facility] - 10/10/2024 3:11 PM CIGAR HEAD HOLER First draw prior to administration of cosyntropin. Second draw 30 minutes after administration of drug. Third draw 60 minutes after administration of drug. us Marcus Vergara MD LAB BLOOD ORDERABLES Final Resu lt [facility] [place] [address] * Cortisol 30 min (10/10/2024 1:53 PM CIGAR HEAD HOLER) [facility] Cortisol, 30 min 24.9 mcg/dL Comment: Interpretive [...] to exclude adrenal failure. Literature References: 1. Otoniel Gan Carroll TB, et al. New cutoffs for the biochemical diagnosis of adrenal insufficiency after ACTH stimulation using specific cortisol assays. J Endocr Soc. 2020;5(4):ukzf851. 2. Refugio DESHPANDE and Margareth CABRAL. New cutoffs for the biochemical diagnosis of Adrenal insufficiency after ACTH stimulation using specific cortisol assays. J. Endocrine Soc 2020;5:1-2. Current interpret data was last revised 24 Blood 10/10/2024 1:53 PM CIGAR HEAD HOLER 10/10/2024 2:35 PM CIGAR HEAD HOLER Narrative DAVID GARCÍA - 10/10/2024 3:11 PM CIGAR HEAD HOLER First draw prior to administration of cosyntropin. Second draw 30 minutes after administration of drug. Third draw 60 minutes after administration of drug. Marcus Vergara MD LAB BLOOD ORDERABLES Final Resu lt Performing Organization Address [facility] Co de Phone Number [facility] [place] [address] * Cortisol baseline (10/10/2024 1:22 PM CIGAR HEAD HOLER) Pathologist [facility] Cortisol, base 17.3 mcg/dL Blood 10/10/2024 1:22 PM CIGAR HEAD HOLER 10/10/2024 2:35 PM CIGAR HEAD HOLER Narrative DAVID GARCÍA - 10/10/2024 3:10 PM CIGAR HEAD HOLER First draw prior to administration of cosyntropin. Second draw 30 minutes after administration of drug. Third draw 60 minutes after administration of drug. us Marcus Vergara MD LAB BLOOD ORDERABLES Final Resu lt Performing Organization Address [facility] Co de Phone Number [facility] [place] [address] * eGFR (10/10/2024 8:54 AM CIGAR HEAD HOLER) eGFR >90 >=60 mL/min/1. 73 m2 Comment: [...] last reviewed 2021. Blood 10/10/2024 8:54 AM CIGAR HEAD HOLER 10/10/2024 12:27 PM CIGAR HEAD HOLER Marcus Vergara MD LAB BLOOD ORDERABLES Final Resu lt Performing Organization Address [facility] de Phone Number [facility] [employer] [place] [address] * (ABNORMAL) Cortisol (10/10/2024 8:54 AM CIGAR HEAD HOLER) Cortisol 20.2(H) 4.8 - 19.5 mcg/dL Comment: Interpretive Data: Morning hours 6-10 a.m. 4.8 - 19.5 mcg/dL Afternoon hours 4-8 p.m. 2.5 - 11.9 mcg/dL This analyte undergoes marked diurnal variation. Current interpretive data was last revised 24. Blood 10/10/2024 8:54 AM CIGAR HEAD HOLER 10/10/2024 12:27 PM [employer] Marcus Vergara MD LAB BLOOD ORDERABLES Final Resu lt Performing Organization Address [facility] de Phone Number [facility] [place] [employer] [place] [address] * (ABNORMAL) Basic metabolic panel (10/10/2024 8:54 AM CIGAR HEAD HOLER) Sodium 132(L) 135 - 145 mmol/L Comment:Repeated and Verifie d Potassium, pl 4.5 3.3 - 4.9 mmol/L [facility] Chloride 99 97 - 110 mmol/L [facility] Comment:Repeated and Verifie d CO2 27 22 - 32 mmol/L [facility] Anion gap 6 2 - 15 mmol/L [facility] Comment:Reviewed BUN 7 6 - 25 mg/dL [facility] Creatinine 0.54(L) 0.60 - 1.10 mg/dL [facility] Glucose 128 70 - 199 mg/dL [facility] Comment: Interpretive Data Fasting glucose >/= 126 [...] 2022. Calcium 7.0(L) 8.5 - 10.3 mg/dL [facility] Blood 10/10/2024 8:54 AM [employer] 10/10/2024 12:27 PM [employer] us Marcus Vergara MD LAB BLOOD ORDERABLES Final Resu lt Performing Organization Address [facility] Co de Phone Number [facility] [place] [address] * Transfuse RBC (10/10/2024 8:18 AM C[employer]AR [employer]OLER) Blood us Marcus Vergara MD BLOOD TRANSFUSION ORDERABLES Fi nal Result Performing Organization Address [facility] Co de Phone Number [facility] [place] [address] * Transfuse platelets (10/10/2024 6:16 AM C[employer]AR [employer]ER) us Marcus Vergara MD BLOOD TRANSFUSION ORDERABLES Fi nal Result Performing Organization Address [facility] Co de Phone Number [facility] [place] [address] * Prepare platelets: 1 Units (10/10/2024 3:57 AM [employer]) Product code [id number] Unit Number [id number] [facility] Product Blood Type APOS [facility] Dispense Status PRESUMED TRANSFUSED [facility] Blood Venous blood specimen / Unknown 10/10/2024 3:57 AM [employer] 10/10/2024 3:56 AM [employer]ER Narrative [facility] - 10/10/2024 8:00 PM [employer] Are special requirements needed? (all products are leukoreduced)->Yes Date required:-20240929 Special Req 1:-Irradiated PLT # of Units:-1-Units Reasons:-Stable, non-bleeding, plt < 10 K/cumm} Marcus Vergara MD BLOOD BANK PRODUCT ORDERABLES F inal Result Performing Organization Address [facility] de Phone Number [facility] [place] [employer] [place] [address] * Prepare RBC: 1 Units (10/10/2024 3:57 AM [employer]) Product code [id number] Unit Number [id number] [facility] Disp[facility] Status PRESUMED TRANSFUSED [facility] Blood Venous blood specimen / Unknown 10/10/2024 3:57 AM [employer] 10/10/2024 3:56 AM [employer]ER Narrative [facility] - 10/10/2024 8:00 PM [employer] Are special requirements needed? (All products are leukoreduced and CMV- safe)- >Yes Date required:-20240929 Special Req 1:-Irradiated LRRBC # of [id number] Reasons:-BMT, Hgb <8 g/dL} Marcus Vergara MD BLOOD BANK PRODUCT ORDERABLES F inal Result Performing Organization Address [facility] de Phone Number [facility] [place] [place] [address] * (ABNORMAL) Immature platelet fraction (10/10/2024 12:31 AM C[employer]AR [employer]OLER) Pathologist [facility] IPF 1.2(L) 1.6 - 10.1 % Blood 10/10/2024 12:3 1 AM [employer] 10/10/2024 1:14 AM [employer] us Marcus Vergara MD LAB BLOOD ORDERABLES Final Resu lt Performing Organization Address City/[facility]/ZIP Co de Phone Number DAVID [facility] [place] [address] * eGFR (10/10/2024 12:31 AM C[employer]AR [employer]OL[employer]) [facility] eGFR >90 >=60 mL/min/1. 73 m2 [...] reviewed 2021. Blood 10/10/2024 12:3 1 AM [employer] 10/10/2024 1:09 AM [employer] us Marcus Vergara MD LAB BLOOD ORDERABLES Final Resu lt Performing Organization Address [facility]/ZIP Co de Phone Number [facility] [place] [address] * (ABNORMAL) Manual Differential (10/10/2024 12:31 AM CIGAR [employer]ER) [facility] RBC morphology Normal Platelet estimate Decreased(A ) [facility] Blood 10/10/2024 12:3 1 AM [employer]ER 10/10/2024 1:09 AM [employer] Marcus Vergara MD LAB BLOOD ORDERABLES Final Resu lt Performing Organization Address [facility]/ZIP Co de Phone Number [facility] [place] [address] * (ABNORMAL) CBC without differential (10/10/2024 12:31 AM CIGAR [employer]OLER) [facility] WBC 0.0(C) 3.8 - 9.9 K/cumm Comment:Consistent with prev ious reported value Hgb 7.0(L) 11.9 - 15.5 g/dL [facility] Hct 20.2(L) 35.6 - 45.5 % [facility] Plt 2(C) 150 - 400 K/cumm [facility] Comment:Critical result call ed to and read back by LIV PARISI RN on 10 10 2024 at [address] [place]. MPV 8.8(L) 9.1 - 12.3 fL [facility] RBC 2.23(L) 3.90 - 5.20 M/cumm [facility] MCV 90.6 81.3 - 96.4 fL [facility] MCH 31.4 27.1 - 33.3 pg [facility] MCHC 34.7 32.3 - 35.7 g/dL [facility] RDW CV 15.8(H) 11.1 - 14.9 % [facility] RDW SD 53.0(H) 35.7 - 48.1 fL [facility] NRBC abs 0.00 0.00 - 0.01 K/cumm [facility] Blood 10/10/2024 12:3 1 AM [employer] 10/10/2024 1:09 AM [employer] Marcus Vergara MD LAB BLOOD ORDERABLES Final Resu lt Performing Organization Address [facility]/ZIP Co de Phone Number [facility] [place] [address] * (ABNORMAL) Phosphorus (10/10/2024 12:31 AM CIGAR [employer]ER) [facility] Phosphorus, pl 1.3(L) 2.3 - 4.5 mg/dL Blood 10/10/2024 12:3 1 AM [employer]ER 10/10/2024 1:09 AM [employer] Marcus Vergara MD LAB BLOOD ORDERABLES Final Resu lt Performing Organization Address [facility] [place] [address] * Magnesium (10/10/2024 12:31 AM C[employer]AR [employer]ER) [facility] Magnesium 1.8 1.4 - 2.5 mg/dL Blood 10/10/2024 12:3 1 AM [employer] 10/10/2024 1:09 AM [employer] Marcus Vergara MD LAB BLOOD ORDERABLES Final Resu lt Performing Organization Address [facility] de Phone Number [facility] [place] [address] * (ABNORMAL) Basic metabolic panel (10/10/2024 12:31 AM C[employer]ER) [facility] Sodium 122(L) 135 - 145 mmol/L Potassium, pl 3.1(L) 3.3 - 4.9 mmol/L [facility] Chloride 112(H) 97 - 110 mmol/L [facility] Comment:Repeated and Verifie d CO2 24 22 - 32 mmol/L [facility] Anion gap <1(L) 2 - 15 mmol/L [facility] BUN 6 6 - 25 mg/dL [facility] Creatinine 0.42(L) 0.60 - 1.10 mg/dL [facility] Glucose 107 70 - 199 mg/dL [facility] Comment: Interpretive Data Fasting glucose >/= 126 [...] 2022. Calcium 6.6(L) 8.5 - 10.3 mg/dL [facility] Comment:Reviewed Blood 10/10/2024 12:3 1 AM [employer]ER 10/10/2024 1:09 AM [employer]ER Marcus Vergara MD LAB BLOOD ORDERABLES Final Resu lt Performing Organization Address [facility] de Phone Number [facility] [place] [address] * ECG 12 lead (10/09/2024 5:14 PM [employer]OLER) Ventricular Rate EKG/Min 100 BPM [facility] Atrial Rate 100 BPM [facility] GA-Interval (MSEC) 138 ms [facility] QRS-Interval (MSEC) 92 ms [facility] QT-Interval (MSEC) 362 ms [facility] QTc 466 ms [facility] P [place] 62 degrees [facility] R [place] 92 degrees [facility] T [place] 42 degrees [facility] Diagnosis Normal sinus rhythm Rightward axis Borderline ECG Confirmed by Miguel May MD ([id number]) on 10/15/2024 4:43:04 AM [facility] 10/09/2024 5:14 PM [employer] 10/15/2024 4:43 AM [employer]ER Marcus Vergara MD ECG ORDERABLES Final Result Performing Organization Address [facility] Co de Phone Number [facility] * Sodium, urine, random (10/09/2024 4:44 PM CIGAR [employer]OLER) Sodium, ur 154 mmol/L Comment: Interpretive Data No reference range established. Current interpretive data was last revised 2019. Urine 10/09/2024 4:44 PM [employer]ER 10/09/2024 5:00 PM [employer] us Marcus Vergara MD LAB URINE ORDERABLES Final Resu lt Performing Organization Address [facility] Co de Phone Number [facility] [place] [address] * Osmolality, urine (10/09/2024 4:44 PM [employer]OLER) Osmo, ur 504 mOsm/kg Urine 10/09/2024 4:44 PM [employer]ER 10/09/2024 5:00 PM [employer] us Marcus Vergara MD LAB URINE ORDERABLES Final Resu lt Performing Organization Address [facility] Co de Phone Number [facility] [place] [address] * Transfuse platelets (10/09/2024 6:09 AM CIGAR [employer]OLER) us Marcus Vergara MD BLOOD TRANSFUSION ORDERABLES Fi nal Result Performing Organization Address [facility] de Phone Number [facility] [place] [address] * Prepare platelets: 1 Units (10/09/2024 3:43 AM C[employer]AR [employer]ER) Product code [id number] Unit Number [id number] [facility] Product Blood Type APOS [facility] Dispense Status PRESUMED TRANSFUSED [facility] Blood Venous blood specimen / Unknown 10/09/2024 3:43 AM [employer] 10/09/2024 3:43 AM [employer]ER Narrative [facility] - 10/09/2024 4:00 PM [employer]ER Are special requirements needed? (all products are leukoreduced)->Yes Date required:-20240929 Special Req 1:-Irradiated PLT # of Units:-1-Units Reasons:-Stable, non-bleeding, plt < 10 K/cumm} us Marcus Vergara MD BLOOD BANK PRODUCT ORDERABLES F inal Result Performing Organization Address [facility] Co de Phone Number [facility] [place] [place] [address] * Immature platelet fraction (10/09/2024 12:38 AM [employer]ER) IPF 1.6 1.6 - 10.1 % Blood 10/09/2024 12:3 8 AM [employer] 10/09/2024 12:58 AM [employer] Marcus Vergara MD LAB BLOOD ORDERABLES Final Resu lt Performing Organization Address [facility] de Phone Number [facility] [place] [address] * eGFR (10/09/2024 12:38 AM C[employer]OLER) eGFR >90 >=60 mL/min/1. 73 m2 Comment: [...] reviewed 2021. Blood 10/09/2024 12:3 8 AM [employer]ER 10/09/2024 12:54 AM [employer]OLER Result [facility] Marcus Vergara MD LAB BLOOD ORDERABLES Final Resu lt Performing Organization Address [facility] Co de Phone Number DAVID [facility] [place] [address] * Thyroid Function [place] (10/09/2024 12:38 AM CIGAR HEAD HOLER) Pathologist [facility] TSH 0.74 0.30 - 4.20 mcIUnit/mL Blood 10/09/2024 12:3 8 AM [employer]OLER 10/09/2024 12:54 AM [employer]ER Result [facility] Marcus Vergara MD LAB BLOOD ORDERABLES Final Resu lt Performing Organization Address [facility] de Phone Number [facility] [place] [address] * (ABNORMAL) Manual Differential (10/09/2024 12:38 AM CIGAR HEAD HOLER) Pathologist [facility] Differential Manual Cells Counted 0 [facility] RBC morphology Present(A) [facility] Anisocytosis Slight(A) [facility] Platelet estimate Decreased( A) [facility] Blood 10/09/2024 12:3 8 AM [employer]ER 10/09/2024 12:54 AM C[employer]ER Result [facility] Marcus Vergara MD LAB BLOOD ORDERABLES Edited Res ult - Final Performing Organization Address [facility] Co de Phone Number [facility] [place] [address] * (ABNORMAL) CBC without differential (10/09/2024 12:38 AM C[employer]AR [employer]OLER) WBC 0.0(C) 3.8 - 9.9 K/cumm Comment:Consistent with prev ious reported value Hgb 8.1(L) 11.9 - 15.5 g/dL [facility] Comment:Large delta with no apparant cause, correlate with clinical context and redraw if indicated. Spoke to Halina Gupta RN. 10-09-2024@01:27 Hct 22.9(L) 35.6 - 45.5 % [facility] Plt 4(C) 150 - 400 K/cumm [facility] Comment:Critical result call ed to and read back by HALINA GUPTA on 10 09 2024 at 0127 to Ayush Farfan. MPV 11.3 9.1 - 12.3 fL [facility] RBC 2.57(L) 3.90 - 5.20 M/cumm [facility] MCV 89.1 81.3 - 96.4 fL [facility] MCH 31.5 27.1 - 33.3 pg [facility] MCHC 35.4 32.3 - 35.7 g/dL [facility] RDW CV 15.8(H) 11.1 - 14.9 % [facility] RDW SD 51.6(H) 35.7 - 48.1 fL [facility] NRBC abs 0.00 0.00 - 0.01 K/cumm [facility] Blood 10/09/2024 12:3 8 AM [employer]ER 10/09/2024 12:54 AM [employer]ER Marcus Vergara MD LAB BLOOD ORDERABLES Final Resu lt Performing Organization Address [facility]/ZIP Co de Phone Number [facility] [place] [employer] [place] [address] * (ABNORMAL) Phosphorus (10/09/2024 12:38 AM CIGAR HEAD HOLER) Phosphorus, pl 1.9(L) 2.3 - 4.5 mg/dL Blood 10/09/2024 12:3 8 AM [employer]ER 10/09/2024 12:54 AM [employer]ER Marcus Vergara MD LAB BLOOD ORDERABLES Final Resu lt [facility] [place] [address] * (ABNORMAL) Osmolality, blood (10/09/2024 12:38 AM CIGAR HEAD HOLER) Pathologist [facility] Osmo 264(L) 275 - 300 mOsm/kg Blood 10/09/2024 12:3 8 AM [employer]OLER 10/09/2024 12:54 AM [employer]ER Marcus Vergara MD LAB BLOOD ORDERABLES Final Resu lt Performing Organization Address [facility] de Phone Number [facility] [place] [address] * Magnesium (10/09/2024 12:38 AM CIGAR HEAD HOLER) [facility] Magnesium 1.8 1.4 - 2.5 mg/dL Blood 10/09/2024 12:3 8 AM [employer]OLER 10/09/2024 12:54 AM [employer]ER Marcus Vergara MD LAB BLOOD ORDERABLES Final Resu lt Performing Organization Address [facility] de Phone Number [facility] [place] [address] * (ABNORMAL) Basic metabolic panel (10/09/2024 12:38 AM CIGAR HEAD HOLER) [facility] Sodium 128(L) 135 - 145 mmol/L Potassium, pl 3.7 3.3 - 4.9 mmol/L [facility] Chloride 95(L) 97 - 110 mmol/L [facility] CO2 27 22 - 32 mmol/L [facility] Anion gap 6 2 - 15 mmol/L [facility] BUN 10 6 - 25 mg/dL [facility] Creatinine 0.51(L) 0.60 - 1.10 mg/dL [facility] Glucose 146 70 - 199 mg/dL [facility] Comment: Interpretive Data Fasting glucose >/= 126 [...] 2022. Calcium 7.0(L) 8.5 - 10.3 mg/dL [facility] Blood 10/09/2024 12:3 8 AM C[employer] HEAD [employer]OLER 10/09/2024 12:54 AM CIGAR HEAD HOLER us Marcus Vergara MD LAB BLOOD ORDERABLES Final Resu lt Performing Organization Address [facility] de Phone Number [facility] Department [place] [employer] [place] [address] * Collection Task for HLA Typing 1 (10/08/2024 2:20 PM CIGAR [employer] HOLER) HLA Class I DNA (ABC) Recipient Received Blood 10/08/2024 2:20 PM [employer]AR [employer]ER 10/09/2024 11:35 AM C[employer]AR HEAD [employer]OLER us Marcus Vergara MD LAB BLOOD ORDERABLES Final Resu lt Performing Organization Address [facility] de Phone Number [facility] Department [place] [employer] [place] [address] * Collection Task for HLA Antibody Screen (10/08/2024 2:20 PM CIGAR HEAD HOLER) HLA Antibody Screen By Single Antigen Received Blood 10/08/2024 2:20 PM [employer]AR [employer]OLER 10/09/2024 11:35 AM C[employer]AR HEAD [employer]OLER us Marcus Vergara MD LAB BLOOD ORDERABLES Final Resu lt Performing Organization Address [facility] Co de Phone Number [facility] [place] [place] [address] * HLA Antibody Screen - SAB (Class I and Class II) (10/08/2024 2:20 PM CIGAR HEAD [employer]OLER) Class I Treatment EDTA [facility] Class I [...] CPRA 0 [facility] Blood 10/08/2024 2:20 PM CIGAR [employer]OLER 10/28/2024 11:30 AM CIGAR HEAD [employer]OLER Narrative [facility] - 10/28/2024 11:30 AM CIGAR HEAD HOLER Single-antigen HLA antibody screen is performed on serum samples using a method developed and validated by the [facility] HLA laboratory based on an FDA-approved IVD kit (LABScreen Single-Antigen, [employer], [place], [place]). All patient serum samples are pretreated with EDTA before the screen to prevent complement interference. Additional serum treatments, such as adsorption and DTT treatment, may be performed as indicated. Interpretive comments: Low risk: MFI [id number]. Moderate risk: MFI [id number]. Increased risk: MFI >/= 5000. The presence [...] antigens to avoid. Testing performed at the [facility] HLA Laboratory, [facility] [address], [address]th floor, [facility], [place], [address]. [facility] # [id number]. Nicole Riley, Ph.D., Auto Radiator Mechanic, HLA Laboratory Franklin Hull M.D., Ph.D., Natural [employer] Plant Supervisor, HLA Laboratory Gladis Zuluaga, Ph.D., CLIA [employer] Plant Supervisor, [facility] Clinical Laboratories Current methodology and interpretive comments last revised on 09/27/2022. us Marcus Vergara MD LAB BLOOD ORDERABLES Final Resu lt Performing Organization Address [facility]/ZIP Co de Phone Number [facility] * Transfuse platelets (10/08/2024 6:23 AM CIGAR HEAD HOLER) us Marcus Vergara MD BLOOD TRANSFUSION ORDERABLES Fi nal Result Performing Organization Address [facility]/ZIP Co de Phone Number [facility] [place] [address] * Prepare platelets: 1 Units (10/08/2024 4:08 AM CIGAR HEAD HOLER) Product code [id number] Unit Number [id number] [facility] Product Blood Type APOS [facility] Dispense Status PRESUMED TRANSFUSED [facility] Blood Venous blood specimen / Unknown 10/08/2024 4:08 AM C[employer]AR [employer]OLER 10/08/2024 4:07 AM CIGAR HEAD HOLER Narrative [facility] - 10/08/2024 8:01 PM C[employer]AR HEAD [employer]OLER Are special requirements needed? (all products are leukoreduced)->Yes Date required:-20240929 Special Req 1:-Irradiated PLT # of Units:-1-Units Reasons:-Stable, non-bleeding, plt < 10 K/cumm} us Marcus Vergara MD BLOOD BANK PRODUCT ORDERABLES F inal Result Performing Organization Address [facility] Co de Phone Number [facility] [place] [address] * (ABNORMAL) Immature platelet fraction (10/08/2024 12:44 AM CIGAR HEAD HOLER) IPF 1.2(L) 1.6 - 10.1 % Blood 10/08/2024 12:4 4 AM [employer]OLER 10/08/2024 1:10 AM CIGAR HEAD [employer]OLER us Marcus Vergara MD LAB BLOOD ORDERABLES Final Resu lt Performing Organization Address [facility] de Phone Number DAVID [facility] [place] [address] * eGFR (10/08/2024 12:44 AM CIGAR HEAD HOLER) eGFR >90 >=60 mL/min/1. 73 m2 Comment: [...] reviewed 2021. Blood 10/08/2024 12:4 4 AM C[employer]AR HEAD [employer]OLER 10/08/2024 1:05 AM CIGAR HEAD HOLER us Marcus Vergara MD LAB BLOOD ORDERABLES Final Resu lt Performing Organization Address [facility] Co de Phone Number [facility] [place] [address] * (ABNORMAL) Manual Differential (10/08/2024 12:44 AM CIGAR HEAD HOLER) [facility] Differential Manual Cells Counted 2 [facility] Neutrophil pct 0.0 % [facility] Comment: Interpretive Data Percent cell count reference ranges are not reported, since discordance with absolute values may lead to misinterpretation of CBC data. Current Interpretive Data was last revised on 2017. Lymphocyte pct 100.0 % [facility] Comment: Interpretive Data Percent cell count reference ranges are not reported, since discordance with absolute values may lead to misinterpretation of CBC data. Current Interpretive Data was last revised on 2017. RBC morphology Present(A) [facility] Anisocytosis Moderate(A ) [facility] Macrocytes 8-15/HPF(A ) [facility] Platelet estimate Decreased( A) [facility] Blood 10/08/2024 12:4 4 AM C[employer] HEAD [employer]OLER 10/08/2024 1:05 AM CIGAR HEAD [employer]OLER us Marcus Vergara MD LAB BLOOD ORDERABLES Edited Res ult - Final Performing Organization Address [facility] Co de Phone Number [facility] [place] [address] * (ABNORMAL) CBC without differential (10/08/2024 12:44 AM CIGAR HEAD HOLER) [facility] WBC 0.0(C) 3.8 - 9.9 K/cumm Comment:Consistent with prev ious reported value Hgb 11.4(L) 11.9 - 15.5 g/dL [facility] Hct 32.2(L) 35.6 - 45.5 % [facility] Plt 6(C) 150 - 400 K/cumm [facility] Comment:Critical result call ed to and read back by YOUSIF BUSCH RN on 10 08 2024 at 0127 to Noe Gloria. MPV 9.5 9.1 - 12.3 fL [facility] RBC 3.62(L) 3.90 - 5.20 M/cumm [facility] MCV 89.0 81.3 - 96.4 fL [facility] MCH 31.5 27.1 - 33.3 pg [facility] MCHC 35.4 32.3 - 35.7 g/dL [facility] RDW CV 16.3(H) 11.1 - 14.9 % [facility] RDW SD 53.2(H) 35.7 - 48.1 fL [facility] NRBC abs 0.00 0.00 - 0.01 K/cumm [facility] Blood 10/08/2024 12:4 4 AM C[employer]AR HEAD [employer]OLER 10/08/2024 1:05 AM [employer]ER Marcus Vergara MD LAB BLOOD ORDERABLES Final Resu lt Performing Organization Address [facility]/ZIP Co de Phone Number [facility] [place] [address] * Type and screen (10/08/2024 12:44 AM CIGAR HEAD HOLER) Bing, indirect Negative ABO Rh A Positive [facility] Blood 10/08/2024 12:4 4 AM [employer]AR HEAD [employer]OLER 10/08/2024 1:22 AM CIGAR HEAD HOLER Narrative [facility] - 10/08/2024 4:30 AM CIGAR HEAD HOLER Has the patient had Daratumumab or Isatuximab in the past 6 months?->Unknown Marcus Vergara MD LAB BLOOD BANK TEST ORDERABLES Final Result Performing Organization Address City/[facility]/ZIP Co de Phone Number [facility] [place] [place] [address] * (ABNORMAL) Uric acid (10/08/2024 12:44 AM CIGAR HEAD HOLER) Uric acid 1.1(L) 2.5 - 7.0 mg/dL Blood 10/08/2024 12:4 4 AM CIGAR HEAD HOLER 10/08/2024 1:05 AM CIGAR HEAD HOLER Narrative [facility] - 10/08/2024 1:34 AM CIGAR HEAD HOLER Saturday and only. Morning draw. . us Marcus Vergara MD LAB BLOOD ORDERABLES Final Resu lt Performing Organization Address [facility] de Phone Number [facility] [place] [place] [address] * (ABNORMAL) Phosphorus (10/08/2024 12:44 AM CIGAR HEAD HOLER) Phosphorus, pl 1.6(L) 2.3 - 4.5 mg/dL Blood 10/08/2024 12:4 4 AM CIGAR HEAD [employer]OLER 10/08/2024 1:05 AM CIGAR HEAD [employer]ER us Marcus Vergara MD LAB BLOOD ORDERABLES Final Resu lt Performing Organization Address [facility] de Phone Number [facility] [place] [address] * Magnesium (10/08/2024 12:44 AM CIGAR HEAD HOLER) Magnesium 1.9 1.4 - 2.5 mg/dL Blood 10/08/2024 12:4 4 AM CIGAR HEAD [employer]OLER 10/08/2024 1:05 AM CIGAR HEAD [employer]ER us Marcus Vergara MD LAB BLOOD ORDERABLES Final Resu lt Performing Organization Address [facility] de Phone Number [facility] [place] [address] * (ABNORMAL) Lactate dehydrogenase (LD) (10/08/2024 12:44 AM CIGAR HEAD HOLER) Lactate dehydrogenase (LDH) 321(H) 100 - 250 Units/L Blood 10/08/2024 12:4 4 AM CIGAR HEAD HOLER 10/08/2024 1:05 AM CIGAR HEAD HOLER Narrative [facility] - 10/08/2024 1:34 AM CIGAR HEAD HOLER Saturday and only. Morning draw. us Marcus Vergara MD LAB BLOOD ORDERABLES Final Resu lt [facility] [place] [address] * (ABNORMAL) Comprehensive metabolic panel (10/08/2024 12:44 AM CIGAR HEAD HOLER) Sodium 131(L) 135 - 145 mmol/L Potassium, pl 3.6 3.3 - 4.9 mmol/L [facility] Chloride 99 97 - 110 mmol/L [facility] CO2 25 22 - 32 mmol/L [facility] Anion gap 7 2 - 15 mmol/L [facility] BUN 9 6 - 25 mg/dL [facility] Creatinine 0.53(L) 0.60 - 1.10 mg/dL [facility] Glucose 102 70 - 199 mg/dL [facility] Comment: Interpretive Data Fasting glucose >/= 126 [...] 2022. Calcium 7.2(L) 8.5 - 10.3 mg/dL [facility] Bilirubin, total 0.9 0.1 - 1.2 mg/dL [facility] Protein, pl 5.9(L) 6.5 - 8.5 g/dL [facility] Albumin 2.8(L) 3.5 - 5.0 g/dL [facility] Alk phos 72 40 - 130 Units/L [facility] ALT 38 7 - 45 Units/L [facility] AST 42 10 - 45 Units/L [facility] Blood 10/08/2024 12:4 4 AM CIGAR HEAD [employer]OLER 10/08/2024 1:05 AM CIGAR HEAD HOLER Narrative [facility] - 10/08/2024 1:34 AM CIGAR HEAD HOLER Saturday and only. Morning draw. Marcus Vergara MD LAB BLOOD ORDERABLES Final Resu lt Performing Organization Address City/[facility]/ZIP Co de Phone Number [facility] [employer] [place], [place] [id number] * Transfuse platelets (10/07/2024 6:02 AM CIGAR HEAD HOLER) Marcus Vergara MD BLOOD TRANSFUSION ORDERABLES Fi nal Result Performing Organization Address [facility] Co de Phone Number [facility] [place] [place] [address] * Prepare platelets: 1 Units (10/07/2024 3:52 AM CIGAR HEAD HOLER) Pathologist [facility] Product code [id number] Unit Number [id number] [facility] Product Blood Type ANEG [facility] Dispense Status PRESUMED TRANSFUSED [facility] Blood Venous blood specimen / Unknown 10/07/2024 3:52 AM CIGAR HEAD [employer]OLER 10/07/2024 3:51 AM CIGAR HEAD HOLER Narrative [facility] - 10/07/2024 8:00 PM CIGAR HEAD HOLER Are special requirements needed? (all products are leukoreduced)->Yes Date required:-20240929 Special Req 1:-Irradiated PLT # of Units:-1-Units Reasons:-Stable, non-bleeding, plt < 10 K/cumm} Marcus Vergara MD BLOOD BANK PRODUCT ORDERABLES F inal Result Performing Organization Address [facility] Co de Phone Number [facility] [place] [place] [address] * Immature platelet fraction (10/07/2024 1:20 AM CIGAR HEAD HOLER) IPF 6.7 1.6 - 10.1 % Blood 10/07/2024 1:20 AM CIGAR HEAD [employer]OLER 10/07/2024 1:44 AM CIGAR HEAD [employer]ER Marcus Vergara MD LAB BLOOD ORDERABLES Final Resu lt Performing Organization Address [facility] Co de Phone Number [facility] [place] [address] * eGFR (10/07/2024 1:20 AM CIGAR HEAD HOLER) eGFR >90 >=60 mL/min/1. 73 m2 Comment: [...] last reviewed 2021. Blood 10/07/2024 1:20 AM CIGAR HEAD [employer]OLER 10/07/2024 1:38 AM CIGAR HEAD [employer]ER Marcus Vergara MD LAB BLOOD ORDERABLES Final Resu lt Performing Organization Address [facility]/ZIP Co de Phone Number [facility] [place] [address] * (ABNORMAL) Manual Differential (10/07/2024 1:20 AM CIGAR HEAD HOLER) Pathologist [facility] Differential Manual Cells Counted 8 [facility] Neutrophil pct 0.0 % [facility] Comment: Interpretive Data Percent cell count reference ranges are not reported, since discordance with absolute values may lead to misinterpretation of CBC data. Current Interpretive Data was last revised on 2017. Lymphocyte pct 100.0 % [facility] Comment: Interpretive Data Percent cell count reference ranges are not reported, since discordance with absolute values may lead to misinterpretation of CBC data. Current Interpretive Data was last revised on 2017. RBC morphology Present(A) [facility] Anisocytosis Slight(A) [facility] Macrocytes 3-7/HPF(A) [facility] Platelet estimate Decreased( A) [facility] Blood 10/07/2024 1:20 AM CIGAR HEAD HOLER 10/07/2024 1:38 AM CIGAR HEAD [employer]ER us Marcus Vergara MD LAB BLOOD ORDERABLES Edited Res ult - Final [facility] [place] [address] * (ABNORMAL) CBC without differential (10/07/2024 1:20 AM CIGAR HEAD HOLER) WBC 0.0(C) 3.8 - 9.9 K/cumm Comment:Consistent with prev ious reported value Hgb 8.6(L) 11.9 - 15.5 g/dL [facility] Hct 24.8(L) 35.6 - 45.5 % [facility] Plt 3(C) 150 - 400 K/cumm [facility] Comment: Platelet count confirmed by additional testing. Critical platelet count threshold determined by patient location: Outpatient:<50 K-cumm , Inpatient:<20 K-cumm , BMT service:<10 K-cumm nam smith rn. Critical result called to and read back by NAM SMITH RN on 10 07 2024 at 0202 to Kristin Matute. MPV Not Measured 9.1 - 12.3 fL [facility] RBC 2.75(L) 3.90 - 5.20 M/cumm [facility] MCV 90.2 81.3 - 96.4 fL [facility] MCH 31.3 27.1 - 33.3 pg [facility] MCHC 34.7 32.3 - 35.7 g/dL [facility] RDW CV 17.0(H) 11.1 - 14.9 % [facility] RDW SD 55.8(H) 35.7 - 48.1 fL [facility] NRBC abs 0.00 0.00 - 0.01 K/cumm [facility] Blood 10/07/2024 1:20 AM CIGAR HEAD HOLER 10/07/2024 1:38 AM CIGAR HEAD HOLER us Marcus Vergara MD LAB BLOOD ORDERABLES Final Resu lt Performing Organization Address City/[facility] Co de Phone Number [facility] [employer] [place] [address] * Phosphorus (10/07/2024 1:20 AM CIGAR HEAD HOLER) Phosphorus, pl 2.3 2.3 - 4.5 mg/dL Blood 10/07/2024 1:20 AM CIGAR HEAD HOLER 10/07/2024 1:38 AM CIGAR HEAD HOLER us Marcus Vergara MD LAB BLOOD ORDERABLES Final Resu lt Performing Organization Address [facility] Co de Phone Number [facility] [place] [employer] [place] [address] * Magnesium (10/07/2024 1:20 AM CIGAR HEAD HOLER) Magnesium 1.8 1.4 - 2.5 mg/dL Blood 10/07/2024 1:20 AM CIGAR HEAD HOLER 10/07/2024 1:38 AM CIGAR HEAD HOLER Result [facility] us Marcus Vergara MD LAB BLOOD ORDERABLES Final Resu lt Performing Organization Address [facility] Co de Phone Number [facility] [employer] [place] [address] * (ABNORMAL) Basic metabolic panel (10/07/2024 1:20 AM CIGAR HEAD HOLER) Sodium 132(L) 135 - 145 mmol/L Potassium, pl 3.7 3.3 - 4.9 mmol/L [facility] Chloride 101 97 - 110 mmol/L [facility] CO2 25 22 - 32 mmol/L [facility] Anion gap 6 2 - 15 mmol/L [facility] BUN 12 6 - 25 mg/dL [facility] Creatinine 0.51(L) 0.60 - 1.10 mg/dL [facility] Glucose 139 70 - 199 mg/dL [facility] Comment: Interpretive Data Fasting glucose >/= 126 [...] 2022. Calcium 7.0(L) 8.5 - 10.3 mg/dL [facility] Blood 10/07/2024 1:20 AM CIGAR HEAD HOLER 10/07/2024 1:38 AM CIGAR HEAD [employer]OLER Marcus Vergara MD LAB BLOOD ORDERABLES Final Resu lt Performing Organization Address City/[facility]/ZIP Co de Phone Number [facility] Department [place] [employer] [place] [address] * Transfuse platelets (10/06/2024 3:55 PM CIGAR HEAD HOLER) us Marcus Vergara MD BLOOD TRANSFUSION ORDERABLES Fi nal Result Performing Organization Address City/[facility]/ZIP Co de Phone Number [facility] Department [place] [employer] [place] [address] * XR Abdomen Ap 1 Vw (10/06/2024 3:44 PM CIGAR HEAD HOLER) Anatomical Region Laterality Modality Body, Abdomen N/A Computed Radiogr aphy 10/06/2024 4:12 PM CIGAR HEAD [employer]ER Impressions 10/06/2024 4:26 PM CIGAR HEAD HOLER The bowel gas pattern is within normal [...] Lee Mathis M.D. Narrative 10/06/2024 4:26 PM CIGAR HEAD HOLER EXAMINATION: Abdomen, one view. HISTORY: Abdominal pain. [...] it. Electronically signed by: Lee Mathis M.D. us Marcus Vergara MD IMG XR PROCEDURES Final Result * C. difficile testing Stool (10/06/2024 3:22 PM CIGAR HEAD HOLER) [facility] Result Negative Negative Toxin Result Negative Negative [facility] C. diff result Negative, free toxin Negative, free toxin [facility] C. diff interp Negative for toxigenic Clostridioides (Clostridium) difficile. Analysis was performed using a glutamate dehydrogenase antigen detection assay combined with a C. difficile toxin detection assay. [facility] Stool 10/06/2024 3:22 PM CIGAR HEAD HOLER 10/06/2024 5:06 PM CIGAR HEAD HOLER us Marcus Vergara MD LAB MICROBIOLOGY - [facility] JUAN GONZALEZ Final Result [facility] [place] [address] * Norovirus PCR Stool (10/06/2024 3:22 PM CIGAR HEAD HOLER) Norovirus GI RNA Not Detected Not Detected [facility] Norovirus GII RNA Not Detected Not Detected [facility] Comment: Interpretive data: Testing performed at the [facility] using the [employer] Xpert Norovirus Assay. This assay uses nucleic [...] revised on 2024. Stool 10/06/2024 3:22 PM CIGAR HEAD HOLER 10/06/2024 5:06 PM CIGAR HEAD HOLER us Marcus Vergara MD LAB MICROBIOLOGY - [facility] Final Result [facility] [place] [address] [facility] * Infection Prevention VRE Culture Stool (10/06/2024 3:21 PM CIGAR HEAD HOLER) Report Final Report: Negative Stool 10/06/2024 3:21 PM CIGAR HEAD HOLER 10/06/2024 7:15 PM CIGAR HEAD HOLER Narrative [facility] - 10/09/2024 7:12 AM CIGAR HEAD HOLER Surveillance culture for Infection Prevention purposes only; results indicate colonization, not infection requiring treatment. Testing performed by [facility] ([phone]). Marcus Vergara MD LAB MICROBIOLOGY - [facility] Final Result Performing Organization Address [facility] [place] [address] * Transfuse RBC (10/06/2024 9:03 AM CIGAR HEAD HOLER) Blood Marcus Vergara MD BLOOD TRANSFUSION ORDERABLES Fi nal Result Performing Organization Address [facility] Co de Phone Number [facility] [place] [address] * Prepare platelets: 1 Units (10/06/2024 4:35 AM CIGAR HEAD HOLER) Product code [id number] Unit Number [id number] [facility] Product Blood Type APOS [facility] Dispense Status PRESUMED TRANSFUSED [facility] Blood Venous blood specimen / Unknown 10/06/2024 4:35 AM CIGAR HEAD HOLER 10/06/2024 4:35 AM CIGAR HEAD HOLER Narrative [facility] - 10/07/2024 6:00 AM CIGAR HEAD HOLER Are special requirements needed? (all products are leukoreduced)->Yes Date required:-20240929 Special Req 1:-Irradiated PLT # of Units:-1-Units Reasons:-Stable, non-bleeding, plt < 10 K/cumm} Marcus Vergara MD BLOOD BANK PRODUCT ORDERABLES F inal Result Performing Organization Address [facility] Co de Phone Number [facility] [place] [address] * Prepare RBC: 1 Units (10/06/2024 4:35 AM CIGAR HEAD HOLER) Product code [id number] Unit Number [id number] [facility] Product Blood Type APOS [facility] Dispense Status PRESUMED TRANSFUSED [facility] Blood Venous blood specimen / Unknown 10/06/2024 4:35 AM CIGAR HEAD HOLER 10/06/2024 4:35 AM CIGAR HEAD HOLER Narrative [facility] - 10/06/2024 8:00 PM CIGAR HEAD HOLER Are special requirements needed? (All products are leukoreduced and CMV- safe)- >Yes Date required:-20240929 Special Req 1:-Irradiated LRRBC # of [id number] Reasons:-BMT, Hgb <8 g/dL} Marcus Vergara MD BLOOD BANK PRODUCT ORDERABLES F inal Result Performing Organization Address [facility] Co de Phone Number [facility] [place] [address] * Immature platelet fraction (10/06/2024 1:56 AM CIGAR HEAD HOLER) Pathologist [facility] IPF 8.9 1.6 - 10.1 % Blood 10/06/2024 1:56 AM CIGAR HEAD HOLER 10/06/2024 2:28 AM CIGAR HEAD HOLER Marcus Vergara MD LAB BLOOD ORDERABLES Final Resu lt Performing Organization Address [facility] de Phone Number [facility] [place] [address] * eGFR (10/06/2024 1:56 AM CIGAR HEAD HOLER) eGFR >90 >=60 mL/min/1. 73 m2 Comment: [...] last reviewed 2021. Blood 10/06/2024 1:56 AM CIGAR HEAD HOLER 10/06/2024 2:06 AM CIGAR HEAD HOLER us Marcus Vergara MD LAB BLOOD ORDERABLES Final Resu lt [facility] [place] [address] * (ABNORMAL) Manual Differential (10/06/2024 1:56 AM CIGAR HEAD HOLER) Differential Manual Cells Counted 14 [facility] Neutrophil abs 0.0(C) 1.5 - 6.5 K/cumm [facility] Comment:BMT patient, result not critical Lymphocyte abs 0.1(L) 0.8 - 3.3 K/cumm [facility] Monocyte abs 0.0(L) 0.2 - 0.8 K/cumm [facility] Neutrophil pct 28.6 % [facility] Comment: Interpretive Data Percent cell count reference ranges are not reported, since discordance with absolute values may lead to misinterpretation of CBC data. Current Interpretive Data was last revised on 2017. Lymphocyte pct 64.3 % [facility] Comment: Interpretive Data Percent cell count reference ranges are not reported, since discordance with absolute values may lead to misinterpretation of CBC data. Current Interpretive Data was last revised on 2017. Monocyte pct 7.1 % [facility] Comment: Interpretive Data Percent cell count reference ranges are not reported, since discordance with absolute values may lead to misinterpretation of CBC data. Current Interpretive Data was last revised on 2017. RBC morphology Present(A) [facility] Anisocytosis Moderate(A ) [facility] Macrocytes 8-15/HPF(A ) [facility] Platelet estimate Decreased( A) [facility] Blood 10/06/2024 1:56 AM CIGAR HEAD HOLER 10/06/2024 2:24 AM CIGAR HEAD HOLER Marcus Vergara MD LAB BLOOD ORDERABLES Edited Res ult - Final [facility] [place] [address] * (ABNORMAL) CBC without differential (10/06/2024 1:56 AM CIGAR HEAD HOLER) [facility] WBC 0.1(C) 3.8 - 9.9 K/cumm Comment:Consistent with prev ious reported value Hgb 6.8(L) 11.9 - 15.5 g/dL [facility] Hct 19.6(L) 35.6 - 45.5 % [facility] Plt 5(C) 150 - 400 K/cumm [facility] Comment:Critical result call ed to and read back by YOUSIF BUSCH RN on 10 06 2024 at 0317 to Noe Gloria. MPV 9.9 9.1 - 12.3 fL [facility] RBC 2.10(L) 3.90 - 5.20 M/cumm [facility] MCV 93.3 81.3 - 96.4 fL [facility] MCH 32.4 27.1 - 33.3 pg [facility] MCHC 34.7 32.3 - 35.7 g/dL [facility] RDW CV 16.3(H) 11.1 - 14.9 % [facility] RDW SD 56.0(H) 35.7 - 48.1 fL [facility] NRBC abs 0.00 0.00 - 0.01 K/cumm [facility] Blood 10/06/2024 1:56 AM CIGAR HEAD HOLER 10/06/2024 2:24 AM CIGAR HEAD HOLER Marcus Vergara MD LAB BLOOD ORDERABLES Final Resu lt [facility] [place] [address] * Phosphorus (10/06/2024 1:56 AM CIGAR HEAD HOLER) [facility] Phosphorus, pl 3.0 2.3 - 4.5 mg/dL Blood 10/06/2024 1:56 AM CIGAR HEAD HOLER 10/06/2024 2:06 AM CIGAR HEAD HOLER us Marcus Vergara MD LAB BLOOD ORDERABLES Final Resu lt Performing Organization Address [facility] Co de Phone Number [facility] [place] [place] [address] * Magnesium (10/06/2024 1:56 AM CIGAR HEAD HOLER) [facility] Magnesium 1.8 1.4 - 2.5 mg/dL Blood 10/06/2024 1:56 AM CIGAR HEAD HOLER 10/06/2024 2:06 AM CIGAR HEAD HOLER Result [facility] Marcus Vergara MD LAB BLOOD ORDERABLES Final Resu lt Performing Organization Address [facility] de Phone Number [facility] [place] [address] * (ABNORMAL) Basic metabolic panel (10/06/2024 1:56 AM CIGAR HEAD HOLER) [facility] Sodium 133(L) 135 - 145 mmol/L Potassium, pl 4.1 3.3 - 4.9 mmol/L [facility] Chloride 99 97 - 110 mmol/L [facility] CO2 28 22 - 32 mmol/L [facility] Anion gap 6 2 - 15 mmol/L [facility] BUN 16 6 - 25 mg/dL [facility] Creatinine 0.62 0.60 - 1.10 mg/dL [facility] Glucose 140 70 - 199 mg/dL [facility] Comment: Interpretive Data Fasting glucose >/= 126 [...] 2022. Calcium 7.3(L) 8.5 - 10.3 mg/dL [facility] Blood 10/06/2024 1:56 AM CIGAR HEAD HOLER 10/06/2024 2:06 AM CIGAR HEAD HOLER us Marcus Vergara MD LAB BLOOD ORDERABLES Final Resu lt Performing Organization Address City/[facility]/ZIP Co de Phone Number [facility] [place] [address] * Transfuse platelets (10/05/2024 3:52 PM CIGAR HEAD HOLER) us Marcus Vergara MD BLOOD TRANSFUSION ORDERABLES Fi nal Result Performing Organization Address [facility] de Phone Number [facility] [place] [address] * eGFR (10/05/2024 11:03 AM CIGAR HEAD HOLER) eGFR >90 >=60 mL/min/1. 73 m2 Comment: [...] reviewed 2021. Blood 10/05/2024 11:0 3 AM CIGAR HEAD HOLER 10/05/2024 11:27 AM CIGAR HEAD HOLER us Marcus Vergara MD LAB BLOOD ORDERABLES Final Resu lt Performing Organization Address [facility] de Phone Number [facility] [place] [address] * (ABNORMAL) Uric acid (10/05/2024 11:03 AM CIGAR HEAD HOLER) Uric acid 1.8(L) 2.5 - 7.0 mg/dL Blood 10/05/2024 11:0 3 AM CIGAR HEAD HOLER 10/05/2024 11:27 AM CIGAR HEAD HOLER us Marcus Vergara MD LAB BLOOD ORDERABLES Final Resu lt Performing Organization Address [facility] Phone Number [facility] [place] [address] * Phosphorus (10/05/2024 11:03 AM CIGAR HEAD HOLER) Phosphorus, pl 3.5 2.3 - 4.5 mg/dL Blood 10/05/2024 11:0 3 AM CIGAR HEAD HOLER 10/05/2024 11:27 AM CIGAR HEAD HOLER Result Roseanna Vergara MD LAB BLOOD ORDERABLES Final Resu lt Performing Organization Address [facility] de Phone Number [facility] [place] [address] * (ABNORMAL) Lactate dehydrogenase (LD) (10/05/2024 11:03 AM CIGAR HEAD HOLER) Lactate dehydrogenase (LDH) 285(H) 100 - 250 Units/L Blood 10/05/2024 11:0 3 AM CIGAR HEAD HOLER 10/05/2024 11:27 AM CIGAR HEAD HOLER us Marcus Vergara MD LAB BLOOD ORDERABLES Final Resu lt Performing Organization Address [facility]/ZIP Co de Phone Number [facility] [place] [address] * (ABNORMAL) Basic metabolic panel (10/05/2024 11:03 AM CIGAR HEAD HOLER) Sodium 137 135 - 145 mmol/L Potassium, pl 3.6 3.3 - 4.9 mmol/L [facility] Chloride 103 97 - 110 mmol/L [facility] CO2 24 22 - 32 mmol/L [facility] Anion gap 10 2 - 15 mmol/L [facility] BUN 20 6 - 25 mg/dL [facility] Creatinine 0.68 0.60 - 1.10 mg/dL [facility] Glucose 137 70 - 199 mg/dL [facility] Comment: Interpretive Data Fasting glucose >/= 126 [...] 2022. Calcium 7.3(L) 8.5 - 10.3 mg/dL [facility] Blood 10/05/2024 11:0 3 AM CIGAR HEAD HOLER 10/05/2024 11:27 AM CIGAR HEAD HOLER us Marcus Vergara MD LAB BLOOD ORDERABLES Final Resu lt [facility] [place] [address] * Transfuse RBC (10/05/2024 8:16 AM CIGAR HEAD HOLER) Blood us Marcus Vergara MD BLOOD TRANSFUSION ORDERABLES Fi nal Result [facility] [place] [address] * Prepare platelets: 1 Units (10/05/2024 5:30 AM CIGAR HEAD HOLER) Product code [id number] Unit Number [id number] [facility] Product Blood Type APOS [facility] [facility] Dispense Status PRESUMED TRANSFUSED [facility] Blood Venous blood specimen / Unknown 10/05/2024 5:30 AM CIGAR HEAD HOLER 10/05/2024 5:30 AM CIGAR HEAD HOLER Narrative [facility] - 10/06/2024 12:55 AM CIGAR HEAD HOLER Are special requirements needed? (all products are leukoreduced)->Yes Date required:-20240929 Special Req 1:-Irradiated PLT # of Units:-1-Units Reasons:-Stable, non-bleeding, plt < 10 K/cumm} Marcus Vergara MD BLOOD BANK PRODUCT ORDERABLES F inal Result Performing Organization Address [facility] Co de Phone Number [facility] [place] [address] * Prepare RBC: 1 Units (10/05/2024 5:30 AM CIGAR HEAD HOLER) Product code [id number] Unit Number [id number] [facility] Product Blood Type ANEG [facility] Dispense Status PRESUMED TRANSFUSED [facility] Blood Venous blood specimen / Unknown 10/05/2024 5:30 AM CIGAR HEAD HOLER 10/05/2024 5:30 AM CIGAR HEAD HOLER [facility] 10/05/2024 8:00 PM CIGAR HEAD HOLER Are special requirements needed? (All products are leukoreduced and CMV- safe)- >Yes Date required:-20240929 Special Req 1:-Irradiated LRRBC # of [id number] Reasons:-BMT, Hgb <8 g/dL} Marcus Vergara MD BLOOD BANK PRODUCT ORDERABLES F inal Result Performing Organization Address [facility] Co de Phone Number [facility] [place] [address] * (ABNORMAL) Immature platelet fraction (10/05/2024 3:42 AM CIGAR HEAD HOLER) IPF 11.9(H) 1.6 - 10.1 % Blood 10/05/2024 3:42 AM CIGAR HEAD HOLER 10/05/2024 4:31 AM CIGAR HEAD HOLER us Marcus Vergara MD LAB BLOOD ORDERABLES Final Resu lt [facility] [place] [address] * eGFR (10/05/2024 3:42 AM CIGAR HEAD HOLER) Pathologist [facility] eGFR >90 >=60 mL/min/1. 73 m2 Comment: [...] last reviewed 2021. Blood 10/05/2024 3:42 AM CIGAR HEAD HOLER 10/05/2024 4:28 AM CIGAR HEAD HOLER us Marcus Vergara MD LAB BLOOD ORDERABLES Final Resu lt DAVID GARCÍA [facility] [place] [address] * (ABNORMAL) Manual Differential (10/05/2024 3:42 AM CIGAR HEAD HOLER) Pathologist [facility] Differential Manual Cells Counted 75 DAVID GARCÍA Neutrophil abs 0.2(C) 1.5 - 6.5 K/cumm [facility] Comment:BMT patient, result not critical Imm gran abs 0.0 0.0 - 0.1 K/cumm [facility] Lymphocyte abs 0.1(L) 0.8 - 3.3 K/cumm [facility] Monocyte abs 0.0(L) 0.2 - 0.8 K/cumm [facility] Neutrophil pct 58.6 % [facility] Comment: Interpretive Data Percent cell count reference ranges are not reported, since discordance with absolute values may lead to misinterpretation of CBC data. Current Interpretive Data was last revised on 2017. Lymphocyte pct 34.7 % [facility] Comment: Interpretive Data Percent cell count reference ranges are not reported, since discordance with absolute values may lead to misinterpretation of CBC data. Current Interpretive Data was last revised on 2017. Monocyte pct 6.7 % [facility] Comment: Interpretive Data Percent cell count reference ranges are not reported, since discordance with absolute values may lead to misinterpretation of CBC data. Current Interpretive Data was last revised on 2017. RBC morphology Present(A) [facility] Anisocytosis Marked(A) [facility] Macrocytes > 15/HPF(A) [facility] Platelet estimate Decreased( A) [facility] Blood 10/05/2024 3:42 AM CIGAR HEAD HOLER 10/05/2024 4:28 AM CIGAR HEAD HOLER us Marcus Vergara MD LAB BLOOD ORDERABLES Edited Res ult - Final [facility] WAY[facility] Department [place] [address] * (ABNORMAL) aPTT (10/05/2024 3:42 AM CIGAR HEAD HOLER) Pathologist [facility] aPTT 27(L) 28 - 38 sec Comment: Interpretive Data Heparin therapeutic range: 66.0 - 100.0 seconds. Range based on correlation with therapeutic heparin activity range of 0.3 - 0.7 Units/mL. Current interpretive data was last revised on 2023. Blood 10/05/2024 3:42 AM CIGAR HEAD HOLER 10/05/2024 4:25 AM CIGAR HEAD HOLER Marcus Vergara MD LAB BLOOD ORDERABLES Final Resu Performing Organization Address [facility] de Phone Number [facility] [place] [address] * (ABNORMAL) Protime-INR (10/05/2024 3:42 AM CIGAR HEAD HOLER) PT 14.5(H) 9.7 - 13.0 sec INR 1.33(H) 0.90 - 1.20 [facility] Comment: Interpretive data Oral anticoagulant therapeutic ranges: Venous thromboembolism prophylaxis or treatment: 2.0-3.0 CARDIOLOGY Standard range: 2.0-3.0 High-intensity range: 2.5-3.5 Refer to indication-specific guidelines for appropriate target ranges for prosthetic heart valve replacement. Current interpretive data was last revised on 2019. Blood 10/05/2024 3:42 AM CIGAR HEAD HOLER 10/05/2024 4:25 AM CIGAR HEAD HOLER Marcus Vergara MD LAB BLOOD ORDERABLES Final Resu Performing Organization Address [facility] Co de Phone Number [facility] [place] [address] * (ABNORMAL) CBC without differential (10/05/2024 3:42 AM CIGAR HEAD HOLER) WBC 0.4(C) 3.8 - 9.9 K/cumm Comment:Critical result call ed to and read back by RHEA WORKMAN RN on 10 05 2024 at 0500 to Kristin Matute. Hgb 7.6(L) 11.9 - 15.5 g/dL [facility] Comment:Large delta with no apparant cause, correlate with clinical context and redraw if indicated. chemo. rhea workman rn Hct 22.0(L) 35.6 - 45.5 % [facility] Plt 5(C) 150 - 400 K/cumm [facility] Comment:rhea workman rn. C ritical result called to and read back by RHEA WORKMAN RN on 10 05 2024 at 0500 to [facility]. MPV Not Measured 9.1 - 12.3 fL [facility] RBC 2.26(L) 3.90 - 5.20 M/cumm [facility] MCV 97.3(H) 81.3 - 96.4 fL [facility] MCH 33.6(H) 27.1 - 33.3 pg [facility] MCHC 34.5 32.3 - 35.7 g/dL [facility] RDW CV 15.3(H) 11.1 - 14.9 % [facility] RDW SD 54.4(H) 35.7 - 48.1 fL [facility] NRBC abs 0.00 0.00 - 0.01 K/cumm [facility] Blood 10/05/2024 3:42 AM CIGAR HEAD HOLER 10/05/2024 4:28 AM CIGAR HEAD HOLER Marcus Vergara MD LAB BLOOD ORDERABLES Final Resu lt [facility] [place] [address] * Type and screen (10/05/2024 3:42 AM CIGAR HEAD HOLER) ABO Rh A Positive Bing, indirect Negative [facility] Blood 10/05/2024 3:42 AM CIGAR HEAD HOLER 10/05/2024 4:23 AM CIGAR HEAD HOLER Narrative [facility] - 10/05/2024 5:26 AM CIGAR HEAD HOLER Has the patient had Daratumumab or Isatuximab in the past 6 months?->Unknown Marcus Vergara MD LAB BLOOD BANK TEST ORDERABLES Final Result Performing Organization Address [facility] de Phone Number [facility] [place] [address] * (ABNORMAL) Uric acid (10/05/2024 3:42 AM CIGAR HEAD HOLER) Uric acid 1.9(L) 2.5 - 7.0 mg/dL Blood 10/05/2024 3:42 AM CIGAR HEAD HOLER 10/05/2024 4:28 AM CIGAR HEAD HOLER Narrative [facility] - 10/05/2024 4:58 AM CIGAR HEAD HOLER Saturday and only. Morning draw. . us Marcus Vergara MD LAB BLOOD ORDERABLES Final Resu lt Performing Organization Address [facility] de Phone Number [facility] [place] [address] * (ABNORMAL) Uric acid (10/05/2024 3:42 AM CIGAR HEAD HOLER) Uric acid 1.9(L) 2.5 - 7.0 mg/dL Blood 10/05/2024 3:42 AM CIGAR HEAD HOLER 10/05/2024 4:28 AM CIGAR HEAD HOLER Result Roseanna Vergara MD LAB BLOOD ORDERABLES Final Resu lt Performing Organization Address [facility] Co de Phone Number [facility] [place] [address] * Phosphorus (10/05/2024 3:42 AM CIGAR HEAD HOLER) Phosphorus, pl 3.3 2.3 - 4.5 mg/dL Blood 10/05/2024 3:42 AM CIGAR HEAD HOLER 10/05/2024 4:28 AM CIGAR HEAD HOLER us Marcus Vergara MD LAB BLOOD ORDERABLES Final Resu lt Performing Organization Address [facility] [place] [address] * Phosphorus (10/05/2024 3:42 AM CIGAR HEAD HOLER) Phosphorus, pl 3.4 2.3 - 4.5 mg/dL Blood 10/05/2024 3:42 AM CIGAR HEAD HOLER 10/05/2024 4:28 AM CIGAR HEAD HOLER us Marcus Vergara MD LAB BLOOD ORDERAB[place] [address] * Magnesium (10/05/2024 3:42 AM CIGAR HEAD HOLER) Magnesium 2.0 1.4 - 2.5 mg/dL Blood 10/05/2024 3:42 AM CIGAR HEAD HOLER 10/05/2024 4:28 AM CIGAR HEAD HOLER Result Roseanna Vergara MD LAB BLOOD ORDERABLES Final Resu lt Performing Organization Address [facility]/[place] [address] * (ABNORMAL) Lactate dehydrogenase (LD) (10/05/2024 3:42 AM CIGAR HEAD HOLER) Lactate dehydrogenase (LDH) 272(H) 100 - 250 Units/L Blood 10/05/2024 3:42 AM CIGAR HEAD HOLER 10/05/2024 4:28 AM CIGAR HEAD HOLER Narrative [facility] - 10/05/2024 4:58 AM CIGAR HEAD HOLER Saturday and only. Morning draw. us Marcus Vergara MD LAB BLOOD ORDERABLES Final Resu lt Performing Organization Address [facility]/[place] [address] * (ABNORMAL) Lactate dehydrogenase (LD) (10/05/2024 3:42 AM CIGAR HEAD HOLER) Lactate dehydrogenase (LDH) 275(H) 100 - 250 Units/L Blood 10/05/2024 3:42 AM CIGAR HEAD HOLER 10/05/2024 4:28 AM CIGAR HEAD HOLER us Marcus Vergara MD LAB BLOOD ORDERABLES Final Resu lt [facility] [place] [address] * (ABNORMAL) Comprehensive metabolic panel (10/05/2024 3:42 AM CIGAR HEAD HOLER) Pathologist [facility] Sodium 139 135 - 145 mmol/L Potassium, pl 4.1 3.3 - 4.9 mmol/L [facility] Chloride 104 97 - 110 mmol/L [facility] CO2 28 22 - 32 mmol/L [facility] Anion gap 7 2 - 15 mmol/L [facility] BUN 24 6 - 25 mg/dL [facility] Creatinine 0.70 0.60 - 1.10 mg/dL [facility] Glucose 133 70 - 199 mg/dL [facility] Comment: Interpretive Data Fasting glucose >/= 126 [...] 2022. Calcium 7.5(L) 8.5 - 10.3 mg/dL [facility] Bilirubin, total 1.2 0.1 - 1.2 mg/dL [facility] Protein, pl 5.8(L) 6.5 - 8.5 g/dL [facility] Albumin 2.6(L) 3.5 - 5.0 g/dL [facility] Alk phos 69 40 - 130 Units/L [facility] ALT 23 7 - 45 Units/L [facility] AST 23 10 - 45 Units/L [facility] Blood 10/05/2024 3:42 AM CIGAR HEAD HOLER 10/05/2024 4:28 AM CIGAR HEAD HOLER Narrative [facility] - 10/05/2024 4:58 AM CIGAR HEAD HOLER Saturday and only. Morning draw. Marcus Vergara MD LAB BLOOD ORDERABLES Final Resu lt Performing Organization Address [facility]/ZIP Co de Phone Number [facility] [place] [address] * Hepatitis panel, acute Blood (09/29/2024 2:05 PM CIGAR HEAD HOLER) Hep A IgM Nonreactive Nonreactive Hep B core IgM Nonreactive Nonreactive [facility] Hep C Ab Nonreactive Nonreactive [facility] Comment:Antibodies to HCV no t detected. Does NOT exclude the possibility of recent exposure to HCV. Current interpretive data was last revised on 22 HepBsAg Nonreactive Nonreactive [facility] Blood 09/29/2024 2:05 PM CIGAR HEAD HOLER 09/29/2024 2:59 PM CIGAR HEAD HOLER Marcus Vergara MD LAB MICROBIOLOGY - GENERAL ORDE [facility] Final Result Performing Organization Address [facility] de Phone Number [facility] [place] [address] * Screening Mammogram Bilateral W Eliceo (05/12/2024 11:54 AM CDT) Anatomical Region Laterality Modality Breast Bilateral Mammography Narrative 05/13/2024 8:41 AM CDT Mammogram Technique: Bilateral Digital Breast Tomosynthesis, Bilateral C-view 2D Screening mammogram. Views obtained: bilateral craniocaudal and bilateral mediolateral oblique. Computer Aided Detection was performed. Mammogram Findings: The present examination has been compared to prior imaging studies performed at [facility] on 04/24/2022, 04/30/2023 and 05/30/2023. There [...] compared to prior imaging studies performed at [facility] on 04/24/2022, 04/30/2023 and 05/30/2023. There are scattered areas of fibroglandular density. There are post breast conservation therapy changes in the left breast. There is no suspicious abnormality in either breast. Impression: There is no mammographic evidence of malignancy. Annual screening mammography is recommended. OVERALL FINAL ASSESSMENT: BI-RADS CATEGORY 2: Benign. Vidya Patterson NP IM MAMMO PROCEDURES Final Result from Last 3 Months or Most Recently Relevant to Health Maintenance Insurance [facility] HMO/PPO Address: [facility] [id number] [place] [address] [facility] [employer] ACC[employer] CHOICE [employer] ACCESS CHOICE TRANSPLANT [employer] Advance Directives For more information, please contact: [phone] * Full Code (Latest Code Status on File) Date Activated Date Inactivated Comments 11/14/2024 9:05 PM 12/04/2024 10:10 PM * Full Code Date Activated Date Inactivated Comments 11/06/2024 8:30 PM 11/11/2024 8:06 PM * Full Code Date Activated Date Inactivated Comments 09/29/2024 1:45 PM 10/28/2024 7:01 PM Care Teams Fiscal Agent Relationship Specialty Start Date End Date Grey Ayala MD [address] [facility] [address] [place] [address] PCP - General 12/27/17 Vicente Duke MD [address] [facility] [address] IM [employer] [place] [address] Medical Oncologist/Health Science Specialist Internal Medicine 10/28/24
--- OUTSIDE RECORDS SUMMARY | 2025-01-02 15:42 | XMS_ITS | Encounter Summary ---
Author Organization [facility] Address [address] [place] [address] Care Team Providers Care Pelt Inspector Name Role Phone Unavailable Primary Care Provider Unavailabl e Encounter Details Date Type Department Care Team (Latest Contact Info) Description 08/06/2008 Outpatient Historical HIS [facility] MATTHEW Dunham, Leighann Galarza MD [address] [facility] [address] [facility] [place] [address] Chronic Lymphocytic Thyroiditis Social History Tobacco Use Types Packs/Day Years Used Date Smoking Tobacco: Never Assessed Comments Unknown Sex and Gender Information Value Date Recorded Sex Assigned at Not on file Legal Sex Female 5:40 AM CLAIMS TECHNICIAN Gender Identity Not on file Sexual Orientation Not on file documented as of this encounter Plan of Treatment Not on file documented as of this encounter Procedures Procedure Name Priority Date/Time Associated Diagnosis Comments T3 FREE Routine 08/06/2008 11:22 AM CLAIMS TECHNICIAN TSH Routine 08/06/2008 11:22 AM CLAIMS TECHNICIAN T4 FREE Routine 08/06/2008 11:22 AM CLAIMS TECHNICIAN documented in this encounter Results * T4 FREE (08/06/2008 11:22 AM CLAIMS TECHNICIAN) T4 FREE 1.0 0.9 - 1.7 ng/dL [facility] Blood specimen (specimen) 08/06/2008 11:22 AM CLAIMS TECHNICIAN 08/06/2008 11:35 AM CLAIMS TECHNICIAN us Leighann Dunham MD CHEMISTRY ORDERABLES Final Result INTERFACE SYSTEM Refer to clinic/hospital department [facility] CLIA# [id number] [address] [place] [address] * TSH (08/06/2008 11:22 AM CLAIMS TECHNICIAN) TSH 1.80 0.27 - 4.20 uU/mL [facility] Blood specimen (specimen) 08/06/2008 11:22 AM CLAIMS TECHNICIAN 08/06/2008 11:35 AM CLAIMS TECHNICIAN us Leighann Dunham MD CHEMISTRY ORDERABLES Final Result Performing Organization Address City/[facility] de Phone Number INTERFACE SYSTEM Refer to clinic/hospital department [facility] CLIA# [id number] [address] [place] [address] * T3 FREE (08/06/2008 11:22 AM CLAIMS TECHNICIAN) T3 FREE 3.2 2.5 - 4.4 pg/mL [facility] Blood specimen (specimen) 08/06/2008 11:22 AM CLAIMS TECHNICIAN 08/06/2008 11:35 AM CLAIMS TECHNICIAN us Leighann Dunham MD CHEMISTRY ORDERABLES Final Result Performing Organization Address City/[facility] Co de Phone Number INTERFACE SYSTEM Refer to clinic/hospital department [facility] CLIA# [id number] [address] [address] documented in this encounter Visit Diagnoses Diagnosis Chronic lymphocytic thyroiditis documented in this encounter
--- OUTSIDE RECORDS SUMMARY | 2025-01-02 15:42 | XMS_ITS | Encounter Summary ---
Author Organization [facility] Healthcare Address [address] [place] [address] Care Team Providers Care Barber Shop Operator Name Role Phone Grey Ayala MD Primary Care Provider Vicente Duke MD Unavailable Reason for Referral * MRI/CAT/PET Scan (Routine) - Closed Specialty Diagnoses / Procedures Referred By Roseanne cooper Referred To Contact Radiology Diagnoses Cellulitis of labia Pseudomonas infection Encounter for screening examination for sexually transmitted disease Acute myeloid leukemia not having achieved remission (HCC) Procedures CT pelvis with contrast Marta Cassidy NP [address] [place] [address] Phone: tel: fax: [address] [phone] Referral ID Status Reason Start Date Expiration Date Visits Re quested Visits Authorized [id number] Closed 12/28/2024 01/26/2025 1 1 Reason for Visit * MRI/CAT/PET Scan (Routine) - Closed Specialty Diagnoses / Procedures Referred By Roseanne cooper Referred To Contact Radiology Diagnoses Cellulitis of labia Pseudomonas infection Encounter for screening examination for sexually transmitted disease Acute myeloid leukemia not having achieved remission (HCC) Procedures CT pelvis with contrast Marta Cassidy NP [address] [facility] [address] [place] [address] Phone: tel: fax: [address] [phone] Referral ID Status Reason Start Date Expiration Date Visits Re quested Visits Authorized [id number] Closed 12/28/2024 01/26/2025 1 1 Encounter Details Date Type Department Care Team (Latest Contact Info) Description 01/01/2025 9:05 AM CDT - 01/01/2025 11:59 PM CDT Hospital Encounter [facility] [place] [address] [facility] [address] [place] [address] Cellulitis of labia; Pseudomonas infection; Encounter for screening examination for sexually transmitted disease; Acute myeloid leukemia not having achieved remission (HCC) Discharge Disposition: Discharge to home or self care Social History Tobacco Use Types Packs/Day Years Used Date Smoking Tobacco: Never Alcohol Use Standard Drinks/Week Comments No 0 (1 standard drink = 0.6 oz pur e alcohol) [facility] Utilities Answer Date Recorded In the past 12 months has [employer], gas, oil, or water company threatened [...] often do you attend chur ch or restorationism services? 1 to 4 times per year 11/23/2024 Do you belong to any clubs o r organizations such as anglican groups, unions, fraternal or athletic groups, or [...] any time in the past 12 m [facility] [place], were you homeless or living in a fdc (including now)? No 11/23/2024 Personal Safety Answer Date Recorded Have you ever been in or are you currently in a harmful physical or emotional relationship or is someone making you feel afraid or unsafe? Denies 11/14/2024 Comments No Sex and Gender Information Value Date Recorded Sex Assigned at Not on file Legal Sex Female 2:12 AM SHORT PIECE HAND[employer] Gender Identity Not on file Sexual Orientation Not on file documented as of this encounter Medications at Time of Discharge allopurinoL (ZYLOPRIM) 300 mg tabletIndications:A cute myeloid leukemia not having achieved remission (HCC) Take 1 tablet (300 mg total) by mouth daily For tumor lysis prevention 30 tablet 01/03/2025 5 ALPRAZolam (XANAX) 0.25 mg tablet TK 1 T PO QD PRN 0 11/04/2018 ciprofloxacin (CIPRO) 750 mg tabletIndications:A cute myeloid leukemia not having achieved remission (HCC) 12/04/2024 ciprofloxacin (CIPRO) suspension 500 mg/5 mL Take 7.5 mL (750 mg total) by mouth 2 (two) times a day 450 mL 12/04/2024 citalopram (CeleXA) 20 mg tablet 3 01/04/2019 famotidine (PEPCID) 40 mg tabletIndications:G astroesophageal reflux disease without esophagitis Take 1 tablet (40 mg total) by mouth daily 30 tablet 11 11/13/2024 6 fexofenadine (DOREEN) 180 mg tablet Take 0.5 tablets (90 mg total) by mouth daily gilteritinib (Xospata) 40 mg tabletIndications:A cute myeloid leukemia not having achieved remission (HCC) Take 2 tablets (80 mg total) by mouth daily DISSOLVE 2 TABLETS IN 20ML OF 50 DEGREES CELSIUS/120 DEGREES FAHRENHEIT WATER AND DRINK 1 TIME A DAY. STIR UNTIL BOTH TABLETS HAVE COMPLETELY DISSOVLED AND DRINK SUSPENSION WITHIN 2 HOURS. 56 tablet 12/22/2024 isavuconazonium (Cresemba) 186 mg capsuleIndications: Acute myeloid leukemia not having achieved remission (HCC) Take 2 capsules (372 mg total) by mouth daily 60 capsule 01/01/2025 nystatin 100,000 unit/mL suspensionIndicatio ns:oral candidiasis Take 5 mL (500,000 Units total) by mouth 4 (four) times a day 473 mL 12/04/2024 ondansetron ODT (ZOFRAN-ODT) 4 mg disintegrating tabletIndications:N ausea Take 1 tablet (4 mg total) by mouth every 8 (eight) hours as needed for nausea or vomiting 60 tablet 12/09/2024 5 prochlorperazine (Compazine) 10 mg tabletIndications:A cute myeloid leukemia not having achieved remission (HCC) Take 1 tablet (10 mg total) by mouth every 6 (six) hours as needed for nausea or vomiting Use first for nausea 120 tablet 3 01/03/2025 sulfamethoxazole-tr imethoprim (BACTRIM DS) 800-160 mg per tablet Take 1 tablet by mouth 2 (two) times daily for 2 (two) days per week On Mondays and 48 tablet 11/12/2024 valACYclovir (VALTREX) 500 mg tabletIndications:P rophylaxis, Medical Take 1 tablet (500 mg total) by mouth daily 30 tablet 12/22/2024 venetoclax (VENCLEXTA) 100 mg tabletIndications:A cute myeloid leukemia not having achieved remission (HCC) Take 2 tablets (200 mg total) by mouth daily for 7 days 14 tablet 01/04/2025 documented as of this encounter Discharge Disposition Disposition Code Departure Means Destination Discharge to home or self care documented in this encounter Plan of Treatment Pending Results Name Type Priority Associated Diagnoses Date /Time CT pelvis with contrast Imaging Schedule Routine, Read Routine (OP Routine) Cellulitis of labia Pseudomonas infection Encounter for screening examination for sexually transmitted disease Acute myeloid leukemia not having achieved remission (HCC) 01/01/2025 9:31 AM CDT documented as of this encounter Procedures Procedure Name Priority Date/Time Associated Diagnosis Comments CT PELVIS W CONTRAST Schedule Routine, Read [...] recommend urinalysis. Dictated by: Hugo Cox M.D. documented in this encounter Visit Diagnoses Diagnosis Cellulitis of labia Pseudomonas infection Encounter for screening examination for sexually transmitted disease Acute myeloid leukemia not having achieved remission (HCC) documented in this encounter Administered Medications Inactive Administered Medications - up to 3 most recent administrations Medication Order MAR Action Action Date Dose Rate Site ioversoL (OPTIRAY 350) syringe 75 mL 75 mL, intravenous, Once in imaging, contrast, Starting on Sat01/01/25 at 0919, For 1 dose Contrast Given 01/01/2025 9:25 AM CDT 68 mL documented in this encounter Orders Medications Ordered That Adi ht Not Have Been Administered Count Last Ordered Date First Ordered Date ioversoL (OPTIRAY 350) syringe 75 mL 1 10/2024 documented in this encounter Care Teams Barber Shop Operator Relationship Specialty Start Date End Date Grey Ayala MD [address] [place] [address] PCP - General 12/27/17 Vicente Duke MD [address] [facility] [employer] [place] [address] Medical Oncologist/Process Mechanic Internal Medicine 10/28/24 documented as of this encounter
--- OUTSIDE RECORDS SUMMARY | 2025-01-02 15:42 | XMS_ITS | Encounter Summary ---
Author Organization [facility] Address [address] [place] [address] Phone Care Team Providers Care Healthcare Specialist Name Role Phone Grey Ayala MD Primary Care Provider Vicente Duke MD Unavailable Encounter Details Date Type Department Care Team (Late st Contact Info) Description 01/01/2025 11:30 AM CDT Office Visit [facility] Bone Marrow Transplant [address] [place] [address] Diana Cole, SANDY [address] DIV IM BONE MARROW TRANSPLANT, [address] [place], [place] [id number] 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 1 to 4 times per year 11/23/2024 Do you belong to any clubs o r organizations such as druze groups, unions, fraternal or athletic groups, or [...] any time in the past [facility], were you homeless or living in a correction (including now)? No 11/23/2024 Personal Safety Answer Date Recorded Have you ever been in or are you currently in a harmful physical or emotional relationship or is someone making you feel afraid or unsafe? 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 Gender Identity Not on file Sexual Orientation Not on file documented as of this encounter Last Filed Vital Signs Vital Sign Reading Time Taken Comments Blood Pressure 129/74 01/01/2025 9:57 AM CDT Pulse 86 01/01/2025 9:57 AM CDT Temperature 36.6 C (97.8 F) 01/01/2025 9:57 AM CDT Respiratory Rate 18 01/01/2025 9:57 AM CDT Oxygen Saturation 98% 01/01/2025 9:57 AM CDT Inhaled Oxygen Concentration - - Weight 56.2 kg (123 lb 12.8 oz) 01/01/2025 9:57 AM CDT Height - - Body Mass Index 21.93 12/25/2024 2:24 PM CDT documented in this encounter Ordered Prescriptions Prescription Sig Dispense Quantity Refills Last Filled Start Date End Date isavuconazonium (Cresemba) 186 mg capsuleIndications :Acute myeloid leukemia not having achieved remission (HCC) Take 2 capsules (372 mg total) by mouth daily 60 capsule 01/01/2025 venetoclax (VENCLEXTA) 100 mg tabletIndications: Acute myeloid leukemia not having achieved remission (HCC) Take 2 tablets (200 mg total) by mouth daily for 7 days 14 tablet 01/04/2025 5 allopurinoL (ZYLOPRIM) 300 mg tabletIndications: Acute 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 Leukemia/BMT Consult Reason for Consult: AML with NPM1 and [id number] Requesting Provider: Inpatient BMT Day: NA Chief Complaint: Patient is a 59 y.o. female with chief complaint of hematuria who presented at OSH and was found tohave WBC 115k and transferred to [facility]. Subjective HPI: Ms. Cruz is a 59 yo female with PMH of breast cancer s/p surgery and radiation who presented to OSH with hematuria, thrombocytopenia and hyperleukocytosis. She was transferred to [facility] and was found to have 75% monocytes, a normal karyotype, and NPM1 and FLT3 ITD mutations with allelic ratio of 0.4. She also had a KRAS G12D mutation in myeloseq. She was started on [place] Midosaturin induction but could not swallow the pills due to a functional inability to do so. This is a problem she has hadall her life when taking pills. She only took 6 pills of Midostaurin total. Her induction was complicated by neutropenic fever, ileus, and possible pneumonia. Interval: Seeing her after C2 of therapy with [place] Gilt which was complicated by vulvar cellulitis that is now resolving upon count recovery. She is here to discuss plans for future treatment which includestarting 3 day decitabine + 7 day venetoclax with dosing of 200mg daily. She will then move forwardto transplant. She presents to clinic today accompanied by her . She denies any chest pain or shortness of breath. She denied any nausea, vomiting, diarrhea, or constipation. She denies any fevers, chills, night sweats, cough, or other infectious symptoms. She notes her appetite is good and her weight is stable. She is independent with activities of daily living. Cancer Staging No matching staging information was found for the patient. Oncology History No history exists. Active Treatment & Therapy Plans for Cathi Cruz Oncology Chemotherapy Treatment: Venetoclax / Decitabine (D1-5) 28 Day Cycles - AML Current day: Preparation (Planned for 01/03/2025) Following planned day: Day 1, Cycle 1 (Planned for 01/04/2025) Oncology Treatment (2): Gilteritinib PO 28 Day Cycles - AML (On Hold) Current day: Day 1, Cycle 1 (Planned for 11/12/2024) Following planned day: Day 8, Cycle 1 (Planned for 11/19/2024) Blood Products: Adult BMT/ONC - Blood and/or Platelet Administration for Outpatient Current treatment: Treatment 1 (Planned for 11/17/2024) BMT/ONC IP BLOOD PRODUCTS: BMT Adult Blood and Platelet Administration for Inpatient Current treatment: Treatment 30 (Started on 12/04/2024; Originally planned for 12/04/2024) Past Medical History: Diagnosis Date Anemia Breast cancer (HCC) GERD (gastroesophageal reflux disease) Osteoarthritis Osteoarthritis Peptic ulcer Peptic ulcer disease PONV (postoperative nausea and vomiting) Past Surgical History: Procedure Laterality Date BREAST BIOPSY BREAST LUMPECTOMY CENTRAL LINE PLACEMENT > 5 YEARS N/A 10/01/2024 HEMORRHOID SURGERY hemmoroids KNEE ARTHROSCOPY R/L knee arthroscopic Allergies Allergen Reactions Ceftriaxone Itching Per family. Occurred at OSH Oxycodone Nausea only Current Outpatient Medications Medication Instructions [START ON 01/03/2025] allopurinoL (ZYLOPRIM) 300 mg, oral, Daily, For tumor lysis prevention ALPRAZolam (XANAX) 0.25 mg tablet TK 1 T PO QD PRN ciprofloxacin (CIPRO) 750 mg tablet ciprofloxacin (CIPRO) 750 mg, oral, 2 times daily citalopram (CeleXA) 20 mg tablet Cresemba 372 mg, oral, Daily famotidine (PEPCID) 40 mg, oral, Daily fexofenadine (DOREEN) 90 mg, Daily nystatin 500,000 Units, oral, 4 times daily ondansetron ODT (ZOFRAN-ODT) 4 mg, oral, Every 8 hours PRN [START ON 01/03/2025] prochlorperazine (COMPAZINE) 10 mg, oral, Every 6 hours PRN, Use first for nausea sulfamethoxazole-trimethoprim (BACTRIM DS) 800-160 mg per tablet 1 tablet, oral, 2 times daily for 2 days weekly, On Mondays and valACYclovir (VALTREX) 500 mg, oral, Daily [START ON 01/04/2025] venetoclax (VENCLEXTA) 200 mg, oral, Daily Xospata 80 mg, oral, Daily, DISSOLVE 2 TABLETS IN 20ML OF 50 DEGREES CELSIUS/120 DEGREES FAHRENHEITWATER AND DRINK 1 TIME A DAY. STIR UNTIL BOTH TABLETS HAVE COMPLETELY DISSOVLED AND DRINK SUSPENSION WITHIN 2 HOURS. Family History Problem Relation Age of Onset Colon cancer Father 53 Cancer -colon; /Cancer, colon; Cause of : Cancer, colon/Colon adenocarcinoma - (Added by TW Conv) Coronary artery disease Mother Coronary artery disease; Hyperlipidemia Mother Hyperlipidemia; Hypertension Mother Hypertension; Heart disease Mother Heart disease; Other Brother Alive and well; Social History Tobacco Use Smoking status: Never Smokeless tobacco: None Substance and Sexual Activity Drug use: Not Currently Sexual activity: Defer Alcohol Use: Not on file Review of Systems As above, all other systems negative. Objective Vitals: Most Recent : BP: 129/74 Temp: 36.6 ??C (97.8 ??F) Temp src: Temporal Pulse: 86 Resp: 18 SpO2: 98 % Weight: 56.2 kg (123 lb 12.8 oz) Physical exam: General appearance: generally well appearing female in no acute distress. Patient is awake, alert, and oriented x3 and verbally appropriate. ECOG: (1) Restricted in physically strenuous activity, ambulatory and able to do work of light nature [place]: 80% HEENT: Face symmetric, eyes PERRLA. Sclerae are anicteric. Oral mucosa is pink and moist, without lesions or oral candidiasis noted. There is no palpable lymphadenopathy Lungs: Clear to auscultation bilaterally. Cardiovascular: Regular rate and rhythm Abdomen: Soft and nontender with no palpable masses. Positive bowel sounds. No hepatosplenomegaly noted. Extremities: No clubbing, cyanosis, or edema. Skin: Dry and intact. Without rash. Neurological: no focal deficits Lab/Radiology/Diagnostic Review: CBC: Lab Results Component Value Date/Time WBC 3.21 (L) 01/01/2025 09:52 AM HGB 10.4 (L) 01/01/2025 09:52 AM HCT 30.4 (L) 01/01/2025 09:52 AM MCV 93.3 01/01/2025 09:52 AM LABPLAT 166 01/01/2025 09:52 AM MCH 31.9 01/01/2025 09:52 AM MCHC 34.2 01/01/2025 09:52 AM RDW 13.9 07/13/2013 04:05 AM RDWCV 22.9 (H) 01/01/2025 09:52 AM RDWSD 42.1 12/04/2024 12:23 AM MPV 7.1 01/01/2025 09:52 AM NEUTROABS 1.86 01/01/2025 09:52 AM BLASTS 6.7 (Critical) 10/03/2024 01:41 AM LYMPHOPCT 21.5 01/01/2025 09:52 AM CMP: Lab Results Component Value Date/Time SODIUM 140 01/01/2025 09:52 AM POTASSIUM 4.2 01/01/2025 09:52 AM CO2 25 01/01/2025 09:52 AM CO2 20 11/15/2024 01:28 AM BUNSER 14 01/01/2025 09:52 AM GLUCOSE 94 01/01/2025 09:52 AM CREATININE 0.85 01/01/2025 09:52 AM CALCIUM 8.7 01/01/2025 09:52 AM CHLORIDE 106 01/01/2025 09:52 AM ALBUMIN 3.8 01/01/2025 09:52 AM AST 31 01/01/2025 09:52 AM ALT 19 01/01/2025 09:52 AM ALKPHOS 120 01/01/2025 09:52 AM BILITOT 0.2 01/01/2025 09:52 AM PROT 6.6 01/01/2025 09:52 AM ANIONGAP 9 01/01/2025 09:52 AM LDH: Lab Results Component Value Date/Time LDH 296 (H) 01/01/2025 09:52 AM Uric Acid: Lab Results Component Value Date/Time URICACID 3.1 01/01/2025 09:52 AM PT: Lab Results Component Value Date/Time PT 12.6 01/01/2025 09:52 AM PTT: Lab Results Component Value Date/Time APTT 32 01/01/2025 09:52 AM Tumor Marker History Latest Ref Rng & Units 11/06/2024 20:56 11/14/2024 22:32 11/15/2024 16:33 01/01/2025 09:52 Tumor Markers Fibrinogen 170 - 400 mg/dL 172 153 270 347 No results found for: IFIXINTRP Radiology: PET CT with some avidity in the submandibular LN and adenoids. Also with liver avidity. Pathology: Diagnostic: AML with monocytic predominance NPM1 and FLT3 ITD with 0.4 AR KRAS mut as well Assessment/Plan 1. Acute myeloid leukemia not having achieved remission (HCC) (Primary) Ms Cruz has intermediate risk AML due to FLT3 and NPM1 co mutation state. She was treated with FLAG [place] but could not complete midostaurin due to a functional inability to swallow pills. Second cycle was completed with gilteritinib which she took with no issues. Treatment: Induction: [place] Midostaurin (only took 6 pills due to dysphagia) Consolidation 1: [place] Gilteritinib D8-21 -plan to start cycle 1 of 3 day decitabine + 7 day nikolai (200mg)+ gilt on 01/04/25. -plan to proceed to transplant. 2. Functional dysphagia to pills 3. Opportunistic Infection Prophylaxis: remains on cipro, cresemba, vlatrex, and bactrim. 4. Follow up: twice weekly labs and return to clinic prior to starting cycle 2. She knows to call our office with any questions or concerns and we will be happy to see her sooner if needed. This patient was discussed with Dr. John Rao who agrees with the plan of care Diana ELIZONDO Nurse Practitioner in collaboration with Dr. Esther Manrique Cosigned by Vicente Duke MD at 01/01/2025 8:18 PM CDT documented in this encounter Nursing Notes * Peter Estrada RN - 01/01/2025 11:30 AM CDT Cathi Cruz is a 59 yo F with AML FLT3+ s/p FLAG/GO induction. Plan to start Dec/Nikolai (3+7) on 01/04/25 and continue xospata. Patient had many questions today but all answered. No fevers. S/p pelvic CT today for follow up on labial cellulitis. Signed MUD and sib sheets. Will see back in 1 month with next cycle. 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 (HCC) Expected: 01/04/2025, Expires: 01/04/2026 Uric acid Lab STAT Acute myeloid leukemia not having achieved remission (HCC) Expected: 01/04/2025, Expires: 01/04/2026 Lactate dehydrogenase (LD) Lab Routine Acute myeloid leukemia not having achieved remission (HCC) Expected: 01/04/2025, Expires: 01/04/2026 CBC with auto differential Lab STAT Acute myeloid leukemia not having achieved remission (HCC) Expected: 01/05/2025, Expires: 01/05/2026 Basic metabolic panel Lab STAT Acute myeloid leukemia not having achieved remission (HCC) Expected: 01/05/2025, Expires: 01/05/2026 Phosphorus Lab STAT Acute myeloid leukemia not having achieved remission (HCC) Expected: 01/05/2025, Expires: 01/05/2026 Uric acid Lab STAT Acute myeloid leukemia not having achieved remission (HCC) Expected: 01/05/2025, Expires: 01/05/2026 CBC with auto differential Lab STAT Acute myeloid leukemia not having achieved remission (HCC) Expected: 01/06/2025, Expires: 01/06/2026 Basic metabolic panel Lab STAT Acute 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 (HCC) Expected: 01/06/2025, Expires: 01/06/2026 Phosphorus Lab STAT Acute 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 (HCC) Expected: 01/06/2025, Expires: 01/06/2026 Uric acid Lab STAT Acute myeloid leukemia not having achieved remission (HCC) Expected: 01/06/2025, Expires: 01/06/2026 CBC with auto differential Lab Routine Acute 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 (HCC) Expected: 02/02/2025, Expires: 02/02/2026 Comprehensive metabolic panel Lab STAT Acute myeloid leukemia not having achieved remission (HCC) Expected: 02/02/2025, Expires: 02/02/2026 Lactate dehydrogenase (LD) Lab Routine Acute myeloid leukemia not having achieved remission (HCC) Expected: 02/02/2025, Expires: 12/29/2025 Uric acid Lab Routine Acute myeloid leukemia not having achieved remission (HCC) Expected: 02/02/2025, Expires: 12/29/2025 Magnesium Lab Routine Acute myeloid 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 (HCC) Expected: 02/02/2025, Expires: 12/29/2025 Phosphorus Lab Routine Acute myeloid leukemia not having achieved remission (HCC) Expected: 02/02/2025, Expires: 12/29/2025 Type and screen Lab Routine Acute myeloid 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 having achieved remission (HCC) Expected: 02/02/2025, Expires: 12/29/2025 CBC with auto differential Lab Routine Acute 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 (HCC) 2x weekly for 10 Occurrences starting 01/01/2025 until 12/29/2025 Comprehensive metabolic panel Lab Routine Acute myeloid leukemia not having achieved remission (HCC) 2x weekly for 10 Occurrences starting 01/01/2025 until 12/29/2025 Lactate dehydrogenase (LD) Lab Routine Acute myeloid leukemia not having achieved remission (HCC) 2x weekly for 10 Occurrences starting 01/01/2025 until 12/29/2025 Type and screen Lab Routine Acute myeloid leukemia not having achieved remission (HCC) 2x weekly for 10 Occurrences starting 01/01/2025 until 12/29/2025 documented as of this encounter Visit Diagnoses Diagnosis Acute myeloid leukemia not having achieved remission (HCC)- Primary documented in this encounter Discontinued Medications Medication Sig Discontinue Reason Start Date End Da te isavuconazonium (Cresemba) 186 mg capsule Take 2 capsules (372 mg total) by mouth daily Reorder 12/04/2024 01/01/2025 documented as of this encounter Historical Medications * This list may reflect changes made after this encounter. Medication Sig Dispense Quantity Refills Last Filled Start D ate End Date ciprofloxacin (CIPRO) 750 mg tabletIndications:Acute myeloid leukemia not having achieved remission (HCC) 12/04/2024 added in this encounter Orders Appointment Requests Count Last Ordered Date Fi rst Ordered Date ONCBCN BLOOD TRANSFUSION APPT 1 01/01/2025 ONCBCN CLINIC APPOINTMENT REQUEST 2 2 025 12/29/2024 ONCBCN LAB APPOINTMENT 5 01/01/202512/29 ONCBCN PLATELET TRANSFUSION APPT 1 01/02/20 ONCBCN RETURN CHEMO 2HRS 6 12/29/2024 documented in this encounter Care Teams Healthcare Specialist Relationship Specialty Start Date End Date Grey Ayala MD [address] [place] [address] PCP - General 12/27/17 Vicente Duke MD [address] [facility] [address] DIV [place] [address] Medical Oncologist/Freezer Machine Operator Internal Medicine 10/28/24 documented as of this encounter
--- OUTSIDE RECORDS SUMMARY | 2025-01-02 15:42 | XMS_ITS | Data Portability ---
Author Organization [facility] [place] Address [address] [place] [address] Care Team Providers Care Air Cargo Specialist Name Role Phone REDMOND LETI Primary Care Provider Assessment Encounter Date Assessment [...] a year unless there are new symptoms. [email or web address] Not available 05/10/2023 09:14:00 06/22/2024 06/22/2024 Annual [...] By Organization Details Last Modified Time 04/22/2020 [id number] [email or web address] Not available 16:39:56 Reason for Referral [...] and labor atory findi ngs. See https ://Intellistream/s ites/ defau lt/fi les/2 018-0 3/AW- 58817 _002_ 01.pd f for ecu health er infor matio n. Test perfo rmed by [facility], [address], [place] [address] , Gaby Hunt ra, , Labor atory [...] e detec tion of E6/E7 viral mRNA. [facility] shoul d be corre lated with patie nt prese ntati on, histo ry, cervi melissa cytol ogy and other clini melissa and labor atory findi ngs. See https ://Intellistream/s ites/ defau lt/fi 018-0 3/- 64473 _002_ 01.pd f for ecu health er infor matio n. Test perfo rmed by [facility], [address], [place] [address] , Gaby Hunt ra, , Labor atory Dire tor. End of Repor t Techn ical servi phyllis provi ded by [facility], [address] [place] [address] Jose Jones MD, Labor Yieldry Dire [place]. Case revie wed and diagn osis rende red at [facility], [address] [place] [address] Jose Jones MD, Labor atory Dire tor. CONFI DENTI AL Not Available [facility] ([facility]) [address], [place], [address], 04/26/2020 09:02:30 04/22/20 20 04/24/2020 HPV DNA, high- risk HPV high risk NOT DETECT ED normal Not Available [facility] ([facility]) [address], [place], [address], 04/26/2020 09:02:31 04/27/20 21 04/27/2021 IMAGE GUIDE D PAP AND HPV REGAR DLESS image guided Pap, HPV regardless of Pap result SEE RESULT S BELOW CASE REPOR T: Cytol ogy Gynec ologi melissa Repor t Case: [id number] Autho cynthia sevilla Provi leonela: Luciano Bryant Colle cted: 04/27 1614 BACTERIOLOGIST FOOD Order ing Locat ion: [place] Patho logy [...] as clini chante warra nted. Not Available [facility] (Lab) [address], [place], [address], 04/29/2021 23:44:50 04/30/20 22 04/30/2022 IMAGE GUIDE D PAP AND HPV REGAR DLESS image guided Pap, HPV regardless of Pap result SEE RESULT S BELOW CASE REPOR T: Cytol ogy Gynec ologi melissa Repor t Case: [id number] Autho cynthia sevilla Provi leonela: Luciano Bryant Colle cted: 04/30 1600 BACTERIOLOGIST FOOD Order ing Locat ion: [place] Patho landen [...] as clini chante huerta nted. Not Available [facility] [address] [place], [address], 05/04/2022 22:15:21 05/10/20 23 05/10/2023 IMAGE GUIDE D PAP AND HPV REGAR DLESS image guided Pap, HPV regardless of Pap result SEE RESULT S BELOW CASE REPOR T: Cytol ogy Gynec ologi melissa Repor t Case: [id number] Autho cynthia sevilla Provi leonela: Luciano Bryant Colle cted: 05/10 1421 BACTERIOLOGIST FOOD Order ing Locat ion: [place] Patho logy [...] as clini chante warra nted. Not Available [facility] (Lab) [address], [place], [address], 05/14/2023 11:38:07 06/22/20 24 06/22/2024 IMAGE GUIDE [...] as clini chante warra nted. Not Available [facility] (Lab) [address], [place], [address], 06/27/2024 07:42:36 04/10/20 21 04/07/2021 MAMMO , scree jyothi, bilat eral No observ ation record ed. [facility] Breast [address], [address], 04/11/2021 12:16:02 Result Notes None recorded. Problems Name Problem SNOMED Code Status Onset Date Resolution Date Notes Provider Name and Address Organization Details Recorded Time SNOMED CT Concept Completed 201604/27/2021 Encntr for applicator sprayer exam (general) (routine) w/o abn findings; Recorded Elsewhere : No Locati on: [facility] So urce: EHR Chron ic: N Practic e ID: 0001 Bill able Time: 03:30:00 PM Sofia Escobedo [facility] 1 15:07:02 Malaise and fatigue [id number] Completed 201404/27/2021 Fatigue / Malaise;R ecorded Elsewhere : No Locati on: [facility] So urce: EHR Chron ic: N Practic e ID: 0001 Bill able Time: 11:00:00 AM Sofia Escobedo [facility] 1 15:06:44 Postmeno pausal bleeding [id number] Completed 201604/27/2021 Postmenop ausal bleeding; Recorded Elsewhere : No Locati on: [facility] So urce: EHR Chron ic: N Practic e ID: 0001 Bill able Time: 04:45:00 PM Sofia Escobedo [facility] 1 15:06:[address] [facility] medical examinat ion Completed 201404/27/2021 ROUTINE HEAD BUYER TOBACCO EXAMINATI ON;Record ed Elsewhere : No Locati on: [facility] So urce: EHR Chron ic: N Practic e ID: 0001 Bill able Time: 05:45:00 PM Sofia Escobedo [facility] 1 15:07:03 Blood leukocyt e number above referenc e range [id number] Completed 201804/27/2021 Elevated white blood cell count, unspecifi ed;Record ed Elsewhere : No Locati on: [facility] So urce: EHR Chron ic: N Practic e ID: 0001 Bill able Time: 05:00:00 PM Sofia Escobedo [facility] 1 15:06:42 Screenin g for malignan t neoplasm of cervix Completed 201704/27/2021 Screening for cervical ca;Record ed Elsewhere : No Locati on: [facility] So urce: EHR Chron ic: N Practic e ID: 0001 Bill able Time: 05:15:00 PM Sofia Escobedo [facility] 15:06:56 Overweig ht [id number] Completed 201404/27/2021 Overweigh t;Recorde d Elsewhere : No Locati on: [facility] So urce: EHR Chron ic: N Practic e ID: 0001 Bill able Time: 05:45:00 PM Sofia Escobedo [facility] 15:06:48 Screenin g for malignan t neoplasm of rectum Completed 201504/27/2021 Encounter for screening for malignant neoplasm of rectum;Re corded Elsewhere : No Locati on: [facility] So urce: EHR Chron ic: N Practic e ID: 0001 Bill able Time: 05:00:00 PM Sofia Escobedo [facility] 15:06:57 Evaluati on finding Completed 201704/27/2021 Hematuria , unspecifi ed;Record ed Elsewhere : No Locati on: [facility] So urce: EHR Chron ic: N Practic e ID: 0001 Bill able Time: 12:13:47 PM Sofia Escobedo [facility] 15:06:39 Microsco pic hematuri a [id number] Completed 201504/27/2021 Other microscop ic hematuria ;Recorded Elsewhere : No Locati on: [facility] So urce: EHR Chron ic: N Practic e ID: 0001 Bill able Time: 05:00:00 PM Sofia Escobedo [facility] 15:06:[address] Concept Completed 201704/27/2021 Encntr for general adult medical exam w/o abnormal findings; Recorded Elsewhere : No Locati on: [facility] So urce: EHR Chron ic: N Practic e ID: 0001 Bill able Time: 05:15:00 PM Sofia Escobedo [facility] 1 15:07:00 Mammogra phy abnormal [id number] Completed 201404/27/2021 Unspecifi ed abnormal mammogram ;Recorded Elsewhere : No Locati on: [facility] So urce: EHR Chron ic: N Practic e ID: 0001 Bill able Time: 10:42:23 AM Sofia Escobedo [facility] 1 15:06:46 Blood in urine [id number] Completed 201404/27/2021 Hematuria ;Recorded Elsewhere : No Locati on: [facility] So urce: EHR Chron ic: N Practic e ID: 0001 Bill able Time: 05:45:00 PM Sofia Escobedo [facility] 1 15:06:38 Finding of sensatio n of breast Completed 201504/27/2021 Mastodyni a;Recorde d Elsewhere : No Locati on: [facility] So urce: EHR Chron ic: N Practic e ID: 0001 Bill able Time: 05:00:00 PM Sofia Escobedo [facility] 1 15:06:41 Secondar y amenorrh ea [id number] Completed 201404/27/2021 Secondary amenorrhe a;Recorde d Elsewhere : No Locati on: [facility] So urce: EHR Chron ic: N Practic e ID: 0001 Bill able Time: 03:45:00 PM Sofia Escobedo [facility] 1 15:06:59 Pregnanc y test negative [id number] Completed 201604/27/2021 Encounter for test, result negative; Recorded Elsewhere : No Locati on: [facility] So urce: EHR Chron ic: N Practic e ID: 0001 Bill able Time: 03:30:00 PM Sofia Escobedo [facility] 15:06:53 Adult health examinat ion Completed 201404/27/2021 Routine general medical examinati on at a health care facility; Practice ID: 0001 Sofia Escobedo [facility] 15:06:36 Polyp of corpus uteri [id number] Completed 201604/27/2021 Polyp of corpus uteri;Pra ctice ID: 0001 Sofia Escobedo [facility] 15:06:[address] Concept Completed 201804/27/2021 Encounter for general adult medical exam w abnormal findings; Practice ID: 0001 Sofia Escobedo [facility] 15:06:54 Problem Notes None recorded. Procedures Surgical History Date Name Laterality Status Provider Name and Address Organization Details Recorded Time 05/12/20 24 Date [facility] 10:34:57 12/24/19 24 Most Recent Bone Density completed Sherin [facility] 06/22/2024 10:33:36 05/10/20 23 Date of Last Pap Smear completed Chanelle Monk [facility] 05/10/2023 09:16:28 01/01/20 21 completed [facility] 04/27/2021 16:19:43 01/01/20 21 Date of Last Colonoscopy completed [facility] 04/27/2021 16:19:44 03/18/20 19 completed [facility] 04/27/2021 16:22:31 Breast Biopsy completed [facility] 04/27/2021 16:19:54 Orthopedic Surgery completed [facility] 04/27/2021 16:19:55 drainage of ganglion completed [facility] 04/22/2020 16:15:23 Hysteroscopy completed [facility] 04/22/2020 16:15:29 procedure on knee completed [facility] 04/22/2020 16:15:35 lumpectomy of breast completed [facility] 04/22/2020 16:15:43 procedure on tendon completed [facility] 04/22/2020 16:16:01 Colonoscopy completed [facility] 04/22/2020 16:16:07 Imaging Results Imaging Date Name Status LastModified by Organiz ation Details LastModified Time 04/07/2021 MAMMO, screening, bilateral completed [facility] [address] [place], [address], 04/11/2021 12:16:02 Procedure Notes None recorded. Medical [...] Prescrib ed Elsewher e: Yes [facility] By: ruddy carney DateTime : 07/22/20 15 03:45:00 PM Not Available Not Available Not Available doxepin 10 mg capsule take 1 capsule by oral route 3 times every day 02/21 completed Prescrib ed Elsewher e: Yes Loca tion: [facility] odify By: ruddy carney DateTime : 12/17/19 [...] Elsewher e: No Locat ion: [facility] odify By: ruddy khanuntgianna DateTime : 12/08/19 17 02:18:15 PM Not Available Not Available Not Available tamoxifen 10 mg tablet take 1 tablet by oral route 2 times every day in the morning and evening 04/27 completed Prescrib ed Elsewher e: Yes Loca tion: [facility] odify By: su carney DateTime : 07/20/20 15 02:56:23 PM Not Available Not Available Not Available meclizine 25 mg tablet 25 MG ORALLY TWICE A DAY NEEDED FOR VERTIGO 06/22 completed Not Available Not Available Not Available ranitidin e 150 mg capsule take 1 capsule by oral route 2 times every day 04/27 completed Prescrib ed Elsewher e: Yes [facility] By: ruddy khanuntgianna DateTime : 07/22/20 [...] Prescrib ed Elsewher e: Yes Loca tion: [facility] odify By: ruddy carney DateTime : 12/23/19 15 05:45:00 PM Not Available Not Available Not Available Xolair 150 mg subcutane ous solution 04/22 completed Not Available Not Available Not Available fexofenad ine 04/27 completed Not Available Not Available Not Available Jocelyn 30 mg/5 mL oral suspensio n 02/21 completed Prescrib ed Elsewher e: Yes Loca tion: [facility] odify By: ruddy carney DateTime : 12/17/19 14 04:30:00 PM Not Available Not Available Not Available Zyrtec 10 mg capsule 04/27 completed Prescrib ed Elsewher e: Yes Loca tion: [facility] odify By: whitney Encounberenice r DateTime : 01/18/20 16 05:00:00 PM Not Available Not Available Not Available Xolair 150 mg/mL subcutane ous syringe 04/22 completed Not Available Not Available Not Available Vitals Date Recorded Body height Body mass index (BMI) Body weight Systolic blood pressure Diastolic blood pressure Provider Name and Address Organization Details Last Updated DateTime 04/27/2021 157.48 cm 26 kg/m2 98971.12 g 134 mm[Hg] 73 mm[Hg] Sofia Escobedo [facility] 1 16:19:31 Date Recorded Body height Body mass index (BMI) Body weight Provider Name and Address Organization Details Last Updated DateTime 04/30/2022 160.66 cm 25.3 kg/m2 90013.3 g Sofia Escobedo [facility] 04/30/2022 12:15:13 Date Recorded Systolic blood pressure Diastolic blood pressure Provider Name and Address Organization Details Last Updated DateTime 04/30/2022 122 mm[Hg] 80 mm[Hg] Giovana Sánchez, [facility] [address], [place], [address], [facility] 04/30/2022 12:27:04 Date Recorded Body height Body mass index (BMI) Body weight Systolic blood pressure Diastolic blood pressure Provider Name and Address Organization Details Last Updated DateTime 04/22/2020 162.56 cm 25.4 kg/m2 70485.67 g 125 mm[Hg] 78 mm[Hg] Jazz Thornton [facility] 0 16:23:48 Date Recorded Body height Body mass index (BMI) Body weight Systolic blood pressure Diastolic blood pressure Provider Name and Address Organization Details Last Updated DateTime 05/10/2023 160.66 cm 25 kg/m2 07047.12 g 123 mm[Hg] 72 mm[Hg] Chanelle Monk [facility] 3 09:14:39 Date Recorded Body height Body mass index (BMI) Body weight Systolic blood pressure Diastolic blood pressure Provider Name and Address Organization Details Last Updated DateTime 06/22/2024 160.66 cm 25.8 kg/m2 02296.08 g 122 mm[Hg] 68 mm[Hg] Sherin Amado [facility] 4 10:33:12 Social History Question Answer Notes LastModified by Organizat ion Details LastModified Time Tobacco Smoking Status Never Smoker Chanelle Monk null, [facility] 05/10/2023 09:16:01 Do You Have [...] Or The Highest Degree You Have Received? [id number] Information not available 04/27/2021 What Is Your [...] Anxious, Or Unable To Sleep At Night)? SY71706-3 [email or web address] Information not available 05/10/2023 Do You Use Any Illicit Or Recreational Drugs? No Information not available 04/27/2021 Do You Use Sunscreen Routinely? Yes Information not available 04/27/2021 Have You Used IV Drugs? No Information not available 04/27/2021 Sex: Unknown Functional Status Question Answer Note LastModified by Organizat ion Details LastModified Time Do you have difficulty walking or climbing stairs? No [email or web address] Information not available 05/10/2023 Are you able to walk? YESWOREST Information not available 04/27/2021 Are you able to care for yourself? Yes [email or web address] Information not available 05/10/2023 Do you have difficulty dressing or bathing? No [email or web address] Information not available 05/10/2023 What is your [...] 16:14:13 Father Carcinoma in situ of lung [email or web address] Not available 10:25:23 Father Malignant tumor of colon Not available 2021 12:15:25 Maternal Aunt Disorder of thyroid gland [email or web address] Not available 2019 16:14:07 Maternal Grandfather Screening for cancer Not available 06/22 10:25:23 Medical History Condition [...] SNOMED-CT Code Diagnosis ICD10 Code Diagnosis Note 10294 Giovana Sánchez [facility] [address] [address] 04/22/2020 16:04:58 04/22/2020 16:51:23 Gynecologic examination 93138817 Z01.419 Take Calcium with Vitamin D 12-1500mg daily. Do monthly self breast exams. It is advised to get annual flu shot in the fall and she could obtain at [facility]. If you haven't received the [...] questions call or respond to this email [id number] Giovana Sánchez [facility] [address],[facility] [place] [address] 04/27/2021 16:06:08 04/28/2021 09:38:41 Gynecologic examination 49581577 Z01.419 Take Calcium with Vitamin D 12-1500mg daily. Do monthly self breast exams. It is advised to get annual flu shot in the fall and she could obtain at [facility]. If you haven't received the [...] to this email Pap[facility] Onc Mike Hicks scheduled- -managed by PCP [id number] Giovana Sánchez [facility] [address] [address] 04/30/2022 12:07:12 04/30/2022 12:29:31 Gynecologic examination 27294153 Z01.419 Z11.51 Take Calcium with Vitamin D 12-1500mg daily. Do monthly self breast exams. It is advised to get annual flu shot in the fall and she could obtain at [facility] or [facility]. If you haven't received the [...] PCP Dexa Screen UTD PCP Routine Labs MAD PCPMammo PCP/[facility] n managed [id number] Giovana Sánchez [facility] [address] [address] 05/10/2023 09:02:52 05/10/2023 09:30:55 Gynecologic examination 53829172 Z01.419 Z11.51 Take Calcium with Vitamin D 12-1500mg daily. Do monthly self breast exams. It is advised to get annual flu shot in the fall and she could obtain at [facility] or [facility] care clinic. If you haven't received the [...] PCPRoutine Labs UTD PCPMammo PCP/[facility] n managed [id number] Adolph Danielson MD [place] [address] [address] 06/22/2024 10:23:54 06/22/2024 11:16:50 Gynecologic examination 90761621 Z01.419 Annual gynecologi melissa exam performed. Patient [...] 04/22/2020 1 [employer] - CHOICE (POS II) [id number] Cathi Cruz [id number] Riky Cruz 04/27/2021 1 [employer] - CHOICE (POS II) [id number] Cathi Cruz [id number] Riky Cruz 04/30/2022 1 [employer] - CHOICE (POS II) [id number] Cathi Cruz [id number] Riky Cruz 05/10/2023 1 [place] [id number] Riky Cruz [id number] Riky Cruz 06/22/2024 1 [place] [id number] Riky Liler [id number] Riky Cruz Notes Date Note Type [...] on colonoscopy screening; Diann 2019 Giovana Sánchez [facility]- [address], [place], [address], [facility] 04/22/2020 16:40:35 04/27/2021 text/html Annual Communication And Outreach Manager Post-MenopausalRepo rted bypatient.Menopausa l Symptoms:no menopausal symptoms; [...] within the past year (Still goes to [facility] to get exams & mammo's done.); history of recent colonoscopy; needs to schedule bone density (Has it scheduled) Giovana Sánchez [facility] [address], [place], [address], [facility] 04/27/2021 16:32:07 04/30/2022 text/html Annual Communication And Outreach Manager Post-MenopausalRepo rted bypatient.Menopausa l Symptoms:no menopausal symptoms; [...] recent colonoscopy Giovana Sánchez [address] [place], [address], [facility] 04/30/2022 12:29:06 05/10/2023 text/html Annual Communication And Outreach Manager Post-MenopausalRepo rted bypatient.Menopausa l Symptoms:no menopausal symptoms; [...] history of recent colonoscopy [address] [place], [address], [facility] 05/10/2023 09:30:08 06/22/2024 text/html Annual GYNReport ed bypatient.History:n o gynecologic complaints Urinary symptoms:No hematuria Vulva:No genital lesion Vagina:Normal vaginal discharge Breast:No breast pain; No breast lump Sexual complaints:No sexual complaints; No pain during intercourse Menopausal Symptoms:No menopausal symptoms; Normal vaginal lubrication Psychological symptoms:No depression; No anxiety Preventive measures:Encourage self breast examination; Encourage regular exercise Adolph Danielson MD [address], [place], [address], [facility] 06/22/2024 11:16:35 OBGyn Episode Ob Episode Information Episode Created Date Number of Fetuses Patient Bloodtype Patient rh Status Prepregnancy Weight lbs Domestic Partner Domestic Partner Phone Father Name Software Configuration Engineer Status 04/22/20 20 1 CLOSED Fetus Data [...] Domestic Partner Domestic Partner Phone Father Name Software Configuration Engineer Status 04/22/20 20 1 CLOSED Fetus Data [...]
--- OUTSIDE RECORDS SUMMARY | 2025-01-02 15:42 | XMS_ITS | Encounter Summary ---
Author Organization [facility] Address [address] [place] [address] Phone Care Team Providers Care Automotive Engineering Technician Name Role Phone Grey Ayala MD Primary Care Provider Vicente Duke MD Unavailable Encounter Details Date Type Department Care Team (Late st Contact Info) Description 01/01/2025 Telephone [facility] Bone Marrow Transplant [address] [facility] Floor 6 [place] [address] Elizabeth Ford, SANDY [address] [place] [address] Social History Tobacco Use Types Packs/Day Years Used Date Smoking Tobacco: Never Alcohol Use Standard Drinks/Week Comments No 0 (1 standard drink = 0.6 oz pur e alcohol) [facility] Utilities Answer Date Recorded In the past 12 months has [employer], gas, oil, or water [employer] threatened to shut off services in your [...] often do you attend chur ch or orthodox services? 1 to 4 times per year 11/23/2024 Do you belong to any clubs o r organizations such as protestant groups, unions, fraternal or athletic groups, or [...] any time in the past 12 m [facility], were you homeless or living in a custodial (including now)? No 11/23/2024 Personal Safety Answer Date Recorded Have you ever been in or are you currently in a harmful physical or emotional relationship or is someone making you feel afraid or unsafe? 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 No itching, or shortness of breath. She is concerned it could be an allergic rash. Also her vaginal area is red and this happened last time she had a blood stream infection. No dysuria or vaginal symptoms. Recommendation: I recommended diphenhydramine 25mg now and then again in 4 hours if rash persists. I recommended ED visit for any shortness of breath should it occur. She will follow-up with the exchange if new/worsening symptoms develop. Primary oncologist team updated via [employer]. Elizabeth Ford NP documented in this encounter Plan of Treatment Not on file documented as of this encounter Visit Diagnoses Not on filedocumented in this encounter Care Teams Automotive Engineering Technician Relationship Specialty Start Date End Date Grey Ayala MD [address] [facility] [address] [place] [address] PCP - General 12/27/17 Vicente Duke MD [address] [facility] [address] DIV [place] [address] Medical Oncologist/Wrapper Sheeter Internal Medicine 10/28/24 documented as of this encounter
--- OUTSIDE RECORDS SUMMARY | 2025-01-02 15:42 | XMS_ITS | Encounter Summary ---
Author Organization [facility] Address [address] [place] [address] Phone Care Team Providers Care Sheet Ironworker Name Role Phone Grey Ayala MD Primary Care Provider Vicente Duke MD Unavailable Encounter Details Date Type Department Care Team (Late st Contact Info) Description 01/01/2025 Orders Only [facility] Bone Marrow Transplant [facility] Floor 6 [place] [address] Peter Estrada RN AML (acute myeloid leukemia) in relapse (HCC) (Primary Dx); Acute myeloid leukemia not having achieved remission (HCC) Social History Tobacco Use Types Packs/Day Years Used Date Smoking Tobacco: Never Alcohol Use Standard Drinks/Week Comments No 0 (1 standard drink = 0.6 oz pur e alcohol) [facility] Utilities Answer Date Recorded In the past 12 months has [employer] gas, oil, or water company threatened to [...] often do you attend chur ch or mormon services? 1 to 4 times per year 11/23/2024 Do you belong to any clubs o r organizations such as orthodoxy groups, unions, fraternal or athletic groups, or [...] time in the past 12 m [facility], were you homeless or living in a snf (including now)? No 11/23/2024 Personal Safety Answer Date Recorded Have you ever been in or are you currently in a harmful physical or emotional relationship or is someone making you feel afraid or unsafe? Denies 11/14/2024 Comments No Sex and Gender Information Value Date Recorded Sex Assigned at Not on file Legal Sex Female 2:12 AM SR. MEDIA MANAGER Gender Identity Not on file Sexual Orientation Not on file documented as of this encounter Plan of Treatment Scheduled Orders Name Type Priority Associated Diagnoses Orde r Schedule CBC with auto differential Lab Routine Acute myeloid leukemia not having achieved remission (HCC) Expected: 01/01/2025, Expires: 01/01/2026 documented as of this encounter Visit Diagnoses Diagnosis AML (acute myeloid leukemia) in relapse (HCC)- Primary Acute myeloid leukemia, in relapse Acute myeloid leukemia not having achieved remission (HCC) documented in this encounter Care Teams Sheet Ironworker Relationship Specialty Start Date End Date Grey Ayala MD [address] [email or web address] [address] [place] [address] PCP - General 12/27/17 Vicente Duke MD [address] [facility] [address] DIV IM BONE [place] [address] Medical Oncologist/Mortgage Professional Internal Medicine 10/28/24 documented as of this encounter
--- OUTSIDE RECORDS SUMMARY | 2025-01-02 15:42 | XMS_ITS ---
Author Organization [facility] al Address [address] [place] [address] Care Team Providers Care Call Out Clerk Name Role Phone Grey Ayala MD Primary Care Provider Vicente Duke MD Unavailable Active Problems Patient Care Coordination No te Formatting of this note is d ifferent from the original. [facility] Inpatient Care Coordination Diagnosis Poss AML hx of breast CA Reason for Admission Leukocytosis- transfer from [facility]/[place] HCT/IEC Notes Discharge Planning Patient Education Completed [x] Discharge Disposition []SNF/Rehab: [][facility] [x]Home - distance from [facility] 30 min Caregiver: Riky (spouse) Requests Sent to []Case Management: []MAs: []Pharmacy PA team: Specialty Medications Med Pharmacy Refills Pt Aware [] Post-Discharge Follow-Up [facility] Local Oncologist Contact Name: Nurse: Phone: Fax: [...] resolved on admission. BCx x2 drawn at [facility] RPP negative, UA noninfectious, CXR clear. After admission, developed hypotension to 90s/40s. S/p 1L NS in [facility] 2L here. Lactate downtrended to normal (peaked [...] tissue infection or drainable fluid collection - Collar Packer consulted, no surgical intervention - 1 of 2 blood cultures with Pseudomonas Aeruginosa. Carrasco-sensitive. - Removed nontunneled RIJ CVC on 11/16 with planned at least 24h line holiday - Perineal erythema spreading 11/18. Add topical miconazole and change fluconazole to micafungin for possible dexter. Repeat CT without fluid collection or gas formation. Collar Packer has re-evaluated. - Dermatology also consulted. Swab also growing Pseudomonas, Dexter. - Recurrent fevers on 11/25, ID, dermatology [...] ChromoSeq: DNMT3A (37%), TET2 (49%), NPM1 (39%), [id number], FLT3-ITD (21%), FLT3-ITD AR 0.4; MyeloSeq: DNMT3A [...] ChromoSeq: DNMT3A (37%), TET2 (49%), NPM1 (39%), [id number], FLT3-ITD (21%), FLT3-ITD AR 0.4; MyeloSeq: DNMT3A (48%), TET2 (47%), NPM1 (50%), KRAS (8%), FLT3-ITD (21%) - s/p Iduction w/ FLAG-CAR[place] + mido, d1: 10/02/24, s/p Midostaurin d8-21. [...] daily Assessment & Plan (11/06/2024 9:14 PM REHAB SERVICES AIDE): Continue citalopram 20 mg daily AML (acute myeloblastic leukemia) 10/02/2024 Leucocytosis 09/29/2024 Anemia 09/29/2024 Thrombocytopenia 09/29/2024 Lymphadenopathy 09/29/2024 Diplopia 09/29/2024 Acute kidney injury 09/29/2024 Elevated liver enzymes 09/29/2024 History of left breast cancer 01/22/2019 Hives 04/12/2014 Overview (12/06/2016): Urticaria Assessment & Plan (11/22/2024 12:17 PM CDT): -Takes fexofenadine 90 mg daily at home, on loratadine here Assessment & Plan (11/06/2024 9:15 PM REHAB SERVICES AIDE): akes fexafenadine 90 mg daily at home, [...] Previous hospitalization with G-III mucositis and oral dexter mangaed with MMW, nystatin and dexa, was unable to tolerate PO and was briefly on TPN. -MMW + nystatin PRN Assessment & Plan (11/07/2024 4:20 PM REHAB SERVICES AIDE): - C1 was complicated with G-III mucositis and oral dexter managed with MMW, nystatin and dexa, was unable to tolerate PO and was briefly on TPN due to ileus - Will monitor during this admission. No evidence of mucositis now. Autoimmune thyroiditis 07/08/2012 Overview (12/07/2016): Autoimmune thyroiditis Palpitations 07/08/2012 Overview (12/07/2016): Palpitations Current Treatment and Therapy Plans Adult BMT/ONC - Blood and/or Platelet Administration for Outpatient* Plan Start Date:11/17/2024 Plan Provider:Vicente Duke MD Linked Problems Acute myeloid leukemia not h aving achieved remission (HCC) Treatment Medications No medications scheduled. Gilteritinib PO 28 Day Cycles - AML* Plan Start Date:11/12/2024 Plan Provider:Vicente Duke MD Linked Problems Acute myeloid leukemia not h aving achieved remission (HCC) Treatment Medications Current Day (Day 1 , Cycle 1 - Planned for 11/12/2024) Next Day (Day 8, Cycle 1 - Planned for 11/19/2024) gilteritinib (XOSPATA) No medications scheduled. No medications scheduled. Venetoclax / Decitabine (D1-5) 28 Day Cycles - AML* Plan Start Date:01/03/2025 Plan Provider:Vicente Duke MD Linked Problems Acute myeloid leukemia not h aving achieved remission (HCC) Treatment Medications Current Day (Prepa ration - Planned for 01/03/2025) Next Day (Day 1, Cycle 1 - Planned for 01/04/2025) decitabine (DACOGEN)decitabine (DACOGEN) IVPBvenetoclax (VENCLEXTA) No medications scheduled. decitabine (DACOGEN) 32 mg in sodium chloride 0.9% 100 mL IVPBvenetoclax (VENCLEXTA) 100 mg tablet Other Current Plans BMT Adult Blood and Platelet Administration for Inpatient* Plan Start Date: 09/30/2024 Plan Provider:Marcus Veragra MD Linked Problems Other pancytopenia (HCC) Treatment Medications No medications scheduled. Past Treatment and Therapy Plans Oncology Chemotherapy Treatment Plan Name Start Date Discontinue Date Treatment Medications Discontinue Reason Plan Provider Cycles INPT - FLAG-[place]+mido : (Fludarabine / High-Dose Cytarabine / Filgrastim-sn dz / IDArubicin / Midostaurin) - AML 5 12/08/2024 cytarabine (MARITZA-C) IVPB (for doses <1,000 mg/m2)fludarabine (FLUDARA) IVPBgilteritinib (XOSPATA)IDArubici n (IDAMYCIN)midostau rin (RYDAPT) Therapy Complete Marcus Vergara MD 2 of 2 cycles started Lifetime Dose Tracking * Chemical Lifetime Dose Automatic Entry Manual Entr y idarubicin 52.595 mg/m2 (87 mg) 52.595 mg/m2 (87 mg) 0 mg/m2 (0 mg) Fluoro Time 0.1 minutes 0.1 minutes 0 minutes doxorubicin isotoxic equivalent (Please manually verify calculation) 262.977 mg/m2 (435 mg) 262.977 mg/m2 (435 mg) 0 mg/m2 (0 mg) Air kerma at the reference point (Ka,r) 6 mGy 6 mGy 0 mGy DLP 3,215 mGycm 3,215 mGycm 0 mGycm
--- OUTSIDE RECORDS SUMMARY | 2025-01-02 15:42 | XMS_ITS | Clinical Summary ---
Author Organization [employer] 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 Gender Identity Not on file Sexual Orientation Not on file Plan of Treatment Health Maintenance Due Date Last Done Comments DTAP/TDAP/TD VACCINES (1 - Tdap) 1983 HPV/Cotest (21-29) 1985 CERVICAL CANCER SCREENING 1994 HPV/Cotest (30-65) 1994 PAP SMEAR 1994 BREAST CANCER SCREENING 2004 COLORECTAL SCREENING 2009 Colorectal Cancer Screening 2009 FIT-DNA Q 3 years 2009 FIT/FOBT Q 1 year 2009 Flex Sig/CT Colonography Q 5 years 2009 ZOSTER VACCINE (1 of 2) 2014 INFLUENZA VACCINE (#1) 2024 RSV VACCINE (60+ or ) (1 - 1-dose 75+ series) 2039 HEPATITIS B VACCINES Aged Out No long er eligible based on patient's age to complete this topic
--- OUTSIDE RECORDS SUMMARY | 2025-01-02 15:42 | XMS_ITS | Encounter Summary ---
Author Organization [facility] Healthcare Address [address] [place] [address] Care Team Providers Care Motion Study Engineer Name Role Phone Grey Ayala MD Primary Care Provider Vicente Duke MD Unavailable Encounter Details Date Type Department Care Team (Late st Contact Info) Description 01/01/2025 10:30 AM CDT Lab [facility] - Lab Collection [address] [facility] [address] [place] [address] Acute myeloid leukemia not having achieved remission (HCC) Social History Tobacco Use Types Packs/Day Years Used Date Smoking Tobacco: Never Alcohol Use Standard Drinks/Week Comments No 0 (1 standard drink = 0.6 oz pur e alcohol) [facility] Utilities Answer Date Recorded In the past 12 months has [employer], gas, oil, or [employer] threatened to shut off services in your [...] week 11/23/2024 How often do you attend [facility] or restorationist services? 1 to 4 times per year 11/23/2024 Do you belong to any clubs o r organizations such as faith groups, unions, fraternal or athletic groups, or [...] any time in the past [address] [facility], were you homeless or living in a senior care (including now)? No 11/23/2024 Personal Safety Answer Date Recorded Have you ever been in or are you currently in a harmful physical or emotional relationship or is someone making you feel afraid or unsafe? 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 73 m2 Comment: [...] OR DERABLES Final Result DAVID GARCÍA [facility] [place] [address] * (ABNORMAL) Differential, auto (01/01/2025 9:52 AM CDT) [facility] Neutrophil abs 1.86 1.50 - 6.50 K/cumm Comment:Testing performed by : [facility], [address] [place] [phone] Lymphocyte abs 0.69(L) 0.80 - 3.30 K/cumm DAVID GARCÍA Comment:Testing performed by : [facility], [address] [place] [phone] Monocyte abs 0.40 0.20 - 0.80 K/cumm DAVID GARCÍA Comment:Testing performed by : [facility], [address] [place] [phone] Eosinophil abs 0.21 0.00 - 0.50 K/cumm [facility] Comment:Testing performed by : [facility], [address] [place] [phone] Basophil abs 0.05 0.00 - 0.10 K/cumm [facility] Comment:Testing performed by : [facility], [address] [place] [address] Neutrophil pct 57.9 % [facility] Comment: Interpretive Data Percent cell count reference ranges are not reported, since discordance with absolute values may lead to misinterpretation of CBC data. Current Interpretive Data was last revised on 2017. Testing performed by: [facility], [address] [place] [address] Lymphocyte pct 21.5 % [facility] Comment: Interpretive Data Percent cell count reference ranges are not reported, since discordance with absolute values may lead to misinterpretation of CBC data. Current Interpretive Data was last revised on 2017. Testing performed by: [facility], [address] [place] [address] Monocyte pct 12.6 % [facility] Comment: Interpretive Data Percent cell count reference ranges are not reported, since discordance with absolute values may lead to misinterpretation of CBC data. Current Interpretive Data was last revised on 2017. Testing performed by: [facility], [address] [place] [phone] Eosinophil pct 6.4 % [facility] Comment: Interpretive Data Percent cell count reference ranges are not reported, since discordance with absolute values may lead to misinterpretation of CBC data. Current Interpretive Data was last revised on 2017. Testing performed by: [facility], [address] [place] [phone] Basophil pct 1.6 % [facility] Comment: Interpretive Data Percent cell count reference ranges are not reported, since discordance with absolute values may lead to misinterpretation of CBC data. Current Interpretive Data was last revised on 2017. Testing performed by: [facility], [address] [place] [phone] Blood 01/01/2025 9:52 AM CDT 01/01/2025 10:03 AM CDT Vicente Mandujano MD LAB BLOOD OR DERABLES Final Result [facility] Department [place] [address] * (ABNORMAL) CBC with auto differential (01/01/2025 9:52 AM CDT) WBC 3.21(L) 3.80 - 9.90 K/cumm Comment:Testing performed by : [facility], [address] [place] [address] Hgb 10.4(L) 11.9 - 15.5 g/dL [facility] Comment:Testing performed by : [facility], [address] [place] [address] Hct 30.4(L) 35.6 - 45.5 % [facility] Comment:Testing performed by : [facility], [address] [place] [address] Plt 166 150 - 400 K/cumm [facility] Comment:Testing performed by : [facility], [address] [place] [address] MPV 7.1 6.8 - 10.4 fL [facility] Comment:Testing performed by : [facility], [address] [place] [address] RBC 3.26(L) 3.90 - 5.20 M/cumm [facility] Comment:Testing performed by : [facility], [address] [place] [address] MCV 93.3 81.3 - 96.4 fL [facility] Comment:Testing performed by : [facility], [address] [place] [address] MCH 31.9 27.1 - 33.3 pg [facility] Comment:Testing performed by : [facility], [address] [place] [phone] MCHC 34.2 32.3 - 35.7 g/dL [facility] Comment:Testing performed by : [facility], [address] [place] [phone] RDW CV 22.9(H) 11.1 - 14.9 % [facility] Comment:Testing performed by : [facility], [address] [place] [phone] NRBC abs 0.00 0.00 - 0.01 K/cumm [facility]ID [facility] Comment:Testing performed by : [facility], [address] [place] [phone] Blood 01/01/2025 9:52 AM CDT 01/01/2025 10:03 AM CDT Vicente Mandujano MD LAB BLOOD OR DERABLES Final Result [facility] Department [place] [address] * Comprehensive metabolic panel (01/01/2025 9:52 AM CDT) Sodium 140 135 - 145 mmol/L Potassium, pl 4.2 3.3 - 4.9 mmol/L [facility] Chloride 106 97 - 110 mmol/L [facility] CO2 25 22 - 32 mmol/L [facility] Anion gap 9 2 - 15 mmol/L [facility] BUN 14 6 - 25 mg/dL [facility] Creatinine 0.85 0.60 - 1.10 mg/dL [facility] Glucose 94 70 - 199 mg/dL [facility] Comment: Interpretive Data Fasting glucose >/= [...] 2022. Calcium 8.7 8.5 - 10.3 mg/dL [facility] Bilirubin, total 0.2 0.1 - 1.2 mg/dL [facility] Protein, pl 6.6 6.5 - 8.5 g/dL [facility] Albumin 3.8 3.5 - 5.0 g/dL [facility] Alk phos 120 40 - 130 Units/L [facility] ALT 19 7 - 45 Units/L [facility] AST 31 10 - 45 Units/L [facility] Blood 01/01/2025 9:52 AM CDT 01/01/2025 10:07 AM CDT Vicente Mandujano MD LAB BLOOD OR DERABLES Final Result [facility] Department [place] [address] * (ABNORMAL) Lactate dehydrogenase (LD) (01/01/2025 9:52 AM CDT) Lactate dehydrogenase (LDH) 296(H) 100 - 250 Units/L Blood 01/01/2025 9:52 AM CDT 01/01/2025 10:07 AM CDT Vicente Mandujano MD LAB BLOOD OR DERABLES Final Result [facility] [place] [address] * Uric acid (01/01/2025 9:52 AM CDT) Uric acid 3.1 2.5 - 7.0 mg/dL Blood 01/01/2025 9:52 AM CDT 01/01/2025 10:07 AM CDT Vicente Mandujano MD LAB BLOOD OR DERABLES Final Result Performing Organization Address City/[facility] Co de Phone Number [place] [address] * Magnesium (01/01/2025 9:52 AM CDT) Magnesium 2.0 1.4 - 2.5 mg/dL Blood 01/01/2025 9:52 AM CDT 01/01/2025 10:07 AM CDT Vicente Mandujano MD LAB BLOOD OR DERABLES Final Result Performing Organization Address [facility] de Phone Number [facility] [place] [address] * Phosphorus (01/01/2025 9:52 AM CDT) Phosphorus, pl 3.9 2.3 - 4.5 mg/dL Blood 01/01/2025 9:52 AM CDT 01/01/2025 10:07 AM CDT Vicente Mandujano MD LAB BLOOD OR DERABLES Final Result Performing Organization Address [facility] Co de Phone Number [facility] [place] [address] * aPTT (01/01/2025 9:52 AM CDT) aPTT [...] OR DERABLES Final Result Performing Organization Address [facility] Co de Phone Number [facility] [place] [address] * Fibrinogen (01/01/2025 9:52 AM CDT) Fibrinogen 347 170 - 400 mg/dL Blood 01/01/2025 9:52 AM CDT 01/01/2025 10:34 AM CDT Vicente Mandujano MD LAB BLOOD OR DERABLES Final Result Performing Organization Address [facility] [place] [address] * Protime-INR (01/01/2025 9:52 AM CDT) Pathologist [facility] PT 12.6 9.7 - 13.0 sec INR 1.16 0.90 - 1.20 [facility] Comment: Interpretive data Oral anticoagulant therapeutic ranges: Venous thromboembolism prophylaxis or treatment: 2.0-3.0 CARDIOLOGY Standard range: 2.0-3.0 High-intensity range: 2.5-3.5 Refer to indication-specific guidelines for appropriate target ranges for prosthetic heart valve replacement. Current interpretive data was last revised on 2019. Blood 01/01/2025 9:52 AM CDT 01/01/2025 10:34 AM CDT Vicente Mandujano MD LAB BLOOD OR DERABLES Final Result Performing Organization Address [facility] Co de Phone Number [facility] [place] [address] * Type and screen (01/01/2025 9:52 AM CDT) Bing, indirect Negative ABO Rh A Positive [facility] Blood 01/01/2025 9:52 AM CDT 01/01/2025 10:13 AM CDT Narrative DAVID GARCÍA - 01/01/2025 11:03 AM CDT Has the patient had Daratumumab or Isatuximab in the past 6 months?->No Vicente Mandujano MD LAB BLOOD BA NK TEST ORDERABLES Final Result [facility] [place] [address] documented in this encounter Visit Diagnoses Diagnosis Acute myeloid leukemia not having achieved remission (HCC) documented in this encounter Orders Appointment Requests Count Last Ordered Date Fi rst Ordered Date ONCBCN LAB APPOINTMENT 1 01/01/2025 documented in this encounter Care Teams Motion Study Engineer Relationship Specialty Start Date End Date Grey Ayala MD [address] [place] [address] PCP - General 12/27/17 Vicente Duke MD [address] [facility] [address] DIV [place] [address] Medical Oncologist/Raw Hide Trimmer Internal Medicine 10/28/24 documented as of this encounter
== END 2025-01-02 03:22 | disposition home or self-care (01) ==
PROVIDERS: Emergency Provider Emergency Medicine; PCP Family Medicine
DX: L50.0 Allergic urticaria (principal); K58.9 Irritable bowel syndrome, unspecified; F41.9 Anxiety disorder, unspecified; Z85.3 Personal history of malignant neoplasm of breast; Z96.653 Presence of artificial knee joint, bilateral; Z79.60 Long term (current) use of unspecified immunomodulators and immunosuppressants; Z79.899 Other long term (current) drug therapy
CPT/HCPCS: 96374; 96375; 99284; J1200; J2919